=== PATIENT | male | born 1950 | race Caucasian/White ===

== ENCOUNTER 2018-02-04 08:46 | Inpatient (IN) | payer MEDICARE, OTHER ==
[2018-02-04] MEDS ORDERED: methylPREDNISolone SOD SUCCI 125 MG/2 ML VIAL IV STA (09:09)
[2018-02-04] MEDS ORDERED: IPRATROPIUM-ALBUTEROL 3 ML NEB INHALATION STA (09:09)
--- NOTE | 2018-02-04 09:11 | ED ---
General Adult HPI - General Chief complaint: Shortness of Breath Stated complaint: SOB Time Seen by Provider: 02/04/18 08:57 Source: patient, family, RN notes reviewed Mode of arrival: wheelchair Limitations: no limitations - History of Present Illness Initial comments: Patient is a pleasant 67-year-old male presenting to the emergency department with difficulty in breathing. Symptoms have progressed with the past several days. Patient does have cough with occasional clear sputum. Symptoms are similar to previous COPD. No chest pain. No leg swelling. No fevers. - Related Data Home Medications Medication Instructions Recorded Confirmed Albuterol Nebulized [Ventolin 2.5 mg INHALATION RT-TID 02/04/18 02/04/18 Nebulized] Benzonatate [Tessalon Perles] 200 mg PO Q8H 02/04/18 02/04/18 Budesonide/Formoterol Fumarate 2 puff INHALATION RT-BID 02/04/18 02/04/18 [Symbicort 160-4.5 Mcg Inhaler] Gabapentin [Neurontin] See Taper PO DIRECTED 02/04/18 02/04/18 Ipratropium/Albuterol Sulfate 1 puff INHALATION RT-TID 02/04/18 02/04/18 [Combivent Respimat Inhaler] Ketorolac 0.5% Ophth Soln [Acular] 1 drops BOTH EYES TID 02/04/18 02/04/18 LORazepam [Ativan] 1 mg PO TID PRN 02/04/18 02/04/18 Ofloxacin 0.3% Ophth Soln [Ocuflox 1 drops RIGHT EYE TID 02/04/18 02/04/18 Ophth Soln] Sertraline [Zoloft] 100 mg PO DAILY 02/04/18 02/04/18 Zolpidem [Ambien] 10 mg PO HS PRN 02/04/18 02/04/18 predniSONE 20 mg PO BID 02/04/18 02/04/18 prednisoLONE ACETATE 1% OPHTH 1 drops BOTH EYES TID 02/04/18 02/04/18 [Pred Forte 1%] Allergies Allergy/AdvReac Type Severity Reaction Status Date / Time No Known Allergies Allergy Verified 02/04/18 09:17 Review of Systems ROS Statement: Those systems with pertinent positive or pertinent negative responses have been documented in the HPI. ROS Other: All systems not noted in ROS Statement are negative. Constitutional: Denies: fever Eyes: Denies: eye pain ENT: Denies: ear pain Respiratory: Reports: cough, dyspnea Cardiovascular: Denies: chest pain Endocrine: Reports: fatigue Gastrointestinal: Denies: abdominal pain Genitourinary: Denies: dysuria Musculoskeletal: Denies: back pain Skin: Denies: rash Neurological: Denies: weakness Past Medical History Past Medical History: COPD, Hyperlipidemia, Sleep Apnea/CPAP/BIPAP Additional Past Medical History / Comment(s): RA, sepsis from pneumonia in October 2017 History of Any Multi-Drug Resistant Organisms: None Reported Additional Past Surgical History / Comment(s): cataract sx, left knee sx Past Psychological History: Anxiety, Depression Smoking Status: Former smoker Past Alcohol Use History: Occasional Past Drug Use History: None Reported General Exam Limitations: no limitations General appearance: alert Head exam: Present: atraumatic Eye exam: Present: normal appearance, PERRL ENT exam: Present: normal oropharynx Neck exam: Present: normal inspection Respiratory exam: Present: wheezes, rhonchi Cardiovascular Exam: Present: tachycardia GI/Abdominal exam: Present: soft. Absent: tenderness Extremities exam: Present: normal inspection. Absent: pedal edema, calf tenderness Neurological exam: Present: alert Psychiatric exam: Present: normal affect, normal mood Skin exam: Present: normal color Course Vital Signs 02/04/18 02/04/18 02/04/18 08:48 09:02 09:05 Temperature 97.8 F Pulse Rate 117 H 112 H Respiratory 24 20 20 Rate Blood Pressure 115/66 128/78 O2 Sat by Pulse 73 L 95 Oximetry 02/04/18 02/04/18 02/04/18 09:14 09:34 09:46 Temperature 100.8 F H Pulse Rate 108 H 109 H Respiratory Rate Blood Pressure O2 Sat by Pulse Oximetry - Reevaluation(s) Reevaluation #1: 02/04/18 10:17 Patient does meet sepsis criteria diagnosed at 10:17 AM. Blood culture and lactic acid have been ordered. IV antibiotics will be ordered. EKG Findings - EKG Comments: EKG Findings:: Sinus tachycardia 113. [place] 126. QRS 84. QT 332. QTC 455. Right axis. Low QRS voltage. No acute ST change. Medical Decision Making - Medical Decision Making Patient reevaluated and somewhat improved. Patient still appears somewhat short of breath. Patient states he does feel much better than when he arrived. Case was discussed in detail with Dr. jacobson, who will admit for Dr. Cheema. - Lab Data Result diagrams: 02/04/18 09:15 02/04/18 09:15 Lab Results 02/04/18 02/04/18 02/04/18 Range/Units 09:15 09:15 09:15 WBC 13.7 H (3.8-10.6) k/uL RBC 4.39 (4.30-5.90) m/uL Hgb 13.9 (13.0-17.5) gm/dL Hct 41.9 (39.0-53.0) % MCV 95.5 (80.0-100.0) fL MCH 31.6 (25.0-35.0) pg MCHC 33.1 (31.0-37.0) g/dL RDW 14.6 (11.5-15.5) % Plt Count 368 (150-450) k/uL Neutrophils % 82 % Lymphocytes % 8 % Monocytes % 7 % Eosinophils % 2 % Basophils % 1 % Neutrophils # 11.2 H (1.3-7.7) k/uL Lymphocytes # 1.0 (1.0-4.8) k/uL Monocytes # 0.9 (0-1.0) k/uL Eosinophils # 0.3 (0-0.7) k/uL Basophils # 0.1 (0-0.2) k/uL PT 10.4 (9.0-12.0) sec INR 1.1 (<1.2) APTT 22.0 (22.0-30.0) sec Sodium 136 L (137-145) mmol/L Potassium 4.1 (3.5-5.1) mmol/L Chloride 99 (98-107) mmol/L Carbon Dioxide 25 (22-30) mmol/L Anion Gap 12 mmol/L BUN 22 H (9-20) mg/dL Creatinine 0.72 (0.66-1.25) mg/dL Est GFR (CKD-EPI)AfAm >90 (>60 ml/min/1.73 sqM) Est GFR (CKD-EPI)NonAf >90 (>60 ml/min/1.73 sqM) Glucose 113 H (74-99) mg/dL Plasma Lactic Acid Steven (0.7-2.0) mmol/L Calcium 9.3 (8.4-10.2) mg/dL Total Bilirubin 0.5 (0.2-1.3) mg/dL AST 25 (17-59) U/L ALT 38 (21-72) U/L Alkaline Phosphatase 93 (38-126) U/L Total Protein 6.2 L (6.3-8.2) g/dL Albumin 3.5 (3.5-5.0) g/dL 02/04/18 Range/Units 09:15 WBC (3.8-10.6) k/uL RBC (4.30-5.90) m/uL Hgb (13.0-17.5) gm/dL Hct (39.0-53.0) % MCV (80.0-100.0) fL MCH (25.0-35.0) pg MCHC (31.0-37.0) g/dL RDW (11.5-15.5) % Plt Count (150-450) k/uL Neutrophils % % Lymphocytes % % Monocytes % % Eosinophils % % Basophils % % Neutrophils # (1.3-7.7) k/uL Lymphocytes # (1.0-4.8) k/uL Monocytes # (0-1.0) k/uL Eosinophils # (0-0.7) k/uL Basophils # (0-0.2) k/uL PT (9.0-12.0) sec INR (<1.2) APTT (22.0-30.0) sec Sodium (137-145) mmol/L Potassium (3.5-5.1) mmol/L Chloride (98-107) mmol/L Carbon Dioxide (22-30) mmol/L Anion Gap mmol/L BUN (9-20) mg/dL Creatinine (0.66-1.25) mg/dL Est GFR (CKD-EPI)AfAm (>60 ml/min/1.73 sqM) Est GFR (CKD-EPI)NonAf (>60 ml/min/1.73 sqM) Glucose (74-99) mg/dL Plasma Lactic Acid Steven 0.8 (0.7-2.0) mmol/L Calcium (8.4-10.2) mg/dL Total Bilirubin (0.2-1.3) mg/dL AST (17-59) U/L ALT (21-72) U/L Alkaline Phosphatase (38-126) U/L Total Protein (6.3-8.2) g/dL Albumin (3.5-5.0) g/dL - Radiology Data Radiology results: image reviewed (Chest x-ray shows COPD. Interstitial lung disease.) Critical Care Time Critical Care Time: Yes Total Critical Care Time: 32 Disposition Clinical Impression: Acute exacerbation of chronic obstructive airways disease, Sepsis Disposition: ADMITTED IP TO THIS HOSP Is patient prescribed a controlled substance at d/c from ED?: No Referrals: Marina Cheema MD [Primary Care Provider] - 1-2 days Decision Time: 10:19
[2018-02-04 09:40] LABS: INR 1.1 (<1.2); Prothrombin Time 10.4 sec (9.0-12.0)
[2018-02-04 09:42] LABS: Basophils # (A) 0.1 k/uL (0-0.2); Basophils % (A) 1 %; Eosinophils # (A) 0.3 k/uL (0-0.7); Eosinophils % (A) 2 %; HCT 41.9 % (39.0-53.0); HGB 13.9 gm/dL (13.0-17.5); Lymphocytes % (A) 8 %; MCH 31.6 pg (25.0-35.0); MCHC 33.1 g/dL (31.0-37.0); MCV 95.5 fL (80.0-100.0); Mean Platelet Volume 6.7; Monocytes # (A) 0.9 k/uL (0-1.0); Monocytes % (A) 7 %; Neutrophils # (A) 11.2 k/uL (1.3-7.7); Neutrophils % (A) 82 %; Platelet Count 368 k/uL (150-450); RBC 4.39 m/uL (4.30-5.90); RDW 14.6 % (11.5-15.5); WBC 13.7 k/uL (3.8-10.6)
--- NOTE | 2018-02-04 09:42 | XR ---
EXAMINATION TYPE: XR chest 2V DATE OF EXAM: 02/04/2018 COMPARISON: NONE HISTORY: Difficulty breathing, cough and COPD TECHNIQUE: Frontal and lateral views of the chest are obtained. FINDINGS: Prominent lung volumes are compatible with COPD. Interstitium is increased. Heart is thoug ht to be enlarged although patient is rotated. Azygos lobe noted incidentally. No evident pneumothora x or pleural effusion. Nodular appearance present in the left upper lobe as well as mid and lower mirella g laterally in the left may be related to callus formation and rib fractures. Difficult to exclude an underlying mass. There are Cardiac leads. IMPRESSION: Prior rib fractures with nodularity in the left lung, difficult to exclude lung mass. Co mparison with old films would be of benefit if available or alternatively consider short interval fol low-up or chest CT. Suspect COPD, interstitial lung disease. Cardiomegaly. Correlate to exclude pulmo nary venous hypertension and interstitial edema.
[2018-02-04 09:55] LABS: ALT 38 U/L (21-72); AST 25 U/L (17-59); Albumin 3.5 g/dL (3.5-5.0); Alkaline Phosphatase 93 U/L (38-126); Anion Gap 12 mmol/L; Blood Urea Nitrogen 22 mg/dL (9-20); Calcium 9.3 mg/dL (8.4-10.2); Carbon Dioxide 25 mmol/L (22-30); Chloride 99 mmol/L (98-107); Glucose 113 mg/dL (74-99); Potassium 4.1 mmol/L (3.5-5.1); Sodium 136 mmol/L (137-145); Total Bilirubin 0.5 mg/dL (0.2-1.3); Total Protein 6.2 g/dL (6.3-8.2)
[2018-02-04 10:19] LABS: Creatine Kinase MB 0.7 ng/mL (0.0-2.4); Troponin I 0.013 ng/mL (0.000-0.034)
[2018-02-04] MEDS ORDERED: IPRATROPIUM-ALBUTEROL 3 ML NEB INHALATION PRN (10:19)
[2018-02-04] MEDS ORDERED: PNEUMONIA PROTOCOL UTILIZED 1 EACH MISC PO PRN (10:19)
[2018-02-04] MEDS ORDERED: cefTRIAXone IN SWFI 1,000 MG/10 ML SYRINGE IVP STA (10:19)
[2018-02-04] MEDS ORDERED: AZITHROMYCIN 500 MG in SODIUM CHLORIDE 0.9% 250 ML IVPB STA (10:19)
[2018-02-04] MEDS: IPRATROPIUM-ALBUTEROL 3 ML NEB INHALATION SCH ×3 (11:22→19:51)
[2018-02-04] MEDS: SODIUM CHLORIDE 0.9% 1,000 ML IV SCH ×2 (11:47→22:35)
[2018-02-04] MEDS: methylPREDNISolone SOD SUCCI 125 MG/2 ML VIAL IV SCH ×3 (11:48→23:39)
[2018-02-04 12:01] VITALS: BMI 26.6
--- NOTE | 2018-02-04 12:34 | P.CNPUL ---
History of Present Illness Consult date: 02/04/18 Requesting physician: Jerome Contreras Reason for consult: dyspnea, COPD Chief complaint: Shortness of breath, cough congestion History of present illness: This is a very pleasant 67-year-old male patient who follows with Dr. Cheema as her his primary care physician. He has a history of insomnia anxiety and low back pain. He also has a history of interstitial lung disease and chronic obstructive pulmonary disease and follows with Dr. Weaver in our office for the same. His FEV1 value is 46% of predicted. He is maintained on albuterol, Combivent, Symbicort in the outpatient setting. He is both oxygen and steroid dependent on prednisone 10 mg daily. He quit smoking approximate 6 years ago. He was last seen 01/10/2018 at that time his COPD he had been under fairly good control. He presented here to the emergency room however after this past week having increasing shortness of breath, cough, productive clear sputum. No fever chills or night sweats. He was having oxygen saturations in the 70s on 2 L/m per nasal cannula. Currently in the low 90s on 4 L/m per nasal cannula. No fever, chills or night sweats. White count 13.7. Hemoglobin 13.9. Creatinine 0.72. He is seen today in consultation on the regular medical floor. He is awake and alert in no acute distress. His only complaint is that of fatigue as he had a difficult night last night. He is fairly comfortable at rest. He is quite dyspneic on minimal exertion. He has been initiated on DuoNeb inhalations, IV Solu-Medrol and antibiotics in the form of ceftriaxone and azithromycin. Review of Systems Constitutional: Reports fatigue Eyes: denies blurred vision (Recent cataract surgery.), denies decreased vision Ears: bilateral: decreased hearing Ears, nose, mouth and throat: Denies headache, Denies sore throat Cardiovascular: Reports dyspnea on exertion, Reports shortness of breath Respiratory: Reports cough with sputum, Reports dyspnea, Reports home oxygen, Reports wheezing Gastrointestinal: Denies abdominal pain, Denies diarrhea, Denies nausea, Denies vomiting Genitourinary: Reports as per HPI Musculoskeletal: Reports low back pain Integumentary: Denies pruritus, Denies rash Neurological: Denies numbness, Denies weakness Psychiatric: Denies anxiety, Denies depression Endocrine: Denies fatigue, Denies weight change Past Medical History Past Medical History: COPD, Hyperlipidemia, Pneumonia, Rheumatoid Arthritis (RA) , Sleep Apnea/CPAP/BIPAP Additional Past Medical History / Comment(s): Pneumonia with sepsis twice-2017 and in 2016, PATTY with no device (cannot tolerate), recently injured low back-saw Dr. Dye and is to have a MRI on 02/06/18, home O2 at 2-3 L/NC prn, rheumatoid arthritis in bilateral hips,knees hands and back. History of Any Multi-Drug Resistant Organisms: None Reported Past Surgical History: Orthopedic Surgery Additional Past Surgical History / Comment(s): bilateral cataract removals with lens implants, left knee arthroscopy, colonoscopy. Past Anesthesia/Blood Transfusion Reactions: No Reported Reaction Past Psychological History: Anxiety, Depression Additional Psychological History / Comment(s): Pt resides with his spouse of 38 yrs. He has home oxygen which he wears prn at 2-3L/NC, mostly at night. He has a nebulizer. He uses no assistive device. He drives. Smoking Status: Former smoker Past Alcohol Use History: Occasional Additional Past Alcohol Use History / Comment(s): Pt started smoking as a teen and quit in 2011. He states he drinks 1-2 beers a day. Past Drug Use History: None Reported - Past Family History Father Family Medical History: Cancer Additional Family Medical History / Comment(s): Father of leukemia. Mother Family Medical History: Dementia, Diabetes Mellitus Additional Family Medical History / Comment(s): Mother is 88yrs old. Medications and Allergies Home Medications Medication Instructions Recorded Confirmed Type Albuterol Nebulized [Ventolin 2.5 mg INHALATION RT-TID 02/04/18 02/04/18 History Nebulized] Benzonatate [Tessalon Perles] 200 mg PO Q8H 02/04/18 02/04/18 History Budesonide/Formoterol Fumarate 2 puff INHALATION RT-BID 02/04/18 02/04/18 History [Symbicort 160-4.5 Mcg Inhaler] Gabapentin [Neurontin] See Taper PO DIRECTED 02/04/18 02/04/18 History Ipratropium/Albuterol Sulfate 1 puff INHALATION RT-TID 02/04/18 02/04/18 History [Combivent Respimat Inhaler] Ketorolac 0.5% Ophth Soln [Acular] 1 drops BOTH EYES TID 02/04/18 02/04/18 History LORazepam [Ativan] 1 mg PO TID PRN 02/04/18 02/04/18 History Ofloxacin 0.3% Ophth Soln [Ocuflox 1 drops RIGHT EYE TID 02/04/18 02/04/18 History Ophth Soln] Sertraline [Zoloft] 100 mg PO DAILY 02/04/18 02/04/18 History Zolpidem [Ambien] 10 mg PO HS PRN 02/04/18 02/04/18 History predniSONE 20 mg PO BID 02/04/18 02/04/18 History prednisoLONE ACETATE 1% OPHTH 1 drops BOTH EYES TID 02/04/18 02/04/18 History [Pred Forte 1%] Allergies Allergy/AdvReac Type Severity Reaction Status Date / Time No Known Allergies Allergy Verified 02/04/18 09:17 Physical Exam Vitals: Vital Signs Temp Pulse Pulse Resp BP BP Pulse Ox 02/04/18 11:39 108 H 02/04/18 11:35 98.1 F 74 20 119/48 91 L 02/04/18 11:26 100 92 L 02/04/18 11:01 98 18 123/71 98 02/04/18 09:46 109 H 02/04/18 09:34 108 H 02/04/18 09:14 100.8 F H 02/04/18 09:05 112 H 20 128/78 95 02/04/18 09:02 20 02/04/18 08:48 97.8 F 117 H 24 115/66 73 L Intake and Output 02/03/18 02/04/18 02/04/18 22:59 06:59 14:59 Other: Weight 74.843 kg - Constitutional General appearance: average body habitus - EENT Eyes: EOMI, PERRLA ENT: hard of hearing Ears: bilateral: normal - Neck Neck: normal ROM Carotids: bilateral: upstroke normal Thyroid: bilateral: normal size - Respiratory Respiratory: bilateral: diminished, rales, wheezing, prolonged expiration - Cardiovascular Rhythm: regular Heart sounds: normal: S1, S2 - Gastrointestinal General gastrointestinal: no organomegaly, soft, no tenderness - Neurologic Neurologic: CNII-XII intact - Musculoskeletal Musculoskeletal: gait normal, generalized weakness - Psychiatric Psychiatric: A&O x's 3, appropriate affect, intact judgment & insight Results - Laboratory Findings CBC and BMP: 02/04/18 09:15 02/04/18 09:15 PT/INR, D-dimer PT 10.4 sec (9.0-12.0) 02/04/18 09:15 INR 1.1 (<1.2) 02/04/18 09:15 Abnormal lab findings: Abnormal Labs 02/04/18 02/04/18 02/04/18 09:15 09:15 09:15 WBC 13.7 H Neutrophils # 11.2 H Sodium 136 L BUN 22 H Glucose 113 H Total Creatine Kinase 28 L Total Protein 6.2 L - Diagnostic Findings Chest x-ray: image reviewed Assessment and Plan Assessment: Impression: #1 Acute on chronic hypoxic respiratory failure secondary to an acute exacerbation of chronic obstructive pulmonary disease. #2 Severe oxygen-dependent, steroid-dependent chronic obstructive pulmonary disease. FEV1 value of 46% of predicted. #3 Interstitial lung disease. #4 Anxiety. #5 Low back pain. #6 Remote history of chronic tobacco dependence. Plan: The patient was seen and evaluated by Dr. Santos. Chest x-ray labs were reviewed. The patient may require a CT scan of the chest for further evaluation. In the interim, we'll treat him for his COPD exacerbation. IV Solu -Medrol, DuoNeb inhalations, add Symbicort, empiric antibiotics. Titrate down the FiO2 well maintain O2 saturations greater than 88%. At heparin for DVT prophylaxis. Protonix for GI prophylaxis. We will continue to follow and make further recommendations based on his clinical status. I, the cosigning physician, performed a history & physical examination of the patient. Lungs sounds bilateral end expiratory wheeze, coarse crackles in the bases. Maintaining good O2 saturations in the 90s on 4 L/m per nasal cannula. I discussed the assessment and plan of care with my nurse practitioner, Priscilla Mike. I attest to the above note as dictated by her. Time with Patient: Greater than 30
--- NOTE | 2018-02-04 14:57 | CT ---
EXAMINATION TYPE: CT chest wo con DATE OF EXAM: 02/04/2018 COMPARISON: NONE HISTORY: SOB, ILD CT DLP: 572.7 mGycm, Automated exposure control for dose reduction was used. CONTRAST: None TECHNIQUE: Axial images were obtained at 1 mm thick sections at 10 mm intervals. This will limit po rtions of the examination which may not be visualized within the [id number]. Images were obtained in the prone and supine views. FINDINGS: Portion of the thyroid visualized is normal. There are increased lung markings present com patible some pulmonary fibrosis. Emphysematous changes are present. There is a calcification mid righ t lung measuring 0.6 cm periphery. Some patchy increased densities in the periphery of the left lower lobe, series 8 images 22-23. No enlarged mediastinal or hilar adenopathy is evident. The ascending aorta diameter at the level o f the main pulmonary artery is 3.7 cm. The main pulmonary artery diameter at the bifurcation is 3.7 cm. Some coronary artery calcifications present. Some calcification in the right hilar lymph node is present. Limited CT sections are obtained through the upper abdomen. Abdomen is essentially unremarkable. No significant change between prone and supine imaging is evident. IMPRESSIONS: 1. Pulmonary fibrosis. 2. Emphysema. 3. Monitoring chest CT can be performed 6 months. Follow-up of the liver is increased recommended.
[2018-02-04] MEDS ORDERED: LORazepam 1 MG TAB PO PRN (17:06)
[2018-02-04] MEDS: BENZONATATE 100 MG CAP PO SCH (17:52)
[2018-02-04] MEDS: KETOROLAC 0.5% OPHTH DROPS 5 ML BTL BOTH EYES SCH ×2 (17:52→20:51)
[2018-02-04] MEDS: prednisoLONE ACETATE 1% OPHTH DROPS 5 ML BTL BOTH EYES SCH ×2 (17:54→20:52)
[2018-02-04] MEDS: OFLOXACIN 0.3% OPHTH DROPS 5 ML BOTTLE RIGHT EYE SCH ×2 (17:54→20:51)
[2018-02-04] MEDS: SYMBICORT 160-4.5 MCG INHALER INHALATION SCH (19:51)
[2018-02-04] MEDS ORDERED: SYMBICORT 160-4.5 MCG INHALER INHALATION SCH (20:00)
[2018-02-04] MEDS ORDERED: ZOLPIDEM 10 MG TAB PO PRN (21:00)
[2018-02-04] MEDS ORDERED: GABAPENTIN 300 MG CAP PO SCH (21:00)
[2018-02-04 22:54] VITALS: RESP 16
--- NOTE | 2018-02-04 23:30 | HP ---
HISTORY AND PHYSICAL DATE OF ADMISSION: 02/04/2018 DATE OF SERVICE: 02/04/2018 PRESENTING COMPLAINT: Short of breath and wheezing. HISTORY OF PRESENTING COMPLAINT: This is a very pleasant 67-year-old patient of Dr. 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 Chronic stable medical conditions include hyperlipidemia, rheumatoid arthritis, obstructive sleep apnea, on home oxygen 2 L, anxiety, depression, rheumatoid arthritis. The patient presents with worsening short of breath, cough, clear sputum, and wheezing, getting very restless at rest. Admitted for the same. Appetite has been okay. No nausea, vomiting. No chest pain. Started on breathing treatments and steroids to which he is feeling a shade better. REVIEW OF SYSTEMS: CONSTITUTIONAL: Weak and tired. HEENT: As above. RESPIRATORY: As above. CARDIOVASCULAR: None. GASTROINTESTINAL: None. GENITOURINARY: None. MUSCULOSKELETAL: in multiple joints. DERMATOLOGICAL: None. HEMATOLOGICAL: None. LYMPHATICS: None. PSYCHIATRY: Some anxiety. NEUROLOGICAL: None. PAST MEDICAL HISTORY: COPD, hyperlipidemia, rheumatoid arthritis, obstructive sleep apnea, does not use any device. Some low back pain. Seen by Dr. Dye. Due for MRI on 02/06/2018, home oxygen 2-3 L, rheumatoid arthritis bilateral multiple joints. PAST SURGICAL HISTORY: Bilateral cataract removal, lens implant, left knee arthroscopy, colonoscopy. SOCIAL HISTORY: . Drinks 1 or 2 beers a day. Smoked for close to 42 years. Stopped in 2011. Alcohol occasional. FAMILY HISTORY: Father of leukemia. HOME MEDICATIONS: 1. Ambien 10 mg at bedtime p.r.n. 2. Ventolin 2.5 t.i.d. 3. Neurontin taper. 4. Combivent 1 puff t.i.d. 5. Symbicort 2 puffs T b.i.d. 6. Prednisone 20 mg b.i.d. 7. Zoloft 100 mg p.o. daily. 8. Acular 1 drop to both eyes t.i.d. 9. Tessalon Perles 200 mg q.8. 10.Prednisone Forte 1% 1 drop to both eyes t.i.d. 11.Ativan 1 mg p.o. t.i.d. p.r.n. 12.Ocuflox 0.3% 1 drop to right eye t.i.d. ALLERGIES: None. PHYSICAL EXAMINATION: Temperature 97.9, pulse 89, respirations 22, blood pressure 113/71, pulse ox 96% on 4 L. The patient also had a temperature 100.8 and pulse up to 112, and the patient's pulse ox initial was 73% on 2.5 L. GENERAL APPEARANCE: Resting in bed, short of breath. EYES: Pupils are equal. Conjunctivae are normal. HEENT: External appearance of ears and nose normal. Oral cavity normal. NECK: JVD not raised. Mass not palpable. Respiratory effort increased. Accessory muscles are working. The patient not able to speak in full sentences. LUNGS: Diminished breath sounds, prolonged expiration and wheezing. CARDIOVASCULAR: First and second sounds normal. No edema. ABDOMEN: Soft, nontender. Liver and spleen not palpable. LYMPHATICS: No lymph node palpable in the neck or axillae. PSYCHIATRY: Alert and oriented x3. Mood and affect anxious-appearing. NEUROLOGICAL: Pupils equal. Cranial nerves grossly intact. Power and sensation grossly intact. INVESTIGATIONS: White count 17.7, hemoglobin 13.9, potassium 4.1, BUN 22, creatinine 0.72. EKG sinus tachycardia. Chest x-ray shows some interstitial lung disease, evidence of pulmonary venous hypertension. Chest CT shows some pulmonary fibrosis, emphysema. ASSESSMENT: 1. Acute severe chronic obstructive pulmonary disease exacerbation, probably from viral tracheobronchitis, cannot rule out pneumonia. 2. Pulmonary fibrosis. 3. Acute hypoxic respiratory failure present on admission. 4. Chronic hypoxic respiratory failure. 5. Chronic obstructive pulmonary disease in an ex-smoker. 6. Hyperlipidemia. 7. Bilateral rheumatoid arthritis. 8. Obstructive sleep apnea, does not use a CPAP machine. 9. Chronic hypoxic respiratory failure, underlying chronic obstructive pulmonary disease. 10.Anxiety and depression, not otherwise specified. PLAN: The patient is put on DuoNeb, nebulized bronchodilator and IV steroids. Also put the patient on nebulized bronchodilators. Home medications are resumed. Care was discussed with the patient. Pulmonary was consulted. [id number] / IJN: [id number] /
[2018-02-05] MEDS: BENZONATATE 100 MG CAP PO SCH ×2 (01:25→08:48)
[2018-02-05] MEDS: IPRATROPIUM-ALBUTEROL 3 ML NEB INHALATION SCH ×3 (04:43→11:11)
[2018-02-05] MEDS: methylPREDNISolone SOD SUCCI 125 MG/2 ML VIAL IV SCH ×2 (06:27→12:42)
[2018-02-05 06:35] VITALS: BP 101/59; TEMP 97.3
[2018-02-05] MEDS: SYMBICORT 160-4.5 MCG INHALER INHALATION SCH (07:22)
[2018-02-05] MEDS ORDERED: BUDESONIDE 1 MG/2 ML NEBU INHALATION SCH (08:00)
[2018-02-05 08:14] VITALS: PULSE 86
[2018-02-05] MEDS: prednisoLONE ACETATE 1% OPHTH DROPS 5 ML BTL BOTH EYES SCH (08:49)
[2018-02-05] MEDS: OFLOXACIN 0.3% OPHTH DROPS 5 ML BOTTLE RIGHT EYE SCH (08:50)
[2018-02-05] MEDS: KETOROLAC 0.5% OPHTH DROPS 5 ML BTL BOTH EYES SCH (08:50)
[2018-02-05] MEDS ORDERED: SERTRALINE 100 MG TAB PO SCH (09:00)
[2018-02-05] MEDS ORDERED: AZITHROMYCIN 500 MG TAB PO SCH (09:00)
[2018-02-05] MEDS ORDERED: cefTRIAXone IN SWFI 1,000 MG/10 ML SYRINGE IVP SCH (09:00)
[2018-02-05] MEDS ORDERED: ENOXAPARIN 40 MG/0.4 ML SYRINGE SQ SCH (09:00)
[2018-02-05] MEDS: SODIUM CHLORIDE 0.9% 1,000 ML IV SCH (09:25)
--- NOTE | 2018-02-05 13:55 | P.PN ---
Subjective Progress Note Date: 02/05/18 Principal diagnosis: Acute on chronic hypoxic respiratory failure secondary to an acute exacerbation of COPD This is a very pleasant 67-year-old male patient who follows with Dr. Cheema as her his primary care physician. He has a history of insomnia anxiety and low back pain. He also has a history of interstitial lung disease and chronic obstructive pulmonary disease and follows with Dr. Weaver in our office for the same. His FEV1 value is 46% of predicted. He is maintained on albuterol, Combivent, Symbicort in the outpatient setting. He is both oxygen and steroid dependent on prednisone 10 mg daily. He quit smoking approximate 6 years ago. He was last seen 01/10/2018 at that time his COPD he had been under fairly good control. He presented here to the emergency room however after this past week having increasing shortness of breath, cough, productive clear sputum. No fever chills or night sweats. He was having oxygen saturations in the 70s on 2 L/m per nasal cannula. Currently in the low 90s on 4 L/m per nasal cannula. No fever, chills or night sweats. White count 13.7. Hemoglobin 13.9. Creatinine 0.72. He is seen today in consultation on the regular medical floor. He is awake and alert in no acute distress. His only complaint is that of fatigue as he had a difficult night last night. He is fairly comfortable at rest. He is quite dyspneic on minimal exertion. He has been initiated on DuoNeb inhalations, IV Solu-Medrol and antibiotics in the form of ceftriaxone and azithromycin. On 02/05/2018 patient seen again in follow-up on medical surgical floor. Remains on folate liters per nasal cannula with O2 sat 97%, he is afebrile, vital signs are stable, respirations nonlabored, patient's CT chest showed moderate fibrosis, emphysema, no enlarged mediastinal or hilar adenopathy. No new labs today, patient continues on Zithromax and Rocephin, nebulized bronchodilators, and IV Solu-Medrol, he reports improvement with his breathing , patient states he is back to his baseline, and is requesting to go home today. Lung sounds are positive for a few scattered crackles, but no wheezes or rhonchi, no significant chest congestion, vitals are stable. Blood cultures negative at the 24-hour aye, sputum cultures pending. Clinically patient has significantly improved, and is stable for discharge home today. Objective - Vital Signs Vital signs: Vital Signs Temp 97.3 F L 02/05/18 06:35 Pulse 86 02/05/18 07:35 Resp 16 02/05/18 06:35 BP 101/59 02/05/18 06:35 Pulse Ox 97 02/05/18 06:35 Intake & Output 02/04/18 02/05/18 02/05/18 18:59 06:59 18:59 Weight 74.843 kg Other: Voiding Method Toilet Urinal # Voids 1 1 - Exam - Constitutional General appearance: average body habitus - EENT Eyes: EOMI, PERRLA ENT: hard of hearing Ears: bilateral: normal - Neck Neck: normal ROM Carotids: bilateral: upstroke normal Thyroid: bilateral: normal size - Respiratory Respiratory: bilateral: diminished, minimal scattered crackles - Cardiovascular Rhythm: regular Heart sounds: normal: S1, S2 - Gastrointestinal General gastrointestinal: no organomegaly, soft, no tenderness - Neurologic Neurologic: CNII-XII intact - Musculoskeletal Musculoskeletal: gait normal, generalized weakness - Psychiatric Psychiatric: A&O x's 3, appropriate affect, intact judgment & insight - Labs CBC & Chem 7: 02/04/18 09:15 02/04/18 09:15 Labs: Microbiology - Last 24 Hours (Table) 02/04/18 19:36 Gram Stain - Preliminary Sputum Sputum Culture - Preliminary Assessment and Plan Plan: Assessment: #1 Acute on chronic hypoxic respiratory failure secondary to an acute exacerbation of chronic obstructive pulmonary disease. #2 Severe oxygen-dependent, steroid-dependent chronic obstructive pulmonary disease. FEV1 value of 46% of predicted. #3 Interstitial lung disease. #4 Anxiety. #5 Low back pain. #6 Remote history of chronic tobacco dependence. Plan: CT chest results have been reviewed, and showed emphysema, and pulmonary fibrosis without adenopathy. Clinically patient is improving, he states he is back to his baseline, breathing easier today, no fever or chills, no worsening dyspnea, no worsening chest congestion. Patient is stable for discharge home today from pulmonary standpoint, follow-up with Dr. Dr. Weaver in the outpatient setting within 7 days. I performed a history & physical examination of the patient and discussed their management with my nurse practitioner, Stella Powers. I reviewed the nurse practitioner's note and agree with the documented findings and plan of care. Lung sounds are diminished, will minimal rales. The findings and the impression was discussed with the patient. I attest to the documentation by the nurse practitioner. Time with Patient: Less than 30
--- NOTE | 2018-02-07 20:12 | DS ---
DISCHARGE SUMMARY DATE OF ADMISSION: 02/04/2018. DATE OF DISCHARGE: 02/07/2018 FINAL DIAGNOSES: 1. Acute severe chronic obstructive pulmonary disease exacerbation, possibly viral tracheobronchitis. 2. Chronic pulmonary fibrosis. 3. Acute hypoxic respiratory failure, present on admission from chronic obstructive pulmonary disease exacerbation. 4. Chronic hypoxic respiratory failure from chronic obstructive pulmonary disease. 5. Hyperlipidemia. 6. Bilateral rheumatoid arthritis. 7. Obstructive sleep apnea, does not use CPAP. 8. Anxiety and depression, not otherwise specified. CONSULTATION: Dr. Santos. HOSPITAL COURSE: This patient presented with COPD exacerbation, doing much better at the time of discharge. The patient was treated with bronchodilators, steroids. EXAM: LUNGS: Decreased breath sounds. CARDIOVASCULAR: First and second sounds normal. The patient did have a CT of the chest that revealed pulmonary fibrosis. The patient is okayed by Pulmonary to go home. DISCHARGE MEDICATIONS: 1. Ventolin 2.5 nebulizer t.i.d. 2. Tessalon Perles 200 mg q.8. 3. Symbicort 160/4.5, 2 puffs b.i.d. 4. Neurontin. 5. Combivent. 6. Respimat 1 puff t.i.d. 7. Acular 0.5% 1 drop to both eyes t.i.d. 8. Ativan 1 mg p.o. t.i.d. p.r.n. 9. Ocuflox 1 drop right eye t.i.d. 10.Zoloft 100 mg p.o. daily. 11.Ambien 10 mg q.h.s. p.r.n. 12.Prednisone taper. 13.Prednisolone 1% 1 drop to both eyes t.i.d. 14.Zithromax 100 g p.o. daily 4 tablets. FOLLOWUP: With Dr. Marina Cheema in a week. Follow up with Dr. Weaver on 02/18/2018. EXAMINATION: Decreased breath sounds, minimal wheezing. CARDIOVASCULAR: First and second sounds normal. PSYCH: AO x3. MMODL / IJN: [id number] /
== END 2018-02-05 15:35 | disposition home or self-care (01) | DRG 190 ==
LOC: EC 08:46 → 4MS4W 10:19
PROVIDERS: ADMIT Hospitalist; ATTEND Hospitalist
DX: J44.1 Chronic obstructive pulmonary disease with (acute) exacerbation (principal); J96.21 Acute and chronic respiratory failure with hypoxia; J20.8 Acute bronchitis due to other specified organisms; E78.5 Hyperlipidemia, unspecified; F32.9 Major depressive disorder, single episode, unspecified; F41.9 Anxiety disorder, unspecified; G47.33 Obstructive sleep apnea (adult) (pediatric); J84.10 Pulmonary fibrosis, unspecified; M06.9 Rheumatoid arthritis, unspecified; Z79.51 Long term (current) use of inhaled steroids; Z79.52 Long term (current) use of systemic steroids; Z79.899 Other long term (current) drug therapy; Z80.6 Family history of leukemia; Z83.3 Family history of diabetes mellitus; Z87.891 Personal history of nicotine dependence; Z98.42 Cataract extraction status, left eye; Z98.41 Cataract extraction status, right eye; Z96.1 Presence of intraocular lens; Z99.81 Dependence on supplemental oxygen
CPT/HCPCS: 36415; 71046; 71250; 80053; 82550; 82553; 83605; 84484; 85025; 85610; 85730; 87040; 87070; 87077; 87186; 87205; 93005; 94640; 94760; 96374; 99291

== ENCOUNTER 2019-01-22 12:37 | Inpatient (IN) | payer MEDICARE, OTHER ==
[2019-01-22] MEDS ORDERED: IPRATROPIUM-ALBUTEROL 3 ML NEB INHALATION STA (13:17)
[2019-01-22 13:30] LABS: ALT 30 U/L (21-72); AST 20 U/L (17-59); Albumin 3.3 g/dL (3.5-5.0); Alkaline Phosphatase 90 U/L (38-126); Amylase 43 U/L (30-110); Anion Gap 7 mmol/L; Basophils % (A) 0 %; Blood Urea Nitrogen 27 mg/dL (9-20); Calcium 9.5 mg/dL (8.4-10.2); Carbon Dioxide 32 mmol/L (22-30); Chloride 93 mmol/L (98-107); Eosinophils # (A) 0.1 k/uL (0-0.7); Eosinophils % (A) 1 %; Glucose 147 mg/dL (74-99); HCT 45.7 % (39.0-53.0); HGB 14.9 gm/dL (13.0-17.5); Lipase 93 U/L (23-300); Lymphocytes # (A) 0.6 k/uL (1.0-4.8); Lymphocytes % (A) 4 %; MCH 30.5 pg (25.0-35.0); MCHC 32.5 g/dL (31.0-37.0); MCV 93.8 fL (80.0-100.0); Mean Platelet Volume 6.5; Monocytes # (A) 0.3 k/uL (0-1.0); Monocytes % (A) 2 %; Neutrophils % (A) 93 %; Platelet Count 590 k/uL (150-450); RBC 4.87 m/uL (4.30-5.90); RDW 15.3 % (11.5-15.5); Sodium 132 mmol/L (137-145); Total Bilirubin 0.4 mg/dL (0.2-1.3); Total Protein 6.4 g/dL (6.3-8.2); WBC 16.2 k/uL (3.8-10.6)
[2019-01-22] MEDS ORDERED: SODIUM CHLORIDE 0.9% 500 ML 500 ML IV STA (13:31)
[2019-01-22] MEDS ORDERED: HYDROmorphone 0.5 MG/0.5 ML SYRINGE IVP STA ×2 (13:34→14:47)
--- NOTE | 2019-01-22 13:39 | ED ---
General Adult HPI - General Source: patient, EMS, RN notes reviewed Mode of arrival: EMS Limitations: no limitations <Leonel Mcintosh - Last Filed: 01/22/19 15:42> <Lex Becerra - Last Filed: 01/22/19 15:44> - General Chief complaint: Abdominal Pain Stated complaint: abdominal pain Time Seen by Provider: 01/22/19 12:41 - History of Present Illness Initial comments: 68-year-old male with a past medical history of COPD on 4 L at home, hyperlipidemia, pneumonia with sepsis presents to the emergency department for a chief complaint of abdominal pain. Patient states that he woke up at 2 AM with significant abdominal pain. It is across his entire abdomen. Denies any alleviating or aggravating factors. States that he did have some abdominal pain last week and was seen at [facility], CT was negative at that time. Patient states he also has COPD exacerbation last week and has been more short of breath than normal. Denies any fevers or chills.no history of heart failure but patient does have increased swelling in his legs, started on Lasix 2 days ago by primary care. Patient has no other complaints at this time including shortness of breath, chest pain, nausea or vomiting, headache, or visual changes. (Leoenl Mcintosh) - Related Data Home Medications Medication Instructions Recorded Confirmed LORazepam [Ativan] 1 mg PO TID PRN 02/04/18 01/22/19 Benzonatate [Tessalon Perles] 100 mg PO TID PRN 01/22/19 01/22/19 HYDROcodone/APAP 10-325MG [[place] 1 tab PO Q8H PRN 01/22/19 01/22/19 10-325] Sulfamethoxazole/Trimethoprim 1 tab PO BID 01/22/19 01/22/19 [Bactrim DS 800-160 mg] metroNIDAZOLE [Flagyl] 500 mg PO TID 01/22/19 01/22/19 Previous Rx's Medication Instructions Recorded predniSONE 10 mg PO DAILY #30 tab 02/05/18 Allergies Allergy/AdvReac Type Severity Reaction Status Date / Time amoxicillin AdvReac Nausea & Verified 01/22/19 13:48 Vomiting Review of Systems ROS Other: All systems not noted in ROS Statement are negative. <Leonel Mcintosh - Last Filed: 01/22/19 15:42> ROS Other: All systems not noted in ROS Statement are negative. <Lex Becerra - Last Filed: 01/22/19 15:44> ROS Statement: Those systems with pertinent positive or pertinent negative responses have been documented in the HPI. Past Medical History Past Medical History: COPD, Hyperlipidemia, Pneumonia, Rheumatoid Arthritis (RA), Sleep Apnea/CPAP/BIPAP Additional Past Medical History / Comment(s): Pneumonia with sepsis twice-10/2017 and in 2016, PATTY with no device (cannot tolerate), recently injured low back- saw Dr. Dye and is to have a MRI on 02/06/18, home O2 at 2-3 L/NC prn, rheumatoid arthritis in bilateral hips,knees hands and back. History of Any Multi-Drug Resistant Organisms: None Reported Past Surgical History: Orthopedic Surgery Additional Past Surgical History / Comment(s): bilateral cataract removals with lens implants, left knee arthroscopy, colonoscopy. Past Anesthesia/Blood Transfusion Reactions: No Reported Reaction Past Psychological History: Anxiety, Depression Smoking Status: Former smoker Past Alcohol Use History: Occasional Past Drug Use History: None Reported - Past Family History Father Family Medical History: Cancer Additional Family Medical History / Comment(s): Father of leukemia. Mother Family Medical History: Dementia, Diabetes Mellitus Additional Family Medical History / Comment(s): Mother is 88yrs old. <Leonel Mcintosh - Last Filed: 01/22/19 15:42> General Exam Limitations: no limitations General appearance: alert, in no apparent distress Head exam: Present: atraumatic, normocephalic, normal inspection Eye exam: Present: normal appearance, PERRL, EOMI. Absent: scleral icterus, conjunctival injection ENT exam: Present: normal exam, mucous membranes moist Neck exam: Present: normal inspection, full ROM. Absent: tenderness, meningismus, lymphadenopathy Respiratory exam: Present: normal lung sounds bilaterally. Absent: respiratory distress, wheezes, rales, rhonchi, stridor Cardiovascular Exam: Present: regular rate, normal rhythm, normal heart sounds. Absent: systolic murmur, diastolic murmur, rubs, gallop, clicks GI/Abdominal exam: Present: soft, distended (Abdomen is distended), tenderness (Significant generalized abdominal tenderness with guarding), guarding, normal bowel sounds. Absent: rebound, rigid Neurological exam: Present: alert, oriented X3, CN II-XII intact Psychiatric exam: Present: normal affect, normal mood <Leonel Mcintosh - Last Filed: 01/22/19 15:42> Course <Lex Becerra - Last Filed: 01/22/19 15:44> Vital Signs 01/22/19 01/22/19 01/22/19 12:47 13:22 13:33 Temperature 97.3 F L Pulse Rate 113 H 112 H Respiratory 24 24 Rate Blood Pressure 123/73 O2 Sat by Pulse 87 L 93 L Oximetry 01/22/19 01/22/19 01/22/19 13:40 13:42 15:33 Temperature Pulse Rate 114 H 120 H Respiratory 24 Rate Blood Pressure 116/73 104/71 O2 Sat by Pulse 90 L Oximetry - Reevaluation(s) Reevaluation #1: 01/22/19 15:43 PA supervision: I proceeded [id number] evaluation the patient did discuss the findings with him and his . Patient does present with shortness of breath and abdominal pain. He was seen at [facility] a week ago and found have diverticulosis. He's had progressively worsening pain since 7 however CAT scan today shows evidence of a phlegmon with small area that appears to be early abscess. Small air bubbles noted. Patient also demonstrates decreased breath sounds with expiratory wheezing. I did discuss the case with Dr. David. Dr. Levi will be consulted. Patient will be admitted for inpatient treatment also Dr. Perera will be consulted. (Lex Becerra) EKG Findings - EKG Comments: EKG Findings:: Sinus tachycardia, ventricular rate 113, PT int 130, QTC 466 <Leonel Mcintosh - Last Filed: 01/22/19 15:42> Medical Decision Making - Lab Data Result diagrams: 01/22/19 12:55 01/22/19 12:55 <Leonel Mcintosh - Last Filed: 01/22/19 15:42> - Lab Data Result diagrams: 01/22/19 12:55 01/22/19 12:55 <Lex Becerra - Last Filed: 01/22/19 15:44> - Medical Decision Making C8-year-old male with a past medical history of COPD on 4 L of O2 at home, hyperlipidemia, pneumonia presents to the emergency department for chief pain of abdominal pain. This has been ongoing since last week however worsen s ignificantly early this morning. Patient also has had a COPD exacerbation that started last week, cough has been improving the patient does doesn't shortness of breath. Patient is in the mid 90s on 6 L of O2. Patient tachycardic, likely secondary to pain. He did receive 150 mg of fentanyl and a milligram of Dilaudid. Patient will be receiving another milligram of Dilaudid. Patient did have a CT abdomen and pelvis with contrast which did not show any evidence of abscess at that time. This was done at [facility]. Today patient has a white count of 16. Hypermagnesemia noted of 3.2. CO2 noted to be 32, likely secondary to hyperventilation. Chest x-ray shows chronic changes of ILD. CT repeated today does show phlegmon formation with a small amount of ascites in the upper mesentery. Small amount of loculated air external to bowel loop may represent early abscess formation. Patient started on Zosyn. Given 500 and monos of fluids. Patient will be admitted for further management of possible abscess formation and pain management. (Leonel Mcintosh) - Lab Data Lab Results 01/22/19 01/22/19 01/22/19 Range/Units 12:55 12:55 12:55 WBC 16.2 H (3.8-10.6) k/uL RBC 4.87 (4.30-5.90) m/uL Hgb 14.9 (13.0-17.5) gm/dL Hct 45.7 (39.0-53.0) % MCV 93.8 (80.0-100.0) fL MCH 30.5 (25.0-35.0) pg MCHC 32.5 (31.0-37.0) g/dL RDW 15.3 (11.5-15.5) % Plt Count 590 H (150-450) k/uL Neutrophils % 93 % Lymphocytes % 4 % Monocytes % 2 % Eosinophils % 1 % Basophils % 0 % Neutrophils # 15.0 H (1.3-7.7) k/uL Lymphocytes # 0.6 L (1.0-4.8) k/uL Monocytes # 0.3 (0-1.0) k/uL Eosinophils # 0.1 (0-0.7) k/uL Basophils # 0.0 (0-0.2) k/uL PT (9.0-12.0) sec INR (<1.2) APTT (22.0-30.0) sec Sodium 132 L (137-145) mmol/L Potassium 5.0 (3.5-5.1) mmol/L Chloride 93 L (98-107) mmol/L Carbon Dioxide 32 H (22-30) mmol/L Anion Gap 7 mmol/L BUN 27 H (9-20) mg/dL Creatinine 0.78 (0.66-1.25) mg/dL Est GFR (CKD-EPI)AfAm >90 (>60 ml/min/1.73 sqM) Est GFR (CKD-EPI)NonAf >90 (>60 ml/min/1.73 sqM) Glucose 147 H (74-99) mg/dL Plasma Lactic Acid Steven (0.7-2.0) mmol/L Calcium 9.5 (8.4-10.2) mg/dL Magnesium 3.2 H (1.6-2.3) mg/dL Total Bilirubin 0.4 (0.2-1.3) mg/dL AST 20 (17-59) U/L ALT 30 (21-72) U/L Alkaline Phosphatase 90 (38-126) U/L Troponin I (0.000-0.034) ng/mL NT-Pro-B Natriuret Pep pg/mL Total Protein 6.4 (6.3-8.2) g/dL Albumin 3.3 L (3.5-5.0) g/dL Amylase 43 (30-110) U/L Lipase 93 (23-300) U/L 01/22/19 01/22/19 01/22/19 Range/Units 12:55 12:55 12:55 WBC (3.8-10.6) k/uL RBC (4.30-5.90) m/uL Hgb (13.0-17.5) gm/dL Hct (39.0-53.0) % MCV (80.0-100.0) fL MCH (25.0-35.0) pg MCHC (31.0-37.0) g/dL RDW (11.5-15.5) % Plt Count (150-450) k/uL Neutrophils % % Lymphocytes % % Monocytes % % Eosinophils % % Basophils % % Neutrophils # (1.3-7.7) k/uL Lymphocytes # (1.0-4.8) k/uL Monocytes # (0-1.0) k/uL Eosinophils # (0-0.7) k/uL Basophils # (0-0.2) k/uL PT 10.8 (9.0-12.0) sec INR 1.0 (<1.2) APTT 21.2 L (22.0-30.0) sec Sodium (137-145) mmol/L Potassium (3.5-5.1) mmol/L Chloride (98-107) mmol/L Carbon Dioxide (22-30) mmol/L Anion Gap mmol/L BUN (9-20) mg/dL Creatinine (0.66-1.25) mg/dL Est GFR (CKD-EPI)AfAm (>60 ml/min/1.73 sqM) Est GFR (CKD-EPI)NonAf (>60 ml/min/1.73 sqM) Glucose (74-99) mg/dL Plasma Lactic Acid Steven 1.9 (0.7-2.0) mmol/L Calcium (8.4-10.2) mg/dL Magnesium (1.6-2.3) mg/dL Total Bilirubin (0.2-1.3) mg/dL AST (17-59) U/L ALT (21-72) U/L Alkaline Phosphatase (38-126) U/L Troponin I <0.012 (0.000-0.034) ng/mL NT-Pro-B Natriuret Pep pg/mL Total Protein (6.3-8.2) g/dL Albumin (3.5-5.0) g/dL Amylase (30-110) U/L Lipase (23-300) U/L 01/22/19 Range/Units 12:55 WBC (3.8-10.6) k/uL RBC (4.30-5.90) m/uL Hgb (13.0-17.5) gm/dL Hct (39.0-53.0) % MCV (80.0-100.0) fL MCH (25.0-35.0) pg MCHC (31.0-37.0) g/dL RDW (11.5-15.5) % Plt Count (150-450) k/uL Neutrophils % % Lymphocytes % % Monocytes % % Eosinophils % % Basophils % % Neutrophils # (1.3-7.7) k/uL Lymphocytes # (1.0-4.8) k/uL Monocytes # (0-1.0) k/uL Eosinophils # (0-0.7) k/uL Basophils # (0-0.2) k/uL PT (9.0-12.0) sec INR (<1.2) APTT (22.0-30.0) sec Sodium (137-145) mmol/L Potassium (3.5-5.1) mmol/L Chloride (98-107) mmol/L Carbon Dioxide (22-30) mmol/L Anion Gap mmol/L BUN (9-20) mg/dL Creatinine (0.66-1.25) mg/dL Est GFR (CKD-EPI)AfAm (>60 ml/min/1.73 sqM) Est GFR (CKD-EPI)NonAf (>60 ml/min/1.73 sqM) Glucose (74-99) mg/dL Plasma Lactic Acid Steven (0.7-2.0) mmol/L Calcium (8.4-10.2) mg/dL Magnesium (1.6-2.3) mg/dL Total Bilirubin (0.2-1.3) mg/dL AST (17-59) U/L ALT (21-72) U/L Alkaline Phosphatase (38-126) U/L Troponin I (0.000-0.034) ng/mL NT-Pro-B Natriuret Pep 934 pg/mL Total Protein (6.3-8.2) g/dL Albumin (3.5-5.0) g/dL Amylase (30-110) U/L Lipase (23-300) U/L Disposition Is patient prescribed a controlled substance at d/c from ED?: No Time of Disposition: 15:42 <Leonel Mcintosh - Last Filed: 01/22/19 15:42> <Lex Becerra - Last Filed: 01/22/19 15:44> Clinical Impression: Abdominal abscess, Hypermagnesemia, Leukocytosis Disposition: ADMITTED IP TO THIS HOSP Condition: Serious Referrals: Marina Cheema MD [Primary Care Provider] - 1-2 days
[2019-01-22 14:59] LABS: Prothrombin Time 10.8 sec (9.0-12.0)
[2019-01-22 15:00] LABS: Partial Thromboplastin Time 21.2 sec (22.0-30.0)
--- NOTE | 2019-01-22 15:01 | CT ---
EXAMINATION TYPE: CT abdomen pelvis w con DATE OF EXAM: 01/22/2019 COMPARISON: None INDICATION: generalized abdominal pain DLP: 776.7 mGycm, Automated exposure control for dose reduction was used. CONTRAST: 100 mL of Isovue 370. Study performed without Oral Contrast TECHNIQUE: Axial images were obtained from above the diaphragm to the pubic rami in the axial plane a t 5 mm thick sections. Reconstructed images are reviewed on the computer in the coronal plane. FINDINGS: Limited CT sections are obtained the lung bases. The lung bases are clear. Emphysematous and fibros is changes are present at the lung bases. Coronary artery calcification is noted. CT ABDOMEN: There are inflammatory changes within the mid mesentery. Small amount of ascites may be p resent. Small amount of free fluid may be within this area of increased density. Series 201 image 41. This may be loculated and not within the nondependent portion of the abdomen phlegmon formation and early developing abscess should be considered. Small bowel loops within this region are somewhat prom inent. Liver: Normal Spleen: No slight splenic granuloma are present. Pancreas: Normal Adrenal glands: The adrenal glands are normal. Gallbladder: Normal Kidneys: No masses are evident. No hydronephrosis is present. Right pelvic cyst is within the right kidney. No additional cortical renal cysts or masses are evident. Delayed images were obtained thro ugh the kidneys, which remain otherwise unremarkable. Aorta: Vascular calcification is within the aorta. Inferior vena cava: Normal. CT PELVIS: Loops of bowel within the abdomen and pelvis are normal. Diverticular changes are within the sigm oid colon. Appendix: Normal as visualized. Urinary bladder: No suspicious masses. Some diffuse wall thickening is not excluded. There is incompl ete distention causing some limitation. Genitourinary structures: Prostate appears normal Osseous structures: No suspicious lytic or sclerotic lesions. IMPRESSIONS: 1. Phlegmon formation with a small amount of ascites within the upper mesentery. Small amount of loc ulated air external to bowel loops may be present suggesting early abscess formation. 2. Report was called to emergency room VIVIANE Castaneda by Dr. Espinoza by telephone at time of interpretation .
[2019-01-22] MEDS ORDERED: PIPERACILLIN-TAZOBACTAM 3.375 GM in SODIUM CHLORIDE 0.9% 100 ML IVPB STA (15:09)
[2019-01-22] MEDS ORDERED: HYDROmorphone 1 MG/ML 1 ML SYRINGE IVP STA (15:19)
--- NOTE | 2019-01-22 15:35 | XR ---
EXAMINATION TYPE: XR chest 2V DATE OF EXAM: 01/22/2019 COMPARISON: 02/04/2018 HISTORY: Chest pain TECHNIQUE: Frontal and lateral views of the chest are obtained. FINDINGS: There is chronic peripheral predominant fibrosis an interstitial prominence. Focal thicken ing is seen along the pleural surfaces laterally similar to the prior. Underlying emphysematous harris es noted. No new focal consolidation is seen. There is generalized osseous demineralization. Cardia m ediastinal silhouette is upper limits of normal. IMPRESSION: Pulmonary fibrosis and interstitial lung disease or chronic with underlying COPD. No new focal consolidation.
[2019-01-22] MEDS ORDERED: NALOXONE 0.4 MG/ML 1 ML VIAL IV PRN (15:43)
[2019-01-22] MEDS ORDERED: ONDANSETRON 4 MG/2 ML VIAL IVP PRN (15:43)
[2019-01-22] MEDS: SODIUM CHLORIDE 0.9% 1,000 ML IV SCH (16:16)
--- NOTE | 2019-01-22 18:22 | P.GSCN ---
History of Present Illness Consult date: 01/22/19 Reason for Consult: Bowel perforation History of present illness: 68-year-old male has had a one-week history of abdominal pain. He went to [facility] ER last week and had a CAT scan performed and was told he had diverticulosis without diverticulitis. The patient's is also helping with the history. Over the week the patient states he has had progressive increase in discomfort. Today the pain was more severe and came to the hospital for evaluation. Patient describes the pain as being diffuse in nature. Appetite is diminished. Some constipation. No rectal bleeding or melena. Denies fevers or chills. Some nausea but no vomiting. No history of similar events in the past. CAT scan was repeated here and shows significant inflammatory changes in the epigastric region involving the posterior aspect of the proximal transverse colon. There is evidence of pneumoperitoneum around that and inflammatory changes as well with some free fluid. The stomach wall itself appears normal. The patient is on a prednisone taper. Patient has severe COPD and underlying rheumatoid arthritis as well. Previously was on Humira but not recently. Last colonoscopy 5 years ago. Patient is on oxygen at home. Review of Systems The patient denies any acute changes in vision or hearing, no dysphagia or dariel nophagia, no chest pain, no dysuria or hematuria, no headache, no runny nose, no rectal bleeding or melena, no unexplained weight loss Past Medical History Past Medical History: COPD, Hyperlipidemia, Pneumonia, Rheumatoid Arthritis (RA), Sleep Apnea/CPAP/BIPAP Additional Past Medical History / Comment(s): Pneumonia with sepsis twice-10/2017 and in 2016, PATTY with no device (cannot tolerate), recently injured low back-saw Dr. Dye and is to have a MRI on 02/06/18, home O2 at 2-3 L/NC prn, rheumatoid arthritis in bilateral hips,knees hands and back. History of Any Multi-Drug Resistant Organisms: None Reported Past Surgical History: Orthopedic Surgery Additional Past Surgical History / Comment(s): bilateral cataract removals with lens implants, left knee arthroscopy, colonoscopy. Past Anesthesia/Blood Transfusion Reactions: No Reported Reaction Past Psychological History: Anxiety, Depression Smoking Status: Former smoker Past Alcohol Use History: Occasional Past Drug Use History: None Reported - Past Family History Father Family Medical History: Cancer Additional Family Medical History / Comment(s): Father of leukemia. Mother Family Medical History: Dementia, Diabetes Mellitus Additional Family Medical History / Comment(s): Mother is 88yrs old. Medications and Allergies Home Medications Medication Instructions Recorded Confirmed Type LORazepam [Ativan] 1 mg PO TID PRN 02/04/18 01/22/19 History predniSONE 10 mg PO DAILY #30 tab 02/05/18 01/22/19 Rx Benzonatate [Tessalon Perles] 100 mg PO TID PRN 01/22/19 01/22/19 History HYDROcodone/APAP 10-325MG [[place] 1 tab PO Q8H PRN 01/22/19 01/22/19 History 10-325] Sulfamethoxazole/Trimethoprim 1 tab PO BID 01/22/19 01/22/19 History [Bactrim DS 800-160 mg] metroNIDAZOLE [Flagyl] 500 mg PO TID 01/22/19 01/22/19 History Allergies Allergy/AdvReac Type Severity Reaction Status Date / Time amoxicillin AdvReac Nausea & Verified 01/22/19 13:48 Vomiting Surgical - Exam Vital Signs Temp Pulse Resp BP Pulse Ox 97.3 F L 113 H 24 123/73 87 L 01/22/19 12:47 01/22/19 12:47 01/22/19 12:47 01/22/19 12:47 01/22/19 12:47 Physical exam: General: Well-developed, in some distress with shortness of breath and appears uncomfortable HEENT: Normocephalic, sclerae nonicteric Abdomen: Mild distention, diffuse tenderness, voluntary and involuntary guarding present Extremities: Mild edema Neuro: Alert and oriented Results - Labs 01/22/19 12:55 01/22/19 12:55 Abnormal Lab Results - Last 24 Hours (Table) 01/22/19 01/22/19 01/22/19 Range/Units 12:55 12:55 12:55 WBC 16.2 H (3.8-10.6) k/uL Plt Count 590 H (150-450) k/uL Neutrophils # 15.0 H (1.3-7.7) k/uL Lymphocytes # 0.6 L (1.0-4.8) k/uL APTT (22.0-30.0) sec Sodium 132 L (137-145) mmol/L Chloride 93 L (98-107) mmol/L Carbon Dioxide 32 H (22-30) mmol/L BUN 27 H (9-20) mg/dL Glucose 147 H (74-99) mg/dL Magnesium 3.2 H (1.6-2.3) mg/dL Albumin 3.3 L (3.5-5.0) g/dL 01/22/19 Range/Units 12:55 WBC (3.8-10.6) k/uL Plt Count (150-450) k/uL Neutrophils # (1.3-7.7) k/uL Lymphocytes # (1.0-4.8) k/uL APTT 21.2 L (22.0-30.0) sec Sodium (137-145) mmol/L Chloride (98-107) mmol/L Carbon Dioxide (22-30) mmol/L BUN (9-20) mg/dL Glucose (74-99) mg/dL Magnesium (1.6-2.3) mg/dL Albumin (3.5-5.0) g/dL Diabetes panel 01/22/19 Range/Units 12:55 Sodium 132 L (137-145) mmol/L Potassium 5.0 (3.5-5.1) mmol/L Chloride 93 L (98-107) mmol/L Carbon Dioxide 32 H (22-30) mmol/L BUN 27 H (9-20) mg/dL Creatinine 0.78 (0.66-1.25) mg/dL Glucose 147 H (74-99) mg/dL Calcium 9.5 (8.4-10.2) mg/dL AST 20 (17-59) U/L ALT 30 (21-72) U/L Alkaline Phosphatase 90 (38-126) U/L Total Protein 6.4 (6.3-8.2) g/dL Albumin 3.3 L (3.5-5.0) g/dL Calcium panel 01/22/19 Range/Units 12:55 Calcium 9.5 (8.4-10.2) mg/dL Albumin 3.3 L (3.5-5.0) g/dL Pituitary panel 01/22/19 Range/Units 12:55 Sodium 132 L (137-145) mmol/L Potassium 5.0 (3.5-5.1) mmol/L Chloride 93 L (98-107) mmol/L Carbon Dioxide 32 H (22-30) mmol/L BUN 27 H (9-20) mg/dL Creatinine 0.78 (0.66-1.25) mg/dL Glucose 147 H (74-99) mg/dL Calcium 9.5 (8.4-10.2) mg/dL Adrenal panel 01/22/19 Range/Units 12:55 Sodium 132 L (137-145) mmol/L Potassium 5.0 (3.5-5.1) mmol/L Chloride 93 L (98-107) mmol/L Carbon Dioxide 32 H (22-30) mmol/L BUN 27 H (9-20) mg/dL Creatinine 0.78 (0.66-1.25) mg/dL Glucose 147 H (74-99) mg/dL Calcium 9.5 (8.4-10.2) mg/dL Total Bilirubin 0.4 (0.2-1.3) mg/dL AST 20 (17-59) U/L ALT 30 (21-72) U/L Alkaline Phosphatase 90 (38-126) U/L Total Protein 6.4 (6.3-8.2) g/dL Albumin 3.3 L (3.5-5.0) g/dL Assessment and Plan (1) Bowel perforation Narrative/Plan: Patient with a very concerning abdominal examination. CAT scan findings suggest perforation of either colon or stomach. Patient is high risk particularly given his pulmonary status however further observation without exploration is felt to carry higher risk of progressive sepsis and possible mortality. Case was discussed with the ER physician as well as pulmonary. Pulmonary plans to see this patient preoperatively. Patient will be sent back to the intensive care unit after exploration on the ventilator. Exploratory laparotomy with possible bowel resection, possible ostomy is the consent being obtained. Risks of bleeding, infection, abscess, leak, inability to identify perforation site, respiratory failure, cardiac complications, progressive sepsis and re viewed. The patient and his understand and wish to proceed. Current Visit: Yes Status: Acute Code(s): K63.1 - PERFORATION OF INTESTINE (NONTRAUMATIC) SNOMED Code(s): 81673915
[2019-01-22] MEDS ORDERED: HYDROCORTISONE SUCCINATE 100 MG/2 ML VIAL IVP ONE (18:49)
[2019-01-22] MEDS ORDERED: SUCCINYLCHOLINE CHLORIDE 100 MG/5 ML SYR IV ONE (19:01)
[2019-01-22] MEDS ORDERED: fentaNYL (PF) 50 MCG/ML 2 ML AMP ONE (19:01)
[2019-01-22] MEDS ORDERED: HYDROmorphone (PF) 1 MG/ML ONE (19:01)
[2019-01-22] MEDS ORDERED: PROPOFOL 10 MG/ML 20 ML VIAL IV ONE (19:01)
[2019-01-22] MEDS ORDERED: HEPARIN SODIUM,PORCINE 5,000 UNIT/ML 1 ML VIAL ONE (19:01)
[2019-01-22] MEDS ORDERED: ROCURONIUM BROMIDE 10 MG/ML 10 ML VIAL IV ONE (19:01)
[2019-01-22] MEDS ORDERED: MIDAZOLAM 2 MG/2 ML VIAL ONE (19:01)
--- NOTE | 2019-01-22 19:02 | P.CNPUL ---
History of Present Illness Consult date: 01/22/19 Chief complaint: Abdominal pain History of present illness: 68-year-old male patient came into the emergency department with a one-week history of abdominal pain. He initially went to [facility] emergency department with a CAT scan was done and the patient was told to have diverticulosis without diverticulitis. Over the past week, the patient developed progressive worsening his abdominal discomfort and today came into the emergency department having more pain and the pain was rather diffuse in nature. He had diminished appetite, diminished oral intake and he was having no significant bowel movements. No GI bleeding. Denies having any fever or chills. He was nauseated when he was getting progressively more lethargic and weak and short of breath. CAT scan of the abdomen was done in the emergency department and showed significant inflammatory changes in the epigastric region involving posterior aspect of the proximal transverse colon. There was evidence of pneumoperitoneum around that along with some inflammatory changes as well as some free fluid in the abdomen. The stomach itself appeared to be within normal limits. The patient has long-term history of COPD and pulmonary fibrosis. Based on his pulmonary function test in 2017 he has an FVC of 72% and FEV1 of 46% and he has been steroid dependent for the past few years taking prednisone a daily basis. He has also underlying rheumatoid arthritis and previously he was taking immunosuppression with Humira none for now. His oxygen dependent. Blood work showed a white cell count 16.2 with a hemoglobin of 14.9. Platelet count is at 519. He has a BUN of 27 creatinine of 0.7 and lactic acid was at 1.9 with a troponin being less than 0.01. LFTs are all within normal limits. He is tachycardic with temperature 98.2. He was having sinus tachycardia with a heart rate of 120. He is currently on 5 L of oxygen by nasal cannula with a pulse ox of 90%. The patient will be taken to the operating room. He was seen by the surgical team following that I've advised the patient coming back to the intensive care unit for further evaluation and treatment. He may need to be kept intubated overnight. Review of Systems Constitutional: Reports fatigue, Reports fever, Reports lethargy, Reports poor appetite, Reports weakness Eyes: denies blurred vision, denies bulging eye, denies decreased vision Ears: deny: decreased hearing, ear discharge, earache, tinnitus Ears, nose, mouth and throat: Denies headache, Denies sore throat Cardiovascular: Reports decreased exercise tolerance, Reports dyspnea on exertion, Reports edema, Reports shortness of breath Respiratory: Reports dyspnea, Reports home oxygen, Reports wheezing Gastrointestinal: Reports abdominal pain, Reports change in bowel habits, Reports dyspepsia, Reports indigestion, Reports loss of appetite, Reports nausea Genitourinary: Reports as per HPI Musculoskeletal: Reports as per HPI Musculoskeletal: bilateral: ankle swelling, absent: ankle pain, ankle stiffness Integumentary: Denies pruritus, Denies rash Neurological: Reports as per HPI, Reports weakness Psychiatric: Reports as per HPI Endocrine: Reports fatigue Hematologic/Lymphatic: Reports as per HPI Allergic/Immunologic: Reports as per HPI Past Medical History Past Medical History: COPD, Hyperlipidemia, Pneumonia, Rheumatoid Arthritis (RA), Sleep Apnea/CPAP/BIPAP Additional Past Medical History / Comment(s): Pneumonia with sepsis twice-10/2017 and in 2016, PATTY with no device (cannot tolerate), recently injured low back-saw Dr. Dye and is to have a MRI on 02/06/18, home O2 at 2-3 L/NC prn, rheumatoid arthritis in bilateral hips,knees hands and back. History of Any Multi-Drug Resistant Organisms: None Reported Past Surgical History: Orthopedic Surgery Additional Past Surgical History / Comment(s): bilateral cataract removals with lens implants, left knee arthroscopy, colonoscopy. Past Anesthesia/Blood Transfusion Reactions: No Reported Reaction Past Psychological History: Anxiety, Depression Smoking Status: Former smoker Past Alcohol Use History: Occasional Past Drug Use History: None Reported - Past Family History Father Family Medical History: Cancer Additional Family Medical History / Comment(s): Father of leukemia. Mother Family Medical History: Dementia, Diabetes Mellitus Additional Family Medical History / Comment(s): Mother is 88yrs old. Medications and Allergies Home Medications Medication Instructions Recorded Confirmed Type LORazepam [Ativan] 1 mg PO TID PRN 02/04/18 01/22/19 History predniSONE 10 mg PO DAILY #30 tab 02/05/18 01/22/19 Rx Benzonatate [Tessalon Perles] 100 mg PO TID PRN 01/22/19 01/22/19 History HYDROcodone/APAP 10-325MG [[place] 1 tab PO Q8H PRN 01/22/19 01/22/19 History 10-325] Sulfamethoxazole/Trimethoprim 1 tab PO BID 01/22/19 01/22/19 History [Bactrim DS 800-160 mg] metroNIDAZOLE [Flagyl] 500 mg PO TID 01/22/19 01/22/19 History Allergies Allergy/AdvReac Type Severity Reaction Status Date / Time amoxicillin AdvReac Nausea & Verified 01/22/19 13:48 Vomiting Physical Exam Vitals: Vital Signs Temp Pulse Pulse Resp BP BP Pulse Ox 01/22/19 18:09 122 H 24 129/67 90 L 01/22/19 18:04 98.2 F 123 H 22 125/79 94 L 01/22/19 15:33 120 H 24 104/71 90 L 01/22/19 13:42 114 H 01/22/19 13:40 116/73 01/22/19 13:33 112 H 01/22/19 13:22 24 93 L 01/22/19 12:47 97.3 F L 113 H 24 123/73 87 L Intake and Output 01/22/19 01/22/19 01/22/19 06:59 14:59 22:59 Other: Weight 71.668 kg Appearance the patient in [id number] degree of respiratory distress, quite uncomfortable as the patient is having abdominal pain. He has obvious cushingoid features related to chronic steroid use. He also seems to be quite flushed. Head exam was generally normal. There was no scleral icterus or corneal arcus. Mucous membranes were moist. Neck was supple and without jugular venous distension, thyromegaly, or carotid bruits. Carotids were easily palpable bilaterally. There was no adenopathy. The patient is a Mallampati class IV was significant crowding of posterior oropharynx Lungs are diminished bilaterally and the patient has coarse crackles in lung bases and these are Velcro crackles typical of underlying pulmonary fibrosis Heart sounds are tachycardic, Cardiac exam revealed the PMI to be normally situated and sized. The rhythm was regular and no extrasystoles were noted during several minutes of auscultation. The first and second heart sounds were normal and physiologic splitting of the second heart sound was noted. There were no murmurs, rubs, clicks, or gallops. Abdomen is tender. There is diffuse tenderness throughout the anterior abdominal wall. No rebound tenderness at this point in time. No organomegaly. No ascites. Bowel sounds are hypoactive and quite diminished Extremities revealed +1 edema lower diminished bilaterally especially in the left lower extremity. Pulses are diminished. There is no cyanosis or clubbing. Neurologic the patient is awake and alert. Following commands and answering questions appropriately. Focal neurological deficit. Examination of the skin revealed no evidence of significant rashes, suspicious appearing nevi or other concerning lesions. Results - Laboratory Findings CBC and BMP: 01/22/19 12:55 01/22/19 12:55 PT/INR, D-dimer PT 10.8 sec (9.0-12.0) 01/22/19 12:55 INR 1.0 (<1.2) 01/22/19 12:55 Abnormal lab findings: Abnormal Labs 01/22/19 01/22/19 01/22/19 12:55 12:55 12:55 WBC 16.2 H Plt Count 590 H Neutrophils # 15.0 H Lymphocytes # 0.6 L APTT Sodium 132 L Chloride 93 L Carbon Dioxide 32 H BUN 27 H Glucose 147 H Magnesium 3.2 H Albumin 3.3 L 01/22/19 12:55 WBC Plt Count Neutrophils # Lymphocytes # APTT 21.2 L Sodium Chloride Carbon Dioxide BUN Glucose Magnesium Albumin - Diagnostic Findings Chest x-ray: image reviewed Assessment and Plan Plan: 1 acute abdomen with pneumoperitoneum and suspected bowel perforation. The patient has free air/pneumoperitoneum and abdomen along with fluids. Suspect infected diverticulitis with secondary perforation. The patient will be taken to the operating room. 2 diffuse abdominal pain secondary to above 3 acute leukocytosis secondary to above 4 acute sinus tachycardia secondary to above 5 mild lactic acidosis 6 advanced COPD with pulmonary fibrosis, steroid dependent 7 chronic exertional dyspnea secondary to COPD/pulmonary fibrosis 8 rheumatoid arthritis 9 obstructive sleep apnea not receiving any CPAP therapy at this point in time 10 chronic back pain 11 hyperlipidemia 12 osteoarthritis Plan Resuscitated the patient IV fluids. The patient will be taken to the operating room. Meanwhile the patient will need IV access Abdelrahman triple-lumen catheter that would be inserted and operating room. Continue normal saline which is currently running at 125 mL an hour. IV Zosyn. IV Flagyl. Dilaudid for pain control. Stress dose hydrocortisone as the patient is on long-term steroid treatment with 10 mg of prednisone. We'll likely need postop care unit and ICU and further recommendations are to follow. We'll give the patient heparin subcu for DVT prophylaxis, IV Protonix, we'll continue to follow. Condition is critical at this point in time.
[2019-01-22] MEDS ORDERED: SODIUM CHLORIDE 0.9% 1,000 ML IV ONE (19:05)
[2019-01-22] MEDS ORDERED: LACTATED RINGERS 1,000 ML IV ONE (20:00)
[2019-01-22] MEDS: IPRATROPIUM-ALBUTEROL 3 ML NEB INHALATION SCH (20:33)
[2019-01-22 21:12] LABS: Glucose,Whole Blood 119 mg/dL (75-99)
--- NOTE | 2019-01-22 21:30 | P.OP ---
Date of Procedure: 01/22/19 Procedure(s) Performed: PREOPERATIVE DIAGNOSIS: Pneumoperitoneum POSTOPERATIVE DIAGNOSIS: Perforated duodenal ulcer PROCEDURE: Exploratory laparotomy with repair perforated duodenal ulcer, repair incarcerated umbilical hernia SURGEON: Amita EBL: 50 mL ANESTHESIA: Gen. COMPLICATIONS: None OPERATIVE PROCEDURE: Patient placed in the operating table in the supine position. The patient was placed under general anesthesia. Preoperative central line and arterial line placed by anesthesia. Abdomen prepped and draped sterilely. Midline incision was created. The patient's umbilical hernia fascial defect was incorporated into our fascial opening. Once we entered the abdomen there was a large volume of green succus present primarily in the upper abdomen although involving all 4 quadrants. There was a staining of the transverse mesocolon. The gastrocolic ligament was opened and a large volume of this bilious stained fluid was evacuated. After careful evaluation a 1 cm perforation of the proximal duodenum was identified. The bowel was viable. The defect was closed transversely using interrupted 3-0 GI silk sutures. The abdomen was then copiously irrigated with saline. Tisseel fibrin glue was used over the repair. A drain was placed exiting from the right lateral abdomen crossing over into the lesser sac. A nasogastric tube was confirmed within the stomach. I then placed 2 horizontal #5 Ethibond sutures to act as horizontal retention sutures. The fascia was reapproximated using 2 separate double- stranded #1 PDS sutures. The skin was closed using gladys leaving 3 openings 4 weeks. Telfa kyra were placed. The retention sutures were tied down over 28- Lao red rubber catheters. It should be noted the umbilical hernia was repaired with the closure of the fascia. Sterile dressings were applied. The TAHMINA drain was sutured to the skin using a 3-0 silk stitch. DISPOSITION: Stable to recovery room
[2019-01-22 21:42] LABS: ABG Base Excess 6.2 mmol/L; ABG HCO3 31 mmol/L (21-25); ABG Oxygen Saturation 98.1 % (94-97); ABG PCO2 51 mmHg (35-45); ABG PO2 125 mmHg (83-108); ABG TCO2 33 mmol/L (19-24)
--- NOTE | 2019-01-22 22:10 | XR ---
EXAMINATION: XR chest 1V portable DATE AND TIME: 01/22/2019 9:42 PM CLINICAL INDICATION: PHH; mech vent TECHNIQUE: Departmental protocol COMPARISON: 01/22/2019 at 3:13 PM FINDINGS: Since prior study the patient has been intubated, with the ET tube tip superimposed over th e mid trachea. Also, an NG tube has been placed, which courses over the expected course of the thoracic esophagus an d over the stomach. Right IJ central line tip superimposed over the cavoatrial junction. EKG leads. The previously seen coarse interstitial pattern is redemonstrated. The current lung inflation pattern is similar to the preintubation study. There is no pneumothorax. IMPRESSION: Post intubation chest radiograph.
[2019-01-22] MEDS: HEPARIN SODIUM,PORCINE 5,000 UNIT/ML 1 ML VIAL SQ SCH (22:11)
[2019-01-22] MEDS: HYDROCORTISONE SUCCINATE 100 MG/2 ML VIAL IV SCH (22:18)
[2019-01-22] MEDS: PANTOPRAZOLE 40 MG/10 ML VIAL IVP SCH (22:20)
[2019-01-22] MEDS: metroNIDAZOLE-NS PMX 500 MG in SALINE 1 100ML.BAG IVPB SCH ×2 (22:23→23:50)
[2019-01-22] MEDS: FLUCONAZOLE IN NACL,ISO-OSM 200 MG in SALINE 1 100ML.BAG IVPB SCH (22:24)
[2019-01-22] MEDS: PROPOFOL 1,000 MG in EMPTY BAG 1 BAG IV SCH (22:27)
[2019-01-23] MEDS: SODIUM CHLORIDE 0.9% 1,000 ML IV SCH ×3 (00:05→18:44)
[2019-01-23] MEDS: HYDROCORTISONE SUCCINATE 100 MG/2 ML VIAL IV SCH ×3 (00:05→15:52)
[2019-01-23] MEDS: PIPERACILLIN-TAZOBACTAM 3.375 GM in SODIUM CHLORIDE 0.9% 100 ML IVPB SCH ×3 (01:20→15:53)
[2019-01-23] MEDS: HEPARIN SODIUM,PORCINE 5,000 UNIT/ML 1 ML VIAL SQ SCH ×3 (01:28→15:51)
[2019-01-23] MEDS: IPRATROPIUM-ALBUTEROL 3 ML NEB INHALATION SCH ×4 (01:49→19:25)
[2019-01-23 02:06] LABS: Appearance,Urine Clear (Clear); Bilirubin,Urine Negative (Negative); Blood,Urine Negative (Negative); Color,Urine Yellow; Glucose,Urine (UA) Negative (Negative); Ketones,Urine Negative (Negative); Leukocyte Esterase,Urine Negative (Negative); Mucus,Urine Rare /hpf; Nitrite,Urine Negative (Negative); Protein,Urine 1+ (Negative); RBC,Urine 8 /hpf (0-5); Urobilinogen,Urine <2.0 mg/dL (<2.0); WBC,Urine 5 /hpf (0-5)
[2019-01-23 02:08] LABS: Specific Gravity,Urine >1.050 (1.001-1.035)
[2019-01-23] MEDS: HYDROmorphone 0.5 MG/0.5 ML SYRINGE IVP PRN ×2 (03:49→11:08)
[2019-01-23 05:00] LABS: Basophils % (A) 0 %; Eosinophils % (A) 0 %; HCT 37.3 % (39.0-53.0); Lymphocytes # (A) 0.5 k/uL (1.0-4.8); Lymphocytes % (A) 4 %; MCHC 31.2 g/dL (31.0-37.0); MCV 96.2 fL (80.0-100.0); Mean Platelet Volume 7.8; Monocytes # (A) 0.3 k/uL (0-1.0); Monocytes % (A) 2 %; Neutrophils # (A) 11.6 k/uL (1.3-7.7); Neutrophils % (A) 93 %; Platelet Count 475 k/uL (150-450); RBC 3.88 m/uL (4.30-5.90); RDW 15.3 % (11.5-15.5); WBC 12.4 k/uL (3.8-10.6)
[2019-01-23 05:06] LABS: HGB 11.6 gm/dL (13.0-17.5)
[2019-01-23 05:15] LABS: ABG Base Excess 3.9 mmol/L; ABG HCO3 30 mmol/L (21-25); ABG Oxygen Saturation 96.8 % (94-97); ABG PCO2 53 mmHg (35-45); ABG PH 7.35 (7.35-7.45); ABG PO2 96 mmHg (83-108); ABG TCO2 31 mmol/L (19-24)
[2019-01-23 05:26] LABS: ALT 24 U/L (21-72); AST 21 U/L (17-59); Alkaline Phosphatase 53 U/L (38-126); Anion Gap 1 mmol/L; Blood Urea Nitrogen 25 mg/dL (9-20); Calcium 7.3 mg/dL (8.4-10.2); Carbon Dioxide 30 mmol/L (22-30); Chloride 104 mmol/L (98-107); Glucose 109 mg/dL (74-99); Magnesium 3.3 mg/dL (1.6-2.3); Phosphorus 4.1 mg/dL (2.5-4.5); Potassium 5.2 mmol/L (3.5-5.1); Sodium 135 mmol/L (137-145); Total Bilirubin 0.2 mg/dL (0.2-1.3); Total Protein 4.3 g/dL (6.3-8.2)
[2019-01-23] MEDS: PROPOFOL 1,000 MG in EMPTY BAG 1 BAG IV SCH (06:27)
[2019-01-23] MEDS: PANTOPRAZOLE 40 MG/10 ML VIAL IVP SCH (08:37)
--- NOTE | 2019-01-23 08:38 | P.HPIM ---
History of Present Illness This is a 68 years old male with past medical history of COPD on home oxygen, hyperlipidemia, rheumatoid arthritis, sleep apnea on CPAP. Presents with abdominal pain , has been evaluated by surgery on admission and taken to the ope ration room found to have perforated duodenal ulcer and incarcerated umbilical hernia. After the surgery patient was taken to the intensive care unit, he got intubated. He was started on Zosyn, and Flagyl. He is also on Protonix for DVT prophylaxis. And he is in normal cement 120 L/h. Patient currently is not on pressors. He has J drain with 200 mL of bloody discharge from abdominal wound. NG tube was about 200 mL drainage. Currently patient is in ICU, vital showing blood pressure is 87/44, saturating 95% on FiO2 of 50%. Temperature 97.5. WBC 12.4 K, potassium 5.2 sodium 135. Creatinine 0.7. Urinalysis is not suspicious of infection. Chest x-ray: Interstitial lung disease, endotracheal tube is in place. CT of the abdomen and pelvis done prior to surgery was reviewed. EKG sinus tachycardia at 113. No significant ST-T changes. Review of Systems not applicable as pt is intubated Past Medical History Past Medical History: COPD, Hyperlipidemia, Osteoarthritis (OA), Pneumonia, Rheumatoid Arthritis (RA), Sleep Apnea/CPAP/BIPAP Additional Past Medical History / Comment(s): Pneumonia with sepsis twice-10/2017 and in 2016. 3.5L home o2, PATTY with no device (cannot tolerate), recently injured low back-saw Dr. Dye. Rheumatoid arthritis in bilateral hips,knees hands and back. History of Any Multi-Drug Resistant Organisms: None Reported Past Surgical History: Orthopedic Surgery Additional Past Surgical History / Comment(s): bilateral cataract removals with lens implants, left knee arthroscopy, colonoscopy. Past Anesthesia/Blood Transfusion Reactions: No Reported Reaction Past Psychological History: Anxiety, Depression Additional Psychological History / Comment(s): Pt resides with his spouse of 38 yrs. He has home oxygen which he wears prn at 3.5L/NC. He has a nebulizer. Smoking Status: Former smoker Past Alcohol Use History: Occasional Additional Past Alcohol Use History / Comment(s): Pt started smoking as a teen and quit in 2011. He states he drinks 3-4 beers a day. Past Drug Use History: None Reported - Past Family History Father Family Medical History: Cancer Additional Family Medical History / Comment(s): Father of leukemia. Mother Family Medical History: Cancer, CVA/TIA, Dementia, Diabetes Mellitus Additional Family Medical History / Comment(s): Mother is 88yrs old. Cancer colon. Medications and Allergies Home Medications Medication Instructions Recorded Confirmed Type LORazepam [Ativan] 1 mg PO TID PRN 02/04/18 01/22/19 History predniSONE 10 mg PO DAILY #30 tab 02/05/18 01/22/19 Rx Benzonatate [Tessalon Perles] 100 mg PO TID PRN 01/22/19 01/22/19 History HYDROcodone/APAP 10-325MG [[place] 1 tab PO Q8H PRN 01/22/19 01/22/19 History 10-325] Sulfamethoxazole/Trimethoprim 1 tab PO BID 01/22/19 01/22/19 History [Bactrim DS 800-160 mg] metroNIDAZOLE [Flagyl] 500 mg PO TID 01/22/19 01/22/19 History Allergies Allergy/AdvReac Type Severity Reaction Status Date / Time amoxicillin AdvReac Nausea & Verified 01/22/19 13:48 Vomiting Physical Exam Vitals: Vital Signs Temp Pulse Pulse Resp BP BP Pulse Ox 01/23/19 08:13 92 01/23/19 07:51 79 01/23/19 07:00 79 12 89/62 01/23/19 06:00 87 11 L 99/64 95 01/23/19 05:00 85 12 88/60 95 01/23/19 04:00 97.5 F L 90 12 104/84 96 01/23/19 03:00 85 13 01/23/19 02:02 101 H 01/23/19 02:00 97 12 95/78 95 01/23/19 01:49 100 01/23/19 01:00 94 17 90/63 01/23/19 00:40 96 12 95/64 96 01/23/19 00:00 97.8 F 101 H 12 102/69 90 L 01/22/19 23:00 101 H 12 96/64 01/22/19 22:00 97.8 F 101 H 12 114/71 01/22/19 18:09 122 H 24 129/67 90 L 01/22/19 18:04 98.2 F 123 H 22 125/79 94 L 01/22/19 16:32 12 96 01/22/19 15:33 120 H 24 104/71 90 L 01/22/19 13:42 114 H 01/22/19 13:40 116/73 01/22/19 13:33 112 H 01/22/19 13:22 24 93 L 01/22/19 12:47 97.3 F L 113 H 24 123/73 87 L Intake and Output 01/22/19 01/23/19 01/23/19 22:59 06:59 14:59 Intake Total 1320 1078.00 126 Output Total 230 285 40 Balance 1090 793.00 86 Intake: IV 1320 978 126 Pressure 18 6 Sodium Chloride 0.9% 1, 120 960 120 000 ml @ 120 mls/hr IV . Q8H20M [facility] Rx#:[id number] Intake, IV Titration 100.00 Amount Propofol 1,000 mg In 100.00 Empty Bag 1 bag @ Titrate IV .Q0M [facility] Rx#: [id number] Output: Urine 220 285 40 Estimated Blood Loss 10 Other: Voiding Method Indwelling Catheter Weight 72 kg ABP, PAP, CO, CI - Last 8 Hours Arterial Blood Pressure 87/44 Arterial Blood Pressure 88/49 Arterial Blood Pressure 88/49 Arterial Blood Pressure 94/51 Arterial Blood Pressure 86/49 Arterial Blood Pressure 92/52 Arterial Blood Pressure 82/49 Arterial Blood Pressure 88/50 GENERAL: The patient is intubated and sedated HEENT: Pupils are round and equally reacting to light. EOMI. No scleral icterus. No conjunctival pallor. Normocephalic, atraumatic. No pharyngeal erythema. No thyromegaly. CARDIOVASCULAR: S1 and S2 present. No murmurs, rubs, or gallops. PULMONARY: Chest is clear to auscultation, no wheezing or crackles. ABDOMEN: Soft, is status post exploratory laparotomy, dressing is in place, wound is CLOSED. MUSCULOSKELETAL: No joint swelling or deformity. EXTREMITIES: No cyanosis, clubbing, or pedal edema. NEUROLOGICAL: Gross neurological examination did not reveal any focal deficits. SKIN: No rashes. Results CBC & Chem 7: 01/23/19 04:50 01/23/19 04:50 Labs: Abnormal Lab Results - Last 24 Hours (Table) 05/01/22/19 01/22/19 Range/Units 12:55 12:55 12:55 WBC 16.2 H (3.8-10.6) k/uL RBC (4.30-5.90) m/uL Hgb (13.0-17.5) gm/dL Hct (39.0-53.0) % Plt Count 590 H (150-450) k/uL Neutrophils # 15.0 H (1.3-7.7) k/uL Lymphocytes # 0.6 L (1.0-4.8) k/uL APTT (22.0-30.0) sec ABG pCO2 (35-45) mmHg ABG pO2 (83-108) mmHg ABG HCO3 (21-25) mmol/L ABG Total CO2 (19-24) mmol/L ABG O2 Saturation (94-97) % Sodium 132 L (137-145) mmol/L Potassium (3.5-5.1) mmol/L Chloride 93 L (98-107) mmol/L Carbon Dioxide 32 H (22-30) mmol/L BUN 27 H (9-20) mg/dL Glucose 147 H (74-99) mg/dL POC Glucose (mg/dL) (75-99) mg/dL Calcium (8.4-10.2) mg/dL Magnesium 3.2 H (1.6-2.3) mg/dL Total Protein (6.3-8.2) g/dL Albumin 3.3 L (3.5-5.0) g/dL Ur Specific [place] (1.001-1.035) Urine Protein (Negative) Urine RBC (0-5) /hpf Urine Mucus (None) /hpf 01/22/19 01/22/19 01/22/19 Range/Units 12:55 21:08 21:40 WBC (3.8-10.6) k/uL RBC (4.30-5.90) m/uL Hgb (13.0-17.5) gm/dL Hct (39.0-53.0) % Plt Count (150-450) k/uL Neutrophils # (1.3-7.7) k/uL Lymphocytes # (1.0-4.8) k/uL APTT 21.2 L (22.0-30.0) sec ABG pCO2 51 H (35-45) mmHg ABG pO2 125 H (83-108) mmHg ABG HCO3 31 H (21-25) mmol/L ABG Total CO2 33 H (19-24) mmol/L ABG O2 Saturation 98.1 H (94-97) % Sodium (137-145) mmol/L Potassium (3.5-5.1) mmol/L Chloride (98-107) mmol/L Carbon Dioxide (22-30) mmol/L BUN (9-20) mg/dL Glucose (74-99) mg/dL POC Glucose (mg/dL) 119 H (75-99) mg/dL Calcium (8.4-10.2) mg/dL Magnesium (1.6-2.3) mg/dL Total Protein (6.3-8.2) g/dL Albumin (3.5-5.0) g/dL Ur Specific [place] (1.001-1.035) Urine Protein (Negative) Urine RBC (0-5) /hpf Urine Mucus (None) /hpf 01/23/19 01/23/19 01/23/19 Range/Units 01:50 04:50 04:50 WBC 12.4 H (3.8-10.6) k/uL RBC 3.88 L (4.30-5.90) m/uL Hgb 11.6 L D (13.0-17.5) gm/dL Hct 37.3 L (39.0-53.0) % Plt Count 475 H (150-450) k/uL Neutrophils # 11.6 H (1.3-7.7) k/uL Lymphocytes # 0.5 L (1.0-4.8) k/uL APTT (22.0-30.0) sec ABG pCO2 (35-45) mmHg ABG pO2 (83-108) mmHg ABG HCO3 (21-25) mmol/L ABG Total CO2 (19-24) mmol/L ABG O2 Saturation (94-97) % Sodium 135 L (137-145) mmol/L Potassium 5.2 H (3.5-5.1) mmol/L Chloride (98-107) mmol/L Carbon Dioxide (22-30) mmol/L BUN 25 H (9-20) mg/dL Glucose 109 H (74-99) mg/dL POC Glucose (mg/dL) (75-99) mg/dL Calcium 7.3 L (8.4-10.2) mg/dL Magnesium 3.3 H (1.6-2.3) mg/dL Total Protein 4.3 L (6.3-8.2) g/dL Albumin 2.0 L (3.5-5.0) g/dL Ur Specific [place] >1.050 H (1.001-1.035) Urine Protein 1+ H (Negative) Urine RBC 8 H (0-5) /hpf Urine Mucus Rare H (None) /hpf 01/23/19 Range/Units 05:09 WBC (3.8-10.6) k/uL RBC (4.30-5.90) m/uL Hgb (13.0-17.5) gm/dL Hct (39.0-53.0) % Plt Count (150-450) k/uL Neutrophils # (1.3-7.7) k/uL Lymphocytes # (1.0-4.8) k/uL APTT (22.0-30.0) sec ABG pCO2 53 H (35-45) mmHg ABG pO2 (83-108) mmHg ABG HCO3 30 H (21-25) mmol/L ABG Total CO2 31 H (19-24) mmol/L ABG O2 Saturation (94-97) % Sodium (137-145) mmol/L Potassium (3.5-5.1) mmol/L Chloride (98-107) mmol/L Carbon Dioxide (22-30) mmol/L BUN (9-20) mg/dL Glucose (74-99) mg/dL POC Glucose (mg/dL) (75-99) mg/dL Calcium (8.4-10.2) mg/dL Magnesium (1.6-2.3) mg/dL Total Protein (6.3-8.2) g/dL Albumin (3.5-5.0) g/dL Ur Specific [place] (1.001-1.035) Urine Protein (Negative) Urine RBC (0-5) /hpf Urine Mucus (None) /hpf Thrombosis Risk Factor Assmnt - Choose All That Apply Each Factor Represents 1 point: Abnormal pulmonary function (COPD), Medical pt on bed rest Each Risk Factor Represents 2 Points: Age 61-74 years, Major surgery Thrombosis Risk Factor Assessment Total Risk Factor Score: 6 Thrombosis Risk Factor Assessment Level: High Risk Assessment and Plan Assessment: Acute abdomen, status post exploratory laparotomy with perforated duodenal ulcer and incarcerated umbilical hernia Acute hypoxic respiratory failure. Acute COPD exacerbation Hyperlipidemia History of rheumatoid arthritis Plan: This is a 68 years old male who presents with perforated duodenal ulcers and incarcerated hernia, status post exploratory laparotomy. Patient after the surgery went to the intensive care unit. Status post intubating. Critical care team and surgery team R following the case closely. Continue with pain management, IV fluids and antibiotic.Labs and medication were reviewed.. Continue same treatment. Continue with symptomatic treatment. Resume home medication. Monitor lytes and vitals. DVT and GI prophylaxis. Further recommendations of the clinical course of the patient DVT prophylaxis: Subcutaneous heparin GI Prophylaxis: PPI Prognosis is guarded
[2019-01-23] MEDS: metroNIDAZOLE-NS PMX 500 MG in SALINE 1 100ML.BAG IVPB SCH ×3 (08:43→23:03)
[2019-01-23] MEDS ORDERED: CHLORHEXIDINE GLUCONATE 15 ML CUP MUCOUS MEM SCH (09:00)
--- NOTE | 2019-01-23 09:03 | XR ---
EXAMINATION TYPE: XR chest 1V portable DATE OF EXAM: 01/23/2019 COMPARISON: 01/22/2019 INDICATION: Tube placement TECHNIQUE: Single frontal view of the chest is obtained. FINDINGS: The heart size is normal. The pulmonary vasculature is slightly prominent. Mild bibasilar infiltrates are present. This is slightly increasing from comparison. Fluid is within the azygos fissure. Endotracheal tube tip is above the [place]. Nasogastric tube transverses the thorax the tip in the upp er abdomen. Right central venous catheter is present with the tip in the superior vena cava region. IMPRESSION: 1. Increasing bibasilar infiltrates. 2. Lines and catheters discussed above. 3. Prominent pulmonary vascular markings. Correlate for volume overload.
[2019-01-23 10:19] LABS: ABG Base Excess 0.9 mmol/L; ABG HCO3 28 mmol/L (21-25); ABG Oxygen Saturation 96.2 % (94-97); ABG PCO2 59 mmHg (35-45); ABG PH 7.28 (7.35-7.45); ABG PO2 93 mmHg (83-108); ABG TCO2 29 mmol/L (19-24)
[2019-01-23] MEDS: FLUCONAZOLE IN NACL,ISO-OSM 200 MG in SALINE 1 100ML.BAG IVPB SCH (10:30)
[2019-01-23] MEDS ORDERED: SODIUM CHLORIDE 0.9% 1,000 ML IV ONE (11:08)
[2019-01-23] MEDS ORDERED: HYDROmorphone 0.5 MG/0.5 ML SYRINGE IVP STA (11:30)
[2019-01-23 12:24] LABS: Glucose,Whole Blood 97 mg/dL (75-99)
--- NOTE | 2019-01-23 12:38 | P.PN ---
Subjective Progress Note Date: 01/23/19 Principal diagnosis: Perforated duodenal ulcer Patient was extubated this morning. Is currently on CPAP. Says his pain in the abdomen is improved. His TAHMINA drain is sanguinous. Nasogastric tube is bilious. Dressings are otherwise clean and dry. Labs noted. Marginal urine output overnight. Objective - Vital Signs Vital signs: Vital Signs Temp 98 F 01/23/19 08:00 Pulse 92 01/23/19 08:13 Resp 12 01/23/19 08:00 BP 86/64 01/23/19 08:00 Pulse Ox 97 01/23/19 08:00 Intake & Output 01/22/19 01/23/19 01/23/19 18:59 06:59 18:59 Intake Total 2398.00 1930 Output Total 515 225 Balance 1883.00 1705 Weight 71.668 kg 72 kg Intake: IV 2298 1930 Fluconazole in NaCl,Iso- 100 Osm 200 mg In Saline 1 100ml.bag @ 100 mls/hr IVPB DAILY [facility] Rx#: [id number] Piperacillin-Tazobactam 3 100 .375 gm In Sodium Chloride 0.9% 100 ml @ 25 mls/hr IVPB Q8HR [facility] Rx# :[id number] Pressure 18 30 Sodium Chloride 0.9% 1, 1080 600 000 ml @ 120 mls/hr IV . Q8H20M [facility] Rx#:[id number] Sodium Chloride 0.9% 1, 1000 000 ml @ 999 mls/hr IV . Q1H1M [facility] Rx#:[id number] metroNIDAZOLE-NS PMX 500 100 mg In Saline 1 100ml.bag @ 100 mls/hr IVPB Q8HR [facility] Rx#:[id number] Intake, IV Titration 100.00 Amount Propofol 1,000 mg In 100.00 Empty Bag 1 bag @ Titrate IV .Q0M [facility] Rx#: [id number] Output: Urine 505 225 Estimated Blood Loss 10 Other: Voiding Method Indwelling Catheter ABP, PAP, CO, CI - Last Documented Arterial Blood Pressure 93/49 - Exam Abdomen: Soft, mild distention, incision clean with kyra present, retention sutures intact, drain noted - Labs CBC & Chem 7: 01/23/19 04:50 01/23/19 04:50 Labs: Abnormal Lab Results - Last 24 Hours (Table) 01/22/19 01/22/1919 Range/Units 12:55 12:55 12:55 WBC 16.2 H (3.8-10.6) k/uL RBC (4.30-5.90) m/uL Hgb (13.0-17.5) gm/dL Hct (39.0-53.0) % Plt Count 590 H (150-450) k/uL Neutrophils # 15.0 H (1.3-7.7) k/uL Lymphocytes # 0.6 L (1.0-4.8) k/uL APTT (22.0-30.0) sec ABG pH (7.35-7.45) ABG pCO2 (35-45) mmHg ABG pO2 (83-108) mmHg ABG HCO3 (21-25) mmol/L ABG Total CO2 (19-24) mmol/L ABG O2 Saturation (94-97) % Sodium 132 L (137-145) mmol/L Potassium (3.5-5.1) mmol/L Chloride 93 L (98-107) mmol/L Carbon Dioxide 32 H (22-30) mmol/L BUN 27 H (9-20) mg/dL Glucose 147 H (74-99) mg/dL POC Glucose (mg/dL) (75-99) mg/dL Calcium (8.4-10.2) mg/dL Magnesium 3.2 H (1.6-2.3) mg/dL Total Protein (6.3-8.2) g/dL Albumin 3.3 L (3.5-5.0) g/dL Ur Specific [place] (1.001-1.035) Urine Protein (Negative) Urine RBC (0-5) /hpf Urine Mucus (None) /hpf 01/22/19 01/22/19 01/22/19 Range/Units 12:55 21:08 21:40 WBC (3.8-10.6) k/uL RBC (4.30-5.90) m/uL Hgb (13.0-17.5) gm/dL Hct (39.0-53.0) % Plt Count (150-450) k/uL Neutrophils # (1.3-7.7) k/uL Lymphocytes # (1.0-4.8) k/uL APTT 21.2 L (22.0-30.0) sec ABG pH (7.35-7.45) ABG pCO2 51 H (35-45) mmHg ABG pO2 125 H (83-108) mmHg ABG HCO3 31 H (21-25) mmol/L ABG Total CO2 33 H (19-24) mmol/L ABG O2 Saturation 98.1 H (94-97) % Sodium (137-145) mmol/L Potassium (3.5-5.1) mmol/L Chloride (98-107) mmol/L Carbon Dioxide (22-30) mmol/L BUN (9-20) mg/dL Glucose (74-99) mg/dL POC Glucose (mg/dL) 119 H (75-99) mg/dL Calcium (8.4-10.2) mg/dL Magnesium (1.6-2.3) mg/dL Total Protein (6.3-8.2) g/dL Albumin (3.5-5.0) g/dL Ur Specific [place] (1.001-1.035) Urine Protein (Negative) Urine RBC (0-5) /hpf Urine Mucus (None) /hpf 01/23/19 01/23/19 01/23/19 Range/Units 01:50 04:50 04:50 WBC 12.4 H (3.8-10.6) k/uL RBC 3.88 L (4.30-5.90) m/uL Hgb 11.6 L D (13.0-17.5) gm/dL Hct 37.3 L (39.0-53.0) % Plt Count 475 H (150-450) k/uL Neutrophils # 11.6 H (1.3-7.7) k/uL Lymphocytes # 0.5 L (1.0-4.8) k/uL APTT (22.0-30.0) sec ABG pH (7.35-7.45) ABG pCO2 (35-45) mmHg ABG pO2 (83-108) mmHg ABG HCO3 (21-25) mmol/L ABG Total CO2 (19-24) mmol/L ABG O2 Saturation (94-97) % Sodium 135 L (137-145) mmol/L Potassium 5.2 H (3.5-5.1) mmol/L Chloride (98-107) mmol/L Carbon Dioxide (22-30) mmol/L BUN 25 H (9-20) mg/dL Glucose 109 H (74-99) mg/dL POC Glucose (mg/dL) (75-99) mg/dL Calcium 7.3 L (8.4-10.2) mg/dL Magnesium 3.3 H (1.6-2.3) mg/dL Total Protein 4.3 L (6.3-8.2) g/dL Albumin 2.0 L (3.5-5.0) g/dL Ur Specific [place] >1.050 H (1.001-1.035) Urine Protein 1+ H (Negative) Urine RBC 8 H (0-5) /hpf Urine Mucus Rare H (None) /hpf 01/23/19 01/23/19 Range/Units 05:09 10:16 WBC (3.8-10.6) k/uL RBC (4.30-5.90) m/uL Hgb (13.0-17.5) gm/dL Hct (39.0-53.0) % Plt Count (150-450) k/uL Neutrophils # (1.3-7.7) k/uL Lymphocytes # (1.0-4.8) k/uL APTT (22.0-30.0) sec ABG pH 7.28 L (7.35-7.45) ABG pCO2 53 H 59 H (35-45) mmHg ABG pO2 (83-108) mmHg ABG HCO3 30 H 28 H (21-25) mmol/L ABG Total CO2 31 H 29 H (19-24) mmol/L ABG O2 Saturation (94-97) % Sodium (137-145) mmol/L Potassium (3.5-5.1) mmol/L Chloride (98-107) mmol/L Carbon Dioxide (22-30) mmol/L BUN (9-20) mg/dL Glucose (74-99) mg/dL POC Glucose (mg/dL) (75-99) mg/dL Calcium (8.4-10.2) mg/dL Magnesium (1.6-2.3) mg/dL Total Protein (6.3-8.2) g/dL Albumin (3.5-5.0) g/dL Ur Specific [place] (1.001-1.035) Urine Protein (Negative) Urine RBC (0-5) /hpf Urine Mucus (None) /hpf Microbiology - Last 24 Hours (Table) 01/23/19 01:50 Urine Culture - Preliminary Urine,Catheterized 01/22/19 23:41 Sputum Culture - Preliminary Sputum Assessment and Plan (1) Bowel perforation Narrative/Plan: Continue pulmonary toilet. Continue antiacids antifungals and antibiotics. Keep nasogastric tube to suction. Possibly start TPN 24-48 hours. Current Visit: Yes Status: Acute Code(s): K63.1 - PERFORATION OF INTESTINE (NONTRAUMATIC) SNOMED Code(s): 85296122
[2019-01-23] MEDS: ACETAMINOPHEN IV (For NPO) 1,000 MG in EMPTY BAG 1 BAG IVPB SCH ×2 (12:49→18:41)
[2019-01-23] MEDS: HYDROmorphone 1 MG/ML 1 ML SYRINGE IVP PRN ×4 (13:24→22:48)
--- NOTE | 2019-01-23 13:49 | P.PN ---
Subjective Progress Note Date: 01/23/19 On 01/23/2019 the patient is postop day #1. The patient was taken to the operating room for pneumoperitoneum. The patient was found to have a perforated duodenal ulcer. He underwent expiratory laparotomy with repair of a perforated duodenal ulcer and repair of an incarcerated umbilical hernia. Postop, the patient was kept intubated and he was brought into the intensive care unit. Overnight the patient was given a bolus of IV fluids. He was kept sedated. He was kept on a mechanical ventilator and earlier this morning with an assist- control mode at the rate of 12 with an FiO2 of 50% and PEEP of 5 and a tidal volume of 500. The patient otherwise did well. He did not require any pressors. He is on a combination of Flagyl and Zosyn and Diflucan. He is afebrile hemodynamically stable. Based on all this, I reviewed the chest x-ray and shows chronic fibrotic changes in lung bases bilaterally. ET tube was in a good location. At that this patient off sedation this morning. Weaning para meters were checked. Following that the patient was given a spontaneous breathing trial. The post trial blood gases showed a component of mild respiratory acidosis. Nevertheless, I decided to extubate this patient to a BiPAP and currently is on a BiPAP pressure of 10/5 with an FiO2 of 50%. He is alert and awake and is following simple commands. He is quite comfortable. He is on stress dose hydrocortisone. He is on bronchodilators [id number]. He has no issues with pain. Surgical wound site is dry clean and intact. He has a right IJ triple-lumen catheter. He has a Artline catheter in place. TAHMINA drains also in place. No abdominal distention. No other complaints otherwise for now. Family is at the bedside. Objective - Vital Signs Vital signs: Vital Signs Temp 98.2 F 01/23/19 12:00 Pulse 98 01/23/19 12:51 Resp 15 01/23/19 12:00 BP 116/73 01/23/19 12:00 Pulse Ox 96 01/23/19 12:00 Intake & Output 01/22/19 01/23/19 01/23/19 18:59 06:59 18:59 Intake Total 2398.00 2056 Output Total 515 260 Balance 1883.00 1796 Weight 71.668 kg 72 kg Intake: IV 2298 2056 Fluconazole in NaCl,Iso- 100 Osm 200 mg In Saline 1 100ml.bag @ 100 mls/hr IVPB DAILY [facility] Rx#: [id number] Piperacillin-Tazobactam 3 100 .375 gm In Sodium Chloride 0.9% 100 ml @ 25 mls/hr IVPB Q8HR [facility] Rx# :[id number] Pressure 18 36 Sodium Chloride 0.9% 1, 1080 720 000 ml @ 120 mls/hr IV . Q8H20M [facility] Rx#:[id number] Sodium Chloride 0.9% 1, 1000 000 ml @ 999 mls/hr IV . Q1H1M [facility] Rx#:[id number] metroNIDAZOLE-NS PMX 500 100 mg In Saline 1 100ml.bag @ 100 mls/hr IVPB Q8HR [facility] Rx#:[id number] Intake, IV Titration 100.00 Amount Propofol 1,000 mg In 100.00 Empty Bag 1 bag @ Titrate IV .Q0M [facility] Rx#: [id number] Output: Urine 505 260 Estimated Blood Loss 10 Other: Voiding Method Indwelling Catheter ABP, PAP, CO, CI - Last Documented Arterial Blood Pressure 135/59 - Exam Gen. appearance is calm comfortable cushingoid nonacute distress currently shaan ating a BiPAP at a pressure of 10/5 with an FiO2 of 50%, is wearing a full face mask Head exam was generally normal. There was no scleral icterus or corneal arcus. Mucous membranes were moist.. The patient is cushingoid features related to chronic steroid use. Neck was supple and without jugular venous distension, thyromegaly, or carotid bruits. Carotids were easily palpable bilaterally. There was no adenopathy. The patient has a right IJ triple-lumen catheter in place. Lungs sounds are diminished bilaterally and the patient has coarse crackles in the mid and lower lung brown bilaterally consistent with pulmonary fibrosis Cardiac exam revealed the PMI to be normally situated and sized. The rhythm was regular and no extrasystoles were noted during several minutes of auscultation. The first and second heart sounds were normal and physiologic splitting of the second heart sound was noted. There were no murmurs, rubs, clicks, or gallops. Abdomen is soft. Bowel sounds are hypoactive and very sluggish. Surgical wound site is dry clean and intact. TAHMINA drains in place. No direct tenderness. No rebound tenderness. No guarding. Examination of the extremities revealed easily palpable radial, femoral and pedal pulses. There was no cyanosis, clubbing or edema. Examination of the skin revealed no evidence of significant rashes, suspicious appearing nevi or other concerning lesions. Neurologically is awake and alert and there is a focal neurological deficit. - Labs CBC & Chem 7: 01/23/19 04:50 01/23/19 04:50 Labs: Abnormal Lab Results - Last 24 Hours (Table) 01/22/19 01/22/19 01/22/19 Range/Units 12:55 12:55 21:08 WBC (3.8-10.6) k/uL RBC (4.30-5.90) m/uL Hgb (13.0-17.5) gm/dL Hct (39.0-53.0) % Plt Count (150-450) k/uL Neutrophils # (1.3-7.7) k/uL Lymphocytes # (1.0-4.8) k/uL APTT 21.2 L (22.0-30.0) sec ABG pH (7.35-7.45) ABG pCO2 (35-45) mmHg ABG pO2 (83-108) mmHg ABG HCO3 (21-25) mmol/L ABG Total CO2 (19-24) mmol/L ABG O2 Saturation (94-97) % Sodium (137-145) mmol/L Potassium (3.5-5.1) mmol/L BUN (9-20) mg/dL Glucose (74-99) mg/dL POC Glucose (mg/dL) 119 H (75-99) mg/dL Calcium (8.4-10.2) mg/dL Magnesium 3.2 H (1.6-2.3) mg/dL Total Protein (6.3-8.2) g/dL Albumin (3.5-5.0) g/dL Ur Specific [place] (1.001-1.035) Urine Protein (Negative) Urine RBC (0-5) /hpf Urine Mucus (None) /hpf 01/22/19 01/23/19 01/23/19 Range/Units 21:40 01:50 04:50 WBC 12.4 H (3.8-10.6) k/uL RBC 3.88 L (4.30-5.90) m/uL Hgb 11.6 L D (13.0-17.5) gm/dL Hct 37.3 L (39.0-53.0) % Plt Count 475 H (150-450) k/uL Neutrophils # 11.6 H (1.3-7.7) k/uL Lymphocytes # 0.5 L (1.0-4.8) k/uL APTT (22.0-30.0) sec ABG pH (7.35-7.45) ABG pCO2 51 H (35-45) mmHg ABG pO2 125 H (83-108) mmHg ABG HCO3 31 H (21-25) mmol/L ABG Total CO2 33 H (19-24) mmol/L ABG O2 Saturation 98.1 H (94-97) % Sodium (137-145) mmol/L Potassium (3.5-5.1) mmol/L BUN (9-20) mg/dL Glucose (74-99) mg/dL POC Glucose (mg/dL) (75-99) mg/dL Calcium (8.4-10.2) mg/dL Magnesium (1.6-2.3) mg/dL Total Protein (6.3-8.2) g/dL Albumin (3.5-5.0) g/dL Ur Specific [place] >1.050 H (1.001-1.035) Urine Protein 1+ H (Negative) Urine RBC 8 H (0-5) /hpf Urine Mucus Rare H (None) /hpf 01/23/19 01/23/19 01/23/19 Range/Units 04:50 05:09 10:16 WBC (3.8-10.6) k/uL RBC (4.30-5.90) m/uL Hgb (13.0-17.5) gm/dL Hct (39.0-53.0) % Plt Count (150-450) k/uL Neutrophils # (1.3-7.7) k/uL Lymphocytes # (1.0-4.8) k/uL APTT (22.0-30.0) sec ABG pH 7.28 L (7.35-7.45) ABG pCO2 53 H 59 H (35-45) mmHg ABG pO2 (83-108) mmHg ABG HCO3 30 H 28 H (21-25) mmol/L ABG Total CO2 31 H 29 H (19-24) mmol/L ABG O2 Saturation (94-97) % Sodium 135 L (137-145) mmol/L Potassium 5.2 H (3.5-5.1) mmol/L BUN 25 H (9-20) mg/dL Glucose 109 H (74-99) mg/dL POC Glucose (mg/dL) (75-99) mg/dL Calcium 7.3 L (8.4-10.2) mg/dL Magnesium 3.3 H (1.6-2.3) mg/dL Total Protein 4.3 L (6.3-8.2) g/dL Albumin 2.0 L (3.5-5.0) g/dL Ur Specific [place] (1.001-1.035) Urine Protein (Negative) Urine RBC (0-5) /hpf Urine Mucus (None) /hpf Microbiology - Last 24 Hours (Table) 01/23/19 01:50 Urine Culture - Preliminary Urine,Catheterized 01/22/19 23:41 Sputum Culture - Preliminary Sputum Assessment and Plan Plan: 1 pneumoperitoneum and the patient is status post expiratory laparotomy and repair of a perforated duodenal ulcer and repair of an incarcerated umbilical hernia. The patient is postop day #1.. The patient is hemodynamically stable. The patient is currently on a combination of Zosyn and Flagyl and Diflucan. He is well resuscitated. The patient was weaned off and extubated earlier this morning. 2 ventilator management. The patient was extubated and the patient is currently on a BiPAP at a pressure of 10/5 cm of water with an FiO2 of 50%. The patient has bilateral pulmonary fibrosis. 3 acute leukocytosis secondary to above, improving and the white cell count is down to 12.4 4 acute sinus tachycardia secondary to above 5 mild lactic acidosis 6 advanced COPD with pulmonary fibrosis, steroid dependent 7 chronic exertional dyspnea secondary to COPD/pulmonary fibrosis 8 rheumatoid arthritis 9 obstructive sleep apnea not receiving any CPAP therapy at this point in time 10 chronic back pain 11 hyperlipidemia 12 osteoarthritis Plan Give the patient another bolus of normal saline 1 L. He is on a maintenance of normal saline at 1 20 mL an hour. Continue BiPAP for respiratory support. Continue the bronchodilators around the clock. Pain control. Wound care. Monitor output from the TAHMINA. Monitor the white count. Monitor hemodynamics. Monitor CVP. Continue same antibiotic coverage including a combination of Zosyn and Flagyl and Diflucan. We'll keep the patient denies to follow 24 hours for further monitoring. Would prefer to keep him BiPAP throughout the day and overnight he can be weaned down to a nasal cannula hopefully by tomorrow. We'll continue to follow. Critically care evaluation that was done more than 30 minutes. Time with Patient: Greater than 30
[2019-01-24] MEDS: HYDROCORTISONE SUCCINATE 100 MG/2 ML VIAL IV SCH ×3 (00:05→15:11)
[2019-01-24] MEDS: HEPARIN SODIUM,PORCINE 5,000 UNIT/ML 1 ML VIAL SQ SCH ×3 (00:15→15:12)
[2019-01-24] MEDS: ACETAMINOPHEN IV (For NPO) 1,000 MG in EMPTY BAG 1 BAG IVPB SCH ×2 (00:18→06:05)
[2019-01-24] MEDS: PIPERACILLIN-TAZOBACTAM 3.375 GM in SODIUM CHLORIDE 0.9% 100 ML IVPB SCH ×3 (00:23→15:12)
[2019-01-24] MEDS: HYDROmorphone 1 MG/ML 1 ML SYRINGE IVP PRN ×9 (00:54→22:11)
[2019-01-24] MEDS: IPRATROPIUM-ALBUTEROL 3 ML NEB INHALATION SCH ×4 (01:41→20:06)
[2019-01-24] MEDS: SODIUM CHLORIDE 0.9% 1,000 ML IV SCH ×2 (03:36→10:12)
[2019-01-24 04:35] LABS: Basophils % (A) 0 %; Eosinophils # (A) 0.1 k/uL (0-0.7); Eosinophils % (A) 0 %; HCT 38.6 % (39.0-53.0); HGB 11.7 gm/dL (13.0-17.5); Hypochromasia Slight; Lymphocytes # (A) 0.7 k/uL (1.0-4.8); Lymphocytes % (A) 5 %; MCH 30.3 pg (25.0-35.0); MCHC 30.3 g/dL (31.0-37.0); MCV 99.9 fL (80.0-100.0); Macrocytosis Slight; Mean Platelet Volume 7.2; Monocytes # (A) 0.3 k/uL (0-1.0); Monocytes % (A) 2 %; Neutrophils # (A) 13.3 k/uL (1.3-7.7); Neutrophils % (A) 92 %; Platelet Count 478 k/uL (150-450); RBC 3.87 m/uL (4.30-5.90); RDW 15.7 % (11.5-15.5); WBC 14.5 k/uL (3.8-10.6)
[2019-01-24 04:52] LABS: Anion Gap 5 mmol/L; Blood Urea Nitrogen 26 mg/dL (9-20); Calcium 7.3 mg/dL (8.4-10.2); Carbon Dioxide 24 mmol/L (22-30); Chloride 110 mmol/L (98-107); Glucose 89 mg/dL (74-99); Potassium 4.9 mmol/L (3.5-5.1); Sodium 139 mmol/L (137-145)
[2019-01-24] MEDS ORDERED: FUROSEMIDE 10 MG/ML 2 ML VIAL IV ONE (07:31)
[2019-01-24 08:14] LABS: ABG Base Excess 0.3 mmol/L; ABG HCO3 26 mmol/L (21-25); ABG PCO2 52 mmHg (35-45); ABG PH 7.32 (7.35-7.45); ABG PO2 79 mmHg (83-108); ABG TCO2 28 mmol/L (19-24)
[2019-01-24] MEDS: metroNIDAZOLE-NS PMX 500 MG in SALINE 1 100ML.BAG IVPB SCH ×2 (10:12→15:12)
[2019-01-24] MEDS: PANTOPRAZOLE 40 MG/10 ML VIAL IVP SCH (10:13)
[2019-01-24] MEDS: FLUCONAZOLE IN NACL,ISO-OSM 200 MG in SALINE 1 100ML.BAG IVPB SCH (10:30)
--- NOTE | 2019-01-24 10:58 | P.PN ---
Subjective Progress Note Date: 01/24/19 Principal diagnosis: Perforated duodenal ulcer The patient is doing well. He is awake and alert. He is requesting more to eat. Objective - Vital Signs Vital signs: Vital Signs Temp 98 F 01/24/19 04:00 Pulse 92 01/24/19 08:04 Resp 12 01/24/19 07:00 BP 131/76 01/23/19 20:00 Pulse Ox 94 L 01/24/19 07:56 Intake & Output 01/23/19 01/24/19 01/24/19 18:59 06:59 18:59 Intake Total 3012 2112 126 Output Total 655 610 45 Balance 2357 1502 81 Weight 79.1 kg Intake: IV 3012 2 126 ACETAMINOPHEN IV (For NPO 400 ) 1,000 mg In Empty Bag 1 bag @ 400 mls/hr IVPB Q6HR [facility] Rx#:[id number] Fluconazole in NaCl,Iso- 100 Osm 200 mg In Saline 1 100ml.bag @ 100 mls/hr IVPB DAILY [facility] Rx#: [id number] Piperacillin-Tazobactam 3 200 100 .375 gm In Sodium Chloride 0.9% 100 ml @ 25 mls/hr IVPB Q8HR [facility] Rx# :[id number] Pressure 72 72 6 Sodium Chloride 0.9% 1, 1440 1440 120 000 ml @ 120 mls/hr IV . Q8H20M [facility] Rx#:[id number] Sodium Chloride 0.9% 1, 1000 000 ml @ 999 mls/hr IV . Q1H1M [facility] Rx#:[id number] metroNIDAZOLE-NS PMX 500 200 100 mg In Saline 1 100ml.bag @ 100 mls/hr IVPB Q8HR [facility] Rx#:[id number] Output: Drainage 130 130 Right Lower Abdomen 130 130 Urine 525 480 45 Other: Voiding Method Indwelling Catheter Indwelling Catheter ABP, PAP, CO, CI - Last Documented Arterial Blood Pressure 115/84 - Constitutional General appearance: Present: average body habitus - Gastrointestinal Gastrointestinal Comment(s): Abdomen soft. Incision site is clean dry intact. TAHMINA drain has mainly serous. - Labs CBC & Chem 7: 01/24/19 04:23 01/24/19 04:23 Labs: Abnormal Lab Results - Last 24 Hours (Table) 01/24/19 01/24/19 01/24/19 Range/Units 04:23 04:23 08:05 WBC 14.5 H (3.8-10.6) k/uL RBC 3.87 L (4.30-5.90) m/uL Hgb 11.7 L (13.0-17.5) gm/dL Hct 38.6 L (39.0-53.0) % MCHC 30.3 L (31.0-37.0) g/dL RDW 15.7 H (11.5-15.5) % Plt Count 478 H (150-450) k/uL Neutrophils # 13.3 H (1.3-7.7) k/uL Lymphocytes # 0.7 L (1.0-4.8) k/uL ABG pH 7.32 L (7.35-7.45) ABG pCO2 52 H (35-45) mmHg ABG pO2 79 L (83-108) mmHg ABG HCO3 26 H (21-25) mmol/L ABG Total CO2 28 H (19-24) mmol/L Chloride 110 H (98-107) mmol/L BUN 26 H (9-20) mg/dL Creatinine 0.62 L (0.66-1.25) mg/dL Calcium 7.3 L (8.4-10.2) mg/dL Microbiology - Last 24 Hours (Table) 01/22/19 15:45 Blood Culture - Preliminary Blood No Growth after 24 hours 01/22/19 23:41 Gram Stain - Preliminary Sputum Sputum Culture - Preliminary 01/23/19 01:50 Urine Culture - Preliminary Urine,Catheterized Assessment and Plan Assessment: Status post repair of duodenal ulcer. Patient will remain nothing by mouth. We will start clear liquids hopefully tomorrow.
[2019-01-24 12:10] LABS: Glucose,Whole Blood 98 mg/dL (75-99)
--- NOTE | 2019-01-24 12:24 | XR ---
EXAMINATION TYPE: XR chest 1V portable DATE OF EXAM: 01/24/2019 COMPARISON: 01/23/2019 INDICATION: Tube placement TECHNIQUE: Single frontal view of the chest is obtained. FINDINGS: The heart size is normal. The pulmonary vasculature is normal. Bibasilar infiltrates are present. This appears to be worsening. Correlate for atelectasis and pneumo torie. Azygos fissure is present. Old left rib fractures are present. Right central venous catheter is present with the tip in the superior vena cava region, stable. Nasog astric tube transverses the thorax. Endotracheal tube is not clearly identified. IMPRESSION: 1. Bibasilar infiltrates worsening. Correlate for atelectasis and pneumonia. 2. Lines and catheters discussed above
--- NOTE | 2019-01-24 12:24 | P.PN ---
Subjective Progress Note Date: 01/24/19 On 01/24/2019 patient is postop day #2. He was on BiPAP throughout the night. This morning he was started on the BiPAP. I took the BiPAP off and switch this patient to a nasal cannula at 5 L in the blood gases showed a pH of 7.32 with a pCO2 of 52 and pO2 of 79. Despite this has not acidosis, the patient's, comfortable. NG tube is in place. Output has been noted. Bowel activity is still extremely sluggish at this point in time. Surgical wound site is clean. TAHMINA drain is in place. No nausea. No vomiting. No abdominal pain. No fever. No chills. Using incentive spirometer. No significant issues with pain. The patient is on a combination of Zosyn and Levaquin and Diflucan. He is postop day #2 as the patient was found to have a perforated duodenal ulcer and he underwent repair of the ulcer with a repair of an incarcerated umbilical hernia. The triple-lumen cath is in place. Artline catheter is also in place. No confusion. No altered mentation. Is doing well for now. He is on stress dose hydrocortisone. Objective - Vital Signs Vital signs: Vital Signs Temp 98.1 F 01/24/19 12:00 Pulse 100 01/24/19 12:00 Resp 26 H 01/24/19 12:00 BP 131/76 01/23/19 20:00 Pulse Ox 96 01/24/19 12:00 Intake & Output 01/23/19 01/24/19 01/24/19 18:59 06:59 18:59 Intake Total 3012 2112 656 Output Total 954 503 6621 Balance 2357 1502 -1339 Weight 79.1 kg Intake: IV 3012 2112 656 ACETAMINOPHEN IV (For NPO 400 ) 1,000 mg In Empty Bag 1 bag @ 400 mls/hr IVPB Q6HR [facility] Rx#:[id number] Fluconazole in NaCl,Iso- 100 100 Osm 200 mg In Saline 1 100ml.bag @ 100 mls/hr IVPB DAILY [facility] Rx#: [id number] Piperacillin-Tazobactam 3 200 100 100 .375 gm In Sodium Chloride 0.9% 100 ml @ 25 mls/hr IVPB Q8HR [facility] Rx# :[id number] Pressure 72 72 36 Sodium Chloride 0.9% 1, 1440 1440 320 000 ml @ 120 mls/hr IV . Q8H20M [facility] Rx#:[id number] Sodium Chloride 0.9% 1, 1000 000 ml @ 999 mls/hr IV . Q1H1M [facility] Rx#:[id number] metroNIDAZOLE-NS PMX 500 200 100 100 mg In Saline 1 100ml.bag @ 100 mls/hr IVPB Q8HR [facility] Rx#:[id number] Output: Gastric Drainage 500 Drainage 130 130 Right Lower Abdomen 130 130 Urine 572 662 4498 Other: Voiding Method Indwelling Catheter Indwelling Catheter ABP, PAP, CO, CI - Last Documented Arterial Blood Pressure 163/70 - Exam Gen. appearance is calm comfortable cushingoid nonacute distress currently tolerating a BiPAP at a pressure of 10/5 with an FiO2 of 50%, and he was weaned down to 8 L of oxygen by nasal cannula Head exam was generally normal. There was no scleral icterus or corneal arcus. Mucous membranes were moist.. The patient is cushingoid features related to chronic steroid use. Neck was supple and without jugular venous distension, thyromegaly, or carotid bruits. Carotids were easily palpable bilaterally. There was no adenopathy. The patient has a right IJ triple-lumen catheter in place. Lungs sounds are diminished bilaterally and the patient has coarse crackles in the mid and lower lung brown bilaterally consistent with pulmonary fibrosis Cardiac exam revealed the PMI to be normally situated and sized. The rhythm was regular and no extrasystoles were noted during several minutes of auscultation. The first and second heart sounds were normal and physiologic splitting of the second heart sound was noted. There were no murmurs, rubs, clicks, or gallops. Abdomen is soft. Bowel sounds are hypoactive and very sluggish. Surgical wound site is dry clean and intact. TAHMINA drains in place. No direct tenderness. No rebound tenderness. No guarding. Examination of the extremities revealed easily palpable radial, femoral and pedal pulses. There was no cyanosis, clubbing or edema. Examination of the skin revealed no evidence of significant rashes, suspicious appearing nevi or other concerning lesions. Neurologically is awake and alert and there is a focal neurological deficit. - Labs CBC & Chem 7: 01/24/19 04:23 01/24/19 04:23 Labs: Abnormal Lab Results - Last 24 Hours (Table) 01/24/19 01/24/19 01/24/19 Range/Units 04:23 04:23 08:05 WBC 14.5 H (3.8-10.6) k/uL RBC 3.87 L (4.30-5.90) m/uL Hgb 11.7 L (13.0-17.5) gm/dL Hct 38.6 L (39.0-53.0) % MCHC 30.3 L (31.0-37.0) g/dL RDW 15.7 H (11.5-15.5) % Plt Count 478 H (150-450) k/uL Neutrophils # 13.3 H (1.3-7.7) k/uL Lymphocytes # 0.7 L (1.0-4.8) k/uL ABG pH 7.32 L (7.35-7.45) ABG pCO2 52 H (35-45) mmHg ABG pO2 79 L (83-108) mmHg ABG HCO3 26 H (21-25) mmol/L ABG Total CO2 28 H (19-24) mmol/L Chloride 110 H (98-107) mmol/L BUN 26 H (9-20) mg/dL Creatinine 0.62 L (0.66-1.25) mg/dL Calcium 7.3 L (8.4-10.2) mg/dL Microbiology - Last 24 Hours (Table) 01/22/19 23:41 Gram Stain - Preliminary Sputum Sputum Culture - Preliminary Pseudomonas spec 01/23/19 01:50 Urine Culture - Final Urine,Catheterized 01/22/19 15:45 Blood Culture - Preliminary Blood No Growth after 24 hours Assessment and Plan Plan: 1 pneumoperitoneum and the patient is status post expiratory laparotomy and repair of a perforated duodenal ulcer and repair of an incarcerated umbilical hernia. The patient is postop day #2. The patient is hemodynamically stable. The patient is currently on a combination of Zosyn and Flagyl and Diflucan. He is well resuscitated. The patient was weaned off and extubated and currently is alternating between a BiPAP and high flow oxygen at 8 L per minute nasal cannula. 2 ventilator management. The patient was extubated and the patient is currently on a BiPAP at a pressure of 10/5 cm of water with an FiO2 of 50% and his alternating with 8 L of oxygen by nasal cannula. He has chronic hypoxic respiratory failure. He has acute on chronic hypercapnic respiratory failure. He is extubated. 3 acute leukocytosis secondary to above, improving 4 acute sinus tachycardia secondary to above 5 mild lactic acidosis 6 advanced COPD with pulmonary fibrosis, steroid dependent with chronic hypoxic and hypercapnic respiratory failure 7 chronic exertional dyspnea secondary to COPD/pulmonary fibrosis 8 rheumatoid arthritis 9 obstructive sleep apnea not receiving any CPAP therapy at this point in time 10 chronic back pain 11 hyperlipidemia 12 osteoarthritis Plan Reduced IV fluids to 50 mL an hour of normal saline. Give the patient dose of Lasix 20 mg IV push. Oxygen at 8 L per minute nasal cannula alternates with BiPAP for respiratory support. Blood gases been noted. Keep NG tube in place. Monitor the output. Hypoactive bowel sounds. No bowel activity or flatus yet. Keep him in ICU for now. Continue same antibiotic coverage. Continue stress dose hydrocortisone regarding his chronic prednisone intake.
--- NOTE | 2019-01-24 15:53 | P.CONS ---
History of Present Illness - Reason for Consult Consult date: 01/24/19 Abdominal abscess Requesting physician: Ashia Mireles - Chief Complaint Abdominal pain - History of Present Illness Patient is a 68 year old male presenting to the ER at [facility] on 01/22/2019 with a chief complaints of abdominal pain that apparently woke up the patient around 2 in the morning patient pain has been across his entire abdominal without any alleviating or aggravating factor family the patient did have a similar pain about a week ago for the patient was evaluated at [facility] he did have C. diff abdominal was negative, the patient did have a CT of abdominal pelvis repeated here which was felt to formation with a small amount of ascites within the upper mesentery small amount of local it is extended to the bowel was made observed suggesting early abscess formation, patient was evaluated by surgery he was taken to the OR and status post exploratory laparotomy noticed to have perforated duodenal ulcer patient is status post repair of perforated ulcer and repair of incarcerated umbilical hernia patient has been treated with Zosyn and Flagyl and Diflucan infectious disease was consulted for further recommendation regarding antibiotic therapy. The patient has been afebrile throughout his hospital stay patient did have elevated white count was 16.2 on admission is slightly down to 14.5 today the patient is a breathing comfortably did mention his abdominal pain is currently controlled with the pain medication the patient did have NG to suction denies having any nausea and vomiting no chest pain or shortness of breath he did have some cough denies having any diarrhea or any other symptoms Review of Systems Positive points has been mentioned in HPI rest of the systems are negative Past Medical History Past Medical History: COPD, Hyperlipidemia, Osteoarthritis (OA), Pneumonia, Rheumatoid Arthritis (RA), Sleep Apnea/CPAP/BIPAP Additional Past Medical History / Comment(s): Pneumonia with sepsis twice-10/2017 and in 2016. 3.5L home o2, PATTY with no device (cannot tolerate), recently injured low back-saw Dr. Dye. Rheumatoid arthritis in bilateral hips,knees hands and back. History of Any Multi-Drug Resistant Organisms: None Reported Past Surgical History: Orthopedic Surgery Additional Past Surgical History / Comment(s): bilateral cataract removals with lens implants, left knee arthroscopy, colonoscopy. Past Anesthesia/Blood Transfusion Reactions: No Reported Reaction Past Psychological History: Anxiety, Depression Additional Psychological History / Comment(s): Pt resides with his spouse of 38 yrs. He has home oxygen which he wears prn at 3.5L/NC. He has a nebulizer. Smoking Status: Former smoker Past Alcohol Use History: Occasional Additional Past Alcohol Use History / Comment(s): Pt started smoking as a teen and quit in 2011. He states he drinks 3-4 beers a day. Past Drug Use History: None Reported - Past Family History Father Family Medical History: Cancer Additional Family Medical History / Comment(s): Father of leukemia. Mother Family Medical History: Cancer, CVA/TIA, Dementia, Diabetes Mellitus Additional Family Medical History / Comment(s): Mother is 88yrs old. Cancer colon. Medications and Allergies Home Medications Medication Instructions Recorded Confirmed Type LORazepam [Ativan] 1 mg PO TID PRN 02/04/18 01/22/19 History predniSONE 10 mg PO DAILY #30 tab 02/05/18 01/22/19 Rx Benzonatate [Tessalon Perles] 100 mg PO TID PRN 01/22/19 01/22/19 History HYDROcodone/APAP 10-325MG [[place] 1 tab PO Q8H PRN 01/22/19 01/22/19 History 10-325] Sulfamethoxazole/Trimethoprim 1 tab PO BID 01/22/19 01/22/19 History [Bactrim DS 800-160 mg] metroNIDAZOLE [Flagyl] 500 mg PO TID 01/22/19 01/22/19 History Allergies Allergy/AdvReac Type Severity Reaction Status Date / Time amoxicillin AdvReac Nausea & Verified 01/22/19 13:48 Vomiting Physical Exam Vitals: Vital Signs Temp Pulse Pulse Resp BP Pulse Ox 01/24/19 15:00 94 13 95 01/24/19 14:00 86 101 H 12 94 L 01/24/19 13:00 95 12 94 L 01/24/19 12:40 96 01/24/19 12:00 98.1 F 100 26 H 96 01/24/19 11:00 88 40 H 95 01/24/19 10:00 101 H 26 H 96 01/24/19 09:00 96 12 95 01/24/19 08:04 92 01/24/19 08:00 98.1 F 94 19 97 01/24/19 07:56 93 94 L 01/24/19 07:00 92 12 96 01/24/19 06:00 98 17 95 01/24/19 05:00 100 26 H 97 01/24/19 04:00 98 F 101 H 20 90 L 01/24/19 03:00 92 13 97 01/24/19 02:00 104 H 18 97 01/24/19 01:53 98 01/24/19 01:41 98 01/24/19 01:00 95 13 96 01/24/19 00:23 89 12 96 01/24/19 00:00 98.1 F 99 19 94 L 01/23/19 23:00 97 23 92 L 01/23/19 22:00 98 17 99 01/23/19 21:00 98 21 95 01/23/19 20:00 98.4 F 95 17 131/76 96 01/23/19 19:41 92 01/23/19 19:26 96 01/23/19 19:25 97 01/23/19 19:00 89 11 L 97 01/23/19 18:00 94 16 131/76 95 01/23/19 17:00 92 20 133/81 96 01/23/19 16:00 98.1 F 93 19 122/74 96 Intake and Output 01/24/19 01/24/19 01/24/19 06:59 14:59 22:59 Intake Total 1408 768 56 Output Total 395 2420 100 Balance 1013 -5382 -44 Intake: IV 1408 768 56 ACETAMINOPHEN IV (For NPO 200 ) 1,000 mg In Empty Bag 1 bag @ 400 mls/hr IVPB Q6HR [facility] Rx#:[id number] Fluconazole in NaCl,Iso- 100 Osm 200 mg In Saline 1 100ml.bag @ 100 mls/hr IVPB DAILY [facility] Rx#: [id number] Piperacillin-Tazobactam 3 100 100 .375 gm In Sodium Chloride 0.9% 100 ml @ 25 mls/hr IVPB Q8HR [facility] Rx# :[id number] Pressure 48 48 6 Sodium Chloride 0.9% 1, 960 320 000 ml @ 120 mls/hr IV . Q8H20M [facility] Rx#:[id number] Sodium Chloride 0.9% 1, 100 50 000 ml @ 50 mls/hr IV . Q20H [facility] Rx#:[id number] metroNIDAZOLE-NS PMX 500 100 100 mg In Saline 1 100ml.bag @ 100 mls/hr IVPB Q8HR [facility] Rx#:[id number] Output: Gastric Drainage 500 Drainage 50 Right Lower Abdomen 50 Urine 345 1920 100 Other: Voiding Method Indwelling Catheter Indwelling Catheter Weight 79.1 kg ABP, PAP, CO, CI - Last 8 Hours Arterial Blood Pressure 153/57 Arterial Blood Pressure 164/59 Arterial Blood Pressure 160/65 Arterial Blood Pressure 169/66 Arterial Blood Pressure 163/70 Arterial Blood Pressure 161/66 Arterial Blood Pressure 138/73 Arterial Blood Pressure 157/68 Arterial Blood Pressure 158/67 GENERAL DESCRIPTION: Elderly male lying in bed, no distress. No tachypnea or accessory muscle of respiration use. HEENT: Shows Pallor , no scleral icterus. Oral mucous membrane is dry. NECK: Trachea central, no thyromegaly. LUNGS: Unlabored breathing. Some course breath sound at the base. No wheeze HEART: S1, S2, regular rate and rhythm. No loud murmur ABDOMEN: Soft, slightly distended, mild tenderness , no guarding or rigidity EXTREMITIES: No edema of feet. SKIN: No rash, no masses palpable. NEUROLOGICAL: The patient is awake, alert, oriented x3, mood and affect normal. Results CBC & Chem 7: 01/24/19 04:23 01/24/19 04:23 Labs: Abnormal Lab Results - Last 24 Hours (Table) 01/24/19 01/24/19 01/24/19 Range/Units 04:23 04:23 08:05 WBC 14.5 H (3.8-10.6) k/uL RBC 3.87 L (4.30-5.90) m/uL Hgb 11.7 L (13.0-17.5) gm/dL Hct 38.6 L (39.0-53.0) % MCHC 30.3 L (31.0-37.0) g/dL RDW 15.7 H (11.5-15.5) % Plt Count 478 H (150-450) k/uL Neutrophils # 13.3 H (1.3-7.7) k/uL Lymphocytes # 0.7 L (1.0-4.8) k/uL ABG pH 7.32 L (7.35-7.45) ABG pCO2 52 H (35-45) mmHg ABG pO2 79 L (83-108) mmHg ABG HCO3 26 H (21-25) mmol/L ABG Total CO2 28 H (19-24) mmol/L Chloride 110 H (98-107) mmol/L BUN 26 H (9-20) mg/dL Creatinine 0.62 L (0.66-1.25) mg/dL Calcium 7.3 L (8.4-10.2) mg/dL Microbiology - Last 24 Hours (Table) 01/22/19 23:41 Gram Stain - Preliminary Sputum Sputum Culture - Preliminary Pseudomonas spec 01/23/19 01:50 Urine Culture - Final Urine,Catheterized 01/22/19 15:45 Blood Culture - Preliminary Blood No Growth after 24 hours Assessment and Plan Assessment: Patient admitted to the hospital with abdominal pain in this patient who did have evidence of perforated duodenal ulcer status post laparotomy and repair of that ulcer in addition to repair of incarcerated ventral hernia the likely organism. Coronary with enteric gram-negative both anaerobes and less likely anaerobes in addition to Camilla 2-patient with amoxicillin ALLERGY on the chart however has tolerated Zosyn without any problem clinically doubt true penicillin ALLERGY (1) Abdominal abscess Current Visit: Yes Status: Acute Code(s): MQA1411 - SNOMED Code(s): 53308072 (2) Bowel perforation Current Visit: Yes Status: Acute Code(s): K63.1 - PERFORATION OF INTESTINE (NONTRAUMATIC) SNOMED Code(s): 46662305 Plan: 1-We will keep the patient on Zosyn 3.375 g every 8 in addition to IV Diflucan, however discontinue the Flagyl 2-gentle IV fluid We will follow her clinical condition and culture to further this medication if needed Thank you for this consultation will follow this patient along with you
[2019-01-24 21:05] LABS: Glucose,Whole Blood 89 mg/dL (75-99)
[2019-01-25] MEDS: HEPARIN SODIUM,PORCINE 5,000 UNIT/ML 1 ML VIAL SQ SCH ×3 (00:16→16:15)
[2019-01-25] MEDS: PIPERACILLIN-TAZOBACTAM 3.375 GM in SODIUM CHLORIDE 0.9% 100 ML IVPB SCH ×3 (00:17→16:15)
[2019-01-25] MEDS: HYDROCORTISONE SUCCINATE 100 MG/2 ML VIAL IV SCH ×3 (00:18→16:15)
[2019-01-25] MEDS: HYDROmorphone 1 MG/ML 1 ML SYRINGE IVP PRN ×6 (00:32→22:20)
[2019-01-25] MEDS: IPRATROPIUM-ALBUTEROL 3 ML NEB INHALATION SCH ×4 (03:07→20:19)
[2019-01-25] MEDS: SODIUM CHLORIDE 0.9% 1,000 ML IV SCH (03:47)
[2019-01-25 05:23] LABS: HCT 34.8 % (39.0-53.0); HGB 10.9 gm/dL (13.0-17.5); Hypochromasia Slight; MCH 30.4 pg (25.0-35.0); MCHC 31.1 g/dL (31.0-37.0); MCV 97.8 fL (80.0-100.0); Macrocytosis Slight; Mean Platelet Volume 8.1; Platelet Count 491 k/uL (150-450); RBC 3.56 m/uL (4.30-5.90); RDW 15.8 % (11.5-15.5); WBC 14.7 k/uL (3.8-10.6)
[2019-01-25 05:39] LABS: Anion Gap 2 mmol/L; Blood Urea Nitrogen 25 mg/dL (9-20); Calcium 7.4 mg/dL (8.4-10.2); Carbon Dioxide 31 mmol/L (22-30); Chloride 107 mmol/L (98-107); Glucose 98 mg/dL (74-99); Sodium 140 mmol/L (137-145)
--- NOTE | 2019-01-25 06:53 | P.PN ---
Subjective This is a 68 years old male with past medical history of COPD on home oxygen, hyperlipidemia, rheumatoid arthritis, sleep apnea on CPAP. Presents with abdominal pain , has been evaluated by surgery on admission and taken to the operation room found to have perforated duodenal ulcer and incarcerated umbilical hernia. After the surgery patient was taken to the intensive care unit, he got intubated. He was started on Zosyn, and Flagyl. He is also on Protonix for DVT prophylaxis. And he is in normal cement 120 L/h. Patient currently is not on pressors. He has J drain with 200 mL of bloody discharge from abdominal wound. NG tube was about 200 mL drainage. Currently patient is in ICU, vital showing blood pressure is 87/44, saturating 95% on FiO2 of 50%. Temperature 97.5. WBC 12.4 K, potassium 5.2 sodium 135. Creatinine 0.7. Urinalysis is not suspicious of infection. Chest x-ray: Interstitial lung disease, endotracheal tube is in place. CT of the abdomen and pelvis done prior to surgery was reviewed. EKG sinus tachycardia at 113. No significant ST-T changes. Subjective Date of service 01/24/2019 Patient went to the ICU. He is status post extubation. With no chest pain or dyspnea. Vitas looks stable. Still complaining from pain at the surgical abdominal site. No bowel movement yet. WBC 14.5 K. Creatinine 0.6. Objective - Vital Signs Vital signs: Vital Signs Temp 98.5 F 01/25/19 04:00 Pulse 84 01/25/19 06:00 Resp 24 01/25/19 06:00 BP 131/76 01/23/19 20:00 Pulse Ox 92 L 01/25/19 06:00 Intake & Output 01/24/19 01/24/19 01/25/19 06:59 18:59 06:59 Intake Total 2112 1248 613 Output Total 610 8654 926 Balance 8375 -2546 -564 Weight 79.1 kg 77.8 kg Intake: IV 2112 1248 613 ACETAMINOPHEN IV (For NPO 400 ) 1,000 mg In Empty Bag 1 bag @ 400 mls/hr IVPB Q6HR [facility] Rx#:[id number] Fluconazole in NaCl,Iso- 100 Osm 200 mg In Saline 1 100ml.bag @ 100 mls/hr IVPB DAILY [facility] Rx#: [id number] Piperacillin-Tazobactam 3 100 200 .375 gm In Sodium Chloride 0.9% 100 ml @ 25 mls/hr IVPB Q8HR [facility] Rx# :[id number] Pressure 72 78 63 Sodium Chloride 0.9% 1, 1440 320 000 ml @ 120 mls/hr IV . Q8H20M [facility] Rx#:[id number] Sodium Chloride 0.9% 1, 350 550 000 ml @ 50 mls/hr IV . Q20H [facility] Rx#:[id number] metroNIDAZOLE-NS PMX 500 100 200 mg In Saline 1 100ml.bag @ 100 mls/hr IVPB Q8HR [facility] Rx#:[id number] Output: Gastric Drainage 500 250 Drainage 130 25 Right Lower Abdomen 130 25 Urine 480 2240 510 Emesis 150 Other: Voiding Method Indwelling Catheter Indwelling Catheter Indwelling Catheter ABP, PAP, CO, CI - Last Documented Arterial Blood Pressure 162/63 - Exam GENERAL: The patient is alert oriented, not in distress HEENT: Pupils are round and equally reacting to light. EOMI. No scleral icterus. No conjunctival pallor. Normocephalic, atraumatic. No pharyngeal erythema. No thyromegaly. CARDIOVASCULAR: S1 and S2 present. No murmurs, rubs, or gallops. PULMONARY: Chest is clear to auscultation, no wheezing or crackles. ABDOMEN: Soft, is status post exploratory laparotomy, dressing is in place, wound is CLOSED. MUSCULOSKELETAL: No joint swelling or deformity. EXTREMITIES: No cyanosis, clubbing, or pedal edema. NEUROLOGICAL: Gross neurological examination did not reveal any focal deficits. SKIN: No rashes. - Labs CBC & Chem 7: 01/25/19 05:10 01/25/19 05:10 Labs: Abnormal Lab Results - Last 24 Hours (Table) 01/24/19 01/25/19 01/25/19 Range/Units 08:05 05:10 05:10 WBC 14.7 H (3.8-10.6) k/uL RBC 3.56 L (4.30-5.90) m/uL Hgb 10.9 L (13.0-17.5) gm/dL Hct 34.8 L (39.0-53.0) % RDW 15.8 H (11.5-15.5) % Plt Count 491 H (150-450) k/uL ABG pH 7.32 L (7.35-7.45) ABG pCO2 52 H (35-45) mmHg ABG pO2 79 L (83-108) mmHg ABG HCO3 26 H (21-25) mmol/L ABG Total CO2 28 H (19-24) mmol/L Carbon Dioxide 31 H (22-30) mmol/L BUN 25 H (9-20) mg/dL Creatinine 0.57 L (0.66-1.25) mg/dL Calcium 7.4 L (8.4-10.2) mg/dL Microbiology - Last 24 Hours (Table) 01/22/19 15:45 Blood Culture - Preliminary Blood No Growth after 48 hours 01/22/19 23:41 Gram Stain - Preliminary Sputum Sputum Culture - Preliminary Pseudomonas spec 01/23/19 01:50 Urine Culture - Final Urine,Catheterized Assessment and Plan Assessment: Acute abdomen, status post exploratory laparotomy with perforated duodenal ulcer and incarcerated umbilical hernia Acute hypoxic respiratory failure. Acute COPD exacerbation Hyperlipidemia History of rheumatoid arthritis Plan: This is a 68 years old male who presents with perforated duodenal ulcers and incarcerated hernia, status post exploratory laparotomy. Patient after the surgery went to the intensive care unit. Status post intubating. Critical care team and surgery team R following the case closely. Continue with pain management, IV fluids and antibiotic.Labs and medication were reviewed.. Continue same treatment. Continue with symptomatic treatment. Resume home medication. Monitor lytes and vitals. DVT and GI prophylaxis. Further recommendations of the clinical course of the patient DVT prophylaxis: Subcutaneous heparin GI Prophylaxis: PPI Prognosis is guarded
--- NOTE | 2019-01-25 07:48 | XR ---
EXAMINATION TYPE: XR chest 1V portable DATE OF EXAM: 01/25/2019 COMPARISON: Prior chest x-ray 01/24/2019 HISTORY: Abnormal chest x-ray, ICU management TECHNIQUE: Single frontal view of the chest is obtained. FINDINGS: Right jugular central venous catheter shows the distal tip overlying superior vena cava. G astric tube is present with the tube coursing into the region of the stomach, distal tip not included in the exam. Interstitium is increased bilaterally. Heart size is stable and enlarged. Bibasilar inc reased density persists. There is an azygos lobe. No pneumothorax. Old left-sided rib fractures are p resent. IMPRESSION: Correlate to exclude volume overload, pulmonary venous hypertension and interstitial maribel ma. Possible basilar atelectasis versus edema, correlate to exclude pneumonia. Follow-up recommended.
--- NOTE | 2019-01-25 09:55 | P.PN ---
Progress Note - Text Progress Note Date: 01/25/19 The patient is resting comfortably in his bed. He states he is hungry. He is requesting something to eat. His NG tube had 350 mL of mainly icewater in the NG tube canister. On exam his vital signs appear stable. His abdomen is soft. Incisions clean dry intact. TAHMINA drain has mainly serous. Status post repair of duodenal ulcer. Patient will have nasogastric tube removed today. We will start clear liquids tomorrow.
[2019-01-25] MEDS: PANTOPRAZOLE 40 MG/10 ML VIAL IVP SCH (10:49)
--- NOTE | 2019-01-25 11:20 | P.PN ---
Subjective Progress Note Date: 01/25/19 On today's evaluation of 01/25/2019 the patient is postop day #3. Awake and alert. He is currently off the BiPAP. No significant respiratory distress. Upper from the NG tube has been 100 mL over the past 8 hours. Hypoactive bowel sounds. No flatus or bowel movements.. Surgical wound site is clean. TAHMINA drains in place. Surgery evaluated the patient and the NG tube was removed today. He is taking only shifts for now. No Significant pain and the patient is on hydrocortisone stress dose. Producing adequate amount of urine output. No fever. No chills. No altered mentation. He has a chronic cough. He has limited sputum production. His previous sputum analysis at shown Pseudomonas species. The patient is on IV Zosyn. We'll be awaiting further cultures and sensitivities. Objective - Vital Signs Vital signs: Vital Signs Temp 98.3 F 01/25/19 08:00 Pulse 70 01/25/19 10:00 Resp 25 H 01/25/19 10:00 BP 137/71 01/25/19 10:00 Pulse Ox 94 L 01/25/19 10:00 Intake & Output 01/24/19 01/25/19 01/25/19 18:59 06:59 18:59 Intake Total 1248 613 235 Output Total 2740 935 550 Balance -3772 -322 -885 Weight 77.8 kg Intake: IV 1248 613 235 Fluconazole in NaCl,Iso- 100 Osm 200 mg In Saline 1 100ml.bag @ 100 mls/hr IVPB DAILY [facility] Rx#: [id number] Piperacillin-Tazobactam 3 200 .375 gm In Sodium Chloride 0.9% 100 ml @ 25 mls/hr IVPB Q8HR [facility] Rx# :[id number] Pressure 78 63 15 Sodium Chloride 0.9% 1, 320 000 ml @ 120 mls/hr IV . Q8H20M [facility] Rx#:[id number] Sodium Chloride 0.9% 1, 350 550 220 000 ml @ 50 mls/hr IV . Q20H [facility] Rx#:[id number] metroNIDAZOLE-NS PMX 500 200 mg In Saline 1 100ml.bag @ 100 mls/hr IVPB Q8HR [facility] Rx#:[id number] Output: Gastric Drainage 500 250 350 Drainage 25 Right Lower Abdomen 25 Urine 2240 510 200 Emesis 150 0 Other: Voiding Method Indwelling Catheter Indwelling Catheter Indwelling Catheter ABP, PAP, CO, CI - Last Documented Arterial Blood Pressure 146/47 - Exam Gen. appearance is calm comfortable cushingoid nonacute distress currently on oxygen at 6 L per minute nasal cannula with a pulse ox of 94%. NG tube has been removed. Head exam was generally normal. There was no scleral icterus or corneal arcus. Mucous membranes were moist.. The patient is cushingoid features related to chronic steroid use. Neck was supple and without jugular venous distension, thyromegaly, or carotid bruits. Carotids were easily palpable bilaterally. There was no adenopathy. The patient has a right IJ triple-lumen catheter in place. Lungs sounds are diminished bilaterally and the patient has coarse crackles in the mid and lower lung brown bilaterally consistent with pulmonary fibrosis Cardiac exam revealed the PMI to be normally situated and sized. The rhythm was regular and no extrasystoles were noted during several minutes of auscultation. The first and second heart sounds were normal and physiologic splitting of the second heart sound was noted. There were no murmurs, rubs, clicks, or gallops. Abdomen is soft. Bowel sounds are hypoactive and very sluggish. Surgical wound site is dry clean and intact. TAHMINA drains in place. No direct tenderness. No rebound tenderness. No guarding. Examination of the extremities revealed easily palpable radial, femoral and pedal pulses. There was no cyanosis, clubbing or edema. Examination of the skin revealed no evidence of significant rashes, suspicious appearing nevi or other concerning lesions. Neurologically is awake and alert and there is a focal neurological deficit. - Labs CBC & Chem 7: 01/25/19 05:10 01/25/19 05:10 Labs: Abnormal Lab Results - Last 24 Hours (Table) 01/25/19 01/25/19 Range/Units 05:10 05:10 WBC 14.7 H (3.8-10.6) k/uL RBC 3.56 L (4.30-5.90) m/uL Hgb 10.9 L (13.0-17.5) gm/dL Hct 34.8 L (39.0-53.0) % RDW 15.8 H (11.5-15.5) % Plt Count 491 H (150-450) k/uL Carbon Dioxide 31 H (22-30) mmol/L BUN 25 H (9-20) mg/dL Creatinine 0.57 L (0.66-1.25) mg/dL Calcium 7.4 L (8.4-10.2) mg/dL Microbiology - Last 24 Hours (Table) 01/22/19 15:45 Blood Culture - Preliminary Blood No Growth after 48 hours 01/22/19 23:41 Gram Stain - Preliminary Sputum Sputum Culture - Preliminary Pseudomonas spec 01/23/19 01:50 Urine Culture - Final Urine,Catheterized Assessment and Plan Plan: 1 pneumoperitoneum and the patient is status post expiratory laparotomy and repair of a perforated duodenal ulcer and repair of an incarcerated umbilical hernia. The patient is postop day #3. The patient is hemodynamically stable. The patient is currently on a combination of Zosyn and Flagyl and Diflucan. He is well resuscitated. The patient was weaned off the mechanical ventilator and had to be placed on BiPAP and currently is on oxygen between 5 l per minute nasal cannula. He is recovering well from the surgery. His NG tube has been r emoved. 2 ventilator management. The patient was extubated currently on 5 L of oxygen by nasal cannula 3 acute leukocytosis secondary to above, improving 4 acute sinus tachycardia secondary to above, improved 5 mild lactic acidosis 6 advanced COPD with pulmonary fibrosis, steroid dependent with chronic hypoxic and hypercapnic respiratory failure 7 chronic exertional dyspnea secondary to COPD/pulmonary fibrosis 8 rheumatoid arthritis 9 obstructive sleep apnea not receiving any CPAP therapy at this point in time 10 chronic back pain 11 hyperlipidemia 12 osteoarthritis 13 pseudomonas in the sputum, pending further cultures and sensitivities. Plan We will wean down the FiO2 as tolerated to maintain a saturation above 90%. Continue using incentive spirometer. Sputum is showing pseudomonas species and will continue the IV Zosyn for now pending further cultures and sensitivities. Sit him up on a chair. We will with NG tube. Ice chips only still the patient has more bowel activity and bowel movements. We'll continue to follow.
[2019-01-25] MEDS: FLUCONAZOLE IN NACL,ISO-OSM 200 MG in SALINE 1 100ML.BAG IVPB SCH (11:50)
[2019-01-25 11:55] LABS: Glucose,Whole Blood 93 mg/dL (75-99)
--- NOTE | 2019-01-25 15:55 | PN ---
PROGRESS NOTE DATE OF SERVICE: 01/25/2019. REASON FOR FOLLOWUP: Secondary peritonitis from perforated peptic ulcer disease. INTERVAL HISTORY: The patient is currently afebrile. Patient NG has been discontinued. The patient has been wanting to eat. No chest pain. No shortness of breath. Occasional cough. No nausea, vomiting. Did not have any bowel movement. PHYSICAL EXAMINATION: Blood pressure 152/63 with a pulse of 73, temperature 98.3. He is 97% on 6 L high-flow oxygen. General description is an elderly male lying in bed in no distress. Respiratory system: Unlabored breathing. Clear to auscultation anteriorly. Heart S1, S2. Regular rate and rhythm. Abdomen soft. No tenderness. LABS: Hemoglobin is 10.8, white count 14.7, BUN of 25, creatinine 0.57. Sputum with Pseudomonas aeruginosa. Urine cultures have been negative. Blood culture has been negative so far. DIAGNOSTIC IMPRESSION AND PLAN: Patient admitted to the hospital with abdominal pain , perforated peptic ulcer disease. The patient is status post laparotomy and operative repair of the same with repair of the incarcerated hernia. Sputum is showing a Pseudomonas aeruginosa. Chest x-ray is mostly volume overload with possible basilar atelectasis. Patient is currently covered with Zosyn and Diflucan to continue to continue while monitoring his clinical course closely. Continue supportive care. MMODL / IJN: [id number] / MTDD
[2019-01-25] MEDS: hydrALAZINE HCL 20 MG/ML 1 ML VIAL IVP PRN (21:19)
[2019-01-26] MEDS: PIPERACILLIN-TAZOBACTAM 3.375 GM in SODIUM CHLORIDE 0.9% 100 ML IVPB SCH ×3 (00:19→16:06)
[2019-01-26] MEDS: HYDROCORTISONE SUCCINATE 100 MG/2 ML VIAL IV SCH ×3 (00:20→16:06)
[2019-01-26] MEDS: hydrALAZINE HCL 20 MG/ML 1 ML VIAL IVP PRN ×3 (00:20→22:15)
[2019-01-26] MEDS: HYDROmorphone 1 MG/ML 1 ML SYRINGE IVP PRN ×9 (00:21→20:46)
[2019-01-26] MEDS: HEPARIN SODIUM,PORCINE 5,000 UNIT/ML 1 ML VIAL SQ SCH ×3 (00:21→16:06)
--- NOTE | 2019-01-26 00:58 | P.PN ---
Subjective This is a 68 years old male with past medical history of COPD on home oxygen, hyperlipidemia, rheumatoid arthritis, sleep apnea on CPAP. Presents with abdominal pain , has been evaluated by surgery on admission and taken to the operation room found to have perforated duodenal ulcer and incarcerated umbilical hernia. After the surgery patient was taken to the intensive care unit, he got intubated. He was started on Zosyn, and Flagyl. He is also on Protonix for DVT prophylaxis. And he is in normal cement 120 L/h. Patient currently is not on pressors. He has J drain with 200 mL of bloody discharge from abdominal wound. NG tube was about 200 mL drainage. Currently patient is in ICU, vital showing blood pressure is 87/44, saturating 95% on FiO2 of 50%. Temperature 97.5. WBC 12.4 K, potassium 5.2 sodium 135. Creatinine 0.7. Urinalysis is not suspicious of infection. Chest x-ray: Interstitial lung disease, endotracheal tube is in place. CT of the abdomen and pelvis done prior to surgery was reviewed. EKG sinus tachycardia at 113. No significant ST-T changes. Subjective Date of service 01/24/2019 Patient went to the ICU. He is status post extubation. With no chest pain or dyspnea. Vitas looks stable. Still complaining from pain at the surgical abdominal site. No bowel movement yet. WBC 14.5 K. Creatinine 0.6. 01/25/2019 pt is in ICU, he is awake and alert asking for food, still has NG tube with more than 300 ml drained , sluggish bowel movement, passing gas only, NG tube is planed to be taken off by surgery team and start on clear liquid diet tomorrow, sputum is growing pseudomonas and pt is currently on zosyn and diflucan, ID team are following the pt closely , WBC 14.7K, BMP is unremarkable, vials stable Objective - Vital Signs Vital signs: Vital Signs Temp 97.6 F 01/25/19 20:00 Pulse 77 01/25/19 21:00 Resp 20 01/25/19 21:00 BP 161/71 01/25/19 21:00 Pulse Ox 96 01/25/19 21:00 Intake & Output 01/25/19 01/25/19 01/26/19 06:59 18:59 06:59 Intake Total 613 1068 159 Output Total 935 935 105 Balance -322 133 54 Weight 77.8 kg 77.8 kg Intake: IV 613 868 159 Fluconazole in NaCl,Iso- 100 Osm 200 mg In Saline 1 100ml.bag @ 100 mls/hr IVPB DAILY [facility] Rx#: [id number] Piperacillin-Tazobactam 3 100 .375 gm In Sodium Chloride 0.9% 100 ml @ 25 mls/hr IVPB Q8HR [facility] Rx# :[id number] Pressure 63 48 9 Sodium Chloride 0.9% 1, 550 620 150 000 ml @ 50 mls/hr IV . Q20H [facility] Rx#:[id number] Oral 200 Output: Gastric Drainage 250 350 Drainage 25 10 15 Right Lower Abdomen 25 10 15 Urine 510 575 90 Emesis 150 0 Other: Voiding Method Indwelling Catheter Indwelling Catheter Indwelling Catheter ABP, PAP, CO, CI - Last Documented Arterial Blood Pressure 146/47 - Exam GENERAL: The patient is alert oriented, not in distress HEENT: Pupils are round and equally reacting to light. EOMI. No scleral icterus. No conjunctival pallor. Normocephalic, atraumatic. No pharyngeal erythema. No thyromegaly. CARDIOVASCULAR: S1 and S2 present. No murmurs, rubs, or gallops. PULMONARY: Chest is clear to auscultation, no wheezing or crackles. ABDOMEN: Soft, is status post exploratory laparotomy, dressing is in place, wound is CLOSED. MUSCULOSKELETAL: No joint swelling or deformity. EXTREMITIES: No cyanosis, clubbing, or pedal edema. NEUROLOGICAL: Gross neurological examination did not reveal any focal deficits. SKIN: No rashes. - Labs CBC & Chem 7: 01/25/19 05:10 01/25/19 05:10 Labs: Abnormal Lab Results - Last 24 Hours (Table) 01/25/19 01/25/19 Range/Units 05:10 05:10 WBC 14.7 H (3.8-10.6) k/uL RBC 3.56 L (4.30-5.90) m/uL Hgb 10.9 L (13.0-17.5) gm/dL Hct 34.8 L (39.0-53.0) % RDW 15.8 H (11.5-15.5) % Plt Count 491 H (150-450) k/uL Carbon Dioxide 31 H (22-30) mmol/L BUN 25 H (9-20) mg/dL Creatinine 0.57 L (0.66-1.25) mg/dL Calcium 7.4 L (8.4-10.2) mg/dL Microbiology - Last 24 Hours (Table) 01/22/19 15:45 Blood Culture - Preliminary Blood No Growth after 72 hours 01/22/19 23:41 Gram Stain - Final Sputum Sputum Culture - Final Pseudomonas aeruginosa Assessment and Plan Assessment: Acute abdomen, status post exploratory laparotomy with perforated duodenal ulcer and incarcerated umbilical hernia Acute hypoxic respiratory failure. Acute COPD exacerbation Hyperlipidemia History of rheumatoid arthritis Plan: This is a 68 years old male who presents with perforated duodenal ulcers and incarcerated hernia, status post exploratory laparotomy. Patient after the surgery went to the intensive care unit. Status post intubating. Critical care team and surgery team R following the case closely. Continue with pain management, IV fluids and antibiotic.Labs and medication were reviewed.. Continue same treatment. Continue with symptomatic treatment. Resume home medication. Monitor lytes and vitals. DVT and GI prophylaxis. Further rec ommendations of the clinical course of the patient DVT prophylaxis: Subcutaneous heparin GI Prophylaxis: PPI Prognosis is guarded
[2019-01-26] MEDS: IPRATROPIUM-ALBUTEROL 3 ML NEB INHALATION SCH ×4 (01:32→19:09)
[2019-01-26] MEDS: SODIUM CHLORIDE 0.9% 1,000 ML IV SCH ×2 (02:15→20:53)
[2019-01-26 04:52] LABS: Basophils % (A) 0 %; Eosinophils % (A) 0 %; HCT 37.8 % (39.0-53.0); HGB 11.4 gm/dL (13.0-17.5); Hypochromasia Slight; Lymphocytes # (A) 0.6 k/uL (1.0-4.8); Lymphocytes % (A) 5 %; MCH 29.3 pg (25.0-35.0); MCHC 30.1 g/dL (31.0-37.0); MCV 97.3 fL (80.0-100.0); Mean Platelet Volume 7.3; Monocytes # (A) 0.4 k/uL (0-1.0); Monocytes % (A) 4 %; Neutrophils # (A) 9.8 k/uL (1.3-7.7); Neutrophils % (A) 90 %; Platelet Count 539 k/uL (150-450); RBC 3.89 m/uL (4.30-5.90); RDW 15.9 % (11.5-15.5); WBC 10.9 k/uL (3.8-10.6)
[2019-01-26 05:10] LABS: Anion Gap 4 mmol/L; Blood Urea Nitrogen 27 mg/dL (9-20); Calcium 7.7 mg/dL (8.4-10.2); Carbon Dioxide 31 mmol/L (22-30); Chloride 108 mmol/L (98-107); Glucose 95 mg/dL (74-99); Sodium 143 mmol/L (137-145)
--- NOTE | 2019-01-26 08:20 | XR ---
EXAMINATION TYPE: XR chest 1V portable DATE OF EXAM: 01/26/2019 COMPARISON: 01/25/2019, 02/04/2018 INDICATION: Tube placement TECHNIQUE: Single frontal view of the chest is obtained. FINDINGS: The heart size is normal. The pulmonary vasculature is prominent. There are increased lung markings present bilaterally. This is greater in the periphery of the lung bases. Portion of this may be chronic. There is a right central venous catheter with the tip in the superior vena cava, stable in position. The right base infiltrate there is a 1.5 cm nodular type density. This should be followed up to clear ing. This could be related to pneumonia. Azygos fissure is present. IMPRESSION: 1. Bibasilar infiltrates some of which are chronic. However, this is greater than 2018. Consider pulm onary edema within the differential. 2. Nodular density in the right lung base could be related to pneumonia. Follow-up to clearing is rec ommended
[2019-01-26] MEDS: FLUCONAZOLE IN NACL,ISO-OSM 200 MG in SALINE 1 100ML.BAG IVPB SCH (08:24)
[2019-01-26] MEDS: PANTOPRAZOLE 40 MG/10 ML VIAL IVP SCH (08:25)
--- NOTE | 2019-01-26 10:26 | P.PN ---
Progress Note - Text Progress Note Date: 01/26/19 The patient is resting comfortably in his bed. He is requesting some knee. He's had no nausea. His white count is 10.4. On exam is lesser stable. Abdomen soft. Incision sites clean dry intact. Patient was started on clear liquid diet.
--- NOTE | 2019-01-26 11:16 | P.PN ---
Subjective Progress Note Date: 01/26/19 On 01/26/2019, the patient is postop day #4. The patient is doing well. He is awake and alert. History requiring high flow oxygen at 10 L. He doesn't have much reserve and he desaturates easily. NG tube was removed yesterday and this morning the patient was given some clear liquid diet. Surgical wound site is clean. Output from the TAHMINA drain is minimal in the order of 30 mL over the past 24 hours. Surgical wound site is dry clean and intact. He is passing flatus. No bowel activity as. He remains on IV Zosyn. He is using incentive spirometer. He is on status post hydrocortisone. He is awake and alert. He has pseudomonas aeruginosa in his sputum for which she is covered with IV Zosyn. No other significant events overnight. Objective - Vital Signs Vital signs: Vital Signs Temp 97.7 F 01/26/19 08:00 Pulse 102 H 01/26/19 10:00 Resp 16 01/26/19 10:00 BP 144/73 01/26/19 10:00 Pulse Ox 94 L 01/26/19 10:00 Intake & Output 01/25/19 01/26/19 01/26/19 18:59 06:59 18:59 Intake Total 1068 1236 712 Output Total 935 485 165 Balance 133 751 547 Weight 77.8 kg 76.9 kg Intake: IV 868 736 412 Fluconazole in NaCl,Iso- 100 100 Osm 200 mg In Saline 1 100ml.bag @ 100 mls/hr IVPB DAILY [facility] Rx#: [id number] Piperacillin-Tazobactam 3 100 100 100 .375 gm In Sodium Chloride 0.9% 100 ml @ 25 mls/hr IVPB Q8HR [facility] Rx# :[id number] Pressure 48 36 12 Sodium Chloride 0.9% 1, 620 600 200 000 ml @ 50 mls/hr IV . Q20H [facility] Rx#:[id number] Oral 200 500 300 Output: Gastric Drainage 350 Drainage 10 15 0 Right Lower Abdomen 10 15 0 Urine 575 470 165 Emesis 0 0 Other: Voiding Method Indwelling Catheter Indwelling Catheter Indwelling Catheter ABP, PAP, CO, CI - Last Documented Arterial Blood Pressure 146/47 - Exam Gen. appearance is calm comfortable cushingoid nonacute distress currently on oxygen at 10 L per minute nasal cannula with a pulse ox of 94%. NG tube has been removed. Head exam was generally normal. There was no scleral icterus or corneal arcus. Mucous membranes were moist.. The patient is cushingoid features related to chronic steroid use. Neck was supple and without jugular venous distension, thyromegaly, or carotid bruits. Carotids were easily palpable bilaterally. There was no adenopathy. The patient has a right IJ triple-lumen catheter in place. Lungs sounds are diminished bilaterally and the patient has coarse crackles in the mid and lower lung brown bilaterally consistent with pulmonary fibrosis Cardiac exam revealed the PMI to be normally situated and sized. The rhythm was regular and no extrasystoles were noted during several minutes of auscultation. The first and second heart sounds were normal and physiologic splitting of the second heart sound was noted. There were no murmurs, rubs, clicks, or gallops. Abdomen is soft. Bowel sounds are hypoactive and very sluggish. Surgical wound site is dry clean and intact. TAHMINA drains in place. No direct tenderness. No rebound tenderness. No guarding. Examination of the extremities revealed easily palpable radial, femoral and pedal pulses. There was no cyanosis, clubbing or edema. Examination of the skin revealed no evidence of significant rashes, suspicious appearing nevi or other concerning lesions. Neurologically is awake and alert and there is a focal neurological deficit. - Labs CBC & Chem 7: 01/26/19 04:25 01/26/19 04:25 Labs: Abnormal Lab Results - Last 24 Hours (Table) 01/26/19 01/26/19 Range/Units 04:25 04:25 WBC 10.9 H (3.8-10.6) k/uL RBC 3.89 L (4.30-5.90) m/uL Hgb 11.4 L (13.0-17.5) gm/dL Hct 37.8 L (39.0-53.0) % MCHC 30.1 L (31.0-37.0) g/dL RDW 15.9 H (11.5-15.5) % Plt Count 539 H (150-450) k/uL Neutrophils # 9.8 H (1.3-7.7) k/uL Lymphocytes # 0.6 L (1.0-4.8) k/uL Chloride 108 H (98-107) mmol/L Carbon Dioxide 31 H (22-30) mmol/L BUN 27 H (9-20) mg/dL Creatinine 0.49 L (0.66-1.25) mg/dL Calcium 7.7 L (8.4-10.2) mg/dL Microbiology - Last 24 Hours (Table) 01/22/19 15:45 Blood Culture - Preliminary Blood No Growth after 72 hours 01/22/19 23:41 Gram Stain - Final Sputum Sputum Culture - Final Pseudomonas aeruginosa Assessment and Plan Plan: 1 pneumoperitoneum and the patient is status post expiratory laparotomy and repair of a perforated duodenal ulcer and repair of an incarcerated umbilical hernia. The patient is postop day #4. The patient is hemodynamically stable. The patient is currently on a combination of Zosyn and Diflucan. The NG tube has been removed and the patient is currently on liquid diet. 2 ventilator management. The patient was extubated currently on 10 L of oxygen by nasal cannula 3 acute leukocytosis secondary to above, improving 4 acute sinus tachycardia secondary to above, improved 5 mild lactic acidosis 6 advanced COPD with pulmonary fibrosis, steroid dependent with chronic hypoxic and hypercapnic respiratory failure 7 chronic exertional dyspnea secondary to COPD/pulmonary fibrosis 8 rheumatoid arthritis 9 obstructive sleep apnea not receiving any CPAP therapy at this point in time 10 chronic back pain 11 hyperlipidemia 12 osteoarthritis 13 pseudomonas aeruginosa in the sputum, infection is felt to be less likely. Consider colonization. Doubt a pseudomonal pneumonia. Plan Will continue tapering the FiO2 as tolerated. The patient be asked to continue using incentive spirometer. Advance diet as tolerated. He is currently on liquid diet. Monitor bowel sounds. Monitor for any bowel movement with activity. Last the patient to sit up on a chair. History cardiac is abdominal surgery. He has advanced lung disease in the form of COPD and fibrosis. Continue bronchodilators. Aspiration precautions. We'll continue to follow. Continue the stressors hydrocortisone to the patient out of the ICU.
--- NOTE | 2019-01-26 17:11 | PN ---
PROGRESS NOTE DATE OF SERVICE: 01/26/2019. REASON FOR FOLLOWUP: Perforated duodenal ulcer/secondary peritonitis. INTERVAL HISTORY: The patient is currently afebrile. The patient has been breathing comfortably. The patient was started on a clear liquid which the patient has been tolerating. Currently denies having any chest pain or cough or any abdominal pain. No nausea, no vomiting. PHYSICAL EXAMINATION: Blood pressure is 150/73 with a pulse of 82. Temperature 97.9. He is 93% on 15 L high- flow oxygen. General description is an elderly male lying in bed in no distress. Respiratory system: Unlabored breathing. Clear to auscultation anteriorly. Heart S1, S2. Regular rate and rhythm. Abdomen soft, mildly distended. No nuchal rigidity. LABS: Hemoglobin 11.4, white count 10.9 with a BUN of 27, creatinine 0.49. DIAGNOSTIC IMPRESSION AND PLAN: Patient with a perforated duodenal ulcer status post operative repair with likely compressed secondary peritonitis. The patient's sputum also showing Pseudomonas aeruginosa, however, no significant cough or worsening respiratory status. The patient is currently covered on Zosyn and Diflucan to continue while monitoring his clinical course closely. Continue supportive care. MMODL / IJN: [id number] /
[2019-01-27] MEDS: HEPARIN SODIUM,PORCINE 5,000 UNIT/ML 1 ML VIAL SQ SCH ×4 (00:38→23:21)
[2019-01-27] MEDS: HYDROCORTISONE SUCCINATE 100 MG/2 ML VIAL IV SCH ×4 (00:38→23:21)
[2019-01-27] MEDS: PIPERACILLIN-TAZOBACTAM 3.375 GM in SODIUM CHLORIDE 0.9% 100 ML IVPB SCH ×4 (00:38→23:22)
[2019-01-27] MEDS: HYDROmorphone 1 MG/ML 1 ML SYRINGE IVP PRN ×8 (00:39→17:46)
[2019-01-27] MEDS: IPRATROPIUM-ALBUTEROL 3 ML NEB INHALATION SCH ×4 (02:02→19:06)
[2019-01-27 04:43] LABS: Chloride 103 mmol/L (98-107)
[2019-01-27 04:46] LABS: Anion Gap 2 mmol/L; Blood Urea Nitrogen 17 mg/dL (9-20); Calcium 7.5 mg/dL (8.4-10.2); Carbon Dioxide 35 mmol/L (22-30); Glucose 124 mg/dL (74-99); Magnesium 2.3 mg/dL (1.6-2.3); Phosphorus 1.7 mg/dL (2.5-4.5); Potassium 3.2 mmol/L (3.5-5.1); Sodium 140 mmol/L (137-145)
[2019-01-27 04:52] LABS: Basophils % (A) 0 %; Eosinophils % (A) 0 %; HCT 36.8 % (39.0-53.0); HGB 11.5 gm/dL (13.0-17.5); Hypochromasia Slight; Lymphocytes # (A) 0.4 k/uL (1.0-4.8); Lymphocytes % (A) 4 %; MCH 30.2 pg (25.0-35.0); MCHC 31.2 g/dL (31.0-37.0); MCV 96.6 fL (80.0-100.0); Mean Platelet Volume 7.3; Monocytes # (A) 0.4 k/uL (0-1.0); Monocytes % (A) 5 %; Neutrophils # (A) 7.8 k/uL (1.3-7.7); Neutrophils % (A) 89 %; Platelet Count 458 k/uL (150-450); RBC 3.81 m/uL (4.30-5.90); RDW 15.7 % (11.5-15.5); WBC 8.7 k/uL (3.8-10.6)
[2019-01-27] MEDS ORDERED: Potassium Replacement Protocol 1 EACH MISC MISCELLANE PRN (04:59)
[2019-01-27] MEDS: POTASSIUM CHLORIDE 20 MEQ in WATER FOR INJECTION 1 100ML.BAG IVPB SCH ×2 (05:35→09:34)
[2019-01-27] MEDS: hydrALAZINE HCL 20 MG/ML 1 ML VIAL IVP PRN ×2 (06:06→13:53)
--- NOTE | 2019-01-27 06:17 | P.PN ---
Subjective This is a 68 years old male with past medical history of COPD on home oxygen, hyperlipidemia, rheumatoid arthritis, sleep apnea on CPAP. Presents with abdominal pain , has been evaluated by surgery on admission and taken to the operation room found to have perforated duodenal ulcer and incarcerated umbilical hernia. After the surgery patient was taken to the intensive care unit, he got intubated. He was started on Zosyn, and Flagyl. He is also on Protonix for DVT prophylaxis. And he is in normal cement 120 L/h. Patient currently is not on pressors. He has J drain with 200 mL of bloody discharge from abdominal wound. NG tube was about 200 mL drainage. Currently patient is in ICU, vital showing blood pressure is 87/44, saturating 95% on FiO2 of 50%. Temperature 97.5. WBC 12.4 K, potassium 5.2 sodium 135. Creatinine 0.7. Urinalysis is not suspicious of infection. Chest x-ray: Interstitial lung disease, endotracheal tube is in place. CT of the abdomen and pelvis done prior to surgery was reviewed. EKG sinus tachycardia at 113. No significant ST-T changes. Subjective Date of service 01/24/2019 Patient went to the ICU. He is status post extubation. With no chest pain or dyspnea. Vitas looks stable. Still complaining from pain at the surgical abdominal site. No bowel movement yet. WBC 14.5 K. Creatinine 0.6. 01/25/2019 pt is in ICU, he is awake and alert asking for food, still has NG tube with more than 300 ml drained , sluggish bowel movement, passing gas only, NG tube is planed to be taken off by surgery team and start on clear liquid diet tomorrow, sputum is growing pseudomonas and pt is currently on zosyn and diflucan, ID team are following the pt closely , WBC 14.7K, BMP is unremarkable, vials stable 01/26/2019 Patient remains in the ICU. His sputum culture is growing Pseudomonas, patient is currently on Zosyn. Chest x-ray possible right lower pneumonia but patient with no respiratory symptoms. Infectious disease are following the case closely. Patient is currently on clear liquid. Once daily, vitals are stable and patient is afebrile Objective - Vital Signs Vital signs: Vital Signs Temp 97.9 F 01/26/19 16:00 Pulse 70 01/26/19 17:00 Resp 22 01/26/19 17:00 BP 141/63 01/26/19 17:00 Pulse Ox 93 L 01/26/19 17:00 Intake & Output 01/25/19 01/26/19 01/26/19 18:59 06:59 18:59 Intake Total 1068 1236 1530 Output Total 935 485 470 Balance 966 734 1954 Weight 77.8 kg 76.9 kg Intake: IV 868 736 830 Fluconazole in NaCl,Iso- 100 100 Osm 200 mg In Saline 1 100ml.bag @ 100 mls/hr IVPB DAILY [facility] Rx#: [id number] Piperacillin-Tazobactam 3 100 100 200 .375 gm In Sodium Chloride 0.9% 100 ml @ 25 mls/hr IVPB Q8HR [facility] Rx# :[id number] Pressure 48 36 30 Sodium Chloride 0.9% 1, 620 600 500 000 ml @ 50 mls/hr IV . Q20H [facility] Rx#:[id number] Oral 200 500 700 Output: Gastric Drainage 350 Drainage 10 15 30 Right Lower Abdomen 10 15 30 Urine 575 470 440 Emesis 0 0 Other: Voiding Method Indwelling Catheter Indwelling Catheter Indwelling Catheter ABP, PAP, CO, CI - Last Documented Arterial Blood Pressure 146/47 - Exam GENERAL: The patient is alert oriented, not in distress HEENT: Pupils are round and equally reacting to light. EOMI. No scleral icterus. No conjunctival pallor. Normocephalic, atraumatic. No pharyngeal erythema. No thyromegaly. CARDIOVASCULAR: S1 and S2 present. No murmurs, rubs, or gallops. PULMONARY: Chest is clear to auscultation, no wheezing or crackles. ABDOMEN: Soft, is status post exploratory laparotomy, dressing is in place, wound is CLOSED. MUSCULOSKELETAL: No joint swelling or deformity. EXTREMITIES: No cyanosis, clubbing, or pedal edema. NEUROLOGICAL: Gross neurological examination did not reveal any focal deficits. SKIN: No rashes. - Labs CBC & Chem 7: 01/27/19 04:15 01/27/19 04:15 Labs: Abnormal Lab Results - Last 24 Hours (Table) 01/26/19 01/26/19 Range/Units 04:25 04:25 WBC 10.9 H (3.8-10.6) k/uL RBC 3.89 L (4.30-5.90) m/uL Hgb 11.4 L (13.0-17.5) gm/dL Hct 37.8 L (39.0-53.0) % MCHC 30.1 L (31.0-37.0) g/dL RDW 15.9 H (11.5-15.5) % Plt Count 539 H (150-450) k/uL Neutrophils # 9.8 H (1.3-7.7) k/uL Lymphocytes # 0.6 L (1.0-4.8) k/uL Chloride 108 H (98-107) mmol/L Carbon Dioxide 31 H (22-30) mmol/L BUN 27 H (9-20) mg/dL Creatinine 0.49 L (0.66-1.25) mg/dL Calcium 7.7 L (8.4-10.2) mg/dL Microbiology - Last 24 Hours (Table) 01/22/19 15:45 Blood Culture - Preliminary Blood No Growth after 96 hours Assessment and Plan Assessment: Acute abdomen, status post exploratory laparotomy with perforated duodenal ulcer and incarcerated umbilical hernia Acute hypoxic respiratory failure. Acute COPD exacerbation Hyperlipidemia History of rheumatoid arthritis Plan: This is a 68 years old male who presents with perforated duodenal ulcers and incarcerated hernia, status post exploratory laparotomy. Patient after the surgery went to the intensive care unit. Status post intubating. Critical care team and surgery team R following the case closely. Continue with pain manag ement, IV fluids and antibiotic.Labs and medication were reviewed.. Continue same treatment. Continue with symptomatic treatment. Resume home medication. Monitor lytes and vitals. DVT and GI prophylaxis. Further recommendations of the clinical course of the patient DVT prophylaxis: Subcutaneous heparin GI Prophylaxis: PPI Prognosis is guarded
[2019-01-27] MEDS: PANTOPRAZOLE 40 MG/10 ML VIAL IVP SCH (08:17)
[2019-01-27] MEDS: FLUCONAZOLE IN NACL,ISO-OSM 200 MG in SALINE 1 100ML.BAG IVPB SCH (08:18)
--- NOTE | 2019-01-27 08:45 | XR ---
EXAMINATION TYPE: XR chest 1V portable DATE OF EXAM: 01/27/2019 COMPARISON: CT thorax dated 02/04/2018 and chest x-ray dated 01/26/2019. HISTORY: Shortness of breath. Follow-up exam. TECHNIQUE: Single frontal view of the chest is obtained. FINDINGS: The previously seen 1.5 cm rounded nodule is less conspicuous on today's exam than on the prior of 01/26/2019. Peripheral basilar predominant reticulations suggests a component of fibrosis. Un derlying emphysema is seen. Azygos lobe is noted. Persistent right basilar opacity overall similar to the prior of 01/26/2019. Osseous structures are grossly intact. Cardiomediastinal silhouette is withi n normal limits of size. Right central venous catheter is unchanged. IMPRESSION: Suspected underlying pulmonary fibrosis and persistent right basilar opacity that may re present superimposed pneumonia. The nodular density seen on the prior of 01/26/2019 is less conspicuou s although 6 month follow-up CT was recommended on the exam of 02/04/2018 for which the patient is due is not performed at an outside institution.
--- NOTE | 2019-01-27 13:19 | P.PN ---
Subjective Progress Note Date: 01/27/19 Principal diagnosis: Acute pneumoperitoneum secondary to perforated duodenal ulcer. 68-year-old male patient came into the emergency department with a one-week history of abdominal pain. He initially went to [facility] emergency department with a CAT scan was done and the patient was told to have diverticulosis without diverticulitis. Over the past week, the patient developed progressive worsening his abdominal discomfort and today came into the emergency department having more pain and the pain was rather diffuse in nature. He had diminished appetite, diminished oral intake and he was having no significant bowel movements. No GI bleeding. Denies having any fever or chills. He was nauseated when he was getting progressively more lethargic and weak and short of breath. CAT scan of the abdomen was done in the emergency department and showed significant inflammatory changes in the epigastric region involving posterior aspect of the proximal transverse colon. There was evidence of pneumoperitoneum around that along with some inflammatory changes as well as some free fluid in the abdomen. The stomach itself appeared to be within normal limits. The patient has long-term history of COPD and pulmonary fibrosis. Based on his pulmonary function test in 2017 he has an FVC of 72% and FEV1 of 46% and he has been steroid dependent for the past few years taking prednisone a daily basis. He has also underlying rheumatoid arthritis and previously he was taking immunosuppression with Humira none for now. His oxygen dependent. Blood work showed a white cell count 16.2 with a hemoglobin of 14.9. Platelet count is at 519. He has a BUN of 27 creatinine of 0.7 and lactic acid was at 1.9 with a troponin being less than 0.01. LFTs are all within normal limits. He is tachycardic with temperature 98.2. He was having sinus tachycardia with a heart rate of 120. He is currently on 5 L of oxygen by nasal cannula with a pulse ox of 90%. The patient will be taken to the operating room. He was seen by the surgical team following that I've advised the patient coming back to the intensive care unit for further evaluation and treatment. He may need to be kept intubated overnight. On 01/26/2019, the patient is postop day #4. The patient is doing well. He is awake and alert. History requiring high flow oxygen at 10 L. He doesn't have much reserve and he desaturates easily. NG tube was removed yesterday and this morning the patient was given some clear liquid diet. Surgical wound site is clean. Output from the TAHMINA drain is minimal in the order of 30 mL over the past 24 hours. Surgical wound site is dry clean and intact. He is passing flatus. No bowel activity as. He remains on IV Zosyn. He is using incentive spirometer. He is on status post hydrocortisone. He is awake and alert. He has pseudomonas aeruginosa in his sputum for which she is covered with IV Zosyn. No other significant events overnight. Patient was reevaluated today on 01/27/2019, remains on high flow nasal cannula 7 L/m, continues to have significantly abnormal chest x-ray with diffuse interstitial lung disease consistent with pulmonary fibrosis, underlying pneumonia is not entirely ruled out. His FiO2 is being titrated down, patient is noted to be short of breath with any activity. His sputum was positive for pseudomonas aeruginosa, remains on Zosyn. All labs were reviewed today, potassium is a bit low at 3.2 being corrected as per protocol. Objective - Vital Signs Vital signs: Vital Signs Temp 98.3 F 01/27/19 08:00 Pulse 96 01/27/19 13:09 Resp 22 01/27/19 11:00 BP 131/70 01/27/19 11:00 Pulse Ox 91 L 01/27/19 11:00 Intake & Output 01/26/19 01/27/19 01/27/19 18:59 06:59 18:59 Intake Total 1939 1371 1321 Output Total 570 730 320 Balance 0536 050 7778 Weight 76.9 kg Intake: IV 939 786 721 Fluconazole in NaCl,Iso- 100 100 Osm 200 mg In Saline 1 100ml.bag @ 100 mls/hr IVPB DAILY [facility] Rx#: [id number] Piperacillin-Tazobactam 3 200 100 100 .375 gm In Sodium Chloride 0.9% 100 ml @ 25 mls/hr IVPB Q8HR [facility] Rx# :[id number] Potassium Chloride 20 meq 50 150 In Water For Injection 1 100ml.bag @ 50 mls/hr IVPB Q2H [facility] Rx#: [id number] Pressure 39 36 21 Sodium Chloride 0.9% 1, 600 600 350 000 ml @ 50 mls/hr IV . Q20H [facility] Rx#:[id number] Oral 1000 585 600 Output: Drainage 30 15 Right Lower Abdomen 30 15 Urine 540 715 320 Emesis 0 Other: Voiding Method Indwelling Catheter Indwelling Catheter Indwelling Catheter ABP, PAP, CO, CI - Last Documented Arterial Blood Pressure 146/47 - Exam Gen. appearance revealed a 68-year-old white male in no distress, on high flow nasal cannula. Noted to be short of breath with any activity. HEENT: Cushingoid, no neck masses, no JVD, no stridor, moist mucous membranes, PERRLA, EOMI. Lungs sounds minimal fine crackles at the bases, no rhonchi no wheezes mechanical chest expansion Cardiac exam revealed normal S1 and S2, no S3 gallop, no murmur. Abdomen is soft. Nontender, no megaly, no rebound, TAHMINA drain is noted Examination of the extremities no clubbing edema or cyanosis Examination of the skin revealed no rashes. Neurologically alert oriented 3, no gross focal neurologic deficits. Acute: Normal mood, affect and mental status examination. - Labs CBC & Chem 7: 01/27/19 04:15 01/27/19 04:15 Labs: Abnormal Lab Results - Last 24 Hours (Table) 01/27/19 01/27/19 Range/Units 04:15 04:15 RBC 3.81 L (4.30-5.90) m/uL Hgb 11.5 L (13.0-17.5) gm/dL Hct 36.8 L (39.0-53.0) % RDW 15.7 H (11.5-15.5) % Plt Count 458 H (150-450) k/uL Neutrophils # 7.8 H (1.3-7.7) k/uL Lymphocytes # 0.4 L (1.0-4.8) k/uL Potassium 3.2 L (3.5-5.1) mmol/L Carbon Dioxide 35 H (22-30) mmol/L Creatinine 0.39 L (0.66-1.25) mg/dL Glucose 124 H (74-99) mg/dL Calcium 7.5 L (8.4-10.2) mg/dL Phosphorus 1.7 L (2.5-4.5) mg/dL Microbiology - Last 24 Hours (Table) 01/22/19 15:45 Blood Culture - Preliminary Blood No Growth after 96 hours Assessment and Plan Assessment: Impression: 1 acute pneumoperitoneum secondary to perforation of duodenal ulcer status post treatment. Of duodenal ulcer and repair of incarcerated umbilical hernia postoperative day #5. 2 advanced COPD and severe pulmonary fibrosis with chronic hypoxic respiratory failure 3 history of rheumatoid arthritis 4 obstructive sleep apnea syndrome not compliant with CPAP. 5 chronic back pain 6 osteoarthritis 7 pseudomonas aeruginosa in the sputum, could be a colonization or could be secondary to pseudomonal pneumonia. Best to continue antibiotics at present since the patient's pulmonary status is rather marginal. Recommendation: Continue to treat with antibiotics, steroids, bronchodilators, incentive spirometry, hydrocortisone, prognosis is definitely poor and guarded considering his underlying interstitial lung disease and COPD. We'll continue to monitor in the ICU for the next 24 hours. Time with Patient: Less than 30
[2019-01-27] MEDS: SODIUM CHLORIDE 0.9% 1,000 ML IV SCH (15:56)
--- NOTE | 2019-01-27 15:59 | P.PN ---
Subjective Progress Note Date: 01/27/19 Principal diagnosis: Perforated duodenal ulcer Patient doing better today. Pain is gradually improving. TAHMINA drain serosanguineous. Tolerating clears. Less short of breath. White blood cell count normal. Objective - Vital Signs Vital signs: Vital Signs Temp 98 F 01/27/19 12:00 Pulse 101 H 01/27/19 15:00 Resp 23 01/27/19 15:00 BP 140/78 01/27/19 15:00 Pulse Ox 92 L 01/27/19 15:00 Intake & Output 01/26/19 01/27/19 01/27/19 18:59 06:59 18:59 Intake Total 1939 1371 1527 Output Total 570 730 450 Balance 0421 486 7594 Weight 76.9 kg Intake: IV 939 786 827 Fluconazole in NaCl,Iso- 100 100 Osm 200 mg In Saline 1 100ml.bag @ 100 mls/hr IVPB DAILY [facility] Rx#: [id number] Piperacillin-Tazobactam 3 200 100 100 .375 gm In Sodium Chloride 0.9% 100 ml @ 25 mls/hr IVPB Q8HR [facility] Rx# :[id number] Potassium Chloride 20 meq 50 150 In Water For Injection 1 100ml.bag @ 50 mls/hr IVPB Q2H [facility] Rx#: [id number] Pressure 39 36 27 Sodium Chloride 0.9% 1, 600 600 450 000 ml @ 50 mls/hr IV . Q20H [facility] Rx#:[id number] Oral 1000 585 700 Output: Drainage 30 15 40 Right Lower Abdomen 30 15 40 Urine 540 715 410 Emesis 0 Other: Voiding Method Indwelling Catheter Indwelling Catheter Indwelling Catheter # Bowel Movements 1 ABP, PAP, CO, CI - Last Documented Arterial Blood Pressure 146/47 - Exam Abdomen: Soft, mild distention, retention sutures intact, dressing clean - Labs CBC & Chem 7: 01/27/19 04:15 01/27/19 04:15 Labs: Abnormal Lab Results - Last 24 Hours (Table) 01/27/19 01/27/19 Range/Units 04:15 04:15 RBC 3.81 L (4.30-5.90) m/uL Hgb 11.5 L (13.0-17.5) gm/dL Hct 36.8 L (39.0-53.0) % RDW 15.7 H (11.5-15.5) % Plt Count 458 H (150-450) k/uL Neutrophils # 7.8 H (1.3-7.7) k/uL Lymphocytes # 0.4 L (1.0-4.8) k/uL Potassium 3.2 L (3.5-5.1) mmol/L Carbon Dioxide 35 H (22-30) mmol/L Creatinine 0.39 L (0.66-1.25) mg/dL Glucose 124 H (74-99) mg/dL Calcium 7.5 L (8.4-10.2) mg/dL Phosphorus 1.7 L (2.5-4.5) mg/dL Microbiology - Last 24 Hours (Table) 01/22/19 15:45 Blood Culture - Preliminary Blood No Growth after 96 hours Assessment and Plan (1) Bowel perforation Narrative/Plan: Continue clear liquids. Add Toradol for pain control. Start changing midline kyra. Continue pulmonary toilet Current Visit: Yes Status: Acute Code(s): K63.1 - PERFORATION OF INTESTINE (NONTRAUMATIC) SNOMED Code(s): 13792762
[2019-01-27] MEDS ORDERED: LORazepam 2 MG/ML INJ IV PRN ×3 (16:08)
[2019-01-27] MEDS: KETOROLAC 30 MG/ML 1 ML VIAL IVP SCH ×2 (16:10→23:21)
[2019-01-27] MEDS ORDERED: SODIUM CHLORIDE 0.9% 1,000 ML with MVI, ADULT NO.4 WITH VIT K 10 ML, THIAMINE 100 MG, F... IV ONE ×4 (17:00)
--- NOTE | 2019-01-27 17:30 | PN ---
PROGRESS NOTE DATE OF SERVICE: 01/27/2019 REASON FOR FOLLOWUP: 1. Secondary peritonitis. 2. Positive sputum culture with pseudomonas. INTERVAL HISTORY: The patient is currently afebrile. The patient has been breathing comfortably. The patient did have a bowel movement today. No nausea. No vomiting. He has been tolerating his diet and his breathing has been baseline. PHYSICAL EXAMINATION: Blood pressure 127/82 with a pulse of 113, temperature of 98. He is 93% on 9 L high- flow oxygen. General description is an elderly male up in the chair in no distress. RESPIRATORY SYSTEM: Unlabored breathing. Clear to auscultation anteriorly. HEART: S1, S2. Regular rate and rhythm. ABDOMEN: Soft. There is no tenderness. LABS: Hemoglobin is 11.5, white count normal at 8.7, BUN of 17, creatinine 0.39. Blood culture has been negative. Sputum with Pseudomonas aeruginosa. DIAGNOSTIC IMPRESSION AND PLAN: Patient admitted to hospital with abdominal pain. He did have a perforated duodenal ulcer. Patient is status post laparotomy and surgical repair of the same. Currently covered with Zosyn and Diflucan; to continue while watching his clinical course closely. Continue supportive care. MMODL / IJN: [id number] /
[2019-01-28] MEDS: HYDROmorphone 1 MG/ML 1 ML SYRINGE IVP PRN ×5 (01:09→21:51)
[2019-01-28] MEDS: IPRATROPIUM-ALBUTEROL 3 ML NEB INHALATION SCH ×4 (01:34→19:03)
[2019-01-28] MEDS: KETOROLAC 30 MG/ML 1 ML VIAL IVP SCH ×4 (05:29→23:00)
[2019-01-28 05:41] LABS: Basophils % (A) 0 %; Eosinophils % (A) 0 %; HCT 36.2 % (39.0-53.0); HGB 11.5 gm/dL (13.0-17.5); Hypochromasia Slight; Lymphocytes # (A) 0.6 k/uL (1.0-4.8); Lymphocytes % (A) 5 %; MCH 30.2 pg (25.0-35.0); MCHC 31.7 g/dL (31.0-37.0); Mean Platelet Volume 7.1; Monocytes # (A) 0.5 k/uL (0-1.0); Monocytes % (A) 4 %; Neutrophils # (A) 9.3 k/uL (1.3-7.7); Neutrophils % (A) 89 %; Platelet Count 436 k/uL (150-450); RBC 3.81 m/uL (4.30-5.90); RDW 15.8 % (11.5-15.5); WBC 10.5 k/uL (3.8-10.6)
[2019-01-28 06:21] LABS: Anion Gap 0 mmol/L; Blood Urea Nitrogen 13 mg/dL (9-20); Calcium 7.5 mg/dL (8.4-10.2); Carbon Dioxide 36 mmol/L (22-30); Chloride 102 mmol/L (98-107); Glucose 111 mg/dL (74-99); Potassium 3.3 mmol/L (3.5-5.1); Sodium 138 mmol/L (137-145)
--- NOTE | 2019-01-28 06:22 | P.PN ---
Subjective This is a 68 years old male with past medical history of COPD on home oxygen, hyperlipidemia, rheumatoid arthritis, sleep apnea on CPAP. Presents with abdominal pain , has been evaluated by surgery on admission and taken to the operation room found to have perforated duodenal ulcer and incarcerated umbilical hernia. After the surgery patient was taken to the intensive care unit, he got intubated. He was started on Zosyn, and Flagyl. He is also on Protonix for DVT prophylaxis. And he is in normal cement 120 L/h. Patient currently is not on pressors. He has J drain with 200 mL of bloody discharge from abdominal wound. NG tube was about 200 mL drainage. Currently patient is in ICU, vital showing blood pressure is 87/44, saturating 95% on FiO2 of 50%. Temperature 97.5. WBC 12.4 K, potassium 5.2 sodium 135. Creatinine 0.7. Urinalysis is not suspicious of infection. Chest x-ray: Interstitial lung disease, endotracheal tube is in place. CT of the abdomen and pelvis done prior to surgery was reviewed. EKG sinus tachycardia at 113. No significant ST-T changes. Subjective Date of service 01/24/2019 Patient went to the ICU. He is status post extubation. With no chest pain or dyspnea. Vitas looks stable. Still complaining from pain at the surgical abdominal site. No bowel movement yet. WBC 14.5 K. Creatinine 0.6. 01/25/2019 pt is in ICU, he is awake and alert asking for food, still has NG tube with more than 300 ml drained , sluggish bowel movement, passing gas only, NG tube is planed to be taken off by surgery team and start on clear liquid diet tomorrow, sputum is growing pseudomonas and pt is currently on zosyn and diflucan, ID team are following the pt closely , WBC 14.7K, BMP is unremarkable, vials stable 01/26/2019 Patient remains in the ICU. His sputum culture is growing Pseudomonas, patient is currently on Zosyn. Chest x-ray possible right lower pneumonia but patient with no respiratory symptoms. Infectious disease are following the case closely. Patient is currently on clear liquid. Once daily, vitals are stable and patient is afebrile 12/28/2018 Patient seen in the ICU. His doing well and improving with controlled abdominal pain, isn't clear liquid diet. Patient is afebrile and saturating 95% on 5 L of oxygen. He is currently on antibiotic Zosyn and fluconazole for Pseudomonas in his sputum. WBC is coming back to normal at 10.5 K, hemoglobin stable at 11.5. His also on his steroids Cortef 3 times a day. Continue breathing treatments and oxygen for his advanced COPD and interstitial pulmonary disease. Chest x- ray also showed nodular density and the organ tuner recommended 6 month follow- up with CAT scan. Objective - Vital Signs Vital signs: Vital Signs Temp 98 F 01/27/19 16:00 Pulse 96 01/27/19 19:18 Resp 28 H 01/27/19 19:00 BP 155/82 01/27/19 19:00 Pulse Ox 90 L 01/27/19 19:00 Intake & Output 01/27/19 01/27/19 01/28/19 06:59 18:59 06:59 Intake Total 1371 1839 Output Total 730 625 Balance 641 1214 Weight 76.9 kg Intake: IV 786 1039 Fluconazole in NaCl,Iso- 100 Osm 200 mg In Saline 1 100ml.bag @ 100 mls/hr IVPB DAILY [facility] Rx#: [id number] Piperacillin-Tazobactam 3 100 200 .375 gm In Sodium Chloride 0.9% 100 ml @ 25 mls/hr IVPB Q8HR [facility] Rx# :[id number] Potassium Chloride 20 meq 50 150 In Water For Injection 1 100ml.bag @ 50 mls/hr IVPB Q2H [facility] Rx#: [id number] Pressure 36 39 Sodium Chloride 0.9% 1, 600 550 000 ml @ 50 mls/hr IV . Q20H [facility] Rx#:[id number] Intake, IV Titration 100 Amount Sodium Chloride 0.9% 1, 100 000 ml @ 50 mls/hr IV . [id number] ONE with Mvi, Adult No.4 with Vit K 10 ml with Thiamine 100 mg with Folic Acid 1 mg Rx#: [id number] Oral 585 700 Output: Drainage 15 40 Right Lower Abdomen 15 40 Urine 715 585 Emesis 0 Other: Voiding Method Indwelling Catheter Indwelling Catheter # Bowel Movements 1 ABP, PAP, CO, CI - Last Documented Arterial Blood Pressure 146/47 - Exam GENERAL: The patient is alert oriented, not in distress HEENT: Pupils are round and equally reacting to light. EOMI. No scleral icterus. No conjunctival pallor. Normocephalic, atraumatic. No pharyngeal erythema. No thyromegaly. CARDIOVASCULAR: S1 and S2 present. No murmurs, rubs, or gallops. PULMONARY: Chest is clear to auscultation, no wheezing or crackles. ABDOMEN: Soft, is status post exploratory laparotomy, dressing is in place, wound is CLOSED. MUSCULOSKELETAL: No joint swelling or deformity. EXTREMITIES: No cyanosis, clubbing, or pedal edema. NEUROLOGICAL: Gross neurological examination did not reveal any focal deficits. SKIN: No rashes. - Labs CBC & Chem 7: 01/28/19 04:45 01/27/19 04:15 Labs: Abnormal Lab Results - Last 24 Hours (Table) 01/27/19 01/27/19 Range/Units 04:15 04:15 RBC 3.81 L (4.30-5.90) m/uL Hgb 11.5 L (13.0-17.5) gm/dL Hct 36.8 L (39.0-53.0) % RDW 15.7 H (11.5-15.5) % Plt Count 458 H (150-450) k/uL Neutrophils # 7.8 H (1.3-7.7) k/uL Lymphocytes # 0.4 L (1.0-4.8) k/uL Potassium 3.2 L (3.5-5.1) mmol/L Carbon Dioxide 35 H (22-30) mmol/L Creatinine 0.39 L (0.66-1.25) mg/dL Glucose 124 H (74-99) mg/dL Calcium 7.5 L (8.4-10.2) mg/dL Phosphorus 1.7 L (2.5-4.5) mg/dL Microbiology - Last 24 Hours (Table) 01/22/19 15:45 Blood Culture - Preliminary Blood No Growth after 120 hours Assessment and Plan Assessment: Acute abdomen, status post exploratory laparotomy with perforated duodenal ulcer and incarcerated umbilical hernia Acute hypoxic respiratory failure. Acute COPD exacerbation Hyperlipidemia History of rheumatoid arthritis Plan: This is a 68 years old male who presents with perforated duodenal ulcers and incarcerated hernia, status post exploratory laparotomy. Patient after the surgery went to the intensive care unit. Status post intubating. Critical care team and surgery team R following the case closely. Continue with pain management, IV fluids and antibiotic.Labs and medication were reviewed.. Continue same treatment. Continue with symptomatic treatment. Resume home medication. Monitor lytes and vitals. DVT and GI prophylaxis. Further recommendations of the clinical course of the patient DVT prophylaxis: Subcutaneous heparin GI Prophylaxis: PPI Prognosis is guarded
[2019-01-28] MEDS: POTASSIUM BICARBONATE/CIT AC 20 MEQ TABLET.EFF NG-TUBE SCH ×2 (06:36→08:34)
--- NOTE | 2019-01-28 07:57 | XR ---
EXAMINATION TYPE: XR chest 1V portable DATE OF EXAM: 01/28/2019 HISTORY: Shortness of breath. COMPARISON: 01/27/2019 TECHNIQUE: Single view of the chest is submitted. FINDINGS: Demonstrated are scattered senescent parenchymal change. Underlying fibrosis persists. Patchy basilar densities are stable. The heart is stable. Hilar and mediastinal structures are within normal limits. Degenerative changes are seen of the dorsal spine. IMPRESSION: 1. Stable chest.
[2019-01-28] MEDS: HYDROCORTISONE SUCCINATE 100 MG/2 ML VIAL IV SCH ×3 (08:33→23:01)
[2019-01-28] MEDS: HEPARIN SODIUM,PORCINE 5,000 UNIT/ML 1 ML VIAL SQ SCH ×3 (08:33→23:00)
[2019-01-28] MEDS: PIPERACILLIN-TAZOBACTAM 3.375 GM in SODIUM CHLORIDE 0.9% 100 ML IVPB SCH ×3 (08:33→23:01)
[2019-01-28] MEDS: PANTOPRAZOLE 40 MG/10 ML VIAL IVP SCH (08:34)
[2019-01-28] MEDS: FLUCONAZOLE IN NACL,ISO-OSM 200 MG in SALINE 1 100ML.BAG IVPB SCH (08:34)
--- NOTE | 2019-01-28 11:50 | P.PN ---
Subjective Progress Note Date: 01/28/19 Principal diagnosis: Perforated duodenal ulcer Patient doing well today. His pain is improved. Shortness of breath is about same. TAHMINA draining serous. White blood cell count normal. He is hungry for more than simply clear liquids. Objective - Vital Signs Vital signs: Vital Signs Temp 97.3 F L 01/28/19 08:00 Pulse 79 01/28/19 11:00 Resp 16 01/28/19 11:00 BP 163/74 01/28/19 11:00 Pulse Ox 97 01/28/19 11:00 Intake & Output 01/27/19 01/28/19 01/28/19 18:59 06:59 18:59 Intake Total 1839 773 578 Output Total 625 730 250 Balance 1214 43 328 Weight 76.9 kg 79.5 kg Intake: IV 1039 223 278 Fluconazole in NaCl,Iso- 100 100 Osm 200 mg In Saline 1 100ml.bag @ 100 mls/hr IVPB DAILY [facility] Rx#: [id number] Piperacillin-Tazobactam 3 200 100 100 .375 gm In Sodium Chloride 0.9% 100 ml @ 25 mls/hr IVPB Q8HR [facility] Rx# :[id number] Potassium Chloride 20 meq 150 In Water For Injection 1 100ml.bag @ 50 mls/hr IVPB Q2H [facility] Rx#: [id number] Pressure 39 33 18 Sodium Chloride 0.9% 90 60 Sodium Chloride 0.9% 1, 550 000 ml @ 50 mls/hr IV . Q20H [facility] Rx#:[id number] Intake, IV Titration 100 550 300 Amount Sodium Chloride 0.9% 1, 100 550 300 000 ml @ 50 mls/hr IV . [id number] ONE with Mvi, Adult No.4 with Vit K 10 ml with Thiamine 100 mg with Folic Acid 1 mg Rx#: [id number] Oral 700 Output: Drainage 40 30 10 Right Lower Abdomen 40 30 10 Urine 585 700 240 Emesis 0 Other: Voiding Method Indwelling Catheter Indwelling Catheter Indwelling Catheter # Bowel Movements 1 ABP, PAP, CO, CI - Last Documented Arterial Blood Pressure 146/47 - Exam Abdomen: Soft, mild incisional tenderness, dressings clean with minimal drainage at kyra sites - Labs CBC & Chem 7: 01/28/19 04:45 01/28/19 04:45 Labs: Abnormal Lab Results - Last 24 Hours (Table) 01/28/19 01/28/19 Range/Units 04:45 04:45 RBC 3.81 L (4.30-5.90) m/uL Hgb 11.5 L (13.0-17.5) gm/dL Hct 36.2 L (39.0-53.0) % RDW 15.8 H (11.5-15.5) % Neutrophils # 9.3 H (1.3-7.7) k/uL Lymphocytes # 0.6 L (1.0-4.8) k/uL Potassium 3.3 L (3.5-5.1) mmol/L Carbon Dioxide 36 H (22-30) mmol/L Creatinine 0.46 L (0.66-1.25) mg/dL Glucose 111 H (74-99) mg/dL Calcium 7.5 L (8.4-10.2) mg/dL Microbiology - Last 24 Hours (Table) 01/22/19 15:45 Blood Culture - Preliminary Blood No Growth after 120 hours Assessment and Plan (1) Bowel perforation Narrative/Plan: Advance to full liquids. Continue antiacids. Continue antibiotics. Current Visit: Yes Status: Acute Code(s): K63.1 - PERFORATION OF INTESTINE (NONTRAUMATIC) SNOMED Code(s): 81913419
--- NOTE | 2019-01-28 12:16 | P.PN ---
Subjective Progress Note Date: 01/28/19 Principal diagnosis: Acute pneumoperitoneum secondary to perforated duodenal ulcer. 68-year-old male patient came into the emergency department with a one-week history of abdominal pain. He initially went to [facility] emergency department with a CAT scan was done and the patient was told to have diverticulosis without diverticulitis. Over the past week, the patient developed progressive worsening his abdominal discomfort and today came into the emergency department having more pain and the pain was rather diffuse in nature. He had diminished appetite, diminished oral intake and he was having no significant bowel movements. No GI bleeding. Denies having any fever or chills. He was nauseated when he was getting progressively more lethargic and weak and short of breath. CAT scan of the abdomen was done in the emergency department and showed significant inflammatory changes in the epigastric region involving posterior aspect of the proximal transverse colon. There was evidence of pneumoperitoneum around that along with some inflammatory changes as well as some free fluid in the abdomen. The stomach itself appeared to be within normal limits. The patient has long-term history of COPD and pulmonary fibrosis. Based on his pulmonary function test in 2017 he has an FVC of 72% and FEV1 of 46% and he has been steroid dependent for the past few years taking prednisone a daily basis. He has also underlying rheumatoid arthritis and previously he was taking immunosuppression with Humira none for now. His oxygen dependent. Blood work showed a white cell count 16.2 with a hemoglobin of 14.9. Platelet count is at 519. He has a BUN of 27 creatinine of 0.7 and lactic acid was at 1.9 with a troponin being less than 0.01. LFTs are all within normal limits. He is tachycardic with temperature 98.2. He was having sinus tachycardia with a heart rate of 120. He is currently on 5 L of oxygen by nasal cannula with a pulse ox of 90%. The patient will be taken to the operating room. He was seen by the surgical team following that I've advised the patient coming back to the intensive care unit for further evaluation and treatment. He may need to be kept intubated overnight. On 01/26/2019, the patient is postop day #4. The patient is doing well. He is awake and alert. History requiring high flow oxygen at 10 L. He doesn't have much reserve and he desaturates easily. NG tube was removed yesterday and this morning the patient was given some clear liquid diet. Surgical wound site is clean. Output from the TAHMINA drain is minimal in the order of 30 mL over the past 24 hours. Surgical wound site is dry clean and intact. He is passing flatus. No bowel activity as. He remains on IV Zosyn. He is using incentive spirometer. He is on status post hydrocortisone. He is awake and alert. He has pseudomonas aeruginosa in his sputum for which she is covered with IV Zosyn. No other significant events overnight. Patient was reevaluated today on 01/27/2019, remains on high flow nasal cannula 7 L/m, continues to have significantly abnormal chest x-ray with diffuse interstitial lung disease consistent with pulmonary fibrosis, underlying pneumonia is not entirely ruled out. His FiO2 is being titrated down, patient is noted to be short of breath with any activity. His sputum was positive for pseudomonas aeruginosa, remains on Zosyn. All labs were reviewed today, potassium is a bit low at 3.2 being corrected as per protocol. Patient was reevaluated today on 01/28/2019, remains on high flow nasal cannula, 90 L/m, patient is basically about the same, chest x-ray is basically about the same showing bibasilar interstitial lung disease consistent with pulmonary fibrosis. Again underlying pneumonia is not entirely ruled out but felt to be less likely. Patient is hemodynamically stable, in no distress, being treated f or pseudomonas aeruginosa in the sputum, remains on Zosyn. CBC is relatively normal WBC count is 10.5 hemoglobin is 11.5 light was normal except for low potassium being corrected as per protocol. Patient continues to have good urine output. Objective - Vital Signs Vital signs: Vital Signs Temp 97.3 F L 01/28/19 08:00 Pulse 79 01/28/19 11:00 Resp 16 01/28/19 11:00 BP 163/74 01/28/19 11:00 Pulse Ox 97 01/28/19 11:00 Intake & Output 01/27/19 01/28/19 01/28/19 18:59 06:59 18:59 Intake Total 1839 773 578 Output Total 318 730 250 Balance 1214 43 328 Weight 76.9 kg 79.5 kg Intake: IV 1039 223 278 Fluconazole in NaCl,Iso- 100 100 Osm 200 mg In Saline 1 100ml.bag @ 100 mls/hr IVPB DAILY [facility] Rx#: [id number] Piperacillin-Tazobactam 3 200 100 100 .375 gm In Sodium Chloride 0.9% 100 ml @ 25 mls/hr IVPB Q8HR [facility] Rx# :[id number] Potassium Chloride 20 meq 150 In Water For Injection 1 100ml.bag @ 50 mls/hr IVPB Q2H [facility] Rx#: [id number] Pressure 39 33 18 Sodium Chloride 0.9% 90 60 Sodium Chloride 0.9% 1, 550 000 ml @ 50 mls/hr IV . Q20H [facility] Rx#:[id number] Intake, IV Titration 100 550 300 Amount Sodium Chloride 0.9% 1, 100 550 300 000 ml @ 50 mls/hr IV . [id number] ONE with Mvi, Adult No.4 with Vit K 10 ml with Thiamine 100 mg with Folic Acid 1 mg Rx#: [id number] Oral 700 Output: Drainage 40 30 10 Right Lower Abdomen 40 30 10 Urine 585 700 240 Emesis 0 Other: Voiding Method Indwelling Catheter Indwelling Catheter Indwelling Catheter # Bowel Movements 1 ABP, PAP, CO, CI - Last Documented Arterial Blood Pressure 146/47 - Exam Gen. appearance revealed a 68-year-old white male in no distress, on high flow nasal cannula. HEENT: Cushingoid, no neck masses, no JVD, no stridor, moist mucous membranes, PERRLA, EOMI. Lungs sounds minimal fine crackles at the bases, no rhonchi no wheezes, symmetrical chest expansion is noted Cardiac exam revealed normal S1 and S2, no S3 gallop, no murmur. Abdomen is soft. Nontender, no megaly, no rebound, TAHMINA drain is noted Examination of the extremities no clubbing edema or cyanosis Examination of the skin revealed no rashes. Neurologically alert oriented 3, no gross focal neurologic deficits. Acute: Normal mood, affect and mental status examination. - Labs CBC & Chem 7: 01/28/19 04:45 01/28/19 04:45 Labs: Abnormal Lab Results - Last 24 Hours (Table) 01/28/19 01/28/19 Range/Units 04:45 04:45 RBC 3.81 L (4.30-5.90) m/uL Hgb 11.5 L (13.0-17.5) gm/dL Hct 36.2 L (39.0-53.0) % RDW 15.8 H (11.5-15.5) % Neutrophils # 9.3 H (1.3-7.7) k/uL Lymphocytes # 0.6 L (1.0-4.8) k/uL Potassium 3.3 L (3.5-5.1) mmol/L Carbon Dioxide 36 H (22-30) mmol/L Creatinine 0.46 L (0.66-1.25) mg/dL Glucose 111 H (74-99) mg/dL Calcium 7.5 L (8.4-10.2) mg/dL Microbiology - Last 24 Hours (Table) 01/22/19 15:45 Blood Culture - Preliminary Blood No Growth after 120 hours Assessment and Plan Assessment: Impression: 1 acute pneumoperitoneum secondary to perforation of duodenal ulcer status post treatment. Of duodenal ulcer and repair of incarcerated umbilical hernia postoperative day #6 2 advanced COPD and severe pulmonary fibrosis with chronic hypoxic respiratory failure 3 history of rheumatoid arthritis 4 obstructive sleep apnea syndrome not compliant with CPAP. 5 chronic back pain 6 osteoarthritis 7 pseudomonas aeruginosa in the sputum, could be a colonization or could be secondary to pseudomonal pneumonia. Best to continue antibiotics at present since the patient's pulmonary status is rather marginal. Recommendation: Continue high flow oxygen, continue bronchodilators, antibiotics, steroids, advanced diet as tolerated and as recommended by surgery, patient will be transferred out of the ICU to a surgical floor today. We'll continue to follow considering the patient has severe underlying pulmonary lung disease, mostly COPD and interstitial lung disease/pulmonary fibrosis. We'll titrate the FiO2 accordingly. Continue incentive spirometry. Time with Patient: Less than 30
--- NOTE | 2019-01-28 16:14 | P.PN ---
Subjective This is a 68 years old male with past medical history of COPD on home oxygen, hyperlipidemia, rheumatoid arthritis, sleep apnea on CPAP. Presents with abdominal pain , has been evaluated by surgery on admission and taken to the operation room found to have perforated duodenal ulcer and incarcerated umbilical hernia. After the surgery patient was taken to the intensive care unit, he got intubated. He was started on Zosyn, and Flagyl. He is also on Protonix for DVT prophylaxis. And he is in normal cement 120 L/h. Patient currently is not on pressors. He has J drain with 200 mL of bloody discharge from abdominal wound. NG tube was about 200 mL drainage. Currently patient is in ICU, vital showing blood pressure is 87/44, saturating 95% on FiO2 of 50%. Temperature 97.5. WBC 12.4 K, potassium 5.2 sodium 135. Creatinine 0.7. Urinalysis is not suspicious of infection. Chest x-ray: Interstitial lung disease, endotracheal tube is in place. CT of the abdomen and pelvis done prior to surgery was reviewed. EKG sinus tachycardia at 113. No significant ST-T changes. Subjective Date of service 01/24/2019 Patient went to the ICU. He is status post extubation. With no chest pain or dyspnea. Vitas looks stable. Still complaining from pain at the surgical abdominal site. No bowel movement yet. WBC 14.5 K. Creatinine 0.6. 01/25/2019 pt is in ICU, he is awake and alert asking for food, still has NG tube with more than 300 ml drained , sluggish bowel movement, passing gas only, NG tube is planed to be taken off by surgery team and start on clear liquid diet tomorrow, sputum is growing pseudomonas and pt is currently on zosyn and diflucan, ID team are following the pt closely , WBC 14.7K, BMP is unremarkable, vials stable 01/26/2019 Patient remains in the ICU. His sputum culture is growing Pseudomonas, patient is currently on Zosyn. Chest x-ray possible right lower pneumonia but patient with no respiratory symptoms. Infectious disease are following the case closely. Patient is currently on clear liquid. Once daily, vitals are stable and patient is afebrile 01/27/2019 Patient seen in the ICU. His doing well and improving with controlled abdominal pain, isn't clear liquid diet. Patient is afebrile and saturating 95% on 5 L of oxygen. He is currently on antibiotic Zosyn and fluconazole for Pseudomonas in his sputum. WBC is coming back to normal at 10.5 K, hemoglobin stable at 11.5. His also on his steroids Cortef 3 times a day. Continue breathing treatments and oxygen for his advanced COPD and interstitial pulmonary disease. Chest x- ray also showed nodular density and the quality improvement manager recommended 6 month follow- up with CAT scan. 01/28/2019 Patient keep improving, he is awake, slightly improved but better than when he came seen. He is starting his diet, his diet today has been advised to follow liquid diet. Pain at surgical site is controlled and IV fluid was stopped. Patient is hemodynamically stable. He saturating 97% on 9 L oxygen via high flow cannula. Continue to be on Zosyn for his Pseudomonas. Since he is improving his going to be transferred to the general medical floor today Objective - Vital Signs Vital signs: Vital Signs Temp 98.0 F 01/28/19 12:00 Pulse 78 01/28/19 15:00 Resp 21 01/28/19 15:00 BP 212/179 01/28/19 15:00 Pulse Ox 97 01/28/19 15:00 Intake & Output 01/27/19 01/28/19 01/28/19 18:59 06:59 18:59 Intake Total 1839 773 691 Output Total 625 730 550 Balance 1214 43 141 Weight 76.9 kg 79.5 kg Intake: IV 1039 223 391 Fluconazole in NaCl,Iso- 100 100 Osm 200 mg In Saline 1 100ml.bag @ 100 mls/hr IVPB DAILY [facility] Rx#: [id number] Piperacillin-Tazobactam 3 200 100 200 .375 gm In Sodium Chloride 0.9% 100 ml @ 25 mls/hr IVPB Q8HR [facility] Rx# :[id number] Potassium Chloride 20 meq 150 In Water For Injection 1 100ml.bag @ 50 mls/hr IVPB Q2H [facility] Rx#: [id number] Pressure 39 33 21 Sodium Chloride 0.9% 90 70 Sodium Chloride 0.9% 1, 550 000 ml @ 50 mls/hr IV . Q20H [facility] Rx#:[id number] Intake, IV Titration 100 550 300 Amount Sodium Chloride 0.9% 1, 100 550 300 000 ml @ 50 mls/hr IV . [id number] ONE with Mvi, Adult No.4 with Vit K 10 ml with Thiamine 100 mg with Folic Acid 1 mg Rx#: [id number] Oral 700 Output: Drainage 40 30 10 Right Lower Abdomen 40 30 10 Urine 585 700 540 Emesis 0 Other: Voiding Method Indwelling Catheter Indwelling Catheter Indwelling Catheter # Bowel Movements 1 ABP, PAP, CO, CI - Last Documented Arterial Blood Pressure 146/47 - Exam GENERAL: The patient is alert oriented, not in distress HEENT: Pupils are round and equally reacting to light. EOMI. No scleral icterus. No conjunctival pallor. Normocephalic, atraumatic. No pharyngeal erythema. No thyromegaly. CARDIOVASCULAR: S1 and S2 present. No murmurs, rubs, or gallops. PULMONARY: Chest is clear to auscultation, no wheezing or crackles. ABDOMEN: Soft, is status post exploratory laparotomy, dressing is in place, wound is CLOSED. MUSCULOSKELETAL: No joint swelling or deformity. EXTREMITIES: No cyanosis, clubbing, or pedal edema. NEUROLOGICAL: Gross neurological examination did not reveal any focal deficits. SKIN: No rashes. - Labs CBC & Chem 7: 01/28/19 04:45 01/28/19 04:45 Labs: Abnormal Lab Results - Last 24 Hours (Table) 01/28/19 01/28/19 Range/Units 04:45 04:45 RBC 3.81 L (4.30-5.90) m/uL Hgb 11.5 L (13.0-17.5) gm/dL Hct 36.2 L (39.0-53.0) % RDW 15.8 H (11.5-15.5) % Neutrophils # 9.3 H (1.3-7.7) k/uL Lymphocytes # 0.6 L (1.0-4.8) k/uL Potassium 3.3 L (3.5-5.1) mmol/L Carbon Dioxide 36 H (22-30) mmol/L Creatinine 0.46 L (0.66-1.25) mg/dL Glucose 111 H (74-99) mg/dL Calcium 7.5 L (8.4-10.2) mg/dL Microbiology - Last 24 Hours (Table) 01/22/19 15:45 Blood Culture - Preliminary Blood No Growth after 120 hours Assessment and Plan Assessment: Acute abdomen, status post exploratory laparotomy with perforated duodenal ulcer and incarcerated umbilical hernia Acute hypoxic respiratory failure. Acute COPD exacerbation Hyperlipidemia History of rheumatoid arthritis Plan: This is a 68 years old male who presents with perforated duodenal ulcers and incarcerated hernia, status post exploratory laparotomy. Patient after the surgery went to the intensive care unit. Status post intubating. Critical care team and surgery team R following the case closely. Continue with pain manageme nt, IV fluids and antibiotic.Labs and medication were reviewed.. Continue same treatment. Continue with symptomatic treatment. Resume home medication. Monitor lytes and vitals. DVT and GI prophylaxis. Further recommendations of the clinical course of the patient DVT prophylaxis: Subcutaneous heparin GI Prophylaxis: PPI Prognosis is guarded
--- NOTE | 2019-01-28 19:41 | PN ---
PROGRESS NOTE DATE OF SERVICE: 01/28/2019 REASON FOR FOLLOWUP: Perforated peptic ulcer disease/secondary peritonitis. INTERVAL HISTORY: The patient is currently afebrile. The patient is breathing comfortably. Has been tolerating his diet. No nausea, no vomiting. Did have a bowel movement. No abdominal pain. PHYSICAL EXAMINATION: Blood pressure is 142/72 with a pulse of 82, temperature 98.3. He is 97% on 8 L high- flow oxygen. General description is an elderly male up in the chair in no distress. RESPIRATORY SYSTEM: Unlabored breathing. Clear to auscultation anteriorly. HEART: S1, S2. Regular rate and rhythm. ABDOMEN: Soft. No tenderness. TAHMINA drain with minimal secretions. LABS: Hemoglobin 11.5, white count 10.5, BUN of 17, creatinine 0.46. DIAGNOSTIC IMPRESSION AND PLAN: Patient with secondary peritonitis from perforated duodenal ulcer, status post laparotomy with repair of the same and repair of hernia. The patient also had sputum positive for Pseudomonas aeruginosa, currently covered with Zosyn and Diflucan. White count is normal. No fever. Continue with current antibiotic therapy while monitoring his clinical course closely. MMODL / IJN: [id number] /
[2019-01-29] MEDS: HYDROmorphone 1 MG/ML 1 ML SYRINGE IVP PRN ×8 (01:08→21:28)
[2019-01-29] MEDS: IPRATROPIUM-ALBUTEROL 3 ML NEB INHALATION SCH ×4 (01:16→19:52)
[2019-01-29] MEDS: KETOROLAC 30 MG/ML 1 ML VIAL IVP SCH ×2 (05:24→12:23)
[2019-01-29 05:32] LABS: Anion Gap 3 mmol/L; Blood Urea Nitrogen 9 mg/dL (9-20); Calcium 7.4 mg/dL (8.4-10.2); Carbon Dioxide 35 mmol/L (22-30); Chloride 98 mmol/L (98-107); Glucose 164 mg/dL (74-99); Potassium 3.2 mmol/L (3.5-5.1); Sodium 136 mmol/L (137-145)
[2019-01-29] MEDS: POTASSIUM BICARBONATE/CIT AC 20 MEQ TABLET.EFF NG-TUBE SCH ×2 (05:45→06:33)
[2019-01-29] MEDS: INSULIN ASPART (NovoLOG) 100 UNIT/ML VIAL SQ SCH ×4 (06:53→21:28)
[2019-01-29 06:54] LABS: Glucose,Whole Blood 113 mg/dL (75-99)
[2019-01-29] MEDS: HEPARIN SODIUM,PORCINE 5,000 UNIT/ML 1 ML VIAL SQ SCH ×2 (08:58→16:19)
[2019-01-29] MEDS: PIPERACILLIN-TAZOBACTAM 3.375 GM in SODIUM CHLORIDE 0.9% 100 ML IVPB SCH ×2 (08:58→16:16)
[2019-01-29] MEDS: HYDROCORTISONE SUCCINATE 100 MG/2 ML VIAL IV SCH ×2 (08:58→16:20)
[2019-01-29] MEDS: PANTOPRAZOLE 40 MG/10 ML VIAL IVP SCH (08:59)
[2019-01-29] MEDS: FLUCONAZOLE IN NACL,ISO-OSM 200 MG in SALINE 1 100ML.BAG IVPB SCH (08:59)
[2019-01-29] MEDS ORDERED: FUROSEMIDE 20 MG TAB PO STA (10:25)
--- NOTE | 2019-01-29 10:53 | P.PN ---
Subjective Progress Note Date: 01/29/19 Principal diagnosis: Acute pneumoperitoneum secondary to perforated duodenal ulcer. 68-year-old male patient came into the emergency department with a one-week history of abdominal pain. He initially went to [facility] emergency department with a CAT scan was done and the patient was told to have diverticulosis without diverticulitis. Over the past week, the patient developed progressive worsening his abdominal discomfort and today came into the emergency department having more pain and the pain was rather diffuse in nature. He had diminished appetite, diminished oral intake and he was having no significant bowel movements. No GI bleeding. Denies having any fever or chills. He was nauseated when he was getting progressively more lethargic and weak and short of breath. CAT scan of the abdomen was done in the emergency department and showed significant inflammatory changes in the epigastric region involving posterior aspect of the proximal transverse colon. There was evidence of pneumoperitoneum around that along with some inflammatory changes as well as some free fluid in the abdomen. The stomach itself appeared to be within normal limits. The patient has long-term history of COPD and pulmonary fibrosis. Based on his pulmonary function test in 2017 he has an FVC of 72% and FEV1 of 46% and he has been steroid dependent for the past few years taking prednisone a daily basis. He has also underlying rheumatoid arthritis and previously he was taking immunosuppression with Humira none for now. His oxygen dependent. Blood work showed a white cell count 16.2 with a hemoglobin of 14.9. Platelet count is at 519. He has a BUN of 27 creatinine of 0.7 and lactic acid was at 1.9 with a troponin being less than 0.01. LFTs are all within normal limits. He is tachycardic with temperature 98.2. He was having sinus tachycardia with a heart rate of 120. He is currently on 5 L of oxygen by nasal cannula with a pulse ox of 90%. The patient will be taken to the operating room. He was seen by the surgical team following that I've advised the patient coming back to the intensive care unit for further evaluation and treatment. He may need to be kept intubated overnight. On 01/26/2019, the patient is postop day #4. The patient is doing well. He is awake and alert. History requiring high flow oxygen at 10 L. He doesn't have much reserve and he desaturates easily. NG tube was removed yesterday and this morning the patient was given some clear liquid diet. Surgical wound site is clean. Output from the TAHMINA drain is minimal in the order of 30 mL over the past 24 hours. Surgical wound site is dry clean and intact. He is passing flatus. No bowel activity as. He remains on IV Zosyn. He is using incentive spirometer. He is on status post hydrocortisone. He is awake and alert. He has pseudomonas aeruginosa in his sputum for which she is covered with IV Zosyn. No other significant events overnight. Patient was reevaluated today on 01/27/2019, remains on high flow nasal cannula 7 L/m, continues to have significantly abnormal chest x-ray with diffuse interstitial lung disease consistent with pulmonary fibrosis, underlying pneumonia is not entirely ruled out. His FiO2 is being titrated down, patient is noted to be short of breath with any activity. His sputum was positive for pseudomonas aeruginosa, remains on Zosyn. All labs were reviewed today, potassium is a bit low at 3.2 being corrected as per protocol. Patient was reevaluated today on 01/28/2019, remains on high flow nasal cannula, 90 L/m, patient is basically about the same, chest x-ray is basically about the same showing bibasilar interstitial lung disease consistent with pulmonary fibrosis. Again underlying pneumonia is not entirely ruled out but felt to be less likely. Patient is hemodynamically stable, in no distress, being treated f or pseudomonas aeruginosa in the sputum, remains on Zosyn. CBC is relatively normal WBC count is 10.5 hemoglobin is 11.5 light was normal except for low potassium being corrected as per protocol. Patient continues to have good urine output. Reevaluated today on 01/29/2019, remains in the ICU, he is presently overflow from selective. Patient remains on 8 L high flow nasal cannula, pulmonary stat us remains marginal. Overall it is better than expected considering his underlying COPD and underlying interstitial lung disease. Patient seems to be recovering slowly. Last chest x-ray showed basically chronic changes of COPD and interstitial lung disease. Underlying pneumonia is definitely not entirely ruled out. Patient had positive Pseudomonas in the sputum and he is being treated as such. Electrolytes are normal except for low potassium being corrected as per protocol. The patient himself denies shortness of breath, denies any pain, he is complaining of significant swelling in his upper and lower extremities, hence I initiated diuretics today. Objective - Vital Signs Vital signs: Vital Signs Temp 97.7 F 01/29/19 08:00 Pulse 86 01/29/19 08:00 Resp 18 01/29/19 08:00 BP 113/79 01/29/19 08:00 Pulse Ox 95 01/29/19 08:00 Intake & Output 01/28/19 01/29/19 01/29/19 18:59 06:59 18:59 Intake Total 691 235 680 Output Total 550 2245 350 Balance 141 -2009 330 Weight 76 kg Intake: IV 391 235 200 Fluconazole in NaCl,Iso- 100 100 Osm 200 mg In Saline 1 100ml.bag @ 100 mls/hr IVPB DAILY [facility] Rx#: [id number] Piperacillin-Tazobactam 3 200 100 100 .375 gm In Sodium Chloride 0.9% 100 ml @ 25 mls/hr IVPB Q8HR [facility] Rx# :[id number] Pressure 21 Sodium Chloride 0.9% 70 135 Intake, IV Titration 300 0 Amount Sodium Chloride 0.9% 1, 300 0 000 ml @ 50 mls/hr IV . [id number] ONE with Mvi, Adult No.4 with Vit K 10 ml with Thiamine 100 mg with Folic Acid 1 mg Rx#: [id number] Oral 480 Output: Drainage 10 45 Right Lower Abdomen 10 45 Urine 540 2200 350 Other: Voiding Method Indwelling Catheter Indwelling Catheter Indwelling Catheter ABP, PAP, CO, CI - Last Documented Arterial Blood Pressure 146/47 - Exam Gen. appearance revealed a 68-year-old white male in no distress, on 8 L high flow nasal cannula. HEENT: Cushingoid, no neck masses, no JVD, no stridor, moist mucous membranes, PERRLA, EOMI. Lungs sounds minimal fine crackles at the bases, no rhonchi no wheezes, sym metrical chest expansion is noted Cardiac exam revealed normal S1 and S2, no S3 gallop, no murmur. Abdomen is soft. Nontender, no megaly, no rebound, TAHMINA drain is noted Examination of the extremities no clubbing, 2+ bipedal edema, no cyanosis. There is also swelling of upper extremities and hands noted. Examination of the skin revealed no rashes. Neurologically alert oriented 3, no gross focal neurologic deficits. Psychiatric:: Normal mood, affect and mental status examination. Lymphatics: No lymphadenopathy. - Labs CBC & Chem 7: 01/28/19 04:45 01/29/19 04:27 Labs: Abnormal Lab Results - Last 24 Hours (Table) 01/29/19 01/29/19 Range/Units 04:27 06:50 Sodium 136 L (137-145) mmol/L Potassium 3.2 L (3.5-5.1) mmol/L Carbon Dioxide 35 H (22-30) mmol/L Creatinine 0.46 L (0.66-1.25) mg/dL Glucose 164 H (74-99) mg/dL POC Glucose (mg/dL) 113 H (75-99) mg/dL Calcium 7.4 L (8.4-10.2) mg/dL Microbiology - Last 24 Hours (Table) 01/22/19 15:45 Blood Culture - Final Blood No Growth after 144 hours Assessment and Plan Assessment: Impression: 1 acute pneumoperitoneum secondary to perforation of duodenal ulcer status post treatment. Of duodenal ulcer and repair of incarcerated umbilical hernia postoperative day #7 2 advanced COPD and severe pulmonary fibrosis with chronic hypoxic respiratory failure 3 history of rheumatoid arthritis 4 obstructive sleep apnea syndrome not compliant with CPAP. 5 chronic back pain 6 osteoarthritis 7 pseudomonas aeruginosa in the sputum, could be a colonization or could be secondary to pseudomonal pneumonia. Best to continue antibiotics at present since the patient's pulmonary status is rather marginal. 8 acute on chronic hypoxic respiratory failure multifactorial mostly related to his COPD, pulmonary fibrosis, and suspect some component of p neumonia/pseudomonal pneumonia. Recommendation: Continue high flow oxygen, continue bronchodilators, antibiotics, steroids, added diuretics today. patient will be transferred out of the ICU to a surgical floor today. We'll continue to follow considering the patient has severe underlying pulmonary lung disease, mostly COPD and interstitial lung disease/pulmonary fibrosis. Advanced diet as recommended by surgery, transfer patient out of the ICU once a bed becomes available, we will follow. Monitor electrolytes daily since diuretics were added today. Time with Patient: Less than 30
--- NOTE | 2019-01-29 11:41 | P.PN ---
Subjective Progress Note Date: 01/29/19 CHIEF COMPLAINT: Perforated duodenal ulcer HISTORY OF PRESENT ILLNESS: Patient seen and examined at the bedside in the intensive care unit. Patient sitting up on the side of the bed. Patient states his pain is tolerable. Denies nausea or vomiting. Patient reports only eating a couple bites of his oatmeal this morning. PHYSICAL EXAM: VITAL SIGNS: Reviewed. GENERAL: Well-developed in no acute distress. HEENT: No sclera icterus. Extraocular movements grossly intact. Moist buccal mucosa. Head is atraumatic, normocephalic. ABDOMEN: Soft. Nondistended. Dressing clean dry intact. TAHMINA with serous drainage. NEUROLOGIC: Alert and oriented. Cranial nerves II through XII grossly intact. ASSESSMENT: 1. Perforated duodenal ulcer, status post exploratory laparotomy with repair of perforated duodenal ulcer and repair of incarcerated umbilical hernia PLAN: 1. Patient only eating a few bites of full liquid diet. Continue full liquid diet until PO intake increases to ensure patient tolerates 2. Ok to DC kraft from surgical standpoint 3. Continue dressing changes 4. Incentive spirometry 5. Activity as tolerated Nurse practitioner note has been reviewed by physician. Signing provider agrees with the documented findings, assessment, and plan of care. Objective - Vital Signs Vital signs: Vital Signs Temp 97.7 F 01/29/19 08:00 Pulse 86 01/29/19 08:00 Resp 18 01/29/19 08:00 BP 113/79 01/29/19 08:00 Pulse Ox 95 01/29/19 08:00 Intake & Output 01/28/19 01/29/19 01/29/19 18:59 06:59 18:59 Intake Total 691 235 680 Output Total 550 2245 350 Balance 141 -2009 330 Weight 76 kg 76 kg Intake: IV 391 235 200 Fluconazole in NaCl,Iso- 100 100 Osm 200 mg In Saline 1 100ml.bag @ 100 mls/hr IVPB DAILY [facility] Rx#: [id number] Piperacillin-Tazobactam 3 200 100 100 .375 gm In Sodium Chloride 0.9% 100 ml @ 25 mls/hr IVPB Q8HR [facility] Rx# :[id number] Pressure 21 Sodium Chloride 0.9% 70 135 Intake, IV Titration 300 0 Amount Sodium Chloride 0.9% 1, 300 0 000 ml @ 50 mls/hr IV . [id number] ONE with Mvi, Adult No.4 with Vit K 10 ml with Thiamine 100 mg with Folic Acid 1 mg Rx#: [id number] Oral 480 Output: Drainage 10 45 Right Lower Abdomen 10 45 Urine 540 2200 350 Other: Voiding Method Indwelling Catheter Indwelling Catheter Indwelling Catheter ABP, PAP, CO, CI - Last Documented Arterial Blood Pressure 146/47 - Labs CBC & Chem 7: 01/28/19 04:45 01/29/19 04:27 Labs: Abnormal Lab Results - Last 24 Hours (Table) 01/29/19 01/29/19 Range/Units 04:27 06:50 Sodium 136 L (137-145) mmol/L Potassium 3.2 L (3.5-5.1) mmol/L Carbon Dioxide 35 H (22-30) mmol/L Creatinine 0.46 L (0.66-1.25) mg/dL Glucose 164 H (74-99) mg/dL POC Glucose (mg/dL) 113 H (75-99) mg/dL Calcium 7.4 L (8.4-10.2) mg/dL Microbiology - Last 24 Hours (Table) 01/22/19 15:45 Blood Culture - Final Blood No Growth after 144 hours
[2019-01-29 12:12] LABS: Glucose,Whole Blood 102 mg/dL (75-99)
[2019-01-29] MEDS: FUROSEMIDE 20 MG TAB PO SCH (16:17)
[2019-01-29 18:09] LABS: Glucose,Whole Blood 122 mg/dL (75-99)
--- NOTE | 2019-01-29 20:02 | PN ---
PROGRESS NOTE DATE OF SERVICE: 01/29/2019. REASON FOR FOLLOWUP: Secondary peritonitis from perforated peptic ulcer disease. INTERVAL HISTORY: The patient is currently afebrile. Patient is breathing comfortably. The patient did have some occasional cough. No worsening. No chest pain. No abdominal pain or any diarrhea. PHYSICAL EXAMINATION: Blood pressure 155/68 with a pulse of 100. Temperature of 98.7. General description is an elderly male up in the chair in no distress. Respiratory system: Unlabored breathing, clear to auscultation. No wheeze or crackles. Heart: S1, S2. Regular rate and rhythm. Abdomen: Soft, no tenderness. LABS: No new labs have been obtained today. DIAGNOSTIC IMPRESSION AND PLAN: Patient admitted to the hospital with perforated peptic ulcer, status post laparotomy, repair of same. Sputum culture positive for Pseudomonas. Patient is currently covered with Zosyn and fluconazole. Continue transition to oral antibiotics stable for discharge. Continue supportive care. MMODL / IJN: [id number] /
[2019-01-29 21:16] LABS: Glucose,Whole Blood 180 mg/dL (75-99)
[2019-01-30] MEDS: HYDROCORTISONE SUCCINATE 100 MG/2 ML VIAL IV SCH ×4 (00:35→23:39)
[2019-01-30] MEDS: HYDROmorphone 1 MG/ML 1 ML SYRINGE IVP PRN ×5 (00:35→17:39)
[2019-01-30] MEDS: HEPARIN SODIUM,PORCINE 5,000 UNIT/ML 1 ML VIAL SQ SCH ×4 (00:36→23:39)
[2019-01-30] MEDS: PIPERACILLIN-TAZOBACTAM 3.375 GM in SODIUM CHLORIDE 0.9% 100 ML IVPB SCH ×4 (00:36→23:39)
[2019-01-30] MEDS: IPRATROPIUM-ALBUTEROL 3 ML NEB INHALATION SCH ×4 (01:03→21:40)
--- NOTE | 2019-01-30 05:54 | P.PN ---
Subjective This is a 68 years old male with past medical history of COPD on home oxygen, hyperlipidemia, rheumatoid arthritis, sleep apnea on CPAP. Presents with abdominal pain , has been evaluated by surgery on admission and taken to the operation room found to have perforated duodenal ulcer and incarcerated umbilical hernia. After the surgery patient was taken to the intensive care unit, he got intubated. He was started on Zosyn, and Flagyl. He is also on Protonix for DVT prophylaxis. And he is in normal cement 120 L/h. Patient currently is not on pressors. He has J drain with 200 mL of bloody discharge from abdominal wound. NG tube was about 200 mL drainage. Currently patient is in ICU, vital showing blood pressure is 87/44, saturating 95% on FiO2 of 50%. Temperature 97.5. WBC 12.4 K, potassium 5.2 sodium 135. Creatinine 0.7. Urinalysis is not suspicious of infection. Chest x-ray: Interstitial lung disease, endotracheal tube is in place. CT of the abdomen and pelvis done prior to surgery was reviewed. EKG sinus tachycardia at 113. No significant ST-T changes. Subjective Date of service 01/24/2019 Patient went to the ICU. He is status post extubation. With no chest pain or dyspnea. Vitas looks stable. Still complaining from pain at the surgical abdominal site. No bowel movement yet. WBC 14.5 K. Creatinine 0.6. 01/25/2019 pt is in ICU, he is awake and alert asking for food, still has NG tube with more than 300 ml drained , sluggish bowel movement, passing gas only, NG tube is planed to be taken off by surgery team and start on clear liquid diet tomorrow, sputum is growing pseudomonas and pt is currently on zosyn and diflucan, ID team are following the pt closely , WBC 14.7K, BMP is unremarkable, vials stable 01/26/2019 Patient remains in the ICU. His sputum culture is growing Pseudomonas, patient is currently on Zosyn. Chest x-ray possible right lower pneumonia but patient with no respiratory symptoms. Infectious disease are following the case closely. Patient is currently on clear liquid. Once daily, vitals are stable and patient is afebrile 01/27/2019 Patient seen in the ICU. His doing well and improving with controlled abdominal pain, isn't clear liquid diet. Patient is afebrile and saturating 95% on 5 L of oxygen. He is currently on antibiotic Zosyn and fluconazole for Pseudomonas in his sputum. WBC is coming back to normal at 10.5 K, hemoglobin stable at 11.5. His also on his steroids Cortef 3 times a day. Continue breathing treatments and oxygen for his advanced COPD and interstitial pulmonary disease. Chest x- ray also showed nodular density and the medical billing specialist recommended 6 month follow- up with CAT scan. 01/28/2019 Patient keep improving, he is awake, slightly improved but better than when he came seen. He is starting his diet, his diet today has been advised to follow liquid diet. Pain at surgical site is controlled and IV fluid was stopped. Patient is hemodynamically stable. He saturating 97% on 9 L oxygen via high flow cannula. Continue to be on Zosyn for his Pseudomonas. Since he is improving his going to be transferred to the general medical floor today 01/12/2019 Patient in ICU, going to the general medical floor. He is awake, tolerating diet well with no problems of 18, his abdominal pain is controlled and expected some residual tenderness at the surgical site. Patient is hemodynamically stable. That is been advanced. Surgery team are following the case closely. Hemodynamically stable. WBC is back to normal level. Potassium mildly low sugar is controlled. Patient is currently on Lasix 20 mg twice a day. Objective - Vital Signs Vital signs: Vital Signs Temp 98.7 F 01/29/19 14:51 Pulse 100 01/29/19 15:12 Resp 16 01/29/19 14:51 BP 155/68 01/29/19 14:51 Pulse Ox 95 01/29/19 14:51 Intake & Output 01/29/19 01/29/19 01/30/19 06:59 18:59 06:59 Intake Total 235 1160 Output Total 2245 475 Balance -2009 685 Weight 76 kg 76 kg Intake: IV 235 200 Fluconazole in NaCl,Iso- 100 Osm 200 mg In Saline 1 100ml.bag @ 100 mls/hr IVPB DAILY [facility] Rx#: [id number] Piperacillin-Tazobactam 3 100 100 .375 gm In Sodium Chloride 0.9% 100 ml @ 25 mls/hr IVPB Q8HR [facility] Rx# :[id number] Sodium Chloride 0.9% 135 Intake, IV Titration 0 Amount Sodium Chloride 0.9% 1, 0 000 ml @ 50 mls/hr IV . [id number] ONE with Mvi, Adult No.4 with Vit K 10 ml with Thiamine 100 mg with Folic Acid 1 mg Rx#: [id number] Oral 960 Output: Drainage 45 Right Lower Abdomen 45 Urine 2200 475 Other: Voiding Method Indwelling Catheter Indwelling Catheter ABP, PAP, CO, CI - Last Documented Arterial Blood Pressure 146/47 - Exam GENERAL: The patient is alert oriented, not in distress HEENT: Pupils are round and equally reacting to light. EOMI. No scleral icterus. No conjunctival pallor. Normocephalic, atraumatic. No pharyngeal erythema. No thyromegaly. CARDIOVASCULAR: S1 and S2 present. No murmurs, rubs, or gallops. PULMONARY: Chest is clear to auscultation, no wheezing or crackles. ABDOMEN: Soft, is status post exploratory laparotomy, dressing is in place, wound is CLOSED. MUSCULOSKELETAL: No joint swelling or deformity. EXTREMITIES: No cyanosis, clubbing, or pedal edema. NEUROLOGICAL: Gross neurological examination did not reveal any focal deficits. SKIN: No rashes. - Labs CBC & Chem 7: 01/28/19 04:45 01/29/19 12:43 Labs: Abnormal Lab Results - Last 24 Hours (Table) 01/29/19 01/29/19 01/29/19 Range/Units 04:27 06:50 12:08 Sodium 136 L (137-145) mmol/L Potassium 3.2 L (3.5-5.1) mmol/L Carbon Dioxide 35 H (22-30) mmol/L Creatinine 0.46 L (0.66-1.25) mg/dL Glucose 164 H (74-99) mg/dL POC Glucose (mg/dL) 113 H 102 H (75-99) mg/dL Calcium 7.4 L (8.4-10.2) mg/dL 01/29/19 01/29/19 Range/Units 12:43 17:54 Sodium (137-145) mmol/L Potassium 3.2 L (3.5-5.1) mmol/L Carbon Dioxide (22-30) mmol/L Creatinine (0.66-1.25) mg/dL Glucose (74-99) mg/dL POC Glucose (mg/dL) 122 H (75-99) mg/dL Calcium (8.4-10.2) mg/dL Microbiology - Last 24 Hours (Table) 01/22/19 15:45 Blood Culture - Final Blood No Growth after 144 hours Assessment and Plan Assessment: Acute abdomen, status post exploratory laparotomy with perforated duodenal ulcer and incarcerated umbilical hernia Acute hypoxic respiratory failure. Acute COPD exacerbation Hyperlipidemia History of rheumatoid arthritis Plan: This is a 68 years old male who presents with perforated duodenal ulcers and incarcerated hernia, status post exploratory laparotomy. Patient after the surgery went to the intensive care unit. Status post intubating. Critical care team and surgery team R following the case closely. Continue with pain management, IV fluids and antibiotic.Labs and medication were reviewed.. Continue same treatment. Continue with symptomatic treatment. Resume home medication. Monitor lytes and vitals. DVT and GI prophylaxis. Further re commendations of the clinical course of the patient DVT prophylaxis: Subcutaneous heparin GI Prophylaxis: PPI Prognosis is guarded
[2019-01-30 07:08] LABS: Glucose,Whole Blood 134 mg/dL (75-99)
[2019-01-30] MEDS: INSULIN ASPART (NovoLOG) 100 UNIT/ML VIAL SQ SCH ×4 (07:31→20:28)
[2019-01-30 08:28] LABS: Blood Urea Nitrogen 13 mg/dL (9-20); Calcium 7.9 mg/dL (8.4-10.2); Chloride 95 mmol/L (98-107); Glucose 109 mg/dL (74-99); Magnesium 1.9 mg/dL (1.6-2.3); Sodium 136 mmol/L (137-145)
[2019-01-30] MEDS: PANTOPRAZOLE 40 MG/10 ML VIAL IVP SCH (08:33)
[2019-01-30] MEDS: FUROSEMIDE 20 MG TAB PO SCH ×2 (08:34→17:39)
[2019-01-30 08:36] LABS: Anion Gap 2 mmol/L; Anisocytosis Slight; Basophils % (A) 0 %; Eosinophils % (A) 0 %; HCT 36.8 % (39.0-53.0); HGB 11.6 gm/dL (13.0-17.5); Lymphocytes # (A) 0.6 k/uL (1.0-4.8); Lymphocytes % (A) 3 %; MCH 29.6 pg (25.0-35.0); MCHC 31.6 g/dL (31.0-37.0); MCV 93.5 fL (80.0-100.0); Mean Platelet Volume 7.2; Monocytes # (A) 0.7 k/uL (0-1.0); Monocytes % (A) 3 %; Neutrophils # (A) 19.5 k/uL (1.3-7.7); Neutrophils % (A) 93 %; Platelet Count 484 k/uL (150-450); RBC 3.94 m/uL (4.30-5.90); RDW 16.1 % (11.5-15.5); WBC 20.9 k/uL (3.8-10.6)
[2019-01-30 08:53] LABS: Carbon Dioxide 39 mmol/L (22-30); Potassium 2.7 mmol/L (3.5-5.1)
[2019-01-30] MEDS ORDERED: POTASSIUM CHLORIDE ER 20 MEQ TAB.ER PO STA (08:54)
[2019-01-30] MEDS: HYDROcodone/APAP 5-325MG 1 EACH TAB PO PRN ×4 (10:33→23:40)
[2019-01-30] MEDS: MAGNESIUM SULFATE-D5W PMX 1 GM in DEXTROSE/WATER 1 100ML.BAG IVPB SCH ×2 (10:53→11:57)
[2019-01-30 11:12] LABS: Glucose,Whole Blood 154 mg/dL (75-99)
--- NOTE | 2019-01-30 12:03 | P.PN ---
Subjective Progress Note Date: 01/30/19 Principal diagnosis: Acute pneumoperitoneum secondary to perforated duodenal ulcer 68-year-old male patient came into the emergency department with a one-week history of abdominal pain. He initially went to [facility] emergency department with a CAT scan was done and the patient was told to have diverticulosis without diverticulitis. Over the past week, the patient developed progressive worsening his abdominal discomfort and today came into the emergency department having more pain and the pain was rather diffuse in nature. He had diminished appetite, diminished oral intake and he was having no significant bowel movements. No GI bleeding. Denies having any fever or chills. He was nauseated when he was getting progressively more lethargic and weak and short of breath. CAT scan of the abdomen was done in the emergency department and showed significant inflammatory changes in the epigastric region involving posterior aspect of the proximal transverse colon. There was evidence of pneumoperitoneum around that along with some inflammatory changes as well as some free fluid in the abdomen. The stomach itself appeared to be within normal limits. The patient has long-term history of COPD and pulmonary fibrosis. Based on his pulmonary function test in 2017 he has an FVC of 72% and FEV1 of 46% and he has been steroid dependent for the past few years taking prednisone a daily basis. He has also underlying rheumatoid arthritis and previously he was taking immunosuppression with Humira none for now. His oxygen dependent. Blood work showed a white cell count 16.2 with a hemoglobin of 14.9. Platelet count is at 519. He has a BUN of 27 creatinine of 0.7 and lactic acid was at 1.9 with a troponin being less than 0.01. LFTs are all within normal limits. He is tachycardic with temperature 98.2. He was having sinus tachycardia with a heart rate of 120. He is currently on 5 L of oxygen by nasal cannula with a pulse ox of 90%. The patient will be taken to the operating room. He was seen by the surgical team following that I've advised the patient coming back to the intensive care unit for further evaluation and treatment. He may need to be kept intubated overnight. On 01/26/2019, the patient is postop day #4. The patient is doing well. He is awake and alert. History requiring high flow oxygen at 10 L. He doesn't have much reserve and he desaturates easily. NG tube was removed yesterday and this morning the patient was given some clear liquid diet. Surgical wound site is clean. Output from the TAHMINA drain is minimal in the order of 30 mL over the past 24 hours. Surgical wound site is dry clean and intact. He is passing flatus. No bowel activity as. He remains on IV Zosyn. He is using incentive spirometer. He is on status post hydrocortisone. He is awake and alert. He has pseudomonas aeruginosa in his sputum for which she is covered with IV Zosyn. No other significant events overnight. Patient was reevaluated today on 01/27/2019, remains on high flow nasal cannula 7 L/m, continues to have significantly abnormal chest x-ray with diffuse interstitial lung disease consistent with pulmonary fibrosis, underlying pneumonia is not entirely ruled out. His FiO2 is being titrated down, patient is noted to be short of breath with any activity. His sputum was positive for pseudomonas aeruginosa, remains on Zosyn. All labs were reviewed today, potassium is a bit low at 3.2 being corrected as per protocol. Patient was reevaluated today on 01/28/2019, remains on high flow nasal cannula, 90 L/m, patient is basically about the same, chest x-ray is basically about the same showing bibasilar interstitial lung disease consistent with pulmonary fibrosis. Again underlying pneumonia is not entirely ruled out but felt to be less likely. Patient is hemodynamically stable, in no distress, being treated f or pseudomonas aeruginosa in the sputum, remains on Zosyn. CBC is relatively normal WBC count is 10.5 hemoglobin is 11.5 light was normal except for low potassium being corrected as per protocol. Patient continues to have good urine output. Reevaluated today on 01/29/2019, remains in the ICU, he is presently overflow from selective. Patient remains on 8 L high flow nasal cannula, pulmonary stat us remains marginal. Overall it is better than expected considering his underlying COPD and underlying interstitial lung disease. Patient seems to be recovering slowly. Last chest x-ray showed basically chronic changes of COPD and interstitial lung disease. Underlying pneumonia is definitely not entirely ruled out. Patient had positive Pseudomonas in the sputum and he is being treated as such. Electrolytes are normal except for low potassium being corrected as per protocol. The patient himself denies shortness of breath, denies any pain, he is complaining of significant swelling in his upper and lower extremities, hence I initiated diuretics today. On 01/30/2019 patient seen in follow-up on medical surgical floor. He is awake and alert, in no acute distress, he is on 6 L of oxygen, with a pulse ox of 95- 96%, he is afebrile, hemodynamically stable. Work on his incentive spirometer, achieving about 1000 on the today. This is postop day 8 status post exploratory laparotomy with repair of the perforated duodenal ulcer and repair of the incarcerated umbilical hernia. he is doing well, he was started on some oral Lasix yesterday, for generalized anasarca, and he is in -1869 mL fluid balance over the last 24 hours. Still has quite a bit of swelling in his upper and lower extremities. His lab work has been reviewed, showing white blood cell count of 20.9, hemoglobin of 11.6, serum sodium is 136, potassium is 2.7, this being replaced per protocol, chloride is 95, CO2 39, creatinine of 0.57 and BUN of 13. Patient is tolerating oral intake, he is passing bowel movements. No new chest x-rays today Objective - Vital Signs Vital signs: Vital Signs Temp 97.5 F L 01/30/19 07:00 Pulse 88 01/30/19 07:00 Resp 16 01/30/19 07:00 BP 113/69 01/30/19 07:00 Pulse Ox 95 01/30/19 07:00 Intake & Output 01/29/19 01/30/19 01/30/19 18:59 06:59 18:59 Intake Total 1160 Output Total 475 430 Balance 685 -430 Weight 76 kg Intake: IV 200 Fluconazole in NaCl,Iso- 100 Osm 200 mg In Saline 1 100ml.bag @ 100 mls/hr IVPB DAILY [facility] Rx#: [id number] Piperacillin-Tazobactam 3 100 .375 gm In Sodium Chloride 0.9% 100 ml @ 25 mls/hr IVPB Q8HR [facility] Rx# :[id number] Oral 960 Output: Drainage 30 Right Lower Abdomen 30 Urine 475 400 Other: Voiding Method Indwelling Catheter # Voids 1 # Bowel Movements 1 ABP, PAP, CO, CI - Last Documented Arterial Blood Pressure 146/47 - Exam GENERAL EXAM: Alert, pleasant, 68-year-old white male, on 6 L of oxygen, comfortable in no apparent distress. HEAD: Normocephalic/atraumatic. EYES: Normal reaction of pupils, equal size. Conjunctiva pink, sclera white. NOSE: Clear with pink turbinates. THROAT: No erythema or exudates. NECK: No masses, no JVD, no thyroid enlargement, no adenopathy. CHEST: No chest wall deformity. Symmetrical expansion. LUNGS: Equal air entry with dementia breath sounds, and basilar rales CVS: Regular rate and rhythm, normal S1 and S2, no gallops, no murmurs, no rubs ABDOMEN: Soft, nontender. No hepatosplenomegaly, normal bowel sounds, no guarding or rigidity. EXTREMITIES: No clubbing, generalized edema, no cyanosis, 2+ pulses and upper and lower extremities. MUSCULOSKELETAL: Muscle strength and tone normal. SPINE: No scoliosis or deformity SKIN: No rashes CENTRAL NERVOUS SYSTEM: Alert and oriented -3. No focal deficits, tone is normal in all 4 extremities. PSYCHIATRIC: Alert and oriented -3. Appropriate affect. Intact judgment and insight. - Labs CBC & Chem 7: 01/30/19 07:26 01/30/19 07:26 Labs: Abnormal Lab Results - Last 24 Hours (Table) 01/29/19 01/29/19 01/29/19 Range/Units 12:08 12:43 17:54 WBC (3.8-10.6) k/uL RBC (4.30-5.90) m/uL Hgb (13.0-17.5) gm/dL Hct (39.0-53.0) % RDW (11.5-15.5) % Plt Count (150-450) k/uL Neutrophils # (1.3-7.7) k/uL Lymphocytes # (1.0-4.8) k/uL Sodium (137-145) mmol/L Potassium 3.2 L (3.5-5.1) mmol/L Chloride (98-107) mmol/L Carbon Dioxide (22-30) mmol/L Creatinine (0.66-1.25) mg/dL Glucose (74-99) mg/dL POC Glucose (mg/dL) 102 H 122 H (75-99) mg/dL Calcium (8.4-10.2) mg/dL 01/29/19 01/30/19 01/30/19 Range/Units 21:14 06:55 07:26 WBC 20.9 H (3.8-10.6) k/uL RBC 3.94 L (4.30-5.90) m/uL Hgb 11.6 L (13.0-17.5) gm/dL Hct 36.8 L (39.0-53.0) % RDW 16.1 H (11.5-15.5) % Plt Count 484 H (150-450) k/uL Neutrophils # 19.5 H (1.3-7.7) k/uL Lymphocytes # 0.6 L (1.0-4.8) k/uL Sodium (137-145) mmol/L Potassium (3.5-5.1) mmol/L Chloride (98-107) mmol/L Carbon Dioxide (22-30) mmol/L Creatinine (0.66-1.25) mg/dL Glucose (74-99) mg/dL POC Glucose (mg/dL) 180 H 134 H (75-99) mg/dL Calcium (8.4-10.2) mg/dL 01/30/19 01/30/19 Range/Units 07:26 11:07 WBC (3.8-10.6) k/uL RBC (4.30-5.90) m/uL Hgb (13.0-17.5) gm/dL Hct (39.0-53.0) % RDW (11.5-15.5) % Plt Count (150-450) k/uL Neutrophils # (1.3-7.7) k/uL Lymphocytes # (1.0-4.8) k/uL Sodium 136 L (137-145) mmol/L Potassium 2.7 L* (3.5-5.1) mmol/L Chloride 95 L (98-107) mmol/L Carbon Dioxide 39 H (22-30) mmol/L Creatinine 0.57 L (0.66-1.25) mg/dL Glucose 109 H (74-99) mg/dL POC Glucose (mg/dL) 154 H (75-99) mg/dL Calcium 7.9 L (8.4-10.2) mg/dL Assessment and Plan Plan: Assessment: 1 acute pneumoperitoneum secondary to perforation of duodenal ulcer status post treatment. Of duodenal ulcer and repair of incarcerated umbilical hernia postoperative day #8 2 advanced COPD and severe pulmonary fibrosis with chronic hypoxic respiratory failure 3 history of rheumatoid arthritis 4 obstructive sleep apnea syndrome not compliant with CPAP. 5 chronic back pain 6 osteoarthritis 7 pseudomonas aeruginosa in the sputum, could be a colonization or could be secondary to pseudomonal pneumonia. Best to continue antibiotics at present since the patient's pulmonary status is rather marginal. 8 acute on chronic hypoxic respiratory failure multifactorial mostly related to his COPD, pulmonary fibrosis, and suspect some component of pneumonia/pseudomonal pneumonia. Plan: Continue encouraging deep breathing and coughing, continue with oral diuretics, patient is maintaining negative fluid balance, still has quite a bit of generalized swelling, but no focal to breathing, wean FiO2, monitor electrolytes and renal profile daily. Continue current antibiotics, vital signs are stable, no fever or chills, tolerating diet, passing bowel movements. We'll continue to follow I performed a history & physical examination of the patient and discussed their management with my nurse practitioner, Stella Powers. I reviewed the nurse practitioner's note and agree with the documented findings and plan of care. Lung sounds are positive for diminished breath sounds, with basilar rales. The findings and the impression was discussed with the patient. I attest to the documentation by the nurse practitioner. Time with Patient: Less than 30
[2019-01-30] MEDS: POTASSIUM CHLORIDE ER 20 MEQ TAB.ER PO SCH ×2 (12:05→13:18)
--- NOTE | 2019-01-30 12:14 | P.PN ---
<Ann Marie Xie Goran - Last Filed: 01/30/19 14:06> Subjective Progress Note Date: 01/30/19 CHIEF COMPLAINT: Perforated duodenal ulcer HISTORY OF PRESENT ILLNESS: Patient seen and examined at the bedside. Patient reports increased abdominal discomfort this morning. He denies nausea or vomiting. Reports passing flatus and having BMs. Tolerating full liquid diet. HR low 100s. Afebrile. WBC increased to 20.9. Hemoglobin 11.6 Potassium 2.7. Magnesium 1.9 PHYSICAL EXAM: VITAL SIGNS: Reviewed. GENERAL: Well-developed in no acute distress. HEENT: No sclera icterus. Extraocular movements grossly intact. Moist buccal mucosa. Head is atraumatic, normocephalic. ABDOMEN: Soft. Nondistended. Dressing clean dry intact. TAHMINA with dark old appearing bloody drainage. NEUROLOGIC: Alert and oriented. Cranial nerves II through XII grossly intact. ASSESSMENT: 1. Perforated duodenal ulcer, status post exploratory laparotomy with repair of perforated duodenal ulcer and repair of incarcerated umbilical hernia PLAN: 1. Continue full liquid diet 2. Replace potassium (80meq) and magnesium (2gram). Repeat potassium at 1500. 3. Continue dressing changes with Telfa kyra 4. Incentive spirometry 5. Activity as tolerated 6. Continue antibiotics. Monitor WBC 7. CT abdomen/pelvis Nurse practitioner note has been reviewed by physician. Signing provider agrees with the documented findings, assessment, and plan of care. Objective - Vital Signs Vital signs: Vital Signs Temp 97.5 F L 01/30/19 07:00 Pulse 88 01/30/19 07:00 Resp 16 01/30/19 07:00 BP 113/69 01/30/19 07:00 Pulse Ox 95 01/30/19 07:00 Intake & Output 01/29/19 01/30/19 01/30/19 18:59 06:59 18:59 Intake Total 1160 Output Total 475 430 Balance 685 -430 Weight 76 kg Intake: IV 200 Fluconazole in NaCl,Iso- 100 Osm 200 mg In Saline 1 100ml.bag @ 100 mls/hr IVPB DAILY [facility] Rx#: [id number] Piperacillin-Tazobactam 3 100 .375 gm In Sodium Chloride 0.9% 100 ml @ 25 mls/hr IVPB Q8HR [facility] Rx# :[id number] Oral 960 Output: Drainage 30 Right Lower Abdomen 30 Urine 475 400 Other: Voiding Method Indwelling Catheter # Voids 1 # Bowel Movements 1 ABP, PAP, CO, CI - Last Documented Arterial Blood Pressure 146/47 - Labs CBC & Chem 7: 01/30/19 07:26 01/30/19 07:26 Labs: Abnormal Lab Results - Last 24 Hours (Table) 01/29/19 01/29/19 01/29/19 Range/Units 12:08 12:43 17:54 WBC (3.8-10.6) k/uL RBC (4.30-5.90) m/uL Hgb (13.0-17.5) gm/dL Hct (39.0-53.0) % RDW (11.5-15.5) % Plt Count (150-450) k/uL Neutrophils # (1.3-7.7) k/uL Lymphocytes # (1.0-4.8) k/uL Sodium (137-145) mmol/L Potassium 3.2 L (3.5-5.1) mmol/L Chloride (98-107) mmol/L Carbon Dioxide (22-30) mmol/L Creatinine (0.66-1.25) mg/dL Glucose (74-99) mg/dL POC Glucose (mg/dL) 102 H 122 H (75-99) mg/dL Calcium (8.4-10.2) mg/dL 01/29/19 01/30/19 01/30/19 Range/Units 21:14 06:55 07:26 WBC 20.9 H (3.8-10.6) k/uL RBC 3.94 L (4.30-5.90) m/uL Hgb 11.6 L (13.0-17.5) gm/dL Hct 36.8 L (39.0-53.0) % RDW 16.1 H (11.5-15.5) % Plt Count 484 H (150-450) k/uL Neutrophils # 19.5 H (1.3-7.7) k/uL Lymphocytes # 0.6 L (1.0-4.8) k/uL Sodium (137-145) mmol/L Potassium (3.5-5.1) mmol/L Chloride (98-107) mmol/L Carbon Dioxide (22-30) mmol/L Creatinine (0.66-1.25) mg/dL Glucose (74-99) mg/dL POC Glucose (mg/dL) 180 H 134 H (75-99) mg/dL Calcium (8.4-10.2) mg/dL 01/30/19 Range/Units 07:26 WBC (3.8-10.6) k/uL RBC (4.30-5.90) m/uL Hgb (13.0-17.5) gm/dL Hct (39.0-53.0) % RDW (11.5-15.5) % Plt Count (150-450) k/uL Neutrophils # (1.3-7.7) k/uL Lymphocytes # (1.0-4.8) k/uL Sodium 136 L (137-145) mmol/L Potassium 2.7 L* (3.5-5.1) mmol/L Chloride 95 L (98-107) mmol/L Carbon Dioxide 39 H (22-30) mmol/L Creatinine 0.57 L (0.66-1.25) mg/dL Glucose 109 H (74-99) mg/dL POC Glucose (mg/dL) (75-99) mg/dL Calcium 7.9 L (8.4-10.2) mg/dL <Chucky Levi - Last Filed: 01/30/19 14:30> Subjective As above. Patient's white blood cell count has increased today. Shortness of breath and abdominal pain both seem improved. Abdominal exam relatively benign. We'll order CT abdomen and pelvis at this time. Continue antibiotics. Objective - Vital Signs Vital signs: Vital Signs Temp 98 F 01/30/19 14:06 Pulse 117 H 01/30/19 14:06 Resp 16 01/30/19 14:06 BP 150/87 01/30/19 14:06 Pulse Ox 93 L 01/30/19 14:06 Intake & Output 01/29/19 01/30/19 01/30/19 18:59 06:59 18:59 Intake Total 1160 Output Total 475 430 Balance 685 -430 Weight 76 kg Intake: IV 200 Fluconazole in NaCl,Iso- 100 Osm 200 mg In Saline 1 100ml.bag @ 100 mls/hr IVPB DAILY [facility] Rx#: [id number] Piperacillin-Tazobactam 3 100 .375 gm In Sodium Chloride 0.9% 100 ml @ 25 mls/hr IVPB Q8HR [facility] Rx# :[id number] Oral 960 Output: Drainage 30 Right Lower Abdomen 30 Urine 475 400 Other: Voiding Method Indwelling Catheter # Voids 1 # Bowel Movements 1 ABP, PAP, CO, CI - Last Documented Arterial Blood Pressure 146/47 - Labs CBC & Chem 7: 01/30/19 07:26 01/30/19 07:26 Labs: Abnormal Lab Results - Last 24 Hours (Table) 01/29/19 01/29/19 01/30/19 Range/Units 17:54 21:14 06:55 WBC (3.8-10.6) k/uL RBC (4.30-5.90) m/uL Hgb (13.0-17.5) gm/dL Hct (39.0-53.0) % RDW (11.5-15.5) % Plt Count (150-450) k/uL Neutrophils # (1.3-7.7) k/uL Lymphocytes # (1.0-4.8) k/uL Sodium (137-145) mmol/L Potassium (3.5-5.1) mmol/L Chloride (98-107) mmol/L Carbon Dioxide (22-30) mmol/L Creatinine (0.66-1.25) mg/dL Glucose (74-99) mg/dL POC Glucose (mg/dL) 122 H 180 H 134 H (75-99) mg/dL Calcium (8.4-10.2) mg/dL 01/30/19 01/30/19 01/30/19 Range/Units 07:26 07:26 11:07 WBC 20.9 H (3.8-10.6) k/uL RBC 3.94 L (4.30-5.90) m/uL Hgb 11.6 L (13.0-17.5) gm/dL Hct 36.8 L (39.0-53.0) % RDW 16.1 H (11.5-15.5) % Plt Count 484 H (150-450) k/uL Neutrophils # 19.5 H (1.3-7.7) k/uL Lymphocytes # 0.6 L (1.0-4.8) k/uL Sodium 136 L (137-145) mmol/L Potassium 2.7 L* (3.5-5.1) mmol/L Chloride 95 L (98-107) mmol/L Carbon Dioxide 39 H (22-30) mmol/L Creatinine 0.57 L (0.66-1.25) mg/dL Glucose 109 H (74-99) mg/dL POC Glucose (mg/dL) 154 H (75-99) mg/dL Calcium 7.9 L (8.4-10.2) mg/dL Assessment and Plan (1) Bowel perforation Current Visit: Yes Status: Acute Code(s): K63.1 - PERFORATION OF INTESTINE (NONTRAUMATIC) SNOMED Code(s): 15051252
[2019-01-30] MEDS: IOPAMIDOL-300 CONTRAST 30 ML VIAL (ORAL USE) PO PRN ×2 (12:41→13:41)
[2019-01-30] MEDS: FLUCONAZOLE IN NACL,ISO-OSM 200 MG in SALINE 1 100ML.BAG IVPB SCH (13:05)
--- NOTE | 2019-01-30 15:02 | CT ---
EXAMINATION TYPE: CT abdomen pelvis w con DATE OF EXAM: 01/30/2019 COMPARISON: 01/22/2019 HISTORY: increasing WBC post op. CT DLP: 872.9 mGycm Automated exposure control for dose reduction was used. TECHNIQUE: Helical acquisition of images was performed from the lung bases through the pelvis. CONTRAST: Performed with Oral Contrast and with IV Contrast, patient injected with 100 mL of Isovue 300. FINDINGS: There is patchy airspace infiltrate and atelectasis in the lung bases bilaterally. There are bilatera l small pleural effusions. Stomach appears normal. There is large drainage catheter in the upper abdo men. There are skin gladys in the midline anterior abdomen. Liver shows no focal defect. There is no pericardial effusion. There are small calcified splenic granulomata. There is no evidence of pancrea tic mass. There is patchy fluid accumulation in the anterior upper abdomen involving small bowel mese ntery and the omentum. Fluid measures up to 1.5 cm. There are numerous sigmoid diverticula. There is no free fluid in the pelvis. There is fluid level in the urinary bladder consistent with catheterization. I see no definite free air in the abdomen. Ther e is no evidence of a bowel obstruction. There is no adrenal mass. Kidneys show satisfactory contrast opacification. There is no hydronephrosi s. There is 2.3 cm cyst in the parapelvic lower pole right kidney. I see no bony destructive process but there is apparent old mild compression fractures of L3 and L4. There is L2-3 spinal stenosis related to endplate spur formation and compression fracture of superior L3 vertebral body. IMPRESSION: COMPARED TO LAST EXAM THERE IS RECENT SURGERY WITH ANTERIOR MIDLINE SKIN GLADYS. THERE IS A NEW DRAI N IN THE ANTERIOR UPPER ABDOMEN. THERE IS DECREASE IN THE PATCHY FLUID ACCUMULATION INVOLVING THE SMA LL BOWEL MESENTERY. NO EVIDENCE OF ANY NO FLUID COLLECTION. THERE IS REDUCTION OF THE UMBILICAL HERNI A COMPARED TO LAST EXAM. THERE IS STABLE SIGMOID DIVERTICULOSIS WITHOUT DIVERTICULITIS. THERE ARE PATCHY BILATERAL BASILAR PULMONARY INFILTRATES AND ATELECTASIS AND PLEURAL FLUID INCREASED COMPARED TO LAST EXAM.
[2019-01-30 17:10] LABS: Glucose,Whole Blood 154 mg/dL (75-99)
--- NOTE | 2019-01-30 20:09 | PN ---
PROGRESS NOTE DATE OF SERVICE: 01/30/2019 REASON FOR FOLLOWUP: Secondary peritonitis from perforated peptic ulcer disease. INTERVAL HISTORY: The patient is currently afebrile. The patient has been breathing comfortably. The patient did have some cough but denies abdominal pain. No nausea, no vomiting or any diarrhea. PHYSICAL EXAMINATION: Blood pressure 150/87 with a pulse of 117, temperature 98. He is 93% on 6 L high-flow oxygen. General description is an elderly male up in the bed in no distress. RESPIRATORY SYSTEM: Unlabored breathing with decreased breath sounds at the base. No wheeze. HEART: S1, S2. Regular rate and rhythm. ABDOMEN: Soft. No tenderness. LABS: Hemoglobin is 11.6. White count jumped to 20,000. BUN of 13, creatinine 0.57. DIAGNOSTIC IMPRESSION AND PLAN: Patient with secondary peritonitis from perforated peptic ulcer disease. Patient is status post laparotomy and repair of the same. The patient did have a significant jump in his white count today, for which a CT of abdomen and pelvis was completed. It showed a decrease in the patchy fluid accumulation involving the small bowel mesentery. Patient at this time is covered with Zosyn and Diflucan; to continue while watching his clinical course closely. re-culture and adjust antibiotics if further jump in the white count develops any fever. Continue with supportive care. MMODL / IJN: [id number] / MTDD
[2019-01-30 20:24] LABS: Glucose,Whole Blood 191 mg/dL (75-99)
[2019-01-31] MEDS: HYDROmorphone 1 MG/ML 1 ML SYRINGE IVP PRN ×3 (00:45→21:59)
[2019-01-31] MEDS: IPRATROPIUM-ALBUTEROL 3 ML NEB INHALATION SCH ×4 (03:43→20:16)
[2019-01-31] MEDS: HYDROcodone/APAP 5-325MG 1 EACH TAB PO PRN ×2 (05:58→10:55)
[2019-01-31 07:14] LABS: Glucose,Whole Blood 105 mg/dL (75-99)
[2019-01-31] MEDS: INSULIN ASPART (NovoLOG) 100 UNIT/ML VIAL SQ SCH ×4 (07:24→21:17)
[2019-01-31 08:26] LABS: Blood Urea Nitrogen 12 mg/dL (9-20); Calcium 8.4 mg/dL (8.4-10.2); Chloride 94 mmol/L (98-107); Glucose 108 mg/dL (74-99); Magnesium 2.1 mg/dL (1.6-2.3); Potassium 3.5 mmol/L (3.5-5.1); Sodium 138 mmol/L (137-145)
[2019-01-31] MEDS: FLUCONAZOLE IN NACL,ISO-OSM 200 MG in SALINE 1 100ML.BAG IVPB SCH (08:32)
[2019-01-31] MEDS: HYDROCORTISONE SUCCINATE 100 MG/2 ML VIAL IV SCH ×2 (08:33→18:14)
[2019-01-31 08:34] LABS: Anion Gap 3 mmol/L
[2019-01-31] MEDS: HEPARIN SODIUM,PORCINE 5,000 UNIT/ML 1 ML VIAL SQ SCH ×2 (08:38→18:14)
[2019-01-31] MEDS: FUROSEMIDE 20 MG TAB PO SCH ×2 (08:40→18:14)
[2019-01-31] MEDS: PANTOPRAZOLE 40 MG/10 ML VIAL IVP SCH (08:41)
[2019-01-31 08:54] LABS: Carbon Dioxide 41 mmol/L (22-30)
--- NOTE | 2019-01-31 09:07 | P.PN ---
Subjective This is a 68 years old male with past medical history of COPD on home oxygen, hyperlipidemia, rheumatoid arthritis, sleep apnea on CPAP. Presents with abdominal pain , has been evaluated by surgery on admission and taken to the operation room found to have perforated duodenal ulcer and incarcerated umbilical hernia. After the surgery patient was taken to the intensive care unit, he got intubated. He was started on Zosyn, and Flagyl. He is also on Protonix for DVT prophylaxis. And he is in normal cement 120 L/h. Patient currently is not on pressors. He has J drain with 200 mL of bloody discharge from abdominal wound. NG tube was about 200 mL drainage. Currently patient is in ICU, vital showing blood pressure is 87/44, saturating 95% on FiO2 of 50%. Temperature 97.5. WBC 12.4 K, potassium 5.2 sodium 135. Creatinine 0.7. Urinalysis is not suspicious of infection. Chest x-ray: Interstitial lung disease, endotracheal tube is in place. CT of the abdomen and pelvis done prior to surgery was reviewed. EKG sinus tachycardia at 113. No significant ST-T changes. Subjective Date of service 01/24/2019 Patient went to the ICU. He is status post extubation. With no chest pain or dyspnea. Vitas looks stable. Still complaining from pain at the surgical abdominal site. No bowel movement yet. WBC 14.5 K. Creatinine 0.6. 01/25/2019 pt is in ICU, he is awake and alert asking for food, still has NG tube with more than 300 ml drained , sluggish bowel movement, passing gas only, NG tube is planed to be taken off by surgery team and start on clear liquid diet tomorrow, sputum is growing pseudomonas and pt is currently on zosyn and diflucan, ID team are following the pt closely , WBC 14.7K, BMP is unremarkable, vials stable 01/26/2019 Patient remains in the ICU. His sputum culture is growing Pseudomonas, patient is currently on Zosyn. Chest x-ray possible right lower pneumonia but patient with no respiratory symptoms. Infectious disease are following the case closely. Patient is currently on clear liquid. Once daily, vitals are stable and patient is afebrile 01/27/2019 Patient seen in the ICU. His doing well and improving with controlled abdominal pain, isn't clear liquid diet. Patient is afebrile and saturating 95% on 5 L of oxygen. He is currently on antibiotic Zosyn and fluconazole for Pseudomonas in his sputum. WBC is coming back to normal at 10.5 K, hemoglobin stable at 11.5. His also on his steroids Cortef 3 times a day. Continue breathing treatments and oxygen for his advanced COPD and interstitial pulmonary disease. Chest x- ray also showed nodular density and the molding cutter recommended 6 month follow- up with CAT scan. 01/28/2019 Patient keep improving, he is awake, slightly improved but better than when he came seen. He is starting his diet, his diet today has been advised to follow liquid diet. Pain at surgical site is controlled and IV fluid was stopped. Patient is hemodynamically stable. He saturating 97% on 9 L oxygen via high flow cannula. Continue to be on Zosyn for his Pseudomonas. Since he is improving his going to be transferred to the general medical floor today 01/29/2019 Patient in ICU, going to the general medical floor. He is awake, tolerating diet well with no problems of 18, his abdominal pain is controlled and expected some residual tenderness at the surgical site. Patient is hemodynamically stable. That is been advanced. Surgery team are following the case closely. Hemodynamically stable. WBC is back to normal level. Potassium mildly low sugar is controlled. Patient is currently on Lasix 20 mg twice a day. 01/30/2019 pt was sitting at bed side, shaving and helping him , he was upset he has big bowel movement earlier in the morning, pt with no significant resp or urinary symptoms , he has abdominal tenderness but also he has healing abdomen incision from his recent surgery , he has increased in wbc from 10 to 20k , surgical team evaluated pt , he has ct of abd: no fluid collection , bilateral pulmonary infilterate. pul and ID team are following the case . pt currently is on zosyn Objective - Vital Signs Vital signs: Vital Signs Temp 98 F 01/30/19 14:06 Pulse 100 01/30/19 16:12 Resp 6 L 01/30/19 15:00 BP 150/87 01/30/19 14:06 Pulse Ox 93 L 01/30/19 14:06 Intake & Output 01/30/19 01/30/19 01/31/19 06:59 18:59 06:59 Intake Total 1860 Output Total 430 430 Balance -430 1430 Intake: IV 300 Fluconazole in NaCl,Iso- 200 Osm 200 mg In Saline 1 100ml.bag @ 100 mls/hr IVPB DAILY [facility] Rx#: [id number] Piperacillin-Tazobactam 3 100 .375 gm In Sodium Chloride 0.9% 100 ml @ 25 mls/hr IVPB Q8HR [facility] Rx# :[id number] Intake, IV Titration 200 Amount Magnesium Sulfate-D5w Pmx 200 1 gm In Dextrose/Water 1 100ml.bag @ 100 mls/hr IVPB Q1H [facility] Rx#: [id number] Oral 1360 Output: Drainage 30 30 Right Lower Abdomen 30 30 Urine 400 400 Other: Voiding Method Indwelling Catheter # Voids 1 2 # Bowel Movements 1 1 ABP, PAP, CO, CI - Last Documented Arterial Blood Pressure 146/47 - Exam GENERAL: The patient is alert oriented, not in distress HEENT: Pupils are round and equally reacting to light. EOMI. No scleral icterus. No conjunctival pallor. Normocephalic, atraumatic. No pharyngeal erythema. No thyromegaly. CARDIOVASCULAR: S1 and S2 present. No murmurs, rubs, or gallops. PULMONARY: Chest is clear to auscultation, no wheezing or crackles. ABDOMEN: Soft, is status post exploratory laparotomy, dressing is in place, wound is CLOSED. MUSCULOSKELETAL: No joint swelling or deformity. EXTREMITIES: No cyanosis, clubbing, or pedal edema. NEUROLOGICAL: Gross neurological examination did not reveal any focal deficits. SKIN: No rashes. - Labs CBC & Chem 7: 01/30/19 07:26 01/31/19 07:33 Labs: Abnormal Lab Results - Last 24 Hours (Table) 01/30/19 01/30/19 01/30/19 Range/Units 06:55 07:26 07:26 WBC 20.9 H (3.8-10.6) k/uL RBC 3.94 L (4.30-5.90) m/uL Hgb 11.6 L (13.0-17.5) gm/dL Hct 36.8 L (39.0-53.0) % RDW 16.1 H (11.5-15.5) % Plt Count 484 H (150-450) k/uL Neutrophils # 19.5 H (1.3-7.7) k/uL Lymphocytes # 0.6 L (1.0-4.8) k/uL Sodium 136 L (137-145) mmol/L Potassium 2.7 L* (3.5-5.1) mmol/L Chloride 95 L (98-107) mmol/L Carbon Dioxide 39 H (22-30) mmol/L Creatinine 0.57 L (0.66-1.25) mg/dL Glucose 109 H (74-99) mg/dL POC Glucose (mg/dL) 134 H (75-99) mg/dL Calcium 7.9 L (8.4-10.2) mg/dL 01/30/19 01/30/19 01/30/19 Range/Units 11:07 15:17 17:08 WBC (3.8-10.6) k/uL RBC (4.30-5.90) m/uL Hgb (13.0-17.5) gm/dL Hct (39.0-53.0) % RDW (11.5-15.5) % Plt Count (150-450) k/uL Neutrophils # (1.3-7.7) k/uL Lymphocytes # (1.0-4.8) k/uL Sodium (137-145) mmol/L Potassium 3.0 L (3.5-5.1) mmol/L Chloride (98-107) mmol/L Carbon Dioxide (22-30) mmol/L Creatinine (0.66-1.25) mg/dL Glucose (74-99) mg/dL POC Glucose (mg/dL) 154 H 154 H (75-99) mg/dL Calcium (8.4-10.2) mg/dL 01/30/19 Range/Units 20:22 WBC (3.8-10.6) k/uL RBC (4.30-5.90) m/uL Hgb (13.0-17.5) gm/dL Hct (39.0-53.0) % RDW (11.5-15.5) % Plt Count (150-450) k/uL Neutrophils # (1.3-7.7) k/uL Lymphocytes # (1.0-4.8) k/uL Sodium (137-145) mmol/L Potassium (3.5-5.1) mmol/L Chloride (98-107) mmol/L Carbon Dioxide (22-30) mmol/L Creatinine (0.66-1.25) mg/dL Glucose (74-99) mg/dL POC Glucose (mg/dL) 191 H (75-99) mg/dL Calcium (8.4-10.2) mg/dL Assessment and Plan Assessment: Acute abdomen, status post exploratory laparotomy with perforated duodenal ulcer and incarcerated umbilical hernia Acute hypoxic respiratory failure. Acute COPD exacerbation Hyperlipidemia History of rheumatoid arthritis Plan: This is a 68 years old male who presents with perforated duodenal ulcers and incarcerated hernia, status post exploratory laparotomy. Patient after the surgery went to the intensive care unit. Status post intubating. Critical care team and surgery team R following the case closely. Continue with pain management, IV fluids and antibiotic.Labs and medication were reviewed.. Continue same treatment. Continue with symptomatic treatment. Resume home medication. Monitor lytes and vitals. DVT and GI prophylaxis. Further recommendations of the clinical course of the patient DVT prophylaxis: Subcutaneous heparin GI Prophylaxis: PPI Prognosis is guarded
[2019-01-31 09:16] LABS: Anisocytosis Slight; Basophils % (A) 0 %; Eosinophils # (A) 0.1 k/uL (0-0.7); Eosinophils % (A) 0 %; Hypochromasia Slight; Lymphocytes # (A) 0.6 k/uL (1.0-4.8); Lymphocytes % (A) 2 %; MCH 29.2 pg (25.0-35.0); MCHC 30.9 g/dL (31.0-37.0); MCV 94.4 fL (80.0-100.0); Mean Platelet Volume 7.2; Monocytes # (A) 0.8 k/uL (0-1.0); Monocytes % (A) 3 %; Neutrophils % (A) 95 %; Platelet Count 524 k/uL (150-450); RBC 4.45 m/uL (4.30-5.90); RDW 16.5 % (11.5-15.5); WBC 30.9 k/uL (3.8-10.6)
[2019-01-31 09:21] LABS: Neutrophils # (A) 29.3 k/uL (1.3-7.7)
[2019-01-31] MEDS: PIPERACILLIN-TAZOBACTAM 3.375 GM in SODIUM CHLORIDE 0.9% 100 ML IVPB SCH ×2 (10:11→18:14)
[2019-01-31 11:52] LABS: Glucose,Whole Blood 141 mg/dL (75-99)
--- NOTE | 2019-01-31 12:25 | P.PN ---
Subjective Progress Note Date: 01/31/19 Principal diagnosis: Acute pneumoperitoneum secondary to perforated duodenal ulcer 68-year-old male patient came into the emergency department with a one-week history of abdominal pain. He initially went to [facility] emergency department with a CAT scan was done and the patient was told to have diverticulosis without diverticulitis. Over the past week, the patient developed progressive worsening his abdominal discomfort and today came into the emergency department having more pain and the pain was rather diffuse in nature. He had diminished appetite, diminished oral intake and he was having no significant bowel movements. No GI bleeding. Denies having any fever or chills. He was nauseated when he was getting progressively more lethargic and weak and short of breath. CAT scan of the abdomen was done in the emergency department and showed significant inflammatory changes in the epigastric region involving posterior aspect of the proximal transverse colon. There was evidence of pneumoperitoneum around that along with some inflammatory changes as well as some free fluid in the abdomen. The stomach itself appeared to be within normal limits. The patient has long-term history of COPD and pulmonary fibrosis. Based on his pulmonary function test in 2017 he has an FVC of 72% and FEV1 of 46% and he has been steroid dependent for the past few years taking prednisone a daily basis. He has also underlying rheumatoid arthritis and previously he was taking immunosuppression with Humira none for now. His oxygen dependent. Blood work showed a white cell count 16.2 with a hemoglobin of 14.9. Platelet count is at 519. He has a BUN of 27 creatinine of 0.7 and lactic acid was at 1.9 with a troponin being less than 0.01. LFTs are all within normal limits. He is tachycardic with temperature 98.2. He was having sinus tachycardia with a heart rate of 120. He is currently on 5 L of oxygen by nasal cannula with a pulse ox of 90%. The patient will be taken to the operating room. He was seen by the surgical team following that I've advised the patient coming back to the intensive care unit for further evaluation and treatment. He may need to be kept intubated overnight. On 01/26/2019, the patient is postop day #4. The patient is doing well. He is awake and alert. History requiring high flow oxygen at 10 L. He doesn't have much reserve and he desaturates easily. NG tube was removed yesterday and this morning the patient was given some clear liquid diet. Surgical wound site is clean. Output from the [place] drain is minimal in the order of 30 mL over the past 24 hours. Surgical wound site is dry clean and intact. He is passing flatus. No bowel activity as. He remains on IV Zosyn. He is using incentive spirometer. He is on status post hydrocortisone. He is awake and alert. He has pseudomonas aeruginosa in his sputum for which she is covered with IV Zosyn. No other significant events overnight. Patient was reevaluated today on 01/27/2019, remains on high flow nasal cannula 7 L/m, continues to have significantly abnormal chest x-ray with diffuse interstitial lung disease consistent with pulmonary fibrosis, underlying pneumonia is not entirely ruled out. His FiO2 is being titrated down, patient is noted to be short of breath with any activity. His sputum was positive for pseudomonas aeruginosa, remains on Zosyn. All labs were reviewed today, potassium is a bit low at 3.2 being corrected as per protocol. Patient was reevaluated today on 01/28/2019, remains on high flow nasal cannula, 90 L/m, patient is basically about the same, chest x-ray is basically about the same showing bibasilar interstitial lung disease consistent with pulmonary fibrosis. Again underlying pneumonia is not entirely ruled out but felt to be less likely. Patient is hemodynamically stable, in no distress, being treated f or pseudomonas aeruginosa in the sputum, remains on Zosyn. CBC is relatively normal WBC count is 10.5 hemoglobin is 11.5 light was normal except for low potassium being corrected as per protocol. Patient continues to have good urine output. Reevaluated today on 01/29/2019, remains in the ICU, he is presently overflow from selective. Patient remains on 8 L high flow nasal cannula, pulmonary stat us remains marginal. Overall it is better than expected considering his underlying COPD and underlying interstitial lung disease. Patient seems to be recovering slowly. Last chest x-ray showed basically chronic changes of COPD and interstitial lung disease. Underlying pneumonia is definitely not entirely ruled out. Patient had positive Pseudomonas in the sputum and he is being treated as such. Electrolytes are normal except for low potassium being corrected as per protocol. The patient himself denies shortness of breath, denies any pain, he is complaining of significant swelling in his upper and lower extremities, hence I initiated diuretics today. On 01/30/2019 patient seen in follow-up on medical surgical floor. He is awake and alert, in no acute distress, he is on 6 L of oxygen, with a pulse ox of 95- 96%, he is afebrile, hemodynamically stable. Work on his incentive spirometer, achieving about 1000 on the today. This is postop day 8 status post exploratory laparotomy with repair of the perforated duodenal ulcer and repair of the incarcerated umbilical hernia. he is doing well, he was started on some oral Lasix yesterday, for generalized anasarca, and he is in -1869 mL fluid balance over the last 24 hours. Still has quite a bit of swelling in his upper and lower extremities. His lab work has been reviewed, showing white blood cell count of 20.9, hemoglobin of 11.6, serum sodium is 136, potassium is 2.7, this being replaced per protocol, chloride is 95, CO2 39, creatinine of 0.57 and BUN of 13. Patient is tolerating oral intake, he is passing bowel movements. No new chest x-rays today The patient is seen today 01/31/2019 in follow-up on the regular medical floor. He is awake and alert in no acute distress. Currently sitting up at the bedside. Currently on 6 L high flow nasal cannula. He utilizes 3.5 L at home. He is afebrile. Hemodynamically stable. White count 30.9. Hemoglobin 13.0. Creatinine 0.54. Remains on Zosyn, Solu-Cortef, DuoNeb inhalations. Objective - Vital Signs Vital signs: Vital Signs Temp 98.8 F 01/31/19 07:00 Pulse 100 01/31/19 08:56 Resp 14 01/31/19 07:00 BP 110/72 01/31/19 07:00 Pulse Ox 91 L 01/31/19 07:00 Intake & Output 01/30/19 01/31/19 01/31/19 18:59 06:59 18:59 Intake Total 1860 400 Output Total 430 3 400 Balance 1430 -3 0 Intake: IV 300 Fluconazole in NaCl,Iso- 200 Osm 200 mg In Saline 1 100ml.bag @ 100 mls/hr IVPB DAILY [facility] Rx#: [id number] Piperacillin-Tazobactam 3 100 .375 gm In Sodium Chloride 0.9% 100 ml @ 25 mls/hr IVPB Q8HR [facility] Rx# :[id number] Intake, IV Titration 200 Amount Magnesium Sulfate-D5w Pmx 200 1 gm In Dextrose/Water 1 100ml.bag @ 100 mls/hr IVPB Q1H [facility] Rx#: [id number] Oral 1360 400 Output: Drainage 30 Right Lower Abdomen 30 Urine 400 400 Urine/Stool Mix 3 Other: Voiding Method Indwelling Catheter Bedside Commode Bedside Commode # Voids 2 2 2 # Bowel Movements 1 1 ABP, PAP, CO, CI - Last Documented Arterial Blood Pressure 146/47 - Exam GENERAL EXAM: Alert, pleasant, 68-year-old male, on 6 L of oxygen, comfortable in no apparent distress. HEAD: Normocephalic/atraumatic. EYES: Normal reaction of pupils, equal size. Conjunctiva pink, sclera white. NOSE: Clear with pink turbinates. THROAT: No erythema or exudates. NECK: No masses, no JVD, no thyroid enlargement, no adenopathy. CHEST: No chest wall deformity. Symmetrical expansion. LUNGS: Equal air entry with dementia breath sounds, and basilar rales CVS: Regular rate and rhythm, normal S1 and S2, no gallops, no murmurs, no rubs ABDOMEN: Soft, nontender. No hepatosplenomegaly, normal bowel sounds, no guarding or rigidity. EXTREMITIES: No clubbing, generalized edema, no cyanosis, 2+ pulses and upper and lower extremities. MUSCULOSKELETAL: Muscle strength and tone normal. SPINE: No scoliosis or deformity SKIN: No rashes CENTRAL NERVOUS SYSTEM: No focal deficits, tone is normal in all 4 extremities. PSYCHIATRIC: Alert and oriented -3. Appropriate affect. Intact judgment and insight. - Labs CBC & Chem 7: 01/31/19 07:33 01/31/19 07:33 Labs: Abnormal Lab Results - Last 24 Hours (Table) 01/30/19 01/30/19 01/30/19 Range/Units 15:17 17:08 20:22 WBC (3.8-10.6) k/uL MCHC (31.0-37.0) g/dL RDW (11.5-15.5) % Plt Count (150-450) k/uL Neutrophils # (1.3-7.7) k/uL Lymphocytes # (1.0-4.8) k/uL Potassium 3.0 L (3.5-5.1) mmol/L Chloride (98-107) mmol/L Carbon Dioxide (22-30) mmol/L Creatinine (0.66-1.25) mg/dL Glucose (74-99) mg/dL POC Glucose (mg/dL) 154 H 191 H (75-99) mg/dL 01/31/19 01/31/19 01/31/19 Range/Units 07:12 07:33 07:33 WBC 30.9 H (3.8-10.6) k/uL MCHC 30.9 L (31.0-37.0) g/dL RDW 16.5 H (11.5-15.5) % Plt Count 524 H (150-450) k/uL Neutrophils # 29.3 H (1.3-7.7) k/uL Lymphocytes # 0.6 L (1.0-4.8) k/uL Potassium (3.5-5.1) mmol/L Chloride 94 L (98-107) mmol/L Carbon Dioxide 41 H* (22-30) mmol/L Creatinine 0.54 L (0.66-1.25) mg/dL Glucose 108 H (74-99) mg/dL POC Glucose (mg/dL) 105 H (75-99) mg/dL 01/31/19 Range/Units 11:47 WBC (3.8-10.6) k/uL MCHC (31.0-37.0) g/dL RDW (11.5-15.5) % Plt Count (150-450) k/uL Neutrophils # (1.3-7.7) k/uL Lymphocytes # (1.0-4.8) k/uL Potassium (3.5-5.1) mmol/L Chloride (98-107) mmol/L Carbon Dioxide (22-30) mmol/L Creatinine (0.66-1.25) mg/dL Glucose (74-99) mg/dL POC Glucose (mg/dL) 141 H (75-99) mg/dL Assessment and Plan Assessment: Assessment: 1 acute pneumoperitoneum secondary to perforation of duodenal ulcer status post treatment. Of duodenal ulcer and repair of incarcerated umbilical hernia 2 advanced COPD and severe pulmonary fibrosis with chronic hypoxic respiratory failure 3 history of rheumatoid arthritis 4 obstructive sleep apnea syndrome not compliant with CPAP. 5 chronic back pain 6 osteoarthritis 7 pseudomonas aeruginosa in the sputum, could be a colonization or could be secondary to pseudomonal pneumonia. Best to continue antibiotics at present since the patient's pulmonary status is rather marginal. 8 acute on chronic hypoxic respiratory failure multifactorial mostly related to his COPD, pulmonary fibrosis, and suspect some component of pneumonia/pseudomonal pneumonia. Plan: The patient was seen and evaluated by Dr. Santos. He is breathing a bit easier today compared to yesterday. Remains on 6 L high flow nasal cannula. Continue to titrate down the FiO2 as tolerated. Continue the current treatment plan. Increase his activity as tolerated. We'll continue to follow. I, the cosigning physician, performed a history & physical examination of the patient. Lungs sounds crackles in the bilateral posterior bases, diminished. Maintaining good O2 saturations in the 90s on 6 L high flow nasal cannula. I discussed the assessment and plan of care with my nurse practitioner, Priscilla Mike. I attest to the above note as dictated by her.
[2019-01-31 16:55] LABS: Glucose,Whole Blood 144 mg/dL (75-99)
--- NOTE | 2019-01-31 18:26 | P.PN ---
Subjective Progress Note Date: 01/31/19 CHIEF COMPLAINT: Perforated duodenal ulcer HISTORY OF PRESENT ILLNESS: The patient is a 68-year-old male status post repair of duodenal ulcer 01/22/2019. In the last 2 days, he has acute rise in his white blood cell count. Recent CT of the abdomen and pelvis show postsurgical changes yesterday. Last 24 hours rise of WBC from 20-30,000. At bedside, patient is lethargic and difficult to arouse. Per discussion with nurse, A-TEAM protocol was initiated. Patient was refused ICU transfer. ROS: No reports of nausea and vomiting. Multiple bowel movements. PHYSICAL EXAM: VITAL SIGNS: Reviewed CONSTITUTIONAL: Well developed and in no acute distress. EYES: Conjuctivae without sclera icterus. Extraocular movements grossly intact. HEAD, EARS, NOSE, THROAT: Moist buccal mucosa. Head is atraumatic, normocephalic. Hears conversational speech. No nasal drainage. NECK: Supple. No thyroidomegaly. RESPIRATORY: Non-labored respirations and equal bilateral excursions. CARDIOVASCULAR: Palpable 2+ radial pulses. Tachycardic. ABDOMEN: Dressing clean dry and intact. No peritonitis. MUSCULOSKELETAL: No gross deformity of the lower extremities noted. No clubbing. No cyanosis. SKIN: Good skin turgor. Well perfused. NEUROLOGIC: Cranial nerves I through XII grossly intact. No focal or l ateralizing signs. PSYCH: Somnolent. Difficult to arouse. CLINCAL LABS: White blood cell count up from 20,000 over 30,000. Additionally CO2 level moderately high over 40. STUDIES: CT of the abdomen and pelvis independent reviewed without pneumoperitoneum. Postsurgical changes identified. REPORT: Radiology report also reviewed without new masses or lesions in the abdomen. ASSESSMENT: 1. Hypercapnia. 2. Perforated duodenal ulcer. 3. New sepsis. PLAN: 1. With acute rise of white blood cell count and negative CT, patient high risk for C. diff colitis which may give similar picture. Stat C. diff assay obtained. 2. He has acute and critical changes, Flagyl started 3. He also has moderate CO2 retention. Recommend repeat labs. With the patient critical presentation included somnolence and sepsis with management, critical care time 32 minutes Objective - Vital Signs Vital signs: Vital Signs Temp 98.2 F 01/31/19 15:00 Pulse 119 H 01/31/19 15:00 Resp 16 01/31/19 15:00 BP 110/72 01/31/19 07:00 Pulse Ox 96 01/31/19 15:00 Intake & Output 01/30/19 01/31/19 01/31/19 18:59 06:59 18:59 Intake Total 1860 1400 Output Total 430 3 400 Balance 1430 -3 1000 Intake: IV 300 200 Fluconazole in NaCl,Iso- 200 100 Osm 200 mg In Saline 1 100ml.bag @ 100 mls/hr IVPB DAILY [facility] Rx#: [id number] Piperacillin-Tazobactam 3 100 100 .375 gm In Sodium Chloride 0.9% 100 ml @ 25 mls/hr IVPB Q8HR [facility] Rx# :[id number] Intake, IV Titration 200 Amount Magnesium Sulfate-D5w Pmx 200 1 gm In Dextrose/Water 1 100ml.bag @ 100 mls/hr IVPB Q1H [facility] Rx#: [id number] Oral 1360 1200 Output: Drainage 30 Right Lower Abdomen 30 Urine 400 400 Urine/Stool Mix 3 Other: Voiding Method Indwelling Catheter Bedside Commode Bedside Commode # Voids 2 2 2 # Bowel Movements 1 1 ABP, PAP, CO, CI - Last Documented Arterial Blood Pressure 146/47 - Labs CBC & Chem 7: 01/31/19 07:33 01/31/19 07:33 Labs: Abnormal Lab Results - Last 24 Hours (Table) 01/30/19 01/31/19 01/31/19 Range/Units 20:22 07:12 07:33 WBC 30.9 H (3.8-10.6) k/uL MCHC 30.9 L (31.0-37.0) g/dL RDW 16.5 H (11.5-15.5) % Plt Count 524 H (150-450) k/uL Neutrophils # 29.3 H (1.3-7.7) k/uL Lymphocytes # 0.6 L (1.0-4.8) k/uL Chloride (98-107) mmol/L Carbon Dioxide (22-30) mmol/L Creatinine (0.66-1.25) mg/dL Glucose (74-99) mg/dL POC Glucose (mg/dL) 191 H 105 H (75-99) mg/dL 01/31/19 01/31/19 01/31/19 Range/Units 07:33 11:47 16:52 WBC (3.8-10.6) k/uL MCHC (31.0-37.0) g/dL RDW (11.5-15.5) % Plt Count (150-450) k/uL Neutrophils # (1.3-7.7) k/uL Lymphocytes # (1.0-4.8) k/uL Chloride 94 L (98-107) mmol/L Carbon Dioxide 41 H* (22-30) mmol/L Creatinine 0.54 L (0.66-1.25) mg/dL Glucose 108 H (74-99) mg/dL POC Glucose (mg/dL) 141 H 144 H (75-99) mg/dL Assessment and Plan (1) Duodenal ulcer, perforated Current Visit: Yes Status: Acute Code(s): K26.5 - CHRONIC OR UNSPECIFIED DUODENAL ULCER WITH PERFORATION SNOMED Code(s): 26636390 (2) Abdominal abscess Current Visit: Yes Status: Acute Code(s): GMW2672 - SNOMED Code(s): 20045916 (3) Bowel perforation Current Visit: Yes Status: Acute Code(s): K63.1 - PERFORATION OF INTESTINE (NONTRAUMATIC) SNOMED Code(s): 27281568 (4) Sepsis Current Visit: No Status: Acute Code(s): A41.9 - SEPSIS, UNSPECIFIED ORGANISM SNOMED Code(s): 23474152
[2019-01-31 19:08] LABS: Anisocytosis Slight; Basophils % (A) 0 %; Eosinophils # (A) 0.1 k/uL (0-0.7); Eosinophils % (A) 0 %; HCT 43.1 % (39.0-53.0); HGB 13.2 gm/dL (13.0-17.5); Hypochromasia Slight; Lymphocytes # (A) 0.9 k/uL (1.0-4.8); Lymphocytes % (A) 3 %; MCH 29.4 pg (25.0-35.0); MCHC 30.6 g/dL (31.0-37.0); Mean Platelet Volume 7.3; Monocytes % (A) 3 %; Neutrophils # (A) 27.6 k/uL (1.3-7.7); Neutrophils % (A) 93 %; Platelet Count 522 k/uL (150-450); RBC 4.49 m/uL (4.30-5.90); RDW 17.1 % (11.5-15.5); WBC 29.7 k/uL (3.8-10.6)
[2019-01-31 19:22] LABS: ALT 42 U/L (21-72); AST 29 U/L (17-59); Albumin 2.7 g/dL (3.5-5.0); Alkaline Phosphatase 75 U/L (38-126); Blood Urea Nitrogen 15 mg/dL (9-20); Calcium 8.5 mg/dL (8.4-10.2); Chloride 94 mmol/L (98-107); Glucose 96 mg/dL (74-99); Potassium 3.6 mmol/L (3.5-5.1); Sodium 139 mmol/L (137-145); Total Bilirubin 0.6 mg/dL (0.2-1.3); Total Protein 5.4 g/dL (6.3-8.2)
[2019-01-31 19:28] LABS: Anion Gap 2 mmol/L
[2019-01-31 19:30] LABS: Carbon Dioxide 43 mmol/L (22-30)
[2019-01-31 20:51] LABS: Glucose,Whole Blood 155 mg/dL (75-99)
[2019-01-31] MEDS: metroNIDAZOLE-NS PMX 500 MG in SALINE 1 100ML.BAG IVPB SCH (21:21)
[2019-02-01] MEDS ORDERED: metroNIDAZOLE-NS PMX 500 MG in SALINE 1 100ML.BAG IVPB SCH
[2019-02-01] MEDS: PIPERACILLIN-TAZOBACTAM 3.375 GM in SODIUM CHLORIDE 0.9% 100 ML IVPB SCH ×4 (00:52→23:10)
[2019-02-01] MEDS: metroNIDAZOLE-NS PMX 500 MG in SALINE 1 100ML.BAG IVPB SCH ×6 (00:52→23:10)
[2019-02-01] MEDS: HEPARIN SODIUM,PORCINE 5,000 UNIT/ML 1 ML VIAL SQ SCH ×4 (00:52→23:10)
[2019-02-01] MEDS: HYDROCORTISONE SUCCINATE 100 MG/2 ML VIAL IV SCH ×4 (00:52→23:11)
[2019-02-01] MEDS: IPRATROPIUM-ALBUTEROL 3 ML NEB INHALATION SCH ×4 (03:11→20:42)
[2019-02-01 07:12] LABS: Glucose,Whole Blood 115 mg/dL (75-99)
[2019-02-01] MEDS: INSULIN ASPART (NovoLOG) 100 UNIT/ML VIAL SQ SCH ×4 (07:26→20:51)
[2019-02-01] MEDS: FLUCONAZOLE 100 MG TAB PO SCH (08:05)
[2019-02-01] MEDS: PANTOPRAZOLE 40 MG/10 ML VIAL IVP SCH (08:05)
[2019-02-01] MEDS: HYDROcodone/APAP 5-325MG 1 EACH TAB PO PRN ×3 (08:05→17:56)
[2019-02-01] MEDS: FUROSEMIDE 20 MG TAB PO SCH ×2 (08:06→15:52)
[2019-02-01] MEDS ORDERED: predniSONE 10 MG TAB PO SCH (09:00)
--- NOTE | 2019-02-01 09:24 | XR ---
EXAMINATION TYPE: XR chest 1V portable DATE OF EXAM: 02/01/2019 HISTORY: shortness of breath. REFERENCE: Previous study dated 01/28/2019. FINDINGS: Lung volumes are prominent. Heart is mildly enlarged. There is worsening right basilar airs pace disease is also left basilar airspace disease. There are small, bilateral effusions. The patient's right internal jugular catheter has been removed. There is some linear scarring in the right upper lobe. Alternatively, this may represent an azygos fi ssure. IMPRESSION: 1. COPD. 2. WORSENING RIGHT BASILAR AIRSPACE DISEASE. 3. CONTINUING LEFT BASILAR AIRSPACE DISEASE. 4. I SUSPECT SMALL, BILATERAL EFFUSIONS. 5. MILD CARDIOMEGALY.
[2019-02-01 09:27] LABS: Blood Urea Nitrogen 17 mg/dL (9-20); Calcium 7.8 mg/dL (8.4-10.2); Chloride 96 mmol/L (98-107); Glucose 114 mg/dL (74-99); Potassium 2.9 mmol/L (3.5-5.1); Sodium 140 mmol/L (137-145)
[2019-02-01 09:31] LABS: Anisocytosis Slight; Basophils % (A) 0 %; Eosinophils % (A) 0 %; HCT 36.5 % (39.0-53.0); HGB 11.3 gm/dL (13.0-17.5); Hypochromasia Slight; Lymphocytes # (A) 0.5 k/uL (1.0-4.8); Lymphocytes % (A) 2 %; MCH 29.7 pg (25.0-35.0); MCV 95.8 fL (80.0-100.0); Mean Platelet Volume 7.5; Monocytes # (A) 0.6 k/uL (0-1.0); Monocytes % (A) 2 %; Neutrophils # (A) 23.8 k/uL (1.3-7.7); Neutrophils % (A) 95 %; Platelet Count 455 k/uL (150-450); RBC 3.81 m/uL (4.30-5.90)
[2019-02-01 09:33] LABS: Anion Gap 0 mmol/L
[2019-02-01] MEDS ORDERED: FUROSEMIDE 10 MG/ML 4 ML VIAL IV STA (09:33)
--- NOTE | 2019-02-01 09:35 | P.PN ---
Subjective Progress Note Date: 02/01/19 Principal diagnosis: Acute pneumoperitoneum secondary to perforated duodenal ulcer 68-year-old male patient came into the emergency department with a one-week history of abdominal pain. He initially went to [facility] emergency department with a CAT scan was done and the patient was told to have diverticulosis without diverticulitis. Over the past week, the patient developed progressive worsening his abdominal discomfort and today came into the emergency department having more pain and the pain was rather diffuse in nature. He had diminished appetite, diminished oral intake and he was having no significant bowel movements. No GI bleeding. Denies having any fever or chills. He was nauseated when he was getting progressively more lethargic and weak and short of breath. CAT scan of the abdomen was done in the emergency department and showed significant inflammatory changes in the epigastric region involving posterior aspect of the proximal transverse colon. There was evidence of pneumoperitoneum around that along with some inflammatory changes as well as some free fluid in the abdomen. The stomach itself appeared to be within normal limits. The patient has long-term history of COPD and pulmonary fibrosis. Based on his pulmonary function test in 2017 he has an FVC of 72% and FEV1 of 46% and he has been steroid dependent for the past few years taking prednisone a daily basis. He has also underlying rheumatoid arthritis and previously he was taking immunosuppression with Humira none for now. His oxygen dependent. Blood work showed a white cell count 16.2 with a hemoglobin of 14.9. Platelet count is at 519. He has a BUN of 27 creatinine of 0.7 and lactic acid was at 1.9 with a troponin being less than 0.01. LFTs are all within normal limits. He is tachycardic with temperature 98.2. He was having sinus tachycardia with a heart rate of 120. He is currently on 5 L of oxygen by nasal cannula with a pulse ox of 90%. The patient will be taken to the operating room. He was seen by the surgical team following that I've advised the patient coming back to the intensive care unit for further evaluation and treatment. He may need to be kept intubated overnight. On 01/26/2019, the patient is postop day #4. The patient is doing well. He is awake and alert. History requiring high flow oxygen at 10 L. He doesn't have much reserve and he desaturates easily. NG tube was removed yesterday and this morning the patient was given some clear liquid diet. Surgical wound site is clean. Output from the TAHMINA drain is minimal in the order of 30 mL over the past 24 hours. Surgical wound site is dry clean and intact. He is passing flatus. No bowel activity as. He remains on IV Zosyn. He is using incentive spirometer. He is on status post hydrocortisone. He is awake and alert. He has pseudomonas aeruginosa in his sputum for which she is covered with IV Zosyn. No other significant events overnight. Patient was reevaluated today on 01/27/2019, remains on high flow nasal cannula 7 L/m, continues to have significantly abnormal chest x-ray with diffuse interstitial lung disease consistent with pulmonary fibrosis, underlying pneumonia is not entirely ruled out. His FiO2 is being titrated down, patient is noted to be short of breath with any activity. His sputum was positive for pseudomonas aeruginosa, remains on Zosyn. All labs were reviewed today, potassium is a bit low at 3.2 being corrected as per protocol. Patient was reevaluated today on 01/28/2019, remains on high flow nasal cannula, 90 L/m, patient is basically about the same, chest x-ray is basically about the same showing bibasilar interstitial lung disease consistent with pulmonary fibrosis. Again underlying pneumonia is not entirely ruled out but felt to be less likely. Patient is hemodynamically stable, in no distress, being treated f or pseudomonas aeruginosa in the sputum, remains on Zosyn. CBC is relatively normal WBC count is 10.5 hemoglobin is 11.5 light was normal except for low potassium being corrected as per protocol. Patient continues to have good urine output. Reevaluated today on 01/29/2019, remains in the ICU, he is presently overflow from selective. Patient remains on 8 L high flow nasal cannula, pulmonary stat us remains marginal. Overall it is better than expected considering his underlying COPD and underlying interstitial lung disease. Patient seems to be recovering slowly. Last chest x-ray showed basically chronic changes of COPD and interstitial lung disease. Underlying pneumonia is definitely not entirely ruled out. Patient had positive Pseudomonas in the sputum and he is being treated as such. Electrolytes are normal except for low potassium being corrected as per protocol. The patient himself denies shortness of breath, denies any pain, he is complaining of significant swelling in his upper and lower extremities, hence I initiated diuretics today. On 01/30/2019 patient seen in follow-up on medical surgical floor. He is awake and alert, in no acute distress, he is on 6 L of oxygen, with a pulse ox of 95- 96%, he is afebrile, hemodynamically stable. Work on his incentive spirometer, achieving about 1000 on the today. This is postop day 8 status post exploratory laparotomy with repair of the perforated duodenal ulcer and repair of the incarcerated umbilical hernia. he is doing well, he was started on some oral Lasix yesterday, for generalized anasarca, and he is in -1869 mL fluid balance over the last 24 hours. Still has quite a bit of swelling in his upper and lower extremities. His lab work has been reviewed, showing white blood cell count of 20.9, hemoglobin of 11.6, serum sodium is 136, potassium is 2.7, this being replaced per protocol, chloride is 95, CO2 39, creatinine of 0.57 and BUN of 13. Patient is tolerating oral intake, he is passing bowel movements. No new chest x-rays today On 02/01/2019 patient seen in follow-up on medical surgical floor. He sitting up in the recliner, in no acute distress, was on 15 L high flow oxygen this morning, and his pulse ox was 88-91%, was encouraged to deep breathe and cough, and oxygen level did come up to 97%, we will start weaning FiO2, encouraged deep breathing and coughing, patient is pulling of 1000 ML on his incentive spirometer, no fever or chills, lung sounds reveal good air entry bilaterally, no significant wheezes or rhonchi, there are bilateral crackles at the bases, but they are limited. We will obtain follow-up chest x-ray today, he is on maintenance dose of oral Lasix at 20 mg twice daily, antibiotic coverage in the form of Flagyl, and Zosyn, there has been no fever, no chills, hemodynamically stable. He remains on stress doses of hydrocortisone, we will start weaning it down, patient is normally on prednisone 10 mg daily for his history of COPD. Tolerating oral diet, no nausea vomiting or diarrhea, mid abdominal incision is intact, tension sutures are intact, bowel sounds are active, surgery is following, CT of abdomen and pelvis showed decrease in fluid accumulation involving the small bowel mesentery, no evidence of any fluid collection, there is a reduction of the umbilical hernia compared to last exam, and stable sigmoid diverticulosis without diverticulitis. It also showed patchy bilateral basilar pulmonary infiltrates and atelectasis and pleural fluid. Objective - Vital Signs Vital signs: Vital Signs Temp 98.5 F 02/01/19 07:00 Pulse 92 02/01/19 08:38 Resp 16 02/01/19 07:27 BP 128/49 02/01/19 07:00 Pulse Ox 91 L 02/01/19 07:00 Intake & Output 01/31/19 02/01/19 02/01/19 18:59 06:59 18:59 Intake Total 1400 200 Output Total 400 50 Balance 1000 150 Intake: IV 200 200 Fluconazole in NaCl,Iso- 100 100 Osm 200 mg In Saline 1 100ml.bag @ 100 mls/hr IVPB DAILY [facility] Rx#: [id number] Piperacillin-Tazobactam 3 100 100 .375 gm In Sodium Chloride 0.9% 100 ml @ 25 mls/hr IVPB Q8HR [facility] Rx# :[id number] Oral 1200 Output: Drainage 50 Right Lower Abdomen 50 Urine 400 Other: Voiding Method Bedside Commode Bedside Commode # Voids 2 1 # Bowel Movements 1 1 ABP, PAP, CO, CI - Last Documented Arterial Blood Pressure 146/47 - Exam GENERAL EXAM: Alert, pleasant, 68-year-old white male, on 15 L of oxygen, comfortable in no apparent distress. HEAD: Normocephalic/atraumatic. EYES: Normal reaction of pupils, equal size. Conjunctiva pink, sclera white. NOSE: Clear with pink turbinates. THROAT: No erythema or exudates. NECK: No masses, no JVD, no thyroid enlargement, no adenopathy. CHEST: No chest wall deformity. Symmetrical expansion. LUNGS: Equal air entry with diminished breath sounds, and basilar rales CVS: Regular rate and rhythm, normal S1 and S2, no gallops, no murmurs, no rubs ABDOMEN: Soft, nontender. No hepatosplenomegaly, normal bowel sounds, no guarding or rigidity. Midabdominal incision is clean dry and intact retention sutures are intact, TAHMINA drain is compressed, draining serosanguineous fluid EXTREMITIES: No clubbing, generalized edema, no cyanosis, 2+ pulses and upper and lower extremities. MUSCULOSKELETAL: Muscle strength and tone normal. SPINE: No scoliosis or deformity SKIN: No rashes CENTRAL NERVOUS SYSTEM: Alert and oriented -3. No focal deficits, tone is normal in all 4 extremities. PSYCHIATRIC: Alert and oriented -3. Appropriate affect. Intact judgment and insight. - Labs CBC & Chem 7: 01/31/19 18:36 01/31/19 18:36 Labs: Abnormal Lab Results - Last 24 Hours (Table) 01/31/19 01/31/19 01/31/19 Range/Units 11:47 16:52 18:36 WBC 29.7 H (3.8-10.6) k/uL MCHC 30.6 L (31.0-37.0) g/dL RDW 17.1 H (11.5-15.5) % Plt Count 522 H (150-450) k/uL Neutrophils # 27.6 H (1.3-7.7) k/uL Lymphocytes # 0.9 L (1.0-4.8) k/uL Chloride (98-107) mmol/L Carbon Dioxide (22-30) mmol/L POC Glucose (mg/dL) 141 H 144 H (75-99) mg/dL Total Protein (6.3-8.2) g/dL Albumin (3.5-5.0) g/dL 01/31/19 01/31/19 02/01/19 Range/Units 18:36 20:48 07:03 WBC (3.8-10.6) k/uL MCHC (31.0-37.0) g/dL RDW (11.5-15.5) % Plt Count (150-450) k/uL Neutrophils # (1.3-7.7) k/uL Lymphocytes # (1.0-4.8) k/uL Chloride 94 L (98-107) mmol/L Carbon Dioxide 43 H* (22-30) mmol/L POC Glucose (mg/dL) 155 H 115 H (75-99) mg/dL Total Protein 5.4 L (6.3-8.2) g/dL Albumin 2.7 L (3.5-5.0) g/dL Assessment and Plan Plan: Assessment: 1 acute pneumoperitoneum secondary to perforation of duodenal ulcer status post treatment. Of duodenal ulcer and repair of incarcerated umbilical hernia postoperative day #8 2 advanced COPD and severe pulmonary fibrosis with chronic hypoxic respiratory failure 3 history of rheumatoid arthritis 4 obstructive sleep apnea syndrome not compliant with CPAP. 5 chronic back pain 6 osteoarthritis 7 pseudomonas aeruginosa in the sputum, could be a colonization or could be secondary to pseudomonal pneumonia. Best to continue antibiotics at present since the patient's pulmonary status is rather marginal. 8 acute on chronic hypoxic respiratory failure multifactorial mostly related to his COPD, pulmonary fibrosis, and suspect some component of pneumonia/pseudomonal pneumonia. Plan: Wean FiO2, we'll give an extra dose of IV Lasix today, accurate I&O's, daily weights, repeat chest x-ray tomorrow, encourage deep breathing and coughing, we will decrease the dose of IV hydrocortisone to 50 mg every 8 hours, continue breathing treatments. Continue to follow. I performed a history & physical examination of the patient and discussed their management with my nurse practitioner, Stella Powers. I reviewed the nurse practitioner's note and agree with the documented findings and plan of care. Lung sounds are positive for diminished breath sounds, with basilar rales. The findings and the impression was discussed with the patient. I attest to the documentation by the nurse practitioner. Time with Patient: Less than 30
[2019-02-01 09:41] LABS: Carbon Dioxide 44 mmol/L (22-30)
[2019-02-01 11:27] LABS: Glucose,Whole Blood 151 mg/dL (75-99)
[2019-02-01] MEDS: HYDROmorphone 1 MG/ML 1 ML SYRINGE IVP PRN ×4 (11:27→23:11)
--- NOTE | 2019-02-01 12:26 | P.PN ---
Subjective Progress Note Date: 01/31/19 Principal diagnosis: Acute pneumoperitoneum secondary to perforated duodenal ulcer 01/31/2019 patient is seen and evaluated in roon in follow-up on the regular medical floor. He is awake and alert in no acute distress. Currently sitting up at the beds daniel. Currently on 6 L high flow nasal cannula. He utilizes 3.5 L at home. He is afebrile. Hemodynamically stable. White count 30.9. Hemoglobin 13.0. Creatinine 0.54. Remains on Zosyn, Solu-Cortef, DuoNeb inhalations. Objective - Vital Signs Vital signs: Vital Signs Temp 97.4 F L 01/31/19 01:06 Pulse 100 01/31/19 03:45 Resp 20 01/31/19 01:06 BP 154/85 01/31/19 01:06 Pulse Ox 93 L 01/31/19 01:06 Intake & Output 01/30/19 01/31/19 01/31/19 18:59 06:59 18:59 Intake Total 1860 Output Total 430 3 Balance 1430 -3 Intake: IV 300 Fluconazole in NaCl,Iso- 200 Osm 200 mg In Saline 1 100ml.bag @ 100 mls/hr IVPB DAILY [facility] Rx#: [id number] Piperacillin-Tazobactam 3 100 .375 gm In Sodium Chloride 0.9% 100 ml @ 25 mls/hr IVPB Q8HR [facility] Rx# :[id number] Intake, IV Titration 200 Amount Magnesium Sulfate-D5w Pmx 200 1 gm In Dextrose/Water 1 100ml.bag @ 100 mls/hr IVPB Q1H [facility] Rx#: [id number] Oral 1360 Output: Drainage 30 Right Lower Abdomen 30 Urine 400 Urine/Stool Mix 3 Other: Voiding Method Indwelling Catheter Bedside Commode # Voids 2 2 # Bowel Movements 1 ABP, PAP, CO, CI - Last Documented Arterial Blood Pressure 146/47 - Exam GENERAL EXAM: Alert, pleasant, 68-year-old male, on 6 L of oxygen, comfortable in no apparent distress. HEAD: Normocephalic/atraumatic. EYES: Normal reaction of pupils, equal size. Conjunctiva pink, sclera white. NOSE: Clear with pink turbinates. THROAT: No erythema or exudates. NECK: No masses, no JVD, no thyroid enlargement, no adenopathy. CHEST: No chest wall deformity. Symmetrical expansion. LUNGS: Equal air entry with dementia breath sounds, and basilar rales CVS: Regular rate and rhythm, normal S1 and S2, no gallops, no murmurs, no rubs ABDOMEN: Soft, nontender. No hepatosplenomegaly, normal bowel sounds, no guarding or rigidity. EXTREMITIES: No clubbing, generalized edema, no cyanosis, 2+ pulses and upper and lower extremities. MUSCULOSKELETAL: Muscle strength and tone normal. - Labs CBC & Chem 7: 02/01/19 08:10 02/01/19 08:10 Labs: Abnormal Lab Results - Last 24 Hours (Table) 01/30/19 01/30/19 01/30/19 Range/Units 07:26 07:26 11:07 WBC 20.9 H (3.8-10.6) k/uL RBC 3.94 L (4.30-5.90) m/uL Hgb 11.6 L (13.0-17.5) gm/dL Hct 36.8 L (39.0-53.0) % RDW 16.1 H (11.5-15.5) % Plt Count 484 H (150-450) k/uL Neutrophils # 19.5 H (1.3-7.7) k/uL Lymphocytes # 0.6 L (1.0-4.8) k/uL Sodium 136 L (137-145) mmol/L Potassium 2.7 L* (3.5-5.1) mmol/L Chloride 95 L (98-107) mmol/L Carbon Dioxide 39 H (22-30) mmol/L Creatinine 0.57 L (0.66-1.25) mg/dL Glucose 109 H (74-99) mg/dL POC Glucose (mg/dL) 154 H (75-99) mg/dL Calcium 7.9 L (8.4-10.2) mg/dL 01/30/19 01/30/19 01/30/19 Range/Units 15:17 17:08 20:22 WBC (3.8-10.6) k/uL RBC (4.30-5.90) m/uL Hgb (13.0-17.5) gm/dL Hct (39.0-53.0) % RDW (11.5-15.5) % Plt Count (150-450) k/uL Neutrophils # (1.3-7.7) k/uL Lymphocytes # (1.0-4.8) k/uL Sodium (137-145) mmol/L Potassium 3.0 L (3.5-5.1) mmol/L Chloride (98-107) mmol/L Carbon Dioxide (22-30) mmol/L Creatinine (0.66-1.25) mg/dL Glucose (74-99) mg/dL POC Glucose (mg/dL) 154 H 191 H (75-99) mg/dL Calcium (8.4-10.2) mg/dL 01/31/19 Range/Units 07:12 WBC (3.8-10.6) k/uL RBC (4.30-5.90) m/uL Hgb (13.0-17.5) gm/dL Hct (39.0-53.0) % RDW (11.5-15.5) % Plt Count (150-450) k/uL Neutrophils # (1.3-7.7) k/uL Lymphocytes # (1.0-4.8) k/uL Sodium (137-145) mmol/L Potassium (3.5-5.1) mmol/L Chloride (98-107) mmol/L Carbon Dioxide (22-30) mmol/L Creatinine (0.66-1.25) mg/dL Glucose (74-99) mg/dL POC Glucose (mg/dL) 105 H (75-99) mg/dL Calcium (8.4-10.2) mg/dL Assessment and Plan Plan: 1 acute pneumoperitoneum secondary to perforation of duodenal ulcer status post treatment. Of duodenal ulcer and repair of incarcerated umbilical hernia 2 advanced COPD and severe pulmonary fibrosis with chronic hypoxic respiratory failure 3 history of rheumatoid arthritis 4 obstructive sleep apnea syndrome not compliant with CPAP. 5 chronic back pain 6 osteoarthritis 7 pseudomonas aeruginosa in the sputum, could be a colonization or could be secondary to pseudomonal pneumonia. Best to continue antibiotics at present since the patient's pulmonary status is rather marginal. 8 acute on chronic hypoxic respiratory failure multifactorial mostly related to his COPD, pulmonary fibrosis, and suspect some component of pneumonia/pseudomonal pneumonia. Time with Patient: Greater than 30
--- NOTE | 2019-02-01 14:11 | P.PN ---
Subjective Progress Note Date: 02/01/19 CHIEF COMPLAINT: Perforated duodenal ulcer HISTORY OF PRESENT ILLNESS: The patient is a 68-year-old male status post repair of duodenal ulcer 01/22/2019. Yesterday, he had an acute event with altered sensorium, somnolence requiring A-team evaluation. Today he is awake, alert, tolerating diet. "Feel much better." White blood cell count improving after adding Flagyl yesterday for C. diff/colitis. Additionally, C. diff assay was not ran as stool was not liquid per discussion with nurse ROS: No reports of nausea and vomiting. Multiple bowel movements. No active dyspnea on exertion. PHYSICAL EXAM: VITAL SIGNS: Reviewed CONSTITUTIONAL: Well developed and in no acute distress. EYES: Conjuctivae without sclera icterus. Extraocular movements grossly intact. HEAD, EARS, NOSE, THROAT: Moist buccal mucosa. Head is atraumatic, normocephalic. Hears conversational speech. No nasal drainage. NECK: Supple. No thyroidomegaly. RESPIRATORY: Non-labored respirations and equal bilateral excursions. CARDIOVASCULAR: Palpable 2+ radial pulses. Regular rate. Regular rhythm. ABDOMEN: Dressing clean dry and intact. No peritonitis. MUSCULOSKELETAL: No gross deformity of the lower extremities noted. No clubbing. No cyanosis. SKIN: Good skin turgor. Well perfused. NEUROLOGIC: Cranial nerves I through XII grossly intact. No focal or lateralizing signs. PSYCH: Somnolent. Difficult to arouse. CLINCAL LABS: White blood cell count from over 30,000-25,000 after start of Flagyl. ASSESSMENT: 1. Hypercapnia. 2. Perforated duodenal ulcer. 3. New sepsis. 4. Hypercarbia PLAN: 1. Leukocytosis improved after initiation of Flagyl. Recommend repeat WBC count 2. Management of hypercarbia by pulmonology group Objective - Vital Signs Vital signs: Vital Signs Temp 98.5 F 02/01/19 07:00 Pulse 97 02/01/19 13:30 Resp 16 02/01/19 07:27 BP 128/49 02/01/19 07:00 Pulse Ox 96 02/01/19 10:00 Intake & Output 01/31/19 02/01/19 02/01/19 18:59 06:59 18:59 Intake Total 1400 200 Output Total 400 50 Balance 1000 150 Weight 76.5 kg Intake: IV 200 200 Fluconazole in NaCl,Iso- 100 100 Osm 200 mg In Saline 1 100ml.bag @ 100 mls/hr IVPB DAILY [facility] Rx#: [id number] Piperacillin-Tazobactam 3 100 100 .375 gm In Sodium Chloride 0.9% 100 ml @ 25 mls/hr IVPB Q8HR [facility] Rx# :[id number] Oral 1200 Output: Drainage 50 Right Lower Abdomen 50 Urine 400 Other: Voiding Method Bedside Commode Bedside Commode # Voids 2 1 # Bowel Movements 1 1 ABP, PAP, CO, CI - Last Documented Arterial Blood Pressure 146/47 - Labs CBC & Chem 7: 02/01/19 08:10 02/01/19 08:10 Labs: Abnormal Lab Results - Last 24 Hours (Table) 01/31/19 01/31/19 01/31/19 Range/Units 16:52 18:36 18:36 WBC 29.7 H (3.8-10.6) k/uL RBC (4.30-5.90) m/uL Hgb (13.0-17.5) gm/dL Hct (39.0-53.0) % MCHC 30.6 L (31.0-37.0) g/dL RDW 17.1 H (11.5-15.5) % Plt Count 522 H (150-450) k/uL Neutrophils # 27.6 H (1.3-7.7) k/uL Lymphocytes # 0.9 L (1.0-4.8) k/uL Potassium (3.5-5.1) mmol/L Chloride 94 L (98-107) mmol/L Carbon Dioxide 43 H* (22-30) mmol/L Creatinine (0.66-1.25) mg/dL Glucose (74-99) mg/dL POC Glucose (mg/dL) 144 H (75-99) mg/dL Calcium (8.4-10.2) mg/dL Total Protein 5.4 L (6.3-8.2) g/dL Albumin 2.7 L (3.5-5.0) g/dL 01/31/19 02/01/19 02/01/19 Range/Units 20:48 07:03 08:10 WBC 25.0 H (3.8-10.6) k/uL RBC 3.81 L (4.30-5.90) m/uL Hgb 11.3 L (13.0-17.5) gm/dL Hct 36.5 L (39.0-53.0) % MCHC (31.0-37.0) g/dL RDW 17.0 H (11.5-15.5) % Plt Count 455 H (150-450) k/uL Neutrophils # 23.8 H (1.3-7.7) k/uL Lymphocytes # 0.5 L (1.0-4.8) k/uL Potassium (3.5-5.1) mmol/L Chloride (98-107) mmol/L Carbon Dioxide (22-30) mmol/L Creatinine (0.66-1.25) mg/dL Glucose (74-99) mg/dL POC Glucose (mg/dL) 155 H 115 H (75-99) mg/dL Calcium (8.4-10.2) mg/dL Total Protein (6.3-8.2) g/dL Albumin (3.5-5.0) g/dL 02/01/19 02/01/19 Range/Units 08:10 11:17 WBC (3.8-10.6) k/uL RBC (4.30-5.90) m/uL Hgb (13.0-17.5) gm/dL Hct (39.0-53.0) % MCHC (31.0-37.0) g/dL RDW (11.5-15.5) % Plt Count (150-450) k/uL Neutrophils # (1.3-7.7) k/uL Lymphocytes # (1.0-4.8) k/uL Potassium 2.9 L (3.5-5.1) mmol/L Chloride 96 L (98-107) mmol/L Carbon Dioxide 44 H* (22-30) mmol/L Creatinine 0.57 L (0.66-1.25) mg/dL Glucose 114 H (74-99) mg/dL POC Glucose (mg/dL) 151 H (75-99) mg/dL Calcium 7.8 L (8.4-10.2) mg/dL Total Protein (6.3-8.2) g/dL Albumin (3.5-5.0) g/dL Assessment and Plan (1) Duodenal ulcer, perforated Current Visit: Yes Status: Acute Code(s): K26.5 - CHRONIC OR UNSPECIFIED DUODENAL ULCER WITH PERFORATION SNOMED Code(s): 33434187 (2) Abdominal abscess Current Visit: Yes Status: Acute Code(s): AWJ5313 - SNOMED Code(s): 25858283 (3) Bowel perforation Current Visit: Yes Status: Acute Code(s): K63.1 - PERFORATION OF INTESTINE (NONTRAUMATIC) SNOMED Code(s): 76292421 (4) Sepsis Current Visit: No Status: Acute Code(s): A41.9 - SEPSIS, UNSPECIFIED ORGANISM SNOMED Code(s): 69819624
--- NOTE | 2019-02-01 14:35 | P.PN ---
Subjective Progress Note Date: 02/01/19 Principal diagnosis: Acute pneumoperitoneum secondary to perforated duodenal ulcer 01/31/2019 patient is seen and evaluated in roon in follow-up on the regular medical floor. He is awake and alert in no acute distress. Currently sitting up at the beds daniel. Currently on 6 L high flow nasal cannula. He utilizes 3.5 L at home. He is afebrile. Hemodynamically stable. White count 30.9. Hemoglobin 13.0. Creatinine 0.54. Remains on Zosyn, Solu-Cortef, DuoNeb inhalations. 02/01/2019 patient seen in follow-up on medical surgical floor. He sitting up in the recliner, in no acute distress, was on 15 L high flow oxygen this morning, and his pulse ox was 88-91%, was encouraged to deep breathe and cough, and oxygen level did come up to 97%, we will start weaning FiO2, encouraged deep breathing and coughing, patient is pulling of 1000 ML on his incentive spirometer, no fever or chills, lung sounds reveal good air entry bilaterally, no significant wheezes or rhonchi, there are bilateral crackles at the bases, but they are limited. We will obtain follow-up chest x-ray today, he is on maintenance dose of oral Lasix at 20 mg twice daily, antibiotic coverage in the form of Flagyl, and Zosyn, there has been no fever, no chills, hemodynamically stable. He remains on stress doses of hydrocortisone, we will start weaning it down, patient is normally on prednisone 10 mg daily for his history of COPD. Tolerating oral diet, no nausea vomiting or diarrhea, mid abdominal incision is intact, tension sutures are intact, bowel sounds are active, surgery is following, CT of abdomen and pelvis showed decrease in fluid accumulation involving the small bowel mesentery, no evidence of any fluid collection, there is a reduction of the umbilical hernia compared to last exam, and stable sigmoid diverticulosis without diverticulitis. It also showed patchy bilateral basilar pulmonary infiltrates and atelectasis and pleural fluid. Objective - Vital Signs Vital signs: Vital Signs Temp 98.5 F 02/01/19 07:00 Pulse 92 02/01/19 08:50 Resp 16 02/01/19 07:27 BP 128/49 02/01/19 07:00 Pulse Ox 96 02/01/19 10:00 Intake & Output 01/31/19 02/01/19 02/01/19 18:59 06:59 18:59 Intake Total 1400 200 Output Total 400 50 Balance 1000 150 Weight 76.5 kg Intake: IV 200 200 Fluconazole in NaCl,Iso- 100 100 Osm 200 mg In Saline 1 100ml.bag @ 100 mls/hr IVPB DAILY [facility] Rx#: [id number] Piperacillin-Tazobactam 3 100 100 .375 gm In Sodium Chloride 0.9% 100 ml @ 25 mls/hr IVPB Q8HR [facility] Rx# :[id number] Oral 1200 Output: Drainage 50 Right Lower Abdomen 50 Urine 400 Other: Voiding Method Bedside Commode Bedside Commode # Voids 2 1 # Bowel Movements 1 1 ABP, PAP, CO, CI - Last Documented Arterial Blood Pressure 146/47 - Exam GENERAL EXAM: Alert, pleasant, 68-year-old male, on 6 L of oxygen, comfortable in no apparent distress. HEAD: Normocephalic/atraumatic. EYES: Normal reaction of pupils, equal size. Conjunctiva pink, sclera white. NOSE: Clear with pink turbinates. THROAT: No erythema or exudates. NECK: No masses, no JVD, no thyroid enlargement, no adenopathy. CHEST: No chest wall deformity. Symmetrical expansion. LUNGS: Equal air entry with dementia breath sounds, and basilar rales CVS: Regular rate and rhythm, normal S1 and S2, no gallops, no murmurs, no rubs ABDOMEN: Soft, nontender. No hepatosplenomegaly, normal bowel sounds, no guarding or rigidity. EXTREMITIES: No clubbing, generalized edema, no cyanosis, 2+ pulses and upper and lower extremities. MUSCULOSKELETAL: Muscle strength and tone normal. - Labs CBC & Chem 7: 02/01/19 08:10 02/01/19 08:10 Labs: Abnormal Lab Results - Last 24 Hours (Table) 01/31/19 01/31/19 01/31/19 Range/Units 16:52 18:36 18:36 WBC 29.7 H (3.8-10.6) k/uL RBC (4.30-5.90) m/uL Hgb (13.0-17.5) gm/dL Hct (39.0-53.0) % MCHC 30.6 L (31.0-37.0) g/dL RDW 17.1 H (11.5-15.5) % Plt Count 522 H (150-450) k/uL Neutrophils # 27.6 H (1.3-7.7) k/uL Lymphocytes # 0.9 L (1.0-4.8) k/uL Potassium (3.5-5.1) mmol/L Chloride 94 L (98-107) mmol/L Carbon Dioxide 43 H* (22-30) mmol/L Creatinine (0.66-1.25) mg/dL Glucose (74-99) mg/dL POC Glucose (mg/dL) 144 H (75-99) mg/dL Calcium (8.4-10.2) mg/dL Total Protein 5.4 L (6.3-8.2) g/dL Albumin 2.7 L (3.5-5.0) g/dL 01/31/19 02/01/19 02/01/19 Range/Units 20:48 07:03 08:10 WBC 25.0 H (3.8-10.6) k/uL RBC 3.81 L (4.30-5.90) m/uL Hgb 11.3 L (13.0-17.5) gm/dL Hct 36.5 L (39.0-53.0) % MCHC (31.0-37.0) g/dL RDW 17.0 H (11.5-15.5) % Plt Count 455 H (150-450) k/uL Neutrophils # 23.8 H (1.3-7.7) k/uL Lymphocytes # 0.5 L (1.0-4.8) k/uL Potassium (3.5-5.1) mmol/L Chloride (98-107) mmol/L Carbon Dioxide (22-30) mmol/L Creatinine (0.66-1.25) mg/dL Glucose (74-99) mg/dL POC Glucose (mg/dL) 155 H 115 H (75-99) mg/dL Calcium (8.4-10.2) mg/dL Total Protein (6.3-8.2) g/dL Albumin (3.5-5.0) g/dL 02/01/19 02/01/19 Range/Units 08:10 11:17 WBC (3.8-10.6) k/uL RBC (4.30-5.90) m/uL Hgb (13.0-17.5) gm/dL Hct (39.0-53.0) % MCHC (31.0-37.0) g/dL RDW (11.5-15.5) % Plt Count (150-450) k/uL Neutrophils # (1.3-7.7) k/uL Lymphocytes # (1.0-4.8) k/uL Potassium 2.9 L (3.5-5.1) mmol/L Chloride 96 L (98-107) mmol/L Carbon Dioxide 44 H* (22-30) mmol/L Creatinine 0.57 L (0.66-1.25) mg/dL Glucose 114 H (74-99) mg/dL POC Glucose (mg/dL) 151 H (75-99) mg/dL Calcium 7.8 L (8.4-10.2) mg/dL Total Protein (6.3-8.2) g/dL Albumin (3.5-5.0) g/dL Assessment and Plan Plan: 1 acute pneumoperitoneum secondary to perforation of duodenal ulcer status post treatment. Of duodenal ulcer and repair of incarcerated umbilical hernia 2 advanced COPD and severe pulmonary fibrosis with chronic hypoxic respiratory f ailure 3 history of rheumatoid arthritis 4 obstructive sleep apnea syndrome not compliant with CPAP. 5 chronic back pain 6 osteoarthritis 7 pseudomonas aeruginosa in the sputum, could be a colonization or could be secondary to pseudomonal pneumonia. Best to continue antibiotics at present since the patient's pulmonary status is rather marginal. 8 acute on chronic hypoxic respiratory failure multifactorial mostly related to his COPD, pulmonary fibrosis, and suspect some component of pneumo torie/pseudomonal pneumonia.
[2019-02-01 16:52] LABS: Glucose,Whole Blood 134 mg/dL (75-99)
[2019-02-01] MEDS ORDERED: POTASSIUM BICARBONATE/CIT AC 20 MEQ TABLET.EFF PO ONE (18:02)
[2019-02-01 20:49] LABS: Glucose,Whole Blood 163 mg/dL (75-99)
--- NOTE | 2019-02-01 22:20 | P.PN ---
Progress Note - Text Progress Note Date: 02/01/19 PROGRESS NOTE DATE OF SERVICE: 02/01/2019 REASON FOR FOLLOWUP: 1-Secondary peritonitis from perforated peptic ulcer disease. 2-leukocytosis likely steroid effect INTERVAL HISTORY: The patient remains to be afebrile. The patient has been breathing comfortably. The patient did have occasional cough but no sputum production the patient denies abdominal pain. No nausea, no vomiting or any diarrhea reported by the nursing staff PHYSICAL EXAMINATION: Blood pressure 119/79 with a pulse of 104, temperature 98. He is 93% on 6 L high-flow oxygen. General description is an elderly male up in the bed in no distress. RESPIRATORY SYSTEM: Unlabored breathing with decreased breath sounds at the base. No wheeze. HEART: S1, S2. Regular rate and rhythm. ABDOMEN: Soft. No tenderness. LABS: . White count down to 25,000 from yesterday of 29,000. BUN of 13, creatinine 0.57. DIAGNOSTIC IMPRESSION AND PLAN: Patient with secondary peritonitis from perforated peptic ulcer disease. Patient is status post laparotomy and repair of the same. The patient did have a repeat CT of abdomen and pelvis completed on 01/30/2019 did not show evidence of abscess. The patient white count elevation is more likely related to steroid that the patient has been receiving With improvement in his white count today as his steroid dose has been cut down We'll continue to monitor the patient closely continue with the Zosyn and Diflucan
[2019-02-02] MEDS: HYDROcodone/APAP 5-325MG 1 EACH TAB PO PRN (02:59)
[2019-02-02] MEDS: IPRATROPIUM-ALBUTEROL 3 ML NEB INHALATION SCH ×4 (05:05→20:32)
[2019-02-02] MEDS: HYDROmorphone 1 MG/ML 1 ML SYRINGE IVP PRN ×8 (05:31→23:50)
[2019-02-02] MEDS: metroNIDAZOLE-NS PMX 500 MG in SALINE 1 100ML.BAG IVPB SCH ×2 (05:32→12:18)
--- NOTE | 2019-02-02 07:12 | XR ---
EXAMINATION TYPE: XR chest 1V portable DATE OF EXAM: 02/02/2019 COMPARISON: 02/01/2019 HISTORY: Shortness of breath. Follow up exam. History of COPD. TECHNIQUE: Single frontal view of the chest is obtained. FINDINGS: There is peripheral basilar predominant reticulation suggesting underlying fibrosis. Azygo us lobe and fissure are incidentally noted. Bibasilar airspace disease is similar to the prior. There are trace pleural effusions blunting the costophrenic angles. No acute osseous pathology is seen. Ca rdia mediastinal silhouette is stable and enlarged. IMPRESSION: Stable trace pleural effusions and bibasilar airspace disease favored to represent pneum onia given their absence on the exam of 01/22/2019 with underlying pulmonary fibrosis suspected.
[2019-02-02 07:13] LABS: Glucose,Whole Blood 115 mg/dL (75-99)
[2019-02-02] MEDS: INSULIN ASPART (NovoLOG) 100 UNIT/ML VIAL SQ SCH ×4 (07:51→21:10)
[2019-02-02] MEDS: PANTOPRAZOLE 40 MG/10 ML VIAL IVP SCH (07:58)
[2019-02-02] MEDS: FUROSEMIDE 20 MG TAB PO SCH (07:59)
[2019-02-02] MEDS: HEPARIN SODIUM,PORCINE 5,000 UNIT/ML 1 ML VIAL SQ SCH ×3 (07:59→23:49)
[2019-02-02] MEDS: FLUCONAZOLE 100 MG TAB PO SCH (07:59)
[2019-02-02] MEDS: HYDROCORTISONE SUCCINATE 100 MG/2 ML VIAL IV SCH ×3 (08:00→23:49)
[2019-02-02] MEDS: PIPERACILLIN-TAZOBACTAM 3.375 GM in SODIUM CHLORIDE 0.9% 100 ML IVPB SCH ×3 (08:00→23:50)
--- NOTE | 2019-02-02 10:50 | P.PN ---
<Ann Marie Xie - Last Filed: 02/02/19 10:40> Subjective Progress Note Date: 02/02/19 CHIEF COMPLAINT: Perforated duodenal ulcer HISTORY OF PRESENT ILLNESS: Patient seen and examined this morning. He is sitting up in the chair. Patient reports his abdominal pain is controlled. Denies nausea or vomiting. Tolerating PO intake but has decreased appetite. Passing flatus. Had a bowel movement this morning. Patient remains on 8L high flow cannula. He is receiving Lasix and Solu-cortef. Chest x-ray this morning reveals stable trace pleural effusions and bibasilar airspace disease favored to represent pneumonia. Pulmonary and infectious disease are following. PHYSICAL EXAM: VITAL SIGNS: Reviewed. GENERAL: Well-developed in no acute distress. HEENT: No sclera icterus. Extraocular movements grossly intact. Moist buccal mucosa. Head is atraumatic, normocephalic. ABDOMEN: Soft. Nondistended. Dressing clean dry intact-changed yesterday per nursing. TAHMINA with serosanguinous drainage. NEUROLOGIC: Alert and oriented. Cranial nerves II through XII grossly intact. ASSESSMENT: 1. Perforated duodenal ulcer, status post exploratory laparotomy with repair of perforated duodenal ulcer and repair of incarcerated umbilical hernia PLAN: 1. Continue current diet 2. CBC and BMP 3. Wound care. Dressing to be changed tomorrow per nursing. 4. Incentive spirometry 5. Activity as tolerated. 6. Continue antibiotics. Monitor WBC. 7. Pulmonary and infectious disease following. Nurse practitioner note has been reviewed by physician. Signing provider agrees with the documented findings, assessment, and plan of care. Objective - Vital Signs Vital signs: Vital Signs Temp 97.9 F 02/02/19 07:09 Pulse 98 02/02/19 07:09 Resp 18 02/02/19 08:00 BP 141/68 02/02/19 07:09 Pulse Ox 91 L 02/02/19 07:09 Intake & Output 02/01/19 02/02/19 02/02/19 18:59 06:59 18:59 Output Total 20 10 Balance -20 -10 Weight 76.5 kg Output: Drainage 20 10 Right Lower Abdomen 20 10 Other: Voiding Method Bedside Commode ABP, PAP, CO, CI - Last Documented Arterial Blood Pressure 146/47 - Labs CBC & Chem 7: 02/01/19 08:10 02/01/19 08:10 Labs: Abnormal Lab Results - Last 24 Hours (Table) 02/01/19 02/01/19 02/01/19 Range/Units 11:17 16:47 20:36 POC Glucose (mg/dL) 151 H 134 H 163 H (75-99) mg/dL 02/02/19 Range/Units 07:10 POC Glucose (mg/dL) 115 H (75-99) mg/dL <Chucky Levi - Last Filed: 02/02/19 13:26> Subjective As above. Patient's white blood cell count remains elevated. Patient states his abdominal pain is minimal at this time. Chest x-ray shows possible pneumonia. Continue pulmonary optimization. Continue chopped diet. Keep TAHMINA drain 1-2 days longer. Continue local wound care. We'll follow. Objective - Vital Signs Vital signs: Vital Signs Temp 97.9 F 02/02/19 07:09 Pulse 97 02/02/19 11:29 Resp 18 02/02/19 08:00 BP 141/68 02/02/19 07:09 Pulse Ox 92 L 02/02/19 11:20 Intake & Output 02/01/19 02/02/19 02/02/19 18:59 06:59 18:59 Output Total 20 10 Balance -20 -10 Weight 76.5 kg 76.5 kg Output: Drainage 20 10 Right Lower Abdomen 20 10 Other: Voiding Method Bedside Commode ABP, PAP, CO, CI - Last Documented Arterial Blood Pressure 146/47 - Labs CBC & Chem 7: 02/02/19 11:10 02/02/19 11:10 Labs: Abnormal Lab Results - Last 24 Hours (Table) 02/01/19 02/01/19 02/02/19 Range/Units 16:47 20:36 07:10 WBC (3.8-10.6) k/uL RBC (4.30-5.90) m/uL Hgb (13.0-17.5) gm/dL MCHC (31.0-37.0) g/dL RDW (11.5-15.5) % Plt Count (150-450) k/uL Neutrophils # (1.3-7.7) k/uL Lymphocytes # (1.0-4.8) k/uL Potassium (3.5-5.1) mmol/L Chloride (98-107) mmol/L Carbon Dioxide (22-30) mmol/L Creatinine (0.66-1.25) mg/dL Glucose (74-99) mg/dL POC Glucose (mg/dL) 134 H 163 H 115 H (75-99) mg/dL Calcium (8.4-10.2) mg/dL 02/02/19 02/02/19 02/02/19 Range/Units 11:10 11:10 11:37 WBC 22.1 H (3.8-10.6) k/uL RBC 4.09 L (4.30-5.90) m/uL Hgb 12.0 L (13.0-17.5) gm/dL MCHC 30.6 L (31.0-37.0) g/dL RDW 16.9 H (11.5-15.5) % Plt Count 493 H (150-450) k/uL Neutrophils # 20.7 H (1.3-7.7) k/uL Lymphocytes # 0.5 L (1.0-4.8) k/uL Potassium 2.8 L (3.5-5.1) mmol/L Chloride 89 L (98-107) mmol/L Carbon Dioxide 45 H* (22-30) mmol/L Creatinine 0.57 L (0.66-1.25) mg/dL Glucose 116 H (74-99) mg/dL POC Glucose (mg/dL) 117 H (75-99) mg/dL Calcium 7.7 L (8.4-10.2) mg/dL Assessment and Plan (1) Bowel perforation Current Visit: Yes Status: Acute Code(s): K63.1 - PERFORATION OF INTESTINE (NONTRAUMATIC) SNOMED Code(s): 71189007
[2019-02-02 11:18] VITALS: BMI 25.6
[2019-02-02 11:35] LABS: Blood Urea Nitrogen 16 mg/dL (9-20); Calcium 7.7 mg/dL (8.4-10.2); Chloride 89 mmol/L (98-107); Glucose 116 mg/dL (74-99); Potassium 2.8 mmol/L (3.5-5.1); Sodium 137 mmol/L (137-145)
[2019-02-02 11:39] LABS: Glucose,Whole Blood 117 mg/dL (75-99)
--- NOTE | 2019-02-02 11:41 | XR ---
EXAMINATION TYPE: XR chest 1V DATE OF EXAM: 02/02/2019 COMPARISON: 02/02/2019 HISTORY: Shortness of breath TECHNIQUE: Single frontal view of the chest is obtained. FINDINGS: Stable exam in comparison to the prior earlier on the same day with particular basilar pre dominant fibrosis, trace pleural effusions (right greater than left) incidentally noted azygous lobe and fissure, old healed left rib fracture deformities, diffuse osseous demineralization, and enlarged cardiac mediastinal silhouette. Patient's chin obscures the lung apices on this exam. IMPRESSION: Unchanged exam in comparison the prior of 02/02/2019 at 6:25 AM with bibasilar opacities a nd trace pleural effusions favored to represent pneumonia superimposed upon pulmonary fibrosis.
[2019-02-02 11:42] LABS: Anion Gap 3 mmol/L
[2019-02-02 11:43] LABS: Anisocytosis Slight; Basophils % (A) 0 %; Eosinophils # (A) 0.1 k/uL (0-0.7); Eosinophils % (A) 1 %; HCT 39.1 % (39.0-53.0); Hypochromasia Slight; Lymphocytes # (A) 0.5 k/uL (1.0-4.8); Lymphocytes % (A) 2 %; MCH 29.3 pg (25.0-35.0); MCHC 30.6 g/dL (31.0-37.0); MCV 95.7 fL (80.0-100.0); Mean Platelet Volume 7.2; Monocytes # (A) 0.7 k/uL (0-1.0); Monocytes % (A) 3 %; Neutrophils # (A) 20.7 k/uL (1.3-7.7); Neutrophils % (A) 93 %; Platelet Count 493 k/uL (150-450); RBC 4.09 m/uL (4.30-5.90); RDW 16.9 % (11.5-15.5); WBC 22.1 k/uL (3.8-10.6)
[2019-02-02 11:53] LABS: Carbon Dioxide 45 mmol/L (22-30)
[2019-02-02] MEDS: POTASSIUM CHLORIDE ER 20 MEQ TAB.ER PO SCH ×4 (12:16→17:41)
--- NOTE | 2019-02-02 13:06 | P.PN ---
Subjective Progress Note Date: 02/02/19 Principal diagnosis: Acute pneumoperitoneum secondary to perforated duodenal ulcer 68-year-old male patient came into the emergency department with a one-week history of abdominal pain. He initially went to [facility] emergency department with a CAT scan was done and the patient was told to have diverticulosis without diverticulitis. Over the past week, the patient developed progressive worsening his abdominal discomfort and today came into the emergency department having more pain and the pain was rather diffuse in nature. He had diminished appetite, diminished oral intake and he was having no significant bowel movements. No GI bleeding. Denies having any fever or chills. He was nauseated when he was getting progressively more lethargic and weak and short of breath. CAT scan of the abdomen was done in the emergency department and showed significant inflammatory changes in the epigastric region involving posterior aspect of the proximal transverse colon. There was evidence of pneumoperitoneum around that along with some inflammatory changes as well as some free fluid in the abdomen. The stomach itself appeared to be within normal limits. The patient has long-term history of COPD and pulmonary fibrosis. Based on his pulmonary function test in 2017 he has an FVC of 72% and FEV1 of 46% and he has been steroid dependent for the past few years taking prednisone a daily basis. He has also underlying rheumatoid arthritis and previously he was taking immunosuppression with Humira none for now. His oxygen dependent. Blood work showed a white cell count 16.2 with a hemoglobin of 14.9. Platelet count is at 519. He has a BUN of 27 creatinine of 0.7 and lactic acid was at 1.9 with a troponin being less than 0.01. LFTs are all within normal limits. He is tachycardic with temperature 98.2. He was having sinus tachycardia with a heart rate of 120. He is currently on 5 L of oxygen by nasal cannula with a pulse ox of 90%. The patient will be taken to the operating room. He was seen by the surgical team following that I've advised the patient coming back to the intensive care unit for further evaluation and treatment. He may need to be kept intubated overnight. On 01/26/2019, the patient is postop day #4. The patient is doing well. He is awake and alert. History requiring high flow oxygen at 10 L. He doesn't have much reserve and he desaturates easily. NG tube was removed yesterday and this morning the patient was given some clear liquid diet. Surgical wound site is clean. Output from the TAHMINA drain is minimal in the order of 30 mL over the past 24 hours. Surgical wound site is dry clean and intact. He is passing flatus. No bowel activity as. He remains on IV Zosyn. He is using incentive spirometer. He is on status post hydrocortisone. He is awake and alert. He has pseudomonas aeruginosa in his sputum for which she is covered with IV Zosyn. No other significant events overnight. Patient was reevaluated today on 01/27/2019, remains on high flow nasal cannula 7 L/m, continues to have significantly abnormal chest x-ray with diffuse interstitial lung disease consistent with pulmonary fibrosis, underlying pneumonia is not entirely ruled out. His FiO2 is being titrated down, patient is noted to be short of breath with any activity. His sputum was positive for pseudomonas aeruginosa, remains on Zosyn. All labs were reviewed today, potassium is a bit low at 3.2 being corrected as per protocol. Patient was reevaluated today on 01/28/2019, remains on high flow nasal cannula, 90 L/m, patient is basically about the same, chest x-ray is basically about the same showing bibasilar interstitial lung disease consistent with pulmonary fibrosis. Again underlying pneumonia is not entirely ruled out but felt to be less likely. Patient is hemodynamically stable, in no distress, being treated f or pseudomonas aeruginosa in the sputum, remains on Zosyn. CBC is relatively normal WBC count is 10.5 hemoglobin is 11.5 light was normal except for low potassium being corrected as per protocol. Patient continues to have good urine output. Reevaluated today on 01/29/2019, remains in the ICU, he is presently overflow from selective. Patient remains on 8 L high flow nasal cannula, pulmonary stat us remains marginal. Overall it is better than expected considering his underlying COPD and underlying interstitial lung disease. Patient seems to be recovering slowly. Last chest x-ray showed basically chronic changes of COPD and interstitial lung disease. Underlying pneumonia is definitely not entirely ruled out. Patient had positive Pseudomonas in the sputum and he is being treated as such. Electrolytes are normal except for low potassium being corrected as per protocol. The patient himself denies shortness of breath, denies any pain, he is complaining of significant swelling in his upper and lower extremities, hence I initiated diuretics today. On 01/30/2019 patient seen in follow-up on medical surgical floor. He is awake and alert, in no acute distress, he is on 6 L of oxygen, with a pulse ox of 95- 96%, he is afebrile, hemodynamically stable. Work on his incentive spirometer, achieving about 1000 on the today. This is postop day 8 status post exploratory laparotomy with repair of the perforated duodenal ulcer and repair of the incarcerated umbilical hernia. he is doing well, he was started on some oral Lasix yesterday, for generalized anasarca, and he is in -1869 mL fluid balance over the last 24 hours. Still has quite a bit of swelling in his upper and lower extremities. His lab work has been reviewed, showing white blood cell count of 20.9, hemoglobin of 11.6, serum sodium is 136, potassium is 2.7, this being replaced per protocol, chloride is 95, CO2 39, creatinine of 0.57 and BUN of 13. Patient is tolerating oral intake, he is passing bowel movements. No new chest x-rays today On 02/01/2019 patient seen in follow-up on medical surgical floor. He sitting up in the recliner, in no acute distress, was on 15 L high flow oxygen this morning, and his pulse ox was 88-91%, was encouraged to deep breathe and cough, and oxygen level did come up to 97%, we will start weaning FiO2, encouraged deep breathing and coughing, patient is pulling of 1000 ML on his incentive spirometer, no fever or chills, lung sounds reveal good air entry bilaterally, no significant wheezes or rhonchi, there are bilateral crackles at the bases, but they are limited. We will obtain follow-up chest x-ray today, he is on maintenance dose of oral Lasix at 20 mg twice daily, antibiotic coverage in the form of Flagyl, and Zosyn, there has been no fever, no chills, hemodynamically stable. He remains on stress doses of hydrocortisone, we will start weaning it down, patient is normally on prednisone 10 mg daily for his history of COPD. Tolerating oral diet, no nausea vomiting or diarrhea, mid abdominal incision is intact, tension sutures are intact, bowel sounds are active, surgery is following, CT of abdomen and pelvis showed decrease in fluid accumulation involving the small bowel mesentery, no evidence of any fluid collection, there is a reduction of the umbilical hernia compared to last exam, and stable sigmoid diverticulosis without diverticulitis. It also showed patchy bilateral basilar pulmonary infiltrates and atelectasis and pleural fluid. On 02/02/2090 patient seen in follow-up on medical surgical floor. He is awake and alert, in no acute distress, currently down to 8 L, with a pulse ox of 92%, he is afebrile, hemodynamically stable, lung sounds reveal coarse basilar crackles over posterior lower lobes. No fever or chills, today's labs have been reviewed, white blood cell count is trending down, down to 22.1, hemoglobin is 12.0, sodium is 137, potassium is 2.8, chloride is 89, CO2 25, BUN is 16 creatinine 0.57. Today's chest x-ray shows bibasilar opacities and trace pleural effusions. He is working on his incentive spirometry. I&O's are difficult to estimate as the patient is voiding, The weight is actually up 0.5 kg. And patient still has quite significant amount of generalized edema. Objective - Vital Signs Vital signs: Vital Signs Temp 97.9 F 02/02/19 07:09 Pulse 97 02/02/19 11:29 Resp 18 02/02/19 08:00 BP 141/68 02/02/19 07:09 Pulse Ox 92 L 02/02/19 11:20 Intake & Output 02/01/19 02/02/19 02/02/19 18:59 06:59 18:59 Output Total 20 10 Balance -20 -10 Weight 76.5 kg 76.5 kg Output: Drainage 20 10 Right Lower Abdomen 20 10 Other: Voiding Method Bedside Commode ABP, PAP, CO, CI - Last Documented Arterial Blood Pressure 146/47 - Exam GENERAL EXAM: Alert, pleasant, 68-year-old white male, on 8 L of oxygen, comfortable in no apparent distress. HEAD: Normocephalic/atraumatic. EYES: Normal reaction of pupils, equal size. Conjunctiva pink, sclera white. NOSE: Clear with pink turbinates. THROAT: No erythema or exudates. NECK: No masses, no JVD, no thyroid enlargement, no adenopathy. CHEST: No chest wall deformity. Symmetrical expansion. LUNGS: Equal air entry with diminished breath sounds, and basilar rales CVS: Regular rate and rhythm, normal S1 and S2, no gallops, no murmurs, no rubs ABDOMEN: Soft, nontender. No hepatosplenomegaly, normal bowel sounds, no guarding or rigidity. Midabdominal incision is clean dry and intact retention sutures are intact, TAHMINA drain is compressed, draining serosanguineous fluid EXTREMITIES: No clubbing, generalized edema, no cyanosis, 2+ pulses and upper and lower extremities. MUSCULOSKELETAL: Muscle strength and tone normal. SPINE: No scoliosis or deformity SKIN: No rashes CENTRAL NERVOUS SYSTEM: Alert and oriented -3. No focal deficits, tone is normal in all 4 extremities. PSYCHIATRIC: Alert and oriented -3. Appropriate affect. Intact judgment and insight. - Labs CBC & Chem 7: 02/02/19 11:10 02/02/19 11:10 Labs: Abnormal Lab Results - Last 24 Hours (Table) 02/01/19 02/01/19 02/02/19 Range/Units 16:47 20:36 07:10 WBC (3.8-10.6) k/uL RBC (4.30-5.90) m/uL Hgb (13.0-17.5) gm/dL MCHC (31.0-37.0) g/dL RDW (11.5-15.5) % Plt Count (150-450) k/uL Neutrophils # (1.3-7.7) k/uL Lymphocytes # (1.0-4.8) k/uL Potassium (3.5-5.1) mmol/L Chloride (98-107) mmol/L Carbon Dioxide (22-30) mmol/L Creatinine (0.66-1.25) mg/dL Glucose (74-99) mg/dL POC Glucose (mg/dL) 134 H 163 H 115 H (75-99) mg/dL Calcium (8.4-10.2) mg/dL 02/02/19 02/02/19 02/02/19 Range/Units 11:10 11:10 11:37 WBC 22.1 H (3.8-10.6) k/uL RBC 4.09 L (4.30-5.90) m/uL Hgb 12.0 L (13.0-17.5) gm/dL MCHC 30.6 L (31.0-37.0) g/dL RDW 16.9 H (11.5-15.5) % Plt Count 493 H (150-450) k/uL Neutrophils # 20.7 H (1.3-7.7) k/uL Lymphocytes # 0.5 L (1.0-4.8) k/uL Potassium 2.8 L (3.5-5.1) mmol/L Chloride 89 L (98-107) mmol/L Carbon Dioxide 45 H* (22-30) mmol/L Creatinine 0.57 L (0.66-1.25) mg/dL Glucose 116 H (74-99) mg/dL POC Glucose (mg/dL) 117 H (75-99) mg/dL Calcium 7.7 L (8.4-10.2) mg/dL Assessment and Plan Plan: Assessment: 1 acute pneumoperitoneum secondary to perforation of duodenal ulcer status post treatment. Of duodenal ulcer and repair of incarcerated umbilical hernia postoperative day #9 2 advanced COPD and severe pulmonary fibrosis with chronic hypoxic respiratory failure 3 history of rheumatoid arthritis 4 obstructive sleep apnea syndrome not compliant with CPAP. 5 chronic back pain 6 osteoarthritis 7 pseudomonas aeruginosa in the sputum, could be a colonization or could be s econdary to pseudomonal pneumonia. Best to continue antibiotics at present since the patient's pulmonary status is rather marginal. 8 acute on chronic hypoxic respiratory failure multifactorial mostly related to his COPD, pulmonary fibrosis, and suspect some component of pneumonia/pseudomonal pneumonia. Plan: Today's x-ray has been reviewed, and shows stable bibasilar airspace disease, and bilateral pleural effusions, patient still has significant generalized edema, anasarca, we will switch the oral Lasix to IV Lasix, acute I know's, daily weights, continue with current antibiotic coverage, wean FiO2, aggressive pulmonary toileting. We'll continue to follow. Repeat chest x-ray in the [facility] I performed a history & physical examination of the patient and discussed their management with my nurse practitioner, Stella Powers. I reviewed the nurse practitioner's note and agree with the documented findings and plan of care. Lung sounds are positive for diminished breath sounds, with basilar rales. The findings and the impression was discussed with the patient. I attest to the d ocumentation by the nurse practitioner. Time with Patient: Less than 30
--- NOTE | 2019-02-02 13:29 | P.PN ---
Subjective Acute pneumoperitoneum secondary to perforated duodenal ulcer 01/31/2019 patient is seen and evaluated in roon in follow-up on the regular medical floor. He is awake and alert in no acute distress. Currently sitting up at the bedside. Currently on 6 L high flow nasal cannula. He utilizes 3.5 L at home. He is afebrile. Hemodynamically stable. White count 30.9. Hemoglobin 13.0. Creatinine 0.54. Remains on Zosyn, Solu-Cortef, DuoNeb inhalations. 02/01/2019 patient seen in follow-up on medical surgical floor. He sitting up in the recliner, in no acute distress, was on 15 L high flow oxygen this morning, and his pulse ox was 88-91%, was encouraged to deep breathe and cough, and oxygen level did come up to 97%, we will start weaning FiO2, encouraged deep breathing and coughing, patient is pulling of 1000 ML on his incentive spirometer, no fever or chills, lung sounds reveal good air entry bilaterally, no significant wheezes or rhonchi, there are bilateral crackles at the bases, but they are limited. We will obtain follow-up chest x-ray today, he is on maintenance dose of oral Lasix at 20 mg twice daily, antibiotic coverage in the form of Flagyl, and Zosyn, there has been no fever, no chills, hemodynamically stable. He remains on stress doses of hydrocortisone, we will start weaning it down, patient is normally on prednisone 10 mg daily for his history of COPD. To lerating oral diet, no nausea vomiting or diarrhea, mid abdominal incision is intact, tension sutures are intact, bowel sounds are active, surgery is following, CT of abdomen and pelvis showed decrease in fluid accumulation involving the small bowel mesentery, no evidence of any fluid collection, there is a reduction of the umbilical hernia compared to last exam, and stable sigmoid diverticulosis without diverticulitis. It also showed patchy bilateral basilar pulmonary infiltrates and atelectasis and pleural fluid. 02/02/2019 Patient is presently on 98 L of oxygen saturating at 92%. Does have bibasilar crackles on exam. Patient does appear to have advanced pulmonary fibrosis use in half liters of oxygen does have COPD as well. Patient's overall prognosis is not great same thing was discussed with the patient and talked about the comfort care down the line if he continues to get readmitted and the explain to him that the his pulmonary condition is incurable. After this discussion, patient asked for different position. Patient did or his bowel does have bowel sounds. Constitutional: Denied any fatigue denied any fever. Cardio vascular: denied any chest pain, palpitations Gastrointestinal denied any nausea vomiting Pulmonary: Shortness of breath is better Neurologic denied any new focal deficits All inpatient medications were reviewed and appropriate changes in these m edications as dictated in the interval history and assessment and plan. Objective - Vital Signs Vital signs: Vital Signs Temp 97.9 F 02/02/19 07:09 Pulse 97 02/02/19 11:29 Resp 18 02/02/19 08:00 BP 141/68 02/02/19 07:09 Pulse Ox 92 L 02/02/19 11:20 Intake & Output 02/01/19 02/02/19 02/02/19 18:59 06:59 18:59 Output Total 20 10 Balance -20 -10 Weight 76.5 kg 76.5 kg Output: Drainage 20 10 Right Lower Abdomen 20 10 Other: Voiding Method Bedside Commode ABP, PAP, CO, CI - Last Documented Arterial Blood Pressure 146/47 - Exam PHYSICAL EXAMINATION: GENERAL: The patient is alert and oriented x3, not in any acute distress. Obese, does have anasarca edema for both upper and lower left HEENT: Pupils are round and equally reacting to light. EOMI. No scleral icterus. No conjunctival pallor. Normocephalic, atraumatic. No pharyngeal erythema. No thyromegaly. CARDIOVASCULAR: S1 and S2 present. No murmurs, rubs, or gallops. PULMONARY: Chest is clear to auscultation, no wheezing or crackles. ABDOMEN: Does have bowel sounds surgical site areas are clean MUSCULOSKELETAL: No joint swelling or deformity. EXTREMITIES: No cyanosis, clubbing, does have edema of both upper and lower limbs. NEUROLOGICAL: Gross neurological examination did not reveal any focal deficits. SKIN: No rashes. - Labs CBC & Chem 7: 02/02/19 11:10 02/02/19 11:10 Labs: Abnormal Lab Results - Last 24 Hours (Table) 02/01/19 02/01/19 02/02/19 Range/Units 16:47 20:36 07:10 WBC (3.8-10.6) k/uL RBC (4.30-5.90) m/uL Hgb (13.0-17.5) gm/dL MCHC (31.0-37.0) g/dL RDW (11.5-15.5) % Plt Count (150-450) k/uL Neutrophils # (1.3-7.7) k/uL Lymphocytes # (1.0-4.8) k/uL Potassium (3.5-5.1) mmol/L Chloride (98-107) mmol/L Carbon Dioxide (22-30) mmol/L Creatinine (0.66-1.25) mg/dL Glucose (74-99) mg/dL POC Glucose (mg/dL) 134 H 163 H 115 H (75-99) mg/dL Calcium (8.4-10.2) mg/dL 02/02/19 02/02/19 02/02/19 Range/Units 11:10 11:10 11:37 WBC 22.1 H (3.8-10.6) k/uL RBC 4.09 L (4.30-5.90) m/uL Hgb 12.0 L (13.0-17.5) gm/dL MCHC 30.6 L (31.0-37.0) g/dL RDW 16.9 H (11.5-15.5) % Plt Count 493 H (150-450) k/uL Neutrophils # 20.7 H (1.3-7.7) k/uL Lymphocytes # 0.5 L (1.0-4.8) k/uL Potassium 2.8 L (3.5-5.1) mmol/L Chloride 89 L (98-107) mmol/L Carbon Dioxide 45 H* (22-30) mmol/L Creatinine 0.57 L (0.66-1.25) mg/dL Glucose 116 H (74-99) mg/dL POC Glucose (mg/dL) 117 H (75-99) mg/dL Calcium 7.7 L (8.4-10.2) mg/dL Assessment and Plan Plan: 1 acute pneumoperitoneum secondary to perforation of duodenal ulcer status post treatment. Of duodenal ulcer and repair of incarcerated umbilical hernia . Patient is presently on Zosyn and metronidazole and infectious disease is managing these. Patient does have pseudomonas in the sputum which is pansensitive Zosyn is basically for intra-abdominal pathogens and the pseudomonas as well. 2 advanced COPD and severe pulmonary fibrosis with chronic hypoxic respiratory failure, presently on 8 L of oxygen patient does have acute respiratory failure from there is patient does have chronic hypoxic respiratory failure and uses 3 and half liters of oxygen at home 3 history of rheumatoid arthritis 4 obstructive sleep apnea syndrome not compliant with CPAP. 5 chronic back pain 6 osteoarthritis 7 pseudomonas aeruginosa in the sputum, could be a colonization or could be secondary to pseudomonal pneumonia. Best to continue antibiotics 8 acute on chronic hypoxic respiratory failure multifactorial mostly related to his COPD, pulmonary fibrosis, and suspect some component of pneumonia/ pseudomonal pneumonia. Overall prognosis is poor
[2019-02-02] MEDS: FUROSEMIDE 10 MG/ML 4 ML VIAL IV SCH ×2 (15:39→23:49)
[2019-02-02 17:08] LABS: Glucose,Whole Blood 157 mg/dL (75-99)
[2019-02-02] MEDS: metroNIDAZOLE 500 MG TAB PO SCH ×2 (17:41→21:10)
--- NOTE | 2019-02-02 19:40 | PN ---
PROGRESS NOTE DATE OF SERVICE: 02/02/2019. REASON FOR FOLLOWUP: 1. Secondary peritonitis from perforated peptic ulcer diseased. 2. Rash on the back area. 3. Leukocytosis. INTERVAL HISTORY: The patient is currently afebrile. The patient has been breathing comfortably. Denies having any chest pain. Did have some cough. No nausea, vomiting. No abdominal pain. The patient did have a developed a rash on upper back area. Mostly vesicular, did have some itching to it and wanted to scratch it. No rash on any other part of the body reported. PHYSICAL EXAMINATION: Blood pressure is 157/71 with a pulse of 94, temperature of 98.1. He is 98% on 8 L high-flow oxygen. General description is an elderly male up in the chair in no distress. Respiratory system: Unlabored breathing, decreased intensity of breath sounds. HEART: S1, S2. Regular rate and rhythm. Abdomen is soft, no tenderness. Examination of the backside did have a visible rash both sides of the midline with no evidence of cellulitis. LABS: Hemoglobin is 12, white count 2.1 with a BUN of 16, creatinine 0.57. DIAGNOSTIC IMPRESSION/PLAN: 1. Patient with secondary peritonitis from a perforated for repair of the same. Currently covered with Zosyn to continue, finish therapy with oral antibiotics. 2. Elevated white count more likely steroid effect, showing downward trend. 3. Rash on the back, to keep the area dry and off the pressure. No need for any specific lotion or cream. Discussed with the RN and the family. Questions were answered. MMODL / IJN: [id number] /
[2019-02-02 19:46] LABS: Glucose,Whole Blood 147 mg/dL (75-99)
[2019-02-03] MEDS: IPRATROPIUM-ALBUTEROL 3 ML NEB INHALATION SCH ×4 (00:47→21:11)
[2019-02-03] MEDS: HYDROmorphone 1 MG/ML 1 ML SYRINGE IVP PRN ×2 (03:41→08:11)
[2019-02-03 07:48] LABS: Glucose,Whole Blood 146 mg/dL (75-99)
[2019-02-03] MEDS: HEPARIN SODIUM,PORCINE 5,000 UNIT/ML 1 ML VIAL SQ SCH ×3 (08:01→23:55)
[2019-02-03] MEDS: HYDROCORTISONE SUCCINATE 100 MG/2 ML VIAL IV SCH ×3 (08:01→23:56)
[2019-02-03] MEDS: metroNIDAZOLE 500 MG TAB PO SCH ×4 (08:02→21:22)
[2019-02-03] MEDS: PIPERACILLIN-TAZOBACTAM 3.375 GM in SODIUM CHLORIDE 0.9% 100 ML IVPB SCH ×3 (08:02→23:56)
[2019-02-03] MEDS: PANTOPRAZOLE 40 MG/10 ML VIAL IVP SCH (08:02)
[2019-02-03] MEDS: FLUCONAZOLE 100 MG TAB PO SCH (08:02)
[2019-02-03] MEDS: FUROSEMIDE 10 MG/ML 4 ML VIAL IV SCH ×3 (08:02→23:55)
[2019-02-03] MEDS: INSULIN ASPART (NovoLOG) 100 UNIT/ML VIAL SQ SCH ×4 (08:03→21:16)
[2019-02-03 08:15] LABS: Blood Urea Nitrogen 16 mg/dL (9-20); Calcium 7.8 mg/dL (8.4-10.2); Chloride 88 mmol/L (98-107); Glucose 164 mg/dL (74-99); Sodium 138 mmol/L (137-145)
[2019-02-03 08:17] LABS: Anisocytosis Slight; Basophils % (A) 0 %; Eosinophils # (A) 0.1 k/uL (0-0.7); Eosinophils % (A) 0 %; HGB 11.7 gm/dL (13.0-17.5); Lymphocytes # (A) 0.7 k/uL (1.0-4.8); Lymphocytes % (A) 4 %; MCH 29.3 pg (25.0-35.0); MCHC 30.8 g/dL (31.0-37.0); MCV 95.1 fL (80.0-100.0); Mean Platelet Volume 7.6; Monocytes # (A) 0.9 k/uL (0-1.0); Monocytes % (A) 5 %; Neutrophils # (A) 17.6 k/uL (1.3-7.7); Neutrophils % (A) 91 %; Platelet Count 540 k/uL (150-450); RDW 17.1 % (11.5-15.5); WBC 19.4 k/uL (3.8-10.6)
[2019-02-03 08:25] LABS: Anion Gap 3 mmol/L
[2019-02-03 08:27] LABS: Carbon Dioxide 47 mmol/L (22-30); Potassium 2.7 mmol/L (3.5-5.1)
[2019-02-03] MEDS ORDERED: POTASSIUM CHLORIDE ER 20 MEQ TAB.ER PO SCH (09:00)
[2019-02-03] MEDS ORDERED: Potassium Replacement Protocol 1 EACH MISC MISCELLANE PRN (09:51)
[2019-02-03] MEDS: POTASSIUM CHLORIDE ER 20 MEQ TAB.ER PO SCH ×5 (10:01→23:55)
[2019-02-03] MEDS ORDERED: HYDROmorphone 0.5 MG/0.5 ML SYRINGE IVP PRN (10:09)
--- NOTE | 2019-02-03 10:45 | XR ---
EXAMINATION TYPE: XR chest 1V portable DATE OF EXAM: 02/03/2019 COMPARISON: Prior chest x-ray 02/02/2019 HISTORY: Follow-up, history COPD, abnormal chest x-ray TECHNIQUE: Single frontal view of the chest is obtained. FINDINGS: Pleural parenchymal changes are similar to prior exam. Azygos lobe noted incidentally. Hea rt size is likely stable. Prominent lung volumes are noted. Aorta is dense. Old left-sided rib fractu re suspected, mid left clavicular fracture uncertain age. IMPRESSION: Possible underlying interstitial lung disease, difficult to exclude basilar airspace dis ease versus atelectasis or scarring.
--- NOTE | 2019-02-03 11:24 | P.PN ---
Subjective Progress Note Date: 02/03/19 Principal diagnosis: Acute pneumoperitoneum secondary to perforated duodenal ulcer 68-year-old male patient came into the emergency department with a one-week history of abdominal pain. He initially went to [facility] emergency department with a CAT scan was done and the patient was told to have diverticulosis without diverticulitis. Over the past week, the patient developed progressive worsening his abdominal discomfort and today came into the emergency department having more pain and the pain was rather diffuse in nature. He had diminished appetite, diminished oral intake and he was having no significant bowel movements. No GI bleeding. Denies having any fever or chills. He was nauseated when he was getting progressively more lethargic and weak and short of breath. CAT scan of the abdomen was done in the emergency department and showed significant inflammatory changes in the epigastric region involving posterior aspect of the proximal transverse colon. There was evidence of pneumoperitoneum around that along with some inflammatory changes as well as some free fluid in the abdomen. The stomach itself appeared to be within normal limits. The patient has long-term history of COPD and pulmonary fibrosis. Based on his pulmonary function test in 2017 he has an FVC of 72% and FEV1 of 46% and he has been steroid dependent for the past few years taking prednisone a daily basis. He has also underlying rheumatoid arthritis and previously he was taking immunosuppression with Humira none for now. His oxygen dependent. Blood work showed a white cell count 16.2 with a hemoglobin of 14.9. Platelet count is at 519. He has a BUN of 27 creatinine of 0.7 and lactic acid was at 1.9 with a troponin being less than 0.01. LFTs are all within normal limits. He is tachycardic with temperature 98.2. He was having sinus tachycardia with a heart rate of 120. He is currently on 5 L of oxygen by nasal cannula with a pulse ox of 90%. The patient will be taken to the operating room. He was seen by the surgical team following that I've advised the patient coming back to the intensive care unit for further evaluation and treatment. He may need to be kept intubated overnight. On 01/26/2019, the patient is postop day #4. The patient is doing well. He is awake and alert. History requiring high flow oxygen at 10 L. He doesn't have much reserve and he desaturates easily. NG tube was removed yesterday and this morning the patient was given some clear liquid diet. Surgical wound site is clean. Output from the TAHMINA drain is minimal in the order of 30 mL over the past 24 hours. Surgical wound site is dry clean and intact. He is passing flatus. No bowel activity as. He remains on IV Zosyn. He is using incentive spirometer. He is on status post hydrocortisone. He is awake and alert. He has pseudomonas aeruginosa in his sputum for which she is covered with IV Zosyn. No other significant events overnight. Patient was reevaluated today on 01/27/2019, remains on high flow nasal cannula 7 L/m, continues to have significantly abnormal chest x-ray with diffuse interstitial lung disease consistent with pulmonary fibrosis, underlying pneumonia is not entirely ruled out. His FiO2 is being titrated down, patient is noted to be short of breath with any activity. His sputum was positive for pseudomonas aeruginosa, remains on Zosyn. All labs were reviewed today, potassium is a bit low at 3.2 being corrected as per protocol. Patient was reevaluated today on 01/28/2019, remains on high flow nasal cannula, 90 L/m, patient is basically about the same, chest x-ray is basically about the same showing bibasilar interstitial lung disease consistent with pulmonary fibrosis. Again underlying pneumonia is not entirely ruled out but felt to be less likely. Patient is hemodynamically stable, in no distress, being treated f or pseudomonas aeruginosa in the sputum, remains on Zosyn. CBC is relatively normal WBC count is 10.5 hemoglobin is 11.5 light was normal except for low potassium being corrected as per protocol. Patient continues to have good urine output. Reevaluated today on 01/29/2019, remains in the ICU, he is presently overflow from selective. Patient remains on 8 L high flow nasal cannula, pulmonary stat us remains marginal. Overall it is better than expected considering his underlying COPD and underlying interstitial lung disease. Patient seems to be recovering slowly. Last chest x-ray showed basically chronic changes of COPD and interstitial lung disease. Underlying pneumonia is definitely not entirely ruled out. Patient had positive Pseudomonas in the sputum and he is being treated as such. Electrolytes are normal except for low potassium being corrected as per protocol. The patient himself denies shortness of breath, denies any pain, he is complaining of significant swelling in his upper and lower extremities, hence I initiated diuretics today. On 01/30/2019 patient seen in follow-up on medical surgical floor. He is awake and alert, in no acute distress, he is on 6 L of oxygen, with a pulse ox of 95- 96%, he is afebrile, hemodynamically stable. Work on his incentive spirometer, achieving about 1000 on the today. This is postop day 8 status post exploratory laparotomy with repair of the perforated duodenal ulcer and repair of the incarcerated umbilical hernia. he is doing well, he was started on some oral Lasix yesterday, for generalized anasarca, and he is in -1869 mL fluid balance over the last 24 hours. Still has quite a bit of swelling in his upper and lower extremities. His lab work has been reviewed, showing white blood cell count of 20.9, hemoglobin of 11.6, serum sodium is 136, potassium is 2.7, this being replaced per protocol, chloride is 95, CO2 39, creatinine of 0.57 and BUN of 13. Patient is tolerating oral intake, he is passing bowel movements. No new chest x-rays today The patient is seen today 01/31/2019 in follow-up on the regular medical floor. He is awake and alert in no acute distress. Currently sitting up at the bedside. Currently on 6 L high flow nasal cannula. He utilizes 3.5 L at home. He is afebrile. Hemodynamically stable. White count 30.9. Hemoglobin 13.0. Creatinine 0.54. Remains on Zosyn, Solu-Cortef, DuoNeb inhalations. On 02/01/2019 patient seen in follow-up on medical surgical floor. He sitting up in the recliner, in no acute distress, was on 15 L high flow oxygen this morning, and his pulse ox was 88-91%, was encouraged to deep breathe and cough, and oxygen level did come up to 97%, we will start weaning FiO2, encouraged deep breathing and coughing, patient is pulling of 1000 ML on his incentive spirometer, no fever or chills, lung sounds reveal good air entry bilaterally, no significant wheezes or rhonchi, there are bilateral crackles at the bases, but they are limited. We will obtain follow-up chest x-ray today, he is on maintenance dose of oral Lasix at 20 mg twice daily, antibiotic coverage in the form of Flagyl, and Zosyn, there has been no fever, no chills, hemodynamically stable. He remains on stress doses of hydrocortisone, we will start weaning it down, patient is normally on prednisone 10 mg daily for his history of COPD. Tolerating oral diet, no nausea vomiting or diarrhea, mid abdominal incision is intact, tension sutures are intact, bowel sounds are active, surgery is following, CT of abdomen and pelvis showed decrease in fluid accumulation involving the small bowel mesentery, no evidence of any fluid collection, there is a reduction of the umbilical hernia compared to last exam, and stable sigmoid diverticulosis without diverticulitis. It also showed patchy bilateral basilar pulmonary infiltrates and atelectasis and pleural fluid. On 02/02/2090 patient seen in follow-up on medical surgical floor. He is awake and alert, in no acute distress, currently down to 8 L, with a pulse ox of 92%, he is afebrile, hemodynamically stable, lung sounds reveal coarse basilar crackles over posterior lower lobes. No fever or chills, today's labs have been reviewed, white blood cell count is trending down, down to 22.1, hemoglobin is 12.0, sodium is 137, potassium is 2.8, chloride is 89, CO2 25, BUN is 16 creatinine 0.57. Today's chest x-ray shows bibasilar opacities and trace pleural effusions. He is working on his incentive spirometry. I&O's are difficult to estimate as the patient is voiding, The weight is actually up 0.5 kg. And patient still has quite significant amount of generalized edema. The patient is seen today 02/03/2019 in follow-up on the regular medical floor. He is currently sitting up in a chair at the bedside. Awake and alert in no acute distress. He denies any worsening shortness of breath, cough or congestion. 6 L high flow nasal cannula with O2 saturations in the low 90s. He is afebrile. Hemodynamically stable. Chest x-ray reveals suspected underlying interstitial lung disease. Difficult to exclude basilar airspace disease versus atelectasis. He continues to work well with the incentive spirometer. Sputum was positive for pseudomonas aeruginosa. He is currently on Zosyn. He also remains on IV diuretics. White count 19.4. Hemoglobin 11.7. Potassium 2.7. Bicarb 47. Creatinine 0.55. Objective - Vital Signs Vital signs: Vital Signs Temp 98.4 F 02/03/19 07:46 Pulse 88 02/03/19 09:26 Resp 18 02/03/19 08:00 BP 139/74 02/03/19 07:46 Pulse Ox 92 L 02/03/19 07:46 Intake & Output 02/02/19 02/03/19 02/03/19 18:59 06:59 18:59 Intake Total 800 250 150 Output Total 10 15 Balance 790 235 150 Weight 76.5 kg 74.9 kg Intake: IV 100 Piperacillin-Tazobactam 3 100 .375 gm In Sodium Chloride 0.9% 100 ml @ 25 mls/hr IVPB Q8HR [facility] Rx# :[id number] Oral 800 150 150 Output: Drainage 10 15 Right Lower Abdomen 10 15 Other: Voiding Method Bedside Commode Urinal # Voids 2 # Bowel Movements 1 ABP, PAP, CO, CI - Last Documented Arterial Blood Pressure 146/47 - Exam GENERAL EXAM: Alert, pleasant, 68-year-old male, on 6 L of oxygen, comfortable in no apparent distress. HEAD: Normocephalic/atraumatic. EYES: Normal reaction of pupils, equal size. Conjunctiva pink, sclera white. NOSE: Clear with pink turbinates. THROAT: No erythema or exudates. NECK: No masses, no JVD, no thyroid enlargement, no adenopathy. CHEST: Symmetric with equal expansion LUNGS: Equal air entry with diminished breath sounds, and basilar rales CVS: Regular rate and rhythm, normal S1 and S2, no gallops, no murmurs, no rubs ABDOMEN: Soft, nontender. No hepatosplenomegaly, normal bowel sounds, no guarding or rigidity. EXTREMITIES: No clubbing, generalized edema, no cyanosis, 2+ pulses and upper and lower extremities. MUSCULOSKELETAL: Muscle strength and tone normal. SPINE: No scoliosis or deformity SKIN: No rashes CENTRAL NERVOUS SYSTEM: No focal deficits, tone is normal in all 4 extremities. PSYCHIATRIC: Alert and oriented -3. Appropriate affect. Intact judgment and insight. - Labs CBC & Chem 7: 02/03/19 07:12 02/03/19 07:12 Labs: Abnormal Lab Results - Last 24 Hours (Table) 02/02/19 02/02/19 02/02/19 Range/Units 11:10 11:10 11:37 WBC 22.1 H (3.8-10.6) k/uL RBC 4.09 L (4.30-5.90) m/uL Hgb 12.0 L (13.0-17.5) gm/dL Hct (39.0-53.0) % MCHC 30.6 L (31.0-37.0) g/dL RDW 16.9 H (11.5-15.5) % Plt Count 493 H (150-450) k/uL Neutrophils # 20.7 H (1.3-7.7) k/uL Lymphocytes # 0.5 L (1.0-4.8) k/uL Potassium 2.8 L (3.5-5.1) mmol/L Chloride 89 L (98-107) mmol/L Carbon Dioxide 45 H* (22-30) mmol/L Creatinine 0.57 L (0.66-1.25) mg/dL Glucose 116 H (74-99) mg/dL POC Glucose (mg/dL) 117 H (75-99) mg/dL Calcium 7.7 L (8.4-10.2) mg/dL 02/02/19 02/02/19 02/03/19 Range/Units 17:07 19:45 07:12 WBC 19.4 H (3.8-10.6) k/uL RBC 4.00 L (4.30-5.90) m/uL Hgb 11.7 L (13.0-17.5) gm/dL Hct 38.0 L (39.0-53.0) % MCHC 30.8 L (31.0-37.0) g/dL RDW 17.1 H (11.5-15.5) % Plt Count 540 H (150-450) k/uL Neutrophils # 17.6 H (1.3-7.7) k/uL Lymphocytes # 0.7 L (1.0-4.8) k/uL Potassium (3.5-5.1) mmol/L Chloride (98-107) mmol/L Carbon Dioxide (22-30) mmol/L Creatinine (0.66-1.25) mg/dL Glucose (74-99) mg/dL POC Glucose (mg/dL) 157 H 147 H (75-99) mg/dL Calcium (8.4-10.2) mg/dL 02/03/19 02/03/19 Range/Units 07:12 07:42 WBC (3.8-10.6) k/uL RBC (4.30-5.90) m/uL Hgb (13.0-17.5) gm/dL Hct (39.0-53.0) % MCHC (31.0-37.0) g/dL RDW (11.5-15.5) % Plt Count (150-450) k/uL Neutrophils # (1.3-7.7) k/uL Lymphocytes # (1.0-4.8) k/uL Potassium 2.7 L* (3.5-5.1) mmol/L Chloride 88 L (98-107) mmol/L Carbon Dioxide 47 H* (22-30) mmol/L Creatinine 0.55 L (0.66-1.25) mg/dL Glucose 164 H (74-99) mg/dL POC Glucose (mg/dL) 146 H (75-99) mg/dL Calcium 7.8 L (8.4-10.2) mg/dL Assessment and Plan Assessment: Assessment: 1 acute pneumoperitoneum secondary to perforation of duodenal ulcer status post treatment. Of duodenal ulcer and repair of incarcerated umbilical hernia 2 advanced COPD and severe pulmonary fibrosis with chronic hypoxic respiratory failure 3 history of rheumatoid arthritis 4 obstructive sleep apnea syndrome not compliant with CPAP. 5 chronic back pain 6 osteoarthritis 7 pseudomonas aeruginosa in the sputum, could be a colonization or could be secondary to pseudomonal pneumonia. Best to continue antibiotics at present since the patient's pulmonary status is rather marginal. 8 acute on chronic hypoxic respiratory failure multifactorial mostly related to his COPD, pulmonary fibrosis, and suspect some component of pneumonia/pseudomonal pneumonia. Plan: The patient was seen and evaluated by Dr. Weaver. Chest x-ray and labs reviewed. Remains on 6 L high flow nasal cannula. Continue to titrate down the FiO2 as tolerated. Continue the current treatment plan. Increase his activity as tolerated. We'll continue to follow. I, the cosigning physician, performed a history & physical examination of the patient. Lungs sounds crackles in the bilateral posterior bases, diminished. Maintaining good O2 saturations in the 90s on 6 L high flow nasal cannula. I discussed the assessment and plan of care with my nurse practitioner, Priscilla Mike. I attest to the above note as dictated by her.
--- NOTE | 2019-02-03 11:27 | P.PN ---
<XieAnn Marie Goran - Last Filed: 02/03/19 11:24> Subjective Progress Note Date: 02/03/19 CHIEF COMPLAINT: Perforated duodenal ulcer HISTORY OF PRESENT ILLNESS: Patient seen and examined this morning. He is sitting up in the chair. Patient reports his abdominal pain is tolerable. However he is utilizing the Dilaudid more than the [place]. Tolerating diet. No nausea or vomiting. TAHMINA with minimal drainage. WBC 19.4. Hemoglobin 11.7. PHYSICAL EXAM: VITAL SIGNS: Reviewed. GENERAL: Well-developed in no acute distress. HEENT: No sclera icterus. Extraocular movements grossly intact. Moist buccal mucosa. Head is atraumatic, normocephalic. ABDOMEN: Soft. Nondistended. Dressing clean dry intact. TAHMINA with serosanguinous drainage. NEUROLOGIC: Alert and oriented. Cranial nerves II through XII grossly intact. ASSESSMENT: 1. Perforated duodenal ulcer, status post exploratory laparotomy with repair of perforated duodenal ulcer and repair of incarcerated umbilical hernia PLAN: 1. Continue current diet 2. CBC and BMP daily 3. Wound care. Dressing to be changed today per nursing. 4. Incentive spirometry 5. Activity as tolerated. 6. Continue antibiotics. Monitor WBC. 7. Pulmonary and infectious disease following. 8. Replace potassium. Check magnesium level. 9. Likely DC TAHMINA drain tomorrow Nurse practitioner note has been reviewed by physician. Signing provider agrees with the documented findings, assessment, and plan of care. Objective - Vital Signs Vital signs: Vital Signs Temp 98.4 F 02/03/19 07:46 Pulse 88 02/03/19 09:26 Resp 18 02/03/19 08:00 BP 139/74 02/03/19 07:46 Pulse Ox 92 L 02/03/19 07:46 Intake & Output 02/02/19 02/03/19 02/03/19 18:59 06:59 18:59 Intake Total 800 250 150 Output Total 10 15 Balance 790 235 150 Weight 76.5 kg 74.9 kg Intake: IV 100 Piperacillin-Tazobactam 3 100 .375 gm In Sodium Chloride 0.9% 100 ml @ 25 mls/hr IVPB Q8HR [facility] Rx# :[id number] Oral 800 150 150 Output: Drainage 10 15 Right Lower Abdomen 10 15 Other: Voiding Method Bedside Commode Urinal # Voids 2 # Bowel Movements 1 ABP, PAP, CO, CI - Last Documented Arterial Blood Pressure 146/47 - Labs CBC & Chem 7: 02/03/19 07:12 02/03/19 07:12 Labs: Abnormal Lab Results - Last 24 Hours (Table) 02/02/19 02/02/19 02/02/19 Range/Units 11:10 11:10 11:37 WBC 22.1 H (3.8-10.6) k/uL RBC 4.09 L (4.30-5.90) m/uL Hgb 12.0 L (13.0-17.5) gm/dL Hct (39.0-53.0) % MCHC 30.6 L (31.0-37.0) g/dL RDW 16.9 H (11.5-15.5) % Plt Count 493 H (150-450) k/uL Neutrophils # 20.7 H (1.3-7.7) k/uL Lymphocytes # 0.5 L (1.0-4.8) k/uL Potassium 2.8 L (3.5-5.1) mmol/L Chloride 89 L (98-107) mmol/L Carbon Dioxide 45 H* (22-30) mmol/L Creatinine 0.57 L (0.66-1.25) mg/dL Glucose 116 H (74-99) mg/dL POC Glucose (mg/dL) 117 H (75-99) mg/dL Calcium 7.7 L (8.4-10.2) mg/dL 02/02/19 02/02/19 02/03/19 Range/Units 17:07 19:45 07:12 WBC 19.4 H (3.8-10.6) k/uL RBC 4.00 L (4.30-5.90) m/uL Hgb 11.7 L (13.0-17.5) gm/dL Hct 38.0 L (39.0-53.0) % MCHC 30.8 L (31.0-37.0) g/dL RDW 17.1 H (11.5-15.5) % Plt Count 540 H (150-450) k/uL Neutrophils # 17.6 H (1.3-7.7) k/uL Lymphocytes # 0.7 L (1.0-4.8) k/uL Potassium (3.5-5.1) mmol/L Chloride (98-107) mmol/L Carbon Dioxide (22-30) mmol/L Creatinine (0.66-1.25) mg/dL Glucose (74-99) mg/dL POC Glucose (mg/dL) 157 H 147 H (75-99) mg/dL Calcium (8.4-10.2) mg/dL 02/03/19 02/03/19 Range/Units 07:12 07:42 WBC (3.8-10.6) k/uL RBC (4.30-5.90) m/uL Hgb (13.0-17.5) gm/dL Hct (39.0-53.0) % MCHC (31.0-37.0) g/dL RDW (11.5-15.5) % Plt Count (150-450) k/uL Neutrophils # (1.3-7.7) k/uL Lymphocytes # (1.0-4.8) k/uL Potassium 2.7 L* (3.5-5.1) mmol/L Chloride 88 L (98-107) mmol/L Carbon Dioxide 47 H* (22-30) mmol/L Creatinine 0.55 L (0.66-1.25) mg/dL Glucose 164 H (74-99) mg/dL POC Glucose (mg/dL) 146 H (75-99) mg/dL Calcium 7.8 L (8.4-10.2) mg/dL <Chucky Levi - Last Filed: 02/03/19 17:55> Subjective As above. Minimal abdominal pain. Tolerating diet. TAHMINA drain output minimal. White blood cell count is improved. Continue antibiotics. Pulmonary toilet. Objective - Vital Signs Vital signs: Vital Signs Temp 98.4 F 02/03/19 07:46 Pulse 98 02/03/19 16:59 Resp 18 02/03/19 08:00 BP 139/74 02/03/19 07:46 Pulse Ox 92 L 02/03/19 07:46 Intake & Output 02/02/19 02/03/19 02/03/19 18:59 06:59 18:59 Intake Total 800 250 300 Output Total 10 15 Balance 790 235 300 Weight 76.5 kg 74.9 kg Intake: IV 100 Piperacillin-Tazobactam 3 100 .375 gm In Sodium Chloride 0.9% 100 ml @ 25 mls/hr IVPB Q8HR [facility] Rx# :[id number] Oral 800 150 300 Output: Drainage 10 15 Right Lower Abdomen 10 15 Other: Voiding Method Bedside Commode Urinal # Voids 2 # Bowel Movements 1 ABP, PAP, CO, CI - Last Documented Arterial Blood Pressure 146/47 - Labs CBC & Chem 7: 02/03/19 07:12 02/03/19 07:12 Labs: Abnormal Lab Results - Last 24 Hours (Table) 02/02/19 02/03/19 02/03/19 Range/Units 19:45 07:12 07:12 WBC 19.4 H (3.8-10.6) k/uL RBC 4.00 L (4.30-5.90) m/uL Hgb 11.7 L (13.0-17.5) gm/dL Hct 38.0 L (39.0-53.0) % MCHC 30.8 L (31.0-37.0) g/dL RDW 17.1 H (11.5-15.5) % Plt Count 540 H (150-450) k/uL Neutrophils # 17.6 H (1.3-7.7) k/uL Lymphocytes # 0.7 L (1.0-4.8) k/uL Potassium 2.7 L* (3.5-5.1) mmol/L Chloride 88 L (98-107) mmol/L Carbon Dioxide 47 H* (22-30) mmol/L Creatinine 0.55 L (0.66-1.25) mg/dL Glucose 164 H (74-99) mg/dL POC Glucose (mg/dL) 147 H (75-99) mg/dL Calcium 7.8 L (8.4-10.2) mg/dL 02/03/19 02/03/19 02/03/19 Range/Units 07:42 11:42 17:11 WBC (3.8-10.6) k/uL RBC (4.30-5.90) m/uL Hgb (13.0-17.5) gm/dL Hct (39.0-53.0) % MCHC (31.0-37.0) g/dL RDW (11.5-15.5) % Plt Count (150-450) k/uL Neutrophils # (1.3-7.7) k/uL Lymphocytes # (1.0-4.8) k/uL Potassium (3.5-5.1) mmol/L Chloride (98-107) mmol/L Carbon Dioxide (22-30) mmol/L Creatinine (0.66-1.25) mg/dL Glucose (74-99) mg/dL POC Glucose (mg/dL) 146 H 138 H 196 H (75-99) mg/dL Calcium (8.4-10.2) mg/dL Assessment and Plan (1) Bowel perforation Current Visit: Yes Status: Acute Code(s): K63.1 - PERFORATION OF INTESTINE (NONTRAUMATIC) SNOMED Code(s): 50159307
[2019-02-03 11:43] LABS: Glucose,Whole Blood 138 mg/dL (75-99)
[2019-02-03] MEDS: HYDROcodone/APAP 5-325MG 1 EACH TAB PO PRN ×3 (14:01→23:56)
--- NOTE | 2019-02-03 15:02 | PN ---
PROGRESS NOTE DATE OF SERVICE: 02/03/2019 This 68-year-old gentleman admitted with acute pneumoperitoneum secondary to duodenal perforation had surgery. The patient also had significant respiratory issues including COPD and pulmonary fibrosis, also. Patient remains on oxygen. The patient also complains of weakness and tiredness and PT, OT is also following the patient as well. ECF rehab is a possibility. Of note also, the sputum culture showed pseudomonas. The patient is on IV Zosyn currently. The chest x-ray showed bibasilar opacities consistent with pulmonary fibrosis. The patient underwent exploratory laparotomy and repair of perforated duodenal ulcer, repair of incarcerated umbilical hernia by Dr. Levi. There is no history of fever, rigors. No history of headache, loss of consciousness, seizures. PAST MEDICAL HISTORY: Reviewed. REVIEW OF SYSTEMS: CARDIOVASCULAR SYSTEM: No angina. RESPIRATION; As mentioned earlier. GI: As mentioned earlier. : No dysuria. NERVOUS SYSTEM: No numbness or weakness. CURRENT MEDICATIONS: 1. Dimock 5 mg q.4 p.r.n. 2. DuoNeb q.i.d. and p.r.n. 3. Diflucan 200 mg daily. 4. Lasix 40 mg IV q.8. 5. Heparin 5 subcu q.8. 6. Apresoline 10 mg q.4. 7. Solu-Cortef 50 mg IV q.8. 8. Dilaudid 0.5 mg q.4. 9. NovoLog scale. 10.Flagyl 500 mg daily. 11.Potassium. 12.Narcan. 13.Protonix 40 mg. 14.Zosyn 3.375 IV q.8. 15.K-Dur 10 mg p.o. b.i.d. PHYSICAL EXAMINATION: Patient is alert, oriented x3. Pulse 98, Blood pressure 139/74, respiration 18, temperature 98.4, pulse ox 98% on 6 L. HEENT: Conjunctivae normal. Oral mucosa moist. NECK: No jugular venous distention. No lymph node enlargement. CARDIOVASCULAR SYSTEM: S1, S2. RESPIRATORY: Breathing efforts increased, breath sounds diminished at the bases. Bilateral scattered rhonchi and basal crackles also heard. ABDOMEN: Soft, status post surgery. LEGS: No edema. No swelling. NERVOUS SYSTEM: Higher functions as mentioned earlier, moves all 4 limbs. No focal motor signs. LYMPHATICS: No lymph node enlargement. JOINTS: No active deforming arthropathy. LABS: WBC 19.3, hemoglobin 11.7, sodium 138, potassium 2.7, CO2 is 47. ASSESSMENT: 1. Acute duodenal ulcer perforation with pneumoperitoneum, status post exploratory laparotomy with repair of perforated duodenal ulcer and repair of incarcerated umbilical hernia. 2. Advanced chronic obstructive pulmonary disease and severe pulmonary fibrosis with acute on chronic hypoxic respiratory failure. 3. Chronic hypoxic respiratory failure on 3 L oxygen at night at home. 4. History rheumatoid arthritis. 5. Gait dysfunction and generalized asthenia. 6. Obstructive sleep apnea. 7. Chronic back pain, degenerative joint disease. 8. Pseudomonas aeruginosa in the sputum. 9. Increased WBC. 10.Anemia of chronic disease. 11.Severe hypokalemia. 12.Hyperlipidemia. 13.History of sleep apnea. 14.Remote history of pneumonia. 15.History of anxiety, depression. 16.Remote history of nicotine dependence. 17.FULL CODE. RECOMMENDATION: In this 68-year-old gentleman who presented with multiple complex medical issues, will monitor the patient closely, continue with the current management and symptomatic treatment. Will continue with the bronchodilators. Continue with steroids. Continue with the rest of medications. Incentive spirometry. Continue with broad-spectrum IV antibiotics, PT, OT evaluation, possible ECF rehab. Discussed at length with the patient and family and further recommendations to follow. We will also replace the potassium. Will also check for repeat lytes, magnesium has been checked. Further recommendations to follow. MMODL / IJN: [id number] /
[2019-02-03 17:14] LABS: Glucose,Whole Blood 196 mg/dL (75-99)
[2019-02-03 18:21] LABS: Magnesium 1.7 mg/dL (1.6-2.3); Potassium 2.8 mmol/L (3.5-5.1)
[2019-02-03 19:43] LABS: Glucose,Whole Blood 122 mg/dL (75-99)
[2019-02-03] MEDS: TEMAZEPAM 15 MG CAP PO PRN (22:02)
[2019-02-04] MEDS: POTASSIUM CHLORIDE ER 20 MEQ TAB.ER PO SCH ×4 (00:26→21:06)
[2019-02-04] MEDS: IPRATROPIUM-ALBUTEROL 3 ML NEB INHALATION SCH ×4 (01:44→20:11)
[2019-02-04 07:26] LABS: Glucose,Whole Blood 141 mg/dL (75-99)
[2019-02-04 07:50] LABS: Anisocytosis Slight; Basophils % (A) 0 %; Eosinophils # (A) 0.1 k/uL (0-0.7); Eosinophils % (A) 0 %; HCT 37.8 % (39.0-53.0); HGB 11.9 gm/dL (13.0-17.5); Hypochromasia Slight; Lymphocytes # (A) 0.9 k/uL (1.0-4.8); Lymphocytes % (A) 7 %; MCH 30.3 pg (25.0-35.0); MCHC 31.5 g/dL (31.0-37.0); MCV 96.1 fL (80.0-100.0); Macrocytosis Slight; Mean Platelet Volume 7.4; Monocytes # (A) 0.7 k/uL (0-1.0); Monocytes % (A) 5 %; Neutrophils # (A) 11.3 k/uL (1.3-7.7); Neutrophils % (A) 86 %; Platelet Count 508 k/uL (150-450); RBC 3.93 m/uL (4.30-5.90); WBC 13.1 k/uL (3.8-10.6)
[2019-02-04 07:54] LABS: Blood Urea Nitrogen 18 mg/dL (9-20); Calcium 8.2 mg/dL (8.4-10.2); Chloride 90 mmol/L (98-107); Glucose 142 mg/dL (74-99); Potassium 3.2 mmol/L (3.5-5.1); Sodium 140 mmol/L (137-145)
[2019-02-04] MEDS: PANTOPRAZOLE 40 MG TABLET PO SCH (08:00)
[2019-02-04] MEDS: FUROSEMIDE 10 MG/ML 4 ML VIAL IV SCH ×3 (08:00→23:03)
[2019-02-04] MEDS: INSULIN ASPART (NovoLOG) 100 UNIT/ML VIAL SQ SCH ×4 (08:00→21:07)
[2019-02-04 08:01] LABS: Anion Gap 3 mmol/L
[2019-02-04] MEDS: HYDROCORTISONE SUCCINATE 100 MG/2 ML VIAL IV SCH (08:01)
[2019-02-04] MEDS: HEPARIN SODIUM,PORCINE 5,000 UNIT/ML 1 ML VIAL SQ SCH ×3 (08:01→23:03)
[2019-02-04] MEDS: PIPERACILLIN-TAZOBACTAM 3.375 GM in SODIUM CHLORIDE 0.9% 100 ML IVPB SCH ×3 (08:01→23:02)
[2019-02-04] MEDS: HYDROcodone/APAP 5-325MG 1 EACH TAB PO PRN ×5 (08:03→21:06)
[2019-02-04 08:08] LABS: Carbon Dioxide 47 mmol/L (22-30)
[2019-02-04] MEDS ORDERED: ONDANSETRON 4 MG/2 ML VIAL IVP PRN (08:36)
--- NOTE | 2019-02-04 10:39 | P.PN ---
Subjective Progress Note Date: 02/04/19 Principal diagnosis: Perforated duodenal ulcer Patient doing well today. Breathing is comfortable and non-labored. White blood cell count is improved at 13. TAHMINA drain output remains low. Objective - Vital Signs Vital signs: Vital Signs Temp 97.7 F 02/04/19 07:05 Pulse 89 02/04/19 08:51 Resp 18 02/04/19 07:05 BP 134/71 02/04/19 07:05 Pulse Ox 90 L 02/04/19 07:05 Intake & Output 02/03/19 02/04/19 02/04/19 18:59 06:59 18:59 Intake Total 300 336 Output Total 10 Balance 300 326 Intake: IV 100 Piperacillin-Tazobactam 3 100 .375 gm In Sodium Chloride 0.9% 100 ml @ 25 mls/hr IVPB Q8HR [facility] Rx# :[id number] Oral 300 236 Output: Drainage 10 Right Lower Abdomen 10 Other: Voiding Method Bedside Commode Urinal # Voids 1 # Bowel Movements 1 ABP, PAP, CO, CI - Last Documented Arterial Blood Pressure 146/47 - Exam Abdomen: Soft, nondistended, mild tenderness along incision, wounds clean - Labs CBC & Chem 7: 02/04/19 07:24 02/04/19 07:24 Labs: Abnormal Lab Results - Last 24 Hours (Table) 02/03/19 02/03/19 02/03/19 Range/Units 11:42 17:11 17:47 WBC (3.8-10.6) k/uL RBC (4.30-5.90) m/uL Hgb (13.0-17.5) gm/dL Hct (39.0-53.0) % RDW (11.5-15.5) % Plt Count (150-450) k/uL Neutrophils # (1.3-7.7) k/uL Lymphocytes # (1.0-4.8) k/uL Potassium 2.8 L (3.5-5.1) mmol/L Chloride (98-107) mmol/L Carbon Dioxide (22-30) mmol/L Creatinine (0.66-1.25) mg/dL Glucose (74-99) mg/dL POC Glucose (mg/dL) 138 H 196 H (75-99) mg/dL Calcium (8.4-10.2) mg/dL 02/03/19 02/04/19 02/04/19 Range/Units 19:40 07:06 07:24 WBC 13.1 H (3.8-10.6) k/uL RBC 3.93 L (4.30-5.90) m/uL Hgb 11.9 L (13.0-17.5) gm/dL Hct 37.8 L (39.0-53.0) % RDW 17.0 H (11.5-15.5) % Plt Count 508 H (150-450) k/uL Neutrophils # 11.3 H (1.3-7.7) k/uL Lymphocytes # 0.9 L (1.0-4.8) k/uL Potassium (3.5-5.1) mmol/L Chloride (98-107) mmol/L Carbon Dioxide (22-30) mmol/L Creatinine (0.66-1.25) mg/dL Glucose (74-99) mg/dL POC Glucose (mg/dL) 122 H 141 H (75-99) mg/dL Calcium (8.4-10.2) mg/dL 02/04/19 Range/Units 07:24 WBC (3.8-10.6) k/uL RBC (4.30-5.90) m/uL Hgb (13.0-17.5) gm/dL Hct (39.0-53.0) % RDW (11.5-15.5) % Plt Count (150-450) k/uL Neutrophils # (1.3-7.7) k/uL Lymphocytes # (1.0-4.8) k/uL Potassium 3.2 L (3.5-5.1) mmol/L Chloride 90 L (98-107) mmol/L Carbon Dioxide 47 H* (22-30) mmol/L Creatinine 0.58 L (0.66-1.25) mg/dL Glucose 142 H (74-99) mg/dL POC Glucose (mg/dL) (75-99) mg/dL Calcium 8.2 L (8.4-10.2) mg/dL Assessment and Plan (1) Bowel perforation Narrative/Plan: Remove TAHMINA drain today. Continue chopped foods diet. Antibiotics per infectious disease. Continue physical therapy. Current Visit: Yes Status: Acute Code(s): K63.1 - PERFORATION OF INTESTINE (NONTRAUMATIC) SNOMED Code(s): 80761611
[2019-02-04] MEDS: FLUCONAZOLE 100 MG TAB PO SCH (10:42)
[2019-02-04] MEDS: metroNIDAZOLE 500 MG TAB PO SCH ×4 (10:42→21:06)
[2019-02-04 11:29] LABS: Glucose,Whole Blood 146 mg/dL (75-99)
--- NOTE | 2019-02-04 12:09 | P.PN ---
Subjective Progress Note Date: 02/04/19 Principal diagnosis: Acute pneumoperitoneum secondary to perforated duodenal ulcer 68-year-old male patient came into the emergency department with a one-week history of abdominal pain. He initially went to [facility] emergency department with a CAT scan was done and the patient was told to have diverticulosis without diverticulitis. Over the past week, the patient developed progressive worsening his abdominal discomfort and today came into the emergency department having more pain and the pain was rather diffuse in nature. He had diminished appetite, diminished oral intake and he was having no significant bowel movements. No GI bleeding. Denies having any fever or chills. He was nauseated when he was getting progressively more lethargic and weak and short of breath. CAT scan of the abdomen was done in the emergency department and showed significant inflammatory changes in the epigastric region involving posterior aspect of the proximal transverse colon. There was evidence of pneumoperitoneum around that along with some inflammatory changes as well as some free fluid in the abdomen. The stomach itself appeared to be within normal limits. The patient has long-term history of COPD and pulmonary fibrosis. Based on his pulmonary function test in 2017 he has an FVC of 72% and FEV1 of 46% and he has been steroid dependent for the past few years taking prednisone a daily basis. He has also underlying rheumatoid arthritis and previously he was taking immunosuppression with Humira none for now. His oxygen dependent. Blood work showed a white cell count 16.2 with a hemoglobin of 14.9. Platelet count is at 519. He has a BUN of 27 creatinine of 0.7 and lactic acid was at 1.9 with a troponin being less than 0.01. LFTs are all within normal limits. He is tachycardic with temperature 98.2. He was having sinus tachycardia with a heart rate of 120. He is currently on 5 L of oxygen by nasal cannula with a pulse ox of 90%. The patient will be taken to the operating room. He was seen by the surgical team following that I've advised the patient coming back to the intensive care unit for further evaluation and treatment. He may need to be kept intubated overnight. On 01/26/2019, the patient is postop day #4. The patient is doing well. He is awake and alert. History requiring high flow oxygen at 10 L. He doesn't have much reserve and he desaturates easily. NG tube was removed yesterday and this morning the patient was given some clear liquid diet. Surgical wound site is clean. Output from the TAHMINA drain is minimal in the order of 30 mL over the past 24 hours. Surgical wound site is dry clean and intact. He is passing flatus. No bowel activity as. He remains on IV Zosyn. He is using incentive spirometer. He is on status post hydrocortisone. He is awake and alert. He has pseudomonas aeruginosa in his sputum for which she is covered with IV Zosyn. No other significant events overnight. Patient was reevaluated today on 01/27/2019, remains on high flow nasal cannula 7 L/m, continues to have significantly abnormal chest x-ray with diffuse interstitial lung disease consistent with pulmonary fibrosis, underlying pneumonia is not entirely ruled out. His FiO2 is being titrated down, patient is noted to be short of breath with any activity. His sputum was positive for pseudomonas aeruginosa, remains on Zosyn. All labs were reviewed today, potassium is a bit low at 3.2 being corrected as per protocol. Patient was reevaluated today on 01/28/2019, remains on high flow nasal cannula, 90 L/m, patient is basically about the same, chest x-ray is basically about the same showing bibasilar interstitial lung disease consistent with pulmonary fibrosis. Again underlying pneumonia is not entirely ruled out but felt to be less likely. Patient is hemodynamically stable, in no distress, being treated f or pseudomonas aeruginosa in the sputum, remains on Zosyn. CBC is relatively normal WBC count is 10.5 hemoglobin is 11.5 light was normal except for low potassium being corrected as per protocol. Patient continues to have good urine output. Reevaluated today on 01/29/2019, remains in the ICU, he is presently overflow from selective. Patient remains on 8 L high flow nasal cannula, pulmonary stat us remains marginal. Overall it is better than expected considering his underlying COPD and underlying interstitial lung disease. Patient seems to be recovering slowly. Last chest x-ray showed basically chronic changes of COPD and interstitial lung disease. Underlying pneumonia is definitely not entirely ruled out. Patient had positive Pseudomonas in the sputum and he is being treated as such. Electrolytes are normal except for low potassium being corrected as per protocol. The patient himself denies shortness of breath, denies any pain, he is complaining of significant swelling in his upper and lower extremities, hence I initiated diuretics today. On 01/30/2019 patient seen in follow-up on medical surgical floor. He is awake and alert, in no acute distress, he is on 6 L of oxygen, with a pulse ox of 95- 96%, he is afebrile, hemodynamically stable. Work on his incentive spirometer, achieving about 1000 on the today. This is postop day 8 status post exploratory laparotomy with repair of the perforated duodenal ulcer and repair of the incarcerated umbilical hernia. he is doing well, he was started on some oral Lasix yesterday, for generalized anasarca, and he is in -1869 mL fluid balance over the last 24 hours. Still has quite a bit of swelling in his upper and lower extremities. His lab work has been reviewed, showing white blood cell count of 20.9, hemoglobin of 11.6, serum sodium is 136, potassium is 2.7, this being replaced per protocol, chloride is 95, CO2 39, creatinine of 0.57 and BUN of 13. Patient is tolerating oral intake, he is passing bowel movements. No new chest x-rays today On 02/01/2019 patient seen in follow-up on medical surgical floor. He sitting up in the recliner, in no acute distress, was on 15 L high flow oxygen this morning, and his pulse ox was 88-91%, was encouraged to deep breathe and cough, and oxygen level did come up to 97%, we will start weaning FiO2, encouraged deep breathing and coughing, patient is pulling of 1000 ML on his incentive spirometer, no fever or chills, lung sounds reveal good air entry bilaterally, no significant wheezes or rhonchi, there are bilateral crackles at the bases, but they are limited. We will obtain follow-up chest x-ray today, he is on maintenance dose of oral Lasix at 20 mg twice daily, antibiotic coverage in the form of Flagyl, and Zosyn, there has been no fever, no chills, hemodynamically stable. He remains on stress doses of hydrocortisone, we will start weaning it down, patient is normally on prednisone 10 mg daily for his history of COPD. Tolerating oral diet, no nausea vomiting or diarrhea, mid abdominal incision is intact, tension sutures are intact, bowel sounds are active, surgery is following, CT of abdomen and pelvis showed decrease in fluid accumulation involving the small bowel mesentery, no evidence of any fluid collection, there is a reduction of the umbilical hernia compared to last exam, and stable sigmoid diverticulosis without diverticulitis. It also showed patchy bilateral basilar pulmonary infiltrates and atelectasis and pleural fluid. On 02/02/2090 patient seen in follow-up on medical surgical floor. He is awake and alert, in no acute distress, currently down to 8 L, with a pulse ox of 92%, he is afebrile, hemodynamically stable, lung sounds reveal coarse basilar crackles over posterior lower lobes. No fever or chills, today's labs have been reviewed, white blood cell count is trending down, down to 22.1, hemoglobin is 12.0, sodium is 137, potassium is 2.8, chloride is 89, CO2 25, BUN is 16 creatinine 0.57. Today's chest x-ray shows bibasilar opacities and trace pleural effusions. He is working on his incentive spirometry. I&O's are difficult to estimate as the patient is voiding, The weight is actually up 0.5 kg. And patient still has quite significant amount of generalized edema. On 02/04/2019 patient seen in follow-up on medical surgical floor. Doing better, breathing easier, fluid volume status is improving, less edema in bilateral lower extremities and upper extremities. Lung sounds reveal coarse crackles, patient remains on 6 L of oxygen. Yesterday's chest x-ray has been reviewed, showing bibasilar opacities and trace pleural effusions. Patient is working on incentive spirometer, he is maintaining negative fluid balance. Today's labs have been reviewed, showed a white blood cell count of 13.1, hemogl obin is 11.9, serum sodium is 140, potassium is 3.2, chloride is 90, CO2 is 47, B1 of 18, creatinine 0.58. Serum potassium is being replaced per protocol. Patient remains on Zosyn for pseudomonas aeruginosa in the sputum cultures, remains on Flagyl, and IV hydrocortisone which we are weaning right now. Objective - Vital Signs Vital signs: Vital Signs Temp 97.7 F 02/04/19 07:05 Pulse 92 02/04/19 11:45 Resp 18 02/04/19 07:05 BP 134/71 02/04/19 07:05 Pulse Ox 90 L 02/04/19 07:05 Intake & Output 02/03/19 02/04/19 02/04/19 18:59 06:59 18:59 Intake Total 300 336 Output Total 10 Balance 300 326 Intake: IV 100 Piperacillin-Tazobactam 3 100 .375 gm In Sodium Chloride 0.9% 100 ml @ 25 mls/hr IVPB Q8HR [facility] Rx# :[id number] Oral 300 236 Output: Drainage 10 Right Lower Abdomen 10 Other: Voiding Method Bedside Commode Urinal # Voids 1 # Bowel Movements 1 ABP, PAP, CO, CI - Last Documented Arterial Blood Pressure 146/47 - Exam GENERAL EXAM: Alert, pleasant, 68-year-old white male, on 6 L of oxygen, comfortable in no apparent distress. HEAD: Normocephalic/atraumatic. EYES: Normal reaction of pupils, equal size. Conjunctiva pink, sclera white. NOSE: Clear with pink turbinates. THROAT: No erythema or exudates. NECK: No masses, no JVD, no thyroid enlargement, no adenopathy. CHEST: No chest wall deformity. Symmetrical expansion. LUNGS: Equal air entry with diminished breath sounds, and basilar rales CVS: Regular rate and rhythm, normal S1 and S2, no gallops, no murmurs, no rubs ABDOMEN: Soft, nontender. No hepatosplenomegaly, normal bowel sounds, no guarding or rigidity. Midabdominal incision is clean dry and intact retention sutures are intact, TAHMINA drain is compressed, draining serosanguineous fluid EXTREMITIES: No clubbing, generalized edema, no cyanosis, 2+ pulses and upper and lower extremities. MUSCULOSKELETAL: Muscle strength and tone normal. SPINE: No scoliosis or deformity SKIN: No rashes CENTRAL NERVOUS SYSTEM: Alert and oriented -3. No focal deficits, tone is normal in all 4 extremities. PSYCHIATRIC: Alert and oriented -3. Appropriate affect. Intact judgment and insight. - Labs CBC & Chem 7: 02/04/19 07:24 02/04/19 07:24 Labs: Abnormal Lab Results - Last 24 Hours (Table) 02/03/19 02/03/19 02/03/19 Range/Units 17:11 17:47 19:40 WBC (3.8-10.6) k/uL RBC (4.30-5.90) m/uL Hgb (13.0-17.5) gm/dL Hct (39.0-53.0) % RDW (11.5-15.5) % Plt Count (150-450) k/uL Neutrophils # (1.3-7.7) k/uL Lymphocytes # (1.0-4.8) k/uL Potassium 2.8 L (3.5-5.1) mmol/L Chloride (98-107) mmol/L Carbon Dioxide (22-30) mmol/L Creatinine (0.66-1.25) mg/dL Glucose (74-99) mg/dL POC Glucose (mg/dL) 196 H 122 H (75-99) mg/dL Calcium (8.4-10.2) mg/dL 02/04/19 02/04/19 02/04/19 Range/Units 07:06 07:24 07:24 WBC 13.1 H (3.8-10.6) k/uL RBC 3.93 L (4.30-5.90) m/uL Hgb 11.9 L (13.0-17.5) gm/dL Hct 37.8 L (39.0-53.0) % RDW 17.0 H (11.5-15.5) % Plt Count 508 H (150-450) k/uL Neutrophils # 11.3 H (1.3-7.7) k/uL Lymphocytes # 0.9 L (1.0-4.8) k/uL Potassium 3.2 L (3.5-5.1) mmol/L Chloride 90 L (98-107) mmol/L Carbon Dioxide 47 H* (22-30) mmol/L Creatinine 0.58 L (0.66-1.25) mg/dL Glucose 142 H (74-99) mg/dL POC Glucose (mg/dL) 141 H (75-99) mg/dL Calcium 8.2 L (8.4-10.2) mg/dL 02/04/19 Range/Units 11:27 WBC (3.8-10.6) k/uL RBC (4.30-5.90) m/uL Hgb (13.0-17.5) gm/dL Hct (39.0-53.0) % RDW (11.5-15.5) % Plt Count (150-450) k/uL Neutrophils # (1.3-7.7) k/uL Lymphocytes # (1.0-4.8) k/uL Potassium (3.5-5.1) mmol/L Chloride (98-107) mmol/L Carbon Dioxide (22-30) mmol/L Creatinine (0.66-1.25) mg/dL Glucose (74-99) mg/dL POC Glucose (mg/dL) 146 H (75-99) mg/dL Calcium (8.4-10.2) mg/dL Assessment and Plan Plan: Assessment: 1 acute pneumoperitoneum secondary to perforation of duodenal ulcer status post treatment. Of duodenal ulcer and repair of incarcerated umbilical hernia postoperative day #9 2 advanced COPD and severe pulmonary fibrosis with chronic hypoxic respiratory failure 3 history of rheumatoid arthritis 4 obstructive sleep apnea syndrome not compliant with CPAP. 5 chronic back pain 6 osteoarthritis 7 pseudomonas aeruginosa in the sputum, could be a colonization or could be secondary to pseudomonal pneumonia. Best to continue antibiotics at present since the patient's pulmonary status is rather marginal. 8 acute on chronic hypoxic respiratory failure multifactorial mostly related to his COPD, pulmonary fibrosis, and suspect some component of pneumonia/pseudomonal pneumonia. Plan: We'll continue with the IV diuretics for another 24 hours, we'll obtain a follow-up chest x-ray in the morning, acute I know's, daily weights, patient is improving in terms of dyspnea, and generalized edema. His labs have been reviewed, serum potassium is being replaced per protocol. Continue antibiotic coverage per ID service recommendations. We'll continue to follow and make further recommendations. I performed a history & physical examination of the patient and discussed their management with my nurse practitioner, Stella Powers. I reviewed the nurse practitioner's note and agree with the documented findings and plan of care. Lung sounds are positive for diminished breath sounds, with basilar rales. The findings and the impression was discussed with the patient. I attest to the documentation by the nurse practitioner. Time with Patient: Less than 30
[2019-02-04 17:11] LABS: Glucose,Whole Blood 106 mg/dL (75-99)
--- NOTE | 2019-02-04 17:27 | PN ---
PROGRESS NOTE DATE OF SERVICE: 02/04/2019 This 68-year-old gentleman who was admitted with acute pneumoperitoneum secondary to duodenal perforation had surgery. The patient is complaining of abdominal pain. The patient taking multiple pain medications. Patient also had hypoxia with pulse ox 90. PT/OT evaluating the patient. At this time, the and the patient would like to return home rather than ECF. No chest pain. No palpitations. No fever. The most recent chest x-ray done on February 03 is reviewed. PAST MEDICAL HISTORY: Reviewed. REVIEW OF SYSTEMS: CARDIOVASCULAR: No angina. No palpitations. RESPIRATORY: As mentioned earlier. GI mentioned earlier. : No dysuria. CENTRAL NERVOUS SYSTEM: No numbness or weakness. CURRENT MEDICATIONS: Reviewed and include: 1. [place] 5 mg q.4 p.r.n. 2. DuoNeb q.i.d. and p.r.n. 3. Diflucan 200 mg p.o. daily. 4. Lasix 40 mg IV q.8h. 5. Heparin 5000 subcu q8h. 6. Apresoline 10 mg q.4 p.r.n. 7. Dilaudid 0.5 q.4 p.r.n. 8. NovoLog. 9. Flagyl 500 mg p.o. q.i.d. 10.Potassium. 11.Narcan 0.2 q.2h p.r.n. 12.Zofran. 13.Protonix. 14.Zosyn 3.375 IV q8h. 15.K-Dur 40 mEq p.o. b.i.d. 16.Prednisone 10 mg p.o. daily. 17.Restoril 15 q.h.s. p.r.n. PHYSICAL EXAM: Patient is alert, oriented x3. The pulse is 93, blood pressure 143/70, respirations 18, temperature 97.7, pulse ox 98% on 6 L. HEENT: Conjunctivae normal. Oral mucosa moist. NECK is no jugular venous distention. No carotid bruit. No lymph node enlargement. CARDIOVASCULAR SYSTEM: S1, S2 muffled. RESPIRATORY: Breath sounds diminished in the bases. Bilateral scattered rhonchi and crackles. ABDOMEN: Soft, nontender. No mass palpable. LEGS: No edema. No swelling. CENTRAL NERVOUS SYSTEM: Higher functions as mentioned earlier. Moves all four extremities. No focal motor or sensory deficits. LYMPHATICS: No lymph nodes palpable in the neck, axillae or groin. SKIN: No ulcer. No rashes. No bleeding. JOINTS: No active deforming arthropathy. LABORATORY DATA: WBC 13.2, hemoglobin 11.7, potassium 3.2. ASSESSMENT: 1. Acute duodenal ulcer perforation with pneumoperitoneum, status post exploratory laparotomy, repair of perforated duodenal ulcer and repair of incarcerated umbilical hernia. 2. Advanced chronic obstructive pulmonary disease with severe pulmonary fibrosis with acute on chronic hypoxic respiratory failure. 3. Chronic hypoxic respiratory failure on 3 L oxygen at home. 4. History of rheumatoid arthritis. 5. History of gait dysfunction, generalized asthenia. 6. Obstructive sleep apnea. 7. Chronic back pain, degenerative joint disease. 8. Pseudomonas aeruginosa in the sputum. 9. Increased WBC. 10.Anemia of chronic disease. 11.Severe hypokalemia. 12.Hyperlipidemia. 13.History of sleep apnea. 14.Remote history of pneumonia. 15.History of anxiety, depression. 16.Remote history of nicotine dependence. 17.FULL CODE. RECOMMENDATIONS AND DISCUSSION: I recommend to continue current medications, continue with monitoring, management. Symptomatic treatment. Continue to optimize bronchodilator treatment. Otherwise pain treatment. Try to cut down the IV pain medication. Continue the antibiotics. PT/OT evaluation. Once the patient is stable, the patient may be discharged in the next 24- 48 hours. Prognosis guarded. Further recommendations to follow. SIMIN / JULIETTE: [id number] /
--- NOTE | 2019-02-04 18:09 | PN ---
PROGRESS NOTE DATE OF SERVICE: 02/04/2019. REASON FOR FOLLOWUP: Secondary peritonitis from a perforated peptic ulcer disease. INTERVAL HISTORY: The patient is currently afebrile. The patient has been breathing comfortably. The patient did have some cough. Denies having any worsening sputum production. No nausea, vomiting. No abdominal pain. No diarrhea. PHYSICAL EXAMINATION: Blood pressure 128/70 with a pulse of 95, temperature 98.5. He is 93% on 4 L nasal cannula. General description is an elderly male up in the bed in no distress. Respiratory system: Unlabored breathing. Decreased breath sounds in the bases, with no wheeze. Heart S1, S2. Regular rate and rhythm. Abdomen soft, no tenderness. LABS: Hemoglobin 11.2, white count of 13.9, BUN of 18, creatinine 0.58. DIAGNOSTIC IMPRESSION AND PLAN: 1. Patient with secondary peritonitis from a perforated peptic ulcer disease status post repair. Patient is currently on Zosyn and Diflucan transition to oral short course to finish course of therapy. 2. White count elevation, more likely steroid dependent, showing downward trend. 3. Continue supportive care. MMODL / IJN: [id number] /
[2019-02-04 20:38] LABS: Glucose,Whole Blood 194 mg/dL (75-99)
[2019-02-04] MEDS: TEMAZEPAM 15 MG CAP PO PRN (21:06)
[2019-02-05] MEDS: HYDROcodone/APAP 5-325MG 1 EACH TAB PO PRN ×6 (00:07→22:30)
[2019-02-05] MEDS: IPRATROPIUM-ALBUTEROL 3 ML NEB INHALATION SCH ×4 (01:18→19:40)
[2019-02-05 06:09] LABS: Anisocytosis Slight; Basophils % (A) 0 %; Eosinophils # (A) 0.1 k/uL (0-0.7); Eosinophils % (A) 1 %; HCT 38.4 % (39.0-53.0); HGB 11.7 gm/dL (13.0-17.5); Hypochromasia Slight; Lymphocytes # (A) 1.9 k/uL (1.0-4.8); Lymphocytes % (A) 12 %; MCH 29.5 pg (25.0-35.0); MCHC 30.4 g/dL (31.0-37.0); MCV 96.9 fL (80.0-100.0); Macrocytosis Slight; Mean Platelet Volume 7.3; Monocytes # (A) 0.6 k/uL (0-1.0); Monocytes % (A) 4 %; Neutrophils # (A) 12.5 k/uL (1.3-7.7); Neutrophils % (A) 82 %; Platelet Count 466 k/uL (150-450); RBC 3.97 m/uL (4.30-5.90); RDW 17.4 % (11.5-15.5); WBC 15.3 k/uL (3.8-10.6)
[2019-02-05 06:19] LABS: Blood Urea Nitrogen 21 mg/dL (9-20); Calcium 8.1 mg/dL (8.4-10.2); Chloride 92 mmol/L (98-107); Glucose 88 mg/dL (74-99); Potassium 3.6 mmol/L (3.5-5.1); Sodium 140 mmol/L (137-145)
[2019-02-05 06:26] LABS: Anion Gap 3 mmol/L; Carbon Dioxide 45 mmol/L (22-30)
[2019-02-05] MEDS: INSULIN ASPART (NovoLOG) 100 UNIT/ML VIAL SQ SCH ×4 (07:39→20:19)
[2019-02-05 07:44] LABS: Glucose,Whole Blood 107 mg/dL (75-99)
[2019-02-05] MEDS: FUROSEMIDE 10 MG/ML 4 ML VIAL IV SCH ×2 (07:46→15:23)
[2019-02-05] MEDS: HEPARIN SODIUM,PORCINE 5,000 UNIT/ML 1 ML VIAL SQ SCH ×2 (07:46→15:23)
[2019-02-05] MEDS: POTASSIUM CHLORIDE ER 20 MEQ TAB.ER PO SCH ×2 (07:47→22:10)
[2019-02-05] MEDS: FLUCONAZOLE 100 MG TAB PO SCH (07:47)
[2019-02-05] MEDS: PANTOPRAZOLE 40 MG TABLET PO SCH (07:47)
[2019-02-05] MEDS: metroNIDAZOLE 500 MG TAB PO SCH ×4 (07:47→22:10)
[2019-02-05] MEDS: predniSONE 10 MG TAB PO SCH (07:47)
[2019-02-05] MEDS: PIPERACILLIN-TAZOBACTAM 3.375 GM in SODIUM CHLORIDE 0.9% 100 ML IVPB SCH ×2 (07:47→15:23)
--- NOTE | 2019-02-05 10:56 | P.PN ---
Subjective Progress Note Date: 02/05/19 CHIEF COMPLAINT: Perforated duodenal ulcer HISTORY OF PRESENT ILLNESS: Patient seen and examined this morning. He is sitting up in the chair. Patient reports his abdominal pain is tolerable. Tolerating diet. No nausea or vomiting. TAHMINA DC yesterday. WBC 15.3. Hemoglobin 11.7.Oxygen has been weaned down to 4L. PHYSICAL EXAM: VITAL SIGNS: Reviewed. GENERAL: Well-developed in no acute distress. HEENT: No sclera icterus. Extraocular movements grossly intact. Moist buccal mucosa. Head is atraumatic, normocephalic. ABDOMEN: Soft. Nondistended. Dressing clean dry intact. NEUROLOGIC: Alert and oriented. Cranial nerves II through XII grossly intact. ASSESSMENT: 1. Perforated duodenal ulcer, status post exploratory laparotomy with repair of perforated duodenal ulcer and repair of incarcerated umbilical hernia PLAN: 1. Continue current diet 2. Monitor WBC. Continue antibiotics. 3. Wound care. Dressing to be changed today per nursing. 4. Incentive spirometry 5. Activity as tolerated. 6. Pulmonary and infectious disease following. Nurse practitioner note has been reviewed by physician. Signing provider agrees with the documented findings, assessment, and plan of care. Objective - Vital Signs Vital signs: Vital Signs Temp 97.2 F L 02/05/19 07:37 Pulse 88 02/05/19 08:27 Resp 18 02/05/19 08:00 BP 109/70 02/05/19 07:37 Pulse Ox 92 L 02/05/19 07:37 Intake & Output 02/04/19 02/05/19 02/05/19 18:59 06:59 18:59 Intake Total 486 358 716 Balance 486 358 716 Intake: Oral 486 358 716 Other: Voiding Method Bedside Commode Bedside Commode Urinal Urinal # Voids 1 ABP, PAP, CO, CI - Last Documented Arterial Blood Pressure 146/47 - Labs CBC & Chem 7: 02/05/19 05:38 02/05/19 05:38 Labs: Abnormal Lab Results - Last 24 Hours (Table) 02/04/19 02/04/19 02/04/19 Range/Units 11:27 16:55 20:37 WBC (3.8-10.6) k/uL RBC (4.30-5.90) m/uL Hgb (13.0-17.5) gm/dL Hct (39.0-53.0) % MCHC (31.0-37.0) g/dL RDW (11.5-15.5) % Plt Count (150-450) k/uL Neutrophils # (1.3-7.7) k/uL Chloride (98-107) mmol/L Carbon Dioxide (22-30) mmol/L BUN (9-20) mg/dL POC Glucose (mg/dL) 146 H 106 H 194 H (75-99) mg/dL Calcium (8.4-10.2) mg/dL 02/05/19 02/05/19 02/05/19 Range/Units 05:38 05:38 07:38 WBC 15.3 H (3.8-10.6) k/uL RBC 3.97 L (4.30-5.90) m/uL Hgb 11.7 L (13.0-17.5) gm/dL Hct 38.4 L (39.0-53.0) % MCHC 30.4 L (31.0-37.0) g/dL RDW 17.4 H (11.5-15.5) % Plt Count 466 H (150-450) k/uL Neutrophils # 12.5 H (1.3-7.7) k/uL Chloride 92 L (98-107) mmol/L Carbon Dioxide 45 H* (22-30) mmol/L BUN 21 H (9-20) mg/dL POC Glucose (mg/dL) 107 H (75-99) mg/dL Calcium 8.1 L (8.4-10.2) mg/dL
[2019-02-05 11:43] LABS: Glucose,Whole Blood 136 mg/dL (75-99)
--- NOTE | 2019-02-05 13:20 | P.PN ---
Subjective Progress Note Date: 02/05/19 Principal diagnosis: Acute pneumoperitoneum secondary to perforated duodenal ulcer 68-year-old male patient came into the emergency department with a one-week history of abdominal pain. He initially went to [facility] emergency department with a CAT scan was done and the patient was told to have diverticulosis without diverticulitis. Over the past week, the patient developed progressive worsening his abdominal discomfort and today came into the emergency department having more pain and the pain was rather diffuse in nature. He had diminished appetite, diminished oral intake and he was having no significant bowel movements. No GI bleeding. Denies having any fever or chills. He was nauseated when he was getting progressively more lethargic and weak and short of breath. CAT scan of the abdomen was done in the emergency department and showed significant inflammatory changes in the epigastric region involving posterior aspect of the proximal transverse colon. There was evidence of pneumoperitoneum around that along with some inflammatory changes as well as some free fluid in the abdomen. The stomach itself appeared to be within normal limits. The patient has long-term history of COPD and pulmonary fibrosis. Based on his pulmonary function test in 2017 he has an FVC of 72% and FEV1 of 46% and he has been steroid dependent for the past few years taking prednisone a daily basis. He has also underlying rheumatoid arthritis and previously he was taking immunosuppression with Humira none for now. His oxygen dependent. Blood work showed a white cell count 16.2 with a hemoglobin of 14.9. Platelet count is at 519. He has a BUN of 27 creatinine of 0.7 and lactic acid was at 1.9 with a troponin being less than 0.01. LFTs are all within normal limits. He is tachycardic with temperature 98.2. He was having sinus tachycardia with a heart rate of 120. He is currently on 5 L of oxygen by nasal cannula with a pulse ox of 90%. The patient will be taken to the operating room. He was seen by the surgical team following that I've advised the patient coming back to the intensive care unit for further evaluation and treatment. He may need to be kept intubated overnight. On 01/26/2019, the patient is postop day #4. The patient is doing well. He is awake and alert. History requiring high flow oxygen at 10 L. He doesn't have much reserve and he desaturates easily. NG tube was removed yesterday and this morning the patient was given some clear liquid diet. Surgical wound site is clean. Output from the TAHMINA drain is minimal in the order of 30 mL over the past 24 hours. Surgical wound site is dry clean and intact. He is passing flatus. No bowel activity as. He remains on IV Zosyn. He is using incentive spirometer. He is on status post hydrocortisone. He is awake and alert. He has pseudomonas aeruginosa in his sputum for which she is covered with IV Zosyn. No other significant events overnight. Patient was reevaluated today on 01/27/2019, remains on high flow nasal cannula 7 L/m, continues to have significantly abnormal chest x-ray with diffuse interstitial lung disease consistent with pulmonary fibrosis, underlying pneumonia is not entirely ruled out. His FiO2 is being titrated down, patient is noted to be short of breath with any activity. His sputum was positive for pseudomonas aeruginosa, remains on Zosyn. All labs were reviewed today, potassium is a bit low at 3.2 being corrected as per protocol. Patient was reevaluated today on 01/28/2019, remains on high flow nasal cannula, 90 L/m, patient is basically about the same, chest x-ray is basically about the same showing bibasilar interstitial lung disease consistent with pulmonary fibrosis. Again underlying pneumonia is not entirely ruled out but felt to be less likely. Patient is hemodynamically stable, in no distress, being treated f or pseudomonas aeruginosa in the sputum, remains on Zosyn. CBC is relatively normal WBC count is 10.5 hemoglobin is 11.5 light was normal except for low potassium being corrected as per protocol. Patient continues to have good urine output. Reevaluated today on 01/29/2019, remains in the ICU, he is presently overflow from selective. Patient remains on 8 L high flow nasal cannula, pulmonary stat us remains marginal. Overall it is better than expected considering his underlying COPD and underlying interstitial lung disease. Patient seems to be recovering slowly. Last chest x-ray showed basically chronic changes of COPD and interstitial lung disease. Underlying pneumonia is definitely not entirely ruled out. Patient had positive Pseudomonas in the sputum and he is being treated as such. Electrolytes are normal except for low potassium being corrected as per protocol. The patient himself denies shortness of breath, denies any pain, he is complaining of significant swelling in his upper and lower extremities, hence I initiated diuretics today. On 01/30/2019 patient seen in follow-up on medical surgical floor. He is awake and alert, in no acute distress, he is on 6 L of oxygen, with a pulse ox of 95- 96%, he is afebrile, hemodynamically stable. Work on his incentive spirometer, achieving about 1000 on the today. This is postop day 8 status post exploratory laparotomy with repair of the perforated duodenal ulcer and repair of the incarcerated umbilical hernia. he is doing well, he was started on some oral Lasix yesterday, for generalized anasarca, and he is in -1869 mL fluid balance over the last 24 hours. Still has quite a bit of swelling in his upper and lower extremities. His lab work has been reviewed, showing white blood cell count of 20.9, hemoglobin of 11.6, serum sodium is 136, potassium is 2.7, this being replaced per protocol, chloride is 95, CO2 39, creatinine of 0.57 and BUN of 13. Patient is tolerating oral intake, he is passing bowel movements. No new chest x-rays today The patient is seen today 01/31/2019 in follow-up on the regular medical floor. He is awake and alert in no acute distress. Currently sitting up at the bedside. Currently on 6 L high flow nasal cannula. He utilizes 3.5 L at home. He is afebrile. Hemodynamically stable. White count 30.9. Hemoglobin 13.0. Creatinine 0.54. Remains on Zosyn, Solu-Cortef, DuoNeb inhalations. On 02/01/2019 patient seen in follow-up on medical surgical floor. He sitting up in the recliner, in no acute distress, was on 15 L high flow oxygen this morning, and his pulse ox was 88-91%, was encouraged to deep breathe and cough, and oxygen level did come up to 97%, we will start weaning FiO2, encouraged deep breathing and coughing, patient is pulling of 1000 ML on his incentive spirometer, no fever or chills, lung sounds reveal good air entry bilaterally, no significant wheezes or rhonchi, there are bilateral crackles at the bases, but they are limited. We will obtain follow-up chest x-ray today, he is on maintenance dose of oral Lasix at 20 mg twice daily, antibiotic coverage in the form of Flagyl, and Zosyn, there has been no fever, no chills, hemodynamically stable. He remains on stress doses of hydrocortisone, we will start weaning it down, patient is normally on prednisone 10 mg daily for his history of COPD. Tolerating oral diet, no nausea vomiting or diarrhea, mid abdominal incision is intact, tension sutures are intact, bowel sounds are active, surgery is following, CT of abdomen and pelvis showed decrease in fluid accumulation involving the small bowel mesentery, no evidence of any fluid collection, there is a reduction of the umbilical hernia compared to last exam, and stable sigmoid diverticulosis without diverticulitis. It also showed patchy bilateral basilar pulmonary infiltrates and atelectasis and pleural fluid. On 02/02/2090 patient seen in follow-up on medical surgical floor. He is awake and alert, in no acute distress, currently down to 8 L, with a pulse ox of 92%, he is afebrile, hemodynamically stable, lung sounds reveal coarse basilar crackles over posterior lower lobes. No fever or chills, today's labs have been reviewed, white blood cell count is trending down, down to 22.1, hemoglobin is 12.0, sodium is 137, potassium is 2.8, chloride is 89, CO2 25, BUN is 16 creatinine 0.57. Today's chest x-ray shows bibasilar opacities and trace pleural effusions. He is working on his incentive spirometry. I&O's are difficult to estimate as the patient is voiding, The weight is actually up 0.5 kg. And patient still has quite significant amount of generalized edema. The patient is seen today 02/03/2019 in follow-up on the regular medical floor. He is currently sitting up in a chair at the bedside. Awake and alert in no acute distress. He denies any worsening shortness of breath, cough or congestion. 6 L high flow nasal cannula with O2 saturations in the low 90s. He is afebrile. Hemodynamically stable. Chest x-ray reveals suspected underlying interstitial lung disease. Difficult to exclude basilar airspace disease versus atelectasis. He continues to work well with the incentive spirometer. Sputum was positive for pseudomonas aeruginosa. He is currently on Zosyn. He also remains on IV diuretics. White count 19.4. Hemoglobin 11.7. Potassium 2.7. Bicarb 47. Creatinine 0.55. On 02/04/2019 patient seen in follow-up on medical surgical floor. Doing better, breathing easier, fluid volume status is improving, less edema in bilateral lower extremities and upper extremities. Lung sounds reveal coarse crackles, patient remains on 6 L of oxygen. Yesterday's chest x-ray has been reviewed, showing bibasilar opacities and trace pleural effusions. Patient is working on incentive spirometer, he is maintaining negative fluid balance. Today's labs have been reviewed, showed a white blood cell count of 13.1, hemoglobin is 11.9, serum sodium is 140, potassium is 3.2, chloride is 90, CO2 is 47, B1 of 18, creatinine 0.58. Serum potassium is being replaced per protocol. Patient remains on Zosyn for pseudomonas aeruginosa in the sputum cultures, remains on Flagyl, and IV hydrocortisone which we are weaning right now. The patient is seen today 02/05/2019 in follow-up on the regular medical floor. He is currently sitting up in a chair at the bedside. Awake and alert in no acute distress. Breathing easier today as compared to yesterday. Currently maintaining O2 saturations in the 90s on 4 L/m per nasal cannula. Sputum was positive for pseudomonas aeruginosa. Urine culture negative. Blood culture negative. White count 15.3. Hemoglobin 11.7. Bicarb 45. Creatinine 0.75. Remains on DuoNeb inhalations, IV diuretics, Flagyl and Zosyn. Objective - Vital Signs Vital signs: Vital Signs Temp 97.2 F L 02/05/19 07:37 Pulse 104 H 02/05/19 12:48 Resp 18 02/05/19 08:00 BP 109/70 02/05/19 07:37 Pulse Ox 92 L 02/05/19 07:37 Intake & Output 02/04/19 02/05/19 02/05/19 18:59 06:59 18:59 Intake Total 486 358 716 Balance 486 358 716 Intake: Oral 486 358 716 Other: Voiding Method Bedside Commode Bedside Commode Urinal Urinal # Voids 1 ABP, PAP, CO, CI - Last Documented Arterial Blood Pressure 146/47 - Exam GENERAL EXAM: Alert, pleasant, 68-year-old male, on 4 L of oxygen, comfortable in no apparent distress. HEAD: Normocephalic/atraumatic. EYES: Normal reaction of pupils, equal size. Conjunctiva pink, sclera white. NOSE: Clear with pink turbinates. THROAT: No erythema or exudates. NECK: No masses, no JVD, no thyroid enlargement, no adenopathy. CHEST: Symmetric with equal expansion LUNGS: Equal air entry with diminished breath sounds, and basilar rales CVS: Regular rate and rhythm, normal S1 and S2, no gallops, no murmurs, no rubs ABDOMEN: Soft, nontender. No hepatosplenomegaly, normal bowel sounds, no guarding or rigidity. EXTREMITIES: No clubbing, generalized edema, no cyanosis, 2+ pulses and upper and lower extremities. MUSCULOSKELETAL: Muscle strength and tone normal. SPINE: No scoliosis or deformity SKIN: No rashes CENTRAL NERVOUS SYSTEM: No focal deficits, tone is normal in all 4 extremities. PSYCHIATRIC: Alert and oriented -3. Appropriate affect. Intact judgment and insight. - Labs CBC & Chem 7: 02/05/19 05:38 02/05/19 05:38 Labs: Abnormal Lab Results - Last 24 Hours (Table) 02/04/19 02/04/19 02/05/19 Range/Units 16:55 20:37 05:38 WBC 15.3 H (3.8-10.6) k/uL RBC 3.97 L (4.30-5.90) m/uL Hgb 11.7 L (13.0-17.5) gm/dL Hct 38.4 L (39.0-53.0) % MCHC 30.4 L (31.0-37.0) g/dL RDW 17.4 H (11.5-15.5) % Plt Count 466 H (150-450) k/uL Neutrophils # 12.5 H (1.3-7.7) k/uL Chloride (98-107) mmol/L Carbon Dioxide (22-30) mmol/L BUN (9-20) mg/dL POC Glucose (mg/dL) 106 H 194 H (75-99) mg/dL Calcium (8.4-10.2) mg/dL 02/05/19 02/05/19 02/05/19 Range/Units 05:38 07:38 11:35 WBC (3.8-10.6) k/uL RBC (4.30-5.90) m/uL Hgb (13.0-17.5) gm/dL Hct (39.0-53.0) % MCHC (31.0-37.0) g/dL RDW (11.5-15.5) % Plt Count (150-450) k/uL Neutrophils # (1.3-7.7) k/uL Chloride 92 L (98-107) mmol/L Carbon Dioxide 45 H* (22-30) mmol/L BUN 21 H (9-20) mg/dL POC Glucose (mg/dL) 107 H 136 H (75-99) mg/dL Calcium 8.1 L (8.4-10.2) mg/dL Assessment and Plan Assessment: Assessment: 1 acute pneumoperitoneum secondary to perforation of duodenal ulcer status post duodenal ulcer repair and incarcerated umbilical hernia 2 advanced COPD and severe pulmonary fibrosis with chronic hypoxic respiratory failure 3 history of rheumatoid arthritis 4 obstructive sleep apnea syndrome not compliant with CPAP. 5 chronic back pain 6 osteoarthritis 7 pseudomonas aeruginosa in the sputum, could be a colonization or could be se condary to pseudomonal pneumonia. Best to continue antibiotics at present since the patient's pulmonary status is rather marginal. 8 acute on chronic hypoxic respiratory failure multifactorial mostly related to his COPD, pulmonary fibrosis, and suspect some component of pneumonia/pseudomonal pneumonia. Plan: The patient was seen and evaluated by Dr. Weaver. He is improved from the pulmonary standpoint. Remains on 4 L high flow nasal cannula. Continue the current treatment plan. Increase his activity as tolerated. We'll continue to follow. I, the cosigning physician, performed a history & physical examination of the patient. Lungs sounds crackles in the bilateral posterior bases, diminished. Maintaining good O2 saturations in the 90s on 4 L high flow nasal cannula. I discussed the assessment and plan of care with my nurse practitioner, Priscilla Mike. I attest to the above note as dictated by her.
--- NOTE | 2019-02-05 14:15 | PN ---
PROGRESS NOTE DATE OF SERVICE: 02/05/2019 This is a 68-year-old gentleman who was admitted with multiple medical problems including acute duodenal ulcer perforation and surgery and as well as COPD is improving significantly. The patient also had Pseudomonas grown from the culture. No chest pain. No palpitations. No fever. Patient still has some shortness of breath, saturating satisfactorily at 4 L nasal cannula. PHYSICAL EXAM: Alert and oriented x3. Pulse is 88, blood pressure 109/87, respiration 18, temperature 97.2, pulse ox 98% on 4 L. HEENT: Conjunctivae normal. NECK: No jugular venous distension. CARDIOVASCULAR: S1, S2, muffled. RESPIRATION: Breath sounds diminished at the bases, bilateral scattered rhonchi, no crackles. ABDOMEN: Soft, status post surgery. LEGS: No edema, no swelling. NERVOUS SYSTEM: No focal deficits. LABS: WBC is 15.8, hemoglobin 11.7, sodium 140, potassium 3.6, CO2 is 45. ASSESSMENT: 1. Acute duodenal ulcer perforation with pneumoperitoneum, status post exploratory laparotomy and repair of perforated duodenal ulcer and repair of incarcerated umbilical hernia. 2. Advanced chronic obstructive pulmonary disease with severe pulmonary fibrosis, acute on chronic hypoxic respiratory failure. 3. Chronic hypoxic respiratory failure on 3 L nasal cannula at home. 4. History of rheumatoid arthritis, history of gait dysfunction and generalized asthenia. 5. History of sleep apnea. 6. Chronic back pain, degenerative joint disease. 7. Pseudomonas aeruginosa in the sputum. 8. Increased WBC. 9. Anemia of chronic disease. 10.Severe hypokalemia. 11.Hyperlipidemia. 12.History of sleep apnea. 13.Pneumonia. 14.History of anxiety, depression. 15.Remote history of nicotine dependence. 16.FULL CODE. RECOMMENDATION: In this 68-year-old gentleman who presented with multiple complex medical issues, will monitor the patient closely, continue with the current management and symptomatic treatment. Otherwise, continue with steroids. Continue with bronchodilators. Continue the antibiotics. Closely follow with multiple consultants. Increase ambulation. Pain medications. Further recommendations to follow. Closely follow with Surgery. MMARNULFOL / DANILON: [id number] /
[2019-02-05 17:04] LABS: Glucose,Whole Blood 111 mg/dL (75-99)
[2019-02-05 20:19] LABS: Glucose,Whole Blood 122 mg/dL (75-99)
--- NOTE | 2019-02-05 20:42 | PN ---
PROGRESS NOTE DATE OF SERVICE: 02/05/2019. REASON FOR FOLLOW UP: Secondary peritonitis from perforated duodenal ulcer. INTERVAL HISTORY: The patient is currently afebrile. The patient has been breathing comfortably. No chest pain, shortness of breath or cough. No worsening abdominal pain or any diarrhea. PHYSICAL EXAMINATION: Blood pressure is 105/60 with a pulse of 112, temperature 98. He is 91% on 4 L. General description is an elderly male lying in bed in no distress. Respiratory system: Unlabored breathing. Clear to auscultation anteriorly. HEART S1, S2. Regular rate and rhythm. ABDOMEN: Soft, no tenderness. LABS: Hemoglobin 11.7, WBC 15.3, BUN of 21, creatinine 0.75. DIAGNOSTIC IMPRESSION AND PLAN: Patient with a perforated duodenal ulcer, status post laparotomy and repair of . Currently covered with Zosyn and Diflucan who which the patient has tolerated. Transition to a short course of oral Augmentin, Diflucan for about a week with close outpatient followup. MMODL / IJN: [id number] /
[2019-02-05] MEDS: TEMAZEPAM 15 MG CAP PO PRN (22:30)
[2019-02-06] MEDS: FUROSEMIDE 10 MG/ML 4 ML VIAL IV SCH ×2 (00:28→11:19)
[2019-02-06] MEDS: HEPARIN SODIUM,PORCINE 5,000 UNIT/ML 1 ML VIAL SQ SCH ×2 (00:28→08:52)
[2019-02-06] MEDS: PIPERACILLIN-TAZOBACTAM 3.375 GM in SODIUM CHLORIDE 0.9% 100 ML IVPB SCH ×2 (00:28→08:52)
[2019-02-06] MEDS: IPRATROPIUM-ALBUTEROL 3 ML NEB INHALATION SCH ×3 (01:14→12:04)
[2019-02-06 01:32] VITALS: RESP 16
[2019-02-06] MEDS: HYDROcodone/APAP 5-325MG 1 EACH TAB PO PRN ×2 (06:14→11:52)
[2019-02-06 06:59] LABS: Glucose,Whole Blood 81 mg/dL (75-99)
[2019-02-06 07:46] VITALS: BP 124/86; TEMP 97.5
--- NOTE | 2019-02-06 08:18 | P.PN ---
Subjective Progress Note Date: 02/06/19 Principal diagnosis: Acute pneumoperitoneum secondary to perforated duodenal ulcer 68-year-old male patient came into the emergency department with a one-week history of abdominal pain. He initially went to [facility] emergency department with a CAT scan was done and the patient was told to have diverticulosis without diverticulitis. Over the past week, the patient developed progressive worsening his abdominal discomfort and today came into the emergency department having more pain and the pain was rather diffuse in nature. He had diminished appetite, diminished oral intake and he was having no significant bowel movements. No GI bleeding. Denies having any fever or chills. He was nauseated when he was getting progressively more lethargic and weak and short of breath. CAT scan of the abdomen was done in the emergency department and showed significant inflammatory changes in the epigastric region involving posterior aspect of the proximal transverse colon. There was evidence of pneumoperitoneum around that along with some inflammatory changes as well as some free fluid in the abdomen. The stomach itself appeared to be within normal limits. The patient has long-term history of COPD and pulmonary fibrosis. Based on his pulmonary function test in 2017 he has an FVC of 72% and FEV1 of 46% and he has been steroid dependent for the past few years taking prednisone a daily basis. He has also underlying rheumatoid arthritis and previously he was taking immunosuppression with Humira none for now. His oxygen dependent. Blood work showed a white cell count 16.2 with a hemoglobin of 14.9. Platelet count is at 519. He has a BUN of 27 creatinine of 0.7 and lactic acid was at 1.9 with a troponin being less than 0.01. LFTs are all within normal limits. He is tachycardic with temperature 98.2. He was having sinus tachycardia with a heart rate of 120. He is currently on 5 L of oxygen by nasal cannula with a pulse ox of 90%. The patient will be taken to the operating room. He was seen by the surgical team following that I've advised the patient coming back to the intensive care unit for further evaluation and treatment. He may need to be kept intubated overnight. On 01/26/2019, the patient is postop day #4. The patient is doing well. He is awake and alert. History requiring high flow oxygen at 10 L. He doesn't have much reserve and he desaturates easily. NG tube was removed yesterday and this morning the patient was given some clear liquid diet. Surgical wound site is clean. Output from the TAHMINA drain is minimal in the order of 30 mL over the past 24 hours. Surgical wound site is dry clean and intact. He is passing flatus. No bowel activity as. He remains on IV Zosyn. He is using incentive spirometer. He is on status post hydrocortisone. He is awake and alert. He has pseudomonas aeruginosa in his sputum for which she is covered with IV Zosyn. No other significant events overnight. Patient was reevaluated today on 01/27/2019, remains on high flow nasal cannula 7 L/m, continues to have significantly abnormal chest x-ray with diffuse interstitial lung disease consistent with pulmonary fibrosis, underlying pneumonia is not entirely ruled out. His FiO2 is being titrated down, patient is noted to be short of breath with any activity. His sputum was positive for pseudomonas aeruginosa, remains on Zosyn. All labs were reviewed today, potassium is a bit low at 3.2 being corrected as per protocol. Patient was reevaluated today on 01/28/2019, remains on high flow nasal cannula, 90 L/m, patient is basically about the same, chest x-ray is basically about the same showing bibasilar interstitial lung disease consistent with pulmonary fibrosis. Again underlying pneumonia is not entirely ruled out but felt to be less likely. Patient is hemodynamically stable, in no distress, being treated f or pseudomonas aeruginosa in the sputum, remains on Zosyn. CBC is relatively normal WBC count is 10.5 hemoglobin is 11.5 light was normal except for low potassium being corrected as per protocol. Patient continues to have good urine output. Reevaluated today on 01/29/2019, remains in the ICU, he is presently overflow from selective. Patient remains on 8 L high flow nasal cannula, pulmonary stat us remains marginal. Overall it is better than expected considering his underlying COPD and underlying interstitial lung disease. Patient seems to be recovering slowly. Last chest x-ray showed basically chronic changes of COPD and interstitial lung disease. Underlying pneumonia is definitely not entirely ruled out. Patient had positive Pseudomonas in the sputum and he is being treated as such. Electrolytes are normal except for low potassium being corrected as per protocol. The patient himself denies shortness of breath, denies any pain, he is complaining of significant swelling in his upper and lower extremities, hence I initiated diuretics today. On 01/30/2019 patient seen in follow-up on medical surgical floor. He is awake and alert, in no acute distress, he is on 6 L of oxygen, with a pulse ox of 95- 96%, he is afebrile, hemodynamically stable. Work on his incentive spirometer, achieving about 1000 on the today. This is postop day 8 status post exploratory laparotomy with repair of the perforated duodenal ulcer and repair of the incarcerated umbilical hernia. he is doing well, he was started on some oral Lasix yesterday, for generalized anasarca, and he is in -1869 mL fluid balance over the last 24 hours. Still has quite a bit of swelling in his upper and lower extremities. His lab work has been reviewed, showing white blood cell count of 20.9, hemoglobin of 11.6, serum sodium is 136, potassium is 2.7, this being replaced per protocol, chloride is 95, CO2 39, creatinine of 0.57 and BUN of 13. Patient is tolerating oral intake, he is passing bowel movements. No new chest x-rays today On 02/01/2019 patient seen in follow-up on medical surgical floor. He sitting up in the recliner, in no acute distress, was on 15 L high flow oxygen this morning, and his pulse ox was 88-91%, was encouraged to deep breathe and cough, and oxygen level did come up to 97%, we will start weaning FiO2, encouraged deep breathing and coughing, patient is pulling of 1000 ML on his incentive spirometer, no fever or chills, lung sounds reveal good air entry bilaterally, no significant wheezes or rhonchi, there are bilateral crackles at the bases, but they are limited. We will obtain follow-up chest x-ray today, he is on maintenance dose of oral Lasix at 20 mg twice daily, antibiotic coverage in the form of Flagyl, and Zosyn, there has been no fever, no chills, hemodynamically stable. He remains on stress doses of hydrocortisone, we will start weaning it down, patient is normally on prednisone 10 mg daily for his history of COPD. Tolerating oral diet, no nausea vomiting or diarrhea, mid abdominal incision is intact, tension sutures are intact, bowel sounds are active, surgery is following, CT of abdomen and pelvis showed decrease in fluid accumulation involving the small bowel mesentery, no evidence of any fluid collection, there is a reduction of the umbilical hernia compared to last exam, and stable sigmoid diverticulosis without diverticulitis. It also showed patchy bilateral basilar pulmonary infiltrates and atelectasis and pleural fluid. On 02/02/2090 patient seen in follow-up on medical surgical floor. He is awake and alert, in no acute distress, currently down to 8 L, with a pulse ox of 92%, he is afebrile, hemodynamically stable, lung sounds reveal coarse basilar crackles over posterior lower lobes. No fever or chills, today's labs have been reviewed, white blood cell count is trending down, down to 22.1, hemoglobin is 12.0, sodium is 137, potassium is 2.8, chloride is 89, CO2 25, BUN is 16 creatinine 0.57. Today's chest x-ray shows bibasilar opacities and trace pleural effusions. He is working on his incentive spirometry. I&O's are difficult to estimate as the patient is voiding, The weight is actually up 0.5 kg. And patient still has quite significant amount of generalized edema. On 02/04/2019 patient seen in follow-up on medical surgical floor. Doing better, breathing easier, fluid volume status is improving, less edema in bilateral lower extremities and upper extremities. Lung sounds reveal coarse crackles, patient remains on 6 L of oxygen. Yesterday's chest x-ray has been reviewed, showing bibasilar opacities and trace pleural effusions. Patient is working on incentive spirometer, he is maintaining negative fluid balance. Today's labs have been reviewed, showed a white blood cell count of 13.1, hemogl obin is 11.9, serum sodium is 140, potassium is 3.2, chloride is 90, CO2 is 47, B1 of 18, creatinine 0.58. Serum potassium is being replaced per protocol. Patient remains on Zosyn for pseudomonas aeruginosa in the sputum cultures, remains on Flagyl, and IV hydrocortisone which we are weaning right now. On 02/06/2019 patient seen in follow-up on medical surgical floor. He is awake and alert, sitting on the edge of the bed, in no acute distress, FiO2 is down to 4 L, with a pulse ox of 97%, afebrile, hemodynamically patient is stable. Pulmonary perspective patient is improving, he has been given IV diuretics for 48 hours, lower extremity edema and generalized edema improving, fluid volume status improving. There has been no weight in the last 72 hours, but overall generalized edema has improved. Continues on Zosyn for pseudomonas aeruginosa in the sputum, continues on Flagyl and Diflucan. Clinically patient is stable, no acute events overnight, he is on his home dose FiO2. Worsening dyspnea, he is working on his incentive spirometer, lung sounds reveal some minimal rales at the bases. Vital signs are stable. Objective - Vital Signs Vital signs: Vital Signs Temp 97.5 F L 02/06/19 07:00 Pulse 113 H 02/06/19 07:00 Resp 16 02/06/19 07:00 BP 124/86 02/06/19 07:00 Pulse Ox 90 L 02/06/19 07:00 Intake & Output 02/05/19 02/06/19 02/06/19 18:59 06:59 18:59 Intake Total 1432 Balance 1432 Intake: Oral 1432 Other: Voiding Method Bedside Commode Urinal # Voids 1 ABP, PAP, CO, CI - Last Documented Arterial Blood Pressure 146/47 - Exam GENERAL EXAM: Alert, pleasant, 68-year-old white male, on 4 L of oxygen, comfortable in no apparent distress. HEAD: Normocephalic/atraumatic. EYES: Normal reaction of pupils, equal size. Conjunctiva pink, sclera white. NOSE: Clear with pink turbinates. THROAT: No erythema or exudates. NECK: No masses, no JVD, no thyroid enlargement, no adenopathy. CHEST: No chest wall deformity. Symmetrical expansion. LUNGS: Equal air entry with diminished breath sounds, and basilar rales CVS: Regular rate and rhythm, normal S1 and S2, no gallops, no murmurs, no rubs ABDOMEN: Soft, nontender. No hepatosplenomegaly, normal bowel sounds, no guarding or rigidity. Midabdominal incision is clean dry and intact retention sutures are intact, TAHMINA drain is compressed, draining serosanguineous fluid EXTREMITIES: No clubbing, generalized edema, no cyanosis, 2+ pulses and upper and lower extremities. MUSCULOSKELETAL: Muscle strength and tone normal. SPINE: No scoliosis or deformity SKIN: No rashes CENTRAL NERVOUS SYSTEM: Alert and oriented -3. No focal deficits, tone is normal in all 4 extremities. PSYCHIATRIC: Alert and oriented -3. Appropriate affect. Intact judgment and insight. - Labs CBC & Chem 7: 02/05/19 05:38 02/05/19 05:38 Labs: Abnormal Lab Results - Last 24 Hours (Table) 02/05/19 02/05/19 02/05/19 Range/Units 11:35 16:51 20:17 POC Glucose (mg/dL) 136 H 111 H 122 H (75-99) mg/dL Assessment and Plan Plan: Assessment: 1 acute pneumoperitoneum secondary to perforation of duodenal ulcer status post treatment. Of duodenal ulcer and repair of incarcerated umbilical hernia postoperative day #11 2 advanced COPD and severe pulmonary fibrosis with chronic hypoxic respiratory failure 3 history of rheumatoid arthritis 4 obstructive sleep apnea syndrome not compliant with CPAP. 5 chronic back pain 6 osteoarthritis 7 pseudomonas aeruginosa in the sputum, could be a colonization or could be secondary to pseudomonal pneumonia. Best to continue antibiotics at present since the patient's pulmonary status is rather marginal. 8 acute on chronic hypoxic respiratory failure multifactorial mostly related to his COPD, pulmonary fibrosis, and suspect some component of pneumonia/pseudomonal pneumonia. Plan: Encourage deep breathing and coughing, ambulation, patient is doing well, continues to improve, improving in terms of dyspnea, and fluid volume status, folllow up labs are pending for today. Patient is on his home dose FiO2, no fever or chills, vital signs are stable, from pulmonary perspective he could be considered for discharge home today if cleared by surgery. We'll need follow-up in the office in 7-[address] Weaver. I performed a history & physical examination of the patient and discussed their management with my nurse practitioner, Stella Powers. I reviewed the nurse practitioner's note and agree with the documented findings and plan of care. Lung sounds are positive for diminished breath sounds, with basilar rales. The findings and the impression was discussed with the patient. I attest to the documentation by the nurse practitioner. Time with Patient: Less than 30
[2019-02-06] MEDS: INSULIN ASPART (NovoLOG) 100 UNIT/ML VIAL SQ SCH ×2 (08:36→11:52)
[2019-02-06] MEDS: FLUCONAZOLE 100 MG TAB PO SCH (08:51)
[2019-02-06] MEDS: metroNIDAZOLE 500 MG TAB PO SCH ×2 (08:51→13:05)
[2019-02-06] MEDS: predniSONE 10 MG TAB PO SCH (08:51)
[2019-02-06] MEDS: POTASSIUM CHLORIDE ER 20 MEQ TAB.ER PO SCH (08:51)
[2019-02-06] MEDS: PANTOPRAZOLE 40 MG TABLET PO SCH (08:52)
[2019-02-06] MEDS ORDERED: FUROSEMIDE 40 MG TAB PO SCH (09:00)
[2019-02-06 10:15] LABS: Blood Urea Nitrogen 20 mg/dL (9-20); Calcium 8.9 mg/dL (8.4-10.2); Chloride 93 mmol/L (98-107); Glucose 101 mg/dL (74-99); Potassium 5.5 mmol/L (3.5-5.1); Sodium 139 mmol/L (137-145)
[2019-02-06 10:22] LABS: Anion Gap 4 mmol/L
--- NOTE | 2019-02-06 10:24 | P.PN ---
Subjective Progress Note Date: 02/06/19 CHIEF COMPLAINT: Perforated duodenal ulcer HISTORY OF PRESENT ILLNESS: Patient seen and examined this morning. He is sitting up in the chair. Pain is tolerable. He is tolerating diet. Remains on 4L NC. PHYSICAL EXAM: VITAL SIGNS: Reviewed. GENERAL: Well-developed in no acute distress. HEENT: No sclera icterus. Extraocular movements grossly intact. Moist buccal mucosa. Head is atraumatic, normocephalic. ABDOMEN: Soft. Nondistended. Dressing clean dry intact. NEUROLOGIC: Alert and oriented. Cranial nerves II through XII grossly intact. ASSESSMENT: 1. Perforated duodenal ulcer, status post exploratory laparotomy with repair of perforated duodenal ulcer and repair of incarcerated umbilical hernia PLAN: Continue diet as tolerated Discontinue Telfa kyra to incision Remove every other staple today Stable for discharge home today Follow up with Dr. Levi in 1 week Patient to resume [address] 10mg at the time of discharge which he was taking prior to hospitalization. Patient agreeable. Nurse practitioner note has been reviewed by physician. Signing provider agrees with the documented findings, assessment, and plan of care. Objective - Vital Signs Vital signs: Vital Signs Temp 97.5 F L 02/06/19 07:00 Pulse 113 H 02/06/19 07:00 Resp 16 02/06/19 07:00 BP 124/86 02/06/19 07:00 Pulse Ox 90 L 02/06/19 07:00 Intake & Output 02/05/19 02/06/19 02/06/19 18:59 06:59 18:59 Intake Total 1432 Balance 1432 Intake: Oral 1432 Other: Voiding Method Bedside Commode Urinal # Voids 1 ABP, PAP, CO, CI - Last Documented Arterial Blood Pressure 146/47 - Labs CBC & Chem 7: 02/05/19 05:38 02/05/19 05:38 Labs: Abnormal Lab Results - Last 24 Hours (Table) 02/05/19 02/05/19 02/05/19 Range/Units 11:35 16:51 20:17 POC Glucose (mg/dL) 136 H 111 H 122 H (75-99) mg/dL
[2019-02-06 10:39] LABS: Carbon Dioxide 42 mmol/L (22-30)
[2019-02-06 11:37] LABS: Glucose,Whole Blood 95 mg/dL (75-99)
[2019-02-06 12:27] VITALS: PULSE 76
--- NOTE | 2019-02-06 14:03 | PN ---
PROGRESS NOTE DATE OF SERVICE: 02/06/2019 REASON FOR FOLLOWUP: Secondary peritonitis from a perforated duodenal ulcer. INTERVAL HISTORY: The patient is currently afebrile. The patient is currently breathing comfortably. Denies any chest pain. Occasional cough. No nausea or vomiting. No worsening abdominal pain or any diarrhea. PHYSICAL EXAMINATION: On physical examination, blood pressure is 124/86, pulse of 72, temperature 97.5. He is 90% on 4 L high-flow oxygen. General description is an elderly male up in the chair in no distress. RESPIRATORY SYSTEM: Unlabored breathing, Decreased breath sounds at the bases. No wheeze. HEART: S1, S2. Regular rate and rhythm. ABDOMEN: Soft, no tenderness. LABS: BUN of 20, creatinine 0.87. DIAGNOSTIC IMPRESSION AND PLAN: Patient with secondary peritonitis from perforated duodenal ulcer, status post repair possible pneumonia. The patient has shown overall clinical improvement. He will finish therapy with a short a course of oral Augmentin and Diflucan and a close outpatient followup. Continue supportive care. MMODL / IJN: [id number] /
--- NOTE | 2019-02-06 22:18 | DS ---
DISCHARGE SUMMARY FINAL DIAGNOSES: 1. Acute duodenal ulcer, perforated perforation with pneumoperitoneum, status post exploratory laparotomy, repair of perforated duodenal ulcer as well as repair of incarcerated umbilical hernia. 2. Advanced chronic obstructive pulmonary disease with severe pulmonary fibrosis, acute on chronic hypoxic respiratory failure. 3. Chronic hypoxic respiratory failure on 3 L nasal cannula at home. 4. History of rheumatoid arthritis. 5. History of gait dysfunction, generalized asthenia. 6. History of sleep apnea. 7. Chronic back pain, degenerative joint disease. 8. Pseudomonas aeruginosa in the sputum. 9. Increased WBC. 10.Anemia of chronic disease. 11.Severe hypokalemia. 12.Hyperlipidemia. 13.History of sleep apnea. 14.History of pneumonia. 15.History of anxiety, depression. 16.Remote history of nicotine dependence. 17.FULL CODE. DISCHARGE DISPOSITION: The patient is being discharged in stable condition with guarded prognosis. HISTORY OF PRESENT ILLNESS: This 68-year-old gentleman with a past medical history of multiple medical problems had duodenal ulcer perforation, multiple pulmonary problems causing hypoxic respiratory failure. The patient underwent surgery and subsequently treatment for the lung issues. Patient was seen by multiple consultants including Dr. Santos, Dr. Weaver, Dr. Sharma and Dr. Levi. The patient tolerated the procedure well. Patient improved significantly. On exam, vitals are stable. Cardiovascular: S1, S2. Respirations: A few scattered rhonchi and crackles. Abdomen is soft. Nervous System: No focal deficits. The patient also complains of depression. I recommend to resume the home dose of antidepressant at home and subsequently follow with Dr. Cheema for further evaluation and treatment. DISCHARGE ADVICE AND MEDICATIONS: 1. Diet is cardiac diet. 2. Activity limited until followup. 3. Follow up with Dr. Levi. 4. The rest of the recommendations per Dr. Levi from surgical point of view. 5. Follow up with Dr. Cheema in 2-3 days. 6. Follow up with Pulmonary as recommended. DISCHARGE MEDICATIONS: Are as follows: 1. Ativan 1 mg p.o. t.i.d. p.r.n. 2. [place] 10 mg q.8 p.r.n. 3. Tessalon Perles 100 mg t.i.d. p.r.n. 4. Augmentin 875 mg 1 p.o. b.i.d. for 4 days. 5. Diflucan 200 mg for 5 days. 6. DuoNeb q.i.d. 7. Flagyl 500 mg t.i.d. 8. K-Dur 40 mEq p.o. b.i.d. 9. Lasix 40 mg p.o. daily. 10.Prednisone 10 mg p.o. daily as before. 11.Protonix 40 mg with breakfast. 12.Symbicort 160/4.5 two puffs b.i.d. CBC and BMP in the outpatient setting. Once again, the patient is being discharged in stable condition with guarded prognosis. Total time taken 35 minutes. SIMIN / DANILON: [id number] /
== END 2019-02-06 14:12 | disposition home health service (06) | DRG 326 ==
LOC: EC 12:37 → 4MS4W 15:36 → 3SCARD 17:15 → 2SICU 18:30 → 4SSUR 01-29 13:38
PROVIDERS: ADMIT Internal Medicine; ATTEND Internal Medicine
PROC: 0WQF0ZZ Repair Abdominal Wall, Open Approach (ICD-10-PCS; 2019-01-22)
PROC: 0DQ90ZZ Repair Duodenum, Open Approach (ICD-10-PCS; principal; 2019-01-22 17:30)
PROC: 5A09357 Assistance with Respiratory Ventilation, Less than 24 Consecutive Hours, Continuous Positive Airway Pressure (ICD-10-PCS; 2019-01-23)
DX: K26.1 Acute duodenal ulcer with perforation (principal); K65.1 Peritoneal abscess; A41.9 Sepsis, unspecified organism; J96.21 Acute and chronic respiratory failure with hypoxia; K42.0 Umbilical hernia with obstruction, without gangrene; E87.2 Acidosis; J44.1 Chronic obstructive pulmonary disease with (acute) exacerbation; A04.72 Enterocolitis due to Clostridium difficile, not specified as recurrent; E78.5 Hyperlipidemia, unspecified; M06.9 Rheumatoid arthritis, unspecified; F41.9 Anxiety disorder, unspecified; F32.9 Major depressive disorder, single episode, unspecified; J84.10 Pulmonary fibrosis, unspecified; G47.33 Obstructive sleep apnea (adult) (pediatric); M19.90 Unspecified osteoarthritis, unspecified site; M54.9 Dorsalgia, unspecified; G89.29 Other chronic pain; E87.6 Hypokalemia; D63.8 Anemia in other chronic diseases classified elsewhere; K57.30 Diverticulosis of large intestine without perforation or abscess without bleeding; Z96.1 Presence of intraocular lens; B96.5 Pseudomonas (aeruginosa) (mallei) (pseudomallei) as the cause of diseases classified elsewhere; E83.41 Hypermagnesemia; T38.0X5A Adverse effect of glucocorticoids and synthetic analogues, initial encounter; D72.829 Elevated white blood cell count, unspecified; Z99.81 Dependence on supplemental oxygen; Z87.01 Personal history of pneumonia (recurrent); Z86.19 Personal history of other infectious and parasitic diseases; Z79.899 Other long term (current) drug therapy; Z79.52 Long term (current) use of systemic steroids; Z88.1 Allergy status to other antibiotic agents; Z87.891 Personal history of nicotine dependence; Z91.19 Patient's noncompliance with other medical treatment and regimen; Z99.89 Dependence on other enabling machines and devices; Z98.42 Cataract extraction status, left eye; Z98.41 Cataract extraction status, right eye; Z80.0 Family history of malignant neoplasm of digestive organs; Z80.6 Family history of leukemia; Z83.3 Family history of diabetes mellitus
CPT/HCPCS: 36415; 36600; 71045; 71046; 74177; 80048; 80053; 81001; 82150; 82805; 83605; 83690; 83735; 83880; 84100; 84132; 84484; 85025; 85027; 85610; 85730; 87040; 87070; 87077; 87086; 87186; 87205; 87324; 93005; 94002; 94003; 94640; 94660; 94760; 96361; 96365; 96366; 96375; 96376; 99285

== ENCOUNTER 2019-02-09 17:05 | Inpatient (IN) | payer MEDICARE, OTHER ==
[2019-02-09] MEDS ORDERED: MORPHINE SULFATE 2 MG/ML SYRINGE IVP STA (17:27)
[2019-02-09 17:41] LABS: Anisocytosis Slight; Basophils % (A) 0 %; Eosinophils # (A) 0.1 k/uL (0-0.7); Eosinophils % (A) 0 %; HCT 38.2 % (39.0-53.0); Lymphocytes # (A) 0.5 k/uL (1.0-4.8); Lymphocytes % (A) 3 %; MCH 30.2 pg (25.0-35.0); MCHC 31.3 g/dL (31.0-37.0); MCV 96.4 fL (80.0-100.0); Macrocytosis Slight; Mean Platelet Volume 6.7; Monocytes # (A) 0.3 k/uL (0-1.0); Monocytes % (A) 2 %; Neutrophils # (A) 13.5 k/uL (1.3-7.7); Neutrophils % (A) 94 %; Platelet Count 474 k/uL (150-450); RBC 3.97 m/uL (4.30-5.90); RDW 16.8 % (11.5-15.5); WBC 14.5 k/uL (3.8-10.6)
[2019-02-09 17:51] LABS: ABG Base Excess 3.2 mmol/L; ABG HCO3 27 mmol/L (21-25); ABG Oxygen Saturation 97.8 % (94-97); ABG PCO2 36 mmHg (35-45); ABG PH 7.48 (7.35-7.45); ABG PO2 100 mmHg (83-108); ABG TCO2 28 mmol/L (19-24); Allen Test Performed? Yes
[2019-02-09 17:54] LABS: ALT 37 U/L (21-72); AST 62 U/L (17-59); African American GFR (CKD) >90 (>60 ml/min/1.73 sqM); Albumin 2.7 g/dL (3.5-5.0); Alkaline Phosphatase 75 U/L (38-126); Anion Gap 7 mmol/L; Blood Urea Nitrogen 10 mg/dL (9-20); Calcium 7.9 mg/dL (8.4-10.2); Carbon Dioxide 23 mmol/L (22-30); Chloride 99 mmol/L (98-107); Glucose 161 mg/dL (74-99); Lipase 59 U/L (23-300); Phosphorus 2.7 mg/dL (2.5-4.5); Sodium 129 mmol/L (137-145); Total Bilirubin 0.6 mg/dL (0.2-1.3); Total Protein 5.6 g/dL (6.3-8.2)
[2019-02-09 17:55] LABS: Ammonia <9 umol/L (<30)
[2019-02-09 17:57] LABS: Potassium 4.9 mmol/L (3.5-5.1)
[2019-02-09 18:05] LABS: INR 0.9 (<1.2); Partial Thromboplastin Time 22.7 sec (22.0-30.0); Prothrombin Time 10.2 sec (9.0-12.0)
[2019-02-09 18:06] LABS: Lactic Acid, Venous 2.1 mmol/L (0.7-2.0)
--- NOTE | 2019-02-09 18:19 | ED ---
Weakness HPI - General Chief complaint: Weakness Stated complaint: poss sepsis Time Seen by Provider: 02/09/19 17:16 Source: patient Mode of arrival: EMS Limitations: no limitations - History of Present Illness Initial comments: This 68-year-old white male presents with his with the complaint of some weakness and confusion. The relates that he was just discharged 3 days ago after having a 15 day hospital stay. He had onset of his current symptoms 2 days ago. She relates that he normally is quite sharp but now is very confused. He is weak to the point where he cannot safely ambulate. She actually brought him to the detention this morning and they stated that he was ill the point that he needed to come to the emergency department. He was hospitalized for a perforated peptic ulcer and subsequent peritonitis. He apparently had an umbilical hernia. He apparently has multiple comorbidities and also is on oxygen daily. The denies any known fever. He has had a cough with occasional slight yellowish production. He states that his abdominal postsurgical pain is minimal. No other identifiable complaints or modifying fa ctors. - Related Data Home Medications Medication Instructions Recorded Confirmed LORazepam [Ativan] 1 mg PO TID PRN 02/04/18 02/09/19 HYDROcodone/APAP 10-325MG [[place] 1 tab PO Q8H PRN 01/22/19 02/09/19 10-325] Budesonide/Formoterol Fumarate 1 puff IH RT-BID 02/09/19 02/09/19 [Symbicort 160-4.5 Mcg Inhaler] Potassium Chloride [Klor-Con 20] 20 meq PO BID 02/09/19 02/09/19 Sertraline [Zoloft] 100 mg PO DAILY 02/09/19 02/09/19 Previous Rx's Medication Instructions Recorded predniSONE 10 mg PO DAILY #30 tab 02/05/18 Amoxic-Pot Clav 875-125Mg 1 tab PO Q12HR #8 tablet 02/06/19 [Augmentin 875-125] Fluconazole [Diflucan] 200 mg PO DAILY #5 tab 02/06/19 Furosemide [Lasix] 40 mg PO DAILY #30 tab 02/06/19 Ipratropium-Albuterol Nebulize 3 ml INHALATION RT-Q6H #120 02/06/19 [Duoneb 0.5 mg-3 mg/3 ml Soln] ampul.neb Pantoprazole [Protonix] 40 mg PO BOLA-BRKFST #30 tablet. 02/06/19 metroNIDAZOLE [Flagyl] 500 mg PO TID #10 tab 02/06/19 Allergies Allergy/AdvReac Type Severity Reaction Status Date / Time amoxicillin AdvReac Nausea & Verified 01/22/19 13:48 Vomiting Review of Systems ROS Statement: Those systems with pertinent positive or pertinent negative responses have been documented in the HPI. ROS Other: All systems not noted in ROS Statement are negative. Past Medical History Past Medical History: COPD, Hyperlipidemia, Osteoarthritis (OA), Pneumonia, Rheumatoid Arthritis (RA), Sleep Apnea/CPAP/BIPAP Additional Past Medical History / Comment(s): Pneumonia with sepsis twice-10/2017 and in 2016. 3.5L home o2, PATTY with no device (cannot tolerate), recently injured low back-saw Dr. Dye. Rheumatoid arthritis in bilateral hips,knees hands and back. History of Any Multi-Drug Resistant Organisms: None Reported Past Surgical History: Orthopedic Surgery Additional Past Surgical History / Comment(s): bilateral cataract removals with lens implants, left knee arthroscopy, colonoscopy, GI perforated ulcer. Past Anesthesia/Blood Transfusion Reactions: No Reported Reaction Past Psychological History: Anxiety, Depression Smoking Status: Former smoker Past Alcohol Use History: Daily Past Drug Use History: None Reported - Past Family History Father Family Medical History: Cancer Additional Family Medical History / Comment(s): Father of leukemia. Mother Family Medical History: Cancer, CVA/TIA, Dementia, Diabetes Mellitus Additional Family Medical History / Comment(s): Mother is 88yrs old. Cancer colon. General Exam - General Exam Comments Initial Comments: GENERAL: The patient is well nourished and well hydrated. VITAL SIGNS: Heart rate, blood pressure, respiratory rate reviewed as recorded in nurse's notes. EYES: Pupils are round and reactive. Extraocular movements are intact. No conjunctival / lid redness or swelling. ENT: No external evidence of injury, swelling, or ecchymosis. Airway is patent. Throat is clear. NECK: Nontender. No swelling or evidence of injury. No subcutaneous emphysema. Trachea is midline. No thyroid mass. HEART: Regular rate and rhythm. Good peripheral pulses. LUNGS/CHEST: Breath sounds clear and equal bilaterally. No rales, rhonchi, or wheezes. No ecchymosis, subcutaneous emphysema, or tenderness. ABDOMEN: There is a complex dressing noted over the anterior abdomen. There is only minimal tenderness upon palpation. No palpable masses or organomegaly. No peritoneal signs. No abdominal wall swelling or ecchymosis. EXTREMITIES: No extremity tenderness. Normal muscle tone and function. No thoracolumbar tenderness. NEUROLOGIC: Sensation is grossly intact. Cranial nerve exam reveals face is symmetrical, tongue is midline, speech is clear. SKIN: No abrasions or ecchymosis is noted. No induration or masses noted. PSYCHIATRIC: Alert and pleasant but confused at times. Limitations: no limitations Course Vital Signs 02/09/19 02/09/19 02/09/19 17:11 17:29 17:42 Temperature 97.1 F L Pulse Rate 104 H Respiratory 16 16 Rate Blood Pressure 110/65 110/65 O2 Sat by Pulse 97 Oximetry 02/09/19 02/09/19 18:00 19:00 Temperature Pulse Rate 96 93 Respiratory 21 22 Rate Blood Pressure 117/74 106/75 O2 Sat by Pulse 97 98 Oximetry Medical Decision Making - Medical Decision Making The patient was seen and examined. All diagnostics were reviewed. He did have a arterial blood gas done to evaluate his CO2. His CO2 is normal at 36.4. The vision also had an EKG done which shows a sinus tachycardia at a rate of 104 with occasional PVC. There is no acute ST-T wave changes noted. The ventricular rate is 104, CT intervals 1:30, QRS duration is 82, and the QTC inte rvals 481. The chest x-ray looks as though there is a left lower lobe pneumonia with final radiologic review pending. This looks slightly increased as compared to x-ray done last week. The laboratories reviewed and patient does have a leukocytosis and hyponatremia and elevated lactic acid. It is felt as though he with Dr. Holbrook and she is agreeable with admission, Levaquin, and vancomycin with pulmonology to consult. - Lab Data Result diagrams: 02/09/19 17:12 02/09/19 17:12 Lab Results 02/09/19 02/09/19 02/09/19 Range/Units 17:12 17:12 17:12 WBC 14.5 H (3.8-10.6) k/uL RBC 3.97 L (4.30-5.90) m/uL Hgb 12.0 L (13.0-17.5) gm/dL Hct 38.2 L (39.0-53.0) % MCV 96.4 (80.0-100.0) fL MCH 30.2 (25.0-35.0) pg MCHC 31.3 (31.0-37.0) g/dL RDW 16.8 H (11.5-15.5) % Plt Count 474 H (150-450) k/uL Neutrophils % 94 % Lymphocytes % 3 % Monocytes % 2 % Eosinophils % 0 % Basophils % 0 % Neutrophils # 13.5 H (1.3-7.7) k/uL Lymphocytes # 0.5 L (1.0-4.8) k/uL Monocytes # 0.3 (0-1.0) k/uL Eosinophils # 0.1 (0-0.7) k/uL Basophils # 0.0 (0-0.2) k/uL Anisocytosis Slight Macrocytosis Slight PT (9.0-12.0) sec INR (<1.2) APTT (22.0-30.0) sec Sample Site ABG pH (7.35-7.45) ABG pCO2 (35-45) mmHg ABG pO2 (83-108) mmHg ABG HCO3 (21-25) mmol/L ABG Total CO2 (19-24) mmol/L ABG O2 Saturation (94-97) % ABG Base Excess mmol/L Chris Test FiO2 % Sodium 129 L (137-145) mmol/L Potassium 4.9 (3.5-5.1) mmol/L Chloride 99 (98-107) mmol/L Carbon Dioxide 23 (22-30) mmol/L Anion Gap 7 mmol/L BUN 10 (9-20) mg/dL Creatinine 0.55 L (0.66-1.25) mg/dL Est GFR (CKD-EPI)AfAm >90 (>60 ml/min/1.73 sqM) Est GFR (CKD-EPI)NonAf >90 (>60 ml/min/1.73 sqM) Glucose 161 H (74-99) mg/dL Plasma Lactic Acid Steven 2.1 H* (0.7-2.0) mmol/L Calcium 7.9 L (8.4-10.2) mg/dL Phosphorus 2.7 (2.5-4.5) mg/dL Magnesium 2.0 (1.6-2.3) mg/dL Total Bilirubin 0.6 (0.2-1.3) mg/dL AST 62 H (17-59) U/L ALT 37 (21-72) U/L Alkaline Phosphatase 75 (38-126) U/L Ammonia <9 (<30) umol/L Troponin I (0.000-0.034) ng/mL NT-Pro-B Natriuret Pep pg/mL Total Protein 5.6 L (6.3-8.2) g/dL Albumin 2.7 L (3.5-5.0) g/dL Lipase 59 (23-300) U/L TSH 1.410 (0.465-4.680) mIU/L Urine Color Urine Appearance (Clear) Urine pH (5.0-8.0) Ur Specific [place] (1.001-1.035) Urine Protein (Negative) Urine Glucose (UA) (Negative) Urine Ketones (Negative) Urine Blood (Negative) Urine Nitrite (Negative) Urine Bilirubin (Negative) Urine Urobilinogen (<2.0) mg/dL Ur Leukocyte Esterase (Negative) 02/09/19 02/09/19 02/09/19 Range/Units 17:12 17:12 17:12 WBC (3.8-10.6) k/uL RBC (4.30-5.90) m/uL Hgb (13.0-17.5) gm/dL Hct (39.0-53.0) % MCV (80.0-100.0) fL MCH (25.0-35.0) pg MCHC (31.0-37.0) g/dL RDW (11.5-15.5) % Plt Count (150-450) k/uL Neutrophils % % Lymphocytes % % Monocytes % % Eosinophils % % Basophils % % Neutrophils # (1.3-7.7) k/uL Lymphocytes # (1.0-4.8) k/uL Monocytes # (0-1.0) k/uL Eosinophils # (0-0.7) k/uL Basophils # (0-0.2) k/uL Anisocytosis Macrocytosis PT 10.2 (9.0-12.0) sec INR 0.9 (<1.2) APTT 22.7 (22.0-30.0) sec Sample Site ABG pH (7.35-7.45) ABG pCO2 (35-45) mmHg ABG pO2 (83-108) mmHg ABG HCO3 (21-25) mmol/L ABG Total CO2 (19-24) mmol/L ABG O2 Saturation (94-97) % ABG Base Excess mmol/L Chris Test FiO2 % Sodium (137-145) mmol/L Potassium (3.5-5.1) mmol/L Chloride (98-107) mmol/L Carbon Dioxide (22-30) mmol/L Anion Gap mmol/L BUN (9-20) mg/dL Creatinine (0.66-1.25) mg/dL Est GFR (CKD-EPI)AfAm (>60 ml/min/1.73 sqM) Est GFR (CKD-EPI)NonAf (>60 ml/min/1.73 sqM) Glucose (74-99) mg/dL Plasma Lactic Acid Steven (0.7-2.0) mmol/L Calcium (8.4-10.2) mg/dL Phosphorus (2.5-4.5) mg/dL Magnesium (1.6-2.3) mg/dL Total Bilirubin (0.2-1.3) mg/dL AST (17-59) U/L ALT (21-72) U/L Alkaline Phosphatase (38-126) U/L Ammonia (<30) umol/L Troponin I <0.012 (0.000-0.034) ng/mL NT-Pro-B Natriuret Pep 304 pg/mL Total Protein (6.3-8.2) g/dL Albumin (3.5-5.0) g/dL Lipase (23-300) U/L TSH (0.465-4.680) mIU/L Urine Color Urine Appearance (Clear) Urine pH (5.0-8.0) Ur Specific [place] (1.001-1.035) Urine Protein (Negative) Urine Glucose (UA) (Negative) Urine Ketones (Negative) Urine Blood (Negative) Urine Nitrite (Negative) Urine Bilirubin (Negative) Urine Urobilinogen (<2.0) mg/dL Ur Leukocyte Esterase (Negative) 02/09/19 02/09/19 Range/Units 17:49 19:10 WBC (3.8-10.6) k/uL RBC (4.30-5.90) m/uL Hgb (13.0-17.5) gm/dL Hct (39.0-53.0) % MCV (80.0-100.0) fL MCH (25.0-35.0) pg MCHC (31.0-37.0) g/dL RDW (11.5-15.5) % Plt Count (150-450) k/uL Neutrophils % % Lymphocytes % % Monocytes % % Eosinophils % % Basophils % % Neutrophils # (1.3-7.7) k/uL Lymphocytes # (1.0-4.8) k/uL Monocytes # (0-1.0) k/uL Eosinophils # (0-0.7) k/uL Basophils # (0-0.2) k/uL Anisocytosis Macrocytosis PT (9.0-12.0) sec INR (<1.2) APTT (22.0-30.0) sec Sample Site LRA ABG pH 7.48 H (7.35-7.45) ABG pCO2 36 (35-45) mmHg ABG pO2 100 (83-108) mmHg ABG HCO3 27 H (21-25) mmol/L ABG Total CO2 28 H (19-24) mmol/L ABG O2 Saturation 97.8 H (94-97) % ABG Base Excess 3.2 mmol/L Chris Test Yes FiO2 36 % Sodium (137-145) mmol/L Potassium (3.5-5.1) mmol/L Chloride (98-107) mmol/L Carbon Dioxide (22-30) mmol/L Anion Gap mmol/L BUN (9-20) mg/dL Creatinine (0.66-1.25) mg/dL Est GFR (CKD-EPI)AfAm (>60 ml/min/1.73 sqM) Est GFR (CKD-EPI)NonAf (>60 ml/min/1.73 sqM) Glucose (74-99) mg/dL Plasma Lactic Acid Steven (0.7-2.0) mmol/L Calcium (8.4-10.2) mg/dL Phosphorus (2.5-4.5) mg/dL Magnesium (1.6-2.3) mg/dL Total Bilirubin (0.2-1.3) mg/dL AST (17-59) U/L ALT (21-72) U/L Alkaline Phosphatase (38-126) U/L Ammonia (<30) umol/L Troponin I (0.000-0.034) ng/mL NT-Pro-B Natriuret Pep pg/mL Total Protein (6.3-8.2) g/dL Albumin (3.5-5.0) g/dL Lipase (23-300) U/L TSH (0.465-4.680) mIU/L Urine Color Yellow Urine Appearance Clear (Clear) Urine pH 7.5 (5.0-8.0) Ur Specific [place] 1.010 (1.001-1.035) Urine Protein Negative (Negative) Urine Glucose (UA) Negative (Negative) Urine Ketones Negative (Negative) Urine Blood Negative (Negative) Urine Nitrite Negative (Negative) Urine Bilirubin Negative (Negative) Urine Urobilinogen <2.0 (<2.0) mg/dL Ur Leukocyte Esterase Negative (Negative) Disposition Clinical Impression: Confusion, Weakness, Leukocytosis, Hyponatremia, Hospital-acquired pneumonia, Unable to ambulate Disposition: ADMITTED IP TO THIS HOSP Condition: Fair Is patient prescribed a controlled substance at d/c from ED?: No Referrals: Razia Holbrook MD [Primary Care Provider] - 1-2 days Time of Disposition: 19:57 Decision Date: 02/09/19 Decision Time: 19:58
[2019-02-09 19:22] LABS: Appearance,Urine Clear (Clear); Bilirubin,Urine Negative (Negative); Blood,Urine Negative (Negative); Color,Urine Yellow; Glucose,Urine (UA) Negative (Negative); Ketones,Urine Negative (Negative); Leukocyte Esterase,Urine Negative (Negative); Nitrite,Urine Negative (Negative); PH, Urine 7.5 (5.0-8.0); Protein,Urine Negative (Negative); Urobilinogen,Urine <2.0 mg/dL (<2.0)
[2019-02-09] MEDS ORDERED: LEVOFLOXACIN 750MG-D5W PMX 750 MG in DEXTROSE/WATER 1 150ML.BAG IVPB STA (19:52)
[2019-02-09] MEDS ORDERED: VANCOMYCIN 1,500 MG in SODIUM CHLORIDE 0.9% 250 ML IVPB STA (19:53)
[2019-02-09] MEDS ORDERED: VANCOMYCIN IV PER PHARMACY 1 EACH MISC MISCELLANE PRN (19:53)
[2019-02-09] MEDS ORDERED: PNEUMONIA PROTOCOL UTILIZED 1 EACH MISC PO PRN (20:03)
[2019-02-09] MEDS ORDERED: LORazepam 1 MG TAB PO PRN (20:05)
[2019-02-09] MEDS ORDERED: SODIUM CHLORIDE 0.9% 1,000 ML IV STA (20:11)
--- NOTE | 2019-02-09 20:26 | XR ---
EXAMINATION TYPE: XR abdomen acute w cxr, 3 views DATE OF EXAM: 02/09/2019 COMPARISON: Chest radiograph 02/03/2019 HISTORY: Pain, dyspnea TECHNIQUE: Upright chest and abdomen and supine KUB FINDINGS: CHEST: The marked chronic interstitial lung pattern is redemonstrated. Overall lung inflation appears similar to 02/03/2019 chest radiograph. No new chest process is evident. ABDOMEN AND PELVIS: Gas is seen scattered throughout the small and large bowel. There is no bowel ob struction. No abnormal gas collection. No definite acute skeletal or soft tissue findings. IMPRESSION: No definite acute process.
[2019-02-09] MEDS: POTASSIUM CHLORIDE ER 20 MEQ TAB.ER PO SCH (21:38)
[2019-02-09] MEDS: HYDROcodone/APAP 10-325MG 1 EACH TAB PO PRN (21:38)
[2019-02-09] MEDS ORDERED: metroNIDAZOLE 500 MG TAB PO SCH (22:00)
[2019-02-10] MEDS: VANCOMYCIN 1,250 MG in SODIUM CHLORIDE 0.9% 250 ML IVPB SCH ×3 (04:56→19:12)
[2019-02-10] MEDS: IPRATROPIUM-ALBUTEROL 3 ML NEB INHALATION PRN ×2 (08:00→11:33)
[2019-02-10] MEDS: SYMBICORT 160-4.5 MCG INHALER INHALATION SCH ×2 (08:01→19:59)
[2019-02-10] MEDS: PANTOPRAZOLE 40 MG TABLET PO SCH (08:09)
[2019-02-10] MEDS: POTASSIUM CHLORIDE ER 20 MEQ TAB.ER PO SCH ×2 (08:09→21:12)
[2019-02-10] MEDS: SERTRALINE 100 MG TAB PO SCH (08:09)
[2019-02-10] MEDS: predniSONE 10 MG TAB PO SCH (08:09)
[2019-02-10] MEDS: ENOXAPARIN 40 MG/0.4 ML SYRINGE SQ SCH (08:09)
[2019-02-10] MEDS: FUROSEMIDE 40 MG TAB PO SCH (08:09)
[2019-02-10] MEDS ORDERED: FLUCONAZOLE 100 MG TAB PO SCH (09:00)
[2019-02-10] MEDS: HYDROcodone/APAP 10-325MG 1 EACH TAB PO PRN ×2 (09:13→18:41)
[2019-02-10 11:19] LABS: Anisocytosis Slight; HCT 38.1 % (39.0-53.0); HGB 11.9 gm/dL (13.0-17.5); MCH 30.1 pg (25.0-35.0); MCHC 31.1 g/dL (31.0-37.0); MCV 96.8 fL (80.0-100.0); Macrocytosis Slight; Mean Platelet Volume 7.2; Platelet Count 442 k/uL (150-450); RBC 3.94 m/uL (4.30-5.90); RDW 18.1 % (11.5-15.5); WBC 13.8 k/uL (3.8-10.6)
[2019-02-10 11:32] LABS: African American GFR (CKD) >90 (>60 ml/min/1.73 sqM); Anion Gap 7 mmol/L; Blood Urea Nitrogen 9 mg/dL (9-20); Carbon Dioxide 26 mmol/L (22-30); Chloride 100 mmol/L (98-107); Glucose 97 mg/dL (74-99); Potassium 4.1 mmol/L (3.5-5.1); Sodium 133 mmol/L (137-145)
--- NOTE | 2019-02-10 12:41 | P.CNPUL ---
History of Present Illness Consult date: 02/10/19 Requesting physician: Razia Holbrook Reason for consult: dyspnea, abnormal CXR/CT (Left lower lobe infiltrate) Chief complaint: Weakness, altered mental status History of present illness: This a very pleasant 68-year-old gentleman with a known history of hyperlipidemia, rheumatoid arthritis, obstructive sleep apnea intolerant to CPAP, significant COPD with FEV1 value of 46% of predicted, pulmonary fibrosis and home oxygen at 3.5 L, former smoker, daily alcohol use. He was just recently discharged from here on 02/06/2019 after sustaining an acute duodenal ulcer with perforation and pneumoperitoneum. Status post exploratory laparotomy, repair perforated ulcer as well as repair of incarcerated umbilical hernia. He was discharged home on Augmentin, Flagyl, Diflucan. Retention sutures still in place. He was brought back here to the emergency room yesterday after developing altered mental status and profound weakness. His had given him initially to a [facility] for placement but they said he was too ill and was referred here to the emergency department. Chest x-ray revealed no acute pulmonary process. Abdomen revealed no acute process. He is seen today in consultation on the regular medical floor. He is currently sitting up in a chair at the bedside. Awake and alert in no acute distress. Somewhat confused to date and time. Aware he is in the hospital. He is cu rrently afebrile. Maintaining O2 saturations in the mid 90s on 3 L/m per nasal cannula. Hemodynamically stable. White count 13.8. Hemoglobin 11.9. Creatinine 0.58. Arterial blood gases revealed a PaO2 of 100, pCO2 36, pH 7.48. He's been initiated on vancomycin and Levaquin. Review of Systems REVIEW OF SYSTEMS: CONSTITUTIONAL: Denies any recent significant weight loss or weight gain. EYES: Denies change in vision. EARS, NOSE, MOUTH, THROAT: Denies headaches, denies sore throat. CARDIOVASCULAR: Denies chest pain, palpitations or syncopal episodes. RESPIRATORY: Positive for shortness of breath, cough, congestion no hemoptysis. GASTROINTESTINAL: Poor appetite, abdominal pain due to recent surgery. GENITOURINARY: Denies hematuria, denies infections. MUSKULOSKELETAL: Denies pain, denies swelling. INTEGUMENTARY: Denies rash, denies eczema. NEUROLOGICAL: Positive for recent memory loss, no recent seizure activity. PSYCHIATRIC: Denies anxiety, denies depression. HEMATOLOGIC/LYMPHATIC: Denies anemia, denies enlarged lymph nodes. Past Medical History Past Medical History: COPD, Hyperlipidemia, Osteoarthritis (OA), Pneumonia, Rheumatoid Arthritis (RA), Sleep Apnea/CPAP/BIPAP Additional Past Medical History / Comment(s): Pneumonia with sepsis twice-10/2017 and in 2016. 3.5L home o2, PATTY with no device (cannot tolerate), recently injured low back-saw Dr. Dye. Rheumatoid arthritis in bilateral hips,knees hands and back. History of Any Multi-Drug Resistant Organisms: None Reported Past Surgical History: Orthopedic Surgery Additional Past Surgical History / Comment(s): bilateral cataract removals with lens implants, left knee arthroscopy, colonoscopy, GI perforated ulcer. Past Anesthesia/Blood Transfusion Reactions: No Reported Reaction Past Psychological History: Anxiety, Depression Additional Psychological History / Comment(s): Pt resides with his spouse of 38 yrs. He has home oxygen which he wears prn at 3.5L/NC. He has a nebulizer. Smoking Status: Former smoker Past Alcohol Use History: Daily Additional Past Alcohol Use History / Comment(s): Pt started smoking as a teen and quit in 2011. He states he drinks 3-4 beers a day. Past Drug Use History: None Reported - Past Family History Father Family Medical History: Cancer Additional Family Medical History / Comment(s): Father of leukemia. Mother Family Medical History: Cancer, CVA/TIA, Dementia, Diabetes Mellitus Additional Family Medical History / Comment(s): Mother is 88yrs old. Cancer colon. Medications and Allergies Home Medications Medication Instructions Recorded Confirmed Type LORazepam [Ativan] 1 mg PO TID PRN 02/04/18 02/09/19 History predniSONE 10 mg PO DAILY #30 tab 02/05/18 02/09/19 Rx HYDROcodone/APAP 10-325MG [[place] 1 tab PO Q8H PRN 01/22/19 02/09/19 History 10-325] Amoxic-Pot Clav 875-125Mg 1 tab PO Q12HR #8 tablet 02/06/19 02/09/19 Rx [Augmentin 875-125] Fluconazole [Diflucan] 200 mg PO DAILY #5 tab 02/06/19 02/09/19 Rx Furosemide [Lasix] 40 mg PO DAILY #30 tab 02/06/19 02/09/19 Rx Ipratropium-Albuterol Nebulize 3 ml INHALATION RT-Q6H #120 02/06/19 02/09/19 Rx [Duoneb 0.5 mg-3 mg/3 ml Soln] ampul.neb Pantoprazole [Protonix] 40 mg PO AC-BRKFST #30 tablet. 02/06/19 02/09/19 Rx metroNIDAZOLE [Flagyl] 500 mg PO TID #10 tab 02/06/19 02/09/19 Rx Budesonide/Formoterol Fumarate 1 puff IH RT-BID 02/09/19 02/09/19 History [Symbicort 160-4.5 Mcg Inhaler] Potassium Chloride [Klor-Con 20] 20 meq PO BID 02/09/19 02/09/19 History Sertraline [Zoloft] 100 mg PO DAILY 02/09/19 02/09/19 History Allergies Allergy/AdvReac Type Severity Reaction Status Date / Time amoxicillin AdvReac Nausea & Verified 01/22/19 13:48 Vomiting Physical Exam Vitals: Vital Signs Temp Pulse Pulse Resp BP BP Pulse Ox 02/10/19 11:45 88 02/10/19 11:34 88 02/10/19 08:14 86 02/10/19 08:04 90 96 02/10/19 07:00 97.8 F 93 16 129/74 95 02/10/19 00:15 98.0 F 77 18 112/62 96 02/09/19 22:56 92 18 110/74 97 02/09/19 21:43 92 18 116/73 98 02/09/19 20:04 98 18 112/80 96 02/09/19 19:00 93 22 106/75 98 02/09/19 18:00 96 21 117/74 97 02/09/19 17:42 16 02/09/19 17:29 97.1 F L 104 H 16 110/65 97 02/09/19 17:11 110/65 Intake and Output 02/09/19 02/10/19 02/10/19 22:59 06:59 14:59 Intake Total 500 1050 Balance 500 1050 Intake: IV 1050 Sodium Chloride 0.9% 1, 800 000 ml @ 100 mls/hr IV . Q10H STA Rx#:[id number] Vancomycin 1,250 mg In 250 Sodium Chloride 0.9% 250 ml @ 125 mls/hr IVPB Q8H LUCAS Rx#:[id number] Intake, IV Titration 500 Amount Sodium Chloride 0.9% 1, 500 000 ml @ 100 mls/hr IV . Q10H STA Rx#:[id number] Other: # Voids 1 Weight 74.843 kg GENERAL EXAM: Alert, up in a chair at the bedside, comfortable in no apparent distress. On 3 L/m HEAD: Normocephalic. EYES: Normal reaction of pupils, equal size. NOSE: Clear with pink turbinates. THROAT: No erythema or exudates. NECK: No masses, no JVD. CHEST: No chest wall deformity. LUNGS: Equal air entry with coarse crackles in the posterior bases CVS: S1 and S2 normal with no audible murmur, regular rhythm. ABDOMEN: Soft, slightly tender, retention sutures in place, normal bowel sounds, no guarding or rigidity. SPINE: No scoliosis or deformity SKIN: No rashes CENTRAL NERVOUS SYSTEM: No focal deficits, tone is normal in all 4 extremities. EXTREMITIES: There is no peripheral edema. No clubbing, no cyanosis. Peripheral pulses are intact. Results - Laboratory Findings CBC and BMP: 02/10/19 10:37 02/10/19 10:37 ABG ABG pH 7.48 (7.35-7.45) H 02/09/19 17:49 ABG pCO2 36 mmHg (35-45) 02/09/19 17:49 ABG pO2 100 mmHg (83-108) 02/09/19 17:49 ABG O2 Saturation 97.8 % (94-97) H 02/09/19 17:49 PT/INR, D-dimer PT 10.2 sec (9.0-12.0) 02/09/19 17:12 INR 0.9 (<1.2) 02/09/19 17:12 Abnormal lab findings: Abnormal Labs 02/09/19 02/09/19 02/09/19 17:12 17:12 17:12 WBC 14.5 H RBC 3.97 L Hgb 12.0 L Hct 38.2 L RDW 16.8 H Plt Count 474 H Neutrophils # 13.5 H Lymphocytes # 0.5 L ABG pH ABG HCO3 ABG Total CO2 ABG O2 Saturation Sodium 129 L Creatinine 0.55 L Glucose 161 H Plasma Lactic Acid Steven 2.1 H* Calcium 7.9 L AST 62 H Total Protein 5.6 L Albumin 2.7 L 02/09/19 02/09/19 02/10/19 17:49 21:47 10:37 WBC 13.8 H RBC 3.94 L Hgb 11.9 L Hct 38.1 L RDW 18.1 H Plt Count Neutrophils # Lymphocytes # ABG pH 7.48 H ABG HCO3 27 H ABG Total CO2 28 H ABG O2 Saturation 97.8 H Sodium Creatinine Glucose Plasma Lactic Acid Steven 0.6 L Calcium AST Total Protein Albumin 02/10/19 10:37 WBC RBC Hgb Hct RDW Plt Count Neutrophils # Lymphocytes # ABG pH ABG HCO3 ABG Total CO2 ABG O2 Saturation Sodium 133 L Creatinine 0.58 L Glucose Plasma Lactic Acid Steven Calcium 8.0 L AST Total Protein Albumin - Diagnostic Findings Chest x-ray: image reviewed (No acute pulmonary process) Assessment and Plan Assessment: Impression: #1 Altered mental status and medical debility secondary to prolonged recent hospitalization. #2 Pulmonary fibrosis, no clear indication of acute process. #3 Moderate chronic obstructive pulmonary disease, currently inactive and stable. #4 Chronic hypoxemic respiratory failure secondary to above. #5 Obstructive sleep apnea not currently on CPAP, patient intolerant. #6 Recent hospitalization for acute duodenal ulcer perforation with pneumoperitoneum, status post exploratory laparotomy, repair of perforated duodenal ulcers as well as repair of incarcerated umbilical hernia. #7 History of rheumatoid arthritis. #8 Chronic back pain. #9 Hyperlipidemia. #10History of anxiety/depression. #11 History of nicotine dependence. #12 History of daily alcohol use. #13 Poor overall functional performance based on the above-mentioned multiple comorbidities. Plan: The patient was seen and evaluated by Dr. Mireles. Chest x-ray and labs reviewed. Doubt any significant pneumonia. He does have underlying severe pulmonary fibrosis and COPD. Continue bronchodilators, empiric antibiotics, oxygen therapy. Overall prognosis is guarded. We will continue to follow and make further recommendations based on his clinical status. I, the cosigning physician, performed a history & physical examination of the patient. Lungs sounds with coarse crackles in the posterior bases. Maintaining good O2 saturations in the 90s on 3 L/m per nasal cannula I discussed the assessment and plan of care with my nurse practitioner, Priscilla Mike. I attest to the above note as dictated by her. Time with Patient: Greater than 30
--- NOTE | 2019-02-10 15:24 | P.HPIM ---
History of Present Illness H&P Date: 02/10/19 This is a 68-year-old male patient of Dr. Marina Cheema currently under the care of Dr. Holbrook at [facility] with past medical history of advanced steroid-dependent COPD, hyperlipidemia, rheumatoid arthritis, obstructive sleep apnea unable to tolerate CPAP, chronic hypoxic respiratory failure on home O2 at 3 L nasal cannula, generalized osteoarthritis, chronic back pain pseudomonas in sputum on last admission secondary to colonization or pseudomonal pneumonia. Known FVC of 72% and FEV1 of 46%. Patient had recent hospitalization January 22 through February 05 for perforated duodenal ulcer status post exploratory laparotomy with repair of perforated duodenal ulcer and repair of incarcerated umbilical hernia surgery performed by Dr. Levi. The patient was initially discharged home with home care but family admitted him to [facility] yesterday morning. He did have a cough with yellow sputum production. Patient had increased weakness and confusion and met sepsis criteria. Dr. Holbrook was contacted and recommended that patient be sent to [facility] emergency center for evaluation. He was afebrile, heart rate 104, blood pressure 110/65, pulse ox 97%. White count was 14.5, hemoglobin 12.0, platelet count 474. Sodium 129, BUN 10 and creatinine 0.55, blood sugar 161. Lactic acid 2.1, ammonia less than 9. TSH 1.410. AST 62. Troponin negative. ProBNP 304. ABGs pH 7.48, pCO2 36, pO2 100, bicarb 27, total CO2 28, O2 saturation 97.8 on FiO2 of 36%. Urinalysis was clear nitrate and leukoesterase negative. Chest x-ray shows no definite acute process. Patient was started on Levaquin and vancomycin and admitted to the [facility] floor for suspected pneumonia. Consult with pulmonary medicine. Patient's is at the bedside and states that he is improved from yesterday he was very lethargic all weekend he also has had diarrhea for 4 days but he looks much better today. He has had no fever or chills. Sputum green colored and cough for a couple of days at least. Review of Systems Constitutional: Reports fatigue, Reports lethargy, Reports malaise, Reports poor appetite, Reports weakness, Denies chills, Denies fever Ears, nose, mouth and throat: Denies nasal congestion, Denies nasal discharge, Denies vertigo Cardiovascular: Reports decreased exercise tolerance, Reports dyspnea on exertion, Reports shortness of breath, Denies edema, Denies leg edema, Denies lightheadedness, Denies syncope Respiratory: Reports cough, Reports cough with sputum, Reports dyspnea, Reports excessive sputum, Reports home oxygen, Denies hemoptysis Gastrointestinal: Reports diarrhea, Denies abdominal pain, Denies loss of appetite, Denies nausea, Denies vomiting Genitourinary: Denies dysuria, Denies urinary retention Musculoskeletal: Reports muscle weakness, Denies frequent falls, Denies gait dysfunction, Denies myalgias Integumentary: Denies pruritus, Denies rash, Denies wounds Neurological: Reports change in mentation, Reports confusion, Denies aphasia, Denies change in speech, Denies gait dysfunction, Denies head injury, Denies seizures, Denies syncope, Denies vertigo Psychiatric: Denies anxiety, Denies depression Past Medical History Past Medical History: COPD, Hyperlipidemia, Osteoarthritis (OA), Pneumonia, Rheumatoid Arthritis (RA), Sleep Apnea/CPAP/BIPAP Additional Past Medical History / Comment(s): Pneumonia with sepsis twice-10/2017 and in 2015. 3.5L home o2, PATTY with no device (cannot tolerate), recently injured low back-saw Dr. Dye. Rheumatoid arthritis in bilateral hips,knees hands and back. History of Any Multi-Drug Resistant Organisms: None Reported Past Surgical History: Orthopedic Surgery Additional Past Surgical History / Comment(s): bilateral cataract removals with lens implants, left knee arthroscopy, colonoscopy, GI perforated ulcer. Past Anesthesia/Blood Transfusion Reactions: No Reported Reaction Past Psychological History: Anxiety, Depression Additional Psychological History / Comment(s): Pt resides with his spouse of 38 yrs. He has home oxygen which he wears prn at 3.5L/NC. He has a nebulizer. Smoking Status: Former smoker Past Alcohol Use History: Daily Additional Past Alcohol Use History / Comment(s): Patient smoked 2 packs per day for 40+ years. He quit 6 years ago. He denies any illicit drug use or marijuana use. He drinks 3-4 beers per day but none since previous admission and December. 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 Past Drug Use History: None Reported - Past Family History Father Family Medical History: Cancer Additional Family Medical History / Comment(s): Father of leukemia. Mother Family Medical History: Cancer, CVA/TIA, Dementia, Diabetes Mellitus Additional Family Medical History / Comment(s): Mother is 88yrs old with history of dementia and colon cancer. Sister(s) Additional Family Medical History / Comment(s): Patient has 1 full sister with history of lung cancer. Patient has one half-sister with adrenal problems. Patient does not have any brothers. Patient 3 sons with no major medical problems. Medications and Allergies Home Medications Medication Instructions Recorded Confirmed Type LORazepam [Ativan] 1 mg PO TID PRN 02/04/18 02/09/19 History predniSONE 10 mg PO DAILY #30 tab 02/05/18 02/09/19 Rx HYDROcodone/APAP 10-325MG [[place] 1 tab PO Q8H PRN 01/22/19 02/09/19 History 10-325] Amoxic-Pot Clav 875-125Mg 1 tab PO Q12HR #8 tablet 02/06/19 02/09/19 Rx [Augmentin 875-125] Fluconazole [Diflucan] 200 mg PO DAILY #5 tab 02/06/19 02/09/19 Rx Furosemide [Lasix] 40 mg PO DAILY #30 tab 02/06/19 02/09/19 Rx Ipratropium-Albuterol Nebulize 3 ml INHALATION RT-Q6H #120 02/06/19 02/09/19 Rx [Duoneb 0.5 mg-3 mg/3 ml Soln] ampul.neb Pantoprazole [Protonix] 40 mg PO AC-BRKFST #30 tablet. 02/06/19 02/09/19 Rx metroNIDAZOLE [Flagyl] 500 mg PO TID #10 tab 02/06/19 02/09/19 Rx Budesonide/Formoterol Fumarate 1 puff IH RT-BID 02/09/19 02/09/19 History [Symbicort 160-4.5 Mcg Inhaler] Potassium Chloride [Klor-Con 20] 20 meq PO BID 02/09/19 02/09/19 History Sertraline [Zoloft] 100 mg PO DAILY 02/09/19 02/09/19 History Allergies Allergy/AdvReac Type Severity Reaction Status Date / Time amoxicillin AdvReac Nausea & Verified 01/22/19 13:48 Vomiting Physical Exam Vitals: Vital Signs Temp Pulse Pulse Resp BP BP Pulse Ox 02/10/19 08:14 86 02/10/19 08:04 90 96 02/10/19 00:15 98.0 F 77 18 112/62 96 02/09/19 22:56 92 18 110/74 97 02/09/19 21:43 92 18 116/73 98 02/09/19 20:04 98 18 112/80 96 02/09/19 19:00 93 22 106/75 98 02/09/19 18:00 96 21 117/74 97 02/09/19 17:42 16 02/09/19 17:29 97.1 F L 104 H 16 110/65 97 02/09/19 17:11 110/65 Intake and Output 02/09/19 02/10/19 02/10/19 22:59 06:59 14:59 Intake Total 500 Balance 500 Intake: Intake, IV Titration 500 Amount Sodium Chloride 0.9% 1, 500 000 ml @ 100 mls/hr IV . Q10H STA Rx#:[id number] Other: # Voids 1 Weight 74.843 kg Gen: This is a 68-year-old male. Patient is resting in bed appears to be comfortable and in no acute distress. HEENT: Head is atraumatic, normocephalic. Pupils equal, round. Sclerae is an icteric. NECK: Supple. No JVD. No lymphadenopathy. No thyromegaly. LUNGS: Coarse crackles bilaterally. No intercostal retractions. HEART: Regular rate and rhythm. No murmur. ABDOMEN: Soft. Bowel sounds are present. No masses. No tenderness. EXTREMITIES: No pedal edema. No calf tenderness. NEUROLOGICAL: Patient is awake, alert and oriented x3. Cranial nerves 2 through 12 are grossly intact. Results CBC & Chem 7: 02/10/19 10:37 02/10/19 10:37 Labs: Abnormal Lab Results - Last 24 Hours (Table) 02/09/19 02/09/19 02/09/19 Range/Units 17:12 17:12 17:12 WBC 14.5 H (3.8-10.6) k/uL RBC 3.97 L (4.30-5.90) m/uL Hgb 12.0 L (13.0-17.5) gm/dL Hct 38.2 L (39.0-53.0) % RDW 16.8 H (11.5-15.5) % Plt Count 474 H (150-450) k/uL Neutrophils # 13.5 H (1.3-7.7) k/uL Lymphocytes # 0.5 L (1.0-4.8) k/uL ABG pH (7.35-7.45) ABG HCO3 (21-25) mmol/L ABG Total CO2 (19-24) mmol/L ABG O2 Saturation (94-97) % Sodium 129 L (137-145) mmol/L Creatinine 0.55 L (0.66-1.25) mg/dL Glucose 161 H (74-99) mg/dL Plasma Lactic Acid Steven 2.1 H* (0.7-2.0) mmol/L Calcium 7.9 L (8.4-10.2) mg/dL AST 62 H (17-59) U/L Total Protein 5.6 L (6.3-8.2) g/dL Albumin 2.7 L (3.5-5.0) g/dL 02/09/19 02/09/19 Range/Units 17:49 21:47 WBC (3.8-10.6) k/uL RBC (4.30-5.90) m/uL Hgb (13.0-17.5) gm/dL Hct (39.0-53.0) % RDW (11.5-15.5) % Plt Count (150-450) k/uL Neutrophils # (1.3-7.7) k/uL Lymphocytes # (1.0-4.8) k/uL ABG pH 7.48 H (7.35-7.45) ABG HCO3 27 H (21-25) mmol/L ABG Total CO2 28 H (19-24) mmol/L ABG O2 Saturation 97.8 H (94-97) % Sodium (137-145) mmol/L Creatinine (0.66-1.25) mg/dL Glucose (74-99) mg/dL Plasma Lactic Acid Steven 0.6 L (0.7-2.0) mmol/L Calcium (8.4-10.2) mg/dL AST (17-59) U/L Total Protein (6.3-8.2) g/dL Albumin (3.5-5.0) g/dL Thrombosis Risk Factor Assmnt - DVT/VTE Prophylaxis DVT/VTE Prophylaxis: Pharmacologic Prophylaxis ordered - Choose All That Apply Any of the Below Risk Factors Present?: Yes Each Factor Represents 1 point: Obesity (BMI >25) Other Risk Factors: Yes Each Risk Factor Represents 2 Points: Age 61-74 years Other congenital or acquired thrombophilia - If yes, enter type in comment: No Thrombosis Risk Factor Assessment Total Risk Factor Score: 3 Thrombosis Risk Factor Assessment Level: Moderate Risk Assessment and Plan Plan: 1. Mental status changes, metabolic encephalopathy multifactorial including hyponatremia, COPD and chronic respiratory failure, pulmonary fibrosis and recent extended hospitalization. 2. Hyponatremia secondary to diarrhea. Check stool for C. difficile toxin. Patient was on IV fluids 100 mL per hour. Recheck lab work in the morning. 3. Advanced COPD with pulmonary fibrosis, steroid dependent and chronic hypoxic and hypercapnic respiratory failure on home O2 at 3 L. pneumonia is doubtful per Dr. Mireles. Continue Symbicort, DuoNeb treatments, Levaquin and vancomycin, prednisone 10 mg daily. 4. Rheumatoid arthritis, stable. 5. Recent hospitalization for perforated duodenal ulcer status post exploratory laparotomy with repair of perforated duodenal ulcer and repair of incarcerated umbilical hernia surgery performed by Dr. Levi. Consult with Dr. Levi. Patient is currently on a regular diet. 6. Hyperlipidemia. 7. Obstructive sleep apnea unable to tolerate CPAP. 8. Chronic back pain and generalized osteoarthritis. 9. Severe protein calorie malnutrition. Ensure added. 10. Generalized anxiety disorder and recurrent depression. Continue Zoloft 100 mg daily, Ativan 1 mg 3 times daily as needed. 11. DVT prophylaxis. Continue Lovenox daily 10. GI prophylaxis. Continue Protonix daily. 12. Insomnia. Melatonin added. Patient will be admitted to the hospital for a minimum of 3 night stay. Discharge plan: Return to [facility] most likely on . PT and OT. Impression and plan of care have been directed as dictated by the signing physician. [place]ia Salinas nurse practitioner acting as scribe for signing physician.
[2019-02-10] MEDS ORDERED: LEVOFLOXACIN 750MG-D5W PMX 750 MG in DEXTROSE/WATER 1 150ML.BAG IVPB SCH (21:00)
[2019-02-10] MEDS: MELATONIN 5 MG TABLET PO SCH (21:12)
[2019-02-11] MEDS: HYDROcodone/APAP 10-325MG 1 EACH TAB PO PRN ×3 (01:52→17:05)
[2019-02-11] MEDS ORDERED: VANCOMYCIN TROUGH DUE 1 EACH MISC MISCELLANE ONE (03:00)
[2019-02-11 03:52] LABS: Anisocytosis Slight; HGB 10.6 gm/dL (13.0-17.5); MCH 30.6 pg (25.0-35.0); MCHC 31.1 g/dL (31.0-37.0); MCV 98.1 fL (80.0-100.0); Macrocytosis Slight; Mean Platelet Volume 6.6; Platelet Count 392 k/uL (150-450); RBC 3.47 m/uL (4.30-5.90); RDW 17.2 % (11.5-15.5); WBC 9.9 k/uL (3.8-10.6)
[2019-02-11 03:59] LABS: ALT 31 U/L (21-72); AST 28 U/L (17-59); African American GFR (CKD) >90 (>60 ml/min/1.73 sqM); Albumin 2.3 g/dL (3.5-5.0); Alkaline Phosphatase 74 U/L (38-126); Anion Gap 3 mmol/L; Blood Urea Nitrogen 11 mg/dL (9-20); Calcium 7.7 mg/dL (8.4-10.2); Carbon Dioxide 25 mmol/L (22-30); Chloride 103 mmol/L (98-107); Glucose 88 mg/dL (74-99); Potassium 4.3 mmol/L (3.5-5.1); Sodium 131 mmol/L (137-145); Total Bilirubin 0.3 mg/dL (0.2-1.3); Total Protein 4.8 g/dL (6.3-8.2)
[2019-02-11] MEDS: VANCOMYCIN 1,250 MG in SODIUM CHLORIDE 0.9% 250 ML IVPB SCH (04:37)
[2019-02-11 07:14] LABS: Glucose,Whole Blood 84 mg/dL (75-99)
[2019-02-11] MEDS: SYMBICORT 160-4.5 MCG INHALER INHALATION SCH ×2 (07:39→21:16)
[2019-02-11] MEDS: predniSONE 10 MG TAB PO SCH (09:35)
[2019-02-11] MEDS: PANTOPRAZOLE 40 MG TABLET PO SCH (09:35)
[2019-02-11] MEDS: ENOXAPARIN 40 MG/0.4 ML SYRINGE SQ SCH (09:35)
[2019-02-11] MEDS: POTASSIUM CHLORIDE ER 20 MEQ TAB.ER PO SCH ×2 (09:35→20:48)
[2019-02-11] MEDS: FUROSEMIDE 40 MG TAB PO SCH (09:35)
[2019-02-11] MEDS: SERTRALINE 100 MG TAB PO SCH (09:35)
[2019-02-11 10:59] VITALS: BMI 25.0
--- NOTE | 2019-02-11 11:15 | P.GSCN ---
History of Present Illness Consult date: 02/11/19 Reason for Consult: Perforated duodenal ulcer History of present illness: Patient returns to the hospital because of complaints of weakness, shortness of breath, confusion, and some abdominal discomfort. Patient known to our service from recent hospitalization after he presented with a perforated duodenal ulcer with peritonitis. Patient's states that she was having difficulty caring for him at home because of his weakness and inability to care for himself. He was only at [facility] rehab for approximately a few hours and was then brought to the hospital for above complaints. Patient's states he was not having complaints of pain at home. His appetite however has been poor. No nausea or vomiting. No fevers. White blood cell count slightly elevated on arrival. Today is normal. Abdominal x-rays are normal. Appears and states he is comfortable currently. Review of Systems The patient denies any acute changes in vision or hearing, no odynophagia, no dysuria or hematuria, no headache, no runny nose, no rectal bleeding or melena, no unexplained weight loss Past Medical History Past Medical History: COPD, Hyperlipidemia, Osteoarthritis (OA), Pneumonia, Rheumatoid Arthritis (RA), Sleep Apnea/CPAP/BIPAP Additional Past Medical History / Comment(s): Pneumonia with sepsis twice-10/2017 and in 2016. 3.5L home o2, PATTY with no device (cannot tolerate), recently injured low back-saw Dr. Dye. Rheumatoid arthritis in bilateral hips,knees hands and back. History of Any Multi-Drug Resistant Organisms: None Reported Past Surgical History: Orthopedic Surgery Additional Past Surgical History / Comment(s): bilateral cataract removals with lens implants, left knee arthroscopy, colonoscopy, GI perforated ulcer. Past Anesthesia/Blood Transfusion Reactions: No Reported Reaction Past Psychological History: Anxiety, Depression Additional Psychological History / Comment(s): Pt resides with his spouse of 38 yrs. He has home oxygen which he wears prn at 3.5L/NC. He has a nebulizer. Smoking Status: Former smoker Past Alcohol Use History: Daily Additional Past Alcohol Use History / Comment(s): Patient smoked 2 packs per day for 40+ years. He quit 6 years ago. He denies any illicit drug use or m arijuana use. He drinks 3-4 beers per day but none since previous admission and December. 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 Past Drug Use History: None Reported - Past Family History Father Family Medical History: Cancer Additional Family Medical History / Comment(s): Father of leukemia. Mother Family Medical History: Cancer, CVA/TIA, Dementia, Diabetes Mellitus Additional Family Medical History / Comment(s): Mother is 88yrs old with history of dementia and colon cancer. Sister(s) Additional Family Medical History / Comment(s): Patient has 1 full sister with history of lung cancer. Patient has one half-sister with adrenal problems. Patient does not have any brothers. Patient 3 sons with no major medical problems. Medications and Allergies Home Medications Medication Instructions Recorded Confirmed Type LORazepam [Ativan] 1 mg PO TID PRN 02/04/18 02/09/19 History predniSONE 10 mg PO DAILY #30 tab 02/05/18 02/09/19 Rx HYDROcodone/APAP 10-325MG [[place] 1 tab PO Q8H PRN 01/22/19 02/09/19 History 10-325] Amoxic-Pot Clav 875-125Mg 1 tab PO Q12HR #8 tablet 02/06/19 02/09/19 Rx [Augmentin 875-125] Fluconazole [Diflucan] 200 mg PO DAILY #5 tab 02/06/19 02/09/19 Rx Furosemide [Lasix] 40 mg PO DAILY #30 tab 02/06/19 02/09/19 Rx Ipratropium-Albuterol Nebulize 3 ml INHALATION RT-Q6H #120 02/06/19 02/09/19 Rx [Duoneb 0.5 mg-3 mg/3 ml Soln] ampul.neb Pantoprazole [Protonix] 40 mg PO AC-BRKFST #30 tablet. 02/06/19 02/09/19 Rx metroNIDAZOLE [Flagyl] 500 mg PO TID #10 tab 02/06/19 02/09/19 Rx Budesonide/Formoterol Fumarate 1 puff IH RT-BID 02/09/19 02/09/19 History [Symbicort 160-4.5 Mcg Inhaler] Potassium Chloride [Klor-Con 20] 20 meq PO BID 02/09/19 02/09/19 History Sertraline [Zoloft] 100 mg PO DAILY 02/09/19 02/09/19 History Allergies Allergy/AdvReac Type Severity Reaction Status Date / Time amoxicillin AdvReac Nausea & Verified 01/22/19 13:48 Vomiting Surgical - Exam Vital Signs BP 110/65 02/09/19 17:11 Physical exam: General: Well-developed, well-nourished HEENT: Normocephalic, sclerae nonicteric Abdomen: Mild incisional tenderness, wounds clean, retention sutures in place Extremities: No edema Neuro: Alert and oriented Results - Labs 02/11/19 02:56 02/11/19 02:56 Abnormal Lab Results - Last 24 Hours (Table) 02/10/19 02/10/19 02/11/19 Range/Units 10:37 10:37 02:56 WBC 13.8 H (3.8-10.6) k/uL RBC 3.94 L 3.47 L (4.30-5.90) m/uL Hgb 11.9 L 10.6 L (13.0-17.5) gm/dL Hct 38.1 L 34.0 L (39.0-53.0) % RDW 18.1 H 17.2 H (11.5-15.5) % Sodium 133 L (137-145) mmol/L Creatinine 0.58 L (0.66-1.25) mg/dL Calcium 8.0 L (8.4-10.2) mg/dL Total Protein (6.3-8.2) g/dL Albumin (3.5-5.0) g/dL 02/11/19 Range/Units 02:56 WBC (3.8-10.6) k/uL RBC (4.30-5.90) m/uL Hgb (13.0-17.5) gm/dL Hct (39.0-53.0) % RDW (11.5-15.5) % Sodium 131 L (137-145) mmol/L Creatinine 0.56 L (0.66-1.25) mg/dL Calcium 7.7 L (8.4-10.2) mg/dL Total Protein 4.8 L (6.3-8.2) g/dL Albumin 2.3 L (3.5-5.0) g/dL Microbiology - Last 24 Hours (Table) 02/09/19 17:47 Blood Culture - Preliminary Blood No Growth after 24 hours Diabetes panel 02/10/19 02/11/19 Range/Units 10:37 02:56 Sodium 133 L 131 L (137-145) mmol/L Potassium 4.1 4.3 (3.5-5.1) mmol/L Chloride 100 103 (98-107) mmol/L Carbon Dioxide 26 25 (22-30) mmol/L BUN 9 11 (9-20) mg/dL Creatinine 0.58 L 0.56 L (0.66-1.25) mg/dL Glucose 97 88 (74-99) mg/dL Calcium 8.0 L 7.7 L (8.4-10.2) mg/dL AST 28 (17-59) U/L ALT 31 (21-72) U/L Alkaline Phosphatase 74 (38-126) U/L Total Protein 4.8 L (6.3-8.2) g/dL Albumin 2.3 L (3.5-5.0) g/dL Calcium panel 02/10/19 02/11/19 Range/Units 10:37 02:56 Calcium 8.0 L 7.7 L (8.4-10.2) mg/dL Albumin 2.3 L (3.5-5.0) g/dL Pituitary panel 02/10/19 02/11/19 Range/Units 10:37 02:56 Sodium 133 L 131 L (137-145) mmol/L Potassium 4.1 4.3 (3.5-5.1) mmol/L Chloride 100 103 (98-107) mmol/L Carbon Dioxide 26 25 (22-30) mmol/L BUN 9 11 (9-20) mg/dL Creatinine 0.58 L 0.56 L (0.66-1.25) mg/dL Glucose 97 88 (74-99) mg/dL Calcium 8.0 L 7.7 L (8.4-10.2) mg/dL Adrenal panel 02/10/19 02/11/19 Range/Units 10:37 02:56 Sodium 133 L 131 L (137-145) mmol/L Potassium 4.1 4.3 (3.5-5.1) mmol/L Chloride 100 103 (98-107) mmol/L Carbon Dioxide 26 25 (22-30) mmol/L BUN 9 11 (9-20) mg/dL Creatinine 0.58 L 0.56 L (0.66-1.25) mg/dL Glucose 97 88 (74-99) mg/dL Calcium 8.0 L 7.7 L (8.4-10.2) mg/dL Total Bilirubin 0.3 (0.2-1.3) mg/dL AST 28 (17-59) U/L ALT 31 (21-72) U/L Alkaline Phosphatase 74 (38-126) U/L Total Protein 4.8 L (6.3-8.2) g/dL Albumin 2.3 L (3.5-5.0) g/dL Assessment and Plan (1) Duodenal ulcer, perforated Narrative/Plan: Continue regular diet. Continue antiacid therapy. If pain increases Will repeat CAT scan but for now clinical suspicion of intra-abdominal source of problems remains low. Current Visit: No Status: Acute Code(s): K26.5 - CHRONIC OR UNSPECIFIED DUODENAL ULCER WITH PERFORATION SNOMED Code(s): 48936885
[2019-02-11 12:14] LABS: Glucose,Whole Blood 117 mg/dL (75-99)
--- NOTE | 2019-02-11 13:51 | P.PN ---
Subjective Progress Note Date: 02/11/19 Principal diagnosis: Altered mental status and medical debility. This a very pleasant 68-year-old gentleman with a known history of hyperlipidemia, rheumatoid arthritis, obstructive sleep apnea intolerant to CPAP, significant COPD with FEV1 value of 46% of predicted, pulmonary fibrosis and home oxygen at 3.5 L, former smoker, daily alcohol use. He was just recently discharged from here on 02/06/2019 after sustaining an acute duodenal ulcer with perforation and pneumoperitoneum. Status post exploratory laparotomy, repair perforated ulcer as well as repair of incarcerated umbilical hernia. He was discharged home on Augmentin, Flagyl, Diflucan. Retention sutures still in place. He was brought back here to the emergency room yesterday after developing altered mental status and profound weakness. His had given him initially to a skilled nursing for placement but they said he was too ill and was referred here to the emergency department. Chest x-ray revealed no acute pulmonary process. Abdomen revealed no acute process. He is seen today in consultation on the regular medical floor. He is currently sitting up in a chair at the bedside. Awake and alert in no acute distress. Somewhat confused to date and time. Aware he is in the hospital. He is curren tly afebrile. Maintaining O2 saturations in the mid 90s on 3 L/m per nasal cannula. Hemodynamically stable. White count 13.8. Hemoglobin 11.9. Creatinine 0.58. Arterial blood gases revealed a PaO2 of 100, pCO2 36, pH 7.48. He's been initiated on vancomycin and Levaquin. The patient was seen today 02/11/2019 in follow-up on the regular medical floor. He is awake and alert currently sitting up in a chair at the bedside. He denies any worsening shortness of breath, cough or congestion. Maintaining good O2 saturations in the 90s on 2 L/m per nasal cannula. Afebrile. A culture reveals no growth to date. White count 9.9. Hemoglobin 10.6. Creatinine 0.56. He remains on DuoNeb inhalations, Symbicort, Levaquin. Objective - Vital Signs Vital signs: Vital Signs Temp 98 F 02/11/19 07:00 Pulse 84 02/11/19 07:00 Resp 12 02/11/19 07:00 BP 104/65 02/11/19 07:00 Pulse Ox 96 02/11/19 07:00 Intake & Output 02/10/19 02/11/19 02/11/19 18:59 06:59 18:59 Intake Total 1050 880 Balance 1050 880 Weight 74.843 kg Intake: IV 1050 Sodium Chloride 0.9% 1, 800 000 ml @ 100 mls/hr IV . Q10H STA Rx#:[id number] Vancomycin 1,250 mg In 250 Sodium Chloride 0.9% 250 ml @ 125 mls/hr IVPB Q8H [facility]UC[facility] Rx#:[id number] Intake, IV Titration 400 Amount Levofloxacin 750Mg-D5w 150 Pmx 750 mg In Dextrose/ Water 1 150ml.bag @ 100 mls/hr IVPB Q24H [facility] Rx#: [id number] Vancomycin 1,250 mg In 250 Sodium Chloride 0.9% 250 ml @ 125 mls/hr IVPB Q8H [facility] Rx#:[id number] Oral 480 Other: # Voids 3 - Exam GENERAL EXAM: Alert, up in a chair at the bedside, comfortable in no apparent distress. On 2 L/m HEAD: Normocephalic. EYES: Normal reaction of pupils, equal size. NOSE: Clear with pink turbinates. THROAT: No erythema or exudates. NECK: No masses, no JVD. CHEST: No chest wall deformity. LUNGS: Equal air entry with coarse crackles in the posterior bases CVS: S1 and S2 normal with no audible murmur, regular rhythm. ABDOMEN: Soft, slightly tender, retention sutures in place, normal bowel sounds, no guarding or rigidity. SPINE: No scoliosis or deformity SKIN: No rashes CENTRAL NERVOUS SYSTEM: No focal deficits, tone is normal in all 4 extremities. EXTREMITIES: There is no peripheral edema. No clubbing, no cyanosis. Peripheral pulses are intact. - Labs CBC & Chem 7: 02/11/19 02:56 02/11/19 02:56 Labs: Abnormal Lab Results - Last 24 Hours (Table) 02/11/19 02/11/19 02/11/19 Range/Units 02:56 02:56 12:01 RBC 3.47 L (4.30-5.90) m/uL Hgb 10.6 L (13.0-17.5) gm/dL Hct 34.0 L (39.0-53.0) % RDW 17.2 H (11.5-15.5) % Sodium 131 L (137-145) mmol/L Creatinine 0.56 L (0.66-1.25) mg/dL POC Glucose (mg/dL) 117 H (75-99) mg/dL Calcium 7.7 L (8.4-10.2) mg/dL Total Protein 4.8 L (6.3-8.2) g/dL Albumin 2.3 L (3.5-5.0) g/dL Microbiology - Last 24 Hours (Table) 02/09/19 17:47 Blood Culture - Preliminary Blood No Growth after 24 hours Assessment and Plan Assessment: Impression: #1 Altered mental status and medical debility secondary to prolonged recent hospitalization. #2 Pulmonary fibrosis, no clear indication of acute process. #3 Moderate chronic obstructive pulmonary disease, currently inactive and stable. #4 Chronic hypoxemic respiratory failure secondary to above. #5 Obstructive sleep apnea not currently on CPAP, patient intolerant. #6 Recent hospitalization for acute duodenal ulcer perforation with pneumoperitoneum, status post exploratory laparotomy, repair of perforated duodenal ulcers as well as repair of incarcerated umbilical hernia. #7 History of rheumatoid arthritis. #8 Chronic back pain. #9 Hyperlipidemia. #10History of anxiety/depression. #11 History of nicotine dependence. #12 History of daily alcohol use. #13 Poor overall functional performance based on the above-mentioned multiple comorbidities. Plan: The patient was seen and evaluated by Dr. Mireles. We'll continue with the current treatment plan. Overall prognosis is guarded. We will continue to follow and make further recommendations based on his clinical status. I, the cosigning physician, performed a history & physical examination of the patient. Lungs sounds with coarse crackles in the posterior bases. Maintaining good O2 saturations in the 90s on 2 L/m per nasal cannula I discussed the assessment and plan of care with my nurse practitioner, Priscilla Mike. I attest to the above note as dictated by her.
[2019-02-11] MEDS ORDERED: VANCOMYCIN 1,000 MG in SODIUM CHLORIDE 0.9% 250 ML IVPB SCH (14:00)
[2019-02-11 17:11] LABS: Glucose,Whole Blood 148 mg/dL (75-99)
[2019-02-11] MEDS ORDERED: MIRTAZAPINE 15 MG TAB PO SCH (18:00)
[2019-02-11 20:22] LABS: Glucose,Whole Blood 167 mg/dL (75-99)
[2019-02-11] MEDS: MELATONIN 5 MG TABLET PO SCH (20:48)
[2019-02-11] MEDS ORDERED: LEVOFLOXACIN 500 MG TAB PO SCH (21:00)
[2019-02-11] MEDS: IPRATROPIUM-ALBUTEROL 3 ML NEB INHALATION PRN (21:16)
[2019-02-12] MEDS: HYDROcodone/APAP 10-325MG 1 EACH TAB PO PRN ×2 (01:08→09:46)
[2019-02-12] MEDS: ONDANSETRON 4 MG/2 ML VIAL IVP PRN ×2 (06:47→13:17)
[2019-02-12 07:27] LABS: Glucose,Whole Blood 101 mg/dL (75-99)
[2019-02-12 07:47] VITALS: BP 102/62; RESP 16; TEMP 98.4
[2019-02-12] MEDS: IPRATROPIUM-ALBUTEROL 3 ML NEB INHALATION PRN (07:47)
[2019-02-12] MEDS: SYMBICORT 160-4.5 MCG INHALER INHALATION SCH (07:47)
[2019-02-12 07:59] VITALS: PULSE 94
--- NOTE | 2019-02-12 08:03 | P.PN ---
Subjective Progress Note Date: 02/11/19 This is a 68-year-old male patient of Dr. Marina Cheema currently under the care of Dr. Holbrook at [facility] with past medical history of advanced steroid-dependent COPD, hyperlipidemia, rheumatoid arthritis, obstructive sleep apnea unable to tolerate CPAP, chronic hypoxic respiratory failure on home O2 at 3 L nasal cannula, generalized osteoarthritis, chronic back pain pseudomonas in sputum on last admission secondary to colonization or pseudomonal pneumonia. Known FVC of 72% and FEV1 of 46%. Patient had recent hospitalization January 22 through February 05 for perforated duodenal ulcer status post exploratory laparotomy with repair of perforated duodenal ulcer and repair of incarcerated umbilical hernia surgery performed by Dr. Levi. The patient was initially discharged home with home care but family admitted him to [facility] yesterday morning. He did have a cough with yellow sputum production. Patient had increased weakness and confusion and met sepsis criteria. Dr. Holbrook was contacted and recommended that patient be sent to [facility] emergency center for evaluation. He was af ebrile, heart rate 104, blood pressure 110/65, pulse ox 97%. White count was 14.5, hemoglobin 12.0, platelet count 474. Sodium 129, BUN 10 and creatinine 0.55, blood sugar 161. Lactic acid 2.1, ammonia less than 9. TSH 1.410. AST 62. Troponin negative. ProBNP 304. ABGs pH 7.48, pCO2 36, pO2 100, bicarb 27, total CO2 28, O2 saturation 97.8 on FiO2 of 36%. Urinalysis was clear nitrate and leukoesterase negative. Chest x-ray shows no definite acute process. Patient was started on Levaquin and vancomycin and admitted to the MedSur floor for suspected pneumonia. Consult with pulmonary medicine. Patient's is at the bedside and states that he is improved from yesterday he was very lethargic all weekend he also has had diarrhea for 4 days but he looks much better today. He has had no fever or chills. Sputum green colored and cough for a couple of days at least. 02/11: I repeat lab work shows a normal white count of 9.9, hemoglobin 10.6. Sodium is 131, BUN 11 creatinine was 0.56. Blood cultures no growth after 24 hours. Patient remains afebrile, blood pressure 104/65, pulse ox 96% on 2 L nasal cannula, heart rate 84. Sputum culture is in process. Incentive spiromet ry added. Patient complains of decreased appetite and nausea Zofran was added. Patient family of ongoing concerns regarding depression decreased appetite and lack of sleeping. Melatonin did not seem to help much. Patient is currently on Zoloft and was taken off this placed on Prozac and was unable to tolerate this and return to Zoloft. We will add on Remeron at night to help with symptoms. L orazepam will be discontinued. PT and OT added. Patient has been seen by Dr. Levi will plan to remove sutures before he is discharged from the hospital. Objective - Vital Signs Vital signs: Vital Signs Temp 98 F 02/11/19 07:00 Pulse 84 02/11/19 07:00 Resp 12 02/11/19 07:00 BP 104/65 02/11/19 07:00 Pulse Ox 96 02/11/19 07:00 Intake & Output 02/10/19 02/11/19 02/11/19 18:59 06:59 18:59 Intake Total 1050 880 Balance 1050 880 Intake: IV 1050 Sodium Chloride 0.9% 1, 800 000 ml @ 100 mls/hr IV . Q10H [facility] Rx#:[id number] Vancomycin 1,250 mg In 250 Sodium Chloride 0.9% 250 ml @ 125 mls/hr IVPB Q8H [facility] Rx#:[id number] Intake, IV Titration 400 Amount Levofloxacin 750Mg-D5w 150 Pmx 750 mg In Dextrose/ Water 1 150ml.bag @ 100 mls/hr IVPB Q24H [facility] Rx#: [id number] Vancomycin 1,250 mg In 250 Sodium Chloride 0.9% 250 ml @ 125 mls/hr IVPB Q8H [facility] Rx#:[id number] Oral 480 Other: # Voids 3 - Exam Review of Systems Constitutional: Reports fatigue, Reports lethargy, Reports malaise, Reports poor appetite, Reports weakness, Denies chills, Denies fever Ears, nose, mouth and throat: Denies nasal congestion, Denies nasal discharge, Denies vertigo Cardiovascular: Reports decreased exercise tolerance, Reports dyspnea on exertion, Reports shortness of breath, Denies edema, Denies leg edema, Denies lightheadedness, Denies syncope Respiratory: Reports cough, Reports cough with sputum, Reports dyspnea, Reports excessive sputum, Reports home oxygen, Denies hemoptysis Gastrointestinal: Reports diarrhea, Denies abdominal pain, Denies loss of appetite, Denies nausea, Denies vomiting Genitourinary: Denies dysuria, Denies urinary retention Musculoskeletal: Reports muscle weakness, Denies frequent falls, Denies gait dysfunction, Denies myalgias Integumentary: Denies pruritus, Denies rash, Denies wounds Neurological: Reports change in mentation, Reports confusion, Denies aphasia, Denies change in speech, Denies gait dysfunction, Denies head injury, Denies sei zures, Denies syncope, Denies vertigo Psychiatric: Denies anxiety, reports depression, reports insomnia, reports anorexia Gen: This is a 68-year-old male. Patient is resting in a recliner appears to be comfortable and in no acute distress. HEENT: Head is atraumatic, normocephalic. Pupils equal, round. Sclerae is anicteric. NECK: Supple. No JVD. No lymphadenopathy. No thyromegaly. LUNGS: Coarse crackles bilaterally. No intercostal retractions. HEART: Regular rate and rhythm. No murmur. ABDOMEN: Soft. Bowel sounds are present. No masses. No tenderness. EXTREMITIES: No pedal edema. No calf tenderness. NEUROLOGICAL: Patient is awake, alert and oriented x3. Cranial nerves 2 through 12 are grossly intact. - Labs CBC & Chem 7: 02/11/19 02:56 02/11/19 02:56 Labs: Abnormal Lab Results - Last 24 Hours (Table) 02/10/19 02/10/19 02/11/19 Range/Units 10:37 10:37 02:56 WBC 13.8 H (3.8-10.6) k/uL RBC 3.94 L 3.47 L (4.30-5.90) m/uL Hgb 11.9 L 10.6 L (13.0-17.5) gm/dL Hct 38.1 L 34.0 L (39.0-53.0) % RDW 18.1 H 17.2 H (11.5-15.5) % Sodium 133 L (137-145) mmol/L Creatinine 0.58 L (0.66-1.25) mg/dL Calcium 8.0 L (8.4-10.2) mg/dL Total Protein (6.3-8.2) g/dL Albumin (3.5-5.0) g/dL 02/11/19 Range/Units 02:56 WBC (3.8-10.6) k/uL RBC (4.30-5.90) m/uL Hgb (13.0-17.5) gm/dL Hct (39.0-53.0) % RDW (11.5-15.5) % Sodium 131 L (137-145) mmol/L Creatinine 0.56 L (0.66-1.25) mg/dL Calcium 7.7 L (8.4-10.2) mg/dL Total Protein 4.8 L (6.3-8.2) g/dL Albumin 2.3 L (3.5-5.0) g/dL Microbiology - Last 24 Hours (Table) 02/09/19 17:47 Blood Culture - Preliminary Blood No Growth after 24 hours Assessment and Plan Plan: 1. Mental status changes, metabolic encephalopathy multifactorial including hyponatremia, COPD and chronic respiratory failure, pulmonary fibrosis and recent extended hospitalization. 2. Hyponatremia secondary to diarrhea. Check stool for C. difficile toxin negative. Patient was on IV fluids 100 mL per hour. Recheck lab work in the morning. 3. Advanced COPD with pulmonary fibrosis, steroid dependent and chronic hypoxic and hypercapnic respiratory failure on home O2 at 3 L. pneumonia is doubtful per Dr. Mireles. Continue Symbicort, DuoNeb treatments, Levaquin and vancomycin, prednisone 10 mg daily. 4. Rheumatoid arthritis, stable. 5. Recent hospitalization for perforated duodenal ulcer status post exploratory laparotomy with repair of perforated duodenal ulcer and repair of incarcerated umbilical hernia surgery performed by Dr. Levi. Consult with Dr. Levi. Patient is currently on a regular diet. Sutures to be removed prior to dis charge. 6. Hyperlipidemia. 7. Obstructive sleep apnea unable to tolerate CPAP. 8. Chronic back pain and generalized osteoarthritis. 9. Severe protein calorie malnutrition. Ensure added. 10. Generalized anxiety disorder and recurrent depression. Continue Zoloft 100 mg daily, Ativan discontinued. Remeron added. 11. DVT prophylaxis. Continue Lovenox daily 10. GI prophylaxis. Continue Protonix daily. 12. Insomnia. Melatonin added. Discharge plan: Return to [facility] most likely on . PT and OT. Impression and plan of care have been directed as dictated by the signing physician. Albania Salinas nurse practitioner acting as scribe for signing physician.
--- NOTE | 2019-02-12 08:12 | P.DS ---
Providers Date of admission: 02/09/19 20:07 Expected date of discharge: 02/12/19 Attending physician: Razia Holbrook Consults: 02/09/19 20:03 Consult Physician Routine Consulting Provider: Gabbie aSntos Consult Reason/Comments: pneumonia Do you want consulting provider notified?: Yes 02/10/19 12:36 Consult Physician Routine Consulting Provider: Chucky Levi Consult Reason/Comments: postop care Do you want consulting provider notified?: Yes Primary care physician: Razia Holbrook Hospital Course: This is a 68-year-old male patient of Dr. Marina Cheema currently under the care of Dr. Holbrook at [facility] with past medical history of advanced steroid-dependent COPD, hyperlipidemia, rheumatoid arthritis, obstructive sleep apnea unable to tolerate CPAP, chronic hypoxic respiratory failure on home O2 at 3 L nasal cannula, generalized osteoarthritis, chronic back pain pseudomonas in sputum on last admission secondary to colonization or pseudomonal pneumonia. Known FVC of 72% and FEV1 of 46%. Patient had recent hospitalization January 22 through February 05 for perforated duodenal ulcer status post exploratory laparotomy with repair of perforated duodenal ulcer and repair of incarcerated umbilical hernia surgery performed by Dr. Levi. The patient was initially discharged home with home care but family admitted him to [facility] yesterday morning. He did have a cough with yellow sputum production. Patient had increased weakness and confusion and met sepsis criteria. Dr. Holbrook was contacted and recommended that patient be sent to [facility] emergency center for evaluation. He was afebrile, heart rate 104, blood pressure 110/65, pulse ox 97%. White count was 14.5, hemoglobin 12.0, platelet count 474. Sodium 129, BUN 10 and creatinine 0.55, blood sugar 161. Lactic acid 2.1, ammonia less than 9. TSH 1.410. AST 62. Troponin negative. ProBNP 304. ABGs pH 7.48, pCO2 36, pO2 100, bicarb 27, total CO2 28, O2 saturation 97.8 on FiO2 of 36%. Urinalysis was clear nitrate and leukoesterase negative. Chest x-ray shows no definite acute process. Patient was started on Levaquin and vancomycin and admitted to the MedSur floor for suspected pneumonia. Consult with pulmonary medicine. Patient's is at the bedside and states that he is improved from yesterday he was very lethargic all weekend he also has had diarrhea for 4 days but he looks much better today. He has had no fever or chills. Sputum green colored and cough for a couple of days at least. 02/11: I repeat lab work shows a normal white count of 9.9, hemoglobin 10.6. Sodium is 131, BUN 11 creatinine was 0.56. Blood cultures no growth after 24 hours. Patient remains afebrile, blood pressure 104/65, pulse ox 96% on 2 L nasal cannula, heart rate 84. Sputum culture is in process. Incentive spirometry added. Patient complains of decreased appetite and nausea Zofran was added. Patient family of ongoing concerns regarding depression decreased appetite and lack of sleeping. Melatonin did not seem to help much. Patient is currently on Zoloft and was taken off this placed on Prozac and was unable to tolerate this and return to Zoloft. We will add on Remeron at night to help with symptoms. Lorazepam will be discontinued. PT and OT added. Patient has been seen by Dr. Levi will plan to remove sutures before he is discharged from the hospital. 02/12: Patient remains afebrile, heart rate 94, blood pressure 102/62, pulse ox 95% on 3 L nasal cannula. Yesterday antibiotics were changed from IV Levaquin 750 and vancomycin IV were discontinued and patient placed on Levaquin 500 daily oral for tracheobronchitis. The patient has had no further diarrhea. Sputum culture remains in progress and blood cultures showing no growth at 48 hours. Patient has worked with PT and OT with recommendations for subacute rehab. Patient denies any new complaints. He states he is eating fine. Breathing status is stable at this point. Patient will be discharged back to [facility] today in stable condition. Discharge diagnoses: 1. Mental status changes, metabolic encephalopathy multifactorial including hyponatremia, COPD and chronic respiratory failure, pulmonary fibrosis and recent extended hospitalization. 2. Hyponatremia secondary to diarrhea. 3. Advanced COPD with pulmonary fibrosis, steroid dependent and chronic hypoxic and hypercapnic respiratory failure on home O2 at 3 L. pneumonia is doubtful per Dr. Mireles. 4. Rheumatoid arthritis, stable. 5. Recent hospitalization for perforated duodenal ulcer status post exploratory laparotomy with repair of perforated duodenal ulcer and repair of incarcerated umbilical hernia surgery performed by Dr. Levi. 6. Hyperlipidemia. 7. Obstructive sleep apnea unable to tolerate CPAP. 8. Chronic back pain and generalized osteoarthritis. 9. Severe protein calorie malnutrition. 10. Generalized anxiety disorder and recurrent depression. 11. Insomnia. Melatonin added. Discharge plan: Return to [facility] Impression and plan of care have been directed as dictated by the signing physician. Albania Salinas nurse practitioner acting as scribe for signing physician. Patient Condition at Discharge: Good Plan - Discharge Summary Discharge Rx Participant: Yes New Discharge Prescriptions: New Levofloxacin [Levaquin] 500 mg PO Q24H #3 tab Melatonin 10 mg PO HS tablet Mirtazapine [Remeron] 7.5 mg PO 1800 tab Continue predniSONE 10 mg PO DAILY #30 tab Ipratropium-Albuterol Nebulize [Duoneb 0.5 mg-3 mg/3 ml Soln] 3 ml INHALATION RT-Q6H #120 ampul.neb Furosemide [Lasix] 40 mg PO DAILY #30 tab Pantoprazole [Protonix] 40 mg PO AC-BRKFST #30 tablet. Potassium Chloride [Klor-Con 20] 20 meq PO BID Budesonide/Formoterol Fumarate [Symbicort 160-4.5 Mcg Inhaler] 1 puff IH RT- BID Sertraline [Zoloft] 100 mg PO DAILY HYDROcodone/APAP 10-325MG [[place] 10-325] 1 tab PO Q8H PRN #9 tab PRN Reason: Pain Discontinued LORazepam [Ativan] 1 mg PO TID PRN PRN Reason: Anxiety Fluconazole [Diflucan] 200 mg PO DAILY #5 tab metroNIDAZOLE [Flagyl] 500 mg PO TID #10 tab Amoxic-Pot Clav 875-125Mg [Augmentin 875-125] 1 tab PO Q12HR #8 tablet Discharge Medication List predniSONE 10 mg PO DAILY #30 tab 02/05/18 [Rx] Furosemide [Lasix] 40 mg PO DAILY #30 tab 02/06/19 [Rx] Ipratropium-Albuterol Nebulize [Duoneb 0.5 mg-3 mg/3 ml Soln] 3 ml INHALATION RT-Q6H #120 ampul.neb 02/06/19 [Rx] Pantoprazole [Protonix] 40 mg PO AC-BRKFST #30 tablet. 02/06/19 [Rx] Budesonide/Formoterol Fumarate [Symbicort 160-4.5 Mcg Inhaler] 1 puff IH RT-BID 02/09/19 [History] Potassium Chloride [Klor-Con 20] 20 meq PO BID 02/09/19 [History] Sertraline [Zoloft] 100 mg PO DAILY 02/09/19 [History] HYDROcodone/APAP 10-325MG [[place] 10-325] 1 tab PO Q8H PRN #9 tab 02/12/19 [Rx] Levofloxacin [Levaquin] 500 mg PO Q24H #3 tab 02/12/19 [Rx] Melatonin 10 mg PO HS tablet 02/12/19 [Rx] Mirtazapine [Remeron] 7.5 mg PO 1800 tab 02/12/19 [Rx] Follow up Appointment(s)/Referral(s): Razia Holbrook MD [Primary Care Provider] - 1 Week (at [facility]) Chucky Levi MD [Medical Doctor] - 1 Week Activity/Diet/Wound Care/Special Instructions: Change midline abdominal wound with Aquacel silver gauze every other day. Discharge Disposition: TRANSFER TO SNF/ECF
[2019-02-12] MEDS: SERTRALINE 100 MG TAB PO SCH (08:25)
[2019-02-12] MEDS: POTASSIUM CHLORIDE ER 20 MEQ TAB.ER PO SCH (08:25)
[2019-02-12] MEDS: PANTOPRAZOLE 40 MG TABLET PO SCH (08:25)
[2019-02-12] MEDS: FUROSEMIDE 40 MG TAB PO SCH (08:25)
[2019-02-12] MEDS: predniSONE 10 MG TAB PO SCH (08:25)
[2019-02-12] MEDS: ENOXAPARIN 40 MG/0.4 ML SYRINGE SQ SCH (08:25)
[2019-02-12 11:40] LABS: Glucose,Whole Blood 127 mg/dL (75-99)
--- NOTE | 2019-02-12 14:26 | P.PN ---
Subjective Progress Note Date: 02/12/19 Principal diagnosis: Altered mental status and medical debility This a very pleasant 68-year-old gentleman with a known history of hyperlipidemia, rheumatoid arthritis, obstructive sleep apnea intolerant to CPAP, significant COPD with FEV1 value of 46% of predicted, pulmonary fibrosis and home oxygen at 3.5 L, former smoker, daily alcohol use. He was just recently discharged from here on 02/06/2019 after sustaining an acute duodenal ulcer with perforation and pneumoperitoneum. Status post exploratory laparotomy, repair perforated ulcer as well as repair of incarcerated umbilical hernia. He was discharged home on Augmentin, Flagyl, Diflucan. Retention sutures still in place. He was brought back here to the emergency room yesterday after developing altered mental status and profound weakness. His had given him initially to a shelter for placement but they said he was too ill and was referred here to the emergency department. Chest x-ray revealed no acute pulmonary process. Abdomen revealed no acute process. He is seen today in consultation on the regular medical floor. He is currently sitting up in a chair at the bedside. Awake and alert in no acute distress. Somewhat confused to date and time. Aware he is in the hospital. He is currently afebrile. Maintaining O2 saturations in the mid 90s on 3 L/m per nasal cannula. Hemodynamically stable. White count 13.8. Hemoglobin 11.9. Creatinine 0.58. Arterial blood gases revealed a PaO2 of 100, pCO2 36, pH 7.48. He's been initiated on vancomycin and Levaquin. The patient was seen today 02/11/2019 in follow-up on the regular medical floor. He is awake and alert currently sitting up in a chair at the bedside. He denies any worsening shortness of breath, cough or congestion. Maintaining good O2 saturations in the 90s on 2 L/m per nasal cannula. Afebrile. A culture reveals no growth to date. White count 9.9. Hemoglobin 10.6. Creatinine 0.56. He remains on DuoNeb inhalations, Symbicort, Levaquin. On 02/12/2019 patient seen in follow-up on medical surgical floor. He is resting comfortably in the recliner, in no acute distress, he denies any shortness of breath. Lung sounds are positive for a few scattered crackles at the bases, no rhonchi, no wheezes. He is on 3 L of oxygen with a pulse ox of 95%, hemodynamics are stable, no fever or chills. Blood and sputum cultures are pending, no organisms seen so far and Gram stain. He remains weak, but improving, no altered mentation, he is responding appropriately. No abdominal pain, retention sutures are intact. Tolerating oral diet. Objective - Vital Signs Vital signs: Vital Signs Temp 98.4 F 02/12/19 07:00 Pulse 94 02/12/19 07:58 Resp 16 02/12/19 07:00 BP 102/62 02/12/19 07:00 Pulse Ox 95 02/12/19 07:47 Intake & Output 02/11/19 02/12/19 02/12/19 18:59 06:59 18:59 Intake Total 950 830 Output Total 300 Balance 950 530 Weight 74.843 kg Intake: IV 250 Vancomycin 1,250 mg In 250 Sodium Chloride 0.9% 250 ml @ 125 mls/hr IVPB Q8H [facility] Rx#:[id number] Intake, IV Titration 100 Amount Levofloxacin 750Mg-D5w 100 Pmx 750 mg In Dextrose/ Water 1 150ml.bag @ 100 mls/hr IVPB Q24H [facility] Rx#: [id number] Oral 600 830 Output: Urine 300 Other: Voiding Method Diaper Incontinent # Voids 1 1 1 - Exam GENERAL EXAM: Alert, table in no apparent distress. HEAD: Normocephalic/atraumatic. EYES: Normal reaction of pupils, equal size. Conjunctiva pink, sclera white. NOSE: Clear with pink turbinates. THROAT: No erythema or exudates. NECK: No masses, no JVD, no thyroid enlargement, no adenopathy. CHEST: No chest wall deformity. Symmetrical expansion. LUNGS: Equal air entry with scattered crackles, wheeze, rhonchi or dullness. CVS: Regular rate and rhythm, normal S1 and S2, no gallops, no murmurs, no rubs ABDOMEN: Soft, nontender. No hepatosplenomegaly, normal bowel sounds, no guarding or rigidity. EXTREMITIES: No clubbing, no edema, no cyanosis, 2+ pulses and upper and lower extremities. MUSCULOSKELETAL: Muscle strength and tone normal. SPINE: No scoliosis or deformity SKIN: No rashes CENTRAL NERVOUS SYSTEM: Alert and oriented -3. No focal deficits, tone is normal in all 4 extremities. PSYCHIATRIC: Alert and oriented -3. Appropriate affect. Intact judgment and insight. - Labs CBC & Chem 7: 02/11/19 02:56 02/11/19 02:56 Labs: Abnormal Lab Results - Last 24 Hours (Table) 02/11/19 02/11/19 02/12/19 Range/Units 17:00 20:21 07:16 POC Glucose (mg/dL) 148 H 167 H 101 H (75-99) mg/dL 02/12/19 Range/Units 11:28 POC Glucose (mg/dL) 127 H (75-99) mg/dL Microbiology - Last 24 Hours (Table) 02/11/19 09:36 Gram Stain - Preliminary Sputum Sputum Culture - Preliminary 02/09/19 17:47 Blood Culture - Preliminary Blood No Growth after 48 hours Assessment and Plan Plan: #1 Altered mental status and medical debility secondary to prolonged recent ho spitalization. #2 Pulmonary fibrosis, no clear indication of acute process. #3 Moderate chronic obstructive pulmonary disease, currently inactive and stable. #4 Chronic hypoxemic respiratory failure secondary to above. #5 Obstructive sleep apnea not currently on CPAP, patient intolerant. #6 Recent hospitalization for acute duodenal ulcer perforation with pneumoperitoneum, status post exploratory laparotomy, repair of perforated duodenal ulcers as well as repair of incarcerated umbilical hernia. #7 History of rheumatoid arthritis. #8 Chronic back pain. #9 Hyperlipidemia. #10History of anxiety/depression. #11 History of nicotine dependence. #12 History of daily alcohol use. #13 Poor overall functional performance based on the above-mentioned multiple comorbidities. Plan: Patient is stable from pulmonary perspective, he can continue nebulized bronchodilators, no altered mentation, vital signs are stable, cultures are negative thus far. No fever or chills. Tolerating oral diet. He is being discharged to rehab today I performed a history & physical examination of the patient and discussed their management with my nurse practitioner, Stella Powers. I reviewed the nurse practitioner's note and agree with the documented findings and plan of care. Lung sounds are positive for a few scattered crackles at the bases. The findings and the impression was discussed with the patient. I attest to the documentation by the nurse practitioner. Time with Patient: Less than 30
== END 2019-02-12 13:40 | DRG 196 ==
LOC: EC 17:05 → 4MS4W 20:07 → 4SSUR 20:52
PROVIDERS: ADMIT Family Medicine; ATTEND Family Medicine
DX: J84.10 Pulmonary fibrosis, unspecified (principal); E43 Unspecified severe protein-calorie malnutrition; G93.41 Metabolic encephalopathy; E87.1 Hypo-osmolality and hyponatremia; F33.9 Major depressive disorder, recurrent, unspecified; J96.11 Chronic respiratory failure with hypoxia; J44.0 Chronic obstructive pulmonary disease with (acute) lower respiratory infection; J96.12 Chronic respiratory failure with hypercapnia; Z68.25 Body mass index [BMI] 25.0-25.9, adult; E78.5 Hyperlipidemia, unspecified; F41.1 Generalized anxiety disorder; G47.00 Insomnia, unspecified; G47.33 Obstructive sleep apnea (adult) (pediatric); G89.29 Other chronic pain; I49.3 Ventricular premature depolarization; M06.9 Rheumatoid arthritis, unspecified; M15.9 Polyosteoarthritis, unspecified; Z79.51 Long term (current) use of inhaled steroids; Z79.52 Long term (current) use of systemic steroids; Z79.899 Other long term (current) drug therapy; Z80.0 Family history of malignant neoplasm of digestive organs; Z80.6 Family history of leukemia; Z83.3 Family history of diabetes mellitus; Z87.11 Personal history of peptic ulcer disease; Z87.891 Personal history of nicotine dependence; Z96.1 Presence of intraocular lens; Z99.81 Dependence on supplemental oxygen; Z88.1 Allergy status to other antibiotic agents; Z98.42 Cataract extraction status, left eye; Z98.41 Cataract extraction status, right eye; Z82.3 Family history of stroke; M54.9 Dorsalgia, unspecified; J20.9 Acute bronchitis, unspecified
CPT/HCPCS: 36415; 36600; 74022; 80048; 80053; 80202; 81003; 82140; 82805; 83605; 83690; 83735; 83880; 84100; 84443; 84484; 85025; 85027; 85610; 85730; 87040; 87070; 87077; 87186; 87205; 93005; 94640; 94760; 96365; 96366; 96368; 96375; 99285

== ENCOUNTER 2019-03-14 07:05 | Inpatient (IN) | payer MEDICARE, OTHER ==
--- NOTE | 2019-03-14 07:35 | ED ---
General Adult HPI <Lex Becerra - Last Filed: 03/14/19 10:10> - General Source: patient, family Mode of arrival: wheelchair <Светлана Carlos - Last Filed: 03/14/19 11:08> - General Chief complaint: Chest Pain Stated complaint: Abdominal Pain Time Seen by Provider: 03/14/19 07:26 - History of Present Illness Initial comments: 68-year-old male patient who is status post laparotomy with repair of perforated duodenal ulcer and incarcerated umbilical hernia on 01/22/2019 presents to the emergency department today for evaluation of pain to his incision. Patient states that he developed swelling to the superior portion of the incision yesterday. Family member states that the area of swelling has enlarged and is now feeling warm to touch and becoming red. Patient states that the area is very tender to touch and painful. Patient denies any drainage from the incision. Denies any nausea or vomiting. States his bowel movements have been normal. Denies any hematochezia or melena. Denies any fever or chills with th is. Patient denies any recent rash, shortness breath, chest pain, back pain, numbness, tingling, dizziness, weakness, hematuria, dysuria, urinary urgency, urinary frequency, headache, visual changes, or any other complaints. (Светлана Carlos) - Related Data Home Medications Medication Instructions Recorded Confirmed Budesonide/Formoterol Fumarate 1 puff INHALATION RT-BID 02/09/19 03/14/19 [Symbicort 160-4.5 Mcg Inhaler] Potassium Chloride [Klor-Con 20] 20 meq PO BID 02/09/19 03/14/19 Sertraline [Zoloft] 100 mg PO DAILY 02/09/19 03/14/19 Acetaminophen Tab [Tylenol Tab] 650 mg PO Q4H PRN 03/14/19 03/14/19 Mirtazapine [Remeron] 7.5 mg PO HS@1800 03/14/19 03/14/19 Previous Rx's Medication Instructions Recorded predniSONE 10 mg PO DAILY #30 tab 02/05/18 Furosemide [Lasix] 40 mg PO DAILY #30 tab 02/06/19 Ipratropium-Albuterol Nebulize 3 ml INHALATION RT-Q6H #120 02/06/19 [Duoneb 0.5 mg-3 mg/3 ml Soln] ampul.skyla Pantoprazole [Protonix] 40 mg PO BOLA-MIKAELAKFST #30 tablet. 02/06/19 HYDROcodone/APAP 10-325MG [[place] 1 tab PO Q8H PRN #9 tab 02/12/19 10-325] Melatonin 10 mg PO HS tablet 02/12/19 Allergies Allergy/AdvReac Type Severity Reaction Status Date / Time amoxicillin AdvReac Nausea & Verified 03/14/19 08:59 Vomiting Review of Systems ROS Other: All systems not noted in ROS Statement are negative. <Lex Becerra - Last Filed: 03/14/19 10:10> ROS Other: All systems not noted in ROS Statement are negative. <Светлана Carlos - Last Filed: 03/14/19 11:08> ROS Statement: Those systems with pertinent positive or pertinent negative responses have been documented in the HPI. Past Medical History Past Medical History: COPD, Hyperlipidemia, Osteoarthritis (OA), Pneumonia, Rheumatoid Arthritis (RA), Sleep Apnea/CPAP/BIPAP Additional Past Medical History / Comment(s): Pneumonia with sepsis twice-10/2017 and in 2016. 3.5L home o2, PATTY with no device (cannot tolerate), recently injured low back-saw Dr. Dye. Rheumatoid arthritis in bilateral hips,knees hands and back. History of Any Multi-Drug Resistant Organisms: None Reported Past Surgical History: Orthopedic Surgery Additional Past Surgical History / Comment(s): bilateral cataract removals with lens implants, left knee arthroscopy, colonoscopy, GI perforated ulcer. Past Anesthesia/Blood Transfusion Reactions: No Reported Reaction Past Psychological History: Anxiety, Depression Smoking Status: Former smoker Past Alcohol Use History: Daily Past Drug Use History: None Reported - Past Family History Father Family Medical History: Cancer Additional Family Medical History / Comment(s): Father of leukemia. Mother Family Medical History: Cancer, CVA/TIA, Dementia, Diabetes Mellitus Additional Family Medical History / Comment(s): Mother is 88yrs old with history of dementia and colon cancer. Sister(s) Additional Family Medical History / Comment(s): Patient has 1 full sister with history of lung cancer. Patient has one half-sister with adrenal problems. Patient does not have any brothers. Patient 3 sons with no major medical problems. <Светлана Carlos - Last Filed: 03/14/19 11:08> General Exam General appearance: alert, in no apparent distress, other (Physical well- developed, well-nourished adult male patient in no acute distress. Vital signs upon presentation are temperature 97.5F, pulse 121, respirations 20, blood pressure 103/64, pulse ox 90% on 3 L.) Eye exam: Present: normal appearance, PERRL, EOMI. Absent: scleral icterus, conjunctival injection, periorbital swelling ENT exam: Present: normal exam, normal oropharynx, mucous membranes moist Respiratory exam: Present: other (Crackles at the bilateral lung bases). Absent: normal lung sounds bilaterally, respiratory distress, wheezes, rales, rhonchi, stridor Cardiovascular Exam: Present: normal rhythm, tachycardia, normal heart sounds. Absent: systolic murmur, diastolic murmur, rubs, gallop, clicks GI/Abdominal exam: Present: soft, tenderness (There is tenderness over the upper part of the midline abdominal incision), normal bowel sounds, other (There is a well-healed midline abdominal incision with swelling, erythema, and tenderness over the superior portion. No drainage.). Absent: distended, guarding, rebound, rigid Neurological exam: Present: alert, oriented X3, CN II-XII intact Psychiatric exam: Present: normal affect, normal mood Skin exam: Present: warm, dry, intact, normal color. Absent: rash <Светлана Carlos M - Last Filed: 03/14/19 11:08> Course <Lex Becerra - Last Filed: 03/14/19 10:10> Vital Signs 03/14/19 03/14/19 03/14/19 07:10 07:46 09:04 Temperature 97.5 F L Pulse Rate 121 H 108 H 102 H Respiratory 20 22 20 Rate Blood Pressure 103/64 95/72 97/70 O2 Sat by Pulse 90 L 96 97 Oximetry 03/14/19 09:56 Temperature Pulse Rate 99 Respiratory 18 Rate Blood Pressure 91/63 O2 Sat by Pulse 97 Oximetry - Reevaluation(s) Reevaluation #1: 03/14/19 10:11 COPPER ETCHER supervision: I proceeded [id number] evaluation patient did reevaluate him on several occasions patient does demonstrate evidence of abdominal pain at this superior portion of the incision on his abdomen increased swelling and some localized erythema and increased temperature. CAT scan does show evidence of a abdominal wall abscess. Patient was seen by Dr. Levi in emergency department will be admitted for IV antibiotics and likely incision and drainage. I do agree with the assessment and plan (Lex Becerra) Medical Decision Making - Lab Data Result diagrams: 03/14/19 07:44 03/14/19 07:44 <Lex Becerra - Last Filed: 03/14/19 10:10> - Lab Data Result diagrams: 03/14/19 07:44 03/14/19 07:44 - Radiology Data Radiology results: report reviewed, image reviewed <Светлана Carlos - Last Filed: 03/14/19 11:08> - Medical Decision Making 68-year-old male patient who is status post open laparotomy for perforated duodenal ulcer and incarcerated umbilical hernia repair on 01/22/2019 presented to the emergency department for evaluation of increased pain and swelling at the upper part of his incision. Physical examination did reveal swelling, tenderness, and warmth to the superior aspect of the incision. Labs reviewed and did reveal elevated white blood cell count at 25. Remainder of labs were unremarkable. We did give IV fluids. CT abdomen and pelvis did show multiple developing abscesses. Dr. Levi patient surgeon was in to see and evaluate him, he'll be admitted to the hospital with IV antibiotics. Patient initially be provided. Patient is agreeable with this plan. (Светлана Carlos) - Lab Data Lab Results 03/14/19 03/14/19 03/14/19 Range/Units 07:44 07:44 07:44 WBC 25.0 H (3.8-10.6) k/uL RBC 4.23 L (4.30-5.90) m/uL Hgb 12.6 L (13.0-17.5) gm/dL Hct 39.4 (39.0-53.0) % MCV 93.1 D (80.0-100.0) fL MCH 29.7 (25.0-35.0) pg MCHC 31.9 (31.0-37.0) g/dL RDW 16.1 H (11.5-15.5) % Plt Count 595 H (150-450) k/uL Neutrophils % 89 % Lymphocytes % 6 % Monocytes % 4 % Eosinophils % 0 % Basophils % 0 % Neutrophils # 22.2 H (1.3-7.7) k/uL Lymphocytes # 1.4 (1.0-4.8) k/uL Monocytes # 0.9 (0-1.0) k/uL Eosinophils # 0.1 (0-0.7) k/uL Basophils # 0.1 (0-0.2) k/uL Anisocytosis Slight Sodium 134 L (137-145) mmol/L Potassium 4.5 (3.5-5.1) mmol/L Chloride 97 L (98-107) mmol/L Carbon Dioxide 26 (22-30) mmol/L Anion Gap 11 mmol/L BUN 21 H (9-20) mg/dL Creatinine 0.67 (0.66-1.25) mg/dL Est GFR (CKD-EPI)AfAm >90 (>60 ml/min/1.73 sqM) Est GFR (CKD-EPI)NonAf >90 (>60 ml/min/1.73 sqM) Glucose 117 H (74-99) mg/dL Plasma Lactic Acid Steven 1.1 (0.7-2.0) mmol/L Calcium 9.2 (8.4-10.2) mg/dL Total Bilirubin 0.6 (0.2-1.3) mg/dL AST 21 (17-59) U/L ALT 42 (21-72) U/L Alkaline Phosphatase 100 (38-126) U/L Total Protein 6.4 (6.3-8.2) g/dL Albumin 3.2 L (3.5-5.0) g/dL Amylase 38 (30-110) U/L Lipase 92 (23-300) U/L - Radiology Data CT abdomen and pelvis is obtained with contrast. Report was reviewed in its entirety. Impression by Dr. Murphy shows Enlarging and more developed fluid collections in the epigastric region below the stomach margin. Developing intraabdominal abscesses are suspected. Due to the loculated irregular appearance percutaneous drainage would be extremely difficult. 2 view xray of the chest is obtained. Report was reviewed in its entirety. Impression by Dr. Murphy shows chronic parenchymal fibrotic and emphysematous changes without acute pulmonary process. (Светлана Carlos) Disposition <Lex Becerra - Last Filed: 03/14/19 10:10> Decision to Admit Reason: Admit from EC Decision Date: 03/14/19 Decision Time: 10:41 <Светлана Carlos - Last Filed: 03/14/19 11:08> Clinical Impression: Abdominal abscess Disposition: ADMITTED IP TO THIS [facility] Condition: Serious Referrals: Razia Holbrook MD [Primary Care Provider] - 1-2 days
[2019-03-14 08:06] LABS: Anisocytosis Slight; Basophils # (A) 0.1 k/uL (0-0.2); Basophils % (A) 0 %; Eosinophils # (A) 0.1 k/uL (0-0.7); Eosinophils % (A) 0 %; HCT 39.4 % (39.0-53.0); HGB 12.6 gm/dL (13.0-17.5); Lymphocytes # (A) 1.4 k/uL (1.0-4.8); Lymphocytes % (A) 6 %; MCH 29.7 pg (25.0-35.0); MCHC 31.9 g/dL (31.0-37.0); Mean Platelet Volume 6.5; Monocytes # (A) 0.9 k/uL (0-1.0); Monocytes % (A) 4 %; Neutrophils # (A) 22.2 k/uL (1.3-7.7); Neutrophils % (A) 89 %; Platelet Count 595 k/uL (150-450); RBC 4.23 m/uL (4.30-5.90); RDW 16.1 % (11.5-15.5)
[2019-03-14 08:14] LABS: ALT 42 U/L (21-72); AST 21 U/L (17-59); African American GFR (CKD) >90 (>60 ml/min/1.73 sqM); Albumin 3.2 g/dL (3.5-5.0); Alkaline Phosphatase 100 U/L (38-126); Amylase 38 U/L (30-110); Anion Gap 11 mmol/L; Blood Urea Nitrogen 21 mg/dL (9-20); Calcium 9.2 mg/dL (8.4-10.2); Carbon Dioxide 26 mmol/L (22-30); Chloride 97 mmol/L (98-107); Glucose 117 mg/dL (74-99); Lipase 92 U/L (23-300); Potassium 4.5 mmol/L (3.5-5.1); Sodium 134 mmol/L (137-145); Total Bilirubin 0.6 mg/dL (0.2-1.3); Total Protein 6.4 g/dL (6.3-8.2)
--- NOTE | 2019-03-14 08:26 | XR ---
EXAMINATION TYPE: XR chest 2V DATE OF EXAM: 03/14/2019 COMPARISON: Chest x-ray February 09, 2019 HISTORY: History of COPD with stomach and chest pain TECHNIQUE: Frontal and lateral views of the chest are obtained. FINDINGS: There is chronic emphysematous and parenchymal changes bilaterally without suspicious new focal air space opacity, pleural effusion, or pneumothorax seen. Mass or gross lobe/fissure is redemo nstrated. The cardiac silhouette size is stable at upper limits of normal. The osseous structures are intact. IMPRESSION: Chronic parenchymal fibrotic and emphysematous changes without acute pulmonary process.
[2019-03-14 08:40] LABS: MCV 93.1 fL (80.0-100.0)
--- NOTE | 2019-03-14 09:09 | CT ---
EXAMINATION TYPE: CT abdomen pelvis w con DATE OF EXAM: 03/14/2019 COMPARISON: CT abdomen and pelvis January 30, 2019 HISTORY: Epigastric pain, swelling, and heat along incision post duodenal repair. CT DLP: 670 mGycm, Automated Exposure Control for Dose Reduction was Utilized. CONTRAST: CT scan of the abdomen and pelvis is performed without oral but with IV Contrast, patient injected wi th 100 mL of Isovue 300. FINDINGS: LUNG BASES: Bibasilar linear scarring and/or atelectasis. LIVER/GB: No significant abnormality is appreciated. PANCREAS: No significant abnormality is seen. SPLEEN: Few calcifications throughout the spleen are redemonstrated. ADRENALS: Stable small left adrenal nodule or mass nonspecific axial image 24. KIDNEYS: Symmetric cartilage oriented uptake and excretion without hydronephrosis. Simple appearing 2 .2 cm cyst lower pole of the right kidney redemonstrated. Bladder shows mild wall thickening superior and left lateral aspect. Correlate clinically for cystitis. BOWEL: Evaluation bowel slightly suboptimal secondary to lack of enteric contrast. Stomach is poorly distended and suboptimally evaluated. No suspicious small or large bowel dilatation. Diverticula in t he left and sigmoid colon are present without CT evidence for acute diverticulitis. PROSTATE/SEMINAL VESICLES: No gross abnormality seen. LYMPH NODES: No greater than 1cm abdominal or pelvic lymph nodes are appreciated. OSSEOUS STRUCTURES: Mild to moderate height loss superior L3 endplate and mild height loss superior L 4 endplates are present. Effacement anterior spinal canal superior L3 endplate due to compression fra cture stable. OTHER: There is vertical scar overlying the anterior abdominal wall in the midline. There is some sub cutaneous air and fluid along scar. There is more prominent focal fluid collection deep to rectus lev el measuring 3.2 x 2.0 cm axial image 24 there is a larger thin-walled fluid collection seen deeper t o this extending to the midline measuring approximately 6.3 x 3.2 cm with smaller adjacent thin-jitendra d irregular fluid collections identified. They are just inferior to the stomach. They are larger and more defined from prior study. Interval removal of percutaneous drainage catheter noted. IMPRESSION: Given patient's history with enlarging more developed fluid collections in the epigastric region below stomach margin. Developing intra-abdominal abscesses are suspected. Due to loculated ir regular appearance percutaneous drainage would be extremely difficult.
[2019-03-14] MEDS ORDERED: PIPERACILLIN-TAZOBACTAM 3.375 GM in SODIUM CHLORIDE 0.9% 100 ML IVPB STA (09:16)
[2019-03-14] MEDS ORDERED: SODIUM CHLORIDE 0.9% 1,000 ML IV ONE (09:21)
[2019-03-14] MEDS ORDERED: MORPHINE SULFATE 2 MG/ML SYRINGE IVP STA (09:23)
[2019-03-14] MEDS ORDERED: ONDANSETRON 4 MG/2 ML VIAL IVP STA (09:23)
[2019-03-14] MEDS ORDERED: ACETAMINOPHEN TAB 325 MG TAB PO PRN (10:08)
[2019-03-14] MEDS ORDERED: NALOXONE 0.4 MG/ML 1 ML VIAL IV PRN (10:08)
[2019-03-14] MEDS ORDERED: ONDANSETRON 4 MG/2 ML VIAL IVP PRN (10:08)
--- NOTE | 2019-03-14 10:21 | P.GSHP ---
History of Present Illness H&P Date: 03/14/19 Chief Complaint: Abdominal pain 68-year-old male known to our service. Patient underwent exploratory laparotomy with repair of a duodenal ulcer on 01/24. He was just seen in the office a few days ago and was doing fairly well. Yesterday he called the office stating that he had a bulge at his upper abdomen incision site. Today the area was noted to increase in size slightly and was warm to the touch. They came to the ER for further evaluation. He has been having some mild intermittent upper abdominal discomfort. Postoperatively the patient had a follow-up CAT scan while his drain was still in place which showed no evidence of leak. At this time the patient's CAT scan was performed without contrast. There appears to be multiple small abscess collections involving the superficial subcutaneous tissues, fascial layer, and intra-abdominal location. His white blood cell count is elevated at 25,000. The duodenal sweep and stomach did not appear directly in contact with these fluid collections. Looking back at the previous CAT scan there was the suggestion of some fluid along the tract of the drain. Additionally it should be noted the patient's previous retention suture was placed horizontally at that exact location and this could be a source of abscess as well. The patient denies fevers. No increased shortness of breath. Patient has history of significant pulmonary disease and has been on chronic steroids. - Review of Systems Comment: The patient denies any acute changes in vision or hearing, no dysphagia or odynophagia, no chest pain or shortness of breath, no dysuria or hematuria, no headache, no runny nose, no rectal bleeding or melena, no unexplained weight loss Past Medical History Past Medical History: COPD, Hyperlipidemia, Osteoarthritis (OA), Pneumonia, Rheumatoid Arthritis (RA), Sleep Apnea/CPAP/BIPAP Additional Past Medical History / Comment(s): Pneumonia with sepsis twice-10/2017 and in 2016. 3.5L home o2, PATTY with no device (cannot tolerate), recently injured low back-saw Dr. Dye. Rheumatoid arthritis in bilateral hips,knees hands and back. History of Any Multi-Drug Resistant Organisms: None Reported Past Surgical History: Orthopedic Surgery Additional Past Surgical History / Comment(s): bilateral cataract removals with lens implants, left knee arthroscopy, colonoscopy, GI perforated ulcer. Past Anesthesia/Blood Transfusion Reactions: No Reported Reaction Past Psychological History: Anxiety, Depression Smoking Status: Former smoker Past Alcohol Use History: Daily Past Drug Use History: None Reported - Past Family History Father Family Medical History: Cancer Additional Family Medical History / Comment(s): Father of leukemia. Mother Family Medical History: Cancer, CVA/TIA, Dementia, Diabetes Mellitus Additional Family Medical History / Comment(s): Mother is 88yrs old with history of dementia and colon cancer. Sister(s) Additional Family Medical History / Comment(s): Patient has 1 full sister with history of lung cancer. Patient has one half-sister with adrenal problems. Patient does not have any brothers. Patient 3 sons with no major medical problems. Medications and Allergies Home Medications Medication Instructions Recorded Confirmed Type predniSONE 10 mg PO DAILY #30 tab 02/05/18 03/14/19 Rx Furosemide [Lasix] 40 mg PO DAILY #30 tab 02/06/19 03/14/19 Rx Ipratropium-Albuterol Nebulize 3 ml INHALATION RT-Q6H #120 02/06/19 03/14/19 Rx [Duoneb 0.5 mg-3 mg/3 ml Soln] ampul.neb Pantoprazole [Protonix] 40 mg PO AC-BRKFST #30 tablet. 02/06/19 03/14/19 Rx Budesonide/Formoterol Fumarate 1 puff INHALATION RT-BID 02/09/19 03/14/19 History [Symbicort 160-4.5 Mcg Inhaler] Potassium Chloride [Klor-Con 20] 20 meq PO BID 02/09/19 03/14/19 History Sertraline [Zoloft] 100 mg PO DAILY 02/09/19 03/14/19 History HYDROcodone/APAP 10-325MG [[place] 1 tab PO Q8H PRN #9 tab 02/12/19 03/14/19 Rx 10-325] Melatonin 10 mg PO HS tablet 02/12/19 03/14/19 Rx Acetaminophen Tab [Tylenol Tab] 650 mg PO Q4H PRN 03/14/19 03/14/19 History Mirtazapine [Remeron] 7.5 mg PO HS@1800 03/14/19 03/14/19 History Allergies Allergy/AdvReac Type Severity Reaction Status Date / Time amoxicillin AdvReac Nausea & Verified 07/13/19 08:59 Vomiting Surgical - Exam Vital Signs Temp Pulse Resp BP Pulse Ox 97.5 F L 121 H 20 103/64 90 L 03/14/19 07:10 03/14/19 07:10 03/14/19 07:10 03/14/19 07:10 03/14/19 07:10 Physical exam: General: Well-developed, well-nourished HEENT: Normocephalic, sclerae nonicteric Abdomen: Upper midline incision with fullness, fluctuance, tenderness, and mild erythema, no diffuse tenderness noted, no peritoneal signs, nondistended Extremities: No edema Neuro: Alert and oriented Results - Labs 03/14/19 07:44 03/14/19 07:44 Abnormal Lab Results - Last 24 Hours (Table) 03/14/19 03/14/19 Range/Units 07:44 07:44 WBC 25.0 H (3.8-10.6) k/uL RBC 4.23 L (4.30-5.90) m/uL Hgb 12.6 L (13.0-17.5) gm/dL RDW 16.1 H (11.5-15.5) % Plt Count 595 H (150-450) k/uL Neutrophils # 22.2 H (1.3-7.7) k/uL Sodium 134 L (137-145) mmol/L Chloride 97 L (98-107) mmol/L BUN 21 H (9-20) mg/dL Glucose 117 H (74-99) mg/dL Albumin 3.2 L (3.5-5.0) g/dL Diabetes panel 03/14/19 Range/Units 07:44 Sodium 134 L (137-145) mmol/L Potassium 4.5 (3.5-5.1) mmol/L Chloride 97 L (98-107) mmol/L Carbon Dioxide 26 (22-30) mmol/L BUN 21 H (9-20) mg/dL Creatinine 0.67 (0.66-1.25) mg/dL Glucose 117 H (74-99) mg/dL Calcium 9.2 (8.4-10.2) mg/dL AST 21 (17-59) U/L ALT 42 (21-72) U/L Alkaline Phosphatase 100 (38-126) U/L Total Protein 6.4 (6.3-8.2) g/dL Albumin 3.2 L (3.5-5.0) g/dL Calcium panel 03/14/19 Range/Units 07:44 Calcium 9.2 (8.4-10.2) mg/dL Albumin 3.2 L (3.5-5.0) g/dL Pituitary panel 03/14/19 Range/Units 07:44 Sodium 134 L (137-145) mmol/L Potassium 4.5 (3.5-5.1) mmol/L Chloride 97 L (98-107) mmol/L Carbon Dioxide 26 (22-30) mmol/L BUN 21 H (9-20) mg/dL Creatinine 0.67 (0.66-1.25) mg/dL Glucose 117 H (74-99) mg/dL Calcium 9.2 (8.4-10.2) mg/dL Adrenal panel 03/14/19 Range/Units 07:44 Sodium 134 L (137-145) mmol/L Potassium 4.5 (3.5-5.1) mmol/L Chloride 97 L (98-107) mmol/L Carbon Dioxide 26 (22-30) mmol/L BUN 21 H (9-20) mg/dL Creatinine 0.67 (0.66-1.25) mg/dL Glucose 117 H (74-99) mg/dL Calcium 9.2 (8.4-10.2) mg/dL Total Bilirubin 0.6 (0.2-1.3) mg/dL AST 21 (17-59) U/L ALT 42 (21-72) U/L Alkaline Phosphatase 100 (38-126) U/L Total Protein 6.4 (6.3-8.2) g/dL Albumin 3.2 L (3.5-5.0) g/dL Assessment and Plan (1) Abdominal abscess Narrative/Plan: 68-year-old male with abdominal wall and abdominal abscess. We'll proceed with incision and drainage under sedation. We'll obtain cultures and consult infectious disease as well as the his primary physician's service. Begin IV antibiotics. Clinical scenario discussed in detail with the patient and his . No immediate plans for laparotomy at this time. Risks of the procedure were noted to include but not limited to bleeding, infection, wound formation, fistula formation, possible need for additional procedures, respiratory and ca rdiac complications. He understands and wishes to proceed. Current Visit: No Status: Acute Code(s): [id number] - SNOMED Code(s): 85249794
[2019-03-14] MEDS: SODIUM CHLORIDE 0.9% 1,000 ML IV SCH (10:29)
[2019-03-14 10:39] LABS: Appearance,Urine Clear (Clear); Bilirubin,Urine Negative (Negative); Blood,Urine Negative (Negative); Color,Urine Light Yellow; Glucose,Urine (UA) Negative (Negative); Ketones,Urine Negative (Negative); Leukocyte Esterase,Urine Negative (Negative); Nitrite,Urine Negative (Negative); Protein,Urine Negative (Negative); Specific Gravity,Urine 1.018 (1.001-1.035); Urobilinogen,Urine <2.0 mg/dL (<2.0)
[2019-03-14] MEDS ORDERED: MIDAZOLAM 2 MG/2 ML VIAL ONE (15:35)
[2019-03-14] MEDS ORDERED: KETAMINE 10 MG/ML 20 ML VIAL ONE (15:35)
[2019-03-14] MEDS ORDERED: PROPOFOL 10 MG/ML 20 ML VIAL IV ONE (15:35)
[2019-03-14] MEDS ORDERED: IV FLUID CONTINUATION 250 ML IV ONE (15:40)
[2019-03-14] MEDS ORDERED: PIPERACILLIN-TAZOBACTAM 3.375 GM in SODIUM CHLORIDE 0.9% 100 ML IVPB SCH (16:00)
[2019-03-14] MEDS ORDERED: BUPIVACAINE (PF) 0.25% 30 ML VIAL SQ ONE ×2 (16:01)
[2019-03-14] MEDS ORDERED: LACTATED RINGERS 1,000 ML IV ONE (16:06)
[2019-03-14] MEDS ORDERED: ONDANSETRON 4 MG/2 ML VIAL IVP ONE (16:30)
[2019-03-14] MEDS: MORPHINE SULFATE 4 MG/ML SYRINGE IV PRN ×2 (17:21→21:40)
[2019-03-14] MEDS ORDERED: HYDROcodone/APAP 5-325MG 1 EACH TAB PO PRN (17:24)
[2019-03-14] MEDS ORDERED: HYDROmorphone 1 MG/ML 1 ML SYRINGE IM PRN (17:24)
--- NOTE | 2019-03-14 17:32 | P.OP ---
Date of Procedure: 03/14/19 Procedure(s) Performed: PREOPERATIVE DIAGNOSIS: Abdominal abscess POSTOPERATIVE DIAGNOSIS: Same PROCEDURE: Incision and drainage abdominal wall abscess and intraperitoneal abscess SURGEON: Amita EBL: 10 mL ANESTHESIA: Sedation and local COMPLICATIONS: None OPERATIVE PROCEDURE: Patient placed in the operating table in the supine position. The patient was placed under sedation. The abdomen was prepped and draped in the usual sterile fashion. The skin was localized with quarter percent Marcaine solution. The area where the fluctuant area was present was incised through the previous incision site using the scalpel. Purulent fluid was quickly identified cultured and evacuated. The incision was lengthened somewhat sharply for a distance of 5 cm total with blunt dissection on the skin edges the previous incision split spontaneously superiorly and inferiorly by another 1-2 cm. The subcutaneous tissues were evacuated of any purulent fluid. The fascia was already open at that location. The PDS sutures were still intact but not helping with approximation. The PDS sutures in that area were excised. Blunt dissection beneath the level of the fascia took place where there was purulent fluid identified. This allowed us to identify and intra-abdominal abscess cavity extending another 4-5 cm deep to the superficial abscess and fascial layer. It appeared that the majority of the intra-abdominal abscess was evacuated at that time using simply blunt dissection. I was not able to identify intra-abdominal structures given the inflammatory reaction in that area. I was not able to visualize a definite perforation site or fistula. At one point when we were suctioning the purulent fluid I did see a small 7-8 mm piece of tissue that may have represented bowel contents. The abscess site was thoroughly irrigated with saline. Beneath the level of the fascia the abscess was packed with Aquacel silver rope. Superficial to the level of the fascia 2 inch Santana roll was utilized moistened with saline. Sterile dressings and abdominal binder was applied. DISPOSITION: Stable to recovery room
[2019-03-14] MEDS ORDERED: ANIDULAFUNGIN 200 MG in SODIUM CHLORIDE 0.9% 200 ML IVPB ONE (18:00)
[2019-03-14] MEDS: MEROPENEM 2 GM in SODIUM CHLORIDE 0.9% 100 ML IVPB SCH (18:05)
--- NOTE | 2019-03-14 23:58 | P.CONS ---
History of Present Illness - Reason for Consult Consult date: 03/14/19 - Chief Complaint abdominal pain - History of Present Illness 68-year-old male who had significant abdominal pain in December. In on 01/24/2019 was taken to the operating room and exploratory laparotomy revealed evidence of the perforated gastric ulcer. He underwent the surgical repair and was doing relatively well. Given the difficulties at the time a retention suture was utilized. The patient did have office follow-up some was having some improvement. The patient then relates that he recently started developed some bulging to the abdominal wall at the incision site and because of this he sought care. Imaging studies were performed proving evidence of a significant fluid collection and constantly he has been taken to the operating room and the site has been explored. The surgeon relates that with very minimal manipulation the site recently opened and a large amount of purulent material extruded. He patient is now postoperative in the site is packed. He is with complaints of pain postoperative but is denying nausea or emesis. He or he has an appetite. He did have a fever but denies chills or rigors at this time. Does have some weakness related to the some long-term recovery that he has been suffering from. Review of Systems HEENT:Denies headache or acute visual change. Denies sinus or mouth discomforts. Denies neck stiffness or pain. Denies significant oral cavity pain. Denies difficulty on swallowing. Lungs: Denies significant shortness of breath, cough, sputum production, or hemoptysis. Cardiovascular: Denies significant shortness of breath, chest pain, chest wall pain, orthopnea, dyspnea on exertion, syncope Gastrointestinal he has complained about ongoing abdominal pain, has had the evidence of the significant bulging abdominal site, is appetites been somewhat poor, denies significant nausea or emesis. He's had no hematemesis melena or hematochezia. Musculoskeletal: denies significant myalgias or arthralgias. No new joint swelling. Denies new back pain. Skin: Denies new rash or lesions. No new ulcers or wounds are related.. Neuro: Denies headache or visual change. Denies any new onset weakness or difficulty with ambulation. Denies falls or seizures. Psychiatric:Denies anxiety or depression. Endocrine: Denies significant fatigue, denies significant weight loss or weight gain. Past Medical History Past Medical History: COPD, Hyperlipidemia, Osteoarthritis (OA), Pneumonia, Rheumatoid Arthritis (RA), Sleep Apnea/CPAP/BIPAP Additional Past Medical History / Comment(s): Pneumonia with sepsis twice-10/2017 and in 2016. 3.5L home o2, PATTY with no device (cannot tolerate), recently injured low back-saw Dr. Dye. Rheumatoid arthritis in bilateral hips,knees hands and back. History of Any Multi-Drug Resistant Organisms: None Reported Past Surgical History: Orthopedic Surgery Additional Past Surgical History / Comment(s): bilateral cataract removals with lens implants, left knee arthroscopy, colonoscopy, GI perforated ulcer. Past Anesthesia/Blood Transfusion Reactions: No Reported Reaction Past Psychological History: Anxiety, Depression Additional Psychological History / Comment(s): Pt resides with his spouse of 38 yrs. He has home oxygen which he wears prn at 3.5L/NC. He has a nebulizer. Smoking Status: Former smoker Past Alcohol Use History: Daily Additional Past Alcohol Use History / Comment(s): Patient smoked 2 packs per day for 40+ years. He quit 6 years ago. He denies any illicit drug use or marijuana use. He drinks 3-4 beers per day but none since previous admission and December. 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 Mother Family Medical History: Cancer, CVA/TIA, Dementia, Diabetes Mellitus Additional Family Medical History / Comment(s): Mother is 88yrs old with history of dementia and colon cancer. Sister(s) Additional Family Medical History / Comment(s): Patient has 1 full sister with history of lung cancer. Patient has one half-sister with adrenal problems. Patient does not have any brothers. Patient 3 sons with no major medical problems. Medications and Allergies Home Medications and Allergies Comment(s): Current Medications Acetaminophen (Tylenol Tab) 650 mg PO Q6HR PRN PRN Reason: Mild Pain or Fever > 100.5 Hydrocodone Bitart/Acetaminophen ([place] 5-325) 1 each PO Q4HR PRN PRN Reason: Pain Hydromorphone HCl (Dilaudid) 0.5 mg IM Q3HR PRN PRN Reason: Pain Sodium Chloride (Saline 0.9%) 1,000 mls @ 50 mls/hr IV .Q20H [facility] Last Admin: 03/14/19 10:29 Dose: 50 mls/hr Documented by: Meropenem 2 gm/ Sodium (Chloride) 100 mls @ 200 mls/hr IVPB Q8HR [facility]; Protocol Last Admin: 03/14/19 18:05 Dose: 200 mls/hr Documented by: Anidulafungin 100 mg/ Sodium (Chloride) 100 mls @ 84 mls/hr IVPB Q24H [facility] Morphine Sulfate (Morphine Sulfate (Inj)) 4 mg IV Q4HR PRN PRN Reason: Severe Pain Last Admin: 03/14/19 21:40 Dose: 4 mg Documented by: Naloxone HCl (Narcan) 0.2 mg IV Q2M PRN PRN Reason: Opioid Reversal Ondansetron HCl (Zofran) 4 mg IVP Q8HR PRN PRN Reason: Nausea And Vomiting Home Medications Medication Instructions Recorded Confirmed Type predniSONE 10 mg PO DAILY #30 tab 02/05/18 03/14/19 Rx Furosemide [Lasix] 40 mg PO DAILY #30 tab 02/06/19 03/14/19 Rx Ipratropium-Albuterol Nebulize 3 ml INHALATION RT-Q6H #120 02/06/19 03/14/19 Rx [Duoneb 0.5 mg-3 mg/3 ml Soln] ampul.neb Pantoprazole [Protonix] 40 mg PO AC-BRKFST #30 tablet. 02/06/19 03/14/19 Rx Budesonide/Formoterol Fumarate 1 puff INHALATION RT-BID 02/09/19 03/14/19 History [Symbicort 160-4.5 Mcg Inhaler] Potassium Chloride [Klor-Con 20] 20 meq PO BID 02/09/19 03/14/19 History Sertraline [Zoloft] 100 mg PO DAILY 02/09/19 03/14/19 History HYDROcodone/APAP 10-325MG [[place] 1 tab PO Q8H PRN #9 tab 02/12/19 03/14/19 Rx 10-325] Melatonin 10 mg PO HS tablet 02/12/19 03/14/19 Rx Acetaminophen Tab [Tylenol Tab] 650 mg PO Q4H PRN 03/14/19 03/14/19 History Mirtazapine [Remeron] 7.5 mg PO HS@1800 03/14/19 03/14/19 History Allergies Allergy/AdvReac Type Severity Reaction Status Date / Time amoxicillin AdvReac Nausea & Verified 03/14/19 08:59 Vomiting Physical Exam Vitals: Vital Signs Temp Pulse Pulse Resp BP BP BP 03/14/19 18:15 97 103/62 03/14/19 18:01 96 110/68 03/14/19 17:45 94 109/65 03/14/19 17:32 101 H 101/40 03/14/19 17:15 98.3 F 91 15 107/69 03/14/19 16:45 91 16 109/65 03/14/19 16:30 96 16 108/65 03/14/19 16:20 99.0 F 101 H 20 109/69 03/14/19 13:18 97.8 F 105 H 98/60 03/14/19 11:58 98.4 F 89 18 92/58 03/14/19 11:19 96 18 92/65 03/14/19 09:56 99 18 91/63 03/14/19 09:04 102 H 20 97/70 03/14/19 07:46 108 H 22 95/72 03/14/19 07:10 97.5 F L 121 H 20 103/64 Pulse Ox 03/14/19 18:15 03/14/19 18:01 03/14/19 17:45 03/14/19 17:32 03/14/19 17:15 94 L 03/14/19 16:45 95 03/14/19 16:30 92 L 03/14/19 16:20 99 03/14/19 13:18 92 L 03/14/19 11:58 99 03/14/19 11:19 97 03/14/19 09:56 97 03/14/19 09:04 97 03/14/19 07:46 96 03/14/19 07:10 90 L Intake and Output 03/14/19 03/14/19 03/15/19 14:59 22:59 06:59 Intake Total 1370 Output Total 5 Balance 1365 Intake: IV 1050 Intake, IV Titration 200 Amount Meropenem 2 gm In Sodium 100 Chloride 0.9% 100 ml @ 200 mls/hr IVPB Q8HR [facility] Rx#:[id number] Sodium Chloride 0.9% 1, 100 000 ml @ 50 mls/hr IV . Q20H [facility] Rx#:[id number] Oral 120 Output: Estimated Blood Loss 5 Other: Weight 72.575 kg HEENT: Anicteric conjunctiva are pink and moist nasal mucosa grossly intact without significant lesions, there is no thrush. Neck: The neck is supple without significant lymphadenopathy or thyromegaly. Lungs: Good bilateral air entry without significant crackles or wheezing. There is no significant bronchial sounds. There is no egophony or dullness. Heart: Regular rate and rhythm with an audible S1-S2, no S3 no S4. There is no significant murmur click or rub, PMI was nondisplaced. Abdomen: Abdomen is postoperative, it is tender, dressing is intact, few bowel sounds are heard. Extremities: The upper extremities have excellent pulses they are symmetric, no significant petechiae or telangiectasia. No splinter hemorrhages were noted. The lower extremities are free from significant edema. The peripheral pulses were 2+ and symmetric. Neuro: Awake alert oriented to person place and time. There are no acute new gross focal sensory motor deficits. Results CBC & Chem 7: 03/14/19 07:44 03/14/19 07:44 Labs: Abnormal Lab Results - Last 24 Hours (Table) 03/14/19 03/14/19 Range/Units 07:44 07:44 WBC 25.0 H (3.8-10.6) k/uL RBC 4.23 L (4.30-5.90) m/uL Hgb 12.6 L (13.0-17.5) gm/dL RDW 16.1 H (11.5-15.5) % Plt Count 595 H (150-450) k/uL Neutrophils # 22.2 H (1.3-7.7) k/uL Sodium 134 L (137-145) mmol/L Chloride 97 L (98-107) mmol/L BUN 21 H (9-20) mg/dL Glucose 117 H (74-99) mg/dL Albumin 3.2 L (3.5-5.0) g/dL Microbiology - Last 24 Hours (Table) 03/14/19 16:12 Wound Culture - Preliminary Abdomen 03/14/19 16:12 Anaerobic Culture - Preliminary Abdomen Laboratory Results WBC 25.0 k/uL (3.8-10.6) H 03/14/19 07:44 RBC 4.23 m/uL (4.30-5.90) L 03/14/19 07:44 Hgb 12.6 gm/dL (13.0-17.5) L 03/14/19 07:44 Hct 39.4 % (39.0-53.0) 03/14/19 07:44 MCV 93.1 fL (80.0-100.0) D 03/14/19 07:44 MCH 29.7 pg (25.0-35.0) 03/14/19 07:44 MCHC 31.9 g/dL (31.0-37.0) 03/14/19 07:44 RDW 16.1 % (11.5-15.5) H 03/14/19 07:44 Plt Count 595 k/uL (150-450) H 03/14/19 07:44 Neutrophils % 89 % 03/14/19 07:44 Lymphocytes % 6 % 03/14/19 07:44 Monocytes % 4 % 03/14/19 07:44 Eosinophils % 0 % 03/14/19 07:44 Basophils % 0 % 03/14/19 07:44 Neutrophils # 22.2 k/uL (1.3-7.7) H 03/14/19 07:44 Lymphocytes # 1.4 k/uL (1.0-4.8) 03/14/19 07:44 Monocytes # 0.9 k/uL (0-1.0) 03/14/19 07:44 Eosinophils # 0.1 k/uL (0-0.7) 03/14/19 07:44 Basophils # 0.1 k/uL (0-0.2) 03/14/19 07:44 Anisocytosis Slight 03/14/19 07:44 Sodium 134 mmol/L (137-145) L 03/14/19 07:44 Potassium 4.5 mmol/L (3.5-5.1) 03/14/19 07:44 Chloride 97 mmol/L (98-107) L 03/14/19 07:44 Carbon Dioxide 26 mmol/L (22-30) 03/14/19 07:44 Anion Gap 11 mmol/L 03/14/19 07:44 BUN 21 mg/dL (9-20) H 03/14/19 07:44 Creatinine 0.67 mg/dL (0.66-1.25) 03/14/19 07:44 Est GFR (CKD-EPI)AfAm >90 (>60 ml/min/1.73 sqM) 03/14/19 07:44 Est GFR (CKD-EPI)NonAf >90 (>60 ml/min/1.73 sqM) 03/14/19 07:44 Glucose 117 mg/dL (74-99) H 03/14/19 07:44 Plasma Lactic Acid Steven 1.1 mmol/L (0.7-2.0) 03/14/19 07:44 Calcium 9.2 mg/dL (8.4-10.2) 03/14/19 07:44 Total Bilirubin 0.6 mg/dL (0.2-1.3) 03/14/19 07:44 AST 21 U/L (17-59) 03/14/19 07:44 ALT 42 U/L (21-72) 03/14/19 07:44 Alkaline Phosphatase 100 U/L (38-126) 03/14/19 07:44 Total Protein 6.4 g/dL (6.3-8.2) 03/14/19 07:44 Albumin 3.2 g/dL (3.5-5.0) L 03/14/19 07:44 Amylase 38 U/L (30-110) 03/14/19 07:44 Lipase 92 U/L (23-300) 03/14/19 07:44 Urine Color Light Yellow 03/14/19 10:19 Urine Appearance Clear (Clear) 03/14/19 10:19 Urine pH 7.0 (5.0-8.0) 03/14/19 10:19 Ur Specific [place] 1.018 (1.001-1.035) 03/14/19 10:19 Urine Protein Negative (Negative) 03/14/19 10:19 Urine Glucose (UA) Negative (Negative) 03/14/19 10:19 Urine Ketones Negative (Negative) 03/14/19 10:19 Urine Blood Negative (Negative) 03/14/19 10:19 Urine Nitrite Negative (Negative) 03/14/19 10:19 Urine Bilirubin Negative (Negative) 03/14/19 10:19 Urine Urobilinogen <2.0 mg/dL (<2.0) 03/14/19 10:19 Ur Leukocyte Esterase Negative (Negative) 03/14/19 10:19 Microbiology 03/14/19 16:12 Abdomen Wound Culture - Preliminary 03/14/19 16:12 Abdomen Anaerobic Culture - Preliminary Assessment and Plan (1) Abdominal abscess Narrative/Plan: Pleasant 68-year-old male who has a many week history of difficulties with his abdomen. On 01/24/2019 he was taken to the operating room and exporter laparotomy reveal evidence of the perforated gastric ulcer he underwent repair. Patient was showing some improvement but now presents to Hospital with significant increasing amounts of abdominal pain associated with some lack of appetite and fever. He noticed significant bulging to the midline incision and constantly was seen by the surgeon. He was taken to the operating room where there is evidence of abscess at the site. The area has been packed and antibiotic therapy was requested. Zosyn has been initiated and will add Eraxis for now until we have further culture. Concern to intra-abdominal pathogens including gram-positive gram-negative anaerobes and fungus. The patient may require outpatient intravenous antibiotic therapy depending on the findings. His pain control is being adjusted this point in time. Nutritional supplementation with Jani or other protein supplement will be helpful and potential multivitamin also to help his healing as he improves. Current Visit: Yes Status: Acute Code(s): [id number] - SNOMED Code(s): 96055287 (2) Duodenal ulcer, perforated Current Visit: No Status: Acute Code(s): K26.5 - CHRONIC OR UNSPECIFIED DUODENAL ULCER WITH PERFORATION SNOMED Code(s): 12990688 (3) Abdominal pain Current Visit: Yes Status: Acute Code(s): R10.9 - UNSPECIFIED ABDOMINAL PAIN SNOMED Code(s): 43446018
[2019-03-15] MEDS: MEROPENEM 2 GM in SODIUM CHLORIDE 0.9% 100 ML IVPB SCH ×4 (00:49→23:48)
[2019-03-15] MEDS: MORPHINE SULFATE 4 MG/ML SYRINGE IV PRN ×5 (01:51→21:19)
[2019-03-15] MEDS: SODIUM CHLORIDE 0.9% 1,000 ML IV SCH (06:17)
[2019-03-15 07:59] LABS: Anisocytosis Slight; Basophils # (A) 0.1 k/uL (0-0.2); Basophils % (A) 1 %; Eosinophils # (A) 0.4 k/uL (0-0.7); Eosinophils % (A) 2 %; HCT 33.5 % (39.0-53.0); HGB 10.9 gm/dL (13.0-17.5); Hypochromasia Slight; Lymphocytes # (A) 2.1 k/uL (1.0-4.8); Lymphocytes % (A) 11 %; MCHC 32.6 g/dL (31.0-37.0); MCV 92.1 fL (80.0-100.0); Mean Platelet Volume 7.1; Monocytes # (A) 0.6 k/uL (0-1.0); Monocytes % (A) 3 %; Neutrophils # (A) 16.2 k/uL (1.3-7.7); Neutrophils % (A) 82 %; Platelet Count 583 k/uL (150-450); RBC 3.64 m/uL (4.30-5.90); RDW 16.1 % (11.5-15.5); WBC 19.8 k/uL (3.8-10.6)
[2019-03-15] MEDS ORDERED: POTASSIUM CHLORIDE ER 20 MEQ TAB.ER PO SCH (10:08)
[2019-03-15] MEDS ORDERED: FUROSEMIDE 40 MG TAB PO SCH (10:08)
[2019-03-15] MEDS: predniSONE 10 MG TAB PO SCH (10:53)
[2019-03-15] MEDS: SERTRALINE 100 MG TAB PO SCH (10:53)
[2019-03-15] MEDS ORDERED: LIDOCAINE 1% INJ 10MG/ML (20 ML MDV) SQ ONE (11:02)
--- NOTE | 2019-03-15 11:49 | P.CONS ---
History of Present Illness - Reason for Consult Consult date: 03/15/19 medical management for RA, HTN Requesting physician: Chucky Levi - Chief Complaint Abdominal pain - History of Present Illness This is 68 years old male with recent gastric ulcer rupture status post abdominal surgery who presented to the hospital with abdominal pain and found to have abdominal abscess that was drained by general surgery yesterday and medical consult was obtained for follow-up on his complicated past medical history. Patient currently is denying chest pain, shortness breath, nausea, vomiting or dizziness stated that his abdominal pain improved at least by 75% since yesterday. Patient denied tobacco alcohol or drug abuse stated that he's compliment with his medication and doctors follow-up and his at the bedside who is the primary care provider for the patient as patient has rheumatoid arthritis and suffered from debility at home Review of Systems All 14 systems reviewed and negative except as above Past Medical History Past Medical History: COPD, Hyperlipidemia, Osteoarthritis (OA), Pneumonia, Rheumatoid Arthritis (RA), Sleep Apnea/CPAP/BIPAP Additional Past Medical History / Comment(s): Pneumonia with sepsis twice-10/2017 and in 2015. 3.5L home o2, PATTY with no device (cannot tolerate), recently injured low back-saw Dr. Dye. Rheumatoid arthritis in bilateral hips,knees hands and back. History of Any Multi-Drug Resistant Organisms: None Reported Past Surgical History: Orthopedic Surgery Additional Past Surgical History / Comment(s): bilateral cataract removals with lens implants, left knee arthroscopy, colonoscopy, GI perforated ulcer. Past Anesthesia/Blood Transfusion Reactions: No Reported Reaction Past Psychological History: Anxiety, Depression Additional Psychological History / Comment(s): Pt resides with his spouse of 38 yrs. He has home oxygen which he wears prn at 3.5L/NC. He has a nebulizer. Smoking Status: Former smoker Past Alcohol Use History: Daily Additional Past Alcohol Use History / Comment(s): Patient smoked 2 packs per day for 40+ years. He quit 6 years ago. He denies any illicit drug use or marijuana use. He drinks 3-4 beers per day but none since previous admission and December. 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 Mother Family Medical History: Cancer, CVA/TIA, Dementia, Diabetes Mellitus Additional Family Medical History / Comment(s): Mother is 88yrs old with history of dementia and colon cancer. Sister(s) Additional Family Medical History / Comment(s): Patient has 1 full sister with history of lung cancer. Patient has one half-sister with adrenal problems. Patient does not have any brothers. Patient 3 sons with no major medical problems. Medications and Allergies Home Medications Medication Instructions Recorded Confirmed Type predniSONE 10 mg PO DAILY #30 tab 02/05/18 03/14/19 Rx Furosemide [Lasix] 40 mg PO DAILY #30 tab 02/06/19 03/14/19 Rx Ipratropium-Albuterol Nebulize 3 ml INHALATION RT-Q6H #120 02/06/19 03/14/19 Rx [Duoneb 0.5 mg-3 mg/3 ml Soln] ampul.neb Pantoprazole [Protonix] 40 mg PO AC-BRKFST #30 tablet. 02/06/19 03/14/19 Rx Budesonide/Formoterol Fumarate 1 puff INHALATION RT-BID 02/09/19 03/14/19 History [Symbicort 160-4.5 Mcg Inhaler] Potassium Chloride [Klor-Con 20] 20 meq PO BID 02/09/19 03/14/19 History Sertraline [Zoloft] 100 mg PO DAILY 02/09/19 03/14/19 History HYDROcodone/APAP 10-325MG [[place] 1 tab PO Q8H PRN #9 tab 02/12/19 03/14/19 Rx 10-325] Melatonin 10 mg PO HS tablet 02/12/19 03/14/19 Rx Acetaminophen Tab [Tylenol Tab] 650 mg PO Q4H PRN 03/14/19 03/14/19 History Mirtazapine [Remeron] 7.5 mg PO HS@1800 03/14/19 03/14/19 History Allergies Allergy/AdvReac Type Severity Reaction Status Date / Time amoxicillin AdvReac Nausea & Verified 03/14/19 08:59 Vomiting Physical Exam Vitals: Vital Signs Temp Pulse Pulse Resp BP BP BP 03/15/19 07:54 98.2 F 96 110/68 03/15/19 04:00 101 H 20 03/15/19 00:25 98.1 F 101 H 20 101/64 03/15/19 00:00 98 18 03/14/19 20:00 98.4 F 97 15 102/65 03/14/19 18:15 97 103/62 03/14/19 18:01 96 110/68 03/14/19 17:45 94 109/65 03/14/19 17:32 101 H 101/40 03/14/19 17:15 98.3 F 91 15 107/69 03/14/19 16:45 91 16 109/65 03/14/19 16:30 96 16 108/65 03/14/19 16:20 99.0 F 101 H 20 109/69 03/14/19 13:18 97.8 F 105 H 98/60 03/14/19 11:58 98.4 F 89 18 92/58 Pulse Ox 03/15/19 07:54 94 L 03/15/19 04:00 03/15/19 00:25 91 L 03/15/19 00:00 03/14/19 20:00 93 L 03/14/19 18:15 03/14/19 18:01 03/14/19 17:45 03/14/19 17:32 03/14/19 17:15 94 L 03/14/19 16:45 95 03/14/19 16:30 92 L 03/14/19 16:20 99 03/14/19 13:18 92 L 03/14/19 11:58 99 Intake and Output 03/14/19 03/15/19 03/15/19 22:59 06:59 14:59 Intake Total 1610 810 Output Total 330 150 Balance 1280 660 Intake: IV 1050 Intake, IV Titration 200 600 Amount Meropenem 2 gm In Sodium 100 Chloride 0.9% 100 ml @ 200 mls/hr IVPB Q8HR [facility] Rx#:[id number] Sodium Chloride 0.9% 1, 100 600 000 ml @ 50 mls/hr IV . Q20H [facility] Rx#:[id number] Oral 360 210 Output: Urine 325 150 Estimated Blood Loss 5 Other: Voiding Method Urinal Urinal # Voids 1 Gen.: in stated age, no acute distress Heart: Normal S1-S2 Lungs: Clear to auscultation bilaterally Abdomen: Soft, positive for abdominal wall dressing with bloody drainage, positive bowel sounds in all 4 quadrant no guarding or rebound Skin: No new rash Psych: Alert and oriented 3 Neuro: No focal deficit Joints Posta for deformities in upper and lower extremities Results CBC & Chem 7: 03/15/19 06:27 03/14/19 07:44 Labs: Abnormal Lab Results - Last 24 Hours (Table) 03/15/19 Range/Units 06:27 WBC 19.8 H (3.8-10.6) k/uL RBC 3.64 L (4.30-5.90) m/uL Hgb 10.9 L (13.0-17.5) gm/dL Hct 33.5 L (39.0-53.0) % RDW 16.1 H (11.5-15.5) % Plt Count 583 H (150-450) k/uL Neutrophils # 16.2 H (1.3-7.7) k/uL Microbiology - Last 24 Hours (Table) 03/14/19 07:44 Blood Culture - Preliminary Blood No Growth after 24 hours 03/14/19 16:12 Gram Stain - Preliminary Abdomen Wound Culture - Preliminary 03/14/19 16:12 Anaerobic Culture - Preliminary Abdomen Assessment and Plan Assessment: 1. Status post incision and drainage of abdominal wall abscess and intraperitoneal abscess. 2. Recent exploratory laparotomy with repair of perforated duodenal ulcer and incarcerated umbilical hernia 01/22/2019. 3. Severe leukocytosis. 4. Abdominal pain. 5. Rheumatoid arthritis with immune suppressant status due to daily use of steroids. 6. COPD. 7. Chronic respiratory failure with hypoxia home oxygen dependent. 8. Debility and deconditioning 9. Hypertension. 10. Insomnia. 11. Electrolyte imbalance with hyponatremia. 12. Hyperlipidemia. 13. Generalized osteoarthritis. 14. Obstructive sleep apnea. Patient stated that his pain has improved significantly since surgery yesterday. Plan discussed with general surgery with aggressive wound care IV antibiotics and introduce diet as tolerated. We'll monitor the patient during this hospital stay and consider further imaging regarding the nature of the abscess formation to be determined by general surgery during this hospital stay based on clinical progress. I would like to resume his home medication including prednisone follow-up with infectious disease recommendation. Continue with current IV pain medication but I offered patient also to go back on his oral medication similar to what he takes at home. Continue aggressive bowel regimen. Patient will require DVT and GI prophylaxis during this hospital stay to be determined by general surgery. Prognosis remained guarded
[2019-03-15] MEDS: IPRATROPIUM-ALBUTEROL 3 ML NEB INHALATION SCH ×3 (12:08→23:43)
--- NOTE | 2019-03-15 12:44 | P.PN ---
Subjective Progress Note Date: 03/15/19 Principal diagnosis: Abdominal abscess Patient states he is feeling somewhat better today compared to preoperatively. He is hungry. White blood cell count 19.8 today. Hemoglobin stable. Cultures pending. No nausea or vomiting. Objective - Vital Signs Vital signs: Vital Signs Temp 98.2 F 03/15/19 07:54 Pulse 104 H 03/15/19 12:19 Resp 20 03/15/19 04:00 BP 110/68 03/15/19 07:54 Pulse Ox 94 L 03/15/19 07:54 Intake & Output 03/14/19 03/15/19 03/15/19 18:59 06:59 18:59 Intake Total 1150 1270 Output Total 5 475 Balance 1145 795 Weight 72.575 kg Intake: IV 1050 Intake, IV Titration 100 700 Amount Meropenem 2 gm In Sodium 100 Chloride 0.9% 100 ml @ 200 mls/hr IVPB Q8HR [facility] Rx#:[id number] Sodium Chloride 0.9% 1, 100 600 000 ml @ 50 mls/hr IV . Q20H [facility] Rx#:[id number] Oral 570 Output: Urine 475 Estimated Blood Loss 5 Other: Voiding Method Urinal # Voids 1 - Exam Abdomen: Soft, nondistended, mild upper abdominal tenderness, dressing changed with the help of the nursing staff, dimas-colored slightly sanguinous drainage on the dressings. The outer Santana gauze was removed. The Aquacel silver was then removed from the abdominal cavity. Some purulence at the base of the wound in the intra-abdominal cavity was noted. No enteric contents identified. Area was irrigated thoroughly with saline. No additional purulence was seen. 2 separate Aquacel silver portions of rope were readvanced into the wound. Small area of bleeding noted inferiorly. Despite pressure this did not stop. This was right at the skin edge. This was controlled using a [id number] 3-0 Vicryl stitch. Skin was prepped and lidocaine was used on the skin prior to placement of the stitch. Sterile outer dressings applied. - Labs CBC & Chem 7: 03/15/19 06:27 03/14/19 07:44 Labs: Abnormal Lab Results - Last 24 Hours (Table) 03/15/19 Range/Units 06:27 WBC 19.8 H (3.8-10.6) k/uL RBC 3.64 L (4.30-5.90) m/uL Hgb 10.9 L (13.0-17.5) gm/dL Hct 33.5 L (39.0-53.0) % RDW 16.1 H (11.5-15.5) % Plt Count 583 H (150-450) k/uL Neutrophils # 16.2 H (1.3-7.7) k/uL Microbiology - Last 24 Hours (Table) 03/14/19 07:44 Blood Culture - Preliminary Blood No Growth after 24 hours 03/14/19 16:12 Gram Stain - Preliminary Abdomen Wound Culture - Preliminary 03/14/19 16:12 Anaerobic Culture - Preliminary Abdomen Assessment and Plan (1) Abdominal abscess Narrative/Plan: Continue antibiotics per infectious disease. Begin clear liquids. May advance to full liquids if tolerates. Recheck labs tomorrow. Follow cultures. Continu e local wound care. Current Visit: Yes Status: Acute Code(s): URK1386 - SNOMED Code(s): 69581 008
[2019-03-15] MEDS ORDERED: MIRTAZAPINE 15 MG TAB PO SCH (18:00)
[2019-03-15] MEDS: ANIDULAFUNGIN 100 MG in SODIUM CHLORIDE 0.9% 100 ML IVPB SCH (19:10)
[2019-03-15] MEDS: SYMBICORT 160-4.5 MCG INHALER INHALATION SCH (19:57)
[2019-03-15] MEDS: MIRTAZAPINE 15 MG TAB PO SCH (21:18)
[2019-03-15] MEDS: MELATONIN 5 MG TABLET PO SCH (21:18)
--- NOTE | 2019-03-16 00:21 | P.PN ---
Subjective Progress Note Date: 03/15/19 68-year-old male who had significant abdominal pain in December. In on 01/24/2019 was taken to the operating room and exploratory laparotomy revealed evidence of the perforated gastric ulcer. He underwent the surgical repair and was doing relatively well. Given the difficulties at the time a retention suture was utilized. The patient did have office follow-up some was having some improvement. The patient then relates that he recently started developed some bulging to the abdominal wall at the incision site and because of this he sought care. Imaging studies were performed proving evidence of a significant fluid collection and constantly he has been taken to the operating room and the site has been explored. The surgeon relates that with very minimal manipulation the site recently opened and a large amount of purulent material extruded. He patient is now postoperative in the site is packed. He is with complaints of pain postoperative but is denying nausea or emesis. He or he has an appetite. He did have a fever but denies chills or rigors at this time. Does have some weakness related to the some long-term recovery that he has been suffering from. 03/15/2019 the patient is definitely feeling better today. He's had some morphine and has a narcotic affect. His son and [id number] are present and are pleased with how well he is doing. He is eating Jell-O, sitting air. In the chair and does not truly have many complaints. Objective - Vital Signs Vital signs: Vital Signs Temp 98.2 F 03/15/19 15:07 Pulse 102 H 03/15/19 23:54 Resp 20 03/15/19 04:00 BP 106/70 03/15/19 15:07 Pulse Ox 92 L 03/15/19 15:07 Intake & Output 03/15/19 03/15/19 03/16/19 06:59 18:59 06:59 Intake Total 1270 240 Output Total 475 Balance 795 240 Intake: Intake, IV Titration 700 Amount Meropenem 2 gm In Sodium 100 Chloride 0.9% 100 ml @ 200 mls/hr IVPB Q8HR [facility] Rx#:[id number] Sodium Chloride 0.9% 1, 600 000 ml @ 50 mls/hr IV . Q20H [facility] Rx#:[id number] Oral 570 240 Output: Urine 475 Other: Voiding Method Urinal # Voids 1 2 - Exam HEENT: Anicteric conjunctiva are pink and moist nasal mucosa grossly intact without significant lesions, there is no thrush. Neck: The neck is supple without significant lymphadenopathy or thyromegaly. Lungs: Good bilateral air entry without significant crackles or wheezing. There is no significant bronchial sounds. There is no egophony or dullness. Heart: Regular rate and rhythm with an audible S1-S2, no S3 no S4. There is no significant murmur click or rub, PMI was nondisplaced. Abdomen: Abdomen is postoperative, it is tender, dressing is intact, few bowel sounds are heard. Extremities: The upper extremities have excellent pulses they are symmetric, no significant petechiae or telangiectasia. No splinter hemorrhages were noted. The lower extremities are free from significant edema. The peripheral pulses were 2+ and symmetric. Neuro: Awake alert oriented to person place and time. There are no acute new gross focal sensory motor deficits. - Labs CBC & Chem 7: 03/15/19 06:27 03/14/19 07:44 Labs: Abnormal Lab Results - Last 24 Hours (Table) 03/15/19 Range/Units 06:27 WBC 19.8 H (3.8-10.6) k/uL RBC 3.64 L (4.30-5.90) m/uL Hgb 10.9 L (13.0-17.5) gm/dL Hct 33.5 L (39.0-53.0) % RDW 16.1 H (11.5-15.5) % Plt Count 583 H (150-450) k/uL Neutrophils # 16.2 H (1.3-7.7) k/uL Microbiology - Last 24 Hours (Table) 03/14/19 16:12 Gram Stain - Preliminary Abdomen Wound Culture - Preliminary Gram Neg Bacilli 03/14/19 07:44 Blood Culture - Preliminary Blood No Growth after 24 hours 03/14/19 16:12 Anaerobic Culture - Preliminary Abdomen Laboratory Results WBC 19.8 k/uL (3.8-10.6) H 03/15/19 06:27 RBC 3.64 m/uL (4.30-5.90) L 03/15/19 06:27 Hgb 10.9 gm/dL (13.0-17.5) L 03/15/19 06:27 Hct 33.5 % (39.0-53.0) L 03/15/19 06:27 MCV 92.1 fL (80.0-100.0) 03/15/19 06:27 MCH 30.0 pg (25.0-35.0) 03/15/19 06:27 MCHC 32.6 g/dL (31.0-37.0) 03/15/19 06:27 RDW 16.1 % (11.5-15.5) H 03/15/19 06:27 Plt Count 583 k/uL (150-450) H 03/15/19 06:27 Neutrophils % 82 % 03/15/19 06:27 Lymphocytes % 11 % 03/15/19 06:27 Monocytes % 3 % 03/15/19 06:27 Eosinophils % 2 % 03/15/19 06:27 Basophils % 1 % 03/15/19 06:27 Neutrophils # 16.2 k/uL (1.3-7.7) H 03/15/19 06:27 Lymphocytes # 2.1 k/uL (1.0-4.8) 03/15/19 06:27 Monocytes # 0.6 k/uL (0-1.0) 03/15/19 06:27 Eosinophils # 0.4 k/uL (0-0.7) 03/15/19 06:27 Basophils # 0.1 k/uL (0-0.2) 03/15/19 06:27 Hypochromasia Slight 03/15/19 06:27 Anisocytosis Slight 03/15/19 06:27 Sodium 134 mmol/L (137-145) L 03/14/19 07:44 Potassium 4.5 mmol/L (3.5-5.1) 03/14/19 07:44 Chloride 97 mmol/L (98-107) L 03/14/19 07:44 Carbon Dioxide 26 mmol/L (22-30) 03/14/19 07:44 Anion Gap 11 mmol/L 03/14/19 07:44 BUN 21 mg/dL (9-20) H 03/14/19 07:44 Creatinine 0.67 mg/dL (0.66-1.25) 03/14/19 07:44 Est GFR (CKD-EPI)AfAm >90 (>60 ml/min/1.73 sqM) 03/14/19 07:44 Est GFR (CKD-EPI)NonAf >90 (>60 ml/min/1.73 sqM) 03/14/19 07:44 Glucose 117 mg/dL (74-99) H 03/14/19 07:44 Plasma Lactic Acid Steven 1.1 mmol/L (0.7-2.0) 03/14/19 07:44 Calcium 9.2 mg/dL (8.4-10.2) 03/14/19 07:44 Total Bilirubin 0.6 mg/dL (0.2-1.3) 03/14/19 07:44 AST 21 U/L (17-59) 03/14/19 07:44 ALT 42 U/L (21-72) 03/14/19 07:44 Alkaline Phosphatase 100 U/L (38-126) 03/14/19 07:44 Total Protein 6.4 g/dL (6.3-8.2) 03/14/19 07:44 Albumin 3.2 g/dL (3.5-5.0) L 03/14/19 07:44 Amylase 38 U/L (30-110) 03/14/19 07:44 Lipase 92 U/L (23-300) 03/14/19 07:44 Urine Color Light Yellow 03/14/19 10:19 Urine Appearance Clear (Clear) 03/14/19 10:19 Urine pH 7.0 (5.0-8.0) 03/14/19 10:19 Ur Specific Mason 1.018 (1.001-1.035) 03/14/19 10:19 Urine Protein Negative (Negative) 03/14/19 10:19 Urine Glucose (UA) Negative (Negative) 03/14/19 10:19 Urine Ketones Negative (Negative) 03/14/19 10:19 Urine Blood Negative (Negative) 03/14/19 10:19 Urine Nitrite Negative (Negative) 03/14/19 10:19 Urine Bilirubin Negative (Negative) 03/14/19 10:19 Urine Urobilinogen <2.0 mg/dL (<2.0) 03/14/19 10:19 Ur Leukocyte Esterase Negative (Negative) 03/14/19 10:19 Microbiology 03/14/19 16:12 Abdomen Gram Stain - Preliminary 03/14/19 16:12 Abdomen Wound Culture - Preliminary Gram Neg Bacilli 03/14/19 07:44 Blood Blood Culture - Preliminary No Growth after 24 hours 03/14/19 16:12 Abdomen Anaerobic Culture - Preliminary Assessment and Plan (1) Abdominal abscess Narrative/Plan: Pleasant 68-year-old male who has a many week history of difficulties with his abdomen. On 01/24/2019 he was taken to the operating room and exporter laparotomy reveal evidence of the perforated gastric ulcer he underwent repair. Patient was showing some improvement but now presents to Hospital with significant increasing amounts of abdominal pain associated with some lack of appetite and fever. He noticed significant bulging to the midline incision and constantly was seen by the surgeon. He was taken to the operating room where there is evidence of abscess at the site. The area has been packed and antibi otic therapy was requested. Zosyn has been initiated and will add Eraxis for now until we have further culture. Concern to intra-abdominal pathogens including gram-positive gram-negative anaerobes and fungus. The patient may require outpatient intravenous antibiotic therapy depending on the findings. His pain control is being adjusted this point in time. Nutritional supplementation with Jani or other protein supplement will be helpful and potential multivitamin also to help his healing as he improves. 03/15/2019 the patient is started feels somewhat better. Wound cultures are in process with her further help direct her course of outpatient antibiotic therapy. It is still likely that he will require outpatient intravenous antibiotic therapy but hopefully would not need outpatient intravenous antifungal therapy. He is doing relatively well. As his nutrition improves we'll add in Jani and multivitamin. Current Visit: Yes Status: Acute Code(s): DXF0599 - SNOMED Code(s): 7 3725105 (2) Duodenal ulcer, perforated Current Visit: No Status: Acute Code(s): K26.5 - CHRONIC OR UNSPECIFIED DUODENAL ULCER WITH PERFORATION SNOMED Code(s): 57072340 (3) Abdominal pain Current Visit: Yes Status: Acute Code(s): R10.9 - UNSPECIFIED ABDOMINAL PAIN SNOMED Code(s): 03060371
[2019-03-16] MEDS: SODIUM CHLORIDE 0.9% 1,000 ML IV SCH ×3 (03:01→23:08)
[2019-03-16 07:40] LABS: Anisocytosis Slight; Basophils # (A) 0.1 k/uL (0-0.2); Basophils % (A) 0 %; Eosinophils # (A) 0.3 k/uL (0-0.7); Eosinophils % (A) 2 %; HCT 33.7 % (39.0-53.0); HGB 10.7 gm/dL (13.0-17.5); Hypochromasia Slight; Lymphocytes % (A) 13 %; MCHC 31.7 g/dL (31.0-37.0); MCV 91.6 fL (80.0-100.0); Mean Platelet Volume 6.9; Monocytes # (A) 0.5 k/uL (0-1.0); Monocytes % (A) 3 %; Neutrophils # (A) 12.1 k/uL (1.3-7.7); Neutrophils % (A) 80 %; Platelet Count 655 k/uL (150-450); RBC 3.68 m/uL (4.30-5.90); RDW 16.1 % (11.5-15.5); WBC 15.2 k/uL (3.8-10.6)
[2019-03-16] MEDS: SYMBICORT 160-4.5 MCG INHALER INHALATION SCH ×2 (07:46→20:44)
[2019-03-16] MEDS: IPRATROPIUM-ALBUTEROL 3 ML NEB INHALATION SCH ×3 (07:46→20:44)
[2019-03-16 07:50] LABS: African American GFR (CKD) >90 (>60 ml/min/1.73 sqM); Anion Gap 4 mmol/L; Blood Urea Nitrogen 8 mg/dL (9-20); Calcium 8.6 mg/dL (8.4-10.2); Carbon Dioxide 33 mmol/L (22-30); Chloride 102 mmol/L (98-107); Glucose 95 mg/dL (74-99); Potassium 3.8 mmol/L (3.5-5.1); Sodium 139 mmol/L (137-145)
[2019-03-16] MEDS: MORPHINE SULFATE 4 MG/ML SYRINGE IV PRN (10:16)
[2019-03-16] MEDS: predniSONE 10 MG TAB PO SCH (10:30)
[2019-03-16] MEDS: MEROPENEM 2 GM in SODIUM CHLORIDE 0.9% 100 ML IVPB SCH ×2 (10:30→16:56)
[2019-03-16] MEDS: PANTOPRAZOLE 40 MG TABLET PO SCH (10:30)
[2019-03-16] MEDS: SERTRALINE 100 MG TAB PO SCH (10:30)
[2019-03-16] MEDS: MULTIVITAMINS, THERA 1 EACH TAB PO SCH (10:30)
--- NOTE | 2019-03-16 11:40 | P.PN ---
<Ann Marie Xie Goran - Last Filed: 03/16/19 11:30> Subjective Progress Note Date: 03/16/19 CHIEF COMPLAINT: Abdominal pain HISTORY OF PRESENT ILLNESS: Patient examined at the bedside this morning. status post incision and drainage of abdominal wall abscess in intraperitoneal abscess performed on 03/14/2019He reports his abdominal pain is tolerable. Denies nausea or vomiting. Tolerating diet. Passing flatus. Abdominal binder intact with juice spilled on it. WBC 15.2 Hemoglobin 10.7. Wound culture is positive for gram negative bacilli. PHYSICAL EXAM: VITAL SIGNS: Reviewed. GENERAL: Well-developed in no acute distress. HEENT: No sclera icterus. Extraocular movements grossly intact. Moist buccal mucosa. Head is atraumatic, normocephalic. ABDOMEN: Soft. Nondistended. Dressing to abdomen clean dry intact-wound assessment deferred. Abdominal binder noted. NEUROLOGIC: Alert and oriented. Cranial nerves II through XII grossly intact. ASSESSMENT: 1. Abdominal abscess 2. History of exploratory laparotomy with repair of duodenal ulcer, December 2018 PLAN: 1. Continue full liquid diet 2. Await final wound culture results. Continue antibiotics per infectious disease. 3. Wound care. Wound to be examined this afternoon by Dr. Levi. Dressing change to be performed at that time. 4. New abdominal binder ordered secondary to grape juice spilled on current binder Nurse practitioner note has been reviewed by physician. Signing provider agrees with the documented findings, assessment, and plan of care. Objective - Vital Signs Vital signs: Vital Signs Temp 98.5 F 03/16/19 07:00 Pulse 83 03/16/19 07:00 Resp 16 03/16/19 07:00 BP 109/70 03/16/19 07:00 Pulse Ox 93 L 03/16/19 07:00 Intake & Output 03/15/19 03/16/19 03/16/19 18:59 06:59 18:59 Intake Total 240 1130 240 Output Total 850 Balance 240 280 240 Intake: Intake, IV Titration 600 Amount Sodium Chloride 0.9% 1, 600 000 ml @ 50 mls/hr IV . Q20H [facility] Rx#:[id number] Oral 240 530 240 Output: Urine 850 Other: Voiding Method Urinal # Voids 2 - Labs CBC & Chem 7: 03/16/19 06:55 03/16/19 06:55 Labs: Abnormal Lab Results - Last 24 Hours (Table) 03/16/19 03/16/19 Range/Units 06:55 06:55 WBC 15.2 H (3.8-10.6) k/uL RBC 3.68 L (4.30-5.90) m/uL Hgb 10.7 L (13.0-17.5) gm/dL Hct 33.7 L (39.0-53.0) % RDW 16.1 H (11.5-15.5) % Plt Count 655 H (150-450) k/uL Neutrophils # 12.1 H (1.3-7.7) k/uL Carbon Dioxide 33 H (22-30) mmol/L BUN 8 L (9-20) mg/dL Creatinine 0.49 L (0.66-1.25) mg/dL Microbiology - Last 24 Hours (Table) 03/14/19 07:44 Blood Culture - Preliminary Blood No Growth after 48 hours 03/14/19 16:12 Gram Stain - Preliminary Abdomen Wound Culture - Preliminary Gram Neg Bacilli <Chucky Levi - Last Filed: 03/16/19 15:59> Subjective As above. Patient doing better today. He states his pain is improved. No significant drainage on the dressing at this time. White blood cell count decreased from yesterday. Wound cultures showing gram-negative bacilli. Wound dressing was changed by myself and the nursing staff. Both Aquacel silver portions appropriate were free of enteric contents. Minimal to no purulent fluid at this time at the base of the wound. Tenderness seems less as well. Wound repacked with a single portion of Aquacel silver rope. This will likely be changed again tomorrow. Await infectious disease opinion regarding home antibiotics. May need PICC line. Gradually advance diet. Objective - Vital Signs Vital signs: Vital Signs Temp 97.5 F L 03/16/19 15:00 Pulse 83 03/16/19 15:00 Resp 15 03/16/19 15:00 BP 127/69 03/16/19 15:00 Pulse Ox 92 L 03/16/19 15:00 Intake & Output 03/15/19 03/16/19 03/16/19 18:59 06:59 18:59 Intake Total 240 1130 700 Output Total 850 Balance 240 280 700 Weight 72.575 kg Intake: Intake, IV Titration 600 Amount Sodium Chloride 0.9% 1, 600 000 ml @ 50 mls/hr IV . Q20H [facility] Rx#:[id number] Oral 240 530 700 Output: Urine 850 Other: Voiding Method Urinal # Voids 2 - Labs CBC & Chem 7: 03/16/19 06:55 03/16/19 06:55 Labs: Abnormal Lab Results - Last 24 Hours (Table) 03/16/19 03/16/19 Range/Units 06:55 06:55 WBC 15.2 H (3.8-10.6) k/uL RBC 3.68 L (4.30-5.90) m/uL Hgb 10.7 L (13.0-17.5) gm/dL Hct 33.7 L (39.0-53.0) % RDW 16.1 H (11.5-15.5) % Plt Count 655 H (150-450) k/uL Neutrophils # 12.1 H (1.3-7.7) k/uL Carbon Dioxide 33 H (22-30) mmol/L BUN 8 L (9-20) mg/dL Creatinine 0.49 L (0.66-1.25) mg/dL Microbiology - Last 24 Hours (Table) 03/14/19 07:44 Blood Culture - Preliminary Blood No Growth after 48 hours 03/14/19 16:12 Gram Stain - Preliminary Abdomen Wound Culture - Preliminary Gram Neg Bacilli Assessment and Plan (1) Abdominal abscess Current Visit: Yes Status: Acute Code(s): UNQ8806 - SNOMED Code(s): 75147974
[2019-03-16 14:10] VITALS: BMI 25.0
--- NOTE | 2019-03-16 15:10 | P.PN ---
Subjective Progress Note Date: 03/16/19 This is 68 years old male with recent gastric ulcer rupture status post abdominal surgery who presented to the hospital with abdominal pain and found to have abdominal abscess that was drained by general surgery yesterday and medical consult was obtained for follow-up on his complicated past medical history. Patient currently is denying chest pain, shortness breath, nausea, vomiting or dizziness stated that his abdominal pain improved at least by 75% since yesterday. Patient denied tobacco alcohol or drug abuse stated that he's compliment with his medication and doctors follow-up and his at the bedside who is the primary care provider for the patient as patient has rheumatoid arthritis and suffered from debility at home 03/16: Patient complains of soreness in his abdomen. Dressing is in place with packing. He is currently on full liquid diet and tolerating this. He denies any nausea or vomiting. Patient has been afebrile, heart rate 92, blood pressure 109/70, pulse ox 93% on room air. Repeat lab work reveals WBC of 15.2, hemoglobin 10.2, platelet count 655. BUN 18 creatinine 0.49. Wound culture is gram-negative bacilli. Patient is followed by Dr. Masters maintained on Eraxis and meropenem. Objective - Vital Signs Vital signs: Vital Signs Temp 98.5 F 03/16/19 07:00 Pulse 92 03/16/19 13:11 Resp 16 03/16/19 07:00 BP 109/70 03/16/19 07:00 Pulse Ox 93 L 03/16/19 07:00 Intake & Output 03/15/19 03/16/19 03/16/19 18:59 06:59 18:59 Intake Total 240 1130 240 Output Total 850 Balance 240 280 240 Intake: Intake, IV Titration 600 Amount Sodium Chloride 0.9% 1, 600 000 ml @ 50 mls/hr IV . Q20H [facility] Rx#:[id number] Oral 240 530 240 Output: Urine 850 Other: Voiding Method Urinal # Voids 2 - Exam Review Of Systems: Constitutional: No fever, no chills, no night sweats. No weight change. No weakness, fatigue or lethargy. EENT: No headache. No nasal drainage or congestion. No epistaxis. No sore throat. Lungs: No shortness of breath, cough, no sputum production. No wheezing. Cardiovascular: No chest pain, no lower extremity edema. No palpitations. No paroxysmal nocturnal dyspnea. No orthopnea. No lightheadedness or dizziness. No syncopal episodes. Abdominal: Reports abdominal pain. Denies nausea, vomiting. No diarrhea. Genitourinary: No dysuria, increased frequency, urgency. No urinary retention. Musculoskeletal: No myalgias. No muscle weakness, no gait dysfunction, no frequent falls. No back pain. No neck pain. Integumentary: Reports wounds, no lesions. No rash or pruritus. No unusual bruising. No change in hair or nails. Neurologic: No aphasia. No facial droop. No change in mentation. No head injury. No headache. No paralysis. No paresthesia. Psychiatric: No depression. No anxiety. No mood swings. Endocrine: No abnormal blood sugars. No weight change. No excessive sweating or thirst. No cold intolerance. Gen: This is a 68-year-old male. Patient is resting in bed appears to be comfortable. HEENT: Head is atraumatic, normocephalic. Pupils equal, round. Sclerae is anicteric. NECK: Supple. No JVD. No lymphadenopathy. No thyromegaly. LUNGS: Clear to auscultation. No wheezes or rhonchi. No intercostal re tractions. HEART: Regular rate and rhythm. No murmur. ABDOMEN: Soft. Bowel sounds are present. No masses. No tenderness. Dressing in place to the mid abdomen. EXTREMITIES: No pedal edema. No calf tenderness. NEUROLOGICAL: Patient is awake, alert and oriented x3. Cranial nerves 2 through 12 are grossly intact. - Labs CBC & Chem 7: 03/16/19 06:55 03/16/19 06:55 Labs: Abnormal Lab Results - Last 24 Hours (Table) 03/16/19 03/16/19 Range/Units 06:55 06:55 WBC 15.2 H (3.8-10.6) k/uL RBC 3.68 L (4.30-5.90) m/uL Hgb 10.7 L (13.0-17.5) gm/dL Hct 33.7 L (39.0-53.0) % RDW 16.1 H (11.5-15.5) % Plt Count 655 H (150-450) k/uL Neutrophils # 12.1 H (1.3-7.7) k/uL Carbon Dioxide 33 H (22-30) mmol/L BUN 8 L (9-20) mg/dL Creatinine 0.49 L (0.66-1.25) mg/dL Microbiology - Last 24 Hours (Table) 03/14/19 07:44 Blood Culture - Preliminary Blood No Growth after 48 hours 03/14/19 16:12 Gram Stain - Preliminary Abdomen Wound Culture - Preliminary Gram Neg Bacilli Assessment and Plan Plan: 1. Status post incision and drainage of abdominal wall abscess and intraperitoneal abscess. 2. Recent exploratory laparotomy with repair of perforated duodenal ulcer and incarcerated umbilical hernia 01/22/2019. 3. Severe leukocytosis. 4. Abdominal pain. 5. Rheumatoid arthritis with immune suppressant status due to daily use of steroids. 6. COPD. 7. Chronic respiratory failure with hypoxia home oxygen dependent. 8. Debility and deconditioning 9. Hypertension. 10. Insomnia. 11. Electrolyte imbalance with hyponatremia. 12. Hyperlipidemia. 13. Generalized osteoarthritis. 14. Obstructive sleep apnea. Patient is tolerating clear liquid diet. Continue Eraxis and Zosyn. Continue aggressive bowel regimen. Patient will require DVT and GI prophylaxis with heparin subcu and Protonix. Impression and plan of care have been directed as dictated by the signing phys juan m. [place] nurse practitioner acting as scribe for signing physician.
[2019-03-16] MEDS: HYDROcodone/APAP 10-325MG 1 EACH TAB PO PRN (17:09)
[2019-03-16] MEDS: ANIDULAFUNGIN 100 MG in SODIUM CHLORIDE 0.9% 100 ML IVPB SCH (19:08)
[2019-03-16] MEDS: MIRTAZAPINE 15 MG TAB PO SCH (20:42)
[2019-03-16] MEDS: HEPARIN SODIUM,PORCINE 5,000 UNIT/ML 1 ML VIAL SQ SCH (20:42)
[2019-03-16] MEDS: MELATONIN 5 MG TABLET PO SCH (20:43)
[2019-03-17] MEDS: MEROPENEM 2 GM in SODIUM CHLORIDE 0.9% 100 ML IVPB SCH ×3 (00:09→18:13)
[2019-03-17] MEDS: HYDROcodone/APAP 10-325MG 1 EACH TAB PO PRN ×3 (00:11→19:26)
[2019-03-17] MEDS: IPRATROPIUM-ALBUTEROL 3 ML NEB INHALATION SCH ×5 (03:23→19:33)
[2019-03-17] MEDS: SYMBICORT 160-4.5 MCG INHALER INHALATION SCH ×2 (07:22→19:13)
[2019-03-17 08:42] LABS: Anisocytosis Slight; Basophils # (A) 0.1 k/uL (0-0.2); Basophils % (A) 0 %; Eosinophils # (A) 0.3 k/uL (0-0.7); Eosinophils % (A) 2 %; HCT 33.4 % (39.0-53.0); HGB 10.6 gm/dL (13.0-17.5); Hypochromasia Slight; Lymphocytes % (A) 12 %; MCHC 31.9 g/dL (31.0-37.0); MCV 94.2 fL (80.0-100.0); Mean Platelet Volume 7.4; Monocytes # (A) 0.5 k/uL (0-1.0); Monocytes % (A) 3 %; Neutrophils # (A) 13.5 k/uL (1.3-7.7); Neutrophils % (A) 81 %; Platelet Count 607 k/uL (150-450); RBC 3.54 m/uL (4.30-5.90); RDW 16.4 % (11.5-15.5); WBC 16.7 k/uL (3.8-10.6)
[2019-03-17] MEDS: HEPARIN SODIUM,PORCINE 5,000 UNIT/ML 1 ML VIAL SQ SCH ×2 (10:11→20:42)
[2019-03-17] MEDS: MULTIVITAMINS, THERA 1 EACH TAB PO SCH (10:12)
[2019-03-17] MEDS: SERTRALINE 100 MG TAB PO SCH (10:12)
[2019-03-17] MEDS: PANTOPRAZOLE 40 MG TABLET PO SCH (10:12)
[2019-03-17] MEDS: predniSONE 10 MG TAB PO SCH (10:12)
--- NOTE | 2019-03-17 11:25 | P.PN ---
<Ann Marie Xie Goran - Last Filed: 03/17/19 11:21> Subjective Progress Note Date: 03/17/19 CHIEF COMPLAINT: Abdominal pain HISTORY OF PRESENT ILLNESS: Patient examined at the bedside this morning. status post incision and drainage of abdominal wall abscess in intraperitoneal abscess performed on 03/14/2019. He reports his abdominal pain is tolerable. Denies nausea or vomiting. Tolerating diet. Passing flatus. Bowel movement this morning. WBC increased slightly to 16.7. Wound culture positive for gram negative bacilli/proteus vulgaris. Hemoglobin 10.6. Vital signs stable. Afeb rile. PHYSICAL EXAM: VITAL SIGNS: Reviewed. GENERAL: Well-developed in no acute distress. HEENT: No sclera icterus. Extraocular movements grossly intact. Moist buccal mucosa. Head is atraumatic, normocephalic. ABDOMEN: Soft. Nondistended. Dressing to abdomen clean dry intact-wound assessment deferred. Abdominal binder noted. NEUROLOGIC: Alert and oriented. Cranial nerves II through XII grossly intact. ASSESSMENT: 1. Abdominal abscess 2. History of exploratory laparotomy with repair of duodenal ulcer, December 2018 PLAN: 1. Continue current diet 2. Patient to receive midline IV catheter today 3. Outpatient IV antibiotics per Dr. Shamra 4. Dr. Levi to re-examine wound this afternoon Nurse practitioner note has been reviewed by physician. Signing provider agrees with the documented findings, assessment, and plan of care. Objective - Vital Signs Vital signs: Vital Signs Temp 97.8 F 03/17/19 07:00 Pulse 92 03/17/19 07:32 Resp 18 03/17/19 07:00 BP 107/58 03/17/19 07:00 Pulse Ox 94 L 03/17/19 07:00 Intake & Output 03/16/19 03/17/19 03/17/19 18:59 06:59 18:59 Intake Total 936 180 Output Total 350 Balance 936 -350 180 Weight 72.575 kg Intake: Oral 936 180 Output: Urine 350 Other: Voiding Method Urinal # Voids 2 - Labs CBC & Chem 7: 03/17/19 07:26 03/16/19 06:55 Labs: Abnormal Lab Results - Last 24 Hours (Table) 03/17/19 Range/Units 07:26 WBC 16.7 H (3.8-10.6) k/uL RBC 3.54 L (4.30-5.90) m/uL Hgb 10.6 L (13.0-17.5) gm/dL Hct 33.4 L (39.0-53.0) % RDW 16.4 H (11.5-15.5) % Plt Count 607 H (150-450) k/uL Neutrophils # 13.5 H (1.3-7.7) k/uL Microbiology - Last 24 Hours (Table) 03/14/19 07:44 Blood Culture - Preliminary Blood No Growth after 72 hours 03/14/19 16:12 Gram Stain - Preliminary Abdomen Wound Culture - Preliminary Gram Neg Bacilli Proteus vulgaris <Chucky Levi - Last Filed: 03/17/19 17:26> Subjective As above. Patient doing well. Wound is spinneret cleaner. Less drainage. White blood cell count did increase slightly. Cultures noted. Will discuss further regarding wound VAC therapy with Dr. Sharma. Possible discharge tomorrow on IV antibiotics. Objective - Vital Signs Vital signs: Vital Signs Temp 98.2 F 03/17/19 15:15 Pulse 96 03/17/19 15:33 Resp 24 03/17/19 15:19 BP 132/69 03/17/19 15:15 Pulse Ox 95 03/17/19 15:15 Intake & Output 03/16/19 03/17/19 03/17/19 18:59 06:59 18:59 Intake Total 936 530 Output Total 350 Balance 936 -350 530 Weight 72.575 kg Intake: Oral 936 530 Output: Urine 350 Other: Voiding Method Urinal Toilet # Voids 2 3 - Labs CBC & Chem 7: 03/17/19 07:26 03/16/19 06:55 Labs: Abnormal Lab Results - Last 24 Hours (Table) 03/17/19 Range/Units 07:26 WBC 16.7 H (3.8-10.6) k/uL RBC 3.54 L (4.30-5.90) m/uL Hgb 10.6 L (13.0-17.5) gm/dL Hct 33.4 L (39.0-53.0) % RDW 16.4 H (11.5-15.5) % Plt Count 607 H (150-450) k/uL Neutrophils # 13.5 H (1.3-7.7) k/uL Microbiology - Last 24 Hours (Table) 03/14/19 07:44 Blood Culture - Preliminary Blood No Growth after 72 hours 03/14/19 16:12 Gram Stain - Preliminary Abdomen Wound Culture - Preliminary Gram Neg Bacilli Proteus vulgaris Assessment and Plan (1) Abdominal abscess Current Visit: Yes Status: Acute Code(s): QNT0769 - SNOMED Code(s): 68600833
--- NOTE | 2019-03-17 15:04 | P.PN ---
Subjective Progress Note Date: 03/17/19 This is 68 years old male with recent gastric ulcer rupture status post abdominal surgery who presented to the hospital with abdominal pain and found to have abdominal abscess that was drained by general surgery yesterday and medical consult was obtained for follow-up on his complicated past medical history. Patient currently is denying chest pain, shortness breath, nausea, vomiting or dizziness stated that his abdominal pain improved at least by 75% since yesterday. Patient denied tobacco alcohol or drug abuse stated that he's compliment with his medication and doctors follow-up and his at the bedside who is the primary care provider for the patient as patient has rheumatoid arthritis and suffered from debility at home 03/16: Patient complains of soreness in his abdomen. Dressing is in place with packing. He is currently on full liquid diet and tolerating this. He denies any nausea or vomiting. Patient has been afebrile, heart rate 92, blood pressure 109/70, pulse ox 93% on room air. Repeat lab work reveals WBC of 15.2, hemoglobin 10.2, platelet count 655. BUN 18 creatinine 0.49. Wound culture is gram-negative bacilli. Patient is followed by Dr. Masters maintained on Eraxis and meropenem. 03/17: Patient has been afebrile, heart rate 92, blood pressure 107/58, pulse ox 94% on 3 L nasal cannula. Repeat CBC WBC 16.7, hemoglobin 10.6, platelet count 607. Abdominal wound culture is positive for gram-negative bacilli and Proteus vulgaris. Patient is continued on Eraxis and meropenem. He was started on a regular diet last evening and tolerating. Dr. Sharma is now handling this case. Midline has been placed. Objective - Vital Signs Vital signs: Vital Signs Temp 97.8 F 03/17/19 07:00 Pulse 92 03/17/19 07:32 Resp 18 03/17/19 07:00 BP 107/58 03/17/19 07:00 Pulse Ox 94 L 03/17/19 07:00 Intake & Output 03/16/19 03/17/19 03/17/19 18:59 06:59 18:59 Intake Total 936 Output Total 350 Balance 936 -350 Weight 72.575 kg Intake: Oral 936 Output: Urine 350 Other: Voiding Method Urinal # Voids 2 - Exam Review Of Systems: Constitutional: No fever, no chills, no night sweats. EENT: No headache. No nasal drainage or congestion. No epistaxis. No sore throat. Lungs: No shortness of breath, cough, no sputum production. No wheezing. Cardiovascular: No chest pain, no lower extremity edema. No palpitations. No paroxysmal nocturnal dyspnea. No orthopnea. No lightheadedness or dizziness. No syncopal episodes. Abdominal: Reports abdominal pain. Denies nausea, vomiting. No diarrhea. Genitourinary: No dysuria, increased frequency, urgency. No urinary retention. Musculoskeletal: No myalgias. No muscle weakness, no gait dysfunction, no frequent falls. No back pain. No neck pain. Integumentary: Reports wounds, no lesions. No rash or pruritus. No unusual bruising. No change in hair or nails. Neurologic: No aphasia. No facial droop. No change in mentation. No head injury. No headache. No paralysis. No paresthesia. Psychiatric: No depression. No anxiety. No mood swings. Endocrine: No abnormal blood sugars. No weight change. No excessive sweating or thirst. No cold intolerance. Gen: This is a 68-year-old male. Patient is resting in bed appears to be comfortable. HEENT: Head is atraumatic, normocephalic. Pupils equal, round. Sclerae is ani cteric. NECK: Supple. No JVD. No lymphadenopathy. No thyromegaly. LUNGS: Clear to auscultation. No wheezes or rhonchi. No intercostal retractions. HEART: Regular rate and rhythm. No murmur. ABDOMEN: Soft. Bowel sounds are present. No masses. No tenderness. Dressing in place to the mid abdomen. EXTREMITIES: No pedal edema. No calf tenderness. NEUROLOGICAL: Patient is awake, alert and oriented x3. Cranial nerves 2 through 12 are grossly intact. - Labs CBC & Chem 7: 03/17/19 07:26 03/16/19 06:55 Labs: Abnormal Lab Results - Last 24 Hours (Table) 03/17/19 Range/Units 07:26 WBC 16.7 H (3.8-10.6) k/uL RBC 3.54 L (4.30-5.90) m/uL Hgb 10.6 L (13.0-17.5) gm/dL Hct 33.4 L (39.0-53.0) % RDW 16.4 H (11.5-15.5) % Plt Count 607 H (150-450) k/uL Neutrophils # 13.5 H (1.3-7.7) k/uL Microbiology - Last 24 Hours (Table) 03/14/19 16:12 Gram Stain - Preliminary Abdomen Wound Culture - Preliminary Gram Neg Bacilli Proteus vulgaris 03/14/19 07:44 Blood Culture - Preliminary Blood No Growth after 48 hours Assessment and Plan Plan: 1. Status post incision and drainage of abdominal wall abscess and intraperitoneal abscess. 2. Recent exploratory laparotomy with repair of perforated duodenal ulcer and incarcerated umbilical hernia 01/22/2019. 3. Severe leukocytosis. 4. Abdominal pain. 5. Rheumatoid arthritis with immune suppressant status due to daily use of steroids. 6. COPD. 7. Chronic respiratory failure with hypoxia home oxygen dependent. 8. Debility and deconditioning 9. Hypertension. 10. Insomnia. 11. Electrolyte imbalance with hyponatremia. 12. Hyperlipidemia. 13. Generalized osteoarthritis. 14. Obstructive sleep apnea. Patient is tolerating regular diet. Continue Eraxis and Zosyn. Continue aggressive bowel regimen. Patient will require DVT and GI prophylaxis with heparin subcu and Protonix. Impression and plan of care have been directed as dictated by the signing physician. [place] Salinas nurse practitioner acting as scribe for signing physici an.
--- NOTE | 2019-03-17 18:25 | PN ---
PROGRESS NOTE DATE OF SERVICE: 03/17/2019 REASON FOR FOLLOWUP: Abdominal abscess. INTERVAL HISTORY: The patient is a 68-year-old male who presented to the [facility] ER on 03/14/2019 with the chief complaint of abdominal pain in this patient who recently did have a perforated duodenal ulcer with an incarcerated umbilical hernia on 01/22/2019. The patient's pain had been getting worse before he presented to the hospital, more in the epigastric area, dull aching to sharp, 5 to 6 out of 10; no radiation. The patient had a CT scan of the abdomen and pelvis completed which showed evidence of a focal fluid collection deep to the rectus level and also a larger thin- walled fluid collection deeper to the initial collection of 6.3 x 3.2 cm, for which the patient was evaluated by General Surgery. He was taken to the OR and is status post incision and drainage of the abdominal wall as well as intraperitoneal abscess. Cultures have been obtained which are currently showing Gram-negative bacilli. The patient is being treated with broad-spectrum antibiotics in the form of Meropenem and Eraxis. As the patient has been known to my service from previous admission, care has been transitioned to me for outpatient IV antibiotic recommendation. Patient is currently afebrile. As of this morning, the patient has been breathing comfortably. Denies having any chest pain. Some shortness of breath. Occasional cough. Abdominal pain is currently well controlled with pain medication. Pain is more of a dull aching, 2 to 3 out of 10, and no radiation. Local wound care to the abdominal wound has been Aquacel Silver dressing. REVIEW OF SYSTEMS: Positive points have been mentioned in the HPI. Rest of the systems negative. Past medical and surgical history reviewed. medication reviewed. PHYSICAL EXAMINATION: Blood pressure 132/69 with a pulse of 80, temperature 98.2. He is 95% on 3 L nasal cannula. General description is an elderly male up in the bed in no distress. HEENT EXAMINATION: Pallor. There is no scleral icterus. Oral mucosa membrane is moist. NECK: Trachea is central. No megaly. LUNGS: Unlabored breathing with decreased breath sounds. No wheeze. HEART: S1, S2. Regular rate and rhythm. ABDOMEN: Soft. Did have midline wound with minimal purulent drainage. No surrounding redness or any foul-smelling. EXTREMITIES: No edema of the feet. LABS: Hemoglobin is 10.6, white count 16.7, BUN of 8, creatinine 0.49. Abdominal cultures currently showing proteus and Gram-negative bacilli. ID and sensitivities currently pending. DIAGNOSTIC IMPRESSION AND PLAN: Patient with intraabdominal wall and intraperitoneal abscess, status post surgical in this patient who recently did have a perforated duodenal ulcer and an incarcerated hernia, status post repair of the same. Will need to cover for enteric Gram-negative, especially resistant in view of recent surgery and antibiotic exposure. The patient is currently covered with Meropenem and Eraxis; to continue, waiting for the ID and to treat the second Gram-negative before deciding on discharge antibiotics; more likely IV, for which the midline has been placed. Family at the bedside. Their questions and concerns were answered. SIMIN / JULIETTE: [id number] /
[2019-03-17] MEDS ORDERED: IPRATROPIUM-ALBUTEROL 3 ML NEB INHALATION PRN (19:16)
[2019-03-17] MEDS: ANIDULAFUNGIN 100 MG in SODIUM CHLORIDE 0.9% 100 ML IVPB SCH (19:18)
[2019-03-17] MEDS: SODIUM CHLORIDE 0.9% 1,000 ML IV SCH (19:29)
[2019-03-17] MEDS: MELATONIN 5 MG TABLET PO SCH (20:42)
[2019-03-17] MEDS: MIRTAZAPINE 15 MG TAB PO SCH (20:43)
[2019-03-18] MEDS: MEROPENEM 2 GM in SODIUM CHLORIDE 0.9% 100 ML IVPB SCH ×2 (00:51→08:54)
[2019-03-18] MEDS: SODIUM CHLORIDE 0.9% 1,000 ML IV SCH ×2 (05:59→16:11)
[2019-03-18] MEDS: HYDROcodone/APAP 10-325MG 1 EACH TAB PO PRN ×2 (05:59→19:31)
[2019-03-18 07:48] LABS: Anisocytosis Slight; Basophils # (A) 0.1 k/uL (0-0.2); Basophils % (A) 1 %; Eosinophils # (A) 0.6 k/uL (0-0.7); Eosinophils % (A) 4 %; HCT 36.7 % (39.0-53.0); HGB 11.1 gm/dL (13.0-17.5); Lymphocytes # (A) 2.4 k/uL (1.0-4.8); Lymphocytes % (A) 16 %; MCHC 30.4 g/dL (31.0-37.0); MCV 95.6 fL (80.0-100.0); Mean Platelet Volume 6.4; Monocytes # (A) 0.6 k/uL (0-1.0); Monocytes % (A) 4 %; Neutrophils # (A) 11.5 k/uL (1.3-7.7); Neutrophils % (A) 75 %; Platelet Count 729 k/uL (150-450); RBC 3.84 m/uL (4.30-5.90); RDW 16.4 % (11.5-15.5); WBC 15.4 k/uL (3.8-10.6)
[2019-03-18] MEDS: predniSONE 10 MG TAB PO SCH (08:13)
[2019-03-18] MEDS: SERTRALINE 100 MG TAB PO SCH (08:14)
[2019-03-18] MEDS: MULTIVITAMINS, THERA 1 EACH TAB PO SCH (08:14)
[2019-03-18] MEDS: PANTOPRAZOLE 40 MG TABLET PO SCH (08:14)
[2019-03-18] MEDS: HEPARIN SODIUM,PORCINE 5,000 UNIT/ML 1 ML VIAL SQ SCH ×2 (08:15→20:41)
[2019-03-18] MEDS: SYMBICORT 160-4.5 MCG INHALER INHALATION SCH ×2 (08:52→20:08)
[2019-03-18] MEDS: IPRATROPIUM-ALBUTEROL 3 ML NEB INHALATION SCH ×3 (08:52→20:08)
[2019-03-18] MEDS ORDERED: SODIUM CHLORIDE 0.9% 500 ML 500 ML IV ONE (09:28)
--- NOTE | 2019-03-18 13:37 | PN ---
PROGRESS NOTE DATE OF SERVICE: 03/18/2019 REASON FOR FOLLOWUP: Abdominal abscess gram-negative. INTERVAL HISTORY: The patient is currently afebrile. Patient has been breathing comfortably. Denies having any chest pain. Occasional cough. No nausea, no vomiting. No abdominal pain or any diarrhea. PHYSICAL EXAMINATION: On examination, blood pressure is 122/74 with a pulse of 87, temperature of 98. He is 95% on 3 L nasal cannula. General description is an elderly male lying in bed in no distress. RESPIRATORY SYSTEM: Unlabored breathing, clear to auscultation anteriorly. HEART: S1, S2. Regular rate and rhythm. ABDOMEN: Soft, no tenderness. LABS: Hemoglobin is 11.1, white count 15.4, creatinine 0.49. Abdominal culture finalized with Citrobacter and Proteus vulgaris and anaerobic gram-negative bacilli. DIAGNOSTIC IMPRESSION AND PLAN: Patient with abdominal wall intraabdominal abscess status post drainage. Cultures remain positive for Citrobacter, Proteus and anaerobic gram-negative bacilli. Antibiotic will be adjusted to Rocephin 2 grams daily in addition to oral Flagyl. Outpatient IV antibiotic currently in the process of being arranged. Hopefully discharge home in the a.m. We are waiting for the white count to improve as well. Local wound care with Aquacel Silver packing. Continue supportive care. MMODL / IJN: [id number] /
--- NOTE | 2019-03-18 13:42 | P.PN ---
<Ann Marie Xie Goran - Last Filed: 03/18/19 13:36> Subjective Progress Note Date: 03/18/19 CHIEF COMPLAINT: Abdominal pain HISTORY OF PRESENT ILLNESS: Patient examined at the bedside this morning. status post incision and drainage of abdominal wall abscess in intraperitoneal abscess performed on 03/14/2019. He reports his abdominal pain is tolerable. Denies nausea or vomiting. Tolerating diet. Passing flatus and having BMs. WBC 15.4 today. Patient is afebrile. Wound culture positive for citrobacter braakii and proteus vulgaris PHYSICAL EXAM: VITAL SIGNS: Reviewed. GENERAL: Well-developed in no acute distress. HEENT: No sclera icterus. Extraocular movements grossly intact. Moist buccal mucosa. Head is atraumatic, normocephalic. ABDOMEN: Soft. Nondistended. Dressing to abdomen clean dry intact. Abdominal binder noted. NEUROLOGIC: Alert and oriented. Cranial nerves II through XII grossly intact. ASSESSMENT: 1. Abdominal abscess 2. History of exploratory laparotomy with repair of duodenal ulcer, December 2018 PLAN: 1. Continue current diet 2. No wound vac at this time 3. Antibiotics per Dr. Sharma. currently receiving ceftriaxone and Flagyl. 4. Repeat CBC in a.m. If WBC continues to trend down, anticipate discharge home tomorrow on IV antibiotics Nurse practitioner note has been reviewed by physician. Signing provider agrees with the documented findings, assessment, and plan of care. Objective - Vital Signs Vital signs: Vital Signs Temp 98.0 F 03/18/19 07:07 Pulse 101 H 03/18/19 13:13 Resp 16 03/18/19 10:26 BP 122/74 03/18/19 07:07 Pulse Ox 95 03/18/19 07:07 Intake & Output 03/17/19 03/18/19 03/18/19 18:59 06:59 18:59 Intake Total 830 250 200 Output Total 400 500 Balance 830 -150 -300 Intake: Intake, IV Titration 250 Amount Anidulafungin 100 mg In 100 Sodium Chloride 0.9% 100 ml @ 84 mls/hr IVPB Q24H [facility] Rx#:[id number] Sodium Chloride 0.9% 1, 150 000 ml @ 50 mls/hr IV . Q20H [facility] Rx#:[id number] Oral 830 200 Output: Urine 400 500 Other: Voiding Method Toilet Toilet Toilet Urinal Bedside Commode Urinal # Voids 3 1 1 # Bowel Movements 2 1 - Labs CBC & Chem 7: 03/18/19 07:30 03/16/19 06:55 Labs: Abnormal Lab Results - Last 24 Hours (Table) 03/18/19 Range/Units 07:30 WBC 15.4 H (3.8-10.6) k/uL RBC 3.84 L (4.30-5.90) m/uL Hgb 11.1 L (13.0-17.5) gm/dL Hct 36.7 L (39.0-53.0) % MCHC 30.4 L (31.0-37.0) g/dL RDW 16.4 H (11.5-15.5) % Plt Count 729 H (150-450) k/uL Neutrophils # 11.5 H (1.3-7.7) k/uL Microbiology - Last 24 Hours (Table) 03/14/19 07:44 Blood Culture - Preliminary Blood No Growth after 96 hours 03/14/19 16:12 Anaerobic Culture - Final Abdomen Anaerobic Gm Negative Bacilli Anaerobic Gm Negative Bacilli#2 Anaerobic Gm Negative Bacilli#3 03/14/19 16:12 Gram Stain - Final Abdomen Wound Culture - Final Citrobacter braakii Proteus vulgaris <Chucky Levi - Last Filed: 03/18/19 18:29> Subjective Patient doing well. Pain is mild. White blood cell count improved. No fevers. Tolerating diet. Cultures are multi-microbial. Continue antibiotics per infectious disease. Possible discharge tomorrow. Will plan follow-up CAT scan 1-2 weeks. Objective - Vital Signs Vital signs: Vital Signs Temp 98.2 F 03/18/19 14:55 Pulse 113 H 03/18/19 16:12 Resp 22 03/18/19 16:12 BP 98/62 03/18/19 14:55 Pulse Ox 93 L 03/18/19 14:55 Intake & Output 03/17/19 03/18/19 03/18/19 18:59 06:59 18:59 Intake Total 365 625 3666 Output Total 400 500 Balance 830 -150 950 Intake: Intake, IV Titration 250 1250 Amount Anidulafungin 100 mg In 100 Sodium Chloride 0.9% 100 ml @ 84 mls/hr IVPB Q24H [facility] Rx#:[id number] Meropenem 2 gm In Sodium 100 Chloride 0.9% 100 ml @ 200 mls/hr IVPB Q8HR [facility] Rx#:[id number] Sodium Chloride 0.9% 1, 150 600 000 ml @ 75 mls/hr IV . [id number] [facility] Rx#:[id number] Sodium Chloride 0.9% 500 500 ml 500 ml @ 999 mls/hr IV .Q31M [facility] Rx#:[id number] cefTRIAXone 2 gm In 50 Sodium Chloride 0.9% 50 ml @ 100 mls/hr IVPB Q24HR [facility] Rx#:[id number] Oral 830 200 Output: Urine 400 500 Other: Voiding Method Toilet Toilet Toilet Urinal # Voids 3 1 1 # Bowel Movements 2 1 - Labs CBC & Chem 7: 03/18/19 07:30 03/16/19 06:55 Labs: Abnormal Lab Results - Last 24 Hours (Table) 03/18/19 Range/Units 07:30 WBC 15.4 H (3.8-10.6) k/uL RBC 3.84 L (4.30-5.90) m/uL Hgb 11.1 L (13.0-17.5) gm/dL Hct 36.7 L (39.0-53.0) % MCHC 30.4 L (31.0-37.0) g/dL RDW 16.4 H (11.5-15.5) % Plt Count 729 H (150-450) k/uL Neutrophils # 11.5 H (1.3-7.7) k/uL Microbiology - Last 24 Hours (Table) 03/14/19 07:44 Blood Culture - Preliminary Blood No Growth after 96 hours 03/14/19 16:12 Anaerobic Culture - Final Abdomen Anaerobic Gm Negative Bacilli Anaerobic Gm Negative Bacilli#2 Anaerobic Gm Negative Bacilli#3 03/14/19 16:12 Gram Stain - Final Abdomen Wound Culture - Final Citrobacter braakii Proteus vulgaris Assessment and Plan (1) Abdominal abscess Current Visit: Yes Status: Acute Code(s): [id number] - SNOMED Code(s): 17492281
[2019-03-18] MEDS: metroNIDAZOLE 500 MG TAB PO SCH ×2 (16:10→20:41)
--- NOTE | 2019-03-18 16:11 | P.PN ---
Subjective Progress Note Date: 03/18/19 This is 68 years old male with recent gastric ulcer rupture status post abdominal surgery who presented to the hospital with abdominal pain and found to have abdominal abscess that was drained by general surgery yesterday and medical consult was obtained for follow-up on his complicated past medical history. Patient currently is denying chest pain, shortness breath, nausea, vomiting or dizziness stated that his abdominal pain improved at least by 75% since yesterday. Patient denied tobacco alcohol or drug abuse stated that he's compliment with his medication and doctors follow-up and his at the bedside who is the primary care provider for the patient as patient has rheumatoid arthritis and suffered from debility at home 03/16: Patient complains of soreness in his abdomen. Dressing is in place with packing. He is currently on full liquid diet and tolerating this. He denies any nausea or vomiting. Patient has been afebrile, heart rate 92, blood pressure 109/70, pulse ox 93% on room air. Repeat lab work reveals WBC of 15.2, hemoglobin 10.2, platelet count 655. BUN 18 creatinine 0.49. Wound culture is gram-negative bacilli. Patient is followed by Dr. Masters maintained on Eraxis and meropenem. 03/17: Patient has been afebrile, heart rate 92, blood pressure 107/58, pulse ox 94% on 3 L nasal cannula. Repeat CBC WBC 16.7, hemoglobin 10.6, platelet count 607. Abdominal wound culture is positive for gram-negative bacilli and Proteus vulgaris. Patient is continued on Eraxis and meropenem. He was started on a regular diet last evening and tolerating. Dr. Sharma is now handling this case. Midline has been placed. 03/18: Patient remains afebrile, heart rate 88, blood pressure 122/74, pulse ox 95% on 3 L nasal cannula. WBC 15.4, hemoglobin 11.1, platelet count 729. Timo snider denies any new complaints. Wound culture is positive for Proteus vulgaris and Citrobacter braakii. Anaerobic culture finalized with 3 gram-negative bacilli organisms. Patient is tolerating diet. He denies any nausea or vomiting. He has had bowel movement. Anticipate possible discharge in the next 24 hours. Objective - Vital Signs Vital signs: Vital Signs Temp 98.0 F 03/18/19 07:07 Pulse 88 03/18/19 08:52 Resp 16 03/18/19 07:07 BP 122/74 03/18/19 07:07 Pulse Ox 95 03/18/19 07:07 Intake & Output 03/17/19 03/18/19 03/18/19 18:59 06:59 18:59 Intake Total 830 250 Output Total 400 Balance 830 -150 Intake: Intake, IV Titration 250 Amount Anidulafungin 100 mg In 100 Sodium Chloride 0.9% 100 ml @ 84 mls/hr IVPB Q24H [facility] Rx#:[id number] Sodium Chloride 0.9% 1, 150 000 ml @ 50 mls/hr IV . Q20H [facility] Rx#:[id number] Oral 830 Output: Urine 400 Other: Voiding Method Toilet Toilet Urinal # Voids 3 1 # Bowel Movements 2 - Exam Review Of Systems: Constitutional: No fever, no chills, no night sweats. EENT: No headache. No nasal drainage or congestion. No epistaxis. No sore throat. Lungs: No shortness of breath, cough, no sputum production. No wheezing. Cardiovascular: No chest pain, no lower extremity edema. No palpitations. No paroxysmal nocturnal dyspnea. No orthopnea. No lightheadedness or dizziness. Abdominal: Reports abdominal pain. Denies nausea, vomiting. No diarrhea. Genitourinary: No dysuria, increased frequency, urgency. No urinary retention. Musculoskeletal: No myalgias. No muscle weakness, no gait dysfunction, no frequent falls. No back pain. No neck pain. Integumentary: Reports wounds, no lesions. No rash or pruritus. No unusual bruising. No change in hair or nails. Neurologic: No aphasia. No facial droop. No change in mentation. No head injury. No headache. No paralysis. No paresthesia. Psychiatric: No depression. No anxiety. No mood swings. Endocrine: No abnormal blood sugars. No weight change. No excessive sweating or thirst. No cold intolerance. Gen: This is a 68-year-old male. Patient is resting in bed appears to be comfortable. HEENT: Head is atraumatic, normocephalic. Pupils equal, round. Sclerae is anicteric. NECK: Supple. No JVD. No lymphadenopathy. No thyromegaly. LUNGS: Clear to auscultation. No wheezes or rhonchi. No intercostal retractions. HEART: Regular rate and rhythm. No murmur. ABDOMEN: Soft. Bowel sounds are present. No masses. No tenderness. Binder and Dressing in place to the mid abdomen. EXTREMITIES: No pedal edema. No calf tenderness. NEUROLOGICAL: Patient is awake, alert and oriented x3. Cranial nerves 2 through 12 are grossly intact. - Labs CBC & Chem 7: 03/18/19 07:30 03/16/19 06:55 Labs: Abnormal Lab Results - Last 24 Hours (Table) 03/18/19 Range/Units 07:30 WBC 15.4 H (3.8-10.6) k/uL RBC 3.84 L (4.30-5.90) m/uL Hgb 11.1 L (13.0-17.5) gm/dL Hct 36.7 L (39.0-53.0) % MCHC 30.4 L (31.0-37.0) g/dL RDW 16.4 H (11.5-15.5) % Plt Count 729 H (150-450) k/uL Neutrophils # 11.5 H (1.3-7.7) k/uL Microbiology - Last 24 Hours (Table) 03/14/19 16:12 Anaerobic Culture - Final Abdomen Anaerobic Gm Negative Bacilli Anaerobic Gm Negative Bacilli#2 Anaerobic Gm Negative Bacilli#3 03/14/19 16:12 Gram Stain - Final Abdomen Wound Culture - Final Citrobacter braakii Proteus vulgaris 03/14/19 07:44 Blood Culture - Preliminary Blood No Growth after 72 hours Assessment and Plan Plan: 1. Status post incision and drainage of abdominal wall abscess and intraperitoneal abscess. 2. Recent exploratory laparotomy with repair of perforated duodenal ulcer and incarcerated umbilical hernia 01/22/2019. 3. Severe leukocytosis. 4. Abdominal pain. 5. Rheumatoid arthritis with immune suppressant status due to daily use of steroids. 6. COPD. 7. Chronic respiratory failure with hypoxia home oxygen dependent. 8. Debility and deconditioning 9. Hypertension. 10. Insomnia. 11. Electrolyte imbalance with hyponatremia. 12. Hyperlipidemia. 13. Generalized osteoarthritis. 14. Obstructive sleep apnea. Patient is tolerating regular diet. Antibiotics transitioned to Rocephin and Flagyl. Continue DVT and GI prophylaxis with heparin subcu and Protonix. Anticipate possible discharge tomorrow. Impression and plan of care have been directed as dictated by the signing physician. [place] Salinas nurse practitioner acting as scribe for signing physician.
[2019-03-18 20:19] LABS: Glucose,Whole Blood 103 mg/dL (75-99)
[2019-03-18] MEDS: MELATONIN 5 MG TABLET PO SCH (20:41)
[2019-03-18] MEDS: MIRTAZAPINE 15 MG TAB PO SCH (20:41)
[2019-03-19] MEDS: IPRATROPIUM-ALBUTEROL 3 ML NEB INHALATION SCH ×3 (07:02→20:24)
[2019-03-19] MEDS: SYMBICORT 160-4.5 MCG INHALER INHALATION SCH ×2 (07:02→20:24)
[2019-03-19 07:17] LABS: Anisocytosis Slight; Basophils # (A) 0.1 k/uL (0-0.2); Basophils % (A) 1 %; Eosinophils # (A) 0.7 k/uL (0-0.7); Eosinophils % (A) 4 %; HCT 37.3 % (39.0-53.0); HGB 11.6 gm/dL (13.0-17.5); Hypochromasia Slight; Lymphocytes # (A) 2.6 k/uL (1.0-4.8); Lymphocytes % (A) 14 %; MCV 93.6 fL (80.0-100.0); Mean Platelet Volume 6.9; Monocytes # (A) 0.5 k/uL (0-1.0); Monocytes % (A) 3 %; Neutrophils % (A) 77 %; Platelet Count 850 k/uL (150-450); RBC 3.98 m/uL (4.30-5.90); WBC 18.2 k/uL (3.8-10.6)
[2019-03-19] MEDS: PANTOPRAZOLE 40 MG TABLET PO SCH (07:27)
[2019-03-19] MEDS: HYDROcodone/APAP 10-325MG 1 EACH TAB PO PRN ×2 (07:28→16:24)
[2019-03-19] MEDS: metroNIDAZOLE 500 MG TAB PO SCH ×3 (09:04→22:14)
[2019-03-19] MEDS: SERTRALINE 100 MG TAB PO SCH (09:04)
[2019-03-19] MEDS: HEPARIN SODIUM,PORCINE 5,000 UNIT/ML 1 ML VIAL SQ SCH ×2 (09:04→20:02)
[2019-03-19] MEDS: MULTIVITAMINS, THERA 1 EACH TAB PO SCH (09:04)
[2019-03-19] MEDS: predniSONE 10 MG TAB PO SCH (09:04)
--- NOTE | 2019-03-19 10:27 | P.PN ---
Subjective Progress Note Date: 03/19/19 CHIEF COMPLAINT: Abdominal pain HISTORY OF PRESENT ILLNESS: Patient examined at the bedside this morning. status post incision and drainage of abdominal wall abscess in intraperitoneal abscess performed on 03/14/2019. He reports his abdominal pain is tolerable. Denies nausea or vomiting. Tolerating diet. Passing flatus and having BMs. Wound culture positive for citrobacter braakii and proteus vulgaris. patient currently receiving ceftriaxone and Flagyl. WBC increased today to 18.2. patient is afebrile. Vital signs stable. PHYSICAL EXAM: VITAL SIGNS: Reviewed. GENERAL: Well-developed in no acute distress. HEENT: No sclera icterus. Extraocular movements grossly intact. Moist buccal mucosa. Head is atraumatic, normocephalic. ABDOMEN: Soft. Nondistended. Dressing to abdomen clean dry intact. Abdominal binder noted. NEUROLOGIC: Alert and oriented. Cranial nerves II through XII grossly intact. ASSESSMENT: 1. Abdominal abscess 2. History of exploratory laparotomy with repair of duodenal ulcer, December 2018 PLAN: 1. Continue current diet 2. No wound vac at this time 3. Antibiotics per Dr. Sharma. currently receiving ceftriaxone and Flagyl. 4. Patient is stable for discharge from a surgical standpoint when cleared by infectious disease Nurse practitioner note has been reviewed by physician. Signing provider agrees with the documented findings, assessment, and plan of care. Objective - Vital Signs Vital signs: Vital Signs Temp 97.8 F 03/19/19 07:00 Pulse 88 03/19/19 07:13 Resp 16 03/19/19 07:00 BP 112/70 03/19/19 07:00 Pulse Ox 95 03/19/19 07:00 Intake & Output 03/18/19 03/19/19 03/19/19 18:59 06:59 18:59 Intake Total 1800 240 Output Total 500 500 Balance 1300 -260 Intake: Intake, IV Titration 1250 Amount Meropenem 2 gm In Sodium 100 Chloride 0.9% 100 ml @ 200 mls/hr IVPB Q8HR [facility] Rx#:[id number] Sodium Chloride 0.9% 1, 600 000 ml @ 75 mls/hr IV . [id number] [facility] Rx#:[id number] Sodium Chloride 0.9% 500 500 ml 500 ml @ 999 mls/hr IV .Q31M [facility] Rx#:[id number] cefTRIAXone 2 gm In 50 Sodium Chloride 0.9% 50 ml @ 100 mls/hr IVPB Q24HR [facility] Rx#:[id number] Oral 550 240 Output: Urine 500 500 Other: Voiding Method Toilet Toilet Bedside Commode Urinal # Voids 1 1 # Bowel Movements 1 - Labs CBC & Chem 7: 03/19/19 06:44 03/16/19 06:55 Labs: Abnormal Lab Results - Last 24 Hours (Table) 03/18/19 03/19/19 Range/Units 20:07 06:44 WBC 18.2 H (3.8-10.6) k/uL RBC 3.98 L (4.30-5.90) m/uL Hgb 11.6 L (13.0-17.5) gm/dL Hct 37.3 L (39.0-53.0) % RDW 17.0 H (11.5-15.5) % Plt Count 850 H (150-450) k/uL Neutrophils # 14.0 H (1.3-7.7) k/uL POC Glucose (mg/dL) 103 H (75-99) mg/dL Microbiology - Last 24 Hours (Table) 03/14/19 07:44 Blood Culture - Preliminary Blood No Growth after 120 hours
[2019-03-19] MEDS: IOPAMIDOL-300 CONTRAST 30 ML VIAL (ORAL USE) PO PRN ×2 (12:54→14:13)
--- NOTE | 2019-03-19 13:23 | P.PN ---
Subjective Progress Note Date: 03/19/19 This is 68 years old male with recent gastric ulcer rupture status post abdominal surgery who presented to the hospital with abdominal pain and found to have abdominal abscess that was drained by general surgery yesterday and medical consult was obtained for follow-up on his complicated past medical history. Patient currently is denying chest pain, shortness breath, nausea, vomiting or dizziness stated that his abdominal pain improved at least by 75% since yesterday. Patient denied tobacco alcohol or drug abuse stated that he's compliment with his medication and doctors follow-up and his at the bedside who is the primary care provider for the patient as patient has rheumatoid arthritis and suffered from debility at home 03/16: Patient complains of soreness in his abdomen. Dressing is in place with packing. He is currently on full liquid diet and tolerating this. He denies any nausea or vomiting. Patient has been afebrile, heart rate 92, blood pressure 109/70, pulse ox 93% on room air. Repeat lab work reveals WBC of 15.2, hemoglobin 10.2, platelet count 655. BUN 18 creatinine 0.49. Wound culture is gram-negative bacilli. Patient is followed by Dr. Masters maintained on Eraxis and meropenem. 03/17: Patient has been afebrile, heart rate 92, blood pressure 107/58, pulse ox 94% on 3 L nasal cannula. Repeat CBC WBC 16.7, hemoglobin 10.6, platelet count 607. Abdominal wound culture is positive for gram-negative bacilli and Proteus vulgaris. Patient is continued on Eraxis and meropenem. He was started on a regular diet last evening and tolerating. Dr. Sharma is now handling this case. Midline has been placed. 03/18: Patient remains afebrile, heart rate 88, blood pressure 122/74, pulse ox 95% on 3 L nasal cannula. WBC 15.4, hemoglobin 11.1, platelet count 729. Timo snider denies any new complaints. Wound culture is positive for Proteus vulgaris and Citrobacter braakii. Anaerobic culture finalized with 3 gram-negative bacilli organisms. Patient is tolerating diet. He denies any nausea or vomiting. He has had bowel movement. Anticipate possible discharge in the next 24 hours. 03/19: Patient denies any new complaints. Breathing status is stable, he denies any nausea or vomiting. Repeat lab work reveals increased white count of 18.2, hemoglobin 11.6, platelet count 850. Awaiting decision from Dr. Sharma regarding antibiotics the patient could be discharged home today. Objective - Vital Signs Vital signs: Vital Signs Temp 97.8 F 03/19/19 07:00 Pulse 88 03/19/19 07:13 Resp 16 03/19/19 07:00 BP 112/70 03/19/19 07:00 Pulse Ox 95 03/19/19 07:00 Intake & Output 03/18/19 03/19/19 03/19/19 18:59 06:59 18:59 Intake Total 1800 240 Output Total 500 500 Balance 1300 -260 Intake: Intake, IV Titration 1250 Amount Meropenem 2 gm In Sodium 100 Chloride 0.9% 100 ml @ 200 mls/hr IVPB Q8HR [facility] Rx#:[id number] Sodium Chloride 0.9% 1, 600 000 ml @ 75 mls/hr IV . [id number] [facility] Rx#:[id number] Sodium Chloride 0.9% 500 500 ml 500 ml @ 999 mls/hr IV .Q31M [facility] Rx#:[id number] cefTRIAXone 2 gm In 50 Sodium Chloride 0.9% 50 ml @ 100 mls/hr IVPB Q24HR [facility] Rx#:[id number] Oral 550 240 Output: Urine 500 500 Other: Voiding Method Toilet Toilet Toilet Bedside Commode Bedside Commode Urinal Urinal # Voids 1 1 # Bowel Movements 1 - Exam Review Of Systems: Constitutional: No fever, no chills, no night sweats. EENT: No headache. No nasal drainage or congestion. No epistaxis. No sore throat. Lungs: No shortness of breath, cough, no sputum production. No wheezing. Cardiovascular: No chest pain, no lower extremity edema. No palpitations. No paroxysmal nocturnal dyspnea. No orthopnea. No lightheadedness or dizziness. Abdominal: denies abdominal pain. Denies nausea, vomiting. No diarrhea. Genitourinary: No dysuria, increased frequency, urgency. No urinary retention. Musculoskeletal: No myalgias. No muscle weakness, no gait dysfunction, no freq uent falls. No back pain. No neck pain. Integumentary: Reports wounds, no lesions. No rash or pruritus. No unusual bruising. No change in hair or nails. Neurologic: No aphasia. No facial droop. No change in mentation. No head injury. No headache. No paralysis. No paresthesia. Psychiatric: No depression. No anxiety. No mood swings. Endocrine: No abnormal blood sugars. No weight change. No excessive sweating or thirst. No cold intolerance. Gen: This is a 68-year-old male. Patient is resting in bed appears to be comfortable. is at bedside HEENT: Head is atraumatic, normocephalic. Pupils equal, round. Sclerae is anicteric. NECK: Supple. No JVD. No lymphadenopathy. No thyromegaly. LUNGS: Clear to auscultation. No wheezes or rhonchi. No intercostal retractions. HEART: Regular rate and rhythm. No murmur. ABDOMEN: Soft. Bowel sounds are present. No masses. No tenderness. Binder and Dressing in place to the mid abdomen. EXTREMITIES: No pedal edema. No calf tenderness. NEUROLOGICAL: Patient is awake, alert and oriented x3. Cranial nerves 2 through 12 are grossly intact. - Labs CBC & Chem 7: 03/19/19 06:44 03/16/19 06:55 Labs: Abnormal Lab Results - Last 24 Hours (Table) 03/18/19 03/19/19 Range/Units 20:07 06:44 WBC 18.2 H (3.8-10.6) k/uL RBC 3.98 L (4.30-5.90) m/uL Hgb 11.6 L (13.0-17.5) gm/dL Hct 37.3 L (39.0-53.0) % RDW 17.0 H (11.5-15.5) % Plt Count 850 H (150-450) k/uL Neutrophils # 14.0 H (1.3-7.7) k/uL POC Glucose (mg/dL) 103 H (75-99) mg/dL Microbiology - Last 24 Hours (Table) 03/14/19 07:44 Blood Culture - Preliminary Blood No Growth after 120 hours Assessment and Plan Plan: 1. Status post incision and drainage of abdominal wall abscess and intraperitoneal abscess. 2. Recent exploratory laparotomy with repair of perforated duodenal ulcer and incarcerated umbilical hernia 01/22/2019. 3. Severe leukocytosis. 4. Abdominal pain. 5. Rheumatoid arthritis with immune suppressant status due to daily use of steroids. 6. COPD. 7. Chronic respiratory failure with hypoxia home oxygen dependent. 8. Debility and deconditioning 9. Hypertension. 10. Insomnia. 11. Electrolyte imbalance with hyponatremia. 12. Hyperlipidemia. 13. Generalized osteoarthritis. 14. Obstructive sleep apnea. Patient is tolerating regular diet. Antibiotics transitioned to Rocephin and Flagyl. Continue DVT and GI prophylaxis with heparin subcu and Protonix. Anticipate possible discharge home today. Impression and plan of care have been directed as dictated by the signing physician. [place]ia Salinas nurse practitioner acting as scribe for signing physician.
--- NOTE | 2019-03-19 13:35 | PN ---
PROGRESS NOTE DATE OF SERVICE: 03/19/2019 REASON FOR FOLLOWUP: Abdominal abscess. INTERVAL HISTORY: The patient is currently afebrile. Patient has been breathing comfortably. The patient denies having any chest pain. Occasional cough. No nausea or vomiting. Denies any worsening abdominal pain. Did have a loose stool this morning. PHYSICAL EXAMINATION: On examination, blood pressure is 112/70 with a pulse of 76 temperature 97.8. He is 95% on 3 L nasal cannula. General description is an elderly male lying in bed in no distress. RESPIRATORY SYSTEM: Unlabored breathing, clear to auscultation anteriorly. HEART: S1, S2. Regular rate and rhythm. ABDOMEN: Soft. Wound is currently dressed, no obvious drainage on the dressing. EXTREMITIES: No edema of the feet. LABS: Hemoglobin 11.3, white count of 18.2. Abdominal culture with Citrobacter, Proteus and anaerobic gram-negative bacilli. DIAGNOSTIC IMPRESSION AND PLAN: Patient with abdominal wall and intraperitoneal abscess status post drainage. Culture with Citrobacter, Proteus and anaerobic gram-negative bacilli. Patient is currently on Rocephin 2 grams daily in addition to the oral Flagyl. He did have slight jump in white count. CT of abdomen and pelvis with oral contrast evidence of any collection. CT is negative. May be able to let him go home and close outpatient followup. All his questions and concerns were answered. MMODL / IJN: [id number] /
--- NOTE | 2019-03-19 14:49 | CT ---
EXAMINATION TYPE: CT abdomen pelvis wo con DATE OF EXAM: 03/19/2019 COMPARISON: 03/14/2019 INDICATION: Follow up abscess. DLP: 434.1 mGycm, Automated exposure control for dose reduction was used. CONTRAST: 0 mL of Isovue 300. Study performed with Oral Contrast TECHNIQUE: Axial images were obtained from above the diaphragm to the pubic rami in the axial plane a t 5 mm thick sections. Reconstructed images are reviewed on the computer in the coronal plane. FINDINGS: Limited CT sections are obtained the lung bases. There are increased lung markings in the bilateral lung bases. This could be on the basis of pulmonary fibrosis superimposed on COPD.. CT ABDOMEN: Previous upper abdominal abscess is not evident. There is an open wound along the periumb ilical region. Tiny amount of air may be at the level of the peritoneal surface. Series 201 image 27 Free air is not otherwise identified within the abdomen. No suspicious abscess formation is identifi ed. Inflammatory changes remain present. There is a rounded area contains small amount of punctate ai r measuring 4.0 x 3.4 cm. Series 201 image 38 could be some residual abscess. Liver: Normal Spleen: Normal Pancreas: Normal Adrenal glands: The adrenal glands are normal. Gallbladder: Normal Kidneys: No masses are evident. No hydronephrosis is present. Peripelvic cysts at the inferior pole left kidney. Aorta: Vascular calcification is within the aorta. Inferior vena cava: Normal. CT PELVIS: Loops of bowel within the abdomen and pelvis are normal. There are loops of bowel which are incom pletely distended or lack oral contrast limiting their evaluation. Loops of bowel without contrast li miting evaluation. Note is made of multiple diverticular changes within the sigmoid colon. Appendix: Normal as visualized. Urinary bladder: Normal. Genitourinary structures: Prostate appears unremarkable. Osseous structures: No suspicious lytic or sclerotic lesions. IMPRESSIONS: 1. Previous abscess appears significantly improved. A minimal amount of air may be within the perium bilical region from the patient's abscess. 2. An additional collection adjacent to but not directly associated with the transverse colon measure s 4 cm in diameter and could be some residual abscess. This appears stable. 3. Open wound along the anterior abdominal wall at the periumbilical region.
[2019-03-19] MEDS: MIRTAZAPINE 15 MG TAB PO SCH (20:02)
[2019-03-19] MEDS: MELATONIN 5 MG TABLET PO SCH (20:02)
[2019-03-20 07:13] VITALS: TEMP 98.7
[2019-03-20] MEDS: SYMBICORT 160-4.5 MCG INHALER INHALATION SCH (07:23)
[2019-03-20] MEDS: IPRATROPIUM-ALBUTEROL 3 ML NEB INHALATION SCH ×2 (07:23→11:03)
[2019-03-20] MEDS: MULTIVITAMINS, THERA 1 EACH TAB PO SCH (08:20)
[2019-03-20] MEDS: predniSONE 10 MG TAB PO SCH (08:20)
[2019-03-20] MEDS: metroNIDAZOLE 500 MG TAB PO SCH (08:20)
[2019-03-20] MEDS: SODIUM CHLORIDE 0.9% 1,000 ML IV SCH (08:20)
[2019-03-20] MEDS: SERTRALINE 100 MG TAB PO SCH (08:20)
[2019-03-20] MEDS: HEPARIN SODIUM,PORCINE 5,000 UNIT/ML 1 ML VIAL SQ SCH (08:20)
[2019-03-20] MEDS: HYDROcodone/APAP 10-325MG 1 EACH TAB PO PRN (08:20)
[2019-03-20] MEDS: PANTOPRAZOLE 40 MG TABLET PO SCH (08:20)
[2019-03-20 09:09] LABS: Anisocytosis Slight; Basophils # (A) 0.1 k/uL (0-0.2); Basophils % (A) 1 %; Eosinophils # (A) 0.5 k/uL (0-0.7); Eosinophils % (A) 4 %; HCT 40.9 % (39.0-53.0); HGB 12.6 gm/dL (13.0-17.5); Hypochromasia Slight; Lymphocytes # (A) 2.3 k/uL (1.0-4.8); Lymphocytes % (A) 15 %; MCH 28.9 pg (25.0-35.0); MCHC 30.7 g/dL (31.0-37.0); MCV 94.1 fL (80.0-100.0); Mean Platelet Volume 6.2; Monocytes # (A) 0.5 k/uL (0-1.0); Monocytes % (A) 3 %; Neutrophils # (A) 11.8 k/uL (1.3-7.7); Neutrophils % (A) 76 %; Platelet Count 955 k/uL (150-450); RBC 4.35 m/uL (4.30-5.90); RDW 16.4 % (11.5-15.5); WBC 15.5 k/uL (3.8-10.6)
[2019-03-20 09:15] LABS: Prothrombin Time 10.6 sec (9.0-12.0)
--- NOTE | 2019-03-20 14:12 | P.DS ---
Providers Date of admission: 03/14/19 10:10 Expected date of discharge: 03/20/19 Attending physician: Chucky Levi Consults: 03/14/19 10:09 Consult Physician Routine Consulting Provider: Annelise Kiran Consult Reason/Comments: Medical Management; Abdominal Abscess Do you want consulting provider notified?: Yes 03/14/19 11:17 Consult Physician Routine Consulting Provider: Gomez Meadows Consult Reason/Comments: Abdominal abscess Do you want consulting provider notified?: Yes Primary care physician: [facility] Course: 68-year-old male with history of exploratory laparotomy and repair of duodenal ulcer performed on 01/24/2019. Patient presented back to the hospital and was diagnosed with intraperitoneal abscess and abdominal wall abscess. He underwent I&D by Dr. Levi. He was followed by infectious disease during hospitalization. Patient WBC did trend up and repeat CT scan was obtained revealing 4 cm mass. Interventional radiology was consulted for possible drainage. Upon their review them collection was too small to drain. Patient's white count has decreased. He is afebrile. His pain is controlled. He is stable for discharge home today on IV antibiotics per ID recommendations. Please EMR further hospital course details. Discharge Diagnosis 1. Abdominal abscess 2. History of exploratory laparotomy with repair of duodenal ulcer, December 2018 Nurse practitioner note has been reviewed by physician. Signing provider agrees with the documented findings, assessment, and plan of care. Patient Condition at Discharge: Stable Plan - Discharge Summary New Discharge Prescriptions: New Multivitamins, Thera [Multivitamin (formulary)] 1 each PO DAILY tab DAPTOmycin [Cubicin Rf] 450 mg IV DAILY #14 vial metroNIDAZOLE [Flagyl] 500 mg PO TID #42 tab cefTRIAXone [Rocephin] 2,000 mg IVP Q24HR #14 vial Continue predniSONE 10 mg PO DAILY #30 tab Ipratropium-Albuterol Nebulize [Duoneb 0.5 mg-3 mg/3 ml Soln] 3 ml INHALATION RT-Q6H #120 ampul.neb Furosemide [Lasix] 40 mg PO DAILY #30 tab Pantoprazole [Protonix] 40 mg PO AC-BRKFST #30 tablet. Potassium Chloride [Klor-Con 20] 20 meq PO BID Budesonide/Formoterol Fumarate [Symbicort 160-4.5 Mcg Inhaler] 1 puff INHALATION RT-BID Sertraline [Zoloft] 100 mg PO DAILY Melatonin 10 mg PO HS tablet HYDROcodone/APAP 10-325MG [Lissie 10-325] 1 tab PO Q8H PRN #9 tab PRN Reason: Pain Acetaminophen Tab [Tylenol] 650 mg PO Q4H PRN PRN Reason: Pain Mirtazapine [Remeron] 7.5 mg PO HS@1800 Discharge Medication List predniSONE 10 mg PO DAILY #30 tab 02/05/18 [Rx] Furosemide [Lasix] 40 mg PO DAILY #30 tab 02/06/19 [Rx] Ipratropium-Albuterol Nebulize [Duoneb 0.5 mg-3 mg/3 ml Soln] 3 ml INHALATION RT-Q6H #120 ampul.neb 02/06/19 [Rx] Pantoprazole [Protonix] 40 mg PO AC-BRKFST #30 tablet. 02/06/19 [Rx] Budesonide/Formoterol Fumarate [Symbicort 160-4.5 Mcg Inhaler] 1 puff INHALATION RT-BID 02/09/19 [History] Potassium Chloride [Klor-Con 20] 20 meq PO BID 02/09/19 [History] Sertraline [Zoloft] 100 mg PO DAILY 02/09/19 [History] HYDROcodone/APAP 10-325MG [Lissie 10-325] 1 tab PO Q8H PRN #9 tab 02/12/19 [Rx] Melatonin 10 mg PO HS tablet 02/12/19 [Rx] Acetaminophen Tab [Tylenol] 650 mg PO Q4H PRN 03/14/19 [History] Mirtazapine [Remeron] 7.5 mg PO HS@1800 03/14/19 [History] Multivitamins, Thera [Multivitamin (formulary)] 1 each PO DAILY tab 03/17/19 [Rx] DAPTOmycin [Cubicin Rf] 450 mg IV DAILY #14 vial 03/20/19 [Rx] cefTRIAXone [Rocephin] 2,000 mg IVP Q24HR #14 vial 03/20/19 [Rx] metroNIDAZOLE [Flagyl] 500 mg PO TID #42 tab 03/20/19 [Rx] Follow up Appointment(s)/Referral(s): Chucky Levi MD [Medical Doctor] - 1 Week Razia Holbrook MD [Primary Care Provider] - 1 Week [facility] [NON-STAFF] - As Needed (Please go to office between 8:30-10:30am tomorrow for first administration.) Gomez Meadows MD [STAFF PHYSICIAN] - 1 Week [facility] Nurse, [NON-STAFF] - As Needed Activity/Diet/Wound Care/Special Instructions: Repeat CT in 2 weeks Aquacel silver packing of the wound q24hr follow up in wound care center [address] meadows call [phone] to make an appointment
--- NOTE | 2019-03-20 14:12 | PN ---
PROGRESS NOTE DATE OF SERVICE: 03/20/2019 REASON FOR FOLLOWUP: Intraabdominal wall and intraabdominal abscess. INTERVAL HISTORY: The patient is currently afebrile. The patient has been breathing comfortably. Denies having any chest pain. Occasionally cough. No nausea, no vomiting and no worsening abdominal pain. No diarrhea. PHYSICAL EXAMINATION: On examination, blood pressure 121/75, pulse of 98, temperature 98.7. He is 97% on 3 L nasal cannula. General description is an elderly male up in the chair in no distress. RESPIRATORY SYSTEM: Unlabored breathing, decreased breath sounds. No wheeze. HEART: S1, S2. Regular rate and rhythm. ABDOMEN: Soft, no tenderness. LABS: Hemoglobin is 12.6, white count 15.5. Radiology considered the abdominal abscess too small to be drained CT-guided. DIAGNOSTIC IMPRESSION AND PLAN: Patient with intraabdominal as well as abdominal wall abscess status post surgical drainage. Culture has been predominantly Citrobacter, Proteus and anaerobic gram negative bacilli. The patient did have elevated white count despite being on Rocephin, Flagyl with improvement in white count with the daptomycin that was added yesterday with possible component gram-positive skin rod with abdominal wall abscess. The patient to continue with daptomycin 450 mg daily along with Rocephin 2 grams daily and oral Flagyl for a total of 2 weeks with close outpatient followup. Local wound care with Aquacel Silver packing of the wound. Family at the bedside. Their questions and concerns were answered. MMODL / IJN: [id number] /
[2019-03-20 14:15] VITALS: BP 100/62; PULSE 101; RESP 17
--- NOTE | 2019-03-20 15:47 | P.PN ---
Subjective Progress Note Date: 03/20/19 This is 68 years old male with recent gastric ulcer rupture status post abdominal surgery who presented to the hospital with abdominal pain and found to have abdominal abscess that was drained by general surgery yesterday and medical consult was obtained for follow-up on his complicated past medical history. Patient currently is denying chest pain, shortness breath, nausea, vomiting or dizziness stated that his abdominal pain improved at least by 75% since yesterday. Patient denied tobacco alcohol or drug abuse stated that he's compliment with his medication and doctors follow-up and his at the bedside who is the primary care provider for the patient as patient has rheumatoid arthritis and suffered from debility at home 03/16: Patient complains of soreness in his abdomen. Dressing is in place with packing. He is currently on full liquid diet and tolerating this. He denies any nausea or vomiting. Patient has been afebrile, heart rate 92, blood pressure 109/70, pulse ox 93% on room air. Repeat lab work reveals WBC of 15.2, hemoglobin 10.2, platelet count 655. BUN 18 creatinine 0.49. Wound culture is gram-negative bacilli. Patient is followed by Dr. Masters maintained on Eraxis and meropenem. 03/17: Patient has been afebrile, heart rate 92, blood pressure 107/58, pulse ox 94% on 3 L nasal cannula. Repeat CBC WBC 16.7, hemoglobin 10.6, platelet count 607. Abdominal wound culture is positive for gram-negative bacilli and Proteus vulgaris. Patient is continued on Eraxis and meropenem. He was started on a regular diet last evening and tolerating. Dr. Sharma is now handling this case. Midline has been placed. 03/18: Patient remains afebrile, heart rate 88, blood pressure 122/74, pulse ox 95% on 3 L nasal cannula. WBC 15.4, hemoglobin 11.1, platelet count 729. Timo snider denies any new complaints. Wound culture is positive for Proteus vulgaris and Citrobacter braakii. Anaerobic culture finalized with 3 gram-negative bacilli organisms. Patient is tolerating diet. He denies any nausea or vomiting. He has had bowel movement. Anticipate possible discharge in the next 24 hours. 03/19: Patient denies any new complaints. Breathing status is stable, he denies any nausea or vomiting. Repeat lab work reveals increased white count of 18.2, hemoglobin 11.6, platelet count 850. Awaiting decision from Dr. Sharma regarding antibiotics the patient could be discharged home today. 03/20: Yesterday, patient underwent CAT scan of the abdomen and pelvis which revealed previous abscess appears significantly improved. A minimal amount of air may be within the. Umbilical region from the patient's abscess. An additional collection adjacent to but not drinking associated with the transverse colon measures 4 cm in diameter and could be some residual abscess. This appears stable. Open wound along the anterior abdominal wall at the periumbilical region. Patient remains afebrile, blood pressure 121/75, heart rate 98, pulse ox 97% on 3 L nasal cannula. WBC 15.5, Hemoglobin 12.6, Platelet Count 955, INR 1.0. Patient Is Currently on Rocephin, Daptomycin, Flagyl per Dr. Sharma. Dr. Sharam Has Ordered a CT-Guided Abscess Drainage but found abscess was too small to drain. Patient has been cleared for discharge is going home today in stable condition. Dr. Ramsey is addressed home antibiotics which will be daptomycin, ceftriaxone and Flagyl. Objective - Vital Signs Vital signs: Vital Signs Temp 98.7 F 03/20/19 07:00 Pulse 98 03/20/19 07:00 Resp 15 03/20/19 07:00 BP 121/75 03/20/19 07:00 Pulse Ox 97 03/20/19 07:00 Intake & Output 03/19/19 03/20/19 03/20/19 18:59 06:59 18:59 Intake Total 1635 740 Balance 1635 740 Weight 72.575 kg Intake: Intake, IV Titration 375 200 Amount DAPTOmycin 450 mg In 50 Sodium Chloride 0.9% 50 ml @ 100 mls/hr IVPB Q24HR@1800 [facility] Rx#: [id number] Sodium Chloride 0.9% 1, 375 150 000 ml @ 75 mls/hr IV . [id number] [facility] Rx#:[id number] Oral 1260 540 Other: Voiding Method Toilet Bedside Commode Urinal - Exam Review Of Systems: Constitutional: No fever, no chills, no night sweats. EENT: No headache. No nasal drainage or congestion. No epistaxis. No sore throat. Lungs: No shortness of breath, cough, no sputum production. No wheezing. Cardiovascular: No chest pain, no lower extremity edema. No palpitations. No paroxysmal nocturnal dyspnea. No lightheadedness or dizziness. Abdominal: denies abdominal pain. Denies nausea, vomiting. No diarrhea. Genitourinary: No dysuria, increased frequency, urgency. No urinary retention. Musculoskeletal: No myalgias. No muscle weakness, no gait dysfunction, no frequent falls. No back pain. No neck pain. Integumentary: Reports wounds, no lesions. No rash or pruritus. No unusual bruising. No change in hair or nails. Neurologic: No aphasia. No facial droop. No change in mentation. No head injury. No headache. No paralysis. No paresthesia. Psychiatric: No depression. No anxiety. No mood swings. Endocrine: No abnormal blood sugars. No weight change. No excessive sweating or thirst. No cold intolerance. Gen: This is a 68-year-old male. Patient is resting in bed appears to be comfortable. is at bedside. No acute distress. HEENT: Head is atraumatic, normocephalic. Pupils equal, round. Sclerae is anicteric. NECK: Supple. No JVD. No lymphadenopathy. No thyromegaly. LUNGS: Clear to auscultation. No wheezes or rhonchi. No intercostal retractions. HEART: Regular rate and rhythm. No murmur. ABDOMEN: Soft. Bowel sounds are present. No masses. No tenderness. Binder and Dressing in place to the mid abdomen. EXTREMITIES: No pedal edema. No calf tenderness. NEUROLOGICAL: Patient is awake, alert and oriented x3. Cranial nerves 2 through 12 are grossly intact. - Labs CBC & Chem 7: 03/20/19 08:17 03/16/19 06:55 Labs: Abnormal Lab Results - Last 24 Hours (Table) 03/20/19 Range/Units 08:17 WBC 15.5 H (3.8-10.6) k/uL Hgb 12.6 L (13.0-17.5) gm/dL MCHC 30.7 L (31.0-37.0) g/dL RDW 16.4 H (11.5-15.5) % Plt Count 955 H (150-450) k/uL Neutrophils # 11.8 H (1.3-7.7) k/uL Microbiology - Last 24 Hours (Table) 03/14/19 07:44 Blood Culture - Preliminary Blood No Growth after 120 hours Assessment and Plan Plan: 1. Status post incision and drainage of abdominal wall abscess and intraperitoneal abscess. 2. Recent exploratory laparotomy with repair of perforated duodenal ulcer and incarcerated umbilical hernia 01/22/2019. 3. Severe leukocytosis. 4. Abdominal pain. 5. Rheumatoid arthritis with immune suppressant status due to daily use of steroids. 6. COPD. 7. Chronic respiratory failure with hypoxia home oxygen dependent. 8. Debility and deconditioning 9. Hypertension. 10. Insomnia. 11. Electrolyte imbalance with hyponatremia. 12. Hyperlipidemia. 13. Generalized osteoarthritis. 14. Obstructive sleep apnea. Patient is tolerating regular diet. Antibiotics currently in the form of daptomycin, Rocephin and Flagyl. A CT-guided abscess drainage ordered for today but abscess was too small to drain. Arrangements have been made to go home today. Impression and plan of care have been directed as dictated by the signing physician. [place]ia Salinas nurse practitioner acting as scribe for signing physician.
== END 2019-03-20 15:20 | disposition home or self-care (01) | DRG 357 ==
LOC: EC 07:05 → 4SSUR 10:10
PROVIDERS: ADMIT Surgery; ATTEND Surgery
PROC: 0W9G0ZZ Drainage of Peritoneal Cavity, Open Approach (ICD-10-PCS; principal; 2019-03-14 13:30)
DX: K65.1 Peritoneal abscess (principal); L02.211 Cutaneous abscess of abdominal wall; E87.1 Hypo-osmolality and hyponatremia; J96.11 Chronic respiratory failure with hypoxia; J44.9 Chronic obstructive pulmonary disease, unspecified; G47.33 Obstructive sleep apnea (adult) (pediatric); E78.5 Hyperlipidemia, unspecified; F41.9 Anxiety disorder, unspecified; M15.9 Polyosteoarthritis, unspecified; F32.9 Major depressive disorder, single episode, unspecified; R53.81 Other malaise; M06.9 Rheumatoid arthritis, unspecified; G47.00 Insomnia, unspecified; B96.4 Proteus (mirabilis) (morganii) as the cause of diseases classified elsewhere; B96.89 Other specified bacterial agents as the cause of diseases classified elsewhere; Z96.1 Presence of intraocular lens; Z79.51 Long term (current) use of inhaled steroids; Z87.01 Personal history of pneumonia (recurrent); Z99.81 Dependence on supplemental oxygen; Z98.42 Cataract extraction status, left eye; Z98.41 Cataract extraction status, right eye; Z87.11 Personal history of peptic ulcer disease; Z87.891 Personal history of nicotine dependence; Z88.1 Allergy status to other antibiotic agents; Z79.52 Long term (current) use of systemic steroids; Z79.899 Other long term (current) drug therapy; Z80.6 Family history of leukemia; Z81.8 Family history of other mental and behavioral disorders; Z80.0 Family history of malignant neoplasm of digestive organs
CPT/HCPCS: 36410; 36415; 71046; 74176; 74177; 76937; 80048; 80053; 81003; 82150; 83605; 83690; 85025; 85610; 87040; 87070; 87075; 87077; 87186; 87205; 94640; 94760; 96361; 96365; 96375; 99285

== ENCOUNTER → 2019-04-07 | Outpatient (CLI) | payer MEDICARE, OTHER ==
--- NOTE | 2019-04-07 17:17 | CT ---
EXAMINATION TYPE: CT abdomen wo con DATE OF EXAM: 04/07/2019 COMPARISON: 03/19/2019 INDICATION: Abdominal abscess DLP: 213.10 mGycm, Automated exposure control for dose reduction was used. CONTRAST: 0 mL of Isovue 300. Study performed with Oral Contrast TECHNIQUE: Axial images were obtained from above the diaphragm to the iliac crests in the axial plane at 5 mm thick sections. Reconstructed images are reviewed on the computer in the coronal plane. FINDINGS: Limited CT sections are obtained the lung bases. Pulmonary fibrosis and emphysematous changes are pr esent at the lung bases.. CT ABDOMEN: Liver: Normal Spleen: Scattered small calcified granuloma within the spleen. Pancreas: Normal Adrenal glands: The adrenal glands are normal. Gallbladder: Normal Kidneys: No masses are evident. No hydronephrosis is present. May be a peripelvic cyst at the infer ior pole right kidney present previously. No obstructing renal stones are identified. Delayed images were obtained through the kidneys, which remain unremarkable. Aorta: Vascular calcification is within the aorta. Maximum AP diameter is 2.5 cm. Inferior vena cava: Normal. Within the midabdomen with the prior abscess location there is some residual soft tissue density with fairly smooth margins currently measuring 3.3 x 3.2 cm which is smaller than the 3.4 x 4.1 cm prior. No free air is evident. No central fluid is evident. IMPRESSIONS: 1. Resolving intra-abdominal abscess. Residual phlegmon may remain discussed above.
== END | disposition home or self-care (01) ==
LOC: RADCTMAIN 10:57
PROVIDERS: ATTEND Surgery
DX: K65.1 Peritoneal abscess (principal); L02.211 Cutaneous abscess of abdominal wall
CPT/HCPCS: 74150

== ENCOUNTER 2020-01-12 11:40 | Inpatient (IN) | payer MEDICARE, OTHER ==
[2020-01-12] MEDS ORDERED: ALBUTEROL HFA INHALER INHALATION STA (12:09)
[2020-01-12] MEDS ORDERED: methylPREDNISolone SOD SUCCI 125 MG/2 ML VIAL IV STA (12:09)
--- NOTE | 2020-01-12 12:14 | ED ---
General Adult HPI - General Chief complaint: Shortness of Breath Stated complaint: SOB, abd pain Time Seen by Provider: 01/12/20 11:45 Source: patient, RN notes reviewed, old records reviewed Mode of arrival: wheelchair Limitations: no limitations - History of Present Illness Initial comments: This is a 6-year-old male who presents emergency department with past medical history significant for COPD. Patient states he has been having a hard time breathing for 2 weeks and coughing up quite a bit for 2 weeks. Patient states she's been on steroids and antibiotics and they've not helped he continues to cough constantly. Patient's primary doctor Dr. Holbrook wanted the patient to be brought in and be evaluated. Patient denies any fever or chills. Patient states she does have chest and some abdominal pain but it's worse with coughing he believes secondary to all the coughing he's been doing. Patient denies any lightheadedness or dizziness. Patient denies any vomiting or diarrhea. - Related Data Home Medications Medication Instructions Recorded Confirmed Budesonide/Formoterol Fumarate 1 puff INHALATION RT-BID 02/09/19 03/14/19 [Symbicort 160-4.5 Mcg Inhaler] Potassium Chloride [Klor-Con 20] 20 meq PO BID 02/09/19 03/14/19 Sertraline [Zoloft] 100 mg PO DAILY 02/09/19 03/14/19 Acetaminophen Tab [Tylenol] 650 mg PO Q4H PRN 03/14/19 03/14/19 Mirtazapine [Remeron] 7.5 mg PO HS@1800 03/14/19 03/14/19 Previous Rx's Medication Instructions Recorded predniSONE 10 mg PO DAILY #30 tab 02/05/18 Furosemide [Lasix] 40 mg PO DAILY #30 tab 02/06/19 Ipratropium-Albuterol Nebulize 3 ml INHALATION RT-Q6H #120 02/06/19 [Duoneb 0.5 mg-3 mg/3 ml Soln] ampul.neb Pantoprazole [Protonix] 40 mg PO AC-BRKFST #30 tablet. 02/06/19 HYDROcodone/APAP 10-325MG [[place] 1 tab PO Q8H PRN #9 tab 02/12/19 10-325] Melatonin 10 mg PO HS tablet 02/12/19 Multivitamins, Thera [Multivitamin 1 each PO DAILY tab 03/17/19 (formulary)] DAPTOmycin [Cubicin Rf] 450 mg IV DAILY #14 vial 03/20/19 cefTRIAXone [Rocephin] 2,000 mg IVP Q24HR #14 vial 03/20/19 metroNIDAZOLE [Flagyl] 500 mg PO TID #42 tab 03/20/19 Allergies Allergy/AdvReac Type Severity Reaction Status Date / Time amoxicillin AdvReac Nausea & Verified 01/12/20 11:50 Vomiting Review of Systems ROS Statement: Those systems with pertinent positive or pertinent negative responses have been documented in the HPI. ROS Other: All systems not noted in ROS Statement are negative. Past Medical History Past Medical History: COPD, Hyperlipidemia, Osteoarthritis (OA), Pneumonia, Rheumatoid Arthritis (RA), Sleep Apnea/CPAP/BIPAP Additional Past Medical History / Comment(s): Pneumonia with sepsis twice-10/2017 and in 2016. 3.5L home o2, PATTY with no device (cannot tolerate), recently injured low back-saw Dr. Dye. Rheumatoid arthritis in bilateral hips,knees hands and back. History of Any Multi-Drug Resistant Organisms: None Reported Past Surgical History: Orthopedic Surgery Additional Past Surgical History / Comment(s): bilateral cataract removals with lens implants, left knee arthroscopy, colonoscopy, GI perforated ulcer. Past Anesthesia/Blood Transfusion Reactions: No Reported Reaction Past Psychological History: Anxiety, Depression Smoking Status: Former smoker Past Alcohol Use History: Daily Past Drug Use History: None Reported - Past Family History Father Family Medical History: Cancer Additional Family Medical History / Comment(s): Father of leukemia. Mother Family Medical History: Cancer, CVA/TIA, Dementia, Diabetes Mellitus Additional Family Medical History / Comment(s): Mother is 88yrs old with history of dementia and colon cancer. Sister(s) Additional Family Medical History / Comment(s): Patient has 1 full sister with history of lung cancer. Patient has one half-sister with adrenal problems. Patient does not have any brothers. Patient 3 sons with no major medical problems. General Exam - General Exam Comments Initial Comments: GENERAL: Patient is well-developed and well-nourished. Patient is nontoxic and well- hydrated and is in mild distress. ENT: Neck is soft and supple. No significant lymphadenopathy is noted. Oropharynx is clear. Moist mucous membranes. Neck has full range of motion without eliciting any pain. EYES: The sclera were anicteric and conjunctiva were pink and moist. Extraocular movements were intact and pupils were equal round and reactive to light. Eyelids were unremarkable. PULMONARY: Patient has diminished breath sounds and has expiratory wheezing. CARDIOVASCULAR: Patient is tachycardic at 130 beats a minute ABDOMEN: Soft and nontender with normal bowel sounds. SKIN: Skin is clear with no lesions or rashes and otherwise unremarkable. NEUROLOGIC: Patient is alert and oriented x3. Cranial nerves II through XII are grossly intact. Motor and sensory are also intact. Normal speech, volume and content. Symmetrical smile. MUSCULOSKELETAL: Normal extremities with adequate strength and full range of motion. Patient has no edema and no calf tenderness. LYMPHATICS: No significant lymphadenopathy is noted PSYCHIATRIC: Normal psychiatric evaluation. Limitations: no limitations Course Vital Signs 01/12/20 11:42 Temperature 98.9 F Pulse Rate 128 H Respiratory 24 Rate Blood Pressure 139/75 O2 Sat by Pulse 87 L Oximetry Medical Decision Making - Medical Decision Making EKG shows sinus tachycardia with occasional PVC at 120 beats a minute [place] inter tracey 220 QRS is 84 QT interval 322 QTC is 470. X-ray shows no signs of pneumonia. Probable fibrosis is stable from prior exam. I give the patient breathing treatments steroids he is feeling slightly better but still not back to his baseline. I spoke with Dr. Sotomayor she agreed to admit the patient admitted the patient I continued breathing treatments as well as steroids on the floor. Patient co ntinued to pulse ox in the 80s. - Lab Data Result diagrams: 01/12/20 12:40 01/12/20 12:40 Lab Results 01/12/20 01/12/20 01/12/20 Range/Units 12:40 12:40 12:40 WBC 9.0 (3.8-10.6) k/uL RBC 4.30 (4.30-5.90) m/uL Hgb 13.7 (13.0-17.5) gm/dL Hct 41.4 (39.0-53.0) % MCV 96.2 (80.0-100.0) fL MCH 31.8 (25.0-35.0) pg MCHC 33.0 (31.0-37.0) g/dL RDW 15.1 (11.5-15.5) % Plt Count 435 (150-450) k/uL Neutrophils % 92 % Lymphocytes % 4 % Monocytes % 3 % Eosinophils % 0 % Basophils % 0 % Neutrophils # 8.3 H (1.3-7.7) k/uL Lymphocytes # 0.4 L (1.0-4.8) k/uL Monocytes # 0.3 (0-1.0) k/uL Eosinophils # 0.0 (0-0.7) k/uL Basophils # 0.0 (0-0.2) k/uL PT 10.1 (9.0-12.0) sec INR 1.0 (<1.2) APTT 23.4 (22.0-30.0) sec D-Dimer 0.51 (<0.60) mg/L FEU Sodium 129 L (137-145) mmol/L Potassium 5.2 H (3.5-5.1) mmol/L Chloride 91 L (98-107) mmol/L Carbon Dioxide 30 (22-30) mmol/L Anion Gap 8 mmol/L BUN 14 (9-20) mg/dL Creatinine 0.54 L (0.66-1.25) mg/dL Est GFR (CKD-EPI)AfAm >90 (>60 ml/min/1.73 sqM) Est GFR (CKD-EPI)NonAf >90 (>60 ml/min/1.73 sqM) Glucose 149 H (74-99) mg/dL Plasma Lactic Acid Steven (0.7-2.0) mmol/L Calcium 9.1 (8.4-10.2) mg/dL Magnesium 2.1 (1.6-2.3) mg/dL Total Bilirubin 0.6 (0.2-1.3) mg/dL AST 22 (17-59) U/L ALT 15 (4-49) U/L Alkaline Phosphatase 89 (38-126) U/L Lactate Dehydrogenase 588 (313-618) U/L C-Reactive Protein 71.1 H (<10.0) mg/L Total Protein 6.9 (6.3-8.2) g/dL Albumin 3.9 (3.5-5.0) g/dL Influenza Type A RNA (Not Detectd) Influenza Type B (PCR) (Not Detectd) 01/12/20 01/12/20 Range/Units 12:40 12:40 WBC (3.8-10.6) k/uL RBC (4.30-5.90) m/uL Hgb (13.0-17.5) gm/dL Hct (39.0-53.0) % MCV (80.0-100.0) fL MCH (25.0-35.0) pg MCHC (31.0-37.0) g/dL RDW (11.5-15.5) % Plt Count (150-450) k/uL Neutrophils % % Lymphocytes % % Monocytes % % Eosinophils % % Basophils % % Neutrophils # (1.3-7.7) k/uL Lymphocytes # (1.0-4.8) k/uL Monocytes # (0-1.0) k/uL Eosinophils # (0-0.7) k/uL Basophils # (0-0.2) k/uL PT (9.0-12.0) sec INR (<1.2) APTT (22.0-30.0) sec D-Dimer (<0.60) mg/L FEU Sodium (137-145) mmol/L Potassium (3.5-5.1) mmol/L Chloride (98-107) mmol/L Carbon Dioxide (22-30) mmol/L Anion Gap mmol/L BUN (9-20) mg/dL Creatinine (0.66-1.25) mg/dL Est GFR (CKD-EPI)AfAm (>60 ml/min/1.73 sqM) Est GFR (CKD-EPI)NonAf (>60 ml/min/1.73 sqM) Glucose (74-99) mg/dL Plasma Lactic Acid Steven 1.3 (0.7-2.0) mmol/L Calcium (8.4-10.2) mg/dL Magnesium (1.6-2.3) mg/dL Total Bilirubin (0.2-1.3) mg/dL AST (17-59) U/L ALT (4-49) U/L Alkaline Phosphatase (38-126) U/L Lactate Dehydrogenase (313-618) U/L C-Reactive Protein (<10.0) mg/L Total Protein (6.3-8.2) g/dL Albumin (3.5-5.0) g/dL Influenza Type A RNA Not Detected (Not Detectd) Influenza Type B (PCR) Not Detected (Not Detectd) Critical Care Time Critical Care Time: Yes Total Critical Care Time: 35 Disposition Clinical Impression: Acute exacerbation of chronic obstructive pulmonary disease Disposition: ADMITTED IP TO THIS HOSP Referrals: Razia Holbrook MD [Primary Care Provider] - 1-2 days Time of Disposition: 14:13
[2020-01-12 13:13] LABS: Basophils % (A) 0 %; Eosinophils % (A) 0 %; HCT 41.4 % (39.0-53.0); HGB 13.7 gm/dL (13.0-17.5); Lymphocytes # (A) 0.4 k/uL (1.0-4.8); Lymphocytes % (A) 4 %; MCH 31.8 pg (25.0-35.0); MCV 96.2 fL (80.0-100.0); Mean Platelet Volume 7.1; Monocytes # (A) 0.3 k/uL (0-1.0); Monocytes % (A) 3 %; Neutrophils # (A) 8.3 k/uL (1.3-7.7); Neutrophils % (A) 92 %; Platelet Count 435 k/uL (150-450); RDW 15.1 % (11.5-15.5)
[2020-01-12] MEDS ORDERED: KETOROLAC 30 MG/ML 1 ML VIAL IVP STA (13:17)
[2020-01-12 13:24] LABS: ALT 15 U/L (4-49); AST 22 U/L (17-59); African American GFR (CKD) >90 (>60 ml/min/1.73 sqM); Albumin 3.9 g/dL (3.5-5.0); Alkaline Phosphatase 89 U/L (38-126); Anion Gap 8 mmol/L; Blood Urea Nitrogen 14 mg/dL (9-20); C Reactive Protein 71.1 mg/L (<10.0); Calcium 9.1 mg/dL (8.4-10.2); Carbon Dioxide 30 mmol/L (22-30); Chloride 91 mmol/L (98-107); Glucose 149 mg/dL (74-99); LDH 588 U/L (313-618); Magnesium 2.1 mg/dL (1.6-2.3); Non-African American GFR(CKD) >90 (>60 ml/min/1.73 sqM); Potassium 5.2 mmol/L (3.5-5.1); Sodium 129 mmol/L (137-145); Total Bilirubin 0.6 mg/dL (0.2-1.3); Total Protein 6.9 g/dL (6.3-8.2)
--- NOTE | 2020-01-12 13:30 | XR ---
EXAMINATION TYPE: XR chest 1V portable DATE OF EXAM: 01/12/2020 COMPARISON: 03/14/2019 HISTORY: Shortness of breath TECHNIQUE: Single frontal view of the chest is obtained. FINDINGS: Coarsened interstitium similar in appearance the prior exam. Heart size normal with no pne umothorax. Biapical pleural thickening. No sizable pleural effusion. Minimal blunting the costophreni c angle an azygos fissure incidentally noted. These findings are stable. Pleural-based densities left upper lobe stable could be related to pleural plaque or previous rib trauma. IMPRESSION: 1. COPD with coarsened interstitium stable from prior exam correlate for chronic interstitial pulmona ry fibrosis. No acute infiltrate. Underlying interstitial or viral pneumonitis not excluded.
[2020-01-12 13:37] LABS: D-Dimer 0.51 mg/L FEU (<0.60); Partial Thromboplastin Time 23.4 sec (22.0-30.0); Prothrombin Time 10.1 sec (9.0-12.0)
[2020-01-12] MEDS ORDERED: IPRATROPIUM-ALBUTEROL 3 ML NEB INHALATION PRN (14:14)
[2020-01-12 16:09] LABS: Glucose,Whole Blood 123 mg/dL (75-99)
[2020-01-12] MEDS ORDERED: ALBUTEROL NEBULIZED 2.5 MG/3 ML INHALATION PRN (18:22)
[2020-01-12 18:23] LABS: Ferritin 329.8 ng/mL (22.0-322.0)
[2020-01-12] MEDS: HYDROcodone/APAP 10-325MG 1 EACH TAB PO PRN (18:43)
[2020-01-12] MEDS: methylPREDNISolone SOD SUCCI 125 MG/2 ML VIAL IV SCH ×2 (18:43→23:33)
[2020-01-12] MEDS: IPRATROPIUM-ALBUTEROL 3 ML NEB INHALATION SCH (20:03)
[2020-01-12] MEDS: BUDESONIDE 0.5 MG/2 ML NEBU INHALATION SCH (20:03)
[2020-01-12 20:56] LABS: Glucose,Whole Blood 162 mg/dL (75-99)
[2020-01-12] MEDS: INSULIN ASPART (NovoLOG) 100 UNIT/ML VIAL SQ SCH (22:19)
[2020-01-12] MEDS: MELATONIN 5 MG TABLET PO PRN (23:32)
[2020-01-12] MEDS: BENZONATATE 100 MG CAP PO SCH (23:32)
[2020-01-12] MEDS: ALPRAZolam 0.25 MG TAB PO PRN (23:32)
[2020-01-13] MEDS: HYDROcodone/APAP 10-325MG 1 EACH TAB PO PRN ×3 (05:18→23:58)
[2020-01-13] MEDS: PANTOPRAZOLE 40 MG TABLET PO SCH (05:19)
[2020-01-13] MEDS: methylPREDNISolone SOD SUCCI 125 MG/2 ML VIAL IV SCH ×2 (05:19→12:07)
[2020-01-13 06:25] LABS: Glucose,Whole Blood 171 mg/dL (75-99)
[2020-01-13] MEDS: INSULIN ASPART (NovoLOG) 100 UNIT/ML VIAL SQ SCH ×4 (06:49→21:17)
[2020-01-13] MEDS: IPRATROPIUM-ALBUTEROL 3 ML NEB INHALATION SCH ×5 (08:07→20:08)
[2020-01-13] MEDS: BUDESONIDE 0.5 MG/2 ML NEBU INHALATION SCH (08:07)
[2020-01-13] MEDS: CHOLECALCIFEROL 1,000 UNIT TAB PO SCH (08:57)
[2020-01-13] MEDS: BENZONATATE 100 MG CAP PO SCH ×3 (08:57→21:21)
[2020-01-13] MEDS: MULTIVITAMINS, THERA 1 EACH TAB PO SCH (08:57)
[2020-01-13] MEDS: SERTRALINE 50 MG TAB PO SCH (08:58)
[2020-01-13] MEDS ORDERED: predniSONE 10 MG TAB PO SCH (09:00)
[2020-01-13] MEDS: METOPROLOL SUCCINATE (ER) 25 MG TAB.ER.24H PO SCH (09:01)
--- NOTE | 2020-01-13 10:34 | CT ---
EXAMINATION TYPE: CT chest w con DATE OF EXAM: 01/13/2020 COMPARISON: 02/04/2018 HISTORY: hypoxia CT DLP: 360.1 mGycm Automated exposure control for dose reduction was used. CONTRAST: CT scan of the chest is performed with IV Contrast, patient injected with 100 mL of Isovue 300. FINDINGS: LUNGS: Moderately severe emphysematous changes are redemonstrated. There is evidence of scattered sub pleural fibrosis. No evidence for distinct nodule or mass. Incidental azygos lobe and fissure. Calcif ied granulomas right lower lobe. Mild lower lobe bronchiectasis. MEDIASTINUM: There are no greater than 1 cm hilar or mediastinal lymph nodes. No pericardial effusi on is seen. Thoracic aorta is of normal caliber. The heart is not enlarged. UPPER ABDOMEN: Right renal cyst and left adrenal nodule unchanged from prior studies. Midline ventral hernia partially imaged. OTHER: No additional significant abnormality is seen. IMPRESSION: 1. Stable features of pulmonary fibrosis and underlying emphysematous change.
[2020-01-13] MEDS: AZITHROMYCIN 500 MG TAB PO SCH (10:58)
--- NOTE | 2020-01-13 11:00 | P.HPIM ---
History of Present Illness H&P Date: 01/13/20 This is a 69-year-old male patient of Dr. Holbrook and Dr. Mireles with past medical history of advanced steroid-dependent COPD, hyperlipidemia, rheumatoid arthritis, obstructive sleep apnea unable to tolerate CPAP, chronic hypoxic respiratory failure on home O2 at 200 half3 L nasal cannula, generalized osteoarthritis, chronic back pain pseudomonas in sputum on previous admission secondary to colonization or pseudomonal pneumonia. Known FVC of 72% and FEV1 of 46%. History of perforated duodenal ulcer status post exploratory laparotomy with repair of perforated duodenal ulcer and repair of incarcerated umbilical hernia. Patient states that he has had difficulty with breathing for the past 2 weeks. He has been seeing Dr. Cohen and has been on a tapering steroid dose as well as doxycycline without any improvement. He is also using nebulizers inhalers at home. Patient was advised by Dr. Holbrook to come in the hospital for further evaluation and treatment. Patient came into [facility] emergency center for evaluation. Patient was afebrile, heart rate 128, blood pressure 139/75, pulse ox 87%. EKG was a sinus tachycardia with occasional PVC. Chest x-ray revealed COPD with coarsened interstitium stable from prior exam correlate for chronic interstitial pulmonary fibrosis. No acute infiltrate. Underlying interstitial or viral pneumonitis not excluded. CBC was unremarkable, sodium 129, potassium 5.2, chloride 91, CO2 30, BUN 14 and creatinine 0.54, blood sugar 149. Pro- calcitonin 0.09, pro BNP 405. Patient does not have history of diabetes. Liver function tests within normal limits, C reactive protein 71.1, d-dimer 0.51. Lactic acid 1.3. Influenza testing negative. Rotavirus testing in progress. CT of the chest is stable pulmonary fibrosis and underlying emphysematous change. Patient was started on IV steroids, nebulizer treatments, admitted to the cardiac stepdown unit and consult with Dr. Mireles. Review of Systems Constitutional: Reports fatigue, Denies anorexia, Denies chills, Denies fever, Denies poor appetite, Denies weight gain Eyes: denies blurred vision, denies pain Ears, nose, mouth and throat: Denies dysphagia, Denies headache, Denies nasal congestion, Denies nasal discharge, Denies sore throat, Denies vertigo Cardiovascular: Reports shortness of breath, Denies chest pain, Denies edema, Denies leg edema, Denies lightheadedness, Denies syncope Respiratory: Reports cough, Reports cough with sputum, Reports dyspnea, Reports home oxygen, Reports wheezing, Denies excessive sputum, Denies hemoptysis Gastrointestinal: Denies abdominal pain, Denies diarrhea, Denies nausea, Denies vomiting Genitourinary: Denies dysuria, Denies urinary frequency, Denies urinary retention Musculoskeletal: Denies frequent falls, Denies gait dysfunction, Denies muscle weakness, Denies myalgias Integumentary: Denies pruritus, Denies rash, Denies wounds Neurological: Denies change in mentation, Denies change in speech, Denies numbness, Denies seizures, Denies weakness Psychiatric: Denies anxiety, Denies depression, Denies hopelessness Endocrine: Denies fatigue, Denies weight change Past Medical History Past Medical History: COPD, Hyperlipidemia, Osteoarthritis (OA), Pneumonia, Rheumatoid Arthritis (RA), Sleep Apnea/CPAP/BIPAP Additional Past Medical History / Comment(s): COPD, pulmonary fibrosis, chronic hypoxic respiratory failure, previous hospitalization for pneumonia and sepsis back in 2018, previous history of pneumoperitoneum related to a perforated duodenal ulcer, repair of an umbilical hernia, obstructive sleep apnea nontolerant to CPAP therapy, chronic back pain, rheumatoid arthritis, degenerative arthritis involving the hips and the knees and hands and the back, hyperlipidemia History of Any Multi-Drug Resistant Organisms: None Reported Past Surgical History: Orthopedic Surgery Additional Past Surgical History / Comment(s): bilateral cataract removals with lens implants, left knee arthroscopy, colonoscopy, repair of a perforated duodenal ulcer and repair of an incarcerated umbilical hernia Past Anesthesia/Blood Transfusion Reactions: No Reported Reaction Past Psychological History: Anxiety, Depression Additional Psychological History / Comment(s): Pt resides with his spouse of 38 yrs. He has home oxygen which he wears prn at 3.5L/NC. He has a nebulizer. Smoking Status: Former smoker Past Alcohol Use History: Daily Additional Past Alcohol Use History / Comment(s): Patient smoked 2 packs per day for 40+ years. He quit 6 years ago. He denies any illicit drug use or marijuana use. He drinks 2 beers per day but none since previous admission and December. 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 Mother Family Medical History: Cancer, CVA/TIA, Dementia, Diabetes Mellitus Additional Family Medical History / Comment(s): Mother is 88yrs old with history of dementia and colon cancer. Sister(s) Additional Family Medical History / Comment(s): Patient has 1 full sister with history of lung cancer. Patient has one half-sister with adrenal problems. Patient does not have any brothers. Patient 3 sons with no major medical problems. Medications and Allergies Home Medications Medication Instructions Recorded Confirmed Type predniSONE 10 mg PO DAILY #30 tab 02/05/18 01/12/20 Rx Albuterol Inhaler [Ventolin Hfa 2 puff INHALATION RT-QID PRN 01/12/20 01/12/20 H istory Inhaler] Alendronate Sodium [Fosamax] 70 mg PO MI 01/12/20 01/12/20 History Budesonide [Pulmicort] 0.5 mg INHALATION RT-BID 01/12/20 01/12/20 History Cholecalciferol [Vitamin D3 (25 1,000 unit PO DAILY 01/12/20 01/12/20 History Mcg = 1000 Iu)] Doxycycline Hyclate 100 mg PO BID 01/12/20 01/12/20 History HYDROcodone/APAP 10-325MG [[place] 1 tab PO BID PRN 01/12/20 01/12/20 History 10-325] Ipratropium-Albuterol Nebulize 3 ml INHALATION RT-BID 01/12/20 01/12/20 History [Duoneb 0.5 mg-3 mg/3 ml Soln] Metoprolol Succinate [Toprol XL] 25 mg PO DAILY 01/12/20 01/12/20 History Multivitamins, Thera [Multivitamin 1 tab PO DAILY 01/12/20 01/12/20 History (formulary)] Omeprazole [PriLOSEC] 40 mg PO DAILY 01/12/20 01/12/20 History Sertraline [Zoloft] 50 mg PO DAILY 01/12/20 01/12/20 History Allergies Allergy/AdvReac Type Severity Reaction Status Date / Time amoxicillin AdvReac Nausea & Verified 01/12/20 18:00 Vomiting Physical Exam Vitals: Vital Signs Temp Pulse Pulse Resp BP BP Pulse Ox 01/13/20 08:25 100 01/13/20 08:07 100 01/13/20 08:00 98.1 F 100 18 127/69 93 L 01/13/20 05:43 94 L 01/13/20 05:30 94 L 01/13/20 05:15 97.6 F 102 H 18 127/75 84 L 01/13/20 00:00 98.7 F 111 H 18 119/74 92 L 01/12/20 20:18 104 H 01/12/20 20:04 100 01/12/20 20:00 97.9 F 107 H 18 131/69 92 L 01/12/20 16:00 97.2 F L 106 H 16 115/77 93 L 01/12/20 14:58 97.8 F 90 22 119/80 96 01/12/20 14:00 117 H 23 128/83 94 L 01/12/20 13:30 115 H 19 122/79 94 L 01/12/20 13:00 110 H 23 119/71 96 01/12/20 11:42 98.9 F 128 H 24 139/75 87 L Intake and Output 01/12/20 01/13/20 01/13/20 22:59 06:59 14:59 Intake Total 560 Output Total 200 300 Balance 360 -300 Intake: Oral 560 Output: Urine 200 300 Other: Voiding Method Urinal Urinal Urinal Weight 70.307 kg 64 kg Gen: This is a 69-year-old male. Patient is resting in bed appears to be comfortable and in no acute distress. HEENT: Head is atraumatic, normocephalic. Pupils equal, round. Sclerae is anicteric. NECK: Supple. No JVD. No lymphadenopathy. No thyromegaly. LUNGS: Coarse crackles bilaterally. Mild expiratory wheezing No intercostal retractions. HEART: Regular rate and rhythm. No murmur. Sinus tachycardia. ABDOMEN: Soft. Bowel sounds are present. No masses. No tenderness. EXTREMITIES: No pedal edema. No calf tenderness. NEUROLOGICAL: Patient is awake, alert and oriented x3. Cranial nerves 2 through 12 are grossly intact. Results CBC & Chem 7: 01/12/20 12:40 01/14/20 06:51 Labs: Abnormal Lab Results - Last 24 Hours (Table) 01/12/20 01/12/20 01/12/20 Range/Units 12:40 12:40 16:09 Neutrophils # 8.3 H (1.3-7.7) k/uL Lymphocytes # 0.4 L (1.0-4.8) k/uL Sodium 129 L (137-145) mmol/L Potassium 5.2 H (3.5-5.1) mmol/L Chloride 91 L (98-107) mmol/L Creatinine 0.54 L (0.66-1.25) mg/dL Glucose 149 H (74-99) mg/dL POC Glucose (mg/dL) 123 H (75-99) mg/dL Ferritin 329.8 H (22.0-322.0) ng/mL C-Reactive Protein 71.1 H (<10.0) mg/L 01/12/20 01/13/20 Range/Units 20:54 06:24 Neutrophils # (1.3-7.7) k/uL Lymphocytes # (1.0-4.8) k/uL Sodium (137-145) mmol/L Potassium (3.5-5.1) mmol/L Chloride (98-107) mmol/L Creatinine (0.66-1.25) mg/dL Glucose (74-99) mg/dL POC Glucose (mg/dL) 162 H 171 H (75-99) mg/dL Ferritin (22.0-322.0) ng/mL C-Reactive Protein (<10.0) mg/L Thrombosis Risk Factor Assmnt - DVT/VTE Prophylaxis DVT/VTE Prophylaxis: Pharmacologic Prophylaxis ordered - Choose All That Apply Each Factor Represents 1 point: Abnormal pulmonary function (COPD) Each Risk Factor Represents 2 Points: Age 61-74 years Thrombosis Risk Factor Assessment Total Risk Factor Score: 3 Thrombosis Risk Factor Assessment Level: Moderate Risk Assessment and Plan Plan: 1. Acute on chronic hypoxic respiratory failure secondary to COPD exacerbation and underlying pulmonary fibrosis. Patient admitted to the hospital, consult with Dr. Mireles, continue oxygen therapy, continue DuoNeb treatments 4 times daily and as needed, azithromycin, Tessalon Perles, Pulmicort increased to 1 mg twice daily, ceftriaxone, Solu-Medrol at 60 mg IV every 6 hours. 2. Advanced COPD with pulmonary fibrosis, steroid dependent and chronic hypoxic and hypercapnic respiratory failure on home O2 at 2-09/24 L. Continue as in #1. 3. Hyponatremia. Continue IV fluids 50 mL per hour. Recheck lab work in the morning. 4. Hyperglycemia most likely secondary to steroids. Check A1c. NovoLog scale before meals and at bed time. 5. Rheumatoid arthritis, stable. 6. Hyperlipidemia. 7. Obstructive sleep apnea unable to tolerate CPAP. 8. Chronic back pain and generalized osteoarthritis. Continue Melfa as needed 9. History of perforated duodenal ulcer status post exploratory laparotomy with repair of perforated duodenal ulcer and repair of incarcerated umbilical hernia. 10. Generalized anxiety disorder and recurrent depression. Continue Zoloft 50 mg daily and Xanax 0.25 mg at bedtime. 11. DVT prophylaxis. Heparin subcu. 10. GI prophylaxis. Continue Protonix daily. 12. Insomnia. Melatonin added. 13. COVID-19 infection not present. Patient will be admitted to the hospital for a minimum of 2 night stay. Discharge plan: To be determined. Patient has been at [facility] in the past. Consult PT and OT. Impression and plan of care have been directed as dictated by the signing physician. Albania Salinas nurse practitioner acting as scribe for signing physician.
[2020-01-13 11:39] LABS: Glucose,Whole Blood 130 mg/dL (75-99)
[2020-01-13] MEDS: SODIUM CHLORIDE 0.9% 1,000 ML IV SCH (12:09)
--- NOTE | 2020-01-13 13:48 | P.CNPUL ---
History of Present Illness Consult date: 01/12/20 Reason for consult: dyspnea History of present illness: The patient is 69 years of age and he has long-term history of COPD and pulmonary fibrosis. Based on his pulmonary function test in 2017 he has an FVC of 72% and FEV1 of 46% and he has been steroid dependent for the past few years taking prednisone a daily basis. He has also underlying rheumatoid arthritis and previously he was taking immunosuppression with Humira none for now. His o xygen dependent. The patient presented to the ED because of worsening shortness of breath and her Breathing for the past 2 weeks along with increased cough. No reported fever or chills. He hasn't taken antibiotics and steroids on outpatient basis which hasn't helped and he continued to have increased cough and dyspnea. For that reason he came into the emergency department. He has been maintained on 10 mg of prednisone a daily basis outpatient basis and he takes Symbicort as maintenance and DuoNeb nebulized treatments around the clock. We'll plan to continue his current white cell count is at 9.20 with a hemoglobin of 15.7. His sodium is 129 with a normal renal function. LFTs are within normal limits. Lactic acid level is at 1.3. The Procal. level is at 0.09. CRP 71 with a ferritin level of 329. Covid 19 testing was done and the results are still pending for now. His chest x-ray shows COPD with coarse interstitial consistent with underlying pulmonary fibrosis. There is no e vidence of any acute infiltration. The patient was started on DuoNeb nebulized treatments around the clock, Pulmicort Respules, IV Solu-Medrol in addition to IV Rocephin and he was admitted today medical floor and the pulmonary consultation was requested.Back in 2019, the patient had a complicated was an ulcer perforation with pneumoperitoneum requiring a sitter laparotomy and repair of perforated ulcer as well as a repair of an incarcerated umbilical hernia. Back then, the patient was under our care.subsequent to that, the patient presented also with an intraperitoneal abscess and abdominal wall abscess requiring incision and drainage with subsequent antibiotic treatment utilizing a combination of daptomycin and Rocephin with good results. Cultures back then showed anaerobic microorganism in addition to Citrobacter and Proteus Note that the patient is typically on oxygen at 3.5 L per minute nasal cannula. Review of Systems Constitutional: Reports fatigue, Reports fever, Reports lethargy, Reports poor appetite, Reports weakness Eyes: denies blurred vision, denies bulging eye, denies decreased vision Ears: deny: decreased hearing, ear discharge, earache, tinnitus Ears, nose, mouth and throat: Denies headache, Denies sore throat Cardiovascular: Reports decreased exercise tolerance, Reports dyspnea on exertion, Reports edema, Reports shortness of breath Respiratory: Reports dyspnea, Reports home oxygen, Reports wheezing, reports chronic shortness of breath and inugh. Gastrointestinal: Reports abdominal pain, Reports change in bowel habits, Reports dyspepsia, Reports indigestion, Reports loss of appetite, Reports nausea Genitourinary: Reports as per HPI Musculoskeletal: Reports as per HPI Musculoskeletal: bilateral: ankle swelling, absent: ankle pain, ankle stiffness Integumentary: Denies pruritus, Denies rash Neurological: Reports as per HPI, Reports weakness Psychiatric: Reports as per HPI Endocrine: Reports fatigue Hematologic/Lymphatic: Reports as per HPI Allergic/Immunologic: Reports as per HPI Past Medical History Past Medical History: COPD, Hyperlipidemia, Osteoarthritis (OA), Pneumonia, Rheumatoid Arthritis (RA), Sleep Apnea/CPAP/BIPAP Additional Past Medical History / Comment(s): COPD, pulmonary fibrosis, chronic hypoxic respiratory failure, previous hospitalization for pneumonia and sepsis back in 2018, previous history of pneumoperitoneum related to a perforated duodenal ulcer, repair of an umbilical hernia, obstructive sleep apnea nont olerant to CPAP therapy, chronic back pain, rheumatoid arthritis, degenerative arthritis involving the hips and the knees and hands and the back, hyperlipidemia History of Any Multi-Drug Resistant Organisms: None Reported Past Surgical History: Orthopedic Surgery Additional Past Surgical History / Comment(s): bilateral cataract removals with lens implants, left knee arthroscopy, colonoscopy, repair of a perforated duodenal ulcer and repair of an incarcerated umbilical hernia Past Anesthesia/Blood Transfusion Reactions: No Reported Reaction Past Psychological History: Anxiety, Depression Additional Psychological History / Comment(s): Pt resides with his spouse of 38 yrs. He has home oxygen which he wears prn at 3.5L/NC. He has a nebulizer. Smoking Status: Former smoker Past Alcohol Use History: Daily Additional Past Alcohol Use History / Comment(s): Patient smoked 2 packs per day for 40+ years. He quit 6 years ago. He denies any illicit drug use or marijuana use. He drinks 2 beers per day but none since previous admission and December. 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 Mother Family Medical History: Cancer, CVA/TIA, Dementia, Diabetes Mellitus Additional Family Medical History / Comment(s): Mother is 88yrs old with history of dementia and colon cancer. Sister(s) Additional Family Medical History / Comment(s): Patient has 1 full sister with history of lung cancer. Patient has one half-sister with adrenal problems. Patient does not have any brothers. Patient 3 sons with no major medical problems. Medications and Allergies Home Medications Medication Instructions Recorded Confirmed Type predniSONE 10 mg PO DAILY #30 tab 02/05/18 01/12/20 Rx Albuterol Inhaler [Ventolin Hfa 2 puff INHALATION RT-QID PRN 01/12/20 01/12/20 History Inhaler] Alendronate Sodium [Fosamax] 70 mg PO MI 01/12/20 01/12/20 History Budesonide [Pulmicort] 0.5 mg INHALATION RT-BID 01/12/20 01/12/20 History Cholecalciferol [Vitamin D3 (25 1,000 unit PO DAILY 01/12/20 01/12/20 History Mcg = 1000 Iu)] Doxycycline Hyclate 100 mg PO BID 01/12/20 01/12/20 History HYDROcodone/APAP 10-325MG [[place] 1 tab PO BID PRN 01/12/20 01/12/20 History 10-325] Ipratropium-Albuterol Nebulize 3 ml INHALATION RT-BID 01/12/20 01/12/20 History [Duoneb 0.5 mg-3 mg/3 ml Soln] Metoprolol Succinate [Toprol XL] 25 mg PO DAILY 01/12/20 01/12/20 History Multivitamins, Thera [Multivitamin 1 tab PO DAILY 01/12/20 01/12/20 History (formulary)] Omeprazole [PriLOSEC] 40 mg PO DAILY 01/12/20 01/12/20 History Sertraline [Zoloft] 50 mg PO DAILY 01/12/20 01/12/20 History Allergies Allergy/AdvReac Type Severity Reaction Status Date / Time amoxicillin AdvReac Nausea & Verified 01/12/20 18:00 Vomiting Physical Exam Vitals: Vital Signs Temp Pulse Pulse Resp BP BP Pulse Ox 01/12/20 20:18 104 H 01/12/20 20:04 100 01/12/20 16:00 97.2 F L 106 H 16 115/77 93 L 01/12/20 14:58 97.8 F 90 22 119/80 96 01/12/20 14:00 117 H 23 128/83 94 L 01/12/20 13:30 115 H 19 122/79 94 L 01/12/20 13:00 110 H 23 119/71 96 01/12/20 11:42 98.9 F 128 H 24 139/75 87 L Intake and Output 01/12/20 01/12/20 01/12/20 06:59 14:59 22:59 Intake Total 360 Balance 360 Intake: Oral 360 Other: Weight 70.307 kg 70.307 kg Appearance the patient in [id number] degree of respiratory distress, quite uncomfortable as the patient is having abdominal pain. He has obvious cushingoid features related to chronic steroid use. He also seems to be quite flushed. Head exam was generally normal. There was no scleral icterus or corneal arcus. Mucous membranes were moist. Neck was supple and without jugular venous distension, thyromegaly, or carotid bruits. Carotids were easily palpable bilaterally. There was no adenopathy. The patient is a Mallampati class IV was significant crowding of posterior oropharynx Lungs are diminished bilaterally and the patient has coarse crackles in lung bases and these are Velcro crackles typical of underlying pulmonary fibrosis Heart sounds are tachycardic, Cardiac exam revealed the PMI to be normally situated and sized. The rhythm was regular and no extrasystoles were noted during several minutes of auscultation. The first and second heart sounds were normal and physiologic splitting of the second heart sound was noted. There were no murmurs, rubs, clicks, or gallops. Abdominal exam revealed normal bowel sounds. The abdomen was soft, non-tender, and without masses, organomegaly, or appreciable enlargement of the abdominal aorta. scars of previous abdominal surgery over the anterior abdominal wall, and the patient also has a large anterior abdominal wall hernia which is easily reducible and there is no direct tenderness or rebound tensile guarding. Extremities revealed +1 edema lower diminished bilaterally especially in the left lower extremity. Pulses are diminished. There is no cyanosis or clubbing. Neurologic the patient is awake and alert. Following commands and answering questions appropriately. Focal neurological deficit. Examination of the skin revealed no evidence of significant rashes, suspicious appearing nevi or other concerning lesions. Results - Laboratory Findings CBC and BMP: 01/12/20 12:40 01/12/20 12:40 PT/INR, D-dimer PT 10.1 sec (9.0-12.0) 01/12/20 12:40 INR 1.0 (<1.2) 01/12/20 12:40 D-Dimer 0.51 mg/L FEU (<0.60) 01/12/20 12:40 Abnormal lab findings: Abnormal Labs 01/12/20 01/12/20 01/12/20 12:40 12:40 16:09 Neutrophils # 8.3 H Lymphocytes # 0.4 L Sodium 129 L Potassium 5.2 H Chloride 91 L Creatinine 0.54 L Glucose 149 H POC Glucose (mg/dL) 123 H Ferritin 329.8 H C-Reactive Protein 71.1 H 01/12/20 20:54 Neutrophils # Lymphocytes # Sodium Potassium Chloride Creatinine Glucose POC Glucose (mg/dL) 162 H Ferritin C-Reactive Protein - Diagnostic Findings Chest x-ray: image reviewed Assessment and Plan Plan: 1 acute exacerbation of chronic COPD/pulmonary fibrosis. The patient was tr eated with antibiotics and steroids on outpatient basis with failure to response and the patient was hospitalized. Pro-calcitonin level is low. Covid 19 testing is still pending for now. The patient is being treated with a combination of antibiotics and systemic steroids. 2 chronic hypoxic respiratory failure and the patient is demented on oxygen and underwent 3-1/2 L on outpatient basis 3 advanced COPD/pulmonary fibrosis, oxygen and steroid dependent 4 chronic patient notes features secondary to steroid use 5 history of duodenal ulcer perforation requiring surgical repair and repair of incarcerated umbilical hernia, with subsequent development of intraperitoneal/abdominal abscess requiring incision and drainage and prolonged antibiotic course 7 rheumatoid arthritis 8 obstructive sleep apnea not receiving any CPAP therapy at this point in time 9 chronic back pain 10 hyperlipidemia 11 osteoarthritis plan Agree on the current treatment Covid 19 testing is pending we'll continue to follow
--- NOTE | 2020-01-13 13:53 | P.PN ---
Subjective Progress Note Date: 01/13/20 The patient is 69 years of age and he has long-term history of COPD and pulmonary fibrosis. Based on his pulmonary function test in 2017 he has an FVC of 72% and FEV1 of 46% and he has been steroid dependent for the past few years taking prednisone a daily basis. He has also underlying rheumatoid arthritis and previously he was taking immunosuppression with Humira none for now. His oxygen dependent. The patient presented to the ED because of worsening shortness of breath and her Breathing for the past 2 weeks along with increased cough. No reported fever or chills. He hasn't taken antibiotics and steroids on outpatient basis which hasn't helped and he continued to have increased cough and dyspnea. For that reason he came into the emergency department. He has been maintained on 10 mg of prednisone a daily basis outpatient basis and he takes Symbicort as maintenance and DuoNeb nebulized treatments around the clock. We'll plan to continue his current white cell count is at 9.20 with a hemoglobin of 15.7. His sodium is 129 with a normal renal function. LFTs are within normal limits. Lactic acid level is at 1.3. The Procal. level is at 0.09. CRP 71 with a ferritin level of 329. Covid 19 testing was done and the results are still pending for now. His chest x-ray shows COPD with coarse interstitial consistent with underlying pulmonary fibrosis. There is no evidence of any acute infiltration. The patient was started on DuoNeb nebulized treatments around the clock, Pulmicort Respules, IV Solu-Medrol in addition to IV Rocephin and he was admitted today medical floor and the pulmonary consultation was requested.Back in 2018, the patient had a complicated was an ulcer perforation with pneumoperitoneum requiring a sitter laparotomy and repair of perforated ulcer as well as a repair of an incarcerated umbilical hernia. Back then, the patient was under our care.subsequent to that, the patient presented also with an intraperitoneal abscess and abdominal wall abscess re quiring incision and drainage with subsequent antibiotic treatment utilizing a combination of daptomycin and Rocephin with good results. Cultures back then showed anaerobic microorganism in addition to Citrobacter and Proteus Note that the patient is typically on oxygen at 3.5 L per minute nasal cannula. On today's evaluation of 01/13/2020, I'm seeing the patient for a follow-up. The patient is still short of breath. He is having some cough and skeletal chest wall. The patient is having the pain anteriorly and posteriorly specially when he coughs. He has increased lower extremity edema and he deserves diuretics. He also needs another echocardiogram to reevaluate his echocardiogram. Meanwhile, the Covid 19 analysis came back negative and the nasopharyngeal swab. Antibiotic coverage includes a combination of Rocephin and Zithromax. The patient remains on IV Solu Medrol 60 mg every 6 hours of can be tapered as on today's evaluation he is less bronchospastic and wheezy. The pat ient also will placed on IV to KVO. Objective - Vital Signs Vital signs: Vital Signs Temp 98 F 01/13/20 12:00 Pulse 82 01/13/20 12:00 Resp 18 01/13/20 12:00 BP 115/60 01/13/20 12:00 Pulse Ox 97 01/13/20 12:00 Intake & Output 01/12/20 01/13/20 01/13/20 18:59 06:59 18:59 Intake Total 360 200 400 Output Total 500 250 Balance 360 -300 150 Weight 70.307 kg 64 kg Intake: Intake, IV Titration 200 Amount Sodium Chloride 0.9% 1, 100 000 ml @ 50 mls/hr IV . Q20H [facility] Rx#:[id number] cefTRIAXone 1 gm In 100 Sodium Chloride 0.9% 50 ml @ 100 mls/hr IVPB Q24HR [facility] Rx#:[id number] Oral 360 200 200 Output: Urine 500 250 Other: Voiding Method Urinal Urinal - Exam Appearance the patient in [id number] degree of respiratory distress, quite uncomfortable as the patient is having abdominal pain. He has obvious cushingoid features related to chronic steroid use. He also seems to be quite flushed. Head exam was generally normal. There was no scleral icterus or corneal arcus. Mucous membranes were moist. Neck was supple and without jugular venous distension, thyromegaly, or carotid bruits. Carotids were easily palpable bilaterally. There was no adenopathy. The patient is a Mallampati class IV was significant crowding of posterior oropharynx Lungs are diminished bilaterally and the patient has coarse crackles in lung bases and these are Velcro crackles typical of underlying pulmonary fibrosis Heart sounds are tachycardic, Cardiac exam revealed the PMI to be normally situated and sized. The rhythm was regular and no extrasystoles were noted during several minutes of auscultation. The first and second heart sounds were normal and physiologic splitting of the second heart sound was noted. There were no murmurs, rubs, clicks, or gallops. Abdominal exam revealed normal bowel sounds. The abdomen was soft, non-tender, and without masses, organomegaly, or appreciable enlargement of the abdominal aorta. scars of previous abdominal surgery over the anterior abdominal wall, and the patient also has a large anterior abdominal wall hernia which is easily red ucible and there is no direct tenderness or rebound tensile guarding. Extremities revealed +1 edema lower diminished bilaterally especially in the left lower extremity. Pulses are diminished. There is no cyanosis or clubbing. Neurologic the patient is awake and alert. Following commands and answering questions appropriately. Focal neurological deficit. Examination of the skin revealed no evidence of significant rashes, suspicious appearing nevi or other concerning lesions. - Labs CBC & Chem 7: 01/12/20 12:40 01/12/20 12:40 Labs: Abnormal Lab Results - Last 24 Hours (Table) 01/12/20 01/12/20 01/12/20 Range/Units 12:40 16:09 20:54 POC Glucose (mg/dL) 123 H 162 H (75-99) mg/dL Ferritin 329.8 H (22.0-322.0) ng/mL 01/13/20 01/13/20 Range/Units 06:24 11:38 POC Glucose (mg/dL) 171 H 130 H (75-99) mg/dL Ferritin (22.0-322.0) ng/mL Assessment and Plan Plan: 1 acute exacerbation of chronic COPD/pulmonary fibrosis. The patient was treated with antibiotics and steroids on outpatient basis with failure to response and the patient was hospitalized. Pro-calcitonin level is low. Covid 19 testing is negative. There have a component of CHF and fluid overload as the patient has increased lower extremity edema. On today's evaluation is less bronchospastic and wheezy. 2 chronic hypoxic respiratory failure and the patient is demented on oxygen and underwent 3-1/2 L on outpatient basis 3 advanced COPD/pulmonary fibrosis, oxygen and steroid dependent 4 chronic patient notes features secondary to steroid use 5 history of duodenal ulcer perforation requiring surgical repair and repair of incarcerated umbilical hernia, with subsequent development of intraperitoneal/abdominal abscess requiring incision and drainage and prolonged antibiotic course 7 rheumatoid arthritis 8 obstructive sleep apnea not receiving any CPAP therapy at this point in time 9 chronic back pain 10 hyperlipidemia 11 osteoarthritis plan The Covid 19 evaluation came back negative. Start the patient on Lasix 40 mg every 12 hours Echocardiogram to evaluate the cardiac function IV fluids to KVO Taper the Solu Medrol to 40 mg every 8 hours Continue Rocephin and Zithromax We'll continue to follow
[2020-01-13 16:43] LABS: Glucose,Whole Blood 155 mg/dL (75-99)
[2020-01-13] MEDS: methylPREDNISolone SOD SUCCI 40 MG/ML 1 ML VIAL IV SCH ×2 (17:25→23:30)
[2020-01-13] MEDS: BUDESONIDE 1 MG/2 ML NEBU INHALATION SCH (20:08)
[2020-01-13 20:52] LABS: Glucose,Whole Blood 121 mg/dL (75-99)
[2020-01-13] MEDS: MELATONIN 5 MG TABLET PO PRN (21:21)
[2020-01-13] MEDS: MORPHINE SULFATE 2 MG/ML SYRINGE IVP PRN (21:21)
[2020-01-13] MEDS: ALPRAZolam 0.25 MG TAB PO PRN (21:21)
[2020-01-14] MEDS: MORPHINE SULFATE 2 MG/ML SYRINGE IVP PRN ×5 (01:06→20:03)
[2020-01-14] MEDS: SODIUM CHLORIDE 0.9% 1,000 ML IV SCH (01:29)
[2020-01-14 06:20] LABS: Glucose,Whole Blood 141 mg/dL (75-99)
[2020-01-14] MEDS: PANTOPRAZOLE 40 MG TABLET PO SCH (06:31)
[2020-01-14] MEDS: INSULIN ASPART (NovoLOG) 100 UNIT/ML VIAL SQ SCH ×4 (06:31→23:39)
[2020-01-14 07:44] LABS: African American GFR (CKD) >90 (>60 ml/min/1.73 sqM); Anion Gap 3 mmol/L; Blood Urea Nitrogen 20 mg/dL (9-20); Calcium 8.7 mg/dL (8.4-10.2); Carbon Dioxide 34 mmol/L (22-30); Chloride 97 mmol/L (98-107); Glucose 131 mg/dL (74-99); Non-African American GFR(CKD) >90 (>60 ml/min/1.73 sqM); Potassium 4.9 mmol/L (3.5-5.1); Sodium 134 mmol/L (137-145)
[2020-01-14] MEDS: BUDESONIDE 1 MG/2 ML NEBU INHALATION SCH ×2 (08:08→19:25)
[2020-01-14] MEDS: IPRATROPIUM-ALBUTEROL 3 ML NEB INHALATION SCH ×4 (08:09→19:25)
[2020-01-14] MEDS: HYDROcodone/APAP 10-325MG 1 EACH TAB PO PRN ×3 (08:19→23:44)
[2020-01-14] MEDS: methylPREDNISolone SOD SUCCI 40 MG/ML 1 ML VIAL IV SCH ×3 (08:19→23:38)
[2020-01-14] MEDS: CHOLECALCIFEROL 1,000 UNIT TAB PO SCH (08:21)
[2020-01-14] MEDS: SERTRALINE 50 MG TAB PO SCH (08:21)
[2020-01-14] MEDS: MULTIVITAMINS, THERA 1 EACH TAB PO SCH (08:21)
[2020-01-14] MEDS: AZITHROMYCIN 500 MG TAB PO SCH (08:21)
[2020-01-14] MEDS: METOPROLOL SUCCINATE (ER) 25 MG TAB.ER.24H PO SCH (08:21)
[2020-01-14] MEDS: BENZONATATE 100 MG CAP PO SCH ×3 (08:21→20:03)
[2020-01-14] MEDS: FUROSEMIDE 10 MG/ML 4 ML VIAL IV SCH ×2 (09:26→20:03)
[2020-01-14 11:36] LABS: Glucose,Whole Blood 114 mg/dL (75-99)
--- NOTE | 2020-01-14 13:59 | P.PN ---
Subjective Progress Note Date: 01/14/20 This is a 69-year-old male patient of Dr. Holbrook and Dr. Mireles with past medical history of advanced steroid-dependent COPD, hyperlipidemia, rheumatoid arthritis, obstructive sleep apnea unable to tolerate CPAP, chronic hypoxic respiratory failure on home O2 at 3 L nasal cannula, generalized osteoarthritis, chronic back pain pseudomonas in sputum on previous admission secondary to colonization or pseudomonal pneumonia. Known FVC of 72% and FEV1 of 46%. History of perforated duodenal ulcer status post exploratory laparotomy with repair of perforated duodenal ulcer and repair of incarcerated umbilical hernia. Patient states that he has had difficulty with breathing for the past 2 weeks. He has been seeing Dr. Cohen and has been on a tapering steroid dose as well as doxycycline without any improvement. He is also using nebulizers inhalers at home. Patient was advised by Dr. Holbrook to come in the hospital for further evaluation and treatment. Patient came into [facility] emergency center for evaluation. Patient was afebrile, heart rate 128, blood pressure 139/75, pulse ox 87%. EKG was a sinus tachycardia with occasional PVC. Chest x-ray revealed COPD with coarsened interstitium stable from prior exam correlate for chronic interstitial pulmonary fibrosis. No acute infiltrate. Underlying interstitial or viral pneumonitis not excluded. CBC was unremarkable, sodium 129, potassium 5.2, chloride 91, CO2 30, BUN 14 and creatinine 0.54, blood sugar 149. Pro-ca lcitonin 0.09, pro BNP 405. Patient does not have history of diabetes. Liver function tests within normal limits, C reactive protein 71.1, d-dimer 0.51. Lactic acid 1.3. Influenza testing negative. Rotavirus testing in progress. CT of the chest is stable pulmonary fibrosis and underlying emphysematous change. Patient was started on IV steroids, nebulizer treatments, admitted to the cardiac stepdown unit and consult with Dr. Mireles. 01/13: Patient has been seen and followed by Dr. Mireles. He discussed Lasix 40 mg every [address] Echocardiogram has been ordered and pending. Patient is continued on Rocephin and Zithromax, Solu-Medrol is currently at 40 mg every 8 hours. He is currently on oxygen at 5 L pulse oxing 86-92%. He is normally on 2-1/2-3 L at home. Patient is been afebrile, heart rate 84, blood pressure 127/73. Blood sugars 131 255. Sodium 134, potassium 4.9, chloride 97, CO2 34, BUN 20, creatinine 0.55. Patient states he continues to have a cough and significant pain in his chest with coughing. He continues to have some shortness of breath. Medicine received call during the night regarding pain control and MS was added and patient has [place] or MS to take for pain. No pedal edema noted. He states he has been up and urinating adequately. He states he does have significant shortness of breath when he gets the bathroom. Incentive spirometry is 500 ML's. Objective - Vital Signs Vital signs: Vital Signs Temp 97 F L 01/14/20 04:00 Pulse 84 01/14/20 04:00 Resp 18 01/14/20 04:00 BP 127/73 01/14/20 04:00 Pulse Ox 92 L 01/14/20 04:08 Intake & Output 01/13/20 01/14/20 01/14/20 18:59 06:59 18:59 Intake Total 400 400 240 Output Total 1050 200 250 Balance -650 200 -10 Weight 69.3 kg Intake: Intake, IV Titration 200 Amount Sodium Chloride 0.9% 1, 100 000 ml @ 5 mls/hr IV . Q24H LUCAS Rx#:[id number] cefTRIAXone 1 gm In 100 Sodium Chloride 0.9% 50 ml @ 100 mls/hr IVPB Q24HR LUCAS Rx#:[id number] Oral 200 400 240 Output: Urine 1050 200 250 Other: Voiding Method Urinal Urinal # Voids 1 1 # Bowel Movements 1 - Exam Review of Systems Constitutional: Reports fatigue, Denies anorexia, Denies chills, Denies fever, Denies poor appetite, Denies weight gain Eyes: denies blurred vision, denies pain Ears, nose, mouth and throat: Denies dysphagia, Denies headache, Denies nasal congestion, Denies nasal discharge, Denies sore throat, Denies vertigo Cardiovascular: Reports shortness of breath, Denies chest pain, Denies edema, Denies leg edema, Denies lightheadedness, Denies syncope, reports shortness of breath with activity Respiratory: Reports cough, Reports cough with sputum, Reports dyspnea, Reports home oxygen, Reports wheezing, Denies excessive sputum, Denies hemoptysis Gastrointestinal: Denies abdominal pain, Denies diarrhea, Denies nausea, Denies vomiting Genitourinary: Denies dysuria, Denies urinary frequency, Denies urinary retention Musculoskeletal: Denies frequent falls, Denies gait dysfunction, Denies muscle weakness, Denies myalgias Integumentary: Denies pruritus, Denies rash, Denies wounds Neurological: Denies change in mentation, Denies change in speech, Denies numbness, Denies seizures, Denies weakness Psychiatric: Denies anxiety, Denies depression, Denies hopelessness Endocrine: Denies fatigue, Denies weight change Physical examination Gen: This is a 69-year-old male. Patient is resting in bed appears to be comfortable and in no acute distress. HEENT: Head is atraumatic, normocephalic. Pupils equal, round. Sclerae is anicteric. NECK: Supple. No JVD. No lymphadenopathy. No thyromegaly. LUNGS: Coarse crackles bilaterally. Mild expiratory wheezing No intercostal retractions. HEART: Regular rate and rhythm. No murmur. Sinus tachycardia. ABDOMEN: Soft. Bowel sounds are present. No masses. No tenderness. EXTREMITIES: No pedal edema. No calf tenderness. Dorsalis pedis +2 bilaterally. NEUROLOGICAL: Patient is awake, alert and oriented x3. Cranial nerves 2 through 12 are grossly intact. - Labs CBC & Chem 7: 01/12/20 12:40 01/14/20 06:51 Labs: Abnormal Lab Results - Last 24 Hours (Table) 01/13/20 01/13/20 01/13/20 Range/Units 11:38 16:41 20:52 Sodium (137-145) mmol/L Chloride (98-107) mmol/L Carbon Dioxide (22-30) mmol/L Creatinine (0.66-1.25) mg/dL Glucose (74-99) mg/dL POC Glucose (mg/dL) 130 H 155 H 121 H (75-99) mg/dL 01/14/20 01/14/20 Range/Units 06:18 06:51 Sodium 134 L (137-145) mmol/L Chloride 97 L (98-107) mmol/L Carbon Dioxide 34 H (22-30) mmol/L Creatinine 0.55 L (0.66-1.25) mg/dL Glucose 131 H (74-99) mg/dL POC Glucose (mg/dL) 141 H (75-99) mg/dL Microbiology - Last 24 Hours (Table) 01/12/20 12:40 Blood Culture - Preliminary Blood No Growth after 24 hours Assessment and Plan Plan: 1. Acute on chronic hypoxic respiratory failure secondary to COPD exacerbation and underlying pulmonary fibrosis, possible acute heart failure. Patient admitted to the hospital, consult with Dr. Mireles, continue oxygen therapy, co ntinue DuoNeb treatments 4 times daily and as needed, azithromycin, Tessalon Perles, Pulmicort increased to 1 mg twice daily, ceftriaxone, Solu-Medrol decreased to 40 mg every 8 hours. Lasix 40 mg every 12 hours IV added as well as echocardiogram. 2. Advanced COPD with pulmonary fibrosis, steroid dependent and chronic hypoxic and hypercapnic respiratory failure on home O2 at 2-1/2 - 3 L. Continue as in #1. 3. Hyponatremia. Discontinue IV fluids. Recheck lab work in the morning. 4. Hyperglycemia most likely secondary to steroids. Check A1c. NovoLog scale before meals and at bed time. 5. Rheumatoid arthritis, stable. 6. Hyperlipidemia. 7. Obstructive sleep apnea unable to tolerate CPAP. 8. Chronic back pain and generalized osteoarthritis. Continue [place] as needed and morphine has been added. 9. History of perforated duodenal ulcer status post exploratory laparotomy with repair of perforated duodenal ulcer and repair of incarcerated umbilical hernia. 10. Generalized anxiety disorder and recurrent depression. Continue Zoloft 50 mg daily and Xanax 0.25 mg at bedtime. 11. DVT prophylaxis. Heparin subcu. 10. GI prophylaxis. Continue Protonix daily. 12. Insomnia. Melatonin added. 13. COVID-19 infection not present. Discharge plan: To be determined. Patient has been at [facility] in the past. Consult PT. Impression and plan of care have been directed as dictated by the signing physician. [place]ia Salinas nurse practitioner acting as scribe for signing physician.
[2020-01-14 16:43] LABS: Glucose,Whole Blood 153 mg/dL (75-99)
[2020-01-14] MEDS: ALPRAZolam 0.25 MG TAB PO PRN (20:03)
[2020-01-14] MEDS: MELATONIN 5 MG TABLET PO PRN (20:03)
[2020-01-14 20:17] LABS: Glucose,Whole Blood 131 mg/dL (75-99)
[2020-01-15] MEDS: MORPHINE SULFATE 2 MG/ML SYRINGE IVP PRN ×2 (01:05→04:57)
[2020-01-15 03:56] VITALS: RESP 20
[2020-01-15] MEDS: PANTOPRAZOLE 40 MG TABLET PO SCH (04:56)
[2020-01-15 06:13] LABS: Glucose,Whole Blood 119 mg/dL (75-99)
[2020-01-15] MEDS: INSULIN ASPART (NovoLOG) 100 UNIT/ML VIAL SQ SCH ×2 (07:01→12:26)
[2020-01-15] MEDS: SODIUM CHLORIDE 0.9% 1,000 ML IV SCH (07:02)
[2020-01-15 07:23] LABS: Potassium 4.9 mmol/L (3.5-5.1)
[2020-01-15 07:24] LABS: African American GFR (CKD) >90 (>60 ml/min/1.73 sqM); Anion Gap 8 mmol/L; Blood Urea Nitrogen 28 mg/dL (9-20); Calcium 8.7 mg/dL (8.4-10.2); Carbon Dioxide 36 mmol/L (22-30); Chloride 89 mmol/L (98-107); Glucose 121 mg/dL (74-99); Non-African American GFR(CKD) >90 (>60 ml/min/1.73 sqM); Sodium 133 mmol/L (137-145)
[2020-01-15] MEDS: BUDESONIDE 1 MG/2 ML NEBU INHALATION SCH (07:50)
[2020-01-15] MEDS: IPRATROPIUM-ALBUTEROL 3 ML NEB INHALATION SCH ×2 (07:50→11:38)
[2020-01-15] MEDS: FUROSEMIDE 10 MG/ML 4 ML VIAL IV SCH (08:44)
[2020-01-15] MEDS: methylPREDNISolone SOD SUCCI 40 MG/ML 1 ML VIAL IV SCH (08:44)
[2020-01-15] MEDS: AZITHROMYCIN 500 MG TAB PO SCH (08:45)
[2020-01-15] MEDS: CHOLECALCIFEROL 1,000 UNIT TAB PO SCH (08:45)
[2020-01-15] MEDS: METOPROLOL SUCCINATE (ER) 25 MG TAB.ER.24H PO SCH (08:45)
[2020-01-15] MEDS: MULTIVITAMINS, THERA 1 EACH TAB PO SCH (08:45)
[2020-01-15] MEDS: SERTRALINE 50 MG TAB PO SCH (08:45)
[2020-01-15] MEDS: HYDROcodone/APAP 10-325MG 1 EACH TAB PO PRN (08:45)
[2020-01-15] MEDS: BENZONATATE 100 MG CAP PO SCH (08:45)
[2020-01-15] MEDS ORDERED: HYDROcodone/APAP 10-325MG 1 EACH TAB PO PRN (08:55)
[2020-01-15] MEDS ORDERED: KETOROLAC 30 MG/ML 1 ML VIAL IVP SCH (09:00)
[2020-01-15] MEDS: KETOROLAC 30 MG/ML 1 ML VIAL IVP SCH ×2 (09:50→15:03)
--- NOTE | 2020-01-15 10:29 | P.DS ---
Providers Date of admission: 01/12/20 14:14 Expected date of discharge: 01/15/20 Attending physician: Anjana Sotomayor MD Consults: 01/12/20 14:14 Consult Physician Routine Consulting Provider: Ashia Mireles Consult Reason/Comments: COPD Do you want consulting provider notified?: Yes Primary care physician: Razia Holbrook [facility] Course: This is a 69-year-old male patient of Dr. Holbrook and Dr. Mireles with past medical history of advanced steroid-dependent COPD, hyperlipidemia, rheumatoid arthritis, obstructive sleep apnea unable to tolerate CPAP, chronic hypoxic respiratory failure on home O2 at 3 L nasal cannula, generalized osteoarthritis, chronic back pain pseudomonas in sputum on previous admission secondary to colonization or pseudomonal pneumonia. Known FVC of 72% and FEV1 of 46%. History of perforated duodenal ulcer status post exploratory laparotomy with repair of perforated duodenal ulcer and repair of incarcerated umbilical hernia. Patient states that he has had difficulty with breathing for the past 2 weeks. He has been seeing Dr. Cohen and has been on a tapering steroid dose as well as doxycycline without any improvement. He is also using nebulizers inhalers at home. Patient was advised by Dr. Holbrook to come in the hospital for further evaluation and treatment. Patient came into [facility] emergency center for evaluation. Patient was afebrile, heart rate 128, blood pressure 139/75, pulse ox 87%. EKG was a sinus tachycardia with occasional PVC. Chest x-ray revealed COPD with coarsened interstitium stable from prior exam correlate for chronic interstitial pulmonary fibrosis. No acute infiltrate. Underlying interstitial or viral pneumonitis not excluded. CBC was unremarkable, sodium 129, potassium 5.2, chlo ride 91, CO2 30, BUN 14 and creatinine 0.54, blood sugar 149. Pro-calcitonin 0.09, pro BNP 405. Patient does not have history of diabetes. Liver function tests within normal limits, C reactive protein 71.1, d-dimer 0.51. Lactic acid 1.3. Influenza testing negative. Rotavirus testing in progress. CT of the chest is stable pulmonary fibrosis and underlying emphysematous change. Patient was started on IV steroids, nebulizer treatments, admitted to the cardiac stepdown unit and consult with Dr. Mireles. 01/13: Patient has been seen and followed by Dr. Mireles. He discussed Lasix 40 mg every [address] Echocardiogram has been ordered and pending. Patient is continued on Rocephin and Zithromax, Solu-Medrol is currently at 40 mg every 8 hours. He is currently on oxygen at 5 L pulse oxing 86-92%. He is normally on 2-1/2-3 L at home. Patient is been afebrile, heart rate 84, blood pressure 127/73. Blood sugars 131 255. Sodium 134, potassium 4.9, chloride 97, CO2 34, BUN 20, creatinine 0.55. Patient states he continues to have a cough and significant pain in his chest with coughing. He continues to have some shortness of breath. Medicine received call during the night regarding pain control and MS was added and patient has [place] or MS to take for pain. No pedal edema noted. He states he has been up and urinating adequately. He states he does have significant shortness of breath when he gets the bathroom. Incentive spirometry is 500 ML's. 01/14: Patient states that his breathing status is improved but he still has some shortness of breath with ambulating to the bathroom but he is near his baseline. He is currently on Solu-Medrol 40 mg IV every 8 hours and Lasix 40 mg IV twice daily. He is continuing to complain of the chest wall and upper abdomen pain from coughing and he has been taking Dilaudid and [place] around the clock. We are discontinuing Dilaudid and started Toradol IV and increased frequency of [place]. Patient will need to obtain a new prescription from Dr. Holbrook if necessary. She has been cleared for discharge home today. Patient will be recommended for oral ibuprofen for pain control. Prescriptions have been sent t o his pharmacy. Patient will be discharged home today in stable condition. Echocardiogram reveals EF of 55-60%, trace mitral regurgitation, trace tricuspid regurgitation. Discharge diagnoses: 1. Acute on chronic hypoxic respiratory failure secondary to COPD exacerbation and underlying pulmonary fibrosis, possible acute diastolic heart failure. 2. Advanced COPD with pulmonary fibrosis, steroid dependent and chronic hypoxic and hypercapnic respiratory failure on home O2 at 2-1/2 - 3 L. 3. Hyponatremia. 4. Hyperglycemia most likely secondary to steroids. 5. Rheumatoid arthritis, stable. 6. Hyperlipidemia. 7. Obstructive sleep apnea unable to tolerate CPAP. 8. Chronic back pain and generalized osteoarthritis. 9. History of perforated duodenal ulcer status post exploratory laparotomy with repair of perforated duodenal ulcer and repair of incarcerated umbilical hernia. 10. Generalized anxiety disorder and recurrent depression. 11. Insomnia. Melatonin added. 12. COVID-19 infection not present. Discharge plan: home. Impression and plan of care have been directed as dictated by the signing physician. [place] Salinas nurse practitioner acting as scribe for signing physician. Patient Condition at Discharge: Good Plan - Discharge Summary Discharge Rx Participant: No New Discharge Prescriptions: New Furosemide [Lasix] 40 mg PO DAILY #30 tablet Ibuprofen [Motrin] 400 mg PO Q6HR PRN #30 tab PRN Reason: Pain predniSONE 0 mg PO DIRECTED #30 tab Benzonatate [Tessalon Perles] 200 mg PO TID #21 cap Azithromycin [Zithromax] 500 mg PO DAILY #5 tab Continue predniSONE 10 mg PO DAILY #30 tab Ipratropium-Albuterol Nebulize [Duoneb 0.5 mg-3 mg/3 ml Soln] 3 ml INHALATION RT-BID Cholecalciferol [Vitamin D3 (25 Mcg = 1000 Iu)] 1,000 unit PO DAILY Budesonide [Pulmicort] 0.5 mg INHALATION RT-BID Alendronate Sodium [Fosamax] 70 mg PO MI Albuterol Inhaler [Ventolin Hfa Inhaler] 2 puff INHALATION RT-QID PRN PRN Reason: Shortness Of Breath Omeprazole [PriLOSEC] 40 mg PO DAILY Metoprolol Succinate [Toprol XL] 25 mg PO DAILY Sertraline [Zoloft] 50 mg PO DAILY Multivitamins, Thera [Multivitamin (formulary)] 1 tab PO DAILY HYDROcodone/APAP 10-325MG [[place] 10-325] 1 tab PO BID PRN PRN Reason: Pain Discontinued Doxycycline Hyclate 100 mg PO BID Discharge Medication List predniSONE 10 mg PO DAILY #30 tab 02/05/18 [Rx] Albuterol Inhaler [Ventolin Hfa Inhaler] 2 puff INHALATION RT-QID PRN 01/12/20 [History] Alendronate Sodium [Fosamax] 70 mg PO MI 01/12/20 [History] Budesonide [Pulmicort] 0.5 mg INHALATION RT-BID 01/12/20 [History] Cholecalciferol [Vitamin D3 (25 Mcg = 1000 Iu)] 1,000 unit PO DAILY 01/12/20 [History] HYDROcodone/APAP 10-325MG [[place] 10-325] 1 tab PO BID PRN 01/12/20 [History] Ipratropium-Albuterol Nebulize [Duoneb 0.5 mg-3 mg/3 ml Soln] 3 ml INHALATION RT-BID 01/12/20 [History] Metoprolol Succinate [Toprol XL] 25 mg PO DAILY 01/12/20 [History] Multivitamins, Thera [Multivitamin (formulary)] 1 tab PO DAILY 01/12/20 [History] Omeprazole [PriLOSEC] 40 mg PO DAILY 01/12/20 [History] Sertraline [Zoloft] 50 mg PO DAILY 01/12/20 [History] Azithromycin [Zithromax] 500 mg PO DAILY #5 tab 01/15/20 [Rx] Benzonatate [Tessalon Perles] 200 mg PO TID #21 cap 01/15/20 [Rx] Furosemide [Lasix] 40 mg PO DAILY #30 tablet 01/15/20 [Rx] Ibuprofen [Motrin] 400 mg PO Q6HR PRN #30 tab 01/15/20 [Rx] predniSONE 0 mg PO DIRECTED #30 tab 01/15/20 [Rx] Follow up Appointment(s)/Referral(s): Razia Holbrook MD [Primary Care Provider] - 1 Week Ashia Mireles MD [STAFF PHYSICIAN] - 2 Weeks Ambulatory/Diagnostic Orders: Comprehensive Metabolic Panel [LAB.AMB] Location: None Selected Discharge Disposition: HOME SELF-CARE
[2020-01-15 10:42] VITALS: TEMP 97.8
--- NOTE | 2020-01-15 11:00 | ECHOF ---
Referral Reason:CHF MEASUREMENTS -------- HEIGHT: 172.7 cm WEIGHT: 67.6 kg BP: IVSd: 1.3 cm (0.6 - 1.1) LVIDd: 3.8 cm (3.9 - 5.3) LVPWd: 1.5 cm (0.6 - 1.1) IVSs: 1.8 cm LVIDs: 1.9 cm LVPWs: 1.9 cm MV E Maximo: 0.98 m/s MV DecT: 195 ms MV A Maximo: 0.96 m/s MV E/A Ratio: 1.01 RAP: 5.00 mmHg RVSP: 10.99 mmHg FINDINGS -------- Sinus rhythm. This was a technically difficult study with suboptimal views. The left ventricular size is normal. There is mild concentric left ventricular hypertrophy. Overa ll left ventricular systolic function is normal with, an EF between 55 - 60 %. The right ventricle is normal in size. The left atrial size is normal. The right atrial size is normal. Lumason used Unable to visualize the septum. The aortic valve is trileaflet, and appears structurally normal. No aortic stenosis or regurgitation. The mitral valve is normal. There is trace mitral regurgitation. The tricuspid valve appears structurally normal. Trace tricuspid regurgitation present. Right kannan tricular systolic pressure is normal at < 35 mmHg. There is no pulmonic regurgitation present. The aortic root size is normal. IVC Not well visulized. There is no pericardial effusion. CONCLUSIONS -------- 1. Sinus rhythm. 2. This was a technically difficult study with suboptimal views. 3. The left ventricular size is normal. 4. There is mild concentric left ventricular hypertrophy. 5. Overall left ventricular systolic function is normal with, an EF between 55 - 60 %. 6. The right ventricle is normal in size. 7. The left atrial size is normal. 8. The right atrial size is normal. 9. Lumason used 10. Unable to visualize the septum. 11. The aortic valve is trileaflet, and appears structurally normal. No aortic stenosis or regurgitat ion. 12. The mitral valve is normal. 13. There is trace mitral regurgitation. 14. The tricuspid valve appears structurally normal. 15. Trace tricuspid regurgitation present. 16. Right ventricular systolic pressure is normal at < 35 mmHg. 17. There is no pulmonic regurgitation present. 18. The aortic root size is normal. 19. IVC Not well visulized. 20. There is no pericardial effusion. POWER CHECKER: Eva Alejo RDCS
--- NOTE | 2020-01-15 11:17 | P.PN ---
Subjective Progress Note Date: 01/15/20 Principal diagnosis: The patient is 69 years of age and he has long-term history of COPD and pulmonary fibrosis. Based on his pulmonary function test in 2017 he has an FVC of 72% and FEV1 of 46% and he has been steroid dependent for the past few years taking prednisone a daily basis. He has also underlying rheumatoid arthritis and previously he was taking immunosuppression with Humira none for now. His oxygen dependent. The patient presented to the ED because of worsening shortness of breath and her Breathing for the past 2 weeks along with increased cough. No reported fever or chills. He hasn't taken antibiotics and steroids on outpatient basis which hasn't helped and he continued to have increased cough and dyspnea. For that reason he came into the emergency department. He has been maintained on 10 mg of prednisone a daily basis outpatient basis and he takes Symbicort as maintenance and DuoNeb nebulized treatments around the clock. We'll plan to continue his current white cell count is at 9.20 with a hemoglobin of 15.7. His sodium is 129 with a normal renal function. LFTs are within normal limits. Lactic acid level is at 1.3. The Procal. level is at 0.09. CRP 71 with a ferritin level of 329. Covid 19 testing was done and the results are still pending for now. His chest x-ray shows COPD with coarse interstitial consistent with underlying pulmonary fibrosis. There is no evidence of any acute infiltration. The patient was started on DuoNeb nebulized treatments around the clock, Pulmicort Respules, IV Solu-Medrol in addition to IV Rocephin and he was admitted today medical floor and the pulmonary consultation was requested.Back in 2019, the patient had a complicated was an ulcer perforation with pneumoperitoneum requiring a sitter laparotomy and repair of perforated ulcer as well as a repair of an incarcerated umbilical hernia. Back then, the patient was under our care.subsequent to that, the patient presented also with an intraperitoneal abscess and abdominal wall abscess requiring incision and drainage with subsequent antibiotic treatment utilizing a combination of daptomycin and Rocephin with good results. Cultures back then showed anaerobic microorganism in addition to Citrobacter and Proteus Note that the patient is typically on oxygen at 3.5 L per minute nasal cannula. On today's evaluation of 01/13/2020, I'm seeing the patient for a follow-up. The patient is still short of breath. He is having some cough and skeletal chest wall. The patient is having the pain anteriorly and posteriorly specially when he coughs. He has increased lower extremity edema and he deserves diuretics. He also needs another echocardiogram to reevaluate his echocardiogram. Meanwhile, the Covid 19 analysis came back negative and the nasopharyngeal swab. Antibiotic coverage includes a combination of Rocephin and Zithromax. The patient remains on IV Solu Medrol 60 mg every 6 hours of can be tapered as on today's evaluation he is less bronchospastic and wheezy. The patient also will placed on IV to KVO. On 01/14/2020 patient seen in follow-up on selective care unit. Patient is up in the bathroom today, shaving, his pulse ox on 5 L is 90-200%, he was started on Lasix today, he is in negative for 50 fluid balance, his incentive spirometry effort has improved, and she was pulling 1000 mL on the today. Patient does have exertional dyspnea, recovers with rest, denies any chest pain, no fever or chills, hemodynamically stable, no significant swelling involving his lower extremities, lung sounds positive for dementia breath sounds bilaterally, today's labs have been reviewed showing sodium of 134, potassium is 4.9, chloride is 97, CO2 is 34, BUN of 20 and creatinine 0.55. On 01/15/2020 patient seen in follow-up on selective care unit. He is awake and alert, in no acute distress, he is on 3 L of oxygen his pulse ox is 90%, vital signs are stable, weaning is significantly improved, still has some exertional dyspnea, recovers with rest, patient has been ambulating about the room tolerating activity fairly well. No fever or chills, he is been diuresed, he is in -1195 mL fluid balance over the last 24 hours, lower extremity edema is improving. Today's labs have been reviewed showing sodium of 133, potassium is 4.9, chloride is 89, CO2 36, B1 of 20 creatinine 0.67. Afebrile, blood cultures have shown no growth, he is on empiric antibiotics in the form of azithromycin and ceftriaxone, nebulized bronchodilators and IV steroids Objective - Vital Signs Vital signs: Vital Signs Temp 97.8 F 01/15/20 08:00 Pulse 102 H 05/15/20 08:05 Resp 20 01/15/20 03:53 BP 135/78 01/15/20 08:00 Pulse Ox 90 L 01/15/20 08:00 Intake & Output 01/14/20 01/15/20 01/15/20 18:59 06:59 18:59 Intake Total 480 230 Output Total 550 1125 Balance -70 -1125 230 Weight 68 kg Intake: Intake, IV Titration 50 Amount cefTRIAXone 1 gm In 50 Sodium Chloride 0.9% 50 ml @ 100 mls/hr IVPB Q24HR [facility] Rx#:[id number] Oral 480 180 Output: Urine 550 1125 Other: Voiding Method Urinal Urinal # Voids 2 - Exam GENERAL EXAM: Alert, active, very pleasant, white male, on 3 L of oxygen with a pulse ox of 90 tcomfortable in no apparent distress. HEAD: Normocephalic/atraumatic. EYES: Normal reaction of pupils, equal size. Conjunctiva pink, sclera white. NOSE: Clear with pink turbinates. THROAT: No erythema or exudates. NECK: No masses, no JVD, no thyroid enlargement, no adenopathy. CHEST: No chest wall deformity. Symmetrical expansion. LUNGS: Equal air entry with no crackles, wheeze, rhonchi or dullness. CVS: Regular rate and rhythm, normal S1 and S2, no gallops, no murmurs, no rubs ABDOMEN: Soft, nontender. No hepatosplenomegaly, normal bowel sounds, no guarding or rigidity. EXTREMITIES: No clubbing, no edema, no cyanosis, 2+ pulses and upper and lower extremities. MUSCULOSKELETAL: Muscle strength and tone normal. SPINE: No scoliosis or deformity SKIN: No rashes CENTRAL NERVOUS SYSTEM: Alert and oriented -3. No focal deficits, tone is normal in all 4 extremities. PSYCHIATRIC: Alert and oriented -3. Appropriate affect. Intact judgment and insight. - Labs CBC & Chem 7: 01/12/20 12:40 01/15/20 06:06 Labs: Abnormal Lab Results - Last 24 Hours (Table) 01/14/20 01/14/20 01/14/20 Range/Units 11:35 16:32 20:15 Sodium (137-145) mmol/L Chloride (98-107) mmol/L Carbon Dioxide (22-30) mmol/L BUN (9-20) mg/dL Glucose (74-99) mg/dL POC Glucose (mg/dL) 114 H 153 H 131 H (75-99) mg/dL 01/15/20 01/15/20 Range/Units 06:06 06:10 Sodium 133 L (137-145) mmol/L Chloride 89 L (98-107) mmol/L Carbon Dioxide 36 H (22-30) mmol/L BUN 28 H (9-20) mg/dL Glucose 121 H (74-99) mg/dL POC Glucose (mg/dL) 119 H (75-99) mg/dL Microbiology - Last 24 Hours (Table) 01/12/20 12:40 Blood Culture - Preliminary Blood No Growth after 48 hours Assessment and Plan Plan: 1 acute exacerbation of chronic COPD/pulmonary fibrosis. The patient was treated with antibiotics and steroids on outpatient basis with failure to response and the patient was hospitalized. Pro-calcitonin level is low. Covid 19 testing is negative. There have a component of CHF and fluid overload as the patient has increased lower extremity edema. On today's evaluation is less bronchospastic and wheezy. 2 chronic hypoxic respiratory failure and the patient is demented on oxygen and underwent 3-1/2 L on outpatient basis 3 advanced COPD/pulmonary fibrosis, oxygen and steroid dependent 4 chronic patient notes features secondary to steroid use 5 history of duodenal ulcer perforation requiring surgical repair and repair of incarcerated umbilical hernia, with subsequent development of intra peritoneal/abdominal abscess requiring incision and drainage and prolonged antibiotic course 7 rheumatoid arthritis 8 obstructive sleep apnea not receiving any CPAP therapy at this point in time 9 chronic back pain 10 hyperlipidemia 11 osteoarthritis Plan: Patient is doing well, he is in negative fluid balance, he has been diuresed, breathing easier, FiO2 down to 3 L, tolerating ambulation, no fever or chills, blood cultures are negative, patient has been treated with empiric antibiotics, nebulized bronchodilators and steroids, improved, he would like to go home today, from pulmonary perspective patient can be considered for discharge home today, with outpatient follow-up with Dr. Mireles in the office in 10 days to 2 weeks I performed a history & physical examination of the patient and discussed their management with my nurse practitioner, Stella Powers. I reviewed the nurse practitioner's note and agree with the documented findings and plan of care. Lung sounds are positive for clear breath sounds. The findings and the impression was discussed with the patient. I attest to the documentation by the nurse practitioner. Time with Patient: Less than 30
--- NOTE | 2020-01-15 11:18 | P.PN ---
Subjective Progress Note Date: 01/14/20 Principal diagnosis: The patient is 69 years of age and he has long-term history of COPD and pulmonary fibrosis. Based on his pulmonary function test in 2017 he has an FVC of 72% and FEV1 of 46% and he has been steroid dependent for the past few years taking prednisone a daily basis. He has also underlying rheumatoid arthritis and previously he was taking immunosuppression with Humira none for now. His oxygen dependent. The patient presented to the ED because of worsening shortness of breath and her Breathing for the past 2 weeks along with increased cough. No reported fever or chills. He hasn't taken antibiotics and steroids on outpatient basis which hasn't helped and he continued to have increased cough and dyspnea. For that reason he came into the emergency department. He has been maintained on 10 mg of prednisone a daily basis outpatient basis and he takes Symbicort as maintenance and DuoNeb nebulized treatments around the clock. We'll plan to continue his current white cell count is at 9.20 with a hemoglobin of 15.7. His sodium is 129 with a normal renal function. LFTs are within normal limits. Lactic acid level is at 1.3. The Procal. level is at 0.09. CRP 71 with a ferritin level of 329. Covid 19 testing was done and the results are still pending for now. His chest x-ray shows COPD with coarse interstitial consistent with underlying pulmonary fibrosis. There is no evidence of any acute infiltration. The patient was started on DuoNeb nebulized treatments around the clock, Pulmicort Respules, IV Solu-Medrol in addition to IV Rocephin and he was admitted today medical floor and the pulmonary consultation was requested.Back in 2018, the patient had a complicated was an ulcer perforation with pneumoperitoneum requiring a sitter laparotomy and repair of perforated ulcer as well as a repair of an incarcerated umbilical hernia. Back then, the patient was under our care.subsequent to that, the patient presented also with an intraperitoneal abscess and abdominal wall abscess requiring incision and drainage with subsequent antibiotic treatment utilizing a combination of daptomycin and Rocephin with good results. Cultures back then showed anaerobic microorganism in addition to Citrobacter and Proteus Note that the patient is typically on oxygen at 3.5 L per minute nasal cannula. On today's evaluation of 01/13/2020, I'm seeing the patient for a follow-up. The patient is still short of breath. He is having some cough and skeletal chest wall. The patient is having the pain anteriorly and posteriorly specially when he coughs. He has increased lower extremity edema and he deserves diuretics. He also needs another echocardiogram to reevaluate his echocardiogram. Meanwhile, the Covid 19 analysis came back negative and the nasopharyngeal swab. Antibiotic coverage includes a combination of Rocephin and Zithromax. The patient remains on IV Solu Medrol 60 mg every 6 hours of can be tapered as on today's evaluation he is less bronchospastic and wheezy. The patient also will placed on IV to KVO. On 01/14/2020 patient seen in follow-up on selective care unit. Patient is up in the bathroom today, shaving, his pulse ox on 5 L is 90-200%, he was started on Lasix today, he is in negative for 50 fluid balance, his incentive spirometry effort has improved, and she was pulling 1000 mL on the today. Patient does have exertional dyspnea, recovers with rest, denies any chest pain, no fever or chills, hemodynamically stable, no significant swelling involving his lower extremities, lung sounds positive for dementia breath sounds bilaterally, today's labs have been reviewed showing sodium of 134, potassium is 4.9, chloride is 97, CO2 is 34, BUN of 20 and creatinine 0.55. Objective - Vital Signs Vital signs: Vital Signs Temp 98 F 01/14/20 08:00 Pulse 82 01/14/20 08:00 Resp 18 01/14/20 08:00 BP 120/73 01/14/20 08:00 Pulse Ox 100 01/14/20 08:00 Intake & Output 01/13/20 01/14/20 01/14/20 18:59 06:59 18:59 Intake Total 400 400 240 Output Total 1050 200 250 Balance -650 200 -10 Weight 69.3 kg Intake: Intake, IV Titration 200 Amount Sodium Chloride 0.9% 1, 100 000 ml @ 5 mls/hr IV . Q24H [facility] Rx#:[id number] cefTRIAXone 1 gm In 100 Sodium Chloride 0.9% 50 ml @ 100 mls/hr IVPB Q24HR [facility] Rx#:[id number] Oral 200 400 240 Output: Urine 1050 200 250 Other: Voiding Method Urinal Urinal Urinal # Voids 1 1 2 # Bowel Movements 1 - Exam GENERAL EXAM: Alert, active, very pleasant, white male, on 5 L of oxygen with a pulse ox of 92 tcomfortable in no apparent distress. HEAD: Normocephalic/atraumatic. EYES: Normal reaction of pupils, equal size. Conjunctiva pink, sclera white. NOSE: Clear with pink turbinates. THROAT: No erythema or exudates. NECK: No masses, no JVD, no thyroid enlargement, no adenopathy. CHEST: No chest wall deformity. Symmetrical expansion. LUNGS: Equal air entry with no crackles, wheeze, rhonchi or dullness. CVS: Regular rate and rhythm, normal S1 and S2, no gallops, no murmurs, no rubs ABDOMEN: Soft, nontender. No hepatosplenomegaly, normal bowel sounds, no guarding or rigidity. EXTREMITIES: No clubbing, no edema, no cyanosis, 2+ pulses and upper and lower extremities. MUSCULOSKELETAL: Muscle strength and tone normal. SPINE: No scoliosis or deformity SKIN: No rashes CENTRAL NERVOUS SYSTEM: Alert and oriented -3. No focal deficits, tone is normal in all 4 extremities. PSYCHIATRIC: Alert and oriented -3. Appropriate affect. Intact judgment and insight. - Labs CBC & Chem 7: 01/12/20 12:40 01/15/20 06:06 Labs: Abnormal Lab Results - Last 24 Hours (Table) 01/13/20 01/13/20 01/13/20 Range/Units 11:38 16:41 20:52 Sodium (137-145) mmol/L Chloride (98-107) mmol/L Carbon Dioxide (22-30) mmol/L Creatinine (0.66-1.25) mg/dL Glucose (74-99) mg/dL POC Glucose (mg/dL) 130 H 155 H 121 H (75-99) mg/dL 01/14/20 01/14/20 01/14/20 Range/Units 06:18 06:51 11:35 Sodium 134 L (137-145) mmol/L Chloride 97 L (98-107) mmol/L Carbon Dioxide 34 H (22-30) mmol/L Creatinine 0.55 L (0.66-1.25) mg/dL Glucose 131 H (74-99) mg/dL POC Glucose (mg/dL) 141 H 114 H (75-99) mg/dL Microbiology - Last 24 Hours (Table) 01/12/20 12:40 Blood Culture - Preliminary Blood No Growth after 24 hours Assessment and Plan Plan: 1 acute exacerbation of chronic COPD/pulmonary fibrosis. The patient was t reated with antibiotics and steroids on outpatient basis with failure to response and the patient was hospitalized. Pro-calcitonin level is low. Covid 19 testing is negative. There have a component of CHF and fluid overload as the patient has increased lower extremity edema. On today's evaluation is less bronchospastic and wheezy. 2 chronic hypoxic respiratory failure and the patient is demented on oxygen and underwent 3-1/2 L on outpatient basis 3 advanced COPD/pulmonary fibrosis, oxygen and steroid dependent 4 chronic patient notes features secondary to steroid use 5 history of duodenal ulcer perforation requiring surgical repair and repair of incarcerated umbilical hernia, with subsequent development of intraperitoneal/abdominal abscess requiring incision and drainage and prolonged antibiotic course 7 rheumatoid arthritis 8 obstructive sleep apnea not receiving any CPAP therapy at this point in time 9 chronic back pain 10 hyperlipidemia 11 osteoarthritis Plan: Patient is doing well, he was started on Lasix today, he is diuresing, breathing easier, wean FiO2, continue same dose IV steroids nebulized bronchodilators and antibiotics, will continue to follow. I performed a history & physical examination of the patient and discussed their management with my nurse practitioner, Stella Powers. I reviewed the nurse practitioner's note and agree with the documented findings and plan of care. Lung sounds are positive for clear breath sounds. The findings and the impression was discussed with the patient. I attest to the documentation by the nurse practitioner. Time with Patient: Less than 30
[2020-01-15 12:13] LABS: Glucose,Whole Blood 113 mg/dL (75-99)
[2020-01-15 15:20] VITALS: BP 145/78; PULSE 100
[2020-01-17] MEDS ORDERED: NON FORMULARY DRUG (Alendronate Sodium [Fosamax] 70 MG) PO SCH (18:22)
== END 2020-01-15 15:06 | disposition home or self-care (01) | DRG 190 ==
LOC: EC 11:40 → 3SCARD 14:14
PROVIDERS: ADMIT Internal Medicine; ATTEND Internal Medicine
DX: J44.1 Chronic obstructive pulmonary disease with (acute) exacerbation (principal); J96.21 Acute and chronic respiratory failure with hypoxia; J96.22 Acute and chronic respiratory failure with hypercapnia; E87.1 Hypo-osmolality and hyponatremia; F33.9 Major depressive disorder, recurrent, unspecified; J84.10 Pulmonary fibrosis, unspecified; M06.9 Rheumatoid arthritis, unspecified; Z20.828 Contact with and (suspected) exposure to other viral communicable diseases; G47.33 Obstructive sleep apnea (adult) (pediatric); R73.9 Hyperglycemia, unspecified; T38.0X5A Adverse effect of glucocorticoids and synthetic analogues, initial encounter; K46.9 Unspecified abdominal hernia without obstruction or gangrene; E78.5 Hyperlipidemia, unspecified; I49.3 Ventricular premature depolarization; F41.1 Generalized anxiety disorder; M16.0 Bilateral primary osteoarthritis of hip; M17.0 Bilateral primary osteoarthritis of knee; G89.29 Other chronic pain; M47.9 Spondylosis, unspecified; M19.042 Primary osteoarthritis, left hand; M19.041 Primary osteoarthritis, right hand; G47.00 Insomnia, unspecified; Z99.81 Dependence on supplemental oxygen; Z79.83 Long term (current) use of bisphosphonates; Z79.51 Long term (current) use of inhaled steroids; Z79.52 Long term (current) use of systemic steroids; Z79.899 Other long term (current) drug therapy; Z87.01 Personal history of pneumonia (recurrent); Z86.19 Personal history of other infectious and parasitic diseases; Z87.891 Personal history of nicotine dependence; Z87.11 Personal history of peptic ulcer disease; Z98.890 Other specified postprocedural states; Z98.42 Cataract extraction status, left eye; Z98.41 Cataract extraction status, right eye; Z96.1 Presence of intraocular lens; Z88.0 Allergy status to penicillin; Z80.6 Family history of leukemia; Z83.3 Family history of diabetes mellitus; Z80.0 Family history of malignant neoplasm of digestive organs; Z81.8 Family history of other mental and behavioral disorders; Z82.3 Family history of stroke; Z80.1 Family history of malignant neoplasm of trachea, bronchus and lung
CPT/HCPCS: 36415; 71045; 71260; 80048; 80053; 82728; 83605; 83615; 83735; 83880; 84145; 85025; 85379; 85610; 85730; 86140; 87040; 87502; 87635; 93005; 93306; 94640; 94667; 96365; 96366; 96375; 99291

== ENCOUNTER 2020-12-06 14:35 | Inpatient (IN) | payer MEDICARE, OTHER ==
[2020-12-06] MEDS ORDERED: ACETAMINOPHEN TAB 325 MG TAB PO PRN (14:54)
[2020-12-06] MEDS ORDERED: ALBUTEROL HFA INHALER INHALATION STA (14:54)
[2020-12-06] MEDS ORDERED: SODIUM CHLORIDE 0.9% 2,000 ML IV ONE (14:55)
--- NOTE | 2020-12-06 15:02 | ED ---
SOB HPI - General Stated Complaint: SOB Time Seen by Provider: 12/06/20 14:53 Source: EMS Mode of arrival: EMS Limitations: no limitations - History of Present Illness Initial Comments: This is a 70-year-old male with a history of severe COPD on 3 L O2 chronically who presents emergency department for worsening short of breath, cough. He states that symptoms started 3 days ago. He states he did get the code vaccine on for 3. The next day started having some worsening of his shortness of breath, fatigue, decreased appetite. He states that today got much worse so he was sent to the emergency department. The patient was hypoxic and hypotensive when EMS arrived. He got 500 mL of IV fluids and route. He was placed on 5 L nasal cannula with minimal improvement in his oxygen saturation. The patient states he does not feel more short of breath than normal however does admit to a cough productive of green sputum. He denies any nausea, vomiting, or diarrhea. No abdominal pain. He states he's had decreased appetite and decreased oral intake. He really denies any complaints at this time. - Related Data Home Medications Medication Instructions Recorded Confirmed Albuterol Inhaler [Ventolin Hfa 2 puff INHALATION RT-QID PRN 01/12/20 12/06/20 Inhaler] Cholecalciferol [Vitamin D3 (25 1,000 unit PO DAILY 01/12/20 12/06/20 Mcg = 1000 Iu)] HYDROcodone/APAP 10-325MG [[place] 1 tab PO BID PRN 01/12/20 12/06/20 10-325] Metoprolol Succinate [Toprol XL] 25 mg PO DAILY 01/12/20 12/06/20 Multivitamins, Thera [Multivitamin 1 tab PO DAILY 01/12/20 12/06/20 (formulary)] Omeprazole [PriLOSEC] 40 mg PO DAILY 01/12/20 12/06/20 Sertraline [Zoloft] 150 mg PO DAILY 01/12/20 12/06/20 Amitriptyline HCl [Elavil] 10 mg PO HS 12/06/20 12/06/20 Benzonatate [Tessalon Perles] 100 - 200 mg PO TID PRN 12/06/20 12/06/20 Celecoxib [CeleBREX] 200 mg PO DAILY PRN 12/06/20 12/06/20 Gabapentin [Neurontin] 300 mg PO HS 12/06/20 12/06/20 predniSONE 5 mg PO Q48H 12/06/20 12/06/20 Allergies Allergy/AdvReac Type Severity Reaction Status Date / Time amoxicillin AdvReac Nausea & Verified 12/06/20 18:26 Vomiting Review of Systems ROS Statement: Those systems with pertinent positive or pertinent negative responses have been documented in the HPI. ROS Other: All systems not noted in ROS Statement are negative. Past Medical History Past Medical History: COPD, Hyperlipidemia, Osteoarthritis (OA), Pneumonia, Rheumatoid Arthritis (RA), Sleep Apnea/CPAP/BIPAP Additional Past Medical History / Comment(s): COPD, pulmonary fibrosis, chronic hypoxic respiratory failure, previous hospitalization for pneumonia and sepsis back in 2018, previous history of pneumoperitoneum related to a perforated duodenal ulcer, repair of an umbilical hernia, obstructive sleep apnea nontolerant to CPAP therapy, chronic back pain, rheumatoid arthritis, degenera tive arthritis involving the hips and the knees and hands and the back, hyperlipidemia History of Any Multi-Drug Resistant Organisms: None Reported Past Surgical History: Orthopedic Surgery Additional Past Surgical History / Comment(s): bilateral cataract removals with lens implants, left knee arthroscopy, colonoscopy, repair of a perforated duodenal ulcer and repair of an incarcerated umbilical hernia Past Anesthesia/Blood Transfusion Reactions: No Reported Reaction Past Psychological History: Anxiety, Depression Smoking Status: Former smoker Past Alcohol Use History: Daily Past Drug Use History: None Reported - Past Family History Father Family Medical History: Cancer Additional Family Medical History / Comment(s): Father of leukemia. Mother Family Medical History: Cancer, CVA/TIA, Dementia, Diabetes Mellitus Additional Family Medical History / Comment(s): Mother is 88yrs old with history of dementia and colon cancer. Sister(s) Additional Family Medical History / Comment(s): Patient has 1 full sister with history of lung cancer. Patient has one half-sister with adrenal problems. Patient does not have any brothers. Patient 3 sons with no major medical problems. General Exam - General Exam Comments Initial Comments: Constitutional: Awake alert Appears comfortable Head: Normocephalic atraumatic Eyes: no conjunctival injection No scleral icterus EOMI Neck: No JVD Supple Heart: Regular rate rhythm normal S1-S2 no murmurs Lungs: Patient has bibasilar rales with worse on the right, tachypnea Abdomen: Soft nondistended nontender, ventral hernia is soft and reducible Extremities: Non edematous DP pulses intact Radial pulses intact Neuro: A&Ox3 No focal neurologic deficits Psych: Appropriate mood and affect Limitations: no limitations Course Vital Signs 12/06/20 12/06/20 12/06/20 14:53 14:59 16:00 Temperature 98.1 F Pulse Rate 110 H 101 H Respiratory 19 24 Rate Blood Pressure 87/51 99/63 O2 Sat by Pulse 87 L 95 97 Oximetry 12/06/20 12/06/20 17:01 17:53 Temperature Pulse Rate 99 96 Respiratory 26 H 26 H Rate Blood Pressure 89/65 97/68 O2 Sat by Pulse 95 97 Oximetry - Reevaluation(s) Reevaluation #1: 12/06/20 16:13 Pt re-evaluated. O2 sats 98% on NRB. Will try Hi flow NC. BP 99/67. Reevaluation #2: EKG showing sinus tachycardia with a rate of 101. There is no abnormal ST segment changes or tumor. QTC is 516. Other intervals normal. No ectopy. 12/06/20 17:52 Pt on 12L HFNC and tolerating it well. 12/06/20 17:52 Reevaluation #3: 12/06/20 18:38 Pt much improved. Sats mid 90s on HFNC. Started on abx for sepsis and pneumonia. Covid neg. Pts BP has been in 90s/60s with MAPS in 70s. lactic acid was normal. Do not feel he is in shock at this time. Will continue with fluids. Was given 100mg Solucortef because the patient is on chronic steroids at home. Pt sleeping but easily arousable. Medical Decision Making - Medical Decision Making This 30-year-old male who presents him in [facility] [place] for fatigue, decreased appetite, and shortness of breath. The patient was found to be hypoxic on arrival. Blood pressure was also low. Patient was given a total of 2-1/2 L of fluids here and by EMS. Initially was with a nonrebreather however was able to be weaned down to high flow nasal cannula. The patient felt much improved after albuterol treatment. He was started on IV antibiotics for the acquired pneumonia pneumonia and sepsis based on lab work. Lactic acid was normal. Blood pressure was on the low side however maps were continuously in the 70s. I did speak to the patient about mechanical ventilation if required and he states that he does not want that. He would agree to central line so if necessary. At this time the patient heart rate is in the 90s and I did give us a stress dose steroids. We'll continue to monitor. I spoke with Dr. Kirk who accepted the patient. We'll place the patient in stepdown for close monitoring. Dr. Barbosa was placed on consult. - Lab Data Result diagrams: 12/06/20 14:58 12/06/20 14:58 Lab Results 12/06/20 12/06/20 12/06/20 Range/Units 14:58 14:58 14:58 WBC 19.6 H (3.8-10.6) k/uL RBC 4.34 (4.30-5.90) m/uL Hgb 13.2 (13.0-17.5) gm/dL Hct 39.2 (39.0-53.0) % MCV 90.3 (80.0-100.0) fL MCH 30.4 (25.0-35.0) pg MCHC 33.7 (31.0-37.0) g/dL RDW 14.9 (11.5-15.5) % Plt Count 321 (150-450) k/uL MPV 7.0 Neutrophils % 84 % Lymphocytes % 9 % Monocytes % 6 % Eosinophils % 0 % Basophils % 0 % Neutrophils # 16.5 H (1.3-7.7) k/uL Lymphocytes # 1.8 (1.0-4.8) k/uL Monocytes # 1.1 H (0-1.0) k/uL Eosinophils # 0.1 (0-0.7) k/uL Basophils # 0.0 (0-0.2) k/uL PT 11.2 (9.0-12.0) sec INR 1.1 (<1.2) APTT 24.0 (22.0-30.0) sec D-Dimer 0.81 H (<0.60) mg/L FEU Sample Site ABG pH (7.35-7.45) ABG pCO2 (35-45) mmHg ABG pO2 (83-108) mmHg ABG HCO3 (21-25) mmol/L ABG Total CO2 (19-24) mmol/L ABG O2 Saturation (94-97) % ABG Base Excess mmol/L Chris Test FiO2 % Sodium 132 L (137-145) mmol/L Potassium 4.4 (3.5-5.1) mmol/L Chloride 97 L (98-107) mmol/L Carbon Dioxide 28 (22-30) mmol/L Anion Gap 7 mmol/L BUN 20 (9-20) mg/dL Creatinine 0.95 (0.66-1.25) mg/dL Est GFR (CKD-EPI)AfAm >90 (>60 ml/min/1.73 sqM) Est GFR (CKD-EPI)NonAf 81 (>60 ml/min/1.73 sqM) Glucose 110 H (74-99) mg/dL Plasma Lactic Acid Steven (0.7-2.0) mmol/L Calcium 8.3 L (8.4-10.2) mg/dL Magnesium 1.7 (1.6-2.3) mg/dL Total Bilirubin 0.5 (0.2-1.3) mg/dL AST 27 (17-59) U/L ALT 17 (4-49) U/L Alkaline Phosphatase 72 (38-126) U/L Lactate Dehydrogenase 304 L (313-618) U/L Troponin I (0.000-0.034) ng/mL C-Reactive Protein 89.2 H (<10.0) mg/L NT-Pro-B Natriuret Pep pg/mL Total Protein 6.5 (6.3-8.2) g/dL Albumin 3.3 L (3.5-5.0) g/dL Coronavirus (PCR) (Not Detectd) 12/06/20 12/06/20 12/06/20 Range/Units 14:58 14:58 14:58 WBC (3.8-10.6) k/uL RBC (4.30-5.90) m/uL Hgb (13.0-17.5) gm/dL Hct (39.0-53.0) % MCV (80.0-100.0) fL MCH (25.0-35.0) pg MCHC (31.0-37.0) g/dL RDW (11.5-15.5) % Plt Count (150-450) k/uL MPV Neutrophils % % Lymphocytes % % Monocytes % % Eosinophils % % Basophils % % Neutrophils # (1.3-7.7) k/uL Lymphocytes # (1.0-4.8) k/uL Monocytes # (0-1.0) k/uL Eosinophils # (0-0.7) k/uL Basophils # (0-0.2) k/uL PT (9.0-12.0) sec INR (<1.2) APTT (22.0-30.0) sec D-Dimer (<0.60) mg/L FEU Sample Site ABG pH (7.35-7.45) ABG pCO2 (35-45) mmHg ABG pO2 (83-108) mmHg ABG HCO3 (21-25) mmol/L ABG Total CO2 (19-24) mmol/L ABG O2 Saturation (94-97) % ABG Base Excess mmol/L Chris Test FiO2 % Sodium (137-145) mmol/L Potassium (3.5-5.1) mmol/L Chloride (98-107) mmol/L Carbon Dioxide (22-30) mmol/L Anion Gap mmol/L BUN (9-20) mg/dL Creatinine (0.66-1.25) mg/dL Est GFR (CKD-EPI)AfAm (>60 ml/min/1.73 sqM) Est GFR (CKD-EPI)NonAf (>60 ml/min/1.73 sqM) Glucose (74-99) mg/dL Plasma Lactic Acid Steven 1.4 (0.7-2.0) mmol/L Calcium (8.4-10.2) mg/dL Magnesium (1.6-2.3) mg/dL Total Bilirubin (0.2-1.3) mg/dL AST (17-59) U/L ALT (4-49) U/L Alkaline Phosphatase (38-126) U/L Lactate Dehydrogenase (313-618) U/L Troponin I 0.075 H* (0.000-0.034) ng/mL C-Reactive Protein (<10.0) mg/L NT-Pro-B Natriuret Pep 3170 pg/mL Total Protein (6.3-8.2) g/dL Albumin (3.5-5.0) g/dL Coronavirus (PCR) (Not Detectd) 12/06/20 12/06/20 Range/Units 15:17 15:43 WBC (3.8-10.6) k/uL RBC (4.30-5.90) m/uL Hgb (13.0-17.5) gm/dL Hct (39.0-53.0) % MCV (80.0-100.0) fL MCH (25.0-35.0) pg MCHC (31.0-37.0) g/dL RDW (11.5-15.5) % Plt Count (150-450) k/uL MPV Neutrophils % % Lymphocytes % % Monocytes % % Eosinophils % % Basophils % % Neutrophils # (1.3-7.7) k/uL Lymphocytes # (1.0-4.8) k/uL Monocytes # (0-1.0) k/uL Eosinophils # (0-0.7) k/uL Basophils # (0-0.2) k/uL PT (9.0-12.0) sec INR (<1.2) APTT (22.0-30.0) sec D-Dimer (<0.60) mg/L FEU Sample Site R radial ABG pH 7.30 L (7.35-7.45) ABG pCO2 56 H (35-45) mmHg ABG pO2 91 (83-108) mmHg ABG HCO3 28 H (21-25) mmol/L ABG Total CO2 30 H (19-24) mmol/L ABG O2 Saturation 95.9 (94-97) % ABG Base Excess 1.5 mmol/L Chris Test Yes FiO2 100 % Sodium (137-145) mmol/L Potassium (3.5-5.1) mmol/L Chloride (98-107) mmol/L Carbon Dioxide (22-30) mmol/L Anion Gap mmol/L BUN (9-20) mg/dL Creatinine (0.66-1.25) mg/dL Est GFR (CKD-EPI)AfAm (>60 ml/min/1.73 sqM) Est GFR (CKD-EPI)NonAf (>60 ml/min/1.73 sqM) Glucose (74-99) mg/dL Plasma Lactic Acid Steven (0.7-2.0) mmol/L Calcium (8.4-10.2) mg/dL Magnesium (1.6-2.3) mg/dL Total Bilirubin (0.2-1.3) mg/dL AST (17-59) U/L ALT (4-49) U/L Alkaline Phosphatase (38-126) U/L Lactate Dehydrogenase (313-618) U/L Troponin I (0.000-0.034) ng/mL C-Reactive Protein (<10.0) mg/L NT-Pro-B Natriuret Pep pg/mL Total Protein (6.3-8.2) g/dL Albumin (3.5-5.0) g/dL Coronavirus (PCR) Not Detected (Not Detectd) Disposition Clinical Impression: Sepsis, CAP (community acquired pneumonia), Sepsis with acute hypoxic respiratory failure Disposition: ADMITTED IP TO THIS [facility] Condition: Critical Referrals: Razia Holbrook MD [Primary Care Provider] - 1-2 days
[2020-12-06 15:32] LABS: Basophils % (A) 0 %; Eosinophils # (A) 0.1 k/uL (0-0.7); Eosinophils % (A) 0 %; HCT 39.2 % (39.0-53.0); HGB 13.2 gm/dL (13.0-17.5); Lymphocytes # (A) 1.8 k/uL (1.0-4.8); Lymphocytes % (A) 9 %; MCH 30.4 pg (25.0-35.0); MCHC 33.7 g/dL (31.0-37.0); MCV 90.3 fL (80.0-100.0); Monocytes # (A) 1.1 k/uL (0-1.0); Monocytes % (A) 6 %; Neutrophils # (A) 16.5 k/uL (1.3-7.7); Neutrophils % (A) 84 %; Platelet Count 321 k/uL (150-450); RBC 4.34 m/uL (4.30-5.90); RDW 14.9 % (11.5-15.5); WBC 19.6 k/uL (3.8-10.6)
[2020-12-06 15:38] LABS: INR 1.1 (<1.2); Prothrombin Time 11.2 sec (9.0-12.0)
[2020-12-06 15:44] LABS: D-Dimer 0.81 mg/L FEU (<0.60)
[2020-12-06 15:46] LABS: ABG Base Excess 1.5 mmol/L; ABG HCO3 28 mmol/L (21-25); ABG Oxygen Saturation 95.9 % (94-97); ABG PCO2 56 mmHg (35-45); ABG PO2 91 mmHg (83-108); ABG TCO2 30 mmol/L (19-24); Allen Test Performed? Yes
[2020-12-06 16:07] LABS: ALT 17 U/L (4-49); AST 27 U/L (17-59); African American GFR (CKD) >90 (>60 ml/min/1.73 sqM); Albumin 3.3 g/dL (3.5-5.0); Alkaline Phosphatase 72 U/L (38-126); Anion Gap 7 mmol/L; Blood Urea Nitrogen 20 mg/dL (9-20); Calcium 8.3 mg/dL (8.4-10.2); Carbon Dioxide 28 mmol/L (22-30); Chloride 97 mmol/L (98-107); Glucose 110 mg/dL (74-99); LDH 304 U/L (313-618); Magnesium 1.7 mg/dL (1.6-2.3); Non-African American GFR(CKD) 81 (>60 ml/min/1.73 sqM); Potassium 4.4 mmol/L (3.5-5.1); Sodium 132 mmol/L (137-145); Total Bilirubin 0.5 mg/dL (0.2-1.3); Total Protein 6.5 g/dL (6.3-8.2)
[2020-12-06 16:35] LABS: C Reactive Protein 89.2 mg/L (<10.0)
--- NOTE | 2020-12-06 16:56 | XR ---
EXAMINATION TYPE: XR chest 1V portable DATE OF EXAM: 12/06/2020 HISTORY: Shortness of breath. COMPARISON: 01/12/2020 TECHNIQUE: Single view of the chest is submitted. FINDINGS: Demonstrated are scattered senescent parenchymal change. There is underlying pulmonary fibrosis. Increased patchy density however is noted at the left lung ba se and superimposed pneumonia is difficult to exclude. The heart is stable. Hilar and mediastinal structures are within normal limits. Degenerative changes are seen of the dorsal spine. IMPRESSION: 1. There is underlying pulmonary fibrosis. Increased patchy density however is noted at the left mirella g base and superimposed pneumonia is difficult to exclude.
[2020-12-06] MEDS ORDERED: AZITHROMYCIN 500 MG in SODIUM CHLORIDE 0.9% 250 ML IVPB STA (17:09)
[2020-12-06] MEDS ORDERED: HYDROCORTISONE SUCCINATE 100 MG/2 ML VIAL IV STA (17:11)
[2020-12-06] MEDS: SODIUM CHLORIDE 0.9% 1,000 ML IV SCH (17:39)
[2020-12-06] MEDS ORDERED: NALOXONE 0.4 MG/ML 1 ML VIAL IV PRN (18:35)
--- NOTE | 2020-12-06 20:21 | CT ---
EXAMINATION TYPE: CT angio chest DATE OF EXAM: 12/06/2020 8:12 PM COMPARISON: 01/13/2020 HISTORY: Elevated d-dimer, +covid. CT DLP: 360.8 mGycm Automated exposure control for dose reduction was used. CONTRAST: CTA scan of the thorax is performed with IV Contrast, patient injected with 100ml mL of Isovue 370, p ulmonary embolism protocol. . FINDINGS: LUNGS: Diffuse emphysematous changes are seen with coarsened interstitial and areas of alveolar conso lidation infiltrates. No sizable pleural effusion. No pneumothorax. MEDIASTINUM: There is satisfactory enhancement of the pulmonary artery and its branches, there is no CT evidence for pulmonary embolism. There are no greater than 1 cm hilar or mediastinal lymph nodes. No pericardial effusion is seen. Heart is enlarged. Aorta of normal caliber with atherosclerotic c hanges. Coronary artery calcification seen. OTHER: Hypertrophic and degenerative changes of the spine. Left adrenal nodule stable. Suspect right renal hypodense lesion only partially imaged.. Multilevel degenerative disc disease with severe comp ression fractures involving the mid thoracic spine at multiple levels suspect retropulsion and canal stenosis. This was also seen on prior exam but appears progressed at one level and new with regard to additional levels. Splenic granuloma incidentally noted. IMPRESSION: 1. Diffuse COPD with diffuse bilateral infiltrates. 2. No diagnostic evidence of central pulmonary embolism. Distal branches somewhat limited in assessme nt. 3. Multiple severe compression fractures with retropulsion involving the mid and upper thoracic spine correlate clinically. Thecal sac compression and suspected follow-up MRI could BE obtained as clinic ally warranted. Findings are age indeterminate at two levels and progressed at previously described d eformity relative to the prior exam of 01/13/2020.
[2020-12-06] MEDS: IPRATROPIUM-ALBUTEROL 3 ML NEB INHALATION SCH (22:02)
[2020-12-06] MEDS: HYDROcodone/APAP 10-325MG 1 EACH TAB PO PRN (23:39)
[2020-12-07] MEDS: IPRATROPIUM-ALBUTEROL 3 ML NEB INHALATION SCH ×4 (00:14→17:08)
[2020-12-07] MEDS: SODIUM CHLORIDE 0.9% 1,000 ML IV SCH ×3 (04:30→20:08)
[2020-12-07] MEDS ORDERED: ALBUTEROL NEBULIZED 2.5 MG/3 ML INHALATION PRN (05:53)
[2020-12-07] MEDS: PANTOPRAZOLE 40 MG TABLET PO SCH (06:32)
[2020-12-07] MEDS: methylPREDNISolone SOD SUCCI 125 MG/2 ML VIAL IV SCH ×4 (06:32→23:19)
[2020-12-07] MEDS: SERTRALINE 50 MG TAB PO SCH (09:31)
[2020-12-07] MEDS: HYDROcodone/APAP 10-325MG 1 EACH TAB PO PRN ×3 (09:32→23:20)
[2020-12-07] MEDS: METOPROLOL SUCCINATE (ER) 25 MG TAB.ER.24H PO SCH (09:32)
[2020-12-07] MEDS: MULTIVITAMINS, THERA 1 EACH TAB PO SCH (09:32)
[2020-12-07] MEDS: CHOLECALCIFEROL 25 MCG (1000 IU) TABLET PO SCH (09:32)
[2020-12-07] MEDS ORDERED: IPRATROPIUM-ALBUTEROL 3 ML NEB INHALATION PRN (10:56)
[2020-12-07 12:01] LABS: Glucose,Whole Blood 141 mg/dL (75-99)
--- NOTE | 2020-12-07 12:08 | P.HPIM ---
History of Present Illness H&P Date: 12/07/20 HISTORY OF PRESENT ILLNESS This is a 70-year-old male patient of Dr. Holbrook and Dr. Mireles with past medical history of advanced steroid-dependent COPD, hyperlipidemia, rheumatoid arthritis, obstructive sleep apnea unable to tolerate CPAP, chronic hypoxic respiratory failure on home O2 at 3 L nasal cannula, generalized osteoarthritis, chronic back pain pseudomonas in sputum on previous admission secondary to colonization or pseudomonal pneumonia. Known FVC of 72% and FEV1 of 46%. History of perforated duodenal ulcer status post exploratory laparotomy with repair of perforated duodenal ulcer and repair of incarcerated umbilical hernia. Patient states that he has redness of breath but became significantly worse yesterday. He states he recently received medication from Dr. Cohen that seemed to help a little only. He denies having any fever or chills. No wh eezing. He complains of sputum production. He denies any known sick contacts. Patient came into [facility] emergency center for evaluation. Patient was afebrile, heart rate in 110, blood pressure 87/51, pulse ox 87% on 5 L nasal cannula. EKG sinus rhythm with occasional PAC. Lab work revealed WBC 19.6, hemoglobin 13.2, platelet count 321. Sodium 132, potassium 4.4, chloride 97, CO2 28, BUN 20, creatinine 0.95. Blood sugar 110. LDH 304, CRP 89.2. BNP 3170. Pro-calcitonin 1.11. Troponins were 0.075, 0.117, 0.103. Chest x-ray shows underlying pulmonary fibrosis. Increased patchy density however is noted at the left lung base and superimposed pneumonia is difficult to exclude. CTA of the chest revealed diffuse COPD with diffuse bilateral infiltrates. No evide nce of pulmonary embolism. Distal branches somewhat limited. Severe compression fractures involving the mid and upper thoracic spine. Patient was started on antibiotics, IV steroids, status post 2 L of IV fluid, admitted to the cardiac stepdown unit and consult in place with pulmonary medicine and cardiology. REVIEW OF SYSTEMS Constitutional: No fever, no chills, no night sweats. No weight change. No weakness, fatigue or lethargy. No daytime sleepiness. EENT: No headache. No blurred vision or double vision, no loss of vision. No loss of Hearing, no ringing in the ears, no dizziness. No nasal drainage or congestion. No epistaxis. No sore throat. Lungs: Reports shortness of breath, Reports cough, Reports sputum production. No wheezing. Cardiovascular: No chest pain, no lower extremity edema. No palpitations. No paroxysmal nocturnal dyspnea. No orthopnea. No lightheadedness or dizziness. No syncopal episodes. Abdominal: No abdominal pain. No nausea, vomiting. No diarrhea. No constipation. No bloody or tarry stools.. No loss of appetite. Genitourinary: No dysuria, increased frequency, urgency. No urinary retention. Musculoskeletal: No myalgias. No muscle weakness, no gait dysfunction, no frequent falls. No back pain. No neck pain. Integumentary: No wounds, no lesions. No rash or pruritus. No unusual bruising. No change in hair or nails. Neurologic: No aphasia. No facial droop. No change in mentation. No head injury. No headache. No paralysis. No paresthesia. Psychiatric: No depression. No anxiety. No mood swings. Endocrine: No abnormal blood sugars. No weight change. SOCIAL HISTORY Patient smoked 2 packs per day for 40+ years. He quit 7 years ago. He denies any illicit drug use or marijuana use. He drinks 2 beers per day. 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 patient is has adult children wo are involved. FAMILY HISTORY Father of leukemia. Mother is 89 yrs old with history of dementia and colon cancer. Patient has 1 full sister with history of lung cancer. Patient has one half-sister with adrenal problems. Patient does not have any brothers. Patient 3 sons with no major medical problems. PHYSICAL EXAMINATION Gen: This is 70-year-old male. Patient is resting in bed appears to be comfortable and in no acute distress. HEENT: Head is atraumatic, normocephalic. Pupils equal, round. Sclerae is anicteric. NECK: Supple. No JVD. No lymphadenopathy. No thyromegaly. LUNGS: Coarse crackles bilaterally. Mild expiratory wheezing. No intercostal retractions. HEART: Regular rate and rhythm. No murmur. Sinus tachycardia. ABDOMEN: Soft. Bowel sounds are present. No masses. No tenderness. EXTREMITIES: No pedal edema. No calf tenderness. NEUROLOGICAL: Patient is awake, alert and oriented x3. Cranial nerves 2 through 12 are grossly intact. ASSESSMENT AND PLAN 1. Acute on chronic hypoxic respiratory failure secondary to COPD exacerbation and underlying pulmonary fibrosis with possible pneumonia bilaterally. Patient admitted to the hospital, consult with Dr. Weaver, continue oxygen therapy, continue DuoNeb treatments 4 times daily and as needed, azithromycin, ceftriaxone 1 g IV piggyback daily, Tessalon Perles, Pulmicort increased to 1 mg twice daily, ceftriaxone, Solu-Medrol at 60 mg IV every 6 hours. 2. Advanced COPD with pulmonary fibrosis, steroid dependent and chronic hypoxic and hypercapnic respiratory failure on home O2 at 3 L. Continue as in #1. 3. Elevated troponins without chest pain. Cardiology consult. Echocardiogram ordered. 4. Hypertension. Continue Toprol-XL 25 mg daily. 5. Rheumatoid arthritis, stable. 6. Hyperlipidemia. 7. Obstructive sleep apnea unable to tolerate CPAP. 8. Chronic back pain and generalized osteoarthritis. Continue [place] as needed, gabapentin 300 mg at bedtime 9. History of perforated duodenal ulcer status post exploratory laparotomy with repair of perforated duodenal ulcer and repair of incarcerated umbilical hernia. 10. Generalized anxiety disorder and recurrent depression. Continue Zoloft 50 mg daily, Elavil 10 mg at bedtime. 11. DVT prophylaxis. Heparin subcu. 10. GI prophylaxis. Continue Protonix daily. 12. Insomnia. Continue Elavil 10 mg at bedtime.. 13. Chronic compression fracture. Continue current pain management with [place]. Patient will be admitted to the hospital for a minimum of 2 night stay. DISCHARGE PLAN To be determined. Patient has been at [facility] in the past. Consult PT and OT. Impression and plan of care have been directed as dictated by the signing danny wilson. [place] nurse practitioner acting as scribe for signing physician. Past Medical History Past Medical History: COPD, Hyperlipidemia, Osteoarthritis (OA), Pneumonia, Rheumatoid Arthritis (RA), Sleep Apnea/CPAP/BIPAP Additional Past Medical History / Comment(s): COPD, chronic hypoxic respiratory failure previous history of pneumoperitoneum related to a perforated duodenal ulcer, repair of an umbilical hernia, chronic back pain, History of Any Multi-Drug Resistant Organisms: None Reported Past Surgical History: Orthopedic Surgery Additional Past Surgical History / Comment(s): colonoscopy, repair of a perforated duodenal ulcer and repair of an incarcerated umbilical hernia Past Anesthesia/Blood Transfusion Reactions: No Reported Reaction Past Psychological History: Anxiety, Depression Smoking Status: Former smoker Past Alcohol Use History: Daily Additional Past Alcohol Use History / Comment(s): Patient smoked 2 packs per day for 40+ years. He quit 6 years ago. He denies any illicit drug use or marijuana use. He drinks 2 beers per day but none since previous admission and December. 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 Mother Family Medical History: Cancer, CVA/TIA, Dementia, Diabetes Mellitus Additional Family Medical History / Comment(s): Mother is 88yrs old with history of dementia and colon cancer. Sister(s) Additional Family Medical History / Comment(s): Patient 3 sons with no major medical problems. Medications and Allergies Home Medications Medication Instructions Recorded Confirmed Type Albuterol Inhaler [Ventolin Hfa 2 puff INHALATION RT-QID PRN 01/12/20 12/06/20 History Inhaler] Cholecalciferol [Vitamin D3 (25 1,000 unit PO DAILY 01/12/20 12/06/20 History Mcg = 1000 Iu)] HYDROcodone/APAP 10-325MG [[place] 1 tab PO TID PRN 01/12/20 12/06/20 History 10-325] Metoprolol Succinate [Toprol XL] 25 mg PO DAILY 01/12/20 12/06/20 History Multivitamins, Thera [Multivitamin 1 tab PO DAILY 01/12/20 12/06/20 History (formulary)] Omeprazole [PriLOSEC] 40 mg PO DAILY 01/12/20 12/06/20 History Sertraline [Zoloft] 150 mg PO DAILY 01/12/20 12/06/20 History Amitriptyline HCl [Elavil] 10 mg PO HS 12/06/20 12/06/20 History Benzonatate [Tessalon Perles] 100 - 200 mg PO TID PRN 12/06/20 12/06/20 History Celecoxib [CeleBREX] 200 mg PO DAILY PRN 12/06/20 12/06/20 History Gabapentin [Neurontin] 300 mg PO HS 12/06/20 12/06/20 History predniSONE 5 mg PO Q48H 12/06/20 12/06/20 History Allergies Allergy/AdvReac Type Severity Reaction Status Date / Time amoxicillin AdvReac Nausea & Verified 12/06/20 18:26 Vomiting Physical Exam Vitals: Vital Signs Temp Pulse Pulse Resp BP BP Pulse Ox 12/07/20 07:11 76 12/07/20 04:00 98.1 F 80 20 87/50 94 L 12/07/20 02:00 98 20 12/06/20 23:51 98 20 96/56 94 L 12/06/20 22:08 101 H 18 12/06/20 22:02 94 18 92 L 12/06/20 21:00 97.9 F 93 18 101/70 12/06/20 19:54 98.4 F 100 24 105/63 92 L 12/06/20 19:34 92 18 94/68 97 12/06/20 18:53 97 22 102/71 97 12/06/20 17:53 96 26 H 97/68 97 12/06/20 17:01 99 26 H 89/65 95 12/06/20 16:00 101 H 24 99/63 97 12/06/20 14:59 95 12/06/20 14:53 98.1 F 110 H 19 87/51 87 L Intake and Output 12/06/20 12/07/20 12/07/20 22:59 06:59 14:59 Intake Total 240 Output Total 300 Balance -300 240 Intake: Oral 240 Output: Urine 300 Other: Voiding Method Urinal Weight 70.307 kg 57.5 kg Results CBC & Chem 7: 12/06/20 14:58 12/06/20 14:58 Labs: Abnormal Lab Results - Last 24 Hours (Table) 12/06/20 12/06/20 12/06/20 Range/Units 14:58 14:58 14:58 WBC 19.6 H (3.8-10.6) k/uL Neutrophils # 16.5 H (1.3-7.7) k/uL Monocytes # 1.1 H (0-1.0) k/uL D-Dimer 0.81 H (<0.60) mg/L FEU ABG pH (7.35-7.45) ABG pCO2 (35-45) mmHg ABG HCO3 (21-25) mmol/L ABG Total CO2 (19-24) mmol/L Sodium 132 L (137-145) mmol/L Chloride 97 L (98-107) mmol/L Glucose 110 H (74-99) mg/dL Calcium 8.3 L (8.4-10.2) mg/dL Lactate Dehydrogenase 304 L (313-618) U/L Troponin I (0.000-0.034) ng/mL C-Reactive Protein 89.2 H (<10.0) mg/L Albumin 3.3 L (3.5-5.0) g/dL Procalcitonin (0.02-0.09) ng/mL 12/06/20 12/06/20 12/06/20 Range/Units 14:58 14:58 15:43 WBC (3.8-10.6) k/uL Neutrophils # (1.3-7.7) k/uL Monocytes # (0-1.0) k/uL D-Dimer (<0.60) mg/L FEU ABG pH 7.30 L (7.35-7.45) ABG pCO2 56 H (35-45) mmHg ABG HCO3 28 H (21-25) mmol/L ABG Total CO2 30 H (19-24) mmol/L Sodium (137-145) mmol/L Chloride (98-107) mmol/L Glucose (74-99) mg/dL Calcium (8.4-10.2) mg/dL Lactate Dehydrogenase (313-618) U/L Troponin I 0.075 H* (0.000-0.034) ng/mL C-Reactive Protein (<10.0) mg/L Albumin (3.5-5.0) g/dL Procalcitonin 1.11 H (0.02-0.09) ng/mL 12/06/20 12/07/20 Range/Units 22:52 01:16 WBC (3.8-10.6) k/uL Neutrophils # (1.3-7.7) k/uL Monocytes # (0-1.0) k/uL D-Dimer (<0.60) mg/L FEU ABG pH (7.35-7.45) ABG pCO2 (35-45) mmHg ABG HCO3 (21-25) mmol/L ABG Total CO2 (19-24) mmol/L Sodium (137-145) mmol/L Chloride (98-107) mmol/L Glucose (74-99) mg/dL Calcium (8.4-10.2) mg/dL Lactate Dehydrogenase (313-618) U/L Troponin I 0.117 H* 0.103 H* (0.000-0.034) ng/mL C-Reactive Protein (<10.0) mg/L Albumin (3.5-5.0) g/dL Procalcitonin (0.02-0.09) ng/mL Thrombosis Risk Factor Assmnt - Choose All That Apply Each Factor Represents 1 point: Abnormal pulmonary function (COPD) Other Risk Factors: Yes Each Risk Factor Represents 2 Points: Age 61-74 years Other congenital or acquired thrombophilia - If yes, enter type in comment: No Thrombosis Risk Factor Assessment Total Risk Factor Score: 3 Thrombosis Risk Factor Assessment Level: Moderate Risk
[2020-12-07] MEDS: AZITHROMYCIN 500 MG TAB PO SCH (12:15)
[2020-12-07] MEDS: INSULIN ASPART (NovoLOG) 100 UNIT/ML VIAL SQ SCH ×3 (12:15→21:07)
[2020-12-07 14:53] LABS: Ferritin 254.9 ng/mL (22.0-322.0)
[2020-12-07] MEDS ORDERED: VANCOMYCIN IV PER PHARMACY 1 EACH MISC MISCELLANE PRN (15:57)
[2020-12-07] MEDS: BENZONATATE 100 MG CAP PO PRN (16:21)
[2020-12-07] MEDS: HEPARIN SODIUM,PORCINE/PF 5,000 UNIT/0.5 ML SYRINGE SQ SCH ×2 (16:21→23:19)
[2020-12-07] MEDS: ASPIRIN 81 MG PO SCH (16:23)
[2020-12-07] MEDS ORDERED: VANCOMYCIN 1,000 MG in SODIUM CHLORIDE 0.9% 250 ML IVPB ONE (16:30)
--- NOTE | 2020-12-07 16:53 | P.CRDCN ---
History of Present Illness History of present illness: HISTORY OF PRESENTING ILLNESS This is a 70-year-old male with significant past medical history of COPD (steroid dependent), hyperlipidemia, rheumatoid arthritis, obstructive sleep apnea unable to tolerate CPAP, chronic hypoxic respiratory failure on home O2 at 3 L nasal cannula, generalized osteoarthritis, chronic back pain, perforated duodenal ulcer status post exploratory laparotomy with repair of perforated duodenal ulcer and repair of incarcerated umbilical hernia. We are being con sulted for elevated troponin. Patient states he received his second COVID-19 vaccine last week, and progressively started having worsening shortness of breath and chills at home. Yesterday, patient found sitting at home, very lethargic, short of breath, difficult to arouse, EMS was called and he was brought to ER. Patient was found to be hypotensive and hypoxic. On exam, patient alert and oriented x 3, states he feels much better. He denies ever having chest pain, palpitations. He continues to have shortness of breath and cough. He did have some lightheadedness this week. Troponin 0.07-->0.11>0.10. Patient denies history of any coronary artery disease, hypertension, PA, stroke, diabetes. P atient denies any family history of cardiac disease. Patient states that he is not on any cardiac medication at home. He states there had a cardiac workup. He denies ever having a cardiac catheterization. EKG reveals sinus tachycardia, no acute STT wave abnormalities, prior EKGs appear similar Chest x-ray shows underlying pulmonary fibrosis. Increased patchy density however is noted at the left lung base and superimposed pneumonia is difficult to exclude. CTA of the chest revealed diffuse COPD with diffuse bilateral infiltrates. No evidence of pulmonary embolism. Distal branches somewhat limited. Severe compression fractures involving the mid and upper thoracic spine. Laboratory data reviewed, WBC 19.6, hemoglobin 13.2, platelets 321, d-dimer 0.81, sodium 132, potassium 4.4, serum creatinine 0.95, BUN 20, magnesium 1.7, CRP elevated 89.2, percussed on 1.11, covid-19 negative Vital signs blood pressure 99/56, heart rate 65, afebrile, requiring increased oxygen requirements to maintain sats. currently on high flow nasal cannula. Telemetry tracings indicate sinus tachycardia. REVIEW OF SYSTEMS At the time of my exam: CONSTITUTIONAL: Denies fever or chills. CARDIOVASCULAR: +shortness of breath, +orthopnea. Denies chest pain, PND or palpitations. RESPIRATORY: +cough. GASTROINTESTINAL: Denies abdominal pain, diarrhea, constipation, nausea or vomiting. MUSCULOSKELETAL: Denies myalgias. NEUROLOGIC: Denies numbness, tingling, headacbe or weakness. ENDOCRINE: Denies fatigue, weight change, polydipsia or polyurina. GENITOURINARY: Denies burning, hematuria or urgency with micturation. HEMATOLOGIC: Denies history of anemia or bleeding. PHYSICAL EXAMINATION CONSTITUTIONAL: Labored breathing HEENT: Head is normocephalic. Pupils are equal, round. Sclerae anicteric. Mucous membranes of the mouth are moist. No JVD. No carotid bruit. CHEST EXAMINATION: Lungs are clear to auscultation. No chest wall tenderness is noted on palpation or with deep breathing. HEART EXAMINATION: Regular rate and rhythm. S1, S2 heard. No murmurs, gallops or rub. ABDOMEN: Soft, nontender. Positive bowel sounds. EXTREMITIES: 2+ peripheral pulses, no lower extremity edema and no calf tenderness. SKIN: NEUROLOGIC EXAMINATION: Patient is awake, alert and oriented x3. ASSESSMENT Elevated Troponin-not indicative of a myocardial infarction. Troponin trend- 0.11-->0.10. no EKG evidence of ischemia. Patient has no chest pain Acute on chronic hypoxic was draped failure- most likely secondary to COPD exacerbation and pulmonary fibrosis. COPD Hypertension Hyperlipidemia Objective sleep apnea and unable to tolerate his CPAP PLAN Obtain 2D echocardiogram and doppler study to assess cardiac structure and function. Will start statin and aspirin Continue patient's Toprol 25mg daily Perform stress test to assess for stress induced cardiac ischemia- can be evaluated as an outpatient Further recommendations pending clinical course Nurse Practitioner note has been reviewed, I agree with a documented findings and plan of care. Patient was seen and examined. Past Medical History Past Medical History: COPD, Hyperlipidemia, Osteoarthritis (OA), Pneumonia, Rheumatoid Arthritis (RA), Sleep Apnea/CPAP/BIPAP Additional Past Medical History / Comment(s): COPD, chronic hypoxic respiratory failure previous history of pneumoperitoneum related to a perforated duodenal ulcer, repair of an umbilical hernia, chronic back pain, History of Any Multi-Drug Resistant Organisms: None Reported Past Surgical History: Orthopedic Surgery Additional Past Surgical History / Comment(s): colonoscopy, repair of a perforated duodenal ulcer and repair of an incarcerated umbilical hernia Past Anesthesia/Blood Transfusion Reactions: No Reported Reaction Past Psychological History: Anxiety, Depression Smoking Status: Former smoker Past Alcohol Use History: Daily Additional Past Alcohol Use History / Comment(s): Patient smoked 2 packs per day for 40+ years. He quit 6 years ago. He denies any illicit drug use or marijuana use. He drinks 2 beers per day but none since previous admission and December. 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 Mother Family Medical History: Cancer, CVA/TIA, Dementia, Diabetes Mellitus Additional Family Medical History / Comment(s): Mother is 88yrs old with history of dementia and colon cancer. Sister(s) Additional Family Medical History / Comment(s): Patient 3 sons with no major medical problems. Medications and Allergies Home Medications Medication Instructions Recorded Confirmed Type Albuterol Inhaler [Ventolin Hfa 2 puff INHALATION RT-QID PRN 01/12/20 12/06/20 History Inhaler] Cholecalciferol [Vitamin D3 (25 1,000 unit PO DAILY 01/12/20 12/06/20 History Mcg = 1000 Iu)] HYDROcodone/APAP 10-325MG [[place] 1 tab PO TID PRN 01/12/20 12/06/20 History 10-325] Metoprolol Succinate [Toprol XL] 25 mg PO DAILY 01/12/20 12/06/20 History Multivitamins, Thera [Multivitamin 1 tab PO DAILY 01/12/20 12/06/20 History (formulary)] Omeprazole [PriLOSEC] 40 mg PO DAILY 01/12/20 12/06/20 History Sertraline [Zoloft] 150 mg PO DAILY 01/12/20 12/06/20 History Amitriptyline HCl [Elavil] 10 mg PO HS 12/06/20 12/06/20 History Benzonatate [Tessalon Perles] 100 - 200 mg PO TID PRN 12/06/20 12/06/20 History Celecoxib [CeleBREX] 200 mg PO DAILY PRN 12/06/20 12/06/20 History Gabapentin [Neurontin] 300 mg PO HS 12/06/20 12/06/20 History predniSONE 5 mg PO Q48H 12/06/20 12/06/20 History Allergies Allergy/AdvReac Type Severity Reaction Status Date / Time amoxicillin AdvReac Nausea & Verified 12/06/20 18:26 Vomiting Physical Exam Vitals: Vital Signs Temp Pulse Pulse Resp BP BP Pulse Ox 12/07/20 12:00 98.2 F 65 20 99/56 93 L 12/07/20 11:37 86 12/07/20 11:24 84 12/07/20 08:00 98.5 F 93 20 103/57 95 12/07/20 07:20 82 12/07/20 07:11 76 12/07/20 04:00 98.1 F 80 20 87/50 94 L 12/07/20 02:00 98 20 12/06/20 23:51 98 20 96/56 94 L 12/06/20 22:08 101 H 18 12/06/20 22:02 94 18 92 L 12/06/20 21:00 97.9 F 93 18 101/70 12/06/20 19:54 98.4 F 100 24 105/63 92 L 12/06/20 19:34 92 18 94/68 97 12/06/20 18:53 97 22 102/71 97 12/06/20 17:53 96 26 H 97/68 97 12/06/20 17:01 99 26 H 89/65 95 12/06/20 16:00 101 H 24 99/63 97 12/06/20 14:59 95 12/06/20 14:53 98.1 F 110 H 19 87/51 87 L Intake and Output 12/06/20 12/07/20 12/07/20 22:59 06:59 14:59 Intake Total 240 Output Total 300 Balance -300 240 Intake: Oral 240 Output: Urine 300 Other: Voiding Method Urinal Weight 70.307 kg 57.5 kg 57.5 kg Results 12/06/20 14:58 12/06/20 14:58 Cardiac Enzymes 12/06/20 12/06/20 12/06/20 Range/Units 14:58 14:58 22:52 AST 27 (17-59) U/L Lactate Dehydrogenase 304 L (313-618) U/L Troponin I 0.075 H* 0.117 H* (0.000-0.034) ng/mL 12/07/20 Range/Units 01:16 AST (17-59) U/L Lactate Dehydrogenase (313-618) U/L Troponin I 0.103 H* (0.000-0.034) ng/mL Coagulation 12/06/20 Range/Units 14:58 PT 11.2 (9.0-12.0) sec APTT 24.0 (22.0-30.0) sec CBC 12/06/20 Range/Units 14:58 WBC 19.6 H (3.8-10.6) k/uL RBC 4.34 (4.30-5.90) m/uL Hgb 13.2 (13.0-17.5) gm/dL Hct 39.2 (39.0-53.0) % Plt Count 321 (150-450) k/uL Comprehensive Metabolic Panel 12/06/20 Range/Units 14:58 Sodium 132 L (137-145) mmol/L Potassium 4.4 (3.5-5.1) mmol/L Chloride 97 L (98-107) mmol/L Carbon Dioxide 28 (22-30) mmol/L BUN 20 (9-20) mg/dL Creatinine 0.95 (0.66-1.25) mg/dL Glucose 110 H (74-99) mg/dL Calcium 8.3 L (8.4-10.2) mg/dL AST 27 (17-59) U/L ALT 17 (4-49) U/L Alkaline Phosphatase 72 (38-126) U/L Total Protein 6.5 (6.3-8.2) g/dL Albumin 3.3 L (3.5-5.0) g/dL Current Medications Generic Name Dose Route Start Last Admin Trade Name Freq PRN Reason Stop Dose Admin Acetaminophen 650 mg 12/06/20 14:54 Acetaminophen Tab 325 Mg Tab PO Q4HR PRN Fever>101 Hydrocodone Bitart/Acetaminophen 1 each 12/06/20 23:20 12/07/20 09:32 Hydrocodone/Apap 10-325mg 1 Each Tab PO 1 each TID PRN Administration Pain Albuterol Sulfate 2.5 mg 12/07/20 05:53 Albuterol Nebulized 2.5 Mg/3 Ml INHALATION RT-QID PRN Shortness Of Breath Albuterol/Ipratropium 3 ml 12/07/20 00:00 12/07/20 11:19 Ipratropium-Albuterol 3 Ml Neb INHALATION 3 ml Q6HR LUCAS Administration Albuterol/Ipratropium 3 ml 12/07/20 10:56 Ipratropium-Albuterol 3 Ml Neb INHALATION RT-Q2H PRN Shortness Of Breath Or Wheezing Amitriptyline HCl 10 mg 12/07/20 21:00 Amitriptyline Hcl 10 Mg Tab PO HS LUCAS Azithromycin 500 mg 12/07/20 11:00 Azithromycin 500 Mg Tab PO DAILY LUCAS Benzonatate 100 mg 12/07/20 05:53 Benzonatate 100 Mg Cap PO TID PRN Cough Budesonide 1 mg 12/07/20 20:00 Budesonide 1 Mg/2 Ml Nebu INHALATION RT-BID LUCAS Cholecalciferol 25 mcg 12/07/20 09:00 12/07/20 09:32 Cholecalciferol 25 Mcg (1000 Iu) Tablet PO 25 mcg DAILY LUCAS Administration Gabapentin 300 mg 12/07/20 21:00 Gabapentin 300 Mg Cap PO HS LUCAS Heparin Sodium (Porcine) 5,000 unit 12/07/20 16:00 Heparin Sodium,Porcine/Pf 5,000 Unit/0.5 Ml Syringe SQ Q8HR LUCAS Sodium Chloride 1,000 mls @ 100 mls/hr 12/06/20 17:15 12/07/20 04:30 Saline 0.9% IV Not Given .Q10H LUCAS Ceftriaxone Sodium 1 gm/ 50 mls @ 100 mls/hr 12/07/20 11:00 Sodium Chloride IVPB Q24H LUCAS Insulin Aspart 0 unit 12/07/20 12:30 Insulin Aspart (Novolog) 100 Unit/Ml Vial SQ ACHS [facility] Protocol Methylprednisolone Sodium Succinate 60 mg 12/07/20 06:00 12/07/20 06:32 Methylprednisolone Sod Succi 125 Mg/2 Ml Vial IV 60 mg Q6HR LUCAS Administration Metoprolol Succinate 25 mg 12/07/20 09:00 12/07/20 09:32 Metoprolol Succinate (Er) 25 Mg Tab.Er.24h PO 25 mg DAILY LUCAS Administration Multivitamins 1 each 12/07/20 09:00 12/07/20 09:32 Multivitamins, Thera 1 Each Tab PO 1 each DAILY LUCAS Administration Naloxone HCl 0.2 mg 12/06/20 18:35 Naloxone 0.4 Mg/Ml 1 Ml Vial IV Q2M PRN Opioid Reversal Pantoprazole Sodium 40 mg 12/07/20 07:30 12/07/20 06:32 Pantoprazole 40 Mg Tablet PO 40 mg [id number] LUCAS Administration Sertraline HCl 150 mg 12/07/20 09:00 12/07/20 09:31 Sertraline 50 Mg Tab PO 150 mg DAILY LUCAS Administration Intake and Output 12/06/20 12/07/20 12/07/20 22:59 06:59 14:59 Intake Total 240 Output Total 300 Balance -300 240 Intake: Oral 240 Output: Urine 300 Other: Voiding Method Urinal Weight 70.307 kg 57.5 kg 57.5 kg Patient Weight 12/08/20 06:59 Weight 57.5 kg 12/06/20 14:58 12/06/20 14:58
--- NOTE | 2020-12-07 16:53 | P.CNPUL ---
History of Present Illness Consult date: 12/07/20 Requesting physician: Cole Kirk Reason for consult: dyspnea, abnormal CXR/CT Chief complaint: Shortness of breath, fever, fatigue History of present illness: The patient is a very pleasant 70-year-old gentleman with a long-term history of COPD and pulmonary fibrosis. Based on his pulmonary function test in 2017 he has an FVC of 72% and FEV1 of 46% and he has been steroid dependent for the past few years taking prednisone 5 milligrams on a daily basis. He has also underlying rheumatoid arthritis and previously he was taking immunosuppression with Humira none for now. His oxygen dependent at 3 L/m per nasal cannula at home. He presented to the emergency room yesterday with complaints of increasing fatigue, fever, worsening shortness of breath. He received one his second dose of CoVID vaccine recently. Chest x-ray reveals underlying pulmonary fibrosis. Increase passage density in the left lung base. CT angiogram revealed diffuse COPD with diffuse bilateral infiltrates. No evidence of central pulmonary embolism. Distal branches difficult to assess. There is multiple severe compression fractures with retropulsion involving the mid and thoracic spine. White count 19.6. Hemoglobin 13.2. D-dimer 0.81. Sodium 132. Potassium 4.4. Creatinine 0.95. C-reactive protein 89. LDH 304. Troponin 0.075, 0.117, 0.103. Mack virus not detected. Arterial blood gas 700% FiO2 revealed a P O2 of 91, pCO2 56, pH 7.30. He is seen today in consultation on the selective care unit. Currently awake and alert in no acute distress. Requiring 9 L high flow nasal cannula to maintain O2 saturations in the 90s. He is afebrile. Hemodynamically stable. He's been initiated on DuoNeb inhalations, Pulmicort inhalations, IV Solu-Medrol. Antibiotics in the form of vancomycin and ceftriaxone. Heparin for DVT prophylaxis. Review of Systems REVIEW OF SYSTEMS: CONSTITUTIONAL: Positive for fatigue, fever. Denies any recent significant weight loss or weight gain. EYES: Denies change in vision. EARS, NOSE, MOUTH, THROAT: Denies headaches, denies sore throat. CARDIOVASCULAR: Denies chest pain, palpitations or syncopal episodes. RESPIRATORY: Positive for shortness of breath, cough, congestion no hemoptysis. GASTROINTESTINAL: Denies change in appetite, denies abdominal pain GENITOURINARY: Denies hematuria, denies infections. MUSKULOSKELETAL: Denies pain, denies swelling. INTEGUMENTARY: Denies rash, denies eczema. NEUROLOGICAL: Denies recent memory loss, no recent seizure activity. PSYCHIATRIC: Denies anxiety, denies depression. HEMATOLOGIC/LYMPHATIC: Denies anemia, denies enlarged lymph nodes. Past Medical History Past Medical History: COPD, Hyperlipidemia, Osteoarthritis (OA), Pneumonia, Rheumatoid Arthritis (RA), Sleep Apnea/CPAP/BIPAP Additional Past Medical History / Comment(s): COPD, chronic hypoxic respiratory failure previous history of pneumoperitoneum related to a perforated duodenal ulcer, repair of an umbilical hernia, chronic back pain, History of Any Multi-Drug Resistant Organisms: None Reported Past Surgical History: Orthopedic Surgery Additional Past Surgical History / Comment(s): colonoscopy, repair of a perforated duodenal ulcer and repair of an incarcerated umbilical hernia Past Anesthesia/Blood Transfusion Reactions: No Reported Reaction Past Psychological History: Anxiety, Depression Smoking Status: Former smoker Past Alcohol Use History: Daily Additional Past Alcohol Use History / Comment(s): Patient smoked 2 packs per day for 40+ years. He quit 6 years ago. He denies any illicit drug use or marijuana use. He drinks 2 beers per day but none since previous admission and December. 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 Mother Family Medical History: Cancer, CVA/TIA, Dementia, Diabetes Mellitus Additional Family Medical History / Comment(s): Mother is 88yrs old with history of dementia and colon cancer. Sister(s) Additional Family Medical History / Comment(s): Patient 3 sons with no major medical problems. Medications and Allergies Home Medications Medication Instructions Recorded Confirmed Type Albuterol Inhaler [Ventolin Hfa 2 puff INHALATION RT-QID PRN 01/12/20 12/06/20 History Inhaler] Cholecalciferol [Vitamin D3 (25 1,000 unit PO DAILY 01/12/20 12/06/20 History Mcg = 1000 Iu)] HYDROcodone/APAP 10-325MG [[place] 1 tab PO TID PRN 01/12/20 12/06/20 History 10-325] Metoprolol Succinate [Toprol XL] 25 mg PO DAILY 01/12/20 12/06/20 History Multivitamins, Thera [Multivitamin 1 tab PO DAILY 01/12/20 12/06/20 History (formulary)] Omeprazole [PriLOSEC] 40 mg PO DAILY 01/12/20 12/06/20 History Sertraline [Zoloft] 150 mg PO DAILY 01/12/20 12/06/20 History Amitriptyline HCl [Elavil] 10 mg PO HS 12/06/20 12/06/20 History Benzonatate [Tessalon Perles] 100 - 200 mg PO TID PRN 12/06/20 12/06/20 History Celecoxib [CeleBREX] 200 mg PO DAILY PRN 12/06/20 12/06/20 History Gabapentin [Neurontin] 300 mg PO HS 12/06/20 12/06/20 History predniSONE 5 mg PO Q48H 12/06/20 12/06/20 History Allergies Allergy/AdvReac Type Severity Reaction Status Date / Time amoxicillin AdvReac Nausea & Verified 12/06/20 18:26 Vomiting Physical Exam Vitals: Vital Signs Temp Pulse Pulse Resp BP BP Pulse Ox 12/07/20 16:00 98.2 F 88 22 106/60 91 L 12/07/20 12:00 98.2 F 65 20 99/56 93 L 12/07/20 11:37 86 12/07/20 11:24 84 12/07/20 08:00 98.5 F 93 20 103/57 95 12/07/20 07:20 82 12/07/20 07:11 76 12/07/20 04:00 98.1 F 80 20 87/50 94 L 12/07/20 02:00 98 20 12/06/20 23:51 98 20 96/56 94 L 12/06/20 22:08 101 H 18 12/06/20 22:02 94 18 92 L 12/06/20 21:00 97.9 F 93 18 101/70 12/06/20 19:54 98.4 F 100 24 105/63 92 L 12/06/20 19:34 92 18 94/68 97 12/06/20 18:53 97 22 102/71 97 12/06/20 17:53 96 26 H 97/68 97 12/06/20 17:01 99 26 H 89/65 95 Intake and Output 12/07/20 12/07/20 12/07/20 06:59 14:59 22:59 Intake Total 480 Output Total 300 Balance -300 480 Intake: Oral 480 Output: Urine 300 Other: Voiding Method Urinal Weight 57.5 kg 57.5 kg GENERAL EXAM: Alert, pleasant 70-year-old gentleman, 9 L nasal cannula, comfortable in no apparent distress. HEAD: Normocephalic. EYES: Normal reaction of pupils, equal size. NOSE: Clear with pink turbinates. THROAT: No erythema or exudates. NECK: No masses, no JVD. CHEST: No chest wall deformity. LUNGS: Equal air entry with coarse crackles in the posterior bases. CVS: S1 and S2 normal with no audible murmur, regular rhythm. ABDOMEN: No hepatosplenomegaly, normal bowel sounds, no guarding or rigidity. SPINE: No scoliosis or deformity SKIN: No rashes CENTRAL NERVOUS SYSTEM: No focal deficits, tone is normal in all 4 extremities. EXTREMITIES: There is no peripheral edema. No clubbing, no cyanosis. Peripheral pulses are intact. Results - Laboratory Findings CBC and BMP: 12/06/20 14:58 12/06/20 14:58 ABG ABG pH 7.30 (7.35-7.45) L 12/06/20 15:43 ABG pCO2 56 mmHg (35-45) H 12/06/20 15:43 ABG pO2 91 mmHg (83-108) 12/06/20 15:43 ABG O2 Saturation 95.9 % (94-97) 12/06/20 15:43 PT/INR, D-dimer PT 11.2 sec (9.0-12.0) 12/06/20 14:58 INR 1.1 (<1.2) 12/06/20 14:58 D-Dimer 0.81 mg/L FEU (<0.60) H 12/06/20 14:58 Abnormal lab findings: Abnormal Labs 12/06/20 12/06/20 12/06/20 14:58 14:58 14:58 WBC 19.6 H Neutrophils # 16.5 H Monocytes # 1.1 H D-Dimer 0.81 H ABG pH ABG pCO2 ABG HCO3 ABG Total CO2 Sodium 132 L Chloride 97 L Glucose 110 H POC Glucose (mg/dL) Calcium 8.3 L Lactate Dehydrogenase 304 L Troponin I C-Reactive Protein 89.2 H Albumin 3.3 L Procalcitonin 12/06/20 12/06/20 12/06/20 14:58 14:58 15:43 WBC Neutrophils # Monocytes # D-Dimer ABG pH 7.30 L ABG pCO2 56 H ABG HCO3 28 H ABG Total CO2 30 H Sodium Chloride Glucose POC Glucose (mg/dL) Calcium Lactate Dehydrogenase Troponin I 0.075 H* C-Reactive Protein Albumin Procalcitonin 1.11 H 12/06/20 12/07/20 12/07/20 22:52 01:16 12:00 WBC Neutrophils # Monocytes # D-Dimer ABG pH ABG pCO2 ABG HCO3 ABG Total CO2 Sodium Chloride Glucose POC Glucose (mg/dL) 141 H Calcium Lactate Dehydrogenase Troponin I 0.117 H* 0.103 H* C-Reactive Protein Albumin Procalcitonin - Diagnostic Findings Chest x-ray: image reviewed CT scan - chest: image reviewed Assessment and Plan Assessment: 1 Acute on chronic hypoxic respiratory failure secondary to acute exacerbation of COPD, suspect underlying community acquired pneumonia, pulmonary fibrosis. Mack virus not detected, received second dose of vaccine 2 Chronic hypoxic respiratory failure on home oxygen at 3 L/m, steroid-dependent 5 mg daily 3 Advanced COPD/pulmonary fibrosis 4 Troponin leak, suspect oxygen supply and demand mismatch 5 Cushingoid features secondary to chronic steroid use 6 History of rheumatoid arthritis 7 Obstructive sleep apnea, not on CPAP 8 Chronic back pain 9 Hyperlipidemia 10 Osteoarthritis Plan: The patient was seen and evaluated by Dr. Weaver Discontinue vancomycin Continue ceftriaxone, add azithromycin Continue DuoNeb inhalations, Pulmicort inhalations, IV Solu-Medrol We will continue to follow and make further recommendations based on his clinical status I, the cosigning physician, performed a history & physical examination of the patient. Lungs sounds with coarse crackles in the bilateral bases. Maintaining O2 saturations in the 90s on 9 L/m per nasal cannula. I discussed the assessment and plan of care with my nurse practitioner, Priscilla Mike. I attest to the above consultation as dictated by her.
[2020-12-07 17:03] LABS: Glucose,Whole Blood 166 mg/dL (75-99)
[2020-12-07] MEDS: ATORVASTATIN 40 MG TAB PO SCH (20:07)
[2020-12-07] MEDS: AMITRIPTYLINE HCL 10 MG TAB PO SCH (20:07)
[2020-12-07] MEDS: GABAPENTIN 300 MG CAP PO SCH (20:07)
[2020-12-07 20:51] LABS: Glucose,Whole Blood 133 mg/dL (75-99)
[2020-12-07] MEDS: BUDESONIDE 1 MG/2 ML NEBU INHALATION SCH (21:40)
[2020-12-08] MEDS: IPRATROPIUM-ALBUTEROL 3 ML NEB INHALATION SCH ×5 (01:26→20:17)
[2020-12-08 06:01] LABS: Glucose,Whole Blood 134 mg/dL (75-99)
[2020-12-08] MEDS: methylPREDNISolone SOD SUCCI 125 MG/2 ML VIAL IV SCH ×2 (06:30→12:01)
[2020-12-08] MEDS: INSULIN ASPART (NovoLOG) 100 UNIT/ML VIAL SQ SCH ×4 (06:30→22:11)
[2020-12-08] MEDS: PANTOPRAZOLE 40 MG TABLET PO SCH (06:30)
[2020-12-08] MEDS: BUDESONIDE 1 MG/2 ML NEBU INHALATION SCH ×2 (08:35→20:17)
[2020-12-08] MEDS: BENZONATATE 100 MG CAP PO PRN ×2 (08:54→17:52)
[2020-12-08] MEDS: HEPARIN SODIUM,PORCINE/PF 5,000 UNIT/0.5 ML SYRINGE SQ SCH ×3 (08:54→22:54)
[2020-12-08] MEDS: CHOLECALCIFEROL 25 MCG (1000 IU) TABLET PO SCH (08:55)
[2020-12-08] MEDS: SERTRALINE 50 MG TAB PO SCH (08:55)
[2020-12-08] MEDS: MULTIVITAMINS, THERA 1 EACH TAB PO SCH (08:55)
[2020-12-08] MEDS: HYDROcodone/APAP 10-325MG 1 EACH TAB PO PRN ×2 (08:55→17:50)
[2020-12-08] MEDS: METOPROLOL SUCCINATE (ER) 25 MG TAB.ER.24H PO SCH (08:55)
[2020-12-08] MEDS: ASPIRIN 81 MG PO SCH (09:28)
[2020-12-08] MEDS: AZITHROMYCIN 500 MG TAB PO SCH (09:28)
[2020-12-08] MEDS: SODIUM CHLORIDE 0.9% 1,000 ML IV SCH (09:28)
--- NOTE | 2020-12-08 11:01 | ECHOF ---
Referral Reason:LVF MEASUREMENTS -------- HEIGHT: 170.2 cm WEIGHT: 57.2 kg BP: IVSd: 1.3 cm (0.6 - 1.1) LVIDd: 3.0 cm (3.9 - 5.3) LVPWd: 1.0 cm (0.6 - 1.1) EDV(Teich): 35 ml IVSs: 2.0 cm LVIDs: 1.6 cm LVPWs: 1.6 cm %IVS Thck: 56 % ESV(Teich): 7 ml EF(Teich): 80 % %FS: 48 % SV(Teich): 28 ml LVOT Diam: 1.7 cm IVC: 18.52 mm LALs A4C: 5.3 cm LAAs A4C: 14.7 cm LAESV A-L A4C: 35 ml LAESV MOD A4C: 32 ml LALs A2C: 5.8 cm LAAs A2C: 19.0 cm LAESV A-L A2C: 53 ml LAESV MOD A2C: 50 ml LAESV(A-L): 45 ml LAESV Index (A-L): 27.06 ml/m Ao Diam: 3.4 cm (2.0 - 3.7) LA Diam: 3.2 cm (2.7 - 3.8) AV Cusp: 1.1 cm (1.5 - 2.6) EPSS: 0.3 cm MV E Maximo: 1.14 m/s MV DecT: 160 ms MV Dec [place]: 7.1 m/s MV A Maximo: 1.23 m/s MV E/A Ratio: 0.92 MV PHT: 46 ms MR Vmax: 1.48 m/s MR maxP.79 mmHg LVOT Vmax: 0.72 m/s LVOT maxP.05 mmHg AV Vmax: 1.72 m/s AV maxP.86 mmHg CORNEL Vmax, Pt: 0.9 cm AV Vmax: 1.81 m/s AV Vmean: 1.20 m/s AV maxP.10 mmHg AV meanP.80 mmHg AV Env.Ti: 291 ms AV VTI: 34.8 cm CORNEL Vmax, Pt: 0.9 cm AR Vmax: 3.16 m/s AR maxP.99 mmHg AR PHT: 1569 ms AR Dec Time: 5411 ms AR Dec [place]: 0.6 m/s TR Vmax: 3.57 m/s TR maxP.03 mmHg RAP: 5.00 mmHg RVSP: 56.03 mmHg MV EF SLOPE: 110.63 mm/s (70 - 150) MV EXCURSION: 16.31 mm (> 18.000) FINDINGS -------- This was a technically adequate study. The left ventricular size is normal. There is mild concentric left ventricular hypertrophy. Overa ll left ventricular systolic function is normal with, an EF between 55 - 60 %. Increased LAP Grade 2 Diastolic Dysfunction. The right ventricle is normal in size. The left atrial size is normal. Normal LA size by volume 22+/-6 ml/m2. The right atrial size is normal. Aortic valve is trileaflet and is mildly thickened. There is mild aortic valve sclerosis. Trace a mount of aortic regurgitation. Peak/mean gradient across the Aortic Valve is 13.10mmHg / 6.80mmHg. The mitral valve is normal. The mitral valve leaflets are mildly thickened. Mild mitral annular c alcification present. Mild mitral regurgitation is present. The tricuspid valve appears structurally normal. Mild tricuspid regurgitation present. There is m oderate pulmonary hypertension. The right ventricular systolic pressure, as measured by Doppler, is 56.03mmHg. There is no pulmonic regurgitation present. The aortic root size is normal. Normal inferior vena cava with normal inspiratory collapse consistent with estimated right atrial pre ssure of 5 mmHg. There is no pericardial effusion. CONCLUSIONS -------- 1. The left ventricular size is normal. 2. There is mild concentric left ventricular hypertrophy. 3. Overall left ventricular systolic function is normal with, an EF between 55 - 60 %. 4. Increased LAP Grade 2 Diastolic Dysfunction. 5. Aortic valve is trileaflet and is mildly thickened. 6. There is mild aortic valve sclerosis. 7. Trace amount of aortic regurgitation. 8. Peak/mean gradient across the Aortic Valve is 13.10mmHg / 6.80mmHg. 9. The mitral valve leaflets are mildly thickened. 10. Mild mitral annular calcification present. 11. Mild mitral regurgitation is present. 12. Mild tricuspid regurgitation present. 13. There is moderate pulmonary hypertension. 14. The right ventricular systolic pressure, as measured by Doppler, is 56.03mmHg. 15. There is no pericardial effusion. GASOLINE TESTER: Eva Alejo RDCS
[2020-12-08 12:00] LABS: Glucose,Whole Blood 168 mg/dL (75-99)
--- NOTE | 2020-12-08 12:04 | P.PN ---
Subjective Progress Note Date: 12/08/20 Principal diagnosis: Abnormal cardiac enzymes This is a pleasant 70-year-old gentleman with known chronic hypoxic respiratory failure on oxygen at home continuously as well as obstructive sleep apnea as well as multiple comorbid conditions including hypertension and dyslipidemia with consulted to see for abnormal cardiac enzymes. He presented to the hospital with increasing shortness of breath with exertion but no symptoms of chest pain or chest discomfort. We felt that the abnormal cardiac enzymes is related to type II CO with oxygen demands mismatch. We decided to treat the patient medically. The patient was seen today. He stated that the shortness of breath has improved slightly. He is not experiencing any symptoms of chest pain or chest discomfort and no dizziness or lightheadedness. He has been maintaining normal sinus mechanism. Vitals are stable overall. He underwent an echocardiogram which revealed normal/preserved left ventricular systolic function with evidence of mild aortic stenosis. Currently he is on aspirin but he is refusing to take aspirin in view of the "stomach ache". We are going to stop the aspirin and start the patient on Plavix as an alternative. Beside that he is on anti- ischemic medication was beta marce. Also he is on high intensity statin. Objective - Vital Signs Vital signs: Vital Signs Temp 98.4 F 12/08/20 08:30 Pulse 88 12/08/20 11:29 Resp 24 12/08/20 08:30 BP 120/71 12/08/20 08:30 Pulse Ox 94 L 12/08/20 08:30 Intake & Output 12/07/20 12/08/20 12/08/20 18:59 06:59 18:59 Intake Total 480 240 240 Output Total 400 600 Balance 480 -160 -360 Weight 57.5 kg 60.5 kg Intake: Oral 480 240 240 Output: Urine 400 600 Other: Voiding Method Urinal - Constitutional General appearance: Present: no acute distress - Respiratory Respiratory: bilateral: rhonchi - Cardiovascular Rhythm: regular Heart sounds: normal: S1, S2 Abnormal Heart Sounds: Present: systolic murmur - Labs CBC & Chem 7: 12/06/20 14:58 12/06/20 14:58 Labs: Abnormal Lab Results - Last 24 Hours (Table) 12/07/20 12/07/20 12/07/20 Range/Units 12:00 16:59 20:49 POC Glucose (mg/dL) 141 H 166 H 133 H (75-99) mg/dL 12/08/20 12/08/20 Range/Units 05:57 11:56 POC Glucose (mg/dL) 134 H 168 H (75-99) mg/dL Microbiology - Last 24 Hours (Table) 12/07/20 17:17 Gram Stain - Preliminary Sputum Sputum Culture - Preliminary 12/06/20 15:34 Blood Culture - Preliminary Blood No Growth after 24 hours 12/06/20 15:34 Blood Culture - Preliminary Blood No Growth after 24 hours Assessment and Plan Assessment: Assessment #1 acute on chronic hypoxic respiratory failure #2 acute exacerbation of COPD #3 pulmonary fibrosis #4 abnormal troponin likely to be type II CO #5 multiple comorbid conditions Plan #1 continue the conservative medical approach for the abnormal cardiac enzymes Number to DC aspirin and start the patient on Plavix #3 continue beta marce as well as a statin #4 the echo was reviewed and shows normal LV function with mild aortic stenosis #5 consider noninvasive testing like myocardial perfusion imaging stress test as an outpatient unless there is a change in the clinical situation #6 follow-up with the patient
--- NOTE | 2020-12-08 12:24 | P.PN ---
Subjective Progress Note Date: 12/08/20 HISTORY OF PRESENT ILLNESS This is a 70-year-old male patient of Dr. Holbrook and Dr. Mireles with past medical history of advanced steroid-dependent COPD, hyperlipidemia, rheumatoid arthritis, obstructive sleep apnea unable to tolerate CPAP, chronic hypoxic respiratory failure on home O2 at 3 L nasal cannula, generalized osteoarthritis, chronic back pain pseudomonas in sputum on previous admission secondary to colonization or pseudomonal pneumonia. Known FVC of 72% and FEV1 of 46%. History of perforated duodenal ulcer status post exploratory laparotomy with repair of perforated duodenal ulcer and repair of incarcerated umbilical hernia. Patient states that he has redness of breath but became significantly worse yesterday. He states he recently received medication from Dr. Cohen that seemed to help a little only. He denies having any fever or chills. No wheezing. He complains of sputum production. He denies any known sick contacts. Patient came into [facility] emergency center for evaluation. Patient was afebrile, heart rate in 110, blood pressure 87/51, pulse ox 87% on 5 L nasal cannula. EKG sinus rhythm with occasional PAC. Lab work revealed WBC 19.6, hemoglobin 13.2, platelet count 321. Sodium 132, potassium 4.4, chloride 97, CO2 28, BUN 20, creatinine 0.95. Blood sugar 110. LDH 304, CRP 89.2. BNP 3170. Pro-calcitonin 1.11. Troponins were 0.075, 0.117, 0.103. Chest x-ray shows underlying pulmonary fibrosis. Increased patchy density however is noted at the left lung base and superimposed pneumonia is difficult to exclude. CTA of the chest revealed diffuse COPD with diffuse bilateral infiltrates. No evidence of pulmonary embolism. Distal branches somewhat limited. Severe compression fractures involving the mid and upper thoracic spine. Patient was started on antibiotics, IV steroids, status post 2 L of IV fluid, admitted to the cardiac stepdown unit and consult in place with pulmonary medicine and card iology. 12/08: His been afebrile, heart rate 82, respiratory rate 24, blood pressure 99/61, pulse ox 94% on 9 L high flow nasal cannula. Blood sugars are running between 133 and 166. Blood culture showing no growth at 24 hours however patient states received a call yesterday afternoon that there was gram-positive cocci in blood culture. She was given 1 dose of IV vancomycin. Blood cultures are currently showing no growth. Sputum culture is in progress. Patient has been seen by pulmonary medicine with recommendations for ceftriaxone and azithromycin. Patient has been seen by cardiology and started on statin and aspirin, plan for stress test as an outpatient. Echocardiogram is pending. Patient's breathing status is stable and improving. Transition Solu-Medrol to 40 mg every 8 hours. Anticipate probable discharge home tomorrow. REVIEW OF SYSTEMS Constitutional: No fever, no chills, no night sweats. No weight change. No weakness, fatigue or lethargy. No daytime sleepiness. EENT: No headache. No blurred vision or double vision, no loss of vision. No loss of Hearing, no ringing in the ears, no dizziness. No nasal drainage or congestion. No epistaxis. No sore throat. Lungs: Reports shortness of breath, Reports cough, Reports sputum production. No wheezing. Cardiovascular: No chest pain, no lower extremity edema. No palpitations. No paroxysmal nocturnal dyspnea. No orthopnea. No lightheadedness or dizziness. No syncopal episodes. Abdominal: No abdominal pain. No nausea, vomiting. No diarrhea. No constipation. No bloody or tarry stools.. No loss of appetite. Genitourinary: No dysuria, increased frequency, urgency. No urinary retention. Musculoskeletal: No myalgias. No muscle weakness, no gait dysfunction, no frequent falls. No back pain. No neck pain. Integumentary: No wounds, no lesions. No rash or pruritus. No unusual bruising. No change in hair or nails. Neurologic: No aphasia. No facial droop. No change in mentation. No head injury. No headache. No paralysis. No paresthesia. Psychiatric: No depression. No anxiety. No mood swings. Endocrine: Mildly abnormal blood sugars. No weight change. PHYSICAL EXAMINATION Gen: This is 70-year-old male. Patient is resting in bed appears to be comfortable and in no acute distress. HEENT: Head is atraumatic, normocephalic. Pupils equal, round. Sclerae is anicteric. NECK: Supple. No JVD. No lymphadenopathy. No thyromegaly. LUNGS: Coarse crackles bilaterally. Mild expiratory wheezing. No intercostal retractions. HEART: Regular rate and rhythm. No murmur. Sinus tachycardia. ABDOMEN: Soft. Bowel sounds are present. No masses. No tenderness. EXTREMITIES: No pedal edema. No calf tenderness. NEUROLOGICAL: Patient is awake, alert and oriented x3. Cranial nerves 2 through 12 are grossly intact. ASSESSMENT AND PLAN 1. Acute on chronic hypoxic respiratory failure secondary to COPD exacerbation and underlying pulmonary fibrosis with possible pneumonia bilaterally. Patient admitted to the hospital, consult with Dr. Weaver, continue oxygen therapy, continue DuoNeb treatments 4 times daily and as needed, azithromycin, ceftriaxone 1 g IV piggyback daily, Tessalon Perles, Pulmicort increased to 1 mg twice daily, ceftriaxone, Solu-Medrol decreased to 40 mg IV every 8 hours. 2. Advanced COPD with pulmonary fibrosis, steroid dependent and chronic hypoxic and hypercapnic respiratory failure on home O2 at 3 L. Continue as in #1. 3. Elevated troponins without chest pain. Cardiology consult. Echocardiogram ordered. 4. Hypertension. Continue Toprol-XL 25 mg daily. 5. Rheumatoid arthritis, stable. 6. Hyperlipidemia. 7. Obstructive sleep apnea unable to tolerate CPAP. 8. Chronic back pain and generalized osteoarthritis. Continue [place] as needed, gabapentin 300 mg at bedtime 9. History of perforated duodenal ulcer status post exploratory laparotomy with repair of perforated duodenal ulcer and repair of incarcerated umbilical hernia. 10. Generalized anxiety disorder and recurrent depression. Continue Zoloft 50 mg daily, Elavil 10 mg at bedtime. 11. DVT prophylaxis. Heparin subcu. 10. GI prophylaxis. Continue Protonix daily. 12. Insomnia. Continue Elavil 10 mg at bedtime.. 13. Chronic compression fracture. Continue current pain management with [place]. 14. Reported positive blood culture with gram positive cocci. Patient received 1 dose of IV vancomycin. Subsequently blood cultures no growth. DISCHARGE PLAN Most likely home with [facility]NA on Saturday. Impression and plan of care have been directed as dictated by the signing physician. [place] Sal[place] nurse practitioner acting as scribe for signing physician. Objective - Vital Signs Vital signs: Vital Signs Temp 98.2 F 12/07/20 20:00 Pulse 82 12/08/20 04:00 Resp 24 12/08/20 04:00 BP 99/61 12/08/20 04:00 Pulse Ox 94 L 12/08/20 04:00 Intake & Output 12/07/20 12/08/20 12/08/20 18:59 06:59 18:59 Intake Total 480 240 Output Total 400 Balance 480 -160 Weight 57.5 kg 60.5 kg Intake: Oral 480 240 Output: Urine 400 Other: Voiding Method Urinal - Labs CBC & Chem 7: 12/06/20 14:58 12/06/20 14:58 Labs: Abnormal Lab Results - Last 24 Hours (Table) 12/07/20 12/07/20 12/07/20 Range/Units 12:00 16:59 20:49 POC Glucose (mg/dL) 141 H 166 H 133 H (75-99) mg/dL 12/08/20 Range/Units 05:57 POC Glucose (mg/dL) 134 H (75-99) mg/dL Microbiology - Last 24 Hours (Table) 12/07/20 17:17 Gram Stain - Preliminary Sputum Sputum Culture - Preliminary 12/06/20 15:34 Blood Culture - Preliminary Blood No Growth after 24 hours 12/06/20 15:34 Blood Culture - Preliminary Blood No Growth after 24 hours
--- NOTE | 2020-12-08 12:58 | P.PN ---
Subjective Progress Note Date: 12/08/20 Principal diagnosis: Acute on chronic hypoxemic respiratory failure secondary to COPD exacerbation/pulmonary fibrosis The patient is a very pleasant 70-year-old gentleman with a long-term history of COPD and pulmonary fibrosis. Based on his pulmonary function test in 2017 he gonzalez s an FVC of 72% and FEV1 of 46% and he has been steroid dependent for the past few years taking prednisone 5 milligrams on a daily basis. He has also underlying rheumatoid arthritis and previously he was taking immunosuppression with Humira none for now. His oxygen dependent at 3 L/m per nasal cannula at home. He presented to the emergency room yesterday with complaints of increasing fatigue, fever, worsening shortness of breath. He received one his second dose of CoVID vaccine recently. Chest x-ray reveals underlying pulmonary fibrosis. Increase passage density in the left lung base. CT angiogram revealed diffuse COPD with diffuse bilateral infiltrates. No evidence of central pulmonary embolism. Distal branches difficult to assess. There is multiple severe compression fractures with retropulsion involving the mid and thoracic spine. White count 19.6. Hemoglobin 13.2. D-dimer 0.81. Sodium 132. Potassium 4.4. Creatinine 0.95. C-reactive protein 89. LDH 304. Troponin 0. 075, 0.117, 0.103. Mack virus not detected. Arterial blood gas 700% FiO2 revealed a P O2 of 91, pCO2 56, pH 7.30. He is seen today in consultation on the selective care unit. Currently awake and alert in no acute distress. Requiring 9 L high flow nasal cannula to maintain O2 saturations in the 90s. He is afebrile. Hemodynamically stable. He's been initiated on DuoNeb inhalations, Pulmicort inhalations, IV Solu-Medrol. Antibiotics in the form of vancomycin and ceftriaxone. Heparin for DVT prophylaxis. The patient is seen today 12/08/2020 follow-up on the selective care unit. He is currently sitting up in a chair at the bedside. Awake and alert in no acute distress. He is down to 6 L high flow nasal cannula to maintain O2 saturations in the 90s. Continue ferrous shortness of breath with minimal exertion, loose cough. Sputum culture pending. Blood cultures reveal no growth to date. Continued on DuoNeb inhalations, IV Solu-Medrol, ceftriaxone and azithromycin. Objective - Vital Signs Vital signs: Vital Signs Temp 97.6 F 12/08/20 12:00 Pulse 94 12/08/20 12:00 Resp 22 12/08/20 12:00 BP 115/65 12/08/20 12:00 Pulse Ox 90 L 12/08/20 12:00 Intake & Output 12/07/20 12/08/20 12/08/20 18:59 06:59 18:59 Intake Total 480 240 240 Output Total 400 600 Balance 480 -160 -360 Weight 57.5 kg 60.5 kg Intake: Oral 480 240 240 Output: Urine 400 600 Other: Voiding Method Urinal - Exam GENERAL EXAM: Alert, pleasant 70-year-old gentleman, 6 L nasal cannula, comfortable in no apparent distress. HEAD: Normocephalic. EYES: Normal reaction of pupils, equal size. NOSE: Clear with pink turbinates. THROAT: No erythema or exudates. NECK: No masses, no JVD. CHEST: No chest wall deformity. LUNGS: Equal air entry with coarse crackles in the posterior bases. CVS: S1 and S2 normal with no audible murmur, regular rhythm. ABDOMEN: No hepatosplenomegaly, normal bowel sounds, no guarding or rigidity. SPINE: No scoliosis or deformity SKIN: No rashes CENTRAL NERVOUS SYSTEM: No focal deficits, tone is normal in all 4 extremities. EXTREMITIES: There is no peripheral edema. No clubbing, no cyanosis. Peripheral pulses are intact. - Labs CBC & Chem 7: 12/06/20 14:58 12/06/20 14:58 Labs: Abnormal Lab Results - Last 24 Hours (Table) 12/07/20 12/07/20 12/08/20 Range/Units 16:59 20:49 05:57 POC Glucose (mg/dL) 166 H 133 H 134 H (75-99) mg/dL 12/08/20 Range/Units 11:56 POC Glucose (mg/dL) 168 H (75-99) mg/dL Microbiology - Last 24 Hours (Table) 12/07/20 17:17 Gram Stain - Preliminary Sputum Sputum Culture - Preliminary 12/06/20 15:34 Blood Culture - Preliminary Blood No Growth after 24 hours 12/06/20 15:34 Blood Culture - Preliminary Blood No Growth after 24 hours Assessment and Plan Assessment: 1 Acute on chronic hypoxic respiratory failure secondary to acute exacerbation of COPD, suspect underlying community acquired pneumonia, pulmonary fibrosis. Mack virus not detected, received second dose of vaccine 2 Chronic hypoxic respiratory failure on home oxygen at 3 L/m, steroid-dependent 5 mg daily 3 Advanced COPD/pulmonary fibrosis 4 Troponin leak, suspect oxygen supply and demand mismatch 5 Cushingoid features secondary to chronic steroid use 6 History of rheumatoid arthritis 7 Obstructive sleep apnea, not on CPAP 8 Chronic back pain 9 Hyperlipidemia 10 Osteoarthritis Plan: The patient was seen and evaluated by Dr. Weaver Continue ceftriaxone, add azithromycin Continue DuoNeb inhalations, Pulmicort inhalations, IV Solu-Medrol Titrate down the FiO2 as tolerated Possibly home in the a.m. We will continue to follow and make further recommendations based on his clinical status I, the cosigning physician, performed a history & physical examination of the patient. Lungs sounds with coarse crackles in the bilateral bases. Maintaining O2 saturations in the 90s on 6 L/m per nasal cannula. I discussed the assessment and plan of care with my nurse practitioner, Priscilla Mike. I attest to the above note as dictated by her.
[2020-12-08] MEDS ORDERED: BACITRACIN OINT 1 EACH PACKET TOPICAL ONE (13:48)
[2020-12-08 14:30] VITALS: BMI 20.9
[2020-12-08 17:02] LABS: Glucose,Whole Blood 128 mg/dL (75-99)
[2020-12-08] MEDS: methylPREDNISolone SOD SUCCI 40 MG/ML 1 ML VIAL IV SCH ×2 (17:52→22:54)
[2020-12-08] MEDS: CLOPIDOGREL 75 MG TAB PO SCH (18:01)
[2020-12-08 20:51] LABS: Glucose,Whole Blood 129 mg/dL (75-99)
[2020-12-08] MEDS: GABAPENTIN 300 MG CAP PO SCH (21:37)
[2020-12-08] MEDS: ATORVASTATIN 40 MG TAB PO SCH (21:37)
[2020-12-08] MEDS: AMITRIPTYLINE HCL 10 MG TAB PO SCH (21:37)
[2020-12-09] MEDS: INSULIN ASPART (NovoLOG) 100 UNIT/ML VIAL SQ SCH ×4 (06:59→21:31)
[2020-12-09] MEDS: PANTOPRAZOLE 40 MG TABLET PO SCH (06:59)
[2020-12-09 07:02] LABS: Glucose,Whole Blood 138 mg/dL (75-99)
[2020-12-09] MEDS: IPRATROPIUM-ALBUTEROL 3 ML NEB INHALATION SCH ×4 (07:34→21:39)
[2020-12-09] MEDS: BUDESONIDE 1 MG/2 ML NEBU INHALATION SCH ×2 (07:34→21:39)
[2020-12-09] MEDS: MULTIVITAMINS, THERA 1 EACH TAB PO SCH (08:22)
[2020-12-09] MEDS: METOPROLOL SUCCINATE (ER) 25 MG TAB.ER.24H PO SCH (08:22)
[2020-12-09] MEDS: methylPREDNISolone SOD SUCCI 40 MG/ML 1 ML VIAL IV SCH ×3 (08:22→23:30)
[2020-12-09] MEDS: CHOLECALCIFEROL 25 MCG (1000 IU) TABLET PO SCH (08:22)
[2020-12-09] MEDS: SERTRALINE 50 MG TAB PO SCH (08:22)
[2020-12-09] MEDS: AZITHROMYCIN 500 MG TAB PO SCH (08:22)
[2020-12-09] MEDS: CLOPIDOGREL 75 MG TAB PO SCH (08:22)
[2020-12-09] MEDS: HEPARIN SODIUM,PORCINE/PF 5,000 UNIT/0.5 ML SYRINGE SQ SCH ×3 (08:22→23:30)
[2020-12-09 11:34] LABS: Glucose,Whole Blood 170 mg/dL (75-99)
--- NOTE | 2020-12-09 12:11 | P.PN ---
Subjective Progress Note Date: 12/09/20 Principal diagnosis: Abnormal cardiac enzymes This is a pleasant 70-year-old gentleman with known chronic hypoxic respiratory failure on oxygen at home continuously as well as obstructive sleep apnea as well as multiple comorbid conditions including hypertension and dyslipidemia with consulted to see for abnormal cardiac enzymes. He presented to the hospital with increasing shortness of breath with exertion but no symptoms of chest pain or chest discomfort. We felt that the abnormal cardiac enzymes is related to type II WA with oxygen demands mismatch. We decided to treat the patient medically. The patient was seen today reminds 2020. He is asymptomatic in terms of chest pain or chest discomfort and he stated that the shortness of breath has improved significantly. Hemodynamically he is stable. He is on maximize medical treatment included antiplatelet as well as high intensity statin as well as beta marce. The echo showed normal LV function was mild aortic stenosis. From a cardiac vascular standpoint of view, potentially can be discharged home in the n ext 12-24 hours. Objective - Vital Signs Vital signs: Vital Signs Temp 97.4 F L 12/09/20 08:20 Pulse 76 12/09/20 11:41 Resp 20 12/09/20 08:20 BP 110/64 12/09/20 08:20 Pulse Ox 96 12/09/20 08:20 Intake & Output 12/08/20 12/09/20 12/09/20 18:59 06:59 18:59 Intake Total 1415 Output Total 1225 350 Balance 190 -350 Weight 60.5 kg 59.5 kg Intake: Intake, IV Titration 1050 Amount Sodium Chloride 0.9% 1, 1000 000 ml @ 100 mls/hr IV . Q10H [facility] Rx#:[id number] cefTRIAXone 1 gm In 50 Sodium Chloride 0.9% 50 ml @ 100 mls/hr IVPB Q24H [facility] Rx#:[id number] Oral 365 Output: Urine 1225 350 Other: Voiding Method Urinal Urinal Urinal # Voids 1 - Constitutional General appearance: Present: no acute distress - Respiratory Respiratory: bilateral: CTA - Cardiovascular Rhythm: regular Heart sounds: normal: S1, S2 Abnormal Heart Sounds: Present: systolic murmur - Labs CBC & Chem 7: 12/06/20 14:58 12/06/20 14:58 Labs: Abnormal Lab Results - Last 24 Hours (Table) 12/08/20 12/08/20 12/09/20 Range/Units 16:58 20:50 06:57 POC Glucose (mg/dL) 128 H 129 H 138 H (75-99) mg/dL 12/09/20 Range/Units 11:33 POC Glucose (mg/dL) 170 H (75-99) mg/dL Microbiology - Last 24 Hours (Table) 12/07/20 21:16 Blood Culture - Preliminary Blood No Growth after 24 hours 12/06/20 15:34 Blood Culture - Preliminary Blood No Growth after 48 hours 12/06/20 15:34 Blood Culture - Preliminary Blood No Growth after 48 hours Assessment and Plan Assessment: Assessment #1 acute on chronic hypoxic respiratory failure #2 acute exacerbation of COPD #3 pulmonary fibrosis #4 abnormal troponin likely to be type II WA #5 multiple comorbid conditions Plan #1 continue the conservative medical approach for the abnormal cardiac enzymes #2 continue the Plavix as well as a statin as well as metoprolol #3 the echo showed normal LV function was mild aortic stenosis #4 follow-up with the patient and the patient potentially can be discharged 12- 24 hours
--- NOTE | 2020-12-09 13:46 | P.PN ---
Subjective Progress Note Date: 12/09/20 HISTORY OF PRESENT ILLNESS This is a 70-year-old male patient of Dr. Holbrook and Dr. Mireles with past medical history of advanced steroid-dependent COPD, hyperlipidemia, rheumatoid arthritis, obstructive sleep apnea unable to tolerate CPAP, chronic hypoxic respiratory failure on home O2 at 3 L nasal cannula, generalized osteoarthritis, chronic back pain pseudomonas in sputum on previous admission secondary to colonization or pseudomonal pneumonia. Known FVC of 72% and FEV1 of 46%. History of perforated duodenal ulcer status post exploratory laparotomy with repair of perforated duodenal ulcer and repair of incarcerated umbilical hernia. Patient states that he has redness of breath but became significantly worse yesterday. He states he recently received medication from Dr. Cohen that seemed to help a little only. He denies having any fever or chills. No wheezing. He complains of sputum production. He denies any known sick contacts. Patient came into [facility] emergency center for evaluation. Patient was afebrile, heart rate in 110, blood pressure 87/51, pulse ox 87% on 5 L nasal cannula. EKG sinus rhythm with occasional PAC. Lab work revealed WBC 19.6, hemoglobin 13.2, platelet count 321. Sodium 132, potassium 4.4, chloride 97, CO2 28, BUN 20, creatinine 0.95. Blood sugar 110. LDH 304, CRP 89.2. BNP 3170. Pro-calcitonin 1.11. Troponins were 0.075, 0.117, 0.103. Chest x-ray shows underlying pulmonary fibrosis. Increased patchy density however is noted at the left lung base and superimposed pneumonia is difficult to exclude. CTA of the chest revealed diffuse COPD with diffuse bilateral infiltrates. No evidence of pulmonary embolism. Distal branches somewhat limited. Severe compression fractures involving the mid and upper thoracic spine. Patient was started on antibiotics, IV steroids, status post 2 L of IV fluid, admitted to the cardiac stepdown unit and consult in place with pulmonary medicine and card iology. 12/08: His been afebrile, heart rate 82, respiratory rate 24, blood pressure 99/61, pulse ox 94% on 9 L high flow nasal cannula. Blood sugars are running between 133 and 166. Blood culture showing no growth at 24 hours however patient states received a call yesterday afternoon that there was gram-positive cocci in blood culture. She was given 1 dose of IV vancomycin. Blood cultures are currently showing no growth. Sputum culture is in progress. Patient has been seen by pulmonary medicine with recommendations for ceftriaxone and azithromycin. Patient has been seen by cardiology and started on statin and aspirin, plan for stress test as an outpatient. Echocardiogram is pending. Patient's breathing status is stable and improving. Transition Solu-Medrol to 40 mg every 8 hours. Anticipate probable discharge home tomorrow. 12/09: Patient is still on high flow nasal cannula 9 L with pulse ox of 92-96%. Will decrease to 6 L and nursing to continue to wean down to his normal home dose of 3 L nasal cannula. Patient denies new complaints. His breathing status is improved. He has been transitioned to Solu-Medrol at 40 mg IV every 8 hours. Patient's been afebrile, heart rate 107, blood pressure 116/65. Blood sugars are running between 128 and 170. Plan is to continue to wean oxygen down to his baseline and plan for discharge home tomorrow. REVIEW OF SYSTEMS Constitutional: No fever, no chills, no night sweats. No weight change. No weakness, fatigue or lethargy. No daytime sleepiness. EENT: No headache. No blurred vision or double vision, no loss of vision. No loss of Hearing, no ringing in the ears, no dizziness. No nasal drainage or congestion. No epistaxis. No sore throat. Lungs: Reports shortness of breath improving, Reports cough, Reports sputum production. No wheezing. Cardiovascular: No chest pain, no lower extremity edema. No palpitations. No paroxysmal nocturnal dyspnea. No orthopnea. No lightheadedness or dizziness. No syncopal episodes. Abdominal: No abdominal pain. No nausea, vomiting. No diarrhea. No constipation. No bloody or tarry stools.. No loss of appetite. Genitourinary: No dysuria, increased frequency, urgency. No urinary retention. Musculoskeletal: No myalgias. No muscle weakness, no gait dysfunction, no frequent falls. No back pain. No neck pain. Integumentary: No wounds, no lesions. No rash or pruritus. No unusual bruising. No change in hair or nails. Neurologic: No aphasia. No facial droop. No change in mentation. No head injury. No headache. No paralysis. No paresthesia. Psychiatric: No depression. No anxiety. No mood swings. Endocrine: Mildly abnormal blood sugars. No weight change. PHYSICAL EXAMINATION Gen: This is 70-year-old male. Patient is resting in bed appears to be comfortable and in no acute distress. HEENT: Head is atraumatic, normocephalic. Pupils equal, round. Sclerae is anicteric. NECK: Supple. No JVD. No lymphadenopathy. No thyromegaly. LUNGS: Coarse crackles bilaterally. Mild expiratory wheezing. No intercostal retractions. HEART: Regular rate and rhythm. No murmur. Sinus tachycardia. ABDOMEN: Soft. Bowel sounds are present. No masses. No tenderness. EXTREMITIES: No pedal edema. No calf tenderness. NEUROLOGICAL: Patient is awake, alert and oriented x3. Cranial nerves 2 through 12 are grossly intact. ASSESSMENT AND PLAN 1. Acute on chronic hypoxic respiratory failure secondary to COPD exacerbation and underlying pulmonary fibrosis with possible pneumonia bilaterally. Patient admitted to the hospital, consult with Dr. Weaver, continue oxygen therapy, continue DuoNeb treatments 4 times daily and as needed, azithromycin, ceftriaxone 1 g IV piggyback daily, Tessalon Perles, Pulmicort increased to 1 mg twice daily, ceftriaxone, continue Solu-Medrol 40 mg IV every 8 hours. 2. Advanced COPD with pulmonary fibrosis, steroid dependent and chronic hypoxic and hypercapnic respiratory failure on home O2 at 3 L. Continue as in #1. 3. Elevated troponins without chest pain. Cardiology consult. Echocardiogram ordered. 4. Hypertension. Continue Toprol-XL 25 mg daily. 5. Rheumatoid arthritis, stable. 6. Hyperlipidemia. 7. Obstructive sleep apnea unable to tolerate CPAP. 8. Chronic back pain and generalized osteoarthritis. Continue Sweetser as needed, gabapentin 300 mg at bedtime 9. History of perforated duodenal ulcer status post exploratory laparotomy with repair of perforated duodenal ulcer and repair of incarcerated umbilical hernia. 10. Generalized anxiety disorder and recurrent depression. Continue Zoloft 50 mg daily, Elavil 10 mg at bedtime. 11. DVT prophylaxis. Heparin subcu. 10. GI prophylaxis. Continue Protonix daily. 12. Insomnia. Continue Elavil 10 mg at bedtime.. 13. Chronic compression fracture. Continue current pain management with Sweetser. 14. Reported positive blood culture with gram positive cocci. Patient received 1 dose of IV vancomycin. Subsequently blood cultures no growth. DISCHARGE PLAN Most likely home with [facility] on Saturday. Impression and plan of care have been directed as dictated by the signing physician. [place] Sal[place] nurse practitioner acting as scribe for signing physician. Objective - Vital Signs Vital signs: Vital Signs Temp 97.4 F L 12/09/20 08:20 Pulse 77 12/09/20 08:20 Resp 20 12/09/20 08:20 BP 110/64 12/09/20 08:20 Pulse Ox 96 12/09/20 08:20 Intake & Output 12/08/20 12/09/20 12/09/20 18:59 06:59 18:59 Intake Total 1415 Output Total 1225 350 Balance 190 -350 Weight 60.5 kg 59.5 kg Intake: Intake, IV Titration 1050 Amount Sodium Chloride 0.9% 1, 1000 000 ml @ 100 mls/hr IV . Q10H [facility] Rx#:[id number] cefTRIAXone 1 gm In 50 Sodium Chloride 0.9% 50 ml @ 100 mls/hr IVPB Q24H [facility] Rx#:[id number] Oral 365 Output: Urine 1225 350 Other: Voiding Method Urinal Urinal # Voids 1 - Labs CBC & Chem 7: 12/06/20 14:58 12/06/20 14:58 Labs: Abnormal Lab Results - Last 24 Hours (Table) 12/08/20 12/08/20 12/08/20 Range/Units 11:56 16:58 20:50 POC Glucose (mg/dL) 168 H 128 H 129 H (75-99) mg/dL 12/09/20 Range/Units 06:57 POC Glucose (mg/dL) 138 H (75-99) mg/dL Microbiology - Last 24 Hours (Table) 12/07/20 21:16 Blood Culture - Preliminary Blood No Growth after 24 hours 12/06/20 15:34 Blood Culture - Preliminary Blood No Growth after 48 hours 12/06/20 15:34 Blood Culture - Preliminary Blood No Growth after 48 hours 12/07/20 17:17 Gram Stain - Preliminary Sputum Sputum Culture - Preliminary
[2020-12-09] MEDS: HYDROcodone/APAP 10-325MG 1 EACH TAB PO PRN ×2 (16:07→23:30)
[2020-12-09] MEDS ORDERED: MAGNESIUM HYDROXIDE 2,400 MG/10 ML CUP PO ONE (16:21)
--- NOTE | 2020-12-09 16:42 | P.PN ---
Subjective Progress Note Date: 12/09/20 Principal diagnosis: Acute on chronic hypoxemic respiratory failure secondary to COPD exacerbation/pulmonary fibrosis The patient is a very pleasant 70-year-old gentleman with a long-term history of COPD and pulmonary fibrosis. Based on his pulmonary function test in 2017 he gonzalez s an FVC of 72% and FEV1 of 46% and he has been steroid dependent for the past few years taking prednisone 5 milligrams on a daily basis. He has also underlying rheumatoid arthritis and previously he was taking immunosuppression with Humira none for now. His oxygen dependent at 3 L/m per nasal cannula at home. He presented to the emergency room yesterday with complaints of increasing fatigue, fever, worsening shortness of breath. He received one his second dose of CoVID vaccine recently. Chest x-ray reveals underlying pulmonary fibrosis. Increase passage density in the left lung base. CT angiogram revealed diffuse COPD with diffuse bilateral infiltrates. No evidence of central pulmonary embolism. Distal branches difficult to assess. There is multiple severe compression fractures with retropulsion involving the mid and thoracic spine. White count 19.6. Hemoglobin 13.2. D-dimer 0.81. Sodium 132. Potassium 4.4. Creatinine 0.95. C-reactive protein 89. LDH 304. Troponin 0. 075, 0.117, 0.103. Mack virus not detected. Arterial blood gas 700% FiO2 revealed a P O2 of 91, pCO2 56, pH 7.30. He is seen today in consultation on the selective care unit. Currently awake and alert in no acute distress. Requiring 9 L high flow nasal cannula to maintain O2 saturations in the 90s. He is afebrile. Hemodynamically stable. He's been initiated on DuoNeb inhalations, Pulmicort inhalations, IV Solu-Medrol. Antibiotics in the form of vancomycin and ceftriaxone. Heparin for DVT prophylaxis. The patient is seen today 12/08/2020 follow-up on the selective care unit. He is currently sitting up in a chair at the bedside. Awake and alert in no acute distress. He is down to 6 L high flow nasal cannula to maintain O2 saturations in the 90s. Continue ferrous shortness of breath with minimal exertion, loose cough. Sputum culture pending. Blood cultures reveal no growth to date. Continued on DuoNeb inhalations, IV Solu-Medrol, ceftriaxone and azithromycin. The patient is seen today 12/09/2020 in follow-up on selective care unit. He is currently sitting up in a chair at the bedside. Awake and alert in no acute distress. He continues to require 9 L high flow nasal cannula to maintain O2 saturation in the 90s. Blood and sputum cultures reveal no growth. Blood glucose 170. He remains on DuoNeb inhalations, Tessalon Perles, IV Solu-Medrol, ceftriaxone and azithromycin. Objective - Vital Signs Vital signs: Vital Signs Temp 98.3 F 12/09/20 12:45 Pulse 92 12/09/20 16:30 Resp 22 12/09/20 12:45 BP 116/65 12/09/20 12:45 Pulse Ox 92 L 12/09/20 12:45 Intake & Output 12/08/20 12/09/20 12/09/20 18:59 06:59 18:59 Intake Total 1415 240 Output Total 1225 350 Balance 190 -110 Weight 60.5 kg 59.5 kg Intake: Intake, IV Titration 1050 Amount Sodium Chloride 0.9% 1, 1000 000 ml @ 100 mls/hr IV . Q10H [facility] Rx#:[id number] cefTRIAXone 1 gm In 50 Sodium Chloride 0.9% 50 ml @ 100 mls/hr IVPB Q24H [facility] Rx#:[id number] Oral 365 240 Output: Urine 1225 350 Other: Voiding Method Urinal Urinal Urinal # Voids 1 - Exam GENERAL EXAM: Alert, pleasant 70-year-old gentleman, 9 L nasal cannula, comfortable in no apparent distress. HEAD: Normocephalic. EYES: Normal reaction of pupils, equal size. NOSE: Clear with pink turbinates. THROAT: No erythema or exudates. NECK: No masses, no JVD. CHEST: No chest wall deformity. LUNGS: Equal air entry with coarse crackles in the posterior bases. CVS: S1 and S2 normal with no audible murmur, regular rhythm. ABDOMEN: No hepatosplenomegaly, normal bowel sounds, no guarding or rigidity. SPINE: No scoliosis or deformity SKIN: No rashes CENTRAL NERVOUS SYSTEM: No focal deficits, tone is normal in all 4 extremities. EXTREMITIES: There is no peripheral edema. No clubbing, no cyanosis. Perip heral pulses are intact. - Labs CBC & Chem 7: 12/06/20 14:58 12/06/20 14:58 Labs: Abnormal Lab Results - Last 24 Hours (Table) 12/08/20 12/08/20 12/09/20 Range/Units 16:58 20:50 06:57 POC Glucose (mg/dL) 128 H 129 H 138 H (75-99) mg/dL 12/09/20 Range/Units 11:33 POC Glucose (mg/dL) 170 H (75-99) mg/dL Microbiology - Last 24 Hours (Table) 12/07/20 21:16 Blood Culture - Preliminary Blood No Growth after 24 hours 12/06/20 15:34 Blood Culture - Preliminary Blood No Growth after 48 hours 12/06/20 15:34 Blood Culture - Preliminary Blood No Growth after 48 hours Assessment and Plan Assessment: 1 Acute on chronic hypoxic respiratory failure secondary to acute exacerbation of COPD, suspect underlying community acquired pneumonia, pulmonary fibrosis. Mack virus not detected, received second dose of vaccine 2 Chronic hypoxic respiratory failure on home oxygen at 3 L/m, steroid-dependent 5 mg daily 3 Advanced COPD/pulmonary fibrosis 4 Troponin leak, suspect oxygen supply and demand mismatch 5 Cushingoid features secondary to chronic steroid use 6 History of rheumatoid arthritis 7 Obstructive sleep apnea, not on CPAP 8 Chronic back pain 9 Hyperlipidemia 10 Osteoarthritis Plan: The patient was seen and evaluated by Dr. Weaver Continue DuoNeb inhalations, Pulmicort inhalations, IV Solu-Medrol Continue antibiotics Titrate down the FiO2 as tolerated We will continue to follow I, the cosigning physician, performed a history & physical examination of the patient. Lungs sounds with coarse crackles in the bilateral bases. Maintaining O2 saturations in the 90s on 9 L/m per nasal cannula. I discussed the assessment and plan of care with my nurse practitioner, Priscilla Mike. I attest to the above note as dictated by her.
[2020-12-09 16:57] LABS: Glucose,Whole Blood 85 mg/dL (75-99)
[2020-12-09] MEDS: FLUTICASONE 50MCG/SPRAY NASAL 16GM EA NOSTRIL SCH (17:39)
[2020-12-09] MEDS: BENZONATATE 100 MG CAP PO PRN (17:39)
[2020-12-09 21:17] LABS: Glucose,Whole Blood 106 mg/dL (75-99)
[2020-12-09] MEDS: AMITRIPTYLINE HCL 10 MG TAB PO SCH (21:29)
[2020-12-09] MEDS: ATORVASTATIN 40 MG TAB PO SCH (21:29)
[2020-12-09] MEDS: GABAPENTIN 300 MG CAP PO SCH (21:29)
[2020-12-09] MEDS: SENNOSIDES 8.6 MG TAB PO SCH (21:29)
[2020-12-10 05:00] VITALS: RESP 16
[2020-12-10 06:16] LABS: Glucose,Whole Blood 140 mg/dL (75-99)
[2020-12-10] MEDS: INSULIN ASPART (NovoLOG) 100 UNIT/ML VIAL SQ SCH ×2 (06:28→13:13)
[2020-12-10] MEDS: PANTOPRAZOLE 40 MG TABLET PO SCH (06:28)
[2020-12-10] MEDS: SERTRALINE 50 MG TAB PO SCH (08:54)
[2020-12-10] MEDS: METOPROLOL SUCCINATE (ER) 25 MG TAB.ER.24H PO SCH (08:54)
[2020-12-10] MEDS: CHOLECALCIFEROL 25 MCG (1000 IU) TABLET PO SCH (08:55)
[2020-12-10] MEDS: HEPARIN SODIUM,PORCINE/PF 5,000 UNIT/0.5 ML SYRINGE SQ SCH (08:55)
[2020-12-10] MEDS: MULTIVITAMINS, THERA 1 EACH TAB PO SCH (08:55)
[2020-12-10] MEDS: FLUTICASONE 50MCG/SPRAY NASAL 16GM EA NOSTRIL SCH (08:55)
[2020-12-10] MEDS: SENNOSIDES 8.6 MG TAB PO SCH (08:55)
[2020-12-10] MEDS: AZITHROMYCIN 500 MG TAB PO SCH (08:55)
[2020-12-10] MEDS: CLOPIDOGREL 75 MG TAB PO SCH (08:55)
[2020-12-10] MEDS: methylPREDNISolone SOD SUCCI 40 MG/ML 1 ML VIAL IV SCH (08:55)
[2020-12-10] MEDS: IPRATROPIUM-ALBUTEROL 3 ML NEB INHALATION SCH ×3 (08:59→15:27)
[2020-12-10] MEDS: BUDESONIDE 1 MG/2 ML NEBU INHALATION SCH (08:59)
[2020-12-10] MEDS: HYDROcodone/APAP 10-325MG 1 EACH TAB PO PRN (09:01)
[2020-12-10 11:56] LABS: Glucose,Whole Blood 122 mg/dL (75-99)
[2020-12-10 11:57] VITALS: BP 131/71; TEMP 98.3
--- NOTE | 2020-12-10 12:11 | P.DS ---
Providers Date of admission: 12/06/20 18:35 Expected date of discharge: 12/10/20 Attending physician: Cole Kirk Consults: 12/06/20 18:35 Consult Physician Routine Consulting Provider: Lex Weaver Consult Reason/Comments: COPD, Pneumonia Do you want consulting provider notified?: Yes 12/07/20 10:54 Consult Physician Routine Consulting Provider: Pedrito Parekh Consult Reason/Comments: elevated troponins Do you want consulting provider notified?: Yes Primary care physician: Razia Holbrook [facility] Course: HISTORY OF PRESENT ILLNESS This is a 70-year-old male patient of Dr. Holbrook and Dr. Mireles with past medical history of advanced steroid-dependent COPD, hyperlipidemia, rheumatoid arthritis, obstructive sleep apnea unable to tolerate CPAP, chronic hypoxic respiratory failure on home O2 at 3 L nasal cannula, generalized osteoarthritis, chronic back pain pseudomonas in sputum on previous admission secondary to colonization or pseudomonal pneumonia. Known FVC of 72% and FEV1 of 46%. History of perforated duodenal ulcer status post exploratory laparotomy with repair of perforated duodenal ulcer and repair of incarcerated umbilical hernia. Patient states that he has redness of breath but became significantly worse yesterday. He states he recently received medication from Dr. Cohen that seemed to help a little only. He denies having any fever or chills. No wheezing. He complains of sputum production. He denies any known sick contacts. Patient came into [facility] emergency center for evaluation. Patient was afebrile, heart rate in 110, blood pressure 87/51, pulse ox 87% on 5 L nasal cannula. EKG sinus rhythm with occasional PAC. Lab work revealed WBC 19.6, hemoglobin 13.2, platelet count 321. Sodium 132, potassium 4.4, chloride 97, CO2 28, BUN 20, creatinine 0.95. Blood sugar 110. LDH 304, CRP 89.2. BNP 3170. Pro-calcitonin 1.11. Troponins were 0.075, 0.117, 0.103. Chest x-ray sh ows underlying pulmonary fibrosis. Increased patchy density however is noted at the left lung base and superimposed pneumonia is difficult to exclude. CTA of the chest revealed diffuse COPD with diffuse bilateral infiltrates. No evidence of pulmonary embolism. Distal branches somewhat limited. Severe compression fractures involving the mid and upper thoracic spine. Patient was started on antibiotics, IV steroids, status post 2 L of IV fluid, admitted to the cardiac stepdown unit and consult in place with pulmonary medicine and cardiology. 12/08: His been afebrile, heart rate 82, respiratory rate 24, blood pressure 99/61, pulse ox 94% on 9 L high flow nasal cannula. Blood sugars are running between 133 and 166. Blood culture showing no growth at 24 hours however patient states received a call yesterday afternoon that there was gram-positive cocci in blood culture. She was given 1 dose of IV vancomycin. Blood cultures are currently showing no growth. Sputum culture is in progress. Patient has been seen by pulmonary medicine with recommendations for ceftriaxone and azithromycin. Patient has been seen by cardiology and started on statin and aspirin, plan for stress test as an outpatient. Echocardiogram is pending. Patient's breathing status is stable and improving. Transition Solu-Medrol to 40 mg every 8 hours. Anticipate probable discharge home tomorrow. 12/09: Patient is still on high flow nasal cannula 9 L with pulse ox of 92-96%. Will decrease to 6 L and nursing to continue to wean down to his normal home dose of 3 L nasal cannula. Patient denies new complaints. His breathing status is improved. He has been transitioned to Solu-Medrol at 40 mg IV every 8 hours. Patient's been afebrile, heart rate 107, blood pressure 116/65. Blood sugars are running between 128 and 170. Plan is to continue to wean oxygen down to his baseline and plan for discharge home tomorrow. 12/10: Patient is currently on 6 L nasal cannula. Patient denies having any shortness of breath. He does have home oxygen at 3 L. He has been afebrile, heart rate in the 70s, blood pressure 131/71. Patient has no respiratory distress at rest. Lung sounds are improving. Echocardiogram reveals EF of 55- 60% with mild concentric left ventricular hypertrophy, mild aortic valve sclerosis, trace aortic regurgitation, mild mitral regurgitation, mild tricuspid regurgitation, moderate pulmonary hypertension. Patient will be discharged home today in stable condition and follow up in the office in the next 3-5 days ASSESSMENT AND PLAN 1. Acute on chronic hypoxic respiratory failure secondary to COPD exacerbation and underlying pulmonary fibrosis with possible pneumonia bilaterally. 2. Advanced COPD with pulmonary fibrosis, steroid dependent and chronic hypoxic and hypercapnic respiratory failure. 3. Elevated troponins likely type II [place]. 4. Hypertension. 5. Rheumatoid arthritis, stable. 6. Hyperlipidemia. 7. Obstructive sleep apnea unable to tolerate CPAP. 8. Chronic back pain and generalized osteoarthritis. 9. History of perforated duodenal ulcer status post exploratory laparotomy with repair of perforated duodenal ulcer and repair of incarcerated umbilical hernia. 10. Generalized anxiety disorder and recurrent depression. 11. Insomnia. 13. Chronic compression fracture. 14. Bacteremia ruled out DISCHARGE PLAN Home with [facility] Impression and plan of care have been directed as dictated by the signing physician. [place]ia Salinas nurse practitioner acting as scribe for signing physician. Patient Condition at Discharge: Good Plan - Discharge Summary Discharge Rx Participant: No New Discharge Prescriptions: New predniSONE [Deltasone] 0 mg PO DIRECTED #15 tab Fluticasone Nasal [place] [Flonase Nasal [place]] 2 spray EA NOSTRIL DAILY #1 spr Azithromycin [Zithromax] 500 mg PO DAILY #3 tab Atorvastatin [Lipitor] 40 mg PO HS #30 tab Clopidogrel [Plavix] 75 mg PO DAILY #30 tab Budesonide [Pulmicort] 1 mg INHALATION RT-BID #60 inhalation Continue Cholecalciferol [Vitamin D3 (25 Mcg = 1000 Iu)] 1,000 unit PO DAILY Albuterol Inhaler [Ventolin Hfa Inhaler] 2 puff INHALATION RT-QID PRN PRN Reason: Shortness Of Breath Omeprazole [PriLOSEC] 40 mg PO DAILY Metoprolol Succinate [Toprol XL] 25 mg PO DAILY Sertraline [Zoloft] 150 mg PO DAILY Multivitamins, Thera [Multivitamin (formulary)] 1 tab PO DAILY HYDROcodone/APAP 10-325MG [[place] 10-325] 1 tab PO TID PRN PRN Reason: Pain Benzonatate [Tessalon Perles] 100 - 200 mg PO TID PRN PRN Reason: Cough predniSONE 5 mg PO Q48H Celecoxib [CeleBREX] 200 mg PO DAILY PRN PRN Reason: Pain Amitriptyline HCl [Elavil] 10 mg PO HS Gabapentin [Neurontin] 300 mg PO HS Discharge Medication List Albuterol Inhaler [Ventolin Hfa Inhaler] 2 puff INHALATION RT-QID PRN 01/12/20 [History] Cholecalciferol [Vitamin D3 (25 Mcg = 1000 Iu)] 1,000 unit PO DAILY 01/12/20 [History] HYDROcodone/APAP 10-325MG [[place] 10-325] 1 tab PO TID PRN 01/12/20 [History] Metoprolol Succinate [Toprol XL] 25 mg PO DAILY 01/12/20 [History] Multivitamins, Thera [Multivitamin (formulary)] 1 tab PO DAILY 01/12/20 [History] Omeprazole [PriLOSEC] 40 mg PO DAILY 01/12/20 [History] Sertraline [Zoloft] 150 mg PO DAILY 01/12/20 [History] Amitriptyline HCl [Elavil] 10 mg PO HS 12/06/20 [History] Benzonatate [Tessalon Perles] 100 - 200 mg PO TID PRN 12/06/20 [History] Celecoxib [CeleBREX] 200 mg PO DAILY PRN 12/06/20 [History] Gabapentin [Neurontin] 300 mg PO HS 12/06/20 [History] predniSONE 5 mg PO Q48H 12/06/20 [History] Atorvastatin [Lipitor] 40 mg PO HS #30 tab 12/10/20 [Rx] Azithromycin [Zithromax] 500 mg PO DAILY #3 tab 12/10/20 [Rx] Budesonide [Pulmicort] 1 mg INHALATION RT-BID #60 inhalation 12/10/20 [Rx] Clopidogrel [Plavix] 75 mg PO DAILY #30 tab 12/10/20 [Rx] Fluticasone Nasal [place] [Flonase Nasal [place]] 2 spray EA NOSTRIL DAILY #1 spr 12/10/20 [Rx] predniSONE [Deltasone] 0 mg PO DIRECTED #15 tab 12/10/20 [Rx] Follow up Appointment(s)/Referral(s): Razia Holbrook MD [Primary Care Provider] - 3 Days Glenn Frazier MD [STAFF PHYSICIAN] - 2 Weeks [facility] Visiting Nurse, [NON-STAFF] - Discharge Disposition: HOME WITH HOME HEALTH SERVICES
--- NOTE | 2020-12-10 15:35 | P.PN ---
Subjective Progress Note Date: 12/10/20 Principal diagnosis: Acute on chronic hypoxemic respiratory failure secondary to COPD exacerbation/pulmonary fibrosis The patient is a very pleasant 70-year-old gentleman with a long-term history of COPD and pulmonary fibrosis. Based on his pulmonary function test in 2017 he gonzalez s an FVC of 72% and FEV1 of 46% and he has been steroid dependent for the past few years taking prednisone 5 milligrams on a daily basis. He has also underlying rheumatoid arthritis and previously he was taking immunosuppression with Humira none for now. His oxygen dependent at 3 L/m per nasal cannula at home. He presented to the emergency room yesterday with complaints of increasing fatigue, fever, worsening shortness of breath. He received one his second dose of CoVID vaccine recently. Chest x-ray reveals underlying pulmonary fibrosis. Increase passage density in the left lung base. CT angiogram revealed diffuse COPD with diffuse bilateral infiltrates. No evidence of central pulmonary embolism. Distal branches difficult to assess. There is multiple severe compression fractures with retropulsion involving the mid and thoracic spine. White count 19.6. Hemoglobin 13.2. D-dimer 0.81. Sodium 132. Potassium 4.4. Creatinine 0.95. C-reactive protein 89. LDH 304. Troponin 0. 075, 0.117, 0.103. Mack virus not detected. Arterial blood gas 700% FiO2 revealed a P O2 of 91, pCO2 56, pH 7.30. He is seen today in consultation on the selective care unit. Currently awake and alert in no acute distress. Requiring 9 L high flow nasal cannula to maintain O2 saturations in the 90s. He is afebrile. Hemodynamically stable. He's been initiated on DuoNeb inhalations, Pulmicort inhalations, IV Solu-Medrol. Antibiotics in the form of vancomycin and ceftriaxone. Heparin for DVT prophylaxis. The patient is seen today 12/08/2020 follow-up on the selective care unit. He is currently sitting up in a chair at the bedside. Awake and alert in no acute distress. He is down to 6 L high flow nasal cannula to maintain O2 saturations in the 90s. Continue ferrous shortness of breath with minimal exertion, loose cough. Sputum culture pending. Blood cultures reveal no growth to date. Continued on DuoNeb inhalations, IV Solu-Medrol, ceftriaxone and azithromycin. The patient is seen today 12/09/2020 in follow-up on selective care unit. He is currently sitting up in a chair at the bedside. Awake and alert in no acute distress. He continues to require 9 L high flow nasal cannula to maintain O2 saturation in the 90s. Blood and sputum cultures reveal no growth. Blood glucose 170. He remains on DuoNeb inhalations, Tessalon Perles, IV Solu-Medrol, ceftriaxone and azithromycin. The patient is seen today 12/10/2020 follow-up on the selective care unit. He is currently sitting up at the bedside. Awake and alert in no acute distress. He is down to 6 L high flow nasal cannula. He is breathing quite a bit better. Nearly back to his baseline. Anxious to go home. Blood culture revealed no growth. Sputum culture positive for gram-negative bacilli. Blood glucose 122. He remains on DuoNeb inhalations, Tessalon Perles, Pulmicort inhalations, IV Solu-Medrol. Antibiotics in the form of azithromycin and ceftriaxone. Objective - Vital Signs Vital signs: Vital Signs Temp 98.3 F 12/10/20 08:00 Pulse 90 12/10/20 15:29 Resp 16 12/10/20 04:00 BP 131/71 12/10/20 08:00 Pulse Ox 96 12/10/20 08:00 Intake & Output 12/09/20 12/10/20 12/10/20 18:59 06:59 18:59 Intake Total 420 868 240 Output Total 350 950 350 Balance 70 -82 -110 Weight 61.4 kg Intake: Oral 420 868 240 Output: Urine 350 950 350 Stool 0 Other: Voiding Method Urinal Urinal # Voids 0 1 # Bowel Movements 0 0 - Exam GENERAL EXAM: Alert, pleasant 70-year-old gentleman, 6 L nasal cannula, comfortable in no apparent distress. HEAD: Normocephalic. EYES: Normal reaction of pupils, equal size. NOSE: Clear with pink turbinates. THROAT: No erythema or exudates. NECK: No masses, no JVD. CHEST: No chest wall deformity. LUNGS: Equal air entry with coarse crackles in the posterior bases. CVS: S1 and S2 normal with no audible murmur, regular rhythm. ABDOMEN: No hepatosplenomegaly, normal bowel sounds, no guarding or rigidity. SPINE: No scoliosis or deformity SKIN: No rashes CENTRAL NERVOUS SYSTEM: No focal deficits, tone is normal in all 4 extremities. EXTREMITIES: There is no peripheral edema. No clubbing, no cyanosis. Peripheral pulses are intact. - Labs CBC & Chem 7: 12/06/20 14:58 12/06/20 14:58 Labs: Abnormal Lab Results - Last 24 Hours (Table) 12/09/20 12/10/20 12/10/20 Range/Units 20:44 06:14 11:52 POC Glucose (mg/dL) 106 H 140 H 122 H (75-99) mg/dL Microbiology - Last 24 Hours (Table) 12/07/20 17:17 Gram Stain - Preliminary Sputum Sputum Culture - Preliminary Gram Neg Bacilli 12/07/20 21:16 Blood Culture - Preliminary Blood No Growth after 48 hours 12/06/20 15:34 Blood Culture - Preliminary Blood No Growth after 72 hours 12/06/20 15:34 Blood Culture - Preliminary Blood No Growth after 72 hours Assessment and Plan Assessment: 1 Acute on chronic hypoxic respiratory failure secondary to acute exacerbation of COPD, suspect underlying community acquired pneumonia, pulmonary fibrosis. Mack virus not detected, received second dose of vaccine 2 Chronic hypoxic respiratory failure on home oxygen at 3 L/m, steroid-dependent 5 mg daily 3 Advanced COPD/pulmonary fibrosis 4 Troponin leak, suspect oxygen supply and demand mismatch 5 Cushingoid features secondary to chronic steroid use 6 History of rheumatoid arthritis 7 Obstructive sleep apnea, not on CPAP 8 Chronic back pain 9 Hyperlipidemia 10 Osteoarthritis Plan: The patient was seen and evaluated by Dr. Weaver Cleared for discharge from the pulmonary standpoint Complete a prednisone taper Continue home bronchodilators Add Symbicort Continue home oxygen therapy Follow-up in the office in 1-2 weeks' I, the cosigning physician, performed a history & physical examination of the patient. Lungs sounds with coarse crackles in the bilateral bases. Maintaining O2 saturations in the 90s on 6 L/m per nasal cannula. I discussed the assessment and plan of care with my nurse practitioner, Priscilla Mike. I attest to the above note as dictated by her.
[2020-12-10 16:34] VITALS: PULSE 89
== END 2020-12-10 16:12 | disposition home health service (06) | DRG 189 ==
LOC: EC 14:35 → 3SCARD 18:35
PROVIDERS: ADMIT Internal Medicine Geriatric Medicine; ATTEND Internal Medicine Geriatric Medicine
DX: J96.22 Acute and chronic respiratory failure with hypercapnia (principal); J18.9 Pneumonia, unspecified organism; I21.A1 Myocardial infarction type 2; J44.0 Chronic obstructive pulmonary disease with (acute) lower respiratory infection; J44.1 Chronic obstructive pulmonary disease with (acute) exacerbation; M48.54XA Collapsed vertebra, not elsewhere classified, thoracic region, initial encounter for fracture; F33.9 Major depressive disorder, recurrent, unspecified; J84.10 Pulmonary fibrosis, unspecified; J96.21 Acute and chronic respiratory failure with hypoxia; E78.5 Hyperlipidemia, unspecified; M06.9 Rheumatoid arthritis, unspecified; G47.33 Obstructive sleep apnea (adult) (pediatric); M16.0 Bilateral primary osteoarthritis of hip; M47.819 Spondylosis without myelopathy or radiculopathy, site unspecified; Z96.1 Presence of intraocular lens; I08.3 Combined rheumatic disorders of mitral, aortic and tricuspid valves; I10 Essential (primary) hypertension; F41.1 Generalized anxiety disorder; G47.00 Insomnia, unspecified; Z20.822 Contact with and (suspected) exposure to COVID-19; M17.0 Bilateral primary osteoarthritis of knee; G89.29 Other chronic pain; I27.20 Pulmonary hypertension, unspecified; M54.9 Dorsalgia, unspecified; Z98.42 Cataract extraction status, left eye; Z98.41 Cataract extraction status, right eye; Z87.01 Personal history of pneumonia (recurrent); Z87.19 Personal history of other diseases of the digestive system; Z87.891 Personal history of nicotine dependence; Z82.3 Family history of stroke; Z81.8 Family history of other mental and behavioral disorders; Z80.1 Family history of malignant neoplasm of trachea, bronchus and lung; Z80.0 Family history of malignant neoplasm of digestive organs; Z83.3 Family history of diabetes mellitus; Z88.0 Allergy status to penicillin; Z79.1 Long term (current) use of non-steroidal anti-inflammatories (NSAID); Z79.899 Other long term (current) drug therapy; Z80.6 Family history of leukemia; Z79.52 Long term (current) use of systemic steroids; Z99.81 Dependence on supplemental oxygen
CPT/HCPCS: 36415; 36600; 71045; 71275; 80053; 82728; 82805; 83605; 83615; 83735; 83880; 84145; 84484; 85025; 85379; 85610; 85730; 86140; 87040; 87070; 87077; 87186; 87205; 87635; 93005; 93306; 94640; 96361; 96365; 96375; 99285

== ENCOUNTER 2020-12-10 20:21 | Inpatient (IN) | payer MEDICARE, OTHER ==
--- NOTE | 2020-12-10 20:40 | ED ---
General Adult HPI - General Chief complaint: Shortness of Breath Stated complaint: has low oxygen Time Seen by Provider: 12/10/20 20:34 Source: patient, family Mode of arrival: wheelchair Limitations: physical limitation - History of Present Illness Initial comments: Patient presents the ED with his son and [id number] for evaluation. Patient states that he was discharged home from the hospital a few hours ago after being admitted for pneumonia and COPD exacerbation. Patient states that he was on 6 L of oxygen when he was discharged home, and he states that he is normally on 3 L of home O2. Per [id number], the patient's home oxygen tank only goes up to 5 L, and she states that his oxygen saturations have been in the 70s to low 90s at best on his home O2. Patient also admits to feeling more dyspneic since being discharged home. Patient denies having any pain, fever or chills, headache, focal neuro deficit, chest pain, palpitations, dizziness, abdominal pain, nausea or vomiting, dysuria or urinary symptoms, decreased urine output, leg or calf swelling or pain, or any other symptoms or complaints. - Related Data Home Medications Medication Instructions Recorded Confirmed Albuterol Inhaler [Ventolin Hfa 2 puff INHALATION RT-QID PRN 01/12/20 12/10/20 Inhaler] Cholecalciferol [Vitamin D3 (25 50 mcg PO DAILY 01/12/20 12/10/20 Mcg = 1000 Iu)] HYDROcodone/APAP 10-325MG [[place] 1 tab PO TID PRN 01/12/20 12/10/20 10-325] Metoprolol Succinate [Toprol XL] 25 mg PO DAILY 01/12/20 12/10/20 Multivitamins, Thera [Multivitamin 1 tab PO DAILY 01/12/20 12/10/20 (formulary)] Omeprazole [PriLOSEC] 40 mg PO DAILY 01/12/20 12/10/20 Sertraline [Zoloft] 150 mg PO DAILY 01/12/20 12/10/20 Amitriptyline HCl [Elavil] 10 mg PO HS 12/06/20 12/10/20 Benzonatate [Tessalon Perles] 200 mg PO TID PRN 12/06/20 12/10/20 Celecoxib [CeleBREX] 200 mg PO DAILY 12/06/20 12/10/20 Gabapentin [Neurontin] 300 mg PO HS 12/06/20 12/10/20 predniSONE 5 mg PO Q48H 12/06/20 12/10/20 Alendronate Sodium 70 mg PO MO 12/10/20 12/10/20 Ascorbic Acid [Vitamin C] 1,000 mg PO DAILY 12/10/20 12/10/20 Fluticasone/Umeclidin/Vilanter 1 puff INHALATION RT-DAILY 12/10/20 12/10/20 [Trelegy Ellipta 100-62.5-25] Ipratropium-Albuterol Nebulize 3 ml INHALATION RT-QID 12/10/20 12/10/20 [Duoneb 0.5 mg-3 mg/3 ml Soln] Melatonin 3 mg PO HS PRN 12/10/20 12/10/20 predniSONE [Deltasone] See Taper PO DIRECTED 12/10/20 12/10/20 Previous Rx's Medication Instructions Recorded Atorvastatin [Lipitor] 40 mg PO HS #30 tab 12/10/20 Azithromycin [Zithromax] 500 mg PO DAILY #3 tab 12/10/20 Budesonide [Pulmicort] 1 mg INHALATION RT-BID #60 12/10/20 inhalation Clopidogrel [Plavix] 75 mg PO DAILY #30 tab 12/10/20 Fluticasone Nasal [place] [Flonase 2 spray EA NOSTRIL DAILY #1 spr 12/10/20 Nasal [place]] Allergies Allergy/AdvReac Type Severity Reaction Status Date / Time amoxicillin AdvReac Nausea & Verified 12/10/20 22:43 Vomiting Review of Systems ROS Statement: Those systems with pertinent positive or pertinent negative responses have been documented in the HPI. ROS Other: All systems not noted in ROS Statement are negative. Past Medical History Past Medical History: COPD, Hyperlipidemia, Osteoarthritis (OA), Pneumonia, Rheumatoid Arthritis (RA), Sleep Apnea/CPAP/BIPAP Additional Past Medical History / Comment(s): COPD, chronic hypoxic respiratory failure previous history of pneumoperitoneum related to a perforated duodenal ulcer, repair of an umbilical hernia, chronic back pain, History of Any Multi-Drug Resistant Organisms: None Reported Past Surgical History: Orthopedic Surgery Additional Past Surgical History / Comment(s): colonoscopy, repair of a perforated duodenal ulcer and repair of an incarcerated umbilical hernia Past Anesthesia/Blood Transfusion Reactions: No Reported Reaction Past Psychological History: Anxiety, Depression Smoking Status: Former smoker Past Alcohol Use History: Daily Past Drug Use History: None Reported - Past Family History Father Family Medical History: Cancer Additional Family Medical History / Comment(s): Father of leukemia. Mother Family Medical History: Cancer, CVA/TIA, Dementia, Diabetes Mellitus Additional Family Medical History / Comment(s): Mother is 88yrs old with history of dementia and colon cancer. Sister(s) Additional Family Medical History / Comment(s): Patient 3 sons with no major medical problems. General Exam Limitations: physical limitation General appearance: alert Head exam: Present: atraumatic, normocephalic Eye exam: Present: normal appearance, EOMI ENT exam: Present: mucous membranes moist Neck exam: Present: other (Trachea is in midline) Respiratory exam: Present: respiratory distress, rhonchi, other (Equal breath sounds bilaterally). Absent: stridor Cardiovascular Exam: Present: regular rate, normal rhythm, normal heart sounds, other (Normal radial pulses bilaterally) GI/Abdominal exam: Present: soft. Absent: distended, tenderness, guarding Extremities exam: Present: other (Negative Homans sign bilaterally). Absent: tenderness, pedal edema, calf tenderness Neurological exam: Present: alert, oriented X3. Absent: motor sensory deficit Psychiatric exam: Present: normal affect, normal mood Skin exam: Present: warm, dry, intact, normal color Course Vital Signs 12/10/20 20:26 Temperature 98.9 F Pulse Rate 58 L Respiratory 26 H Rate Blood Pressure 124/74 O2 Sat by Pulse 96 Oximetry - Reevaluation(s) Reevaluation #1: 12/10/20 23:14 Patient denies development of any new symptoms while in the ED. Patient is aware of his test results, and he agrees with hospital admission at this time. 12/10/20 23:35 Case, H&P, test results and ED management were discussed with Dr. Holbrook. She accepts hospital admission. She requests obtaining a postvoid residual. She agrees with cardiology and pulmonology consultation. She has no further recommendations at this time. EKG Findings - EKG Comments: EKG Findings:: Normal sinus rhythm, ventricular rate of 89 bpm, occasional premature atrial complexes, normal [place] and QRS intervals, normal QT interval, normal axis, no ST or T-wave abnormality Medical Decision Making - Medical Decision Making Patient was discharged home earlier today with an oxygen requirement of 6 L, and patient's family reports that his O2 tank at home only goes up to 5 L. Patient also reports having increasing dyspnea since being discharged home. I suspect this is likely secondary to his underlying lung disease, as well as CHF given his laboratory and chest x-ray findings. Patient is afebrile and without leukocytosis. Patient was given a dose of IV Lasix in the ED. Dr. Holbrook has accepted hospital admission. - Lab Data Result diagrams: 12/10/20 21:10 12/10/20 21:18 Lab Results 12/10/20 12/10/20 12/10/20 Range/Units 21:10 21:10 21:18 WBC 7.8 (3.8-10.6) k/uL RBC 4.09 L (4.30-5.90) m/uL Hgb 12.3 L (13.0-17.5) gm/dL Hct 37.2 L (39.0-53.0) % MCV 90.8 (80.0-100.0) fL MCH 30.0 (25.0-35.0) pg MCHC 33.0 (31.0-37.0) g/dL RDW 15.2 (11.5-15.5) % Plt Count 313 (150-450) k/uL MPV 7.0 Neutrophils % 65 % Lymphocytes % 20 % Monocytes % 11 % Eosinophils % 0 % Basophils % 0 % Neutrophils # 5.0 (1.3-7.7) k/uL Lymphocytes # 1.6 (1.0-4.8) k/uL Monocytes # 0.9 (0-1.0) k/uL Eosinophils # 0.0 (0-0.7) k/uL Basophils # 0.0 (0-0.2) k/uL PT (9.0-12.0) sec INR (<1.2) APTT (22.0-30.0) sec Sodium 132 L (137-145) mmol/L Potassium 4.2 (3.5-5.1) mmol/L Chloride 95 L (98-107) mmol/L Carbon Dioxide 33 H (22-30) mmol/L Anion Gap 4 mmol/L BUN 19 (9-20) mg/dL Creatinine 0.56 L (0.66-1.25) mg/dL Est GFR (CKD-EPI)AfAm >90 (>60 ml/min/1.73 sqM) Est GFR (CKD-EPI)NonAf >90 (>60 ml/min/1.73 sqM) Glucose 115 H (74-99) mg/dL Plasma Lactic Acid Steven (0.7-2.0) mmol/L Calcium 8.6 (8.4-10.2) mg/dL Total Bilirubin 0.5 (0.2-1.3) mg/dL AST 35 (17-59) U/L ALT 66 H (4-49) U/L Alkaline Phosphatase 71 (38-126) U/L Troponin I (0.000-0.034) ng/mL NT-Pro-B Natriuret Pep 23537 pg/mL Total Protein 5.8 L (6.3-8.2) g/dL Albumin 3.0 L (3.5-5.0) g/dL 12/10/20 12/10/20 12/10/20 Range/Units 21:18 21:18 21:34 WBC (3.8-10.6) k/uL RBC (4.30-5.90) m/uL Hgb (13.0-17.5) gm/dL Hct (39.0-53.0) % MCV (80.0-100.0) fL MCH (25.0-35.0) pg MCHC (31.0-37.0) g/dL RDW (11.5-15.5) % Plt Count (150-450) k/uL MPV Neutrophils % % Lymphocytes % % Monocytes % % Eosinophils % % Basophils % % Neutrophils # (1.3-7.7) k/uL Lymphocytes # (1.0-4.8) k/uL Monocytes # (0-1.0) k/uL Eosinophils # (0-0.7) k/uL Basophils # (0-0.2) k/uL PT 10.9 (9.0-12.0) sec INR 1.0 (<1.2) APTT 21.7 L (22.0-30.0) sec Sodium (137-145) mmol/L Potassium (3.5-5.1) mmol/L Chloride (98-107) mmol/L Carbon Dioxide (22-30) mmol/L Anion Gap mmol/L BUN (9-20) mg/dL Creatinine (0.66-1.25) mg/dL Est GFR (CKD-EPI)AfAm (>60 ml/min/1.73 sqM) Est GFR (CKD-EPI)NonAf (>60 ml/min/1.73 sqM) Glucose (74-99) mg/dL Plasma Lactic Acid Steven 1.0 (0.7-2.0) mmol/L Calcium (8.4-10.2) mg/dL Total Bilirubin (0.2-1.3) mg/dL AST (17-59) U/L ALT (4-49) U/L Alkaline Phosphatase (38-126) U/L Troponin I 0.023 (0.000-0.034) ng/mL NT-Pro-B Natriuret Pep pg/mL Total Protein (6.3-8.2) g/dL Albumin (3.5-5.0) g/dL - Radiology Data Radiology results: report reviewed (Chest x-ray: Extensive pulmonary interstitial fibrosis, there is increasing infiltrates at the bases with right pleural effusion compared to old exam, congestive heart failure is possible ) Disposition Clinical Impression: Dyspnea, Hypoxia, CHF (congestive heart failure), Pulmonary fibrosis Disposition: ADMITTED IP TO THIS HOSP Condition: Stable Is patient prescribed a controlled substance at d/c from ED?: No Time of Disposition: 23:35
[2020-12-10 21:25] LABS: Basophils % (A) 0 %; Eosinophils % (A) 0 %; HCT 37.2 % (39.0-53.0); HGB 12.3 gm/dL (13.0-17.5); Lymphocytes # (A) 1.6 k/uL (1.0-4.8); Lymphocytes % (A) 20 %; MCV 90.8 fL (80.0-100.0); Monocytes # (A) 0.9 k/uL (0-1.0); Monocytes % (A) 11 %; Neutrophils % (A) 65 %; Platelet Count 313 k/uL (150-450); RBC 4.09 m/uL (4.30-5.90); RDW 15.2 % (11.5-15.5); WBC 7.8 k/uL (3.8-10.6)
[2020-12-10 21:39] LABS: ALT 66 U/L (4-49); AST 35 U/L (17-59); African American GFR (CKD) >90 (>60 ml/min/1.73 sqM); Alkaline Phosphatase 71 U/L (38-126); Anion Gap 4 mmol/L; Blood Urea Nitrogen 19 mg/dL (9-20); Calcium 8.6 mg/dL (8.4-10.2); Carbon Dioxide 33 mmol/L (22-30); Chloride 95 mmol/L (98-107); Glucose 115 mg/dL (74-99); Non-African American GFR(CKD) >90 (>60 ml/min/1.73 sqM); Potassium 4.2 mmol/L (3.5-5.1); Sodium 132 mmol/L (137-145); Total Bilirubin 0.5 mg/dL (0.2-1.3); Total Protein 5.8 g/dL (6.3-8.2)
[2020-12-10 21:56] LABS: Prothrombin Time 10.9 sec (9.0-12.0)
[2020-12-10 22:08] LABS: Partial Thromboplastin Time 21.7 sec (22.0-30.0)
--- NOTE | 2020-12-10 22:32 | XR ---
EXAMINATION TYPE: XR chest 2V DATE OF EXAM: 12/10/2020 COMPARISON: 12/06/2020 HISTORY: Pneumonia. Difficulty breathing. TECHNIQUE: 2 views FINDINGS: There is extensive coarse interstitial infiltrate throughout the lungs. Heart is enlarged. There is mild blunting of the right costophrenic angle. Thoracic aorta is atheromatous. IMPRESSION: Extensive pulmonary interstitial fibrosis. There is increasing infiltrate at the lung bas es with right pleural effusion compared to old exam and also 02/19/2019 exam. Congestive heart failure is possible.
[2020-12-10] MEDS ORDERED: FUROSEMIDE 10 MG/ML 4 ML VIAL IV STA (22:52)
[2020-12-10] MEDS ORDERED: HYDROcodone/APAP 5-325MG 1 EACH TAB PO STA (22:59)
[2020-12-11 07:24] LABS: Basophils # (A) 0.1 k/uL (0-0.2); Basophils % (A) 1 %; Eosinophils # (A) 0.1 k/uL (0-0.7); Eosinophils % (A) 1 %; HCT 40.3 % (39.0-53.0); HGB 12.6 gm/dL (13.0-17.5); Lymphocytes # (A) 3.3 k/uL (1.0-4.8); Lymphocytes % (A) 29 %; MCH 28.7 pg (25.0-35.0); MCHC 31.2 g/dL (31.0-37.0); MCV 91.8 fL (80.0-100.0); Mean Platelet Volume 6.9; Monocytes # (A) 0.7 k/uL (0-1.0); Monocytes % (A) 6 %; Neutrophils # (A) 7.2 k/uL (1.3-7.7); Neutrophils % (A) 62 %; Platelet Count 363 k/uL (150-450); RBC 4.39 m/uL (4.30-5.90); RDW 15.6 % (11.5-15.5); WBC 11.6 k/uL (3.8-10.6)
[2020-12-11 07:42] LABS: ALT 68 U/L (4-49); AST 34 U/L (17-59); African American GFR (CKD) >90 (>60 ml/min/1.73 sqM); Albumin 2.9 g/dL (3.5-5.0); Alkaline Phosphatase 75 U/L (38-126); Blood Urea Nitrogen 17 mg/dL (9-20); Calcium 8.3 mg/dL (8.4-10.2); Chloride 91 mmol/L (98-107); Glucose 89 mg/dL (74-99); Non-African American GFR(CKD) >90 (>60 ml/min/1.73 sqM); Sodium 132 mmol/L (137-145); Total Bilirubin 0.6 mg/dL (0.2-1.3); Total Protein 5.6 g/dL (6.3-8.2)
[2020-12-11 07:48] LABS: Anion Gap 3 mmol/L; Carbon Dioxide 38 mmol/L (22-30)
[2020-12-11] MEDS ORDERED: MELATONIN 3 MG TABLET PO PRN (08:18)
[2020-12-11] MEDS ORDERED: BENZONATATE 100 MG CAP PO PRN (08:18)
[2020-12-11] MEDS ORDERED: IPRATROPIUM-ALBUTEROL 3 ML NEB INHALATION PRN (08:23)
[2020-12-11] MEDS: IPRATROPIUM-ALBUTEROL 3 ML NEB INHALATION SCH ×4 (08:46→20:10)
[2020-12-11] MEDS ORDERED: predniSONE 50 MG TAB PO SCH (09:00)
--- NOTE | 2020-12-11 09:10 | P.CRDCN ---
History of Present Illness Consult date: 12/11/20 Chief complaint: Shortness of breath History of present illness: This is a very pleasant 70-year-old gentleman who requested to severe on the obs ervation unit for further evaluation of shortness of breath and congestive heart failure. The patient just was admitted to the hospital earlier this week with increasing shortness of breath and he was diagnosed at that point with COPD exacerbation with a component of heart failure. The patient was diuresed. He underwent an echo during that admission that revealed normal left ventricular systolic function with mild aortic stenosis but no significant valvular abnormalities. For some reason the patient was discharged home without any diuretics. He presented back to the hospital complaining of increasing shortness of breath. He describes mainly exertional dyspnea but no orthopnea and no PND. No lower extremities edema. No symptoms of chest pain or chest discomfort. No change in the weight. In the emergency department he was given Lasix with improvement in the shortness of breath. He stated that he was compliant with all of his medications but unfortunately he was not taking diur etics when he was discharged home first time. He stated that he was compliant with his diet and as a matter of fact he has not been having good appetite lately. The chest x-ray showed findings consistent with chronic lung disease as well as a component of heart failure. NT proBNP came in to be elevated. On examination he does have a JVD up to his earlobe. The patient definitely has a component of heart failure. I'm going to start the patient on Lasix 40 mg IV twice a day with continue monitoring the kidney function and electrolytes and continue following up with the patient. Past Medical History Past Medical History: COPD, Hyperlipidemia, Osteoarthritis (OA), Pneumonia, Rheumatoid Arthritis (RA), Sleep Apnea/CPAP/BIPAP Additional Past Medical History / Comment(s): COPD, chronic hypoxic respiratory failure previous history of pneumoperitoneum related to a perforated duodenal ulcer, repair of an umbilical hernia, chronic back pain, History of Any Multi-Drug Resistant Organisms: None Reported Past Surgical History: Orthopedic Surgery Additional Past Surgical History / Comment(s): colonoscopy, repair of a perforated duodenal ulcer and repair of an incarcerated umbilical hernia Past Anesthesia/Blood Transfusion Reactions: No Reported Reaction Past Psychological History: Anxiety, Depression Smoking Status: Former smoker Past Alcohol Use History: Daily Past Drug Use History: None Reported - Past Family History Father Family Medical History: Cancer Additional Family Medical History / Comment(s): Father of leukemia. Mother Family Medical History: Cancer, CVA/TIA, Dementia, Diabetes Mellitus Additional Family Medical History / Comment(s): Mother is 88yrs old with history of dementia and colon cancer. Sister(s) Additional Family Medical History / Comment(s): Patient 3 sons with no major medical problems. Medications and Allergies Home Medications Medication Instructions Recorded Confirmed Type Albuterol Inhaler [Ventolin Hfa 2 puff INHALATION RT-QID PRN 01/12/20 12/10/20 History Inhaler] Cholecalciferol [Vitamin D3 (25 50 mcg PO DAILY 01/12/20 12/10/20 History Mcg = 1000 Iu)] HYDROcodone/APAP 10-325MG [[place] 1 tab PO TID PRN 01/12/20 12/10/20 History 10-325] Metoprolol Succinate [Toprol XL] 25 mg PO DAILY 01/12/20 12/10/20 History Multivitamins, Thera [Multivitamin 1 tab PO DAILY 01/12/20 12/10/20 History (formulary)] Omeprazole [PriLOSEC] 40 mg PO DAILY 01/12/20 12/10/20 History Sertraline [Zoloft] 150 mg PO DAILY 01/12/20 12/10/20 History Amitriptyline HCl [Elavil] 10 mg PO HS 12/06/20 12/10/20 History Benzonatate [Tessalon Perles] 200 mg PO TID PRN 12/06/20 12/10/20 History Celecoxib [CeleBREX] 200 mg PO DAILY 12/06/20 12/10/20 History Gabapentin [Neurontin] 300 mg PO HS 12/06/20 12/10/20 History predniSONE 5 mg PO Q48H 12/06/20 12/10/20 History Alendronate Sodium 70 mg PO MO 12/10/20 12/10/20 History Ascorbic Acid [Vitamin C] 1,000 mg PO DAILY 12/10/20 12/10/20 History Atorvastatin [Lipitor] 40 mg PO HS #30 tab 12/10/20 12/10/20 Rx Azithromycin [Zithromax] 500 mg PO DAILY #3 tab 12/10/20 12/10/20 Rx Budesonide [Pulmicort] 1 mg INHALATION RT-BID #60 04/10/21 04/10/21 Rx inhalation Clopidogrel [Plavix] 75 mg PO DAILY #30 tab 12/10/20 12/10/20 Rx Fluticasone Nasal [place] [Flonase 2 spray EA NOSTRIL DAILY #1 spr 12/10/20 12/10/20 Rx Nasal [place]] Fluticasone/Umeclidin/Vilanter 1 puff INHALATION RT-DAILY 12/10/20 12/10/20 History [Trelegy Ellipta 100-62.5-25] Ipratropium-Albuterol Nebulize 3 ml INHALATION RT-QID 12/10/20 12/10/20 History [Duoneb 0.5 mg-3 mg/3 ml Soln] Melatonin 3 mg PO HS PRN 12/10/20 12/10/20 History predniSONE [Deltasone] See Taper PO DIRECTED 12/10/20 12/10/20 History Allergies Allergy/AdvReac Type Severity Reaction Status Date / Time amoxicillin AdvReac Nausea & Verified 12/10/20 22:43 Vomiting Physical Exam Vitals: Vital Signs Temp Pulse Pulse Resp BP BP Pulse Ox 12/11/20 08:41 97.9 F 61 17 133/81 96 12/11/20 05:19 82 20 137/84 93 L 12/10/20 20:26 98.9 F 58 L 26 H 124/74 96 Intake and Output 12/10/20 12/11/20 12/11/20 22:59 06:59 14:59 Other: Weight 68.039 kg - Constitutional General appearance: no acute distress - Respiratory Respiratory: bilateral: rales - Cardiovascular Rhythm: regular Heart sounds: normal: S1, S2 Abnormal Heart Sounds: systolic murmur Results 12/11/20 07:07 12/11/20 07:07 Cardiac Enzymes 12/10/20 12/10/20 12/11/20 Range/Units 21:18 21:18 07:07 AST 35 34 (17-59) U/L Troponin I 0.023 (0.000-0.034) ng/mL Coagulation 12/10/20 Range/Units 21:34 PT 10.9 (9.0-12.0) sec APTT 21.7 L (22.0-30.0) sec CBC 12/10/20 12/11/20 Range/Units 21:10 07:07 WBC 7.8 11.6 H (3.8-10.6) k/uL RBC 4.09 L 4.39 (4.30-5.90) m/uL Hgb 12.3 L 12.6 L (13.0-17.5) gm/dL Hct 37.2 L 40.3 (39.0-53.0) % Plt Count 313 363 (150-450) k/uL Comprehensive Metabolic Panel 12/10/20 12/11/20 Range/Units 21:18 07:07 Sodium 132 L 132 L (137-145) mmol/L Potassium 4.2 4.0 (3.5-5.1) mmol/L Chloride 95 L 91 L (98-107) mmol/L Carbon Dioxide 33 H 38 H (22-30) mmol/L BUN 19 17 (9-20) mg/dL Creatinine 0.56 L 0.63 L (0.66-1.25) mg/dL Glucose 115 H 89 (74-99) mg/dL Calcium 8.6 8.3 L (8.4-10.2) mg/dL AST 35 34 (17-59) U/L ALT 66 H 68 H (4-49) U/L Alkaline Phosphatase 71 75 (38-126) U/L Total Protein 5.8 L 5.6 L (6.3-8.2) g/dL Albumin 3.0 L 2.9 L (3.5-5.0) g/dL Current Medications Generic Name Dose Route Start Last Admin Trade Name Freq PRN Reason Stop Dose Admin Hydrocodone Bitart/Acetaminophen 1 each 12/10/20 23:25 Hydrocodone/Apap 10-325mg 1 Each Tab PO TID PRN Pain Albuterol/Ipratropium 3 ml 12/11/20 08:00 12/11/20 08:46 Ipratropium-Albuterol 3 Ml Neb INHALATION Not Given RT-QID LUCAS Albuterol/Ipratropium 3 ml 12/11/20 08:23 Ipratropium-Albuterol 3 Ml Neb INHALATION RT-Q2H PRN Shortness Of Breath Or Wheezing Amitriptyline HCl 10 mg 12/11/20 21:00 Amitriptyline Hcl 10 Mg Tab PO HS LUCAS Atorvastatin Calcium 40 mg 12/11/20 21:00 Atorvastatin 40 Mg Tab PO HS LUCAS Azithromycin 500 mg 12/11/20 09:00 Azithromycin 500 Mg Tab PO DAILY [facility] Benzonatate 200 mg 12/11/20 08:18 Benzonatate 100 Mg Cap PO TID PRN Cough Budesonide 1 mg 12/11/20 20:00 Budesonide 1 Mg/2 Ml Nebu INHALATION RT-BID [facility] Cholecalciferol 50 mcg 12/11/20 09:00 Cholecalciferol 25 Mcg (1000 Iu) Tablet PO DAILY [facility] Clopidogrel Bisulfate 75 mg 12/11/20 09:00 Clopidogrel 75 Mg Tab PO DAILY [facility] Fluticasone Propionate 2 spray 12/11/20 09:00 Fluticasone 50mcg/[place] Nasal 16gm EA NOSTRIL DAILY [facility] Furosemide 40 mg 12/11/20 09:15 Furosemide 10 Mg/Ml 4 Ml Vial IV Q8HR [facility] Gabapentin 300 mg 12/11/20 21:00 Gabapentin 300 Mg Cap PO HS [facility] Melatonin 3 mg 12/11/20 08:18 Melatonin 3 Mg Tablet PO HS PRN Insomnia Meloxicam 7.5 mg 12/11/20 09:00 Meloxicam 7.5 Mg Tab PO DAILY [facility] Metoprolol Succinate 25 mg 12/11/20 09:00 Metoprolol Succinate (Er) 25 Mg Tab.Er.24h PO DAILY [facility] Multivitamins 1 each 12/11/20 09:00 Multivitamins, Thera 1 Each Tab PO DAILY [facility] Pantoprazole Sodium 40 mg 12/11/20 09:00 Pantoprazole 40 Mg Tablet PO DAILY [facility] Prednisone 50 mg 12/11/20 09:00 Prednisone 50 Mg Tab PO DAILY [facility] Sertraline HCl 150 mg 12/11/20 09:00 Sertraline 50 Mg Tab PO DAILY [facility] Intake and Output 12/10/20 12/11/20 12/11/20 22:59 06:59 14:59 Other: Weight 68.039 kg 12/11/20 07:07 12/11/20 07:07 Assessment and Plan Assessment: Assessment #1 acute exacerbation of heart failure with preserved ejection fraction. #2 possible a component of COPD exacerbation #3 shortness of breath likely secondary to combination of the above #4 mild aortic stenosis by recent echocardiogram #5 multiple comorbid conditions Plan #1 start the patient on Lasix at 40 mg twice a day #2 monitor the kidney function and electrolytes #3 no need to repeat the echocardiogram at this point in view of the recent echo showing normal LV function #4 patient to be seen and evaluated by the pulmonary service #5 follow-up with the patient
[2020-12-11] MEDS ORDERED: FUROSEMIDE 10 MG/ML 4 ML VIAL IV SCH (09:15)
[2020-12-11] MEDS: SERTRALINE 50 MG TAB PO SCH (09:43)
[2020-12-11] MEDS: MULTIVITAMINS, THERA 1 EACH TAB PO SCH (09:43)
[2020-12-11] MEDS: MELOXICAM 7.5 MG TAB PO SCH (09:43)
[2020-12-11] MEDS: CHOLECALCIFEROL 25 MCG (1000 IU) TABLET PO SCH (09:43)
[2020-12-11] MEDS: PANTOPRAZOLE 40 MG TABLET PO SCH (09:44)
[2020-12-11] MEDS: METOPROLOL SUCCINATE (ER) 25 MG TAB.ER.24H PO SCH (09:44)
[2020-12-11] MEDS: AZITHROMYCIN 500 MG TAB PO SCH (09:44)
[2020-12-11] MEDS: CLOPIDOGREL 75 MG TAB PO SCH (09:44)
[2020-12-11] MEDS: FUROSEMIDE 10 MG/ML 4 ML VIAL IV SCH ×2 (09:48→20:35)
[2020-12-11] MEDS: FLUTICASONE 50MCG/SPRAY NASAL 16GM EA NOSTRIL SCH (09:48)
--- NOTE | 2020-12-11 10:53 | P.HPIM ---
History of Present Illness H&P Date: 12/11/20 HISTORY OF PRESENT ILLNESS This is a 70-year-old male patient of Dr. Holbrook and Dr. Mireles with past medical history of advanced steroid-dependent COPD, hyperlipidemia, rheumatoid arthritis, obstructive sleep apnea unable to tolerate CPAP, chronic hypoxic respiratory failure on home O2 at 3 L nasal cannula, generalized osteoarthritis, chronic back pain pseudomonas in sputum on previous admission secondary to colonization or pseudomonal pneumonia. Known FVC of 72% and FEV1 of 46%. History of perforated duodenal ulcer status post exploratory laparotomy with repair of perforated duodenal ulcer and repair of incarcerated umbilical hernia. Patient was hospitalized for COPD exacerbation and discharged home on December 10. According to patient's family, his oxygen tank only goes to 5 L and this all oxygen saturations were in the 70s to low 90s at best with his home oxygen. Patient was complaining of dyspnea since being discharged. No chest pain. No dizziness or lightheadedness. Echocardiogram on last admission reveals EF of 55-60% with mild concentric left ventricular hypertrophy, mild aortic valve sclerosis, trace aortic regurgitation, mild mitral regurgitation, mild tricuspid regurgitation, moderate pulmonary hypertension. Patient came into [facility] emergency center for evaluation. Patient was afebrile, heart rate 58, respiratory rate 26, blood pressure 124/74, pulse ox 96% on 6 L nasal cannula. EKG was in normal sinus rhythm with occasional PACs and no acute ST changes. WBC 7.8, hemoglobin 12.3, platelet count 313. Sodium 132, potassium 4.2, chloride 95, CO2 33, BUN 19 and creatinine 0.56. AST 66 otherwise liver function tests were normal. ProBNP 11,800. INR 1.0. Lactic acid 1.0. Troponin 0.0-3. Chest x-ray reveals extensive pulmonary interstitial fibrosis. Increasing infiltrate at the lung bases with right pleural effusion. Congestive heart failure possible. Patient was given 1 dose of IV Lasix in the emergency center and admitted to the [facility] floor with consult in place for pulmonary medicine and cardiology. Patient has been started on his home medications including oral prednisone. REVIEW OF SYSTEMS Constitutional: No fever, no chills, no night sweats. No weight change. No weakness, fatigue or lethargy. No daytime sleepiness. EENT: No headache. No blurred vision or double vision, no loss of vision. No loss of Hearing, no ringing in the ears, no dizziness. No nasal drainage or congestion. No epistaxis. No sore throat. Lungs: Reports shortness of breath, Reports cough, Reports sputum production. No wheezing. Cardiovascular: No chest pain, no lower extremity edema. No palpitations. No paroxysmal nocturnal dyspnea. No orthopnea. No lightheadedness or dizziness. No syncopal episodes. Abdominal: No abdominal pain. No nausea, vomiting. No diarrhea. No constipation. No bloody or tarry stools.. No loss of appetite. Genitourinary: No dysuria, increased frequency, urgency. No urinary retention. Musculoskeletal: No myalgias. No muscle weakness, no gait dysfunction, no frequent falls. No back pain. No neck pain. Integumentary: No wounds, no lesions. No rash or pruritus. No unusual bruising. No change in hair or nails. Neurologic: No aphasia. No facial droop. No change in mentation. No head injury. No headache. No paralysis. No paresthesia. Psychiatric: No depression. No anxiety. No mood swings. Endocrine: No abnormal blood sugars. No weight change. SOCIAL HISTORY Patient smoked 2 packs per day for 40+ years. He quit 7 years ago. He denies any illicit drug use or marijuana use. He drinks 2 beers per day. 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 patient is has adult children wo are involved. FAMILY HISTORY Father of leukemia. Mother is 89 yrs old with history of dementia and colon cancer. Patient has 1 full sister with history of lung cancer. Patient has one half-sister with adrenal problems. Patient does not have any brothers. Patient 3 sons with no major medical problems. PHYSICAL EXAMINATION Gen: This is 70-year-old male. Patient is resting in bed appears to be comfortable and in no acute distress. HEENT: Head is atraumatic, normocephalic. Pupils equal, round. Sclerae is anicteric. NECK: Supple. No JVD. No lymphadenopathy. No thyromegaly. LUNGS: No wheezing. Diminished at bases. Crackles bilaterally. No intercostal retractions. HEART: Regular rate and rhythm. Systolic murmur. Sinus tachycardia. ABDOMEN: Soft. Bowel sounds are present. No masses. No tenderness. Bladder distention. EXTREMITIES: No pedal edema. No calf tenderness. Dorsalis pedis palpable bilaterally. NEUROLOGICAL: Patient is awake, alert and oriented x3. Cranial nerves 2 through 12 are grossly intact. ASSESSMENT AND PLAN 1. Acute on chronic hypoxic respiratory failure secondary to acute diastolic heart failure. Patient is status post 1 dose of IV Lasix and will be started on Lasix 40 mg IV every 12 hours. Cardiology consult appreciated. Recent echocardiogram as above. Continue azithromycin 500 mg daily, Tessalon Perles as needed, Pulmicort 1 mg twice daily, DuoNeb treatments 4 times daily and as needed, prednisone oral 50 mg daily. Pulmonary medicine consult. 2. Advanced COPD with pulmonary fibrosis, steroid dependent and chronic hypoxic and hypercapnic respiratory failure on home O2 at 3 L. Continue as in #1. 3. Elevated troponins on last admission secondary to possible type II DE. 4. Moderate pulmonary hypertension. 5. Hypertension. Continue Toprol-XL 25 mg daily. 6. Rheumatoid arthritis, stable. 7. Hyperlipidemia. 8. Obstructive sleep apnea unable to tolerate CPAP. 9. Chronic back pain and generalized osteoarthritis. Continue [place]av[place] as needed, gabapentin 300 mg at bedtime 10. History of perforated duodenal ulcer status post exploratory laparotomy with repair of perforated duodenal ulcer and repair of incarcerated umbilical hernia. 11. Generalized anxiety disorder and recurrent depression. Continue Zoloft 50 mg daily, Elavil 10 mg at bedtime. 12. DVT prophylaxis. Heparin subcu. 13. GI prophylaxis. Continue Protonix daily. 14. Insomnia. Continue Elavil 10 mg at bedtime.. 15. Chronic compression fracture. Continue current pain management with Inavale. 16. Urinary retention. PVR every shift. Patient will be admitted to the hospital for a minimum of 2 night stay. DISCHARGE PLAN Most likely return home with VNA. Patient has been at [facility] in the past. Consult PT and OT. Impression and plan of care have been directed as dictated by the signing physician. [place] nurse practitioner acting as scribe for signing phys ician. Past Medical History Past Medical History: COPD, Hyperlipidemia, Osteoarthritis (OA), Pneumonia, Rheumatoid Arthritis (RA), Sleep Apnea/CPAP/BIPAP Additional Past Medical History / Comment(s): COPD, chronic hypoxic respiratory failure previous history of pneumoperitoneum related to a perforated duodenal ulcer, repair of an umbilical hernia, chronic back pain, History of Any Multi-Drug Resistant Organisms: None Reported Past Surgical History: Orthopedic Surgery Additional Past Surgical History / Comment(s): colonoscopy, repair of a perforated duodenal ulcer and repair of an incarcerated umbilical hernia Past Anesthesia/Blood Transfusion Reactions: No Reported Reaction Past Psychological History: Anxiety, Depression Smoking Status: Former smoker Past Alcohol Use History: Daily Past Drug Use History: None Reported - Past Family History Father Family Medical History: Cancer Additional Family Medical History / Comment(s): Father of leukemia. Mother Family Medical History: Cancer, CVA/TIA, Dementia, Diabetes Mellitus Additional Family Medical History / Comment(s): Mother is 88yrs old with history of dementia and colon cancer. Sister(s) Additional Family Medical History / Comment(s): Patient 3 sons with no major medical problems. Medications and Allergies Home Medications Medication Instructions Recorded Confirmed Type Albuterol Inhaler [Ventolin Hfa 2 puff INHALATION RT-QID PRN 01/12/20 12/10/20 History Inhaler] Cholecalciferol [Vitamin D3 (25 50 mcg PO DAILY 01/12/20 12/10/20 History Mcg = 1000 Iu)] HYDROcodone/APAP 10-325MG [[place] 1 tab PO TID PRN 01/12/20 12/10/20 History 10-325] Metoprolol Succinate [Toprol XL] 25 mg PO DAILY 01/12/20 12/10/20 History Multivitamins, Thera [Multivitamin 1 tab PO DAILY 01/12/20 12/10/20 History (formulary)] Omeprazole [PriLOSEC] 40 mg PO DAILY 01/12/20 12/10/20 History Sertraline [Zoloft] 150 mg PO DAILY 01/12/20 12/10/20 History Amitriptyline HCl [Elavil] 10 mg PO HS 12/06/20 12/10/20 History Benzonatate [Tessalon Perles] 200 mg PO TID PRN 12/06/20 12/10/20 History Celecoxib [CeleBREX] 200 mg PO DAILY 12/06/20 12/10/20 History Gabapentin [Neurontin] 300 mg PO HS 12/06/20 12/10/20 History predniSONE 5 mg PO Q48H 12/06/20 12/10/20 History Alendronate Sodium 70 mg PO MO 12/10/20 12/10/20 History Ascorbic Acid [Vitamin C] 1,000 mg PO DAILY 12/10/20 12/10/20 History Atorvastatin [Lipitor] 40 mg PO HS #30 tab 12/10/20 12/10/20 Rx Azithromycin [Zithromax] 500 mg PO DAILY #3 tab 12/10/20 12/10/20 Rx Budesonide [Pulmicort] 1 mg INHALATION RT-BID #60 12/10/20 12/10/20 Rx inhalation Clopidogrel [Plavix] 75 mg PO DAILY #30 tab 12/10/20 12/10/20 Rx Fluticasone Nasal [place] [Flonase 2 spray EA NOSTRIL DAILY #1 spr 12/10/20 12/10/20 Rx Nasal [place]] Fluticasone/Umeclidin/Vilanter 1 puff INHALATION RT-DAILY 12/10/20 12/10/20 History [Trelemely Ellipta 100-62.5-25] Ipratropium-Albuterol Nebulize 3 ml INHALATION RT-QID 12/10/20 12/10/20 History [Duoneb 0.5 mg-3 mg/3 ml Soln] Melatonin 3 mg PO HS PRN 12/10/20 12/10/20 History predniSONE [Deltasone] See Taper PO DIRECTED 12/10/20 12/10/20 History Allergies Allergy/AdvReac Type Severity Reaction Status Date / Time amoxicillin AdvReac Nausea & Verified 12/10/20 22:43 Vomiting Physical Exam Vitals: Vital Signs Temp Pulse Resp BP Pulse Ox 12/11/20 05:19 82 20 137/84 93 L 12/10/20 20:26 98.9 F 58 L 26 H 124/74 96 Intake and Output 12/10/20 12/11/20 12/11/20 22:59 06:59 14:59 Other: Weight 68.039 kg Results CBC & Chem 7: 12/11/20 07:07 12/11/20 07:07 Labs: Abnormal Lab Results - Last 24 Hours (Table) 12/10/20 12/10/20 12/10/20 Range/Units 21:10 21:18 21:34 WBC (3.8-10.6) k/uL RBC 4.09 L (4.30-5.90) m/uL Hgb 12.3 L (13.0-17.5) gm/dL Hct 37.2 L (39.0-53.0) % RDW (11.5-15.5) % APTT 21.7 L (22.0-30.0) sec Sodium 132 L (137-145) mmol/L Chloride 95 L (98-107) mmol/L Carbon Dioxide 33 H (22-30) mmol/L Creatinine 0.56 L (0.66-1.25) mg/dL Glucose 115 H (74-99) mg/dL Calcium (8.4-10.2) mg/dL ALT 66 H (4-49) U/L Total Protein 5.8 L (6.3-8.2) g/dL Albumin 3.0 L (3.5-5.0) g/dL 12/11/20 12/11/20 Range/Units 07:07 07:07 WBC 11.6 H (3.8-10.6) k/uL RBC (4.30-5.90) m/uL Hgb 12.6 L (13.0-17.5) gm/dL Hct (39.0-53.0) % RDW 15.6 H (11.5-15.5) % APTT (22.0-30.0) sec Sodium 132 L (137-145) mmol/L Chloride 91 L (98-107) mmol/L Carbon Dioxide 38 H (22-30) mmol/L Creatinine 0.63 L (0.66-1.25) mg/dL Glucose (74-99) mg/dL Calcium 8.3 L (8.4-10.2) mg/dL ALT 68 H (4-49) U/L Total Protein 5.6 L (6.3-8.2) g/dL Albumin 2.9 L (3.5-5.0) g/dL
--- NOTE | 2020-12-11 15:12 | P.CNPUL ---
History of Present Illness Consult date: 12/11/20 Requesting physician: Cole Kirk Reason for consult: dyspnea, cough, COPD, hypoxemia, pulmonary fibrosis, abnormal CXR/CT Chief complaint: Shortness of breath, cough, wheezing. History of present illness: 70-year-old male who presents to the emergency department on December 10, with complaints of shortness of breath. The patient was just discharged home yesterday, and came back in on the same day, complaining of increasing shortness of breath. The patient was begging to be discharged. I told him he should not go home because if he did, he would be right back and here again. He was discha rged home on 6 L. He normally is on 3 L at home. Sure enough, the patient comes back in with increasing shortness of breath, cough, chest congestion, minimal phlegm production, and wheezing. He denies any fever or chills. He denies any chest pain or chest discomfort. He was seen in the emergency room and readmitted to the hospital. He is currently up on the sixth floor. He is on 6 L nasal cannula. He is not receiving any IV fluids. On 5 L nasal cannula, and his saturations are 88%. He is not appear to be in any great distress at this time. White count 11.6, hemoglobin 12.6, hematocrit 40.3, platelet count 363,000. Sodium 132, potassium 4 chloride 98, CO2 38, anion gap is 3 BUN 17, creatinine 0.63. Coronavirus testing was negative. Chest x-ray shows significant and extensive fibrosis. In addition, there are small effusions. Review of Systems REVIEW OF SYSTEMS: CONSTITUTIONAL: Weakness and fatigue NEUROLOGIC: [ Negative.] HEENT: [ Negative.] CARDIAC: [Negative.] PULMONARY: Shortness of breath, wheezing, chest congestion, and cough. GI: [Negative.] : [Negative.] RHEUMATOLOGIC: [ Negative.] IMMUNOLOGIC: [ Negative.] ENDOCRINE: [Negative. ] DERMATOLOGIC: [Negative.] Past Medical History Past Medical History: Heart Failure, COPD, Hyperlipidemia, Osteoarthritis (OA), Pneumonia, Rheumatoid Arthritis (RA), Sleep Apnea/CPAP/BIPAP Additional Past Medical History / Comment(s): COPD, chronic hypoxic respiratory failure previous history of pneumoperitoneum related to a perforated duodenal ulcer, repair of an umbilical hernia, chronic back pain, back stenosis. History of Any Multi-Drug Resistant Organisms: None Reported Past Surgical History: Orthopedic Surgery Additional Past Surgical History / Comment(s): colonoscopy, repair of a perforated duodenal ulcer and repair of an incarcerated umbilical hernia Past Anesthesia/Blood Transfusion Reactions: No Reported Reaction Past Psychological History: Anxiety, Depression Additional Psychological History / Comment(s): Pt resides with his spouse of 38 yrs. He has home oxygen which he wears at 3-3.5L/NC. He has a nebulizer. Smoking Status: Former smoker Past Alcohol Use History: Daily Additional Past Alcohol Use History / Comment(s): Patient smoked 2 packs per day for 40+ years. He quit 6 years ago. He denies any illicit drug use or marijuana use. He drinks 2 beers per day but none since previous admission and December. 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 Mother Family Medical History: Cancer, CVA/TIA, Dementia, Diabetes Mellitus Additional Family Medical History / Comment(s): Mother is 88yrs old with history of dementia and colon cancer. Sister(s) Additional Family Medical History / Comment(s): Patient 3 sons with no major medical problems. Medications and Allergies Home Medications Medication Instructions Recorded Confirmed Type Albuterol Inhaler [Ventolin Hfa 2 puff INHALATION RT-QID PRN 01/12/20 12/10/20 History Inhaler] Cholecalciferol [Vitamin D3 (25 50 mcg PO DAILY 01/12/20 12/10/20 History Mcg = 1000 Iu)] HYDROcodone/APAP 10-325MG [Gonvick 1 tab PO TID PRN 01/12/20 12/10/20 History 10-325] Metoprolol Succinate [Toprol XL] 25 mg PO DAILY 01/12/20 12/10/20 History Multivitamins, Thera [Multivitamin 1 tab PO DAILY 01/12/20 12/10/20 History (formulary)] Omeprazole [PriLOSEC] 40 mg PO DAILY 01/12/20 12/10/20 History Sertraline [Zoloft] 150 mg PO DAILY 01/12/20 12/10/20 History Amitriptyline HCl [Elavil] 10 mg PO HS 12/06/20 12/10/20 History Benzonatate [Tessalon Perles] 200 mg PO TID PRN 12/06/20 12/10/20 History Celecoxib [CeleBREX] 200 mg PO DAILY 12/06/20 12/10/20 History Gabapentin [Neurontin] 300 mg PO HS 12/06/20 12/10/20 History predniSONE 5 mg PO Q48H 12/06/20 12/10/20 History Alendronate Sodium 70 mg PO MO 12/10/20 12/10/20 History Ascorbic Acid [Vitamin C] 1,000 mg PO DAILY 12/10/20 12/10/20 History Atorvastatin [Lipitor] 40 mg PO HS #30 tab 12/10/20 12/10/20 Rx Azithromycin [Zithromax] 500 mg PO DAILY #3 tab 12/10/20 12/10/20 Rx Budesonide [Pulmicort] 1 mg INHALATION RT-BID #60 12/10/20 12/10/20 Rx inhalation Clopidogrel [Plavix] 75 mg PO DAILY #30 tab 12/10/20 12/10/20 Rx Fluticasone Nasal [place] [Flonase 2 spray EA NOSTRIL DAILY #1 spr 12/10/20 12/10/20 Rx Nasal [place]] Fluticasone/Umeclidin/Vilanter 1 puff INHALATION RT-DAILY 12/10/20 12/10/20 History [Trelegy Ellipta 100-62.5-25] Ipratropium-Albuterol Nebulize 3 ml INHALATION RT-QID 12/10/20 12/10/20 History [Duoneb 0.5 mg-3 mg/3 ml Soln] Melatonin 3 mg PO HS PRN 12/10/20 12/10/20 History predniSONE [Deltasone] See Taper PO DIRECTED 12/10/20 12/10/20 History Allergies Allergy/AdvReac Type Severity Reaction Status Date / Time amoxicillin AdvReac Nausea & Verified 12/10/20 22:43 Vomiting Physical Exam Osteopathic Statement: *. No significant issues noted on an osteopathic structural exam other than those noted in the History and Physical/Consult. Vitals: Vital Signs Temp Pulse Pulse Resp BP BP Pulse Ox 12/11/20 14:34 97.6 F 83 18 117/68 97 12/11/20 14:00 83 18 12/11/20 10:00 61 17 12/11/20 08:41 97.9 F 61 17 133/81 96 12/11/20 05:19 82 20 137/84 93 L 12/10/20 20:26 98.9 F 58 L 26 H 124/74 96 Intake and Output 12/10/20 12/11/20 12/11/20 22:59 06:59 14:59 Intake Total 300 Balance 300 Intake: Oral 300 Other: Voiding Method Toilet Urinal # Voids 2 Weight 68.039 kg 68.039 kg No acute distress, oriented 3. Currently on 6 L nasal cannula, with saturations 90%. No audible wheezing, use of accessory muscles, or conversational dyspnea. HEENT examination is grossly unremarkable. Neck supple. Full range of motion. No adenopathy thyromegaly or neck vein distention. Cardiovascular examination reveals regular rhythm rate. S1-S2 normal. No S3 or S4. No discernible murmur noted. Heart rate 83 bpm. Lungs reveal bilateral rhonchi, and basilar crackles. No wheezes. Breath sounds are diminished throughout. There is prolongation on forced maneuver. Abdomen soft bowel sounds are heard. No masses or tenderness. Extremities are intact. No cyanosis clubbing or edema. Skin is without rash or lesion. Neurologic examination is brief but nonfocal. Results - Laboratory Findings CBC and BMP: 12/11/20 07:07 12/11/20 07:07 PT/INR, D-dimer PT 10.9 sec (9.0-12.0) 12/10/20 21:34 INR 1.0 (<1.2) 12/10/20 21:34 Abnormal lab findings: Abnormal Labs 12/10/20 12/10/20 12/10/20 21:10 21:18 21:34 WBC RBC 4.09 L Hgb 12.3 L Hct 37.2 L RDW APTT 21.7 L Sodium 132 L Chloride 95 L Carbon Dioxide 33 H Creatinine 0.56 L Glucose 115 H Calcium ALT 66 H Total Protein 5.8 L Albumin 3.0 L 12/11/20 12/11/20 07:07 07:07 WBC 11.6 H RBC Hgb 12.6 L Hct RDW 15.6 H APTT Sodium 132 L Chloride 91 L Carbon Dioxide 38 H Creatinine 0.63 L Glucose Calcium 8.3 L ALT 68 H Total Protein 5.6 L Albumin 2.9 L - Diagnostic Findings Chest x-ray: image reviewed Assessment and Plan Assessment: Acute hypoxemic respiratory failure, secondary to severe COPD, and pulmonary fibrosis. Stage III/severe COPD, with an FEV1 that is 46% of predicted. History of rheumatoid arthritis. History of pulmonary fibrosis, suspect rheumatoid arthritis associated pulmonary fibrosis. History of obstructive sleep apnea syndrome, currently not on CPAP. Chronic back pain. History of hyperlipidemia. History of osteoarthritis. Plan: Plan dated 12/11/2020. I begged the patient not to go home, because I told him he would probably come right back into the hospital, which is what happened. When he was discharged, he was still on 6 L nasal cannula. Anyway, the patient will be started back on usual medications including DuoNeb, Pulmicort, Perforomist, and corticosteroids. I will also give him oral antibiotic. Prognosis is guarded. Once discharged, he'll see me back in the office. Time with Patient: Greater than 30
[2020-12-11] MEDS: methylPREDNISolone SOD SUCCI 125 MG/2 ML VIAL IV SCH (17:25)
[2020-12-11] MEDS: FORMOTEROL FUMARATE 20 MCG/2 ML NEBU INHALATION SCH (20:10)
[2020-12-11] MEDS: BUDESONIDE 1 MG/2 ML NEBU INHALATION SCH (20:10)
[2020-12-11] MEDS: HYDROcodone/APAP 10-325MG 1 EACH TAB PO PRN (20:34)
[2020-12-11] MEDS: GABAPENTIN 300 MG CAP PO SCH (20:35)
[2020-12-11] MEDS: ATORVASTATIN 40 MG TAB PO SCH (20:35)
[2020-12-11] MEDS: AMITRIPTYLINE HCL 10 MG TAB PO SCH (20:40)
[2020-12-12] MEDS: methylPREDNISolone SOD SUCCI 125 MG/2 ML VIAL IV SCH ×5 (00:49→23:57)
[2020-12-12] MEDS: FLUTICASONE 50MCG/SPRAY NASAL 16GM EA NOSTRIL SCH (07:59)
[2020-12-12] MEDS: MELOXICAM 7.5 MG TAB PO SCH (08:00)
[2020-12-12] MEDS: AZITHROMYCIN 500 MG TAB PO SCH (08:00)
[2020-12-12] MEDS: PANTOPRAZOLE 40 MG TABLET PO SCH (08:01)
[2020-12-12] MEDS: METOPROLOL SUCCINATE (ER) 25 MG TAB.ER.24H PO SCH (08:02)
[2020-12-12] MEDS: CLOPIDOGREL 75 MG TAB PO SCH (08:02)
[2020-12-12] MEDS: MULTIVITAMINS, THERA 1 EACH TAB PO SCH (08:02)
[2020-12-12] MEDS: FUROSEMIDE 10 MG/ML 4 ML VIAL IV SCH ×2 (08:02→21:44)
[2020-12-12] MEDS: SERTRALINE 50 MG TAB PO SCH (08:02)
[2020-12-12] MEDS: FORMOTEROL FUMARATE 20 MCG/2 ML NEBU INHALATION SCH ×2 (08:10→19:40)
[2020-12-12] MEDS: BUDESONIDE 1 MG/2 ML NEBU INHALATION SCH ×2 (08:10→19:40)
[2020-12-12] MEDS: IPRATROPIUM-ALBUTEROL 3 ML NEB INHALATION SCH ×4 (08:10→19:40)
[2020-12-12] MEDS: CHOLECALCIFEROL 25 MCG (1000 IU) TABLET PO SCH (09:57)
--- NOTE | 2020-12-12 10:21 | P.PN ---
Subjective Progress Note Date: 12/12/20 HISTORY OF PRESENT ILLNESS: This is a 70-year-old male who is currently admitted to the hospital secondary to shortness of breath and congestive heart failure. 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 Frazier yesterday and also during a recent hospitalization last week. Patient is receiving 40mg lasix IV q 12 hours. Patient is also receiving IV steroids. He states he is still short of breath but states it is improved since coming to the hospital. He is currently on 6 L nasal cannula with oxygen saturations greater than 92%. Intake and output has not been accurately documented. Echocardiogram completed on 12/08/2020 revealed ejection fraction 55-60%, trace aortic regurgitation, mild mitral regurgitation, mild tricuspid regurgitation, and moderate pulmonary hypertension. PHYSICAL EXAM: VITAL SIGNS: Reviewed. GENERAL: Well-developed in no acute distress. NECK: Supple. No JVD or thyromegaly LUNGS: Respirations even and unlabored. Lungs diminished with bibasilar rales. HEART: Regular rate and rhythm. S1 and S2 heard. EXTREMITIES: Normal range of motion. No clubbing or cyanosis. Peripheral pulses intact. Trace bilateral lower extremity edema ASSESSMENT: Acute exacerbation of chronic diastolic heart failure Acute exacerbation of COPD Acute on chronic hypoxic respiratory failure, patient wears home O2 Hypertension Hyperlipidemia History of pulmonary fibrosis History of obstructive sleep apnea, currently not utilizing CPAP PLAN: Pulmonary following. Continue IV steroids per pulmonary Continue IV Lasix 40 mg every 12 hours Daily weights Accurate I&O Monitor kidney function Further recommendations pending patient's course Nurse practitioner note has been reviewed by physician. Signing provider agrees with the documented findings, assessment, and plan of care. Objective - Vital Signs Vital signs: Vital Signs Temp 98.0 F 12/12/20 07:09 Pulse 82 12/12/20 08:33 Resp 16 12/12/20 07:09 BP 113/69 12/12/20 07:09 Pulse Ox 100 12/12/20 07:09 Intake & Output 12/11/20 12/12/20 12/12/20 18:59 06:59 18:59 Intake Total 300 240 Output Total 400 675 Balance 300 -400 -435 Weight 68.039 kg Intake: Oral 300 240 Output: Urine 675 Post Void Residual 400 Other: Voiding Method Toilet Urinal Urinal # Voids 1 2 # Bowel Movements 1 0 0 - Labs CBC & Chem 7: 12/11/20 07:07 12/11/20 07:07
[2020-12-12] MEDS: HYDROcodone/APAP 10-325MG 1 EACH TAB PO PRN (12:05)
--- NOTE | 2020-12-12 12:11 | P.PN ---
Subjective Progress Note Date: 12/12/20 HISTORY OF PRESENT ILLNESS This is a 70-year-old male patient of Dr. Holbrook and Dr. Mireles with past medical history of advanced steroid-dependent COPD, hyperlipidemia, rheumatoid arthritis, obstructive sleep apnea unable to tolerate CPAP, chronic hypoxic respiratory failure on home O2 at 3 L nasal cannula, generalized osteoarthritis, chronic back pain pseudomonas in sputum on previous admission secondary to colonization or pseudomonal pneumonia. Known FVC of 72% and FEV1 of 46%. History of perforated duodenal ulcer status post exploratory laparotomy with repair of perforated duodenal ulcer and repair of incarcerated umbilical hernia. Patient was hospitalized for COPD exacerbation and discharged home on December 10. According to patient's family, his oxygen tank only goes to 5 L and this all oxygen saturations were in the 70s to low 90s at best with his home oxygen. Patient was complaining of dyspnea since being discharged. No chest pain. No dizziness or lightheadedness. Echocardiogram on last admission reveals EF of 55-60% with mild concentric left ventricular hypertrophy, mild aortic valve sclerosis, trace aortic regurgitation, mild mitral regurgitation, mild tricuspid regurgitation, moderate pulmonary hypertension. Patient came into [facility] emergency center for evaluation. Patient was afebrile, heart rate 58, respiratory rate 26, blood pressure 124/74, pulse ox 96% on 6 L nasal cannula. EKG was in normal sinus rhythm with occa sional PACs and no acute ST changes. WBC 7.8, hemoglobin 12.3, platelet count 313. Sodium 132, potassium 4.2, chloride 95, CO2 33, BUN 19 and creatinine 0.56. AST 66 otherwise liver function tests were normal. ProBNP 11,800. INR 1.0. Lactic acid 1.0. Troponin 0.0-3. Chest x-ray reveals extensive pulmonary interstitial fibrosis. Increasing infiltrate at the lung bases with right pleural effusion. Congestive heart failure possible. Patient was given 1 dose of IV Lasix in the emergency center and admitted to the [facility] floor with consult in place for pulmonary medicine and cardiology. Patient has been started on his home medications including oral prednisone. 12/12: She has been seen and followed by cardiology with recommendations to continue IV Lasix 40 mg every 12 hours. She has also been seen and followed by pulmonary medicine. 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 Patient is currently on 5 L nasal cannula with pulse ox at 96%. His been afebrile, heart rate 82, heart rate 74, blood pressure 113/69. INR was not accurately documented. REVIEW OF SYSTEMS Constitutional: No fever, no chills, no night sweats. No weight change. No weakness, fatigue or lethargy. No daytime sleepiness. EENT: No headache. No blurred vision or double vision, no loss of vision. No loss of Hearing, no ringing in the ears, no dizziness. No nasal drainage or congestion. No epistaxis. No sore throat. Lungs: Reports shortness of breath, Reports cough, Reports sputum production. No wheezing. Cardiovascular: No chest pain, no lower extremity edema. No palpitations. No paroxysmal nocturnal dyspnea. No orthopnea. No lightheadedness or dizziness. No syncopal episodes. Abdominal: No abdominal pain. No nausea, vomiting. No diarrhea. No constipation. No bloody or tarry stools.. No loss of appetite. Genitourinary: No dysuria, increased frequency, urgency. No urinary retention. Musculoskeletal: No myalgias. No muscle weakness, no gait dysfunction, no frequent falls. No back pain. No neck pain. Integumentary: No wounds, no lesions. No rash or pruritus. No unusual bruising. No change in hair or nails. Neurologic: No aphasia. No facial droop. No change in mentation. No head injury. No headache. No paralysis. No paresthesia. Psychiatric: No depression. No anxiety. No mood swings. Endocrine: No abnormal blood sugars. No weight change. PHYSICAL EXAMINATION Gen: This is 70-year-old male. Patient is resting in bed appears to be comfortable and in no acute distress. HEENT: Head is atraumatic, normocephalic. Pupils equal, round. Sclerae is anicteric. NECK: Supple. No JVD. No lymphadenopathy. No thyromegaly. LUNGS: No wheezing. Diminished at bases. Crackles bilaterally. No intercostal retractions. HEART: Regular rate and rhythm. Systolic murmur. Sinus tachycardia. ABDOMEN: Soft. Bowel sounds are present. No masses. No tenderness. Bladder distention. EXTREMITIES: No pedal edema. No calf tenderness. Dorsalis pedis palpable bilaterally. NEUROLOGICAL: Patient is awake, alert and oriented x3. Cranial nerves 2 through 12 are grossly intact. ASSESSMENT AND PLAN 1. Acute on chronic hypoxic respiratory failure secondary to acute diastolic heart failure. Patient is status post 1 dose of IV Lasix and will be started on Lasix 40 mg IV every 12 hours. Cardiology consult appreciated. Recent echocardiogram as above. Continue azithromycin 500 mg daily, Tessalon Perles as needed, Pulmicort 1 mg twice daily, DuoNeb treatments 4 times daily and as needed, prednisone oral 50 mg daily. Pulmonary medicine consult appreciated. 2. Advanced COPD with pulmonary fibrosis, steroid dependent and chronic hypoxic and hypercapnic respiratory failure on home O2 at 3 L. Continue as in #1. 3. Elevated troponins on last admission secondary to possible type II CA. 4. Moderate pulmonary hypertension. 5. Hypertension. Continue Toprol-XL 25 mg daily. 6. Rheumatoid arthritis, stable. 7. Hyperlipidemia. 8. Obstructive sleep apnea unable to tolerate CPAP. 9. Chronic back pain and generalized osteoarthritis. Continue Gary as needed, gabapentin 300 mg at bedtime 10. History of perforated duodenal ulcer status post exploratory laparotomy with repair of perforated duodenal ulcer and repair of incarcerated umbilical hernia. 11. Generalized anxiety disorder and recurrent depression. Continue Zoloft 50 mg daily, Elavil 10 mg at bedtime. 12. DVT prophylaxis. Heparin subcu. 13. GI prophylaxis. Continue Protonix daily. 14. Insomnia. Continue Elavil 10 mg at bedtime.. 15. Chronic compression fracture. Continue current pain management with Gary. 16. Urinary retention. PVR every shift. DISCHARGE PLAN Most likely return home with VNA. Impression and plan of care have been directed as dictated by the signing physician. [place] nurse practitioner acting as scribe for signing physician. Objective - Vital Signs Vital signs: Vital Signs Temp 98.0 F 12/12/20 07:09 Pulse 82 12/12/20 08:33 Resp 16 12/12/20 07:09 BP 113/69 12/12/20 07:09 Pulse Ox 100 12/12/20 07:09 Intake & Output 12/11/20 12/12/20 12/12/20 18:59 06:59 18:59 Intake Total 300 Output Total 400 675 Balance 300 -400 -675 Weight 68.039 kg Intake: Oral 300 Output: Urine 675 Post Void Residual 400 Other: Voiding Method Toilet Urinal Urinal # Voids 1 2 # Bowel Movements 1 0 0 - Labs CBC & Chem 7: 12/11/20 07:07 12/11/20 07:07
--- NOTE | 2020-12-12 13:40 | P.PN ---
Subjective Progress Note Date: 12/12/20 70-year-old male who presents to the emergency department on December 10, with complaints of shortness of breath. The patient was just discharged home yesterday, and came back in on the same day, complaining of increasing shortness of breath. The patient was begging to be discharged. I told him he should not go home because if he did, he would be right back and here again. He was discharged home on 6 L. He normally is on 3 L at home. Sure enough, the patient comes back in with increasing shortness of breath, cough, chest congestion, minimal phlegm production, and wheezing. He denies any fever or chills. He denies any chest pain or chest discomfort. He was seen in the emergency room and readmitted to the hospital. He is currently up on the sixth floor. He is on 6 L nasal cannula. He is not receiving any IV fluids. On 5 L nasal cannula, and his saturations are 88%. He is not appear to be in any great distress at this time. White count 11.6, hemoglobin 12.6, hematocrit 40.3, platelet count 363,000. Sodium 132, potassium 4 chloride 98, CO2 38, anion gap is 3 BUN 17, creatinine 0.63. Coronavirus testing was negative. Chest x-ray shows significant and extensive fibrosis. In addition, there are small effusions. Eleni evaluation of 12/12/2020, the patient is being seen for follow-up of. The patient is currently on 6 L of oxygen by nasal cannula with a pulse ox of 99%. Chest x-ray showed chronic pulmonary fibrosis and scarring a smaller lung volumes. The patient also has COPD. The patient's COVID 19 came back negative. The patient has had no new blood work today. Renal function stable. The patient has chronic metabolic alkalosis secondary to chronic hypercapnic respiratory failure. ProBNP level was also elevated at 11,800. The patient is currently on Lasix 40 mg IV 12 hours. He is also on a combination of Perforomist and Pulmicort nebulized treatments twice a day. He is producing adequate amount of urine output. Urine balance has been negative for now. His current weight is down to 68 kg. Objective - Vital Signs Vital signs: Vital Signs Temp 98.0 F 12/12/20 07:09 Pulse 88 12/12/20 12:35 Resp 16 12/12/20 08:00 BP 113/69 12/12/20 07:09 Pulse Ox 100 12/12/20 07:09 Intake & Output 12/11/20 12/12/20 12/12/20 18:59 06:59 18:59 Intake Total 300 240 Output Total 400 925 Balance 300 -400 -685 Weight 68.039 kg Intake: Oral 300 240 Output: Urine 925 Post Void Residual 400 Other: Voiding Method Toilet Urinal Urinal Urinal # Voids 1 2 # Bowel Movements 1 0 0 - Exam No acute distress, oriented 3. Currently on 6 L nasal cannula, with saturations 90%. No audible wheezing, use of accessory muscles, or conversational dyspnea. HEENT examination is grossly unremarkable. Neck supple. Full range of motion. No adenopathy thyromegaly or neck vein distention. Cardiovascular examination reveals regular rhythm rate. S1-S2 normal. No S3 or S4. No discernible murmur noted. Heart rate 83 bpm. Lungs reveal bilateral rhonchi, and basilar crackles. No wheezes. Breath sounds are diminished throughout. There is prolongation on forced maneuver. Abdomen soft bowel sounds are heard. No masses or tenderness. Extremities are intact. No cyanosis clubbing or edema. Skin is without rash or lesion. Neurologic examination is brief but nonfocal. - Labs CBC & Chem 7: 12/11/20 07:07 12/11/20 07:07 Assessment and Plan Plan: Acute hypoxemic respiratory failure, secondary to severe COPD, and pulmonary fibrosis. Stage III/severe COPD, with an FEV1 that is 46% of predicted. History of rheumatoid arthritis. History of pulmonary fibrosis, suspect rheumatoid arthritis associated pulmonary fibrosis. History of obstructive sleep apnea syndrome, currently not on CPAP. Chronic back pain. History of hyperlipidemia. History of osteoarthritis. Plan: Clinically the patient is feeling better. Continue bronchodilators. IV Solu-Medrol for another 24 hours. Continue diuretics. I reduce the oxygen flow down to 4 L. The patient will be monitored and possible discharge within next 24-48 hours. Overall condition is stable for now. Pulmonary we'll see this patient on an as-needed basis.
[2020-12-12 13:44] VITALS: BMI 22.8
[2020-12-12 15:46] LABS: Anion Gap 10.7 mmol/L (4.00-12.00); BUN/Creat Ratio 32.86 Ratio (12.00-20.00); Calcium 9.1 mg/dL (8.7-10.3); Carbon Dioxide 37.3 mmol/L (21.6-31.8); Non-African American GFR(CKD) 94.9 (60.0-200.0); Potassium 4.6 mmol/L (3.5-5.5)
[2020-12-12] MEDS: GABAPENTIN 300 MG CAP PO SCH (21:44)
[2020-12-12] MEDS: ATORVASTATIN 40 MG TAB PO SCH (21:45)
[2020-12-12] MEDS: AMITRIPTYLINE HCL 10 MG TAB PO SCH (22:10)
[2020-12-13] MEDS: methylPREDNISolone SOD SUCCI 125 MG/2 ML VIAL IV SCH ×2 (05:57→12:01)
[2020-12-13] MEDS: BUDESONIDE 1 MG/2 ML NEBU INHALATION SCH (07:56)
[2020-12-13] MEDS: FORMOTEROL FUMARATE 20 MCG/2 ML NEBU INHALATION SCH (07:56)
[2020-12-13] MEDS: IPRATROPIUM-ALBUTEROL 3 ML NEB INHALATION SCH ×2 (07:57→12:04)
[2020-12-13] MEDS: CHOLECALCIFEROL 25 MCG (1000 IU) TABLET PO SCH (08:40)
[2020-12-13] MEDS: MELOXICAM 7.5 MG TAB PO SCH (08:40)
[2020-12-13] MEDS: METOPROLOL SUCCINATE (ER) 25 MG TAB.ER.24H PO SCH (08:40)
[2020-12-13] MEDS: MULTIVITAMINS, THERA 1 EACH TAB PO SCH (08:40)
[2020-12-13] MEDS: PANTOPRAZOLE 40 MG TABLET PO SCH (08:40)
[2020-12-13] MEDS: CLOPIDOGREL 75 MG TAB PO SCH (08:40)
[2020-12-13] MEDS: AZITHROMYCIN 500 MG TAB PO SCH (08:40)
[2020-12-13] MEDS: SERTRALINE 50 MG TAB PO SCH (08:40)
[2020-12-13] MEDS: FLUTICASONE 50MCG/SPRAY NASAL 16GM EA NOSTRIL SCH (08:45)
--- NOTE | 2020-12-13 08:49 | P.DS ---
Providers Date of admission: 12/11/20 09:05 Expected date of discharge: 12/13/20 Attending physician: Cole Kirk Consults: 12/10/20 23:24 Consult Physician Urgent Consulting Provider: Lex Weaver Consult Reason/Comments: pulmonary fibrosis, COPD, hypoxia Do you want consulting provider notified?: Yes Consult Physician Urgent Consulting Provider: Glenn Frazier Consult Reason/Comments: CHF Do you want consulting provider notified?: Yes Primary care physician: Razia Holbrook [facility] Course: HISTORY OF PRESENT ILLNESS This is a 70-year-old male patient of Dr. Holbrook and Dr. Mireles with past medical history of advanced steroid-dependent COPD, hyperlipidemia, rheumatoid arthritis, obstructive sleep apnea unable to tolerate CPAP, chronic hypoxic respiratory failure on home O2 at 3 L nasal cannula, generalized osteoarthritis, chronic back pain pseudomonas in sputum on previous admission secondary to colonization or pseudomonal pneumonia. Known FVC of 72% and FEV1 of 46%. History of perforated duodenal ulcer status post exploratory laparotomy with repair of perforated duodenal ulcer and repair of incarcerated umbilical hernia. Patient was hospitalized for COPD exacerbation and discharged home on December 10. According to patient's family, his oxygen tank only goes to 5 L and this all oxygen saturations were in the 70s to low 90s at best with his home oxygen. Patient was complaining of dyspnea since being discharged. No chest pain. No dizziness or lightheadedness. Echocardiogram on last admission reveals EF of 55-60% with mild concentric left ventricular hypertrophy, mild aortic valve sclerosis, trace aortic regurgitation, mild mitral regurgitation, mild tricuspid regurgitation, moderate pulmonary hypertension. Patient came into [facility] emergency center for evaluation. Patient was afebrile, heart rate 58, respiratory rate 26, blood pressure 124/74, pulse ox 96% on 6 L nasal cannula. EKG was in normal sinus rhythm with occasional PACs and no acute ST changes. WBC 7.8, hemoglobin 12.3, platelet count 313. Sodium 132, potassium 4.2, chloride 95, CO2 33, BUN 19 and creatinine 0.56. AST 66 otherwise liver function tests were normal. ProBNP 11,800. INR 1.0. Lactic acid 1.0. Troponin 0.0-3. Chest x-ray reveals extensive pulmonary interstitial fibrosis. Increasing infiltrate at the lung bases with right pleural effusion. Congestive heart failure possible. Patient was given 1 dose of IV Lasix in the emergency center and [facility] with consult in place for pulmonary medicine and cardiology. Patient has been started on his home medications including oral prednisone. 12/12: She has been seen and followed by cardiology with recommendations to continue IV Lasix 40 mg every 12 hours. She has also been seen and followed by pulmonary medicine. manager diabetes will make arrangements for patient to have an oxygen concentrator at home which will reach 6 L nasal cannula which is needed for patient to manage his COPD and CHF. Patient is currently on 5 L nasal cannula with pulse ox at 96%. His been afebrile, heart rate 82, heart rate 74, blood pressure 113/69. INR was not accurately documented. 12/13: Dr. Mireles requested to monitor patient for another 24 hours and continue diuretics. He decreased oxygen to 4 L nasal cannula. Pulmonary is following on an as-needed basis. Cardiology has transitioned IV Lasix to oral 40 mg twice daily. Cardiology cleared patient for discharge. Repeat chest x-ray reveals COPD and fibrosis. Patchy peripheral and basilar infiltrates persist but slow slight improvement. Pulse ox is 93% on 4 L nasal cannula. Heart rate in the 80s and 90s. He has been afebrile, blood pressure 95/63. ProBNP 1520. ASSESSMENT AND PLAN 1. Acute on chronic hypoxic respiratory failure secondary to acute on chronic diastolic heart failure. 2. Advanced COPD with pulmonary fibrosis, steroid dependent and chronic hypoxic and hypercapnic respiratory failure on home O2 at 3 L. 3. Elevated troponins on last admission secondary to possible type II [place]. 4. Moderate pulmonary hypertension. 5. Hypertension. 6. Rheumatoid arthritis, stable. 7. Hyperlipidemia. 8. Obstructive sleep apnea unable to tolerate CPAP. 9. Chronic back pain and generalized osteoarthritis. 10. History of perforated duodenal ulcer status post exploratory laparotomy with repair of perforated duodenal ulcer and repair of incarcerated umbilical hernia. 11. Generalized anxiety disorder and recurrent depression. 12. Insomnia. 15. Chronic compression fracture. 16. Urinary retention. DISCHARGE PLAN Most likely return home with VNA. Impression and plan of care have been directed as dictated by the signing physician. [place]ia Salinas nurse practitioner acting as scribe for signing physician. Patient Condition at Discharge: Stable Plan - Discharge Summary Discharge Rx Participant: No New Discharge Prescriptions: New Furosemide [Lasix] 40 mg PO BID@0900,1600 #28 tab predniSONE 0 mg PO DIRECTED #30 tab Continue Cholecalciferol [Vitamin D3 (25 Mcg = 1000 Iu)] 50 mcg PO DAILY Albuterol Inhaler [Ventolin Hfa Inhaler] 2 puff INHALATION RT-QID PRN PRN Reason: Shortness Of Breath Omeprazole [PriLOSEC] 40 mg PO DAILY Metoprolol Succinate [Toprol XL] 25 mg PO DAILY Sertraline [Zoloft] 150 mg PO DAILY Multivitamins, Thera [Multivitamin (formulary)] 1 tab PO DAILY HYDROcodone/APAP 10-325MG [Slade 10-325] 1 tab PO TID PRN PRN Reason: Pain Benzonatate [Tessalon Perles] 200 mg PO TID PRN PRN Reason: Cough Celecoxib [CeleBREX] 200 mg PO DAILY Fluticasone Nasal [place] [Flonase Nasal [place]] 2 spray EA NOSTRIL DAILY #1 spr Melatonin 3 mg PO HS PRN PRN Reason: Insomnia Clopidogrel [Plavix] 75 mg PO DAILY #14 tab Amitriptyline HCl [Elavil] 10 mg PO HS Gabapentin [Neurontin] 300 mg PO HS Alendronate Sodium 70 mg PO MO Ascorbic Acid [Vitamin C] 1,000 mg PO DAILY Ipratropium-Albuterol Nebulize [Duoneb 0.5 mg-3 mg/3 ml Soln] 3 ml INHALATION RT-QID Atorvastatin [Lipitor] 40 mg PO HS #14 tab Budesonide [Pulmicort] 1 mg INHALATION RT-BID #28 inhalation Discontinued predniSONE 5 mg PO Q48H Azithromycin [Zithromax] 500 mg PO DAILY #3 tab predniSONE [Deltasone] See Taper PO DIRECTED Fluticasone/Umeclidin/Vilanter [Trelegy Ellipta 100-62.5-25] 1 puff I NHALATION RT-DAILY Discharge Medication List Albuterol Inhaler [Ventolin Hfa Inhaler] 2 puff INHALATION RT-QID PRN 01/12/20 [History] Cholecalciferol [Vitamin D3 (25 Mcg = 1000 Iu)] 50 mcg PO DAILY 01/12/20 [History] HYDROcodone/APAP 10-325MG [[place]ade 10-325] 1 tab PO TID PRN 01/12/20 [History] Metoprolol Succinate [Toprol XL] 25 mg PO DAILY 01/12/20 [History] Multivitamins, Thera [Multivitamin (formulary)] 1 tab PO DAILY 01/12/20 [History] Omeprazole [PriLOSEC] 40 mg PO DAILY 01/12/20 [History] Sertraline [Zoloft] 150 mg PO DAILY 01/12/20 [History] Amitriptyline HCl [Elavil] 10 mg PO HS 12/06/20 [History] Benzonatate [Tessalon Perles] 200 mg PO TID PRN 12/06/20 [History] Celecoxib [CeleBREX] 200 mg PO DAILY 12/06/20 [History] Gabapentin [Neurontin] 300 mg PO HS 12/06/20 [History] Alendronate Sodium 70 mg PO MO 12/10/20 [History] Ascorbic Acid [Vitamin C] 1,000 mg PO DAILY 12/10/20 [History] Fluticasone Nasal [place] [Flonase Nasal [place]] 2 spray EA NOSTRIL DAILY #1 spr 12/10/20 [Rx] Ipratropium-Albuterol Nebulize [Duoneb 0.5 mg-3 mg/3 ml Soln] 3 ml INHALATION RT-QID 12/10/20 [History] Melatonin 3 mg PO HS PRN 12/10/20 [History] Atorvastatin [Lipitor] 40 mg PO HS #14 tab 12/13/20 [Rx] Budesonide [Pulmicort] 1 mg INHALATION RT-BID #28 inhalation 12/13/20 [Rx] Clopidogrel [Plavix] 75 mg PO DAILY #14 tab 12/13/20 [Rx] Furosemide [Lasix] 40 mg PO BID@0900,1600 #28 tab 12/13/20 [Rx] predniSONE 0 mg PO DIRECTED #30 tab 12/13/20 [Rx] Follow up Appointment(s)/Referral(s): Razia Holbrook MD [Primary Care Provider] - 1-2 days Glenn Frazier MD [STAFF PHYSICIAN] - 2 Weeks (Office will call pt with appointment ) Lex Weaver DO [Doctor of Osteopathic Medicine] - 01/03/21 1:15 pm [facility]NA Visiting Nurse, [NON-STAFF] - 1-2 Days [facility] [REFERRING] - 1-2 Days Patient Instructions/Handouts: Heart Failure (DC), COPD (Chronic Obstructive Pulmonary Disease) (DC) Activity/Diet/Wound Care/Special Instructions: fax discharge medication list to the [facility] so new rx can be ordered Cinda can be reached at phone [phone] and fax [phone]. Discharge Disposition: HOME WITH HOME HEALTH SERVICES
[2020-12-13] MEDS ORDERED: FUROSEMIDE 40 MG TAB PO SCH (09:00)
--- NOTE | 2020-12-13 10:31 | XR ---
EXAMINATION TYPE: XR chest 2V DATE OF EXAM: 12/13/2020 COMPARISON: 12/10/2020 HISTORY: 70-year-old male follow-up COPD and fibrosis TECHNIQUE: Frontal and lateral views FINDINGS: Patient is rotated towards the right. Heart upper limits of normal in size. Hyperinflation. Medium in creased interstitial opacities throughout and patchy bibasilar opacities. There may be slight improve ment in aeration. Severe focal kyphotic deformity mid thoracic spine secondary to compression fractur es. Normal variant azygous fissure. IMPRESSION: COPD and fibrosis. Patchy peripheral and basilar infiltrates persist but show slight improvement.
--- NOTE | 2020-12-13 10:31 | P.PN ---
Subjective This is a pleasant 70-year-old male past medical history significant for COPD, hypertension, pulmonary fibrosis, obstructive sleep apnea and dyslipidemia. He is seen and examined sitting up in bed eating breakfast in no acute distress. He states overall his breathing has improved since admission. He has no further symptoms of shortness of breath. He has no chest pain, dizziness or palpitations. Blood pressure 96/62 heart rate 92 afebrile maintaining oxygen saturation on nasal cannula. Laboratory data from today is pending. 24-hour urine output is 2200 mls maintaining a negative fluid balance. Echocardiogram obtained on previous admission reveals preserved LV systolic function with ejection fraction 55-60% with mild aortic stenosis and a mean gradient of 6 mmHg, mild MR, mild TR and moderate pulmonary hypertension with RVSP 56 mmHg. GENERAL: Well-appearing, well-nourished and in no acute distress. NECK: Supple without JVD or thyromegaly. LUNGS: Breath sounds clear to auscultation bilaterally. Respiration equal and unlabored. No wheezes, rales or rhonchi. Diminished bilaterally. HEART: Regular rate and rhythm without murmurs, rubs or gallops. S1 and S2 heard. EXTREMITIES: Normal range of motion, no edema. No clubbing or cyanosis. Peripheral pulses intact. ASSESSMENT Acute diastolic heart failure Acute exacerbation of COPD Hypertension Dyslipidemia Pulmonary hypertension Pulmonary fibrosis Obstructive sleep apnea PLAN Transition to oral diuretics. Follow-up on discharge with Dr. Frazier. Nurse Practitioner note has been reviewed, I agree with a documented findings and plan of care. Patient was seen and examined. Objective - Vital Signs Vital signs: Vital Signs Temp 98.0 F 12/13/20 07:00 Pulse 90 12/13/20 08:22 Resp 16 12/13/20 07:00 BP 96/62 12/13/20 07:00 Pulse Ox 93 L 12/13/20 07:57 Intake & Output 12/12/20 12/13/20 12/13/20 18:59 06:59 18:59 Intake Total 480 Output Total 1200 1000 Balance -720 -1000 Weight 55 kg 54.5 kg Intake: Oral 480 Output: Urine 1200 1000 Post Void Residual 0 Other: Voiding Method Urinal Urinal # Voids 3 # Bowel Movements 0 - Labs CBC & Chem 7: 12/11/20 07:07 12/12/20 09:14 Labs: Abnormal Lab Results - Last 24 Hours (Table) 12/12/20 Range/Units 09:14 Chloride 88 L (96-109) mmol/L Carbon Dioxide 37.3 H (21.6-31.8) mmol/L BUN/Creatinine Ratio 32.86 H (12.00-20.00) Ratio Glucose 172 H (70-110) mg/dL
[2020-12-13 14:23] LABS: African American GFR (CKD) 104.2 (60.0-200.0); Albumin 3.3 g/dL (3.80-4.90); Albumin/Globulin Ratio 1.57 (1.60-3.17); Anion Gap 11.5 mmol/L (4.00-12.00); BUN/Creat Ratio 42.5 Ratio (12.00-20.00); Carbon Dioxide 35.5 mmol/L (21.6-31.8); Globulin 2.1 g/dL (1.6-3.3); Non-African American GFR(CKD) 89.9 (60.0-200.0); Potassium 4.2 mmol/L (3.5-5.5); Total Bilirubin 0.5 mg/dL (0.2-1.2); Total Protein 5.4 g/dL (6.2-8.2)
[2020-12-13 15:03] VITALS: BP 101/60; PULSE 79; RESP 18; TEMP 97.9
== END 2020-12-13 15:45 | disposition home health service (06) | DRG 280 ==
LOC: EC 20:21 → 6NMEDSUR 23:23 → OBSVTOIN 12-11 09:05
PROVIDERS: ADMIT Internal Medicine Geriatric Medicine; ATTEND Internal Medicine Geriatric Medicine
DX: I11.0 Hypertensive heart disease with heart failure (principal); J96.21 Acute and chronic respiratory failure with hypoxia; I21.A1 Myocardial infarction type 2; J96.22 Acute and chronic respiratory failure with hypercapnia; J44.1 Chronic obstructive pulmonary disease with (acute) exacerbation; F33.9 Major depressive disorder, recurrent, unspecified; E87.3 Alkalosis; I50.33 Acute on chronic diastolic (congestive) heart failure; J84.10 Pulmonary fibrosis, unspecified; Z79.52 Long term (current) use of systemic steroids; Z20.822 Contact with and (suspected) exposure to COVID-19; I27.20 Pulmonary hypertension, unspecified; G47.33 Obstructive sleep apnea (adult) (pediatric); F41.1 Generalized anxiety disorder; M06.9 Rheumatoid arthritis, unspecified; E78.5 Hyperlipidemia, unspecified; Z79.02 Long term (current) use of antithrombotics/antiplatelets; Z87.891 Personal history of nicotine dependence; Z80.6 Family history of leukemia; Z83.3 Family history of diabetes mellitus; Z80.0 Family history of malignant neoplasm of digestive organs; Z99.81 Dependence on supplemental oxygen; G89.29 Other chronic pain; G47.00 Insomnia, unspecified; R33.9 Retention of urine, unspecified; M19.90 Unspecified osteoarthritis, unspecified site; Z87.11 Personal history of peptic ulcer disease; Z79.1 Long term (current) use of non-steroidal anti-inflammatories (NSAID); Z79.899 Other long term (current) drug therapy
CPT/HCPCS: 36415; 71046; 80048; 80053; 83605; 83880; 84484; 85025; 85610; 85730; 87635; 93005; 94640; 94760; 96374; 99285

== ENCOUNTER 2021-07-10 08:07 | Inpatient (IN) | payer MEDICARE, OTHER ==
[2021-07-10] MEDS ORDERED: IPRATROPIUM 0.5 MG/2.5 ML NEBU INHALATION STA (08:23)
[2021-07-10] MEDS ORDERED: ALBUTEROL NEBULIZED 2.5 MG/3 ML INHALATION STA (08:23)
--- NOTE | 2021-07-10 08:29 | ED ---
General Adult HPI - General Stated complaint: Hip Pain Time Seen by Provider: 07/10/21 08:10 Source: patient, RN notes reviewed, old records reviewed - History of Present Illness Initial comments: This is a 70-year-old male who presents to the emergency department after having rolled out of bed. Patient states he did bump his head he denies loss of consciousness he denies being days he denies a headache denies numbness weakne ss. Patient denies any neck pain or neck tenderness. Patient states he also hurt his left hip and that is the main reason he came in. Patient denies any back pain patient denies any chest pain palpitations. Patient denies any abdominal pain patient denies any recent fever chills or cough per patient denies any nausea vomiting. Patient states he normally is on 4 L of oxygen at home. Patient states he is short of breath but no more than normal. Patient's only oxygen currently at 88% on 5 L. - Related Data Home Medications Medication Instructions Recorded Confirmed Cholecalciferol [Vitamin D3 (25 50 mcg PO DAILY 01/12/20 07/10/21 Mcg = 1000 Iu)] HYDROcodone/APAP 10-325MG [Tea 1 tab PO TID PRN 01/12/20 07/10/21 10-325] Metoprolol Succinate [Toprol XL] 25 mg PO DAILY 01/12/20 07/10/21 Omeprazole [PriLOSEC] 40 mg PO DAILY 01/12/20 07/10/21 Sertraline [Zoloft] 150 mg PO DAILY 01/12/20 07/10/21 Amitriptyline HCl [Elavil] 10 mg PO HS 12/06/20 07/10/21 Benzonatate [Tessalon Perles] 200 mg PO TID PRN 12/06/20 07/10/21 Celecoxib [CeleBREX] 200 mg PO DAILY 12/06/20 07/10/21 Gabapentin [Neurontin] 300 mg PO HS 12/06/20 07/10/21 Alendronate Sodium 70 mg PO MO 12/10/20 07/10/21 Ascorbic Acid [Vitamin C] 1,000 mg PO DAILY 12/10/20 07/10/21 Ipratropium-Albuterol Nebulize 3 ml INHALATION RT-QID 12/10/20 07/10/21 [Duoneb 0.5 mg-3 mg/3 ml Soln] Melatonin 3 mg PO HS PRN 12/10/20 07/10/21 Atorvastatin [Lipitor] 40 mg PO HS 07/10/21 07/10/21 Budesonide [Pulmicort] 0.5 mg INHALATION RT-BID 07/10/21 07/10/21 Fluticasone Nasal [place] [Flonase 2 spr EA NOSTRIL DAILY 07/10/21 07/10/21 Nasal [place]] predniSONE 2.5 mg PO Q48H 07/10/21 07/10/21 Previous Rx's Medication Instructions Recorded Clopidogrel [Plavix] 75 mg PO DAILY #14 tab 12/13/20 Furosemide [Lasix] 40 mg PO BID@0900,1600 #28 tab 12/13/20 Allergies Allergy/AdvReac Type Severity Reaction Status Date / Time amoxicillin AdvReac Nausea & Verified 07/10/21 10:43 Vomiting Review of Systems ROS Statement: Those systems with pertinent positive or pertinent negative responses have been documented in the HPI. ROS Other: All systems not noted in ROS Statement are negative. Past Medical History Past Medical History: Heart Failure, COPD, Hyperlipidemia, Osteoarthritis (OA), Pneumonia, Rheumatoid Arthritis (RA), Sleep Apnea/CPAP/BIPAP Additional Past Medical History / Comment(s): COPD, chronic hypoxic respiratory failure previous history of pneumoperitoneum related to a perforated duodenal ulcer, repair of an umbilical hernia, chronic back pain, back stenosis. History of Any Multi-Drug Resistant Organisms: None Reported Past Surgical History: Orthopedic Surgery Additional Past Surgical History / Comment(s): colonoscopy, repair of a perforated duodenal ulcer and repair of an incarcerated umbilical hernia Past Anesthesia/Blood Transfusion Reactions: No Reported Reaction Past Psychological History: Anxiety, Depression Additional Psychological History / Comment(s): Pt resides with his spouse of 38 yrs. He has home oxygen which he wears at 3-3.5L/NC. He has a nebulizer. Smoking Status: Former smoker Past Alcohol Use History: Daily Additional Past Alcohol Use History / Comment(s): Patient smoked 2 packs per day for 40+ years. He quit 6 years ago. He denies any illicit drug use or marijuana use. He drinks 2 beers per day but none since previous admission and December. 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 Mother Family Medical History: Cancer, CVA/TIA, Dementia, Diabetes Mellitus Additional Family Medical History / Comment(s): Mother is 88yrs old with history of dementia and colon cancer. Sister(s) Additional Family Medical History / Comment(s): Patient 3 sons with no major medical problems. General Exam - General Exam Comments Initial Comments: GENERAL: Patient is well-developed and well-nourished. Patient is nontoxic and well-hydrated and is in mild distress. ENT: Neck is soft and supple. No significant lymphadenopathy is noted. Oropharynx is clear. Moist mucous membranes. Neck has full range of motion without eliciting any pain. EYES: The sclera were anicteric and conjunctiva were pink and moist. Extraocular movements were intact and pupils were equal round and reactive to light. Eyelids were unremarkable. PULMONARY: Crackles bases with symmetric very wheezing CARDIOVASCULAR: There is a regular rate and rhythm without any murmurs gallops or rubs. ABDOMEN: Soft and nontender with normal bowel sounds. SKIN: Skin is clear with no lesions or rashes and otherwise unremarkable. NEUROLOGIC: Patient is alert and oriented x3. Cranial nerves II through XII are grossly intact. Motor and sensory are also intact. Normal speech, volume and content. Symmetrical smile. MUSCULOSKELETAL: Patient's left hip is tender to palpation as well as any flexion or external rotation. LYMPHATICS: No significant lymphadenopathy is noted PSYCHIATRIC: Normal psychiatric evaluation. Course Vital Signs 07/10/21 07/10/21 07/10/21 08:13 09:00 09:23 Temperature 97.9 F Pulse Rate 95 93 106 H Respiratory 18 18 Rate Blood Pressure 107/73 101/66 O2 Sat by Pulse 87 L 90 L Oximetry Medical Decision Making - Medical Decision Making EKG shows normal sinus rhythm at 94 bpm AK interval 122 QRS is 94 QT interval 380 QTC is 475. Patient's EKG shows no ST segment elevation or depression. states that his oxygenation usually is in the 80s even on [address] of the brain and C-spine showed no acute abnormality. X-ray of the clavicle shows a right clavicle fracture X-ray of the left hip shows a in the inferior and superior rami fracture Patient's chest x-ray shows no acute abnormality. I spoke with Dr. Faust he agreed to admit the patient admitted the patient consult or for medicine. - Lab Data Result diagrams: 07/10/21 08:32 07/10/21 08:32 Lab Results 07/10/21 07/10/21 07/10/21 Range/Units 08:32 08:32 08:32 WBC 12.5 H (3.8-10.6) k/uL RBC 4.24 L (4.30-5.90) m/uL Hgb 12.8 L (13.0-17.5) gm/dL Hct 38.7 L (39.0-53.0) % MCV 91.2 (80.0-100.0) fL MCH 30.1 (25.0-35.0) pg MCHC 33.0 (31.0-37.0) g/dL RDW 15.6 H (11.5-15.5) % Plt Count 323 (150-450) k/uL MPV 7.4 Neutrophils % 68 % Lymphocytes % 22 % Monocytes % 6 % Eosinophils % 2 % Basophils % 0 % Neutrophils # 8.5 H (1.3-7.7) k/uL Lymphocytes # 2.8 (1.0-4.8) k/uL Monocytes # 0.8 (0-1.0) k/uL Eosinophils # 0.2 (0-0.7) k/uL Basophils # 0.1 (0-0.2) k/uL PT 10.3 (9.0-12.0) sec INR 1.0 (<1.2) APTT 22.9 (22.0-30.0) sec Sodium 126 L (137-145) mmol/L Potassium 4.0 (3.5-5.1) mmol/L Chloride 91 L (98-107) mmol/L Carbon Dioxide 27 (22-30) mmol/L Anion Gap 8 mmol/L BUN 16 (9-20) mg/dL Creatinine 0.52 L (0.66-1.25) mg/dL Est GFR (CKD-EPI)AfAm >90 (>60 ml/min/1.73 sqM) Est GFR (CKD-EPI)NonAf >90 (>60 ml/min/1.73 sqM) Glucose 93 (74-99) mg/dL Plasma Lactic Acid Steven (0.7-2.0) mmol/L Calcium 8.2 L (8.4-10.2) mg/dL Magnesium 1.7 (1.6-2.3) mg/dL Total Bilirubin 0.4 (0.2-1.3) mg/dL AST 42 (17-59) U/L ALT 32 (4-49) U/L Alkaline Phosphatase 89 (38-126) U/L Troponin I (0.000-0.034) ng/mL NT-Pro-B Natriuret Pep pg/mL Total Protein 6.6 (6.3-8.2) g/dL Albumin 3.4 L (3.5-5.0) g/dL Coronavirus (PCR) (Not Detectd) 07/10/21 07/10/21 07/10/21 Range/Units 08:32 08:32 08:32 WBC (3.8-10.6) k/uL RBC (4.30-5.90) m/uL Hgb (13.0-17.5) gm/dL Hct (39.0-53.0) % MCV (80.0-100.0) fL MCH (25.0-35.0) pg MCHC (31.0-37.0) g/dL RDW (11.5-15.5) % Plt Count (150-450) k/uL MPV Neutrophils % % Lymphocytes % % Monocytes % % Eosinophils % % Basophils % % Neutrophils # (1.3-7.7) k/uL Lymphocytes # (1.0-4.8) k/uL Monocytes # (0-1.0) k/uL Eosinophils # (0-0.7) k/uL Basophils # (0-0.2) k/uL PT (9.0-12.0) sec INR (<1.2) APTT (22.0-30.0) sec Sodium (137-145) mmol/L Potassium (3.5-5.1) mmol/L Chloride (98-107) mmol/L Carbon Dioxide (22-30) mmol/L Anion Gap mmol/L BUN (9-20) mg/dL Creatinine (0.66-1.25) mg/dL Est GFR (CKD-EPI)AfAm (>60 ml/min/1.73 sqM) Est GFR (CKD-EPI)NonAf (>60 ml/min/1.73 sqM) Glucose (74-99) mg/dL Plasma Lactic Acid Steven 1.7 (0.7-2.0) mmol/L Calcium (8.4-10.2) mg/dL Magnesium (1.6-2.3) mg/dL Total Bilirubin (0.2-1.3) mg/dL AST (17-59) U/L ALT (4-49) U/L Alkaline Phosphatase (38-126) U/L Troponin I 0.018 (0.000-0.034) ng/mL NT-Pro-B Natriuret Pep 1040 pg/mL Total Protein (6.3-8.2) g/dL Albumin (3.5-5.0) g/dL Coronavirus (PCR) (Not Detectd) 07/10/21 Range/Units 09:15 WBC (3.8-10.6) k/uL RBC (4.30-5.90) m/uL Hgb (13.0-17.5) gm/dL Hct (39.0-53.0) % MCV (80.0-100.0) fL MCH (25.0-35.0) pg MCHC (31.0-37.0) g/dL RDW (11.5-15.5) % Plt Count (150-450) k/uL MPV Neutrophils % % Lymphocytes % % Monocytes % % Eosinophils % % Basophils % % Neutrophils # (1.3-7.7) k/uL Lymphocytes # (1.0-4.8) k/uL Monocytes # (0-1.0) k/uL Eosinophils # (0-0.7) k/uL Basophils # (0-0.2) k/uL PT (9.0-12.0) sec INR (<1.2) APTT (22.0-30.0) sec Sodium (137-145) mmol/L Potassium (3.5-5.1) mmol/L Chloride (98-107) mmol/L Carbon Dioxide (22-30) mmol/L Anion Gap mmol/L BUN (9-20) mg/dL Creatinine (0.66-1.25) mg/dL Est GFR (CKD-EPI)AfAm (>60 ml/min/1.73 sqM) Est GFR (CKD-EPI)NonAf (>60 ml/min/1.73 sqM) Glucose (74-99) mg/dL Plasma Lactic Acid Steven (0.7-2.0) mmol/L Calcium (8.4-10.2) mg/dL Magnesium (1.6-2.3) mg/dL Total Bilirubin (0.2-1.3) mg/dL AST (17-59) U/L ALT (4-49) U/L Alkaline Phosphatase (38-126) U/L Troponin I (0.000-0.034) ng/mL NT-Pro-B Natriuret Pep pg/mL Total Protein (6.3-8.2) g/dL Albumin (3.5-5.0) g/dL Coronavirus (PCR) Not Detected (Not Detectd) Disposition Clinical Impression: Right clavicle fracture, Fracture of left inferior pubic ramus, Fracture of superior pubic ramus, COPD (chronic obstructive pulmonary disease) Disposition: ADMITTED IP TO THIS HOSP Referrals: Razia Holbrook MD [Primary Care Provider] - 1-2 days Time of Disposition: 10:58
[2021-07-10 08:45] LABS: Basophils # (A) 0.1 k/uL (0-0.2); Basophils % (A) 0 %; Eosinophils # (A) 0.2 k/uL (0-0.7); Eosinophils % (A) 2 %; HCT 38.7 % (39.0-53.0); HGB 12.8 gm/dL (13.0-17.5); Lymphocytes # (A) 2.8 k/uL (1.0-4.8); Lymphocytes % (A) 22 %; MCH 30.1 pg (25.0-35.0); MCV 91.2 fL (80.0-100.0); Mean Platelet Volume 7.4; Monocytes # (A) 0.8 k/uL (0-1.0); Monocytes % (A) 6 %; Neutrophils # (A) 8.5 k/uL (1.3-7.7); Neutrophils % (A) 68 %; Platelet Count 323 k/uL (150-450); RBC 4.24 m/uL (4.30-5.90); RDW 15.6 % (11.5-15.5); WBC 12.5 k/uL (3.8-10.6)
--- NOTE | 2021-07-10 08:58 | XR ---
EXAMINATION TYPE: XR chest 2V DATE OF EXAM: 07/10/2021 COMPARISON: NONE TECHNIQUE: PA and lateral views submitted. HISTORY: Pain after falling FINDINGS: Coarsened interstitium with bilateral consolidation and pleural thickening or small effusion. There a re rib deformities along the lower right rib cage which appear to be present on the prior chest x-ray . No sizable pneumothorax. Subsegmental areas of consolidation are noted. Nodularity in the left uppe r lobe is similar to the prior exam. Correlate for COPD. IMPRESSION: 1. Chronic pulmonary fibrosis with bilateral infiltrate and small effusion. Underlying emphysematous changes are seen with vague nodularity in left upper lobe. 2. There are deformities of the lower right rib cage and lower left rib cage which most likely are ch ronic correlate with point tenderness.
--- NOTE | 2021-07-10 09:00 | XR ---
EXAMINATION TYPE: XR Hip LT and AP Pelvis DATE OF EXAM: 07/10/2021 COMPARISON: NONE HISTORY: Pain TECHNIQUE: A single AP view of the pelvis is obtained. Two views of the bilateral hip are obtained. FINDINGS: There is no acute fracture/dislocation evident in the pelvis. The hip and sacroiliac join ts appear symmetric and unremarkable. Arthropathy of the hips. Vascular calcifications noted. There a re calcifications in the region of the urethra. There is a deformity of the left pubic ramus. IMPRESSION: 1. Findings suggest fracture of indeterminate age involving the superior and inferior left pubic david s. Correlate with point tenderness.
[2021-07-10 09:05] LABS: ALT 32 U/L (4-49); AST 42 U/L (17-59); African American GFR (CKD) >90 (>60 ml/min/1.73 sqM); Albumin 3.4 g/dL (3.5-5.0); Alkaline Phosphatase 89 U/L (38-126); Anion Gap 8 mmol/L; Blood Urea Nitrogen 16 mg/dL (9-20); Calcium 8.2 mg/dL (8.4-10.2); Carbon Dioxide 27 mmol/L (22-30); Chloride 91 mmol/L (98-107); Glucose 93 mg/dL (74-99); Magnesium 1.7 mg/dL (1.6-2.3); Non-African American GFR(CKD) >90 (>60 ml/min/1.73 sqM); Sodium 126 mmol/L (137-145); Total Bilirubin 0.4 mg/dL (0.2-1.3); Total Protein 6.6 g/dL (6.3-8.2)
[2021-07-10 09:09] LABS: Partial Thromboplastin Time 22.9 sec (22.0-30.0); Prothrombin Time 10.3 sec (9.0-12.0)
--- NOTE | 2021-07-10 09:18 | CT ---
EXAMINATION TYPE: CT brain amalia yo DATE OF EXAM: 07/10/2021 COMPARISON: NONE HISTORY: Trauma. Fall from bed this am with headache and neck pain. CT DLP: 1290 mGycm. Automated Exposure Control for Dose Reduction was Utilized. TECHNIQUE: CT scan of the head and cervical spine are performed without contrast. FINDINGS: There is no acute intracranial hemorrhage or midline shift identified. Mild to moderate v entricular and sulcal prominence. Mild low attenuation in the periventricular white matter. The calv arium is intact. Moderate mucosal thickening in the small caliber right maxillary sinus. Patchy opaci fication anterior right ethmoid sinuses. Ossified lateral aspect right frontal sinus. Globes are inta ct. Cervical spine is visualized in its entirety from C1 through upper thoracic levels and demonstrates g rade 1 anterolisthesis C4 on C5 without evidence of acute fracture or dislocation. Prevertebral soft tissue appears within normal limits. The C1-C2 articulation is within normal limits on the coronal images. Vertebral body heights and disc space heights are maintained. Spinal canal is preserved. Axial images show multilevel uncovertebral facet degenerative changes bilaterally contributing to multilevel bila teral neural foraminal narrowing. There is acute comminuted slightly displaced fracture through the d istal one third of the right clavicle axial image 65 partially imaged. On review of chest x-ray I crow pect displaced left midclavicular fracture not included in field of view on CT cervical spine. Osseou s structures are demineralized. IMPRESSION: 1. There is no acute fracture or dislocation evident in the cervical spine. Acute displaced fracture distal one third right clavicle. Displaced fracture middle one third left clavicle has been present o n several prior x-rays. More prominent displacement on today's x-ray. 2. No acute intracranial hemorrhage or midline shift is seen.
--- NOTE | 2021-07-10 10:16 | XR ---
EXAMINATION TYPE: XR clavicle RT DATE OF EXAM: 07/10/2021 COMPARISON: NONE HISTORY: Pain TECHNIQUE: 2 view submitted FINDINGS: Displaced fracture of the distal right clavicle. Coarsened interstitial lung changes are se en. IMPRESSION: 1. Displaced distal right clavicular fracture.
[2021-07-10] MEDS ORDERED: IPRATROPIUM-ALBUTEROL 3 ML NEB INHALATION PRN (10:59)
[2021-07-10] MEDS ORDERED: methylPREDNISolone SOD SUCCI 125 MG/2 ML VIAL IV STA (10:59)
[2021-07-10] MEDS: methylPREDNISolone SOD SUCCI 125 MG/2 ML VIAL IV SCH ×2 (11:49→18:54)
--- NOTE | 2021-07-10 13:27 | P.GSHP ---
History of Present Illness H&P Date: 07/10/21 CHIEF COMPLAINT: Hip and right shoulder pain HISTORY OF PRESENT ILLNESS: This is a 70-year-old male who came into the emergency room department after he rolled out of his bed landing on the floor. He reports that he did bump his head. There is no loss of consciousness. He complains of left hip pain and right shoulder pain. He was found to have evidence of a right clavicle fracture and pelvic fracture. Orthopedics have been consult at. He does have a known history of COPD and is home O2 dependent usually 4 L of oxygen. Patient denies any abdominal pain. He reports that his pain is about 7 out of 10. His arm is in a sling. Orthopedics have been consult at. He does take Plavix at home. He denies any fever, chills or sweats. Denies any nausea or vomiting. Patient admitted to trauma service. Patient seen and examined with Dr. Stanton PAST MEDICAL HISTORY: Heart Failure, COPD, Hyperlipidemia, osteoporosis, Osteoarthritis (OA), Pneumonia, Rheumatoid Arthritis (RA), Sleep Apnea/CPAP/BIPAP, COPD, chronic hypoxic respiratory failure, perforated duodenal ulcer, chronic back pain, back stenosis PAST SURGICAL HISTORY: colonoscopy, repair of a perforated duodenal ulcer and repair of an incarcerated umbilical hernia MEDICATIONS: See list. ALLERGIES: See list. SOCIAL HISTORY: No illicit drug use. Prior history of smoking. 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 REVIEW OF SYSTEMS: CONSTITUTIONAL: Denies fever or chills. HEENT: Denies blurred vision, vision changes, or eye pain. Denies hemoptysis CARDIOVASCULAR: Denies chest pain or pressure. RESPIRATORY: No shortness of breath. GASTROINTESTINAL: See HPI for pertinent findings HEMATOLOGIC: Denies bleeding disorders. GENITOURINARY: Denies any blood in urine or increased urinary frequency. SKIN: Denies pruitis. Denies rash. PHYSICAL EXAM: VITAL SIGNS: Reviewed GENERAL: Well-developed in no acute distress. HEENT: No sclera icterus. Extraocular movements grossly intact. Moist buccal mucosa. Head is atraumatic, normocephalic. No nasal drainage. ABDOMEN: Soft. Nondistended. Nontender NEUROLOGIC: Alert and oriented. Cranial nerves II through XII grossly intact. Extremities right arm in sling LABORATORY DATA: WBC 12.5 hemoglobin 12.8 platelets 323 INR 1.0 Sodium 126 potassium 4.0 BUN 16 creatinine 0.52 Lactic acid 1.7 Magnesium 1.7 LFTs normal BNP 1040 IMAGING: Chest x-ray chronic pulmonary fibrosis with bilateral infiltrate and small effusion. Underlying emphysematous changes are seen with vague nodularity in left upper lobe. There are deformities of the lower right rib cage and lower left rib cage which most likely are chronic correlate with point tenderness Pelvic x-ray findings suggest fracture of indeterminate age involving the superior and inferior left pubic ramus Computed tomography scan of head and cervical spine. There is no acute fracture or dislocation evidence of cervical spine. Acute displaced fracture distal one third of the right clavicle. Displaced fracture middle one third of left cl avicle has been present on several prior x-rays. More prominent displacement on today's x-ray. No acute intracranial hemorrhage or midline shift is seen Right clavicle x-ray shows displaced distal right clavicular fracture ASSESSMENT: 1. Fall with trauma 2. Right clavicle fracture 3. Fracture of the superior and inferior left pubic ramus 4. COPD. History of chronic respiratory failure home O2 dependent. 5. Hyponatremia PLAN: -Continue supportive care -Consult orthopedics regarding right clavicle fracture and pelvic fracture -Consult medicine service for medical management -Continue regular diet -Continue pain medication as needed -GI prophylaxis Protonix and DVT prophylaxis subcu heparin Physician Senior Radiation Protection Technician note has been reviewed by physician. Signing provider agrees with the documented findings, assessment, and plan of care. Past Medical History Past Medical History: Heart Failure, COPD, Hyperlipidemia, Osteoarthritis (OA), Pneumonia, Rheumatoid Arthritis (RA), Sleep Apnea/CPAP/BIPAP Additional Past Medical History / Comment(s): COPD, chronic hypoxic respiratory failure previous history of pneumoperitoneum related to a perforated duodenal ulcer, repair of an umbilical hernia, chronic back pain, back stenosis. History of Any Multi-Drug Resistant Organisms: None Reported Past Surgical History: Orthopedic Surgery Additional Past Surgical History / Comment(s): colonoscopy, repair of a perforated duodenal ulcer and repair of an incarcerated umbilical hernia Past Anesthesia/Blood Transfusion Reactions: No Reported Reaction Past Psychological History: Anxiety, Depression Additional Psychological History / Comment(s): Pt resides with his spouse of 38 yrs. He has home oxygen which he wears at 3-3.5L/NC. He has a nebulizer. Smoking Status: Former smoker Past Alcohol Use History: Daily Additional Past Alcohol Use History / Comment(s): Patient smoked 2 packs per day for 40+ years. He quit 6 years ago. He denies any illicit drug use or marijuana use. He drinks 2 beers per day but none since previous admission and December. 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 Mother Family Medical History: Cancer, CVA/TIA, Dementia, Diabetes Mellitus Additional Family Medical History / Comment(s): Mother is 88yrs old with history of dementia and colon cancer. Sister(s) Additional Family Medical History / Comment(s): Patient 3 sons with no major medical problems. Medications and Allergies Home Medications Medication Instructions Recorded Confirmed Type Cholecalciferol [Vitamin D3 (25 50 mcg PO DAILY 01/12/20 07/10/21 History Mcg = 1000 Iu)] HYDROcodone/APAP 10-325MG [[place] 1 tab PO TID PRN 01/12/20 07/10/21 History 10-325] Metoprolol Succinate [Toprol XL] 25 mg PO DAILY 01/12/20 07/10/21 History Omeprazole [PriLOSEC] 40 mg PO DAILY 01/12/20 07/10/21 History Sertraline [Zoloft] 150 mg PO DAILY 01/12/20 07/10/21 History Amitriptyline HCl [Elavil] 10 mg PO HS 12/06/20 07/10/21 History Benzonatate [Tessalon Perles] 200 mg PO TID PRN 12/06/20 07/10/21 History Celecoxib [CeleBREX] 200 mg PO DAILY 12/06/20 07/10/21 History Gabapentin [Neurontin] 300 mg PO HS 12/06/20 07/10/21 History Alendronate Sodium 70 mg PO MO 12/10/20 07/10/21 History Ascorbic Acid [Vitamin C] 1,000 mg PO DAILY 12/10/20 07/10/21 History Ipratropium-Albuterol Nebulize 3 ml INHALATION RT-QID 12/10/20 07/10/21 History [Duoneb 0.5 mg-3 mg/3 ml Soln] Melatonin 3 mg PO HS PRN 12/10/20 07/10/21 History Clopidogrel [Plavix] 75 mg PO DAILY #14 tab 12/13/20 07/10/21 Rx Furosemide [Lasix] 40 mg PO BID@0900,1600 #28 tab 12/13/20 07/10/21 Rx Atorvastatin [Lipitor] 40 mg PO HS 07/10/21 07/10/21 History Budesonide [Pulmicort] 0.5 mg INHALATION RT-BID 07/10/21 07/10/21 History Fluticasone Nasal [place] [Flonase 2 spr EA NOSTRIL DAILY 07/10/21 07/10/21 History Nasal [place]] predniSONE 2.5 mg PO Q48H 07/10/21 07/10/21 History Allergies Allergy/AdvReac Type Severity Reaction Status Date / Time amoxicillin AdvReac Nausea & Verified 07/10/21 10:43 Vomiting Surgical - Exam Vital Signs Temp Pulse Resp BP Pulse Ox 97.9 F 95 18 107/73 87 L 07/10/21 08:13 07/10/21 08:13 07/10/21 08:13 07/10/21 08:13 07/10/21 08:13 Results - Labs 07/10/21 08:32 07/10/21 08:32 Abnormal Lab Results - Last 24 Hours (Table) 07/10/21 07/10/21 Range/Units 08:32 08:32 WBC 12.5 H (3.8-10.6) k/uL RBC 4.24 L (4.30-5.90) m/uL Hgb 12.8 L (13.0-17.5) gm/dL Hct 38.7 L (39.0-53.0) % RDW 15.6 H (11.5-15.5) % Neutrophils # 8.5 H (1.3-7.7) k/uL Sodium 126 L (137-145) mmol/L Chloride 91 L (98-107) mmol/L Creatinine 0.52 L (0.66-1.25) mg/dL Calcium 8.2 L (8.4-10.2) mg/dL Albumin 3.4 L (3.5-5.0) g/dL Diabetes panel 07/10/21 Range/Units 08:32 Sodium 126 L (137-145) mmol/L Potassium 4.0 (3.5-5.1) mmol/L Chloride 91 L (98-107) mmol/L Carbon Dioxide 27 (22-30) mmol/L BUN 16 (9-20) mg/dL Creatinine 0.52 L (0.66-1.25) mg/dL Glucose 93 (74-99) mg/dL Calcium 8.2 L (8.4-10.2) mg/dL AST 42 (17-59) U/L ALT 32 (4-49) U/L Alkaline Phosphatase 89 (38-126) U/L Total Protein 6.6 (6.3-8.2) g/dL Albumin 3.4 L (3.5-5.0) g/dL Calcium panel 07/10/21 Range/Units 08:32 Calcium 8.2 L (8.4-10.2) mg/dL Albumin 3.4 L (3.5-5.0) g/dL Pituitary panel 07/10/21 Range/Units 08:32 Sodium 126 L (137-145) mmol/L Potassium 4.0 (3.5-5.1) mmol/L Chloride 91 L (98-107) mmol/L Carbon Dioxide 27 (22-30) mmol/L BUN 16 (9-20) mg/dL Creatinine 0.52 L (0.66-1.25) mg/dL Glucose 93 (74-99) mg/dL Calcium 8.2 L (8.4-10.2) mg/dL Adrenal panel 07/10/21 Range/Units 08:32 Sodium 126 L (137-145) mmol/L Potassium 4.0 (3.5-5.1) mmol/L Chloride 91 L (98-107) mmol/L Carbon Dioxide 27 (22-30) mmol/L BUN 16 (9-20) mg/dL Creatinine 0.52 L (0.66-1.25) mg/dL Glucose 93 (74-99) mg/dL Calcium 8.2 L (8.4-10.2) mg/dL Total Bilirubin 0.4 (0.2-1.3) mg/dL AST 42 (17-59) U/L ALT 32 (4-49) U/L Alkaline Phosphatase 89 (38-126) U/L Total Protein 6.6 (6.3-8.2) g/dL Albumin 3.4 L (3.5-5.0) g/dL
[2021-07-10] MEDS: PANTOPRAZOLE 40 MG TABLET PO SCH (15:10)
[2021-07-10] MEDS: HYDROcodone/APAP 10-325MG 1 EACH TAB PO PRN (15:28)
[2021-07-10] MEDS ORDERED: BENZONATATE 100 MG CAP PO PRN (15:34)
[2021-07-10] MEDS: IPRATROPIUM-ALBUTEROL 3 ML NEB INHALATION SCH ×2 (16:06→23:21)
[2021-07-10] MEDS ORDERED: MELATONIN 3 MG TABLET PO PRN (21:00)
[2021-07-10] MEDS: ATORVASTATIN 40 MG TAB PO SCH (21:26)
[2021-07-10] MEDS: GABAPENTIN 300 MG CAP PO SCH (21:26)
[2021-07-10] MEDS: HEPARIN SODIUM,PORCINE/PF 5,000 UNIT/0.5 ML SYRINGE SQ SCH (21:26)
[2021-07-10] MEDS: AMITRIPTYLINE HCL 10 MG TAB PO SCH (21:26)
[2021-07-10] MEDS: BUDESONIDE 0.5 MG/2 ML NEBU INHALATION SCH (23:21)
[2021-07-11] MEDS: methylPREDNISolone SOD SUCCI 125 MG/2 ML VIAL IV SCH ×3 (00:24→08:20)
[2021-07-11] MEDS: HYDROcodone/APAP 10-325MG 1 EACH TAB PO PRN ×4 (00:25→23:31)
[2021-07-11] MEDS: CHOLECALCIFEROL 25 MCG (1000 IU) TABLET PO SCH (08:20)
[2021-07-11] MEDS: HEPARIN SODIUM,PORCINE/PF 5,000 UNIT/0.5 ML SYRINGE SQ SCH ×2 (08:20→21:27)
[2021-07-11] MEDS: ASCORBIC ACID 500 MG TAB PO SCH (08:20)
[2021-07-11] MEDS: FLUTICASONE 50MCG/SPRAY NASAL 16GM EA NOSTRIL SCH (08:20)
[2021-07-11] MEDS: PANTOPRAZOLE 40 MG TABLET PO SCH (08:20)
[2021-07-11] MEDS: METOPROLOL SUCCINATE (ER) 25 MG TAB.ER.24H PO SCH (08:28)
[2021-07-11] MEDS: IPRATROPIUM-ALBUTEROL 3 ML NEB INHALATION SCH ×4 (08:36→19:42)
[2021-07-11] MEDS: BUDESONIDE 0.5 MG/2 ML NEBU INHALATION SCH ×2 (08:36→19:45)
[2021-07-11] MEDS ORDERED: NON FORMULARY DRUG (Omeprazole 40 MG Capsule.Dr) PO SCH (09:00)
[2021-07-11] MEDS ORDERED: predniSONE 2.5 MG TAB PO SCH (10:00)
[2021-07-11 10:17] LABS: Basophils # (A) 0.01 X 10*3/uL (0.00-0.10); Basophils % (A) 0.2 %; Eosinophils # (A) 0 X 10*3/uL (0.04-0.35); Eosinophils % (A) 0 %; HCT 35.5 % (39.6-50.0); HGB 11.5 g/dL (13.0-17.0); Lymphocytes # (A) 0.94 X 10*3/uL (0.90-5.00); Lymphocytes % (A) 14.7 %; MCH 29.2 pg (27.0-32.0); MCHC 32.4 g/dL (32.0-37.0); MCV 90.1 fL (80.0-97.0); Mean Platelet Volume 10.9 fL (9.5-12.2); Monocytes % (A) 4.7 %; Neutrophils # (A) 5.09 X 10*3/uL (1.80-7.70); Neutrophils % (A) 79.8 %; Platelet Count 274 X 10*3/uL (140-440); RBC 3.94 X 10*6/uL (4.40-5.60); RDW 16.1 % (11.5-14.5); WBC 6.38 X 10*3/uL (4.50-10.00)
[2021-07-11 10:59] LABS: African American GFR (CKD) 117.2 (60.0-200.0); BUN/Creat Ratio 23.67 Ratio (12.00-20.00); Blood Urea Nitrogen 14.2 mg/dL (9.0-27.0); Calcium 8.7 mg/dL (8.7-10.3); Non-African American GFR(CKD) 101.2 (60.0-200.0); Potassium 4.6 mmol/L (3.5-5.5)
[2021-07-11] MEDS: guaiFENesin 600 MG TABLET.ER PO SCH ×2 (11:30→21:27)
[2021-07-11] MEDS: SERTRALINE 50 MG TAB PO SCH (11:30)
[2021-07-11] MEDS: LEVOFLOXACIN 750 MG TAB PO SCH (11:30)
--- NOTE | 2021-07-11 12:06 | P.CONS ---
History of Present Illness - Reason for Consult Consult date: 07/11/21 - History of Present Illness HISTORY OF PRESENT ILLNESS This is a 70-year-old male patient of Dr. Holbrook and Dr. Mireles with past medical history of advanced steroid-dependent COPD, hyperlipidemia, rheumatoid arthritis, obstructive sleep apnea unable to tolerate CPAP, chronic hypoxic respiratory failure on home O2 at 4 L nasal cannula, generalized osteoarthritis, chronic back pain pseudomonas in sputum on previous admission secondary to colonization or pseudomonal pneumonia. Known FVC of 72% and FEV1 of 46%. History of perforated duodenal ulcer status post exploratory laparotomy with repair of perforated duodenal ulcer and repair of incarcerated umbilical hernia. Patient states he was doing well at home and suddenly had gone to his son's home for dinner and that afternoon and evening he was watching a football game and drank 3 beers, went to bed and then he ended up growing out of bed onto that would floor. He states he has a new quyen-size bed and he thought he had more room and he did. Patient normally ambulates with a walker. He does complain of cough with phlegm production that yellow and green. He denies having any worsening dyspnea. Echocardiogram on 12/07/2020 reveals EF of 55-60% with mild concentric left ventricular hypertrophy, trace aortic regurgitation, mild mitral regurgitation, mild tricuspid regurgitation, moderate pulmonary hypertension. Patient came into [facility] emergency center for evaluation. Patient was afebrile, heart rate 5, blood pressure 107/73, pulse ox 87% on 4 L. Patient was placed on 5 L. WBC 12.5, hemoglobin 12.8, platelet count 323. INR 1.0. Sodium 126, potassium 4.0, chloride 91, CO2 27, BUN 16 creatinine 0.52. Blood sugar 93. Troponin 0.018. Liver function tests normal. Magnesium 1.7. ProBNP 1040. Chest x-ray reveals chronic pulmonary fibrosis with bilateral infiltrate and small effusion. Underlying emphysematous changes are seen with vague nodularity in the left upper lobe. Deformities of the lower right rib cage and lower left rib cage which most likely her chronic correlated with point tenderness. Deformity of the distal clavicle correlate with point tenderness for fracture. Right clavicle x-ray revealed displaced distal right clavicle fracture. CAT scan of the brain and cervical spine revealed no acute fracture or dislocation in the cervical spine. Acute displaced fracture distal one third right clavicle. Displaced fracture middle one third left clavicle has been present on several prior x-rays. No acute intracranial hemorrhage or midline shift. X-ray left hip and pelvis revealed fracture of the intermediate age involving the superior and inferior left pubic ramus. Patient has been admitted to the general surgery and we are following for medical management. REVIEW OF SYSTEMS Constitutional: No fever, no chills, no night sweats. No weight change. No weakness, fatigue or lethargy. No daytime sleepiness. EENT: No headache. No blurred vision or double vision, no loss of vision. No loss of Hearing, no ringing in the ears, no dizziness. No nasal drainage or congestion. No epistaxis. No sore throat. Lungs: Reports shortness of breath, Reports cough, Reports sputum production. No wheezing. Cardiovascular: No chest pain, no lower extremity edema. No palpitations. No paroxysmal nocturnal dyspnea. No orthopnea. No lightheadedness or dizziness. No syncopal episodes. Abdominal: No abdominal pain. No nausea, vomiting. No diarrhea. No constipation. No bloody or tarry stools.. No loss of appetite. Genitourinary: No dysuria, increased frequency, urgency. No urinary retention. Musculoskeletal: No myalgias. No muscle weakness, no gait dysfunction, no frequent falls. No back pain. No neck pain. Integumentary: No wounds, no lesions. No rash or pruritus. No unusual bruising. No change in hair or nails. Neurologic: No aphasia. No facial droop. No change in mentation. No head injury. No headache. No paralysis. No paresthesia. Psychiatric: No depression. No anxiety. No mood swings. Endocrine: No abnormal blood sugars. No weight change. SOCIAL HISTORY Patient smoked 2 packs per day for 40+ years. He quit 7 years ago. He denies any illicit drug use or marijuana use. He drinks 2 beers per day. 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 patient is has adult children wo are involved. FAMILY HISTORY Father of leukemia. Mother is 89 yrs old with history of dementia and colon cancer. Patient has 1 full sister with history of lung cancer. Patient has one half-sister with adrenal problems. Patient does not have any brothers. Patient 3 sons with no major medical problems. PHYSICAL EXAMINATION Gen: This is 70-year-old male. Patient is resting in bed appears to be comfortable and in no acute distress. HEENT: Head is atraumatic, normocephalic. Pupils equal, round. Sclerae is anicteric. NECK: Supple. No JVD. No lymphadenopathy. No thyromegaly. LUNGS: No wheezing. Diminished at bases. Crackles bilaterally. No intercostal retractions. HEART: Regular rate and rhythm. Systolic murmur. Sinus tachycardia. ABDOMEN: Soft. Bowel sounds are present. No masses. No tenderness. Large ventral hernia, soft. EXTREMITIES: No pedal edema. No calf tenderness. Dorsalis pedis palpable bilaterally. NEUROLOGICAL: Patient is awake, alert and oriented x3. Cranial nerves 2 through 12 are grossly intact. ASSESSMENT AND PLAN 1. Fall with trauma, stable. 2. Right clavicular fracture. 3. Fracture of the superior and inferior left pubic ramus, pathologic. Consult with orthopedics. 4. Infiltrates on chest x-ray possible pneumonia, gram-negative pneumonia. Patient will be started on Levaquin 750 mg daily, Mucinex 1200 mg twice daily, Tessalon Perles 200 mg 3 times daily as needed and pro-calcitonin ordered. 5. Chronic hypoxic respiratory failure. Continue oxygen therapy. 6. Advanced COPD with pulmonary fibrosis, steroid dependent and chronic hypoxic and hypercapnic respiratory failure on home O2 at 4 L. continue Pulmicort 0.5 mg twice daily, prednisone 2.5 mg every 48 hours, DuoNeb treatments 4 times daily, discontinue IV Solu-Medrol. 7. Moderate pulmonary hypertension. 8. Hypertension. Continue Toprol-XL 25 mg daily. 9. Rheumatoid arthritis, stable. 10. Hyperlipidemia. Continue atorvastatin 40 mg at bedtime. 11. Obstructive sleep apnea unable to tolerate CPAP. 12. Chronic back pain and generalized osteoarthritis. Continue [place] as needed, gabapentin 300 mg at bedtime 13. History of perforated duodenal ulcer status post exploratory laparotomy with repair of perforated duodenal ulcer and repair of incarcerated umbilical hernia. 14. Generalized anxiety disorder and recurrent depression. Continue Zoloft 150 mg daily, Elavil 10 mg at bedtime. 15. DVT prophylaxis. Heparin subcu. 16. GI prophylaxis. Continue Protonix daily. 17. Insomnia. Continue Elavil 10 mg at bedtime. Patient will be admitted to the hospital for a minimum of 2 night stay. DISCHARGE PLAN Most likely subacute rehab. Consult PT and OT. Impression and plan of care have been directed as dictated by the signing physician. [place] Sal[place] nurse practitioner acting as scribe for signing physician. Past Medical History Past Medical History: Heart Failure, COPD, Hyperlipidemia, Osteoarthritis (OA), Pneumonia, Rheumatoid Arthritis (RA), Sleep Apnea/CPAP/BIPAP Additional Past Medical History / Comment(s): COPD, chronic hypoxic respiratory failure previous history of pneumoperitoneum related to a perforated duodenal ulcer, repair of an umbilical hernia, chronic back pain, back stenosis. History of Any Multi-Drug Resistant Organisms: None Reported Past Surgical History: Orthopedic Surgery Additional Past Surgical History / Comment(s): colonoscopy, repair of a perforated duodenal ulcer and repair of an incarcerated umbilical hernia Past Anesthesia/Blood Transfusion Reactions: No Reported Reaction Past Psychological History: Anxiety, Depression Additional Psychological History / Comment(s): Pt resides with his spouse of 38 yrs. He has home oxygen which he wears at 3-3.5L/NC. He has a nebulizer. Smoking Status: Former smoker Past Alcohol Use History: Daily Additional Past Alcohol Use History / Comment(s): Patient smoked 2 packs per day for 40+ years. He quit 6 years ago. He denies any illicit drug use or marijuana use. He drinks 2 beers per day but none since previous admission and December. 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 Mother Family Medical History: Cancer, CVA/TIA, Dementia, Diabetes Mellitus Additional Family Medical History / Comment(s): Mother is 88yrs old with history of dementia and colon cancer. Sister(s) Additional Family Medical History / Comment(s): Patient 3 sons with no major medical problems. Medications and Allergies Home Medications Medication Instructions Recorded Confirmed Type Cholecalciferol [Vitamin D3 (25 50 mcg PO DAILY 01/12/20 07/10/21 History Mcg = 1000 Iu)] HYDROcodone/APAP 10-325MG [[place] 1 tab PO TID PRN 01/12/20 07/10/21 History 10-325] Metoprolol Succinate [Toprol XL] 25 mg PO DAILY 01/12/20 07/10/21 History Omeprazole [PriLOSEC] 40 mg PO DAILY 01/12/20 07/10/21 History Sertraline [Zoloft] 150 mg PO DAILY 01/12/20 07/10/21 History Amitriptyline HCl [Elavil] 10 mg PO HS 12/06/20 07/10/21 History Benzonatate [Tessalon Perles] 200 mg PO TID PRN 12/06/20 07/10/21 History Celecoxib [CeleBREX] 200 mg PO DAILY 12/06/20 07/10/21 History Gabapentin [Neurontin] 300 mg PO HS 12/06/20 07/10/21 History Alendronate Sodium 70 mg PO MO 12/10/20 07/10/21 History Ascorbic Acid [Vitamin C] 1,000 mg PO DAILY 12/10/20 07/10/21 History Ipratropium-Albuterol Nebulize 3 ml INHALATION RT-QID 12/10/20 07/10/21 History [Duoneb 0.5 mg-3 mg/3 ml Soln] Melatonin 3 mg PO HS PRN 12/10/20 07/10/21 History Clopidogrel [Plavix] 75 mg PO DAILY #14 tab 12/13/20 07/10/21 Rx Furosemide [Lasix] 40 mg PO BID@0900,1600 #28 tab 12/13/20 07/10/21 Rx Atorvastatin [Lipitor] 40 mg PO HS 07/10/21 07/10/21 History Budesonide [Pulmicort] 0.5 mg INHALATION RT-BID 07/10/21 07/10/21 History Fluticasone Nasal [place] [Flonase 2 spr EA NOSTRIL DAILY 07/10/21 07/10/21 History Nasal [place]] predniSONE 2.5 mg PO Q48H 07/10/21 07/10/21 History Allergies Allergy/AdvReac Type Severity Reaction Status Date / Time amoxicillin AdvReac Nausea & Verified 07/10/21 10:43 Vomiting Physical Exam Vitals: Vital Signs Temp Pulse Pulse Resp BP BP Pulse Ox 07/11/21 08:50 88 07/11/21 08:36 84 07/11/21 01:19 96 07/11/21 01:18 98.6 F 94 20 110/68 81 L 07/11/21 00:00 103 H 18 117/73 93 L 07/10/21 21:21 110 H 22 122/78 95 07/10/21 20:22 100 18 119/71 95 07/10/21 16:14 104 H 07/10/21 16:06 100 07/10/21 14:27 18 110/61 92 L 07/10/21 11:52 98 18 101/60 95 Intake and Output 07/10/21 07/11/21 07/11/21 22:59 06:59 14:59 Output Total 250 Balance -250 Output: Urine 250 Other: Weight 68.039 kg Results CBC & Chem 7: 07/11/21 03:33 07/11/21 03:33
--- NOTE | 2021-07-11 14:21 | P.PN ---
Subjective Progress Note Date: 07/11/21 CHIEF COMPLAINT: Hip and right shoulder pain HISTORY OF PRESENT ILLNESS: This is a 70-year-old male who fell off of his bed and had evidence of a right clavicle fracture and fracture of the superior and inferior left pubic ramus. Patient seen by orthopedics. Awaiting their final decision. Patient reports that his pain is controlled. He currently has not been up to ambulate because we are awaiting orthopedic recommendations about activity level. Patient tolerating diet. Denies any nausea or vomiting. Denies any new pain. Denies any abdominal pain. Patient has been seen by medicine service. Afebrile. On 4 L of oxygen which he uses home. WBC has normalized at 6.38 Hgb 11.5 platelets 274 sodium is up from 126-133 creatinine 0.6 PHYSICAL EXAM: VITAL SIGNS: Reviewed. GENERAL: Well-developed in no acute distress. HEENT: No sclera icterus. Extraocular movements grossly intact. Moist buccal mucosa. Head is atraumatic, normocephalic. ABDOMEN: Soft. Nondistended. Nontender. Reducible incisional hernia NEUROLOGIC: Alert and oriented. Cranial nerves II through XII grossly intact. ASSESSMENT: 1. Fall with trauma 2. Right clavicle fracture 3. Fracture of the superior and inferior left pubic ramus 4. COPD. History of chronic respiratory failure home O2 dependent. 5. Hyponatremia PLAN: -Awaiting orthopedic recommendations -Continue supportive care -Continue pain medication as needed -GI prophylaxis Protonix and DVT prophylaxis subcu heparin Physician Purchase Price Analyst note has been reviewed by physician. Signing provider agrees with the documented findings, assessment, and plan of care. Objective - Vital Signs Vital signs: Vital Signs Temp 97.6 F 07/11/21 08:00 Pulse 88 07/11/21 08:50 Resp 16 07/11/21 08:00 BP 134/78 07/11/21 08:00 Pulse Ox 94 L 07/11/21 08:00 Intake & Output 07/10/21 07/11/21 07/11/21 18:59 06:59 18:59 Intake Total 360 Output Total 250 Balance -250 360 Weight 68.039 kg Intake: Oral 360 Output: Urine 250 - Labs CBC & Chem 7: 07/11/21 03:33 07/11/21 03:33 Labs: Abnormal Lab Results - Last 24 Hours (Table) 07/11/21 07/11/21 Range/Units 03:33 03:33 RBC 3.94 L (4.40-5.60) X 10*6/uL Hgb 11.5 L (13.0-17.0) g/dL Hct 35.5 L (39.6-50.0) % RDW 16.1 H (11.5-14.5) % Eosinophils # 0 L (0.04-0.35) X 10*3/uL Sodium 133 L (135-145) mmol/L Chloride 95 L (96-109) mmol/L BUN/Creatinine Ratio 23.67 H (12.00-20.00) Ratio Glucose 141 H (70-110) mg/dL
[2021-07-11] MEDS ORDERED: LORazepam 2 MG/ML INJ IV PRN ×3 (14:22)
--- NOTE | 2021-07-11 15:09 | P.CNOR ---
History of Present Illness - [facility] Consult date: 07/11/21 History of present illness: This patient is a 70-year-old male with a past medical history of COPD, hyperlipidemia, chronic hypoxic respiratory failure on home O2, umbilical hernia that presented to [facility] emergency department on 07/10/21 with complaints of left hip pain following a fall at home. Patient states he rolled out of bed and landed on the floor. He was unable to get up on his own, his helped him. Patient presented to [facility] emergency department. X-rays were obtained and revealed a right clavicle fracture and left superior and inferior pubic rami fractures. CT of the head and C-spine revealed no cervical spine fracture, no acute intracranial findings. Patient was admitted under the care of trauma with a consult placed to orthopedic surgery. Patient is seen and examined beside this morning. He states his is only experiencing pain in his pelvis. He denies pain in his right shoulder or clav icle. He denies left shoulder, clavicle pain. Patient states he has had multiple falls recently. He denies additional injuries or areas of pain. He has not yet been out of bed since being admitted to the hospital. He had no additional complaints at this time. Past Medical History Past Medical History: Heart Failure, COPD, Hyperlipidemia, Osteoarthritis (OA), Pneumonia, Rheumatoid Arthritis (RA), Sleep Apnea/CPAP/BIPAP Additional Past Medical History / Comment(s): COPD, chronic hypoxic respiratory failure previous history of pneumoperitoneum related to a perforated duodenal ulcer, repair of an umbilical hernia, chronic back pain, back stenosis. History of Any Multi-Drug Resistant Organisms: None Reported Past Surgical History: Orthopedic Surgery Additional Past Surgical History / Comment(s): colonoscopy, repair of a perforated duodenal ulcer and repair of an incarcerated umbilical hernia Past Anesthesia/Blood Transfusion Reactions: No Reported Reaction Past Psychological History: Anxiety, Depression Additional Psychological History / Comment(s): Pt resides with his spouse of 38 yrs. He has home oxygen which he wears at 3-3.5L/NC. He has a nebulizer. Smoking Status: Former smoker Past Alcohol Use History: Daily Additional Past Alcohol Use History / Comment(s): Patient smoked 2 packs per day for 40+ years. He quit 6 years ago. He denies any illicit drug use or marijuana use. He drinks 2 beers per day but none since previous admission and December. 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 Mother Family Medical History: Cancer, CVA/TIA, Dementia, Diabetes Mellitus Additional Family Medical History / Comment(s): Mother is 88yrs old with history of dementia and colon cancer. Sister(s) Additional Family Medical History / Comment(s): Patient 3 sons with no major medical problems. Medications and Allergies Home Medications Medication Instructions Recorded Confirmed Type Cholecalciferol [Vitamin D3 (25 50 mcg PO DAILY 01/12/20 07/10/21 History Mcg = 1000 Iu)] HYDROcodone/APAP 10-325MG [[place] 1 tab PO TID PRN 01/12/20 07/10/21 History 10-325] Metoprolol Succinate [Toprol XL] 25 mg PO DAILY 01/12/20 07/10/21 History Omeprazole [PriLOSEC] 40 mg PO DAILY 01/12/20 07/10/21 History Sertraline [Zoloft] 150 mg PO DAILY 01/12/20 07/10/21 History Amitriptyline HCl [Elavil] 10 mg PO HS 12/06/20 07/10/21 History Benzonatate [Tessalon Perles] 200 mg PO TID PRN 12/06/20 07/10/21 History Celecoxib [CeleBREX] 200 mg PO DAILY 12/06/20 07/10/21 History Gabapentin [Neurontin] 300 mg PO HS 12/06/20 07/10/21 History Alendronate Sodium 70 mg PO MO 12/10/20 07/10/21 History Ascorbic Acid [Vitamin C] 1,000 mg PO DAILY 12/10/20 07/10/21 History Ipratropium-Albuterol Nebulize 3 ml INHALATION RT-QID 12/10/20 07/10/21 History [Duoneb 0.5 mg-3 mg/3 ml Soln] Melatonin 3 mg PO HS PRN 12/10/20 07/10/21 History Clopidogrel [Plavix] 75 mg PO DAILY #14 tab 12/13/20 07/10/21 Rx Furosemide [Lasix] 40 mg PO BID@0900,1600 #28 tab 12/13/20 07/10/21 Rx Atorvastatin [Lipitor] 40 mg PO HS 07/10/21 07/10/21 History Budesonide [Pulmicort] 0.5 mg INHALATION RT-BID 07/10/21 07/10/21 History Fluticasone Nasal [place] [Flonase 2 spr EA NOSTRIL DAILY 07/10/21 07/10/21 History Nasal [place]] predniSONE 2.5 mg PO Q48H 07/10/21 07/10/21 History Allergies Allergy/AdvReac Type Severity Reaction Status Date / Time amoxicillin AdvReac Nausea & Verified 07/10/21 10:43 Vomiting Physical Examination On examination, patient is sitting up in bed in no apparent distress. He is alert and orientated x3. His head appears normocephalic and atraumatic. His breathing appears non-labored, nasal cannula in place. On inspection of the right clavicle, there is no swelling, ecchymosis, skin discoloration. There are no open wounds or lacerations, skin is intact. There is no pain with palpation of the right clavicle, shoulder, humerus, elbow, forearm, wrist, hand. Motor and sensory function intact of the right upper extremity. Right upper extremity is warm and well perfused with brisk capillary refill distally. No obvious deformities or signs of trauma of the left upper extremity. There is no pain with palpation of the left clavicle. Skin is intact. Small areas of ecchymosis overlying the bilateral upper extremities. There is no pain with PROM of the bilateral hips. No pain with logrolling. No pain with PROM of the bilateral knees, ankles. Motor and sensory function intact of the bilateral lower extremities. Dorsalis pedis pulses easily palpable bilate rally, the bilateral lower extremities are warm and well perfused. Calves are soft and non-tender. Results Right clavicle x-ray 07/10/21: Mildly displaced distal third clavicle fracture. Age indeterminate. Pelvis x-ray 07/10/21: Superior and inferior pubic rami fractures. Age indeterminate. Upon review of previous x-rays from previous visits, patient also has a chronic left clavicle fracture, age indeterminate. - Labs Labs: H & H 07/10/21 Range/Units 08:32 Hgb 12.8 L (13.0-17.5) gm/dL Hct 38.7 L (39.0-53.0) % Coagulation 07/10/21 Range/Units 08:32 INR 1.0 (<1.2) Result Diagrams: 07/11/21 03:33 07/11/21 03:33 Assessment and Plan Assessment: Distal third right clavicle fracture, age indeterminate. Superior and inferior left pubic rami fractures, age indeterminate. History of multiple falls. Plan: - Clinical and imaging findings were discussed with the patient. The patient was discussed in detail with Dr. Hebert. We have no plans for surgical int ervention at this time. - Based on his clinical exam, right clavicle fracture is most likely subacute. He may wear the sling for comfort. No lifting with right upper extremity at this time. - Patient may weight bear to tolerance with a walker. Up with assistance. - Recommend evaluation by physical therapy for gait and balance training. Patient may also require discharge to long term facility. - Pain management as needed. - Medical management per internal medicine. - Patient my discharge from an orthopedic standpoint. We will plan to see the patient in the office in 7-10 days for repeat x-rays.
[2021-07-11] MEDS: THIAMINE 100 MG TAB PO SCH (15:31)
[2021-07-11] MEDS: AMITRIPTYLINE HCL 10 MG TAB PO SCH (21:27)
[2021-07-11] MEDS: ATORVASTATIN 40 MG TAB PO SCH (21:27)
[2021-07-11] MEDS: GABAPENTIN 300 MG CAP PO SCH (21:27)
[2021-07-12] MEDS: IPRATROPIUM-ALBUTEROL 3 ML NEB INHALATION SCH ×2 (07:38→11:06)
[2021-07-12] MEDS: BUDESONIDE 0.5 MG/2 ML NEBU INHALATION SCH (07:38)
[2021-07-12] MEDS: PANTOPRAZOLE 40 MG TABLET PO SCH (08:15)
[2021-07-12] MEDS: guaiFENesin 600 MG TABLET.ER PO SCH (08:16)
[2021-07-12] MEDS: LEVOFLOXACIN 750 MG TAB PO SCH (08:16)
[2021-07-12] MEDS: THIAMINE 100 MG TAB PO SCH (08:16)
[2021-07-12] MEDS: CHOLECALCIFEROL 25 MCG (1000 IU) TABLET PO SCH (08:16)
[2021-07-12] MEDS: METOPROLOL SUCCINATE (ER) 25 MG TAB.ER.24H PO SCH (08:16)
[2021-07-12] MEDS: ASCORBIC ACID 500 MG TAB PO SCH (08:16)
[2021-07-12] MEDS: SERTRALINE 50 MG TAB PO SCH (08:16)
[2021-07-12] MEDS: HEPARIN SODIUM,PORCINE/PF 5,000 UNIT/0.5 ML SYRINGE SQ SCH (08:17)
[2021-07-12] MEDS: HYDROcodone/APAP 10-325MG 1 EACH TAB PO PRN ×2 (08:29→16:24)
[2021-07-12] MEDS ORDERED: MULTIVITAMINS, THERA 1 EACH TAB PO SCH (09:00)
[2021-07-12] MEDS ORDERED: predniSONE 20 MG TAB PO SCH (09:45)
[2021-07-12] MEDS: FLUTICASONE 50MCG/SPRAY NASAL 16GM EA NOSTRIL SCH (11:37)
[2021-07-12] MEDS ORDERED: KETOROLAC 15 MG/ML 1 ML VIAL IVP SCH (12:00)
[2021-07-12] MEDS ORDERED: ACETAMINOPHEN TAB 500 MG TAB PO SCH (12:00)
--- NOTE | 2021-07-12 12:51 | P.PN ---
Subjective Progress Note Date: 07/12/21 HISTORY OF PRESENT ILLNESS This is a 70-year-old male patient of Dr. Holbrook and Dr. Mireles with past medical history of advanced steroid-dependent COPD, hyperlipidemia, rheumatoid arthritis, obstructive sleep apnea unable to tolerate CPAP, chronic hypoxic respiratory failure on home O2 at 4 L nasal cannula, generalized osteoarthritis, chronic back pain pseudomonas in sputum on previous admission secondary to colonization or pseudomonal pneumonia. Known FVC of 72% and FEV1 of 46%. History of perforated duodenal ulcer status post exploratory laparotomy with repair of perforated duodenal ulcer and repair of incarcerated umbilical hernia. Patient states he was doing well at home and suddenly had gone to his son's home for dinner and that afternoon and evening he was watching a football game and drank 3 beers, went to bed and then he ended up growing out of bed onto that would floor. He states he has a new quyen-size bed and he thought he had more room and he did. Patient normally ambulates with a walker. He does complain of cough with phlegm production that yellow and green. He denies having any worsening dyspnea. Echocardiogram on 12/07/2020 reveals EF of 55-60% with mild concentric left ventricular hypertrophy, trace aortic regurgitation, mild mitral regurgitation, mild tricuspid regurgitation, moderate pulmonary hypertension. Patient came into [facility] emergency center for evaluation. Patient was afebrile, heart rate 5, blood pressure 107/73, pulse ox 87% on 4 L. Patient was placed on 5 L. WBC 12.5, hemoglobin 12.8, platelet count 323. INR 1.0. Sodium 126, potassium 4.0, chloride 91, CO2 27, BUN 16 creatinine 0.52. Blood sugar 93. Troponin 0.018. Liver function tests normal. Magnesium 1.7. ProBNP 1040. Chest x-ray reveals chronic pulmonary fibrosis with bilateral infiltrate and small effusion. Underlying emphysematous changes are seen with vague nodularity in the left upper lobe. Deformities of the lower right rib cage and lower left rib cage which most likely her chronic correlated with point tenderness. Deformity of the distal clavicle correlate with point tenderness for fracture. Right clavicle x-ray revealed displaced distal right clavicle fracture. CAT scan of the brain and cervical spine revealed no acute fracture or dislocation in the cervical spine. Acute displaced fracture distal one third right clavicle. Displaced fracture middle one third left clavicle has been present on several prior x-rays. No acute intracranial hemorrhage or midline shift. X-ray left hip and pelvis revealed fracture of the intermediate age involving the superior and inferior left pubic ramus. Patient has been admitted to the general surgery and we are following for medical management. 07/12: Patient has been seen by orthopedic with weightbearing as tolerated. Patient complains of pain to the pelvis as a #8/10 and complains of right-sided chest pain with coughing. We will add in scheduled Toradol and scheduled Tylenol trying to avoid sedating medications. Patient has been afebrile, heart rate 99, blood pressure 118/49, pulse ox 91% on 4 L nasal cannula. Regarding the right-sided clavicle fracture on imaging, patient does not have tenderness at this site and would expect this to be an old fracture. Pro-calcitonin came back at 0.08 but we will continue Levaquin and add in prednisone for possible bronchitis. Incentive spirometry will be added. Patient has been seen by therapies with recommendations for subacute rehab. Social work is following for discharge plan to rehab most likely ready by tomorrow. REVIEW OF SYSTEMS Constitutional: No fever, no chills, no night sweats. No weight change. No weakness, fatigue or lethargy. No daytime sleepiness. EENT: No headache. No blurred vision or double vision, no loss of vision. No loss of Hearing, no ringing in the ears, no dizziness. No nasal drainage or congestion. No epistaxis. No sore throat. Lungs: Reports shortness of breath which is chronic, Reports cough, Reports sputum production. No wheezing. Cardiovascular: No chest pain, no lower extremity edema. No palpitations. No paroxysmal nocturnal dyspnea. No orthopnea. No lightheadedness or dizziness. No syncopal episodes. Abdominal: No abdominal pain. No nausea, vomiting. No diarrhea. No constipation. No bloody or tarry stools.. No loss of appetite. Genitourinary: No dysuria, increased frequency, urgency. No urinary retention. Musculoskeletal: No myalgias. No muscle weakness, no gait dysfunction, no frequent falls. No back pain. No neck pain. Reports pelvic pain. Reports right rib pain. Integumentary: No wounds, no lesions. No rash or pruritus. No unusual bruising. No change in hair or nails. Neurologic: No aphasia. No facial droop. No change in mentation. No head injury. No headache. No paralysis. No paresthesia. Psychiatric: No depression. No anxiety. No mood swings. Endocrine: No abnormal blood sugars. No weight change. PHYSICAL EXAMINATION Gen: This is 70-year-old male. Patient is resting in recliner to be comfortable and in no acute distress. HEENT: Head is atraumatic, normocephalic. Pupils equal, round. Sclerae is anicteric. NECK: Supple. No JVD. No lymphadenopathy. No thyromegaly. LUNGS: No wheezing. Diminished at bases. Crackles bilaterally. No intercostal retractions. HEART: Regular rate and rhythm. Systolic murmur. ABDOMEN: Soft. Bowel sounds are present. No masses. No tenderness. Large ventral hernia, soft. EXTREMITIES: No pedal edema. No calf tenderness. Dorsalis pedis palpable bilaterally. NEUROLOGICAL: Patient is awake, alert and oriented x3. Cranial nerves 2 through 12 are grossly intact. ASSESSMENT AND PLAN 1. Fall with trauma, stable. 2. Right clavicular fracture most likely is chronic in nature . 3. Fracture of the superior and inferior left pubic ramus, pathologic. Consult with orthopedics appreciated. Patient to be weightbearing as tolerated, PT and OT, Toradol 15 mg every 6 hours IV push, Tylenol 500 mg every 6 hours scheduled for pain control . 4. Infiltrates on chest x-ray possible pneumonia not likely with normal pro- calciton. Will continue Levaquin 500 mg daily, prednisone 40 mg daily for 5 days for possible bronchitis. Continue Mucinex 1200 mg twice daily, Tessalon Perles 200 mg 3 times daily as needed. 5. Chronic hypoxic respiratory failure. Continue oxygen therapy. 6. Advanced COPD with pulmonary fibrosis, steroid dependent and chronic hypoxic and hypercapnic respiratory failure on home O2 at 4 L. continue Pulmicort 0.5 mg twice daily, prednisone 2.5 mg every 48 hours, DuoNeb treatments 4 times daily, discontinue IV Solu-Medrol. 7. Moderate pulmonary hypertension. 8. Hypertension. Continue Toprol-XL 25 mg daily. 9. Rheumatoid arthritis, stable. 10. Hyperlipidemia. Continue atorvastatin 40 mg at bedtime. 11. Obstructive sleep apnea unable to tolerate CPAP. 12. Chronic back pain and generalized osteoarthritis. Continue [place] as needed, gabapentin 300 mg at bedtime 13. History of perforated duodenal ulcer status post exploratory laparotomy with repair of perforated duodenal ulcer and repair of incarcerated umbilical hernia. 14. Generalized anxiety disorder and recurrent depression. Continue Zoloft 150 mg daily, Elavil 10 mg at bedtime. 15. DVT prophylaxis. Heparin subcu. 16. GI prophylaxis. Continue Protonix daily. 17. Insomnia. Continue Elavil 10 mg at bedtime. DISCHARGE PLAN Subacute rehab at [facility] or [facility], most likely will be ready on . Impression and plan of care have been directed as dictated by the signing physician. [place]ia Salinas nurse practitioner acting as scribe for signing physician. Objective - Vital Signs Vital signs: Vital Signs Temp 97.5 F L 07/12/21 08:00 Pulse 92 07/12/21 11:19 Resp 20 07/12/21 08:00 BP 118/49 07/12/21 01:26 Pulse Ox 91 L 07/12/21 08:00 Intake & Output 07/11/21 07/12/21 07/12/21 18:59 06:59 18:59 Intake Total 480 500 90 Balance 480 500 90 Intake: Oral 480 500 90 Other: Voiding Method Urinal # Voids 0 2 - Labs CBC & Chem 7: 07/11/21 03:33 07/11/21 03:33
--- NOTE | 2021-07-12 14:32 | P.DS ---
Providers Date of admission: 07/10/21 10:59 Expected date of discharge: 07/12/21 Attending physician: Enrique Stanton Consults: 07/10/21 10:59 Consult Physician Routine Consulting Provider: James Hebert Consult Reason/Comments: Right clavicle fracture, left pubic rami fracture superior and inferior Do you want consulting provider notified?: Yes 07/10/21 11:01 Consult Physician Routine Consulting Provider: Cole Kirk Consult Reason/Comments: COPD Do you want consulting provider notified?: Yes Primary care physician: Razia Holbrook Hospital Course: Discharge diagnosis 1. Fall with trauma 2. Right clavicle fracture 3. Fracture of the superior and inferior left pubic ramus 4. COPD. History of chronic respiratory failure home O2 dependent. 5. Hyponatremia 6. Possible bronchitis Hospital course Hospital course his is a 70-year-old male who came into the emergency room department after he rolled out of his bed landing on the floor. He reports that he did bump his head. There is no loss of consciousness. He complains of left hip pain and right shoulder pain. He was found to have evidence of a right clavicle fracture and pelvic fracture. Orthopedics have been consulted. They recommended conservative management and no surgical intervention. Patient He does have a known history of COPD and is home O2 dependent usually 4 L of oxygen. Patient denies any abdominal pain. Patient worked with PT OT. They are recommending subacute rehab. Patient is stable for discharge. He'll be discharged to [facility] for further rehab. His pain is controlled. He is tolerating diet. He's afebrile. He has been up and ambulating. Please refer to chart for any further details. Physician Bridge Carpenter note has been reviewed by physician. Signing provider agrees with the documented findings, assessment, and plan of care. Patient Condition at Discharge: Stable Plan - Discharge Summary New Discharge Prescriptions: New predniSONE [Deltasone] 40 mg PO DAILY 4 Days tab guaiFENesin [Mucinex] 1,200 mg PO Q12HR tablet Multivitamins, Thera [Multivitamin (formulary)] 1 each PO DAILY tab Levofloxacin [Levaquin] 500 mg PO Q24H #4 tab Thiamine [Vitamin B-1] 100 mg PO BID-W/MEALS tab Continue Cholecalciferol [Vitamin D3 (25 Mcg = 1000 Iu)] 50 mcg PO DAILY Omeprazole [PriLOSEC] 40 mg PO DAILY Metoprolol Succinate [Toprol XL] 25 mg PO DAILY Sertraline [Zoloft] 150 mg PO DAILY Benzonatate [Tessalon Perles] 200 mg PO TID PRN PRN Reason: Cough Celecoxib [CeleBREX] 200 mg PO DAILY Melatonin 3 mg PO HS PRN PRN Reason: Insomnia Clopidogrel [Plavix] 75 mg PO DAILY #14 tab Fluticasone Nasal [place] [Flonase Nasal [place]] 2 spr EA NOSTRIL DAILY Gabapentin [Neurontin] 300 mg PO HS #3 cap HYDROcodone/APAP 10-325MG [[place] 10-325] 1 tab PO TID PRN #9 tab PRN Reason: Pain predniSONE 2.5 mg PO Q48H #0 Amitriptyline HCl [Elavil] 10 mg PO HS Alendronate Sodium 70 mg PO MO Ascorbic Acid [Vitamin C] 1,000 mg PO DAILY Ipratropium-Albuterol Nebulize [Duoneb 0.5 mg-3 mg/3 ml Soln] 3 ml INHALATION RT-QID Budesonide [Pulmicort] 0.5 mg INHALATION RT-BID Atorvastatin [Lipitor] 40 mg PO HS Changed Furosemide [Lasix] 40 mg PO DAILY #28 tab Discharge Medication List Cholecalciferol [Vitamin D3 (25 Mcg = 1000 Iu)] 50 mcg PO DAILY 01/12/20 [History] Metoprolol Succinate [Toprol XL] 25 mg PO DAILY 01/12/20 [History] Omeprazole [PriLOSEC] 40 mg PO DAILY 01/12/20 [History] Sertraline [Zoloft] 150 mg PO DAILY 01/12/20 [History] Amitriptyline HCl [Elavil] 10 mg PO HS 12/06/20 [History] Benzonatate [Tessalon Perles] 200 mg PO TID PRN 12/06/20 [History] Celecoxib [CeleBREX] 200 mg PO DAILY 12/06/20 [History] Alendronate Sodium 70 mg PO MO 12/10/20 [History] Ascorbic Acid [Vitamin C] 1,000 mg PO DAILY 12/10/20 [History] Ipratropium-Albuterol Nebulize [Duoneb 0.5 mg-3 mg/3 ml Soln] 3 ml INHALATION RT-QID 12/10/20 [History] Melatonin 3 mg PO HS PRN 12/10/20 [History] Clopidogrel [Plavix] 75 mg PO DAILY #14 tab 12/13/20 [Rx] Atorvastatin [Lipitor] 40 mg PO HS 07/10/21 [History] Budesonide [Pulmicort] 0.5 mg INHALATION RT-BID 07/10/21 [History] Fluticasone Nasal [place] [Flonase Nasal [place]] 2 spr EA NOSTRIL DAILY 07/10/21 [History] Furosemide [Lasix] 40 mg PO DAILY #28 tab 07/12/21 [Rx] Gabapentin [Neurontin] 300 mg PO HS #3 cap 07/12/21 [Rx] HYDROcodone/APAP 10-325MG [[place] 10-325] 1 tab PO TID PRN #9 tab 07/12/21 [Rx] Levofloxacin [Levaquin] 500 mg PO Q24H #4 tab 07/12/21 [Rx] Multivitamins, Thera [Multivitamin (formulary)] 1 each PO DAILY tab 07/12/21 [Rx] Thiamine [Vitamin B-1] 100 mg PO BID-W/MEALS tab 07/12/21 [Rx] guaiFENesin [Mucinex] 1,200 mg PO Q12HR tablet 07/12/21 [Rx] predniSONE 2.5 mg PO Q48H #0 07/12/21 [Rx] predniSONE [Deltasone] 40 mg PO DAILY 4 Days tab 07/12/21 [Rx] Follow up Appointment(s)/Referral(s): Razia Holbrook MD [Primary Care Provider] - 1 Week James Hebert MD [Medical Doctor] - 1 Week Activity/Diet/Wound Care/Special Instructions: Activity as tolerated Diet regular Discharge Disposition: TRANSFER TO SNF/ECF
[2021-07-12 15:21] VITALS: BP 102/65; PULSE 99; RESP 18; TEMP 98.1
[2021-07-13] MEDS ORDERED: LEVOFLOXACIN 500 MG TAB PO SCH (09:00)
== END 2021-07-12 16:27 | DRG 536 ==
LOC: EC 08:07 → 4SSUR 10:59 → 1SOBS 07-11 05:42 → 6NMEDSUR 07-11 15:56
PROVIDERS: ADMIT Surgery; ATTEND Surgery
DX: S32.592A Other specified fracture of left pubis, initial encounter for closed fracture (principal); J96.11 Chronic respiratory failure with hypoxia; E87.1 Hypo-osmolality and hyponatremia; F33.9 Major depressive disorder, recurrent, unspecified; J96.12 Chronic respiratory failure with hypercapnia; S42.031A Displaced fracture of lateral end of right clavicle, initial encounter for closed fracture; S32.512A Fracture of superior rim of left pubis, initial encounter for closed fracture; Z20.822 Contact with and (suspected) exposure to COVID-19; J44.9 Chronic obstructive pulmonary disease, unspecified; Z99.81 Dependence on supplemental oxygen; E78.5 Hyperlipidemia, unspecified; F41.1 Generalized anxiety disorder; I11.0 Hypertensive heart disease with heart failure; M81.0 Age-related osteoporosis without current pathological fracture; G47.00 Insomnia, unspecified; I08.3 Combined rheumatic disorders of mitral, aortic and tricuspid valves; G47.33 Obstructive sleep apnea (adult) (pediatric); G89.29 Other chronic pain; I27.20 Pulmonary hypertension, unspecified; J40 Bronchitis, not specified as acute or chronic; M48.00 Spinal stenosis, site unspecified; I50.9 Heart failure, unspecified; J84.10 Pulmonary fibrosis, unspecified; M06.9 Rheumatoid arthritis, unspecified; M15.9 Polyosteoarthritis, unspecified; W06.XXXA Fall from bed, initial encounter; Y92.003 Bedroom of unspecified non-institutional (private) residence as the place of occurrence of the external cause; Z79.02 Long term (current) use of antithrombotics/antiplatelets; Z79.1 Long term (current) use of non-steroidal anti-inflammatories (NSAID); Z79.51 Long term (current) use of inhaled steroids; Z79.899 Other long term (current) drug therapy; Z79.52 Long term (current) use of systemic steroids; Z87.11 Personal history of peptic ulcer disease; Z83.3 Family history of diabetes mellitus; Z87.891 Personal history of nicotine dependence; Z91.81 History of falling; Z88.1 Allergy status to other antibiotic agents; Z87.01 Personal history of pneumonia (recurrent)
CPT/HCPCS: 36415; 70450; 71046; 72125; 73502; 80048; 80053; 83605; 83735; 83880; 84145; 84484; 85025; 85610; 85730; 87635; 93005; 94640; 96374; 96376; 99285

== ENCOUNTER 2021-07-23 16:09 | Inpatient (IN) | payer MEDICARE, OTHER ==
[2021-07-23] MEDS ORDERED: methylPREDNISolone SOD SUCCI 125 MG/2 ML VIAL IV STA (17:05)
[2021-07-23] MEDS ORDERED: IPRATROPIUM-ALBUTEROL 3 ML NEB INHALATION STA (17:05)
[2021-07-23 17:32] LABS: Basophils # (A) 0.1 k/uL (0-0.2); Basophils % (A) 1 %; Eosinophils # (A) 0.3 k/uL (0-0.7); Eosinophils % (A) 2 %; HCT 35.9 % (39.0-53.0); HGB 11.8 gm/dL (13.0-17.5); Lymphocytes # (A) 2.4 k/uL (1.0-4.8); Lymphocytes % (A) 20 %; MCH 30.3 pg (25.0-35.0); MCHC 32.8 g/dL (31.0-37.0); MCV 92.4 fL (80.0-100.0); Mean Platelet Volume 6.9; Monocytes # (A) 0.7 k/uL (0-1.0); Monocytes % (A) 6 %; Neutrophils # (A) 8.5 k/uL (1.3-7.7); Neutrophils % (A) 70 %; Platelet Count 408 k/uL (150-450); RBC 3.89 m/uL (4.30-5.90); RDW 15.6 % (11.5-15.5); WBC 12.1 k/uL (3.8-10.6)
--- NOTE | 2021-07-23 17:42 | XR ---
EXAMINATION TYPE: XR chest 2V DATE OF EXAM: 07/23/2021 COMPARISON: 07/10/2021 HISTORY: Weakness TECHNIQUE: 2 views FINDINGS: There is coarse interstitial infiltrates throughout both lungs. There is some mild blunting of the costophrenic angles. There are no hilar masses. Thoracic aorta is atheromatous. IMPRESSION: Coarse pulmonary infiltrates not significantly different than last exam and could relate to acute and chronic interstitial pneumonia. Heart failure not excluded.
[2021-07-23 17:49] LABS: ALT 22 U/L (4-49); AST 28 U/L (17-59); African American GFR (CKD) >90 (>60 ml/min/1.73 sqM); Albumin 2.8 g/dL (3.5-5.0); Alkaline Phosphatase 109 U/L (38-126); Anion Gap 4 mmol/L; Blood Urea Nitrogen 17 mg/dL (9-20); Calcium 8.2 mg/dL (8.4-10.2); Carbon Dioxide 34 mmol/L (22-30); Chloride 87 mmol/L (98-107); Glucose 104 mg/dL (74-99); Non-African American GFR(CKD) >90 (>60 ml/min/1.73 sqM); Potassium 4.8 mmol/L (3.5-5.1); Sodium 125 mmol/L (137-145); Total Bilirubin 0.4 mg/dL (0.2-1.3); Total Protein 6.1 g/dL (6.3-8.2)
--- NOTE | 2021-07-23 17:51 | CT ---
EXAMINATION TYPE: CT brain wo con DATE OF EXAM: 07/23/2021 COMPARISON: 07/10/2021 HISTORY: ams CT DLP: 1247.4 mGycm Automated exposure control for dose reduction was used. Exam performed without contrast. There is cerebral cortical atrophy. There is no mass effect nor midline shift. There is no evidence o f intracranial hemorrhage. Calvarium is intact. There is some mucosal thickening in the maxillary sin uses. Skull base is intact. There is some mucosal thickening in the mastoid sinuses. IMPRESSION: Cerebral atrophy. There is some mild bilateral mastoiditis. No change compared to old exam.
[2021-07-23 18:07] LABS: Partial Thromboplastin Time 24.6 sec (22.0-30.0); Prothrombin Time 10.4 sec (9.0-12.0)
[2021-07-23] MEDS ORDERED: SODIUM CHLORIDE 0.9% 1,000 ML IV STA (18:34)
[2021-07-23] MEDS ORDERED: AZITHROMYCIN 500 MG in SODIUM CHLORIDE 0.9% 250 ML IVPB STA (18:35)
[2021-07-23 18:42] LABS: Appearance,Urine Clear (Clear); Bilirubin,Urine Negative (Negative); Blood,Urine Negative (Negative); Color,Urine Yellow; Glucose,Urine (UA) Negative (Negative); Ketones,Urine Negative (Negative); Leukocyte Esterase,Urine Negative (Negative); Nitrite,Urine Negative (Negative); PH, Urine 7.5 (5.0-8.0); Protein,Urine Negative (Negative); Specific Gravity,Urine 1.013 (1.001-1.035); Urobilinogen,Urine <2.0 mg/dL (<2.0)
--- NOTE | 2021-07-23 19:12 | CT ---
EXAMINATION TYPE: CT chest angio for PE DATE OF EXAM: 07/23/2021 COMPARISON: 12/06/2020 HISTORY: elevated d-dimer, concern for PE CT DLP: 246.9 mGycm Automated exposure control for dose reduction was used. CONTRAST: Performed with IV Contrast, patient injected with 100 mL of Isovue 370. There are 3-D post processed images. There is extensive coarse infiltrate and atelectasis in both lung brown. Seen in the upper and lower lobes bilaterally. There is normal contrast opacification of the pulmonary arteries. There are no filling defects. Thora cic aorta shows no evidence of aneurysm or dissection. There are a few mediastinal lymph nodes that m easure up to 1 cm. There are no hilar masses. There is thoracic kyphotic deformity with anterior wedging of T7 and T6 vertebra up to 90%. There is 20% wedging of T5 vertebra. IMPRESSION: Advanced pulmonary fibrosis. Chronic pulmonary infiltrates similar to old exam. Pleural thickening at the lung bases consistent with scarring and not significantly different. No evidence of pulmonary embolism. Stable thoracic kyphotic deformity and mid thoracic compression fractures.
[2021-07-23] MEDS ORDERED: ASPIRIN 81 MG PO STA (19:35)
--- NOTE | 2021-07-23 19:38 | ED ---
General Adult HPI - General Chief complaint: Shortness of Breath Stated complaint: Low oxygen Time Seen by Provider: 07/23/21 16:21 Source: patient, EMS, RN notes reviewed, old records reviewed Mode of arrival: EMS Limitations: no limitations - History of Present Illness Initial comments: Patient is a 70-year-old male with past medical history remarkable for COPD, chronic hypoxia on 4 L nasal cannula at home, sleep apnea, recurrent pneumonia who recently fractured his shoulder and hip presents from his rehab facility for worsening shortness of breath and a short episode of altered mental status related today. The shortness of breath has been getting worse over the last 3-4 days. He is actively being treated for pneumonia on azithromycin after course of Levaquin. He states he did not appear to improve and was brought to emergency department for evaluation. Patient presents with family members who saw him earlier today. They did place a pulse ox on his finger and it revealed some hypoxia at the time. Patient also had an episode of confusion and therefore they brought him to emergency department for evaluation. Patient denies any falls. He does endorse some shortness of breath as well as a minimally productive cough. He has no other acute complaints at this time. Patient presents over concern for dyspnea and episode of altered mental status earlier today. - Related Data Home Medications Medication Instructions Recorded Confirmed Metoprolol Succinate [Toprol XL] 25 mg PO DAILY 01/12/20 07/23/21 Sertraline [Zoloft] 150 mg PO DAILY 01/12/20 07/23/21 Amitriptyline HCl [Elavil] 10 mg PO HS 12/06/20 07/23/21 Celecoxib [CeleBREX] 200 mg PO DAILY 12/06/20 07/23/21 Ascorbic Acid [Vitamin C] 1,000 mg PO DAILY 12/10/20 07/23/21 Ipratropium-Albuterol Nebulize 3 ml INHALATION RT-QID 12/10/20 07/23/21 [Duoneb 0.5 mg-3 mg/3 ml Soln] Melatonin 3 mg PO HS PRN 12/10/20 07/23/21 Budesonide [Pulmicort] 0.5 mg INHALATION RT-BID 07/10/21 07/23/21 Fluticasone Nasal [place] [Flonase 2 spr EA NOSTRIL DAILY 07/10/21 07/23/21 Nasal [place]] Acetaminophen [Tylenol] 650 mg PO Q6H PRN 07/23/21 07/23/21 Atorvastatin [Lipitor] 40 mg PO HS 07/23/21 07/23/21 Azithromycin [Zithromax Z-pack (6 See Taper PO DIRECTED 07/23/21 07/23/21 tabs)] Benzonatate [Tessalon Perles] 200 mg PO TID PRN 07/23/21 07/23/21 Calcium Carbonate 1,000 mg PO Q8H PRN 07/23/21 07/23/21 HYDROcodone/APAP 10-325MG [[place] 1 tab PO Q6H PRN 07/23/21 07/23/21 10-325] Multivitamins, Thera [Multivitamin 1 tab PO DAILY 07/23/21 07/23/21 (formulary)] Omeprazole 20 mg PO DAILY 07/23/21 07/23/21 guaiFENesin 400 mg PO Q4H 07/23/21 07/23/21 Previous Rx's Medication Instructions Recorded Clopidogrel [Plavix] 75 mg PO DAILY #14 tab 12/13/20 Furosemide [Lasix] 40 mg PO DAILY #28 tab 07/12/21 Gabapentin [Neurontin] 300 mg PO HS #3 cap 07/12/21 Thiamine [Vitamin B-1] 100 mg PO BID-W/MEALS tab 07/12/21 predniSONE 2.5 mg PO Q48H #0 07/12/21 Allergies Allergy/AdvReac Type Severity Reaction Status Date / Time amoxicillin AdvReac Nausea & Verified 07/23/21 17:12 Vomiting Review of Systems ROS Statement: Those systems with pertinent positive or pertinent negative responses have been documented in the HPI. Review of Systems: CONST: Denies fever EYES: Denies blurry vision ENT: Denies nasal congestion C/V: Denies Chest pain RESP: Endorses shortness of breath, cough. GI: Denies abdominal pain : Denies dysuria SKIN: Denies rash. MSK: Denies joint pain. NEURO: Denies headache ROS Other: All systems not noted in ROS Statement are negative. Past Medical History Past Medical History: Heart Failure, COPD, Hyperlipidemia, Osteoarthritis (OA), Pneumonia, Rheumatoid Arthritis (RA), Sleep Apnea/CPAP/BIPAP Additional Past Medical History / Comment(s): COPD, chronic hypoxic respiratory failure previous history of pneumoperitoneum related to a perforated duodenal ulcer, repair of an umbilical hernia, chronic back pain, back stenosis. History of Any Multi-Drug Resistant Organisms: None Reported Past Surgical History: Orthopedic Surgery Additional Past Surgical History / Comment(s): colonoscopy, repair of a perforated duodenal ulcer and repair of an incarcerated umbilical hernia Past Anesthesia/Blood Transfusion Reactions: No Reported Reaction Past Psychological History: Anxiety, Depression Smoking Status: Former smoker Past Alcohol Use History: Daily Past Drug Use History: None Reported - Past Family History Father Family Medical History: Cancer Additional Family Medical History / Comment(s): Father of leukemia. Mother Family Medical History: Cancer, CVA/TIA, Dementia, Diabetes Mellitus Additional Family Medical History / Comment(s): Mother is 88yrs old with history of dementia and colon cancer. Sister(s) Additional Family Medical History / Comment(s): Patient 3 sons with no major medical problems. General Exam - General Exam Comments Initial Comments: General: Appears in no acute distress. HEAD: Normal with no signs of head trauma. EYES: PERRLA, EOMI, conjunctiva normal, no discharge. ENT: Hearing grossly intact, normal oropharynx. RESPIRATORY: Bilateral end expiratory wheezing without any obvious rhonchi. Not hypoxic on his home 5 L nasal cannula. No increased work of breathing at this time. C/V: Regular rate and rhythm. S1 and S2 auscultated, no edema, peripheral pulses 2+ and intact throughout ABD: Abd is soft, nontender, nondistended EXT: Normal range of motion, no obvious deformity SKIN: No rashes or lesions observed on exposed skin. NEURO: Alert and oriented 4 at this time. No focal sensory strength deficits. NIH is 0. GCS is 15. Limitations: no limitations Course Vital Signs 07/23/21 07/23/21 07/23/21 16:15 18:15 18:31 Temperature 97.9 F Pulse Rate 85 83 82 Respiratory 20 20 Rate Blood Pressure 111/75 109/76 O2 Sat by Pulse 98 92 L Oximetry 07/23/21 18:38 Temperature Pulse Rate 84 Respiratory Rate Blood Pressure O2 Sat by Pulse Oximetry Medical Decision Making - Medical Decision Making Based on the patient's presentation and physical exam, I'm concerned for worsening infectious process for the patient but cannot rule out cardiac etiology at this time either. Like to obtain a CT had as he expressed an episode of altered mental status without any known trauma however this is unknown. We also obtained a d-dimer this patient does not perc out. Well's for PE is low at 1.5. Therefore screening d-dimer will be obtained. Patient will be given 125 mg of Solu-Medrol as well as a breathing treatment and 1 L fluid bolus for his current symptoms. He will be connected to continuous cardiac monitoring and he was restarted on his home nasal cannula oxygen level. He was in agreement with this plan. Patient's EKG shows new isolated T-wave inversions in leads V2 and V3 without any other changes at this time. Chest x-ray reveals coarse pulmonary infiltrates. CT brain revealed no acute intracranial process. There is chronic cerebral atrophy. Laboratory studies are remarkable for an elevated d-dimer of 0.94. Covid swab is negative. Urinalysis unremarkable. Patient's mildly hyponatremic, and 25 and hypochloremic 87. Patient does have a mild leukocytosis of 12.1. Patient is a normocytic anemia with hemoglobin of 11.8 which appears to be his baseline. Troponin is negative. On reevaluation come patient's wheezing was improved. I discussed with him and family the results of his labs and imaging. I would like to obtain a CT PE throughout the possibility of pulmonary embolism and the situation of the elevated d-dimer. There were agreement this plan. CT PE was obtained and revealed no signs of acute pulmonary embolism but it did reveal advanced pulmonary fibrosis, as well as chronic pulmonary infiltrates. There are also old thoracic compression fractures and thoracic kyphotic deformity. Throughout the patient's stay in the emergency department, I did update the patient's family members multiple times and multiple different family members. I spoke with family and patient updated on the results of the CT. I would like to start the patient on IV Rocephin and azithromycin to treat his chronic infiltrates and the case of an acute pneumonia. He'll be continued on breathing treatment. He will be given an aspirin. I would like to admit him to the hospital at this time. He was in agreement this plan. I spoke with the admitting team under Dr. Holbrook who accepted the patient to telemetry bed. I will consult pulmonology, Dr. Santos to evaluate the patient and the morning. Patient will be connected to any behind every 4 hours breathing treatments and every 6 hours steroids. Patient was therefore admitted in serious condition. - Lab Data Result diagrams: 07/23/21 17:15 07/23/21 17:15 Lab Results 07/23/21 07/23/21 07/23/21 Range/Units 17:15 17:15 17:15 WBC 12.1 H (3.8-10.6) k/uL RBC 3.89 L (4.30-5.90) m/uL Hgb 11.8 L (13.0-17.5) gm/dL Hct 35.9 L (39.0-53.0) % MCV 92.4 (80.0-100.0) fL MCH 30.3 (25.0-35.0) pg MCHC 32.8 (31.0-37.0) g/dL RDW 15.6 H (11.5-15.5) % Plt Count 408 (150-450) k/uL MPV 6.9 Neutrophils % 70 % Lymphocytes % 20 % Monocytes % 6 % Eosinophils % 2 % Basophils % 1 % Neutrophils # 8.5 H (1.3-7.7) k/uL Lymphocytes # 2.4 (1.0-4.8) k/uL Monocytes # 0.7 (0-1.0) k/uL Eosinophils # 0.3 (0-0.7) k/uL Basophils # 0.1 (0-0.2) k/uL PT 10.4 (9.0-12.0) sec INR 1.0 (<1.2) APTT 24.6 (22.0-30.0) sec D-Dimer 0.94 H (<0.60) mg/L FEU Sodium 125 L (137-145) mmol/L Potassium 4.8 (3.5-5.1) mmol/L Chloride 87 L (98-107) mmol/L Carbon Dioxide 34 H (22-30) mmol/L Anion Gap 4 mmol/L BUN 17 (9-20) mg/dL Creatinine 0.49 L (0.66-1.25) mg/dL Est GFR (CKD-EPI)AfAm >90 (>60 ml/min/1.73 sqM) Est GFR (CKD-EPI)NonAf >90 (>60 ml/min/1.73 sqM) Glucose 104 H (74-99) mg/dL Plasma Lactic Acid Steven (0.7-2.0) mmol/L Calcium 8.2 L (8.4-10.2) mg/dL Magnesium 2.0 (1.6-2.3) mg/dL Total Bilirubin 0.4 (0.2-1.3) mg/dL AST 28 (17-59) U/L ALT 22 (4-49) U/L Alkaline Phosphatase 109 (38-126) U/L Troponin I (0.000-0.034) ng/mL Total Protein 6.1 L (6.3-8.2) g/dL Albumin 2.8 L (3.5-5.0) g/dL Urine Color Urine Appearance (Clear) Urine pH (5.0-8.0) Ur Specific [place] (1.001-1.035) Urine Protein (Negative) Urine Glucose (UA) (Negative) Urine Ketones (Negative) Urine Blood (Negative) Urine Nitrite (Negative) Urine Bilirubin (Negative) Urine Urobilinogen (<2.0) mg/dL Ur Leukocyte Esterase (Negative) Coronavirus (PCR) (Not Detectd) 07/23/21 07/23/21 07/23/21 Range/Units 17:15 17:15 17:15 WBC (3.8-10.6) k/uL RBC (4.30-5.90) m/uL Hgb (13.0-17.5) gm/dL Hct (39.0-53.0) % MCV (80.0-100.0) fL MCH (25.0-35.0) pg MCHC (31.0-37.0) g/dL RDW (11.5-15.5) % Plt Count (150-450) k/uL MPV Neutrophils % % Lymphocytes % % Monocytes % % Eosinophils % % Basophils % % Neutrophils # (1.3-7.7) k/uL Lymphocytes # (1.0-4.8) k/uL Monocytes # (0-1.0) k/uL Eosinophils # (0-0.7) k/uL Basophils # (0-0.2) k/uL PT (9.0-12.0) sec INR (<1.2) APTT (22.0-30.0) sec D-Dimer (<0.60) mg/L FEU Sodium (137-145) mmol/L Potassium (3.5-5.1) mmol/L Chloride (98-107) mmol/L Carbon Dioxide (22-30) mmol/L Anion Gap mmol/L BUN (9-20) mg/dL Creatinine (0.66-1.25) mg/dL Est GFR (CKD-EPI)AfAm (>60 ml/min/1.73 sqM) Est GFR (CKD-EPI)NonAf (>60 ml/min/1.73 sqM) Glucose (74-99) mg/dL Plasma Lactic Acid Steven 0.8 (0.7-2.0) mmol/L Calcium (8.4-10.2) mg/dL Magnesium (1.6-2.3) mg/dL Total Bilirubin (0.2-1.3) mg/dL AST (17-59) U/L ALT (4-49) U/L Alkaline Phosphatase (38-126) U/L Troponin I <0.012 (0.000-0.034) ng/mL Total Protein (6.3-8.2) g/dL Albumin (3.5-5.0) g/dL Urine Color Urine Appearance (Clear) Urine pH (5.0-8.0) Ur Specific [place] (1.001-1.035) Urine Protein (Negative) Urine Glucose (UA) (Negative) Urine Ketones (Negative) Urine Blood (Negative) Urine Nitrite (Negative) Urine Bilirubin (Negative) Urine Urobilinogen (<2.0) mg/dL Ur Leukocyte Esterase (Negative) Coronavirus (PCR) Not Detected (Not Detectd) 07/23/21 Range/Units 17:59 WBC (3.8-10.6) k/uL RBC (4.30-5.90) m/uL Hgb (13.0-17.5) gm/dL Hct (39.0-53.0) % MCV (80.0-100.0) fL MCH (25.0-35.0) pg MCHC (31.0-37.0) g/dL RDW (11.5-15.5) % Plt Count (150-450) k/uL MPV Neutrophils % % Lymphocytes % % Monocytes % % Eosinophils % % Basophils % % Neutrophils # (1.3-7.7) k/uL Lymphocytes # (1.0-4.8) k/uL Monocytes # (0-1.0) k/uL Eosinophils # (0-0.7) k/uL Basophils # (0-0.2) k/uL PT (9.0-12.0) sec INR (<1.2) APTT (22.0-30.0) sec D-Dimer (<0.60) mg/L FEU Sodium (137-145) mmol/L Potassium (3.5-5.1) mmol/L Chloride (98-107) mmol/L Carbon Dioxide (22-30) mmol/L Anion Gap mmol/L BUN (9-20) mg/dL Creatinine (0.66-1.25) mg/dL Est GFR (CKD-EPI)AfAm (>60 ml/min/1.73 sqM) Est GFR (CKD-EPI)NonAf (>60 ml/min/1.73 sqM) Glucose (74-99) mg/dL Plasma Lactic Acid Steven (0.7-2.0) mmol/L Calcium (8.4-10.2) mg/dL Magnesium (1.6-2.3) mg/dL Total Bilirubin (0.2-1.3) mg/dL AST (17-59) U/L ALT (4-49) U/L Alkaline Phosphatase (38-126) U/L Troponin I (0.000-0.034) ng/mL Total Protein (6.3-8.2) g/dL Albumin (3.5-5.0) g/dL Urine Color Yellow Urine Appearance Clear (Clear) Urine pH 7.5 (5.0-8.0) Ur Specific [place] 1.013 (1.001-1.035) Urine Protein Negative (Negative) Urine Glucose (UA) Negative (Negative) Urine Ketones Negative (Negative) Urine Blood Negative (Negative) Urine Nitrite Negative (Negative) Urine Bilirubin Negative (Negative) Urine Urobilinogen <2.0 (<2.0) mg/dL Ur Leukocyte Esterase Negative (Negative) Coronavirus (PCR) (Not Detectd) - EKG Data -: EKG Interpreted by Me EKG Comments: 12-lead Electrocardiogram Interpretation Note EKG was reviewed and interpreted by myself. 12-lead ECG performed at 1744 is interpreted by me as revealing normal sinus rhythm at a rate of 85 beats per minute. Gates deviation. CA interval is 130 ms, QRS duration is 84 ms, QTc is 497 ms.. Patient does have mild T-wave inversions in lead V2 and V3 without presurgical changes or ST segment changes.. R wave progression across the precordium was satisfactory. By my interpretation, this EKG shows mild T-wave inversions in V2 and V3 which could represent ischemia. These were not present on prior EKG obtained earlier this month.. Critical Care Time Critical Care Time: Yes Total Critical Care Time: 30 Critical Care Time: Upon my evaluation, this patient had a high probability of imminent or life- threatening deterioration due to chronic hypoxic respiratory failure, elevated d-dimer, pneumonia, which required my direct attention, intervention, and personal management. I have personally provided 30 minutes of critical care time exclusive of time spent on separately billable procedures. Time includes review of laboratory data, radiology results, discussion with consultants, and monitoring for potential decompensation. Interventions were performed as documented in my note. Disposition Clinical Impression: Pneumonia, Pulmonary fibrosis, COPD exacerbation, Chronic respiratory failure with hypoxia, Hyponatremia, Elevated d-dimer Disposition: ADMITTED IP TO THIS HOSP Condition: Serious Referrals: Razia Holbrook MD [Primary Care Provider] - 1-2 days
[2021-07-23] MEDS ORDERED: NALOXONE 0.4 MG/ML 1 ML VIAL IV PRN (19:41)
[2021-07-23] MEDS ORDERED: ONDANSETRON 4 MG/2 ML VIAL IVP PRN (19:41)
[2021-07-23] MEDS: IPRATROPIUM-ALBUTEROL 3 ML NEB INHALATION SCH ×2 (22:46→23:13)
[2021-07-23] MEDS: ALPRAZolam 0.5 MG TAB PO PRN (22:50)
[2021-07-24] MEDS: HEPARIN SODIUM,PORCINE/PF 5,000 UNIT/0.5 ML SYRINGE SQ SCH ×3 (01:06→16:08)
[2021-07-24] MEDS: methylPREDNISolone SOD SUCCI 40 MG/ML 1 ML VIAL IV SCH ×4 (01:06→17:09)
[2021-07-24] MEDS: IPRATROPIUM-ALBUTEROL 3 ML NEB INHALATION SCH ×5 (03:37→19:46)
[2021-07-24] MEDS ORDERED: CALCIUM CARBONATE 500 MG CHEWABLE PO PRN (09:41)
[2021-07-24] MEDS ORDERED: MELATONIN 3 MG TABLET PO PRN (09:41)
[2021-07-24] MEDS ORDERED: BENZONATATE 100 MG CAP PO PRN (09:41)
[2021-07-24] MEDS ORDERED: ACETAMINOPHEN TAB 325 MG TAB PO PRN (09:41)
--- NOTE | 2021-07-24 10:13 | P.CNPUL ---
History of Present Illness Consult date: 07/24/21 Requesting physician: Razia Holbrook Reason for consult: dyspnea, COPD, hypoxemia, pneumonia, abnormal CXR/CT Chief complaint: Respiratory failure. History of present illness: Pulmonary consult dated 07/24/2021. 70-year-old male, well-known to me, with history of chronic hypoxemic respiratory failure, on home O2 at 4 L, secondary to both COPD, and pulmonary fibrosis, who presents to the emergency department, with complaints of increasing shortness of breath. The patient hasn't been feeling well for at least 3 or 4 days prior to admission, and may be even a week or so. The patient complains of cough, and phlegm production. He denies any fever or chills. He denies any chest pain. The patient was brought to the emergency room by EMS. Currently, the patient is on 14 L high flow nasal cannula, and not receiving any IV fluids. We saw him in the emergency room, room 23. His coronavirus testing was negative. He has been fully vaccinated. The patient states that he's feeling only a bit better since she's been here in the emergency department. He did have some mild conversational dyspnea, but no audible wheezing. There was no use of accessory muscles. CT revealed no evidence of pulmonary embolism. There was advanced pulmonary fibrosis. Chest x-ray was also reviewed. White count 12.1, hemoglobin 11.8, hematocrit 35.9, platelet count 408,000. PT INR and PTT were normal. D-dimer was 0.94. Sodium 125, potassium 4.8, chlorides 87, CO2 34, anion gap 4, BUN 17, and creatinine 0.49. Albumin was 2.8. Troponins were normal. N-terminal proBNP was 3950. Urine was negative. Review of Systems REVIEW OF SYSTEMS: CONSTITUTIONAL: [Negative.] NEUROLOGIC: [ Negative.] HEENT: [ Negative.] CARDIAC: [Negative.] PULMONARY: Shortness of breath, cough, occasional phlegm production and chest congestion. GI: [Negative.] : [Negative.] RHEUMATOLOGIC: [ Negative.] IMMUNOLOGIC: [ Negative.] ENDOCRINE: [Negative. ] DERMATOLOGIC: [Negative.] Past Medical History Past Medical History: Heart Failure, COPD, Hyperlipidemia, Osteoarthritis (OA), Pneumonia, Rheumatoid Arthritis (RA), Sleep Apnea/CPAP/BIPAP Additional Past Medical History / Comment(s): COPD, chronic hypoxic respiratory failure previous history of pneumoperitoneum related to a perforated duodenal ulcer, repair of an umbilical hernia, chronic back pain, back stenosis. History of Any Multi-Drug Resistant Organisms: None Reported Past Surgical History: Orthopedic Surgery Additional Past Surgical History / Comment(s): colonoscopy, repair of a perforated duodenal ulcer and repair of an incarcerated umbilical hernia Past Anesthesia/Blood Transfusion Reactions: No Reported Reaction Past Psychological History: Anxiety, Depression Smoking Status: Former smoker Past Alcohol Use History: Daily Past Drug Use History: None Reported - Past Family History Father Family Medical History: Cancer Additional Family Medical History / Comment(s): Father of leukemia. Mother Family Medical History: Cancer, CVA/TIA, Dementia, Diabetes Mellitus Additional Family Medical History / Comment(s): Mother is 88yrs old with history of dementia and colon cancer. Sister(s) Additional Family Medical History / Comment(s): Patient 3 sons with no major medical problems. Medications and Allergies Home Medications Medication Instructions Recorded Confirmed Type Metoprolol Succinate [Toprol XL] 25 mg PO DAILY 01/12/20 07/23/21 History Sertraline [Zoloft] 150 mg PO DAILY 01/12/20 07/23/21 History Amitriptyline HCl [Elavil] 10 mg PO HS 12/06/20 07/23/21 History Celecoxib [CeleBREX] 200 mg PO DAILY 12/06/20 07/23/21 History Ascorbic Acid [Vitamin C] 1,000 mg PO DAILY 12/10/20 07/23/21 History Ipratropium-Albuterol Nebulize 3 ml INHALATION RT-QID 12/10/20 07/23/21 History [Duoneb 0.5 mg-3 mg/3 ml Soln] Melatonin 3 mg PO HS PRN 12/10/20 07/23/21 History Clopidogrel [Plavix] 75 mg PO DAILY #14 tab 12/13/20 07/23/21 Rx Budesonide [Pulmicort] 0.5 mg INHALATION RT-BID 07/10/21 07/23/21 History Fluticasone Nasal [place] [Flonase 2 spr EA NOSTRIL DAILY 07/10/21 07/23/21 History Nasal [place]] Furosemide [Lasix] 40 mg PO DAILY #28 tab 07/12/21 07/23/21 Rx Gabapentin [Neurontin] 300 mg PO HS #3 cap 07/12/21 07/23/21 Rx Thiamine [Vitamin B-1] 100 mg PO BID-W/MEALS tab 07/12/21 07/23/21 Rx predniSONE 2.5 mg PO Q48H #0 07/12/21 07/23/21 Rx Acetaminophen [Tylenol] 650 mg PO Q6H PRN 07/23/21 07/23/21 History Atorvastatin [Lipitor] 40 mg PO HS 07/23/21 07/23/21 History Azithromycin [Zithromax Z-pack (6 See Taper PO DIRECTED 07/23/21 07/23/21 History tabs)] Benzonatate [Tessalon Perles] 200 mg PO TID PRN 07/23/21 07/23/21 History Calcium Carbonate 1,000 mg PO Q8H PRN 07/23/21 07/23/21 History HYDROcodone/APAP 10-325MG [[place] 1 tab PO Q6H PRN 07/23/21 07/23/21 History 10-325] Multivitamins, Thera [Multivitamin 1 tab PO DAILY 07/23/21 07/23/21 History (formulary)] Omeprazole 20 mg PO DAILY 07/23/21 07/23/21 History guaiFENesin 400 mg PO Q4H 07/23/21 07/23/21 History Allergies Allergy/AdvReac Type Severity Reaction Status Date / Time amoxicillin AdvReac Nausea & Verified 07/23/21 17:12 Vomiting Physical Exam Osteopathic Statement: *. No significant issues noted on an osteopathic structural exam other than those noted in the History and Physical/Consult. Vitals: Vital Signs Temp Pulse Resp BP Pulse Ox 07/24/21 07:46 91 22 96/68 93 L 07/24/21 06:14 92 24 102/64 99 07/24/21 05:37 86 24 95 07/24/21 04:00 98.5 F 83 24 104/64 95 07/24/21 03:47 99 07/24/21 03:37 95 07/24/21 03:00 90 22 96/70 95 07/24/21 02:00 87 22 92/61 97 07/24/21 01:00 81 24 102/78 94 L 07/24/21 00:00 87 28 H 104/76 97 07/23/21 23:30 28 H 07/23/21 23:28 102 H 18 115/81 93 L 07/23/21 23:26 99 07/23/21 23:14 101 H 07/23/21 21:00 100 18 100/57 96 07/23/21 18:38 84 07/23/21 18:31 82 07/23/21 18:15 83 20 109/76 92 L 07/23/21 16:15 97.9 F 85 20 111/75 98 Intake and Output 07/23/21 07/24/21 07/24/21 22:59 06:59 14:59 Other: Weight 63.503 kg No acute distress, oriented 3, mild conversational dyspnea. No audible wheez ing. HEENT examination is grossly unremarkable. Neck supple. Full range of motion. No adenopathy thyromegaly or neck vein distention. Cardiovascular examination reveals regular rhythm rate. S1-S2 normal. No S3 or S4. No discernible murmur noted. Heart sounds are distant. Heart rate 91 bpm. Lungs reveal coarse bilateral expiratory rhonchi and wheezes. Bibasilar crackles are also noted. Breath sounds are equal bilaterally. The patient does have severe kyphosis. Abdomen soft bowel sounds are heard. No masses or tenderness. Extremities are intact. No cyanosis clubbing or edema. Skin is without rash or lesion. Neurologic examination is brief but nonfocal. Results - Laboratory Findings CBC and BMP: 07/23/21 17:15 07/23/21 17:15 PT/INR, D-dimer PT 10.4 sec (9.0-12.0) 07/23/21 17:15 INR 1.0 (<1.2) 07/23/21 17:15 D-Dimer 0.94 mg/L FEU (<0.60) H 07/23/21 17:15 Abnormal lab findings: Abnormal Labs 07/23/21 07/23/21 07/23/21 17:15 17:15 17:15 WBC 12.1 H RBC 3.89 L Hgb 11.8 L Hct 35.9 L RDW 15.6 H Neutrophils # 8.5 H D-Dimer 0.94 H Sodium 125 L Chloride 87 L Carbon Dioxide 34 H Creatinine 0.49 L Glucose 104 H Calcium 8.2 L Total Protein 6.1 L Albumin 2.8 L - Diagnostic Findings Chest x-ray: image reviewed CT scan - chest: image reviewed Assessment and Plan Assessment: Acute hypoxemic respiratory failure secondary to COPD exacerbation, and pulmonary fibrosis, and possible rheumatoid arthritis associated interstitial lung disease. History of CHF. History of rheumatoid arthritis. History of hyperlipidemia. History of osteoarthritis. History of sleep apnea syndrome, currently on CPAP. Prior history of perforated duodenal ulcer. Chronic back pain. Prior history of heavy tobacco use. History of anxiety/depression. Plan: Plan dated 07/24/2021. The patient is admitted with a diagnosis of acute hypoxemic respiratory failure. The patient is well-known to [place]. The computed tomography scan did not reveal any evidence of PE, but did show emphysematous changes, and diffuse interstitial lung disease/pulmonary fibrosis. We will check an N-terminal proBNP level, as well as a pro-calcitonin level. Overall prognosis remains guarded. The patient is on Levaquin. Additional recommendations and suggestions are forthcoming. Prognosis is guarded. The patient's budesonide is increased to 1 mg, and formoterol is added. Time with Patient: Greater than 30
[2021-07-24] MEDS ORDERED: LEVOFLOXACIN 500MG-D5W PMX 500 MG in DEXTROSE/WATER 1 100ML.BAG IVPB SCH (11:00)
[2021-07-24] MEDS ORDERED: IPRATROPIUM-ALBUTEROL 3 ML NEB INHALATION SCH (12:00)
[2021-07-24] MEDS: HYDROcodone/APAP 10-325MG 1 EACH TAB PO PRN ×2 (13:38→20:29)
--- NOTE | 2021-07-24 14:44 | P.HPIM ---
History of Present Illness H&P Date: 07/24/21 HISTORY OF PRESENT ILLNESS This is a 70-year-old male patient of Dr. Holbrook and Dr. Mireles with past medical history of advanced steroid-dependent COPD, hyperlipidemia, rheumatoid arthritis, obstructive sleep apnea unable to tolerate CPAP, chronic hypoxic respiratory failure on home O2 at 4 L nasal cannula, generalized osteoarthritis, chronic back pain pseudomonas in sputum on previous admission secondary to colonization or pseudomonal pneumonia. Known FVC of 72% and FEV1 of 46%. History of perforated duodenal ulcer status post exploratory laparotomy with repair of perforated duodenal ulcer and repair of incarcerated umbilical hernia. Patient had a recent hospitalization for superior and inferior left pubic ramus fracture and right clavicle fracture. Echocardiogram on 12/07/2020 reveals EF of 55-60% with mild concentric left ventricular hypertrophy, trace aortic regurgitation, mild mitral regurgitation, mild tricuspid regurgitation, moderate pulmonary hypertension. Patient states he has had difficulty breathing for the past week. He had contacted Dr. Montoya's office and a prescription for Z-Mathew was called to his pharmacy. Patient denies any recent falls. He has been utilizing a walker for ambulation. He states he is a little constipated. No nausea or vomiting. He denies any fever or chills. Patient came into [facility] emergency center for evaluation. Patient was afebrile, heart rate 85, blood pressure 111/75, pulse ox 90% on 4 L nasal cannula. WBC 12.1, hemoglobin 11.8, platelet count 408. Sodium 125, potassium 4.8, ch loride 87, CO2 34, BUN 17 creatinine 0.49. Troponin is negative on 3 draws. ProBNP 3950. Pro-calcitonin 0.09. Urinalysis negative for infection. Chronic virus PCR not detected. Chest x-ray reveals coarse pulmonary infiltrates not significantly different from last exam and could relate to acute on chronic interstitial pneumonia. Heart failure not excluded. CAT scan of the brain shows cerebral atrophy. Small mild bilateral mastoiditis. No change compared to previous exam. CT of the chest angiogram revealed advanced pulmonary fibrosis. Chronic pulmonary infiltrates similar to EXAM. Pleural thickening at the lung bases consistent with scarring and not significantly different. No evidence pulmonary embolism. Stable thoracic kyphotic deformity and mid thoracic compression fractures. Patient is seen today in the emergency center waiting for a bed on the [facility] floor, consult in place with pulmonary medicine, patient started on Levaquin, IV steroids. REVIEW OF SYSTEMS Constitutional: No fever, no chills, no night sweats. No weight change. No weakness, fatigue or lethargy. No daytime sleepiness. EENT: No headache. No blurred vision or double vision, no loss of vision. No loss of Hearing, no ringing in the ears, no dizziness. No nasal drainage or congestion. No epistaxis. No sore throat. Lungs: Reports shortness of breath, Reports cough, Reports sputum production. No wheezing. Cardiovascular: No chest pain, no lower extremity edema. No palpitations. No paroxysmal nocturnal dyspnea. No orthopnea. No lightheadedness or dizziness. No syncopal episodes. Abdominal: No abdominal pain. No nausea, vomiting. No diarrhea. No constipat ion. No bloody or tarry stools.. No loss of appetite. Genitourinary: No dysuria, increased frequency, urgency. No urinary retention. Musculoskeletal: No myalgias. No muscle weakness, no gait dysfunction, no frequent falls. No back pain. No neck pain. Integumentary: No wounds, no lesions. No rash or pruritus. No unusual bruising. No change in hair or nails. Neurologic: No aphasia. No facial droop. No change in mentation. No head injury. No headache. No paralysis. No paresthesia. Psychiatric: No depression. No anxiety. No mood swings. Endocrine: No abnormal blood sugars. No weight change. SOCIAL HISTORY Patient smoked 2 packs per day for 40+ years. He quit 7 years ago. He denies any illicit drug use or marijuana use. He drinks 2 beers per day. 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 patient is has adult children wo are involved. FAMILY HISTORY Father of leukemia. Mother is 89 yrs old with history of dementia and colon cancer. Patient has 1 full sister with history of lung cancer. Patient has one half-sister with adrenal problems. Patient does not have any brothers. Patient 3 sons with no major medical problems. PHYSICAL EXAMINATION Gen: This is 70-year-old male. Patient is resting on ER stretcher appears to be comfortable and in no acute distress. HEENT: Head is atraumatic, normocephalic. Pupils equal, round. Sclerae is anicteric. NECK: Supple. No JVD. No lymphadenopathy. No thyromegaly. LUNGS: Coarse crackles bilaterally. No intercostal retractions. HEART: Regular rate and rhythm. Systolic murmur. ABDOMEN: Soft. Bowel sounds are present. No masses. No tenderness. Large ventral hernia, soft. EXTREMITIES: No pedal edema. No calf tenderness. Dorsalis pedis palpable bilaterally. NEUROLOGICAL: Patient is awake, alert and oriented x3. Cranial nerves 2 through 12 are grossly intact. ASSESSMENT AND PLAN 1. Acute hypoxic respiratory failure secondary to COPD exacerbation with underlying pulmonary fibrosis, possible rheumatoid arthritis associated i nterstitial lung disease. Continue DuoNeb treatments every 4 hours, Tessalon Perles 200 mg 3 times daily as needed, Pulmicort 1 mg twice daily, Perforomist 20 g twice daily, Mucinex 1200 mg twice daily, Levaquin 500 milligrams daily, same Medrol 14 g IV every 6 hours. 2. Recent hospitalization for possible Right clavicular fracture and fracture of the superior and inferior left pubic ramus, pathologic, stable, no recent falls. 3. Possible tracheobronchitis. Patient is started on Levaquin, mucinex 1200 mg twice daily, Tessalon Perles 200 mg 3 times daily as needed. 4. Chronic hypoxic respiratory failure. Continue oxygen therapy. 5. Advanced COPD with pulmonary fibrosis, steroid dependent and chronic hypoxic and hypercapnic respiratory failure on home O2 at 4 L. continue oxygen therapy. 6. Moderate pulmonary hypertension. 7. Hypertension. Continue Toprol-XL 25 mg daily. 8. Rheumatoid arthritis, stable. 9. Hyperlipidemia. Continue atorvastatin 40 mg at bedtime. 10. Obstructive sleep apnea unable to tolerate CPAP. 11. Chronic back pain and generalized osteoarthritis. Continue Tarzana as needed, gabapentin 300 mg at bedtime 12. History of perforated duodenal ulcer status post exploratory laparotomy with repair of perforated duodenal ulcer and repair of incarcerated umbilical hernia. 13. Generalized anxiety disorder and recurrent depression. Continue Zoloft 150 mg daily, Elavil 10 mg at bedtime. 14. DVT prophylaxis. Heparin subcu. 15. GI prophylaxis. Continue Protonix daily. 16. Insomnia. Continue Elavil 10 mg at bedtime. Patient will be admitted to the hospital for a minimum of 2 night stay. DISCHARGE PLAN Most likely subacute rehab. Consult PT and OT. Impression and plan of care have been directed as dictated by the signing physician. [place]ia Salinas nurse practitioner acting as scribe for signing phys ician. Past Medical History Past Medical History: Heart Failure, COPD, Hyperlipidemia, Osteoarthritis (OA), Pneumonia, Rheumatoid Arthritis (RA), Sleep Apnea/CPAP/BIPAP Additional Past Medical History / Comment(s): COPD, chronic hypoxic respiratory failure previous history of pneumoperitoneum related to a perforated duodenal ulcer, repair of an umbilical hernia, chronic back pain, back stenosis. History of Any Multi-Drug Resistant Organisms: None Reported Past Surgical History: Orthopedic Surgery Additional Past Surgical History / Comment(s): colonoscopy, repair of a perforated duodenal ulcer and repair of an incarcerated umbilical hernia Past Anesthesia/Blood Transfusion Reactions: No Reported Reaction Past Psychological History: Anxiety, Depression Smoking Status: Former smoker Past Alcohol Use History: Daily Past Drug Use History: None Reported - Past Family History Father Family Medical History: Cancer Additional Family Medical History / Comment(s): Father of leukemia. Mother Family Medical History: Cancer, CVA/TIA, Dementia, Diabetes Mellitus Additional Family Medical History / Comment(s): Mother is 88yrs old with history of dementia and colon cancer. Sister(s) Additional Family Medical History / Comment(s): Patient 3 sons with no major medical problems. Medications and Allergies Home Medications Medication Instructions Recorded Confirmed Type Metoprolol Succinate [Toprol XL] 25 mg PO DAILY 01/12/20 07/23/21 History Sertraline [Zoloft] 150 mg PO DAILY 01/12/20 07/23/21 History Amitriptyline HCl [Elavil] 10 mg PO HS 12/06/20 07/23/21 History Celecoxib [CeleBREX] 200 mg PO DAILY 12/06/20 07/23/21 History Ascorbic Acid [Vitamin C] 1,000 mg PO DAILY 12/10/20 07/23/21 History Ipratropium-Albuterol Nebulize 3 ml INHALATION RT-QID 12/10/20 07/23/21 History [Duoneb 0.5 mg-3 mg/3 ml Soln] Melatonin 3 mg PO HS PRN 12/10/20 07/23/21 History Clopidogrel [Plavix] 75 mg PO DAILY #14 tab 12/13/20 07/23/21 Rx Budesonide [Pulmicort] 0.5 mg INHALATION RT-BID 07/10/21 07/23/21 History Fluticasone Nasal [place] [Flonase 2 spr EA NOSTRIL DAILY 07/10/21 07/23/21 History Nasal [place]] Furosemide [Lasix] 40 mg PO DAILY #28 tab 07/12/21 07/23/21 Rx Gabapentin [Neurontin] 300 mg PO HS #3 cap 07/12/21 07/23/21 Rx Thiamine [Vitamin B-1] 100 mg PO BID-W/MEALS tab 07/12/21 07/23/21 Rx predniSONE 2.5 mg PO Q48H #0 07/12/21 07/23/21 Rx Acetaminophen [Tylenol] 650 mg PO Q6H PRN 07/23/21 07/23/21 History Atorvastatin [Lipitor] 40 mg PO HS 07/23/21 07/23/21 History Azithromycin [Zithromax Z-pack (6 See Taper PO DIRECTED 07/23/21 07/23/21 History tabs)] Benzonatate [Tessalon Perles] 200 mg PO TID PRN 07/23/21 07/23/21 History Calcium Carbonate 1,000 mg PO Q8H PRN 07/23/21 07/23/21 History HYDROcodone/APAP 10-325MG [[place] 1 tab PO Q6H PRN 07/23/21 07/23/21 History 10-325] Multivitamins, Thera [Multivitamin 1 tab PO DAILY 07/23/21 07/23/21 History (formulary)] Omeprazole 20 mg PO DAILY 07/23/21 07/23/21 History guaiFENesin 400 mg PO Q4H 07/23/21 07/23/21 History Allergies Allergy/AdvReac Type Severity Reaction Status Date / Time amoxicillin AdvReac Nausea & Verified 07/23/21 17:12 Vomiting Physical Exam Vitals: Vital Signs Temp Pulse Resp BP Pulse Ox 07/24/21 07:46 91 22 96/68 93 L 07/24/21 06:14 92 24 102/64 99 07/24/21 05:37 86 24 95 07/24/21 04:00 98.5 F 83 24 104/64 95 07/24/21 03:47 99 07/24/21 03:37 95 07/24/21 03:00 90 22 96/70 95 07/24/21 02:00 87 22 92/61 97 07/24/21 01:00 81 24 102/78 94 L 07/24/21 00:00 87 28 H 104/76 97 07/23/21 23:30 28 H 07/23/21 23:28 102 H 18 115/81 93 L 07/23/21 23:26 99 07/23/21 23:14 101 H 07/23/21 21:00 100 18 100/57 96 07/23/21 18:38 84 07/23/21 18:31 82 07/23/21 18:15 83 20 109/76 92 L 07/23/21 16:15 97.9 F 85 20 111/75 98 Intake and Output 07/23/21 07/24/21 07/24/21 22:59 06:59 14:59 Other: Weight 63.503 kg Results CBC & Chem 7: 07/23/21 17:15 07/23/21 17:15 Labs: Abnormal Lab Results - Last 24 Hours (Table) 07/23/21 07/23/21 07/23/21 Range/Units 17:15 17:15 17:15 WBC 12.1 H (3.8-10.6) k/uL RBC 3.89 L (4.30-5.90) m/uL Hgb 11.8 L (13.0-17.5) gm/dL Hct 35.9 L (39.0-53.0) % RDW 15.6 H (11.5-15.5) % Neutrophils # 8.5 H (1.3-7.7) k/uL D-Dimer 0.94 H (<0.60) mg/L FEU Sodium 125 L (137-145) mmol/L Chloride 87 L (98-107) mmol/L Carbon Dioxide 34 H (22-30) mmol/L Creatinine 0.49 L (0.66-1.25) mg/dL Glucose 104 H (74-99) mg/dL Calcium 8.2 L (8.4-10.2) mg/dL Total Protein 6.1 L (6.3-8.2) g/dL Albumin 2.8 L (3.5-5.0) g/dL
[2021-07-24] MEDS: ALPRAZolam 0.5 MG TAB PO PRN (16:08)
[2021-07-24] MEDS: THIAMINE 100 MG TAB PO SCH (16:08)
[2021-07-24] MEDS: BUDESONIDE 1 MG/2 ML NEBU INHALATION SCH (19:46)
[2021-07-24] MEDS: FORMOTEROL FUMARATE 20 MCG/2 ML NEBU INHALATION SCH (19:46)
[2021-07-24] MEDS ORDERED: BUDESONIDE 0.5 MG/2 ML NEBU INHALATION SCH (20:00)
[2021-07-24] MEDS: guaiFENesin 600 MG TABLET.ER PO SCH (20:29)
[2021-07-24] MEDS: ATORVASTATIN 40 MG TAB PO SCH (20:29)
[2021-07-24] MEDS ORDERED: AZITHROMYCIN 500 MG in SODIUM CHLORIDE 0.9% 250 ML IVPB SCH (21:00)
[2021-07-24] MEDS: AMITRIPTYLINE HCL 10 MG TAB PO SCH (21:22)
[2021-07-24] MEDS: GABAPENTIN 300 MG CAP PO SCH (21:22)
[2021-07-25] MEDS: IPRATROPIUM-ALBUTEROL 3 ML NEB INHALATION SCH ×6 (00:05→21:10)
[2021-07-25] MEDS: methylPREDNISolone SOD SUCCI 40 MG/ML 1 ML VIAL IV SCH ×4 (00:27→17:31)
[2021-07-25] MEDS: HEPARIN SODIUM,PORCINE/PF 5,000 UNIT/0.5 ML SYRINGE SQ SCH ×3 (00:27→17:10)
[2021-07-25] MEDS: HYDROcodone/APAP 10-325MG 1 EACH TAB PO PRN (01:49)
[2021-07-25] MEDS ORDERED: FUROSEMIDE 40 MG TAB PO SCH (09:00)
[2021-07-25] MEDS: guaiFENesin 600 MG TABLET.ER PO SCH ×2 (09:06→20:30)
[2021-07-25] MEDS: MULTIVITAMINS, THERA 1 EACH TAB PO SCH (09:06)
[2021-07-25] MEDS: METOPROLOL SUCCINATE (ER) 25 MG TAB.ER.24H PO SCH (09:06)
[2021-07-25] MEDS: CLOPIDOGREL 75 MG TAB PO SCH (09:07)
[2021-07-25] MEDS: ASCORBIC ACID 500 MG TAB PO SCH (09:07)
[2021-07-25] MEDS: PANTOPRAZOLE 40 MG TABLET PO SCH (09:07)
[2021-07-25] MEDS: MELOXICAM 7.5 MG TAB PO SCH (09:07)
[2021-07-25] MEDS: THIAMINE 100 MG TAB PO SCH ×2 (09:07→17:31)
[2021-07-25] MEDS: SERTRALINE 50 MG TAB PO SCH (09:09)
[2021-07-25] MEDS: FLUTICASONE 50MCG/SPRAY NASAL 16GM EA NOSTRIL SCH (09:11)
[2021-07-25] MEDS: FORMOTEROL FUMARATE 20 MCG/2 ML NEBU INHALATION SCH ×2 (09:25→21:10)
[2021-07-25] MEDS: BUDESONIDE 1 MG/2 ML NEBU INHALATION SCH ×2 (09:25→21:09)
[2021-07-25] MEDS: FUROSEMIDE 10 MG/ML 4 ML VIAL IV SCH (10:41)
--- NOTE | 2021-07-25 11:02 | P.PN ---
Subjective Progress Note Date: 07/25/21 Principal diagnosis: Shortness of breath. Pulmonary consult dated 07/24/2021. 70-year-old male, well-known to me, with history of chronic hypoxemic respiratory failure, on home O2 at 4 L, secondary to both COPD, and pulmonary fibrosis, who presents to the emergency department, with complaints of increasing shortness of breath. The patient hasn't been feeling well for at least 3 or 4 days prior to admission, and may be even a week or so. The patient complains of cough, and phlegm production. He denies any fever or chills. He denies any chest pain. The patient was brought to the emergency room by EMS. Currently, the patient is on 14 L high flow nasal cannula, and not receiving any IV fluids. We saw him in the emergency room, room 23. His coronavirus testing was negative. He has been fully vaccinated. The patient states that he's feeling only a bit better since she's been here in the emergency department. He did have some mild conversational dyspnea, but no audible wheezing. There was no use of accessory muscles. CT revealed no evidence of pulmonary embolism. There was advanced pulmonary fibrosis. Chest x-ray was also reviewed. White count 12.1, hemoglobin 11.8, hematocrit 35.9, platelet count 408,000. PT INR and PTT were normal. D-dimer was 0.94. Sodium 125, potassium 4.8, chlorides 87, CO2 34, anion gap 4, BUN 17, and creatinine 0.49. Albumin was 2.8. Troponins were normal. N-terminal proBNP was 3950. Urine was negative. Progress note dated 07/25/2021. 70-year-old male, who presented to the emergency department, with complaints of shortness of breath. The patient has a history of COPD, and pulmonary fibrosis. He also has a history of chronic hypoxemic respiratory failure, uses home O2, at 4 L/m, 25/03. The patient is feeling better today. He's been weaned down from 14 L high flow oxygen, to 9 L high flow. He still quite short of breath. He also admits to chest congestion, coughing, and wheezing. No new labs today t o report. No chest x-ray to report as well. Current pulmonary medications include Pulmicort, formoterol, Solu-Medrol, and DuoNeb. Antibiotics were discontinued because the patient's pro-calcitonin level was normal. Objective - Vital Signs Vital signs: Vital Signs Temp 98.8 F 07/25/21 08:00 Pulse 99 07/25/21 09:55 Resp 16 07/25/21 08:00 BP 124/68 07/25/21 08:00 Pulse Ox 96 07/25/21 08:00 Intake & Output 07/24/21 07/25/21 07/25/21 18:59 06:59 18:59 Intake Total 100 1400 Output Total 750 Balance 100 650 Weight 63.503 kg Intake: Intake, IV Titration 100 100 Amount Azithromycin 500 mg In 100 Sodium Chloride 0.9% 250 ml @ 250 mls/hr IVPB HS [facility] Rx#:[id number] Levofloxacin 500Mg-D5w 100 Pmx 500 mg In Dextrose/ Water 1 100ml.bag @ 100 mls/hr IVPB Q24H [facility] Rx#: [id number] Oral 1300 Output: Urine 750 Other: Voiding Method Toilet Urinal - Exam No acute distress, oriented 3, mild conversational dyspnea. No audible wheezing. Seems less short of breath today. HEENT examination is grossly unremarkable. Neck supple. Full range of motion. No adenopathy thyromegaly or neck vein distention. Cardiovascular examination reveals regular rhythm rate. S1-S2 normal. No S3 or S4. No discernible murmur noted. Heart sounds are distant. Heart rate 99 bpm. Lungs reveal coarse bilateral expiratory rhonchi and wheezes. Bibasilar crackles are also noted. Breath sounds are equal bilaterally. The patient does have severe kyphosis. Abdomen soft bowel sounds are heard. No masses or tenderness. Extremities are intact. No cyanosis clubbing or edema. Skin is without rash or lesion. Neurologic examination is brief but nonfocal. - Labs CBC & Chem 7: 07/23/21 17:15 07/23/21 17:15 Assessment and Plan Assessment: Acute hypoxemic respiratory failure secondary to COPD exacerbation, and pulmonary fibrosis, and possible rheumatoid arthritis associated interstitial lung disease. History of CHF. History of rheumatoid arthritis. History of hyperlipidemia. History of osteoarthritis. History of sleep apnea syndrome, currently on CPAP. Prior history of perforated duodenal ulcer. Chronic back pain. Prior history of heavy tobacco use. History of anxiety/depression. Plan: Plan dated 07/24/2021. The patient is admitted with a diagnosis of acute hypoxemic respiratory failure. The patient is well-known to me. The computed tomography scan did not reveal any evidence of PE, but did show emphysematous changes, and diffuse interstitial lung disease/pulmonary fibrosis. We will check an N-terminal proBNP level, as well as a pro-calcitonin level. Overall prognosis remains guarded. The patient is on Levaquin. Additional recommendations and suggestions are forthcoming. Prognosis is guarded. The patient's budesonide is increased to 1 mg, and formoterol is added. Plan dated 07/25/2021. The patient appears to be doing a bit better. He remains on appropriate medicat ions including DuoNeb, formoterol, budesonide, Solu-Medrol. Antibiotics were discontinued, because the patient's pro-calcitonin level was normal. Continue to follow make recommendations where appropriate. Overall prognosis remains guarded. No additional recommendations at this time. Time with Patient: Less than 30
--- NOTE | 2021-07-25 14:58 | P.PN ---
Subjective Progress Note Date: 07/25/21 HISTORY OF PRESENT ILLNESS This is a 70-year-old male patient of Dr. Holbrook and Dr. Mireles with past medical history of advanced steroid-dependent COPD, hyperlipidemia, rheumatoid arthritis, obstructive sleep apnea unable to tolerate CPAP, chronic hypoxic respiratory failure on home O2 at 4 L nasal cannula, generalized osteoarthritis, chronic back pain pseudomonas in sputum on previous admission secondary to colonization or pseudomonal pneumonia. Known FVC of 72% and FEV1 of 46%. History of perforated duodenal ulcer status post exploratory laparotomy with repair of perforated duodenal ulcer and repair of incarcerated umbilical hernia. Patient had a recent hospitalization for superior and inferior left pubic ramus fracture and right clavicle fracture. Echocardiogram on 12/07/2020 reveals EF of 55-60% with mild concentric left ventricular hypertrophy, trace aortic regu rgitation, mild mitral regurgitation, mild tricuspid regurgitation, moderate pulmonary hypertension. Patient states he has had difficulty breathing for the past week. He had contacted Dr. Montoya's office and a prescription for Z-Mathew was called to his pharmacy. Patient denies any recent falls. He has been utilizing a walker for ambulation. He states he is a little constipated. No nausea or vomiting. He denies any fever or chills. Patient came into [facility] emergency center for evaluation. Patient was afebrile, heart rate 85, blood pressure 111/75, pulse ox 90% on 4 L nasal cannula. WBC 12.1, hemoglobin 11.8, platelet count 408. Sodium 125, potassium 4.8, chloride 87, CO2 34, BUN 17 creatinine 0.49. Troponin is negative on 3 draws. ProBNP 3950. Pro-calcitonin 0.09. Urinalysis negative for infection. Chronic virus PCR not detected. Chest x-ray reveals coarse pulmonary infiltrates not significantly different from last exam and could relate to acute on chronic interstitial pneumonia. Heart failure not excluded. CAT scan of the brain shows cerebral atrophy. Small mild bilateral mastoiditis. No change compared to previous exam. CT of the chest angiogram revealed advanced pulmonary fibrosis. Chronic pulmonary infiltrates similar to EXAM. Pleural thickening at the lung bases consistent with scarring and not significantly different. No evidence pulmonary embolism. Stable thoracic kyphotic deformity and mid thoracic compression fractures. Patient is seen today in the emergency center waiting for a bed on the [facility] floor, consult in place with pulmonary medicine, patient started on Levaquin, IV steroids. 07/25: Patient is seen today again in the emergency center waiting for a bed on the [facility] floor. He is currently on O2 at 9 L high flow nasal cannula with pulse ox of 96% he's been afebrile, heart rate 77, blood pressure 114/67. He does continue to have chest congestion and cough and wheezing. Pro-calcitonin came back at 0.09 and antibiotics were discontinued. ProBNP 3950. Tessalon Perles changed to scheduled, Pulmicort increase to 1 mg twice daily. REVIEW OF SYSTEMS Constitutional: No fever, no chills, no night sweats. No weight change. No weakness, fatigue or lethargy. No daytime sleepiness. EENT: No headache. No blurred vision or double vision, no loss of vision. No loss of Hearing, no ringing in the ears, no dizziness. No nasal drainage or congestion. No epistaxis. No sore throat. Lungs: Reports continued shortness of breath, Reports cough, Reports sputum production. No wheezing. Cardiovascular: No chest pain, no lower extremity edema. No palpitations. No paroxysmal nocturnal dyspnea. No orthopnea. No lightheadedness or dizziness. No syncopal episodes. Abdominal: No abdominal pain. No nausea, vomiting. No diarrhea. No constipation. No bloody or tarry stools.. No loss of appetite. Genitourinary: No dysuria, increased frequency, urgency. No urinary retention. Musculoskeletal: No myalgias. No muscle weakness, no gait dysfunction, no frequent falls. No back pain. No neck pain. Integumentary: No wounds, no lesions. No rash or pruritus. No unusual bruisin g. Neurologic: No aphasia. No facial droop. No change in mentation. No head injury. No headache. No paralysis. No paresthesia. Psychiatric: No depression. No anxiety. No mood swings. Endocrine: No abnormal blood sugars. No weight change. PHYSICAL EXAMINATION Gen: This is 70-year-old male. Patient is resting in ER and not appear to be in acute respiratory failure. HEENT: Head is atraumatic, normocephalic. Pupils equal, round. Sclerae is anicteric. NECK: Supple. No JVD. No lymphadenopathy. No thyromegaly. LUNGS: Coarse crackles bilaterally. No intercostal retractions. HEART: Regular rate and rhythm. Systolic murmur. ABDOMEN: Soft. Bowel sounds are present. No masses. No tenderness. Large ventral hernia, soft. EXTREMITIES: No pedal edema. No calf tenderness. Dorsalis pedis palpable bilaterally. NEUROLOGICAL: Patient is awake, alert and oriented x3. Cranial nerves 2 through 12 are grossly intact. ASSESSMENT AND PLAN 1. Acute hypoxic respiratory failure secondary to COPD exacerbation with underlying pulmonary fibrosis, possible rheumatoid arthritis associated interstitial lung disease. Continue DuoNeb treatments every 4 hours, Tessalon Perles 200 mg 3 times daily scheduled, Pulmicort 1 mg twice daily, Perforomist 20 g twice daily, Mucinex 1200 mg twice daily, Levaquin 500 milligrams daily, Solu-Medrol 40 mg IV every 6 hours. 2. Recent hospitalization for possible Right clavicular fracture and fracture of the superior and inferior left pubic ramus, pathologic, stable, no recent falls. 3. Possible tracheobronchitis. Patient is started on Levaquin, mucinex 1200 mg twice daily, Tessalon Perles 200 mg 3 times daily. 4. Chronic hypoxic respiratory failure. Continue oxygen therapy. 5. Advanced COPD with pulmonary fibrosis, steroid dependent and chronic hypoxic and hypercapnic respiratory failure on home O2 at 4 L. continue oxygen therapy. 6. Moderate pulmonary hypertension. 7. Hypertension. Continue Toprol-XL 25 mg daily. 8. Rheumatoid arthritis, stable. 9. Hyperlipidemia. Continue atorvastatin 40 mg at bedtime. 10. Obstructive sleep apnea unable to tolerate CPAP. 11. Chronic back pain and generalized osteoarthritis. Continue [place] as needed, gabapentin 300 mg at bedtime 12. History of perforated duodenal ulcer status post exploratory laparotomy with repair of perforated duodenal ulcer and repair of incarcerated umbilical hernia. 13. Generalized anxiety disorder and recurrent depression. Continue Zoloft 150 mg daily, Elavil 10 mg at bedtime. 14. DVT prophylaxis. Heparin subcu. 15. GI prophylaxis. Continue Protonix daily. 16. Insomnia. Continue Elavil 10 mg at bedtime. DISCHARGE PLAN Home with [facility]. Consult PT and OT. Impression and plan of care have been directed as dictated by the signing ph ysician. [place] Sal[place] nurse practitioner acting as scribe for signing physician. Objective - Vital Signs Vital signs: Vital Signs Temp 98.7 F 07/25/21 05:12 Pulse 77 07/25/21 05:12 Resp 18 11/23/21 05:12 BP 114/67 07/25/21 05:12 Pulse Ox 96 07/25/21 05:12 Intake & Output 07/24/21 07/25/21 07/25/21 18:59 06:59 18:59 Intake Total 100 1400 Output Total 750 Balance 100 650 Weight 63.503 kg Intake: Intake, IV Titration 100 100 Amount Azithromycin 500 mg In 100 Sodium Chloride 0.9% 250 ml @ 250 mls/hr IVPB HS [facility] Rx#:[id number] Levofloxacin 500Mg-D5w 100 Pmx 500 mg In Dextrose/ Water 1 100ml.bag @ 100 mls/hr IVPB Q24H [facility] Rx#: [id number] Oral 1300 Output: Urine 750 Other: Voiding Method Toilet Urinal - Labs CBC & Chem 7: 07/23/21 17:15 07/23/21 17:15
[2021-07-25] MEDS: BENZONATATE 100 MG CAP PO SCH ×2 (17:10→20:31)
[2021-07-25 17:28] LABS: Glucose,Whole Blood 135 mg/dL (75-99)
[2021-07-25] MEDS: INSULIN ASPART (NovoLOG) 100 UNIT/ML VIAL SQ SCH ×2 (17:31→20:31)
[2021-07-25 20:26] LABS: Glucose,Whole Blood 131 mg/dL (75-99)
[2021-07-25] MEDS: ATORVASTATIN 40 MG TAB PO SCH (20:31)
[2021-07-25] MEDS: GABAPENTIN 300 MG CAP PO SCH (20:31)
[2021-07-25] MEDS: AMITRIPTYLINE HCL 10 MG TAB PO SCH (22:03)
[2021-07-26] MEDS: IPRATROPIUM-ALBUTEROL 3 ML NEB INHALATION SCH ×6 (00:01→21:50)
[2021-07-26] MEDS: methylPREDNISolone SOD SUCCI 40 MG/ML 1 ML VIAL IV SCH ×5 (00:54→23:48)
[2021-07-26] MEDS: HEPARIN SODIUM,PORCINE/PF 5,000 UNIT/0.5 ML SYRINGE SQ SCH ×4 (00:54→23:49)
[2021-07-26] MEDS: HYDROcodone/APAP 10-325MG 1 EACH TAB PO PRN ×3 (00:55→23:49)
[2021-07-26 07:28] LABS: Glucose,Whole Blood 126 mg/dL (75-99)
[2021-07-26] MEDS: INSULIN ASPART (NovoLOG) 100 UNIT/ML VIAL SQ SCH ×4 (07:28→21:05)
[2021-07-26] MEDS: BUDESONIDE 1 MG/2 ML NEBU INHALATION SCH ×2 (07:38→21:50)
[2021-07-26] MEDS: FORMOTEROL FUMARATE 20 MCG/2 ML NEBU INHALATION SCH ×2 (07:38→21:50)
[2021-07-26] MEDS: MELOXICAM 7.5 MG TAB PO SCH (07:47)
[2021-07-26] MEDS: guaiFENesin 600 MG TABLET.ER PO SCH ×2 (07:47→21:04)
[2021-07-26] MEDS: MULTIVITAMINS, THERA 1 EACH TAB PO SCH (07:47)
[2021-07-26] MEDS: FUROSEMIDE 10 MG/ML 4 ML VIAL IV SCH (07:47)
[2021-07-26] MEDS: ASCORBIC ACID 500 MG TAB PO SCH (07:47)
[2021-07-26] MEDS: SERTRALINE 50 MG TAB PO SCH (07:48)
[2021-07-26] MEDS: CLOPIDOGREL 75 MG TAB PO SCH (07:49)
[2021-07-26] MEDS: THIAMINE 100 MG TAB PO SCH ×2 (07:49→17:17)
[2021-07-26] MEDS: BENZONATATE 100 MG CAP PO SCH ×3 (07:49→21:03)
[2021-07-26] MEDS: PANTOPRAZOLE 40 MG TABLET PO SCH (07:49)
[2021-07-26] MEDS: METOPROLOL SUCCINATE (ER) 25 MG TAB.ER.24H PO SCH (07:50)
[2021-07-26 11:20] LABS: Glucose,Whole Blood 161 mg/dL (75-99)
[2021-07-26] MEDS: FLUTICASONE 50MCG/SPRAY NASAL 16GM EA NOSTRIL SCH (11:57)
--- NOTE | 2021-07-26 15:55 | P.PN ---
Subjective Progress Note Date: 07/26/21 HISTORY OF PRESENT ILLNESS This is a 70-year-old male patient of Dr. Holbroko and Dr. Mireles with past medical history of advanced steroid-dependent COPD, hyperlipidemia, rheumatoid arthritis, obstructive sleep apnea unable to tolerate CPAP, chronic hypoxic respiratory failure on home O2 at 4 L nasal cannula, generalized osteoarthritis, chronic back pain pseudomonas in sputum on previous admission secondary to colonization or pseudomonal pneumonia. Known FVC of 72% and FEV1 of 46%. History of perforated duodenal ulcer status post exploratory laparotomy with repair of perforated duodenal ulcer and repair of incarcerated umbilical hernia. Patient had a recent hospitalization for superior and inferior left pubic ramus fracture and right clavicle fracture. Echocardiogram on 12/07/2020 reveals EF of 55-60% with mild concentric left ventricular hypertrophy, trace aortic regu rgitation, mild mitral regurgitation, mild tricuspid regurgitation, moderate pulmonary hypertension. Patient states he has had difficulty breathing for the past week. He had contacted Dr. Montoya's office and a prescription for Z-Mathew was called to his pharmacy. Patient denies any recent falls. He has been utilizing a walker for ambulation. He states he is a little constipated. No nausea or vomiting. He denies any fever or chills. Patient came into [facility] emergency center for evaluation. Patient was afebrile, heart rate 85, blood pressure 111/75, pulse ox 90% on 4 L nasal cannula. WBC 12.1, hemoglobin 11.8, platelet count 408. Sodium 125, potassium 4.8, chloride 87, CO2 34, BUN 17 creatinine 0.49. Troponin is negative on 3 draws. ProBNP 3950. Pro-calcitonin 0.09. Urinalysis negative for infection. Chronic virus PCR not detected. Chest x-ray reveals coarse pulmonary infiltrates not significantly different from last exam and could relate to acute on chronic interstitial pneumonia. Heart failure not excluded. CAT scan of the brain shows cerebral atrophy. Small mild bilateral mastoiditis. No change compared to previous exam. CT of the chest angiogram revealed advanced pulmonary fibrosis. Chronic pulmonary infiltrates similar to EXAM. Pleural thickening at the lung bases consistent with scarring and not significantly different. No evidence pulmonary embolism. Stable thoracic kyphotic deformity and mid thoracic compression fractures. Patient is seen today in the emergency center waiting for a bed on the [facility] floor, consult in place with pulmonary medicine, patient started on Levaquin, IV steroids. 07/25: Patient is seen today again in the emergency center waiting for a bed on the [facility] floor. He is currently on O2 at 9 L high flow nasal cannula with pulse ox of 96% he's been afebrile, heart rate 77, blood pressure 114/67. He does continue to have chest congestion and cough and wheezing. Pro-calcitonin came back at 0.09 and antibiotics were discontinued. ProBNP 3950. Tessalon Perles changed to scheduled, Pulmicort increase to 1 mg twice daily. 07/26 patient examined today sitting comfortably in bed. Continues to cough and is noted to be short of breath at rest. Patient is currently on 8 L high flow nasal cannula saturating at 97% blood pressure 92/48 afebrile pulse 96. Will obtain labs last labs obtained on 07/23 patient's blood sugar continues to be controlled ranging from 104-161. ProBNP mildly elevated at 3950 pro-calcitonin was negative. Patient's Lasix was switched from oral to IV. Pulmonary follo wing. Continue to down titrate oxygen need. We will reduce Solu-Medrol to 40 every 8 hours. Possible discharge in next 24-48 hours REVIEW OF SYSTEMS Constitutional: No fever, no chills, no night sweats. No weight change. No weakness, fatigue or lethargy. No daytime sleepiness. EENT: No headache. No blurred vision or double vision, no loss of vision. No loss of Hearing, no ringing in the ears, no dizziness. No nasal drainage or congestion. No epistaxis. No sore throat. Lungs: Reports continued shortness of breath, Reports cough, Reports sputum production. No wheezing. Cardiovascular: No chest pain, no lower extremity edema. No palpitations. No paroxysmal nocturnal dyspnea. No orthopnea. No lightheadedness or dizziness. No syncopal episodes. Abdominal: No abdominal pain. No nausea, vomiting. No diarrhea. No constipation. No bloody or tarry stools.. No loss of appetite. Genitourinary: No dysuria, increased frequency, urgency. No urinary retention. Musculoskeletal: No myalgias. No muscle weakness, no gait dysfunction, no frequent falls. No back pain. No neck pain. Integumentary: No wounds, no lesions. No rash or pruritus. No unusual bruising. Neurologic: No aphasia. No facial droop. No change in mentation. No head injury. No headache. No paralysis. No paresthesia. Psychiatric: No depression. No anxiety. No mood swings. Endocrine: No abnormal blood sugars. No weight change. PHYSICAL EXAMINATION Gen: This is 70-year-old male. Patient is resting in ER and not appear to be in acute respiratory failure. HEENT: Head is atraumatic, normocephalic. Pupils equal, round. Sclerae is anicte charissa. NECK: Supple. No JVD. No lymphadenopathy. No thyromegaly. LUNGS: Improvement in crackles bilaterally mild wheezing noted. No intercostal retractions. HEART: Regular rate and rhythm. Systolic murmur. ABDOMEN: Soft. Bowel sounds are present. No masses. No tenderness. Large ventral hernia, soft. EXTREMITIES: No pedal edema. No calf tenderness. Dorsalis pedis palpable bilaterally. NEUROLOGICAL: Patient is awake, alert and oriented x3. Cranial nerves 2 through 12 are grossly intact. ASSESSMENT AND PLAN 1. Acute hypoxic respiratory failure secondary to COPD exacerbation with underlying pulmonary fibrosis, possible rheumatoid arthritis associated interstitial lung disease. Continue DuoNeb treatments every 4 hours, Tessalon Perles 200 mg 3 times daily scheduled, Pulmicort 1 mg twice daily, Perforomist 20 g twice daily, Mucinex 1200 mg twice daily, Levaquin discontinued pro- calcitonin normal Solu-Medrol 40 mg IV reduce to every 8 hours 2. Recent hospitalization for possible Right clavicular fracture and fracture of the superior and inferior left pubic ramus, pathologic, stable, no recent falls. 3. Possible tracheobronchitis. on mucinex 1200 mg twice daily, Tessalon Perles 200 mg 3 times daily. Pro-calcitonin was negative below Levaquin discontinued continue Solu-Medrol, reduce Solu-Medrol from 40 IV every 6 hours 40 IV every 8 hours 4. Chronic hypoxic respiratory failure. Continue oxygen therapy. 5. Advanced COPD with pulmonary fibrosis, steroid dependent and chronic hypoxic and hypercapnic respiratory failure on home O2 at 4 L. continue oxygen therapy. 6. Moderate pulmonary hypertension. 7. Hypertension. Continue Toprol-XL 25 mg daily. 8. Rheumatoid arthritis, stable. 9. Hyperlipidemia. Continue atorvastatin 40 mg at bedtime. 10. Obstructive sleep apnea unable to tolerate CPAP. 11. Chronic back pain and generalized osteoarthritis. Continue [place] as needed, gabapentin 300 mg at bedtime 12. History of perforated duodenal ulcer status post exploratory laparotomy with repair of perforated duodenal ulcer and repair of incarcerated umbilical hernia. 13. Generalized anxiety disorder and recurrent depression. Continue Zoloft 150 mg daily, Elavil 10 mg at bedtime. 14. DVT prophylaxis. Heparin subcu. 15. GI prophylaxis. Continue Protonix daily. 16. Insomnia. Continue Elavil 10 mg at bedtime. DISCHARGE PLAN Home with [facility]. Consult PT and OT. Objective - Vital Signs Vital signs: Vital Signs Temp 98.2 F 07/26/21 02:00 Pulse 101 H 07/26/21 02:00 Resp 18 07/26/21 02:00 BP 95/58 07/26/21 02:00 Pulse Ox 99 07/26/21 02:00 Intake & Output 07/25/21 07/26/21 07/26/21 18:59 06:59 18:59 Output Total 1150 Balance -1150 Weight 56.5 kg Output: Urine 1150 Other: Voiding Method Urinal # Voids 1 1 - Labs CBC & Chem 7: 07/23/21 17:15 07/23/21 17:15 Labs: Abnormal Lab Results - Last 24 Hours (Table) 07/25/21 07/25/21 Range/Units 17:26 20:25 POC Glucose (mg/dL) 135 H 131 H (75-99) mg/dL
[2021-07-26 16:40] LABS: Glucose,Whole Blood 153 mg/dL (75-99)
--- NOTE | 2021-07-26 16:58 | P.PN ---
Subjective Progress Note Date: 07/26/21 Principal diagnosis: Shortness of breath. Pulmonary consult dated 07/24/2021. 70-year-old male, well-known to me, with history of chronic hypoxemic respiratory failure, on home O2 at 4 L, secondary to both COPD, and pulmonary fibrosis, who presents to the emergency department, with complaints of increasing shortness of breath. The patient hasn't been feeling well for at least 3 or 4 days prior to admission, and may be even a week or so. The patient complains of cough, and phlegm production. He denies any fever or chills. He denies any chest pain. The patient was brought to the emergency room by EMS. Currently, the patient is on 14 L high flow nasal cannula, and not receiving any IV fluids. We saw him in the emergency room, room 23. His coronavirus testing was negative. He has been fully vaccinated. The patient states that he's feeling only a bit better since she's been here in the emergency department. He did have some mild conversational dyspnea, but no audible wheezing. There was no use of accessory muscles. CT revealed no evidence of pulmonary embolism. There was advanced pulmonary fibrosis. Chest x-ray was also reviewed. White count 12.1, hemoglobin 11.8, hematocrit 35.9, platelet count 408,000. PT INR and PTT were normal. D-dimer was 0.94. Sodium 125, potassium 4.8, chlorides 87, CO2 34, anion gap 4, BUN 17, and creatinine 0.49. Albumin was 2.8. Troponins were normal. N-terminal proBNP was 3950. Urine was negative. Progress note dated 07/25/2021. 70-year-old male, who presented to the emergency department, with complaints of shortness of breath. The patient has a history of COPD, and pulmonary fibrosis. He also has a history of chronic hypoxemic respiratory failure, uses home O2, at 4 L/m, 25/03. The patient is feeling better today. He's been weaned down from 14 L high flow oxygen, to 9 L high flow. He still quite short of breath. He also admits to chest congestion, coughing, and wheezing. No new labs today t o report. No chest x-ray to report as well. Current pulmonary medications include Pulmicort, formoterol, Solu-Medrol, and DuoNeb. Antibiotics were discontinued because the patient's pro-calcitonin level was normal. Progress note dated 07/26/2021. 70-year-old male, seen in room next to one. The patient appears to be doing better. The patient does have a history of chronic hypoxemic respiratory failure. He does use home O2 at 4 L/m, 25/03. His underlying pulmonary pathology is that of COPD, and pulmonary fibrosis, and possibly rheumatoid arthritis associated interstitial lung disease. Currently he is on 5 L nasal cannula. Saturations are 98%. I'm hoping, the patient could be discharged home tomorrow. No new laboratory data to speak of. Objective - Vital Signs Vital signs: Vital Signs Temp 97.8 F 07/26/21 13:55 Pulse 80 07/26/21 16:44 Resp 18 07/26/21 13:55 BP 92/48 07/26/21 13:55 Pulse Ox 98 07/26/21 16:47 Intake & Output 07/25/21 07/26/21 07/26/21 18:59 06:59 18:59 Output Total 1150 Balance -1150 Weight 56.5 kg Output: Urine 1150 Other: Voiding Method Urinal Urinal # Voids 1 1 2 # Bowel Movements 1 - Exam No acute distress, oriented 3, mild conversational dyspnea. No audible wheezing. Seems less short of breath today. Currently on 5 L. HEENT examination is grossly unremarkable. Neck supple. Full range of motion. No adenopathy thyromegaly or neck vein distention. Cardiovascular examination reveals regular rhythm rate. S1-S2 normal. No S3 or S4. No discernible murmur noted. Heart sounds are distant. Heart rate 92 bpm. Lungs reveal coarse bilateral expiratory rhonchi and wheezes. Bibasilar crackles are also noted. Breath sounds are equal bilaterally. The patient does have severe kyphosis. Breath sounds have improved. Abdomen soft bowel sounds are heard. No masses or tenderness. Extremities are intact. No cyanosis clubbing or edema. Skin is without rash or lesion. Neurologic examination is brief but nonfocal. - Labs CBC & Chem 7: 07/23/21 17:15 07/23/21 17:15 Labs: Abnormal Lab Results - Last 24 Hours (Table) 11/23/21 11/23/21 11/24/21 Range/Units 17:26 20:25 07:26 POC Glucose (mg/dL) 135 H 131 H 126 H (75-99) mg/dL 07/26/21 07/26/21 Range/Units 11:17 16:38 POC Glucose (mg/dL) 161 H 153 H (75-99) mg/dL Microbiology - Last 24 Hours (Table) 07/25/21 21:26 Gram Stain - Preliminary Sputum Sputum Culture - Preliminary Assessment and Plan Assessment: Acute hypoxemic respiratory failure secondary to COPD exacerbation, and pulmon elizabeth fibrosis, and possible rheumatoid arthritis associated interstitial lung disease. History of CHF. History of rheumatoid arthritis. History of hyperlipidemia. History of osteoarthritis. History of sleep apnea syndrome, currently on CPAP. Prior history of perforated duodenal ulcer. Chronic back pain. Prior history of heavy tobacco use. History of anxiety/depression. Plan: Plan dated 07/24/2021. The patient is admitted with a diagnosis of acute hypoxemic respiratory failure. The patient is well-known to me. The computed tomography scan did not reveal any evidence of PE, but did show emphysematous changes, and diffuse interstitial lung disease/pulmonary fibrosis. We will check an N-terminal proBNP level, as well as a pro-calcitonin level. Overall prognosis remains guarded. The patient is on Levaquin. Additional recommendations and suggestions are forthcoming. Prognosis is guarded. The patient's budesonide is increased to 1 mg, and formoterol is added. Plan dated 07/25/2021. The patient appears to be doing a bit better. He remains on appropriate medi cations including DuoNeb, formoterol, budesonide, Solu-Medrol. Antibiotics were discontinued, because the patient's pro-calcitonin level was normal. Continue to follow make recommendations where appropriate. Overall prognosis remains guarded. No additional recommendations at this time. Plan dated 07/26/2021. The patient has been weaned down to 5 L nasal cannula. Saturations are 98%. The patient's on appropriate medications. The patient's pro-calcitonin level was normal. He remains on Solu-Medrol, DuoNeb, formoterol, budesonide. We are hoping that the patient could be discharged home tomorrow. We'll have to wait and see. The final decision will be made by the hospital service. I will see the patient in the office post discharge. No additional recommendations are made. Time with Patient: Less than 30
[2021-07-26 20:38] LABS: Glucose,Whole Blood 136 mg/dL (75-99)
[2021-07-26] MEDS: ATORVASTATIN 40 MG TAB PO SCH (21:04)
[2021-07-26] MEDS: GABAPENTIN 300 MG CAP PO SCH (21:06)
[2021-07-26] MEDS: AMITRIPTYLINE HCL 10 MG TAB PO SCH (22:05)
[2021-07-27] MEDS: IPRATROPIUM-ALBUTEROL 3 ML NEB INHALATION SCH ×4 (01:57→11:43)
[2021-07-27] MEDS ORDERED: predniSONE 20 MG TAB PO STA (06:49)
[2021-07-27 07:16] LABS: Glucose,Whole Blood 119 mg/dL (75-99)
[2021-07-27] MEDS: INSULIN ASPART (NovoLOG) 100 UNIT/ML VIAL SQ SCH ×2 (07:32→11:27)
[2021-07-27] MEDS: PANTOPRAZOLE 40 MG TABLET PO SCH (08:08)
[2021-07-27] MEDS: MELOXICAM 7.5 MG TAB PO SCH (08:08)
[2021-07-27] MEDS: guaiFENesin 600 MG TABLET.ER PO SCH (08:08)
[2021-07-27] MEDS: ASCORBIC ACID 500 MG TAB PO SCH (08:09)
[2021-07-27] MEDS: BENZONATATE 100 MG CAP PO SCH (08:09)
[2021-07-27] MEDS: SERTRALINE 50 MG TAB PO SCH (08:09)
[2021-07-27] MEDS: BUDESONIDE 1 MG/2 ML NEBU INHALATION SCH (08:09)
[2021-07-27] MEDS: MULTIVITAMINS, THERA 1 EACH TAB PO SCH (08:09)
[2021-07-27] MEDS: FORMOTEROL FUMARATE 20 MCG/2 ML NEBU INHALATION SCH (08:09)
[2021-07-27] MEDS: HEPARIN SODIUM,PORCINE/PF 5,000 UNIT/0.5 ML SYRINGE SQ SCH (08:10)
[2021-07-27] MEDS: CLOPIDOGREL 75 MG TAB PO SCH (08:10)
[2021-07-27] MEDS: FLUTICASONE 50MCG/SPRAY NASAL 16GM EA NOSTRIL SCH (08:10)
[2021-07-27] MEDS: THIAMINE 100 MG TAB PO SCH (08:10)
[2021-07-27 08:17] VITALS: BP 93/52; RESP 17; TEMP 98.5
[2021-07-27] MEDS: FUROSEMIDE 10 MG/ML 4 ML VIAL IV SCH (08:20)
[2021-07-27] MEDS: METOPROLOL SUCCINATE (ER) 25 MG TAB.ER.24H PO SCH (08:20)
[2021-07-27] MEDS: HYDROcodone/APAP 10-325MG 1 EACH TAB PO PRN (08:28)
[2021-07-27 08:36] VITALS: PULSE 92
[2021-07-27 10:23] VITALS: BMI 18.6
[2021-07-27 11:25] LABS: Glucose,Whole Blood 129 mg/dL (75-99)
--- NOTE | 2021-07-27 11:30 | P.DS ---
Providers Date of admission: 07/23/21 19:41 Attending physician: Razia Holbrook Consults: 07/23/21 19:43 Consult Physician Routine Consulting Provider: Gabbie Santos Consult Reason/Comments: copd exacerbation, chronic pulmonary fibrosis and hypoxic respiratory fail Do you want consulting provider notified?: Yes Primary care physician: Razia Holbrook [facility] Course: HISTORY OF PRESENT ILLNESS This is a 70-year-old male patient of Dr. Holbrook and Dr. Mireles with past medical history of advanced steroid-dependent COPD, hyperlipidemia, rheumatoid arthritis, obstructive sleep apnea unable to tolerate CPAP, chronic hypoxic respiratory failure on home O2 at 4 L nasal cannula, generalized osteoarthritis, chronic back pain pseudomonas in sputum on previous admission secondary to colonization or pseudomonal pneumonia. Known FVC of 72% and FEV1 of 46%. History of perforated duodenal ulcer status post exploratory laparotomy with repair of perforated duodenal ulcer and repair of incarcerated umbilical hernia. Patient had a recent hospitalization for superior and inferior left pubic ramus fracture and right clavicle fracture. Echocardiogram on 12/07/2020 reveals EF of 55-60% with mild concentric left ventricular hypertrophy, trace aortic regurgitation, mild mitral regurgitation, mild tricuspid regurgitation, moderate pulmonary hypertension. Patient states he has had difficulty breathing for the past week. He had contacted Dr. Montoya's office and a prescription for Z-Mathew was called to his pharmacy. Patient denies any recent falls. He has been utilizing a walker for ambulation. He states he is a little constipated. No nausea or vomiting. He denies any fever or chills. Patient came into [facility] emergency center for evaluation. Patient was afebrile, heart rate 85, blood pressure 111/75, pulse ox 90% on 4 L nasal cannula. WBC 12.1, hemoglobin 11.8, platelet count 408. Sodium 125, potassium 4.8, chloride 87, CO2 34, BUN 17 creatinine 0.49. Troponin is negative on 3 draws. ProBNP 3950. Pro-calcitonin 0.09. Urinalysis negative for infection. Chronic virus PCR not detected. Chest x-ray reveals coarse pulmonary infiltrates not significantly different from last exam and could relate to acute on chronic interstitial pneumonia. Heart failure not excluded. CAT scan of the brain shows cerebral atrophy. Small mild bilateral mastoiditis. No change compared to previous exam. CT of the chest angiogram revealed advanced pulmonary fibrosis. Chronic pulmonary infiltrates similar to EXAM. Pleural thickening at the lung bases consistent with scarring and not significantly different. No evidence pulmonary embolism. Stable thoracic kyphotic deformity and mid thoracic compression fra ctures. Patient is seen today in the emergency center waiting for a bed on the [facility] floor, consult in place with pulmonary medicine, patient started on Levaquin, IV steroids. 07/25: Patient is seen today again in the emergency center waiting for a bed on the [facility] floor. He is currently on O2 at 9 L high flow nasal cannula with pulse ox of 96% he's been afebrile, heart rate 77, blood pressure 114/67. He does continue to have chest congestion and cough and wheezing. Pro-calcitonin came back at 0.09 and antibiotics were discontinued. ProBNP 3950. Tessalon Perles changed to scheduled, Pulmicort increase to 1 mg twice daily. 07/26 patient examined today sitting comfortably in bed. Continues to cough and is noted to be short of breath at rest. Patient is currently on 8 L high flow n jayce cannula saturating at 97% blood pressure 92/48 afebrile pulse 96. Will obtain labs last labs obtained on 07/23 patient's blood sugar continues to be controlled ranging from 104-161. ProBNP mildly elevated at 3950 pro-calcitonin was negative. Patient's Lasix was switched from oral to IV. Pulmonary following. Continue to down titrate oxygen need. We will reduce Solu-Medrol to 40 every 8 hours. Possible discharge in next 24-48 hours 07/27 is a 70 years old male admitted with acute hypoxic respiratory failure. Patient's oxygen with him and has titrated down with current treatment plan. Currently patient is on 4 L of nasal cannula and is breathing comfortably at rest. Patient denies any cough production. Solu-Medrol switched to prednisone. Glucose is controlled. ProBNP was mildly elevated at 3950. Pro-calcitonin was normal Patient has been cleared by pulmonary. Long prednisone taper prescribed for patient to be followed by Dr. Weaver as outpatient PHYSICAL EXAMINATION Gen: This is 70-year-old male. Patient is resting in ER and not appear to be in acute respiratory failure. HEENT: Head is atraumatic, normocephalic. Pupils equal, round. Sclerae is anicteric. NECK: Supple. No JVD. No lymphadenopathy. No thyromegaly. LUNGS: Improvement in crackles bilaterally no wheezing No intercostal retractions. HEART: Regular rate and rhythm. Systolic murmur. ABDOMEN: Soft. Bowel sounds are present. No masses. No tenderness. Large ventral hernia, soft. EXTREMITIES: No pedal edema. No calf tenderness. Dorsalis pedis palpable bilaterally. NEUROLOGICAL: Patient is awake, alert and oriented x3. Cranial nerves 2 through 12 are grossly intact. ASSESSMENT AND PLAN Acute hypoxic respiratory failure secondary to COPD exacerbation with underlying pulmonary fibrosis, possible rheumatoid arthritis associated interstitial lung disease. Recent hospitalization for possible Right clavicular fracture and fracture of the superior and inferior left pubic ramus, pathologic, stable, no recent falls. Acute diastolic congestive heart failure Chronic hypoxic respiratory failure. Continue oxygen therapy. Advanced COPD with pulmonary fibrosis, steroid dependent and chronic hypoxic and hypercapnic respiratory failure on home O2 at 4 L. continue oxygen therapy. Moderate pulmonary hypertension. Hypertension. Rheumatoid arthritis, stable. Hyperlipidemia. Obstructive sleep apnea unable to tolerate CPAP. Chronic back pain and generalized osteoarthritis. History of perforated duodenal ulcer status post exploratory laparotomy with repair of perforated duodenal ulcer and repair of incarcerated umbilical hernia. Generalized anxiety disorder and recurrent depression. Continue Zoloft 150 mg daily, Elavil 10 mg at bedtime. Insomnia. Continue Elavil 10 mg at bedtime. Disposition home with homecare Patient Condition at Discharge: Good Plan - Discharge Summary Discharge Rx Participant: No New Discharge Prescriptions: New predniSONE 0 mg PO DIRECTED #60 tab HYDROcodone/APAP 10-325MG [Ed[place]ont 10-325] 1 tab PO Q8HR PRN 3 Days #9 tab PRN Reason: Pain Continue Metoprolol Succinate [Toprol XL] 25 mg PO DAILY Sertraline [Zoloft] 150 mg PO DAILY Celecoxib [CeleBREX] 200 mg PO DAILY Melatonin 3 mg PO HS PRN PRN Reason: Insomnia Clopidogrel [Plavix] 75 mg PO DAILY #14 tab Fluticasone Nasal Avalon [Flonase Nasal Avalon] 2 spr EA NOSTRIL DAILY Furosemide [Lasix] 40 mg PO DAILY #28 tab Gabapentin [Neurontin] 300 mg PO HS #3 cap predniSONE 2.5 mg PO Q48H #0 Multivitamins, Thera [Multivitamin (formulary)] 1 tab PO DAILY HYDROcodone/APAP 10-325MG [Ed[place]ont 10-325] 1 tab PO Q6H PRN PRN Reason: Pain Benzonatate [Tessalon Perles] 200 mg PO TID PRN PRN Reason: Cough Atorvastatin [Lipitor] 40 mg PO HS Amitriptyline HCl [Elavil] 10 mg PO HS Ascorbic Acid [Vitamin C] 1,000 mg PO DAILY Ipratropium-Albuterol Nebulize [Duoneb 0.5 mg-3 mg/3 ml Soln] 3 ml INHALATION RT-QID Budesonide [Pulmicort] 0.5 mg INHALATION RT-BID Thiamine [Vitamin B-1] 100 mg PO BID-W/MEALS tab Omeprazole 20 mg PO DAILY guaiFENesin 400 mg PO Q4H Calcium Carbonate 1,000 mg PO Q8H PRN PRN Reason: Indigestion Acetaminophen [Tylenol] 650 mg PO Q6H PRN PRN Reason: Pain Discontinued Azithromycin [Zithromax Z-pack (6 tabs)] See Taper PO DIRECTED Discharge Medication List Metoprolol Succinate [Toprol XL] 25 mg PO DAILY 01/12/20 [History] Sertraline [Zoloft] 150 mg PO DAILY 01/12/20 [History] Amitriptyline HCl [Elavil] 10 mg PO HS 12/06/20 [History] Celecoxib [CeleBREX] 200 mg PO DAILY 12/06/20 [History] Ascorbic Acid [Vitamin C] 1,000 mg PO DAILY 12/10/20 [History] Ipratropium-Albuterol Nebulize [Duoneb 0.5 mg-3 mg/3 ml Soln] 3 ml INHALATION RT-QID 12/10/20 [History] Melatonin 3 mg PO HS PRN 12/10/20 [History] Clopidogrel [Plavix] 75 mg PO DAILY #14 tab 12/13/20 [Rx] Budesonide [Pulmicort] 0.5 mg INHALATION RT-BID 07/10/21 [History] Fluticasone Nasal Avalon [Flonase Nasal Avalon] 2 spr EA NOSTRIL DAILY 07/10/21 [History] Furosemide [Lasix] 40 mg PO DAILY #28 tab 07/12/21 [Rx] Gabapentin [Neurontin] 300 mg PO HS #3 cap 07/12/21 [Rx] Thiamine [Vitamin B-1] 100 mg PO BID-W/MEALS tab 07/12/21 [Rx] predniSONE 2.5 mg PO Q48H #0 07/12/21 [Rx] Acetaminophen [Tylenol] 650 mg PO Q6H PRN 07/23/21 [History] Atorvastatin [Lipitor] 40 mg PO HS 07/23/21 [History] Benzonatate [Tessalon Perles] 200 mg PO TID PRN 07/23/21 [History] Calcium Carbonate 1,000 mg PO Q8H PRN 07/23/21 [History] HYDROcodone/APAP 10-325MG [Ed[place]ont 10-325] 1 tab PO Q6H PRN 07/23/21 [History] Multivitamins, Thera [Multivitamin (formulary)] 1 tab PO DAILY 07/23/21 [History] Omeprazole 20 mg PO DAILY 07/23/21 [History] guaiFENesin 400 mg PO Q4H 07/23/21 [History] HYDROcodone/APAP 10-325MG [Ed[place]ont 10-325] 1 tab PO Q8HR PRN 3 Days #9 tab 07/27/21 [Rx] predniSONE 0 mg PO DIRECTED #60 tab 07/27/21 [Rx] Follow up Appointment(s)/Referral(s): Razia Holbrook MD [Primary Care Provider] - 1-2 days [facility] [NON-STAFF] - Lex Weaver DO [Doctor of Osteopathic Medicine] - 1 Week Discharge Disposition: HOME WITH HOME HEALTH SERVICES
--- NOTE | 2021-07-27 14:21 | PN ---
PROGRESS NOTE This is a 70-year-old male who was again seen on July 27. Currently the patient is doing much better. He has been weaned down to 4 L nasal cannula. He states that his breathing is improved. The patient denies any cough or phlegm production. No chest pain or chest discomfort. No fever or chills. PHYSICAL EXAMINATION: Vital signs are reviewed. His temperature is normal, heart rate 92, respiratory rate 17, blood pressure 147/72, 4-liter saturation 96%. GENERAL APPEARANCE: He appears in no acute distress. HEENT examination is grossly unremarkable. NECK: Supple. Full range of motion. No adenopathy. Neck veins are flat. Cardiovascular examination reveals regular rhythm and rate. Heart rate 92 beats per minute. S1, S2 normal. No S3, S4 or murmur. Lungs reveal coarse rhonchi. Breath sounds are improved. There are some basilar crackles. Breath sounds equal bilaterally. ABDOMEN: Soft. Bowel sounds are heard. Extremities are intact. There is no cyanosis, clubbing or edema. SKIN: Without rash. Neurologic examination is nonfocal. No new labs or x-rays to report. Medications are reviewed. ASSESSMENT: 1. Acute hypoxemic respiratory failure secondary to chronic obstructive pulmonary disease exacerbation as well as pulmonary fibrosis and possible rheumatoid arthritis-associated interstitial lung disease. 2. History of congestive heart failure. 3. History of rheumatoid arthritis. 4. History of hyperlipidemia. 5. History of osteoarthritis. 6. History of sleep apnea syndrome, currently maintained on CPAP. 7. Prior history of perforated duodenal ulcer. 8. Chronic back pain. 9. Prior history of heavy tobacco use. 10.History of anxiety/depression. PLAN: The patient is doing better. He has been weaned down to 4 ; that is how much oxygen he uses at home. The CT angiogram did not show any evidence of pulmonary embolism. It did show evidence of emphysematous changes and diffuse interstitial lung disease. The patient is doing better on Levaquin. Will continue to follow. The patient is maintained on Pulmicort and formoterol. He is also on corticosteroids. Additional recommendations and suggestions are forthcoming. Prognosis is guarded. MMODL / IJN: [id number] /
== END 2021-07-27 13:14 | disposition home health service (06) | DRG 196 ==
LOC: EC 16:09 → 4SSUR 19:41
PROVIDERS: ADMIT Family Medicine; ATTEND Family Medicine
PROC: 5A0945A Assistance with Respiratory Ventilation, 24-96 Consecutive Hours, High Flow/Velocity Cannula (ICD-10-PCS; principal; 2021-07-24)
DX: M05.10 Rheumatoid lung disease with rheumatoid arthritis of unspecified site (principal); J96.21 Acute and chronic respiratory failure with hypoxia; I50.33 Acute on chronic diastolic (congestive) heart failure; J96.22 Acute and chronic respiratory failure with hypercapnia; J44.0 Chronic obstructive pulmonary disease with (acute) lower respiratory infection; F33.9 Major depressive disorder, recurrent, unspecified; E87.1 Hypo-osmolality and hyponatremia; J44.1 Chronic obstructive pulmonary disease with (acute) exacerbation; I27.20 Pulmonary hypertension, unspecified; H70.93 Unspecified mastoiditis, bilateral; J84.178 Other interstitial pulmonary diseases with fibrosis in diseases classified elsewhere; I11.0 Hypertensive heart disease with heart failure; J84.10 Pulmonary fibrosis, unspecified; G31.9 Degenerative disease of nervous system, unspecified; Z20.822 Contact with and (suspected) exposure to COVID-19; E87.8 Other disorders of electrolyte and fluid balance, not elsewhere classified; M48.54XS Collapsed vertebra, not elsewhere classified, thoracic region, sequela of fracture; M84.411S Pathological fracture, right shoulder, sequela; G47.33 Obstructive sleep apnea (adult) (pediatric); D64.9 Anemia, unspecified; F41.1 Generalized anxiety disorder; G47.00 Insomnia, unspecified; E78.5 Hyperlipidemia, unspecified; I08.1 Rheumatic disorders of both mitral and tricuspid valves; G89.29 Other chronic pain; M48.00 Spinal stenosis, site unspecified; M15.9 Polyosteoarthritis, unspecified; K59.00 Constipation, unspecified; Z99.81 Dependence on supplemental oxygen; Z79.51 Long term (current) use of inhaled steroids; Z79.02 Long term (current) use of antithrombotics/antiplatelets; Z79.1 Long term (current) use of non-steroidal anti-inflammatories (NSAID); Z79.52 Long term (current) use of systemic steroids; Z79.899 Other long term (current) drug therapy; Z87.891 Personal history of nicotine dependence; Z87.01 Personal history of pneumonia (recurrent); Z87.19 Personal history of other diseases of the digestive system; Z87.11 Personal history of peptic ulcer disease; Z77.098 Contact with and (suspected) exposure to other hazardous, chiefly nonmedicinal, chemicals; Z98.890 Other specified postprocedural states; Z88.0 Allergy status to penicillin; Z80.6 Family history of leukemia; Z80.0 Family history of malignant neoplasm of digestive organs; Z81.8 Family history of other mental and behavioral disorders; Z80.1 Family history of malignant neoplasm of trachea, bronchus and lung; Z83.49 Family history of other endocrine, nutritional and metabolic diseases; Z83.3 Family history of diabetes mellitus; Z82.3 Family history of stroke
CPT/HCPCS: 36415; 70450; 71046; 71275; 80053; 81003; 83605; 83735; 83880; 84145; 84484; 85025; 85379; 85610; 85730; 87070; 87205; 87635; 93005; 94640; 94760; 96365; 96366; 96367; 96375; 96376; 99291

== ENCOUNTER 2021-08-04 13:40 | Inpatient (IN) | payer MEDICARE, OTHER ==
[2021-08-04] MEDS ORDERED: SODIUM CHLORIDE 0.9% 500 ML 500 ML IV STA (13:50)
[2021-08-04] MEDS ORDERED: methylPREDNISolone SOD SUCCI 125 MG/2 ML VIAL IV STA (13:50)
[2021-08-04] MEDS ORDERED: ALBUTEROL HFA INHALER INHALATION STA (13:50)
[2021-08-04] MEDS ORDERED: HYDROmorphone 0.5 MG/0.5 ML SYRINGE IVP STA (13:51)
--- NOTE | 2021-08-04 13:58 | ED ---
General Adult HPI - General Stated complaint: Shortness of Breath Time Seen by Provider: 08/04/21 13:40 Source: patient, RN notes reviewed, old records reviewed - History of Present Illness Initial comments: This is a 70-year-old male presents emergency Department complaining of difficulty breathing and progressively worse over the last week and last couple of days much worse. According to the report patient had his oxygen increased from 3 and half liters to 6 L. Patient states he is not having any chest pain but he is having some pain in his pelvis because recently he did break his pelvis. Patient denies any fever chills or cough. Patient states he is upset that his vaccinations. Patient states he is not having any chest pain or palpitations. Patient denies abdominal pain patient is not vomiting diarrhea. Patient has long-standing history of COPD. - Related Data Home Medications Medication Instructions Recorded Confirmed Metoprolol Succinate [Toprol XL] 25 mg PO DAILY 01/12/20 07/23/21 Sertraline [Zoloft] 150 mg PO DAILY 01/12/20 07/23/21 Amitriptyline HCl [Elavil] 10 mg PO HS 12/06/20 07/23/21 Celecoxib [CeleBREX] 200 mg PO DAILY 12/06/20 07/23/21 Ascorbic Acid [Vitamin C] 1,000 mg PO DAILY 12/10/20 07/23/21 Ipratropium-Albuterol Nebulize 3 ml INHALATION RT-QID 12/10/20 07/23/21 [Duoneb 0.5 mg-3 mg/3 ml Soln] Melatonin 3 mg PO HS PRN 12/10/20 07/23/21 Budesonide [Pulmicort] 0.5 mg INHALATION RT-BID 07/10/21 07/23/21 Fluticasone Nasal [place] [Flonase 2 spr EA NOSTRIL DAILY 07/10/21 07/23/21 Nasal [place]] Acetaminophen [Tylenol] 650 mg PO Q6H PRN 07/23/21 07/23/21 Atorvastatin [Lipitor] 40 mg PO HS 07/23/21 07/23/21 Benzonatate [Tessalon Perles] 200 mg PO TID PRN 07/23/21 07/23/21 Calcium Carbonate 1,000 mg PO Q8H PRN 07/23/21 07/23/21 HYDROcodone/APAP 10-325MG [[place] 1 tab PO Q6H PRN 07/23/21 07/23/21 10-325] Multivitamins, Thera [Multivitamin 1 tab PO DAILY 07/23/21 07/23/21 (formulary)] Omeprazole 20 mg PO DAILY 07/23/21 07/23/21 guaiFENesin 400 mg PO Q4H 07/23/21 07/23/21 Previous Rx's Medication Instructions Recorded Clopidogrel [Plavix] 75 mg PO DAILY #14 tab 12/13/20 Furosemide [Lasix] 40 mg PO DAILY #28 tab 07/12/21 Gabapentin [Neurontin] 300 mg PO HS #3 cap 07/12/21 Thiamine [Vitamin B-1] 100 mg PO BID-W/MEALS tab 07/12/21 predniSONE 2.5 mg PO Q48H #0 07/12/21 HYDROcodone/APAP 10-325MG [[place] 1 tab PO Q8HR PRN 3 Days #9 tab 07/27/21 10-325] predniSONE 0 mg PO DIRECTED #60 tab 07/27/21 Allergies Allergy/AdvReac Type Severity Reaction Status Date / Time amoxicillin AdvReac Nausea & Verified 08/04/21 13:54 Vomiting Review of Systems ROS Statement: Those systems with pertinent positive or pertinent negative responses have been documented in the HPI. ROS Other: All systems not noted in ROS Statement are negative. Past Medical History Past Medical History: Heart Failure, COPD, Hyperlipidemia, Osteoarthritis (OA), Pneumonia, Rheumatoid Arthritis (RA), Sleep Apnea/CPAP/BIPAP Additional Past Medical History / Comment(s): COPD, chronic hypoxic respiratory failure previous history of pneumoperitoneum related to a perforated duodenal ulcer, repair of an umbilical hernia, chronic back pain, back stenosis. History of Any Multi-Drug Resistant Organisms: None Reported Past Surgical History: Orthopedic Surgery Additional Past Surgical History / Comment(s): colonoscopy, repair of a p erforated duodenal ulcer and repair of an incarcerated umbilical hernia Past Anesthesia/Blood Transfusion Reactions: No Reported Reaction Past Psychological History: Anxiety, Depression Additional Psychological History / Comment(s): Pt resides with his spouse of 38 yrs. He has home oxygen which he wears at 3-3.5L/NC. He has a nebulizer. Smoking Status: Former smoker Past Alcohol Use History: Daily Additional Past Alcohol Use History / Comment(s): Patient smoked 2 packs per day for 40+ years. He quit 6 years ago. He denies any illicit drug use or marijuana use. He drinks 2 beers per day but none since previous admission and December. 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 Mother Family Medical History: Cancer, CVA/TIA, Dementia, Diabetes Mellitus Additional Family Medical History / Comment(s): Mother is 88yrs old with history of dementia and colon cancer. Sister(s) Additional Family Medical History / Comment(s): Patient 3 sons with no major medical problems. General Exam - General Exam Comments Initial Comments: GENERAL: Patient is well-developed and well-nourished. Patient is nontoxic and well- hydrated and is in mild distress. ENT: Neck is soft and supple. No significant lymphadenopathy is noted. Oropharynx is clear. Moist mucous membranes. Neck has full range of motion without eliciting any pain. EYES: The sclera were anicteric and conjunctiva were pink and moist. Extraocular movements were intact and pupils were equal round and reactive to light. Eyelids were unremarkable. PULMONARY: Diminished breath sounds and crackles in the right base CARDIOVASCULAR: There is a regular rate and rhythm without any murmurs gallops or rubs. ABDOMEN: Soft and nontender with normal bowel sounds. SKIN: Skin is clear with no lesions or rashes and otherwise unremarkable. NEUROLOGIC: Patient is alert and oriented x3. Cranial nerves II through XII are grossly intact. Motor and sensory are also intact. Normal speech, volume and content. Symmetrical smile. MUSCULOSKELETAL: Normal extremities with adequate strength and full range of motion. LYMPHATICS: No significant lymphadenopathy is noted PSYCHIATRIC: Normal psychiatric evaluation. Course Vital Signs 08/04/21 08/04/21 13:54 14:24 Temperature 98.4 F 98 F Pulse Rate 102 H 93 Respiratory 24 18 Rate Blood Pressure 118/75 103/74 O2 Sat by Pulse 88 L 93 L Oximetry Medical Decision Making - Medical Decision Making EKG shows sinus rhythm at 97 bpm [place] interval 104 QRS is 82 QT interval 370 QTC is 469. Patient's EKG shows no ST segment elevation or depression. Chest x-ray shows fibrosis but no acute changes noted. Patient is prophylactic started on antibiotics. Patient had a breathing treatment emergency department as well as steroids. I spoke with Dr. Holbrook she agreed to admit the patient admitted the patient wrote admitting orders. - Lab Data Result diagrams: 08/04/21 14:01 08/04/21 14:01 Lab Results 08/04/21 08/04/21 08/04/21 Range/Units 14:01 14: 14:01 WBC 17.3 H (3.8-10.6) k/uL RBC 4.34 (4.30-5.90) m/uL Hgb 13.4 (13.0-17.5) gm/dL Hct 40.2 (39.0-53.0) % MCV 92.6 (80.0-100.0) fL MCH 30.9 (25.0-35.0) pg MCHC 33.4 (31.0-37.0) g/dL RDW 17.0 H (11.5-15.5) % Plt Count 343 (150-450) k/uL MPV 7.4 Neutrophils % 93 % Lymphocytes % 3 % Monocytes % 4 % Eosinophils % 0 % Basophils % 0 % Neutrophils # 16.0 H (1.3-7.7) k/uL Lymphocytes # 0.4 L (1.0-4.8) k/uL Monocytes # 0.8 (0-1.0) k/uL Eosinophils # 0.0 (0-0.7) k/uL Basophils # 0.0 (0-0.2) k/uL Anisocytosis Slight Sodium 129 L (137-145) mmol/L Potassium 4.6 (3.5-5.1) mmol/L Chloride 96 L (98-107) mmol/L Carbon Dioxide 29 (22-30) mmol/L Anion Gap 4 mmol/L BUN 26 H (9-20) mg/dL Creatinine 0.55 L (0.66-1.25) mg/dL Est GFR (CKD-EPI)AfAm >90 (>60 ml/min/1.73 sqM) Est GFR (CKD-EPI)NonAf >90 (>60 ml/min/1.73 sqM) Glucose 118 H (74-99) mg/dL Plasma Lactic Acid Steevn 1.4 (0.7-2.0) mmol/L Calcium 8.3 L (8.4-10.2) mg/dL Magnesium 2.1 (1.6-2.3) mg/dL Total Bilirubin 1.1 (0.2-1.3) mg/dL AST 43 (17-59) U/L ALT 37 (4-49) U/L Alkaline Phosphatase 151 H (38-126) U/L Troponin I (0.000-0.034) ng/mL Total Protein 6.6 (6.3-8.2) g/dL Albumin 3.6 (3.5-5.0) g/dL Coronavirus (PCR) (Not Detectd) 08/04/21 08/04/21 Range/Units 14:01 14:01 WBC (3.8-10.6) k/uL RBC (4.30-5.90) m/uL Hgb (13.0-17.5) gm/dL Hct (39.0-53.0) % MCV (80.0-100.0) fL MCH (25.0-35.0) pg MCHC (31.0-37.0) g/dL RDW (11.5-15.5) % Plt Count (150-450) k/uL MPV Neutrophils % % Lymphocytes % % Monocytes % % Eosinophils % % Basophils % % Neutrophils # (1.3-7.7) k/uL Lymphocytes # (1.0-4.8) k/uL Monocytes # (0-1.0) k/uL Eosinophils # (0-0.7) k/uL Basophils # (0-0.2) k/uL Anisocytosis Sodium (137-145) mmol/L Potassium (3.5-5.1) mmol/L Chloride (98-107) mmol/L Carbon Dioxide (22-30) mmol/L Anion Gap mmol/L BUN (9-20) mg/dL Creatinine (0.66-1.25) mg/dL Est GFR (CKD-EPI)AfAm (>60 ml/min/1.73 sqM) Est GFR (CKD-EPI)NonAf (>60 ml/min/1.73 sqM) Glucose (74-99) mg/dL Plasma Lactic Acid Steven (0.7-2.0) mmol/L Calcium (8.4-10.2) mg/dL Magnesium (1.6-2.3) mg/dL Total Bilirubin (0.2-1.3) mg/dL AST (17-59) U/L ALT (4-49) U/L Alkaline Phosphatase (38-126) U/L Troponin I 0.017 (0.000-0.034) ng/mL Total Protein (6.3-8.2) g/dL Albumin (3.5-5.0) g/dL Coronavirus (PCR) Not Detected (Not Detectd) Disposition Clinical Impression: Acute exacerbation of chronic obstructive pulmonary disease (COPD), H yponatremia, Dehydration Disposition: ADMITTED IP TO THIS HOSP Referrals: Razia Holbrook MD [Primary Care Provider] - 1-2 days Time of Disposition: 15:09
[2021-08-04 14:25] LABS: Anisocytosis Slight; Basophils % (A) 0 %; Eosinophils % (A) 0 %; HCT 40.2 % (39.0-53.0); HGB 13.4 gm/dL (13.0-17.5); Lymphocytes # (A) 0.4 k/uL (1.0-4.8); Lymphocytes % (A) 3 %; MCH 30.9 pg (25.0-35.0); MCHC 33.4 g/dL (31.0-37.0); MCV 92.6 fL (80.0-100.0); Mean Platelet Volume 7.4; Monocytes # (A) 0.8 k/uL (0-1.0); Monocytes % (A) 4 %; Neutrophils % (A) 93 %; Platelet Count 343 k/uL (150-450); RBC 4.34 m/uL (4.30-5.90); WBC 17.3 k/uL (3.8-10.6)
[2021-08-04 14:35] LABS: ALT 37 U/L (4-49); AST 43 U/L (17-59); African American GFR (CKD) >90 (>60 ml/min/1.73 sqM); Albumin 3.6 g/dL (3.5-5.0); Alkaline Phosphatase 151 U/L (38-126); Anion Gap 4 mmol/L; Blood Urea Nitrogen 26 mg/dL (9-20); Calcium 8.3 mg/dL (8.4-10.2); Carbon Dioxide 29 mmol/L (22-30); Chloride 96 mmol/L (98-107); Glucose 118 mg/dL (74-99); Magnesium 2.1 mg/dL (1.6-2.3); Non-African American GFR(CKD) >90 (>60 ml/min/1.73 sqM); Sodium 129 mmol/L (137-145); Total Bilirubin 1.1 mg/dL (0.2-1.3); Total Protein 6.6 g/dL (6.3-8.2)
[2021-08-04 14:38] LABS: Prothrombin Time 10.3 sec (9.0-12.0)
[2021-08-04 14:53] LABS: Potassium 4.6 mmol/L (3.5-5.1)
--- NOTE | 2021-08-04 14:56 | XR ---
EXAMINATION TYPE: XR chest 2V DATE OF EXAM: 08/04/2021 COMPARISON: Chest x-ray July 23, 2021 and older studies. HISTORY: Difficulty in breathing. TECHNIQUE: Frontal and lateral views of the chest are obtained. FINDINGS: Advanced underlying emphysematous and pulmonary fibrotic changes bilaterally are redemonst rated. No pleural effusion or pneumothorax seen. An azygos lobe/fissure is redemonstrated. Right-side d volume loss redemonstrated. Cardiac silhouette size stable and within normal limits. The osseous s tructures remains demineralized. IMPRESSION: Advanced chronic emphysematous and pulmonary fibrotic changes without new acute pulmonar y process clearly seen.
[2021-08-04 15:13] LABS: Partial Thromboplastin Time 21.1 sec (22.0-30.0)
--- NOTE | 2021-08-04 17:51 | P.CNPUL ---
History of Present Illness Consult date: 08/04/21 Reason for consult: dyspnea, COPD, pulmonary fibrosis History of present illness: 70-year-old male patient was presented to the hospital because of worsening shortness of breath. Symptoms started approximately a week ago and worse over the past few days. According to the patient, he has history of COPD and pulmonary fibrosis. Based on the previous pulmonary function test, the patient's FEV1 has been order of 46% of predicted and FVC has been order of 72% of predicted and this is based on a spirometer this was done 2017. The patient has been steroid dependent for many years. He has history of rheumatoid arthritis and has been on immunosuppressive therapy in the past in the form of Humira injections. He has not taken Humira for now. The patient has chronic hypoxic respiratory failure and typically is on 3-1/2 L of oxygen by nasal cannula. He has been hospitalized in the past for septic shock and he has a previous history of duodenal ulcer perforation was repaired surgically. He has obstructive sleep apnea and his nontolerant to CPAP therapy. During this current admission, the patient was found to have a white cell count 17.3. The patient had normal coagulation profile. Sodium level is at 129, BUN was 25 with a creatinine of 0.5, the COVID 19 testing was negative. LFTs were essentially within normal limits. The chest x-ray showed advanced COPD with chronic pulmonary fibrotic changes without any acute process identified. Based on his worsening shortness of breath, the patient was started on IV Solu-Medrol, hospitalized for an acute COPD exacerbation. Start on Levaquin and immersed department and started on DuoNeb neb regimen [id number]. Review of Systems Constitutional: Reports fatigue, Reports fever, Reports lethargy, Reports poor appetite, Reports weakness Eyes: denies blurred vision, denies bulging eye, denies decreased vision Ears: deny: decreased hearing, ear discharge, earache, tinnitus Ears, nose, mouth and throat: Denies headache, Denies sore throat Cardiovascular: Reports decreased exercise tolerance, Reports dyspnea on exertion, Reports edema, Reports shortness of breath Respiratory: Reports dyspnea, Reports home oxygen, Reports wheezing, reports chronic shortness of breath and inugh. Gastrointestinal: Reports abdominal pain, Reports change in bowel habits, R eports dyspepsia, Reports indigestion, Reports loss of appetite, Reports nausea Genitourinary: Reports as per HPI Musculoskeletal: Reports as per HPI Musculoskeletal: bilateral: ankle swelling, absent: ankle pain, ankle stiffness Integumentary: Denies pruritus, Denies rash Neurological: Reports as per HPI, Reports weakness Psychiatric: Reports as per HPI Endocrine: Reports fatigue Hematologic/Lymphatic: Reports as per HPI Allergic/Immunologic: Reports as per Past Medical History Past Medical History: Heart Failure, COPD, Hyperlipidemia, Osteoarthritis (OA), Pneumonia, Rheumatoid Arthritis (RA), Sleep Apnea/CPAP/BIPAP Additional Past Medical History / Comment(s): COPD, chronic hypoxic respiratory failure previous history of pneumoperitoneum related to a perforated duodenal ulcer, repair of an umbilical hernia, chronic back pain, back stenosis. History of Any Multi-Drug Resistant Organisms: None Reported Past Surgical History: Orthopedic Surgery Additional Past Surgical History / Comment(s): colonoscopy, repair of a perf orated duodenal ulcer and repair of an incarcerated umbilical hernia Past Anesthesia/Blood Transfusion Reactions: No Reported Reaction Past Psychological History: Anxiety, Depression Additional Psychological History / Comment(s): Pt resides with his spouse of 38 yrs. He has home oxygen which he wears at 3-3.5L/NC. He has a nebulizer. Smoking Status: Former smoker Past Alcohol Use History: Daily Additional Past Alcohol Use History / Comment(s): Patient smoked 2 packs per day for 40+ years. He quit 6 years ago. He denies any illicit drug use or marijuana use. He drinks 2 beers per day but none since previous admission and December. 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 Mother Family Medical History: Cancer, CVA/TIA, Dementia, Diabetes Mellitus Additional Family Medical History / Comment(s): Mother is 88yrs old with history of dementia and colon cancer. Sister(s) Additional Family Medical History / Comment(s): Patient 3 sons with no major medical problems. Medications and Allergies Home Medications Medication Instructions Recorded Confirmed Type Metoprolol Succinate [Toprol XL] 25 mg PO DAILY 01/12/20 08/04/21 History Sertraline [Zoloft] 150 mg PO DAILY 01/12/20 08/04/21 History Amitriptyline HCl [Elavil] 10 mg PO HS 12/06/20 08/04/21 History Celecoxib [CeleBREX] 200 mg PO DAILY 12/06/20 08/04/21 History Ascorbic Acid [Vitamin C] 1,000 mg PO DAILY 12/10/20 08/04/21 History Ipratropium-Albuterol Nebulize 3 ml INHALATION RT-QID 12/10/20 08/04/21 History [Duoneb 0.5 mg-3 mg/3 ml Soln] Clopidogrel [Plavix] 75 mg PO DAILY #14 tab 12/13/20 08/04/21 Rx Budesonide [Pulmicort] 0.5 mg INHALATION RT-BID 07/10/21 08/04/21 History Fluticasone Nasal [place] [Flonase 2 spr EA NOSTRIL DAILY 07/10/21 08/04/21 History Nasal [place]] Furosemide [Lasix] 40 mg PO DAILY #28 tab 07/12/21 08/04/21 Rx Thiamine [Vitamin B-1] 100 mg PO BID-W/MEALS tab 07/12/21 08/04/21 Rx Acetaminophen [Tylenol] 650 mg PO Q6H PRN 07/23/21 08/04/21 History Atorvastatin [Lipitor] 40 mg PO HS 07/23/21 08/04/21 History Benzonatate [Tessalon Perles] 200 mg PO TID PRN 07/23/21 08/04/21 History Calcium Carbonate 1,000 mg PO Q8H PRN 07/23/21 08/04/21 History Multivitamins, Thera [Multivitamin 1 tab PO DAILY 07/23/21 08/04/21 History (formulary)] Omeprazole 20 mg PO DAILY 07/23/21 08/04/21 History HYDROcodone/APAP 10-325MG [[place] 1 tab PO Q8HR PRN 3 Days #9 tab 07/27/21 08/04/21 Rx 10-325] predniSONE See Taper PO DAILY 08/04/21 08/04/21 History Allergies Allergy/AdvReac Type Severity Reaction Status Date / Time amoxicillin AdvReac Nausea & Verified 08/04/21 15:41 Vomiting Physical Exam Vitals: Vital Signs Temp Pulse Resp BP Pulse Ox 08/04/21 16:10 91 L 08/04/21 16:06 97.6 F 97 18 110/69 88 L 08/04/21 14:24 98 F 93 18 103/74 93 L 08/04/21 13:54 98.4 F 102 H 24 118/75 88 L Intake and Output 08/04/21 08/04/21 08/04/21 06:59 14:59 22:59 Other: Weight 61.235 kg Appearance in mild degree of respirator distress and the patient is currently on oxygen at 4 L to maintain saturation above 90%. Head exam was generally normal. There was no scleral icterus or corneal arcus. Mucous membranes were moist. Neck was supple and without jugular venous distension, thyromegaly, or carotid bruits. Carotids were easily palpable bilaterally. There was no adenopathy. The patient is a Mallampati class IV was significant crowding of posterior oropharynx Lungs are diminished bilaterally and the patient has coarse crackles in lung bases and these are Velcro crackles typical of underlying pulmonary fibrosis Heart sounds are tachycardic, Cardiac exam revealed the PMI to be normally situated and sized. The rhythm was regular and no extrasystoles were noted during several minutes of auscultation. The first and second heart sounds were normal and physiologic splitting of the second heart sound was noted. There were no murmurs, rubs, clicks, or gallops. Abdominal exam revealed normal bowel sounds. The abdomen was soft, non-tender, and without masses, organomegaly, or appreciable enlargement of the abdominal aorta. scars of previous abdominal surgery over the anterior abdominal wall, and the patient also has a large anterior abdominal wall hernia which is easily reducible and there is no direct tenderness or rebound tensile guarding. Extremities revealed +1 edema lower diminished bilaterally especially in the left lower extremity. Pulses are diminished. There is no cyanosis or clubbing. Chronic joint deformities related to RA Neurologic the patient is awake and alert. Following commands and answering questions appropriately. Focal neurological deficit. Examination of the skin revealed no evidence of significant rashes, suspicious appearing nevi or other concerning lesions. Results - Laboratory Findings CBC and BMP: 08/04/21 14:01 08/04/21 14:01 PT/INR, D-dimer PT 10.3 sec (9.0-12.0) 08/04/21 14:01 INR 1.0 (<1.2) 08/04/21 14:01 Abnormal lab findings: Abnormal Labs 08/04/21 08/04/21 08/04/21 14:01 14:01 14:01 WBC 17.3 H RDW 17.0 H Neutrophils # 16.0 H Lymphocytes # 0.4 L APTT 21.1 L Sodium 129 L Chloride 96 L BUN 26 H Creatinine 0.55 L Glucose 118 H Calcium 8.3 L Alkaline Phosphatase 151 H Assessment and Plan Plan: 1 acute exacerbation of chronic COPD/pulmonary fibrosis. The patient was treated with antibiotics and steroids on outpatient basis with failure to response and the patient was hospitalized. Pro-calcitonin level is low. Covid 19 testing is negative for now and the patient is currently on 4 L about 2 by nasal cannula. The patient was started on a combination of bronchodilators, steroids and empiric antibiotic coverage with Levaquin. 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 5 history of duodenal ulcer perforation requiring surgical repair and repair of incarcerated umbilical hernia, with subsequent development of intraperitoneal/abdominal abscess requiring incision and drainage and prolonged antibiotic course 7 rheumatoid arthritis, with secondary chronic joint deformities related to rheu matoid arthritis 8 obstructive sleep apnea not receiving any CPAP therapy at this point in time 9 chronic back pain 10 hyperlipidemia 11 osteoarthritis 12 mild leukocytosis plan Continue current treatment Continue bronchodilators and steroids Continue empiric antibiotic coverage with Levaquin Titrate oxygen flow to maintain saturation above 90% Lovenox for undergone subcu for DVT prophylaxis Reconcile home medications
[2021-08-04] MEDS: methylPREDNISolone SOD SUCCI 125 MG/2 ML VIAL IV SCH ×2 (18:22→23:38)
[2021-08-04] MEDS ORDERED: BENZONATATE 100 MG CAP PO PRN (20:42)
--- NOTE | 2021-08-04 20:45 | P.HPIM ---
History of Present Illness H&P Date: 08/04/21 Chief Complaint: Shortness of breath, productive cough, difficulty of clearing up sputum This is a pleasant 70-year-old gentleman known to my practice and pulmonary Dr. Mireles. He has underlying history of advanced steroid-dependent COPD, with chronic hypoxemic respiratory failure on 4 L O2 nasal cannula at home., obstructive sleep apnea, unable to tolerate CPAP, rheumatid arthritis, hyperlipidemia, chronic bronchitis, with prior history of Pseudomonas in the sputum, that was previously thought to be colonization. He also had a history of perforated duodenal ulcer, status post explore lap, with repair of perforated duodenal ulcer, and incarcerated umbilical hernia. Known FVC of 72%, an FEV1 of 46%. Echocardiogram as of 12/07/2020, EF of 55-60%, with concentric LVH, mild MR, trace AR, mild TR, moderate pulmonary hypertension. Presents to the emergency room secondary to shortness of breath, and difficulty of breathing, worse than baseline. Patient denies any fever or chills, no melena hematochezia, no aspiration. Patient has increasing difficulties with his walker for ambulation,. His last admission at [facility] was 07/23/2021, admitted and discharged 07/27/2021, secondary to COPD exacerbation. At that time he required 9L high flow O2, and was covid negative at that time, and was discharged to home with his baseline 4 L oral nasal cannula, with oral long-term taper of prednisone, she did not require oral antibiotics on discharge at that time. Sputum culture, normal respiratory rod, 07/28/2021. Computed tomography scan, 07/23/2021, shows advanced pulmonary fibrosis, chronic pulmonary infiltrates similar to old exam, pleural thickening at the lung bases consistent with scarring, not significantly different from previous CT, Negative for PE, there is stable thoracic kyphotic deformities and mild thoracic compression fractures. Which was thought to be old. T7, T6, and T5 vertebral He presents to the emergency room, presents with above shortness of breath, productive cough, difficulty of expectorating sputum increasing shortness of breath on exertion, currently with COPD exacerbation, coronary virus PCR is negative, serum sodium 129, creatinine of 0.55, INR of 1.0 WBC count of 17.3 chest x-ray shows advanced COPD, with chronic pulmonary fibrosis, without any acute pulmonary process is seen in consult for made with Dr. Mireles, pulmonary medicine, started on IV Levaquin, empiric treatment secondary to leukocytosis, and nebulized treatments [id number], Pulmicort, and IV Solu-Medrol O2 supplementation, and was admitted to the medical floor Review of Systems Constitutional: Reports as per HPI, Reports anorexia, Reports chronic pain, Reports fatigue, Denies fever, Denies lethargy, Denies malaise Ears, nose, mouth and throat: Reports as per HPI, Denies epistaxis, Denies mouth pain, Denies nasal congestion, Denies odynophagia, Denies sinus pain, Denies swelling in mouth, Denies swelling in throat, Denies voice changes Cardiovascular: Reports as per HPI, Reports decreased exercise tolerance, Reports dyspnea on exertion, Reports orthopnea, Reports shortness of breath, Denies chest pain, Denies edema, Denies leg edema, Denies palpitations, Denies rapid heart beat Respiratory: Reports as per HPI, Reports cough, Reports cough with sputum, Reports dyspnea, Reports home oxygen, Reports respiratory infections, Reports wheezing Gastrointestinal: Reports as per HPI, Denies abdominal pain, Denies belching, Denies bloating, Denies BRBPR, Denies change in bowel habits, Denies coffee ground emesis, Denies constipation, Denies diarrhea, Denies dyspepsia, Denies early satiety, Denies excessive gas, Denies heartburn, Denies hematemesis, Denies hematochezia, Denies indigestion, Denies jaundice, Denies lactose intolerance, Denies loss of appetite, Denies melena, Denies nausea, Denies vomiting Genitourinary: Reports as per HPI, Denies urinary hesitancy, Denies urinary retention Musculoskeletal: Reports as per HPI, Denies arm numbness/tingling, Denies atrophy, Denies fractures, Denies frequent falls, Denies gait dysfunction, Denies hot joints, Denies leg numbness/tingling, Denies limitation of motion, Denies loss of height, Denies low back pain, Denies morning stiffness, Denies muscle cramps, Denies muscle weakness, Denies myalgias, Denies neck pain, Denies neck stiffness, Denies prior amputations, Denies redness of joints, Denies shooting arm pain, Denies shooting leg pain Integumentary: Reports as per HPI Neurological: Reports as per HPI Psychiatric: Reports as per HPI, Reports anxiety Endocrine: Reports as per HPI, Denies cold intolerance, Denies deepening of the voice, Denies excessive sweating, Denies excessive thirst, Denies fatigue, Denies flushing, Denies heat intolerance, Denies high blood sugars, Denies increase in ring/shoe/hat size, Denies low blood sugars, Denies nocturia, Denies palpitations, Denies polydipsia, Denies polyphagia, Denies polyuria, Denies proptosis, Denies recent glucocorticoid use, Denies thyroid mass, Denies weight change Hematologic/Lymphatic: Reports as per HPI Allergic/Immunologic: Reports as per HPI Past Medical History Past Medical History: Heart Failure, COPD, Hyperlipidemia, Osteoarthritis (OA), Pneumonia, Rheumatoid Arthritis (RA), Sleep Apnea/CPAP/BIPAP Additional Past Medical History / Comment(s): COPD, chronic hypoxic respiratory failure previous history of pneumoperitoneum related to a perforated duodenal ulcer, repair of an umbilical hernia, chronic back pain, back stenosis. History of Any Multi-Drug Resistant Organisms: None Reported Past Surgical History: Orthopedic Surgery Additional Past Surgical History / Comment(s): colonoscopy, repair of a perfora sabina duodenal ulcer and repair of an incarcerated umbilical hernia Past Anesthesia/Blood Transfusion Reactions: No Reported Reaction Past Psychological History: Anxiety, Depression Additional Psychological History / Comment(s): Pt resides with his spouse of 38 yrs. He has home oxygen which he wears at 3-3.5L/NC. He has a nebulizer. Smoking Status: Former smoker Past Alcohol Use History: Daily Additional Past Alcohol Use History / Comment(s): Patient smoked 2 packs per day for 40+ years. He quit 6 years ago. He denies any illicit drug use or marijuana use. He drinks 2 beers per day but none since previous admission and December. 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 Mother Family Medical History: Cancer, CVA/TIA, Dementia, Diabetes Mellitus Additional Family Medical History / Comment(s): Mother is 88yrs old with history of dementia and colon cancer. Sister(s) Additional Family Medical History / Comment(s): Patient 3 sons with no major medical problems. Medications and Allergies Home Medications Medication Instructions Recorded Confirmed Type Metoprolol Succinate [Toprol XL] 25 mg PO DAILY 01/12/20 08/04/21 History Sertraline [Zoloft] 150 mg PO DAILY 01/12/20 08/04/21 History Amitriptyline HCl [Elavil] 10 mg PO HS 12/06/20 08/04/21 History Celecoxib [CeleBREX] 200 mg PO DAILY 12/06/20 08/04/21 History Ascorbic Acid [Vitamin C] 1,000 mg PO DAILY 12/10/20 08/04/21 History Ipratropium-Albuterol Nebulize 3 ml INHALATION RT-QID 12/10/20 08/04/21 History [Duoneb 0.5 mg-3 mg/3 ml Soln] Clopidogrel [Plavix] 75 mg PO DAILY #14 tab 12/13/20 08/04/21 Rx Budesonide [Pulmicort] 0.5 mg INHALATION RT-BID 07/10/21 08/04/21 History Fluticasone Nasal Lamont [Flonase 2 spr EA NOSTRIL DAILY 07/10/21 08/04/21 History Nasal Lamont] Furosemide [Lasix] 40 mg PO DAILY #28 tab 07/12/21 08/04/21 Rx Thiamine [Vitamin B-1] 100 mg PO BID-W/MEALS tab 07/12/21 08/04/21 Rx Acetaminophen [Tylenol] 650 mg PO Q6H PRN 07/23/21 08/04/21 History Atorvastatin [Lipitor] 40 mg PO HS 07/23/21 08/04/21 History Benzonatate [Tessalon Perles] 200 mg PO TID PRN 07/23/21 08/04/21 History Calcium Carbonate 1,000 mg PO Q8H PRN 07/23/21 08/04/21 History Multivitamins, Thera [Multivitamin 1 tab PO DAILY 07/23/21 08/04/21 History (formulary)] Omeprazole 20 mg PO DAILY 07/23/21 08/04/21 History HYDROcodone/APAP 10-325MG [Ashby 1 tab PO Q8HR PRN 3 Days #9 tab 07/27/21 08/04/21 Rx 10-325] predniSONE See Taper PO DAILY 08/04/21 08/04/21 History Allergies Allergy/AdvReac Type Severity Reaction Status Date / Time amoxicillin AdvReac Nausea & Verified 08/04/21 15:41 Vomiting Physical Exam Vitals: Vital Signs Temp Pulse Pulse Resp BP BP Pulse Ox 08/04/21 17:09 97.8 F 94 18 105/59 98 08/04/21 16:10 91 L 08/04/21 16:06 97.6 F 97 18 110/69 88 L 08/04/21 14:24 98 F 93 18 103/74 93 L 08/04/21 13:54 98.4 F 102 H 24 118/75 88 L Intake and Output 08/04/21 08/04/21 08/04/21 06:59 14:59 22:59 Other: Voiding Method Urinal Diaper Incontinent Weight 61.235 kg 61.235 kg - Constitutional General appearance: cooperative, no acute distress - EENT Eyes: anicteric sclerae, EOMI, dentition normal, normal appearance ENT: NA/AT, normal oropharynx - Neck Neck: normal ROM - Respiratory Respiratory: bilateral: diminished, wheezing, negative: prolonged expiration - Cardiovascular Rhythm: regular Heart sounds: normal: S1, S2 Abnormal Heart Sounds: no systolic murmur, no diastolic murmur, no rub, no S3 Gallop, no S4 Gallop, no click, no other - Gastrointestinal General gastrointestinal: normal bowel sounds, soft - Integumentary Integumentary: decreased turgor, normal - Neurologic Neurologic: CNII-XII intact - Musculoskeletal Musculoskeletal: gait normal, strength equal bilaterally - Psychiatric Psychiatric: A&O x's 3, appropriate affect, intact judgment & insight Results CBC & Chem 7: 08/04/21 14:01 08/04/21 14:01 Labs: Abnormal Lab Results - Last 24 Hours (Table) 08/04/21 08/04/21 08/04/21 Range/Units 14:01 14:01 14:01 WBC 17.3 H (3.8-10.6) k/uL RDW 17.0 H (11.5-15.5) % Neutrophils # 16.0 H (1.3-7.7) k/uL Lymphocytes # 0.4 L (1.0-4.8) k/uL APTT 21.1 L (22.0-30.0) sec Sodium 129 L (137-145) mmol/L Chloride 96 L (98-107) mmol/L BUN 26 H (9-20) mg/dL Creatinine 0.55 L (0.66-1.25) mg/dL Glucose 118 H (74-99) mg/dL Calcium 8.3 L (8.4-10.2) mg/dL Alkaline Phosphatase 151 H (38-126) U/L Laboratory Results WBC 17.3 k/uL (3.8-10.6) H 08/04/21 14:01 RBC 4.34 m/uL (4.30-5.90) 08/04/21 14:01 Hgb 13.4 gm/dL (13.0-17.5) 08/04/21 14:01 Hct 40.2 % (39.0-53.0) 08/04/21 14:01 MCV 92.6 fL (80.0-100.0) 08/04/21 14:01 MCH 30.9 pg (25.0-35.0) 08/04/21 14:01 MCHC 33.4 g/dL (31.0-37.0) 08/04/21 14:01 RDW 17.0 % (11.5-15.5) H 08/04/21 14:01 Plt Count 343 k/uL (150-450) 08/04/21 14:01 MPV 7.4 08/04/21 14:01 Neutrophils % 93 % 08/04/21 14:01 Lymphocytes % 3 % 08/04/21 14:01 Monocytes % 4 % 08/04/21 14:01 Eosinophils % 0 % 08/04/21 14:01 Basophils % 0 % 08/04/21 14:01 Neutrophils # 16.0 k/uL (1.3-7.7) H 08/04/21 14:01 Lymphocytes # 0.4 k/uL (1.0-4.8) L 08/04/21 14:01 Monocytes # 0.8 k/uL (0-1.0) 08/04/21 14:01 Eosinophils # 0.0 k/uL (0-0.7) 08/04/21 14:01 Basophils # 0.0 k/uL (0-0.2) 08/04/21 14:01 Anisocytosis Slight 08/04/21 14:01 PT 10.3 sec (9.0-12.0) 08/04/21 14:01 INR 1.0 (<1.2) 08/04/21 14:01 APTT 21.1 sec (22.0-30.0) L 08/04/21 14:01 Sodium 129 mmol/L (137-145) L 08/04/21 14:01 Potassium 4.6 mmol/L (3.5-5.1) 08/04/21 14:01 Chloride 96 mmol/L (98-107) L 08/04/21 14:01 Carbon Dioxide 29 mmol/L (22-30) 08/04/21 14:01 Anion Gap 4 mmol/L 08/04/21 14:01 BUN 26 mg/dL (9-20) H 08/04/21 14:01 Creatinine 0.55 mg/dL (0.66-1.25) L 08/04/21 14:01 Est GFR (CKD-EPI)AfAm >90 (>60 ml/min/1.73 sqM) 08/04/21 14:01 Est GFR (CKD-EPI)NonAf >90 (>60 ml/min/1.73 sqM) 08/04/21 14:01 Glucose 118 mg/dL (74-99) H 08/04/21 14:01 Plasma Lactic Acid Steven 1.4 mmol/L (0.7-2.0) 08/04/21 14:01 Calcium 8.3 mg/dL (8.4-10.2) L 08/04/21 14:01 Magnesium 2.1 mg/dL (1.6-2.3) 08/04/21 14:01 Total Bilirubin 1.1 mg/dL (0.2-1.3) 08/04/21 14:01 AST 43 U/L (17-59) 08/04/21 14:01 ALT 37 U/L (4-49) 08/04/21 14:01 Alkaline Phosphatase 151 U/L (38-126) H 08/04/21 14:01 Troponin I 0.017 ng/mL (0.000-0.034) 08/04/21 14:01 Total Protein 6.6 g/dL (6.3-8.2) 08/04/21 14:01 Albumin 3.6 g/dL (3.5-5.0) 08/04/21 14:01 Coronavirus (PCR) Not Detected (Not Detectd) 08/04/21 14:01 Thrombosis Risk Factor Assmnt - Choose All That Apply Any of the Below Risk Factors Present?: Yes Each Factor Represents 1 point: Abnormal pulmonary function (COPD), Medical pt on bed rest, Serious lung disease incl. pneumonia (< 1month) Other Risk Factors: Yes Each Risk Factor Represents 2 Points: Age 61-74 years, Patient confined to bed Thrombosis Risk Factor Assessment Total Risk Factor Score: 7 Thrombosis Risk Factor Assessment Level: High Risk Assessment and Plan Plan: 1. Acute on chronic hypoxic respiratory failure secondary to COPD exacerbation with extensive pulmonary fibrosis, possible rheumatoid arthritis associated interstitial lung disease. Continue DuoNeb treatments every 4 hours, , increase Pulmicort 1 mg twice daily, Perforomist 20 g twice daily, Mucinex 1200 mg twice daily, empiric IV Levaquin and IV Solu-Medrol 60 mg every 6 hours, sputum culture pro-calcitonin recent CT of the chest was reviewed, negative for PE, 07/23/2021 last admission. Consider discharge with either theophylline, or anoro, 2. End-stage COPD, on chronic prednisone and frequent hospitalization, secondar y to COPD, containing 4 L of O2 at home, decompensated with current exacerbation, requiring IV steroids, IV antibiotic, sputum culture, known to the pulmonary service, Dr. Mireles to see for pulmonary consult 3. Osteoporotic thoracic fractures compression and chronic pain, on chronic opiates, 4. History of duodenal ulceration and GI bleed, with surgical repair, and repair of incarcerated umbilical hernia, with subsequent development of intraperitoneal abscess requiring incision and drainage, and prolonged antibiotic course chronically on PPI, we will discontinue Plavix at this time, no history of heart disease or CVA, no history of stents at risk for bleed specially with ongoing chronic prednisone use 5. Chronic prednisone, with cushingoid features, patient is unable to be without prednisone without decompensating pulmonary status,, 6. Moderate pulmonary hypertension. 7. Hypertension. Continue Toprol-XL 25 mg daily. 8. Rheumatoid arthritis, with polyarthritis, and chronic joint abnormalities stable. On chronic opiates not on disease modifying agents at this time 9. Hyperlipidemia. Continue atorvastatin 40 mg at bedtime. 10. Obstructive sleep apnea unable to tolerate CPAP. 11. Chronic back pain and generalized osteoarthritis. Continue Ashby as needed, gabapentin 300 mg at bedtime 12. History of diastolic CHF, ejection fraction is normal, check for SCREEN TENDER HELPER proBNP 13. Generalized anxiety disorder and recurrent depression. Continue Zoloft 150 mg daily, Elavil 10 mg at bedtime. 14. DVT prophylaxis. Heparin subcu. 15. GI prophylaxis. Continue Protonix daily. 16. Insomnia. Continue Elavil 10 mg at bedtime. 17. Coronavirus PCR is negative DISCHARGE PLAN Home with [facility]. Consult PT and OT.
[2021-08-04] MEDS: ATORVASTATIN 40 MG TAB PO SCH (21:59)
[2021-08-04] MEDS: HYDROcodone/APAP 10-325MG 1 EACH TAB PO PRN (21:59)
[2021-08-04] MEDS: AMITRIPTYLINE HCL 10 MG TAB PO SCH (21:59)
[2021-08-05] MEDS: HYDROcodone/APAP 10-325MG 1 EACH TAB PO PRN ×3 (05:58→23:10)
[2021-08-05] MEDS: methylPREDNISolone SOD SUCCI 125 MG/2 ML VIAL IV SCH ×3 (05:59→17:54)
[2021-08-05 07:40] LABS: Anisocytosis Slight; Basophils % (A) 0 %; Eosinophils % (A) 0 %; HGB 11.5 gm/dL (13.0-17.5); Lymphocytes # (A) 0.7 k/uL (1.0-4.8); Lymphocytes % (A) 7 %; MCH 30.1 pg (25.0-35.0); MCHC 32.8 g/dL (31.0-37.0); MCV 91.8 fL (80.0-100.0); Mean Platelet Volume 7.2; Monocytes # (A) 0.4 k/uL (0-1.0); Monocytes % (A) 4 %; Neutrophils % (A) 90 %; Platelet Count 314 k/uL (150-450); RBC 3.81 m/uL (4.30-5.90); RDW 16.9 % (11.5-15.5); WBC 11.2 k/uL (3.8-10.6)
[2021-08-05] MEDS: FORMOTEROL FUMARATE 20 MCG/2 ML NEBU INHALATION SCH ×2 (07:56→18:56)
[2021-08-05] MEDS: BUDESONIDE 0.5 MG/2 ML NEBU INHALATION SCH ×2 (07:56→18:56)
[2021-08-05] MEDS: LEVOFLOXACIN 500 MG TAB PO SCH (08:39)
[2021-08-05] MEDS: METOPROLOL SUCCINATE (ER) 25 MG TAB.ER.24H PO SCH (08:39)
[2021-08-05] MEDS: PANTOPRAZOLE 40 MG TABLET PO SCH (08:39)
[2021-08-05] MEDS: SERTRALINE 50 MG TAB PO SCH (08:39)
[2021-08-05] MEDS: FUROSEMIDE 40 MG TAB PO SCH (08:39)
[2021-08-05] MEDS ORDERED: CLOPIDOGREL 75 MG TAB PO SCH (09:00)
[2021-08-05] MEDS: FLUTICASONE 50MCG/SPRAY NASAL 16GM EA NOSTRIL SCH (11:37)
[2021-08-05 11:57] LABS: African American GFR (CKD) 138.5 (60.0-200.0); Anion Gap 10.1 mmol/L (10.00-18.00); BUN/Creat Ratio 48.25 Ratio (12.00-20.00); Blood Urea Nitrogen 19.3 mg/dL (9.0-27.0); Calcium 7.7 mg/dL (8.7-10.3); Carbon Dioxide 25.9 mmol/L (20.0-27.5); Non-African American GFR(CKD) 119.5 (60.0-200.0); Potassium 4.2 mmol/L (3.5-5.5)
[2021-08-05 13:21] VITALS: BMI 20.5
--- NOTE | 2021-08-05 14:06 | P.PN ---
Subjective Progress Note Date: 08/05/21 HISTORY OF PRESENT ILLNESS This is a pleasant 70-year-old gentleman known to my practice and pulmonary Dr. Mireles. He has underlying history of advanced steroid-dependent COPD, with chronic hypoxemic respiratory failure on 4 L O2 nasal cannula at home., obstructive sleep apnea, unable to tolerate CPAP, rheumatid arthritis, hyperlipidemia, chronic bronchitis, with prior history of Pseudomonas in the sputum, that was previously thought to be colonization. He also had a history of perforated duodenal ulcer, status post explore lap, with repair of perforated duodenal ulcer, and incarcerated umbilical hernia. Known FVC of 72%, an FEV1 of 46%. Echocardiogram as of 12/07/2020, EF of 55-60%, with concentric LVH, mild MR, trace AR, mild TR, moderate pulmonary hypertension. Presents to the emergency room secondary to shortness of breath, and difficulty of breathing, worse than baseline. Patient denies any fever or chills, no melena hematochezia, no aspiration. Patient has increasing difficulties with his walker for ambulation,. His last admission at [facility] ER was 07/23/2021, admitted and discharged 07/27/2021, secondary to COPD exacerbation. At that time he required 9L high flow O2, and was covid negative at that time, and was discharged to home with his baseline 4 L oral nasal cannula, with oral long-term taper of prednisone, she did not require oral antibiotics on discharge at that time. Sputum culture, normal respiratory rod, 07/28/2021. Computed t omography scan, 07/23/2021, shows advanced pulmonary fibrosis, chronic pulmonary infiltrates similar to old exam, pleural thickening at the lung bases consistent with scarring, not significantly different from previous CT, Negative for PE, there is stable thoracic kyphotic deformities and mild thoracic compression fractures. Which was thought to be old. T7, T6, and T5 vertebral He presents to the emergency room, presents with above shortness of breath, productive cough, difficulty of expectorating sputum increasing shortness of breath on exertion, currently with COPD exacerbation, coronary virus PCR is negative, serum sodium 129, creatinine of 0.55, INR of 1.0 WBC count of 17.3 chest x-ray shows advanced COPD, with chronic pulmonary fibrosis, without any acute pulmonary process is seen in consult for made with Dr. Mireles, pulmonary medicine, started on IV Levaquin, empiric treatment secondary to leukocytosis, and nebulized treatments [id number], Pulmicort, and IV Solu-Medrol O2 supplementation, and was admitted to the medical floor 08/05: Patient has been afebrile, heart rate 90, blood pressure 111/67, pulse ox 92% on 4 L nasal cannula. Repeat blood work reveals WBC 11.2, hemoglobin 11.5 and platelet count 314. Electrolytes normal. Creatinine 0.4. Blood sugar 117. Pro-calcitonin 0.07. Patient has been seen and followed by pulmonary medicine. Patient is anxious to be discharged but instructed him that he will probably be here until Saturday. He is currently on Solu-Medrol 60 mg IV every 6 hours. REVIEW OF SYSTEMS Constitutional: No fever, no chills, no night sweats. No weight change. No weakness, fatigue or lethargy. No daytime sleepiness. EENT: No headache. No blurred vision or double vision, no loss of vision. No loss of Hearing, no ringing in the ears, no dizziness. No nasal drainage or congestion. No epistaxis. No sore throat. Lungs: Reports continued shortness of breath but improving, Reports cough, Reports sputum production. No wheezing. Cardiovascular: No chest pain, no lower extremity edema. No palpitations. No paroxysmal nocturnal dyspnea. No orthopnea. No lightheadedness or dizziness. No syncopal episodes. Abdominal: No abdominal pain. No nausea, vomiting. No diarrhea. No constipation. No bloody or tarry stools.. No loss of appetite. Genitourinary: No dysuria, increased frequency, urgency. No urinary retention. Musculoskeletal: No myalgias. No muscle weakness, no gait dysfunction, no frequent falls. No back pain. No neck pain. Integumentary: No wounds, no lesions. No rash or pruritus. No unusual bruising. Neurologic: No aphasia. No facial droop. No change in mentation. No head injury. No headache. No paralysis. No paresthesia. Psychiatric: No depression. No anxiety. No mood swings. Endocrine: No abnormal blood sugars. No weight change. PHYSICAL EXAMINATION Gen: This is 70-year-old male. Patient is resting in bed and not appear to be in acute respiratory failure. HEENT: Head is atraumatic, normocephalic. Pupils equal, round. Sclerae is anicteric. NECK: Supple. No JVD. No lymphadenopathy. No thyromegaly. LUNGS: Coarse crackles bilaterally. No intercostal retractions. HEART: Regular rate and rhythm. Systolic murmur. ABDOMEN: Soft. Bowel sounds are present. No masses. No tenderness. Large ventral hernia, soft. EXTREMITIES: No pedal edema. No calf tenderness. Dorsalis pedis palpable bilaterally. NEUROLOGICAL: Patient is awake, alert and oriented x3. Cranial nerves 2 through 12 are grossly intact. ASSESSMENT AND PLAN 1. Acute hypoxic respiratory failure secondary to COPD exacerbation with underlying pulmonary fibrosis, possible rheumatoid arthritis associated interstitial lung disease. Continue DuoNeb treatments every 4 hours, Tessalon Perles 200 mg 3 times daily scheduled, Pulmicort 0.5 mg twice daily, Perforomist 20 g twice daily, Levaquin 500 milligrams daily, Solu-Medrol 60 mg IV every 6 hours. 2. Recent hospitalization for possible Right clavicular fracture and fracture of the superior and inferior left pubic ramus, pathologic, stable, no recent falls. 3. Possible tracheobronchitis. Continue Levaquin, Tessalon Perles 200 mg 3 times daily. 4. Chronic hypoxic respiratory failure. Continue oxygen therapy. 5. Advanced COPD with pulmonary fibrosis, steroid dependent and chronic hypoxic and hypercapnic respiratory failure on home O2 at 4 L. continue oxygen therapy. 6. Moderate pulmonary hypertension. 7. Hypertension. Continue Toprol-XL 25 mg daily. 8. Rheumatoid arthritis, stable. 9. Hyperlipidemia. Continue atorvastatin 40 mg at bedtime. 10. Obstructive sleep apnea unable to tolerate CPAP. 11. Chronic back pain and generalized osteoarthritis. Continue Convent as needed, gabapentin 300 mg at bedtime 12. History of perforated duodenal ulcer status post exploratory laparotomy with repair of perforated duodenal ulcer and repair of incarcerated umbilical hernia. 13. Generalized anxiety disorder and recurrent depression. Continue Zoloft 150 mg daily, Elavil 10 mg at bedtime. 14. DVT prophylaxis. Heparin subcu. 15. GI prophylaxis. Continue Protonix daily. 16. Insomnia. Continue Elavil 10 mg at bedtime. DISCHARGE PLAN Home with [facility]. Impression and plan of care have been directed as dictated by the signing physician. [place]ia Salinas nurse practitioner acting as scribe for signing physician. Objective - Vital Signs Vital signs: Vital Signs Temp 98.3 F 08/05/21 05:11 Pulse 86 08/05/21 08:36 Resp 20 08/05/21 05:11 BP 104/63 08/05/21 08:36 Pulse Ox 92 L 08/05/21 05:11 Intake & Output 08/04/21 08/05/21 08/05/21 18:59 06:59 18:59 Intake Total 700 Balance 700 Weight 61.235 kg Intake: Oral 700 Other: Voiding Method Urinal Urinal Urinal Diaper Diaper Diaper Incontinent Incontinent Incontinent # Voids 3 - Labs CBC & Chem 7: 08/05/21 06:57 08/05/21 06:57 Labs: Abnormal Lab Results - Last 24 Hours (Table) 08/04/21 08/04/21 08/04/21 Range/Units 14:01 14:01 14:01 WBC 17.3 H (3.8-10.6) k/uL RBC (4.30-5.90) m/uL Hgb (13.0-17.5) gm/dL Hct (39.0-53.0) % RDW 17.0 H (11.5-15.5) % Neutrophils # 16.0 H (1.3-7.7) k/uL Lymphocytes # 0.4 L (1.0-4.8) k/uL APTT 21.1 L (22.0-30.0) sec Sodium 129 L (137-145) mmol/L Chloride 96 L (98-107) mmol/L BUN 26 H (9-20) mg/dL Creatinine 0.55 L (0.66-1.25) mg/dL Glucose 118 H (74-99) mg/dL Calcium 8.3 L (8.4-10.2) mg/dL Alkaline Phosphatase 151 H (38-126) U/L 08/05/21 Range/Units 06:57 WBC 11.2 H (3.8-10.6) k/uL RBC 3.81 L (4.30-5.90) m/uL Hgb 11.5 L (13.0-17.5) gm/dL Hct 35.0 L (39.0-53.0) % RDW 16.9 H (11.5-15.5) % Neutrophils # 10.0 H (1.3-7.7) k/uL Lymphocytes # 0.7 L (1.0-4.8) k/uL APTT (22.0-30.0) sec Sodium (137-145) mmol/L Chloride (98-107) mmol/L BUN (9-20) mg/dL Creatinine (0.66-1.25) mg/dL Glucose (74-99) mg/dL Calcium (8.4-10.2) mg/dL Alkaline Phosphatase (38-126) U/L
--- NOTE | 2021-08-05 14:42 | P.PN ---
Subjective Progress Note Date: 08/05/21 70-year-old male patient was presented to the hospital because of worsening shortness of breath. Symptoms started approximately a week ago and worse over the past few days. According to the patient, he has history of COPD and pulmonary fibrosis. Based on the previous pulmonary function test, the patien t's FEV1 has been order of 46% of predicted and FVC has been order of 72% of predicted and this is based on a spirometer this was done 2017. The patient has been steroid dependent for many years. He has history of rheumatoid arthritis and has been on immunosuppressive therapy in the past in the form of Humira injections. He has not taken Humira for now. The patient has chronic hypoxic respiratory failure and typically is on 3-1/2 L of oxygen by nasal cannula. He has been hospitalized in the past for septic shock and he has a previous history of duodenal ulcer perforation was repaired surgically. He has obstructive sleep apnea and his nontolerant to CPAP therapy. During this current admission, the patient was found to have a white cell count 17.3. The patient had normal coagulation profile. Sodium level is at 129, BUN was 25 with a creatinine of 0.5, the COVID 19 testing was negative. LFTs were essentially within normal limits. The chest x-ray showed advanced COPD with chronic pulmonary fibrotic changes without any acute process identified. Based on his worsening shortness of breath, the patient was started on IV Solu-Medrol, hospitalized for an acute COPD exacerbation. Start on Levaquin and immersed department and started on DuoNeb neb regimen [id number]. The patient is seen today 08/05/2021 in follow-up on the regular medical floor. He is currently resting in bed. Awake and alert in no acute distress. He still has some shortness of breath with minimal exertion. He is maintaining O2 saturations in the mid 90s on 4 L/m per nasal cannula. His been afebrile. Hemodynamically stable. His main complaint is generalized weakness and generalized aches and pains. White count 11.2. Hemoglobin 11.5. Lymphocytes 0.7. Sodium 135. Potassium 4.2. Creatinine 0.4. Pro-calcitonin 0.07. Mack virus not detected. He is continued on Levaquin, IV Solu-Medrol, DuoNeb inhalations, Pulmicort and Perforomist inhalations, Tessalon Perles. Objective - Vital Signs Vital signs: Vital Signs Temp 97.8 F 08/05/21 11:10 Pulse 86 08/05/21 11:10 Resp 20 08/05/21 11:10 BP 119/75 08/05/21 11:10 Pulse Ox 96 08/05/21 11:10 Intake & Output 08/04/21 08/05/21 08/05/21 18:59 06:59 18:59 Intake Total 700 Balance 700 Weight 61.235 kg 61.235 kg Intake: Oral 700 Other: Voiding Method Urinal Urinal Urinal Diaper Diaper Diaper Incontinent Incontinent Incontinent # Voids 3 1 # Bowel Movements 1 - Exam GENERAL EXAM: Alert, frail, 70-year-old gentleman, on 4 L nasal cannula, fairly comfortable in no apparent distress. HEAD: Normocephalic. EYES: Normal reaction of pupils, equal size. NOSE: Clear with pink turbinates. THROAT: No erythema or exudates. NECK: No masses, no JVD. CHEST: No chest wall deformity. LUNGS: Equal air entry with end expiratory wheeze, few scattered rhonchi, diminished CVS: S1 and S2 normal with no audible murmur, regular rhythm. ABDOMEN: No hepatosplenomegaly, normal bowel sounds, no guarding or rigidity. SPINE: No scoliosis or deformity SKIN: No rash, ecchymosis secondary to chronic steroid use. CENTRAL NERVOUS SYSTEM: No focal deficits, tone is normal in all 4 extremities. EXTREMITIES: There is no peripheral edema. No clubbing, no cyanosis. Peripheral pulses are intact. - Labs CBC & Chem 7: 08/05/21 06:57 08/05/21 06:57 Labs: Abnormal Lab Results - Last 24 Hours (Table) 08/04/21 08/04/21 08/05/21 Range/Units 14:01 14:01 06:57 WBC 11.2 H (3.8-10.6) k/uL RBC 3.81 L (4.30-5.90) m/uL Hgb 11.5 L (13.0-17.5) gm/dL Hct 35.0 L (39.0-53.0) % RDW 16.9 H (11.5-15.5) % Neutrophils # 10.0 H (1.3-7.7) k/uL Lymphocytes # 0.7 L (1.0-4.8) k/uL APTT 21.1 L (22.0-30.0) sec Sodium 129 L (137-145) mmol/L Chloride 96 L (98-107) mmol/L BUN 26 H (9-20) mg/dL Creatinine 0.55 L (0.66-1.25) mg/dL BUN/Creatinine Ratio (12.00-20.00) Ratio Glucose 118 H (74-99) mg/dL Calcium 8.3 L (8.4-10.2) mg/dL Alkaline Phosphatase 151 H (38-126) U/L 08/05/21 Range/Units 06:57 WBC (3.8-10.6) k/uL RBC (4.30-5.90) m/uL Hgb (13.0-17.5) gm/dL Hct (39.0-53.0) % RDW (11.5-15.5) % Neutrophils # (1.3-7.7) k/uL Lymphocytes # (1.0-4.8) k/uL APTT (22.0-30.0) sec Sodium (137-145) mmol/L Chloride (98-107) mmol/L BUN (9-20) mg/dL Creatinine 0.4 L (0.66-1.25) mg/dL BUN/Creatinine Ratio 48.25 H (12.00-20.00) Ratio Glucose 117 H (74-99) mg/dL Calcium 7.7 L (8.4-10.2) mg/dL Alkaline Phosphatase (38-126) U/L Assessment and Plan Assessment: 1 acute exacerbation of chronic COPD/pulmonary fibrosis. The patient was treated with antibiotics and steroids on outpatient basis with failure to response and the patient was hospitalized. Pro-calcitonin level is low. Covid 19 testing is negative for now and the patient is currently on 4 L about 2 by nasal cannula. The patient was started on a combination of bronchodilators, steroids and empiric antibiotic coverage with Levaquin. 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 5 history of duodenal ulcer perforation requiring surgical repair and repair of incarcerated umbilical hernia, with subsequent development of intra peritoneal/abdominal abscess requiring incision and drainage and prolonged antibiotic course 7 rheumatoid arthritis, with secondary chronic joint deformities related to rheumatoid arthritis 8 obstructive sleep apnea not receiving any CPAP therapy at this point in time 9 chronic back pain 10 hyperlipidemia 11 osteoarthritis 12 mild leukocytosis plan: The patient was seen and evaluated Not much improvement today compared to yesterday Continue the current treatment plan We will continue to follow
[2021-08-05] MEDS: IPRATROPIUM-ALBUTEROL 3 ML NEB INHALATION PRN (18:56)
[2021-08-05] MEDS: AMITRIPTYLINE HCL 10 MG TAB PO SCH (19:34)
[2021-08-05] MEDS: ACETAMINOPHEN TAB 325 MG TAB PO PRN (19:34)
[2021-08-05] MEDS: ATORVASTATIN 40 MG TAB PO SCH (19:35)
[2021-08-06] MEDS: methylPREDNISolone SOD SUCCI 125 MG/2 ML VIAL IV SCH ×2 (01:03→06:36)
[2021-08-06] MEDS ORDERED: methylPREDNISolone SOD SUCCI 40 MG/ML 1 ML VIAL IV SCH (09:30)
[2021-08-06] MEDS: FORMOTEROL FUMARATE 20 MCG/2 ML NEBU INHALATION SCH ×2 (09:49→19:45)
[2021-08-06] MEDS: BUDESONIDE 0.5 MG/2 ML NEBU INHALATION SCH ×2 (09:49→19:45)
[2021-08-06] MEDS: FLUTICASONE 50MCG/SPRAY NASAL 16GM EA NOSTRIL SCH (10:16)
[2021-08-06] MEDS: METOPROLOL SUCCINATE (ER) 25 MG TAB.ER.24H PO SCH (10:17)
[2021-08-06] MEDS: FUROSEMIDE 40 MG TAB PO SCH (10:17)
[2021-08-06] MEDS: PANTOPRAZOLE 40 MG TABLET PO SCH (10:17)
[2021-08-06] MEDS: LEVOFLOXACIN 500 MG TAB PO SCH (10:17)
[2021-08-06] MEDS: SERTRALINE 50 MG TAB PO SCH (10:17)
[2021-08-06] MEDS: HYDROcodone/APAP 10-325MG 1 EACH TAB PO PRN ×2 (10:26→17:42)
--- NOTE | 2021-08-06 14:34 | P.PN ---
Subjective Progress Note Date: 08/06/21 HISTORY OF PRESENT ILLNESS This is a pleasant 70-year-old gentleman known to my practice and pulmonary Dr. Mireles. He has underlying history of advanced steroid-dependent COPD, with chronic hypoxemic respiratory failure on 4 L O2 nasal cannula at home., obstructive sleep apnea, unable to tolerate CPAP, rheumatid arthritis, hyperlipidemia, chronic bronchitis, with prior history of Pseudomonas in the sputum, that was previously thought to be colonization. He also had a history of perforated duodenal ulcer, status post explore lap, with repair of perforated duodenal ulcer, and incarcerated umbilical hernia. Known FVC of 72%, an FEV1 of 46%. Echocardiogram as of 12/07/2020, EF of 55-60%, with concentric LVH, mild MR, trace AR, mild TR, moderate pulmonary hypertension. Presents to the emergency room secondary to shortness of breath, and difficulty of breathing, worse than baseline. Patient denies any fever or chills, no melena hematochezia, no aspiration. Patient has increasing difficulties with his walker for ambulation,. His last admission at [facility] ER was 07/23/2021, admitted and discharged 07/27/2021, secondary to COPD exacerbation. At that time he required 9L high flow O2, and was covid negative at that time, and was discharged to home with his baseline 4 L oral nasal cannula, with oral long-term taper of prednisone, she did not require oral antibiotics on discharge at that time. Sputum culture, normal respiratory rod, 07/28/2021. Computed t omography scan, 07/23/2021, shows advanced pulmonary fibrosis, chronic pulmonary infiltrates similar to old exam, pleural thickening at the lung bases consistent with scarring, not significantly different from previous CT, Negative for PE, there is stable thoracic kyphotic deformities and mild thoracic compression fractures. Which was thought to be old. T7, T6, and T5 vertebral He presents to the emergency room, presents with above shortness of breath, productive cough, difficulty of expectorating sputum increasing shortness of breath on exertion, currently with COPD exacerbation, coronary virus PCR is negative, serum sodium 129, creatinine of 0.55, INR of 1.0 WBC count of 17.3 chest x-ray shows advanced COPD, with chronic pulmonary fibrosis, without any acute pulmonary process is seen in consult for made with Dr. Mireles, pulmonary medicine, started on IV Levaquin, empiric treatment secondary to leukocytosis, and nebulized treatments [id number], Pulmicort, and IV Solu-Medrol O2 supplementation, and was admitted to the medical floor 08/05: Patient has been afebrile, heart rate 90, blood pressure 111/67, pulse ox 92% on 4 L nasal cannula. Repeat blood work reveals WBC 11.2, hemoglobin 11.5 and platelet count 314. Electrolytes normal. Creatinine 0.4. Blood sugar 117. Pro-calcitonin 0.07. Patient has been seen and followed by pulmonary medicine. Patient is anxious to be discharged but instructed him that he will probably be here until Saturday. He is currently on Solu-Medrol 60 mg IV every 6 hours. 08/06: Patient is seen today on the [facility] floor. Patient is sleeping but awakens easily to verbal stimuli. He states his breathing is better today but still has mild wheezing. He's been afebrile, heart rate 73, blood pressure 106/62, pulse ox 99% on 4 L nasal cannula. Patient is continued on IV Solu- Medrol at 60 mg IV every 6 hours which will be decreased to 40 mg every 8 hours and start oral prednisone tomorrow. Anticipate discharge home tomorrow. REVIEW OF SYSTEMS Constitutional: No fever, no chills, no night sweats. No weight change. No weakness, fatigue or lethargy. No daytime sleepiness. EENT: No headache. No blurred vision or double vision, no loss of vision. No loss of Hearing, no ringing in the ears, no dizziness. No nasal drainage or congestion. No epistaxis. No sore throat. Lungs: Reports continued shortness of breath , improved, Reports cough, Reports sputum production. Reports wheezing. Cardiovascular: No chest pain, no lower extremity edema. No palpitations. No paroxysmal nocturnal dyspnea. No orthopnea. No lightheadedness or dizziness. No syncopal episodes. Abdominal: No abdominal pain. No nausea, vomiting. No diarrhea. No constipation. No bloody or tarry stools.. No loss of appetite. Genitourinary: No dysuria, increased frequency, urgency. No urinary retention. Musculoskeletal: No myalgias. No muscle weakness, no gait dysfunction, no frequent falls. No back pain. No neck pain. Integumentary: No wounds, no lesions. No rash or pruritus. No unusual bruising. Neurologic: No aphasia. No facial droop. No change in mentation. No head injury. No headache. No paralysis. No paresthesia. Psychiatric: No depression. No anxiety. No mood swings. Endocrine: No abnormal blood sugars. No weight change. PHYSICAL EXAMINATION Gen: This is 70-year-old male. Patient is resting in bed and not appear to be in acute respiratory failure. HEENT: Head is atraumatic, normocephalic. Pupils equal, round. Sclerae is anicteric. NECK: Supple. No JVD. No lymphadenopathy. No thyromegaly. LUNGS: Coarse crackles bilaterally. No intercostal retractions. HEART: Regular rate and rhythm. Systolic murmur. ABDOMEN: Soft. Bowel sounds are present. No masses. No tenderness. Large ventral hernia, soft. EXTREMITIES: No pedal edema. No calf tenderness. Dorsalis pedis palpable bilaterally. NEUROLOGICAL: Patient is awake, alert and oriented x3. Cranial nerves 2 through 12 are grossly intact. ASSESSMENT AND PLAN 1. Acute hypoxic respiratory failure secondary to COPD exacerbation with underlying pulmonary fibrosis, possible rheumatoid arthritis associated interstitial lung disease. Continue DuoNeb treatments every 4 hours, Tessalon Perles 200 mg 3 times daily scheduled, Pulmicort 0.5 mg twice daily, Perforomist 20 g twice daily, Levaquin 500 milligrams daily, Solu-Medrol decreased to 40 mg IV every 8 hours and start prednisone tomorrow. 2. Recent hospitalization for possible Right clavicular fracture and fracture of the superior and inferior left pubic ramus, pathologic, stable, no recent falls. 3. Possible tracheobronchitis. Continue Levaquin, Tessalon Perles 200 mg 3 times daily. 4. Chronic hypoxic respiratory failure. Continue oxygen therapy. 5. Advanced COPD with pulmonary fibrosis, steroid dependent and chronic hypoxic and hypercapnic respiratory failure on home O2 at 4 L. continue oxygen therapy. 6. Moderate pulmonary hypertension. 7. Hypertension. Continue Toprol-XL 25 mg daily. 8. Rheumatoid arthritis, stable. 9. Hyperlipidemia. Continue atorvastatin 40 mg at bedtime. 10. Obstructive sleep apnea unable to tolerate CPAP. 11. Chronic back pain and generalized osteoarthritis. Continue [place] as needed, gabapentin 300 mg at bedtime 12. History of perforated duodenal ulcer status post exploratory laparotomy with repair of perforated duodenal ulcer and repair of incarcerated umbilical hernia. 13. Generalized anxiety disorder and recurrent depression. Continue Zoloft 150 mg daily, Elavil 10 mg at bedtime. 14. DVT prophylaxis. Heparin subcu. 15. GI prophylaxis. Continue Protonix daily. 16. Insomnia. Continue Elavil 10 mg at bedtime. DISCHARGE PLAN Home with [facility]. Impression and plan of care have been directed as dictated by the signing physician. [place] Salinas nurse practitioner acting as scribe for signing physician. Objective - Vital Signs Vital signs: Vital Signs Temp 97.9 F 08/06/21 04:07 Pulse 73 08/06/21 04:07 Resp 20 08/06/21 04:07 BP 106/62 08/06/21 04:07 Pulse Ox 99 08/06/21 04:07 Intake & Output 08/05/21 08/06/21 08/06/21 18:59 06:59 18:59 Intake Total 400 Balance 400 Weight 61.235 kg Intake: Oral 400 Other: Voiding Method Urinal Urinal Diaper Diaper Incontinent Incontinent # Voids 1 2 # Bowel Movements 1 0 - Labs CBC & Chem 7: 08/05/21 06:57 08/05/21 06:57 Labs: Abnormal Lab Results - Last 24 Hours (Table) 08/05/21 Range/Units 06:57 Creatinine 0.4 L (0.6-1.5) mg/dL BUN/Creatinine Ratio 48.25 H (12.00-20.00) Ratio Glucose 117 H (70-110) mg/dL Calcium 7.7 L (8.7-10.3) mg/dL Microbiology - Last 24 Hours (Table) 08/04/21 14:26 Blood Culture - Preliminary Blood No Growth after 24 hours
--- NOTE | 2021-08-06 14:47 | P.PN ---
Subjective Progress Note Date: 08/06/21 70-year-old male patient was presented to the hospital because of worsening shortness of breath. Symptoms started approximately a week ago and worse over the past few days. According to the patient, he has history of COPD and pulmonary fibrosis. Based on the previous pulmonary function test, the patien t's FEV1 has been order of 46% of predicted and FVC has been order of 72% of predicted and this is based on a spirometer this was done 2017. The patient has been steroid dependent for many years. He has history of rheumatoid arthritis and has been on immunosuppressive therapy in the past in the form of Humira injections. He has not taken Humira for now. The patient has chronic hypoxic respiratory failure and typically is on 3-1/2 L of oxygen by nasal cannula. He has been hospitalized in the past for septic shock and he has a previous history of duodenal ulcer perforation was repaired surgically. He has obstructive sleep apnea and his nontolerant to CPAP therapy. During this current admission, the patient was found to have a white cell count 17.3. The patient had normal coagulation profile. Sodium level is at 129, BUN was 25 with a creatinine of 0.5, the COVID 19 testing was negative. LFTs were essentially within normal limits. The chest x-ray showed advanced COPD with chronic pulmonary fibrotic changes without any acute process identified. Based on his worsening shortness of breath, the patient was started on IV Solu-Medrol, hospitalized for an acute COPD exacerbation. Start on Levaquin and immersed department and started on DuoNeb neb regimen [id number]. The patient is seen today 08/05/2021 in follow-up on the regular medical floor. He is currently resting in bed. Awake and alert in no acute distress. He still has some shortness of breath with minimal exertion. He is maintaining O2 saturations in the mid 90s on 4 L/m per nasal cannula. His been afebrile. Hemodynamically stable. His main complaint is generalized weakness and generalized aches and pains. White count 11.2. Hemoglobin 11.5. Lymphocytes 0.7. Sodium 135. Potassium 4.2. Creatinine 0.4. Pro-calcitonin 0.07. Mack virus not detected. He is continued on Levaquin, IV Solu-Medrol, DuoNeb inhalations, Pulmicort and Perforomist inhalations, Tessalon Perles. The patient is seen today 08/06/2021 in follow-up on the regular medical floor. He is currently resting comfortably in bed awake and alert in no acute distress. Maintaining good O2 saturations in the mid to upper 90s on 4 L/m per nasal cannula. He's been afebrile. Hemodynamically stable. Blood culture reveals no growth. No new labs today. He is continued on DuoNeb inhalations, Pulmicort and Perforomist inhalations, IV Solu-Medrol. He remains on antibiotics in the form of Levaquin. Objective - Vital Signs Vital signs: Vital Signs Temp 98.7 F 08/06/21 11:14 Pulse 79 08/06/21 11:14 Resp 20 08/06/21 11:14 BP 126/70 08/06/21 11:14 Pulse Ox 96 08/06/21 11:14 Intake & Output 08/05/21 08/06/21 08/06/21 18:59 06:59 18:59 Intake Total 400 Balance 400 Weight 61.235 kg Intake: Oral 400 Other: Voiding Method Urinal Urinal Urinal Diaper Diaper Diaper Incontinent Incontinent Incontinent # Voids 1 2 1 # Bowel Movements 1 0 - Exam GENERAL EXAM: Alert, frail, 70-year-old gentleman, on 4 L nasal cannula, fairly comfortable in no apparent distress. HEAD: Normocephalic. EYES: Normal reaction of pupils, equal size. NOSE: Clear with pink turbinates. THROAT: No erythema or exudates. NECK: No masses, no JVD. CHEST: No chest wall deformity. LUNGS: Equal air entry with end expiratory wheeze, few scattered rhonchi, diminished CVS: S1 and S2 normal with no audible murmur, regular rhythm. ABDOMEN: No hepatosplenomegaly, normal bowel sounds, no guarding or rigidity. SPINE: No scoliosis or deformity SKIN: No rash, ecchymosis secondary to chronic steroid use. CENTRAL NERVOUS SYSTEM: No focal deficits, tone is normal in all 4 extremities. EXTREMITIES: There is no peripheral edema. No clubbing, no cyanosis. Peripheral pulses are intact. - Labs CBC & Chem 7: 08/05/21 06:57 08/05/21 06:57 Labs: Microbiology - Last 24 Hours (Table) 08/04/21 14:26 Blood Culture - Preliminary Blood No Growth after 24 hours Assessment and Plan Assessment: 1 acute exacerbation of chronic COPD/pulmonary fibrosis. The patient was treated with antibiotics and steroids on outpatient basis with failure to response and the patient was hospitalized. Pro-calcitonin level is low. Covid 19 testing is negative for now and the patient is currently on 4 L by nasal cannula. The patient was started on a combination of bronchodilators, steroids and empiric antibiotic coverage with Levaquin. 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 5 history of duodenal ulcer perforation requiring surgical repair and repair of incarcerated umbilical hernia, with subsequent development of intraperitoneal/abdominal abscess requiring incision and drainage and prolonged antibiotic course 7 rheumatoid arthritis, with secondary chronic joint deformities related to rheumatoid arthritis 8 obstructive sleep apnea not receiving any CPAP therapy at this point in time 9 chronic back pain 10 hyperlipidemia 11 osteoarthritis 12 mild leukocytosis Plan: The patient was seen and evaluated Currently stable from the pulmonary standpoint IV Solu-Medrol transitioned to prednisone Continue the current treatment plan We will continue to follow
[2021-08-06] MEDS: ACETAMINOPHEN TAB 325 MG TAB PO PRN (15:30)
[2021-08-06] MEDS: IPRATROPIUM-ALBUTEROL 3 ML NEB INHALATION PRN ×2 (15:41→19:45)
[2021-08-06] MEDS: AMITRIPTYLINE HCL 10 MG TAB PO SCH (20:31)
[2021-08-06] MEDS: ATORVASTATIN 40 MG TAB PO SCH (20:31)
[2021-08-07] MEDS: HYDROcodone/APAP 10-325MG 1 EACH TAB PO PRN ×2 (00:46→08:21)
[2021-08-07 04:39] VITALS: BP 120/71; RESP 18; TEMP 98.3
[2021-08-07] MEDS: FLUTICASONE 50MCG/SPRAY NASAL 16GM EA NOSTRIL SCH (08:16)
[2021-08-07] MEDS: FUROSEMIDE 40 MG TAB PO SCH (08:17)
[2021-08-07] MEDS: METOPROLOL SUCCINATE (ER) 25 MG TAB.ER.24H PO SCH (08:17)
[2021-08-07] MEDS: LEVOFLOXACIN 500 MG TAB PO SCH (08:17)
[2021-08-07] MEDS: PANTOPRAZOLE 40 MG TABLET PO SCH (08:17)
[2021-08-07] MEDS: SERTRALINE 50 MG TAB PO SCH (08:18)
[2021-08-07] MEDS ORDERED: predniSONE 20 MG TAB PO SCH (09:00)
[2021-08-07] MEDS: IPRATROPIUM-ALBUTEROL 3 ML NEB INHALATION PRN (11:05)
[2021-08-07] MEDS: BUDESONIDE 0.5 MG/2 ML NEBU INHALATION SCH (11:05)
[2021-08-07] MEDS: FORMOTEROL FUMARATE 20 MCG/2 ML NEBU INHALATION SCH (11:05)
[2021-08-07 11:09] VITALS: PULSE 80
--- NOTE | 2021-08-07 11:30 | P.PN ---
Subjective Progress Note Date: 08/07/21 Principal diagnosis: Dyspnea, wheezing, coughing On 08/07/2021 patient seen in follow-up on medical surgical floor. He is awake and alert, in no acute distress, he is resting comfortably in bed, he is currently on 4 L of oxygen. His pulse ox is 96%, no fever or chills, but a signs have been stable, breathing is nonlabored, lung sounds are much improved, patient is less dyspneic and bronchospastic, coughing less. He's had no acute events overnight, no complaint of chest discomfort, no worsening dyspnea or cough. No new labs today, patient continues on nebulized bronchodilators, he is on daily dose of Lasix, he has been transitioned to oral prednisone. Continues on Levaquin. no Fever or chills, blood cultures have been negative, overall patient states he is significantly improved since admission, and would like to go home today. Objective - Vital Signs Vital signs: Vital Signs Temp 98.3 F 08/07/21 04:38 Pulse 80 08/07/21 11:08 Resp 18 08/07/21 04:38 BP 120/71 08/07/21 04:38 Pulse Ox 96 08/07/21 11:08 Intake & Output 08/06/21 08/07/21 08/07/21 18:59 06:59 18:59 Intake Total 600 Balance 600 Intake: Oral 600 Other: Voiding Method Urinal Bedside Commode Diaper Urinal Incontinent Diaper Incontinent # Voids 1 2 # Bowel Movements 1 - Exam GENERAL EXAM: Alert, very pleasant, 70-year-old white male, on 4 L of oxygen and the pulse ox of 96%, resting comfortably in bed comfortable in no apparent distress. HEAD: Normocephalic/atraumatic. EYES: Normal reaction of pupils, equal size. Conjunctiva pink, sclera white. NOSE: Clear with pink turbinates. THROAT: No erythema or exudates. NECK: No masses, no JVD, no thyroid enlargement, no adenopathy. CHEST: No chest wall deformity. Symmetrical expansion. LUNGS: Equal air entry with no crackles, wheeze, rhonchi or dullness. CVS: Regular rate and rhythm, normal S1 and S2, no gallops, no murmurs, no rubs ABDOMEN: Soft, nontender. No hepatosplenomegaly, normal bowel sounds, no guarding or rigidity. EXTREMITIES: No clubbing, no edema, no cyanosis, 2+ pulses and upper and lower extremities. MUSCULOSKELETAL: Muscle strength and tone normal. SPINE: No scoliosis or deformity SKIN: No rashes CENTRAL NERVOUS SYSTEM: Alert and oriented -3. No focal deficits, tone is normal in all 4 extremities. PSYCHIATRIC: Alert and oriented -3. Appropriate affect. Intact judgment and insight. - Labs CBC & Chem 7: 08/05/21 06:57 08/05/21 06:57 Labs: Microbiology - Last 24 Hours (Table) 08/04/21 14:26 Blood Culture - Preliminary Blood No Growth after 48 hours Assessment and Plan Plan: Assessment: #1. Acute exacerbation of chronic COPD/pulmonary fibrosis. The patient has been treated with antibiotics and steroids with failure of outpatient treatment. COVID-19 PCR was negative #2. Chronic hypoxic respiratory failure patient wears 3 have liters on an outpatient basis #3. Advanced COPD/pulmonary fibrosis, oxygen and steroid dependent #4. 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 History of duodenal ulcer with perforation requiring surgical repair and repair of incarcerated umbilical hernia with subsequent development of intraperitoneal/abdominal abscess requiring incision and drainage and prolonged antibiotic course #7. Rheumatoid arthritis with secondary chronic joint deformities #8. Obstructive sleep apnea not receiving any CPAP therapy at this point in magdiel e #9. Chronic back pain #10. Hyperlipidemia #11. Osteoporosis #12. Mild leukocytosis Plan: Patient continues to improve Breathing comfortably Close to his baseline Increase activity as tolerated Has been transitioned to oral prednisone Clear for discharge from pulmonary perspective on prednisone taper and she can finish outpatient course of Levaquin he can resume his home medications and inhalers Outpatient follow-up with Dr. Barbosa in the office in 2 weeks I performed a history & physical examination of the patient and discussed their management with my nurse practitioner, Stella Powers. I reviewed the nurse practitioner's note and agree with the documented findings and plan of care. Lung sounds are positive for diminished breath sounds throughout the lung brown. The findings and the impression was discussed with the patient. I attest to the documentation by the nurse practitioner. Time with Patient: Less than 30
--- NOTE | 2021-08-07 12:13 | P.DS ---
Providers Date of admission: 08/04/21 15:13 Expected date of discharge: 08/07/21 Attending physician: Razia Holbrook Consults: 08/04/21 15:12 Consult Physician Routine Consulting Provider: Ashia Mireles Consult Reason/Comments: COPD Do you want consulting provider notified?: Yes Primary care physician: [facility] Course: HISTORY OF PRESENT ILLNESS This is a pleasant 70-year-old gentleman known to my practice and pulmonary Dr. Mireles. He has underlying history of advanced steroid-dependent COPD, with chronic hypoxemic respiratory failure on 4 L O2 nasal cannula at home., obstructive sleep apnea, unable to tolerate CPAP, rheumatid arthritis, hyperlipidemia, chronic bronchitis, with prior history of Pseudomonas in the sputum, that was previously thought to be colonization. He also had a history of perforated duodenal ulcer, status post explore lap, with repair of perforated duodenal ulcer, and incarcerated umbilical hernia. Known FVC of 72%, an FEV1 of 46%. Echocardiogram as of 12/07/2020, EF of 55-60%, with concentric LVH, mild MR, trace AR, mild TR, moderate pulmonary hypertension. Presents to the emergency room secondary to shortness of breath, and difficulty of breathing, worse than baseline. Patient denies any fever or chills, no melena hematochezia, no aspiration. Patient has increasing difficulties with his walker for ambulation,. His last admission at [facility] was 07/23/2021, admitted and discharged 07/27/2021, secondary to COPD exacerbation. At that time he required 9L high flow O2, and was covid negative at that time, and was discharged to home with his baseline 4 L oral nasal cannula, with oral long-term taper of prednisone, she did not require oral antibiotics on discharge at that time. Sputum culture, normal respiratory rod, 07/28/2021. Computed tomography scan, 07/23/2021, shows advanced pulmonary fibrosis, chronic pulmonary infiltrates similar to old exam, pleural thickening at the lung bases consistent with scarring, not significantly different from previous CT, Negative for PE, there is stable thoracic kyphotic deformities and mild thoracic compression fractures. Which was thought to be old. T7, T6, and T5 vertebral He presents to the emergency room, presents with above shortness of breath, productive cough, difficulty of expectorating sputum increasing shortness of breath on exertion, currently with COPD exacerbation, coronary virus PCR is negative, serum sodium 129, creatinine of 0.55, INR of 1.0 WBC count of 17.3 chest x-ray shows advanced COPD, with chronic pulmonary fibrosis, without any acute pulmonary process is seen in consult for made with Dr. Mireles, pulmonary medicine, started on IV Levaquin, empiric treatment secondary to leukocytosis, and nebulized treatments [id number], Pulmicort, and IV Solu-Medrol O2 supplementation, and was admitted to the medical floor 08/05: Patient has been afebrile, heart rate 90, blood pressure 111/67, pulse ox 92% on 4 L nasal cannula. Repeat blood work reveals WBC 11.2, hemoglobin 11.5 and platelet count 314. Electrolytes normal. Creatinine 0.4. Blood sugar 117. Pro-calcitonin 0.07. Patient has been seen and followed by pulmonary medicine. Patient is anxious to be discharged but instructed him that he will probably be here until Saturday. He is currently on Solu-Medrol 60 mg IV every 6 hours. 08/06: [facility] Patient is sleeping but awakens easily to verbal stimuli. He states his breathing is better today but still has mild wheezing. He's been afebrile, heart rate 73, blood pressure 106/62, pulse ox 99% on 4 L nasal cannula. Patient is continued on IV Solu- Medrol at 60 mg IV every 6 hours which will be decreased to 40 mg every 8 hours and start oral prednisone tomorrow. Anticipate discharge home tomorrow. 08/07: Patient's breathing status is stable and close to baseline. He still has a cough. Patient will be continued on Levaquin and prednisone as new medications for home. Has been seen by pulmonary medicine this morning clear for discharge home. Patient is requesting prescription for [place] but he has been advised to follow-up with Dr. Holbrook regarding this as he has requested a prescription for [place] for 3 days on every hospitalization and discharge. Patient will be discharged today in stable condition. DISCHARGE DIAGNOSES 1. Acute hypoxic respiratory failure secondary to COPD exacerbation with underlying pulmonary fibrosis, possible rheumatoid arthritis associated interstitial lung disease. 2. Recent hospitalization for possible Right clavicular fracture and fracture of the superior and inferior left pubic ramus, pathologic, stable, no recent falls. 3. Possible tracheobronchitis. 4. Chronic hypoxic respiratory failure. 5. Advanced COPD with pulmonary fibrosis, steroid dependent and chronic hypoxic and hypercapnic respiratory failure on home O2 at 4 L. 6. Moderate pulmonary hypertension. 7. Hypertension. 8. Rheumatoid arthritis, stable. 9. Hyperlipidemia. 10. Obstructive sleep apnea unable to tolerate CPAP. 11. Chronic back pain and generalized osteoarthritis. 12. History of perforated duodenal ulcer status post exploratory laparotomy with repair of perforated duodenal ulcer and repair of incarcerated umbilical hernia. 13. Generalized anxiety disorder and recurrent depression. 14. Insomnia. Continue Elavil 10 mg at bedtime. DISCHARGE PLAN Home with [facility]. Greater than 35 minutes was utilized and coordinating patient's discharge. Impression and plan of care have been directed as dictated by the signing physician. [place]ia Salinas nurse practitioner acting as scribe for signing physician. Patient Condition at Discharge: Good Plan - Discharge Summary Discharge Rx Participant: No New Discharge Prescriptions: New Levofloxacin [Levaquin] 500 mg PO DAILY #5 tab predniSONE 0 mg PO DIRECTED #30 tab Continue Metoprolol Succinate [Toprol XL] 25 mg PO DAILY Sertraline [Zoloft] 150 mg PO DAILY Celecoxib [CeleBREX] 200 mg PO DAILY Clopidogrel [Plavix] 75 mg PO DAILY #14 tab Fluticasone Nasal [place] [Flonase Nasal [place]] 2 spr EA NOSTRIL DAILY Furosemide [Lasix] 40 mg PO DAILY #28 tab Multivitamins, Thera [Multivitamin (formulary)] 1 tab PO DAILY Benzonatate [Tessalon Perles] 200 mg PO TID PRN PRN Reason: Cough Atorvastatin [Lipitor] 40 mg PO HS Amitriptyline HCl [Elavil] 10 mg PO HS Ascorbic Acid [Vitamin C] 1,000 mg PO DAILY Ipratropium-Albuterol Nebulize [Duoneb 0.5 mg-3 mg/3 ml Soln] 3 ml INHALATION RT-QID Budesonide [Pulmicort] 0.5 mg INHALATION RT-BID Thiamine [Vitamin B-1] 100 mg PO BID-W/MEALS tab Omeprazole 20 mg PO DAILY Calcium Carbonate 1,000 mg PO Q8H PRN PRN Reason: Indigestion Acetaminophen [Tylenol] 650 mg PO Q6H PRN PRN Reason: Pain HYDROcodone/APAP 10-325MG [[place] 10-325] 1 tab PO Q8HR PRN 3 Days #9 tab PRN Reason: Pain Discontinued predniSONE See Taper PO DAILY Discharge Medication List Metoprolol Succinate [Toprol XL] 25 mg PO DAILY 01/12/20 [History] Sertraline [Zoloft] 150 mg PO DAILY 01/12/20 [History] Amitriptyline HCl [Elavil] 10 mg PO HS 12/06/20 [History] Celecoxib [CeleBREX] 200 mg PO DAILY 12/06/20 [History] Ascorbic Acid [Vitamin C] 1,000 mg PO DAILY 12/10/20 [History] Ipratropium-Albuterol Nebulize [Duoneb 0.5 mg-3 mg/3 ml Soln] 3 ml INHALATION RT-QID 12/10/20 [History] Clopidogrel [Plavix] 75 mg PO DAILY #14 tab 12/13/20 [Rx] Budesonide [Pulmicort] 0.5 mg INHALATION RT-BID 07/10/21 [History] Fluticasone Nasal [place] [Flonase Nasal [place]] 2 spr EA NOSTRIL DAILY 07/10/21 [History] Furosemide [Lasix] 40 mg PO DAILY #28 tab 07/12/21 [Rx] Thiamine [Vitamin B-1] 100 mg PO BID-W/MEALS tab 07/12/21 [Rx] Acetaminophen [Tylenol] 650 mg PO Q6H PRN 07/23/21 [History] Atorvastatin [Lipitor] 40 mg PO HS 07/23/21 [History] Benzonatate [Tessalon Perles] 200 mg PO TID PRN 07/23/21 [History] Calcium Carbonate 1,000 mg PO Q8H PRN 07/23/21 [History] Multivitamins, Thera [Multivitamin (formulary)] 1 tab PO DAILY 07/23/21 [History] Omeprazole 20 mg PO DAILY 07/23/21 [History] HYDROcodone/APAP 10-325MG [[place] 10-325] 1 tab PO Q8HR PRN 3 Days #9 tab 07/27/21 [Rx] Levofloxacin [Levaquin] 500 mg PO DAILY #5 tab 08/07/21 [Rx] predniSONE 0 mg PO DIRECTED #30 tab 08/07/21 [Rx] Follow up Appointment(s)/Referral(s): Razia Holbrook MD [Primary Care Provider] - 08/08/21 4:45 pm (Virtual Visit) Ashia Mireles MD [STAFF PHYSICIAN] - 09/19/21 9:45 am (The Office put you on the cancellation list. Will call if an appointment opens up. ) Patient Instructions/Handouts: Prednisone (By mouth), Levofloxacin (By mouth), Hyponatremia (DC), COPD (Chronic Obstructive Pulmonary Disease) (DC) Discharge Disposition: HOME WITH HOME HEALTH SERVICES
== END 2021-08-07 13:24 | disposition home health service (06) | DRG 190 ==
LOC: EC 13:40 → 5NMEDONC 15:13
PROVIDERS: ADMIT Family Medicine; ATTEND Family Medicine
DX: J44.1 Chronic obstructive pulmonary disease with (acute) exacerbation (principal); J96.21 Acute and chronic respiratory failure with hypoxia; J96.22 Acute and chronic respiratory failure with hypercapnia; I50.30 Unspecified diastolic (congestive) heart failure; M80.08XA Age-related osteoporosis with current pathological fracture, vertebra(e), initial encounter for fracture; E24.2 Drug-induced Cushing's syndrome; E87.1 Hypo-osmolality and hyponatremia; F33.9 Major depressive disorder, recurrent, unspecified; J84.9 Interstitial pulmonary disease, unspecified; J84.10 Pulmonary fibrosis, unspecified; M06.9 Rheumatoid arthritis, unspecified; M15.9 Polyosteoarthritis, unspecified; T38.0X5A Adverse effect of glucocorticoids and synthetic analogues, initial encounter; Z20.822 Contact with and (suspected) exposure to COVID-19; I27.20 Pulmonary hypertension, unspecified; D72.829 Elevated white blood cell count, unspecified; E78.5 Hyperlipidemia, unspecified; I08.3 Combined rheumatic disorders of mitral, aortic and tricuspid valves; I11.0 Hypertensive heart disease with heart failure; E86.0 Dehydration; F03.90 Unspecified dementia, unspecified severity, without behavioral disturbance, psychotic disturbance, mood disturbance, and anxiety; F41.1 Generalized anxiety disorder; G47.00 Insomnia, unspecified; G47.33 Obstructive sleep apnea (adult) (pediatric); G89.29 Other chronic pain; M48.00 Spinal stenosis, site unspecified; Z87.81 Personal history of (healed) traumatic fracture; Z99.81 Dependence on supplemental oxygen; Z57.4 Occupational exposure to toxic agents in agriculture; Z98.890 Other specified postprocedural states; Z86.19 Personal history of other infectious and parasitic diseases; Z79.02 Long term (current) use of antithrombotics/antiplatelets; Z79.1 Long term (current) use of non-steroidal anti-inflammatories (NSAID); Z79.52 Long term (current) use of systemic steroids; Z79.891 Long term (current) use of opiate analgesic; Z79.899 Other long term (current) drug therapy; Z80.0 Family history of malignant neoplasm of digestive organs; Z80.6 Family history of leukemia; Z83.3 Family history of diabetes mellitus; Z87.11 Personal history of peptic ulcer disease; Z87.891 Personal history of nicotine dependence; Z82.3 Family history of stroke; Z82.0 Family history of epilepsy and other diseases of the nervous system; Z88.0 Allergy status to penicillin
CPT/HCPCS: 36415; 71046; 80048; 80053; 83605; 83735; 84145; 84484; 85025; 85610; 85730; 87040; 87635; 93005; 94640; 94667; 94760; 96365; 96375; 99285

== ENCOUNTER 2022-03-03 10:32 | Inpatient (IN) | payer MEDICARE, OTHER ==
[2022-03-03] MEDS ORDERED: ALBUTEROL NEBULIZED 2.5 MG/3 ML INHALATION STA (10:59)
[2022-03-03] MEDS ORDERED: SODIUM CHLORIDE 0.9% 500 ML 500 ML IV STA (10:59)
[2022-03-03] MEDS ORDERED: IPRATROPIUM 0.5 MG/2.5 ML NEBU INHALATION STA (10:59)
[2022-03-03] MEDS ORDERED: methylPREDNISolone SOD SUCCI 125 MG/2 ML VIAL IV STA (10:59)
--- NOTE | 2022-03-03 11:02 | ED ---
General Adult HPI - General Chief complaint: Shortness of Breath Stated complaint: possible pneumonia Time Seen by Provider: 03/03/22 10:40 Source: patient, family, RN notes reviewed, old records reviewed Mode of arrival: wheelchair Limitations: no limitations - History of Present Illness Initial comments: This is a 71-year-old male who presents to the emergency department complaining of shortness of breath. Patient has past medical history significant for COPD and pulmonary fibrosis according to the . Patient states he gets pneumonia about once a year. Patient states over the last day or so has difficulty breathing is gotten worse. Patient states he is coughing more than normal. states this morning had a temperature 100.0 and pulse ox is 86 on 3 L which is the normal amount of oxygen for him. Patient denies chest pain or palpit ations. Patient denies any abdominal pain patient denies nausea vomiting diarrhea. Patient denies any lightheadedness or dizziness. - Related Data Home Medications Medication Instructions Recorded Confirmed Metoprolol Succinate [Toprol XL] 25 mg PO DAILY 01/12/20 08/04/21 Sertraline [Zoloft] 150 mg PO DAILY 01/12/20 08/04/21 Amitriptyline HCl [Elavil] 10 mg PO HS 12/06/20 08/04/21 Celecoxib [CeleBREX] 200 mg PO DAILY 12/06/20 08/04/21 Ascorbic Acid [Vitamin C] 1,000 mg PO DAILY 12/10/20 08/04/21 Ipratropium-Albuterol Nebulize 3 ml INHALATION RT-QID 12/10/20 08/04/21 [Duoneb 0.5 mg-3 mg/3 ml Soln] Budesonide [Pulmicort] 0.5 mg INHALATION RT-BID 07/10/21 08/04/21 Fluticasone Nasal [place] [Flonase 2 spr EA NOSTRIL DAILY 07/10/21 08/04/21 Nasal [place]] Acetaminophen [Tylenol] 650 mg PO Q6H PRN 07/23/21 08/04/21 Atorvastatin [Lipitor] 40 mg PO HS 07/23/21 08/04/21 Benzonatate [Tessalon Perles] 200 mg PO TID PRN 07/23/21 08/04/21 Calcium Carbonate 1,000 mg PO Q8H PRN 07/23/21 08/04/21 Multivitamins, Thera [Multivitamin 1 tab PO DAILY 07/23/21 08/04/21 (formulary)] Omeprazole 20 mg PO DAILY 07/23/21 08/04/21 Previous Rx's Medication Instructions Recorded Clopidogrel [Plavix] 75 mg PO DAILY #14 tab 12/13/20 Furosemide [Lasix] 40 mg PO DAILY #28 tab 07/12/21 Thiamine [Vitamin B-1] 100 mg PO BID-W/MEALS tab 07/12/21 HYDROcodone/APAP 10-325MG [[place] 1 tab PO Q8HR PRN 3 Days #9 tab 07/27/21 10-325] Levofloxacin [Levaquin] 500 mg PO DAILY #5 tab 08/07/21 predniSONE 0 mg PO DIRECTED #30 tab 08/07/21 Allergies Allergy/AdvReac Type Severity Reaction Status Date / Time amoxicillin AdvReac Nausea & Verified 03/03/22 10:44 Vomiting Review of Systems ROS Statement: Those systems with pertinent positive or pertinent negative responses have been documented in the HPI. ROS Other: All systems not noted in ROS Statement are negative. Past Medical History Past Medical History: Heart Failure, COPD, Hyperlipidemia, Osteoarthritis (OA), Pneumonia, Rheumatoid Arthritis (RA), Sleep Apnea/CPAP/BIPAP Additional Past Medical History / Comment(s): COPD, chronic hypoxic respiratory failure previous history of pneumoperitoneum related to a perforated duodenal ulcer, repair of an umbilical hernia, chronic back pain, back stenosis. History of Any Multi-Drug Resistant Organisms: None Reported Past Surgical History: Orthopedic Surgery Additional Past Surgical History / Comment(s): colonoscopy, repair of a perforated duodenal ulcer and repair of an incarcerated umbilical hernia Past Anesthesia/Blood Transfusion Reactions: No Reported Reaction Past Psychological History: Anxiety, Depression Smoking Status: Former smoker Past Alcohol Use History: Daily Past Drug Use History: None Reported - Past Family History Father Family Medical History: Cancer Additional Family Medical History / Comment(s): Father of leukemia. Mother Family Medical History: Cancer, CVA/TIA, Dementia, Diabetes Mellitus Additional Family Medical History / Comment(s): Mother is 88yrs old with history of dementia and colon cancer. Sister(s) Additional Family Medical History / Comment(s): Patient 3 sons with no major medical problems. General Exam - General Exam Comments Initial Comments: GENERAL: Patient is well-developed and well-nourished. Patient is nontoxic and well-hy drated and is in mild distress. ENT: Neck is soft and supple. No significant lymphadenopathy is noted. Oropharynx is clear. Moist mucous membranes. Neck has full range of motion without eliciting any pain. EYES: The sclera were anicteric and conjunctiva were pink and moist. Extraocular movements were intact and pupils were equal round and reactive to light. Eyelids were unremarkable. PULMONARY: Patient has crackles bilateral bases CARDIOVASCULAR: There is a regular rate and rhythm without any murmurs gallops or rubs. ABDOMEN: Soft and nontender with normal bowel sounds. SKIN: Skin is clear with no lesions or rashes and otherwise unremarkable. NEUROLOGIC: Patient is alert and oriented x3. Cranial nerves II through XII are grossly intact. Motor and sensory are also intact. Normal speech, volume and content. Symmetrical smile. MUSCULOSKELETAL: Normal extremities with adequate strength and full range of motion. LYMPHATICS: No significant lymphadenopathy is noted PSYCHIATRIC: Normal psychiatric evaluation. Limitations: no limitations Course Vital Signs 03/03/22 03/03/22 03/03/22 10:40 10:47 11:23 Temperature 97.8 F Pulse Rate 108 H 102 H Respiratory 20 20 18 Rate Blood Pressure 141/96 O2 Sat by Pulse 81 L Oximetry 03/03/22 11:38 Temperature Pulse Rate 102 H Respiratory 20 Rate Blood Pressure O2 Sat by Pulse Oximetry Medical Decision Making - Medical Decision Making Chest x-ray signs of congestion and COPD. Patient received antibiotics because he had low-grade fever 100.0. Patient received Lasix because of the congestion and the elevated BNP. Patient also received breathing treatments and steroids for the COPD. I spoke with Dr. Holbrook she agreed to admit the patient admitted the patient wrote admitting orders. - Lab Data Result diagrams: 03/03/22 11:18 03/03/22 11:18 Lab Results 03/03/22 03/03/22 03/03/22 Range/Units 11:18 11:18 11:18 WBC 13.1 H (3.8-10.6) k/uL RBC 4.33 (4.30-5.90) m/uL Hgb 13.3 (13.0-17.5) gm/dL Hct 40.6 (39.0-53.0) % MCV 93.7 (80.0-100.0) fL MCH 30.7 (25.0-35.0) pg MCHC 32.7 (31.0-37.0) g/dL RDW 17.0 H (11.5-15.5) % Plt Count 304 (150-450) k/uL MPV 7.5 Neutrophils % 81 % Lymphocytes % 8 % Monocytes % 7 % Eosinophils % 1 % Basophils % 1 % Neutrophils # 10.6 H (1.3-7.7) k/uL Lymphocytes # 1.1 (1.0-4.8) k/uL Monocytes # 0.9 (0-1.0) k/uL Eosinophils # 0.1 (0-0.7) k/uL Basophils # 0.1 (0-0.2) k/uL Anisocytosis Slight PT 10.9 (9.0-12.0) sec INR 1.0 (<1.2) APTT 25.5 (22.0-30.0) sec Sodium 133 L (137-145) mmol/L Potassium 4.3 (3.5-5.1) mmol/L Chloride 99 (98-107) mmol/L Carbon Dioxide 26 (22-30) mmol/L Anion Gap 8 mmol/L BUN 19 (9-20) mg/dL Creatinine 0.79 (0.66-1.25) mg/dL Est GFR (CKD-EPI)AfAm >90 (>60 ml/min/1.73 sqM) Est GFR (CKD-EPI)NonAf >90 (>60 ml/min/1.73 sqM) Glucose 105 H (74-99) mg/dL Plasma Lactic Acid Steven (0.7-2.0) mmol/L Calcium 8.3 L (8.4-10.2) mg/dL Magnesium 1.7 (1.6-2.3) mg/dL Total Bilirubin 0.8 (0.2-1.3) mg/dL AST 17 (17-59) U/L ALT 11 (4-49) U/L Alkaline Phosphatase 94 (38-126) U/L Troponin I (0.000-0.034) ng/mL NT-Pro-B Natriuret Pep pg/mL Total Protein 6.5 (6.3-8.2) g/dL Albumin 3.5 (3.5-5.0) g/dL Coronavirus (PCR) (Not Detectd) Influenza Type A RNA (Not Detectd) Influenza Type B (PCR) (Not Detectd) 03/03/22 03/03/22 03/03/22 Range/Units 11:18 11:18 11:18 WBC (3.8-10.6) k/uL RBC (4.30-5.90) m/uL Hgb (13.0-17.5) gm/dL Hct (39.0-53.0) % MCV (80.0-100.0) fL MCH (25.0-35.0) pg MCHC (31.0-37.0) g/dL RDW (11.5-15.5) % Plt Count (150-450) k/uL MPV Neutrophils % % Lymphocytes % % Monocytes % % Eosinophils % % Basophils % % Neutrophils # (1.3-7.7) k/uL Lymphocytes # (1.0-4.8) k/uL Monocytes # (0-1.0) k/uL Eosinophils # (0-0.7) k/uL Basophils # (0-0.2) k/uL Anisocytosis PT (9.0-12.0) sec INR (<1.2) APTT (22.0-30.0) sec Sodium (137-145) mmol/L Potassium (3.5-5.1) mmol/L Chloride (98-107) mmol/L Carbon Dioxide (22-30) mmol/L Anion Gap mmol/L BUN (9-20) mg/dL Creatinine (0.66-1.25) mg/dL Est GFR (CKD-EPI)AfAm (>60 ml/min/1.73 sqM) Est GFR (CKD-EPI)NonAf (>60 ml/min/1.73 sqM) Glucose (74-99) mg/dL Plasma Lactic Acid Steven 0.9 (0.7-2.0) mmol/L Calcium (8.4-10.2) mg/dL Magnesium (1.6-2.3) mg/dL Total Bilirubin (0.2-1.3) mg/dL AST (17-59) U/L ALT (4-49) U/L Alkaline Phosphatase (38-126) U/L Troponin I 0.013 (0.000-0.034) ng/mL NT-Pro-B Natriuret Pep pg/mL Total Protein (6.3-8.2) g/dL Albumin (3.5-5.0) g/dL Coronavirus (PCR) (Not Detectd) Influenza Type A RNA Not Detected (Not Detectd) Influenza Type B (PCR) Not Detected (Not Detectd) 03/03/22 03/03/22 Range/Units 11:18 11:18 WBC (3.8-10.6) k/uL RBC (4.30-5.90) m/uL Hgb (13.0-17.5) gm/dL Hct (39.0-53.0) % MCV (80.0-100.0) fL MCH (25.0-35.0) pg MCHC (31.0-37.0) g/dL RDW (11.5-15.5) % Plt Count (150-450) k/uL MPV Neutrophils % % Lymphocytes % % Monocytes % % Eosinophils % % Basophils % % Neutrophils # (1.3-7.7) k/uL Lymphocytes # (1.0-4.8) k/uL Monocytes # (0-1.0) k/uL Eosinophils # (0-0.7) k/uL Basophils # (0-0.2) k/uL Anisocytosis PT (9.0-12.0) sec INR (<1.2) APTT (22.0-30.0) sec Sodium (137-145) mmol/L Potassium (3.5-5.1) mmol/L Chloride (98-107) mmol/L Carbon Dioxide (22-30) mmol/L Anion Gap mmol/L BUN (9-20) mg/dL Creatinine (0.66-1.25) mg/dL Est GFR (CKD-EPI)AfAm (>60 ml/min/1.73 sqM) Est GFR (CKD-EPI)NonAf (>60 ml/min/1.73 sqM) Glucose (74-99) mg/dL Plasma Lactic Acid Steven (0.7-2.0) mmol/L Calcium (8.4-10.2) mg/dL Magnesium (1.6-2.3) mg/dL Total Bilirubin (0.2-1.3) mg/dL AST (17-59) U/L ALT (4-49) U/L Alkaline Phosphatase (38-126) U/L Troponin I (0.000-0.034) ng/mL NT-Pro-B Natriuret Pep 4260 pg/mL Total Protein (6.3-8.2) g/dL Albumin (3.5-5.0) g/dL Coronavirus (PCR) Not Detected (Not Detectd) Influenza Type A RNA (Not Detectd) Influenza Type B (PCR) (Not Detectd) Critical Care Time Critical Care Time: Yes Total Critical Care Time: 35 Disposition Clinical Impression: COPD exacerbation, Pulmonary edema, Bronchitis Disposition: ADMITTED IP TO THIS HOSP Referrals: Razia Holbrook MD [Primary Care Provider] - 1-2 days Time of Disposition: 14:36
[2022-03-03 11:29] LABS: Anisocytosis Slight; Basophils # (A) 0.1 k/uL (0-0.2); Basophils % (A) 1 %; Eosinophils # (A) 0.1 k/uL (0-0.7); Eosinophils % (A) 1 %; HCT 40.6 % (39.0-53.0); HGB 13.3 gm/dL (13.0-17.5); Lymphocytes # (A) 1.1 k/uL (1.0-4.8); Lymphocytes % (A) 8 %; MCH 30.7 pg (25.0-35.0); MCHC 32.7 g/dL (31.0-37.0); MCV 93.7 fL (80.0-100.0); Mean Platelet Volume 7.5; Monocytes # (A) 0.9 k/uL (0-1.0); Monocytes % (A) 7 %; Neutrophils # (A) 10.6 k/uL (1.3-7.7); Neutrophils % (A) 81 %; Platelet Count 304 k/uL (150-450); RBC 4.33 m/uL (4.30-5.90); WBC 13.1 k/uL (3.8-10.6)
[2022-03-03 11:44] LABS: Partial Thromboplastin Time 25.5 sec (22.0-30.0); Prothrombin Time 10.9 sec (9.0-12.0)
[2022-03-03 11:48] LABS: ALT 11 U/L (4-49); AST 17 U/L (17-59); African American GFR (CKD) >90 (>60 ml/min/1.73 sqM); Albumin 3.5 g/dL (3.5-5.0); Alkaline Phosphatase 94 U/L (38-126); Anion Gap 8 mmol/L; Blood Urea Nitrogen 19 mg/dL (9-20); Calcium 8.3 mg/dL (8.4-10.2); Carbon Dioxide 26 mmol/L (22-30); Chloride 99 mmol/L (98-107); Glucose 105 mg/dL (74-99); Magnesium 1.7 mg/dL (1.6-2.3); Non-African American GFR(CKD) >90 (>60 ml/min/1.73 sqM); Potassium 4.3 mmol/L (3.5-5.1); Sodium 133 mmol/L (137-145); Total Bilirubin 0.8 mg/dL (0.2-1.3); Total Protein 6.5 g/dL (6.3-8.2)
--- NOTE | 2022-03-03 13:22 | XR ---
EXAMINATION TYPE: XR chest 2V DATE OF EXAM: 03/03/2022 12:40 PM COMPARISON: Chest radiographs from 08/04/2021 TECHNIQUE: XR chest 2V Frontal and lateral views of the chest. CLINICAL INDICATION:Male, 71 years old with history of difficulty breathing; FINDINGS: Lungs/Pleura: Redemonstration of scattered . There is flattening of the diaphragm with increased luce ncy of the lung apices. There is no evidence of pleural effusion, focal consolidation, or pneumothora x. Pulmonary vascularity: Pulmonary vascular congestion suggested superimposed on COPD changes.. Heart/mediastinum: Cardiomediastinal silhouette is enlarged and stable. Musculoskeletal: No acute osseous pathology. IMPRESSION: Findings suspicious for combination of COPD with superimposed pulmonary vascular congestion. Correlat e with serum BNP.
[2022-03-03] MEDS ORDERED: FUROSEMIDE 10 MG/ML 4 ML VIAL IV STA (14:29)
[2022-03-03] MEDS: IPRATROPIUM-ALBUTEROL 3 ML NEB INHALATION PRN ×2 (14:55→20:49)
--- NOTE | 2022-03-03 16:17 | P.HPIM ---
History of Present Illness H&P Date: 03/03/22 This is a 72-year-old pleasant gentleman, well-known to my practice, as well as Dr. Mireles. Patient has advanced ceroid dependent COPD, chronic hypoxemic respiratory failure, on 40% to cannula at home, lives with the , who has called me today as the patient is having some worsening shortness of breath, no edema, no hemoptysis, however there is some brown sputum expectoration, and fever. 100.8. Catapres was not done at home, Other significant history includes prior perforated duodenal ulcer, with exploring up to pay off perforated blood blister, incarcerated umbilical hernia, prior FEV1 of 46%, prior echocardiogram December 20 215-60% with concentric LVH, no AAS, moderate pulmonary hypertension, mild MR and mild TR. Chest x-ray, findings of COPD with superimposed pulmonary vascular congestion, no acute infiltrates, there is flattening of the diaphragm, with increased lucency of lung apices WC 13.1, INR 1.0, sodium 133, creatinine 0.79, glucose 105 no pro- calcitonin level obtained, [employer] proBNP is 4260, and a virus PCR negative influenza A and B is negative admitted for COPD CHF exacerbation, with febrile illness, no urinalysis obtained, we'll check the urine for pyuria, blood cultures, consult. Dr. Mireles pulmonary medicine IV Solu-Medrol, IV Lasix, empiric antibiotics, Rocephin and Zithromax Review of Systems Constitutional: Reports as per HPI, Reports anorexia, Reports chronic pain, Reports fatigue, Denies fever, Denies lethargy, Denies malaise new fever Ears, nose, mouth and throat: Reports as per HPI, Denies epistaxis, Denies mouth pain, Denies nasal congestion, Denies odynophagia, Denies sinus pain, Denies swelling in mouth, Denies swelling in throat, Denies voice changes Cardiovascular: Reports as per HPI, Reports decreased exercise tolerance, Reports dyspnea on exertion, Reports orthopnea, Reports shortness of breath, Denies chest pain, Denies edema, Denies leg edema, Denies palpitations, Denies rapid heart beat Respiratory: Reports as per HPI, Reports cough, Reports cough with sputum, Reports dyspnea, Reports home oxygen, Reports respiratory infections, Reports wheezing 4 L O2 at home Gastrointestinal: Reports as per HPI, Denies abdominal pain, Denies belching, Denies bloating, Denies BRBPR, Denies change in bowel habits, Denies coffee ground emesis, Denies constipation, Denies diarrhea, Denies dyspepsia, Denies early satiety, Denies excessive gas, Denies heartburn, Denies hematemesis, Denies hematochezia, Denies indigestion, Denies jaundice, Denies lactose intolerance, Denies loss of appetite, Denies melena, Denies nausea, Denies vomiting Genitourinary: Reports as per HPI, Denies urinary hesitancy, Denies urinary retention Musculoskeletal: Reports as per HPI, Denies arm numbness/tingling, Denies atrophy, Denies fractures, Denies frequent falls, Denies gait dysfunction, Denies hot joints, Denies leg numbness/tingling, Denies limitation of motion, Denies loss of height, Denies low back pain, Denies morning stiffness, Denies muscle cramps, Denies muscle weakness, Denies myalgias, Denies neck pain, Denies neck stiffness, Denies prior amputations, Denies redness of joints, Denies shooting arm pain, Denies shooting leg pain Integumentary: Reports as per HPI Neurological: Reports as per HPI Psychiatric: Reports as per HPI, Reports anxiety Endocrine: Reports as per HPI, Denies cold intolerance, Denies deepening of the voice, Denies excessive sweating, Denies excessive thirst, Denies fatigue, Denies flushing, Denies heat intolerance, Denies high blood sugars, Denies increase in ring/shoe/hat size, Denies low blood sugars, Denies nocturia, Denies palpitations, Denies polydipsia, Denies polyphagia, Denies polyuria, Denies proptosis, Denies recent glucocorticoid use, Denies thyroid mass, Denies weight change Hematologic/Lymphatic: Reports as per HPI Allergic/Immunologic: Reports as per HPI Past Medical History Past Medical History: Heart Failure, COPD, Hyperlipidemia, Osteoarthritis (OA), Pneumonia, Rheumatoid Arthritis (RA), Sleep Apnea/CPAP/BIPAP Additional Past Medical History / Comment(s): COPD, chronic hypoxic respiratory failure previous history of pneumoperitoneum related to a perforated duodenal ulcer, repair of an umbilical hernia, chronic back pain, back stenosis. History of Any Multi-Drug Resistant Organisms: None Reported Past Surgical History: Orthopedic Surgery Additional Past Surgical History / Comment(s): colonoscopy, repair of a perforated duodenal ulcer and repair of an incarcerated umbilical hernia Past Anesthesia/Blood Transfusion Reactions: No Reported Reaction Past Psychological History: Anxiety, Depression Additional Psychological History / Comment(s): Pt resides with his spouse of 38 yrs. He has home oxygen which he wears at 3-3.5L/NC. He has a nebulizer. Smoking Status: Former smoker Past Alcohol Use History: Daily Additional Past Alcohol Use History / Comment(s): Patient smoked 2 packs per day for 40+ years. He quit 6 years ago. He denies any illicit drug use or marijuana use. He drinks 2 beers per day but none since previous admission and December. Patient was in the [employer] 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 Mother Family Medical History: Cancer, CVA/TIA, Dementia, Diabetes Mellitus Additional Family Medical History / Comment(s): Mother is 88yrs old with history of dementia and colon cancer. Sister(s) Additional Family Medical History / Comment(s): Patient 3 sons with no major medical problems. Thrombosis Risk Factor Assmnt - Choose All That Apply Any of the Below Risk Factors Present?: Yes Each Factor Represents 1 point: Abnormal pulmonary function (COPD), Medical pt on bed rest, Serious lung disease incl. pneumonia (< 1month) Other Risk Factors: Yes Each Risk Factor Represents 2 Points: Age 61-74 years, Patient confined to bed Thrombosis Risk Factor Assessment Total Risk Factor Score: 7 Thrombosis Risk Factor Assessment Level: High Risk Assessment and Plan Plan: 1. Acute on chronic hypoxic respiratory failure secondary to COPD exacerbation with extensive pulmonary fibrosis, associated interstitial lung disease. Continue DuoNeb treatments every 4 hours, , Pulmicort 1 mg twice daily, was on pathology, Mucinex 1200 mg twice daily, Zithromax and Rocephin IV Solu-Medrol 60 mg every 6 hours, sputum culture pro-calcitonin 2. End-stage COPD, chronic hypoxemic respiratory failure acute on chronic present prior to admission on chronic prednisone and frequent hospitalization, secondary to COPD, containing 4 L of O2 at home, decompensated with current exacerbation, requiring IV steroids, IV antibiotic, sputum culture, known to the pulmonary service, Dr. Mireles to see for pulmonary consult 3. Osteoporotic thoracic fractures compression and chronic pain, on chronic opiates, 4. History of duodenal ulceration and GI bleed, with surgical repair, and repair of incarcerated umbilical hernia, with subsequent development of intraperitoneal abscess requiring incision and drainage, and prolonged antibiotic course chronically on PPI, we will discontinue Plavix at this time, no history of heart disease or CVA, no history of stents at risk for bleed specially with ongoing chronic prednisone use 5. Chronic prednisone, with cushingoid features, patient is unable to be without prednisone without decompensating pulmonary status,, 6. Moderate pulmonary hypertension. 7. Hypertension. Continue Toprol-XL 25 mg daily. 8. Rheumatoid arthritis, with polyarthritis, and chronic joint abnormalities stable. On chronic opiates not on disease modifying agents at this time 9. Hyperlipidemia. Continue atorvastatin 40 mg at bedtime. 10. Obstructive sleep apnea unable to tolerate CPAP. 11. Chronic back pain and generalized osteoarthritis. Continue [place] as needed, gabapentin 300 mg at bedtime 12. History of diastolic CHF, ejection fraction is normal, check for [employer] proBNP 13. Generalized anxiety disorder and recurrent depression. Continue Zoloft 150 mg daily, Elavil 10 mg at bedtime. 14. DVT prophylaxis. Heparin subcu. 15. GI prophylaxis. Continue Protonix daily. 16. Insomnia. Continue Elavil 10 mg at bedtime. 17. Coronavirus PCR is negative DISCHARGE PLAN Home with [facility]. Consult PT and OT. Laboratory Results - Last 24 Hours 03/03/22 03/03/22 03/03/22 11:18 11:18 11:18 WBC 13.1 H RBC 4.33 Hgb 13.3 Hct 40.6 MCV 93.7 MCH 30.7 MCHC 32.7 RDW 17.0 H Plt Count 304 MPV 7.5 Neutrophils % 81 Lymphocytes % 8 Monocytes % 7 Eosinophils % 1 Basophils % 1 Neutrophils # 10.6 H Lymphocytes # 1.1 Monocytes # 0.9 Eosinophils # 0.1 Basophils # 0.1 Anisocytosis Slight PT 10.9 INR 1.0 APTT 25.5 Sodium 133 L Potassium 4.3 Chloride 99 Carbon Dioxide 26 Anion Gap 8 BUN 19 Creatinine 0.79 Est GFR (CKD-EPI)AfAm >90 Est GFR (CKD-EPI)NonAf >90 Glucose 105 H Plasma Lactic Acid Steven Calcium 8.3 L Magnesium 1.7 Total Bilirubin 0.8 AST 17 ALT 11 Alkaline Phosphatase 94 Troponin I NT-Pro-B Natriuret Pep Total Protein 6.5 Albumin 3.5 Coronavirus (PCR) Influenza Type A RNA Influenza Type B (PCR) 03/03/22 03/03/22 03/03/22 11:18 11:18 11:18 WBC RBC Hgb Hct MCV MCH MCHC RDW Plt Count MPV Neutrophils % Lymphocytes % Monocytes % Eosinophils % Basophils % Neutrophils # Lymphocytes # Monocytes # Eosinophils # Basophils # Anisocytosis PT INR APTT Sodium Potassium Chloride Carbon Dioxide Anion Gap BUN Creatinine Est GFR (CKD-EPI)AfAm Est GFR (CKD-EPI)NonAf Glucose Plasma Lactic Acid Steven 0.9 Calcium Magnesium Total Bilirubin AST ALT Alkaline Phosphatase Troponin I 0.013 NT-Pro-B Natriuret Pep Total Protein Albumin Coronavirus (PCR) Influenza Type A RNA Not Detected Influenza Type B (PCR) Not Detected 03/03/22 03/03/22 11:18 11:18 WBC RBC Hgb Hct MCV MCH MCHC RDW Plt Count MPV Neutrophils % Lymphocytes % Monocytes % Eosinophils % Basophils % Neutrophils # Lymphocytes # Monocytes # Eosinophils # Basophils # Anisocytosis PT INR APTT Sodium Potassium Chloride Carbon Dioxide Anion Gap BUN Creatinine Est GFR (CKD-EPI)AfAm Est GFR (CKD-EPI)NonAf Glucose Plasma Lactic Acid Steven Calcium Magnesium Total Bilirubin AST ALT Alkaline Phosphatase Troponin I NT-Pro-B Natriuret Pep 4260 Total Protein Albumin Coronavirus (PCR) Not Detected Influenza Type A RNA Influenza Type B (PCR) Home Medications Medication Instructions Recorded Confirmed Metoprolol Succinate [Toprol XL] 25 mg PO DAILY 01/12/20 08/04/21 Sertraline [Zoloft] 150 mg PO DAILY 01/12/20 08/04/21 Amitriptyline HCl [Elavil] 10 mg PO HS 12/06/20 08/04/21 Celecoxib [CeleBREX] 200 mg PO DAILY 12/06/20 08/04/21 Ascorbic Acid [Vitamin C] 1,000 mg PO DAILY 12/10/20 08/04/21 Ipratropium-Albuterol Nebulize 3 ml INHALATION RT-QID 12/10/20 08/04/21 [Duoneb 0.5 mg-3 mg/3 ml Soln] Budesonide [Pulmicort] 0.5 mg INHALATION RT-BID 07/10/21 08/04/21 Fluticasone Nasal [place] [Flonase 2 spr EA NOSTRIL DAILY 07/10/21 08/04/21 Nasal [place]] Acetaminophen [Tylenol] 650 mg PO Q6H PRN 07/23/21 08/04/21 Calcium Carbonate 1,000 mg PO Q8H PRN 07/23/21 08/04/21 Multivitamins, Thera [Multivitamin 1 tab PO DAILY 07/23/21 08/04/21 (formulary)] Alendronate Sodium [Fosamax] 70 mg PO Q7D 03/03/22 03/03/22 Atorvastatin [Lipitor] 40 mg PO HS 03/03/22 03/03/22 Benzonatate [Tessalon Perles] 100 - 200 mg PO Q8H 03/03/22 03/03/22 Fluticasone/Umeclidin/Vilanter 1 puff INHALATION RT-DAILY 03/03/22 03/03/22 [Trelemely Ellipta 100-62.5-25] Furosemide [Lasix] 40 mg PO BID 03/03/22 03/03/22 Omeprazole 40 mg PO DAILY 03/03/22 03/03/22 predniSONE 2.5 mg PO DAILY 03/03/22 03/03/22 Previous Rx's Medication Instructions Recorded Clopidogrel [Plavix] 75 mg PO DAILY #14 tab 12/13/20 Thiamine [Vitamin B-1] 100 mg PO BID-W/MEALS tab 07/12/21 HYDROcodone/APAP 10-325MG [[place] 1 tab PO Q8HR PRN 3 Days #9 tab 07/27/21 10-325] Vital Signs - 24 hr 03/03/22 03/03/22 03/03/22 10:40 10:47 11:23 Temperature 97.8 F Pulse Rate 108 H 102 H Pulse Rate [ Pulse Oximetery ] Respiratory 20 20 18 Rate Blood Pressure 141/96 Blood Pressure [Left Arm] O2 Sat by Pulse 81 L Oximetry 03/03/22 03/03/22 03/03/22 11:38 14:54 14:55 Temperature 98.2 F Pulse Rate 102 H 84 83 Pulse Rate [ Pulse Oximetery ] Respiratory 20 16 18 Rate Blood Pressure 92/53 Blood Pressure [Left Arm] O2 Sat by Pulse 94 L Oximetry 03/03/22 03/03/22 15:05 15:45 Temperature 97.7 F Pulse Rate 81 Pulse Rate [ 91 Pulse Oximetery ] Respiratory 18 19 Rate Blood Pressure Blood Pressure 94/61 [Left Arm] O2 Sat by Pulse 93 L Oximetry Past Medical History Past Medical History: Heart Failure, COPD, Hyperlipidemia, Osteoarthritis (OA), Pneumonia, Rheumatoid Arthritis (RA), Sleep Apnea/CPAP/BIPAP Additional Past Medical History / Comment(s): COPD, chronic hypoxic respiratory failure previous history of pneumoperitoneum related to a perforated duodenal ulcer, repair of an umbilical hernia, chronic back pain, back stenosis, History of Any Multi-Drug Resistant Organisms: None Reported Past Surgical History: Orthopedic Surgery Additional Past Surgical History / Comment(s): colonoscopy, repair of a perforated duodenal ulcer and repair of an incarcerated umbilical hernia Past Anesthesia/Blood Transfusion Reactions: No Reported Reaction Past Psychological History: Anxiety, Depression Additional Psychological History / Comment(s): Pt resides with his spouse of 38 yrs. He has home oxygen which he wears at 3-3.5L/NC. He has a nebulizer. Smoking Status: Former smoker Past Alcohol Use History: Daily Additional Past Alcohol Use History / Comment(s): Patient smoked 2 packs per day for 40+ years. He quit 6 years ago. He denies any illicit drug use or marijuan a use. He drinks 2 beers per day but none since previous admission and December. 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 Mother Family Medical History: Cancer, CVA/TIA, Dementia, Diabetes Mellitus Additional Family Medical History / Comment(s): Mother is 88yrs old with history of dementia and colon cancer. Sister(s) Additional Family Medical History / Comment(s): Patient 3 sons with no major medical problems. Medications and Allergies Home Medications Medication Instructions Recorded Confirmed Type Metoprolol Succinate [Toprol XL] 25 mg PO DAILY 01/12/20 03/03/22 History Sertraline [Zoloft] 150 mg PO DAILY 01/12/20 03/03/22 History Amitriptyline HCl [Elavil] 10 mg PO HS 12/06/20 03/03/22 History Celecoxib [CeleBREX] 200 mg PO DAILY 12/06/20 03/03/22 History Ascorbic Acid [Vitamin C] 1,000 mg PO DAILY 12/10/20 03/03/22 History Ipratropium-Albuterol Nebulize 3 ml INHALATION RT-QID 12/10/20 03/03/22 History [Duoneb 0.5 mg-3 mg/3 ml Soln] Clopidogrel [Plavix] 75 mg PO DAILY #14 tab 12/13/20 03/03/22 Rx Fluticasone Nasal [place] [Flonase 1 spr EA NOSTRIL BID 07/10/21 03/03/22 History Nasal [place]] Thiamine [Vitamin B-1] 100 mg PO BID-W/MEALS tab 07/12/21 03/03/22 Rx Acetaminophen [Tylenol] 650 mg PO Q6H PRN 07/23/21 03/03/22 History Calcium Carbonate 1,000 mg PO Q8H PRN 07/23/21 03/03/22 History Multivitamins, Thera [Multivitamin 1 tab PO DAILY 07/23/21 03/03/22 History (formulary)] HYDROcodone/APAP 10-325MG [[place] 1 tab PO Q8HR PRN 3 Days #9 tab 07/27/21 03/03/22 Rx 10-325] Alendronate Sodium [Fosamax] 70 mg PO MO 03/03/22 03/03/22 History Atorvastatin [Lipitor] 40 mg PO HS 03/03/22 03/03/22 History Benzonatate [Tessalon Perles] 100 - 200 mg PO Q8H 03/03/22 03/03/22 History Fluticasone/Umeclidin/Vilanter 1 puff INHALATION RT-DAILY 03/03/22 03/03/22 History [Trelegy Ellipta 100-62.5-25] Furosemide [Lasix] 40 mg PO DAILY 03/03/22 03/03/22 History Omeprazole 40 mg PO DAILY 03/03/22 03/03/22 History predniSONE 2.5 mg PO DAILY 03/03/22 03/03/22 History Allergies Allergy/AdvReac Type Severity Reaction Status Date / Time amoxicillin AdvReac Nausea & Verified 03/03/22 16:09 Vomiting Physical Exam Vitals: Vital Signs Temp Pulse Pulse Resp BP BP Pulse Ox 03/03/22 15:45 97.7 F 91 19 94/61 93 L 03/03/22 15:05 81 18 03/03/22 14:55 83 18 03/03/22 14:54 98.2 F 84 16 92/53 94 L 03/03/22 11:38 102 H 20 03/03/22 11:23 102 H 18 03/03/22 10:47 20 03/03/22 10:40 97.8 F 108 H 20 141/96 81 L Intake and Output 03/03/22 03/03/22 03/03/22 06:59 14:59 22:59 Other: Weight 56.699 kg - Constitutional General appearance: average body habitus, cooperative, no acute distress - EENT Eyes: EOMI, PERRLA, normal appearance - Respiratory Respiratory: bilateral: diminished, wheezing - Cardiovascular Rhythm: regular Heart sounds: normal: S1, S2 - Gastrointestinal General gastrointestinal: normal bowel sounds, soft - Integumentary Integumentary: decreased turgor, normal - Neurologic Neurologic: CNII-XII intact - Musculoskeletal Musculoskeletal: generalized weakness, strength equal bilaterally - Psychiatric Psychiatric: A&O x's 3, appropriate affect, intact judgment & insight Results CBC & Chem 7: 03/03/22 11:18 03/03/22 11:18 Labs: Abnormal Lab Results - Last 24 Hours (Table) 03/03/22 03/03/22 Range/Units 11:18 11:18 WBC 13.1 H (3.8-10.6) k/uL RDW 17.0 H (11.5-15.5) % Neutrophils # 10.6 H (1.3-7.7) k/uL Sodium 133 L (137-145) mmol/L Glucose 105 H (74-99) mg/dL Calcium 8.3 L (8.4-10.2) mg/dL Thrombosis Risk Factor Assmnt - Choose All That Apply Any of the Below Risk Factors Present?: Yes Each Factor Represents 1 point: Abnormal pulmonary function (COPD), Serious lung disease incl. pneumonia (< 1month) Other Risk Factors: Yes Each Risk Factor Represents 2 Points: Age 61-74 years Other congenital or acquired thrombophilia - If yes, enter type in comment: No Thrombosis Risk Factor Assessment Total Risk Factor Score: 4 Thrombosis Risk Factor Assessment Level: Moderate Risk
[2022-03-03] MEDS: methylPREDNISolone SOD SUCCI 125 MG/2 ML VIAL IV SCH (17:58)
[2022-03-03] MEDS: AZITHROMYCIN 500 MG in SODIUM CHLORIDE 0.9% 250 ML IVPB SCH (17:58)
[2022-03-03] MEDS: FUROSEMIDE 10 MG/ML 2 ML VIAL IV SCH (20:40)
[2022-03-03] MEDS ORDERED: CEFDINIR 300 MG CAP PO SCH (21:00)
[2022-03-03 21:15] LABS: Appearance,Urine Cloudy (Clear); Bilirubin,Urine Negative (Negative); Blood,Urine Negative (Negative); Color,Urine Light Yellow; Glucose,Urine (UA) Negative (Negative); Hyaline Casts,Urine 1 /lpf (0-2); Ketones,Urine Negative (Negative); Leukocyte Esterase,Urine Large (Negative); Mucus,Urine Rare /hpf; Nitrite,Urine Negative (Negative); Protein,Urine Negative (Negative); RBC,Urine 1 /hpf (0-5); Specific Gravity,Urine 1.007 (1.001-1.035); Urobilinogen,Urine <2.0 mg/dL (<2.0); WBC,Urine 98 /hpf (0-5)
[2022-03-04] MEDS: methylPREDNISolone SOD SUCCI 125 MG/2 ML VIAL IV SCH ×4 (00:16→18:04)
[2022-03-04] MEDS: FUROSEMIDE 10 MG/ML 2 ML VIAL IV SCH ×2 (08:29→20:28)
[2022-03-04] MEDS: SERTRALINE 50 MG TAB PO SCH (11:29)
[2022-03-04] MEDS: METOPROLOL SUCCINATE (ER) 25 MG TAB.ER.24H PO SCH (11:29)
[2022-03-04] MEDS: CLOPIDOGREL 75 MG TAB PO SCH (11:29)
[2022-03-04] MEDS ORDERED: HYDROcodone/APAP 10-325MG 1 EACH TAB PO PRN (11:40)
[2022-03-04] MEDS ORDERED: CALCIUM CARBONATE 500 MG CHEWABLE PO PRN (11:40)
[2022-03-04] MEDS ORDERED: ACETAMINOPHEN TAB 325 MG TAB PO PRN (11:40)
--- NOTE | 2022-03-04 11:47 | P.CNPUL ---
History of Present Illness Consult date: 03/04/22 Reason for consult: dyspnea History of present illness: 70-year-old male patient was presented to the hospital or symptoms of worsening shortness of breath, over the past several days. The patient has compromised lung including pulmonary fibrosis and the patient has been oxygen dependent. The patient also has a component of COPD. The patient apparently had a temperature of 100.0. Pulse ox is 86% on 3 L of oxygen by nasal cannula. No nausea. No vomiting. The patient no chest pain. He decided to come in to the emergency and the patient was found to have a white cell count of 15 with a normal coagulation profile, normal electrolytes, UA was abnormal with positive white cells and the proBNP level of 4260. COVID 19 testing was negative. Influenza screen was negative. The patient is currently on a combination of Rocephin and Zithromax. The patient is also on IV Solu-Medrol. The patient is being diuresis with Lasix 20 mg IV every 12 hours. Symptoms started approximately a week ago and worse over the past few days. According to the patient, he has history of COPD and pulmonary fibrosis. Based on the previous pulmonary function test, the patient's FEV1 has been order of 46% of predicted and FVC has been order of 72% of predicted and this is based on a spirometer this was done 2017. The patient has been steroid dependent for many years. He has history of rheumatoid arthritis and has been on immunosuppressive therapy in the past in the form of Humira injections. He has not taken Humira for now. The patient has chronic hypoxic respiratory failure and typically is on 3-1/2 L of oxygen by nasal cannula. He has been hospitalized in the past for septic shock and he has a previous history of duodenal ulcer perforation was repaired surgically. He has obstructive sleep apnea and his nontolerant to CPAP therapy. Review of Systems Constitutional: Reports fatigue, Reports fever, Reports lethargy, Reports poor appetite, Reports weakness Eyes: denies blurred vision, denies bulging eye, denies decreased vision Ears: deny: decreased hearing, ear discharge, earache, tinnitus Ears, nose, mouth and throat: Denies headache, Denies sore throat Cardiovascular: Reports decreased exercise tolerance, Reports dyspnea on exertion, Reports edema, Reports shortness of breath Respiratory: Reports dyspnea, Reports home oxygen, Reports wheezing, reports chronic shortness of breath and inugh. Gastrointestinal: Reports abdominal pain, Reports change in bowel habits, Reports dyspepsia, Reports indigestion, Reports loss of appetite, Reports nausea Genitourinary: Reports as per HPI Musculoskeletal: Reports as per HPI Musculoskeletal: bilateral: ankle swelling, absent: ankle pain, ankle stiffness Integumentary: Denies pruritus, Denies rash Neurological: Reports as per HPI, Reports weakness Psychiatric: Reports as per HPI Endocrine: Reports fatigue Hematologic/Lymphatic: Reports as per HPI Allergic/Immunologic: Reports as per Past Medical History Past Medical History: Heart Failure, COPD, Hyperlipidemia, Osteoarthritis (OA), Pneumonia, Rheumatoid Arthritis (RA), Sleep Apnea/CPAP/BIPAP Additional Past Medical History / Comment(s): COPD, chronic hypoxic respiratory failure previous history of pneumoperitoneum related to a perforated duodenal ulcer, repair of an umbilical hernia, chronic back pain, back stenosis, History of Any Multi-Drug Resistant Organisms: None Reported Past Surgical History: Orthopedic Surgery Additional Past Surgical History / Comment(s): colonoscopy, repair of a perforated duodenal ulcer and repair of an incarcerated umbilical hernia Past Anesthesia/Blood Transfusion Reactions: No Reported Reaction Past Psychological History: Anxiety, Depression Additional Psychological History / Comment(s): Pt resides with his spouse of 38 yrs. He has home oxygen which he wears at 3-3.5L/NC. He has a nebulizer. Smoking Status: Former smoker Past Alcohol Use History: Daily Additional Past Alcohol Use History / Comment(s): Patient smoked 2 packs per day for 40+ years. He quit 6 years ago. He denies any illicit drug use or marijuana use. He drinks 2 beers per day but none since previous admission and December. 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 Mother Family Medical History: Cancer, CVA/TIA, Dementia, Diabetes Mellitus Additional Family Medical History / Comment(s): Mother is 88yrs old with history of dementia and colon cancer. Sister(s) Additional Family Medical History / Comment(s): Patient 3 sons with no major medical problems. Medications and Allergies Home Medications Medication Instructions Recorded Confirmed Type Metoprolol Succinate [Toprol XL] 25 mg PO DAILY 01/12/20 03/03/22 History Sertraline [Zoloft] 150 mg PO DAILY 01/12/20 03/03/22 History Amitriptyline HCl [Elavil] 10 mg PO HS 12/06/20 03/03/22 History Celecoxib [CeleBREX] 200 mg PO DAILY 12/06/20 03/03/22 History Ascorbic Acid [Vitamin C] 1,000 mg PO DAILY 12/10/20 03/03/22 History Ipratropium-Albuterol Nebulize 3 ml INHALATION RT-QID 12/10/20 03/03/22 History [Duoneb 0.5 mg-3 mg/3 ml Soln] Clopidogrel [Plavix] 75 mg PO DAILY #14 tab 12/13/20 03/03/22 Rx Fluticasone Nasal [place] [Flonase 1 spr EA NOSTRIL BID 07/10/21 03/03/22 History Nasal [place]] Thiamine [Vitamin B-1] 100 mg PO BID-W/MEALS tab 07/12/21 03/03/22 Rx Acetaminophen [Tylenol] 650 mg PO Q6H PRN 07/23/21 03/03/22 History Calcium Carbonate 1,000 mg PO Q8H PRN 07/23/21 03/03/22 History Multivitamins, Thera [Multivitamin 1 tab PO DAILY 07/23/21 03/03/22 History (formulary)] HYDROcodone/APAP 10-325MG [[place] 1 tab PO Q8HR PRN 3 Days #9 tab 07/27/21 03/03/22 Rx 10-325] Alendronate Sodium [Fosamax] 70 mg PO MO 03/03/22 03/03/22 History Atorvastatin [Lipitor] 40 mg PO HS 03/03/22 03/03/22 History Benzonatate [Tessalon Perles] 100 - 200 mg PO Q8H 03/03/22 03/03/22 History Fluticasone/Umeclidin/Vilan[place] 1 puff INHALATION RT-DAILY 03/03/22 03/03/22 History [Trelegy Ellipta 100-62.5-25] Furosemide [Lasix] 40 mg PO DAILY 03/03/22 03/03/22 History Omeprazole 40 mg PO DAILY 03/03/22 03/03/22 History predniSONE 2.5 mg PO DAILY 03/03/22 03/03/22 History Allergies Allergy/AdvReac Type Severity Reaction Status Date / Time amoxicillin AdvReac Nausea & Verified 03/03/22 16:09 Vomiting Physical Exam Vitals: Vital Signs Temp Pulse Pulse Resp BP BP Pulse Ox 03/04/22 07:49 97.4 F L 73 18 96/56 95 03/04/22 01:10 97.7 F 72 16 100/61 98 03/03/22 20:58 83 03/03/22 20:51 86 03/03/22 20:00 96 20 03/03/22 19:26 97.4 F L 96 20 97/59 94 L 03/03/22 15:45 97.7 F 91 19 94/61 93 L 03/03/22 15:05 81 18 03/03/22 14:55 83 18 03/03/22 14:54 98.2 F 84 16 92/53 94 L 03/03/22 11:38 102 H 20 03/03/22 11:23 102 H 18 03/03/22 10:47 20 03/03/22 10:40 97.8 F 108 H 20 141/96 81 L Intake and Output 03/03/22 03/04/22 03/04/22 22:59 06:59 14:59 Other: Voiding Method Toilet Urinal # Voids 3 4 Appearance in mild degree of respirator distress and the patient is currently on oxygen at 3 L to maintain saturation above 90%. Head exam was generally normal. There was no scleral icterus or corneal arcus. Mucous membranes were moist. Neck was supple and without jugular venous distension, thyromegaly, or carotid bruits. Carotids were easily palpable bilaterally. There was no adenopathy. The patient is a Mallampati class IV was significant crowding of posterior oropharynx Lungs are diminished bilaterally and the patient has coarse crackles in lung bases and these are Velcro crackles typical of underlying pulmonary fibrosis Heart sounds are tachycardic, Cardiac exam revealed the PMI to be normally situated and sized. The rhythm was regular and no extrasystoles were noted during several minutes of auscultation. The first and second heart sounds were normal and physiologic splitting of the second heart sound was noted. There were no murmurs, rubs, clicks, or gallops. Abdominal exam revealed normal bowel sounds. The abdomen was soft, non-tender, and without masses, organomegaly, or appreciable enlargement of the abdominal aorta. scars of previous abdominal surgery over the anterior abdominal wall, and the patient also has a large anterior abdominal wall hernia which is easily reducible and there is no direct tenderness or rebound tensile guarding. Extremities revealed +1 edema lower diminished bilaterally especially in the le ft lower extremity. Pulses are diminished. There is no cyanosis or clubbing. Chronic joint deformities related to RA Neurologic the patient is awake and alert. Following commands and answering que stions appropriately. Focal neurological deficit. Examination of the skin revealed no evidence of significant rashes, suspicious appearing nevi or other concerning lesions. Results - Laboratory Findings CBC and BMP: 03/03/22 11:18 03/03/22 11:18 PT/INR, D-dimer PT 10.9 sec (9.0-12.0) 03/03/22 11:18 INR 1.0 (<1.2) 03/03/22 11:18 Abnormal lab findings: Abnormal Labs 03/03/22 03/03/22 03/03/22 11:18 11:18 20:46 WBC 13.1 H RDW 17.0 H Neutrophils # 10.6 H Sodium 133 L Glucose 105 H Calcium 8.3 L Ur Leukocyte Esterase Large H Urine WBC 98 H Urine Mucus Rare H - Diagnostic Findings Chest x-ray: image reviewed Assessment and Plan Plan: 1 acute exacerbation of chronic COPD/pulmonary fibrosis, with a possible compo nent of CHF as the patient's proBNP level is elevated. No major changes in the chest x-ray findings. Covid 19 testing was negative. Influenza screen was negative. 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 5 history of duodenal ulcer perforation requiring surgical repair and repair of incarcerated umbilical hernia, with subsequent development of intraperitoneal/abdominal abscess requiring incision and drainage and prolonged antibiotic course 7 rheumatoid arthritis, with secondary chronic joint deformities related to rheumatoid arthritis 8 obstructive sleep apnea not receiving any CPAP therapy at this point in time 9 chronic back pain 10 hyperlipidemia 11 osteoarthritis 12 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 PA pressure was 56 with a preserved LV function and mild LVH Plan Continue current antibiotic coverage Continue bronchodilators Continue Lasix, IV, 20 mg every 12 hours. Resume all medications We'll continue to follow
[2022-03-04 11:57] LABS: Basophils # (A) 0.03 X 10*3/uL (0.00-0.10); Basophils % (A) 0.3 %; Eosinophils # (A) 0 X 10*3/uL (0.04-0.35); Eosinophils % (A) 0 %; HCT 36.3 % (39.6-50.0); HGB 11.6 g/dL (13.0-17.0); Immature Grans, Automated 0.4 %; Lymphocytes # (A) 0.74 X 10*3/uL (0.90-5.00); Lymphocytes % (A) 6.5 %; MCV 90.8 fL (80.0-97.0); Mean Platelet Volume 10.5 fL (9.5-12.2); Monocytes # (A) 0.24 X 10*3/uL (0.20-1.00); Monocytes % (A) 2.1 %; NRBC Per 100 WBC 0 /100 WBCS (0.0-0.0); Neutrophils # (A) 10.29 X 10*3/uL (1.80-7.70); Neutrophils % (A) 90.7 %; Platelet Count 304 X 10*3/uL (140-440); RDW 17.5 % (11.5-14.5); WBC 11.35 X 10*3/uL (4.50-10.00)
--- NOTE | 2022-03-04 12:49 | P.PN ---
Subjective Progress Note Date: 03/04/22 H&P Date: 03/03/22 This is a 72-year-old pleasant gentleman, well-known to my practice, as well as Dr. Mireles. Patient has advanced ceroid dependent COPD, chronic hypoxemic respiratory failure, on 40% to cannula at home, lives with the , who has called me today as the patient is having some worsening shortness of breath, no edema, no hemoptysis, however there is some brown sputum expectoration, and fever. 100.8. Catapres was not done at home, Other significant history includes prior perforated duodenal ulcer, with exploring up to pay off perforated blood blister, incarcerated umbilical hernia, prior FEV1 of 46%, prior echocardiogram December 20 2155-60% with concentric LVH, no AAS, moderate pulmonary hypertension, mild MR and mild TR. 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 Dr. Mireles pulmonary medicine IV Solu-Medrol, IV Lasix, empiric antibiotics, Rocephin and Zithromax 03/04: Patient has less shortness of breath, no fevers, pyuria noted, some productive purulent sputum, clean, no difficulty breathing, pulse ox at 91-98% on 3-4 L nasal cannula, blood pressure is between 96-100, systolic patient is on Rocephin and Zithromax, to cover both purulent thick bronchitis, and UTI, cultures are sent, pending currently. Sputum requested for cultures and Gram stain patient is on Solu-Medrol, 60 mg every 6 hours, patient is on chronic oral prednisone maintenance at home 2.5 mg daily, pulmonary would follow, Dr. Mireles Review of Systems Constitutional: Reports as per HPI, Reports anorexia, Reports chronic pain, Reports fatigue, Denies fever, Denies lethargy, Denies malaise new fever Ears, nose, mouth and throat: Reports as per HPI, Denies epistaxis, Denies mouth pain, Denies nasal congestion, Denies odynophagia, Denies sinus pain, Denies swelling in mouth, Denies swelling in throat, Denies voice changes Cardiovascular: Reports as per HPI, Reports decreased exercise tolerance, Reports dyspnea on exertion, Reports orthopnea, Reports shortness of breath, Denies chest pain, Denies edema, Denies leg edema, Denies palpitations, Denies rapid heart beat Respiratory: Reports as per HPI, Reports cough, Reports cough with sputum, Reports dyspnea, Reports home oxygen, Reports respiratory infections, Reports wheezing 4 L O2 at home Gastrointestinal: Reports as per HPI, Denies abdominal pain, Denies belching, Denies bloating, Denies BRBPR, Denies change in bowel habits, Denies coffee ground emesis, Denies constipation, Denies diarrhea, Denies dyspepsia, Denies early satiety, Denies excessive gas, Denies heartburn, Denies hematemesis, Denies hematochezia, Denies indigestion, Denies jaundice, Denies lactose intolerance, Denies loss of appetite, Denies melena, Denies nausea, Denies vomiting Genitourinary: Reports as per HPI, Denies urinary hesitancy, Denies urinary retention Musculoskeletal: Reports as per HPI, Denies arm numbness/tingling, Denies atrophy, Denies fractures, Denies frequent falls, Denies gait dysfunction, Denies hot joints, Denies leg numbness/tingling, Denies limitation of motion, Denies loss of height, Denies low back pain, Denies morning stiffness, Denies muscle cramps, Denies muscle weakness, Denies myalgias, Denies neck pain, Denies neck stiffness, Denies prior amputations, Denies redness of joints, Denies shooting arm pain, Denies shooting leg pain Integumentary: Reports as per HPI Neurological: Reports as per HPI Psychiatric: Reports as per HPI, Reports anxiety Endocrine: Reports as per HPI, Denies cold intolerance, Denies deepening of the voice, Denies excessive sweating, Denies excessive thirst, Denies fatigue, Denies flushing, Denies heat intolerance, Denies high blood sugars, Denies increase in ring/shoe/hat size, Denies low blood sugars, Denies nocturia, Denies palpitations, Denies polydipsia, Denies polyphagia, Denies polyuria, Denies proptosis, Denies recent glucocorticoid use, Denies thyroid mass, Denies weight change Hematologic/Lymphatic: Reports as per HPI Allergic/Immunologic: Reports as per HPI Physical examination - Constitutional General appearance: average body habitus, cooperative, no acute distress - EENT Eyes: EOMI, PERRLA, normal appearance - Respiratory Respiratory: bilateral: diminished, wheezing - Cardiovascular Rhythm: regular Heart sounds: normal: S1, S2 - Gastrointestinal General gastrointestinal: normal bowel sounds, soft - Integumentary Integumentary: decreased turgor, normal - Neurologic Neurologic: CNII-XII intact - Musculoskeletal Musculoskeletal: generalized weakness, strength equal bilaterally - Psychiatric Psychiatric: A&O x's 3, appropriate affect, intact judgment & insight Vital Signs - 24 hr 03/03/22 03/03/22 03/03/22 11:23 11:38 14:54 Temperature 98.2 F Pulse Rate 102 H 102 H 84 Pulse Rate [ Pulse Oximetery ] Respiratory 18 20 16 Rate Blood Pressure 92/53 Blood Pressure [Left Arm] O2 Sat by Pulse 94 L Oximetry 03/03/22 03/03/22 03/03/22 14:55 15:05 15:45 Temperature 97.7 F Pulse Rate 83 81 Pulse Rate [ 91 Pulse Oximetery ] Respiratory 18 18 19 Rate Blood Pressure Blood Pressure 94/61 [Left Arm] O2 Sat by Pulse 93 L Oximetry 03/03/22 03/03/22 03/03/22 19:26 20:00 20:51 Temperature 97.4 F L Pulse Rate 86 Pulse Rate [ 96 96 Pulse Oximetery ] Respiratory 20 20 Rate Blood Pressure Blood Pressure 97/59 [Left Arm] O2 Sat by Pulse 94 L Oximetry 03/03/22 03/04/22 03/04/22 20:58 01:10 07:49 Temperature 97.7 F 97.4 F L Pulse Rate 83 Pulse Rate [ 72 73 Pulse Oximetery ] Respiratory 16 18 Rate Blood Pressure Blood Pressure 100/61 96/56 [Left Arm] O2 Sat by Pulse 98 95 Oximetry Laboratory Results - Last 24 Hours 03/03/22 03/03/22 03/03/22 11:18 11:18 11:18 WBC 13.1 H RBC 4.33 Hgb 13.3 Hct 40.6 MCV 93.7 MCH 30.7 MCHC 32.7 RDW 17.0 H Plt Count 304 MPV 7.5 Neutrophils % 81 Lymphocytes % 8 Monocytes % 7 Eosinophils % 1 Basophils % 1 Neutrophils # 10.6 H Lymphocytes # 1.1 Monocytes # 0.9 Eosinophils # 0.1 Basophils # 0.1 Anisocytosis Slight PT 10.9 INR 1.0 APTT 25.5 Sodium 133 L Potassium 4.3 Chloride 99 Carbon Dioxide 26 Anion Gap 8 BUN 19 Creatinine 0.79 Est GFR (CKD-EPI)AfAm >90 Est GFR (CKD-EPI)NonAf >90 Glucose 105 H Plasma Lactic Acid Steven Calcium 8.3 L Magnesium 1.7 Total Bilirubin 0.8 AST 17 ALT 11 Alkaline Phosphatase 94 Troponin I NT-Pro-B Natriuret Pep Total Protein 6.5 Albumin 3.5 Urine Color Urine Appearance Urine pH Ur Specific [place] Urine Protein Urine Glucose (UA) Urine Ketones Urine Blood Urine Nitrite Urine Bilirubin Urine Urobilinogen Ur Leukocyte Esterase Urine RBC Urine WBC Hyaline Casts Urine Mucus Coronavirus (PCR) Influenza Type A RNA Influenza Type B (PCR) 03/03/22 03/03/22 03/03/22 11:18 11:18 11:18 WBC RBC Hgb Hct MCV MCH MCHC RDW Plt Count MPV Neutrophils % Lymphocytes % Monocytes % Eosinophils % Basophils % Neutrophils # Lymphocytes # Monocytes # Eosinophils # Basophils # Anisocytosis PT INR APTT Sodium Potassium Chloride Carbon Dioxide Anion Gap BUN Creatinine Est GFR (CKD-EPI)AfAm Est GFR (CKD-EPI)NonAf Glucose Plasma Lactic Acid Steven 0.9 Calcium Magnesium Total Bilirubin AST ALT Alkaline Phosphatase Troponin I 0.013 NT-Pro-B Natriuret Pep Total Protein Albumin Urine Color Urine Appearance Urine pH Ur Specific [place] Urine Protein Urine Glucose (UA) Urine Ketones Urine Blood Urine Nitrite Urine Bilirubin Urine Urobilinogen Ur Leukocyte Esterase Urine RBC Urine WBC Hyaline Casts Urine Mucus Coronavirus (PCR) Influenza Type A RNA Not Detected Influenza Type B (PCR) Not Detected 03/03/22 03/03/22 03/03/22 11:18 11:18 20:46 WBC RBC Hgb Hct MCV MCH MCHC RDW Plt Count MPV Neutrophils % Lymphocytes % Monocytes % Eosinophils % Basophils % Neutrophils # Lymphocytes # Monocytes # Eosinophils # Basophils # Anisocytosis PT INR APTT Sodium Potassium Chloride Carbon Dioxide Anion Gap BUN Creatinine Est GFR (CKD-EPI)AfAm Est GFR (CKD-EPI)NonAf Glucose Plasma Lactic Acid Steven Calcium Magnesium Total Bilirubin AST ALT Alkaline Phosphatase Troponin I NT-Pro-B Natriuret Pep 4260 Total Protein Albumin Urine Color Light Yellow Urine Appearance Cloudy Urine pH 5.0 Ur Specific [place] 1.007 Urine Protein Negative Urine Glucose (UA) Negative Urine Ketones Negative Urine Blood Negative Urine Nitrite Negative Urine Bilirubin Negative Urine Urobilinogen <2.0 Ur Leukocyte Esterase Large H Urine RBC 1 Urine WBC 98 H Hyaline Casts 1 Urine Mucus Rare H Coronavirus (PCR) Not Detected Influenza Type A RNA Influenza Type B (PCR) Active Medications Generic Name Dose Route Start Last Admin Trade Name Freq PRN Reason Stop Dose Admin Albuterol/Ipratropium 3 ml 03/03/22 14:36 03/03/22 20:49 Ipratropium-Albuterol 3 Ml Neb INHALATION 3 ml RT-Q4H PRN Administration Shortness Of Breath Or Wheezing Atorvastatin Calcium 40 mg 03/04/22 21:00 Atorvastatin 40 Mg Tab PO HS LUCAS Clopidogrel Bisulfate 75 mg 03/04/22 10:45 Clopidogrel 75 Mg Tab PO DAILY LUCAS Furosemide 20 mg 03/03/22 21:00 03/04/22 08:29 Furosemide 10 Mg/Ml 2 Ml Vial IV 20 mg Q12HR LUCAS Administration Azithromycin 500 mg/ Sodium 250 mls @ 250 mls/hr 03/03/22 16:30 03/03/22 17:58 Chloride IVPB 03/05/22 17:29 250 mls/hr Q24H LUCAS Administration Protocol Ceftriaxone Sodium 1 gm/ 50 mls @ 100 mls/hr 03/04/22 12:00 Sodium Chloride IVPB Q24H LUCAS Protocol Methylprednisolone Sodium Succinate 60 mg 03/03/22 18:00 03/04/22 06:19 Methylprednisolone Sod Succi 125 Mg/2 Ml Vial IV 60 mg Q6HR LUCAS Administration Metoprolol Succinate 25 mg 03/04/22 10:45 Metoprolol Succinate (Er) 25 Mg Tab.Er.24h PO DAILY LUCAS Sertraline HCl 150 mg 03/04/22 10:45 Sertraline 50 Mg Tab PO DAILY LUCAS Objective - Vital Signs Vital signs: Vital Signs Temp 97.4 F L 03/04/22 07:49 Pulse 73 03/04/22 07:49 Resp 18 03/04/22 07:49 BP 96/56 03/04/22 07:49 Pulse Ox 95 03/04/22 07:49 FiO2 Intake & Output 03/03/22 03/04/22 03/04/22 18:59 06:59 18:59 Weight 56.699 kg Other: Voiding Method Toilet Urinal # Voids 3 4 - Labs CBC & Chem 7: 03/04/22 06:57 03/03/22 11:18 Labs: Abnormal Lab Results - Last 24 Hours (Table) 03/03/22 03/03/22 03/03/22 Range/Units 11:18 11:18 20:46 WBC 13.1 H (3.8-10.6) k/uL RDW 17.0 H (11.5-15.5) % Neutrophils # 10.6 H (1.3-7.7) k/uL Sodium 133 L (137-145) mmol/L Glucose 105 H (74-99) mg/dL Calcium 8.3 L (8.4-10.2) mg/dL Ur Leukocyte Esterase Large H (Negative) Urine WBC 98 H (0-5) /hpf Urine Mucus Rare H (None) /hpf
[2022-03-04] MEDS: IPRATROPIUM-ALBUTEROL 3 ML NEB INHALATION PRN (15:36)
[2022-03-04] MEDS: AZITHROMYCIN 500 MG in SODIUM CHLORIDE 0.9% 250 ML IVPB SCH (17:01)
[2022-03-04] MEDS: THIAMINE 100 MG TAB PO SCH (17:01)
[2022-03-04] MEDS: AMITRIPTYLINE HCL 10 MG TAB PO SCH (20:28)
[2022-03-04] MEDS: ATORVASTATIN 40 MG TAB PO SCH (20:28)
[2022-03-05] MEDS: methylPREDNISolone SOD SUCCI 125 MG/2 ML VIAL IV SCH ×2 (00:12→05:22)
[2022-03-05] MEDS ORDERED: SODIUM CHLORIDE 0.9% 500 ML 500 ML IV ONE (02:04)
[2022-03-05] MEDS: METOPROLOL SUCCINATE (ER) 25 MG TAB.ER.24H PO SCH (08:25)
[2022-03-05] MEDS: MULTIVITAMINS, THERA 1 EACH TAB PO SCH (08:25)
[2022-03-05] MEDS: SERTRALINE 50 MG TAB PO SCH (08:25)
[2022-03-05] MEDS: ASCORBIC ACID 500 MG TAB PO SCH (08:25)
[2022-03-05] MEDS: PANTOPRAZOLE 40 MG TABLET PO SCH (08:25)
[2022-03-05] MEDS: MELOXICAM 7.5 MG TAB PO SCH (08:25)
[2022-03-05] MEDS: CLOPIDOGREL 75 MG TAB PO SCH (08:25)
[2022-03-05] MEDS: THIAMINE 100 MG TAB PO SCH ×2 (08:25→16:58)
[2022-03-05] MEDS: IPRATROPIUM 0.5 MG/2.5 ML NEBU INHALATION SCH ×4 (08:29→20:08)
[2022-03-05] MEDS ORDERED: NON FORMULARY DRUG (Alendronate Sodium [Fosamax] 70 MG Tablet) PO SCH (09:00)
[2022-03-05] MEDS: FUROSEMIDE 10 MG/ML 2 ML VIAL IV SCH ×2 (09:27→20:40)
--- NOTE | 2022-03-05 11:20 | P.PN ---
Subjective Progress Note Date: 03/05/22 H&P Date: 03/03/22 This is a 72-year-old pleasant gentleman, well-known to my practice, as well as Dr. Mireles. Patient has advanced ceroid dependent COPD, chronic hypoxemic respiratory failure, on 40% to cannula at home, lives with the , who has called me today as the patient is having some worsening shortness of breath, no edema, no hemoptysis, however there is some brown sputum expectoration, and fever. 100.8. Catapres was not done at home, Other significant history includes prior perforated duodenal ulcer, with exploring up to pay off perforated blood blister, incarcerated umbilical hernia, prior FEV1 of 46%, prior echocardiogram December 20 2155-60% with concentric LVH, no AAS, moderate pulmonary hypertension, mild MR and mild TR. Chest x-ray, findings of COPD with superimposed pulmonary vascular congestion, no acute infiltrates, there is flattening of the diaphragm, with increased lucency of lung apices WC 13.1, INR 1.0, sodium 133, creatinine 0.79, glucose 105 no pro- calcitonin level obtained, [employer] proBNP is 4260, and a virus PCR negative influenza A and B is negative admitted for COPD CHF exacerbation, with febrile illness, no urinalysis obtained, we'll check the urine for pyuria, blood cultures, consult. Dr. Mireles pulmonary medicine IV Solu-Medrol, IV Lasix, empiric antibiotics, Rocephin and Zithromax 03/04: Patient has less shortness of breath, no fevers, pyuria noted, some productive purulent sputum, clean, no difficulty breathing, pulse ox at 91-98% on 3-4 L nasal cannula, blood pressure is between 96-100, systolic patient is on Rocephin and Zithromax, to cover both purulent thick bronchitis, and UTI, cultures are sent, pending currently. Sputum requested for cultures and Gram stain patient is on Solu-Medrol, 60 mg every 6 hours, patient is on chronic oral prednisone maintenance at home 2.5 mg daily, pulmonary would follow, Dr. Mireles 03/05, shortness breath is less, he is on 4 L nasal cannula, pulse ox 92%, patient was hypotensive last night, systolic in 80s, required a bolus only 500 mL, worrisome regarding CHF exacerbation, again was diuresed this morning, using low-dose Lasix 20 mg, has been started on midodrine, counseled regarding nutritional supplementation, urine cultures currently pending, Solu-Medrol l will be decreased to 40 mg every 8 hours awaiting finalized sputum cultures and urine cultures prior to discharge on IV Rocephin and Zithromax and a PT /OT ongoing, patient's debilitated prior to his admission Review of Systems Constitutional: Reports as per HPI, Reports anorexia, Reports chronic pain, Reports fatigue, Denies fever, Denies lethargy, Denies malaise new fever Ears, nose, mouth and throat: Reports as per HPI, Denies epistaxis, Denies mouth pain, Denies nasal congestion, Denies odynophagia, Denies sinus pain, Denies s welling in mouth, Denies swelling in throat, Denies voice changes Cardiovascular: Reports as per HPI, Reports decreased exercise tolerance, Reports dyspnea on exertion, Reports orthopnea, Reports shortness of breath, Denies chest pain, Denies edema, Denies leg edema, Denies palpitations, Denies rapid heart beat Respiratory: Reports as per HPI, Reports cough, Reports cough with sputum, Reports dyspnea, Reports home oxygen, Reports respiratory infections, Reports wheezing 4 L O2 at home Gastrointestinal: Reports as per HPI, Denies abdominal pain, Denies belching, Denies bloating, Denies BRBPR, Denies change in bowel habits, Denies coffee ground emesis, Denies constipation, Denies diarrhea, Denies dyspepsia, Denies early satiety, Denies excessive gas, Denies heartburn, Denies hematemesis, Denies hematochezia, Denies indigestion, Denies jaundice, Denies lactose intolerance, Denies loss of appetite, Denies melena, Denies nausea, Denies vomiting Genitourinary: Reports as per HPI, Denies urinary hesitancy, Denies urinary retention Musculoskeletal: Reports as per HPI, Denies arm numbness/tingling, Denies atrophy, Denies fractures, Denies frequent falls, Denies gait dysfunction, Denies hot joints, Denies leg numbness/tingling, Denies limitation of motion, Denies loss of height, Denies low back pain, Denies morning stiffness, Denies muscle cramps, Denies muscle weakness, Denies myalgias, Denies neck pain, Denies neck stiffness, Denies prior amputations, Denies redness of joints, Denies shooting arm pain, Denies shooting leg pain Integumentary: Reports as per HPI Neurological: Reports as per HPI Psychiatric: Reports as per HPI, Reports anxiety Endocrine: Reports as per HPI, Denies cold intolerance, Denies deepening of the voice, Denies excessive sweating, Denies excessive thirst, Denies fatigue, Denies flushing, Denies heat intolerance, Denies high blood sugars, Denies increase in ring/shoe/hat size, Denies low blood sugars, Denies nocturia, Denies palpitations, Denies polydipsia, Denies polyphagia, Denies polyuria, Denies proptosis, Denies recent glucocorticoid use, Denies thyroid mass, Denies weight change Hematologic/Lymphatic: Reports as per HPI Allergic/Immunologic: Reports as per HPI Physical examination - Constitutional General appearance: average body habitus, cooperative, no acute distress - EENT Eyes: EOMI, PERRLA, normal appearance - Respiratory Respiratory: bilateral: diminished, wheezing - Cardiovascular Rhythm: regular Heart sounds: normal: S1, S2 - Gastrointestinal General gastrointestinal: normal bowel sounds, soft - Integumentary Integumentary: decreased turgor, normal - Neurologic Neurologic: CNII-XII intact - Musculoskeletal Musculoskeletal: generalized weakness, strength equal bilaterally - Psychiatric Psychiatric: A&O x's 3, appropriate affect, intact judgment & insight Vital Signs - 24 hr Vital Signs - 24 hr 03/04/22 03/04/22 03/04/22 11:41 14:00 15:36 Temperature 97.9 F Pulse Rate 76 Pulse Rate [ 95 Pulse Oximetery ] Respiratory 20 Rate Blood Pressure 101/66 [Left Arm] Blood Pressure [Right Arm Sitting] O2 Sat by Pulse 91 L 92 L Oximetry 03/04/22 03/04/22 03/04/22 15:47 19:36 20:00 Temperature 98.3 F Pulse Rate 78 Pulse Rate [ 66 66 Pulse Oximetery ] Respiratory 18 18 Rate Blood Pressure 96/55 [Left Arm] Blood Pressure [Right Arm Sitting] O2 Sat by Pulse 94 L Oximetry 03/05/22 03/05/22 03/05/22 02:00 04:26 07:39 Temperature 97.6 F 98.1 F Pulse Rate Pulse Rate [ 75 82 Pulse Oximetery ] Respiratory 18 18 Rate Blood Pressure 86/55 101/52 95/47 [Left Arm] Blood Pressure [Right Arm Sitting] O2 Sat by Pulse 92 L 94 L Oximetry 03/05/22 03/05/22 03/05/22 08:30 08:43 09:29 Temperature Pulse Rate 80 80 Pulse Rate [ Pulse Oximetery ] Respiratory 20 Rate Blood Pressure 100/59 [Left Arm] Blood Pressure 104/62 [Right Arm Sitting] O2 Sat by Pulse 92 L Oximetry Laboratory Results - Last 24 Hours 03/03/22 03/03/22 03/03/22 11:18 11:18 11:18 WBC 13.1 H RBC 4.33 Hgb 13.3 Hct 40.6 MCV 93.7 MCH 30.7 MCHC 32.7 RDW 17.0 H Plt Count 304 MPV 7.5 Neutrophils % 81 Lymphocytes % 8 Monocytes % 7 Eosinophils % 1 Basophils % 1 Neutrophils # 10.6 H Lymphocytes # 1.1 Monocytes # 0.9 Eosinophils # 0.1 Basophils # 0.1 Anisocytosis Slight PT 10.9 INR 1.0 APTT 25.5 Sodium 133 L Potassium 4.3 Chloride 99 Carbon Dioxide 26 Anion Gap 8 BUN 19 Creatinine 0.79 Est GFR (CKD-EPI)AfAm >90 Est GFR (CKD-EPI)NonAf >90 Glucose 105 H Plasma Lactic Acid Steven Calcium 8.3 L Magnesium 1.7 Total Bilirubin 0.8 AST 17 ALT 11 Alkaline Phosphatase 94 Troponin I NT-Pro-B Natriuret Pep Total Protein 6.5 Albumin 3.5 Urine Color Urine Appearance Urine pH Ur Specific [place] Urine Protein Urine Glucose (UA) Urine Ketones Urine Blood Urine Nitrite Urine Bilirubin Urine Urobilinogen Ur Leukocyte Esterase Urine RBC Urine WBC Hyaline Casts Urine Mucus Coronavirus (PCR) Influenza Type A RNA Influenza Type B (PCR) 03/03/22 03/03/22 03/03/22 11:18 11:18 11:18 WBC RBC Hgb Hct MCV MCH MCHC RDW Plt Count MPV Neutrophils % Lymphocytes % Monocytes % Eosinophils % Basophils % Neutrophils # Lymphocytes # Monocytes # Eosinophils # Basophils # Anisocytosis PT INR APTT Sodium Potassium Chloride Carbon Dioxide Anion Gap BUN Creatinine Est GFR (CKD-EPI)AfAm Est GFR (CKD-EPI)NonAf Glucose Plasma Lactic Acid Steven 0.9 Calcium Magnesium Total Bilirubin AST ALT Alkaline Phosphatase Troponin I 0.013 NT-Pro-B Natriuret Pep Total Protein Albumin Urine Color Urine Appearance Urine pH Ur Specific [place] Urine Protein Urine Glucose (UA) Urine Ketones Urine Blood Urine Nitrite Urine Bilirubin Urine Urobilinogen Ur Leukocyte Esterase Urine RBC Urine WBC Hyaline Casts Urine Mucus Coronavirus (PCR) Influenza Type A RNA Not Detected Influenza Type B (PCR) Not Detected 03/03/22 03/03/22 03/03/22 11:18 11:18 20:46 WBC RBC Hgb Hct MCV MCH MCHC RDW Plt Count MPV Neutrophils % Lymphocytes % Monocytes % Eosinophils % Basophils % Neutrophils # Lymphocytes # Monocytes # Eosinophils # Basophils # Anisocytosis PT INR APTT Sodium Potassium Chloride Carbon Dioxide Anion Gap BUN Creatinine Est GFR (CKD-EPI)AfAm Est GFR (CKD-EPI)NonAf Glucose Plasma Lactic Acid Steven Calcium Magnesium Total Bilirubin AST ALT Alkaline Phosphatase Troponin I NT-Pro-B Natriuret Pep 4260 Total Protein Albumin Urine Color Light Yellow Urine Appearance Cloudy Urine pH 5.0 Ur Specific [place] 1.007 Urine Protein Negative Urine Glucose (UA) Negative Urine Ketones Negative Urine Blood Negative Urine Nitrite Negative Urine Bilirubin Negative Urine Urobilinogen <2.0 Ur Leukocyte Esterase Large H Urine RBC 1 Urine WBC 98 H Hyaline Casts 1 Urine Mucus Rare H Coronavirus (PCR) Not Detected Influenza Type A RNA Influenza Type B (PCR) Active Medications Generic Name Dose Route Start Last Admin Trade Name Freq PRN Reason Stop Dose Admin Albuterol/Ipratropium 3 ml 03/03/22 14:36 03/03/22 20:49 Ipratropium-Albuterol 3 Ml Neb INHALATION 3 ml RT-Q4H PRN Administration Shortness Of Breath Or Wheezing Atorvastatin Calcium 40 mg 03/04/22 21:00 Atorvastatin 40 Mg Tab PO HS LUCAS Clopidogrel Bisulfate 75 mg 03/04/22 10:45 Clopidogrel 75 Mg Tab PO DAILY LUCAS Furosemide 20 mg 03/03/22 21:00 03/04/22 08:29 Furosemide 10 Mg/Ml 2 Ml Vial IV 20 mg Q12HR LUCAS Administration Azithromycin 500 mg/ Sodium 250 mls @ 250 mls/hr 03/03/22 16:30 03/03/22 17:58 Chloride IVPB 03/05/22 17:29 250 mls/hr Q24H LUCAS Administration Protocol Ceftriaxone Sodium 1 gm/ 50 mls @ 100 mls/hr 03/04/22 12:00 Sodium Chloride IVPB Q24H [facility] Protocol Methylprednisolone Sodium Succinate 60 mg 03/03/22 18:00 03/04/22 06:19 Methylprednisolone Sod Succi 125 Mg/2 Ml Vial IV 60 mg Q6HR LUCAS Administration Metoprolol Succinate 25 mg 03/04/22 10:45 Metoprolol Succinate (Er) 25 Mg Tab.Er.24h PO DAILY [facility] Sertraline HCl 150 mg 03/04/22 10:45 Sertraline 50 Mg Tab PO DAILY [facility] Objective - Vital Signs Vital signs: Vital Signs Temp 98.1 F 03/05/22 07:39 Pulse 80 03/05/22 08:43 Resp 20 03/05/22 09:29 BP 100/59 03/05/22 09:29 Pulse Ox 92 L 03/05/22 09:29 FiO2 Intake & Output 03/04/22 03/05/22 03/05/22 18:59 06:59 18:59 Intake Total 120 Output Total 650 Balance -650 120 Intake: Oral 120 Output: Urine 650 Other: Voiding Method Toilet Urinal # Voids 2 - Labs CBC & Chem 7: 03/04/22 06:57 03/03/22 11:18 Labs: Abnormal Lab Results - Last 24 Hours (Table) 03/04/22 03/04/22 Range/Units 06:57 06:57 WBC 11.35 H (4.50-10.00) X 10*3/uL RBC 4.00 L (4.40-5.60) X 10*6/uL Hgb 11.6 L (13.0-17.0) g/dL Hct 36.3 L (39.6-50.0) % RDW 17.5 H (11.5-14.5) % Immature Gran # 0.05 H (0.00-0.04) X 10*3/uL Neutrophils # 10.29 H (1.80-7.70) X 10*3/uL Lymphocytes # 0.74 L (0.90-5.00) X 10*3/uL Eosinophils # 0 L (0.04-0.35) X 10*3/uL Procalcitonin 0.27 H (0.02-0.09) ng/mL Microbiology - Last 24 Hours (Table) 03/03/22 20:46 Urine Culture - Preliminary Urine,Voided 03/03/22 11:20 Blood Culture - Preliminary Blood No Growth after 24 hours 03/03/22 11:05 Blood Culture - Preliminary Blood No Growth after 24 hours
[2022-03-05] MEDS: SYMBICORT 80-4.5 MCG INHALER INHALATION SCH ×2 (11:48→20:08)
--- NOTE | 2022-03-05 14:08 | P.PN ---
Subjective Progress Note Date: 03/05/22 70-year-old male patient was presented to the hospital or symptoms of worsening shortness of breath, over the past several days. The patient has compromised lung including pulmonary fibrosis and the patient has been oxygen dependent. The patient also has a component of COPD. The patient apparently had a temperature of 100.0. Pulse ox is 86% on 3 L of oxygen by nasal cannula. No nausea. No vomiting. The patient no chest pain. He decided to come in to the emergency and the patient was found to have a white cell count of 15 with a normal coagulation profile, normal electrolytes, UA was abnormal with positive white cells and the proBNP level of 4260. COVID 19 testing was negative. Influenza screen was negative. The patient is currently on a combination of Rocephin and Zithromax. The patient is also on IV Solu-Medrol. The patient is being diuresis with Lasix 20 mg IV every 12 hours. Symptoms started approximately a week ago and worse over the past few days. According to the pat ient, he has history of COPD and pulmonary fibrosis. Based on the previous pulmonary function test, the patient's FEV1 has been order of 46% of predicted and FVC has been order of 72% of predicted and this is based on a spirometer this was done 2017. The patient has been steroid dependent for many years. He has history of rheumatoid arthritis and has been on immunosuppressive therapy in the past in the form of Humira injections. He has not taken Humira for now. The patient has chronic hypoxic respiratory failure and typically is on 3-1/2 L of oxygen by nasal cannula. He has been hospitalized in the past for septic shock and he has a previous history of duodenal ulcer perforation was repaired surgically. He has obstructive sleep apnea and his nontolerant to CPAP therapy. 03/05/2022, the patient is feeling slightly better. The patient is being there is IV Lasix. The fluid balance has been negative and the patient remains on Lasix 20 mg IV every 12 hours. The patient is also on IV Solu Medrol. The patient on DuoNeb neb treatments around the clock. No fever. No chills. No altered mentation. The white cell count 11.3 from yesterday and the Pronestyl level is at 0.27. Objective - Vital Signs Vital signs: Vital Signs Temp 98.1 F 03/05/22 07:39 Pulse 76 07/04/22 12:02 Resp 20 03/05/22 09:29 BP 100/59 03/05/22 09:29 Pulse Ox 92 L 03/05/22 09:29 FiO2 Intake & Output 03/04/22 03/05/22 03/05/22 18:59 06:59 18:59 Intake Total 120 Output Total 650 Balance -650 120 Intake: Oral 120 Output: Urine 650 Other: Voiding Method Toilet Urinal # Voids 2 - Exam Appearance in mild degree of respirator distress and the patient is currently on oxygen at 3 L to maintain saturation above 90%. Head exam was generally normal. There was no scleral icterus or corneal arcus. Mucous membranes were moist. Neck was supple and without jugular venous distension, thyromegaly, or carotid bruits. Carotids were easily palpable bilaterally. There was no adenopathy. The patient is a Mallampati class IV was significant crowding of posterior oropharynx Lungs are diminished bilaterally and the patient has coarse crackles in lung bases and these are Velcro crackles typical of underlying pulmonary fibrosis Heart sounds are tachycardic, Cardiac exam revealed the PMI to be normally situated and sized. The rhythm was regular and no extrasystoles were noted during several minutes of auscultation. The first and second heart sounds were normal and physiologic splitting of the second heart sound was noted. There were no murmurs, rubs, clicks, or gallops. Abdominal exam revealed normal bowel sounds. The abdomen was soft, non-tender, and without masses, organomegaly, or appreciable enlargement of the abdominal aorta. scars of previous abdominal surgery over the anterior abdominal wall, and the patient also has a large anterior abdominal wall hernia which is easily reducible and there is no direct tenderness or rebound tensile guarding. Extremities revealed +1 edema lower diminished bilaterally especially in the left lower extremity. Pulses are diminished. There is no cyanosis or clubbing. Chronic joint deformities related to RA Neurologic the patient is awake and alert. Following commands and answering questions appropriately. Focal neurological deficit. Examination of the skin revealed no evidence of significant rashes, suspicious appearing nevi or other concerning lesions. - Labs CBC & Chem 7: 03/04/22 06:57 03/03/22 11:18 Labs: Abnormal Lab Results - Last 24 Hours (Table) 03/04/22 Range/Units 06:57 Procalcitonin 0.27 H (0.02-0.09) ng/mL Microbiology - Last 24 Hours (Table) 03/03/22 11:20 Blood Culture - Preliminary Blood No Growth after 48 hours 03/03/22 11:05 Blood Culture - Preliminary Blood No Growth after 48 hours 03/03/22 20:46 Urine Culture - Final Urine,Voided Assessment and Plan Plan: 1 acute exacerbation of chronic COPD/pulmonary fibrosis, with a possible component of CHF as the patient's proBNP level is elevated. No major changes in the chest x-ray findings. Covid 19 testing was negative. Influenza screen was negative. 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 5 history of duodenal ulcer perforation requiring surgical repair and repair of incarcerated umbilical hernia, with subsequent development of intraperitoneal/abdominal abscess requiring incision and drainage and prolonged antibiotic course 7 rheumatoid arthritis, with secondary chronic joint deformities related to rheumatoid arthritis 8 obstructive sleep apnea not receiving any CPAP therapy at this point in time 9 chronic back pain 10 hyperlipidemia 11 osteoarthritis 12 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 PA pressure was 56 with a preserved LV function and mild LVH Plan Clinically improving and will continue the same treatment Continue bronchodilators Continued IV Solu-Medrol Continue Lasix, IV, 20 mg every 12 hours. Resume all medications We'll continue to follow
[2022-03-05] MEDS ORDERED: AZITHROMYCIN 500 MG TAB PO SCH (16:00)
[2022-03-05] MEDS: methylPREDNISolone SOD SUCCI 40 MG/ML 1 ML VIAL IV SCH (18:29)
[2022-03-05] MEDS: ATORVASTATIN 40 MG TAB PO SCH (20:14)
[2022-03-05] MEDS: AMITRIPTYLINE HCL 10 MG TAB PO SCH (20:14)
[2022-03-06] MEDS: methylPREDNISolone SOD SUCCI 40 MG/ML 1 ML VIAL IV SCH ×2 (00:34→08:18)
[2022-03-06 07:25] VITALS: TEMP 98.1
[2022-03-06] MEDS: THIAMINE 100 MG TAB PO SCH (08:03)
[2022-03-06 08:15] VITALS: BP 114/68
[2022-03-06] MEDS: FUROSEMIDE 10 MG/ML 2 ML VIAL IV SCH (08:18)
[2022-03-06] MEDS: IPRATROPIUM 0.5 MG/2.5 ML NEBU INHALATION SCH ×2 (08:29→11:56)
[2022-03-06] MEDS: SYMBICORT 80-4.5 MCG INHALER INHALATION SCH (08:29)
[2022-03-06] MEDS: MULTIVITAMINS, THERA 1 EACH TAB PO SCH (10:41)
[2022-03-06] MEDS: PANTOPRAZOLE 40 MG TABLET PO SCH (10:41)
[2022-03-06] MEDS: CLOPIDOGREL 75 MG TAB PO SCH (10:41)
[2022-03-06] MEDS: SERTRALINE 50 MG TAB PO SCH (10:44)
[2022-03-06] MEDS: MELOXICAM 7.5 MG TAB PO SCH (10:48)
[2022-03-06] MEDS: METOPROLOL SUCCINATE (ER) 25 MG TAB.ER.24H PO SCH (10:48)
[2022-03-06] MEDS: ASCORBIC ACID 500 MG TAB PO SCH (10:48)
[2022-03-06 11:14] VITALS: RESP 16
--- NOTE | 2022-03-06 11:42 | P.DS ---
Providers Date of admission: 03/03/22 14:36 Expected date of discharge: 03/06/22 Attending physician: Razia Holbrook Consults: 03/04/22 11:42 Consult Physician Routine Consulting Provider: Ashia Mireles Consult Reason/Comments: CHF,Copd exacerbation,possible pna Do you want consulting provider notified?: Already Contacted Primary care physician: [facility]: This is a 72-year-old pleasant gentleman, well-known to my practice, as well as Dr. Mireles. Patient has advanced ceroid dependent COPD, chronic hypoxemic respiratory failure, on 40% to cannula at home, lives with the , who has called me today as the patient is having some worsening shortness of breath, no edema, no hemoptysis, however there is some brown sputum expectoration, and fever. 100.8. Catapres was not done at home, Other significant history includes prior perforated duodenal ulcer, with exploring up to pay off perforated blood blister, incarcerated umbilical hernia, prior FEV1 of 46%, prior echocardiogram December 20 2154-60% with concentric LVH, no AAS, moderate pulmonary hypertension, mild MR and mild TR. Chest x-ray, findings of COPD with superimposed pulmonary vascular congestion, no acute infiltrates, there is flattening of the diaphragm, with increased lucency of lung apices WC 13.1, INR 1.0, sodium 133, creatinine 0.79, glucose 105 no pro- calcitonin level obtained, [employer] proBNP is 4260, and a virus PCR negative influenza A and B is negative admitted for COPD CHF exacerbation, with febrile illness, no urinalysis obtained, we'll check the urine for pyuria, blood cultures, consult. Dr. Mireles pulmonary medicine IV Solu-Medrol, IV Lasix, empiric antibiotics, Rocephin and Zithromax 03/04: Patient has less shortness of breath, no fevers, pyuria noted, some pr oductive purulent sputum, clean, no difficulty breathing, pulse ox at 91-98% on 3-4 L nasal cannula, blood pressure is between 96-100, systolic patient is on Rocephin and Zithromax, to cover both purulent thick bronchitis, and UTI, cultures are sent, pending currently. Sputum requested for cultures and Gram stain patient is on Solu-Medrol, 60 mg every 6 hours, patient is on chronic oral prednisone maintenance at home 2.5 mg daily, pulmonary would follow, Dr. Mireles 03/05, shortness breath is less, he is on 4 L nasal cannula, pulse ox 92%, patient was hypotensive last night, systolic in 80s, required a bolus only 500 mL, worrisome regarding CHF exacerbation, again was diuresed this morning, using low-dose Lasix 20 mg, has been started on midodrine, counseled regarding nutritional supplementation, urine cultures currently pending, Solu-Medrol l will be decreased to 40 mg every 8 hours awaiting finalized sputum cultures and urine cultures prior to discharge on IV Rocephin and Zithromax and a PT /OT ongoing, patient's debilitated prior to his admission 03/06: Patient states that his breathing is just about at baseline and he is normally on 3 L of oxygen at home. He is on 4 L with a pulse ox of 99%. He's been afebrile, heart rate 67, blood pressure 114/68. He has been transitioned to oral prednisone. Patient will be discharged home today in stable condition. DISCHARGE DIAGNOSES 1. Acute on chronic hypoxic respiratory failure secondary to COPD exacerbation with extensive pulmonary fibrosis, associated interstitial lung disease. 2. End-stage COPD, chronic hypoxemic respiratory failure acute on chronic with chronic prednisone use. 3. Osteoporotic thoracic fractures compression and chronic pain, on chronic opiates, 4. History of duodenal ulceration and GI bleed, with surgical repair, and repair of incarcerated umbilical hernia, with subsequent development of intraperitoneal abscess requiring incision and drainage, and prolonged antibiotic course chronically on PPI. 5. Chronic prednisone, with cushingoid features. 6. Moderate pulmonary hypertension. 7. Hypertension. 8. Rheumatoid arthritis, with polyarthritis, and chronic joint abnormalities stable. 9. Hyperlipidemia. 10. Obstructive sleep apnea unable to tolerate CPAP. 11. Chronic back pain and generalized osteoarthritis. 12. History of diastolic CHF, ejection fraction is normal 13. Generalized anxiety disorder and recurrent depression. 14. Insomnia. DISCHARGE PLAN Home Greater than 35 minutes was utilized and coordinating patient's discharge. Impression and plan of care have been directed as dictated by the signing physician. Albania Salinas nurse practitioner acting as scribe for signing physician. Patient Condition at Discharge: Good Plan - Discharge Summary Discharge Rx Participant: Yes New Discharge Prescriptions: New predniSONE 0 mg PO DIRECTED #32 tab Continue Metoprolol Succinate [Toprol XL] 25 mg PO DAILY Sertraline [Zoloft] 150 mg PO DAILY Celecoxib [CeleBREX] 200 mg PO DAILY Clopidogrel [Plavix] 75 mg PO DAILY #14 tab Fluticasone Nasal [place] [Flonase Nasal [place]] 1 spr EA NOSTRIL BID Multivitamins, Thera [Multivitamin (formulary)] 1 tab PO DAILY Alendronate Sodium [Fosamax] 70 mg PO MO Atorvastatin [Lipitor] 40 mg PO HS predniSONE 2.5 mg PO DAILY Amitriptyline HCl [Elavil] 10 mg PO HS Ascorbic Acid [Vitamin C] 1,000 mg PO DAILY Ipratropium-Albuterol Nebulize [Duoneb 0.5 mg-3 mg/3 ml Soln] 3 ml INHALATION RT-QID Thiamine [Vitamin B-1] 100 mg PO BID-W/MEALS tab Calcium Carbonate 1,000 mg PO Q8H PRN PRN Reason: Indigestion Acetaminophen [Tylenol] 650 mg PO Q6H PRN PRN Reason: Pain HYDROcodone/APAP 10-325MG [[place] 10-325] 1 tab PO Q8HR PRN 3 Days #9 tab PRN Reason: Pain Benzonatate [Tessalon Perles] 100 - 200 mg PO Q8H Fluticasone/Umeclidin/Vilanter [Trelegy Ellipta 100-62.5-25] 1 puff INHALATION RT-DAILY Furosemide [Lasix] 40 mg PO DAILY Omeprazole 40 mg PO DAILY Discharge Medication List Metoprolol Succinate [Toprol XL] 25 mg PO DAILY 01/12/20 [History] Sertraline [Zoloft] 150 mg PO DAILY 01/12/20 [History] Amitriptyline HCl [Elavil] 10 mg PO HS 12/06/20 [History] Celecoxib [CeleBREX] 200 mg PO DAILY 12/06/20 [History] Ascorbic Acid [Vitamin C] 1,000 mg PO DAILY 12/10/20 [History] Ipratropium-Albuterol Nebulize [Duoneb 0.5 mg-3 mg/3 ml Soln] 3 ml INHALATION RT-QID 12/10/20 [History] Clopidogrel [Plavix] 75 mg PO DAILY #14 tab 12/13/20 [Rx] Fluticasone Nasal [place] [Flonase Nasal [place]] 1 spr EA NOSTRIL BID 07/10/21 [History] Thiamine [Vitamin B-1] 100 mg PO BID-W/MEALS tab 07/12/21 [Rx] Acetaminophen [Tylenol] 650 mg PO Q6H PRN 07/23/21 [History] Calcium Carbonate 1,000 mg PO Q8H PRN 07/23/21 [History] Multivitamins, Thera [Multivitamin (formulary)] 1 tab PO DAILY 07/23/21 [History] HYDROcodone/APAP 10-325MG [[place] 10-325] 1 tab PO Q8HR PRN 3 Days #9 tab 07/27/21 [Rx] Alendronate Sodium [Fosamax] 70 mg PO MO 03/03/22 [History] Atorvastatin [Lipitor] 40 mg PO HS 03/03/22 [History] Benzonatate [Tessalon Perles] 100 - 200 mg PO Q8H 03/03/22 [History] Fluticasone/Umeclidin/Vilanter [Trelegy Ellipta 100-62.5-25] 1 puff INHALATION RT-DAILY 03/03/22 [History] Furosemide [Lasix] 40 mg PO DAILY 03/03/22 [History] Omeprazole 40 mg PO DAILY 03/03/22 [History] predniSONE 2.5 mg PO DAILY 03/03/22 [History] predniSONE 0 mg PO DIRECTED #32 tab 03/06/22 [Rx] Follow up Appointment(s)/Referral(s): Razia Holbrook MD [Primary Care Provider] - 1 Week Ashia Mireles MD [STAFF PHYSICIAN] - 1 Week Patient Instructions/Handouts: COPD (Chronic Obstructive Pulmonary Disease) (DC), Chronic Lung Disease and Infection Prevention (DC) Discharge Disposition: HOME SELF-CARE
[2022-03-06 12:00] VITALS: PULSE 72
--- NOTE | 2022-03-06 12:53 | P.PN ---
Subjective Progress Note Date: 03/06/22 Principal diagnosis: Shortness of breath 70-year-old male patient was presented to the hospital or symptoms of worsening shortness of breath, over the past several days. The patient has compromised lung including pulmonary fibrosis and the patient has been oxygen dependent. Th e patient also has a component of COPD. The patient apparently had a temperature of 100.0. Pulse ox is 86% on 3 L of oxygen by nasal cannula. No nausea. No vomiting. The patient no chest pain. He decided to come in to the emergency and the patient was found to have a white cell count of 15 with a normal coagulation profile, normal electrolytes, UA was abnormal with positive white cells and the proBNP level of 4260. COVID 19 testing was negative. Influenza screen was negative. The patient is currently on a combination of Rocephin and Zithromax. The patient is also on IV Solu-Medrol. The patient is being diuresis with Lasix 20 mg IV every 12 hours. Symptoms started approximately a week ago and worse over the past few days. According to the patient, he has history of COPD and pulmonary fibrosis. Based on the previous pulmonary function test, the patient's FEV1 has been order of 46% of predicted and FVC has been order of 72% of predicted and this is based on a spirometer t his was done 2016. The patient has been steroid dependent for many years. He has history of rheumatoid arthritis and has been on immunosuppressive therapy in the past in the form of Humira injections. He has not taken Humira for now. The patient has chronic hypoxic respiratory failure and typically is on 3-1/2 L of oxygen by nasal cannula. He has been hospitalized in the past for septic shock and he has a previous history of duodenal ulcer perforation was repaired surgically. He has obstructive sleep apnea and his nontolerant to CPAP therapy. 03/05/2022, the patient is feeling slightly better. The patient is being there is IV Lasix. The fluid balance has been negative and the patient remains on Lasix 20 mg IV every 12 hours. The patient is also on IV Solu Medrol. The patient on DuoNeb neb treatments around the clock. No fever. No chills. No altered mentation. The white cell count 11.3 from yesterday and the Pronestyl level is at 0.27. On 03/06/2022 patient seen in follow-up on medical surgical floor, he is awake and oriented 3, basic up in the chair, states his breathing is improving. On 4 L of oxygen his pulse ox is 96-99%, his been afebrile, vital signs have been stable. He had no acute events overnight. His chest x-ray showed COPD with superimposed pulmonary vascular congestion, proBNP was elevated at 4260, pro- calcitonin level was 0.27, he is a urinalysis showed possibility of a urinary tract infection, he tested negative for COVID-19 influenza A and B. He is being treated with a combination of antibiotics, steroids, and IV diuretics. He responded favorably to inpatient treatments, and he is requesting to go home today. Objective - Vital Signs Vital signs: Vital Signs Temp 98.1 F 03/06/22 07: Pulse 72 03/06/22 12:05 Resp 16 03/06/22 11:07 BP 114/68 03/06/22 08:12 Pulse Ox 99 03/06/22 07:22 FiO2 Intake & Output 03/05/22 03/06/22 03/06/22 18:59 06:59 18:59 Intake Total 360 296 Output Total 900 100 Balance 360 -900 196 Intake: Oral 360 296 Output: Urine 900 100 Other: Voiding Method Toilet Urinal # Voids 3 2 - Exam GENERAL EXAM: Alert, very pleasant, 71-year-old white male, 4 L of oxygen pulse ox of 96-99%, comfortable in no apparent distress. HEAD: Normocephalic/atraumatic. EYES: Normal reaction of pupils, equal size. Conjunctiva pink, sclera white. NOSE: Clear with pink turbinates. THROAT: No erythema or exudates. NECK: No masses, no JVD, no thyroid enlargement, no adenopathy. CHEST: No chest wall deformity. Symmetrical expansion. LUNGS: Diminished air entry with no crackles, wheeze, rhonchi or dullness. CVS: Regular rate and rhythm, normal S1 and S2, no gallops, no murmurs, no rubs ABDOMEN: Soft, nontender. No hepatosplenomegaly, normal bowel sounds, no guarding or rigidity. EXTREMITIES: No clubbing, no edema, no cyanosis, 2+ pulses and upper and lower extremities. MUSCULOSKELETAL: Muscle strength and tone normal. SPINE: No scoliosis or deformity SKIN: No rashes CENTRAL NERVOUS SYSTEM: Alert and oriented -3. No focal deficits, tone is normal in all 4 extremities. PSYCHIATRIC: Alert and oriented -3. Appropriate affect. Intact judgment and insight. - Labs CBC & Chem 7: 03/04/22 06:57 03/03/22 11:18 Labs: Microbiology - Last 24 Hours (Table) 03/03/22 11:20 Blood Culture - Preliminary Blood No Growth after 48 hours 03/03/22 11:05 Blood Culture - Preliminary Blood No Growth after 48 hours 03/03/22 20:46 Urine Culture - Final Urine,Voided Assessment and Plan Plan: 1 acute exacerbation of chronic COPD/pulmonary fibrosis, with a possible component of CHF as the patient's proBNP level is elevated. No major changes in the chest x-ray findings. Covid 19 testing was negative. Influenza screen was negative. 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 5 history of duodenal ulcer perforation requiring surgical repair and repair of incarcerated umbilical hernia, with subsequent development of intraperitoneal/abdominal abscess requiring incision and drainage and prolonged antibiotic course 7 rheumatoid arthritis, with secondary chronic joint deformities related to rheumatoid arthritis 8 obstructive sleep apnea not receiving any CPAP therapy at this point in time 9 chronic back pain 10 hyperlipidemia 11 osteoarthritis 12 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 PA pressure was 56 with a preserved LV function and mild LVH Plan: Patient is improving, breathing easier Patient has been diuresed, remains on antibiotics, IV steroids and breathing treatments Vital signs have been stable, From pulmonary perspective patient is stable for discharge home today He can complete outpatient prednisone taper, he can resume his home Trelegy inhaler, DuoNeb, oral Lasix, Outpatient follow-up with Dr. Mireles in the office in one week I have personally seen and examined the patient, performed the documentation and the assessment and plan as written. Number of minutes spent on the visit: [10] Time with Patient: Less than 30
== END 2022-03-06 12:13 | disposition home or self-care (01) | DRG 190 ==
LOC: EC 10:32 → 4SSUR 14:36
PROVIDERS: ADMIT Family Medicine; ATTEND Family Medicine
DX: J44.1 Chronic obstructive pulmonary disease with (acute) exacerbation (principal); J96.21 Acute and chronic respiratory failure with hypoxia; F33.9 Major depressive disorder, recurrent, unspecified; I50.30 Unspecified diastolic (congestive) heart failure; M80.08XA Age-related osteoporosis with current pathological fracture, vertebra(e), initial encounter for fracture; N39.0 Urinary tract infection, site not specified; M06.9 Rheumatoid arthritis, unspecified; M15.9 Polyosteoarthritis, unspecified; E78.5 Hyperlipidemia, unspecified; F41.1 Generalized anxiety disorder; G47.00 Insomnia, unspecified; G47.33 Obstructive sleep apnea (adult) (pediatric); G89.29 Other chronic pain; I11.0 Hypertensive heart disease with heart failure; I27.20 Pulmonary hypertension, unspecified; J84.10 Pulmonary fibrosis, unspecified; M48.00 Spinal stenosis, site unspecified; Z20.822 Contact with and (suspected) exposure to COVID-19; I08.1 Rheumatic disorders of both mitral and tricuspid valves; Z99.81 Dependence on supplemental oxygen; Z79.02 Long term (current) use of antithrombotics/antiplatelets; Z79.1 Long term (current) use of non-steroidal anti-inflammatories (NSAID); Z79.52 Long term (current) use of systemic steroids; Z79.83 Long term (current) use of bisphosphonates; Z79.891 Long term (current) use of opiate analgesic; Z79.899 Other long term (current) drug therapy; Z80.0 Family history of malignant neoplasm of digestive organs; Z80.6 Family history of leukemia; Z82.3 Family history of stroke; Z82.5 Family history of asthma and other chronic lower respiratory diseases; Z83.3 Family history of diabetes mellitus; Z87.11 Personal history of peptic ulcer disease; Z87.891 Personal history of nicotine dependence; Z57.4 Occupational exposure to toxic agents in agriculture; Z71.3 Dietary counseling and surveillance; Z88.0 Allergy status to penicillin
CPT/HCPCS: 36415; 71046; 80053; 81001; 83605; 83735; 83880; 84145; 84484; 85025; 85610; 85730; 87040; 87086; 87502; 87635; 94640; 96365; 96366; 96367; 96374; 96375; 99291

== ENCOUNTER 2022-06-27 16:34 | Inpatient (IN) | payer MEDICARE, OTHER ==
--- NOTE | 2022-06-27 17:05 | XR ---
EXAMINATION TYPE: XR chest 2V DATE OF EXAM: 06/27/2022 COMPARISON: 03/03/2022 HISTORY: Short of breath TECHNIQUE: 2 views FINDINGS: There is irregular masslike consolidation in the anterior left upper lobe that measures 6 x 8 cm. There is extensive interstitial coarse densities throughout the lungs. There is thoracic mild kyphosis with anterior wedging of mid thoracic vertebra up to 80%. No definite pleural effusion. Hear t size is normal. IMPRESSION: Advanced pulmonary interstitial fibrosis. There is a new masslike consolidation left uppe r lobe compared to old exams that is likely pneumonia. Follow-up is recommended to show clearing.
[2022-06-27 17:14] LABS: Basophils # (A) 0.1 k/uL (0-0.2); Basophils % (A) 1 %; Eosinophils # (A) 0.2 k/uL (0-0.7); Eosinophils % (A) 1 %; HCT 40.3 % (39.0-53.0); HGB 13.2 gm/dL (13.0-17.5); Hypochromasia Slight; Lymphocytes # (A) 1.5 k/uL (1.0-4.8); Lymphocytes % (A) 12 %; MCH 30.1 pg (25.0-35.0); MCHC 32.9 g/dL (31.0-37.0); MCV 91.6 fL (80.0-100.0); Mean Platelet Volume 7.4; Monocytes # (A) 0.6 k/uL (0-1.0); Monocytes % (A) 5 %; Neutrophils # (A) 9.9 k/uL (1.3-7.7); Neutrophils % (A) 80 %; Platelet Count 471 k/uL (150-450); RBC 4.39 m/uL (4.30-5.90); RDW 15.2 % (11.5-15.5); WBC 12.5 k/uL (3.8-10.6)
[2022-06-27 17:23] LABS: ALT 18 U/L (4-49); AST 20 U/L (17-59); African American GFR (CKD) >90 (>60 ml/min/1.73 sqM); Albumin 3.1 g/dL (3.5-5.0); Alkaline Phosphatase 101 U/L (38-126); Anion Gap 9 mmol/L; Blood Urea Nitrogen 19 mg/dL (9-20); Calcium 8.3 mg/dL (8.4-10.2); Carbon Dioxide 34 mmol/L (22-30); Chloride 92 mmol/L (98-107); Glucose 135 mg/dL (74-99); Non-African American GFR(CKD) >90 (>60 ml/min/1.73 sqM); Potassium 4.4 mmol/L (3.5-5.1); Sodium 135 mmol/L (137-145); Total Bilirubin 0.5 mg/dL (0.2-1.3); Total Protein 6.7 g/dL (6.3-8.2)
[2022-06-27 17:30] LABS: Partial Thromboplastin Time 23.7 sec (22.0-30.0); Prothrombin Time 10.7 sec (9.0-12.0)
--- NOTE | 2022-06-27 17:43 | CT ---
EXAMINATION TYPE: CT brain cspine wo con DATE OF EXAM: 06/27/2022 COMPARISON: 07/10/2021 HISTORY: fall, ams CT DLP: 1412 mGycm Automated exposure control for dose reduction was used. Images of the brain and cervical spine obtained with no contrast. There is cerebral cortical atrophy. There is enlargement of the ventricles. There is no mass effect o r midline shift. No sign of intracranial hemorrhage. Calvarium is intact. There is normal aeration of the mastoid sinuses. The cervical vertebra show fairly normal alignment. There is no significant disc space narrowing. Pos terior elements are intact. There is minimal hypertrophic facet arthropathy. No compression fracture. There is some pleural thickening and infiltrate at the posterior lung apices. IMPRESSION: Cerebral atrophy. No acute intracranial abnormality. Minor degenerative changes in the cervical spine. No fracture. No significant change compared to old exam.
--- NOTE | 2022-06-27 19:06 | CT ---
EXAMINATION TYPE: CT chest angio for PE DATE OF EXAM: 06/27/2022 COMPARISON: 07/23/2021 HISTORY: SOB, elevated d-dimer CT DLP: 263.8 mGycm CONTRAST: CT chest with contrast and 3D reconstruction with MIP imaging is performed with IV Contrast, patient injected with 100 mL of Isovue 370. Contrast-enhanced CT of the chest was performed through the course of the pulmonary arteries with mirella g and mediastinal window settings submitted. 3D reconstruction with MIP imaging was also performed. PULMONARY ARTERIES: The pulmonary arteries and their major tributaries are patent. I do not see edvin dence for sizable filling defect to suggest pulmonary embolic process. LUNGS: Severe emphysematous changes underlying fibrosis. Airspace consolidation left upper lobe. Darlin elate for pneumonia or aspiration pneumonia. Bronchial wall thickening. Interstitial basilar prominen ce. MEDIASTINUM: Thoracic aorta is of normal caliber,however, evaluation is limited given timing of the contrast bolus. If there is concern for thoracic aortic pathology consider ERIKA. Correlate clinicall y . The heart is not enlarged. No evidence for mediastinal mass. No mediastinal lymph nodes greater than 1cm. HILAR STRUCTURES: No evidence for mass. No hilar lymph nodes greater than 1 cm. UPPER ABDOMEN: No significant abnormality is seen. IMPRESSION: 1. No evidence for Pulmonary embolism at this time. 2 correlate for underlying pneumonia. Underlying fibrotic change noted.
--- NOTE | 2022-06-27 19:11 | ED ---
SOB HPI - General Chief Complaint: Shortness of Breath Stated Complaint: SOB Time Seen by Provider: 06/27/22 16:41 Source: patient, EMS, RN notes reviewed Mode of arrival: EMS - History of Present Illness Initial Comments: This is a 71-year-old male who presents to the emergency department for shortness of breath and weakness. His states that over the last 3 days, he has not been eating and has been very lethargic. He is also struggling more to breathe and has a cough. He has severe COPD and is on 6 L of oxygen at home. His states that earlier today, his oxygen had dropped into the high 80s. Additionally, yesterday he had a fall from standing and hit the front of his head. He did not have any loss of consciousness. Patient is on blood thinners. He does have a history of multiple admissions for pneumonia and COPD exacerbations. Denies any fevers, chills, sore throat, chest pain, palpitations, abdominal pain, nausea, vomiting, diarrhea, back pain, or headaches. MD Complaint: shortness of breath, cough Onset/Timin -: days(s) Known History Of: COPD - Related Data Home Oxygen Therapy: Yes Home Oxygen Amount: other (6 Liters) Home Medications Medication Instructions Recorded Confirmed Metoprolol Succinate [Toprol XL] 25 mg PO DAILY 01/12/20 03/03/22 Sertraline [Zoloft] 150 mg PO DAILY 01/12/20 03/03/22 Amitriptyline HCl [Elavil] 10 mg PO HS 12/06/20 03/03/22 Celecoxib [CeleBREX] 200 mg PO DAILY 12/06/20 03/03/22 Ascorbic Acid [Vitamin C] 1,000 mg PO DAILY 12/10/20 03/03/22 Ipratropium-Albuterol Nebulize 3 ml INHALATION RT-QID 12/10/20 03/03/22 [Duoneb 0.5 mg-3 mg/3 ml Soln] Fluticasone Nasal [place] [Flonase 1 spr EA NOSTRIL BID 07/10/21 03/03/22 Nasal [place]] Acetaminophen [Tylenol] 650 mg PO Q6H PRN 07/23/21 03/03/22 Calcium Carbonate 1,000 mg PO Q8H PRN 07/23/21 03/03/22 Multivitamins, Thera [Multivitamin 1 tab PO DAILY 07/23/21 03/03/22 (formulary)] Alendronate Sodium [Fosamax] 70 mg PO MO 03/03/22 03/03/22 Atorvastatin [Lipitor] 40 mg PO HS 03/03/22 03/03/22 Benzonatate [Tessalon Perles] 100 - 200 mg PO Q8H 03/03/22 03/03/22 Fluticasone/Umeclidin/Vilanter 1 puff INHALATION RT-DAILY 03/03/22 03/03/22 [Trelegy Ellipta 100-62.5-25] Furosemide [Lasix] 40 mg PO DAILY 03/03/22 03/03/22 Omeprazole 40 mg PO DAILY 03/03/22 03/03/22 predniSONE 2.5 mg PO DAILY 03/03/22 03/03/22 Previous Rx's Medication Instructions Recorded Clopidogrel [Plavix] 75 mg PO DAILY #14 tab 12/13/20 Thiamine [Vitamin B-1] 100 mg PO BID-W/MEALS tab 07/12/21 HYDROcodone/APAP 10-325MG [[place] 1 tab PO Q8HR PRN 3 Days #9 tab 07/27/21 10-325] predniSONE 0 mg PO DIRECTED #32 tab 03/06/22 Allergies Allergy/AdvReac Type Severity Reaction Status Date / Time amoxicillin AdvReac Nausea & Verified 03/03/22 16:09 Vomiting Review of Systems ROS Statement: Those systems with pertinent positive or pertinent negative responses have been documented in the HPI. ROS Other: All systems not noted in ROS Statement are negative. Past Medical History Past Medical History: Heart Failure, COPD, Hyperlipidemia, Osteoarthritis (OA), Pneumonia, Rheumatoid Arthritis (RA), Sleep Apnea/CPAP/BIPAP Additional Past Medical History / Comment(s): COPD, chronic hypoxic respiratory failure previous history of pneumoperitoneum related to a perforated duodenal ulcer, repair of an umbilical hernia, chronic back pain, back stenosis, History of Any Multi-Drug Resistant Organisms: None Reported Past Surgical History: Orthopedic Surgery Additional Past Surgical History / Comment(s): colonoscopy, repair of a perforated duodenal ulcer and repair of an incarcerated umbilical hernia Past Anesthesia/Blood Transfusion Reactions: No Reported Reaction Past Psychological History: Anxiety, Depression Smoking Status: Former smoker Past Alcohol Use History: Daily Past Drug Use History: None Reported - Past Family History Father Family Medical History: Cancer Additional Family Medical History / Comment(s): Father of leukemia. Mother Family Medical History: Cancer, CVA/TIA, Dementia, Diabetes Mellitus Additional Family Medical History / Comment(s): Mother is 88yrs old with history of dementia and colon cancer. Sister(s) Additional Family Medical History / Comment(s): Patient 3 sons with no major medical problems. General Exam General appearance: alert, in no apparent distress Head exam: Present: atraumatic, normocephalic, normal inspection Neck exam: Present: normal inspection. Absent: tenderness, meningismus, lymphadenopathy Respiratory exam: Present: decreased breath sounds, prolonged expiratory Cardiovascular Exam: Present: regular rate, normal rhythm, normal heart sounds. Absent: systolic murmur, diastolic murmur, rubs, gallop, clicks Neurological exam: Present: alert, oriented X3, CN II-XII intact Psychiatric exam: Present: normal affect, normal mood Skin exam: Present: warm, dry, intact, normal color. Absent: rash Course Vital Signs 06/27/22 06/27/22 06/27/22 16:35 17:39 18:48 Temperature 97.5 F L Pulse Rate 98 89 Respiratory 18 22 18 Rate Blood Pressure 111/73 95/61 O2 Sat by Pulse 95 95 Oximetry Medical Decision Making - Medical Decision Making This is a 71-year-old male who presents to the emergency department for coughing and shortness of breath. Lab work reveals leukocytosis. Chest x-ray reveals a new masslike consolidation in the left upper lobe suggestive of a pneumonia. He did have a high d-dimer and a CTA of the chest was subsequently obtained. The CTA did not identify any signs of a pulmonary embolus. BNP is mildly elevated, however not nearly as high as it has been in the past. Troponin is also slightly bumped at 0.033. Given the patient's chronic emphysema history and worsening shortness of breath, will admit patient for pneumonia for management with IV antibiotics. He was started on the pneumonia protocol with Rocephin and Azithromycin. I did add Flagyl onto this regimen as well due to the radiologist mentioning a possible aspiration pneumonia. Will also continue to trend the troponins. This case was discussed in detail with the attending ED physician. Presentation, findings, and treatment plan discussed in detail as well. - Lab Data Result diagrams: 06/27/22 16:44 06/27/22 16:44 Lab Results 06/27/22 06/27/22 06/27/22 Range/Units 16:44 16:44 16:44 WBC 12.5 H (3.8-10.6) k/uL RBC 4.39 (4.30-5.90) m/uL Hgb 13.2 (13.0-17.5) gm/dL Hct 40.3 (39.0-53.0) % MCV 91.6 (80.0-100.0) fL MCH 30.1 (25.0-35.0) pg MCHC 32.9 (31.0-37.0) g/dL RDW 15.2 (11.5-15.5) % Plt Count 471 H (150-450) k/uL MPV 7.4 Neutrophils % 80 % Lymphocytes % 12 % Monocytes % 5 % Eosinophils % 1 % Basophils % 1 % Neutrophils # 9.9 H (1.3-7.7) k/uL Lymphocytes # 1.5 (1.0-4.8) k/uL Monocytes # 0.6 (0-1.0) k/uL Eosinophils # 0.2 (0-0.7) k/uL Basophils # 0.1 (0-0.2) k/uL Hypochromasia Slight PT 10.7 (9.0-12.0) sec INR 1.0 (<1.2) APTT 23.7 (22.0-30.0) sec D-Dimer 2.05 H (<0.60) mg/L FEU Sodium 135 L (137-145) mmol/L Potassium 4.4 (3.5-5.1) mmol/L Chloride 92 L (98-107) mmol/L Carbon Dioxide 34 H (22-30) mmol/L Anion Gap 9 mmol/L BUN 19 (9-20) mg/dL Creatinine 0.61 L (0.66-1.25) mg/dL Est GFR (CKD-EPI)AfAm >90 (>60 ml/min/1.73 sqM) Est GFR (CKD-EPI)NonAf >90 (>60 ml/min/1.73 sqM) Glucose 135 H (74-99) mg/dL Plasma Lactic Acid Steven (0.7-2.0) mmol/L Calcium 8.3 L (8.4-10.2) mg/dL Total Bilirubin 0.5 (0.2-1.3) mg/dL AST 20 (17-59) U/L ALT 18 (4-49) U/L Alkaline Phosphatase 101 (38-126) U/L Troponin I (0.000-0.034) ng/mL NT-Pro-B Natriuret Pep pg/mL Total Protein 6.7 (6.3-8.2) g/dL Albumin 3.1 L (3.5-5.0) g/dL Coronavirus (PCR) (Not Detectd) Influenza Type A RNA (Not Detectd) Influenza Type B (PCR) (Not Detectd) 06/27/22 06/27/22 06/27/22 Range/Units 16:44 16:44 16:44 WBC (3.8-10.6) k/uL RBC (4.30-5.90) m/uL Hgb (13.0-17.5) gm/dL Hct (39.0-53.0) % MCV (80.0-100.0) fL MCH (25.0-35.0) pg MCHC (31.0-37.0) g/dL RDW (11.5-15.5) % Plt Count (150-450) k/uL MPV Neutrophils % % Lymphocytes % % Monocytes % % Eosinophils % % Basophils % % Neutrophils # (1.3-7.7) k/uL Lymphocytes # (1.0-4.8) k/uL Monocytes # (0-1.0) k/uL Eosinophils # (0-0.7) k/uL Basophils # (0-0.2) k/uL Hypochromasia PT (9.0-12.0) sec INR (<1.2) APTT (22.0-30.0) sec D-Dimer (<0.60) mg/L FEU Sodium (137-145) mmol/L Potassium (3.5-5.1) mmol/L Chloride (98-107) mmol/L Carbon Dioxide (22-30) mmol/L Anion Gap mmol/L BUN (9-20) mg/dL Creatinine (0.66-1.25) mg/dL Est GFR (CKD-EPI)AfAm (>60 ml/min/1.73 sqM) Est GFR (CKD-EPI)NonAf (>60 ml/min/1.73 sqM) Glucose (74-99) mg/dL Plasma Lactic Acid Steven 0.8 (0.7-2.0) mmol/L Calcium (8.4-10.2) mg/dL Total Bilirubin (0.2-1.3) mg/dL AST (17-59) U/L ALT (4-49) U/L Alkaline Phosphatase (38-126) U/L Troponin I 0.033 (0.000-0.034) ng/mL NT-Pro-B Natriuret Pep 1050 pg/mL Total Protein (6.3-8.2) g/dL Albumin (3.5-5.0) g/dL Coronavirus (PCR) (Not Detectd) Influenza Type A RNA (Not Detectd) Influenza Type B (PCR) (Not Detectd) 06/27/22 06/27/22 Range/Units 16:50 16:50 WBC (3.8-10.6) k/uL RBC (4.30-5.90) m/uL Hgb (13.0-17.5) gm/dL Hct (39.0-53.0) % MCV (80.0-100.0) fL MCH (25.0-35.0) pg MCHC (31.0-37.0) g/dL RDW (11.5-15.5) % Plt Count (150-450) k/uL MPV Neutrophils % % Lymphocytes % % Monocytes % % Eosinophils % % Basophils % % Neutrophils # (1.3-7.7) k/uL Lymphocytes # (1.0-4.8) k/uL Monocytes # (0-1.0) k/uL Eosinophils # (0-0.7) k/uL Basophils # (0-0.2) k/uL Hypochromasia PT (9.0-12.0) sec INR (<1.2) APTT (22.0-30.0) sec D-Dimer (<0.60) mg/L FEU Sodium (137-145) mmol/L Potassium (3.5-5.1) mmol/L Chloride (98-107) mmol/L Carbon Dioxide (22-30) mmol/L Anion Gap mmol/L BUN (9-20) mg/dL Creatinine (0.66-1.25) mg/dL Est GFR (CKD-EPI)AfAm (>60 ml/min/1.73 sqM) Est GFR (CKD-EPI)NonAf (>60 ml/min/1.73 sqM) Glucose (74-99) mg/dL Plasma Lactic Acid Steven (0.7-2.0) mmol/L Calcium (8.4-10.2) mg/dL Total Bilirubin (0.2-1.3) mg/dL AST (17-59) U/L ALT (4-49) U/L Alkaline Phosphatase (38-126) U/L Troponin I (0.000-0.034) ng/mL NT-Pro-B Natriuret Pep pg/mL Total Protein (6.3-8.2) g/dL Albumin (3.5-5.0) g/dL Coronavirus (PCR) Not Detected (Not Detectd) Influenza Type A RNA Not Detected (Not Detectd) Influenza Type B (PCR) Not Detected (Not Detectd) - EKG Data EKG Comments: Sinus rhythm with occasional PVCs. Ventricular rate 99 bpm, NJ interval 124 ms, QRS duration 87 ms, QTC 420 ms. - Radiology Data Radiology results: report reviewed, image reviewed Disposition Clinical Impression: Pneumonia, COPD exacerbation Disposition: ADMITTED IP TO THIS HOSP Referrals: Razia Holbrook MD [Primary Care Provider] - 1-2 days
[2022-06-27] MEDS ORDERED: PNEUMONIA PROTOCOL UTILIZED 1 EACH MISC PO PRN ×2 (19:19→20:07)
[2022-06-27] MEDS: AZITHROMYCIN 500 MG in SODIUM CHLORIDE 0.9% 250 ML IVPB SCH (20:02)
[2022-06-27] MEDS ORDERED: methylPREDNISolone SOD SUCCI 125 MG/2 ML VIAL IV STA (20:20)
[2022-06-27] MEDS: metroNIDAZOLE-NS PMX 500 MG in SALINE 1 100ML.BAG IVPB SCH (20:59)
[2022-06-28] MEDS: metroNIDAZOLE-NS PMX 500 MG in SALINE 1 100ML.BAG IVPB SCH (06:00)
[2022-06-28] MEDS ORDERED: IPRATROPIUM-ALBUTEROL 3 ML NEB INHALATION PRN (07:51)
[2022-06-28] MEDS: BUDESONIDE 1 MG/2 ML NEBU INHALATION SCH ×2 (08:13→19:28)
[2022-06-28] MEDS: FORMOTEROL FUMARATE 20 MCG/2 ML NEBU INHALATION SCH ×2 (08:13→19:28)
[2022-06-28] MEDS: IPRATROPIUM-ALBUTEROL 3 ML NEB INHALATION SCH ×4 (08:13→19:28)
--- NOTE | 2022-06-28 08:59 | P.CNPUL ---
History of Present Illness Consult date: 06/28/22 Requesting physician: Tonya Montiel Reason for consult: dyspnea, cough, COPD, hypoxemia, pneumonia, abnormal CXR/CT Chief complaint: Shortness of breath and cough. History of present illness: Pulmonary consult dated 06/28/2022. 71-year-old male well-known to me, who has a history of COPD. He does use oxygen at home. Apparently for the last 2 or 3 days, he has been more lethargic, not eating, or drinking. He also has been complaining of shortness of breath, and cough. The patient was eventually seen in the emergency room, brought in by EMS, on June 27, and admitted with a diagnosis of COPD exacerbation, and left-sided pneumonia. He apparently had a fall prior to being admitted, and he hit the front of his head. His saturations apparently were also quite low, in the mid 80s. Currently, he is on 4 L nasal cannula. He is getting saline at 20 mL an hour. Chest x-ray and CAT scan are reviewed and show an infiltrate/pneumonia in the left lung. White count 12.5, hemoglobin 13.2, hematocrit 3, and platelet count 471,000. D-dimer is 2.05. Coagulation studies are normal. Sodium 135, potassium 4.4, chlorides 92, CO2 34, BUN 19, and creatinine 0.61. Anion gap is normal. Albumin 3.1. Troponins were 0.033, 0.032, and 0.028. Testing for coronavirus was negative. Review of Systems REVIEW OF SYSTEMS: CONSTITUTIONAL: Weakness. NEUROLOGIC: [ Negative.] HEENT: [ Negative.] CARDIAC: [Negative.] PULMONARY: Shortness of breath and cough. GI: [Negative.] : [Negative.] RHEUMATOLOGIC: [ Negative.] IMMUNOLOGIC: [ Negative.] ENDOCRINE: [Negative. ] DERMATOLOGIC: [Negative.] Past Medical History Past Medical History: Heart Failure, COPD, Hyperlipidemia, Osteoarthritis (OA), Pneumonia, Rheumatoid Arthritis (RA), Sleep Apnea/CPAP/BIPAP Additional Past Medical History / Comment(s): COPD, chronic hypoxic respiratory failure previous history of pneumoperitoneum related to a perforated duodenal ulcer, repair of an umbilical hernia, chronic back pain, back stenosis, History of Any Multi-Drug Resistant Organisms: None Reported Past Surgical History: Orthopedic Surgery Additional Past Surgical History / Comment(s): colonoscopy, repair of a perforated duodenal ulcer and repair of an incarcerated umbilical hernia, left knee arthroscopy Past Anesthesia/Blood Transfusion Reactions: No Reported Reaction Past Psychological History: Anxiety, Depression Additional Psychological History / Comment(s): Pt resides with his spouse of 38 yrs. He has home oxygen which he wears at 6L/NC. He has a nebulizer. Smoking Status: Former smoker Past Alcohol Use History: Daily Additional Past Alcohol Use History / Comment(s): Patient smoked 2 packs per day for 40+ years. He quit 6 years ago. He denies any illicit drug use or marijuana use. He drinks 2 beers per day but none since previous admission and December. 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 Mother Family Medical History: Cancer, CVA/TIA, Dementia, Diabetes Mellitus Additional Family Medical History / Comment(s): Mother is 88yrs old with history of dementia and colon cancer. Sister(s) Additional Family Medical History / Comment(s): Patient 3 sons with no major medical problems. Medications and Allergies Home Medications Medication Instructions Recorded Confirmed Type Metoprolol Succinate [Toprol XL] 25 mg PO DAILY 01/12/20 06/27/22 History Sertraline [Zoloft] 150 mg PO DAILY 01/12/20 06/27/22 History Amitriptyline HCl [Elavil] 10 mg PO HS 12/06/20 06/27/22 History Celecoxib [CeleBREX] 200 mg PO DAILY 12/06/20 06/27/22 History Clopidogrel [Plavix] 75 mg PO DAILY #14 tab 12/13/20 06/27/22 Rx Fluticasone Nasal [place] [Flonase 1 spr EA NOSTRIL BID 07/10/21 06/27/22 History Nasal [place]] Alendronate Sodium [Fosamax] 70 mg PO MO 03/03/22 06/27/22 History Atorvastatin [Lipitor] 40 mg PO HS 03/03/22 06/27/22 History Fluticasone/Umeclidin/Vilanter 1 puff INHALATION RT-DAILY 03/03/22 06/27/22 History [Trelegy Ellipta 100-62.5-25] Omeprazole 40 mg PO DAILY 03/03/22 06/27/22 History predniSONE 2.5 mg PO DAILY 03/03/22 06/27/22 History Budesonide [Pulmicort] 0.5 mg INHALATION RT-BID 06/27/22 06/27/22 History Leflunomide [Arava] 20 mg PO DAILY 06/27/22 06/27/22 History Allergies Allergy/AdvReac Type Severity Reaction Status Date / Time amoxicillin AdvReac Nausea & Verified 06/27/22 22:00 Vomiting Physical Exam Osteopathic Statement: *. No significant issues noted on an osteopathic structural exam other than those noted in the History and Physical/Consult. Vitals: Vital Signs Temp Pulse Pulse Resp BP BP Pulse Ox 06/28/22 08:00 97.3 F L 83 21 94/55 89 L 06/28/22 00:30 98.4 F 81 17 93/44 92 L 06/28/22 00:00 71 15 108/72 98 06/27/22 18:48 89 18 95/61 95 06/27/22 17:39 22 06/27/22 16:35 97.5 F L 98 18 111/73 95 Intake and Output 06/27/22 06/28/22 06/28/22 22:59 06:59 14:59 Other: # Voids 1 Weight 58.967 kg 58.967 kg No acute distress, oriented 3. Laying in bed. On 4 L of oxygen. No conversational dyspnea or use of accessory muscles. HEENT examination is grossly unremarkable. Neck supple. Full range of motion. No adenopathy thyromegaly or neck vein distention. Cardiovascular examination reveals regular rhythm rate. S1-S2 normal. No S3 or S4. No discernible murmur noted. Heart rate 83 bpm. Lungs reveal scattered rhonchi throughout. Breath sounds are equal bilaterally but diminished throughout. No crackles or wheezes. Abdomen soft bowel sounds are heard. No masses or tenderness. Extremities are intact. No cyanosis clubbing or edema. Skin is without rash or lesion. Neurologic examination is brief but nonfocal. Results - Laboratory Findings CBC and BMP: 06/27/22 16:44 06/27/22 16:44 PT/INR, D-dimer PT 10.7 sec (9.0-12.0) 06/27/22 16:44 INR 1.0 (<1.2) 06/27/22 16:44 D-Dimer 2.05 mg/L FEU (<0.60) H 06/27/22 16:44 Abnormal lab findings: Abnormal Labs 06/27/22 06/27/22 06/27/22 16:44 16:44 16:44 WBC 12.5 H Plt Count 471 H Neutrophils # 9.9 H D-Dimer 2.05 H Sodium 135 L Chloride 92 L Carbon Dioxide 34 H Creatinine 0.61 L Glucose 135 H Calcium 8.3 L Albumin 3.1 L - Diagnostic Findings Chest x-ray: image reviewed CT scan - chest: image reviewed Assessment and Plan Assessment: Acute hypoxemic respiratory failure, secondary to COPD exacerbation, and complicated by left-sided pneumonia. History of severe oxygen-dependent COPD. History of CHF. History of hyperlipidemia. History of osteoarthritis. History of rheumatoid arthritis. History of sleep apnea syndrome, maintained on CPAP. History of perforated duodenal ulcer. History of anxiety/depression. Previous history of heavy tobacco use. Plan: Plan dated 06/28/2022. Patient is continued on azithromycin and Rocephin. We had albuterol sulfate and ipratropium bromide updraft treatments. In addition, we had Pulmicort, and formoterol, usual doses, and Solu-Medrol, 60 mg every 6 hours. Additional recommendations and suggestions are forthcoming. We will continue to follow the patient and make recommendations along the way. Prognosis is certainly guarded. Labs, x-rays, and medications are reviewed. Time with Patient: Greater than 30
[2022-06-28] MEDS: methylPREDNISolone SOD SUCCI 125 MG/2 ML VIAL IV SCH ×2 (11:43→18:57)
[2022-06-28] MEDS: METOPROLOL SUCCINATE (ER) 25 MG TAB.ER.24H PO SCH (11:43)
[2022-06-28] MEDS: PANTOPRAZOLE 40 MG TABLET PO SCH (11:43)
[2022-06-28] MEDS: AZITHROMYCIN 500 MG in SODIUM CHLORIDE 0.9% 250 ML IVPB SCH (19:40)
[2022-06-28] MEDS: AMITRIPTYLINE HCL 10 MG TAB PO SCH (21:00)
[2022-06-28] MEDS: HEPARIN SODIUM,PORCINE/PF 5,000 UNIT/0.5 ML SYRINGE SQ SCH (21:00)
[2022-06-28] MEDS: ATORVASTATIN 40 MG TAB PO SCH (21:00)
--- NOTE | 2022-06-28 23:45 | P.HPIM ---
History of Present Illness H&P Date: 06/28/22 Chief Complaint: Weakness Patient is a 71-year-old male with a known history of COPD, hyperlipidemia, obstructive sleep apnea, and history of perforated duodenal ulcer and chronic back pain, anxiety/depression. History of smoking presents to ER with complaints of generalized weakness and lethargy and cough with shortness of breath for the past 2 to 3 days. Patient also had fall and hit his head. Denies any complaints of fever. No nausea vomiting abdominal pain or diarrhea. No complaints of chest pain. CT head and cervical spine showed cerebral atrophy. No acute infection abnormality. Minor degenerative changes in the cervical spine. No fracture. No significant change compared to old exam. CTA chest showed no evidence for PE. Correlate for underlying pneumonia. Underlying fibrotic changes noted. EKG showed sinus rhythm with occasional supraventricular premature complexes. Laboratory data showed WBC 12.4 hemoglobin 13.1 platelets 471 D-dimer 2.05 Sodium 134 potassium 4.4 chloride 92 bicarb 34 BUN 19 and creatinine 0.61 and blood sugar is 135 and calcium 8.3 and troponin x3 negative proBNP 1050 and procalcitonin level is 0.13 and coronavirus PCR not detected. Review of Systems Constitutional: Patient denies any fever or chills . Patient does have generalized weakness and fatigue. Abdomen: Patient denied any nausea or vomiting or abd. pain Cardiovascular: Patient denies any chest pain positive for short of breath no palpitations. Respiratory: Patient does have cough without sputum production. Shortness of breath. Neurologic: Patient denied any numbness or tingling headache. Musculoskeletal: Patient denies any complaints of joint swelling or deformity. Skin: Negative Psychiatric: Negative Endocrine: No heat or cold intolerance. No recent weight gain. Genitourinary: No dysuria or hematuria. All other 14 point ROS negative except the above Past Medical History Past Medical History: Heart Failure, COPD, Hyperlipidemia, Osteoarthritis (OA), Pneumonia, Rheumatoid Arthritis (RA), Sleep Apnea/CPAP/BIPAP Additional Past Medical History / Comment(s): COPD, chronic hypoxic respiratory failure previous history of pneumoperitoneum related to a perforated duodenal ulcer, repair of an umbilical hernia, chronic back pain, back stenosis, History of Any Multi-Drug Resistant Organisms: None Reported Past Surgical History: Orthopedic Surgery Additional Past Surgical History / Comment(s): colonoscopy, repair of a perforated duodenal ulcer and repair of an incarcerated umbilical hernia, left knee arthroscopy Past Anesthesia/Blood Transfusion Reactions: No Reported Reaction Past Psychological History: Anxiety, Depression Additional Psychological History / Comment(s): Pt resides with his spouse of 38 yrs. He has home oxygen which he wears at 6L/NC. He has a nebulizer. Smoking Status: Former smoker Past Alcohol Use History: Daily Additional Past Alcohol Use History / Comment(s): Patient smoked 2 packs per day for 40+ years. He quit 6 years ago. He denies any illicit drug use or marijuana use. He drinks 2 beers per day but none since previous admission and December. 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 Mother Family Medical History: Cancer, CVA/TIA, Dementia, Diabetes Mellitus Additional Family Medical History / Comment(s): Mother is 88yrs old with history of dementia and colon cancer. Sister(s) Additional Family Medical History / Comment(s): Patient 3 sons with no major medical problems. Medications and Allergies Home Medications Medication Instructions Recorded Confirmed Type Metoprolol Succinate [Toprol XL] 25 mg PO DAILY 01/12/20 06/27/22 History Sertraline [Zoloft] 150 mg PO DAILY 01/12/20 06/27/22 History Amitriptyline HCl [Elavil] 10 mg PO HS 12/06/20 06/27/22 History Celecoxib [CeleBREX] 200 mg PO DAILY 12/06/20 06/27/22 History Clopidogrel [Plavix] 75 mg PO DAILY #14 tab 12/13/20 06/27/22 Rx Fluticasone Nasal Gorman [Flonase 1 spr EA NOSTRIL BID 07/10/21 06/27/22 History Nasal Gorman] Alendronate Sodium [Fosamax] 70 mg PO MO 03/03/22 06/27/22 History Atorvastatin [Lipitor] 40 mg PO HS 03/03/22 06/27/22 History Fluticasone/Umeclidin/Vilanter 1 puff INHALATION RT-DAILY 03/03/22 06/27/22 History [Trelegy Ellipta 100-62.5-25] Omeprazole 40 mg PO DAILY 03/03/22 06/27/22 History predniSONE 2.5 mg PO DAILY 03/03/22 06/27/22 History Budesonide [Pulmicort] 0.5 mg INHALATION RT-BID 06/27/22 06/27/22 History Leflunomide [Arava] 20 mg PO DAILY 06/27/22 06/27/22 History Allergies Allergy/AdvReac Type Severity Reaction Status Date / Time amoxicillin AdvReac Nausea & Verified 06/27/22 22:00 Vomiting Physical Exam Vitals: Vital Signs Temp Pulse Pulse Resp BP BP Pulse Ox 06/28/22 08:00 97.3 F L 83 17 94/55 89 L 06/28/22 00:30 98.4 F 81 17 93/44 92 L 06/28/22 00:00 71 15 108/72 98 06/27/22 18:48 89 18 95/61 95 06/27/22 17:39 22 06/27/22 16:35 97.5 F L 98 18 111/73 95 Intake and Output 06/27/22 06/28/22 06/28/22 22:59 06:59 14:59 Other: # Voids 1 Weight 58.967 kg 58.967 kg PHYSICAL EXAMINATION: Patient is lying in the bed comfortably, no acute distress, awake alert and oriented.. HEENT: Normocephalic. Neck is supple. Pupils reactive. Nostrils clear. Oral cavity is moist. Neck reveals no JVD, carotid bruits, or thyromegaly. CHEST EXAMINATION: Trachea is central. Symmetrical expansion. Bibasilar diminished sounds and minimal crackles. Nonlabored breathing. Mild expiratory wheezing.. CARDIAC: Normal S1, S2 with no gallops. No murmurs ABDOMEN: Soft. Bowel sounds present. Nontender. No organomegaly. No abdominal bruits. Extremities: reveal no edema. No clubbing or cyanosis Neurologically awake, alert, oriented x3 with well-coordinated movements. No focal deficits noted Skin: No rash or skin lesions. Psychiatric: Coperative. Nonsuicidal, Musculoskeletal: No joint swelling or deformity. Normal range of motion. Results CBC & Chem 7: 06/27/22 16:44 06/27/22 16:44 Labs: Abnormal Lab Results - Last 24 Hours (Table) 06/27/22 06/27/22 06/27/22 Range/Units 16:44 16:44 16:44 WBC 12.5 H (3.8-10.6) k/uL Plt Count 471 H (150-450) k/uL Neutrophils # 9.9 H (1.3-7.7) k/uL D-Dimer 2.05 H (<0.60) mg/L FEU Sodium 135 L (137-145) mmol/L Chloride 92 L (98-107) mmol/L Carbon Dioxide 34 H (22-30) mmol/L Creatinine 0.61 L (0.66-1.25) mg/dL Glucose 135 H (74-99) mg/dL Calcium 8.3 L (8.4-10.2) mg/dL Albumin 3.1 L (3.5-5.0) g/dL Thrombosis Risk Factor Assmnt - DVT/VTE Prophylaxis DVT/VTE Prophylaxis: Pharmacologic Prophylaxis ordered - Choose All That Apply Any of the Below Risk Factors Present?: Yes Each Factor Represents 1 point: Abnormal pulmonary function (COPD) Other Risk Factors: Yes Each Risk Factor Represents 2 Points: Age 61-74 years Other congenital or acquired thrombophilia - If yes, enter type in comment: No Thrombosis Risk Factor Assessment Total Risk Factor Score: 3 Thrombosis Risk Factor Assessment Level: Moderate Risk Assessment and Plan Assessment: Acute hypoxic respiratory failure secondary to pneumonia and COPD exacerbation Left lower lobe pneumonia. Chronic hypoxic respiratory failure secondary to COPD on home oxygen via nasal cannula. Hyperlipidemia Osteoarthritis History of rheumatoid arthritis Obstructive sleep apnea on CPAP at home History of perforated duodenal ulcer History of depression Chronic CHF with preserved ejection fraction Place history of smoking DVT prophylaxis with heparin subcu plan: Patient is being current oxygen supplementation. Continue with duo nebs and IV Solu-Medrol and antibiotics ceftriaxone and azithromycin. Continue with home medications. Follow-up sputum cultures and bl ood cultures. Pulmonary is on board. Follow-up CBC and BMP tomorrow. Prognosis is guarded at this time. Time with Patient: Greater than 30
[2022-06-29] MEDS: methylPREDNISolone SOD SUCCI 125 MG/2 ML VIAL IV SCH ×4 (00:12→18:10)
[2022-06-29] MEDS: PANTOPRAZOLE 40 MG TABLET PO SCH (06:41)
[2022-06-29] MEDS: IPRATROPIUM-ALBUTEROL 3 ML NEB INHALATION SCH ×4 (07:25→19:43)
[2022-06-29] MEDS: BUDESONIDE 1 MG/2 ML NEBU INHALATION SCH ×2 (07:25→19:43)
[2022-06-29] MEDS: FORMOTEROL FUMARATE 20 MCG/2 ML NEBU INHALATION SCH ×2 (07:25→19:43)
--- NOTE | 2022-06-29 07:54 | P.PN ---
Subjective Progress Note Date: 06/29/22 Principal diagnosis: Pneumonia. Pulmonary consult dated 06/28/2022. 71-year-old male well-known to me, who has a history of COPD. He does use oxygen at home. Apparently for the last 2 or 3 days, he has been more lethargic, not eating, or drinking. He also has been complaining of shortness of breath, and cough. The patient was eventually seen in the emergency room, brought in by EMS, on June 27, and admitted with a diagnosis of COPD exacerbation, and left-sided pneumonia. He apparently had a fall prior to being admitted, and he hit the front of his head. His saturations apparently were also quite low, in the mid 80s. Currently, he is on 4 L nasal cannula. He is getting saline at 20 mL an hour. Chest x-ray and CAT scan are reviewed and show an infiltrate/pneumonia in the left lung. White count 12.5, hemoglobin 13.2, hematocrit 3, and platelet count 471,000. D-dimer is 2.05. Coagulation studies are normal. Sodium 135, potassium 4.4, chlorides 92, CO2 34, BUN 19, and creatinine 0.61. Anion gap is normal. Albumin 3.1. Troponins were 0.033, 0.032, and 0.028. Testing for coronavirus was negative. Progress note dated 06/29/2022. 71-year-old male admitted with a diagnosis of COPD exacerbation, and left-sided pneumonia. Currently, the patient's resting comfortably in bed. He is on 3 L of oxygen. No IV fluids. He is receiving both ceftriaxone and azithromycin for his pneumonia. Clinically he looks well. His pneumonia quite extensive, both on chest x-ray and on computed tomography scan. No new labs today. Objective - Vital Signs Vital signs: Vital Signs Temp 97.3 F L 06/29/22 07:05 Pulse 78 06/29/22 07:47 Resp 17 06/29/22 07:05 BP 85/47 06/29/22 07:05 Pulse Ox 94 L 06/29/22 07:26 FiO2 Intake & Output 06/28/22 06/29/22 06/29/22 18:59 06:59 18:59 Output Total 50 Balance -50 Output: Urine 50 Other: Voiding Method Urinal # Voids 1 - Exam No acute distress, oriented 3. Laying in bed. On 3.5 L of oxygen. No conversational dyspnea or use of accessory muscles. HEENT examination is grossly unremarkable. Neck supple. Full range of motion. No adenopathy thyromegaly or neck vein distention. Cardiovascular examination reveals regular rhythm rate. S1-S2 normal. No S3 or S4. No discernible murmur noted. Heart rate 78 bpm. Lungs reveal scattered rhonchi throughout. Breath sounds are equal bilaterally but diminished throughout. No crackles or wheezes. Saturations are 94%. Abdomen soft bowel sounds are heard. No masses or tenderness. Extremities are intact. No cyanosis clubbing or edema. Skin is without rash or lesion. Neurologic examination is brief but nonfocal. - Labs CBC & Chem 7: 06/27/22 16:44 06/27/22 16:44 Labs: Abnormal Lab Results - Last 24 Hours (Table) 06/27/22 Range/Units 16:44 Procalcitonin 0.13 H (0.02-0.09) ng/mL Microbiology - Last 24 Hours (Table) 06/27/22 20:20 Blood Culture - Preliminary Blood No Growth after 24 hours 06/27/22 20:10 Blood Culture - Preliminary Blood No Growth after 24 hours Assessment and Plan Assessment: Acute hypoxemic respiratory failure, secondary to COPD exacerbation, and complicated by left-sided pneumonia. History of severe oxygen-dependent COPD. History of CHF. History of hyperlipidemia. History of osteoarthritis. History of rheumatoid arthritis. History of sleep apnea syndrome, maintained on CPAP. History of perforated duodenal ulcer. History of anxiety/depression. Previous history of heavy tobacco use. Plan: Plan dated 06/28/2022. Patient is continued on azithromycin and Rocephin. We had albuterol sulfate and ipratropium bromide updraft treatments. In addition, we had Pulmicort, and formoterol, usual doses, and Solu-Medrol, 60 mg every 6 hours. Additional recommendations and suggestions are forthcoming. We will continue to follow the patient and make recommendations along the way. Prognosis is certainly guarded. Labs, x-rays, and medications are reviewed. Plan dated 06/29/2022. The patient continues on azithromycin and Rocephin. The patient's also receiving breathing treatments with albuterol sulfate and ipratropium bromide. In addition, the patient's receiving Solu-Medrol, as well as a inhaled cortico steroid and long-acting beta agonist. The patient will have a chest x-ray done in the morning. No additional recommendations are made. Labs, x-rays, and medications are reviewed Time with Patient: Less than 30
[2022-06-29 08:40] LABS: Basophils # (A) 0.02 X 10*3/uL (0.00-0.10); Basophils % (A) 0.2 %; Eosinophils # (A) 0 X 10*3/uL (0.04-0.35); Eosinophils % (A) 0 %; HCT 33.3 % (39.6-50.0); HGB 10.6 g/dL (13.0-17.0); Immature Grans, Automated 0.7 %; Lymphocytes # (A) 0.96 X 10*3/uL (0.90-5.00); MCH 29.6 pg (27.0-32.0); MCHC 31.8 g/dL (32.0-37.0); Mean Platelet Volume 9.9 fL (9.5-12.2); Monocytes # (A) 0.34 X 10*3/uL (0.20-1.00); Monocytes % (A) 3.2 %; NRBC Per 100 WBC 0 /100 WBCS (0.0-0.0); Neutrophils # (A) 9.29 X 10*3/uL (1.80-7.70); Neutrophils % (A) 86.9 %; Platelet Count 496 X 10*3/uL (140-440); RBC 3.58 X 10*6/uL (4.40-5.60); WBC 10.69 X 10*3/uL (4.50-10.00)
[2022-06-29 09:06] LABS: African American GFR (CKD) 120.3 (60.0-200.0); Anion Gap 7.2 mmol/L (10.00-18.00); BUN/Creat Ratio 27.26 Ratio (12.00-20.00); Blood Urea Nitrogen 15.1 mg/dL (9.0-27.0); Calcium 8.3 mg/dL (8.7-10.3); Carbon Dioxide 31.3 mmol/L (20.0-27.5); Non-African American GFR(CKD) 103.8 (60.0-200.0); Potassium 4.8 mmol/L (3.5-5.5)
[2022-06-29] MEDS: CLOPIDOGREL 75 MG TAB PO SCH (09:47)
[2022-06-29] MEDS: SERTRALINE 50 MG TAB PO SCH (09:50)
[2022-06-29] MEDS: METOPROLOL SUCCINATE (ER) 25 MG TAB.ER.24H PO SCH (09:50)
[2022-06-29] MEDS: HEPARIN SODIUM,PORCINE/PF 5,000 UNIT/0.5 ML SYRINGE SQ SCH ×2 (09:54→20:41)
[2022-06-29] MEDS: AZITHROMYCIN 500 MG in SODIUM CHLORIDE 0.9% 250 ML IVPB SCH (18:12)
--- NOTE | 2022-06-29 18:36 | P.PN ---
Subjective Progress Note Date: 06/29/22 71-year-old male with a known history of COPD, hyperlipidemia, obstructive sleep apnea, and history of perforated duodenal ulcer and chronic back pain, anxiety/depression. History of smoking presents to ER with complaints of generalized weakness and lethargy and cough with shortness of breath for the pas t 2 to 3 days. Patient also had fall and hit his head. Denies any complaints of fever. No nausea vomiting abdominal pain or diarrhea. No complaints of chest pain. CT head and cervical spine showed cerebral atrophy. No acute infection abnormality. Minor degenerative changes in the cervical spine. No fracture. No significant change compared to old exam. CTA chest showed no evidence for PE. Correlate for underlying pneumonia. Underlying fibrotic changes noted. EKG showed sinus rhythm with occasional supraventricular premature complexes. Laboratory data showed WBC 12.4 hemoglobin 13.1 platelets 471 D-dimer 2.05 Sodium 134 potassium 4.4 chloride 92 bicarb 34 BUN 19 and creatinine 0.61 and blood sugar is 135 and calcium 8.3 and troponin x3 negative proBNP 1050 and procalcitonin level is 0.13 and coronavirus PCR not detected. Objective - Vital Signs Vital signs: Vital Signs Temp 97.8 F 06/29/22 14:11 Pulse 98 06/29/22 14:11 Resp 24 06/29/22 14:11 BP 91/50 06/29/22 14:11 Pulse Ox 93 L 06/29/22 14:11 FiO2 Intake & Output 06/28/22 06/29/22 06/29/22 18:59 06:59 18:59 Intake Total 500 Output Total 50 Balance -50 500 Intake: Oral 500 Output: Urine 50 Other: Voiding Method Urinal # Voids 1 2 - Exam HEENT: Normocephalic. Neck is supple. Pupils reactive. Nostrils clear. Oral cavity is moist. Neck reveals no JVD, carotid bruits, or thyromegaly. CHEST EXAMINATION: Trachea is central. Symmetrical expansion. Bibasilar diminished sounds and minimal crackles. Nonlabored breathing. Mild expiratory wheezing.. CARDIAC: Normal S1, S2 with no gallops. No murmurs ABDOMEN: Soft. Bowel sounds present. Nontender. No organomegaly. No abdominal bruits. Extremities: reveal no edema. No clubbing or cyanosis Neurologically awake, alert, oriented x3 with well-coordinated movements. No focal deficits noted Skin: No rash or skin lesions. Psychiatric: Coperative. Nonsuicidal, Musculoskeletal: No joint swelling or deformity. Normal range of motion. - Labs CBC & Chem 7: 06/29/22 05:41 06/29/22 05:41 Labs: Abnormal Lab Results - Last 24 Hours (Table) 06/29/22 06/29/22 Range/Units 05:41 05:41 WBC 10.69 H (4.50-10.00) X 10*3/uL RBC 3.58 L (4.40-5.60) X 10*6/uL Hgb 10.6 L (13.0-17.0) g/dL Hct 33.3 L (39.6-50.0) % MCHC 31.8 L (32.0-37.0) g/dL RDW 15.0 H (11.5-14.5) % Plt Count 496 H (140-440) X 10*3/uL Immature Gran # 0.08 H (0.00-0.04) X 10*3/uL Neutrophils # 9.29 H (1.80-7.70) X 10*3/uL Eosinophils # 0 L (0.04-0.35) X 10*3/uL Carbon Dioxide 31.3 H (20.0-27.5) mmol/L Anion Gap 7.20 L (10.00-18.00) mmol/L BUN/Creatinine Ratio 27.26 H (12.00-20.00) Ratio Glucose 150 H (70-110) mg/dL Calcium 8.3 L (8.7-10.3) mg/dL Microbiology - Last 24 Hours (Table) 06/27/22 20:20 Blood Culture - Preliminary Blood No Growth after 24 hours 06/27/22 20:10 Blood Culture - Preliminary Blood No Growth after 24 hours Assessment and Plan Assessment: Acute hypoxic respiratory failure secondary to pneumonia and COPD exacerbation Left lower lobe pneumonia. Chronic hypoxic respiratory failure secondary to COPD on home oxygen via nasal cannula. Hyperlipidemia Osteoarthritis History of rheumatoid arthritis Obstructive sleep apnea on CPAP at home History of perforated duodenal ulcer History of depression Chronic CHF with preserved ejection fraction Place history of smoking DVT prophylaxis with heparin subcu plan: Patient is being current oxygen supplementation. Continue with duo nebs and IV Solu-Medrol and antibiotics ceftriaxone and azithr omycin. Continue with home medications. Follow-up sputum cultures and blood cultures. Pulmonary is on board. Follow-up CBC and BMP tomorrow. Prognosis is guarded at this time.
[2022-06-29] MEDS: AMITRIPTYLINE HCL 10 MG TAB PO SCH (20:40)
[2022-06-29] MEDS: ATORVASTATIN 40 MG TAB PO SCH (20:40)
[2022-06-30] MEDS: methylPREDNISolone SOD SUCCI 125 MG/2 ML VIAL IV SCH ×3 (00:49→12:41)
[2022-06-30] MEDS: PANTOPRAZOLE 40 MG TABLET PO SCH (06:17)
[2022-06-30] MEDS: HEPARIN SODIUM,PORCINE/PF 5,000 UNIT/0.5 ML SYRINGE SQ SCH (07:53)
[2022-06-30] MEDS: METOPROLOL SUCCINATE (ER) 25 MG TAB.ER.24H PO SCH (07:54)
[2022-06-30] MEDS: SERTRALINE 50 MG TAB PO SCH (07:54)
[2022-06-30] MEDS: CLOPIDOGREL 75 MG TAB PO SCH (07:54)
[2022-06-30] MEDS: IPRATROPIUM-ALBUTEROL 3 ML NEB INHALATION SCH ×2 (08:06→11:43)
[2022-06-30] MEDS: BUDESONIDE 1 MG/2 ML NEBU INHALATION SCH (08:06)
[2022-06-30] MEDS: FORMOTEROL FUMARATE 20 MCG/2 ML NEBU INHALATION SCH (08:06)
[2022-06-30 08:30] VITALS: BP 108/56; RESP 16; TEMP 97.4
[2022-06-30 08:35] VITALS: PULSE 96
--- NOTE | 2022-06-30 12:56 | P.PN ---
Subjective Progress Note Date: 06/30/22 71-year-old male well-known to me, who has a history of COPD. He does use oxygen at home. Apparently for the last 2 or 3 days, he has been more lethargic, not eating, or drinking. He also has been complaining of shortness of breath, and cough. The patient was eventually seen in the emergency room, brought in by EMS, on June 27, and admitted with a diagnosis of COPD exacerbation, and left-sided pneumonia. He apparently had a fall prior to being admitted, and he hit the front of his head. His saturations apparently were also quite low, in the mid 80s. Currently, he is on 4 L nasal cannula. He is getting saline at 20 mL an hour. Chest x-ray and CAT scan are reviewed and show an infiltrate/pneumonia in the left lung. White count 12.5, hemoglobin 13.2, hematocrit 3, and platelet count 471,000. D-dimer is 2.05. Coagulation studies are normal. Sodium 135, potassium 4.4, chlorides 92, CO2 34, BUN 19, and creatinine 0.61. Anion gap is normal. Albumin 3.1. Troponins were 0.033, 0.03 2, and 0.028. Testing for coronavirus was negative. Progress note dated 06/29/2022. 71-year-old male admitted with a diagnosis of COPD exacerbation, and left-sided pneumonia. Currently, the patient's resting comfortably in bed. He is on 3 L of oxygen. No IV fluids. He is receiving both ceftriaxone and azithromycin for his pneumonia. Clinically he looks well. His pneumonia quite extensive, both on chest x-ray and on computed tomography scan. No new labs today. The patient was seen today 06/30/2022 in follow-up on the regular medical floor. He is currently sitting up in a chair at the bedside. Awake and alert in no acute distress. He is maintaining good O2 saturations in the 90s on 4 L/m per nasal cannula. Blood cultures revealed no growth. No new labs today. He is continued on DuoNeb inhalations, Pulmicort and Perforomist inhalations, IV Solu- Medrol. Heparin for DVT prophylaxis. Antibiotics in the form of ceftriaxone and azithromycin. Procalcitonin 0.13. Chest x-ray shows slightly improved left lung pneumonia. Objective - Vital Signs Vital signs: Vital Signs Temp 97.4 F L 06/30/22 08:00 Pulse 96 06/30/22 08:34 Resp 16 06/30/22 08:00 BP 108/56 06/30/22 08:00 Pulse Ox 97 06/30/22 08:00 FiO2 Intake & Output 06/29/22 06/30/22 06/30/22 18:59 06:59 18:59 Intake Total 750 120 Output Total 50 Balance 750 -50 120 Intake: Intake, IV Titration 250 Amount Azithromycin 500 mg In 250 Sodium Chloride 0.9% 250 ml @ 250 mls/hr IVPB Q24H [facility] Rx#:[id number] Oral 500 120 Output: Urine 50 Other: Voiding Method Urinal # Voids 2 1 1 - Exam GENERAL EXAM: Alert, very pleasant 71-year-old male, up in a chair at the bedside, and 4 L nasal cannula, comfortable in no apparent distress. HEAD: Normocephalic. EYES: Normal reaction of pupils, equal size. NOSE: Clear with pink turbinates. THROAT: No erythema or exudates. NECK: No masses, no JVD. CHEST: No chest wall deformity. LUNGS: Equal air entry with end expiratory wheeze, diminished. CVS: S1 and S2 normal with no audible murmur, regular rhythm. ABDOMEN: No hepatosplenomegaly, normal bowel sounds, no guarding or rigidity. SPINE: No scoliosis or deformity SKIN: No rashes CENTRAL NERVOUS SYSTEM: No focal deficits, tone is normal in all 4 extremities. EXTREMITIES: There is no peripheral edema. No clubbing, no cyanosis. Peripheral pulses are intact. - Labs CBC & Chem 7: 06/29/22 05:41 06/29/22 05:41 Labs: Microbiology - Last 24 Hours (Table) 06/27/22 20:20 Blood Culture - Preliminary Blood No Growth after 48 hours 06/27/22 20:10 Blood Culture - Preliminary Blood No Growth after 48 hours Assessment and Plan Assessment: Acute hypoxemic respiratory failure, secondary to COPD exacerbation, and complicated by left-sided pneumonia. History of severe oxygen-dependent COPD. History of CHF. History of hyperlipidemia. History of osteoarthritis. History of rheumatoid arthritis. History of sleep apnea syndrome, maintained on CPAP. History of perforated duodenal ulcer. History of anxiety/depression. Previous history of heavy tobacco use. Plan: The patient was seen and evaluated Chest x-ray medications reviewed Cleared for discharge from the pulmonary standpoint Complete prednisone taper starting at 40 mg daily for 4 days Complete a seven-day course of antibiotics Continue his home pulmonary medications and oxygen Follow-up in our office in 1 week I have personally seen and examined the patient, performed the documentation and the assessment and plan as written. Number of minutes spent on the visit: 10.
[2022-06-30 12:57] LABS: Basophils % (A) 0 %; Eosinophils % (A) 0 %; HCT 36.7 % (39.0-53.0); HGB 11.8 gm/dL (13.0-17.5); Hypochromasia Moderate; Lymphocytes # (A) 0.8 k/uL (1.0-4.8); Lymphocytes % (A) 7 %; MCH 30.3 pg (25.0-35.0); MCHC 32.1 g/dL (31.0-37.0); MCV 94.3 fL (80.0-100.0); Mean Platelet Volume 7.3; Monocytes # (A) 0.5 k/uL (0-1.0); Monocytes % (A) 4 %; Neutrophils # (A) 9.9 k/uL (1.3-7.7); Neutrophils % (A) 88 %; Platelet Count 478 k/uL (150-450); RBC 3.89 m/uL (4.30-5.90); RDW 15.1 % (11.5-15.5); WBC 11.3 k/uL (3.8-10.6)
[2022-06-30 13:07] LABS: African American GFR (CKD) >90 (>60 ml/min/1.73 sqM); Anion Gap 6 mmol/L; Blood Urea Nitrogen 16 mg/dL (9-20); Calcium 7.9 mg/dL (8.4-10.2); Carbon Dioxide 34 mmol/L (22-30); Chloride 96 mmol/L (98-107); Glucose 116 mg/dL (74-99); Non-African American GFR(CKD) >90 (>60 ml/min/1.73 sqM); Potassium 4.8 mmol/L (3.5-5.1); Sodium 136 mmol/L (137-145)
--- NOTE | 2022-06-30 14:29 | XR ---
EXAMINATION TYPE: XR chest 1V portable DATE OF EXAM: 06/30/2022 COMPARISON: 06/27/2022 INDICATION: Left lung pneumonia TECHNIQUE: Single frontal view of the chest is obtained. FINDINGS: The heart size is normal. The pulmonary vasculature is normal. Patchy bilateral lung infiltrates are present. This is more focal in the left perihilar region. Yunior nued follow-up is recommended. IMPRESSION: 1. Left perihilar infiltrate with mild diffuse increased lung markings present bilaterally. Correlate for pneumonia and atypical pneumonia. Continued follow-up is recommended.
--- NOTE | 2022-06-30 15:07 | P.DS ---
Providers Date of admission: 06/27/22 20:08 Expected date of discharge: 06/30/22 Attending physician: Tonya Montiel Primary care physician: [facility] Course: 71-year-old male with a known history of COPD, hyperlipidemia, obstructive sleep apnea, and history of perforated duodenal ulcer and chronic back pain, anxiety/depression. History of smoking presents to ER with complaints of generalized weakness and lethargy and cough with shortness of breath for the past 2 to 3 days. Patient also had fall and hit his head. Denies any complaints of fever. No nausea vomiting abdominal pain or diarrhea. No complaints of chest pain. CT head and cervical spine showed cerebral atrophy. No acute infection abnormality. Minor degenerative changes in the cervical spine. No fracture. No significant change compared to old exam. CTA chest showed no evidence for PE. Correlate for underlying pneumonia. Underlying fibrotic changes noted. EKG showed sinus rhythm with occasional supraventricular premature complexes. Laboratory data showed WBC 12.4 hemoglobin 13.1 platelets 471 D-dimer 2.05 Sodium 134 potassium 4.4 chloride 92 bicarb 34 BUN 19 and creatinine 0.61 and blood sugar is 135 and calcium 8.3 and troponin x3 negative proBNP 1050 and procalcitonin level is 0.13 and coronavirus PCR not detected. Acute hypoxic respiratory failure secondary to pneumonia and COPD exacerbation Left lower lobe pneumonia. Chronic hypoxic respiratory failure secondary to COPD on home oxygen via nasal cannula. Hyperlipidemia Osteoarthritis History of rheumatoid arthritis Obstructive sleep apnea on CPAP at home History of perforated duodenal ulcer History of depression Chronic CHF with preserved ejection fraction Place history of smoking DVT prophylaxis with heparin subcu plan: Patient is being current oxygen supplementation. Continue with duo nebs and IV Solu-Medrol and antibiotics ceftriaxone and azithromycin. Continue with home medications. Follow-up sputum cultures and blood cultures. Patient responded well to treatment and has been cleared for discharge by pulmonary service on oral antibiotic and steroids Plan - Discharge Summary Discharge Rx Participant: Yes New Discharge Prescriptions: New predniSONE [Deltasone] 40 mg PO DAILY 5 Days #5 tab Cefdinir 300 mg PO Q12HR 5 Days #10 cap Azithromycin [Zithromax] 500 mg PO DAILY 3 Days #3 tab Continue Metoprolol Succinate [Toprol XL] 25 mg PO DAILY Sertraline [Zoloft] 150 mg PO DAILY Celecoxib [CeleBREX] 200 mg PO DAILY Clopidogrel [Plavix] 75 mg PO DAILY #14 tab Fluticasone Nasal [place] [Flonase Nasal [place]] 1 spr EA NOSTRIL BID Alendronate Sodium [Fosamax] 70 mg PO MO Atorvastatin [Lipitor] 40 mg PO HS predniSONE 2.5 mg PO DAILY Amitriptyline HCl [Elavil] 10 mg PO HS Fluticasone/Umeclidin/Vilanter [Trelegy Ellipta 100-62.5-25] 1 puff INHALATION RT-DAILY Omeprazole 40 mg PO DAILY Leflunomide [Arava] 20 mg PO DAILY Budesonide [Pulmicort] 0.5 mg INHALATION RT-BID Discharge Medication List Metoprolol Succinate [Toprol XL] 25 mg PO DAILY 01/12/20 [History] Sertraline [Zoloft] 150 mg PO DAILY 01/12/20 [History] Amitriptyline HCl [Elavil] 10 mg PO HS 12/06/20 [History] Celecoxib [CeleBREX] 200 mg PO DAILY 12/06/20 [History] Clopidogrel [Plavix] 75 mg PO DAILY #14 tab 12/13/20 [Rx] Fluticasone Nasal [place] [Flonase Nasal [place]] 1 spr EA NOSTRIL BID 07/10/21 [History] Alendronate Sodium [Fosamax] 70 mg PO MO 03/03/22 [History] Atorvastatin [Lipitor] 40 mg PO HS 03/03/22 [History] Fluticasone/Umeclidin/Vilanter [Trelegy Ellipta 100-62.5-25] 1 puff INHALATION RT-DAILY 03/03/22 [History] Omeprazole 40 mg PO DAILY 03/03/22 [History] predniSONE 2.5 mg PO DAILY 03/03/22 [History] Budesonide [Pulmicort] 0.5 mg INHALATION RT-BID 06/27/22 [History] Leflunomide [Arava] 20 mg PO DAILY 06/27/22 [History] Azithromycin [Zithromax] 500 mg PO DAILY 3 Days #3 tab 06/30/22 [Rx] Cefdinir 300 mg PO Q12HR 5 Days #10 cap 06/30/22 [Rx] predniSONE [Deltasone] 40 mg PO DAILY 5 Days #5 tab 06/30/22 [Rx] Follow up Appointment(s)/Referral(s): Razia Holbrook MD [Primary Care Provider] - 1-2 days [facility], [NON-STAFF] - 1-2 Days
--- NOTE | 2022-07-05 12:10 | CDI ---
Documentation Clarification Form Date: 07/05/22 From: Merlene Murguia Admit Date: 06/27/2022 08:08:00 PM Patient Name: Lex Pierce Visit Number: [id number] Discharge Date: 06/30/2022 03:35:00 PM ATTENTION: The Clinical Documentation Specialists (CDI) and [facility] Coding Staff appreciate your assistance in clarifying documentation. Please respond to the clarification below the line at the bottom and electronically sign. The CDI & [facility] Coding staff will review the response and follow-up if needed. Please note: Queries are made part of the Legal Health Record. If you have any questions, please contact the author of this message via ITS. Dr. Lex Weaver, Acute on chronic hypoxic respiratory failure is documented in your consult on 06/28 which may lack sufficient clinical evidence/support in the medical record. Additional clarification is requested. History/Risk Factors: pneumonia, chronic diastolic CHF, emphysema, RA, PATTY, cerebral atrophy Clinical Indicators: CO2 (06/27-06/30) 34, 31.3, 34 Patient bumped up 6L NC at home, unknown regular oxygen liters at home. His states that earlier today, his oxygen had dropped into the high 80'S. Patient has pneumonia. No ABGs. EMS run sheets document application of 3LNC and the O2 sats did not improve. Chronic hypoxic respiratory failure secondary to severe COPD with previous history of heavy tobacco use. At time of your consult patient on 4L NC. Treatment: O2 NC was up and down, nebulizer Please clarify if acute on chronic hypoxic respiratory failure is a valid diagnosis? [ x ] Yes, acute on chronic hypoxic respiratory failure is present as evidence by (additional clinical support): [ ] No, acute hypoxic respiratory failure is ruled out [ ] Other (please specify diagnosis) [ ] Unable to determine MTDD
== END 2022-06-30 15:35 | disposition home health service (06) | DRG 193 ==
LOC: EC 16:34 → 4SSUR 20:08 → 6NMEDSUR 20:46
PROVIDERS: ADMIT Hospitalist; ATTEND Hospitalist
DX: J18.9 Pneumonia, unspecified organism (principal); J96.21 Acute and chronic respiratory failure with hypoxia; I50.32 Chronic diastolic (congestive) heart failure; J43.9 Emphysema, unspecified; M06.9 Rheumatoid arthritis, unspecified; G31.9 Degenerative disease of nervous system, unspecified; Z20.822 Contact with and (suspected) exposure to COVID-19; E78.5 Hyperlipidemia, unspecified; G47.33 Obstructive sleep apnea (adult) (pediatric); F32.A Depression, unspecified; F41.9 Anxiety disorder, unspecified; I49.1 Atrial premature depolarization; G89.29 Other chronic pain; M54.9 Dorsalgia, unspecified; Z87.01 Personal history of pneumonia (recurrent); M19.90 Unspecified osteoarthritis, unspecified site; Z99.81 Dependence on supplemental oxygen; Z79.83 Long term (current) use of bisphosphonates; Z79.1 Long term (current) use of non-steroidal anti-inflammatories (NSAID); Z79.02 Long term (current) use of antithrombotics/antiplatelets; Z79.51 Long term (current) use of inhaled steroids; Z79.52 Long term (current) use of systemic steroids; Z79.899 Other long term (current) drug therapy; Z87.891 Personal history of nicotine dependence; Z88.0 Allergy status to penicillin; W18.30XA Fall on same level, unspecified, initial encounter
CPT/HCPCS: 36415; 70450; 71045; 71046; 71275; 72125; 80048; 80053; 83605; 83880; 84145; 84484; 85025; 85379; 85610; 85730; 87040; 87502; 87635; 93005; 94640; 94760; 96365; 96366; 96375; 99285

== ENCOUNTER 2022-07-13 13:19 | Inpatient (IN) | payer MEDICARE, OTHER ==
[2022-07-13] MEDS ORDERED: IPRATROPIUM-ALBUTEROL 3 ML NEB INHALATION STA (13:28)
--- NOTE | 2022-07-13 13:31 | ED ---
General Adult HPI - General Chief complaint: Upper Respiratory Infection Stated complaint: pneumonia Time Seen by Provider: 07/13/22 13:22 Source: patient, RN notes reviewed, old records reviewed (Review previous visits and x-ray) Mode of arrival: EMS Limitations: no limitations - History of Present Illness Initial comments: Patient is a pleasant 71-year-old male presenting to the emergency department with concern with difficulty in breathing. Patient does have COPD. Patient was here 3 days ago and diagnosed with pneumonia. Patient feels his symptoms have worsened since that time. Patient does have cough with productive green sputum. No fever. No leg pain or leg swelling. - Related Data Home Medications Medication Instructions Recorded Confirmed Metoprolol Succinate [Toprol XL] 25 mg PO DAILY 01/12/20 06/27/22 Sertraline [Zoloft] 150 mg PO DAILY 01/12/20 06/27/22 Amitriptyline HCl [Elavil] 10 mg PO HS 12/06/20 06/27/22 Celecoxib [CeleBREX] 200 mg PO DAILY 12/06/20 06/27/22 Fluticasone Nasal [place] [Flonase 1 spr EA NOSTRIL BID 07/10/21 06/27/22 Nasal [place]] Alendronate Sodium [Fosamax] 70 mg PO MO 03/03/22 06/27/22 Atorvastatin [Lipitor] 40 mg PO HS 03/03/22 06/27/22 Fluticasone/Umeclidin/Vilanter 1 puff INHALATION RT-DAILY 03/03/22 06/27/22 [Trelegy Ellipta 100-62.5-25] Omeprazole 40 mg PO DAILY 03/03/22 06/27/22 predniSONE 2.5 mg PO DAILY 03/03/22 06/27/22 Budesonide [Pulmicort] 0.5 mg INHALATION RT-BID 06/27/22 06/27/22 Leflunomide [Arava] 20 mg PO DAILY 06/27/22 06/27/22 Previous Rx's Medication Instructions Recorded Clopidogrel [Plavix] 75 mg PO DAILY #14 tab 12/13/20 Azithromycin [Zithromax] 500 mg PO DAILY 3 Days #3 tab 06/30/22 Cefdinir 300 mg PO Q12HR 5 Days #10 cap 06/30/22 predniSONE [Deltasone] 40 mg PO DAILY 5 Days #5 tab 06/30/22 Allergies Allergy/AdvReac Type Severity Reaction Status Date / Time amoxicillin AdvReac Nausea & Verified 06/27/22 22:00 Vomiting Review of Systems ROS Statement: Those systems with pertinent positive or pertinent negative responses have been documented in the HPI. ROS Other: All systems not noted in ROS Statement are negative. Constitutional: Denies: fever Eyes: Denies: eye pain ENT: Denies: ear pain Respiratory: Reports: as per HPI, cough, dyspnea Cardiovascular: Denies: chest pain Endocrine: Reports: fatigue Gastrointestinal: Denies: abdominal pain Genitourinary: Denies: dysuria Musculoskeletal: Denies: back pain Skin: Denies: rash Neurological: Denies: weakness Past Medical History Past Medical History: Heart Failure, COPD, Hyperlipidemia, Osteoarthritis (OA), Pneumonia, Rheumatoid Arthritis (RA), Sleep Apnea/CPAP/BIPAP Additional Past Medical History / Comment(s): COPD, chronic hypoxic respiratory failure previous history of pneumoperitoneum related to a perforated duodenal ulcer, repair of an umbilical hernia, chronic back pain, back stenosis, History of Any Multi-Drug Resistant Organisms: None Reported Past Surgical History: Orthopedic Surgery Additional Past Surgical History / Comment(s): colonoscopy, repair of a p erforated duodenal ulcer and repair of an incarcerated umbilical hernia, left knee arthroscopy Past Anesthesia/Blood Transfusion Reactions: No Reported Reaction Past Psychological History: Anxiety, Depression Smoking Status: Former smoker Past Alcohol Use History: Daily Past Drug Use History: None Reported - Past Family History Father Family Medical History: Cancer Additional Family Medical History / Comment(s): Father of leukemia. Mother Family Medical History: Cancer, CVA/TIA, Dementia, Diabetes Mellitus Additional Family Medical History / Comment(s): Mother is 88yrs old with history of dementia and colon cancer. Sister(s) Additional Family Medical History / Comment(s): Patient 3 sons with no major medical problems. General Exam Limitations: no limitations General appearance: alert, in no apparent distress Head exam: Present: normocephalic Eye exam: Present: normal appearance Neck exam: Present: normal inspection Respiratory exam: Present: decreased breath sounds Cardiovascular Exam: Present: regular rate, normal rhythm GI/Abdominal exam: Present: soft. Absent: tenderness Extremities exam: Present: normal inspection. Absent: pedal edema, calf tenderness Neurological exam: Present: alert Psychiatric exam: Present: normal affect, normal mood Skin exam: Present: normal color Course Vital Signs 07/13/22 13:22 Temperature 98.4 F Pulse Rate 99 Respiratory 20 Rate Blood Pressure 105/64 O2 Sat by Pulse 90 L Oximetry - Reevaluation(s) Reevaluation #1: 07/13/22 14:35 Patient does meet sepsis criteria diagnosed at 1430. Blood culture and lactic acid and IV antibiotics will all be ordered. EKG Findings - EKG Comments: EKG Findings:: Sinus rhythm 93. ID 121. QRS 94. QT 371. QTC 422. Right axis. RVH. No acute ST change. Interpreted by myself. Medical Decision Making - Medical Decision Making Patient reevaluated and updated. Dr. Steinberg has been paged for admission, covering Dr. Holbrook - Lab Data Result diagrams: 07/13/22 13:35 07/13/22 13:35 Lab Results 07/13/22 07/13/22 07/13/22 Range/Units 13:35 13:35 13:35 WBC 13.8 H (3.8-10.6) k/uL RBC 3.86 L (4.30-5.90) m/uL Hgb 11.6 L (13.0-17.5) gm/dL Hct 36.2 L (39.0-53.0) % MCV 93.7 (80.0-100.0) fL MCH 30.0 (25.0-35.0) pg MCHC 32.0 (31.0-37.0) g/dL RDW 16.2 H (11.5-15.5) % Plt Count 252 (150-450) k/uL MPV 8.4 Neutrophils % 89 % Lymphocytes % 5 % Monocytes % 4 % Eosinophils % 1 % Basophils % 0 % Neutrophils # 12.2 H (1.3-7.7) k/uL Lymphocytes # 0.7 L (1.0-4.8) k/uL Monocytes # 0.5 (0-1.0) k/uL Eosinophils # 0.1 (0-0.7) k/uL Basophils # 0.1 (0-0.2) k/uL Hypochromasia Slight Anisocytosis Slight PT 10.6 (9.0-12.0) sec INR 1.0 (<1.2) APTT 24.4 (22.0-30.0) sec Sodium 133 L (137-145) mmol/L Potassium 4.2 (3.5-5.1) mmol/L Chloride 98 (98-107) mmol/L Carbon Dioxide 30 (22-30) mmol/L Anion Gap 5 mmol/L BUN 19 (9-20) mg/dL Creatinine 0.57 L (0.66-1.25) mg/dL Est GFR (CKD-EPI)AfAm >90 (>60 ml/min/1.73 sqM) Est GFR (CKD-EPI)NonAf >90 (>60 ml/min/1.73 sqM) Glucose 125 H (74-99) mg/dL Plasma Lactic Acid Steven (0.7-2.0) mmol/L Calcium 7.8 L (8.4-10.2) mg/dL Total Bilirubin 0.6 (0.2-1.3) mg/dL AST 17 (17-59) U/L ALT 25 (4-49) U/L Alkaline Phosphatase 91 (38-126) U/L Total Protein 5.9 L (6.3-8.2) g/dL Albumin 3.2 L (3.5-5.0) g/dL Coronavirus (PCR) (Not Detectd) Influenza Type A RNA (Not Detectd) Influenza Type B (PCR) (Not Detectd) 07/13/22 07/13/22 07/13/22 Range/Units 13:35 13:35 13:35 WBC (3.8-10.6) k/uL RBC (4.30-5.90) m/uL Hgb (13.0-17.5) gm/dL Hct (39.0-53.0) % MCV (80.0-100.0) fL MCH (25.0-35.0) pg MCHC (31.0-37.0) g/dL RDW (11.5-15.5) % Plt Count (150-450) k/uL MPV Neutrophils % % Lymphocytes % % Monocytes % % Eosinophils % % Basophils % % Neutrophils # (1.3-7.7) k/uL Lymphocytes # (1.0-4.8) k/uL Monocytes # (0-1.0) k/uL Eosinophils # (0-0.7) k/uL Basophils # (0-0.2) k/uL Hypochromasia Anisocytosis PT (9.0-12.0) sec INR (<1.2) APTT (22.0-30.0) sec Sodium (137-145) mmol/L Potassium (3.5-5.1) mmol/L Chloride (98-107) mmol/L Carbon Dioxide (22-30) mmol/L Anion Gap mmol/L BUN (9-20) mg/dL Creatinine (0.66-1.25) mg/dL Est GFR (CKD-EPI)AfAm (>60 ml/min/1.73 sqM) Est GFR (CKD-EPI)NonAf (>60 ml/min/1.73 sqM) Glucose (74-99) mg/dL Plasma Lactic Acid Steven 1.0 (0.7-2.0) mmol/L Calcium (8.4-10.2) mg/dL Total Bilirubin (0.2-1.3) mg/dL AST (17-59) U/L ALT (4-49) U/L Alkaline Phosphatase (38-126) U/L Total Protein (6.3-8.2) g/dL Albumin (3.5-5.0) g/dL Coronavirus (PCR) Not Detected (Not Detectd) Influenza Type A RNA Not Detected (Not Detectd) Influenza Type B (PCR) Not Detected (Not Detectd) - Radiology Data Radiology results: image reviewed (X-ray shows persistent left perihilar infiltrate, consider mass. X-ray reviewed and interpreted by me.) Critical Care Time Critical Care Time: Yes Total Critical Care Time: 33 Disposition Clinical Impression: Pneumonia, Sepsis, COPD (chronic obstructive pulmonary disease) Disposition: ADMITTED IP TO THIS HOSP Is patient prescribed a controlled substance at d/c from ED?: No Referrals: Razia Holbrook MD [Primary Care Provider] - 1-2 days Time of Disposition: 14:36
[2022-07-13] MEDS ORDERED: HYDROcodone/APAP 5-325MG 1 EACH TAB PO STA (14:04)
[2022-07-13 14:11] LABS: Partial Thromboplastin Time 24.4 sec (22.0-30.0); Prothrombin Time 10.6 sec (9.0-12.0)
[2022-07-13 14:15] LABS: ALT 25 U/L (4-49); AST 17 U/L (17-59); African American GFR (CKD) >90 (>60 ml/min/1.73 sqM); Albumin 3.2 g/dL (3.5-5.0); Alkaline Phosphatase 91 U/L (38-126); Anion Gap 5 mmol/L; Blood Urea Nitrogen 19 mg/dL (9-20); Calcium 7.8 mg/dL (8.4-10.2); Carbon Dioxide 30 mmol/L (22-30); Chloride 98 mmol/L (98-107); Glucose 125 mg/dL (74-99); Non-African American GFR(CKD) >90 (>60 ml/min/1.73 sqM); Potassium 4.2 mmol/L (3.5-5.1); Sodium 133 mmol/L (137-145); Total Bilirubin 0.6 mg/dL (0.2-1.3); Total Protein 5.9 g/dL (6.3-8.2)
[2022-07-13 14:16] LABS: Anisocytosis Slight; Basophils # (A) 0.1 k/uL (0-0.2); Basophils % (A) 0 %; Eosinophils # (A) 0.1 k/uL (0-0.7); Eosinophils % (A) 1 %; HCT 36.2 % (39.0-53.0); HGB 11.6 gm/dL (13.0-17.5); Hypochromasia Slight; Lymphocytes # (A) 0.7 k/uL (1.0-4.8); Lymphocytes % (A) 5 %; MCV 93.7 fL (80.0-100.0); Mean Platelet Volume 8.4; Monocytes # (A) 0.5 k/uL (0-1.0); Monocytes % (A) 4 %; Neutrophils # (A) 12.2 k/uL (1.3-7.7); Neutrophils % (A) 89 %; Platelet Count 252 k/uL (150-450); RBC 3.86 m/uL (4.30-5.90); RDW 16.2 % (11.5-15.5); WBC 13.8 k/uL (3.8-10.6)
--- NOTE | 2022-07-13 14:27 | XR ---
EXAMINATION TYPE: XR chest 2V DATE OF EXAM: 07/13/2022 COMPARISON: 06/30/2022 HISTORY: Shortness of breath TECHNIQUE: Frontal and lateral views of the chest are obtained. FINDINGS: Scattered senescent parenchymal changes noted. Hyperinflation compatible with COPD. Left perihilar density persists. Consider infiltrate. Underlying mass is not excluded. Heart size is stable. Mediastinal structures are stable and grossly unremarkable. No evidence for hilar prominence. Degenerative changes dorsal spine. IMPRESSION: 1. Left perihilar density persists. Consider infiltrate. Underlying mass is not excluded.
[2022-07-13] MEDS ORDERED: PNEUMONIA PROTOCOL UTILIZED 1 EACH MISC PO PRN (14:36)
[2022-07-13] MEDS ORDERED: IPRATROPIUM-ALBUTEROL 3 ML NEB INHALATION PRN (14:36)
[2022-07-13] MEDS ORDERED: AZITHROMYCIN 500 MG in SODIUM CHLORIDE 0.9% 250 ML IVPB STA (14:36)
[2022-07-13] MEDS ORDERED: SODIUM CHLORIDE 0.9% 1,000 ML IV STA (14:43)
[2022-07-13] MEDS: IPRATROPIUM-ALBUTEROL 3 ML NEB INHALATION SCH ×2 (15:28→18:58)
[2022-07-13] MEDS ORDERED: DOCUSATE 100 MG CAP PO PRN (19:37)
[2022-07-13] MEDS ORDERED: FLUTICASONE 50MCG/SPRAY NASAL 16GM EA NOSTRIL PRN (19:37)
[2022-07-13] MEDS: MORPHINE SULFATE 4 MG/ML SYRINGE IVP PRN ×2 (20:04→23:53)
[2022-07-13] MEDS: ATORVASTATIN 40 MG TAB PO SCH (20:58)
[2022-07-13] MEDS: AMITRIPTYLINE HCL 10 MG TAB PO SCH (20:58)
[2022-07-13] MEDS: predniSONE 2.5 MG TAB PO SCH (20:58)
[2022-07-13] MEDS: SERTRALINE 50 MG TAB PO SCH (20:58)
[2022-07-13] MEDS: HYDROcodone/APAP 7.5-325MG 1 EACH TAB PO PRN (22:17)
[2022-07-14] MEDS: HYDROcodone/APAP 7.5-325MG 1 EACH TAB PO PRN ×3 (04:12→20:58)
[2022-07-14] MEDS: BUDESONIDE 0.5 MG/2 ML NEBU INHALATION SCH ×2 (06:08→07:25)
[2022-07-14] MEDS: PANTOPRAZOLE 40 MG TABLET PO SCH (06:09)
[2022-07-14] MEDS: MORPHINE SULFATE 4 MG/ML SYRINGE IVP PRN ×2 (06:09→16:51)
[2022-07-14] MEDS: IPRATROPIUM-ALBUTEROL 3 ML NEB INHALATION SCH ×4 (07:25→20:43)
--- NOTE | 2022-07-14 07:47 | XR ---
EXAMINATION TYPE: XR chest 1V portable DATE OF EXAM: 07/14/2022 HISTORY: Shortness of breath. COMPARISON: 07/13/2022 TECHNIQUE: Single view of the chest is submitted. FINDINGS: Demonstrated are scattered senescent parenchymal change. Persistent interstitial prominence throughout both lung brown. Left perihilar infiltrate or mass per sists unchanged. Correlate clinically and progress studies are advised. The heart is stable. Hilar and mediastinal structures are within normal limits. Degenerative changes are seen of the dorsal spine. IMPRESSION: 1. Persistent interstitial prominence throughout both lung brown. Left perihilar infiltrate or mass persists unchanged. Correlate clinically and progress studies are advised.
[2022-07-14] MEDS: METOPROLOL SUCCINATE (ER) 25 MG TAB.ER.24H PO SCH (07:50)
[2022-07-14] MEDS: CLOPIDOGREL 75 MG TAB PO SCH (07:50)
[2022-07-14] MEDS: SERTRALINE 50 MG TAB PO SCH (07:50)
[2022-07-14] MEDS: CHOLECALCIFEROL 25 MCG (1000 IU) TABLET PO SCH (07:50)
[2022-07-14] MEDS: predniSONE 2.5 MG TAB PO SCH (09:35)
[2022-07-14] MEDS: methylPREDNISolone SOD SUCCI 40 MG/ML 1 ML VIAL IV SCH ×3 (09:41→23:49)
[2022-07-14] MEDS: AZITHROMYCIN 500 MG TAB PO SCH (09:43)
--- NOTE | 2022-07-14 12:11 | P.CNPUL ---
History of Present Illness Consult date: 07/14/22 Requesting physician: Ira Steinberg Reason for consult: dyspnea, COPD, pulmonary fibrosis, abnormal CXR/CT Chief complaint: Shortness of breath, cough, congestion History of present illness: This is a very pleasant 71-year-old male patient with a known history of hyperlipidemia, anxiety, rheumatoid arthritis, pulmonary fibrosis suspect secondary to the rheumatoid arthritis, chronic obstructive pulmonary disease from chronic tobacco dependence however he quit approximately 6 years ago. His FEV1 value is 46% of predicted. He's been maintained on Trelegy, albuterol nebulized treatments in the outpatient setting. He presented here to the emergency room earlier this week and wastreated for pneumonia. He presented here again yesterday with worsening shortness of breath, cough and congestion. He had also been discharged home from here on 06/30/2022 following a COPD exacerbation. Since that time he had fallen at home and broken his right shoulder. It is currently in a sling. Chest x-ray shows left perihilar density. Underlying mass not excluded. today's chest x-ray shows persistent interstitial prominence throughout both lung brown. Left perihilar infiltrate/mass persist and is unchanged. He is seen today in consultation on the regular medical floor. He is currently sitting up in bed. Awake and alert. He is dyspneic with conversation. Dyspneic with minimal exertion. He is quite frail. He has a large protruding umbilical hernia noted. She had been turned up to 10 L high flow nasal cannula with O2 saturations at 95%. Currently down to 8 L at 92%. We are accepting of 88% or higher based on his poor lung function. He is currently afebrile. Hemodynamically stable. He's been initiated on DuoNeb inhalations, Pulmicort and Perforomist inhalations, home prednisone dose at 2.5 mg daily antibiotics in the form of ceftriaxone and azithromycin. White count 13.8. Hemoglobin 11.6. Sodium 133. Potassium 4.2. BUN 19. Creatinine 0.57. Glucose 125. Mack virus by PCR not detected. Influenza screen negative. Pro-calcitonin pending. Review of Systems REVIEW OF SYSTEMS: CONSTITUTIONAL: Generalized weakness.Denies any recent significant weight loss or weight gain. EYES: Denies change in vision. EARS, NOSE, MOUTH, THROAT: Denies headaches, denies sore throat. CARDIOVASCULAR: Denies chest pain, palpitations or syncopal episodes. RESPIRATORY: Positive for shortness of breath, cough, congestion no hemoptysis. GASTROINTESTINAL: Denies change in appetite, denies abdominal pain GENITOURINARY: Denies hematuria, denies infections. MUSKULOSKELETAL: Right shoulder fracture, currently in a slingDenies pain, denies swelling. INTEGUMENTARY: Denies rash, denies eczema. NEUROLOGICAL: Denies recent memory loss, no recent seizure activity. PSYCHIATRIC: Denies anxiety, denies depression. HEMATOLOGIC/LYMPHATIC: Denies anemia, denies enlarged lymph nodes. Past Medical History Past Medical History: Heart Failure, COPD, Hyperlipidemia, Osteoarthritis (OA), Pneumonia, Rheumatoid Arthritis (RA), Sleep Apnea/CPAP/BIPAP Additional Past Medical History / Comment(s): COPD, chronic hypoxic respiratory failure previous history of pneumoperitoneum related to a perforated duodenal ulcer, repair of an umbilical hernia, chronic back pain, back stenosis, History of Any Multi-Drug Resistant Organisms: None Reported Past Surgical History: Orthopedic Surgery Additional Past Surgical History / Comment(s): colonoscopy, repair of a perforated duodenal ulcer and repair of an incarcerated umbilical hernia, left knee arthroscopy Past Anesthesia/Blood Transfusion Reactions: No Reported Reaction Past Psychological History: Anxiety, Depression Smoking Status: Former smoker Past Alcohol Use History: Daily Past Drug Use History: None Reported - Past Family History Father Family Medical History: Cancer Additional Family Medical History / Comment(s): Father of leukemia. Mother Family Medical History: Cancer, CVA/TIA, Dementia, Diabetes Mellitus Additional Family Medical History / Comment(s): Mother is 88yrs old with history of dementia and colon cancer. Sister(s) Additional Family Medical History / Comment(s): Patient 3 sons with no major medical problems. Medications and Allergies Home Medications Medication Instructions Recorded Confirmed Type Metoprolol Succinate [Toprol XL] 25 mg PO DAILY 01/12/20 07/13/22 History Sertraline [Zoloft] 150 mg PO DAILY 01/12/20 07/13/22 History Amitriptyline HCl [Elavil] 10 mg PO HS 12/06/20 07/13/22 History Clopidogrel [Plavix] 75 mg PO DAILY #14 tab 12/13/20 07/13/22 Rx Fluticasone Nasal [place] [Flonase 1 spr EA NOSTRIL BID PRN 07/10/21 07/13/22 History Nasal [place]] Alendronate Sodium [Fosamax] 70 mg PO MO 03/03/22 07/13/22 History Atorvastatin [Lipitor] 40 mg PO HS 03/03/22 07/13/22 History Omeprazole 40 mg PO DAILY 03/03/22 07/13/22 History predniSONE 2.5 mg PO DAILY 03/03/22 07/13/22 History Budesonide [Pulmicort] 0.5 mg INHALATION RT-BID 06/27/22 07/13/22 History Cholecalciferol (Vitamin D3) 75 mcg PO DAILY 07/13/22 07/13/22 History [Vitamin D3 (3000 Iu)] Docusate [Colace] 100 mg PO DAILY PRN 07/13/22 07/13/22 History L.acidoph,Paracasei, B.lactis 1 cap PO DAILY 07/13/22 07/13/22 History [Probiotic] Allergies Allergy/AdvReac Type Severity Reaction Status Date / Time amoxicillin AdvReac Nausea & Verified 07/13/22 16:08 Vomiting Physical Exam Vitals: Vital Signs Temp Pulse Pulse Resp BP BP Pulse Ox 07/14/22 11:26 104 H 07/14/22 11:18 92 L 07/14/22 11:15 104 H 07/14/22 09:18 95 07/14/22 08:00 97.6 F 67 18 102/62 07/14/22 07:43 108 H 07/14/22 07:36 85 L 07/14/22 07:25 107 H 07/14/22 02:00 97.8 F 19 117/69 90 L 07/13/22 20:00 97.9 F 100 19 96/57 90 L 07/13/22 19:06 94 18 07/13/22 18:58 95 20 07/13/22 17:20 98.1 F 92 17 91/55 90 L 07/13/22 16:55 98.2 F 80 20 112/69 90 L 07/13/22 15:46 90 18 07/13/22 15:38 87 18 07/13/22 15:32 94 L 07/13/22 15:28 90 20 07/13/22 14:39 94 07/13/22 13:22 98.4 F 99 20 105/64 90 L 07/13/22 13:20 20 FiO2 07/14/22 11:26 07/14/22 11:18 07/14/22 11:15 07/14/22 09:18 07/14/22 08:00 07/14/22 07:43 07/14/22 07:36 5 07/14/22 07:25 07/14/22 02:00 07/13/22 20:00 07/13/22 19:06 07/13/22 18:58 07/13/22 17:20 07/13/22 16:55 07/13/22 15:46 07/13/22 15:38 07/13/22 15:32 07/13/22 15:28 07/13/22 14:39 07/13/22 13:22 07/13/22 13:20 Intake and Output 07/13/22 07/14/22 07/14/22 22:59 06:59 14:59 Other: Voiding Method Toilet # Voids 3 GENERAL EXAM: Alert, very pleasant 71-year-old male, frail, cachectic, on 8 L high flow nasal cannula, fairly comfortable in no apparent distress. HEAD: Normocephalic. EYES: Normal reaction of pupils, equal size. NOSE: Clear with pink turbinates. THROAT: No erythema or exudates. NECK: No masses, no JVD. CHEST: No chest wall deformity. LUNGS: Equal air entry with coarse crackles in the posterior bases. CVS: S1 and S2 normal with no audible murmur, regular rhythm. ABDOMEN: Large protruding umbilical hernia.No hepatosplenomegaly, normal bowel s ounds, no guarding or rigidity. SPINE: No scoliosis or deformity SKIN: No rashes CENTRAL NERVOUS SYSTEM: No focal deficits, tone is normal in all 4 extremities. EXTREMITIES: Fracture right shoulder currently in a sling. Changes of rheumatoid arthritis. There is no peripheral edema. Results - Laboratory Findings CBC and BMP: 07/13/22 13:35 07/13/22 13:35 PT/INR, D-dimer PT 10.6 sec (9.0-12.0) 07/13/22 13:35 INR 1.0 (<1.2) 07/13/22 13:35 Abnormal lab findings: Abnormal Labs 07/13/22 07/13/22 13:35 13:35 WBC 13.8 H RBC 3.86 L Hgb 11.6 L Hct 36.2 L RDW 16.2 H Neutrophils # 12.2 H Lymphocytes # 0.7 L Sodium 133 L Creatinine 0.57 L Glucose 125 H Calcium 7.8 L Total Protein 5.9 L Albumin 3.2 L - Diagnostic Findings Chest x-ray: image reviewed Assessment and Plan Assessment: Acute on chronic hypoxemic respiratory failure, secondary to COPD exacerbation, and complicated by left-sided pneumonia. Chronic left upper lobe infiltrate/mass. Could not rule out neoplasm however the patient is to frail for any intervention or biopsies History of severe oxygen-dependent, steroid dependent COPD. Pulmonary fibrosis, suspect secondary to rheumatoid arthritis. Recent fall with fracture to the right upper extremity. History of CHF. History of hyperlipidemia. History of osteoarthritis. History of rheumatoid arthritis. History of sleep apnea syndrome, maintained on CPAP. History of perforated duodenal ulcer. History of anxiety/depression. Previous history of heavy tobacco use. Plan: The patient was seen and evaluated Chest x-ray, labs and medications reviewed Can not rule out neoplasm in the left upper lobe however he is too frail for any intervention Could possibly be worked up with a PET scan in the outpatient setting Continue antibiotics for now Discontinue prednisone, add IV Solu-Medrol Continue bronchodilators The patient is a DO NOT RESUSCITATE/DO NOT INTUBATE CODE STATUS per his request We will continue to follow and make further recommendations based on his clinical status I have personally seen and examined the patient, performed the documentation and the assessment and plan as written. Number of minutes spent on the visit: 20.
[2022-07-14] MEDS: FORMOTEROL FUMARATE 20 MCG/2 ML NEBU INHALATION SCH (20:43)
[2022-07-14] MEDS: BUDESONIDE 1 MG/2 ML NEBU INHALATION SCH (20:43)
[2022-07-14] MEDS: ATORVASTATIN 40 MG TAB PO SCH (20:57)
[2022-07-14] MEDS: AMITRIPTYLINE HCL 10 MG TAB PO SCH (20:57)
--- NOTE | 2022-07-14 21:31 | P.HPIM ---
History of Present Illness H&P Date: 07/13/22 Chief Complaint: Shortness of breath Patient is a 71-year-old male with a known history of COPD on home oxygen, osteoarthritis, hyperlipidemia, rheumatoid arthritis, obstructive sleep apnea, chronic back pain and anxiety/depression prior history of smoking presents to ER with complaints of worsening shortness of breath. Patient was desaturating at home and oxygen on turn up to 10 L at home. Patient has been having cough but unable to bring out any sputum. Patient has Poor functional status. Patient was recently discharged from the hospital on 06/30/2022. Patient was treated for acute COPD exacerbation and pneumonia and was discharged home on Omnicef and azithromycin. Patient states that he fell on Saturday and fractured his right proximal humerus and was placed on sling while in the ER. Patient has been having worsening shortness of breath and pain and came to ER. Chest x-ray showed persistent interstitial Prominence throughout both lungs. Left perihilar infiltrate or mass persists unchanged. Correlate clinically and progress studies recommended. EKG showed sinus rhythm. Laboratory pressure WBC 13.8 hemoglobin 11.6 and platelets 252 Sodium 133 potassium 4.2 chloride 98 bicarb is 30 BUN 19 and creatinine 0.57 and albumin 3.2 Coronavirus PCR not detected. Review of Systems Constitutional: Patient denies any fever or chills . Patient does have generalized weakness. Abdomen: Patient denied any nausea or vomiting or abd. pain Cardiovascular: Patient denies any chest pain or short of breath no palpitations. Respiratory: Patient does have cough with whitish sputum production and shortness of breath Neurologic: Patient denied any numbness or tingling headache. Musculoskeletal: Patient denies any complaints of joint swelling or deformity. Skin: Negative Psychiatric: Negative Endocrine: No heat or cold intolerance. No recent weight gain. Genitourinary: No dysuria or hematuria. All other 14 point ROS negative except the above Past Medical History Past Medical History: Heart Failure, COPD, Hyperlipidemia, Osteoarthritis (OA), Pneumonia, Rheumatoid Arthritis (RA), Sleep Apnea/CPAP/BIPAP Additional Past Medical History / Comment(s): COPD, chronic hypoxic respiratory failure previous history of pneumoperitoneum related to a perforated duodenal ulcer, repair of an umbilical hernia, chronic back pain, back stenosis, History of Any Multi-Drug Resistant Organisms: None Reported Past Surgical History: Orthopedic Surgery Additional Past Surgical History / Comment(s): colonoscopy, repair of a perforated duodenal ulcer and repair of an incarcerated umbilical hernia, left knee arthroscopy Past Anesthesia/Blood Transfusion Reactions: No Reported Reaction Past Psychological History: Anxiety, Depression Smoking Status: Former smoker Past Alcohol Use History: Daily Past Drug Use History: None Reported - Past Family History Father Family Medical History: Cancer Additional Family Medical History / Comment(s): Father of leukemia. Mother Family Medical History: Cancer, CVA/TIA, Dementia, Diabetes Mellitus Additional Family Medical History / Comment(s): Mother is 88yrs old with history of dementia and colon cancer. Sister(s) Additional Family Medical History / Comment(s): Patient 3 sons with no major medical problems. Medications and Allergies Home Medications Medication Instructions Recorded Confirmed Type Metoprolol Succinate [Toprol XL] 25 mg PO DAILY 01/12/20 07/13/22 History Sertraline [Zoloft] 150 mg PO DAILY 01/12/20 07/13/22 History Amitriptyline HCl [Elavil] 10 mg PO HS 12/06/20 07/13/22 History Clopidogrel [Plavix] 75 mg PO DAILY #14 tab 12/13/20 07/13/22 Rx Fluticasone Nasal [place] [Flonase 1 spr EA NOSTRIL BID PRN 07/10/21 07/13/22 History Nasal [place]] Alendronate Sodium [Fosamax] 70 mg PO MO 03/03/22 07/13/22 History Atorvastatin [Lipitor] 40 mg PO HS 03/03/22 07/13/22 History Omeprazole 40 mg PO DAILY 03/03/22 07/13/22 History predniSONE 2.5 mg PO DAILY 03/03/22 07/13/22 History Budesonide [Pulmicort] 0.5 mg INHALATION RT-BID 06/27/22 07/13/22 History Cholecalciferol (Vitamin D3) 75 mcg PO DAILY 07/13/22 07/13/22 History [Vitamin D3 (3000 Iu)] Docusate [Colace] 100 mg PO DAILY PRN 07/13/22 07/13/22 History L.acidoph,Paracasei, B.lactis 1 cap PO DAILY 07/13/22 07/13/22 History [Probiotic] Allergies Allergy/AdvReac Type Severity Reaction Status Date / Time amoxicillin AdvReac Nausea & Verified 07/13/22 16:08 Vomiting Physical Exam Vitals: Vital Signs Temp Pulse Pulse Resp BP Pulse Ox 07/13/22 14:39 94 07/13/22 13:22 98.4 F 99 20 105/64 90 L 07/13/22 13:20 20 Intake and Output 07/13/22 07/13/22 07/13/22 06:59 14:59 22:59 Other: Weight 56.109 kg PHYSICAL EXAMINATION: Patient is lying in the bed comfortably, no acute distress, awake alert and oriented.. Frail looking. HEENT: Normocephalic. Neck is supple. Pupils reactive. Nostrils clear. Oral cavity is moist. Neck reveals no JVD, carotid bruits, or thyromegaly. CHEST EXAMINATION: Trachea is central. Symmetrical expansion. Bilateral diffuse coarse sounds and rhonchi.. CARDIAC: Normal S1, S2 with no gallops. No murmurs ABDOMEN: Soft. Bowel sounds present. Nontender. No organomegaly. No abdominal bruits. Extremities: reveal no edema. No clubbing or cyanosis Right humerus sling in place. Neurologically awake, alert, oriented x3 with well-coordinated movements. No focal deficits noted Skin: No rash or skin lesions. Psychiatric: Coperative. Nonsuicidal, Musculoskeletal: No joint swelling or deformity. Normal range of motion. Results CBC & Chem 7: 07/13/22 13:35 07/13/22 13:35 Labs: Abnormal Lab Results - Last 24 Hours (Table) 07/13/22 07/13/22 Range/Units 13:35 13:35 WBC 13.8 H (3.8-10.6) k/uL RBC 3.86 L (4.30-5.90) m/uL Hgb 11.6 L (13.0-17.5) gm/dL Hct 36.2 L (39.0-53.0) % RDW 16.2 H (11.5-15.5) % Neutrophils # 12.2 H (1.3-7.7) k/uL Lymphocytes # 0.7 L (1.0-4.8) k/uL Sodium 133 L (137-145) mmol/L Creatinine 0.57 L (0.66-1.25) mg/dL Glucose 125 H (74-99) mg/dL Calcium 7.8 L (8.4-10.2) mg/dL Total Protein 5.9 L (6.3-8.2) g/dL Albumin 3.2 L (3.5-5.0) g/dL Thrombosis Risk Factor Assmnt - DVT/VTE Prophylaxis DVT/VTE Prophylaxis: Pharmacologic Prophylaxis ordered Assessment and Plan Assessment: Acute on chronic hypoxic respiratory failure secondary to COPD exacerbation Pneumonia with persistent interstitial prominence of both legs and left perihilar filtrate. Underlying mass cannot be excluded. Chronic hypoxic aspiratory secondary COPD on home oxygen at 4 L via nasal cannula. Pulmonary fibrosis History of rheumatoid arthritis Obstructive sleep apnea on CPAP at home Osteoarthritis Hyperlipidemia Anxiety/depression Chronic CHF with preserved ejection fraction Prior history of smoking DVT prophylaxis with heparin subcu Plan: Patient will be continued on oxygen supplementation and IV steroids, Solu-Medrol 60 every 6 hourly. Continues with the duo nebs. Continue with antibiotics in the form of ceftriaxone azithromycin. Current home medications and follow-up closely. Pulmonary was consulted. Prognosis guarded at this time. Time with Patient: Greater than 30
--- NOTE | 2022-07-14 21:33 | P.PN ---
Subjective Progress Note Date: 07/14/22 Patient is a 71-year-old male with a known history of COPD on home oxygen, osteoarthritis, hyperlipidemia, rheumatoid arthritis, obstructive sleep apnea, chronic back pain and anxiety/depression prior history of smoking presents to ER with complaints of worsening shortness of breath. Patient was desaturating at home and oxygen on turn up to 10 L at home. Patient has been having cough but unable to bring out any sputum. Patient has Poor functional status. Patient was recently discharged from the hospital on 06/30/2022. Patient was treated for acute COPD exacerbation and pneumonia and was discharged home on Omnicef and azithromycin. Patient states that he fell on Saturday and fractured his right proximal humerus and was placed on sling while in the ER. Patient has been having worsening shortness of breath and pain and came to ER. Chest x-ray showed persistent interstitial Prominence throughout both lungs. Left perihilar infiltrate or mass persists unchanged. Correlate clinically and progress studies recommended. EKG showed sinus rhythm. Laboratory pressure WBC 13.8 hemoglobin 11.6 and platelets 252 Sodium 133 potassium 4.2 chloride 98 bicarb is 30 BUN 19 and creatinine 0.57 and albumin 3.2 Coronavirus PCR not detected. 07/14/2022 Patient is currently lying in bed. Awake alert and oriented. Still having shortness of breath but improved clinically. Cough with whitish sputum production. Patient has been afebrile. Currently requiring oxygen at 8 L via nasal cannula. No nausea vomiting abdominal pain or diarrhea. Right humerus sling in place and pain is fairly controlled. No chest pain. No headache or dizziness or lightheadedness. Patient was seen by pulmonary. Continue on steroids changed to IV. Patient is also on antibiotics at home Mutamycin ceftriaxone. Current medications reviewed. Objective - Vital Signs Vital signs: Vital Signs Temp 97.6 F 07/14/22 14:00 Pulse 109 H 07/14/22 21:05 Resp 20 07/14/22 14:00 BP 103/62 07/14/22 14:00 Pulse Ox 90 L 07/14/22 14:00 FiO2 5 07/14/22 07:36 Intake & Output 07/14/22 07/14/22 07/15/22 06:59 18:59 06:59 Other: Voiding Method Toilet # Voids 3 2 - Exam PHYSICAL EXAMINATION: Patient is lying in the bed comfortably, no acute distress, awake alert and oriented.. Frail looking. HEENT: Normocephalic. Neck is supple. Pupils reactive. Nostrils clear. Oral cavity is moist. Neck reveals no JVD, carotid bruits, or thyromegaly. CHEST EXAMINATION: Trachea is central. Symmetrical expansion. Bilateral diffuse coarse sounds and rhonchi.. CARDIAC: Normal S1, S2 with no gallops. No murmurs ABDOMEN: Soft. Bowel sounds present. Nontender. No organomegaly. No abdominal bruits. Extremities: reveal no edema. No clubbing or cyanosis Right humerus sling in place. Neurologically awake, alert, oriented x3 with well-coordinated movements. No f ocal deficits noted Skin: No rash or skin lesions. Psychiatric: Coperative. Nonsuicidal, Musculoskeletal: No joint swelling or deformity. Normal range of motion. - Labs CBC & Chem 7: 07/13/22 13:35 07/13/22 13:35 Labs: Abnormal Lab Results - Last 24 Hours (Table) 07/13/22 Range/Units 13:35 Procalcitonin 0.12 H (0.02-0.09) ng/mL Microbiology - Last 24 Hours (Table) 07/13/22 13:30 Blood Culture - Preliminary Blood No Growth after 24 hours 07/13/22 13:45 Blood Culture - Preliminary Blood No Growth after 24 hours Assessment and Plan Assessment: Acute on chronic hypoxic respiratory failure secondary to COPD exacerbation Pneumonia with persistent interstitial prominence of both legs and left perihilar filtrate. Underlying mass cannot be excluded. Chronic hypoxic aspiratory secondary COPD on home oxygen at 4 L via nasal cannula. Pulmonary fibrosis History of rheumatoid arthritis Obstructive sleep apnea on CPAP at home Osteoarthritis Hyperlipidemia Anxiety/depression Chronic CHF with preserved ejection fraction Prior history of smoking DVT prophylaxis with heparin subcu Plan: Patient will be continued on oxygen supplementation and IV steroids changed to Solu-Medrol 40 every 8 hourly. Continues with the duo nebs. Continue with antibiotics in the form of ceftriaxone azithromycin. Current home medications and follow-up closely. Pulmonary is on board. Prognosis guarded at this time. Time with Patient: Greater than 30
[2022-07-15] MEDS: PANTOPRAZOLE 40 MG TABLET PO SCH (06:22)
[2022-07-15] MEDS: HYDROcodone/APAP 7.5-325MG 1 EACH TAB PO PRN ×2 (06:22→17:17)
[2022-07-15] MEDS: METOPROLOL SUCCINATE (ER) 25 MG TAB.ER.24H PO SCH (07:28)
[2022-07-15] MEDS: AZITHROMYCIN 500 MG TAB PO SCH (07:28)
[2022-07-15] MEDS: CHOLECALCIFEROL 25 MCG (1000 IU) TABLET PO SCH (07:28)
[2022-07-15] MEDS: CLOPIDOGREL 75 MG TAB PO SCH (07:28)
[2022-07-15] MEDS: SERTRALINE 50 MG TAB PO SCH (07:28)
[2022-07-15] MEDS: IPRATROPIUM-ALBUTEROL 3 ML NEB INHALATION SCH ×4 (07:54→21:14)
[2022-07-15] MEDS: FORMOTEROL FUMARATE 20 MCG/2 ML NEBU INHALATION SCH ×2 (07:54→21:14)
[2022-07-15] MEDS: BUDESONIDE 1 MG/2 ML NEBU INHALATION SCH ×2 (07:54→21:14)
[2022-07-15] MEDS: methylPREDNISolone SOD SUCCI 40 MG/ML 1 ML VIAL IV SCH ×2 (09:00→15:00)
[2022-07-15 09:27] LABS: Basophils # (A) 0.01 X 10*3/uL (0.00-0.10); Basophils % (A) 0.1 %; Eosinophils # (A) 0 X 10*3/uL (0.04-0.35); Eosinophils % (A) 0 %; HCT 30.9 % (39.6-50.0); HGB 9.5 g/dL (13.0-17.0); Immature Grans, Automated 0.7 %; Lymphocytes # (A) 0.61 X 10*3/uL (0.90-5.00); Lymphocytes % (A) 6.6 %; MCH 29.3 pg (27.0-32.0); MCHC 30.7 g/dL (32.0-37.0); MCV 95.4 fL (80.0-97.0); Monocytes # (A) 0.33 X 10*3/uL (0.20-1.00); Monocytes % (A) 3.6 %; NRBC Per 100 WBC 0 /100 WBCS (0.0-0.0); Neutrophils # (A) 8.22 X 10*3/uL (1.80-7.70); Platelet Count 285 X 10*3/uL (140-440); RBC 3.24 X 10*6/uL (4.40-5.60); RDW 16.7 % (11.5-14.5); WBC 9.23 X 10*3/uL (4.50-10.00)
[2022-07-15 09:34] LABS: African American GFR (CKD) 125.5 (60.0-200.0); Anion Gap 7.1 mmol/L (10.00-18.00); BUN/Creat Ratio 33.4 Ratio (12.00-20.00); Blood Urea Nitrogen 16.7 mg/dL (9.0-27.0); Calcium 8.6 mg/dL (8.7-10.3); Carbon Dioxide 31.9 mmol/L (20.0-27.5); Non-African American GFR(CKD) 108.3 (60.0-200.0); Potassium 4.8 mmol/L (3.5-5.5)
--- NOTE | 2022-07-15 12:43 | P.PN ---
Subjective Progress Note Date: 07/15/22 Principal diagnosis: Acute on chronic hypoxic or sores failure secondary to acute exacerbation of COPD and worsening pulmonary fibrosis. Possible underlying pneumonia. This is a very pleasant 71-year-old male patient with a known history of hyperlipidemia, anxiety, rheumatoid arthritis, pulmonary fibrosis suspect secondary to the rheumatoid arthritis, chronic obstructive pulmonary disease from chronic tobacco dependence however he quit approximately 6 years ago. His FEV1 value is 46% of predicted. He's been maintained on Trelegy, albuterol nebulized treatments in the outpatient setting. He presented here to the emergency room earlier this week and wastreated for pneumonia. He presented here again yesterday with worsening shortness of breath, cough and congestion. He had also been discharged home from here on 06/30/2022 following a COPD exacerbation. Since that time he had fallen at home and broken his right shoulder. It is currently in a sling. Chest x-ray shows left perihilar density. Underlying mass not excluded. today's chest x-ray shows persistent interstitial prominence throughout both lung brown. Left perihilar infiltrate/mass persist and is unchanged. He is seen today in consultation on the regular medical floor. He is currently sitting up in bed. Awake and alert. He is dyspneic with conversation. Dyspneic with minimal exertion. He is quite frail. He has a large protruding umbilical hernia noted. She had been turned up to 10 L high flow nasal cannula with O2 saturations at 95%. Currently down to 8 L at 92%. We are accepting of 88% or higher based on his poor lung function. He is currently afebrile. Hemodynamically stable. He's been initiated on DuoNeb inhalations, Pulmicort and Perforomist inhalations, home prednisone dose at 2.5 mg daily antibiotics in the form of ceftriaxone and azithromycin. White count 13.8. Hemoglobin 11.6. Sodium 133. Potassium 4.2. BUN 19. Creatinine 0.57. Glucose 125. Mack virus by PCR not detected. Influenza screen negative. Pro-calcitonin pending. Reevaluated today on 07/15/22, patient is feeling better, however he is still requiring 7 L of oxygen via nasal cannula, O2 saturation is fluctuating anywhere between 85% up to 98%. Clinically however the patient is feeling better, breathing a lot easier. WBC count is 9.2 hemoglobin is 9.5. Electrolytes are normal. Renal profile is normal. Pro-calcitonin level was minimally increased at 0.12, doubt clinical significance of pro-calcitonin level of 0.12. Objective - Vital Signs Vital signs: Vital Signs Temp 97.9 F 07/15/22 07:50 Pulse 104 H 07/15/22 11:53 Resp 16 07/15/22 07:50 BP 104/53 07/15/22 07:50 Pulse Ox 89 L 07/15/22 07:54 FiO2 5 07/14/22 07:36 Intake & Output 07/14/22 07/15/22 07/15/22 18:59 06:59 18:59 Intake Total 50 Output Total 150 Balance -150 50 Intake: Intake, IV Titration 50 Amount cefTRIAXone 2 gm In 50 Sodium Chloride 0.9% 50 ml @ 100 mls/hr IVPB Q24H [facility] Rx#:[id number] Output: Urine 150 Other: Voiding Method External Catheter # Voids 2 2 - Exam GENERAL EXAM: Alert, very pleasant 71-year-old male, frail, cachectic, on 7 L high flow nasal cannula. HEAD: Normocephalic. EENT: PERRLA, EOMI, nonicteric, no neck masses no JVD. CHEST: No chest wall deformity. LUNGS: Equal air entry with coarse crackles in the posterior bases. CVS: S1 and S2 normal with no audible murmur, regular rhythm. ABDOMEN: Large protruding umbilical hernia.otherwise unremarkable. SKIN: No rashes CENTRAL NERVOUS SYSTEM: Alert oriented 3 no gross focal deficits. Psychiatric: Normal mood affect and normal mental status examination. EXTREMITIES: Fracture right shoulder currently in a sling. Patient had fracture of right humerus, rheumatoid deformities noted in hands. - Labs CBC & Chem 7: 07/15/22 03:48 07/15/22 03:48 Labs: Abnormal Lab Results - Last 24 Hours (Table) 07/13/22 07/15/22 07/15/22 Range/Units 13:35 03:48 03:48 RBC 3.24 L (4.40-5.60) X 10*6/uL Hgb 9.5 L (13.0-17.0) g/dL Hct 30.9 L (39.6-50.0) % MCHC 30.7 L (32.0-37.0) g/dL RDW 16.7 H (11.5-14.5) % Immature Gran # 0.06 H (0.00-0.04) X 10*3/uL Neutrophils # 8.22 H (1.80-7.70) X 10*3/uL Lymphocytes # 0.61 L (0.90-5.00) X 10*3/uL Eosinophils # 0 L (0.04-0.35) X 10*3/uL Carbon Dioxide 31.9 H (20.0-27.5) mmol/L Anion Gap 7.10 L (10.00-18.00) mmol/L Creatinine 0.5 L (0.6-1.5) mg/dL BUN/Creatinine Ratio 33.40 H (12.00-20.00) Ratio Glucose 126 H (70-110) mg/dL Calcium 8.6 L (8.7-10.3) mg/dL Procalcitonin 0.12 H (0.02-0.09) ng/mL Microbiology - Last 24 Hours (Table) 07/13/22 13:30 Blood Culture - Preliminary Blood No Growth after 24 hours 07/13/22 13:45 Blood Culture - Preliminary Blood No Growth after 24 hours Assessment and Plan Assessment: Acute on chronic hypoxemic respiratory failure, secondary to COPD exacerbation, possible pneumonia involving left upper lobe Chronic left upper lobe infiltrate/mass. Could not rule out neoplasm however the patient is to frail for any intervention or biopsies History of severe oxygen-dependent, steroid dependent COPD. Pulmonary fibrosis, suspect secondary to rheumatoid arthritis. Recent fall with fracture to the right upper extremity. History of CHF. History of hyperlipidemia. History of osteoarthritis. History of rheumatoid arthritis. History of sleep apnea syndrome, maintained on CPAP. History of perforated duodenal ulcer. History of anxiety/depression. Previous history of heavy tobacco use. Recommendation: Continue to titrate oxygen as tolerated. Continue bronchodilators. Continue IV Solu-Medrol. Patient is not a candidate for any surgical intervention to evaluate the abnormality in his left upper lobe. We'll continue to follow. Time with Patient: Less than 30
[2022-07-15] MEDS: ATORVASTATIN 40 MG TAB PO SCH (21:41)
[2022-07-15] MEDS: AMITRIPTYLINE HCL 10 MG TAB PO SCH (21:41)
[2022-07-16] MEDS: methylPREDNISolone SOD SUCCI 40 MG/ML 1 ML VIAL IV SCH ×4 (00:30→23:30)
--- NOTE | 2022-07-16 00:55 | P.PN ---
Subjective Progress Note Date: 07/15/22 Patient is a 71-year-old male with a known history of COPD on home oxygen, osteoarthritis, hyperlipidemia, rheumatoid arthritis, obstructive sleep apnea, chronic back pain and anxiety/depression prior history of smoking presents to ER with complaints of worsening shortness of breath. Patient was desaturating at home and oxygen on turn up to 10 L at home. Patient has been having cough but unable to bring out any sputum. Patient has Poor functional status. Patient was recently discharged from the hospital on 06/30/2022. Patient was treated for acute COPD exacerbation and pneumonia and was discharged home on Omnicef and azithromycin. Patient states that he fell on Saturday and fractured his right proximal humerus and was placed on sling while in the ER. Patient has been having worsening shortness of breath and pain and came to ER. Chest x-ray showed persistent interstitial Prominence throughout both lungs. Left perihilar infiltrate or mass persists unchanged. Correlate clinically and progress studies recommended. EKG showed sinus rhythm. Laboratory pressure WBC 13.8 hemoglobin 11.6 and platelets 252 Sodium 133 potassium 4.2 chloride 98 bicarb is 30 BUN 19 and creatinine 0.57 and albumin 3.2 Coronavirus PCR not detected. 07/14/2022 Patient is currently lying in bed. Awake alert and oriented. Still having shortness of breath but improved clinically. Cough with whitish sputum production. Patient has been afebrile. Currently requiring oxygen at 8 L via nasal cannula. No nausea vomiting abdominal pain or diarrhea. Right humerus sling in place and pain is fairly controlled. No chest pain. No headache or dizziness or lightheadedness. Patient was seen by pulmonary. Continue on steroids changed to IV. Patient is also on antibiotics azithro. ceftriaxone. 07/15/2022 Patient is currently lying in bed. Awake alert and oriented. Breathing status is better. Currently requiring 7 L oxygen via nasal cannula. No complaints of worsening shortness of breath. Cough without any sputum production. No headache or dizziness lightheadedness. No complaints of right shoulder pain. Sling in place. Patient has been afebrile. Laboratory data showed WBC 9.23 hemoglobin 9.4 and platelets 285 Sodium 140 potassium 4.8 chloride 101 bicarb is 31.9 BUN 16.7 creatinine 0.5. Calcium 8.6. Patient is being continued on antibiotics at home of ceftriaxone. IV steroids and duo nebs. Pulmonary is on board. Current medications reviewed. Objective - Vital Signs Vital signs: Vital Signs Temp 98.3 F 07/15/22 14:00 Pulse 108 H 07/15/22 15:38 Resp 20 07/15/22 14:00 BP 108/64 07/15/22 14:00 Pulse Ox 88 L 07/15/22 14:00 FiO2 5 07/14/22 07:36 Intake & Output 07/14/22 07/15/22 07/15/22 18:59 06:59 18:59 Intake Total 50 Output Total 150 Balance -150 50 Intake: Intake, IV Titration 50 Amount cefTRIAXone 2 gm In 50 Sodium Chloride 0.9% 50 ml @ 100 mls/hr IVPB Q24H [facility] Rx#:[id number] Output: Urine 150 Other: Voiding Method External Catheter # Voids 2 2 - Exam PHYSICAL EXAMINATION: Patient is lying in the bed comfortably, no acute distress, awake alert and oriented.. Frail looking. HEENT: Normocephalic. Neck is supple. Pupils reactive. Nostrils clear. Oral cavity is moist. Neck reveals no JVD, carotid bruits, or thyromegaly. CHEST EXAMINATION: Trachea is central. Symmetrical expansion. Bilateral diffuse coarse sounds and rhonchi.. CARDIAC: Normal S1, S2 with no gallops. No murmurs ABDOMEN: Soft. Bowel sounds present. Nontender. No organomegaly. No abdominal bruits. Extremities: reveal no edema. No clubbing or cyanosis Right humerus sling in place. Neurologically awake, alert, oriented x3 with well-coordinated movements. No focal deficits noted Skin: No rash or skin lesions. Psychiatric: Coperative. Nonsuicidal, Musculoskeletal: No joint swelling or deformity. Normal range of motion. - Labs CBC & Chem 7: 07/15/22 03:48 07/15/22 03:48 Labs: Abnormal Lab Results - Last 24 Hours (Table) 07/13/22 07/15/22 07/15/22 Range/Units 13:35 03:48 03:48 RBC 3.24 L (4.40-5.60) X 10*6/uL Hgb 9.5 L (13.0-17.0) g/dL Hct 30.9 L (39.6-50.0) % MCHC 30.7 L (32.0-37.0) g/dL RDW 16.7 H (11.5-14.5) % Immature Gran # 0.06 H (0.00-0.04) X 10*3/uL Neutrophils # 8.22 H (1.80-7.70) X 10*3/uL Lymphocytes # 0.61 L (0.90-5.00) X 10*3/uL Eosinophils # 0 L (0.04-0.35) X 10*3/uL Carbon Dioxide 31.9 H (20.0-27.5) mmol/L Anion Gap 7.10 L (10.00-18.00) mmol/L Creatinine 0.5 L (0.6-1.5) mg/dL BUN/Creatinine Ratio 33.40 H (12.00-20.00) Ratio Glucose 126 H (70-110) mg/dL Calcium 8.6 L (8.7-10.3) mg/dL Procalcitonin 0.12 H (0.02-0.09) ng/mL Microbiology - Last 24 Hours (Table) 07/13/22 13:45 Blood Culture - Preliminary Blood No Growth after 48 hours 07/13/22 13:30 Blood Culture - Preliminary Blood No Growth after 48 hours Assessment and Plan Assessment: Acute on chronic hypoxic respiratory failure secondary to COPD exacerbation Pneumonia with persistent interstitial prominence of both legs and left perihilar filtrate. Underlying mass cannot be excluded. Chronic hypoxic aspiratory secondary COPD on home oxygen at 4 L via nasal cannula. Pulmonary fibrosis History of rheumatoid arthritis Obstructive sleep apnea on CPAP at home Osteoarthritis Hyperlipidemia Anxiety/depression Chronic CHF with preserved ejection fraction Prior history of smoking DVT prophylaxis with heparin subcu Plan: Patient will be continued on oxygen supplementation and IV steroids changed to Solu-Medrol 40 every 8 hourly. Continues with the duo nebs. Continue with antibiotics in the form of ceftriaxone. Current home medications and follow-up closely. Pulmonary is on board. Prognosis guarded at this time. Time with Patient: Greater than 30
[2022-07-16] MEDS: HYDROcodone/APAP 7.5-325MG 1 EACH TAB PO PRN ×3 (01:04→21:58)
[2022-07-16] MEDS: PANTOPRAZOLE 40 MG TABLET PO SCH (06:32)
[2022-07-16] MEDS: CHOLECALCIFEROL 25 MCG (1000 IU) TABLET PO SCH (08:56)
[2022-07-16] MEDS: SERTRALINE 50 MG TAB PO SCH (08:56)
[2022-07-16] MEDS: METOPROLOL SUCCINATE (ER) 25 MG TAB.ER.24H PO SCH (08:57)
[2022-07-16] MEDS: CLOPIDOGREL 75 MG TAB PO SCH (08:57)
[2022-07-16] MEDS: FORMOTEROL FUMARATE 20 MCG/2 ML NEBU INHALATION SCH ×2 (09:22→19:51)
[2022-07-16] MEDS: BUDESONIDE 1 MG/2 ML NEBU INHALATION SCH ×2 (09:22→19:51)
[2022-07-16] MEDS: IPRATROPIUM-ALBUTEROL 3 ML NEB INHALATION SCH ×4 (09:23→19:51)
--- NOTE | 2022-07-16 10:09 | CDI ---
Documentation Clarification Form Date: 07/16/2022 09:43:34 AM From: Joanne Martin Phone: Admit Date: 07/13/2022 02:36:00 PM Patient Name: Lex Pierce Visit Number: [id number] Discharge Date: ATTENTION: The Clinical Documentation Specialists (CDI) and [facility] Coding Staff appreciate your assistance in clarifying documentation. Please respond to the clarification below the line at the bottom and electronically sign. The CDI & [facility] Coding staff will review the response and follow-up if needed. Please note: Queries are made part of the Legal Health Record. If you have any questions, please contact the author of this message via ITS. Dr. Ira Steinberg The patient presented with the following clinical indicators. Additional clarification regarding the etiology/cause of the clinical indicators is requested. History/Risk Factors: COPD, Pneumonia, CHF, Rheumatoid Arthritis, Sleep Apnea, Chronic hypoxic respiratory failure Clinical Indicators: 71-year-old male diagnosed with pneumonia 3 days ago. Patient feels his symptoms have worsened since that time. He has a productive cough. No fever. At 14:35 ER Reevaluation has documented patient meets sepsis criteria. 07/13 WBC: 13.8, Lactic acid: 1.0, 07/13 Vital signs: [id number] 99 20 98.4 90 % 5/L NC 07/13 (17:20) 91/55 92 17 98.1 90% 5L NC 07/13 Blood cultures: Pending, No growth after 48 hours Treatment Rocephin 2 gm IVPB Q 24 HRS 07/13, then per orders .9NS @ 100 Mls/hr07/13-07/14 Solu-Medrol 40 MG IV Q 8 HRS, then taper per orders Pulmicort 0.5 mg inhalation BID Zithromycin 500 MG IVPB once, then PO daily dc 07/15 In your professional opinion, please clarify if these findings signify one of the following conditions: [ ] Sepsis POA, Ruled in [ x ] Sepsis ruled out [ ] Other, please specify [ ] Unable to determine SIRS Criteria: 2 or more of the following may indicate SIRS -Temperature < 96.8F (36C) or > 101.0F (38.3C) -Heart Rate > 90 bpm -Respiratory Rate > 20 breaths/min or PaCO2 < 32 mmHg -White Blood Cell Count > 12,000 or < 4,000 cells/mm3 or > 10% bands (Template Last Reviewed: October 2020) MTDD
[2022-07-16 10:31] LABS: Basophils # (A) 0.01 X 10*3/uL (0.00-0.10); Basophils % (A) 0.1 %; Eosinophils # (A) 0 X 10*3/uL (0.04-0.35); Eosinophils % (A) 0 %; HCT 30.4 % (39.6-50.0); HGB 9.4 g/dL (13.0-17.0); Immature Grans, Automated 0.7 %; Lymphocytes # (A) 0.86 X 10*3/uL (0.90-5.00); MCH 29.2 pg (27.0-32.0); MCHC 30.9 g/dL (32.0-37.0); MCV 94.4 fL (80.0-97.0); Mean Platelet Volume 9.9 fL (9.5-12.2); Monocytes # (A) 0.47 X 10*3/uL (0.20-1.00); Monocytes % (A) 4.4 %; NRBC Per 100 WBC 0 /100 WBCS (0.0-0.0); Neutrophils # (A) 9.35 X 10*3/uL (1.80-7.70); Neutrophils % (A) 86.8 %; Platelet Count 297 X 10*3/uL (140-440); RBC 3.22 X 10*6/uL (4.40-5.60); WBC 10.76 X 10*3/uL (4.50-10.00)
[2022-07-16 10:45] LABS: African American GFR (CKD) 125.5 (60.0-200.0); Anion Gap 7.5 mmol/L (10.00-18.00); Calcium 8.6 mg/dL (8.7-10.3); Carbon Dioxide 31.5 mmol/L (20.0-27.5); Non-African American GFR(CKD) 108.3 (60.0-200.0); Potassium 4.7 mmol/L (3.5-5.5)
--- NOTE | 2022-07-16 13:22 | P.PN ---
Subjective Patient is a 71-year-old male with a known history of COPD on home oxygen, osteoarthritis, hyperlipidemia, rheumatoid arthritis, obstructive sleep apnea, chronic back pain and anxiety/depression prior history of smoking presents to ER with complaints of worsening shortness of breath. Patient was desaturating at home and oxygen on turn up to 10 L at home. Patient has been having cough but unable to bring out any sputum. Patient has Poor functional status. Patient was recently discharged from the hospital on 06/30/2022. Patient was treated for acute COPD exacerbation and pneumonia and was discharged home on Omnicef and azithromycin. Patient states that he fell on Saturday and fractured his right proximal humerus and was placed on sling while in the ER. Patient has been having worsening shortness of breath and pain and came to ER. Chest x-ray showed persistent interstitial Prominence throughout both lungs. Left perihilar infiltrate or mass persists unchanged. Correlate clinically and progress studies recommended. EKG showed sinus rhythm. Laboratory pressure WBC 13.8 hemoglobin 11.6 and platelets 252 Sodium 133 potassium 4.2 chloride 98 bicarb is 30 BUN 19 and creatinine 0.57 and albumin 3.2 Coronavirus PCR not detected. 07/14/2022 Patient is currently lying in bed. Awake alert and oriented. Still having shortness of breath but improved clinically. Cough with whitish sputum production. Patient has been afebrile. Currently requiring oxygen at 8 L via nasal cannula. No nausea vomiting abdominal pain or diarrhea. Right humerus sling in place and pain is fairly controlled. No chest pain. No headache or dizziness or lightheadedness. Patient was seen by pulmonary. Continue on steroids changed to IV. Patient is also on antibiotics azithro. ceftriaxone. 07/15/2022 Patient is currently lying in bed. Awake alert and oriented. Breathing status is better. Currently requiring 7 L oxygen via nasal cannula. No complaints of worsening shortness of breath. Cough without any sputum production. No headache or dizziness lightheadedness. No complaints of right shoulder pain. Sling in place. Patient has been afebrile. Laboratory data showed WBC 9.23 hemoglobin 9.4 and platelets 285 Sodium 140 potassium 4.8 chloride 101 bicarb is 31.9 BUN 16.7 creatinine 0.5. Calcium 8.6. Patient is being continued on antibiotics at home of ceftriaxone. IV steroids and duo nebs. Pulmonary is on board. 07/16/2020 Patient still wheezing and he still on 9 down to 7 L/m of oxygen. 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 Pulmonary team on the case Objective - Vital Signs Vital signs: Vital Signs Temp 98.0 F 07/16/22 07:37 Pulse 91 07/16/22 11:38 Resp 22 07/16/22 11:38 BP 118/64 07/16/22 07:37 Pulse Ox 96 07/16/22 09:24 FiO2 5 07/14/22 07:36 Intake & Output 07/15/22 07/16/22 07/16/22 18:59 06:59 18:59 Intake Total 50 Balance 50 Intake: Intake, IV Titration 50 Amount cefTRIAXone 2 gm In 50 Sodium Chloride 0.9% 50 ml @ 100 mls/hr IVPB Q24H [facility] Rx#:[id number] Other: Voiding Method External Catheter # Voids 3 - Exam -GENERAL: The patient is alert and oriented x3, not in any acute distress. Well developed, well nourished. Thin built HEENT: Pupils are round and equally reacting to light. EOMI. No scleral icterus. No conjunctival pallor. Normocephalic, atraumatic. No pharyngeal erythema. No thyromegaly. CARDIOVASCULAR: S1 and S2 present. No murmurs, rubs, or gallops. -PULMONARY: Chest is clear to auscultation, no crackles. Tachypneic which short of breath. Bilateral scattered wheezing ABDOMEN: Soft, nontender, nondistended, normoactive bowel sounds. No palpable organomegaly. MUSCULOSKELETAL: No joint swelling or deformity. EXTREMITIES: No cyanosis, clubbing, or pedal edema. NEUROLOGICAL: Gross neurological examination did not reveal any focal deficits. SKIN: No rashes. no petechiae. - Labs CBC & Chem 7: 07/16/22 06:01 07/16/22 06:01 Labs: Abnormal Lab Results - Last 24 Hours (Table) 07/16/22 07/16/22 Range/Units 06:01 06:01 WBC 10.76 H (4.50-10.00) X 10*3/uL RBC 3.22 L (4.40-5.60) X 10*6/uL Hgb 9.4 L (13.0-17.0) g/dL Hct 30.4 L (39.6-50.0) % MCHC 30.9 L (32.0-37.0) g/dL RDW 17.0 H (11.5-14.5) % Immature Gran # 0.07 H (0.00-0.04) X 10*3/uL Neutrophils # 9.35 H (1.80-7.70) X 10*3/uL Lymphocytes # 0.86 L (0.90-5.00) X 10*3/uL Eosinophils # 0 L (0.04-0.35) X 10*3/uL Carbon Dioxide 31.5 H (20.0-27.5) mmol/L Anion Gap 7.50 L (10.00-18.00) mmol/L Creatinine 0.5 L (0.6-1.5) mg/dL BUN/Creatinine Ratio 30.00 H (12.00-20.00) Ratio Calcium 8.6 L (8.7-10.3) mg/dL Microbiology - Last 24 Hours (Table) 07/13/22 13:45 Blood Culture - Preliminary Blood No Growth after 48 hours 07/13/22 13:30 Blood Culture - Preliminary Blood No Growth after 48 hours Assessment and Plan Assessment: Acute on chronic hypoxic respiratory failure secondary to COPD exacerbation Pneumonia with persistent interstitial prominence of both legs and left perihilar filtrate. Underlying mass cannot be excluded. Chronic hypoxic aspiratory secondary COPD on home oxygen at 4 L via nasal cannula. Pulmonary fibrosis History of rheumatoid arthritis Obstructive sleep apnea on CPAP at home Osteoarthritis Hyperlipidemia Anxiety/depression Chronic CHF with preserved ejection fraction Prior history of smoking DVT prophylaxis with heparin subcu Plan: Continue with antibiotic ceftriaxone Continue with Solu-Medrol Continue with IV fluid Pulmonary team on the case Patient was possible lung mass, surgical candidate for pulmonary team, patient informed about pulmonary team recommendation and he is agreeable Labs and medication were reviewed.. Continue same treatment. Continue with symptomatic treatment. Resume home medication. Monitor labs and vitals. DVT and GI prophylaxis. Further recommendations as per clinical course of the patient DVT prophylaxis: Subcutaneous heparin GI Prophylaxis: Pepcid PT/OT: Pending Prognosis is guarded
--- NOTE | 2022-07-16 15:49 | P.PN ---
Subjective Progress Note Date: 07/16/22 This is a very pleasant 71-year-old male patient with a known history of hyperlipidemia, anxiety, rheumatoid arthritis, pulmonary fibrosis suspect secondary to the rheumatoid arthritis, chronic obstructive pulmonary disease from chronic tobacco dependence however he quit approximately 6 years ago. His FEV1 value is 46% of predicted. He's been maintained on Trelegy, albuterol nebulized treatments in the outpatient setting. He presented here to the emergency room earlier this week and wastreated for pneumonia. He presented here again yesterday with worsening shortness of breath, cough and congestion. He had also been discharged home from here on 06/30/2022 following a COPD exacerbation. Since that time he had fallen at home and broken his right shoulder. It is currently in a sling. Chest x-ray shows left perihilar density. Underlying mass not excluded. today's chest x-ray shows persistent interstitial prominence throughout both lung brown. Left perihilar infiltrate/mass persist and is unchanged. He is seen today in consultation on the regular medical floor. He is currently sitting up in bed. Awake and alert. He is dyspneic with conversation. Dyspneic with minimal exertion. He is quite frail. He has a large protruding umbilical hernia noted. She had been turned up to 10 L high flow nasal cannula with O2 saturations at 95%. Currently down to 8 L at 92%. We are accepting of 88% or higher based on his poor lung function. He is currently afebrile. Hemodynamically stable. He's been initiated on DuoNeb inhalations, Pulmicort and Perforomist inhalations, home prednisone dose at 2.5 mg daily antibiotics in the form of ceftriaxone and azithromycin. White count 13.8. Hemoglobin 11.6. Sodium 133. Potassium 4.2. BUN 19. Creatinine 0.57. Glucose 125. Mack virus by PCR not detected. Influenza screen negative. Pro-calcitonin pending. Reevaluated today on 07/15/22, patient is feeling better, however he is still requiring 7 L of oxygen via nasal cannula, O2 saturation is fluctuating anywhere between 85% up to 98%. Clinically however the patient is feeling better, breathing a lot easier. WBC count is 9.2 hemoglobin is 9.5. Electrolytes are normal. Renal profile is normal. Pro-calcitonin level was minimally increased at 0.12, doubt clinical significance of pro-calcitonin level of 0.12. The patient is seen today 07/16/2022 in follow-up on the regular medical floor. He is currently resting fairly comfortably in bed. Awake and alert in no acute distress. Family is at the bedside. If he is currently maintaining O2 saturations in the low 90s on 7 L high flow nasal cannula. 0.9 normal saline at 30 MLS per hour. Blood cultures revealing no growth to date. White count 10.7. Hemoglobin 9.4. Platelets 297. Sodium 140. Potassium 4.7. BUN 15. Creatinine 0.5. Glucose 105. He is continued on DuoNeb inhalations, Pulmicort and Perforomist inhalations, IV Solu-Medrol. Antibiotics in the form of ceftriaxone. Morphine and [place] for pain control. Objective - Vital Signs Vital signs: Vital Signs Temp 98.0 F 07/16/22 07:37 Pulse 90 07/16/22 15:34 Resp 22 07/16/22 11:38 BP 118/64 07/16/22 07:37 Pulse Ox 96 07/16/22 09:24 FiO2 5 07/14/22 07:36 Intake & Output 07/15/22 07/16/22 07/16/22 18:59 06:59 18:59 Intake Total 50 Balance 50 Intake: Intake, IV Titration 50 Amount cefTRIAXone 2 gm In 50 Sodium Chloride 0.9% 50 ml @ 100 mls/hr IVPB Q24H [facility] Rx#:[id number] Other: Voiding Method External Catheter # Voids 3 - Exam GENERAL EXAM: Alert, very pleasant 71-year-old male, frail, cachectic, on 7 L high flow nasal cannula, fairly comfortable in no apparent distress. HEAD: Normocephalic. EYES: Normal reaction of pupils, equal size. NOSE: Clear with pink turbinates. THROAT: No erythema or exudates. NECK: No masses, no JVD. CHEST: No chest wall deformity. LUNGS: Equal air entry with coarse crackles in the posterior bases. CVS: S1 and S2 normal with no audible murmur, regular rhythm. ABDOMEN: Large protruding umbilical hernia. No hepatosplenomegaly, normal bowel sounds, no guarding or rigidity. SPINE: Kyphosis SKIN: Ecchymosis of the right upper extremity No rashes CENTRAL NERVOUS SYSTEM: No focal deficits, tone is normal in all 4 extremities. EXTREMITIES: Fracture right shoulder currently in a sling. Changes of rheumatoid arthritis. There is no peripheral edema. - Labs CBC & Chem 7: 07/16/22 06:01 07/16/22 06:01 Labs: Abnormal Lab Results - Last 24 Hours (Table) 07/16/22 07/16/22 Range/Units 06:01 06:01 WBC 10.76 H (4.50-10.00) X 10*3/uL RBC 3.22 L (4.40-5.60) X 10*6/uL Hgb 9.4 L (13.0-17.0) g/dL Hct 30.4 L (39.6-50.0) % MCHC 30.9 L (32.0-37.0) g/dL RDW 17.0 H (11.5-14.5) % Immature Gran # 0.07 H (0.00-0.04) X 10*3/uL Neutrophils # 9.35 H (1.80-7.70) X 10*3/uL Lymphocytes # 0.86 L (0.90-5.00) X 10*3/uL Eosinophils # 0 L (0.04-0.35) X 10*3/uL Carbon Dioxide 31.5 H (20.0-27.5) mmol/L Anion Gap 7.50 L (10.00-18.00) mmol/L Creatinine 0.5 L (0.6-1.5) mg/dL BUN/Creatinine Ratio 30.00 H (12.00-20.00) Ratio Calcium 8.6 L (8.7-10.3) mg/dL Microbiology - Last 24 Hours (Table) 07/13/22 13:45 Blood Culture - Preliminary Blood No Growth after 48 hours 07/13/22 13:30 Blood Culture - Preliminary Blood No Growth after 48 hours Assessment and Plan Assessment: Acute on chronic hypoxemic respiratory failure, secondary to COPD exacerbation, and complicated by left-sided pneumonia. Chronic left upper lobe infiltrate/mass. Could not rule out neoplasm however the patient is to frail for any intervention or biopsies History of severe oxygen-dependent, steroid dependent COPD. Pulmonary fibrosis, suspect secondary to rheumatoid arthritis. Recent fall with fracture to the right upper extremity. History of CHF. History of hyperlipidemia. History of osteoarthritis. History of rheumatoid arthritis. History of sleep apnea syndrome, maintained on CPAP. History of perforated duodenal ulcer. History of anxiety/depression. Previous history of heavy tobacco use. Plan: The patient was seen and evaluated Labs and medications reviewed Can not rule out neoplasm in the left upper lobe however he is too frail for any intervention Could possibly be worked up with a PET scan in the outpatient setting Continue antibiotics for now Continue bronchodilators, IV Solu-Medrol Titrate down the FiO2 as tolerated DO NOT RESUSCITATE/DO NOT INTUBATE CODE STATUS per his request Social work for discharge planning, may require subacute rehabilitation versus home with home care We will continue to follow I have personally seen and examined the patient, performed the documentation and the assessment and plan as written. Number of minutes spent on the visit: 10.
[2022-07-16] MEDS ORDERED: NON FORMULARY DRUG (Alendronate Sodium [Fosamax] 70 MG Tablet) PO SCH (19:37)
[2022-07-16] MEDS: AMITRIPTYLINE HCL 10 MG TAB PO SCH (21:46)
[2022-07-16] MEDS: ATORVASTATIN 40 MG TAB PO SCH (21:46)
[2022-07-17] MEDS: HYDROcodone/APAP 7.5-325MG 1 EACH TAB PO PRN ×4 (03:12→22:49)
[2022-07-17] MEDS: PANTOPRAZOLE 40 MG TABLET PO SCH (06:28)
[2022-07-17] MEDS: FORMOTEROL FUMARATE 20 MCG/2 ML NEBU INHALATION SCH ×2 (08:24→20:53)
[2022-07-17] MEDS: IPRATROPIUM-ALBUTEROL 3 ML NEB INHALATION SCH ×4 (08:24→20:53)
[2022-07-17] MEDS: BUDESONIDE 1 MG/2 ML NEBU INHALATION SCH ×2 (08:24→20:53)
[2022-07-17] MEDS: methylPREDNISolone SOD SUCCI 40 MG/ML 1 ML VIAL IV SCH ×2 (09:52→16:53)
[2022-07-17] MEDS: CLOPIDOGREL 75 MG TAB PO SCH (09:55)
[2022-07-17] MEDS: SERTRALINE 50 MG TAB PO SCH (09:55)
[2022-07-17] MEDS: CHOLECALCIFEROL 25 MCG (1000 IU) TABLET PO SCH (09:55)
[2022-07-17] MEDS: METOPROLOL SUCCINATE (ER) 25 MG TAB.ER.24H PO SCH (09:55)
--- NOTE | 2022-07-17 10:24 | P.PN ---
Subjective Patient is a 71-year-old male with a known history of COPD on home oxygen, osteoarthritis, hyperlipidemia, rheumatoid arthritis, obstructive sleep apnea, chronic back pain and anxiety/depression prior history of smoking presents to ER with complaints of worsening shortness of breath. Patient was desaturating at home and oxygen on turn up to 10 L at home. Patient has been having cough but unable to bring out any sputum. Patient has Poor functional status. Patient was recently discharged from the hospital on 06/30/2022. Patient was treated for acute COPD exacerbation and pneumonia and was discharged home on Omnicef and azithromycin. Patient states that he fell on Saturday and fractured his right proximal humerus and was placed on sling while in the ER. Patient has been having worsening shortness of breath and pain and came to ER. Chest x-ray showed persistent interstitial Prominence throughout both lungs. Left perihilar infiltrate or mass persists unchanged. Correlate clinically and progress studies recommended. EKG showed sinus rhythm. Laboratory pressure WBC 13.8 hemoglobin 11.6 and platelets 252 Sodium 133 potassium 4.2 chloride 98 bicarb is 30 BUN 19 and creatinine 0.57 and albumin 3.2 Coronavirus PCR not detected. 07/14/2022 Patient is currently lying in bed. Awake alert and oriented. Still having shortness of breath but improved clinically. Cough with whitish sputum production. Patient has been afebrile. Currently requiring oxygen at 8 L via nasal cannula. No nausea vomiting abdominal pain or diarrhea. Right humerus sling in place and pain is fairly controlled. No chest pain. No headache or dizziness or lightheadedness. Patient was seen by pulmonary. Continue on steroids changed to IV. Patient is also on antibiotics azithro. ceftriaxone. 07/15/2022 Patient is currently lying in bed. Awake alert and oriented. Breathing status is better. Currently requiring 7 L oxygen via nasal cannula. No complaints of worsening shortness of breath. Cough without any sputum production. No headache or dizziness lightheadedness. No complaints of right shoulder pain. Sling in place. Patient has been afebrile. Laboratory data showed WBC 9.23 hemoglobin 9.4 and platelets 285 Sodium 140 potassium 4.8 chloride 101 bicarb is 31.9 BUN 16.7 creatinine 0.5. Calcium 8.6. Patient is being continued on antibiotics at home of ceftriaxone. IV steroids and duo nebs. Pulmonary is on board. 07/16/2020 Patient still wheezing and he still on 9 down to 7 L/m of oxygen. Hemoglobin stable 9.4, WBC 10 while his with IV Solu-Medrol 40 mg Also he is on ceftriaxone and normal saline at 50 mL per hour I talked to the patient about possible lung mass and recommendation of queen producer to hold off on any biopsy or procedure for now and he is agreeable. Pulmonary team on the case 07/17/2022 Patient seen in bed, is still short of breath and tachypneic but he can talk freely. This morning he was saturating 99% on 11 L oxygen via nasal cannula Pulmonary on the case Remains on ceftriaxone, Solu-Medrol 40 mg and normal saline at 30 mL/h. Objective - Vital Signs Vital signs: Vital Signs Temp 97.7 F 07/17/22 08:00 Pulse 96 07/17/22 08:49 Resp 19 07/17/22 08:00 BP 121/73 07/17/22 08:00 Pulse Ox 99 07/17/22 08:28 FiO2 5 07/14/22 07:36 Intake & Output 07/16/22 07/17/22 07/17/22 18:59 06:59 18:59 Intake Total 480 530 Output Total 500 Balance 480 30 Intake: Intake, IV Titration 50 Amount cefTRIAXone 2 gm In 50 Sodium Chloride 0.9% 50 ml @ 100 mls/hr IVPB Q24H [facility] Rx#:[id number] Oral 480 480 Output: Urine 500 Other: Voiding Method External Catheter External Catheter # Voids 2 1 # Bowel Movements 1 - Exam -GENERAL: The patient is alert and oriented x3, not in any acute distress. Well developed, well nourished. Thin built HEENT: Pupils are round and equally reacting to light. EOMI. No scleral icterus. No conjunctival pallor. Normocephalic, atraumatic. No pharyngeal erythema. No thyromegaly. CARDIOVASCULAR: S1 and S2 present. No murmurs, rubs, or gallops. -PULMONARY: Chest is clear to auscultation, no crackles. Tachypneic which short of breath. Bilateral scattered wheezing ABDOMEN: Soft, nontender, nondistended, normoactive bowel sounds. No palpable organomegaly. MUSCULOSKELETAL: No joint swelling or deformity. EXTREMITIES: No cyanosis, clubbing, or pedal edema. NEUROLOGICAL: Gross neurological examination did not reveal any focal deficits. SKIN: No rashes. no petechiae. - Labs CBC & Chem 7: 07/16/22 06:01 07/16/22 06:01 Labs: Abnormal Lab Results - Last 24 Hours (Table) 07/16/22 07/16/22 Range/Units 06:01 06:01 WBC 10.76 H (4.50-10.00) X 10*3/uL RBC 3.22 L (4.40-5.60) X 10*6/uL Hgb 9.4 L (13.0-17.0) g/dL Hct 30.4 L (39.6-50.0) % MCHC 30.9 L (32.0-37.0) g/dL RDW 17.0 H (11.5-14.5) % Immature Gran # 0.07 H (0.00-0.04) X 10*3/uL Neutrophils # 9.35 H (1.80-7.70) X 10*3/uL Lymphocytes # 0.86 L (0.90-5.00) X 10*3/uL Eosinophils # 0 L (0.04-0.35) X 10*3/uL Carbon Dioxide 31.5 H (20.0-27.5) mmol/L Anion Gap 7.50 L (10.00-18.00) mmol/L Creatinine 0.5 L (0.6-1.5) mg/dL BUN/Creatinine Ratio 30.00 H (12.00-20.00) Ratio Calcium 8.6 L (8.7-10.3) mg/dL Microbiology - Last 24 Hours (Table) 07/13/22 13:45 Blood Culture - Preliminary Blood No Growth after 72 hours 07/13/22 13:30 Blood Culture - Preliminary Blood No Growth after 72 hours Assessment and Plan Assessment: Acute on chronic hypoxic respiratory failure secondary to COPD exacerbation Pneumonia with persistent interstitial prominence of both legs and left perihilar filtrate. Underlying mass cannot be excluded. Chronic hypoxic aspiratory secondary COPD on home oxygen at 4 L via nasal cannula. Pulmonary fibrosis History of rheumatoid arthritis Obstructive sleep apnea on CPAP at home Osteoarthritis Hyperlipidemia Anxiety/depression Chronic CHF with preserved ejection fraction Prior history of smoking DVT prophylaxis with heparin subcu Plan: Continue with antibiotic ceftriaxone Continue with Solu-Medrol Continue with IV fluid Pulmonary team on the case Patient was possible lung mass, surgical candidate for pulmonary team, patient informed about pulmonary team recommendation and he is agreeable Labs and medication were reviewed.. Continue same treatment. Continue with symptomatic treatment. Resume home medication. Monitor labs and vitals. DVT and GI prophylaxis. Further recommendations as per clinical course of the patient DVT prophylaxis: Subcutaneous heparin GI Prophylaxis: Pepcid PT/OT: Pending Prognosis is guarded
--- NOTE | 2022-07-17 11:55 | P.PN ---
Subjective Progress Note Date: 07/17/22 This is a very pleasant 71-year-old male patient with a known history of hyperlipidemia, anxiety, rheumatoid arthritis, pulmonary fibrosis suspect secondary to the rheumatoid arthritis, chronic obstructive pulmonary disease from chronic tobacco dependence however he quit approximately 6 years ago. His FEV1 value is 46% of predicted. He's been maintained on Trelegy, albuterol nebulized treatments in the outpatient setting. He presented here to the emergency room earlier this week and wastreated for pneumonia. He presented here again yesterday with worsening shortness of breath, cough and congestion. He had also been discharged home from here on 06/30/2022 following a COPD exacerbation. Since that time he had fallen at home and broken his right shoulder. It is currently in a sling. Chest x-ray shows left perihilar density. Underlying mass not excluded. today's chest x-ray shows persistent interstitial prominence throughout both lung brown. Left perihilar infiltrate/mass persist and is unchanged. He is seen today in consultation on the regular medical floor. He is currently sitting up in bed. Awake and alert. He is dyspneic with conversation. Dyspneic with minimal exertion. He is quite frail. He has a large protruding umbilical hernia noted. She had been turned up to 10 L high flow nasal cannula with O2 saturations at 95%. Currently down to 8 L at 92%. We are accepting of 88% or higher based on his poor lung function. He is currently afebrile. Hemodynamically stable. He's been initiated on DuoNeb inhalations, Pulmicort and Perforomist inhalations, home prednisone dose at 2.5 mg daily antibiotics in the form of ceftriaxone and azithromycin. White count 13.8. Hemoglobin 11.6. Sodium 133. Potassium 4.2. BUN 19. Creatinine 0.57. Glucose 125. Mack virus by PCR not detected. Influenza screen negative. Pro-calcitonin pending. Reevaluated today on 07/15/22, patient is feeling better, however he is still requiring 7 L of oxygen via nasal cannula, O2 saturation is fluctuating anywhere between 85% up to 98%. Clinically however the patient is feeling better, breathing a lot easier. WBC count is 9.2 hemoglobin is 9.5. Electrolytes are normal. Renal profile is normal. Pro-calcitonin level was minimally increased at 0.12, doubt clinical significance of pro-calcitonin level of 0.12. The patient is seen today 07/16/2022 in follow-up on the regular medical floor. He is currently resting fairly comfortably in bed. Awake and alert in no acute distress. Family is at the bedside. If he is currently maintaining O2 saturations in the low 90s on 7 L high flow nasal cannula. 0.9 normal saline at 30 MLS per hour. Blood cultures revealing no growth to date. White count 10.7. Hemoglobin 9.4. Platelets 297. Sodium 140. Potassium 4.7. BUN 15. Creatinine 0.5. Glucose 105. He is continued on DuoNeb inhalations, Pulmicort and Perforomist inhalations, IV Solu-Medrol. Antibiotics in the form of ceftriaxone. Morphine and [place] for pain control. The patient is seen today 07/17/2022 follow-up on the regular medical floor. He is awake and alert in no acute distress. Feeling a bit better today compared to yesterday. He is currently on 6 L high flow nasal cannula. He is working with PT/OT. To be up in a chair as tolerated. He is continued on DuoNeb inhalations, Pulmicort and Perforomist inhalations, IV Solu-Medrol. Antibiotics in the form of ceftriaxone. Morphine and [place] for pain control. Objective - Vital Signs Vital signs: Vital Signs Temp 97.7 F 07/17/22 08:00 Pulse 88 07/17/22 11:43 Resp 19 07/17/22 08:00 BP 121/73 07/17/22 08:00 Pulse Ox 96 07/17/22 09:30 FiO2 5 07/14/22 07:36 Intake & Output 07/16/22 07/17/22 07/17/22 18:59 06:59 18:59 Intake Total 480 530 Output Total 500 Balance 480 30 Intake: Intake, IV Titration 50 Amount cefTRIAXone 2 gm In 50 Sodium Chloride 0.9% 50 ml @ 100 mls/hr IVPB Q24H [facility] Rx#:[id number] Oral 480 480 Output: Urine 500 Other: Voiding Method External Catheter External Catheter # Voids 2 1 # Bowel Movements 1 - Exam GENERAL EXAM: Alert, pleasant 71-year-old male, frail, cachectic, on 6 L high flow nasal cannula, fairly comfortable in no apparent distress. HEAD: Normocephalic. EYES: Normal reaction of pupils, equal size. NOSE: Clear with pink turbinates. THROAT: No erythema or exudates. NECK: No masses, no JVD. CHEST: No chest wall deformity. LUNGS: Equal air entry with coarse crackles in the posterior bases. CVS: S1 and S2 normal with no audible murmur, regular rhythm. ABDOMEN: Large protruding umbilical hernia. No hepatosplenomegaly, normal bowel sounds, no guarding or rigidity. SPINE: Kyphosis SKIN: Ecchymosis of the right upper extremity No rashes CENTRAL NERVOUS SYSTEM: No focal deficits, tone is normal in all 4 extremities. EXTREMITIES: Fracture right shoulder currently in a sling. Changes of rheumatoid arthritis. There is no peripheral edema. - Labs CBC & Chem 7: 07/16/22 06:01 07/16/22 06:01 Labs: Microbiology - Last 24 Hours (Table) 07/13/22 13:45 Blood Culture - Preliminary Blood No Growth after 72 hours 07/13/22 13:30 Blood Culture - Preliminary Blood No Growth after 72 hours Assessment and Plan Assessment: Acute on chronic hypoxemic respiratory failure, secondary to COPD exacerbation, and complicated by left-sided pneumonia. Chronic left upper lobe infiltrate/mass. Could not rule out neoplasm however the patient is to frail for any intervention or biopsies History of severe oxygen-dependent, steroid dependent COPD. Pulmonary fibrosis, suspect secondary to rheumatoid arthritis. Recent fall with fracture to the right upper extremity. History of CHF. History of hyperlipidemia. History of osteoarthritis. History of rheumatoid arthritis. History of sleep apnea syndrome, maintained on CPAP. History of perforated duodenal ulcer. History of anxiety/depression. Previous history of heavy tobacco use. Plan: The patient was seen and evaluated Medications reviewed Continue antibiotics Continue bronchodilators, IV Solu-Medrol Titrate down the FiO2 as tolerated, currently on 6 L high flow nasal cannula Follow-up chest x-ray in a.m. DO NOT RESUSCITATE/DO NOT INTUBATE CODE STATUS per his request We will continue to follow I have personally seen and examined the patient, performed the documentation and the assessment and plan as written. Number of minutes spent on the visit: 10.
[2022-07-17 13:43] LABS: Appearance,Urine Clear (Clear); Bacteria,Urine Moderate /hpf; Bilirubin,Urine Negative (Negative); Blood,Urine Negative (Negative); Color,Urine Light Yellow; Glucose,Urine (UA) Negative (Negative); Hyaline Casts,Urine 3 /lpf (0-2); Ketones,Urine Negative (Negative); Leukocyte Esterase,Urine Large (Negative); Mucus,Urine Rare /hpf; Nitrite,Urine Negative (Negative); PH, Urine 7.5 (5.0-8.0); Protein,Urine Negative (Negative); RBC,Urine 2 /hpf (0-5); Specific Gravity,Urine 1.012 (1.001-1.035); Urobilinogen,Urine <2.0 mg/dL (<2.0); WBC,Urine 7 /hpf (0-5)
[2022-07-17] MEDS ORDERED: ZOLPIDEM 5 MG TAB PO PRN (16:36)
[2022-07-17] MEDS: AMITRIPTYLINE HCL 10 MG TAB PO SCH (21:13)
[2022-07-17] MEDS: ATORVASTATIN 40 MG TAB PO SCH (21:13)
[2022-07-18] MEDS: methylPREDNISolone SOD SUCCI 40 MG/ML 1 ML VIAL IV SCH ×4 (00:49→23:15)
[2022-07-18] MEDS: HYDROcodone/APAP 7.5-325MG 1 EACH TAB PO PRN ×3 (04:40→20:45)
[2022-07-18] MEDS: PANTOPRAZOLE 40 MG TABLET PO SCH (06:16)
[2022-07-18] MEDS: IPRATROPIUM-ALBUTEROL 3 ML NEB INHALATION SCH ×4 (06:57→21:07)
[2022-07-18] MEDS: FORMOTEROL FUMARATE 20 MCG/2 ML NEBU INHALATION SCH ×2 (06:57→21:07)
[2022-07-18] MEDS: BUDESONIDE 1 MG/2 ML NEBU INHALATION SCH ×2 (06:58→21:06)
--- NOTE | 2022-07-18 07:26 | XR ---
EXAMINATION TYPE: XR chest 1V portable DATE OF EXAM: 07/18/2022 6:32 AM COMPARISON: Chest radiographs from TECHNIQUE: XR chest 1V portable . CLINICAL INDICATION:Male, 71 years old with history of Pneumonia follow up; FINDINGS: Lungs/Pleura: Fibrotic changes with superimposed likely airspace disease. There is no evidence of ple ural effusion, focal consolidation, or pneumothorax. Pulmonary vascularity: Unremarkable. Heart/mediastinum: Cardiomediastinal silhouette is unremarkable. Musculoskeletal: Acute fracture of the proximal right humerus. Remote appearing right-sided rib fract ures. IMPRESSION: 1. Pulmonary fibrosis with COPD and likely underlying airspace disease. 2. Acute proximal right humerus fracture. New from 06/30/2022, similar to 07/13/2022.
[2022-07-18] MEDS: METOPROLOL SUCCINATE (ER) 25 MG TAB.ER.24H PO SCH (09:39)
[2022-07-18] MEDS: CHOLECALCIFEROL 25 MCG (1000 IU) TABLET PO SCH (09:39)
[2022-07-18] MEDS: CLOPIDOGREL 75 MG TAB PO SCH (09:39)
[2022-07-18] MEDS: SERTRALINE 50 MG TAB PO SCH (09:39)
[2022-07-18 10:53] LABS: Anisocytosis Slight; Basophils % (A) 0 %; Eosinophils % (A) 0 %; HCT 33.9 % (39.0-53.0); HGB 10.8 gm/dL (13.0-17.5); Hypochromasia Slight; Lymphocytes # (A) 1.5 k/uL (1.0-4.8); Lymphocytes % (A) 15 %; MCH 29.8 pg (25.0-35.0); MCHC 31.9 g/dL (31.0-37.0); MCV 93.3 fL (80.0-100.0); Mean Platelet Volume 7.6; Monocytes # (A) 0.5 k/uL (0-1.0); Monocytes % (A) 5 %; Neutrophils # (A) 8.2 k/uL (1.3-7.7); Neutrophils % (A) 79 %; Platelet Count 356 k/uL (150-450); RBC 3.63 m/uL (4.30-5.90); RDW 17.3 % (11.5-15.5); WBC 10.5 k/uL (3.8-10.6)
--- NOTE | 2022-07-18 13:15 | P.PN ---
Subjective Progress Note Date: 07/18/22 This is a very pleasant 71-year-old male patient with a known history of hyperlipidemia, anxiety, rheumatoid arthritis, pulmonary fibrosis suspect secondary to the rheumatoid arthritis, chronic obstructive pulmonary disease from chronic tobacco dependence however he quit approximately 6 years ago. His FEV1 value is 46% of predicted. He's been maintained on Trelegy, albuterol nebulized treatments in the outpatient setting. He presented here to the emergency room earlier this week and wastreated for pneumonia. He presented here again yesterday with worsening shortness of breath, cough and congestion. He had also been discharged home from here on 06/30/2022 following a COPD exacerbation. Since that time he had fallen at home and broken his right shoulder. It is currently in a sling. Chest x-ray shows left perihilar density. Underlying mass not excluded. today's chest x-ray shows persistent interstitial prominence throughout both lung brown. Left perihilar infiltrate/mass persist and is unchanged. He is seen today in consultation on the regular medical floor. He is currently sitting up in bed. Awake and alert. He is dyspneic with conversation. Dyspneic with minimal exertion. He is quite frail. He has a large protruding umbilical hernia noted. She had been turned up to 10 L high flow nasal cannula with O2 saturations at 95%. Currently down to 8 L at 92%. We are accepting of 88% or higher based on his poor lung function. He is currently afebrile. Hemodynamically stable. He's been initiated on DuoNeb inhalations, Pulmicort and Perforomist inhalations, home prednisone dose at 2.5 mg daily antibiotics in the form of ceftriaxone and azithromycin. White count 13.8. Hemoglobin 11.6. Sodium 133. Potassium 4.2. BUN 19. Creatinine 0.57. Glucose 125. Mack virus by PCR not detected. Influenza screen negative. Pro-calcitonin pending. Reevaluated today on 07/15/22, patient is feeling better, however he is still requiring 7 L of oxygen via nasal cannula, O2 saturation is fluctuating anywhere between 85% up to 98%. Clinically however the patient is feeling better, breathing a lot easier. WBC count is 9.2 hemoglobin is 9.5. Electrolytes are normal. Renal profile is normal. Pro-calcitonin level was minimally increased at 0.12, doubt clinical significance of pro-calcitonin level of 0.12. The patient is seen today 07/16/2022 in follow-up on the regular medical floor. He is currently resting fairly comfortably in bed. Awake and alert in no acute distress. Family is at the bedside. If he is currently maintaining O2 saturations in the low 90s on 7 L high flow nasal cannula. 0.9 normal saline at 30 MLS per hour. Blood cultures revealing no growth to date. White count 10.7. Hemoglobin 9.4. Platelets 297. Sodium 140. Potassium 4.7. BUN 15. Creatinine 0.5. Glucose 105. He is continued on DuoNeb inhalations, Pulmicort and Perforomist inhalations, IV Solu-Medrol. Antibiotics in the form of ceftriaxone. Morphine and [place] for pain control. The patient is seen today 07/17/2022 follow-up on the regular medical floor. He is awake and alert in no acute distress. Feeling a bit better today compared to yesterday. He is currently on 6 L high flow nasal cannula. He is working with PT/OT. To be up in a chair as tolerated. He is continued on DuoNeb inhalations, Pulmicort and Perforomist inhalations, IV Solu-Medrol. Antibiotics in the form of ceftriaxone. Morphine and [place] for pain control. The patient is seen today 07/18/2022 in follow-up on the regular medical floor. Today he is quite somnolent. He was restless and somewhat combative throughout the night. He did receive Ambien about 10 PM. He is arousable. He is taking his medications with applesauce. He is quite frail and cachectic. Currently on 7 L high flow nasal cannula with O2 saturations in the upper 90s. He is afebrile. Hemodynamically stable. Blood cultures reveal no growth. Urine culture pending. white count 10.5. Hemoglobin 10.8. Urinalysis with moderate bacteria. He is currently on ceftriaxone. He remains on DuoNeb inhalations, Pulmicort and Perforomist inhalations, IV Solu-Medrol. Objective - Vital Signs Vital signs: Vital Signs Temp 97.9 F 07/18/22 08:00 Pulse 82 07/18/22 11:58 Resp 16 07/18/22 08:00 BP 129/84 07/18/22 08:00 Pulse Ox 99 07/18/22 08:00 FiO2 5 07/14/22 07:36 Intake & Output 07/17/22 07/18/22 07/18/22 18:59 06:59 18:59 Intake Total 360 Output Total 500 Balance -500 360 Intake: Oral 360 Output: Urine 500 Other: Voiding Method External Catheter Diaper # Voids 2 # Bowel Movements 1 - Exam GENERAL EXAM: Arousable 71-year-old male, frail, cachectic, on 7 L high flow nasal cannula, fairly comfortable in no apparent distress. HEAD: Normocephalic. EYES: Normal reaction of pupils, equal size. NOSE: Clear with pink turbinates. THROAT: No erythema or exudates. NECK: No masses, no JVD. CHEST: No chest wall deformity. LUNGS: Equal air entry with coarse crackles in the posterior bases. CVS: S1 and S2 normal with no audible murmur, regular rhythm. ABDOMEN: Large protruding umbilical hernia. No hepatosplenomegaly, normal bowel sounds, no guarding or rigidity. SPINE: Kyphosis SKIN: Ecchymosis of the right upper extremity No rashes CENTRAL NERVOUS SYSTEM: No focal deficits, tone is normal in all 4 extremities. EXTREMITIES: Fracture right shoulder currently in a sling. Changes of rheumatoid arthritis. There is no peripheral edema. - Labs CBC & Chem 7: 07/18/22 10:11 07/16/22 06:01 Labs: Abnormal Lab Results - Last 24 Hours (Table) 07/17/22 07/18/22 Range/Units 13:30 10:11 RBC 3.63 L (4.30-5.90) m/uL Hgb 10.8 L (13.0-17.5) gm/dL Hct 33.9 L (39.0-53.0) % RDW 17.3 H (11.5-15.5) % Neutrophils # 8.2 H (1.3-7.7) k/uL Ur Leukocyte Esterase Large H (Negative) Urine WBC 7 H (0-5) /hpf Urine Bacteria Moderate H (None) /hpf Hyaline Casts 3 H (0-2) /lpf Urine Mucus Rare H (None) /hpf Microbiology - Last 24 Hours (Table) 07/17/22 18:00 Urine Culture - Preliminary Urine,Voided 07/13/22 13:30 Blood Culture - Preliminary Blood No Growth after 96 hours 07/13/22 13:45 Blood Culture - Preliminary Blood No Growth after 96 hours Assessment and Plan Assessment: Acute on chronic hypoxemic respiratory failure, secondary to COPD exacerbation, and complicated by left-sided pneumonia. Chronic left upper lobe infiltrate/mass. Could not rule out neoplasm however the patient is to frail for any intervention or biopsies History of severe oxygen-dependent, steroid dependent COPD. Pulmonary fibrosis, suspect secondary to rheumatoid arthritis. Urinary tract infection. Currently on ceftriaxone. Recent fall with fracture to the right upper extremity. History of CHF. History of hyperlipidemia. History of osteoarthritis. History of rheumatoid arthritis. History of sleep apnea syndrome, maintained on CPAP. History of perforated duodenal ulcer. History of anxiety/depression. Previous history of heavy tobacco use. Poor overall functional status based on the above-mentioned multiple comorbidities. Plan: The patient was seen and evaluated Chest x-ray, labs and medications reviewed Continue antibiotics, bronchodilators, IV Solu-Medrol Titrate down the FiO2 as tolerated, currently on 7 L high flow nasal cannula Poor prognosis, may consider palliative/hospice DO NOT RESUSCITATE/DO NOT INTUBATE CODE STATUS per his request We will continue to follow I have personally seen and examined the patient, performed the documentation and the assessment and plan as written. Number of minutes spent on the visit: 10.
--- NOTE | 2022-07-18 13:36 | P.PN ---
Subjective Patient is a 71-year-old male with a known history of COPD on home oxygen, osteoarthritis, hyperlipidemia, rheumatoid arthritis, obstructive sleep apnea, chronic back pain and anxiety/depression prior history of smoking presents to ER with complaints of worsening shortness of breath. Patient was desaturating at home and oxygen on turn up to 10 L at home. Patient has been having cough but unable to bring out any sputum. Patient has Poor functional status. Patient was recently discharged from the hospital on 06/30/2022. Patient was treated for acute COPD exacerbation and pneumonia and was discharged home on Omnicef and azithromycin. Patient states that he fell on Saturday and fractured his right proximal humerus and was placed on sling while in the ER. Patient has been having worsening shortness of breath and pain and came to ER. Chest x-ray showed persistent interstitial Prominence throughout both lungs. Left perihilar infiltrate or mass persists unchanged. Correlate clinically and progress studies recommended. EKG showed sinus rhythm. Laboratory pressure WBC 13.8 hemoglobin 11.6 and platelets 252 Sodium 133 potassium 4.2 chloride 98 bicarb is 30 BUN 19 and creatinine 0.57 and albumin 3.2 Coronavirus PCR not detected. 07/14/2022 Patient is currently lying in bed. Awake alert and oriented. Still having shortness of breath but improved clinically. Cough with whitish sputum production. Patient has been afebrile. Currently requiring oxygen at 8 L via nasal cannula. No nausea vomiting abdominal pain or diarrhea. Right humerus sling in place and pain is fairly controlled. No chest pain. No headache or dizziness or lightheadedness. Patient was seen by pulmonary. Continue on steroids changed to IV. Patient is also on antibiotics azithro. ceftriaxone. 07/15/2022 Patient is currently lying in bed. Awake alert and oriented. Breathing status is better. Currently requiring 7 L oxygen via nasal cannula. No complaints of worsening shortness of breath. Cough without any sputum production. No headache or dizziness lightheadedness. No complaints of right shoulder pain. Sling in place. Patient has been afebrile. Laboratory data showed WBC 9.23 hemoglobin 9.4 and platelets 285 Sodium 140 potassium 4.8 chloride 101 bicarb is 31.9 BUN 16.7 creatinine 0.5. Calcium 8.6. Patient is being continued on antibiotics at home of ceftriaxone. IV steroids and duo nebs. Pulmonary is on board. 07/16/2020 Patient still wheezing and he still on 9 down to 7 L/m of oxygen. 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 Pulmonary team on the case 07/17/2022 Patient seen in bed, is still short of breath and tachypneic but he can talk freely. This morning he was saturating 99% on 11 L oxygen via nasal cannula Pulmonary on the case Remains on ceftriaxone, Solu-Medrol 40 mg and normal saline at 30 mL/h. 07/18/2022 Patient still tachypneic and still he needs 7 L of oxygen via nasal cannula, chest x-ray showing COPD and bilateral interstitial infiltrates was suspicion for perihilar mass.Also has evidence of pulmonary fibrosis and this was sent for left humerus fracture. Yesterday the was concerned about UTI and urine analysis was suspicion for infection site was started on ceftriaxone and urine culture is pending. She requested that the patient started on Ambien we give him half tablets of 2.5 mg and is more sleepy today for recurrent surgery to melatonin. patient is not improving well and pulmonary team recommended to consider hospice care/palliative care Objective - Vital Signs Vital signs: Vital Signs Temp 97.9 F 07/18/22 08:00 Pulse 82 07/18/22 11:58 Resp 16 07/18/22 08:00 BP 129/84 07/18/22 08:00 Pulse Ox 99 07/18/22 08:00 FiO2 5 07/14/22 07:36 Intake & Output 07/17/22 07/18/22 07/18/22 18:59 06:59 18:59 Intake Total 360 Output Total 500 Balance -500 360 Intake: Oral 360 Output: Urine 500 Other: Voiding Method External Catheter Diaper # Voids 2 # Bowel Movements 1 - Exam -GENERAL: The patient is alert and oriented, more sleepy today not in any acute distress. Well developed, well nourished. Thin built HEENT: Pupils are round and equally reacting to light. EOMI. No scleral icterus. No conjunctival pallor. Normocephalic, atraumatic. No pharyngeal erythema. No thyromegaly. CARDIOVASCULAR: S1 and S2 present. No murmurs, rubs, or gallops. -PULMONARY: Chest is clear to auscultation, no crackles. Tachypneic which short of breath. Bilateral scattered wheezing ABDOMEN: Soft, nontender, nondistended, normoactive bowel sounds. No palpable organomegaly. MUSCULOSKELETAL: No joint swelling or deformity. EXTREMITIES: No cyanosis, clubbing, or pedal edema. NEUROLOGICAL: Gross neurological examination did not reveal any focal deficits. SKIN: No rashes. no petechiae. - Labs CBC & Chem 7: 07/18/22 10:11 07/16/22 06:01 Labs: Abnormal Lab Results - Last 24 Hours (Table) 07/17/22 07/18/22 Range/Units 13:30 10:11 RBC 3.63 L (4.30-5.90) m/uL Hgb 10.8 L (13.0-17.5) gm/dL Hct 33.9 L (39.0-53.0) % RDW 17.3 H (11.5-15.5) % Neutrophils # 8.2 H (1.3-7.7) k/uL Ur Leukocyte Esterase Large H (Negative) Urine WBC 7 H (0-5) /hpf Urine Bacteria Moderate H (None) /hpf Hyaline Casts 3 H (0-2) /lpf Urine Mucus Rare H (None) /hpf Microbiology - Last 24 Hours (Table) 07/17/22 18:00 Urine Culture - Preliminary Urine,Voided 07/13/22 13:30 Blood Culture - Preliminary Blood No Growth after 96 hours 07/13/22 13:45 Blood Culture - Preliminary Blood No Growth after 96 hours Assessment and Plan Assessment: Acute on chronic hypoxic respiratory failure secondary to COPD exacerbation Pneumonia with persistent interstitial prominence of both legs and left perihilar filtrate. Underlying mass cannot be excluded. Chronic hypoxic aspiratory secondary COPD on home oxygen at 4 L via nasal [place]. Acute urinary tracts infection suspected Left proximal humerus fracture Pulmonary fibrosis History of rheumatoid arthritis Obstructive sleep apnea on CPAP at home Osteoarthritis Hyperlipidemia Anxiety/depression Chronic CHF with preserved ejection fraction Prior history of smoking DVT prophylaxis with heparin subcu Plan: Continue with antibiotic ceftriaxone Continue with Solu-Medrol Continue ceftriaxone Pulmonary team on the case Patient was possible lung mass, surgical candidate for pulmonary team, patient informed about pulmonary team recommendation and he is agreeable. Patient may benefit from more palliative approach recommended by pulmonology team Labs and medication were reviewed.. Continue same treatment. Continue with symptomatic treatment. Resume home medication. Monitor labs and vitals. DVT and GI prophylaxis. Further recommendations as per clinical course of the patient DVT prophylaxis: Subcutaneous heparin GI Prophylaxis: Pepcid PT/OT: Pending Prognosis is guarded No code
[2022-07-18 14:53] LABS: African American GFR (CKD) 124.9 (60.0-200.0); Anion Gap 8.8 mmol/L (10.00-18.00); BUN/Creat Ratio 23.72 Ratio (12.00-20.00); Calcium 8.7 mg/dL (8.7-10.3); Carbon Dioxide 31.9 mmol/L (20.0-27.5); Non-African American GFR(CKD) 107.7 (60.0-200.0); Potassium 4.3 mmol/L (3.5-5.5)
[2022-07-18] MEDS: MELATONIN 3 MG TABLET PO PRN (20:43)
[2022-07-18] MEDS: AMITRIPTYLINE HCL 10 MG TAB PO SCH (20:43)
[2022-07-18] MEDS: ATORVASTATIN 40 MG TAB PO SCH (20:43)
[2022-07-19] MEDS: HYDROcodone/APAP 7.5-325MG 1 EACH TAB PO PRN ×3 (02:29→17:48)
[2022-07-19] MEDS: PANTOPRAZOLE 40 MG TABLET PO SCH (06:34)
[2022-07-19] MEDS: FORMOTEROL FUMARATE 20 MCG/2 ML NEBU INHALATION SCH ×2 (07:27→19:33)
[2022-07-19] MEDS: IPRATROPIUM-ALBUTEROL 3 ML NEB INHALATION SCH ×4 (07:27→19:33)
[2022-07-19] MEDS: BUDESONIDE 1 MG/2 ML NEBU INHALATION SCH ×2 (07:27→19:33)
[2022-07-19] MEDS: methylPREDNISolone SOD SUCCI 40 MG/ML 1 ML VIAL IV SCH ×2 (10:45→15:47)
[2022-07-19] MEDS: METOPROLOL SUCCINATE (ER) 25 MG TAB.ER.24H PO SCH (10:45)
[2022-07-19] MEDS: CHOLECALCIFEROL 25 MCG (1000 IU) TABLET PO SCH (10:45)
[2022-07-19] MEDS: SERTRALINE 50 MG TAB PO SCH (10:45)
--- NOTE | 2022-07-19 11:43 | P.PN ---
Subjective Progress Note Date: 07/19/22 This is a very pleasant 71-year-old male patient with a known history of hyperlipidemia, anxiety, rheumatoid arthritis, pulmonary fibrosis suspect secondary to the rheumatoid arthritis, chronic obstructive pulmonary disease from chronic tobacco dependence however he quit approximately 6 years ago. His FEV1 value is 46% of predicted. He's been maintained on Trelegy, albuterol nebulized treatments in the outpatient setting. He presented here to the emergency room earlier this week and wastreated for pneumonia. He presented here again yesterday with worsening shortness of breath, cough and congestion. He had also been discharged home from here on 06/30/2022 following a COPD exacerbation. Since that time he had fallen at home and broken his right shoulder. It is currently in a sling. Chest x-ray shows left perihilar density. Underlying mass not excluded. today's chest x-ray shows persistent interstitial prominence throughout both lung brown. Left perihilar infiltrate/mass persist and is unchanged. He is seen today in consultation on the regular medical floor. He is currently sitting up in bed. Awake and alert. He is dyspneic with conversation. Dyspneic with minimal exertion. He is quite frail. He has a large protruding umbilical hernia noted. She had been turned up to 10 L high flow nasal cannula with O2 saturations at 95%. Currently down to 8 L at 92%. We are accepting of 88% or higher based on his poor lung function. He is currently afebrile. Hemodynamically stable. He's been initiated on DuoNeb inhalations, Pulmicort and Perforomist inhalations, home prednisone dose at 2.5 mg daily antibiotics in the form of ceftriaxone and azithromycin. White count 13.8. Hemoglobin 11.6. Sodium 133. Potassium 4.2. BUN 19. Creatinine 0.57. Glucose 125. Mack virus by PCR not detected. Influenza screen negative. Pro-calcitonin pending. Reevaluated today on 07/15/22, patient is feeling better, however he is still requiring 7 L of oxygen via nasal cannula, O2 saturation is fluctuating anywhere between 85% up to 98%. Clinically however the patient is feeling better, breathing a lot easier. WBC count is 9.2 hemoglobin is 9.5. Electrolytes are normal. Renal profile is normal. Pro-calcitonin level was minimally increased at 0.12, doubt clinical significance of pro-calcitonin level of 0.12. The patient is seen today 07/16/2022 in follow-up on the regular medical floor. He is currently resting fairly comfortably in bed. Awake and alert in no acute distress. Family is at the bedside. If he is currently maintaining O2 saturations in the low 90s on 7 L high flow nasal cannula. 0.9 normal saline at 30 MLS per hour. Blood cultures revealing no growth to date. White count 10.7. Hemoglobin 9.4. Platelets 297. Sodium 140. Potassium 4.7. BUN 15. Creatinine 0.5. Glucose 105. He is continued on DuoNeb inhalations, Pulmicort and Perforomist inhalations, IV Solu-Medrol. Antibiotics in the form of ceftriaxone. Morphine and [place] for pain control. The patient is seen today 07/17/2022 follow-up on the regular medical floor. He is awake and alert in no acute distress. Feeling a bit better today compared to yesterday. He is currently on 6 L high flow nasal cannula. He is working with PT/OT. To be up in a chair as tolerated. He is continued on DuoNeb inhalations, Pulmicort and Perforomist inhalations, IV Solu-Medrol. Antibiotics in the form of ceftriaxone. Morphine and [place] for pain control. The patient is seen today 07/18/2022 in follow-up on the regular medical floor. Today he is quite somnolent. He was restless and somewhat combative throughout the night. He did receive Ambien about 10 PM. He is arousable. He is taking his medications with applesauce. He is quite frail and cachectic. Currently on 7 L high flow nasal cannula with O2 saturations in the upper 90s. He is afebrile. Hemodynamically stable. Blood cultures reveal no growth. Urine culture pending. white count 10.5. Hemoglobin 10.8. Urinalysis with moderate bacteria. He is currently on ceftriaxone. He remains on DuoNeb inhalations, Pulmicort and Perforomist inhalations, IV Solu-Medrol. The patient is seen today 07/19/2022 in follow-up on the regular medical floor. He is much more awake and alert today. Oriented. Blood cultures reveal no growth. Urine culture revealed no growth. He remains on DuoNeb inhalations, Pulmicort and Perforomist inhalations, IV Solu-Medrol. Objective - Vital Signs Vital signs: Vital Signs Temp 97.8 F 07/19/22 08:00 Pulse 96 07/19/22 11:21 Resp 17 07/19/22 08:00 BP 101/56 07/19/22 08:00 Pulse Ox 99 07/19/22 08:00 FiO2 5 07/14/22 07:36 Intake & Output 07/18/22 07/19/22 07/19/22 18:59 06:59 18:59 Intake Total 50 320 Output Total 300 Balance 50 20 Intake: Intake, IV Titration 50 Amount cefTRIAXone 1 gm In 50 Sodium Chloride 0.9% 50 ml @ 100 mls/hr IVPB Q24H [facility] Rx#:[id number] Oral 320 Output: Urine 300 Other: Voiding Method Diaper # Voids 1 - Exam GENERAL EXAM: Alert, pleasant 71-year-old male, frail, cachectic, on 7 L high flow nasal cannula, fairly comfortable in no apparent distress. HEAD: Normocephalic. EYES: Normal reaction of pupils, equal size. NOSE: Clear with pink turbinates. THROAT: No erythema or exudates. NECK: No masses, no JVD. CHEST: No chest wall deformity. LUNGS: Equal air entry with coarse crackles in the posterior bases. CVS: S1 and S2 normal with no audible murmur, regular rhythm. ABDOMEN: Large protruding umbilical hernia. No hepatosplenomegaly, normal bowel sounds, no guarding or rigidity. SPINE: Kyphosis SKIN: Ecchymosis of the right upper extremity No rashes CENTRAL NERVOUS SYSTEM: No focal deficits, tone is normal in all 4 extremities. EXTREMITIES: Fracture right shoulder currently in a sling. Changes of rheumatoid arthritis. There is no peripheral edema. - Labs CBC & Chem 7: 07/18/22 10:11 07/18/22 10:04 Labs: Abnormal Lab Results - Last 24 Hours (Table) 07/18/22 Range/Units 10:04 Carbon Dioxide 31.9 H (20.0-27.5) mmol/L Anion Gap 8.80 L (10.00-18.00) mmol/L Creatinine 0.5 L (0.6-1.5) mg/dL BUN/Creatinine Ratio 23.72 H (12.00-20.00) Ratio Microbiology - Last 24 Hours (Table) 07/13/22 13:30 Blood Culture - Preliminary Blood No Growth after 120 hours 07/13/22 13:45 Blood Culture - Preliminary Blood No Growth after 120 hours Assessment and Plan Assessment: Acute on chronic hypoxemic respiratory failure, secondary to COPD exacerbation, and complicated by left-sided pneumonia. Chronic left upper lobe infiltrate/mass. Could not rule out neoplasm however the patient is to frail for any intervention or biopsies History of severe oxygen-dependent, steroid dependent COPD. Pulmonary fibrosis, suspect secondary to rheumatoid arthritis. Urinary tract infection. Currently on ceftriaxone. Recent fall with fracture to the right upper extremity. History of CHF. History of hyperlipidemia. History of osteoarthritis. History of rheumatoid arthritis. History of sleep apnea syndrome, maintained on CPAP. History of perforated duodenal ulcer. History of anxiety/depression. Previous history of heavy tobacco use. Poor overall functional status based on the above-mentioned multiple comorbidities. Plan: The patient was seen and evaluated More awake and alert today Labs and medications reviewed Discontinue IV Solu-Medrol, initiate prednisone taper Titrate down the FiO2 as tolerated, currently on 7 L high flow nasal cannula Poor prognosis, may consider palliative/hospice DO NOT RESUSCITATE/DO NOT INTUBATE CODE STATUS per his request I have personally seen and examined the patient, performed the documentation and the assessment and plan as written. Number of minutes spent on the visit: 10.
[2022-07-19 12:21] VITALS: BMI 19.9
--- NOTE | 2022-07-19 13:25 | P.PN ---
Subjective Patient is a 71-year-old male with a known history of COPD on home oxygen, osteoarthritis, hyperlipidemia, rheumatoid arthritis, obstructive sleep apnea, chronic back pain and anxiety/depression prior history of smoking presents to ER with complaints of worsening shortness of breath. Patient was desaturating at home and oxygen on turn up to 10 L at home. Patient has been having cough but unable to bring out any sputum. Patient has Poor functional status. Patient was recently discharged from the hospital on 06/30/2022. Patient was treated for acute COPD exacerbation and pneumonia and was discharged home on Omnicef and azithromycin. Patient states that he fell on Saturday and fractured his right proximal humerus and was placed on sling while in the ER. Patient has been having worsening shortness of breath and pain and came to ER. Chest x-ray showed persistent interstitial Prominence throughout both lungs. Left perihilar infiltrate or mass persists unchanged. Correlate clinically and progress studies recommended. EKG showed sinus rhythm. Laboratory pressure WBC 13.8 hemoglobin 11.6 and platelets 252 Sodium 133 potassium 4.2 chloride 98 bicarb is 30 BUN 19 and creatinine 0.57 and albumin 3.2 Coronavirus PCR not detected. 07/14/2022 Patient is currently lying in bed. Awake alert and oriented. Still having shortness of breath but improved clinically. Cough with whitish sputum production. Patient has been afebrile. Currently requiring oxygen at 8 L via nasal cannula. No nausea vomiting abdominal pain or diarrhea. Right humerus sling in place and pain is fairly controlled. No chest pain. No headache or dizziness or lightheadedness. Patient was seen by pulmonary. Continue on steroids changed to IV. Patient is also on antibiotics azithro. ceftriaxone. 07/15/2022 Patient is currently lying in bed. Awake alert and oriented. Breathing status is better. Currently requiring 7 L oxygen via nasal cannula. No complaints of worsening shortness of breath. Cough without any sputum production. No headache or dizziness lightheadedness. No complaints of right shoulder pain. Sling in place. Patient has been afebrile. Laboratory data showed WBC 9.23 hemoglobin 9.4 and platelets 285 Sodium 140 potassium 4.8 chloride 101 bicarb is 31.9 BUN 16.7 creatinine 0.5. Calcium 8.6. Patient is being continued on antibiotics at home of ceftriaxone. IV steroids and duo nebs. Pulmonary is on board. 07/16/2020 Patient still wheezing and he still on 9 down to 7 L/m of oxygen. Hemoglobin stable 9.4, WBC 10 while his with IV Solu-Medrol 40 mg Also he is on ceftriaxone and normal saline at 50 mL per hour I talked to the patient about possible lung mass and recommendation of glycerin operator to hold off on any biopsy or procedure for now and he is agreeable. Pulmonary team on the case 07/17/2022 Patient seen in bed, is still short of breath and tachypneic but he can talk freely. This morning he was saturating 99% on 11 L oxygen via nasal cannula Pulmonary on the case Remains on ceftriaxone, Solu-Medrol 40 mg and normal saline at 30 mL/h. 07/18/2022 Patient still tachypneic and still he needs 7 L of oxygen via nasal cannula, chest x-ray showing COPD and bilateral interstitial infiltrates was suspicion for perihilar mass.Also has evidence of pulmonary fibrosis and this was sent for left humerus fracture. Yesterday the was concerned about UTI and urine analysis was suspicion for infection site was started on ceftriaxone and urine culture is pending. She requested that the patient started on Ambien we give him half tablets of 2.5 mg and is more sleepy today for recurrent surgery to melatonin. patient is not improving well and pulmonary team recommended to consider hospice care/palliative care 07/19/2022 Patient is not a more sleepy as he used to be after we stopped his Ambien. 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 History of respiratory distress. He still on 7 L/m of oxygen this morning, but he was saturating 99% so she had marked might be him and down. rest of labs, vitals and medications reviewed I discussed the plan of care with the Jeanine including the recommendation for palliative care and hospice for pulmonary team, the does not want to start hospice now and he wants to take the patient home when he is ready. Over the will consider palliative care consult as an outpatient, patient will be discussed with rehabilitation case coordinator We will keep the treatment, he was ceftriaxone, steroids, currently on IV Solu- Medrol 40 mg . Objective - Vital Signs Vital signs: Vital Signs Temp 97.8 F 07/19/22 08:00 Pulse 96 07/19/22 11:21 Resp 17 07/19/22 08:00 BP 101/56 07/19/22 08:00 Pulse Ox 99 07/19/22 08:00 FiO2 5 07/14/22 07:36 Intake & Output 07/18/22 07/19/22 07/19/22 18:59 06:59 18:59 Intake Total 50 320 Output Total 300 Balance 50 20 Weight 56.109 kg Intake: Intake, IV Titration 50 Amount cefTRIAXone 1 gm In 50 Sodium Chloride 0.9% 50 ml @ 100 mls/hr IVPB Q24H [facility] Rx#:[id number] Oral 320 Output: Urine 300 Other: Voiding Method Diaper Diaper # Voids 1 - Exam -GENERAL: The patient is alert and oriented, more sleepy today not in any acute distress. Well developed, well nourished. Thin built HEENT: Pupils are round and equally reacting to light. EOMI. No scleral icterus. No conjunctival pallor. Normocephalic, atraumatic. No pharyngeal erythema. No thyromegaly. CARDIOVASCULAR: S1 and S2 present. No murmurs, rubs, or gallops. -PULMONARY: Chest is clear to auscultation, no crackles. Tachypneic which short of breath. Bilateral scattered wheezing ABDOMEN: Soft, nontender, nondistended, normoactive bowel sounds. No palpable organomegaly. MUSCULOSKELETAL: No joint swelling or deformity. EXTREMITIES: No cyanosis, clubbing, or pedal edema. NEUROLOGICAL: Gross neurological examination did not reveal any focal deficits. SKIN: No rashes. no petechiae. - Labs CBC & Chem 7: 07/18/22 10:11 07/18/22 10:04 Labs: Abnormal Lab Results - Last 24 Hours (Table) 07/18/22 Range/Units 10:04 Carbon Dioxide 31.9 H (20.0-27.5) mmol/L Anion Gap 8.80 L (10.00-18.00) mmol/L Creatinine 0.5 L (0.6-1.5) mg/dL BUN/Creatinine Ratio 23.72 H (12.00-20.00) Ratio Microbiology - Last 24 Hours (Table) 07/13/22 13:30 Blood Culture - Preliminary Blood No Growth after 120 hours 07/13/22 13:45 Blood Culture - Preliminary Blood No Growth after 120 hours Assessment and Plan Assessment: Acute on chronic hypoxic respiratory failure secondary to COPD exacerbation Pneumonia with persistent interstitial prominence of both legs and left perihilar filtrate. Underlying mass cannot be excluded. Chronic hypoxic aspiratory secondary COPD on home oxygen at 4 L via nasal cannula. Acute urinary tracts infection suspected Left proximal humerus fracture Pulmonary fibrosis History of rheumatoid arthritis Obstructive sleep apnea on CPAP at home Osteoarthritis Hyperlipidemia Anxiety/depression Chronic CHF with preserved ejection fraction Prior history of smoking DVT prophylaxis with heparin subcu Plan: i discussed the case with the , she wants to do palliative consult as outpatient Continue with antibiotic ceftriaxone Continue with Solu-Medrol Continue ceftriaxone Pulmonary team on the case Patient was possible lung mass, surgical candidate for pulmonary team, patient informed about pulmonary team recommendation and he is agreeable. Patient may benefit from more palliative approach recommended by pulmonology team Labs and medication were reviewed.. Continue same treatment. Continue with symptomatic treatment. Resume home medication. Monitor labs and vitals. DVT and GI prophylaxis. Further recommendations as per clinical course of the patient DVT prophylaxis: Subcutaneous heparin GI Prophylaxis: Pepcid PT/OT: Pending Prognosis is guarded No code
[2022-07-19] MEDS: AMITRIPTYLINE HCL 10 MG TAB PO SCH (22:07)
[2022-07-19] MEDS: MELATONIN 3 MG TABLET PO PRN (22:07)
[2022-07-19] MEDS: ATORVASTATIN 40 MG TAB PO SCH (22:07)
[2022-07-20] MEDS: methylPREDNISolone SOD SUCCI 40 MG/ML 1 ML VIAL IV SCH ×2 (02:22→11:12)
[2022-07-20] MEDS: PANTOPRAZOLE 40 MG TABLET PO SCH (06:08)
[2022-07-20] MEDS: BUDESONIDE 1 MG/2 ML NEBU INHALATION SCH (08:18)
[2022-07-20] MEDS: FORMOTEROL FUMARATE 20 MCG/2 ML NEBU INHALATION SCH (08:18)
[2022-07-20] MEDS: IPRATROPIUM-ALBUTEROL 3 ML NEB INHALATION SCH ×4 (08:18→21:29)
[2022-07-20] MEDS: SERTRALINE 50 MG TAB PO SCH (09:54)
[2022-07-20] MEDS: METOPROLOL SUCCINATE (ER) 25 MG TAB.ER.24H PO SCH (09:54)
[2022-07-20] MEDS: CLOPIDOGREL 75 MG TAB PO SCH (09:54)
[2022-07-20] MEDS: CHOLECALCIFEROL 25 MCG (1000 IU) TABLET PO SCH (09:54)
[2022-07-20] MEDS: HYDROcodone/APAP 7.5-325MG 1 EACH TAB PO PRN ×2 (11:37→17:43)
--- NOTE | 2022-07-20 12:03 | P.PN ---
Subjective Progress Note Date: 07/20/22 This is a very pleasant 71-year-old male patient with a known history of hyperlipidemia, anxiety, rheumatoid arthritis, pulmonary fibrosis suspect secondary to the rheumatoid arthritis, chronic obstructive pulmonary disease from chronic tobacco dependence however he quit approximately 6 years ago. His FEV1 value is 46% of predicted. He's been maintained on Trelegy, albuterol nebulized treatments in the outpatient setting. He presented here to the emergency room earlier this week and wastreated for pneumonia. He presented here again yesterday with worsening shortness of breath, cough and congestion. He had also been discharged home from here on 06/30/2022 following a COPD exacerbation. Since that time he had fallen at home and broken his right shoulder. It is currently in a sling. Chest x-ray shows left perihilar density. Underlying mass not excluded. today's chest x-ray shows persistent interstitial prominence throughout both lung brown. Left perihilar infiltrate/mass persist and is unchanged. He is seen today in consultation on the regular medical floor. He is currently sitting up in bed. Awake and alert. He is dyspneic with conversation. Dyspneic with minimal exertion. He is quite frail. He has a large protruding umbilical hernia noted. She had been turned up to 10 L high flow nasal cannula with O2 saturations at 95%. Currently down to 8 L at 92%. We are accepting of 88% or higher based on his poor lung function. He is currently afebrile. Hemodynamically stable. He's been initiated on DuoNeb inhalations, Pulmicort and Perforomist inhalations, home prednisone dose at 2.5 mg daily antibiotics in the form of ceftriaxone and azithromycin. White count 13.8. Hemoglobin 11.6. Sodium 133. Potassium 4.2. BUN 19. Creatinine 0.57. Glucose 125. Mack virus by PCR not detected. Influenza screen negative. Pro-calcitonin pending. Reevaluated today on 07/15/22, patient is feeling better, however he is still requiring 7 L of oxygen via nasal cannula, O2 saturation is fluctuating anywhere between 85% up to 98%. Clinically however the patient is feeling better, breathing a lot easier. WBC count is 9.2 hemoglobin is 9.5. Electrolytes are normal. Renal profile is normal. Pro-calcitonin level was minimally increased at 0.12, doubt clinical significance of pro-calcitonin level of 0.12. The patient is seen today 07/16/2022 in follow-up on the regular medical floor. He is currently resting fairly comfortably in bed. Awake and alert in no acute distress. Family is at the bedside. If he is currently maintaining O2 saturations in the low 90s on 7 L high flow nasal cannula. 0.9 normal saline at 30 MLS per hour. Blood cultures revealing no growth to date. White count 10.7. Hemoglobin 9.4. Platelets 297. Sodium 140. Potassium 4.7. BUN 15. Creatinine 0.5. Glucose 105. He is continued on DuoNeb inhalations, Pulmicort and Perforomist inhalations, IV Solu-Medrol. Antibiotics in the form of ceftriaxone. Morphine and [place] for pain control. The patient is seen today 07/17/2022 follow-up on the regular medical floor. He is awake and alert in no acute distress. Feeling a bit better today compared to yesterday. He is currently on 6 L high flow nasal cannula. He is working with PT/OT. To be up in a chair as tolerated. He is continued on DuoNeb inhalations, Pulmicort and Perforomist inhalations, IV Solu-Medrol. Antibiotics in the form of ceftriaxone. Morphine and [place] for pain control. The patient is seen today 07/18/2022 in follow-up on the regular medical floor. Today he is quite somnolent. He was restless and somewhat combative throughout the night. He did receive Ambien about 10 PM. He is arousable. He is taking his medications with applesauce. He is quite frail and cachectic. Currently on 7 L high flow nasal cannula with O2 saturations in the upper 90s. He is afebrile. Hemodynamically stable. Blood cultures reveal no growth. Urine culture pending. white count 10.5. Hemoglobin 10.8. Urinalysis with moderate bacteria. He is currently on ceftriaxone. He remains on DuoNeb inhalations, Pulmicort and Perforomist inhalations, IV Solu-Medrol. The patient is seen today 07/19/2022 in follow-up on the regular medical floor. He is much more awake and alert today. Oriented. Blood cultures reveal no growth. Urine culture revealed no growth. He remains on DuoNeb inhalations, Pulmicort and Perforomist inhalations, IV Solu-Medrol. The patient is seen today 07/20/2022 in follow-up on the regular medical floor. He is awake and alert in no acute distress this morning. He is maintaining O2 saturations in the mid 90s on 6 L/m per nasal cannula. He is afebrile. Hemodynamically stable. He does remain quite weak and frail. Blood cultures reveal no growth. Urine culture pending. No new labs today. He is continued on DuoNeb inhalations, Pulmicort and Perforomist inhalations, IV Solu-Medrol. Objective - Vital Signs Vital signs: Vital Signs Temp 97.4 F L 07/20/22 08:00 Pulse 89 07/20/22 11:53 Resp 16 07/20/22 08:00 BP 113/68 07/20/22 08:00 Pulse Ox 95 07/20/22 08:18 FiO2 5 07/14/22 07:36 Intake & Output 07/19/22 07/20/22 07/20/22 18:59 06:59 18:59 Intake Total 50 Balance 50 Weight 56.109 kg Intake: Intake, IV Titration 50 Amount cefTRIAXone 1 gm In 50 Sodium Chloride 0.9% 50 ml @ 100 mls/hr IVPB Q24H [facility] Rx#:[id number] Other: Voiding Method Diaper Diaper # Voids 5 - Exam GENERAL EXAM: Alert, pleasant 71-year-old male, frail, cachectic, on 6 L high flow nasal cannula, fairly comfortable in no apparent distress. HEAD: Normocephalic. EYES: Normal reaction of pupils, equal size. NOSE: Clear with pink turbinates. THROAT: No erythema or exudates. NECK: No masses, no JVD. CHEST: No chest wall deformity. LUNGS: Equal air entry with coarse crackles in the posterior bases. CVS: S1 and S2 normal with no audible murmur, regular rhythm. ABDOMEN: Large protruding umbilical hernia. No hepatosplenomegaly, normal bowel sounds, no guarding or rigidity. SPINE: Kyphosis SKIN: Ecchymosis of the right upper extremity No rashes CENTRAL NERVOUS SYSTEM: No focal deficits, tone is normal in all 4 extremities. EXTREMITIES: Fracture right shoulder currently in a sling. Changes of rheumatoid arthritis. There is no peripheral edema. - Labs CBC & Chem 7: 07/18/22 10:11 07/18/22 10:04 Labs: Microbiology - Last 24 Hours (Table) 07/13/22 13:45 Blood Culture - Final Blood No Growth after 144 hours 07/13/22 13:30 Blood Culture - Final Blood No Growth after 144 hours Assessment and Plan Assessment: Acute on chronic hypoxemic respiratory failure, secondary to COPD exacerbation, and complicated by left-sided pneumonia. Chronic left upper lobe infiltrate/mass. Could not rule out neoplasm however the patient is to frail for any intervention or biopsies History of severe oxygen-dependent, steroid dependent COPD. Pulmonary fibrosis, suspect secondary to rheumatoid arthritis. Urinary tract infection. Currently on ceftriaxone. Recent fall with fracture to the right upper extremity. History of CHF. History of hyperlipidemia. History of osteoarthritis. History of rheumatoid arthritis. History of sleep apnea syndrome, maintained on CPAP. History of perforated duodenal ulcer. History of anxiety/depression. Previous history of heavy tobacco use. Poor overall functional status based on the above-mentioned multiple comorbidities. Plan: The patient was seen and evaluated More awake and alert today Medications reviewed Discontinue Pulmicort and Perforomist, resume Symbicort Discontinue IV Solu-Medrol, initiate prednisone taper Titrate down the FiO2 as tolerated, currently on 6 L high flow nasal cannula Plan is for home with palliative care I have personally seen and examined the patient, performed the documentation and the assessment and plan as written. Number of minutes spent on the visit: 10.
[2022-07-20] MEDS: AMITRIPTYLINE HCL 10 MG TAB PO SCH (21:09)
[2022-07-20 21:22] LABS: Appearance,Urine Cloudy (Clear); Bacteria,Urine Many /hpf; Bilirubin,Urine Negative (Negative); Blood,Urine Small (Negative); Color,Urine Yellow; Glucose,Urine (UA) Negative (Negative); Ketones,Urine Negative (Negative); Leukocyte Esterase,Urine Large (Negative); Mucus,Urine Occasional /hpf; Nitrite,Urine Negative (Negative); Protein,Urine Negative (Negative); RBC,Urine 9 /hpf (0-5); Specific Gravity,Urine 1.018 (1.001-1.035); Squamous Epithelial Cell,Urine <1 /hpf (0-4); Uric Acid Crystals,Urine Rare /hpf; Urobilinogen,Urine <2.0 mg/dL (<2.0); WBC,Urine 73 /hpf (0-5)
[2022-07-20] MEDS: SYMBICORT 160-4.5 MCG INHALER INHALATION SCH (21:29)
--- NOTE | 2022-07-20 22:17 | P.CONS ---
History of Present Illness - Reason for Consult Consult date: 07/20/22 - History of Present Illness Patient is a 71-year-old male with a past medical he significant for COPD presenting to the hospital about a week ago on 07/13/2022 and this patient was in the hospital with difficulty in breathing, patient symptom has been getting worse for few days before presentation to the hospital patient also have a cough productive of some greenish sputum denies any hemoptysis and no pleuriti c chest pain patient on presentation to the hospital was afebrile and no fever has been recorded subsequently patient is currently on 6 L nasal cannula patient did have a white count of 13.8 on admission subsequently has normalized creatinine has been normal liver enzymes are normal patient did have a positive UA on 17 July which has been finalized with VRE that has prompted this infectious disease consultation patient currently denies having difficulty urination however has been complaining of some burning of urination but no suprapubic or flank pain denies having any nausea no vomiting Past Medical History Past Medical History: Heart Failure, COPD, Hyperlipidemia, Osteoarthritis (OA), Pneumonia, Rheumatoid Arthritis (RA), Sleep Apnea/CPAP/BIPAP Additional Past Medical History / Comment(s): COPD, chronic hypoxic respiratory failure previous history of pneumoperitoneum related to a perforated duodenal ulcer, repair of an umbilical hernia, chronic back pain, back stenosis, History of Any Multi-Drug Resistant Organisms: None Reported Past Surgical History: Orthopedic Surgery Additional Past Surgical History / Comment(s): colonoscopy, repair of a perforated duodenal ulcer and repair of an incarcerated umbilical hernia, left knee arthroscopy Past Anesthesia/Blood Transfusion Reactions: No Reported Reaction Smoking Status: Former smoker - Past Family History Father Family Medical History: Cancer Additional Family Medical History / Comment(s): Father of leukemia. Mother Family Medical History: Cancer, CVA/TIA, Dementia, Diabetes Mellitus Additional Family Medical History / Comment(s): Mother is 88yrs old with history of dementia and colon cancer. Sister(s) Additional Family Medical History / Comment(s): Patient 3 sons with no major medical problems. Medications and Allergies Home Medications Medication Instructions Recorded Confirmed Type Metoprolol Succinate [Toprol XL] 25 mg PO DAILY 01/12/20 07/13/22 History Sertraline [Zoloft] 150 mg PO DAILY 01/12/20 07/13/22 History Amitriptyline HCl [Elavil] 10 mg PO HS 12/06/20 07/13/22 History Clopidogrel [Plavix] 75 mg PO DAILY #14 tab 12/13/20 07/13/22 Rx Fluticasone Nasal [place] [Flonase 1 spr EA NOSTRIL BID PRN 07/10/21 07/13/22 History Nasal [place]] Alendronate Sodium [Fosamax] 70 mg PO MO 03/03/22 07/13/22 History Atorvastatin [Lipitor] 40 mg PO HS 03/03/22 07/13/22 History Omeprazole 40 mg PO DAILY 03/03/22 07/13/22 History predniSONE 2.5 mg PO DAILY 03/03/22 07/13/22 History Budesonide [Pulmicort] 0.5 mg INHALATION RT-BID 06/27/22 07/13/22 History Cholecalciferol (Vitamin D3) 75 mcg PO DAILY 07/13/22 07/13/22 History [Vitamin D3 (3000 Iu)] Docusate [Colace] 100 mg PO DAILY PRN 07/13/22 07/13/22 History Albuterol Inhaler [Ventolin Hfa 1 - 2 puff INHALATION Q6H PRN #1 07/20/22 Rx Inhaler] each Budesonide-Formot 160-4.5 Mcg 2 puff INHALATION RT-BID #1 each 07/20/22 Rx [Symbicort 160-4.5 Mcg Inhaler] Docusate [Colace] 100 mg PO BID PRN 10 Days #20 cap 07/20/22 Rx HYDROcodone/APAP 5-325MG [[place] 1 tab PO Q8HR PRN 3 Days #10 tab 07/20/22 Rx 5-325] predniSONE 10 mg PO DIRECTED #50 tab 07/20/22 Rx Allergies Allergy/AdvReac Type Severity Reaction Status Date / Time amoxicillin AdvReac Nausea & Verified 07/13/22 16:08 Vomiting Physical Exam Vitals: Vital Signs Temp Pulse Pulse Resp BP Pulse Ox 07/20/22 20:00 97.5 F L 97 19 109/62 92 L 07/20/22 19:45 97 19 07/20/22 16:02 88 07/20/22 15:52 91 07/20/22 14:58 93 96 07/20/22 14:44 93 L 07/20/22 14:00 97.8 F 95 17 111/68 93 L 07/20/22 13:52 93 93 L 07/20/22 13:49 85 L 07/20/22 11:53 89 07/20/22 11:42 91 07/20/22 10:52 83 07/20/22 08:39 81 07/20/22 08:29 83 07/20/22 08:18 84 95 07/20/22 08:00 97.4 F L 76 16 113/68 98 07/20/22 02:00 97.3 F L 84 18 116/63 97 Intake and Output 07/20/22 07/20/22 07/20/22 06:59 14:59 22:59 Other: Voiding Method Diaper External Catheter # Voids 5 6 Weight 56.109 kg Results CBC & Chem 7: 07/18/22 10:11 07/18/22 10:04 Labs: Abnormal Lab Results - Last 24 Hours (Table) 07/20/22 Range/Units 20:00 Urine Blood Small H (Negative) Ur Leukocyte Esterase Large H (Negative) Urine RBC 9 H (0-5) /hpf Urine WBC 73 H (0-5) /hpf Uric Acid Crystals Rare H (None) /hpf Urine Bacteria Many H (None) /hpf Urine Mucus Occasional H (None) /hpf Microbiology - Last 24 Hours (Table) 07/17/22 18:00 Urine Culture - Final Urine,Voided Enterococcus faecium VRE Assessment and Plan Plan: 1patient with a positive UA subsequent urine culture positive for VRE in this patient does give a history of burning of urine but no significant suprapubic or flank pain question of possible cystitis. 2we will repeat his urine culture. 3we will start the patient on daptomycin 4 mg/kg daily while waiting for repeat urine to be finalized. We will follow on clinical condition and cultures to further adjust medication if needed Thank you for this consultation will follow this patient along with you Time with Patient: Greater than 30
--- NOTE | 2022-07-21 05:31 | P.DS ---
Providers Date of admission: 07/13/22 14:36 Attending physician: Ira Steinberg Consults: 07/13/22 14:36 Consult Physician Routine Consulting Provider: Gabbie Santos Consult Reason/Comments: dyspnea Do you want consulting provider notified?: Yes Primary care physician: Razia Holbrook [facility] Course: Discussed her this not as progress note Patient is a 71-year-old male with a known history of COPD on home oxygen, osteoarthritis, hyperlipidemia, rheumatoid arthritis, obstructive sleep apnea, chronic back pain and anxiety/depression prior history of smoking presents to ER with complaints of worsening shortness of breath. Patient was desaturating at home and oxygen on turn up to 10 L at home. Patient has been having cough but unable to bring out any sputum. Patient has Poor functional status. Patient was recently discharged from the hospital on 06/30/2022. Patient was treated for acute COPD exacerbation and pneumonia and was discharged home on Omnicef and azithromycin. Patient states that he fell on Saturday and fractured his right proximal humerus and was placed on sling while in the ER. Patient has been having worsening shortness of breath and pain and came to ER. Chest x-ray showed persistent interstitial Prominence throughout both lungs. Left perihilar infiltrate or mass persists unchanged. Correlate clinically and progress studies recommended. EKG showed sinus rhythm. Laboratory pressure WBC 13.8 hemoglobin 11.6 and platelets 252 Sodium 133 potassium 4.2 chloride 98 bicarb is 30 BUN 19 and creatinine 0.57 and albumin 3.2 Coronavirus PCR not detected. 07/14/2022 Patient is currently lying in bed. Awake alert and oriented. Still having shortness of breath but improved clinically. Cough with whitish sputum production. Patient has been afebrile. Currently requiring oxygen at 8 L via nasal cannula. No nausea vomiting abdominal pain or diarrhea. Right humerus sling in place and pain is fairly controlled. No chest pain. No headache or dizziness or lightheadedness. Patient was seen by pulmonary. Continue on steroids changed to IV. Patient is also on antibiotics azithro. ceftriaxone. 07/15/2022 Patient is currently lying in bed. Awake alert and oriented. Breathing status is better. Currently requiring 7 L oxygen via nasal cannula. No complaints of worsening shortness of breath. Cough without any sputum production. No headache or dizziness lightheadedness. No complaints of right shoulder pain. Sling in place. Patient has been afebrile. Laboratory data showed WBC 9.23 hemoglobin 9.4 and platelets 285 Sodium 140 potassium 4.8 chloride 101 bicarb is 31.9 BUN 16.7 creatinine 0.5. Calcium 8.6. Patient is being continued on antibiotics at home of ceftriaxone. IV steroids and duo nebs. Pulmonary is on board. 07/16/2020 Patient still wheezing and he still on 9 down to 7 L/m of oxygen. Hemoglobin stable 9.4, WBC 10 while his with IV Solu-Medrol 40 mg Also he is on ceftriaxone and normal saline at 50 mL per hour I talked to the patient about possible lung mass and recommendation of facing end trimmer to hold off on any biopsy or procedure for now and he is agreeable. Pulmonary team on the case 07/17/2022 Patient seen in bed, is still short of breath and tachypneic but he can talk freely. This morning he was saturating 99% on 11 L oxygen via nasal cannula Pulmonary on the case Remains on ceftriaxone, Solu-Medrol 40 mg and normal saline at 30 mL/h. 07/18/2022 Patient still tachypneic and still he needs 7 L of oxygen via nasal cannula, chest x-ray showing COPD and bilateral interstitial infiltrates was suspicion for perihilar mass.Also has evidence of pulmonary fibrosis and this was sent for left humerus fracture. Yesterday the was concerned about UTI and urine analysis was suspicion for infection site was started on c eftriaxone and urine culture is pending. She requested that the patient started on Ambien we give him half tablets of 2.5 mg and is more sleepy today for recurrent surgery to melatonin. patient is not improving well and pulmonary team recommended to consider hospice care/palliative care 07/19/2022 Patient is not a more sleepy as he used to be after we stopped his Ambien. Patient also have no pain, no chest pain or arm pain, he can use both hand ciaio lumite injector equally and strongly. History of respiratory distress. He still on 7 L/m of oxygen this morning, but he was saturating 99% so she had marked might be him and down. rest of labs, vitals and medications reviewed I discussed the plan of care with the Jeanine including the recommendation for palliative care and hospice for pulmonary team, the does not want to start hospice now and he wants to take the patient home when he is ready. Over the will consider palliative care consult as an outpatient, patient will be discussed with case sealer We will keep the treatment, he was ceftriaxone, steroids, currently on IV Solu- Medrol 40 mg 07/20/2022 Patient did not show much improvement in his breathing pattern and is requiring 5-7 L/m of oxygen via nasal cannula, currently on 6 L with saturations in the mid 90s percent. Pulmonary input is appreciated, patient was recommended to be discharged home on oral prednisone, palliative/hospice care is suggested for the patient and I discussed with patient and over the phone and patient and agreed to go home today and start Palliative consult as an outpatient. Also appreciated as pulmonary fibrosis and left perihilar pneumonia or mass, patient is not very good surgical candidate for biopsy alternatively patient may benefit from but this Is an Outpatient Ho. However Overall Patient's Prognosis Is Very Guarded, and Pulled on the Long Groin wever patient was complaining of from dysuria and why she would this echo requested to be checked and treated for UTI his urine culture came back positive for VRE, patient with no other urinary complaints, no fever or leukocytosis however his abdomen symptoms therefore we consulted ID team was started the patient on daptomycin with repeat urine culture . patient also has right humerus fracture on sling. 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 -Patient is on home oxygen already - Exam -GENERAL: The patient is alert and oriented, more sleepy today not in any acute distress. Well developed, well nourished. Thin built HEENT: Pupils are round and equally reacting to light. EOMI. No scleral icterus. No conjunctival pallor. Normocephalic, atraumatic. No pharyngeal erythema. No thyromegaly. CARDIOVASCULAR: S1 and S2 present. No murmurs, rubs, or gallops. -PULMONARY: Chest is clear to auscultation, no crackles. Tachypneic which short of breath. Bilateral scattered wheezing ABDOMEN: Soft, nontender, nondistended, normoactive bowel sounds. No palpable organomegaly. MUSCULOSKELETAL: No joint swelling or deformity. -EXTREMITIES: No cyanosis, clubbing, or pedal edema. Right arm in a sling NEUROLOGICAL: Gross neurological examination did not reveal any focal deficits. SKIN: No rashes. no petechiae. Assessment and Plan Assessment: VRE UTI Acute on chronic hypoxic respiratory failure secondary to COPD exacerbation and pulmonary fibrosis, not improving Pneumonia with persistent interstitial prominence of both legs and left perihilar filtrate. Underlying mass cannot be excluded which could be cancerous as well, patient informed Chronic hypoxic aspiratory secondary COPD on home oxygen at 4 L via nasal cannula. Acute urinary tracts infection suspected Left proximal humerus fracture Pulmonary fibrosis History of rheumatoid arthritis Obstructive sleep apnea on CPAP at home Osteoarthritis Hyperlipidemia Anxiety/depression Chronic CHF with preserved ejection fraction Prior history of smoking Plan: i discussed the case with the , she wants to do palliative consult as outpatient Continue with andaptomycin and repeat urine culture Continue with prednisone Pulmonary team on the case Patient was possible lung mass, surgical candidate for pulmonary team, patient informed about pulmonary team recommendation and he is agreeable. Patient may benefit from more palliative approach recommended by pulmonology team Labs and medication were reviewed.. Continue same treatment. Continue with symptomatic treatment. Resume home medication. Monitor labs and vitals. DVT and GI prophylaxis. Further recommendations as per clinical course of the patient DVT prophylaxis: Subcutaneous heparin GI Prophylaxis: Pepcid Prognosis is guarded No code Plan - Discharge Summary Discharge Rx Participant: Yes New Discharge Prescriptions: New predniSONE 10 mg PO DIRECTED #50 tab Budesonide-Formot 160-4.5 Mcg [Symbicort 160-4.5 Mcg Inhaler] 2 puff INHALATION RT-BID #1 each Albuterol Inhaler [Ventolin Hfa Inhaler] 1 - 2 puff INHALATION Q6H PRN #1 each PRN Reason: Shortness Of Breath Or Wheezing Docusate [Colace] 100 mg PO BID PRN 10 Days #20 cap PRN Reason: Constipation HYDROcodone/APAP 5-325MG [Pony 5-325] 1 tab PO Q8HR PRN 3 Days #10 tab PRN Reason: Severe Breakthrough Pain Continue Metoprolol Succinate [Toprol XL] 25 mg PO DAILY Sertraline [Zoloft] 150 mg PO DAILY Clopidogrel [Plavix] 75 mg PO DAILY #14 tab Fluticasone Nasal [place] [Flonase Nasal [place]] 1 spr EA NOSTRIL BID PRN PRN Reason: Congestion Alendronate Sodium [Fosamax] 70 mg PO MO Atorvastatin [Lipitor] 40 mg PO HS predniSONE 2.5 mg PO DAILY Amitriptyline HCl [Elavil] 10 mg PO HS Omeprazole 40 mg PO DAILY Budesonide [Pulmicort] 0.5 mg INHALATION RT-BID Docusate [Colace] 100 mg PO DAILY PRN PRN Reason: Constipation Cholecalciferol (Vitamin D3) [Vitamin D3 (3000 Iu)] 75 mcg PO DAILY Discontinued L.acidoph,Paracasei, B.lactis [Probiotic] 1 cap PO DAILY Discharge Medication List Metoprolol Succinate [Toprol XL] 25 mg PO DAILY 01/12/20 [History] Sertraline [Zoloft] 150 mg PO DAILY 01/12/20 [History] Amitriptyline HCl [Elavil] 10 mg PO HS 12/06/20 [History] Clopidogrel [Plavix] 75 mg PO DAILY #14 tab 12/13/20 [Rx] Fluticasone Nasal [place] [Flonase Nasal [place]] 1 spr EA NOSTRIL BID PRN 07/10/21 [History] Alendronate Sodium [Fosamax] 70 mg PO MO 03/03/22 [History] Atorvastatin [Lipitor] 40 mg PO HS 03/03/22 [History] Omeprazole 40 mg PO DAILY 03/03/22 [History] predniSONE 2.5 mg PO DAILY 03/03/22 [History] Budesonide [Pulmicort] 0.5 mg INHALATION RT-BID 06/27/22 [History] Cholecalciferol (Vitamin D3) [Vitamin D3 (3000 Iu)] 75 mcg PO DAILY 07/13/22 [History] Docusate [Colace] 100 mg PO DAILY PRN 07/13/22 [History] Albuterol Inhaler [Ventolin Hfa Inhaler] 1 - 2 puff INHALATION Q6H PRN #1 each 07/20/22 [Rx] Budesonide-Formot 160-4.5 Mcg [Symbicort 160-4.5 Mcg Inhaler] 2 puff INHALATION RT-BID #1 each 07/20/22 [Rx] Docusate [Colace] 100 mg PO BID PRN 10 Days #20 cap 07/20/22 [Rx] HYDROcodone/APAP 5-325MG [Pony 5-325] 1 tab PO Q8HR PRN 3 Days #10 tab 07/20/22 [Rx] predniSONE 10 mg PO DIRECTED #50 tab 07/20/22 [Rx] Follow up Appointment(s)/Referral(s): Gabbie Santos MD [STAFF PHYSICIAN] - 07/24/22 10:30 am Razia Holbrook MD [Primary Care Provider] - 1-2 days [facility], [NON-STAFF] - 1-2 Days [facility] [NON-STAFF] - As Needed Activity/Diet/Wound Care/Special Instructions: Wheelchair van will shrimp picker at 16:30. Call [phone] if any changes are needed. Discharge Disposition: HOME WITH HOME HEALTH SERVICES
[2022-07-21] MEDS: IPRATROPIUM-ALBUTEROL 3 ML NEB INHALATION SCH ×4 (07:12→21:14)
[2022-07-21] MEDS: SYMBICORT 160-4.5 MCG INHALER INHALATION SCH ×2 (07:14→21:14)
[2022-07-21] MEDS: predniSONE 20 MG TAB PO SCH (07:29)
[2022-07-21] MEDS: SERTRALINE 50 MG TAB PO SCH (07:29)
[2022-07-21] MEDS: CHOLECALCIFEROL 25 MCG (1000 IU) TABLET PO SCH (07:29)
[2022-07-21] MEDS: METOPROLOL SUCCINATE (ER) 25 MG TAB.ER.24H PO SCH (07:29)
[2022-07-21] MEDS: CLOPIDOGREL 75 MG TAB PO SCH (07:29)
[2022-07-21] MEDS: PANTOPRAZOLE 40 MG TABLET PO SCH (07:33)
[2022-07-21] MEDS: HYDROcodone/APAP 7.5-325MG 1 EACH TAB PO PRN ×2 (08:24→22:06)
--- NOTE | 2022-07-21 14:53 | P.PN ---
Subjective Progress Note Date: 07/21/22 This is a very pleasant 71-year-old male patient with a known history of hyperlipidemia, anxiety, rheumatoid arthritis, pulmonary fibrosis suspect secondary to the rheumatoid arthritis, chronic obstructive pulmonary disease from chronic tobacco dependence however he quit approximately 6 years ago. His FEV1 value is 46% of predicted. He's been maintained on Trelegy, albuterol nebulized treatments in the outpatient setting. He presented here to the emergency room earlier this week and wastreated for pneumonia. He presented here again yesterday with worsening shortness of breath, cough and congestion. He had also been discharged home from here on 06/30/2022 following a COPD exacerbation. Since that time he had fallen at home and broken his right shoulder. It is currently in a sling. Chest x-ray shows left perihilar density. Underlying mass not excluded. today's chest x-ray shows persistent interstitial prominence throughout both lung brown. Left perihilar infiltrate/mass persist and is unchanged. He is seen today in consultation on the regular medical floor. He is currently sitting up in bed. Awake and alert. He is dyspneic with conversation. Dyspneic with minimal exertion. He is quite frail. He has a large protruding umbilical hernia noted. She had been turned up to 10 L high flow nasal cannula with O2 saturations at 95%. Currently down to 8 L at 92%. We are accepting of 88% or higher based on his poor lung function. He is currently afebrile. Hemodynamically stable. He's been initiated on DuoNeb inhalations, Pulmicort and Perforomist inhalations, home prednisone dose at 2.5 mg daily antibiotics in the form of ceftriaxone and azithromycin. White count 13.8. Hemoglobin 11.6. Sodium 133. Potassium 4.2. BUN 19. Creatinine 0.57. Glucose 125. Mack virus by PCR not detected. Influenza screen negative. Pro-calcitonin pending. Reevaluated today on 07/15/22, patient is feeling better, however he is still requiring 7 L of oxygen via nasal cannula, O2 saturation is fluctuating anywhere between 85% up to 98%. Clinically however the patient is feeling better, breathing a lot easier. WBC count is 9.2 hemoglobin is 9.5. Electrolytes are normal. Renal profile is normal. Pro-calcitonin level was minimally increased at 0.12, doubt clinical significance of pro-calcitonin level of 0.12. The patient is seen today 07/16/2022 in follow-up on the regular medical floor. He is currently resting fairly comfortably in bed. Awake and alert in no acute distress. Family is at the bedside. If he is currently maintaining O2 saturations in the low 90s on 7 L high flow nasal cannula. 0.9 normal saline at 30 MLS per hour. Blood cultures revealing no growth to date. White count 10.7. Hemoglobin 9.4. Platelets 297. Sodium 140. Potassium 4.7. BUN 15. Creatinine 0.5. Glucose 105. He is continued on DuoNeb inhalations, Pulmicort and Perforomist inhalations, IV Solu-Medrol. Antibiotics in the form of ceftriaxone. Morphine and [place] for pain control. The patient is seen today 07/17/2022 follow-up on the regular medical floor. He is awake and alert in no acute distress. Feeling a bit better today compared to yesterday. He is currently on 6 L high flow nasal cannula. He is working with PT/OT. To be up in a chair as tolerated. He is continued on DuoNeb inhalations, Pulmicort and Perforomist inhalations, IV Solu-Medrol. Antibiotics in the form of ceftriaxone. Morphine and [place] for pain control. The patient is seen today 07/18/2022 in follow-up on the regular medical floor. Today he is quite somnolent. He was restless and somewhat combative throughout the night. He did receive Ambien about 10 PM. He is arousable. He is taking his medications with applesauce. He is quite frail and cachectic. Currently on 7 L high flow nasal cannula with O2 saturations in the upper 90s. He is afebrile. Hemodynamically stable. Blood cultures reveal no growth. Urine culture pending. white count 10.5. Hemoglobin 10.8. Urinalysis with moderate bacteria. He is currently on ceftriaxone. He remains on DuoNeb inhalations, Pulmicort and Perforomist inhalations, IV Solu-Medrol. The patient is seen today 07/19/2022 in follow-up on the regular medical floor. He is much more awake and alert today. Oriented. Blood cultures reveal no growth. Urine culture revealed no growth. He remains on DuoNeb inhalations, Pulmicort and Perforomist inhalations, IV Solu-Medrol. The patient is seen today 07/20/2022 in follow-up on the regular medical floor. He is awake and alert in no acute distress this morning. He is maintaining O2 saturations in the mid 90s on 6 L/m per nasal cannula. He is afebrile. Hemodynamically stable. He does remain quite weak and frail. Blood cultures reveal no growth. Urine culture pending. No new labs today. He is continued on DuoNeb inhalations, Pulmicort and Perforomist inhalations, IV Solu-Medrol. The patient is seen today 07/21/2022 in follow-up on the regular medical floor. He is currently awake and alert, oriented. Occasional periods of confusion. Maintaining O2 saturations in the 90s on 6 L high flow nasal cannula. He's afebrile. He remains quite weak and debilitated. Blood cultures revealed no growth. Urine culture was positive for enterococcus fascia VRE. He is currently on daptomycin. He remains on bronchodilators, prednisone taper. Objective - Vital Signs Vital signs: Vital Signs Temp 98.0 F 07/21/22 14:00 Pulse 93 07/21/22 14:00 Resp 20 07/21/22 14:00 BP 94/53 07/21/22 14:00 Pulse Ox 91 L 07/21/22 14:00 FiO2 5 07/14/22 07:36 Intake & Output 07/20/22 07/21/22 07/21/22 18:59 06:59 18:59 Output Total 550 Balance -550 Weight 56.109 kg Output: Urine 550 Other: Voiding Method Diaper External Catheter External Catheter # Voids 6 - Exam GENERAL EXAM: Alert, pleasant 71-year-old male, frail, cachectic, on 6 L high flow nasal cannula, fairly comfortable in no apparent distress. HEAD: Normocephalic. EYES: Normal reaction of pupils, equal size. NOSE: Clear with pink turbinates. THROAT: No erythema or exudates. NECK: No masses, no JVD. CHEST: No chest wall deformity. LUNGS: Equal air entry with coarse crackles in the posterior bases. CVS: S1 and S2 normal with no audible murmur, regular rhythm. ABDOMEN: Large protruding umbilical hernia. No hepatosplenomegaly, normal bowel sounds, no guarding or rigidity. SPINE: Kyphosis SKIN: Ecchymosis of the right upper extremity No rashes CENTRAL NERVOUS SYSTEM: No focal deficits, tone is normal in all 4 extremities. EXTREMITIES: Fracture right shoulder currently in a sling. Changes of rheumatoid arthritis. There is no peripheral edema. - Labs CBC & Chem 7: 07/18/22 10:11 07/18/22 10:04 Labs: Abnormal Lab Results - Last 24 Hours (Table) 07/20/22 Range/Units 20:00 Urine Blood Small H (Negative) Ur Leukocyte Esterase Large H (Negative) Urine RBC 9 H (0-5) /hpf Urine WBC 73 H (0-5) /hpf Uric Acid Crystals Rare H (None) /hpf Urine Bacteria Many H (None) /hpf Urine Mucus Occasional H (None) /hpf Microbiology - Last 24 Hours (Table) 07/20/22 20:00 Urine Culture - Preliminary Urine,Voided 07/17/22 18:00 Urine Culture - Final Urine,Voided Enterococcus faecium VRE Assessment and Plan Assessment: Acute on chronic hypoxemic respiratory failure, secondary to COPD exacerbation, and complicated by left-sided pneumonia. Chronic left upper lobe infiltrate/mass. Could not rule out neoplasm however the patient is to frail for any intervention or biopsies History of severe oxygen-dependent, steroid dependent COPD. Pulmonary fibrosis, suspect secondary to rheumatoid arthritis. Urinary tract infection secondary to enterococcus faecium VRE, currently on daptomycin. Recent fall with fracture to the right upper extremity. History of CHF. History of hyperlipidemia. History of osteoarthritis. History of rheumatoid arthritis. History of sleep apnea syndrome, maintained on CPAP. History of perforated duodenal ulcer. History of anxiety/depression. Previous history of heavy tobacco use. Poor overall functional status based on the above-mentioned multiple comorbidities. Plan: The patient was seen and evaluated More awake and alert today Medications reviewed Titrate down the FiO2 as tolerated, currently on 6 L high flow nasal cannula Plan is for home with palliative care I have personally seen and examined the patient, performed the documentation and the assessment and plan as written. Number of minutes spent on the visit: 10.
[2022-07-21] MEDS ORDERED: ALPRAZolam 0.25 MG TAB PO PRN (16:32)
[2022-07-21] MEDS ORDERED: ALPRAZolam 0.25 MG TAB PO STA (17:56)
[2022-07-21] MEDS ORDERED: ALPRAZolam 0.5 MG TAB PO PRN (17:56)
[2022-07-21] MEDS: AMITRIPTYLINE HCL 10 MG TAB PO SCH (20:58)
--- NOTE | 2022-07-22 03:22 | PN ---
PROGRESS NOTE DATE OF SERVICE: 07/21/2022 SUBJECTIVE: This 71-year-old gentleman, who was admitted with acute hypoxic respiratory failure also had multiple other medical issues. Family is planning palliative care at home probably on Saturday. No chest pain. No palpitation. PHYSICAL EXAMINATION: VITAL SIGNS: Pulse is 93, blood pressure n, respirations 20. HEENT: Conjunctivae normal. NECK: No JVD. CARDIOVASCULAR: S1, S2. RESPIRATIONS: Few scattered rhonchi. ABDOMEN: Soft. NERVOUS SYSTEM: No focal deficits. LABS: Reviewed. ASSESSMENT: 1. Acute urinary tract infection with Vancomycin-resistant Enterococci. 2. Chronic obstructive pulmonary disease acute exacerbation. 3. History of pneumonia. 4. Multiple medical issues. 5. NO CODE, NO CPR. RECOMMENDATIONS: Recommended to continue current medical management and symptomatic treatment. Continue with bronchodilators, rest of medications, and plan for palliative care on Saturday. MMODL / IJN: [id number] / MTDD
[2022-07-22] MEDS: PANTOPRAZOLE 40 MG TABLET PO SCH (06:32)
[2022-07-22] MEDS: IPRATROPIUM-ALBUTEROL 3 ML NEB INHALATION SCH ×4 (07:34→21:14)
[2022-07-22] MEDS: SYMBICORT 160-4.5 MCG INHALER INHALATION SCH ×2 (07:34→21:14)
[2022-07-22] MEDS: HYDROcodone/APAP 7.5-325MG 1 EACH TAB PO PRN (08:53)
[2022-07-22] MEDS: CLOPIDOGREL 75 MG TAB PO SCH (08:54)
[2022-07-22] MEDS: SERTRALINE 50 MG TAB PO SCH (08:54)
[2022-07-22] MEDS: predniSONE 20 MG TAB PO SCH (08:54)
[2022-07-22] MEDS: CHOLECALCIFEROL 25 MCG (1000 IU) TABLET PO SCH (08:54)
[2022-07-22] MEDS: METOPROLOL SUCCINATE (ER) 25 MG TAB.ER.24H PO SCH (08:54)
[2022-07-22] MEDS ORDERED: SODIUM CHLORIDE 0.9% 500 ML 250 ML IV ONE (13:53)
[2022-07-22] MEDS: methylPREDNISolone SOD SUCCI 125 MG/2 ML VIAL IV SCH ×2 (14:16→18:34)
[2022-07-22] MEDS ORDERED: SCOPOLAMINE 1 MG/72 HR PATCH TRANSDERM SCH (16:15)
--- NOTE | 2022-07-22 16:40 | P.PN ---
Subjective Progress Note Date: 07/22/22 Principal diagnosis: Pneumonia/sepsis. The patient is seen today 07/18/2022 in follow-up on the regular medical floor. Today he is quite somnolent. He was restless and somewhat combative throughout the night. He did receive Ambien about 10 PM. He is arousable. He is taking his medications with applesauce. He is quite frail and cachectic. Currently on 7 L high flow nasal cannula with O2 saturations in the upper 90s. He is afebrile. Hemodynamically stable. Blood cultures reveal no growth. Urine culture pending. white count 10.5. Hemoglobin 10.8. Urinalysis with moderate bacteria. He is currently on ceftriaxone. He remains on DuoNeb inhalations, Pulmicort and Perforomist inhalations, IV Solu-Medrol. The patient is seen today 07/19/2022 in follow-up on the regular medical floor. He is much more awake and alert today. Oriented. Blood cultures reveal no sebas wth. Urine culture revealed no growth. He remains on DuoNeb inhalations, Pulmicort and Perforomist inhalations, IV Solu-Medrol. The patient is seen today 07/20/2022 in follow-up on the regular medical floor. He is awake and alert in no acute distress this morning. He is maintaining O2 saturations in the mid 90s on 6 L/m per nasal cannula. He is afebrile. Hemodynamically stable. He does remain quite weak and frail. Blood cultures reveal no growth. Urine culture pending. No new labs today. He is continued on DuoNeb inhalations, Pulmicort and Perforomist inhalations, IV Solu-Medrol. The patient is seen today 07/21/2022 in follow-up on the regular medical floor. He is currently awake and alert, oriented. Occasional periods of confusion. Maintaining O2 saturations in the 90s on 6 L high flow nasal cannula. He's afebrile. He remains quite weak and debilitated. Blood cultures revealed no growth. Urine culture was positive for enterococcus fascia VRE. He is currently on daptomycin. He remains on bronchodilators, prednisone taper. Progress note dated 07/22/2022. The patient is seen today in room 455. He remains on nasal cannula at 6 L. The patient feels about the same today as he has a last couple of days. He is a bit confused. He is very debilitated. He denies any worsening shortness of breath. He denies any pain. Urine culture was positive for enterococcus faecium. No recent laboratory data to speak of. No recent chest x-ray. Labs, x-rays, and medications are reviewed. Objective - Vital Signs Vital signs: Vital Signs Temp 97.3 F L 07/22/22 14:00 Pulse 88 07/22/22 16:13 Resp 21 07/22/22 14:00 BP 84/47 07/22/22 14:00 Pulse Ox 96 07/22/22 15:59 FiO2 5 07/14/22 07:36 Intake & Output 07/21/22 07/22/22 07/22/22 18:59 06:59 18:59 Output Total 350 600 Balance -350 -600 Output: Urine 350 600 Other: Voiding Method External Catheter External Catheter External Catheter - Exam No acute distress, a bit confused, very frail, in no distress. Currently on 6 L of oxygen. HEENT examination is grossly unremarkable. Neck supple. Full range of motion. No adenopathy thyromegaly or neck vein distention. Cardiovascular examination reveals regular rhythm rate. S1-S2 normal. No S3 or S4. No discernible murmur noted. Heart rate 92 bpm. Heart sounds are distant. Lungs reveal scattered bilateral rhonchi. Mild expiratory wheezes. No crackles. Breath sounds equal bilaterally. Abdomen soft bowel sounds are heard. No masses or tenderness. Extremities are intact. No cyanosis clubbing or edema. Also, ecchymoses of the right upper extremity. Skin reveals multiple areas of ecchymoses. Neurologic examination is brief but nonfocal. - Labs CBC & Chem 7: 07/18/22 10:11 07/18/22 10:04 Labs: Microbiology - Last 24 Hours (Table) 07/20/22 20:00 Urine Culture - Preliminary Urine,Voided Group D Enterococcus Assessment and Plan Assessment: Acute on chronic hypoxemic respiratory failure, secondary to COPD exacerbation, and complicated by left-sided pneumonia. Chronic left upper lobe infiltrate/mass. Could not rule out neoplasm however the patient is to frail for any intervention or biopsies. History of severe oxygen-dependent, steroid dependent COPD. Pulmonary fibrosis, suspect secondary to rheumatoid arthritis. Urinary tract infection secondary to enterococcus faecium VRE, currently on daptomycin. Recent fall with fracture to the right upper extremity. History of CHF. History of hyperlipidemia. History of osteoarthritis. History of rheumatoid arthritis. History of sleep apnea syndrome, maintained on CPAP. History of perforated duodenal ulcer. History of anxiety/depression. Previous history of heavy tobacco use. Poor overall functional status based on the above-mentioned multiple natan rbidities. Plan: Plan dated 07/22/2022. The patient is doing about the same. He is currently on 6 L of oxygen. The patient was initially sleeping when I first went into the room. He arouses, and is very talkative. He does seem a bit confused. Plan is for home with palliative care. Hopeful discharge in the next 24-48 hours. Additional recommendations and suggestions are forthcoming. The patient is currently on daptomycin for his urinary tract infection. Signed Medrol can be discontinued in favor of prednisone 30 mg a day. Time with Patient: Less than 30
[2022-07-22] MEDS: AMITRIPTYLINE HCL 10 MG TAB PO SCH (22:09)
--- NOTE | 2022-07-22 22:38 | P.PN ---
Subjective Progress Note Date: 07/21/22 Principal diagnosis: VRE urinary tract infection Patient is a 71-year-old male with multiple comorbidities including end-stage COPD presented to the hospital with increasing shortness of breath patient also has some difficulty urination as well as burning positive UA and urine has been finalized with VRE. On today's evaluation that is 07/21/2022 the patient denies having any fever or any chills he is breathing comfortably on nasal cannula oxygen denies any chest pain no worsening cough or sputum production no abdominal pain no diarrhea Objective - Vital Signs Vital signs: Vital Signs Temp 98.2 F 07/21/22 07:27 Pulse 88 07/21/22 11:14 Resp 17 07/21/22 07:27 BP 94/59 07/21/22 07:27 Pulse Ox 95 07/21/22 07:27 FiO2 5 07/14/22 07:36 Intake & Output 07/20/22 07/21/22 07/21/22 18:59 06:59 18:59 Output Total 550 Balance -550 Weight 56.109 kg Output: Urine 550 Other: Voiding Method Diaper External Catheter External Catheter # Voids 6 - Exam GENERAL DESCRIPTION: An elderly male lying in bed in no distress RESPIRATORY SYSTEM: Unlabored breathing , decreased breath sounds at bases HEART: S1 S2 regular rate and rhythm , ABDOMEN: Soft , no tenderness EXTREMITIES: No edema feet - Labs CBC & Chem 7: 07/18/22 10:11 07/18/22 10:04 Labs: Abnormal Lab Results - Last 24 Hours (Table) 07/20/22 Range/Units 20:00 Urine Blood Small H (Negative) Ur Leukocyte Esterase Large H (Negative) Urine RBC 9 H (0-5) /hpf Urine WBC 73 H (0-5) /hpf Uric Acid Crystals Rare H (None) /hpf Urine Bacteria Many H (None) /hpf Urine Mucus Occasional H (None) /hpf Microbiology - Last 24 Hours (Table) 07/20/22 20:00 Urine Culture - Preliminary Urine,Voided 07/17/22 18:00 Urine Culture - Final Urine,Voided Enterococcus faecium VRE Assessment and Plan (1) Urinary tract infection Current Visit: Yes Status: Acute Code(s): N39.0 - URINARY TRACT INFECTION, SITE NOT SPECIFIED SNOMED Code(s): 28562358 Plan: 1patient with a positive UA subsequent urine culture positive for VRE in this patient does give a history of burning of urine but no significant suprapubic or flank pain question of possible cystitis. 2repeat UA is positive and urine culture are currently pending. 3patient to continue with daptomycin 4 mg/kg daily while waiting for repeat urine to be finalized. Time with Patient: Less than 30
--- NOTE | 2022-07-22 22:41 | P.PN ---
Subjective Progress Note Date: 07/22/22 Principal diagnosis: VRE urinary tract infection Patient is a 71-year-old male with multiple comorbidities including end-stage COPD presented to the hospital with increasing shortness of breath patient also has some difficulty urination as well as burning positive UA and urine has been finalized with VRE. On today's evaluation that is 07/22/2022 the patient remains to be afebrile, the patient is sleepy and lethargic today and is currently on 7L nasal cannula oxygen, the patient was unable to provide any history and no vomiting or diarrhea has been reported Objective - Vital Signs Vital signs: Vital Signs Temp 97.8 F 07/22/22 20:00 Pulse 90 07/22/22 21:25 Resp 22 07/22/22 20:00 BP 89/58 07/22/22 20:00 Pulse Ox 96 07/22/22 15:59 FiO2 5 07/14/22 07:36 Intake & Output 07/22/22 07/22/22 07/23/22 06:59 18:59 06:59 Output Total 600 Balance -600 Output: Urine 600 Other: Voiding Method External Catheter External Catheter # Voids 2 - Exam GENERAL DESCRIPTION: An elderly male lying in bed in no distress RESPIRATORY SYSTEM: Unlabored breathing , decreased breath sounds at bases HEART: S1 S2 regular rate and rhythm , ABDOMEN: Soft , no tenderness EXTREMITIES: No edema feet - Labs CBC & Chem 7: 07/18/22 10:11 07/18/22 10:04 Labs: Microbiology - Last 24 Hours (Table) 07/20/22 20:00 Urine Culture - Preliminary Urine,Voided Group D Enterococcus Assessment and Plan (1) Urinary tract infection Current Visit: Yes Status: Acute Code(s): N39.0 - URINARY TRACT INFECTION, SITE NOT SPECIFIED SNOMED Code(s): 36999044 Plan: 1patient with a positive UA subsequent urine culture positive for VRE in this patient does give a history of burning of urine but no significant suprapubic or flank pain question of possible cystitis. 2repeat UA is positive and urine culture are currently pending. 3patient did has slight worsening of his respiratory status and family's concern of possible hospice for now patient to continue with daptomycin 4 mg/kg daily however antibiotic can be safely discontinue once switch to hospice Time with Patient: Less than 30
[2022-07-23] MEDS: methylPREDNISolone SOD SUCCI 125 MG/2 ML VIAL IV SCH ×2 (00:38→06:54)
--- NOTE | 2022-07-23 04:29 | PN ---
PROGRESS NOTE DATE OF SERVICE: 07/22/2022 SUBJECTIVE: This 71-year-old gentleman who was admitted with acute UTI, also had COPD exacerbation. Patient has significant difficulty in breathing also, anxiety episodes, also. The family is originally planning palliative care, but at this time family seems to be wanting hospice care at home Patient is also hypotensive. PAST MEDICAL HISTORY: Reviewed. REVIEW OF SYSTEMS: Could not be taken. CURRENT MEDICATIONS: Reviewed include DuoNeb. Dose and rest of medication noted. PHYSICAL EXAMINATION: VITAL SIGNS: The pulse is 90, blood pressure 94/59, respiratory rate 20. HEENT: Conjunctivae normal. NECK: No JVD. CARDIOVASCULAR: S1, S2 muffled. RESPIRATIONS: Bilateral scattered rhonchi and crackles. Expiratory wheezing. ABDOMEN: Soft. NERVOUS SYSTEM: No focal deficits. LABS: Noted. ASSESSMENT: 1. Acute urinary tract infection with vancomycin-resistant enterococci. 2. Chronic obstructive pulmonary disease acute exacerbation. 3. History of pneumonia. 4. Multiple medical issues. 5. NO CODE, NO CPR, NO VENT. RECOMMENDATIONS: This patient with multiple medical issues as mentioned earlier, I would recommend continue the current medications. I would recommend to hold the blood pressure medications and also initiate bolus, steroids, bronchodilators. Continue the rest of medication. The patient is currently NO CODE, NO CPR, NO VENT. As mentioned earlier, patient with the family would like to take the patient home with home hospice on Saturday. We will talk with apartment hotel manager and discharge planning team. Prognosis extremely guarded. Further recommendations to follow. SIMIN / JULIETTE: [id number] / BRIANNA
[2022-07-23] MEDS: PANTOPRAZOLE 40 MG TABLET PO SCH (06:49)
[2022-07-23] MEDS: SYMBICORT 160-4.5 MCG INHALER INHALATION SCH (07:37)
[2022-07-23] MEDS: IPRATROPIUM-ALBUTEROL 3 ML NEB INHALATION SCH (07:37)
[2022-07-23] MEDS: CLOPIDOGREL 75 MG TAB PO SCH (07:54)
[2022-07-23] MEDS: CHOLECALCIFEROL 25 MCG (1000 IU) TABLET PO SCH (07:54)
[2022-07-23] MEDS: SERTRALINE 50 MG TAB PO SCH (07:54)
[2022-07-23 08:23] VITALS: BP 93/55; PULSE 87; RESP 20; TEMP 98
[2022-07-23] MEDS: MORPHINE SULFATE 4 MG/ML SYRINGE IVP PRN (09:30)
--- NOTE | 2022-07-24 10:04 | P.DS ---
Providers Date of admission: 07/13/22 14:36 Expected date of discharge: 07/23/22 Attending physician: Ira Steinberg Consults: 07/13/22 14:36 Consult Physician Routine Consulting Provider: aGbbie Santos Consult Reason/Comments: dyspnea Do you want consulting provider notified?: Yes 07/20/22 16:01 Consult Physician Urgent Consulting Provider: Gomez Sharma Consult Reason/Comments: vre in urine culture Do you want consulting provider notified?: Yes Primary care physician: Razia Holbrook Hospital Course: Final diagnosis Acute urinary tract infection, with vancomycin-resistant enterococci, present on admission Chronic obstructive pulmonary disease, acute exacerbation History of pneumonia History of heart failure Hyperlipidemia Osteoarthritis Rheumatoid arthritis Sleep apnea with a CPAP Anxiety/depression No code Discharge disposition Patient is being discharged in a stable condition with guarded prognosis to with hospice services. Patient will follow-up with Dr. Holbrook in the outpatient setting upon discharge. Patient is to follow with pulmonary in the outpatient setting. Patient will continue a prednisone taper and also breathing treatments. Total time taken is greater than 35 minutes. Hospital course This is a 71-year-old male who was recently admitted with acute urinary tract infection also COPD acute exacerbation of being closely monitored. Patient had prolonged hospitalization with multiple medical consultations following. Patient has worsening shortness of breath and family discussed palliative versus hospice and would like to go home with hospice and being arranged for today. [facility] is following and working on discharge planning. Currently no reports of chest pain, worsening shortness of breath, or palpitations. Patient is afebrile. No reports of nausea or vomiting and patient is tolerating diet. Patient will be discharged home with hospice services today. Guarded prognosis. Physical exam: Gen: This is a 71-year-old male alert and oriented 3, ill-appearing, elderly appearing male HEENT: Head is atraumatic, normocephalic. Pupils equal, round. Sclerae is anicteric. NECK: Supple. No JVD. No lymphadenopathy. No thyromegaly. LUNGS: Diminished breath sounds bilaterally with some scattered rhonchi and crackles noted. Expiratory wheezing noted as well No intercostal retractions. HEART: S1, S2 are muffled ABDOMEN: Soft. Bowel sounds are present. No masses. No tenderness. EXTREMITIES: No pedal edema. No calf tenderness. NEUROLOGICAL: Patient is awake, alert and oriented x3. Cranial nerves 2 through 12 are grossly intact. Please refer to medication reconciliation sheet for a list of medications. The impression and plan of care has been dictated by Promise Garcia, Nurse Practitioner as directed. Dr. Dinesh MD I have performed a history and examination and MDM of this patient, discussed the same with the dictator, and agree with the dictator's assessment and plan as written ,documented as a scribe. Based on total visit time, I have performed more than 50% of the visit. Patient Condition at Discharge: Fair Plan - Discharge Summary Discharge Rx Participant: Yes New Discharge Prescriptions: New predniSONE 10 mg PO DIRECTED #50 tab Budesonide-Formot 160-4.5 Mcg [Symbicort 160-4.5 Mcg Inhaler] 2 puff INHALATION RT-BID #1 each Albuterol Inhaler [Ventolin Hfa Inhaler] 1 - 2 puff INHALATION Q6H PRN #1 each PRN Reason: Shortness Of Breath Or Wheezing Docusate [Colace] 100 mg PO BID PRN 10 Days #20 cap PRN Reason: Constipation HYDROcodone/APAP 5-325MG [[place] 5-325] 1 tab PO Q8HR PRN 3 Days #10 tab PRN Reason: Severe Breakthrough Pain Continue Metoprolol Succinate [Toprol XL] 25 mg PO DAILY Sertraline [Zoloft] 150 mg PO DAILY Clopidogrel [Plavix] 75 mg PO DAILY #14 tab Fluticasone Nasal [place] [Flonase Nasal [place]] 1 spr EA NOSTRIL BID PRN PRN Reason: Congestion Alendronate Sodium [Fosamax] 70 mg PO MO Atorvastatin [Lipitor] 40 mg PO HS predniSONE 2.5 mg PO DAILY Amitriptyline HCl [Elavil] 10 mg PO HS Omeprazole 40 mg PO DAILY Budesonide [Pulmicort] 0.5 mg INHALATION RT-BID Docusate [Colace] 100 mg PO DAILY PRN PRN Reason: Constipation Cholecalciferol (Vitamin D3) [Vitamin D3 (3000 Iu)] 75 mcg PO DAILY Discontinued L.acidoph,Paracasei, B.lactis [Probiotic] 1 cap PO DAILY Discharge Medication List Metoprolol Succinate [Toprol XL] 25 mg PO DAILY 01/12/20 [History] Sertraline [Zoloft] 150 mg PO DAILY 01/12/20 [History] Amitriptyline HCl [Elavil] 10 mg PO HS 12/06/20 [History] Clopidogrel [Plavix] 75 mg PO DAILY #14 tab 12/13/20 [Rx] Fluticasone Nasal [place] [Flonase Nasal [place]] 1 spr EA NOSTRIL BID PRN 07/10/21 [History] Alendronate Sodium [Fosamax] 70 mg PO MO 03/03/22 [History] Atorvastatin [Lipitor] 40 mg PO HS 03/03/22 [History] Omeprazole 40 mg PO DAILY 03/03/22 [History] predniSONE 2.5 mg PO DAILY 03/03/22 [History] Budesonide [Pulmicort] 0.5 mg INHALATION RT-BID 06/27/22 [History] Cholecalciferol (Vitamin D3) [Vitamin D3 (3000 Iu)] 75 mcg PO DAILY 07/13/22 [History] Docusate [Colace] 100 mg PO DAILY PRN 07/13/22 [History] Albuterol Inhaler [Ventolin Hfa Inhaler] 1 - 2 puff INHALATION Q6H PRN #1 each 07/20/22 [Rx] Budesonide-Formot 160-4.5 Mcg [Symbicort 160-4.5 Mcg Inhaler] 2 puff INHALATION RT-BID #1 each 07/20/22 [Rx] Docusate [Colace] 100 mg PO BID PRN 10 Days #20 cap 07/20/22 [Rx] HYDROcodone/APAP 5-325MG [[place] 5-325] 1 tab PO Q8HR PRN 3 Days #10 tab 07/20/22 [Rx] predniSONE 10 mg PO DIRECTED #50 tab 07/20/22 [Rx] Follow up Appointment(s)/Referral(s): Gabbie Santos MD [STAFF PHYSICIAN] - 1 Week Razia Holbrook MD [Primary Care Provider] - 1-2 days Silvia Hernandez [NON-STAFF] - As Needed Patient Instructions/Handouts: Hospice (DC) Activity/Diet/Wound Care/Special Instructions: Discharge Disposition: HOME WITH HOSPICE
== END 2022-07-23 09:51 | disposition hospice, home (50) | DRG 193 ==
LOC: EC 13:19 → 4SSUR 14:36
PROVIDERS: ADMIT Internal Medicine; ATTEND Internal Medicine
DX: J18.9 Pneumonia, unspecified organism (principal); J96.21 Acute and chronic respiratory failure with hypoxia; R64 Cachexia; I50.32 Chronic diastolic (congestive) heart failure; J44.1 Chronic obstructive pulmonary disease with (acute) exacerbation; J44.0 Chronic obstructive pulmonary disease with (acute) lower respiratory infection; Z16.21 Resistance to vancomycin; N39.0 Urinary tract infection, site not specified; I95.9 Hypotension, unspecified; J84.10 Pulmonary fibrosis, unspecified; M06.9 Rheumatoid arthritis, unspecified; Z66 Do not resuscitate; Z51.5 Encounter for palliative care; Z20.822 Contact with and (suspected) exposure to COVID-19; B95.2 Enterococcus as the cause of diseases classified elsewhere; E78.5 Hyperlipidemia, unspecified; G47.33 Obstructive sleep apnea (adult) (pediatric); K42.9 Umbilical hernia without obstruction or gangrene; S42.201D Unspecified fracture of upper end of right humerus, subsequent encounter for fracture with routine healing; G89.29 Other chronic pain; M48.00 Spinal stenosis, site unspecified; M19.90 Unspecified osteoarthritis, unspecified site; F32.A Depression, unspecified; F41.9 Anxiety disorder, unspecified; Z99.81 Dependence on supplemental oxygen; Z79.83 Long term (current) use of bisphosphonates; Z79.51 Long term (current) use of inhaled steroids; Z79.02 Long term (current) use of antithrombotics/antiplatelets; Z79.52 Long term (current) use of systemic steroids; Z79.1 Long term (current) use of non-steroidal anti-inflammatories (NSAID); Z79.899 Other long term (current) drug therapy; Z87.891 Personal history of nicotine dependence; Z87.01 Personal history of pneumonia (recurrent); W19.XXXD Unspecified fall, subsequent encounter; Z88.0 Allergy status to penicillin; Y92.009 Unspecified place in unspecified non-institutional (private) residence as the place of occurrence of the external cause
CPT/HCPCS: 36415; 71045; 71046; 80048; 80053; 81001; 83605; 84145; 85025; 85610; 85730; 87040; 87077; 87086; 87186; 87502; 87634; 87635; 93005; 94640; 94760; 96361; 96365; 96368; 99291